=== PATIENT | male | born 1955 | race Asian ===

== ENCOUNTER → 2016-07-28 | Outpatient (CLI) | payer BC ==
[~2016-07-28] MED LIST: AUG875 PO; BENA5TAB2 PO; CARV3.1260 PO; FURO80TA3 PO; INSU100V18 SC; LACT20SO2 PO; NIFE30TA PO
[2016-07-28 09:40] LABS: BASOPHIL # 0.1 10^3/ul (0.0-0.1); BASOPHILS % 0.9 % (0.0-2.0); EOSINOPHILS # 0.4 10^3/ul (0.0-0.5); EOSINOPHILS % 5.9 % (0.0-7.0); HEMATOCRIT 30.1 % (42.0-52.0); HEMOGLOBIN 9.4 g/dl (14.0-18.0); LYMPHOCYTES # 1.7 10^3/ul (0.8-2.9); LYMPHOCYTES % 22.7 % (15.0-51.0); MEAN CORPUSCULAR HGB CONC 31.3 g/dl (32.0-37.0); MEAN CORPUSCULAR VOLUME 76.8 fl (82.0-101.0); MEAN PLATELET VOLUME 9.2 fl (7.4-10.4); MONOCYTE # 0.6 10^3/ul (0.3-0.9); MONOCYTES % 7.5 % (0.0-11.0); NEUTROPHIL # 4.7 10^3/ul (1.6-7.5); PLATELET COUNT 161 10^3/UL (140-440); RED BLOOD COUNT 3.92 10^6/ul (4.70-6.10); RED CELL DISTRIBUTION WIDTH 26.3 % (11.5-14.5); UNCORRECTED WBC 7.4 10^3/ul (4.8-10.8); WHITE BLOOD COUNT 7.4 10^3/ul (4.8-10.8)
[2016-07-28 09:43] LABS: ALBUMIN 3.5 g/dl (3.3-4.9)
[2016-07-28 09:44] LABS: CONDITION 1; LH ANALYZER COMMENTS 1; POTASSIUM 4.5 mmol/L (3.5-5.1); SUSPECT 1
[2016-07-28 09:46] LABS: ALBUMIN/GLOBULIN RATIO 0.7; BILIRUBIN,INDIRECT 0.5 mg/dl (0-1.1); BILIRUBIN,TOTAL 0.5 mg/dl (0.2-1.3); CREATININE 1.72 mg/dl (0.61-1.24); TOTAL PROTEIN 8.5 g/dl (6.1-8.1)
[2016-07-28 09:47] LABS: CALCIUM 8.8 mg/dl (8.4-10.2)
[2016-07-28 11:33] LABS: FERRITIN 22.6 ng/ml (11.1-264.0)
== END | disposition home or self-care (01) ==
LOC: LAB 09:07
PROVIDERS: ATTEND Internal Medicine
DX: D64.89 Other specified anemias (principal); E11.9 Type 2 diabetes mellitus without complications
CPT/HCPCS: 80053; 82607; 82728; 82746; 85025

== ENCOUNTER → 2016-08-29 | Outpatient (CLI) | payer BC ==
[~2016-08-29] MED LIST changes: -NIFE30TA PO; +NIFE30TA43 PO
[2016-08-29 08:26] LABS: BASOPHILS % 0.2 % (0.0-2.0); EOSINOPHILS # 0.5 10^3/ul (0.0-0.5); EOSINOPHILS % 7.3 % (0.0-7.0); HEMATOCRIT 27.5 % (42.0-52.0); HEMOGLOBIN 8.9 g/dl (14.0-18.0); LYMPHOCYTES # 1.6 10^3/ul (0.8-2.9); LYMPHOCYTES % 22.4 % (15.0-51.0); MEAN CORPUSCULAR HEMOGLOBIN 24.6 pg (29.0-33.0); MEAN CORPUSCULAR HGB CONC 32.5 g/dl (32.0-37.0); MEAN CORPUSCULAR VOLUME 75.6 fl (82.0-101.0); MEAN PLATELET VOLUME 8.9 fl (7.4-10.4); MONOCYTE # 0.6 10^3/ul (0.3-0.9); MONOCYTES % 8.6 % (0.0-11.0); NEUTROPHIL # 4.4 10^3/ul (1.6-7.5); NEUTROPHILS % 61.5 % (39.0-77.0); PLATELET COUNT 163 10^3/UL (140-440); RED BLOOD COUNT 3.64 10^6/ul (4.70-6.10); UNCORRECTED WBC 7.1 10^3/ul (4.8-10.8); WHITE BLOOD COUNT 7.1 10^3/ul (4.8-10.8)
[2016-08-29 08:40] LABS: ALBUMIN 3.3 g/dl (3.3-4.9)
[2016-08-29 08:43] LABS: ALBUMIN/GLOBULIN RATIO 0.71; BILIRUBIN,INDIRECT 0.3 mg/dl (0-1.1); BILIRUBIN,TOTAL 0.3 mg/dl (0.2-1.3); CREATININE 1.85 mg/dl (0.61-1.24); POTASSIUM 4.2 mmol/L (3.5-5.1); TOTAL PROTEIN 7.9 g/dl (6.1-8.1)
[2016-08-29 08:44] LABS: CALCIUM 8.5 mg/dl (8.4-10.2)
[2016-08-29 09:00] LABS: CONDITION 1; LH ANALYZER COMMENTS 1
[2016-08-29 09:13] LABS: ADD UMIC YES; URINE BILIRUBIN (Dip) NEGATIVE (NEGATIVE); URINE BLOOD (Dip) 1+ (NEGATIVE); URINE COLOR LT. YELLOW (YELLOW); URINE KETONES (Dip) NEGATIVE (NEGATIVE); URINE LEUKOCYTE ESTERASE (Dip) NEGATIVE (NEGATIVE); URINE NITRITE (Dip) NEGATIVE (NEGATIVE); URINE TOTAL PROTEIN (Dip) 4+ (NEGATIVE); URINE UROBILINOGEN (Dip) 0.2 E.U./dL (0.1-1.0)
[2016-08-29 09:18] LABS: FERRITIN 16.1 ng/ml (11.1-264.0)
[2016-08-29 09:29] LABS: BACTERIA,URINE RARE; URINE RBCS 0-2 /HPF (0)
[2016-08-29 09:48] LABS: FOLATE 9.1 ng/ml (2.8-20.0)
== END | disposition home or self-care (01) ==
LOC: LAB 07:52
PROVIDERS: ATTEND Internal Medicine
DX: D50.9 Iron deficiency anemia, unspecified (principal); E11.9 Type 2 diabetes mellitus without complications
CPT/HCPCS: 80053; 81001; 81003; 82607; 82728; 82746; 85025

== ENCOUNTER → 2016-09-17 | Outpatient (CLI) | payer BC ==
[2016-09-17 08:20] LABS: ADD SCAN DIFF NO
[2016-09-17 08:37] LABS: ALBUMIN 3.1 g/dl (3.3-4.9)
[2016-09-17 08:38] LABS: POTASSIUM 3.9 mmol/L (3.5-5.1)
[2016-09-17 08:40] LABS: ALBUMIN/GLOBULIN RATIO 0.68; BILIRUBIN,INDIRECT 0.3 mg/dl (0-1.1); BILIRUBIN,TOTAL 0.3 mg/dl (0.2-1.3); CREATININE 1.7 mg/dl (0.61-1.24); TOTAL PROTEIN 7.6 g/dl (6.1-8.1)
[2016-09-17 08:41] LABS: CALCIUM 8.2 mg/dl (8.4-10.2)
[2016-09-17 09:43] LABS: ABNORMAL IP MESSAGE 1; BASOPHILS % 0.5 % (0.0-2.0); EOSINOPHILS # 0.5 10^3/ul (0.0-0.5); EOSINOPHILS % 6.9 % (0.0-7.0); HEMOGLOBIN 7.8 g/dl (14.0-18.0); LYMPHOCYTES # 1.4 10^3/ul (0.8-2.9); LYMPHOCYTES % 19.2 % (15.0-51.0); MEAN CORPUSCULAR HEMOGLOBIN 23.9 pg (29.0-33.0); MEAN CORPUSCULAR HGB CONC 28.9 g/dl (32.0-37.0); MEAN CORPUSCULAR VOLUME 82.6 fl (82.0-101.0); MONOCYTE # 0.6 10^3/ul (0.3-0.9); MONOCYTES % 8.2 % (0.0-11.0); NEUTROPHIL # 4.7 10^3/ul (1.6-7.5); NEUTROPHILS % 64.7 % (39.0-77.0); PLATELET COUNT 128 10^3/UL (140-415); RED BLOOD COUNT 3.27 10^6/ul (4.70-6.10); RED CELL DISTRIBUTION WIDTH 21.4 % (11.5-14.5); WHITE BLOOD COUNT 7.3 10^3/ul (4.8-10.8)
== END | disposition home or self-care (01) ==
LOC: LAB 07:48
PROVIDERS: ATTEND Internal Medicine
DX: D64.9 Anemia, unspecified (principal); E11.9 Type 2 diabetes mellitus without complications
CPT/HCPCS: 80053; 85025

== ENCOUNTER 2016-10-24 10:00 | Inpatient (IN) | payer BC ==
[~2016-10-24] VITALS: Ht 180.3 cm; Wt 134.0 kg
[2016-10-24] MEDS ORDERED: SIMV20TA PO (10:58)
[2016-10-24] MEDS ORDERED: INSU100V3 IJ (10:59)
[2016-10-24] MEDS ORDERED: FUROSEMIDE 40 MG INJ IV ONE (11:00)
[2016-10-24 11:23] LABS: ADD SCAN DIFF NO
[2016-10-24 11:26] LABS: ABNORMAL IP MESSAGE 1; BASOPHILS % 0.6 % (0.0-2.0); EOSINOPHILS # 0.4 10^3/ul (0.0-0.5); EOSINOPHILS % 6.9 % (0.0-7.0); HEMATOCRIT 27.7 % (42.0-52.0); LYMPHOCYTES % 18.7 % (15.0-51.0); MEAN CORPUSCULAR HEMOGLOBIN 26.4 pg (29.0-33.0); MEAN CORPUSCULAR HGB CONC 28.9 g/dl (32.0-37.0); MEAN CORPUSCULAR VOLUME 91.4 fl (82.0-101.0); MEAN PLATELET VOLUME 11.8 fl (7.4-10.4); MONOCYTE # 0.6 10^3/ul (0.3-0.9); MONOCYTES % 12.2 % (0.0-11.0); NEUTROPHIL # 3.1 10^3/ul (1.6-7.5); NEUTROPHILS % 61.2 % (39.0-77.0); PLATELET COUNT 115 10^3/UL (140-415); RED BLOOD COUNT 3.03 10^6/ul (4.70-6.10); RED CELL DISTRIBUTION WIDTH 21.5 % (11.5-14.5); WHITE BLOOD COUNT 5.1 10^3/ul (4.8-10.8)
[2016-10-24 11:32] LABS: ADD UMIC YES; URINE BILIRUBIN (Dip) NEGATIVE (NEGATIVE); URINE BLOOD (Dip) TRACE (NEGATIVE); URINE COLOR LT. YELLOW (YELLOW); URINE KETONES (Dip) NEGATIVE (NEGATIVE); URINE LEUKOCYTE ESTERASE (Dip) NEGATIVE (NEGATIVE); URINE NITRITE (Dip) NEGATIVE (NEGATIVE); URINE TOTAL PROTEIN (Dip) 4+ (NEGATIVE); URINE UROBILINOGEN (Dip) 0.2 E.U./dL (0.1-1.0)
[2016-10-24 11:39] LABS: INR 1.05; PROTIME 13.7 Sec (12.2-14.2); PT RATIO 1.1
[2016-10-24 11:40] LABS: ALBUMIN 2.9 g/dl (3.3-4.9); POTASSIUM 3.9 mmol/L (3.5-5.1)
[2016-10-24 11:43] LABS: BACTERIA,URINE FEW
[2016-10-24 11:43] LABS: ALBUMIN/GLOBULIN RATIO 0.63; BILIRUBIN,INDIRECT 0.3 mg/dl (0-1.1); BILIRUBIN,TOTAL 0.3 mg/dl (0.2-1.3); CALCIUM 8.5 mg/dl (8.4-10.2); CREATININE 1.85 mg/dl (0.61-1.24); TOTAL PROTEIN 7.5 g/dl (6.1-8.1)
[2016-10-24 11:54] LABS: TROPONIN-I 0.026 ng/ml (0.00-0.12)
--- NOTE | 2016-10-24 12:00 | ERA ---
ER Documentation Chief Complaint Date/Time DATE: 10/24/16 TIME: 11:53 Chief Complaint SOB FOR THE PAST FEW DAYS WITH ABD DISTENTION, NO CP , MILD ABD PAIN HPI 61-year-old man brought in by for recent increasing shortness of breath, dyspnea on exertion, bilateral lower extremity swelling 1 week. Patient states he has been using his oral furosemide as prescribed as well as his iron supplements but states he has had melena 3 months, denies blood per rectum. Patient has a history of hepatitis C denies recent fevers or chills, no chest pain, no vomiting or diarrhea, no headache or blurry vision. ROS All systems reviewed and are negative except as per history of present illness. Medications Home Meds Reported Medications Insulin Regular, Human (Humulin R) 100 Unit/1 Ml Vial, 45 UNIT IJ AC MEALS, VIAL 10/24/16 Simvastatin* (Zocor*) 20 Mg Tablet, 20 MG PO QHS, #30 TAB 10/24/16 Lactulose* (Lactulose*) 20 Gm/30 Ml Solution, 20 GM PO QHS, ML 05/30/15 Carvedilol* (Carvedilol*) 3.125 Mg Tablet, 3.125 MG PO BID, TAB 05/30/15 Nifedipine* (Adalat CC*) 30 Mg Tablet.sa, 30 MG PO DAILY, TAB.SA 05/30/15 Furosemide* (Furosemide*) 80 Mg Tablet, 80 MG PO DAILY, TAB 05/30/15 Discontinued Reported Medications Benazepril Hcl* (Benazepril Hcl*) 5 Mg Tablet, 5 MG PO DAILY, TAB 05/30/15 Insuln Asp Prt/Insulin Aspart (Novolog Mix 70-30 Vial*) 100 Units/Ml Vial, 32 UNIT SC BID WITH MEALS, VIAL 05/30/15 Discontinued Scripts Amoxicillin-Clavulanate K* (Augmentin*) 875 Mg Tab, 875 MG PO BID, #30 TAB Prov:JENY MORA MD 08/14/15 Allergies Allergies: Coded Allergies: No Known Allergy (Unverified , 05/30/15) PMhx/Soc Obesity, diabetes mellitus, hypertension, hepatitis C, cirrhosis, previous anemia History of Surgery: Yes (APPENDECTOMY, RT ANKLE SURGERY) Anesthesia Reaction: No Hx 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 Disorder: No Hx Respiratory Disorders: No Hx Cardiac Disorders: Yes (HTN) Hx Psychiatric Problems: No Hx Miscellaneous Medical Probl: Yes (HEPATITIS C, DM, CIRRHOSIS) Hx Alcohol Use: No Hx Substance Use: No Hx Tobacco Use: No Smoking Status: Never smoker FmHx Family History: No diabetes Physical Exam Vitals Vital Signs Date Time Temp Pulse Resp B/P Pulse Ox O2 Delivery O2 Flow Rate FiO2 10/24/16 12:45 65 18 156/78 100 Room Air 10/24/16 10:02 98.8 70 22 139/72 96 Physical Exam GENERAL: Well-developed, dyspneic, afebrile HEENT: Dry mucous membranes, pale conjunctivae, no cervical spine tenderness or step-off deformities, no goiter, no jaundice or icterus, extraocular movements intact without pain. No submandibular induration, and no pharyngeal erythema NEURO: Alert and oriented 3, cranial nerves II through XII intact bilaterally, pupils equal round reactive to light, no focal deficits or facial asymmetry, sensation intact distally Strength 5/5 in upper and lower extremities bilaterally CARDIAC: Regular rate and rhythm, no murmurs rubs or gallops LUNGS: Bibasilar crackles, no wheezing or stridor ABDOMEN: Soft, protuberant abdomen without rigidity or guarding, no rebound, no psoas sign no obturator sign. Normoactive bowel sounds SKIN: Warm and dry to touch, no abrasions, contusions, or hematomas, no lacerations, no ecchymosis, no target lesions, and without ulcers EXTREMITIES: No clubbing cyanosis, 3+ pitting edema in the lower extremities bilaterally, calves are bilaterally symmetrical, no Homans sign, no popliteal cord sign. Distal pulses equal and bilateral PSYCH: Normal affect without agitation or irritability Result Diagram: 10/24/16 1043 10/24/16 1043 Results 24 hrs Laboratory Tests Test 10/24/16 10:43 10/24/16 11:04 White Blood Count 5.110^3/ul Red Blood Count 3.0310^6/ul Hemoglobin 8.0g/dl Hematocrit 27.7% Mean Corpuscular Volume 91.4fl Mean Corpuscular Hemoglobin 26.4pg Mean Corpuscular Hemoglobin Concent 28.9g/dl Red Cell Distribution Width 21.5% Platelet Count 64609^3/UL Mean Platelet Volume 11.8fl Neutrophils % 61.2% Lymphocytes % 18.7% Monocytes % 12.2% Eosinophils % 6.9% Basophils % 0.6% Nucleated Red Blood Cells % 0.0/100WBC Neutrophils # 3.110^3/ul Lymphocytes # 1.010^3/ul Monocytes # 0.610^3/ul Eosinophils # 0.410^3/ul Basophils # 0.010^3/ul Nucleated Red Blood Cells # 0.010^3/ul Prothrombin Time 13.7Sec Prothrombin Time Ratio 1.1 INR International Normalized Ratio 1.05 Sodium Level 143mmol/L Potassium Level 3.9mmol/L Chloride Level 106mmol/L Carbon Dioxide Level 29mmol/L Anion Gap 12 Blood Urea Nitrogen 34mg/dl Creatinine 1.85mg/dl Glucose Level 209mg/dl Calcium Level 8.5mg/dl Total Bilirubin 0.3mg/dl Direct Bilirubin 0.00mg/dl Indirect Bilirubin 0.3mg/dl Aspartate Amino Transf (AST/SGOT) 41IU/L Alanine Aminotransferase (ALT/SGPT) 24IU/L Alkaline Phosphatase 136IU/L Ammonia 21umol/l Troponin I 0.026ng/ml Total Protein 7.5g/dl Albumin 2.9g/dl Globulin 4.60g/dl Albumin/Globulin Ratio 0.63 Lipase 222U/L Urine Color LT. YELLOW Urine Clarity CLEAR Urine pH 6.0 Urine Specific [place] 1.025 Urine Ketones NEGATIVE Urine Nitrite NEGATIVE Urine Bilirubin NEGATIVE Urine Urobilinogen 0.2 E.U./dL Urine Leukocyte Esterase NEGATIVE Urine Microscopic RBC 5-10/HPF Urine Microscopic WBC 0-2/HPF Urine Epithelial Cells FEW Urine Bacteria FEW Urine Coarse Granular Casts FEW Urine Hemoglobin TRACE Urine Glucose 0.1%% Urine Total Protein 4+ Current Medications Medications (Trade) Dose Ordered Sig/Irasema Route PRN Reason Start Time Stop Time Status Last Admin Dose Admin Furosemide (Lasix) 80 mg ONCE ONCE IV 10/24/16 11:00 10/24/16 11:01 DC 10/24/16 11:14 [facility] IV line was established patient was placed on cardiac surgeon rhythm strip revealed a sinus rhythm at about 60 bpm with upright P and T waves. Patient was afebrile. EKG performed, read by me: 64 bpm, normal sinus rhythm, normal axis, no acute ST segment changes, narrow QRS complex, with good R-wave progression in precordial leads. One view chest x-ray performed, read by me revealed cardiomegaly and bilateral pulmonary vascular congestion consistent with decompensated heart failure, no pneumothorax, no end of the diaphragm I administered furosemide 80 mg IV 1 for diuresis. CBC revealed anemia with a hemoglobin of 8 this is down from previous levels, electrolytes reveal acute kidney injury and dehydration with a BUN/creatinine of 34/1.9, liver function tests were unremarkable, troponin was negative. Ammonia was low at 21, urine analysis was negative for infection. Critical Care: Time: 37 minutes, this was time separate from other procedures. Treatments/Evaluations: Close monitoring and treatment of unstable vital signs, cardiorespiratory, and neurologic status, while maintaining tight balance of fluid, respiratory, and cardiac interventions. Patient's respiratory symptoms have improved although he does remain symptomatic and may require paracentesis although I will defer this to PMD. Departure Diagnosis: Primary Impression: CHF (congestive heart failure) Qualified Code: I50.41 - Acute combined systolic and diastolic congestive heart failure Additional Impressions: Ascites Qualified Code: R18.8 - Other ascites Cirrhosis Qualified Code: K74.69 - Other cirrhosis of liver Anemia Qualified Code: D64.9 - Anemia, unspecified type Hepatitis C Qualified Code: B17.10 - Acute hepatitis C virus infection without hepatic coma Lower GI bleed Condition: TRENA Rodriguez MD Oct 24, 2016 12:00
--- NOTE | 2016-10-24 12:00 | RADRPT ---
PROCEDURE: Chest Radiograph. CLINICAL INDICATION: Abdominal pain. TECHNIQUE: Single frontal chest radiograph. COMPARISON: None available FINDINGS: The heart is magnified. The cardiomediastinal silhouette is within normal limits. There is mild el evation right hemidiaphragm No infiltrate or effusion is seen. The bones are intact. IMPRESSION: 1. No evidence of acute cardiopulmonary disease. RPTAT: KK .Yash Poe MD, MD Date Time Electronically viewed and signed by .Yash Poe MD, on 10/24/2016 12:00 .B/
[2016-10-24] MEDS ORDERED: DOCUSATE SODIUM 100 MG CAP PO PRN (16:00)
[2016-10-24] MEDS ORDERED: NACL 0.9% 3 ML SYG IV SCH (16:00)
[2016-10-24] MEDS ORDERED: ONDANSETRON 4 MG INJ IV PRN (16:00)
[2016-10-24 16:09] VITALS: BP 147/77; RESP 20
[2016-10-24 16:30] VITALS: PULSE 76
--- NOTE | 2016-10-24 17:14 | HP ---
DATE OF ADMISSION: 10/24/2016 CHIEF COMPLAINT AND HISTORY OF PRESENT ILLNESS: The patient is a 61-year-old gentleman with diabete s mellitus type 2 for the past 12 years with a prior history of hepatitis C secondary to transfusion diagnosed in 2010, treated with good results, who presents with a 4-week history of progressive miguel angel ght gain with shortness of breath and at times periods of confusion. Evaluated in the emergency gerald , found to have massive ascites, and was admitted to telemetry. The patient also has been having d ifficulty with sleep with severe snoring. He has not been evaluated for sleep apnea in the past. MEDICATIONS: 1. Lasix. 2. Carvedilol. 3. Nifedipine. 4. Lantus insulin. He has previously been on benazepril which was discontinued in view of increasing BUN and creatinine . REVIEW OF SYSTEMS: HEAD: No history of headaches, focal weakness, or numbness. No history of strokes. EYES: No blurry vision or glaucoma. ENT: Noncontributory. History of left mandibular mass which was negative and had mandibular stone which improved conservatively. NECK: No history of thyroid disease. CHEST: No bronchitis, hay fever, or asthma. The patient does not smoke. History of sleep apnea. CARDIOVASCULAR: No PND, orthopnea, palpitations. He had a treadmill done about 6 years back that w as negative. GASTROINTESTINAL: History of hepatitis C with history of cirrhosis, hepatic encephalopathy, recent ammonia levels have been normal, and hepatitis C has been completed cured. History of occasional le ft lower quadrant pain. GENITOURINARY: No history of hematuria, kidney stones. MUSCULOSKELETAL: History of left-sided sciatic pain with sciatica. The patient has also had nonhea ling ulcer on the right ankle which has resolved with IV antibiotics and also skin grafting. FAMILY HISTORY: Mother has hypertension. One brother at age 75 of coronary artery disease. F our sisters have diabetes and hypertension. The patient also has been having black stools, but he has been taking some iron supplements as well. ALLERGIES: NO KNOWN ALLERGIES. PAST SURGICAL HISTORY: Also include appendectomy and right ankle surgery. PHYSICAL EXAMINATION: GENERAL: The patient is an obesely built male who is lethargic at times with slurred speech. VITAL SIGNS: Blood pressure 113/72, afebrile, pulse ox 96% on room air. HEENT: Head normocephalic. Mild pallor without cyanosis. CHEST: Clinically clear. HEART: S1, S2 heard with no definite gallops. ABDOMEN: Massive ascites. Hepatomegaly could not be appreciated. EXTREMITIES: 2+ pitting edema bilaterally. Homans sign is negative. Pedal pulsations are palpable . RECTAL: Deferred due to patient discomfort. LABORATORY DATA: WBC count 5.1, hematocrit 27.7, platelet count 115,000. Sodium 143, potassium 3.9 , BUN of 34, creatinine 1.85, alkaline phosphatase 136, serum ammonia level was 21, albumin is 2.9. INR 1.05. UA shows 5 to 10 RBCs, few bacteria. Total protein 4+. Chest x-ray shows elevation of the right hemidiaphragm. No evidence of CHF. IMPRESSION: 1. Massive ascites with dyspnea secondary to that. Doubt congestive heart failure. 2. Diabetes mellitus type 2 with poor compliance with diet. 3. Hypertension. 4. History of hepatic cirrhosis secondary to hepatitis C. Hepatitis C has been treated with good r esults. 5. Obesity. 6. Likely he has obstructive sleep apnea. 7. History of ulcer, right ankle, resolved. PLAN: We will obtain ABG stat. Proceed with ultrasound-guided paracentesis. Obtain GI consultatio n, Dr. Arteaga. Gentle diuresis, closely monitoring renal function tests, observe for signs of infec tion and also for spontaneous peritonitis, and observe also for sepsis. Get serum lactic acid level s. Pulmonary consultation will be requested with Dr. Barrios in due course. Dictated By: JENY MORA MD, SR/PEG Conf#: [id number] DID#: [id number]
--- NOTE | 2016-10-24 17:41 | RADRPT ---
PROCEDURE: US Abdomen (limited). CLINICAL INDICATION: Abdominal pain and distension. TECHNIQUE: Multiple real-time longitudinal and transverse images of the four quadrants of the abdo men were acquired utilizing a curved array transducer. Images were reviewed on a high-resolution PAC S workstation. COMPARISON: None FINDINGS: There is no free fluid in the abdomen. IMPRESSION: 1. No free fluid in the abdomen. 2. Paracentesis was not performed. RPTAT: QQ .Ulices Silva MD, MD Date Time Electronically viewed and signed by .Ulices Silva MD, MD on 10/24/2016 17:41 .R/
[2016-10-24 18:17] VITALS: Ht 180.3 cm; Wt 134.0 kg
[2016-10-24 19:19] LABS: Allen Test ACCEPTAB; Arterial Base Excess 2.9 mmol/L (-3.0-3); Arterial COHb 0.3 % (0.0-3.0); Arterial Fraction of Oxyhgb 93.2 % (93.0-99.0); Arterial MetHb 0.3 % (0.0-1.5); Arterial Total Hemglobin 9.4 g/dl (12.0-18.0); MODE ROOM AIR
[2016-10-24 20:00] VITALS: BP 145/75; RESP 18
[2016-10-24 20:24] VITALS: PULSE 67
[2016-10-24] MEDS ORDERED: ENOXAPARIN 30 MG/0.3 ML SYG SC SCH (21:00)
[2016-10-24] MEDS: LACTULOSE 30ML CUP PO SCH (21:27)
[2016-10-24] MEDS: ATORVASTATIN 10 MG TAB PO SCH (21:27)
[2016-10-24] MEDS ORDERED: GLUCAGON 1 MG INJ IM PRN (21:30)
[2016-10-24] MEDS ORDERED: DEXTROSE 50% 50 ML SYRINGE IV PRN ×2 (21:30)
[2016-10-24] MEDS ORDERED: GLUCOSE GEL 15 GRAM TUBE BUCCAL PRN (21:30)
[2016-10-24] MEDS ORDERED: GLUCOSE GEL 15 GRAM TUBE PO PRN ×2 (21:30)
[2016-10-24] MEDS ORDERED: INSULIN GLARGINE [LANtus] 3 ML PEN SC SCH (22:00)
[2016-10-24] MEDS: INSULIN ASPART [NOVOLOG] 3 ML PEN SC SCH (22:54)
[2016-10-25] VITALS (15 sets, daily range): BP systolic 122–142; BP diastolic 60–70; PULSE 38–75; RESP 18–21
[2016-10-25] MEDS: ACCU-CHEK XX SCH (02:00)
[2016-10-25] MEDS: PANTOPRAZOLE 40 MG INJ IV SCH (05:22)
[2016-10-25 07:18] LABS: ADD SCAN DIFF NO
[2016-10-25 07:30] LABS: ABNORMAL IP MESSAGE 1; BASOPHILS % 0.5 % (0.0-2.0); EOSINOPHILS # 0.3 10^3/ul (0.0-0.5); HEMATOCRIT 27.5 % (42.0-52.0); HEMOGLOBIN 7.8 g/dl (14.0-18.0); LYMPHOCYTES # 0.9 10^3/ul (0.8-2.9); LYMPHOCYTES % 21.2 % (15.0-51.0); MEAN CORPUSCULAR HEMOGLOBIN 26.1 pg (29.0-33.0); MEAN CORPUSCULAR HGB CONC 28.4 g/dl (32.0-37.0); MEAN PLATELET VOLUME 11.6 fl (7.4-10.4); MONOCYTE # 0.4 10^3/ul (0.3-0.9); MONOCYTES % 10.1 % (0.0-11.0); NEUTROPHIL # 2.5 10^3/ul (1.6-7.5); NEUTROPHILS % 60.7 % (39.0-77.0); PLATELET COUNT 96 10^3/UL (140-415); RED BLOOD COUNT 2.99 10^6/ul (4.70-6.10); RED CELL DISTRIBUTION WIDTH 21.4 % (11.5-14.5); WHITE BLOOD COUNT 4.2 10^3/ul (4.8-10.8)
[2016-10-25 07:41] LABS: INR 1.07; PROTIME 13.9 Sec (12.2-14.2); PT RATIO 1.1
[2016-10-25 07:42] LABS: PARTIAL THROMBOPLASTIN TIME 38.7 Sec (25.0-35.0)
[2016-10-25 07:51] LABS: ALBUMIN 2.8 g/dl (3.3-4.9); ALBUMIN/GLOBULIN RATIO 0.68; CALCIUM 7.9 mg/dl (8.4-10.2); CREATININE 1.75 mg/dl (0.61-1.24); MAGNESIUM 2.3 mg/dl (1.7-2.5); POTASSIUM 3.6 mmol/L (3.5-5.1); TOTAL PROTEIN 6.9 g/dl (6.1-8.1)
[2016-10-25 08:18] LABS: THYROID STIMULATING HORMONE 1.14 MIU/L (0.465-4.680)
[2016-10-25] MEDS: HEPARIN 5,000 UNIT/0.5 ML VIAL SC SCH ×2 (08:35→20:18)
[2016-10-25] MEDS: INSULIN ASPART [NOVOLOG] 3 ML PEN SC SCH ×4 (08:35→20:17)
[2016-10-25] MEDS: NIFEdipine (XL) 30 MG TAB PO SCH (08:58)
--- NOTE | 2016-10-25 10:32 | CONS ---
DATE OF ADMISSION: 10/24/2016 DATE OF CONSULTATION: 10/24/2016 TYPE OF CONSULTATION: Gastroenterology. Dear Dr. Mora: Thank you for asking me to evaluate your patient. HISTORY OF PRESENT ILLNESS: He is a 61-year-old gentleman with a history of diabetes mellitus type 2, a history of hepatitis C, successfully treated, who presents with a history of progressive weight gain and shortness of breath. The patient also is lethargic. He sleeps on and off, as per the son . No nausea, no vomiting, no GI bleeding. No chest pain. 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 He is also snori ng during sleep. MEDICATIONS: The patient is on Lasix, carvedilol, nifedipine and Lantus insulin. REVIEW OF SYSTEMS: Negative, other than significant weight gain within the last few months, as per the family. FAMILY HISTORY: Mother had hypertension. One brother at the age of 75 of coronary artery disea se. There is a questionable history of black stools, but he is on iron tablets. ALLERGIES: NO KNOWN DRUG ALLERGIES. PAST SURGICAL HISTORY: Appendectomy and right ankle surgery. PHYSICAL EXAMINATION: GENERAL: He definitely has a short neck. He is sleepy, overweight. CARDIOVASCULAR: No murmur, gallop or click. LUNGS: Air entry diminished at both bases, but no wheeze heard. ABDOMEN: Soft, morbidly obese. EXTREMITIES: 1 to 2+ pedal edema. Pulses are well felt. CENTRAL NERVOUS SYSTEM: Grossly within normal limits. LABORATORY: Hematocrit is 27, platelet count is 115. Alkaline phosphatase was mildly elevated. Al bumin was 2.99. INR was within normal limits. IMPRESSION: 1. Hepatitis C secondary to a blood transfusion, successfully treated with Harvoni. 1. Diabetes mellitus type 2. 2. Hypertension. 3. Overweight. 4. Shortness of breath, with lethargy. Rule out sleep apnea. PLAN: 1. The patient definitely needs a pulmonary consult and a sleep study. 2. Will also get a 2D echo done to make sure that his ejection fraction is also good. 3. Weight reduction. If everything is stable, the family has shown the inclination for bariatric surgery, so I told him o nce he is stable, will get a bariatric surgical consult. The patient definitely needs to lose weight. Will also work him up for anemia. Dictated By: STUART CASTELLANOS/PEG Conf#: [id number] DID#: [id number] CC: JENY MORA MD;*End*
--- NOTE | 2016-10-25 10:43 | CONS ---
Date/Time of Note Date/Time of Note DATE: 10/25/16 TIME: 10:43 Consultation Date/Type/Reason Admit Date/Time Oct 24, 2016 at 12:07 Date of Consultation: Oct 25, 2016 Type of Consultation: Pulmonary consult Reason for Consultation Full consult dictated. Recommendations are to increase Lasix to 40 mg IV every 12 hours, patient instructed to lose weight, will need to have a sleep study on outpatient basis. And weight loss surgery also is recommended. Social History Smoking Status: Never smoker Exam/Review of Systems Vital Signs Vitals Vital Signs Date Time Temp Pulse Resp B/P Pulse Ox O2 Delivery O2 Flow Rate FiO2 10/25/16 08:56 68 10/25/16 08:15 Nasal Cannula 2.0 10/25/16 08:00 97.8 21 137/63 98 10/25/16 03:03 30 Intake and Output 10/24/16 10/24/16 10/25/16 15:00 23:00 07:00 Intake Total 300 ml Balance 300 ml Results Result Diagram: 10/25/16 0556 10/25/16 0556 Results 24 hrs Laboratory Tests Test 10/24/16 11:04 10/24/16 15:42 10/24/16 19:40 10/24/16 22:42 Urine Color LT. YELLOW Urine Clarity CLEAR Urine pH 6.0 Urine Specific [place] 1.025 Urine Ketones NEGATIVE Urine Nitrite NEGATIVE Urine Bilirubin NEGATIVE Urine Urobilinogen 0.2 E.U./dL Urine Leukocyte Esterase NEGATIVE Urine Microscopic RBC 5-10 Urine Microscopic WBC 0-2 Urine Epithelial Cells FEW Urine Bacteria FEW Urine Coarse Granular Casts FEW Urine Hemoglobin TRACE Urine Glucose 0.1% H Urine Total Protein 4+ H Blood Gas Specimen Source Blood arterial Arterial Blood Date Drawn 10/24/2016 7:10:29 PM Arterial Blood pH (Temp corrected) 7.409 Arterial Blood pCO2 (Temp correct) 45.3 H Arterial Blood pO2 (Temp corrected) 72.5 L Arterial Blood HCO3 28.0 H Arterial Blood Base Excess 2.9 Arterial Blood Oxygen Saturation 93.8 L Oswaldo Test ACCEPTAB Arterial Blood Gas Puncture Site Right Radial Arterial Blood Carboxyhemoglobin 0.3 Arterial Blood Methemoglobin 0.3 Blood Gas A-a O2 Differential 23.0 Oxyhemoglobin Percent 93.2 Total Hemoglobin 9.4 L Blood Gas Temperature 37.0 Blood Gas Modality ROOM AIR FiO2 21.0 Blood Gas Notified Whom LW Blood Gas Notified Time 10/24/2016 7:18:57 PM Lactic Acid Level 1.1 Bedside Glucose 206 Test 10/25/16 02:38 10/25/16 05:56 10/25/16 08:14 Bedside Glucose 284 H 243 H White Blood Count 4.2 L Red Blood Count 2.99 L Hemoglobin 7.8 L Hematocrit 27.5 L Mean Corpuscular Volume 92.0 Mean Corpuscular Hemoglobin 26.1 L Mean Corpuscular Hemoglobin Concent 28.4 L Red Cell Distribution Width 21.4 H Platelet Count 96 L Mean Platelet Volume 11.6 H Neutrophils % 60.7 Lymphocytes % 21.2 Monocytes % 10.1 Eosinophils % 7.0 Basophils % 0.5 Nucleated Red Blood Cells % 0.0 Neutrophils # 2.5 Lymphocytes # 0.9 Monocytes # 0.4 Eosinophils # 0.3 Basophils # 0.0 Nucleated Red Blood Cells # 0.0 Prothrombin Time 13.9 Prothrombin Time Ratio 1.1 INR International Normalized Ratio 1.07 Activated Partial Thromboplast Time 38.7 H Sodium Level 139 Potassium Level 3.6 Chloride Level 107 Carbon Dioxide Level 30 Anion Gap 6 L Blood Urea Nitrogen 32 H Creatinine 1.75 H Glucose Level 290 H Calcium Level 7.9 L Magnesium Level 2.3 Total Bilirubin 0.0 L Direct Bilirubin 0.00 Indirect Bilirubin 0.0 Aspartate Amino Transf (AST/SGOT) 38 Alanine Aminotransferase (ALT/SGPT) 29 Alkaline Phosphatase 162 H C-Reactive Protein 0.7 B-Type Natriuretic Peptide 573 H Total Protein 6.9 Albumin 2.8 L Globulin 4.10 H Albumin/Globulin Ratio 0.68 Triglycerides Level 288 H Cholesterol Level 146 LDL Cholesterol, Calculated 52 HDL Cholesterol 36 Cholesterol/HDL Ratio 4.0 Thyroid Stimulating Hormone (TSH) 1.140 Thyroxine (T4) 6.2 Medications Medications Current Medications Carvedilol (Coreg) 3.125 mg BID PO Last administered on 10/25/16 08:58; Admin Dose 3.125 MG; Start 10/24/16 at 21:00 Lactulose (Enulose) 20 gm QHS PO Last administered on 10/24/16 21:27; Admin Dose 20 GM; Start 10/24/16 at 21:00 Nifedipine (Procardia Xl) 30 mg DAILY PO Last administered on 10/25/16 08:58; Admin Dose 30 MG; Start 10/25/16 at 09:00 Atorvastatin Calcium (Lipitor) 10 mg DAILY@21 PO Last administered on 21:27; Admin Dose 10 MG; Start 10/24/16 at 21:00 Ondansetron HCl (Zofran Inj) 4 mg Q6H PRN IV NAUSEA AND/OR VOMITING; Start at 16:00 Acetaminophen (Tylenol Tab) 650 mg Q6H PRN PO PAIN LEVEL 1-3 OR FEVER; Start at 16:00 Docusate Sodium (Colace) 100 mg Q12H PRN PO CONSTIPATION; Start 10/24/16 at 16: 00 Pantoprazole (Protonix Iv) 40 mg DAILY@06 IV Last administered on 10/25/16 05: 22; Admin Dose 40 MG; Start 10/25/16 at 06:00 Diagnostic Test (Pha) (Accu-Chek) 1 ea 02 XX ; Start 10/25/16 at 02:00 Miscellaneous Information 1 ea NOTE XX ; Start 10/24/16 at 21:30 Glucose (Glutose) 15 gm Q15M PRN PO DECREASED GLUCOSE; Start 10/24/16 at 21:30 Glucose (Glutose) 22.5 gm Q15M PRN PO DECREASED GLUCOSE; Start 10/24/16 at 21: 30 Dextrose (D50w Syringe) 25 ml Q15M PRN IV DECREASED GLUCOSE; Start 10/24/16 at 21:30 Dextrose (D50w Syringe) 50 ml Q15M PRN IV DECREASED GLUCOSE; Start 10/24/16 at 21:30 Glucagon (Glucagen) 1 mg Q15M PRN IM DECREASED GLUCOSE; Start 10/24/16 at 21:30 Glucose (Glutose) 15 gm Q15M PRN BUCCAL DECREASED GLUCOSE; Start 10/24/16 at 21 :30 Insulin Glargine (Lantus) 10 unit DAILY@20 SC Last administered on 10/24/16 22 :53; Admin Dose 10 UNIT; Start 10/24/16 at 22:00 Heparin Sodium (Porcine) (Heparin (5000 Units/0.5 ml)) 5,000 unit BID SC Last administered on 10/25/16 08:35; Admin Dose 5,000 UNIT; Start 10/25/16 at 09:00 WALDO FRASER Oct 25, 2016 10:43
[2016-10-25] MEDS: FUROSEMIDE 40 MG INJ IV SCH ×2 (11:37→18:06)
[2016-10-25] MEDS ORDERED: BARIUM SULF 2% 450 ML BTL (BERRY SMOOTHIE) PO ONE (12:00)
--- NOTE | 2016-10-25 12:48 | CONS ---
Date/Time of Note Date/Time of Note DATE: 10/25/16 TIME: 12:46 Assessment/Plan Assessment/Plan Additional Assessment/Plan IMPRESSION: 1. Hepatitis C secondary to a blood transfusion, successfully treated with Harvoni. 1. Diabetes mellitus type 2. 2. Hypertension. 3. Overweight. 4. Shortness of breath, with lethargy. Rule out sleep apnea. 5. Anemia 6. Mild elevation of ammonia 56 upper limit at this facility is 30 Plan Rifaximin 550 twice daily Continue present care Workup for anemia and TSH level Discussed with the patient and also with Dr. Brice Consultation Date/Type/Reason Admit Date/Time Oct 24, 2016 at 12:07 Initial Consult Date 10/25/16 Type of Consultation: Pulmonary consult 24 HR Interval Summary Free Text/Dictation Complaints of shortness of breath Patient could not tolerate BiPAP Exam/Review of Systems Vital Signs Vitals Vital Signs Date Time Temp Pulse Resp B/P Pulse Ox O2 Delivery O2 Flow Rate FiO2 10/25/16 12:01 63 10/25/16 11:29 97.9 18 129/64 96 10/25/16 08:15 Nasal Cannula 2.0 10/25/16 03:03 30 Intake and Output 10/24/16 10/24/16 10/25/16 15:00 23:00 07:00 Intake Total 300 ml Balance 300 ml Exam Constitutional: alert, oriented, well developed Psych: nl mood/affect, no complaints Head: atraumatic, normocephalic Eyes: EOMI, PERRL, nl conjunctiva, nl lids, nl sclera ENMT: nl external ears & nose, nl lips & teeth, nl nasal mucosa & septum Neck: non-tender, supple Respiratory: clear to auscultation, normal air movement Cardiovascular: nl pulses, regular rate and rhythm Gastrointestinal: nl liver, spleen, non-tender, soft Musculoskeletal: nl extremities to inspection, nl gait and stance Extremities: normal pulses 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: AMPHIBIAN CREWMEMBER II-XII intact, nl mental status, nl speech, nl strength Skin: nl turgor, No rash or lesions Lymph: nl lymph nodes Results Result Diagram: 10/25/16 0556 10/25/16 0556 Results 24 hrs Laboratory Tests Test 10/24/16 15:42 10/24/16 19:40 10/24/16 22:42 10/25/16 02:38 Blood Gas Specimen Source Blood arterial Arterial Blood Date Drawn 10/24/2016 7:10:29 PM Arterial Blood pH (Temp corrected) 7.409 Arterial Blood pCO2 (Temp correct) 45.3 H Arterial Blood pO2 (Temp corrected) 72.5 L Arterial Blood HCO3 28.0 H Arterial Blood Base Excess 2.9 Arterial Blood Oxygen Saturation 93.8 L Oswaldo Test ACCEPTAB Arterial Blood Gas Puncture Site Right Radial Arterial Blood Carboxyhemoglobin 0.3 Arterial Blood Methemoglobin 0.3 Blood Gas A-a O2 Differential 23.0 Oxyhemoglobin Percent 93.2 Total Hemoglobin 9.4 L Blood Gas Temperature 37.0 Blood Gas Modality ROOM AIR FiO2 21.0 Blood Gas Notified Whom LW Blood Gas Notified Time 10/24/2016 7:18:57 PM Lactic Acid Level 1.1 Bedside Glucose 206 284 H Test 10/25/16 05:56 10/25/16 08:14 10/25/16 10:25 10/25/16 11:39 White Blood Count 4.2 L Red Blood Count 2.99 L Hemoglobin 7.8 L Hematocrit 27.5 L Mean Corpuscular Volume 92.0 Mean Corpuscular Hemoglobin 26.1 L Mean Corpuscular Hemoglobin Concent 28.4 L Red Cell Distribution Width 21.4 H Platelet Count 96 L Mean Platelet Volume 11.6 H Neutrophils % 60.7 Lymphocytes % 21.2 Monocytes % 10.1 Eosinophils % 7.0 Basophils % 0.5 Nucleated Red Blood Cells % 0.0 Neutrophils # 2.5 Lymphocytes # 0.9 Monocytes # 0.4 Eosinophils # 0.3 Basophils # 0.0 Nucleated Red Blood Cells # 0.0 Prothrombin Time 13.9 Prothrombin Time Ratio 1.1 INR International Normalized Ratio 1.07 Activated Partial Thromboplast Time 38.7 H Sodium Level 139 Potassium Level 3.6 Chloride Level 107 Carbon Dioxide Level 30 Anion Gap 6 L Blood Urea Nitrogen 32 H Creatinine 1.75 H Glucose Level 290 H Calcium Level 7.9 L Magnesium Level 2.3 Total Bilirubin 0.0 L Direct Bilirubin 0.00 Indirect Bilirubin 0.0 Aspartate Amino Transf (AST/SGOT) 38 Alanine Aminotransferase (ALT/SGPT) 29 Alkaline Phosphatase 162 H C-Reactive Protein 0.7 B-Type Natriuretic Peptide 573 H Total Protein 6.9 Albumin 2.8 L Globulin 4.10 H Albumin/Globulin Ratio 0.68 Triglycerides Level 288 H Cholesterol Level 146 LDL Cholesterol, Calculated 52 HDL Cholesterol 36 Cholesterol/HDL Ratio 4.0 Thyroid Stimulating Hormone (TSH) 1.140 Thyroxine (T4) 6.2 Bedside Glucose 243 H 190 Ammonia 56 #H Medications Medications Current Medications Carvedilol (Coreg) 3.125 mg BID PO Last administered on 10/25/16 08:58; Admin Dose 3.125 MG; Start 10/24/16 at 21:00 Lactulose (Enulose) 20 gm QHS PO Last administered on 10/24/16 21:27; Admin Dose 20 GM; Start 10/24/16 at 21:00 Nifedipine (Procardia Xl) 30 mg DAILY PO Last administered on 10/25/16 08:58; Admin Dose 30 MG; Start 10/25/16 at 09:00 Atorvastatin Calcium (Lipitor) 10 mg DAILY@21 PO Last administered on 21:27; Admin Dose 10 MG; Start 10/24/16 at 21:00 Ondansetron HCl (Zofran Inj) 4 mg Q6H PRN IV NAUSEA AND/OR VOMITING; Start at 16:00 Acetaminophen (Tylenol Tab) 650 mg Q6H PRN PO PAIN LEVEL 1-3 OR FEVER; Start at 16:00 Docusate Sodium (Colace) 100 mg Q12H PRN PO CONSTIPATION; Start 10/24/16 at 16: 00 Pantoprazole (Protonix Iv) 40 mg DAILY@06 IV Last administered on 10/25/16 05: 22; Admin Dose 40 MG; Start 10/25/16 at 06:00 Diagnostic Test (Pha) (Accu-Chek) 1 ea 02 XX ; Start 10/25/16 at 02:00 Miscellaneous Information 1 ea NOTE XX ; Start 10/24/16 at 21:30 Glucose (Glutose) 15 gm Q15M PRN PO DECREASED GLUCOSE; Start 10/24/16 at 21:30 Glucose (Glutose) 22.5 gm Q15M PRN PO DECREASED GLUCOSE; Start 10/24/16 at 21: 30 Dextrose (D50w Syringe) 25 ml Q15M PRN IV DECREASED GLUCOSE; Start 10/24/16 at 21:30 Dextrose (D50w Syringe) 50 ml Q15M PRN IV DECREASED GLUCOSE; Start 10/24/16 at 21:30 Glucagon (Glucagen) 1 mg Q15M PRN IM DECREASED GLUCOSE; Start 10/24/16 at 21:30 Glucose (Glutose) 15 gm Q15M PRN BUCCAL DECREASED GLUCOSE; Start 10/24/16 at 21 :30 Heparin Sodium (Porcine) (Heparin (5000 Units/0.5 ml)) 5,000 unit BID SC Last administered on 10/25/16t 08:35; Admin Dose 5,000 UNIT; Start 10/25/16 at 09:00 Insulin Glargine (Lantus) 20 unit DAILY@20 SC ; Start 10/25/16 at 20:00 STUART STANLEY MD Oct 25, 2016 12:47
--- NOTE | 2016-10-25 13:09 | PN ---
DATE: SUBJECTIVE: The patient has no chest pain. Complains of mild shortness of breath. According to th e patient's , he slept for about 3 hours with CPAP and he took it out. Complains of mild abdomi nal pain mostly in the right upper quadrant. No constipation, diarrhea. No leg cramps. PHYSICAL EXAMINATION: GENERAL: The patient is awake, alert. VITAL SIGNS: Temperature 97.9, heart rate 60 per minute, blood pressure 120/64, O2 saturation 96%. HEENT: Head normocephalic. Moderate pallor without cyanosis. Tongue is coated, dry. NECK: Supple. No thyromegaly, bruits or lymphadenopathy. CHEST: Clinically clear. HEART: S1, S2 heard with no definite gallops. ABDOMEN: Moderately obese. No definite hepatosplenomegaly. EXTREMITIES: Trace edema. Homans sign is negative. LABORATORY DATA: Sodium 139, potassium 3.6, BUN 32, creatinine 1.75, glucose 290. Alkaline phospha tase 162. BNP 573. C-reactive protein 0.7. Triglyceride 288, LDL 52. TSH 1.14. Ultrasound of the abdomen was performed yesterday which showed no free fluid. Dr. Arteaga's GI consultation and recommendations, Dr. Wade's pulmonary consultation and recommendat ions greatly appreciated. IMPRESSION: 1. Constellation of symptoms with increasing sleepiness all through the day with snoring, with rece nt weight gain, consistent with obstructive sleep apnea. 2. Underlying metabolic syndrome with morbid obesity. 3. History of cirrhosis with portal hypertension, with prior history of hepatitis C, treated. 4. Hypertension. 5. Chronic kidney disease secondary to diabetes mellitus type 2. 6. Diabetes mellitus type 2. PLAN: The patient has had a prior cardiac workup including angiogram done in 2009, which was negati ve, but he has significant risk factors for same and had been seen by Dr. Sutton 2 years back. We will repeat another echocardiogram and workup for coronary artery disease. I agree with the recomme ndations for aggressive weight reduction towards the same goal. Will consider gastric sleeve after stabilizing the overall medical condition. The patient is also anemic and will need workup for GI b lood loss and will consider colonoscopy in due course along with an endoscopy after discussion with Dr. Arteaga. I had numerous discussions with the patient regarding the need for losing weight and ap propriate diet for control of diabetes mellitus. We will increase the Lantus insulin and also reque st dietary consultation. Dictated By: JENY MORA MD SR/PEG Conf#: [id number] DID#: [id number]
[2016-10-25] MEDS: ACETAMINOPHEN 325 MG TAB PO PRN (17:17)
[2016-10-25] MEDS ORDERED: INSULIN GLARGINE [LANtus] 3 ML PEN SC SCH (20:00)
[2016-10-25] MEDS: ATORVASTATIN 10 MG TAB PO SCH (20:14)
[2016-10-25] MEDS: RIFAXIMIN 550 MG TAB PO SCH (20:14)
[2016-10-25] MEDS: LACTULOSE 30ML CUP PO SCH (20:14)
[2016-10-25] MEDS: INSULIN GLARGINE [LANtus] 3 ML PEN SC SCH (20:17)
[2016-10-26] VITALS (15 sets, daily range): BP systolic 121–159; BP diastolic 48–85; PULSE 21–74; RESP 16–22
[2016-10-26] MEDS: ACCU-CHEK XX SCH (01:45)
[2016-10-26] MEDS: FUROSEMIDE 40 MG INJ IV SCH ×2 (06:06→17:05)
[2016-10-26] MEDS: PANTOPRAZOLE 40 MG INJ IV SCH (06:06)
[2016-10-26 07:36] LABS: ADD SCAN DIFF NO
[2016-10-26 07:38] LABS: ABNORMAL IP MESSAGE 1; BASOPHILS % 0.4 % (0.0-2.0); EOSINOPHILS # 0.4 10^3/ul (0.0-0.5); HEMOGLOBIN 7.9 g/dl (14.0-18.0); LYMPHOCYTES # 1.1 10^3/ul (0.8-2.9); LYMPHOCYTES % 23.8 % (15.0-51.0); MEAN CORPUSCULAR HEMOGLOBIN 25.9 pg (29.0-33.0); MEAN CORPUSCULAR HGB CONC 28.2 g/dl (32.0-37.0); MEAN CORPUSCULAR VOLUME 91.8 fl (82.0-101.0); MEAN PLATELET VOLUME 11.9 fl (7.4-10.4); MONOCYTE # 0.5 10^3/ul (0.3-0.9); MONOCYTES % 10.5 % (0.0-11.0); NEUTROPHIL # 2.6 10^3/ul (1.6-7.5); NEUTROPHILS % 57.1 % (39.0-77.0); PLATELET COUNT 95 10^3/UL (140-415); RED BLOOD COUNT 3.05 10^6/ul (4.70-6.10); RED CELL DISTRIBUTION WIDTH 21.2 % (11.5-14.5); WHITE BLOOD COUNT 4.5 10^3/ul (4.8-10.8)
[2016-10-26 07:42] LABS: RETICULOCYTE COUNT % 4.4 % (0.5-1.5)
[2016-10-26 08:11] LABS: POTASSIUM 3.5 mmol/L (3.5-5.1)
[2016-10-26 08:14] LABS: CREATININE 1.9 mg/dl (0.61-1.24)
[2016-10-26 08:15] LABS: CALCIUM 7.8 mg/dl (8.4-10.2); MAGNESIUM 2.1 mg/dl (1.7-2.5)
[2016-10-26] MEDS: INSULIN ASPART [NOVOLOG] 3 ML PEN SC SCH ×4 (08:26→20:47)
[2016-10-26] MEDS: HEPARIN 5,000 UNIT/0.5 ML VIAL SC SCH ×2 (08:35→20:48)
[2016-10-26] MEDS: RIFAXIMIN 550 MG TAB PO SCH ×2 (08:36→20:45)
[2016-10-26] MEDS: NIFEdipine (XL) 30 MG TAB PO SCH (08:45)
[2016-10-26 08:55] LABS: FERRITIN 25.4 ng/ml (11.1-264.0)
--- NOTE | 2016-10-26 09:44 | RADRPT ---
PROCEDURE: CT abdomen and pelvis without contrast. CLINICAL INDICATION: Abdominal distension TECHNIQUE: CT scan of the abdomen and pelvis with oral but without intravenous contrast was perfor med and is reconstructed at 2.5 mm contiguous axial intervals from the dome of the diaphragm to the inferior pubic rami.. The patient was scanned without intravenous contrast. Sagittal and coronal r eformatted images were obtained from the axial source images. The calculated radiation dose measures 1493 mGy centimeters. The CTDI measures 824 mGy. COMPARISON: None. FINDINGS: Lung bases are clear of any infiltrate. No effusion is present. There are calcified nonenlarged teran bcarinal nodes with small pleural based granulomata in the lungs. Noted are coronary artery calcifi cations. Liver is shrunken with a nodular contour compatible with cirrhosis. No mass or ductal dilatation is present. Patency of the portal vein is indeterminate on this limited precontrast study. There are varices. No gallstones are visualized. No splenic, adrenal or pancreatic abnormalities present. Kidneys are of normal size and contour. No hydronephrosis, calculus or masses seen. Ureters are o f normal course and caliber with no stone. No bladder mass or stone is present. Prostate and semina l vesicles are normal. There is no aneurysm. No adenopathy is present. No bowel mass or obstruction is present. There is questionable diffuse thickening of the wall of the stomach. This may be secondary to under distension. The appendix is not confidently visualized , however, no inflamed appendix is seen. No phlegmon or pneumoperitoneum is visualized. There is tr kortney ascites. Senescent degenerative changes are seen in the spine. IMPRESSION: No evidence of urolithiasis, obstructive uropathy, diverticulitis or appendicitis. Old granulomatous disease. Cirrhotic liver. Varices - rule out portal hypertension. Patency of the portal vein is indetermina te on this precontrast study. Question diffuse thickening wall of stomach versus under distension. Consider endoscopy for more de finitive diagnosis. Trace ascites. Senescent degenerative changes lumbar spine. .Lino Salas MD, Date Time Electronically viewed and signed by .Lino Salas MD, on 10/26/2016 09:44 .A/
--- NOTE | 2016-10-26 11:37 | CONS ---
Date/Time of Note Date/Time of Note DATE: 10/26/16 TIME: 11:32 Assessment/Plan Assessment/Plan Additional Assessment/Plan Chest x-ray was reviewed from yesterday which is showing cardio megaly with very mild pulmonary vascular congestion. Assessment recommendations; next 1. Patient admitted for significant edema as well as shortness of breath likely has underlying pulmonary hypertension due to underlying sleep apnea and obesity. 2. Renal insufficiency. 3. Likely right heart failure. Start Lasix 40 mg IV every 12 hours, patient did have a sleep study done on outpatient basis. A 2D echocardiogram is pending. Will monitor renal function. Patient needs to lose weight and is a good candidate for bariatric surgery. Consultation Date/Type/Reason Admit Date/Time Oct 24, 2016 at 12:07 Date of Consultation: Oct 25, 2016 Type of Consultation: Pulmonary Reason for Consultation Pulmonary consultation obtained for evaluation of shortness of breath and edema. This is a redo of my note on this patient, note was dictated yesterday however he did not get through for some reason. History presenting any; patient is a pleasant 61-year-old [place]e male who came into the emergency room yesterday with a several weeks history of increasing shortness of breath and lower extremity edema. Patient denies having any chest pain any angina wheezing cough or sputum production. She has been complaining of exertional dyspnea for the last several weeks with significant increase over the last couple of days. Denies any coughing any sputum production hemoptysis. Upon evaluation chest x-ray was done which is showing cardiomegaly with pulmonary edema. Patient has been admitted was given Lasix with some improvement in symptoms. According to the patient as well as his the patient having significant excessive daytime sleepiness over the last several months as well as weight gain. Past medical history; 1. 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 2. Obesity. 3. Hypertension. 4. Possible underlying sleep apnea. 5. No known history of coronary artery disease. 6. Remote history of appendectomy. Medications; were reviewed. Allergies; are none. Social history; patient quit smoking 30 years ago. Most of alcohol or drug abuse. Family history; he is he has grown children. Various family members of diabetes in the family. 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 Review of systems; supple neck, JVD difficult to see because of short neck. No thyromegaly, no neck masses. Patient has good dentition. Pupils are midsize reactive to light. Chest exam; diminished but clear vessel. S1-S2 audible, no murmurs. Regular rhythm. Abdomen exam; protuberant, nontender. No organomegaly. Bowel sounds audible. Extremity exam; 2+ pitting edema lower extremities bilaterally. Pulses 1+ bilaterally. No clubbing. TELEPHONIC NURSE exam; cranial nerves are intact, no motor deficit. Psychological: nl mood/affect, no complaints Social History Smoking Status: Never smoker Exam/Review of Systems Vital Signs Vitals Vital Signs Date Time Temp Pulse Resp B/P Pulse Ox O2 Delivery O2 Flow Rate FiO2 10/26/16 09:05 21 10/26/16 07:45 Nasal Cannula 2.0 10/26/16 07:26 97.9 18 121/48 100 10/25/16 03:03 30 Intake and Output 10/25/16 10/25/16 10/26/16 15:00 23:00 07:00 Intake Total 800 ml 600 ml Output Total 1100 ml Balance 800 ml -500 ml Results Result Diagram: 10/26/16 0610 10/26/16 0610 Results 24 hrs Laboratory Tests Test 10/25/16 11:39 10/25/16 17:21 10/25/16 20:12 10/26/16 01:43 Bedside Glucose 190 210 181 203 Test 10/26/16 06:10 10/26/16 08:17 White Blood Count 4.5 L Red Blood Count 3.05 L Hemoglobin 7.9 L Hematocrit 28.0 L Mean Corpuscular Volume 91.8 Mean Corpuscular Hemoglobin 25.9 L Mean Corpuscular Hemoglobin Concent 28.2 L Red Cell Distribution Width 21.2 H Platelet Count 95 L Mean Platelet Volume 11.9 H Neutrophils % 57.1 Lymphocytes % 23.8 Monocytes % 10.5 Eosinophils % 8.0 H Basophils % 0.4 Nucleated Red Blood Cells % 0.0 Neutrophils # 2.6 Lymphocytes # 1.1 Monocytes # 0.5 Eosinophils # 0.4 Basophils # 0.0 Nucleated Red Blood Cells # 0.0 Absolute Reticulocyte Count 0.134 H Percent Reticulocyte Count 4.4 H Sodium Level 142 Potassium Level 3.5 Chloride Level 104 Carbon Dioxide Level 29 Anion Gap 13 # Blood Urea Nitrogen 35 H Creatinine 1.90 H Glucose Level 229 H Calcium Level 7.8 L Magnesium Level 2.1 Ferritin 25.4 Alpha Fetoprotein 3.93 Vitamin B12 Level 808 Bedside Glucose 220 Medications Medications Current Medications Lactulose (Enulose) 20 gm QHS PO Last administered on 10/25/16 20:14; Admin Dose 20 GM; Start 10/24/16 at 21:00 Nifedipine (Procardia Xl) 30 mg DAILY PO Last administered on 10/26/16 08:45; Admin Dose 30 MG; Start 10/25/16 at 09:00 Atorvastatin Calcium (Lipitor) 10 mg DAILY@21 PO Last administered on 20:14; Admin Dose 10 MG; Start 10/24/16 at 21:00 Ondansetron HCl (Zofran Inj) 4 mg Q6H PRN IV NAUSEA AND/OR VOMITING; Start at 16:00 Acetaminophen (Tylenol Tab) 650 mg Q6H PRN PO PAIN LEVEL 1-3 OR FEVER Last administered on 10/25/16 17:17; Admin Dose 650 MG; Start 10/24/16 at 16:00 Docusate Sodium (Colace) 100 mg Q12H PRN PO CONSTIPATION; Start 10/24/16 at 16: 00 Pantoprazole (Protonix Iv) 40 mg DAILY@06 IV Last administered on 10/26/16 06: 06; Admin Dose 40 MG; Start 10/25/16 at 06:00 Diagnostic Test (Pha) (Accu-Chek) 1 ea 02 XX Last administered on 10/26/16 01: 45; Admin Dose 1 EA; Start 10/25/16 at 02:00 Miscellaneous Information 1 ea NOTE XX ; Start 10/24/16 at 21:30 Glucose (Glutose) 15 gm Q15M PRN PO DECREASED GLUCOSE; Start 10/24/16 at 21:30 Glucose (Glutose) 22.5 gm Q15M PRN PO DECREASED GLUCOSE; Start 10/24/16 at 21: 30 Dextrose (D50w Syringe) 25 ml Q15M PRN IV DECREASED GLUCOSE; Start 10/24/16 at 21:30 Dextrose (D50w Syringe) 50 ml Q15M PRN IV DECREASED GLUCOSE; Start 10/24/16 at 21:30 Glucagon (Glucagen) 1 mg Q15M PRN IM DECREASED GLUCOSE; Start 10/24/16 at 21:30 Glucose (Glutose) 15 gm Q15M PRN BUCCAL DECREASED GLUCOSE; Start 10/24/16 at 21 :30 Heparin Sodium (Porcine) (Heparin (5000 Units/0.5 ml)) 5,000 unit BID SC Last administered on 10/26/16 08:35; Admin Dose 5,000 UNIT; Start 10/25/16 at 09:00 Insulin Glargine (Lantus) 20 unit DAILY@20 SC Last administered on 10/25/16 20 :17; Admin Dose 20 UNIT; Start 10/25/16 at 20:00 Rifaximin (Xifaxan) 550 mg BID PO Last administered on 10/26/16 08:36; Admin Dose 550 MG; Start 10/25/16 at 21:00 WALDO FRASER Oct 26, 2016 11:36
--- NOTE | 2016-10-26 13:53 | RADRPT ---
Echocardiogram Report Patient Name: CYNTHIA STEINER Gender: Male Date: 1955 Study Date: 25-Oct-2016 [employer] Crew Leader: ESA Location: I Ref. Physician: JENY MORA Quality: Technically Difficult Study Procedures: Transthoracic echocardiogram with 2D, M-Mode, and Doppler examination, no subcostal images. Indications: Angina equivalent, SOB. 2D/M Mode Doppler Measurement Value Normal Ranges Measurement Value Normal Ranges AoR Diam MM 4.2 cm AV Peak Alonso 1.4 m/sec LVIDd 2D 5.6 3.5 - 5.6 cm AV Peak PG 8.3 mmHg LVIDs 2D 3.7 2.1 - 4.1 cm LVOT Peak Alonso 0.9 m/sec LVPWd 2D 1.2 0.6 - 1.1 cm LVOT Peak PG 3.1 mmHg IVSd 2D 1.5 0.6 - 1.1 cm MV E Peak Alonso 0.7 m/sec EDV 2D 153.2 cm3 MV A Peak Alonso 0.9 m/sec ESV 2D 49.5 cm3 MV E/A 0.8 LA Dimen 2D 4.7 2.3 - 4.0 cm MV Decel Time 205 msec MV Decel [place] 3 MV E/A 0.8 PV Peak Alonso 1.3 m/sec PV Peak PG 6.0 mmHg Findings Left Ventricle: Normal left ventricular systolic function. Normal left ventricular cavity size. Mild concentric left ventricular hypertrophy. Ejection fraction is visually estimated at 65 %. Tissue Doppler/Mitral Doppler indices are consistent with impaired relaxation (Stage I diastolic dysfunction). E/E`=10. Right Ventricle: Normal right ventricular size. Normal right ventricular systolic function. Left Atrium: There is moderate enlargement of left atrium. Right Atrium: The right atrium is normal in size. Atrial Septum: Not well visualized. Mitral Valve: Mild mitral annular calcification. Mild to moderate mitral valve regurgitation. Aortic Valve: No hemodynamically significant aortic stenosis by doppler. Aortic cusps appear mildly calcified. Mild aortic valve regurgitation. Tricuspid Valve: Tricuspid valve not well visualized. There is trace tricuspid regurgitation. Pulmonic Valve: Normal pulmonic valve appearance. There is trace pulmonic regurgitation. Pericardium: Normal pericardium with no significant pericardial effusion. Aorta: Ascending aorta is dilated. Ascending Aorta 4.00 cm. There is mild aortic root dilation. IVC: The IVC is not well visualized. Pulmonary Artery: Normal pulmonary artery size. Conclusions 1.1. Normal left ventricular function with EF 55-60%. 2.2. Normal right ventricular size and function. 3.3. Abnormal diastolic function. 4.4. Mild to moderate aortic regurgitation. Ascending aorta is mildly dilated at 4.0 cm. 5.5. Mild to moderate mitral regurgitation. 6.6. Unable to assess pulmonary pressures due to lack of tricuspid regurgitation (likely normal). Electronically Signed By: Jose Mccain 26-Oct-2016 13:52:34 -0700 Patient Name: CYNTHIA STEINER Study Date: 25-Oct-2016 [id number]
[2016-10-26] MEDS ORDERED: POTASSIUM CHLORIDE (SR) 20 MEQ TAB PO STA (14:02)
--- NOTE | 2016-10-26 14:47 | CONS ---
Date/Time of Note Date/Time of Note DATE: 10/26/16 TIME: 14:45 Assessment/Plan Assessment/Plan Additional Assessment/Plan Assessment recommendations; 1. Patient admitted with massive edema as well as shortness of breath likely from underlying sleep apnea due to right ventricular strain, intubated by diastolic dysfunction. 2. Morbid obesity. 3. Underlying sleep apnea. 4. Renal insufficiency. 5. History of hypertension diabetes. Continue current treatment. Monitor renal function. Patient is a good candidate for bariatric surgery. We need a sleep study on outpatient basis. Consultation Date/Type/Reason Admit Date/Time Oct 24, 2016 at 12:07 Initial Consult Date 10/25/16 Type of Consultation: Pulmonary 24 HR Interval Summary Free Text/Dictation Patient condition is slightly improved. He reports slightly improved shortness of breath. Denies any chest pain, cough, wheezing. General exam; elderly male, appears quite overweight currently in no distress awake and alert. Exam/Review of Systems Vital Signs Vitals Vital Signs Date Time Temp Pulse Resp B/P Pulse Ox O2 Delivery O2 Flow Rate FiO2 10/26/16 12:02 64 10/26/16 11:44 98.1 18 159/80 100 10/26/16 07:45 Nasal Cannula 2.0 10/25/16 03:03 30 Intake and Output 10/25/16 10/25/16 10/26/16 15:00 23:00 07:00 Intake Total 800 ml 600 ml Output Total 1100 ml Balance 800 ml -500 ml Exam HEENT exam is; supple neck, no JVD. No lymphadenopathy. Midline trachea. No thyromegaly. Pharynx is clear. Chest exam is; diminished but clear breath sounds. S1-S2 audible, no murmurs. Regular rhythm. Abdomen exam is; is grossly protuberant. Nontender. Bowel sounds audible. Extremity exam; 2+ pitting edema lower extremities bilaterally. Pulses 2+ bilaterally. No clubbing. FURNITURE MAKER exam; no focal deficit. Results Result Diagram: 10/26/16 0610 10/26/16 0610 Results 24 hrs Laboratory Tests Test 10/25/16 17:21 10/25/16 20:12 10/26/16 01:43 10/26/16 06:10 Bedside Glucose 210 181 203 White Blood Count 4.5 L Red Blood Count 3.05 L Hemoglobin 7.9 L Hematocrit 28.0 L Mean Corpuscular Volume 91.8 Mean Corpuscular Hemoglobin 25.9 L Mean Corpuscular Hemoglobin Concent 28.2 L Red Cell Distribution Width 21.2 H Platelet Count 95 L Mean Platelet Volume 11.9 H Neutrophils % 57.1 Lymphocytes % 23.8 Monocytes % 10.5 Eosinophils % 8.0 H Basophils % 0.4 Nucleated Red Blood Cells % 0.0 Neutrophils # 2.6 Lymphocytes # 1.1 Monocytes # 0.5 Eosinophils # 0.4 Basophils # 0.0 Nucleated Red Blood Cells # 0.0 Absolute Reticulocyte Count 0.134 H Percent Reticulocyte Count 4.4 H Sodium Level 142 Potassium Level 3.5 Chloride Level 104 Carbon Dioxide Level 29 Anion Gap 13 # Blood Urea Nitrogen 35 H Creatinine 1.90 H Glucose Level 229 H Calcium Level 7.8 L Magnesium Level 2.1 Ferritin 25.4 Alpha Fetoprotein 3.93 Vitamin B12 Level 808 Test 10/26/16 08:17 10/26/16 11:56 Bedside Glucose 220 198 Medications Medications Current Medications Lactulose (Enulose) 20 gm QHS PO Last administered on 10/25/16 20:14; Admin Dose 20 GM; Start 10/24/16 at 21:00 Nifedipine (Procardia Xl) 30 mg DAILY PO Last administered on 10/26/16 08:45; Admin Dose 30 MG; Start 10/25/16 at 09:00 Atorvastatin Calcium (Lipitor) 10 mg DAILY@21 PO Last administered on 20:14; Admin Dose 10 MG; Start 10/24/16 at 21:00 Ondansetron HCl (Zofran Inj) 4 mg Q6H PRN IV NAUSEA AND/OR VOMITING; Start at 16:00 Acetaminophen (Tylenol Tab) 650 mg Q6H PRN PO PAIN LEVEL 1-3 OR FEVER Last administered on 10/25/16 17:17; Admin Dose 650 MG; Start 10/24/16 at 16:00 Docusate Sodium (Colace) 100 mg Q12H PRN PO CONSTIPATION; Start 10/24/16 at 16: 00 Pantoprazole (Protonix Iv) 40 mg DAILY@06 IV Last administered on 10/26/16 06: 06; Admin Dose 40 MG; Start 10/25/16 at 06:00 Diagnostic Test (Pha) (Accu-Chek) 1 ea 02 XX Last administered on 10/26/16 01: 45; Admin Dose 1 EA; Start 10/25/16 at 02:00 Miscellaneous Information 1 ea NOTE XX ; Start 10/24/16 at 21:30 Glucose (Glutose) 15 gm Q15M PRN PO DECREASED GLUCOSE; Start 10/24/16 at 21:30 Glucose (Glutose) 22.5 gm Q15M PRN PO DECREASED GLUCOSE; Start 10/24/16 at 21: 30 Dextrose (D50w Syringe) 25 ml Q15M PRN IV DECREASED GLUCOSE; Start 10/24/16 at 21:30 Dextrose (D50w Syringe) 50 ml Q15M PRN IV DECREASED GLUCOSE; Start 10/24/16 at 21:30 Glucagon (Glucagen) 1 mg Q15M PRN IM DECREASED GLUCOSE; Start 10/24/16 at 21:30 Glucose (Glutose) 15 gm Q15M PRN BUCCAL DECREASED GLUCOSE; Start 10/24/16 at 21 :30 Heparin Sodium (Porcine) (Heparin (5000 Units/0.5 ml)) 5,000 unit BID SC Last administered on 10/26/16 08:35; Admin Dose 5,000 UNIT; Start 10/25/16 at 09:00 Insulin Glargine (Lantus) 20 unit DAILY@20 SC Last administered on 10/25/16 20 :17; Admin Dose 20 UNIT; Start 10/25/16 at 20:00 Rifaximin (Xifaxan) 550 mg BID PO Last administered on 10/26/16 08:36; Admin Dose 550 MG; Start 10/25/16 at 21:00 WALDO FRASER Oct 26, 2016 14:47
--- NOTE | 2016-10-26 15:26 | CONS ---
Date/Time of Note Date/Time of Note DATE: 10/26/16 TIME: 15:09 Assessment/Plan Assessment/Plan Additional Assessment/Plan Complex 61 yom w/ hep C (treated), cirrhosis, DM, htn, hld, YEVGENIY and other issues with episodes of sinus alfredo and brief episode (2 beats) of Mobitz II. Pt was on carvedilol, which was held yesterday, but it's levels are increased in the setting of hepatic and renal dysfunction. Pt has evidence of both ( ammonia 54, creatinine 1.9). Unclear if pt was symptomatic during his episodes , but they may resolve when the carvedilol is cleared from his system. Observe rhythm on telemetry. If he continues to have episodes of Mobitz II or symptomatic bradycardia, would warrant a PPM. Not sure if pt needs an ischemic w/u, as he does not have clear anginal symptoms (w/u was neg in the past, though that was years ago). His echo reveals a normal EF (55-60%). His dyspnea can be explained by other issues - weight gain, abdominal distention causing restrictive pulmonary physiology. Defer pulmonary w/u to pulmonary, but could check PFTs/ spirometry. With regards to his edema, difficult to assess his intravascular volume status on exam, but JVP does not seem markedly elevated. Edema could be from hypoalbuminemia. - d/c carvedilol - replete lytes - monitor rhythm on telemetry Consultation Date/Type/Reason Admit Date/Time Oct 24, 2016 at 12:07 Date of Consultation: Oct 26, 2016 Type of Consultation: cardiology Reason for Consultation bradycardia Hx of Present Illness 61 yom w/ hx of hep C (treated), cirrhosis, DM, htn, hld, YEVGENIY and morbidity obesity who presented with weight gain and worsen dyspnea. Called to see pt b/ c of bradycardia. Pt has no known CAD. He has been seen by Dr. Sutton, and he had an angiogram in 2009 that was negative. Echo done today reveals normal left ventricular function (EF 55-60%), normal RV function, and no severe valvular disease. Pt denies cp but notes HENLEY. Also has significant daytime somulence. Pt had episodes of sinus bradycardia while sleeping, and this morning he had an episode of Mobitz II for two beats (two non-conducted p-waves ) followed by a normal QRS and then another non-conducted p-wave. His avg HR has been 50-70s (sinus). No pauses > 3 secs noted. Pt was on coreg, which was held yesterday. His ammonia is 54 today. His creatinine is 1.9. Psychological: nl mood/affect, no complaints Past Medical History Hep C (treated) cirrhosis DM htn hld YEVGENIY Social History Alcohol Use: other (past ETOH use) Smoking Status: Never smoker Exam/Review of Systems Vital Signs Vitals Vital Signs Date Time Temp Pulse Resp B/P Pulse Ox O2 Delivery O2 Flow Rate FiO2 10/26/16 12:02 64 10/26/16 11:44 98.1 18 159/80 100 10/26/16 07:45 Nasal Cannula 2.0 10/25/16 03:03 30 Intake and Output 10/25/16 10/25/16 10/26/16 15:00 23:00 07:00 Intake Total 800 ml 600 ml Output Total 1100 ml Balance 800 ml -500 ml Exam Constitutional: other (morbidly obese, fatigued, NAD) Head: atraumatic, normocephalic Neck: other (difficult to assess JVP due to habitus, does not seem markedly elevated) Respiratory: other (mostly clear anteriorly) Cardiovascular: other (1/6 MAGDALENO), regular rate and rhythm Extremities: other (2+ edema) 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: other (awakens to voice, answers questions, somulent) Results Result Diagram: 10/26/16 0610 10/26/16 0610 Results 24 hrs Laboratory Tests Test 10/25/16 17:21 10/25/16 20:12 10/26/16 01:43 10/26/16 06:10 Bedside Glucose 210 181 203 White Blood Count 4.5 L Red Blood Count 3.05 L Hemoglobin 7.9 L Hematocrit 28.0 L Mean Corpuscular Volume 91.8 Mean Corpuscular Hemoglobin 25.9 L Mean Corpuscular Hemoglobin Concent 28.2 L Red Cell Distribution Width 21.2 H Platelet Count 95 L Mean Platelet Volume 11.9 H Neutrophils % 57.1 Lymphocytes % 23.8 Monocytes % 10.5 Eosinophils % 8.0 H Basophils % 0.4 Nucleated Red Blood Cells % 0.0 Neutrophils # 2.6 Lymphocytes # 1.1 Monocytes # 0.5 Eosinophils # 0.4 Basophils # 0.0 Nucleated Red Blood Cells # 0.0 Absolute Reticulocyte Count 0.134 H Percent Reticulocyte Count 4.4 H Sodium Level 142 Potassium Level 3.5 Chloride Level 104 Carbon Dioxide Level 29 Anion Gap 13 # Blood Urea Nitrogen 35 H Creatinine 1.90 H Glucose Level 229 H Calcium Level 7.8 L Magnesium Level 2.1 Ferritin 25.4 Alpha Fetoprotein 3.93 Vitamin B12 Level 808 Test 10/26/16 08:17 10/26/16 11:56 Bedside Glucose 220 198 Medications Medications Current Medications Lactulose (Enulose) 20 gm QHS PO Last administered on 10/25/16 20:14; Admin Dose 20 GM; Start 10/24/16 at 21:00 Nifedipine (Procardia Xl) 30 mg DAILY PO Last administered on 10/26/16 08:45; Admin Dose 30 MG; Start 10/25/16 at 09:00 Atorvastatin Calcium (Lipitor) 10 mg DAILY@21 PO Last administered on 20:14; Admin Dose 10 MG; Start 10/24/16 at 21:00 Ondansetron HCl (Zofran Inj) 4 mg Q6H PRN IV NAUSEA AND/OR VOMITING; Start at 16:00 Acetaminophen (Tylenol Tab) 650 mg Q6H PRN PO PAIN LEVEL 1-3 OR FEVER Last administered on 10/25/16 17:17; Admin Dose 650 MG; Start 10/24/16 at 16:00 Docusate Sodium (Colace) 100 mg Q12H PRN PO CONSTIPATION; Start 10/24/16 at 16: 00 Pantoprazole (Protonix Iv) 40 mg DAILY@06 IV Last administered on 10/26/16 06: 06; Admin Dose 40 MG; Start 10/25/16 at 06:00 Diagnostic Test (Pha) (Accu-Chek) 1 ea 02 XX Last administered on 10/26/16 01: 45; Admin Dose 1 EA; Start 10/25/16 at 02:00 Miscellaneous Information 1 ea NOTE XX ; Start 10/24/16 at 21:30 Glucose (Glutose) 15 gm Q15M PRN PO DECREASED GLUCOSE; Start 10/24/16 at 21:30 Glucose (Glutose) 22.5 gm Q15M PRN PO DECREASED GLUCOSE; Start 10/24/16 at 21: 30 Dextrose (D50w Syringe) 25 ml Q15M PRN IV DECREASED GLUCOSE; Start 10/24/16 at 21:30 Dextrose (D50w Syringe) 50 ml Q15M PRN IV DECREASED GLUCOSE; Start 10/24/16 at 21:30 Glucagon (Glucagen) 1 mg Q15M PRN IM DECREASED GLUCOSE; Start 10/24/16 at 21:30 Glucose (Glutose) 15 gm Q15M PRN BUCCAL DECREASED GLUCOSE; Start 10/24/16 at 21 :30 Heparin Sodium (Porcine) (Heparin (5000 Units/0.5 ml)) 5,000 unit BID SC Last administered on 10/26/16 08:35; Admin Dose 5,000 UNIT; Start 10/25/16 at 09:00 Insulin Glargine (Lantus) 20 unit DAILY@20 SC Last administered on 10/25/16 20 :17; Admin Dose 20 UNIT; Start 10/25/16 at 20:00 Rifaximin (Xifaxan) 550 mg BID PO Last administered on 10/26/16 08:36; Admin Dose 550 MG; Start 10/25/16 at 21:00 LESLEY MOREIRA Oct 26, 2016 15:25
--- NOTE | 2016-10-26 18:21 | PN ---
DATE: 10/26/2016 SUBJECTIVE: The patient complains of increasing abdominal distention with epigastric pain. Shortne ss of breath improved. PHYSICAL EXAMINATION GENERAL: The patient is awake, alert. No asterixis noted. VITAL SIGNS: Temperature 98.1, heart rate 64 per minute regular. Telemetry shows pause for 3.6 sec onds. Heart rate dropped into the 20s. Pulse ox is 100 on 2 liters. HEENT: Head: Normocephalic. No pallor, cyanosis, or icterus. LUNGS: Clinically clear. HEART: S1, S2 heard with no definite gallops. ABDOMEN: Obese with no definite tenderness. EXTREMITIES: 2+ edema. Homans sign is negative. INPUT AND OUTPUT: 1400, output is 1100 mL. LABORATORY DATA: WBC 4.5, hematocrit 28. Platelet count is 95,000. Sodium 142, potassium 3.5, BUN 35, creatinine 1.90. Magnesium 2.1, ferritin 25.4. CT of the abdomen and pelvis shows trace ascit es, cirrhotic liver with varices, patency of portal vein is indeterminate. There is diffuse thicken ing of the wall of the stomach versus distention. IMPRESSION: 1. Constellation of symptoms with predominant issue is obstructive sleep apnea for which the patien t needs to have an outpatient sleep study. 2. Obesity. 3. Cirrhosis of liver, status post treatment for hepatitis C with varices, with associated pancytop enia. 4. Chronic kidney disease contributing to the anemia as well with decreased erythropoietin level. 5. Iron deficiency, rule out underlying gastrointestinal blood loss. 6. Heart rate dropping into the 20s with long pauses. Concern about possible sick sinus syndrome. PLAN: Echocardiogram is pending. I have discussed the case with Dr. Mccain and cardiology consultat ion has been requested. Continue intravenous diuresis. Monitor potassium levels, replace. Continu e strict control of diabetes. The patient may need a pacemaker. We will also discuss with Dr. Peter cancino regarding consideration of endoscopy including upper endoscopy and colonoscopy. Dictated By: JENY MORA MD, SR/NTS Conf#: [id number] DID#: [id number]
--- NOTE | 2016-10-26 18:35 | RADRPT ---
Vent Rate: 63 bpm RR Interval: 0 msec MA Interval: 190 msec QRS Duration: 96 msec QT Interval: 454 msec QTC Interval: 464 msec P-R-T [place]: 56 - 1 - 57 degrees Normal sinus rhythm Prolonged QT Abnormal ECG Electronically Signed By: Lyndon Ayala [id number]
--- NOTE | 2016-10-26 18:36 | RADRPT ---
Vent Rate: 62 bpm RR Interval: 0 msec MI Interval: 184 msec QRS Duration: 92 msec QT Interval: 480 msec QTC Interval: 487 msec P-R-T [place]: 50 - 0 - 0 degrees Sinus rhythm with premature atrial complexes with aberrant conduction Nonspecific ST and T wave abnormality Prolonged QT Abnormal ECG Electronically Signed By: Lyndon Ayala [id number]
--- NOTE | 2016-10-26 19:32 | CONS ---
Date/Time of Note Date/Time of Note DATE: 10/26/16 TIME: 19:30 Assessment/Plan Assessment/Plan Additional Assessment/Plan IMPRESSION: 1. Hepatitis C secondary to a blood transfusion, successfully treated with Harvoni. Patient has cirrhotic liver 1. Diabetes mellitus type 2. 2. Hypertension. 3. Overweight. 4. Shortness of breath, with lethargy. Rule out sleep apnea. Also cannot rule out hepatopulmonary syndrome 5. Anemia, iron deficiency ferritin is only 25 6. Mild elevation of ammonia 56 upper limit at this facility is 30 Plan Rifaximin 550 twice daily Continue present care Patient definitely needs EGD colonoscopy for iron deficiency anemia but he is high risk since she is short of breath even at rest. Patient condition needs to be optimized before we do endoscopy. Consultation Date/Type/Reason Admit Date/Time Oct 24, 2016 at 12:07 Initial Consult Date 10/25/16 Type of Consultation: cardiology 24 HR Interval Summary Free Text/Dictation Still complains of shortness of breath Exam/Review of Systems Vital Signs Vitals Vital Signs Date Time Temp Pulse Resp B/P Pulse Ox O2 Delivery O2 Flow Rate FiO2 10/26/16 18:46 47 10/26/16 17:36 2.0 10/26/16 15:36 98.6 16 152/77 100 10/26/16 07:45 Nasal Cannula 10/25/16 03:03 30 Intake and Output 10/25/16 10/25/16 10/26/16 15:00 23:00 07:00 Intake Total 800 ml 600 ml Output Total 1100 ml Balance 800 ml -500 ml Exam Constitutional: alert, oriented, well developed Psych: nl mood/affect, no complaints Head: atraumatic, normocephalic Eyes: EOMI, PERRL, nl conjunctiva, nl lids, nl sclera ENMT: nl external ears & nose, nl lips & teeth, nl nasal mucosa & septum Neck: non-tender, supple Respiratory: clear to auscultation, normal air movement Cardiovascular: nl pulses, regular rate and rhythm Gastrointestinal: nl liver, spleen, non-tender, soft Musculoskeletal: nl extremities to inspection, nl gait and stance Extremities: normal pulses 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: ELECTRICAL LINEMAN II-XII intact, nl mental status, nl speech, nl strength Skin: nl turgor, No rash or lesions Lymph: nl lymph nodes Results Result Diagram: 10/26/16 0610 10/26/16 0610 Results 24 hrs Laboratory Tests Test 10/25/16 20:12 10/26/16 01:43 10/26/16 06:10 10/26/16 08:17 Bedside Glucose 181 203 220 White Blood Count 4.5 L Red Blood Count 3.05 L Hemoglobin 7.9 L Hematocrit 28.0 L Mean Corpuscular Volume 91.8 Mean Corpuscular Hemoglobin 25.9 L Mean Corpuscular Hemoglobin Concent 28.2 L Red Cell Distribution Width 21.2 H Platelet Count 95 L Mean Platelet Volume 11.9 H Neutrophils % 57.1 Lymphocytes % 23.8 Monocytes % 10.5 Eosinophils % 8.0 H Basophils % 0.4 Nucleated Red Blood Cells % 0.0 Neutrophils # 2.6 Lymphocytes # 1.1 Monocytes # 0.5 Eosinophils # 0.4 Basophils # 0.0 Nucleated Red Blood Cells # 0.0 Absolute Reticulocyte Count 0.134 H Percent Reticulocyte Count 4.4 H Sodium Level 142 Potassium Level 3.5 Chloride Level 104 Carbon Dioxide Level 29 Anion Gap 13 # Blood Urea Nitrogen 35 H Creatinine 1.90 H Glucose Level 229 H Calcium Level 7.8 L Magnesium Level 2.1 Ferritin 25.4 Alpha Fetoprotein 3.93 Vitamin B12 Level 808 Test 10/26/16 11:56 10/26/16 17:04 Bedside Glucose 198 234 H Medications Medications Current Medications Lactulose (Enulose) 20 gm QHS PO Last administered on 10/25/16 20:14; Admin Dose 20 GM; Start 10/24/16 at 21:00 Nifedipine (Procardia Xl) 30 mg DAILY PO Last administered on 10/26/16 08:45; Admin Dose 30 MG; Start 10/25/16 at 09:00 Atorvastatin Calcium (Lipitor) 10 mg DAILY@21 PO Last administered on 20:14; Admin Dose 10 MG; Start 10/24/16 at 21:00 Ondansetron HCl (Zofran Inj) 4 mg Q6H PRN IV NAUSEA AND/OR VOMITING; Start at 16:00 Acetaminophen (Tylenol Tab) 650 mg Q6H PRN PO PAIN LEVEL 1-3 OR FEVER Last administered on 10/25/16 17:17; Admin Dose 650 MG; Start 10/24/16 at 16:00 Docusate Sodium (Colace) 100 mg Q12H PRN PO CONSTIPATION; Start 10/24/16 at 16: 00 Pantoprazole (Protonix Iv) 40 mg DAILY@06 IV Last administered on 10/26/16 06: 06; Admin Dose 40 MG; Start 10/25/16 at 06:00 Diagnostic Test (Pha) (Accu-Chek) 1 ea 02 XX Last administered on 10/26/16 01: 45; Admin Dose 1 EA; Start 10/25/16 at 02:00 Miscellaneous Information 1 ea NOTE XX ; Start 10/24/16 at 21:30 Glucose (Glutose) 15 gm Q15M PRN PO DECREASED GLUCOSE; Start 10/24/16 at 21:30 Glucose (Glutose) 22.5 gm Q15M PRN PO DECREASED GLUCOSE; Start 10/24/16 at 21: 30 Dextrose (D50w Syringe) 25 ml Q15M PRN IV DECREASED GLUCOSE; Start 10/24/16 at 21:30 Dextrose (D50w Syringe) 50 ml Q15M PRN IV DECREASED GLUCOSE; Start 10/24/16 at 21:30 Glucagon (Glucagen) 1 mg Q15M PRN IM DECREASED GLUCOSE; Start 10/24/16 at 21:30 Glucose (Glutose) 15 gm Q15M PRN BUCCAL DECREASED GLUCOSE; Start 10/24/16 at 21 :30 Heparin Sodium (Porcine) (Heparin (5000 Units/0.5 ml)) 5,000 unit BID SC Last administered on 10/26/16 08:35; Admin Dose 5,000 UNIT; Start 10/25/16 at 09:00 Insulin Glargine (Lantus) 20 unit DAILY@20 SC Last administered on 10/25/16 20 :17; Admin Dose 20 UNIT; Start 10/25/16 at 20:00 Rifaximin (Xifaxan) 550 mg BID PO Last administered on 10/26/16 08:36; Admin Dose 550 MG; Start 10/25/16 at 21:00 STUART STANLEY MD Oct 26, 2016 19:31
[2016-10-26] MEDS: ATORVASTATIN 10 MG TAB PO SCH (20:45)
[2016-10-26] MEDS: LACTULOSE 30ML CUP PO SCH (20:45)
[2016-10-26] MEDS: INSULIN GLARGINE [LANtus] 3 ML PEN SC SCH (20:46)
[2016-10-27] VITALS (13 sets, daily range): BP systolic 126–151; BP diastolic 60–76; PULSE 30–80; RESP 18–21
[2016-10-27] MEDS: ACCU-CHEK XX SCH (01:25)
[2016-10-27] MEDS: PANTOPRAZOLE 40 MG INJ IV SCH (06:08)
[2016-10-27] MEDS: FUROSEMIDE 40 MG INJ IV SCH ×2 (06:09→17:26)
[2016-10-27 07:37] LABS: ADD SCAN DIFF NO
[2016-10-27 07:45] LABS: ABNORMAL IP MESSAGE 1; BASOPHILS % 0.5 % (0.0-2.0); EOSINOPHILS # 0.3 10^3/ul (0.0-0.5); EOSINOPHILS % 8.2 % (0.0-7.0); HEMATOCRIT 27.1 % (42.0-52.0); HEMOGLOBIN 7.7 g/dl (14.0-18.0); LYMPHOCYTES % 25.2 % (15.0-51.0); MEAN CORPUSCULAR HEMOGLOBIN 26.1 pg (29.0-33.0); MEAN CORPUSCULAR HGB CONC 28.4 g/dl (32.0-37.0); MEAN CORPUSCULAR VOLUME 91.9 fl (82.0-101.0); MEAN PLATELET VOLUME 12.5 fl (7.4-10.4); MONOCYTE # 0.4 10^3/ul (0.3-0.9); MONOCYTES % 10.9 % (0.0-11.0); NEUTROPHIL # 2.1 10^3/ul (1.6-7.5); NEUTROPHILS % 54.9 % (39.0-77.0); PLATELET COUNT 92 10^3/UL (140-415); RED BLOOD COUNT 2.95 10^6/ul (4.70-6.10); WHITE BLOOD COUNT 3.8 10^3/ul (4.8-10.8)
[2016-10-27 08:08] LABS: CALCIUM 7.2 mg/dl (8.4-10.2); CREATININE 1.66 mg/dl (0.61-1.24); MAGNESIUM 2.2 mg/dl (1.7-2.5); POTASSIUM 3.8 mmol/L (3.5-5.1)
--- NOTE | 2016-10-27 08:23 | RADRPT ---
PROCEDURE: XR Chest. CLINICAL INDICATION: Shortness of breath. TECHNIQUE: Single frontal view. COMPARISON: 10/24/2016. FINDINGS: The lungs are clear. The heart is enlarged. There is no pleural effusion. There is no pneumothorax. IMPRESSION: 1. Cardiomegaly. 2. Clear lungs. 3. No change from 10/24/2016. RPTAT: QQ .Ulices Silva MD, MD Date Time Electronically viewed and signed by .Ulices Silva MD, MD on 10/27/2016 08:23 .R/
--- NOTE | 2016-10-27 08:30 | CONS ---
DATE OF ADMISSION: 10/24/2016 DATE OF CONSULTATION: 10/25/2016 TYPE OF CONSULTATION: Pulmonary REFERRING PHYSICIAN: Ivan Brice MD REASON FOR REFERRAL: For evaluation of shortness of breath. HISTORY OF PRESENT ILLNESS: Mr. El is a pleasant 61-year-old [place] male who came into [facility] emergency room yesterday with a several-day history of shortness of breath upon exertion associate d with significant lower extremity edema. The patient denies having any chest pain, wheezing, cough or sputum production. According to him, the symptoms have been progressively getting worse over last several months. The patient denies any fever, any abdominal pain, nausea, vomiting. PAST MEDICAL HISTORY: 1. Hypertension. 2. Diabetes. 3. History of TB arthritis involving the right ankle. DICTATION ENDS HERE Dictated By: WALDO ROSSI/NTS Conf#: [id number] DID#: [id number]
[2016-10-27] MEDS: NIFEdipine (XL) 30 MG TAB PO SCH (08:36)
[2016-10-27] MEDS: RIFAXIMIN 550 MG TAB PO SCH ×2 (08:36→20:29)
[2016-10-27] MEDS: HEPARIN 5,000 UNIT/0.5 ML VIAL SC SCH ×2 (08:37→20:31)
[2016-10-27] MEDS: INSULIN ASPART [NOVOLOG] 3 ML PEN SC SCH ×4 (08:37→20:34)
[2016-10-27] MEDS ORDERED: POTASSIUM CHLORIDE (SR) 10 MEQ TAB PO ONE (13:30)
--- NOTE | 2016-10-27 14:49 | PN ---
DATE: 10/27/2016 SUBJECTIVE: The patient has less shortness of breath, denies any chest pain, no syncope. OBJECTIVE: VITAL SIGNS: Afebrile, blood pressure is 147/70, temperature 98.4, heart rate 72 per minute, regula r. HEENT: No evidence of severe bradycardia as noted yesterday. LUNGS: Clinically clear. HEART: S1, S2 heard with no definite gallops. ABDOMEN: Obese, nontender. EXTREMITIES: 1+ edema. Homans sign is negative. LABORATORY: Sodium 140, potassium 3.8, BUN 37, creatinine 1.66, glucose 141 and 185 today. Chest x-ray done today showed cardiomegaly, clear lungs. IMPRESSION: 1. Severe obstructive sleep apnea. 2. Cirrhosis of the liver secondary to hep C with varices with associated pancytopenia. 3. Chronic kidney disease. 4. Iron deficiency. 5. Severe bradycardia noted yesterday which is not present today after stopping carvedilol. The román patricio likely has underlying sick-sinus syndrome. PLAN: Will replace potassium. Continue diuresis. Increase activity. GI recommendations per Dr. Herberth vasquez. Dictated By: JENY MORA MD SR/NTS Conf#: [id number] DID#: [id number]
--- NOTE | 2016-10-27 15:30 | CONS ---
Date/Time of Note Date/Time of Note DATE: 10/27/16 TIME: 15:28 Consult Date/Type/Reason Admit Date/Time Oct 24, 2016 at 12:07 Initial Consult Date 10/26/16 Type of Consultation: pulmonary Subjective Patient states he still has some shortness of breath on exertion Not tolerating BiPAP Objective Vital Signs Date Time Temp Pulse Resp B/P Pulse Ox O2 Delivery O2 Flow Rate FiO2 10/27/16 13:45 2.0 10/27/16 12:01 75 10/27/16 11:51 98.4 21 147/70 94 10/27/16 08:15 Nasal Cannula 10/25/16 03:03 30 Intake and Output 10/26/16 10/26/16 10/27/16 14:59 22:59 06:59 Intake Total 800 ml 600 ml Balance 800 ml 600 ml Exam GENERAL: Morbidly obese gentleman comfortable at rest VITAL SIGNS: per chart NECK: Supple. No JVD or lymphadenopathy. CARDIAC EXAM: S1, S2. No added sounds or murmurs. CHEST: clear bilaterally, No added sounds, rales or wheezes ABDOMEN: Soft, nontender. No guarding or rebound. EXTREMITIES: No cyanosis, clubbing or edema. NEUROLOGIC: Generalized weakness. No focal deficits. Results/Medications Result Diagram: 10/27/1661810/27/16618 Results 24 hrs Laboratory Tests Test 10/26/16 17:04 10/26/16 20:43 10/27/16 01:24 10/27/16 06:19 Bedside Glucose 234 H 207 178 White Blood Count 3.8 L Red Blood Count 2.95 L Hemoglobin 7.7 L Hematocrit 27.1 L Mean Corpuscular Volume 91.9 Mean Corpuscular Hemoglobin 26.1 L Mean Corpuscular Hemoglobin Concent 28.4 L Red Cell Distribution Width 21.0 H Platelet Count 92 L Mean Platelet Volume 12.5 H Neutrophils % 54.9 Lymphocytes % 25.2 Monocytes % 10.9 Eosinophils % 8.2 H Basophils % 0.5 Nucleated Red Blood Cells % 0.0 Neutrophils # 2.1 Lymphocytes # 1.0 Monocytes # 0.4 Eosinophils # 0.3 Basophils # 0.0 Nucleated Red Blood Cells # 0.0 Sodium Level 140 Potassium Level 3.8 Chloride Level 106 Carbon Dioxide Level 25 Anion Gap 13 Blood Urea Nitrogen 37 H Creatinine 1.66 H Glucose Level 174 Calcium Level 7.2 L Magnesium Level 2.2 Test 10/27/16 07:07 10/27/16 07:46 10/27/16 11:32 Stool Occult Blood NEGATIVE Bedside Glucose 141 185 Medications Current Medications Lactulose (Enulose) 20 gm QHS PO Last administered on 10/26/16 20:45; Admin Dose 20 GM; Start 10/24/16 at 21:00 Nifedipine (Procardia Xl) 30 mg DAILY PO Last administered on 10/27/16 08:36; Admin Dose 30 MG; Start 10/25/16 at 09:00 Atorvastatin Calcium (Lipitor) 10 mg DAILY@21 PO Last administered on 20:45; Admin Dose 10 MG; Start 10/24/16 at 21:00 Ondansetron HCl (Zofran Inj) 4 mg Q6H PRN IV NAUSEA AND/OR VOMITING; Start at 16:00 Acetaminophen (Tylenol Tab) 650 mg Q6H PRN PO PAIN LEVEL 1-3 OR FEVER Last administered on 10/25/16 17:17; Admin Dose 650 MG; Start 10/24/16 at 16:00 Docusate Sodium (Colace) 100 mg Q12H PRN PO CONSTIPATION; Start 10/24/16 at 16: 00 Pantoprazole (Protonix Iv) 40 mg DAILY@06 IV Last administered on 10/27/16 06: 08; Admin Dose 40 MG; Start 10/25/16 at 06:00 Diagnostic Test (Pha) (Accu-Chek) 1 ea 02 XX Last administered on 10/27/16 01: 25; Admin Dose 1 EA; Start 10/25/16 at 02:00 Miscellaneous Information 1 ea NOTE XX ; Start 10/24/16 at 21:30 Glucose (Glutose) 15 gm Q15M PRN PO DECREASED GLUCOSE; Start 10/24/16 at 21:30 Glucose (Glutose) 22.5 gm Q15M PRN PO DECREASED GLUCOSE; Start 10/24/16 at 21: 30 Dextrose (D50w Syringe) 25 ml Q15M PRN IV DECREASED GLUCOSE; Start 10/24/16 at 21:30 Dextrose (D50w Syringe) 50 ml Q15M PRN IV DECREASED GLUCOSE; Start 10/24/16 at 21:30 Glucagon (Glucagen) 1 mg Q15M PRN IM DECREASED GLUCOSE; Start 10/24/16 at 21:30 Glucose (Glutose) 15 gm Q15M PRN BUCCAL DECREASED GLUCOSE; Start 10/24/16 at 21 :30 Heparin Sodium (Porcine) (Heparin (5000 Units/0.5 ml)) 5,000 unit BID SC Last administered on 10/27/16 08:37; Admin Dose 5,000 UNIT; Start 10/25/16 at 09:00 Insulin Glargine (Lantus) 20 unit DAILY@20 SC Last administered on 10/26/16 20 :46; Admin Dose 20 UNIT; Start 10/25/16 at 20:00 Rifaximin (Xifaxan) 550 mg BID PO Last administered on 10/27/16 08:36; Admin Dose 550 MG; Start 10/25/16 at 21:00 Assessment/Plan Chief Complaint/Hosp Course Assessment 1. Significant anemia 2. Likely obstructive sleep apnea 3. Probable underlying chronic obstructive pulmonary disease with mild hypoxemia 4. Renal insufficiency 5. Morbid obesity Recommendations 1. Arterial blood gas in a.m. 2. Pulmonary function testing has been requested 3. Workup for anemia 4. Renal recommendations 5. Outpatient sleep study Disposition Continue current level of care Problems: GUERITA RESENDIZ [facility], [facility] Oct 27, 2016 15:30
--- NOTE | 2016-10-27 16:06 | CONS ---
Date/Time of Note Date/Time of Note DATE: 10/27/16 TIME: 16:05 Assessment/Plan Assessment/Plan Additional Assessment/Plan Additional Assessment/Plan IMPRESSION: 1. Hepatitis C secondary to a blood transfusion, successfully treated with Harvoni. Patient has cirrhotic liver 1. Diabetes mellitus type 2. 2. Hypertension. 3. Overweight. 4. Shortness of breath, with lethargy. Rule out sleep apnea. Also cannot rule out hepatopulmonary syndrome 5. Anemia, iron deficiency ferritin is only 25 6. Mild elevation of ammonia 56 upper limit at this facility is 30 Plan Rifaximin 550 twice daily Continue present care Patient definitely needs EGD colonoscopy for iron deficiency anemia but he is high risk since he is short of breath even at rest. Patient condition needs to be optimized before we do endoscopy. Discussed with his Consultation Date/Type/Reason Admit Date/Time Oct 24, 2016 at 12:07 Initial Consult Date 10/25/16 Type of Consultation: pulmonary 24 HR Interval Summary Free Text/Dictation Short of breath in the sitting up position not in lying down Exam/Review of Systems Vital Signs Vitals Vital Signs Date Time Temp Pulse Resp B/P Pulse Ox O2 Delivery O2 Flow Rate FiO2 10/27/16 16:01 77 10/27/16 15:37 97.1 20 151/74 96 10/27/16 13:45 2.0 10/27/16 08:15 Nasal Cannula 10/25/16 03:03 30 Intake and Output 10/26/16 10/26/16 10/27/16 15:00 23:00 07:00 Intake Total 800 ml 600 ml Balance 800 ml 600 ml Exam Constitutional: alert, oriented, well developed Psych: nl mood/affect, no complaints Head: atraumatic, normocephalic Eyes: EOMI, PERRL, nl conjunctiva, nl lids, nl sclera ENMT: nl external ears & nose, nl lips & teeth, nl nasal mucosa & septum Neck: non-tender, supple Respiratory: clear to auscultation, normal air movement Cardiovascular: nl pulses, regular rate and rhythm Gastrointestinal: nl liver, spleen, non-tender, soft Musculoskeletal: nl extremities to inspection, nl gait and stance Extremities: normal pulses 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, nl mental status, nl speech, nl strength Skin: nl turgor, No rash or lesions Lymph: nl lymph nodes Results Result Diagram: 10/27/16 0619 10/27/16 0619 Results 24 hrs Laboratory Tests Test 10/26/16 17:04 10/26/16 20:43 10/27/16 01:24 10/27/16 06:19 Bedside Glucose 234 H 207 178 White Blood Count 3.8 L Red Blood Count 2.95 L Hemoglobin 7.7 L Hematocrit 27.1 L Mean Corpuscular Volume 91.9 Mean Corpuscular Hemoglobin 26.1 L Mean Corpuscular Hemoglobin Concent 28.4 L Red Cell Distribution Width 21.0 H Platelet Count 92 L Mean Platelet Volume 12.5 H Neutrophils % 54.9 Lymphocytes % 25.2 Monocytes % 10.9 Eosinophils % 8.2 H Basophils % 0.5 Nucleated Red Blood Cells % 0.0 Neutrophils # 2.1 Lymphocytes # 1.0 Monocytes # 0.4 Eosinophils # 0.3 Basophils # 0.0 Nucleated Red Blood Cells # 0.0 Sodium Level 140 Potassium Level 3.8 Chloride Level 106 Carbon Dioxide Level 25 Anion Gap 13 Blood Urea Nitrogen 37 H Creatinine 1.66 H Glucose Level 174 Calcium Level 7.2 L Magnesium Level 2.2 Test 10/27/16 07:07 10/27/16 07:46 10/27/16 11:32 Stool Occult Blood NEGATIVE Bedside Glucose 141 185 Medications Medications Current Medications Lactulose (Enulose) 20 gm QHS PO Last administered on 10/26/16 20:45; Admin Dose 20 GM; Start 10/24/16 at 21:00 Nifedipine (Procardia Xl) 30 mg DAILY PO Last administered on 10/27/16 08:36; Admin Dose 30 MG; Start 10/25/16 at 09:00 Atorvastatin Calcium (Lipitor) 10 mg DAILY@21 PO Last administered on 20:45; Admin Dose 10 MG; Start 10/24/16 at 21:00 Ondansetron HCl (Zofran Inj) 4 mg Q6H PRN IV NAUSEA AND/OR VOMITING; Start at 16:00 Acetaminophen (Tylenol Tab) 650 mg Q6H PRN PO PAIN LEVEL 1-3 OR FEVER Last administered on 10/25/16 17:17; Admin Dose 650 MG; Start 10/24/16 at 16:00 Docusate Sodium (Colace) 100 mg Q12H PRN PO CONSTIPATION; Start 10/24/16 at 16: 00 Pantoprazole (Protonix Iv) 40 mg DAILY@06 IV Last administered on 10/27/16 06: 08; Admin Dose 40 MG; Start 10/25/16 at 06:00 Diagnostic Test (Pha) (Accu-Chek) 1 ea 02 XX Last administered on 10/27/16 01: 25; Admin Dose 1 EA; Start 10/25/16 at 02:00 Miscellaneous Information 1 ea NOTE XX ; Start 10/24/16 at 21:30 Glucose (Glutose) 15 gm Q15M PRN PO DECREASED GLUCOSE; Start 10/24/16 at 21:30 Glucose (Glutose) 22.5 gm Q15M PRN PO DECREASED GLUCOSE; Start 10/24/16 at 21: 30 Dextrose (D50w Syringe) 25 ml Q15M PRN IV DECREASED GLUCOSE; Start 10/24/16 at 21:30 Dextrose (D50w Syringe) 50 ml Q15M PRN IV DECREASED GLUCOSE; Start 10/24/16 at 21:30 Glucagon (Glucagen) 1 mg Q15M PRN IM DECREASED GLUCOSE; Start 10/24/16 at 21:30 Glucose (Glutose) 15 gm Q15M PRN BUCCAL DECREASED GLUCOSE; Start 10/24/16 at 21 :30 Heparin Sodium (Porcine) (Heparin (5000 Units/0.5 ml)) 5,000 unit BID SC Last administered on 10/27/16 08:37; Admin Dose 5,000 UNIT; Start 10/25/16 at 09:00 Insulin Glargine (Lantus) 20 unit DAILY@20 SC Last administered on 10/26/16 20 :46; Admin Dose 20 UNIT; Start 10/25/16 at 20:00 Rifaximin (Xifaxan) 550 mg BID PO Last administered on 10/27/16 08:36; Admin Dose 550 MG; Start 10/25/16 at 21:00 STUART STANLEY MD Oct 27, 2016 16:06
--- NOTE | 2016-10-27 19:45 | CONS ---
Date/Time of Note Date/Time of Note DATE: 10/27/16 TIME: 19:39 Assessment/Plan Assessment/Plan Chief Complaint/Hosp Course 61 yom w/ hx of hep C (treated), cirrhosis, DM, htn, hld, YEVGENIY and morbidity obesity who presented with weight gain and worsen dyspnea. Called to see pt b/ c of bradycardia (brief episodes of Mobitz II), which was likely secondary to coreg in setting of hepatic and renal dysfxn. Since coreg has been d/c, HR is sinus in the 60-70s. Pt still c/o dyspnea. Pt has no known CAD. He has been seen by Dr. Sutton, and he had an angiogram in 2009 that was negative. Echo revealed normal left ventricular function (EF 55-60%), normal RV function, and no severe valvular disease. His dyspneic does not seem cardiac in etiology (likely a component of restrictive pulmonary physiology from abdominal distention). Problems: Consultation Date/Type/Reason Admit Date/Time Oct 24, 2016 at 12:07 Initial Consult Date 10/26/16 Type of Consultation: cardiology Reason for Consultation bradycardia 24 HR Interval Summary Free Text/Dictation Still c/o sob and abdominal distention (discomfort). Telemetry - sinus rhythm 60-70s w/o pauses or higher grade AVB Exam/Review of Systems Vital Signs Vitals Vital Signs Date Time Temp Pulse Resp B/P Pulse Ox O2 Delivery O2 Flow Rate FiO2 10/27/16 16:01 77 10/27/16 15:37 97.1 20 151/74 96 10/27/16 13:45 2.0 10/27/16 08:15 Nasal Cannula 10/25/16 03:03 30 Intake and Output 10/26/16 10/26/16 10/27/16 15:00 23:00 07:00 Intake Total 800 ml 600 ml Balance 800 ml 600 ml Exam Constitutional: alert, obese, other (fatigued) Neck: other (difficult to assess JVP - does not appear grossly elevated) Respiratory: other (mostly clear anteriorly) Cardiovascular: regular rate and rhythm, No systolic murmur Gastrointestinal: other (obese, distended) Extremities: other (2-3+ edema) Results Result Diagram: 10/27/16 0619 10/27/16 0619 Results 24 hrs Laboratory Tests Test 10/26/16 20:43 10/27/16 01:24 10/27/16 06:19 10/27/16 07:07 Bedside Glucose 207 178 White Blood Count 3.8 L Red Blood Count 2.95 L Hemoglobin 7.7 L Hematocrit 27.1 L Mean Corpuscular Volume 91.9 Mean Corpuscular Hemoglobin 26.1 L Mean Corpuscular Hemoglobin Concent 28.4 L Red Cell Distribution Width 21.0 H Platelet Count 92 L Mean Platelet Volume 12.5 H Neutrophils % 54.9 Lymphocytes % 25.2 Monocytes % 10.9 Eosinophils % 8.2 H Basophils % 0.5 Nucleated Red Blood Cells % 0.0 Neutrophils # 2.1 Lymphocytes # 1.0 Monocytes # 0.4 Eosinophils # 0.3 Basophils # 0.0 Nucleated Red Blood Cells # 0.0 Sodium Level 140 Potassium Level 3.8 Chloride Level 106 Carbon Dioxide Level 25 Anion Gap 13 Blood Urea Nitrogen 37 H Creatinine 1.66 H Glucose Level 174 Calcium Level 7.2 L Magnesium Level 2.2 Stool Occult Blood NEGATIVE Test 10/27/16 07:46 10/27/16 11:32 10/27/16 17:10 Bedside Glucose 141 185 219 Medications Medications Current Medications Lactulose (Enulose) 20 gm QHS PO Last administered on 10/26/16 20:45; Admin Dose 20 GM; Start 10/24/16 at 21:00 Nifedipine (Procardia Xl) 30 mg DAILY PO Last administered on 10/27/16 08:36; Admin Dose 30 MG; Start 10/25/16 at 09:00 Atorvastatin Calcium (Lipitor) 10 mg DAILY@21 PO Last administered on 20:45; Admin Dose 10 MG; Start 10/24/16 at 21:00 Ondansetron HCl (Zofran Inj) 4 mg Q6H PRN IV NAUSEA AND/OR VOMITING; Start at 16:00 Acetaminophen (Tylenol Tab) 650 mg Q6H PRN PO PAIN LEVEL 1-3 OR FEVER Last administered on 10/25/16 17:17; Admin Dose 650 MG; Start 10/24/16 at 16:00 Docusate Sodium (Colace) 100 mg Q12H PRN PO CONSTIPATION; Start 10/24/16 at 16: 00 Pantoprazole (Protonix Iv) 40 mg DAILY@06 IV Last administered on 10/27/16 06: 08; Admin Dose 40 MG; Start 10/25/16 at 06:00 Diagnostic Test (Pha) (Accu-Chek) 1 ea 02 XX Last administered on 10/27/16 01: 25; Admin Dose 1 EA; Start 10/25/16 at 02:00 Miscellaneous Information 1 ea NOTE XX ; Start 10/24/16 at 21:30 Glucose (Glutose) 15 gm Q15M PRN PO DECREASED GLUCOSE; Start 10/24/16 at 21:30 Glucose (Glutose) 22.5 gm Q15M PRN PO DECREASED GLUCOSE; Start 10/24/16 at 21: 30 Dextrose (D50w Syringe) 25 ml Q15M PRN IV DECREASED GLUCOSE; Start 10/24/16 at 21:30 Dextrose (D50w Syringe) 50 ml Q15M PRN IV DECREASED GLUCOSE; Start 10/24/16 at 21:30 Glucagon (Glucagen) 1 mg Q15M PRN IM DECREASED GLUCOSE; Start 10/24/16 at 21:30 Glucose (Glutose) 15 gm Q15M PRN BUCCAL DECREASED GLUCOSE; Start 10/24/16 at 21 :30 Heparin Sodium (Porcine) (Heparin (5000 Units/0.5 ml)) 5,000 unit BID SC Last administered on 10/27/16 08:37; Admin Dose 5,000 UNIT; Start 10/25/16 at 09:00 Insulin Glargine (Lantus) 20 unit DAILY@20 SC Last administered on 10/26/16 20 :46; Admin Dose 20 UNIT; Start 10/25/16 at 20:00 Rifaximin (Xifaxan) 550 mg BID PO Last administered on 10/27/16 08:36; Admin Dose 550 MG; Start 10/25/16 at 21:00 LESLEY MOREIRA Oct 27, 2016 19:45
[2016-10-27] MEDS: ATORVASTATIN 10 MG TAB PO SCH (20:29)
[2016-10-27] MEDS: INSULIN GLARGINE [LANtus] 3 ML PEN SC SCH (20:31)
[2016-10-27] MEDS: LACTULOSE 30ML CUP PO SCH (20:35)
[2016-10-28] VITALS (10 sets, daily range): BP systolic 128–156; BP diastolic 62–87; PULSE 70–81; RESP 19–21
[2016-10-28] MEDS: ACCU-CHEK XX SCH (02:00)
[2016-10-28 05:42] LABS: ADD SCAN DIFF NO
[2016-10-28 06:04] LABS: POTASSIUM 3.6 mmol/L (3.5-5.1)
[2016-10-28 06:06] LABS: CREATININE 1.86 mg/dl (0.61-1.24)
[2016-10-28 06:07] LABS: CALCIUM 7.9 mg/dl (8.4-10.2); MAGNESIUM 2.1 mg/dl (1.7-2.5)
[2016-10-28] MEDS: PANTOPRAZOLE 40 MG INJ IV SCH (06:24)
[2016-10-28] MEDS: FUROSEMIDE 40 MG INJ IV SCH ×2 (06:24→18:06)
[2016-10-28 06:28] LABS: ABNORMAL IP MESSAGE 1; BASOPHILS % 0.3 % (0.0-2.0); EOSINOPHILS # 0.3 10^3/ul (0.0-0.5); EOSINOPHILS % 8.8 % (0.0-7.0); HEMATOCRIT 26.1 % (42.0-52.0); HEMOGLOBIN 7.5 g/dl (14.0-18.0); LYMPHOCYTES % 26.7 % (15.0-51.0); MEAN CORPUSCULAR HEMOGLOBIN 26.2 pg (29.0-33.0); MEAN CORPUSCULAR HGB CONC 28.7 g/dl (32.0-37.0); MEAN CORPUSCULAR VOLUME 91.3 fl (82.0-101.0); MONOCYTE # 0.4 10^3/ul (0.3-0.9); MONOCYTES % 10.2 % (0.0-11.0); NEUTROPHILS % 53.7 % (39.0-77.0); PLATELET COUNT 83 10^3/UL (140-415); RED BLOOD COUNT 2.86 10^6/ul (4.70-6.10); RED CELL DISTRIBUTION WIDTH 20.7 % (11.5-14.5); WHITE BLOOD COUNT 3.6 10^3/ul (4.8-10.8)
[2016-10-28] MEDS ORDERED: ALBUTEROL 0.083% (NEB) 2.5 MG/3 ML AMP ONE (07:00)
[2016-10-28] MEDS: INSULIN ASPART [NOVOLOG] 3 ML PEN SC SCH ×4 (08:00→20:09)
[2016-10-28 09:11] LABS: AADO2 Arterial 24.7 mmHg (7.0-24.0); Allen Test ACCEPTAB; Arterial COHb 0.6 % (0.0-3.0); Arterial Fraction of Oxyhgb 93.1 % (93.0-99.0); Arterial HCO3 28.7 mmol/L (22.0-26.0); Arterial MetHb 0.4 % (0.0-1.5); Arterial Total Hemglobin 7.9 g/dl (12.0-18.0); MODE ROOM AIR
[2016-10-28] MEDS ORDERED: POTASSIUM CHLORIDE (SR) 20 MEQ TAB PO STA (09:12)
--- NOTE | 2016-10-28 10:13 | CONS ---
Date/Time of Note Date/Time of Note DATE: 10/28/16 TIME: 10:12 Assessment/Plan Assessment/Plan Additional Assessment/Plan Additional Assessment/Plan IMPRESSION: 1. Hepatitis C secondary to a blood transfusion, successfully treated with Harvoni. Patient has cirrhotic liver 1. Diabetes mellitus type 2. 2. Hypertension. 3. Overweight. 4. Shortness of breath, with lethargy. Rule out sleep apnea. Also cannot rule out hepatopulmonary syndrome 5. Anemia, iron deficiency ferritin is only 25 6. Mild elevation of ammonia 56 upper limit at this facility is 30 Plan Rifaximin 550 twice daily Continue present care Patient definitely needs EGD colonoscopy for iron deficiency anemia but he is high risk since he is short of breath even at rest. Patient condition needs to be optimized before we do endoscopy. Discussed with his Patient will need bariatric surgery after sleep study. Consultation Date/Type/Reason Admit Date/Time Oct 24, 2016 at 12:07 Initial Consult Date 10/25/16 Type of Consultation: cardiology 24 HR Interval Summary Free Text/Dictation Shortness of breath especially in sitting up position and not in lying down Exam/Review of Systems Vital Signs Vitals Vital Signs Date Time Temp Pulse Resp B/P Pulse Ox O2 Delivery O2 Flow Rate FiO2 10/28/16 08:27 Nasal Cannula 2.0 10/28/16 08:00 70 10/28/16 07:57 99.1 20 147/79 94 10/25/16 03:03 30 Intake and Output 10/27/16 10/27/16 10/28/16 15:00 23:00 07:00 Intake Total 600 ml 550 ml Balance 600 ml 550 ml Exam Constitutional: alert, oriented, well developed Psych: nl mood/affect, no complaints Head: atraumatic, normocephalic Eyes: EOMI, PERRL, nl conjunctiva, nl lids, nl sclera ENMT: nl external ears & nose, nl lips & teeth, nl nasal mucosa & septum Neck: non-tender, supple Respiratory: clear to auscultation, normal air movement Cardiovascular: nl pulses, regular rate and rhythm Gastrointestinal: nl liver, spleen, non-tender, soft Musculoskeletal: nl extremities to inspection, nl gait and stance Extremities: normal pulses 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0 H Neutrophils % 53.7 Lymphocytes % 26.7 Monocytes % 10.2 Eosinophils % 8.8 H Basophils % 0.3 Nucleated Red Blood Cells % 0.0 Neutrophils # 2.0 Lymphocytes # 1.0 Monocytes # 0.4 Eosinophils # 0.3 Basophils # 0.0 Nucleated Red Blood Cells # 0.0 Sodium Level 142 Potassium Level 3.6 Chloride Level 105 Carbon Dioxide Level 28 Anion Gap 13 Blood Urea Nitrogen 41 H Creatinine 1.86 H Glucose Level 221 H Calcium Level 7.9 L Magnesium Level 2.1 Blood Gas Specimen Source Blood arterial Arterial Blood Date Drawn 10/28/2016 9:02:37 AM Arterial Blood pH (Temp corrected) 7.432 Arterial Blood pCO2 (Temp correct) 44.0 Arterial Blood pO2 (Temp corrected) 72.3 L Arterial Blood HCO3 28.7 H Arterial Blood Base Excess 4.0 H Arterial Blood Oxygen Saturation 94.0 L Oswaldo Test ACCEPTAB Arterial Blood Gas Puncture Site Left Radial Arterial Blood Carboxyhemoglobin 0.6 Arterial Blood Methemoglobin 0.4 Blood Gas A-a O2 Differential 24.7 H Oxyhemoglobin Percent 93.1 Total Hemoglobin 7.9 L Blood Gas Temperature 37.0 Blood Gas Modality ROOM AIR FiO2 21.0 Blood Gas Notified Whom JLD Blood Gas Notified Time 10/28/2016 9:11:04 AM Bedside Glucose 126 Medications Medications Current Medications Lactulose (Enulose) 20 gm QHS PO Last administered on 10/27/16 20:35; Admin Dose 20 GM; Start 10/24/16 at 21:00 Nifedipine (Procardia Xl) 30 mg DAILY PO Last administered on 10/27/16 08:36; Admin Dose 30 MG; Start 10/25/16 at 09:00 Atorvastatin Calcium (Lipitor) 10 mg DAILY@21 PO Last administered on 20:29; Admin Dose 10 MG; Start 10/24/16 at 21:00 Ondansetron HCl (Zofran Inj) 4 mg Q6H PRN IV NAUSEA AND/OR VOMITING; Start at 16:00 Acetaminophen (Tylenol Tab) 650 mg Q6H PRN PO PAIN LEVEL 1-3 OR FEVER Last administered on 10/25/16 17:17; Admin Dose 650 MG; Start 10/24/16 at 16:00 Docusate Sodium (Colace) 100 mg Q12H PRN PO CONSTIPATION; Start 10/24/16 at 16: 00 Pantoprazole (Protonix Iv) 40 mg DAILY@06 IV Last administered on 10/28/16 06: 24; Admin Dose 40 MG; Start 10/25/16 at 06:00 Diagnostic Test (Pha) (Accu-Chek) 1 ea 02 XX Last administered on 10/27/16 01: 25; Admin Dose 1 EA; Start 10/25/16 at 02:00 Miscellaneous Information 1 ea NOTE XX ; Start 10/24/16 at 21:30 Glucose (Glutose) 15 gm Q15M PRN PO DECREASED GLUCOSE; Start 10/24/16 at 21:30 Glucose (Glutose) 22.5 gm Q15M PRN PO DECREASED GLUCOSE; Start 10/24/16 at 21: 30 Dextrose (D50w Syringe) 25 ml Q15M PRN IV DECREASED GLUCOSE; Start 10/24/16 at 21:30 Dextrose (D50w Syringe) 50 ml Q15M PRN IV DECREASED GLUCOSE; Start 10/24/16 at 21:30 Glucagon (Glucagen) 1 mg Q15M PRN IM DECREASED GLUCOSE; Start 10/24/16 at 21:30 Glucose (Glutose) 15 gm Q15M PRN BUCCAL DECREASED GLUCOSE; Start 10/24/16 at 21 :30 Heparin Sodium (Porcine) (Heparin (5000 Units/0.5 ml)) 5,000 unit BID SC Last administered on 10/27/16 20:31; Admin Dose 5,000 UNIT; Start 10/25/16 at 09:00 Insulin Glargine (Lantus) 20 unit DAILY@20 SC Last administered on 10/27/16 20 :31; Admin Dose 20 UNIT; Start 10/25/16 at 20:00 Rifaximin (Xifaxan) 550 mg BID PO Last administered on 10/27/16 20:29; Admin Dose 550 MG; Start 10/25/16 at 21:00 STUART STANLEY MD Oct 28, 2016 10:13
[2016-10-28] MEDS: RIFAXIMIN 550 MG TAB PO SCH ×2 (10:27→20:06)
[2016-10-28] MEDS: NIFEdipine (XL) 30 MG TAB PO SCH (10:28)
[2016-10-28] MEDS: HEPARIN 5,000 UNIT/0.5 ML VIAL SC SCH ×2 (10:35→20:07)
--- NOTE | 2016-10-28 10:59 | CONS ---
Date/Time of Note Date/Time of Note DATE: 10/28/16 TIME: 10:58 Consult Date/Type/Reason Admit Date/Time Oct 24, 2016 at 12:07 Initial Consult Date 10/26/16 Type of Consultation: pulmonary Subjective Patient stable this morning Arterial blood gas shows adequate oxygenation on room air Pulmonary function testing pending Objective Vital Signs Date Time Temp Pulse Resp B/P Pulse Ox O2 Delivery O2 Flow Rate FiO2 10/28/16 08:27 Nasal Cannula 2.0 10/28/16 08:00 70 10/28/16 07:57 99.1 20 147/79 94 10/25/16 03:03 30 Intake and Output 10/27/16 10/27/16 10/28/16 15:00 23:00 07:00 Intake Total 600 ml 550 ml Balance 600 ml 550 ml Exam GENERAL: Morbidly obese gentleman comfortable at rest VITAL SIGNS: per chart NECK: Supple. No JVD or lymphadenopathy. CARDIAC EXAM: S1, S2. No added sounds or murmurs. CHEST: clear bilaterally, No added sounds, rales or wheezes ABDOMEN: Soft, nontender. No guarding or rebound. EXTREMITIES: No cyanosis, clubbing or edema. NEUROLOGIC: Generalized weakness. No focal deficits. Results/Medications Result Diagram: 10/28/16 0516 10/28/16 0516 Results 24 hrs Laboratory Tests Test 10/27/16 11:32 10/27/16 17:10 10/27/16 20:18 10/28/16 02:38 Bedside Glucose 185 219 188 201 Test 10/28/16 05:16 10/28/16 08:00 10/28/16 08:15 White Blood Count 3.6 L Red Blood Count 2.86 L Hemoglobin 7.5 L Hematocrit 26.1 L Mean Corpuscular Volume 91.3 Mean Corpuscular Hemoglobin 26.2 L Mean Corpuscular Hemoglobin Concent 28.7 L Red Cell Distribution Width 20.7 H Platelet Count 83 L Mean Platelet Volume 12.0 H Neutrophils % 53.7 Lymphocytes % 26.7 Monocytes % 10.2 Eosinophils % 8.8 H Basophils % 0.3 Nucleated Red Blood Cells % 0.0 Neutrophils # 2.0 Lymphocytes # 1.0 Monocytes # 0.4 Eosinophils # 0.3 Basophils # 0.0 Nucleated Red Blood Cells # 0.0 Sodium Level 142 Potassium Level 3.6 Chloride Level 105 Carbon Dioxide Level 28 Anion Gap 13 Blood Urea Nitrogen 41 H Creatinine 1.86 H Glucose Level 221 H Calcium Level 7.9 L Magnesium Level 2.1 Blood Gas Specimen Source Blood arterial Arterial Blood Date Drawn 10/28/2016 9:02:37 AM Arterial Blood pH (Temp corrected) 7.432 Arterial Blood pCO2 (Temp correct) 44.0 Arterial Blood pO2 (Temp corrected) 72.3 L Arterial Blood HCO3 28.7 H Arterial Blood Base Excess 4.0 H Arterial Blood Oxygen Saturation 94.0 L Oswaldo Test ACCEPTAB Arterial Blood Gas Puncture Site Left Radial Arterial Blood Carboxyhemoglobin 0.6 Arterial Blood Methemoglobin 0.4 Blood Gas A-a O2 Differential 24.7 H Oxyhemoglobin Percent 93.1 Total Hemoglobin 7.9 L Blood Gas Temperature 37.0 Blood Gas Modality ROOM AIR FiO2 21.0 Blood Gas Notified Whom JLD Blood Gas Notified Time 10/28/2016 9:11:04 AM Bedside Glucose 126 Medications Current Medications Lactulose (Enulose) 20 gm QHS PO Last administered on 10/27/16 20:35; Admin Dose 20 GM; Start 10/24/16 at 21:00 Nifedipine (Procardia Xl) 30 mg DAILY PO Last administered on 10/28/16 10:28; Admin Dose 30 MG; Start 10/25/16 at 09:00 Atorvastatin Calcium (Lipitor) 10 mg DAILY@21 PO Last administered on 20:29; Admin Dose 10 MG; Start 10/24/16 at 21:00 Ondansetron HCl (Zofran Inj) 4 mg Q6H PRN IV NAUSEA AND/OR VOMITING; Start at 16:00 Acetaminophen (Tylenol Tab) 650 mg Q6H PRN PO PAIN LEVEL 1-3 OR FEVER Last administered on 10/25/16 17:17; Admin Dose 650 MG; Start 10/24/16 at 16:00 Docusate Sodium (Colace) 100 mg Q12H PRN PO CONSTIPATION; Start 10/24/16 at 16: 00 Pantoprazole (Protonix Iv) 40 mg DAILY@06 IV Last administered on 10/28/16 06: 24; Admin Dose 40 MG; Start 10/25/16 at 06:00 Diagnostic Test (Pha) (Accu-Chek) 1 ea 02 XX Last administered on 10/27/16 01: 25; Admin Dose 1 EA; Start 10/25/16 at 02:00 Miscellaneous Information 1 ea NOTE XX ; Start 10/24/16 at 21:30 Glucose (Glutose) 15 gm Q15M PRN PO DECREASED GLUCOSE; Start 10/24/16 at 21:30 Glucose (Glutose) 22.5 gm Q15M PRN PO DECREASED GLUCOSE; Start 10/24/16 at 21: 30 Dextrose (D50w Syringe) 25 ml Q15M PRN IV DECREASED GLUCOSE; Start 10/24/16 at 21:30 Dextrose (D50w Syringe) 50 ml Q15M PRN IV DECREASED GLUCOSE; Start 10/24/16 at 21:30 Glucagon (Glucagen) 1 mg Q15M PRN IM DECREASED GLUCOSE; Start 10/24/16 at 21:30 Glucose (Glutose) 15 gm Q15M PRN BUCCAL DECREASED GLUCOSE; Start 10/24/16 at 21 :30 Heparin Sodium (Porcine) (Heparin (5000 Units/0.5 ml)) 5,000 unit BID SC Last administered on 10/28/16 10:35; Admin Dose 5,000 UNIT; Start 10/25/16 at 09:00 Insulin Glargine (Lantus) 20 unit DAILY@20 SC Last administered on 10/27/16 20 :31; Admin Dose 20 UNIT; Start 10/25/16 at 20:00 Rifaximin (Xifaxan) 550 mg BID PO Last administered on 10/28/16 10:27; Admin Dose 550 MG; Start 10/25/16 at 21:00 Assessment/Plan Chief Complaint/Hosp Course Assessment 1. Significant anemia, discussed with gastroenterology, no procedures at present would continue with iron replacement 2. Likely obstructive sleep apnea 3. Probable underlying chronic obstructive pulmonary disease with mild hypoxemia 4. Renal insufficiency 5. Morbid obesity Recommendations 1. No need for supplemental oxygen at home 2. Pulmonary function testing has been requested 3. GI recommendations 4. Renal recommendations 5. Outpatient sleep study Disposition Consider discharge planning Problems: GUERITA RESENDIZ MD, [facility] Oct 28, 2016 10:59
--- NOTE | 2016-10-28 13:51 | CONS ---
Date/Time of Note Date/Time of Note DATE: 10/28/16 TIME: 13:43 Assessment/Plan Assessment/Plan Chief Complaint/Hosp Course 61 yom w/ hx of hep C (treated), cirrhosis, DM, htn, hld, YEVGENIY and morbidity obesity who presented with weight gain and worsen dyspnea. Assessment: - Bradycardia: 2:1 heart block with brief episodes, did have pause 10/26 with 2 blocked sinus beats and pause of 4 seconds. pt asymptomatic at time, unclera if was sleeping. takeng off coreg now without prolonged pause. pt also with likey YEVGENIY untreated which could contribute to nocturnal bradycardia/heart block. - DM2- per primary - HTN stable- avoid avn blockers, ocnsider diuretic - OSA_ eval recommended - Obesity- wt loss recommended - HLD_ on statin Recs: - YEVGENIY eval + treatment - avoid avn blockers - cont tele monitoring while in house - no indication for ppm given lack of symptoms and was on bb/likely untreated YEVGENIY at time of pause Problems: Consultation Date/Type/Reason Admit Date/Time Oct 24, 2016 at 12:07 Initial Consult Date 10/26/16 Type of Consultation: Cardiology Reason for Consultation Bradycardia Referring Provider: JENY MORA MD 24 HR Interval Summary Free Text/Dictation no acute events. pt denies cp, sob, dizziness, fainting. sleeping, does snore. abusable. Tele reviewed: NSR, did have one episode of < 3 sec pause due to 2:1 heart block at 22:00, pt states he was sleeping, no dizziness at the time Detailed Summary Eyes: no complaints ENT: no complaints Respiratory: no complaints Cardiovascular: no complaints Gastrointestinal: no complaints Exam/Review of Systems Vital Signs Vitals Vital Signs Date Time Temp Pulse Resp B/P Pulse Ox O2 Delivery O2 Flow Rate FiO2 10/28/16 12:00 76 10/28/16 11:30 16 92 10/28/16 08:27 Nasal Cannula 2.0 10/28/16 07:57 99.1 147/79 10/25/16 03:03 30 Intake and Output 10/27/16 10/27/16 10/28/16 15:00 23:00 07:00 Intake Total 600 ml 550 ml Balance 600 ml 550 ml Exam Constitutional: alert, obese, oriented Psych: nl mood/affect, no complaints Head: atraumatic, normocephalic Eyes: EOMI, nl conjunctiva ENMT: nl external ears & nose Neck: non-tender, supple, No jvd Respiratory: clear to auscultation, normal air movement Cardiovascular: nl pulses, regular rate and rhythm, No S3, No S4, No systolic murmur Gastrointestinal: hepatomegaly, non-tender, soft, splenomegaly Musculoskeletal: nl extremities to inspection Extremities: normal pulses 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: SENIOR WEB ARCHITECT II-XII intact, nl mental status, nl speech, nl strength Lymph: nl lymph nodes Results Result Diagram: 10/28/16 0516 10/28/16 0516 Results 24 hrs Laboratory Tests Test 10/27/16 17:10 10/27/16 20:18 10/28/16 02:38 10/28/16 05:16 Bedside Glucose 219 188 201 White Blood Count 3.6 L Red Blood Count 2.86 L Hemoglobin 7.5 L Hematocrit 26.1 L Mean Corpuscular Volume 91.3 Mean Corpuscular Hemoglobin 26.2 L Mean Corpuscular Hemoglobin Concent 28.7 L Red Cell Distribution Width 20.7 H Platelet Count 83 L Mean Platelet Volume 12.0 H Neutrophils % 53.7 Lymphocytes % 26.7 Monocytes % 10.2 Eosinophils % 8.8 H Basophils % 0.3 Nucleated Red Blood Cells % 0.0 Neutrophils # 2.0 Lymphocytes # 1.0 Monocytes # 0.4 Eosinophils # 0.3 Basophils # 0.0 Nucleated Red Blood Cells # 0.0 Sodium Level 142 Potassium Level 3.6 Chloride Level 105 Carbon Dioxide Level 28 Anion Gap 13 Blood Urea Nitrogen 41 H Creatinine 1.86 H Glucose Level 221 H Calcium Level 7.9 L Magnesium Level 2.1 Test 10/28/16 08:00 10/28/16 08:15 10/28/16 12:41 Blood Gas Specimen Source Blood arterial Arterial Blood Date Drawn 10/28/2016 9:02:37 AM Arterial Blood pH (Temp corrected) 7.432 Arterial Blood pCO2 (Temp correct) 44.0 Arterial Blood pO2 (Temp corrected) 72.3 L Arterial Blood HCO3 28.7 H Arterial Blood Base Excess 4.0 H Arterial Blood Oxygen Saturation 94.0 L Oswaldo Test ACCEPTAB Arterial Blood Gas Puncture Site Left Radial Arterial Blood Carboxyhemoglobin 0.6 Arterial Blood Methemoglobin 0.4 Blood Gas A-a O2 Differential 24.7 H Oxyhemoglobin Percent 93.1 Total Hemoglobin 7.9 L Blood Gas Temperature 37.0 Blood Gas Modality ROOM AIR FiO2 21.0 Blood Gas Notified Whom JLD Blood Gas Notified Time 10/28/2016 9:11:04 AM Bedside Glucose 126 156 Medications Medications Current Medications Lactulose (Enulose) 20 gm QHS PO Last administered on 10/27/16 20:35; Admin Dose 20 GM; Start 10/24/16 at 21:00 Nifedipine (Procardia Xl) 30 mg DAILY PO Last administered on 10/28/16 10:28; Admin Dose 30 MG; Start 10/25/16 at 09:00 Atorvastatin Calcium (Lipitor) 10 mg DAILY@21 PO Last administered on 20:29; Admin Dose 10 MG; Start 10/24/16 at 21:00 Ondansetron HCl (Zofran Inj) 4 mg Q6H PRN IV NAUSEA AND/OR VOMITING; Start at 16:00 Acetaminophen (Tylenol Tab) 650 mg Q6H PRN PO PAIN LEVEL 1-3 OR FEVER Last administered on 10/25/16 17:17; Admin Dose 650 MG; Start 10/24/16 at 16:00 Docusate Sodium (Colace) 100 mg Q12H PRN PO CONSTIPATION; Start 10/24/16 at 16: 00 Pantoprazole (Protonix Iv) 40 mg DAILY@06 IV Last administered on 10/28/16 06: 24; Admin Dose 40 MG; Start 10/25/16 at 06:00 Diagnostic Test (Pha) (Accu-Chek) 1 ea 02 XX Last administered on 10/27/16 01: 25; Admin Dose 1 EA; Start 10/25/16 at 02:00 Miscellaneous Information 1 ea NOTE XX ; Start 10/24/16 at 21:30 Glucose (Glutose) 15 gm Q15M PRN PO DECREASED GLUCOSE; Start 10/24/16 at 21:30 Glucose (Glutose) 22.5 gm Q15M PRN PO DECREASED GLUCOSE; Start 10/24/16 at 21: 30 Dextrose (D50w Syringe) 25 ml Q15M PRN IV DECREASED GLUCOSE; Start 10/24/16 at 21:30 Dextrose (D50w Syringe) 50 ml Q15M PRN IV DECREASED GLUCOSE; Start 10/24/16 at 21:30 Glucagon (Glucagen) 1 mg Q15M PRN IM DECREASED GLUCOSE; Start 10/24/16 at 21:30 Glucose (Glutose) 15 gm Q15M PRN BUCCAL DECREASED GLUCOSE; Start 10/24/16 at 21 :30 Heparin Sodium (Porcine) (Heparin (5000 Units/0.5 ml)) 5,000 unit BID SC Last administered on 10/28/16 10:35; Admin Dose 5,000 UNIT; Start 10/25/16 at 09:00 Insulin Glargine (Lantus) 20 unit DAILY@20 SC Last administered on 10/27/16 20 :31; Admin Dose 20 UNIT; Start 10/25/16 at 20:00 Rifaximin (Xifaxan) 550 mg BID PO Last administered on 10/28/16 10:27; Admin Dose 550 MG; Start 10/25/16 at 21:00 Procedures Procedures CXR images reviewed clear lungs MARISEL MEEKS Oct 28, 2016 13:51
[2016-10-28] MEDS: ALBUTEROL/IPRATROPIUM (NEB) 3 ML AMP HHN SCH ×2 (14:00→20:44)
--- NOTE | 2016-10-28 14:30 | PN ---
DATE: SUBJECTIVE: The patient has increased fatigue, shortness breath is improving. OBJECTIVE: VITAL SIGNS: Temperature 99.1, blood pressure 147/79, heart rate in the 80s, regular, pulse ox 94% on 2 L. HEENT: Normocephalic, severe pallor without cyanosis. CHEST: Clinically clear. HEART: S1, S2 with no murmurs, rubs, or gallops. ABDOMEN: Soft, obese, nontender. Organomegaly could not be appreciated. EXTREMITIES: Decreased edema. Homans sign is negative. I AND O: 1150, output is 1150. LABORATORY DATA: Sodium 140, potassium 3.6, BUN 41, creatinine 1.86, hemoglobin 7.5, hematocrit 26. 1, platelet count 83,000. IMPRESSION: 1. Cirrhosis with portal hypertension secondary to hepatitis C. which was related to his blood mares sfusion. 2. Severe obesity with obstructive sleep apnea. 3. Severe anemia with pancytopenia secondary to cirrhosis. 4. Hyperammonemia with no significant encephalopathy clinically. In view of the constitutional symptoms, I think it will be better to transfuse the patient with 2 un its of packed cells, and the patient also has had severe bradycardia which has resolved since stoppi ng the carvedilol. PLAN: Will discuss with Dr. Mccullough regarding further workup including workup for coronary artery d isease. Recheck labs in a.m., increase activity, and observe. Dictated By: JENY MORA MD, SR/NTS Conf#: [id number] DID#: [id number]
[2016-10-28] MEDS: ATORVASTATIN 10 MG TAB PO SCH (20:06)
[2016-10-28] MEDS: LACTULOSE 30ML CUP PO SCH (20:06)
[2016-10-28] MEDS: INSULIN GLARGINE [LANtus] 3 ML PEN SC SCH (20:08)
[2016-10-29] VITALS (10 sets, daily range): BP systolic 138–171; BP diastolic 65–82; PULSE 73–87; RESP 16–21
[2016-10-29] MEDS: ALBUTEROL/IPRATROPIUM (NEB) 3 ML AMP HHN SCH ×4 (01:35→19:35)
[2016-10-29] MEDS: ACCU-CHEK XX SCH (02:00)
[2016-10-29] MEDS: FUROSEMIDE 40 MG INJ IV SCH ×2 (05:24→17:27)
[2016-10-29] MEDS: PANTOPRAZOLE 40 MG INJ IV SCH (05:24)
[2016-10-29 07:20] LABS: ADD SCAN DIFF NO
[2016-10-29 07:25] LABS: ABNORMAL IP MESSAGE 1; HEMATOCRIT 29.6 % (42.0-52.0); HEMOGLOBIN 8.6 g/dl (14.0-18.0); MEAN CORPUSCULAR HEMOGLOBIN 26.4 pg (29.0-33.0); MEAN CORPUSCULAR HGB CONC 29.1 g/dl (32.0-37.0); MEAN CORPUSCULAR VOLUME 90.8 fl (82.0-101.0); PLATELET COUNT 82 10^3/UL (140-415); RED BLOOD COUNT 3.26 10^6/ul (4.70-6.10); RED CELL DISTRIBUTION WIDTH 19.2 % (11.5-14.5); WHITE BLOOD COUNT 3.8 10^3/ul (4.8-10.8)
[2016-10-29 07:39] LABS: POTASSIUM 3.6 mmol/L (3.5-5.1)
[2016-10-29 07:42] LABS: CREATININE 1.84 mg/dl (0.61-1.24)
[2016-10-29 07:43] LABS: MAGNESIUM 2.1 mg/dl (1.7-2.5)
[2016-10-29] MEDS: NIFEdipine (XL) 30 MG TAB PO SCH (08:19)
[2016-10-29] MEDS: RIFAXIMIN 550 MG TAB PO SCH ×2 (08:19→20:10)
[2016-10-29] MEDS: INSULIN ASPART [NOVOLOG] 3 ML PEN SC SCH ×4 (08:20→20:15)
[2016-10-29] MEDS: HEPARIN 5,000 UNIT/0.5 ML VIAL SC SCH ×2 (08:20→20:13)
--- NOTE | 2016-10-29 10:05 | PN ---
DATE: SUBJECTIVE: The patient complains of extreme fatigue. Appetite is fair. PHYSICAL EXAMINATION: VITAL SIGNS: Temperature 98.3, blood pressure 130/65, O2 saturation is 95% room air. HEENT: Head normocephalic. Moderate pallor without cyanosis. CHEST: Clinically clear. ABDOMEN: Obese, nontender. EXTREMITIES: Trace edema. Homans sign is negative. LABORATORY DATA: Stool for OB is negative x1. Potassium 3.6, BUN 40, creatinine 1.84. WBC count 3. 8, hematocrit 29.6 after 2 units of packed cells, platelet count 82,000. Retic count 0.134. IMPRESSION: 1. Severe anemia, a combination of pancytopenia and iron deficiency anemia. 2. Cirrhosis with portal hypertension. 3. Obstructive sleep apnea. 4. Diabetes mellitus type 2, not adequately controlled as patient has not been compliant with diet with frequent snacking. 5. Chronic kidney disease. PLAN: Continue diuresis. Repeat CBC and chemistry in the a.m., transfuse if necessary. Increase t he Lantus insulin to 20 units subcutaneous. Dictated By: JENY MORA MD, SR/NTS Conf#: [id number] DID#: [id number]
[2016-10-29 10:10] LABS: ANISOCYTOSIS 1+; LYMPHOCYTES # 0.9 10^3/ul (0.8-2.9); MONOCYTE # 0.1 10^3/ul (0.3-0.9); NEUTROPHIL # 2.7 10^3/ul (1.6-7.5)
[2016-10-29 10:11] LABS: PLATELET ESTIMATE PLT APPEAR DECREASED
--- NOTE | 2016-10-29 11:18 | CONS ---
Date/Time of Note Date/Time of Note DATE: 10/29/16 TIME: 11:15 Assessment/Plan Assessment/Plan Additional Assessment/Plan Assessment recommendations; 1. Patient admitted for CHF and significant edema with slow but gradual interval improvement. 2. Renal insufficiency. 3. Anemia. 4. Hypertension. 5. Likely underlying sleep apnea. 6. No evidence of CO2 retention or hypoxemia. Continue current treatment. Patient will need to have a sleep study an outpatient basis. Bariatric surgery also is strongly recommended. Consultation Date/Type/Reason Admit Date/Time Oct 24, 2016 at 12:07 Initial Consult Date 10/25/16 Type of Consultation: Pulmonary Referring Provider: JENY MORA MD 24 HR Interval Summary Free Text/Dictation Patient condition is stable. Complains of occasional cough. Shortness of breath is gradually improving. Exam; elderly male, appears quite overweight currently in no distress awake and alert. Exam/Review of Systems Vital Signs Vitals Vital Signs Date Time Temp Pulse Resp B/P Pulse Ox O2 Delivery O2 Flow Rate FiO2 10/29/16 08:35 2.0 10/29/16 08:25 71 18 90 21 10/29/16 07:39 98.3 138/65 10/28/16 20:19 Nasal Cannula Intake and Output 10/28/16 10/28/16 10/29/16 15:00 23:00 07:00 Intake Total 1150 ml 600 ml Balance 1150 ml 600 ml Exam HEENT exam is; supple neck, JVD difficult to see because of short neck no neck masses, no thyromegaly. Chest exam is; clear to auscultation. S1-S2 audible, no murmurs. Regular rhythm. Abdomen exam; grossly protuberant. Nontender. Bowel sounds. Extremity exam; 2+ pitting edema lower extremities bilaterally. FILTER BED PLACER exam is; no focal deficit. Results Result Diagram: 10/29/16 0700 10/29/16 0700 Results 24 hrs Laboratory Tests Test 10/28/16 12:41 10/28/16 17:46 10/28/16 20:05 10/29/16 02:28 Bedside Glucose 156 251 H 242 H 247 H Test 10/29/16 07:00 10/29/16 07:54 White Blood Count 3.8 L Red Blood Count 3.26 L Hemoglobin 8.6 L Hematocrit 29.6 L Mean Corpuscular Volume 90.8 Mean Corpuscular Hemoglobin 26.4 L Mean Corpuscular Hemoglobin Concent 29.1 L Red Cell Distribution Width 19.2 H Platelet Count 82 L Mean Platelet Volume 11.0 H Neutrophils % 72.0 Band Neutrophils % 2.0 Lymphocytes % 23.0 Monocytes % 3.0 Neutrophils # 2.7 Lymphocytes # 0.9 Monocytes # 0.1 L Platelet Estimate PLT APPEAR DECREASED Anisocytosis 1+ Sodium Level 141 Potassium Level 3.6 Chloride Level 106 Carbon Dioxide Level 29 Anion Gap 10 Blood Urea Nitrogen 40 H Creatinine 1.84 H Glucose Level 183 Calcium Level 8.0 L Magnesium Level 2.1 Bedside Glucose 162 Medications Medications Current Medications Lactulose (Enulose) 20 gm QHS PO Last administered on 10/28/16 20:06; Admin Dose 20 GM; Start 10/24/16 at 21:00 Nifedipine (Procardia Xl) 30 mg DAILY PO Last administered on 10/29/16 08:19; Admin Dose 30 MG; Start 10/25/16 at 09:00 Atorvastatin Calcium (Lipitor) 10 mg DAILY@21 PO Last administered on 20:06; Admin Dose 10 MG; Start 10/24/16 at 21:00 Ondansetron HCl (Zofran Inj) 4 mg Q6H PRN IV NAUSEA AND/OR VOMITING; Start at 16:00 Acetaminophen (Tylenol Tab) 650 mg Q6H PRN PO PAIN LEVEL 1-3 OR FEVER Last administered on 10/25/16 17:17; Admin Dose 650 MG; Start 10/24/16 at 16:00 Docusate Sodium (Colace) 100 mg Q12H PRN PO CONSTIPATION; Start 10/24/16 at 16: 00 Pantoprazole (Protonix Iv) 40 mg DAILY@06 IV Last administered on 10/29/16 05: 24; Admin Dose 40 MG; Start 10/25/16 at 06:00 Diagnostic Test (Pha) (Accu-Chek) 1 ea 02 XX Last administered on 10/27/16 01: 25; Admin Dose 1 EA; Start 10/25/16 at 02:00 Miscellaneous Information 1 ea NOTE XX ; Start 10/24/16 at 21:30 Glucose (Glutose) 15 gm Q15M PRN PO DECREASED GLUCOSE; Start 4/14/17 at 21:30 Glucose (Glutose) 22.5 gm Q15M PRN PO DECREASED GLUCOSE; Start 10/24/16 at 21: 30 Dextrose (D50w Syringe) 25 ml Q15M PRN IV DECREASED GLUCOSE; Start 10/24/16 at 21:30 Dextrose (D50w Syringe) 50 ml Q15M PRN IV DECREASED GLUCOSE; Start 10/24/16 at 21:30 Glucagon (Glucagen) 1 mg Q15M PRN IM DECREASED GLUCOSE; Start 10/24/16 at 21:30 Glucose (Glutose) 15 gm Q15M PRN BUCCAL DECREASED GLUCOSE; Start 10/24/16 at 21 :30 Heparin Sodium (Porcine) (Heparin (5000 Units/0.5 ml)) 5,000 unit BID SC Last administered on 10/29/16 08:20; Admin Dose 5,000 UNIT; Start 10/25/16 at 09:00 Rifaximin (Xifaxan) 550 mg BID PO Last administered on 10/29/16 08:19; Admin Dose 550 MG; Start 10/25/16 at 21:00 Insulin Glargine (Lantus) 25 unit DAILY@20 SC ; Start 10/29/16 at 20:00 WALDO FRASER Oct 29, 2016 11:18
--- NOTE | 2016-10-29 11:30 | CONS ---
Date/Time of Note Date/Time of Note DATE: 10/29/16 TIME: 11:27 Assessment/Plan Assessment/Plan Chief Complaint/Hosp Course 61 yom w/ hx of hep C (treated), cirrhosis, DM, htn, hld, YEVGENIY and morbidity obesity who presented with weight gain and worsen dyspnea. Assessment: - Bradycardia: 2:1 heart block with brief episodes, did have pause 10/26 with 2 blocked sinus beats and pause of 4 seconds. pt asymptomatic at time, unclear if was sleeping. taken off coreg now without prolonged pause. pt also with likely YEVGENIY untreated which could contribute to nocturnal bradycardia/heart block. - DM2- per primary - HTN stable- avoid avn blockers, consider diuretic - OSA_ eval recommended - Obesity- wt loss recommended - HLD_ on statin Recs: - YEVGENIY eval + treatment as outpt - avoid avn blockers - cont tele monitoring while in house - no indication for ppm given lack of symptoms and was on bb/likely untreated YEVGENIY at time of pause - if bp remains elevated consider additional agent (non avn nicole) Problems: Consultation Date/Type/Reason Admit Date/Time Oct 24, 2016 at 12:07 Initial Consult Date 10/26/16 Type of Consultation: cardiology Referring Provider: JENY MORA MD 24 HR Interval Summary Free Text/Dictation no acute events. no alfredo overnight. no pauses. no dizziness, lightheadedness tele reviewed: NSR no events Detailed Summary ENT: no complaints Respiratory: no complaints Cardiovascular: no complaints Gastrointestinal: no complaints Exam/Review of Systems Vital Signs Vitals Vital Signs Date Time Temp Pulse Resp B/P Pulse Ox O2 Delivery O2 Flow Rate FiO2 10/29/16 08:35 2.0 10/29/16 08:25 71 18 90 21 10/29/16 07:39 98.3 138/65 10/28/16 20:19 Nasal Cannula Intake and Output 10/28/16 10/28/16 10/29/16 15:00 23:00 07:00 Intake Total 1150 ml 600 ml Balance 1150 ml 600 ml Exam Constitutional: alert, obese, oriented Psych: nl mood/affect, no complaints Head: atraumatic, normocephalic Eyes: EOMI, nl conjunctiva ENMT: nl external ears & nose Neck: non-tender, supple, No jvd Respiratory: clear to auscultation, normal air movement Cardiovascular: nl pulses, regular rate and rhythm, No S3, No S4, No systolic murmur Gastrointestinal: hepatomegaly, non-tender, soft, splenomegaly Musculoskeletal: nl extremities to inspection Extremities: normal pulses 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: MANAGER PROCUREMENT II-XII intact, nl mental status, nl speech, nl strength Lymph: nl lymph nodes Results Result Diagram: 10/29/16 0700 10/29/16 0700 Results 24 hrs Laboratory Tests Test 10/28/16 12:41 10/28/16 17:46 10/28/16 20:05 10/29/16 02:28 Bedside Glucose 156 251 H 242 H 247 H Test 10/29/16 07:00 10/29/16 07:54 White Blood Count 3.8 L Red Blood Count 3.26 L Hemoglobin 8.6 L Hematocrit 29.6 L Mean Corpuscular Volume 90.8 Mean Corpuscular Hemoglobin 26.4 L Mean Corpuscular Hemoglobin Concent 29.1 L Red Cell Distribution Width 19.2 H Platelet Count 82 L Mean Platelet Volume 11.0 H Neutrophils % 72.0 Band Neutrophils % 2.0 Lymphocytes % 23.0 Monocytes % 3.0 Neutrophils # 2.7 Lymphocytes # 0.9 Monocytes # 0.1 L Platelet Estimate PLT APPEAR DECREASED Anisocytosis 1+ Sodium Level 141 Potassium Level 3.6 Chloride Level 106 Carbon Dioxide Level 29 Anion Gap 10 Blood Urea Nitrogen 40 H Creatinine 1.84 H Glucose Level 183 Calcium Level 8.0 L Magnesium Level 2.1 Bedside Glucose 162 Medications Medications Current Medications Lactulose (Enulose) 20 gm QHS PO Last administered on 10/28/16 20:06; Admin Dose 20 GM; Start 10/24/16 at 21:00 Nifedipine (Procardia Xl) 30 mg DAILY PO Last administered on 10/29/16 08:19; Admin Dose 30 MG; Start 10/25/16 at 09:00 Atorvastatin Calcium (Lipitor) 10 mg DAILY@21 PO Last administered on 20:06; Admin Dose 10 MG; Start 10/24/16 at 21:00 Ondansetron HCl (Zofran Inj) 4 mg Q6H PRN IV NAUSEA AND/OR VOMITING; Start at 16:00 Acetaminophen (Tylenol Tab) 650 mg Q6H PRN PO PAIN LEVEL 1-3 OR FEVER Last administered on 10/25/16 17:17; Admin Dose 650 MG; Start 10/24/16 at 16:00 Docusate Sodium (Colace) 100 mg Q12H PRN PO CONSTIPATION; Start 10/24/16 at 16: 00 Pantoprazole (Protonix Iv) 40 mg DAILY@06 IV Last administered on 10/29/16 05: 24; Admin Dose 40 MG; Start 10/25/16 at 06:00 Diagnostic Test (Pha) (Accu-Chek) 1 ea 02 XX Last administered on 10/27/16 01: 25; Admin Dose 1 EA; Start 10/25/16 at 02:00 Miscellaneous Information 1 ea NOTE XX ; Start 10/24/16 at 21:30 Glucose (Glutose) 15 gm Q15M PRN PO DECREASED GLUCOSE; Start 10/24/16 at 21:30 Glucose (Glutose) 22.5 gm Q15M PRN PO DECREASED GLUCOSE; Start 10/24/16 at 21: 30 Dextrose (D50w Syringe) 25 ml Q15M PRN IV DECREASED GLUCOSE; Start 10/24/16 at 21:30 Dextrose (D50w Syringe) 50 ml Q15M PRN IV DECREASED GLUCOSE; Start 10/24/16 at 21:30 Glucagon (Glucagen) 1 mg Q15M PRN IM DECREASED GLUCOSE; Start 10/24/16 at 21:30 Glucose (Glutose) 15 gm Q15M PRN BUCCAL DECREASED GLUCOSE; Start 10/24/16 at 21 :30 Heparin Sodium (Porcine) (Heparin (5000 Units/0.5 ml)) 5,000 unit BID SC Last administered on 10/29/16 08:20; Admin Dose 5,000 UNIT; Start 10/25/16 at 09:00 Rifaximin (Xifaxan) 550 mg BID PO Last administered on 10/29/16 08:19; Admin Dose 550 MG; Start 10/25/16 at 21:00 Insulin Glargine (Lantus) 25 unit DAILY@20 SC ; Start 10/29/16 at 20:00 MARISEL MEEKS Oct 29, 2016 11:30
[2016-10-29] MEDS: ACETAMINOPHEN 325 MG TAB PO PRN (15:55)
[2016-10-29] MEDS: SUCRALFATE 1 GM TAB PO SCH ×2 (15:55→20:19)
[2016-10-29] MEDS ORDERED: DICYCLOMINE 10 MG CAP PO PRN (17:00)
--- NOTE | 2016-10-29 18:04 | CONS ---
Date/Time of Note Date/Time of Note DATE: 10/29/16 TIME: 18:03 Assessment/Plan Assessment/Plan Additional Assessment/Plan Additional Assessment/Plan Additional Assessment/Plan IMPRESSION: 1. Hepatitis C secondary to a blood transfusion, successfully treated with Harvoni. Patient has cirrhotic liver 1. Diabetes mellitus type 2. 2. Hypertension. 3. Overweight. 4. Shortness of breath, with lethargy. Rule out sleep apnea. Also cannot rule out hepatopulmonary syndrome 5. Anemia, iron deficiency ferritin is only 25 6. Mild elevation of ammonia 56 upper limit at this facility is 30 Plan Rifaximin 550 twice daily Continue present care Patient definitely needs EGD colonoscopy for iron deficiency anemia but he is high risk since he is short of breath even at rest. Patient condition needs to be optimized before we do endoscopy. Discussed with his Patient will need bariatric surgery after sleep study. We will start the patient on a PPI Also patient will be given p.o. tablets to control his pain Consultation Date/Type/Reason Admit Date/Time Oct 24, 2016 at 12:07 Initial Consult Date 10/25/16 Type of Consultation: cardiology Referring Provider: JENY MORA MD 24 HR Interval Summary Free Text/Dictation Patient complains of pain in the epigastric area radiating both to the right and left upper quadrant. Pain is aggravated by the movement. No nausea no vomiting Exam/Review of Systems Vital Signs Vitals Vital Signs Date Time Temp Pulse Resp B/P Pulse Ox O2 Delivery O2 Flow Rate FiO2 10/29/16 16:04 98.1 88 20 140/67 94 10/29/16 13:46 Nasal Cannula 2.0 10/29/16 08:25 21 Intake and Output 10/28/16 10/28/16 10/29/16 15:00 23:00 07:00 Intake Total 1150 ml 600 ml Balance 1150 ml 600 ml Exam Constitutional: alert, oriented, well developed Psych: nl mood/affect, no complaints Head: atraumatic, normocephalic Eyes: EOMI, PERRL, nl conjunctiva, nl lids, nl sclera ENMT: nl external ears & nose, nl lips & teeth, nl nasal mucosa & septum Neck: non-tender, supple Respiratory: clear to auscultation, normal air movement Cardiovascular: nl pulses, regular rate and rhythm Gastrointestinal: nl liver, spleen, non-tender, soft Musculoskeletal: nl extremities to inspection, nl gait and stance Extremities: normal pulses 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: 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 MANAGER II-XII intact, nl mental status, nl speech, nl strength Skin: nl turgor, No rash or lesions Lymph: nl lymph nodes Results Result Diagram: 10/29/16 0700 10/29/16 0700 Results 24 hrs Laboratory Tests Test 10/28/16 20:05 10/29/16 02:28 10/29/16 07:00 10/29/16 07:54 Bedside Glucose 242 H 247 H 162 White Blood Count 3.8 L Red Blood Count 3.26 L Hemoglobin 8.6 L Hematocrit 29.6 L Mean Corpuscular Volume 90.8 Mean Corpuscular Hemoglobin 26.4 L Mean Corpuscular Hemoglobin Concent 29.1 L Red Cell Distribution Width 19.2 H Platelet Count 82 L Mean Platelet Volume 11.0 H Neutrophils % 72.0 Band Neutrophils % 2.0 Lymphocytes % 23.0 Monocytes % 3.0 Neutrophils # 2.7 Lymphocytes # 0.9 Monocytes # 0.1 L Platelet Estimate PLT APPEAR DECREASED Anisocytosis 1+ Sodium Level 141 Potassium Level 3.6 Chloride Level 106 Carbon Dioxide Level 29 Anion Gap 10 Blood Urea Nitrogen 40 H Creatinine 1.84 H Glucose Level 183 Calcium Level 8.0 L Magnesium Level 2.1 Test 10/29/16 12:18 10/29/16 17:10 Bedside Glucose 242 H 251 H Medications Medications Current Medications Lactulose (Enulose) 20 gm QHS PO Last administered on 10/28/16 20:06; Admin Dose 20 GM; Start 10/24/16 at 21:00 Nifedipine (Procardia Xl) 30 mg DAILY PO Last administered on 10/29/16 08:19; Admin Dose 30 MG; Start 10/25/16 at 09:00 Atorvastatin Calcium (Lipitor) 10 mg DAILY@21 PO Last administered on 20:06; Admin Dose 10 MG; Start 10/24/16 at 21:00 Ondansetron HCl (Zofran Inj) 4 mg Q6H PRN IV NAUSEA AND/OR VOMITING; Start at 16:00 Acetaminophen (Tylenol Tab) 650 mg Q6H PRN PO PAIN LEVEL 1-3 OR FEVER Last administered on 10/29/16 15:55; Admin Dose 650 MG; Start 10/24/16 at 16:00 Docusate Sodium (Colace) 100 mg Q12H PRN PO CONSTIPATION; Start 10/24/16 at 16: 00 Diagnostic Test (Pha) (Accu-Chek) 1 ea 02 XX Last administered on 10/27/16 01: 25; Admin Dose 1 EA; Start 10/25/16 at 02:00 Miscellaneous Information 1 ea NOTE XX ; Start 10/24/16 at 21:30 Glucose (Glutose) 15 gm Q15M PRN PO DECREASED GLUCOSE; Start 10/24/16 at 21:30 Glucose (Glutose) 22.5 gm Q15M PRN PO DECREASED GLUCOSE; Start 10/24/16 at 21: 30 Dextrose (D50w Syringe) 25 ml Q15M PRN IV DECREASED GLUCOSE; Start 10/24/16 at 21:30 Dextrose (D50w Syringe) 50 ml Q15M PRN IV DECREASED GLUCOSE; Start 10/24/16 at 21:30 Glucagon (Glucagen) 1 mg Q15M PRN IM DECREASED GLUCOSE; Start 10/24/16 at 21:30 Glucose (Glutose) 15 gm Q15M PRN BUCCAL DECREASED GLUCOSE; Start 10/24/16 at 21 :30 Heparin Sodium (Porcine) (Heparin (5000 Units/0.5 ml)) 5,000 unit BID SC Last administered on 10/29/16 08:20; Admin Dose 5,000 UNIT; Start 10/25/16 at 09:00 Rifaximin (Xifaxan) 550 mg BID PO Last administered on 10/29/16 08:19; Admin Dose 550 MG; Start 10/25/16 at 21:00 Insulin Glargine (Lantus) 25 unit DAILY@20 SC ; Start 10/29/16 at 20:00 Sucralfate (Carafate) 1 gm 0630,1130,1630,21 PO Last administered on 10/29/16 15:55; Admin Dose 1 GM; Start 10/29/16 at 16:30 Dicyclomine HCl (Bentyl) 10 mg TID PRN PO ABD PAIN; Start 10/29/16 at 17:00 Pantoprazole (Protonix Tab) 40 mg DAILY@06 PO ; Start 10/30/16 at 06:00 STUART STANLEY MD Oct 29, 2016 18:04
[2016-10-29] MEDS: ATORVASTATIN 10 MG TAB PO SCH (20:10)
[2016-10-29] MEDS: LACTULOSE 30ML CUP PO SCH (20:10)
[2016-10-29] MEDS: INSULIN GLARGINE [LANtus] 3 ML PEN SC SCH (20:14)
[2016-10-29] MEDS ORDERED: morphine 4 MG/ML VIAL IV PRN (21:30)
[2016-10-30] VITALS (10 sets, daily range): BP systolic 131–168; BP diastolic 59–83; PULSE 71–87; RESP 18–20
[2016-10-30] MEDS: ALBUTEROL/IPRATROPIUM (NEB) 3 ML AMP HHN SCH ×4 (01:38→19:55)
[2016-10-30] MEDS: ACCU-CHEK XX SCH (02:00)
[2016-10-30] MEDS: ACETAMINOPHEN 325 MG TAB PO PRN ×2 (04:00→11:38)
[2016-10-30] MEDS: SUCRALFATE 1 GM TAB PO SCH ×4 (05:39→20:57)
[2016-10-30] MEDS: PANTOPRAZOLE (EC) 40 MG TAB PO SCH (05:39)
[2016-10-30] MEDS: FUROSEMIDE 40 MG INJ IV SCH ×2 (05:40→17:08)
[2016-10-30 07:03] LABS: ADD SCAN DIFF NO
[2016-10-30 07:12] LABS: ABNORMAL IP MESSAGE 1; BASOPHILS % 0.5 % (0.0-2.0); EOSINOPHILS # 0.4 10^3/ul (0.0-0.5); EOSINOPHILS % 9.3 % (0.0-7.0); HEMATOCRIT 29.2 % (42.0-52.0); HEMOGLOBIN 8.7 g/dl (14.0-18.0); LYMPHOCYTES # 0.9 10^3/ul (0.8-2.9); LYMPHOCYTES % 20.4 % (15.0-51.0); MEAN CORPUSCULAR HEMOGLOBIN 26.9 pg (29.0-33.0); MEAN CORPUSCULAR HGB CONC 29.8 g/dl (32.0-37.0); MEAN CORPUSCULAR VOLUME 90.1 fl (82.0-101.0); MONOCYTE # 0.5 10^3/ul (0.3-0.9); MONOCYTES % 10.7 % (0.0-11.0); NEUTROPHIL # 2.5 10^3/ul (1.6-7.5); NEUTROPHILS % 58.9 % (39.0-77.0); PLATELET COUNT 84 10^3/UL (140-415); RED BLOOD COUNT 3.24 10^6/ul (4.70-6.10); RED CELL DISTRIBUTION WIDTH 19.2 % (11.5-14.5); WHITE BLOOD COUNT 4.2 10^3/ul (4.8-10.8)
[2016-10-30 07:20] LABS: AMYLASE 60 U/L (11-123); POTASSIUM 3.7 mmol/L (3.5-5.1)
[2016-10-30 07:23] LABS: CREATININE 1.81 mg/dl (0.61-1.24)
[2016-10-30 07:24] LABS: CALCIUM 8.2 mg/dl (8.4-10.2); MAGNESIUM 2.1 mg/dl (1.7-2.5)
[2016-10-30] MEDS: INSULIN ASPART [NOVOLOG] 3 ML PEN SC SCH ×4 (08:00→20:59)
[2016-10-30] MEDS: NIFEdipine (XL) 30 MG TAB PO SCH (08:24)
[2016-10-30] MEDS: RIFAXIMIN 550 MG TAB PO SCH ×2 (08:24→20:57)
[2016-10-30] MEDS: HEPARIN 5,000 UNIT/0.5 ML VIAL SC SCH ×2 (08:32→21:00)
--- NOTE | 2016-10-30 11:14 | CONS ---
Date/Time of Note Date/Time of Note DATE: 10/30/16 TIME: 11:12 Consult Date/Type/Reason Admit Date/Time Oct 24, 2016 at 12:07 Initial Consult Date 10/26/16 Type of Consultation: pulmonary Ordering Provider: JENY MORA MD Subjective Patient continues to complain of left upper quadrant abdominal pain Has mild shortness breath on minimal exertion Objective Vital Signs Date Time Temp Pulse Resp B/P Pulse Ox O2 Delivery O2 Flow Rate FiO2 10/30/16 08:20 71 10/30/16 08:05 98.1 19 153/80 95 10/30/16 08:04 Nasal Cannula 2.0 10/29/16 08:25 21 Intake and Output 10/29/16 10/29/16 10/30/16 15:00 23:00 07:00 Intake Total 900 ml 600 ml Balance 900 ml 600 ml Results/Medications Result Diagram: 10/30/16 0638 10/30/16 0638 Results 24 hrs Laboratory Tests Test 10/29/16 12:18 10/29/16 17:10 10/29/16 20:12 10/30/16 02:16 Bedside Glucose 242 H 251 H 251 H 281 H Test 10/30/16 06:38 10/30/16 08:14 White Blood Count 4.2 L Red Blood Count 3.24 L Hemoglobin 8.7 L Hematocrit 29.2 L Mean Corpuscular Volume 90.1 Mean Corpuscular Hemoglobin 26.9 L Mean Corpuscular Hemoglobin Concent 29.8 L Red Cell Distribution Width 19.2 H Platelet Count 84 L Mean Platelet Volume 11.0 H Neutrophils % 58.9 Lymphocytes % 20.4 Monocytes % 10.7 Eosinophils % 9.3 H Basophils % 0.5 Nucleated Red Blood Cells % 0.0 Neutrophils # 2.5 Lymphocytes # 0.9 Monocytes # 0.5 Eosinophils # 0.4 Basophils # 0.0 Nucleated Red Blood Cells # 0.0 Sodium Level 141 Potassium Level 3.7 Chloride Level 104 Carbon Dioxide Level 29 Anion Gap 12 Blood Urea Nitrogen 40 H Creatinine 1.81 H Glucose Level 173 Calcium Level 8.2 L Magnesium Level 2.1 Amylase Level 60 Lipase 230 Bedside Glucose 130 Medications Current Medications Lactulose (Enulose) 20 gm QHS PO Last administered on 10/29/16t 20:10; Admin Dose 20 GM; Start 10/24/16 at 21:00 Nifedipine (Procardia Xl) 30 mg DAILY PO Last administered on 10/30/16 08:24; Admin Dose 30 MG; Start 10/25/16 at 09:00 Atorvastatin Calcium (Lipitor) 10 mg DAILY@21 PO Last administered on 20:10; Admin Dose 10 MG; Start 10/24/16 at 21:00 Ondansetron HCl (Zofran Inj) 4 mg Q6H PRN IV NAUSEA AND/OR VOMITING; Start at 16:00 Acetaminophen (Tylenol Tab) 650 mg Q6H PRN PO PAIN LEVEL 1-3 OR FEVER Last administered on 10/30/16 04:00; Admin Dose 650 MG; Start 10/24/16 at 16:00 Docusate Sodium (Colace) 100 mg Q12H PRN PO CONSTIPATION; Start 10/24/16 at 16: 00 Diagnostic Test (Pha) (Accu-Chek) 1 ea 02 XX Last administered on 10/27/16 01: 25; Admin Dose 1 EA; Start 10/25/16 at 02:00 Miscellaneous Information 1 ea NOTE XX ; Start 10/24/16 at 21:30 Glucose (Glutose) 15 gm Q15M PRN PO DECREASED GLUCOSE; Start 10/24/16 at 21:30 Glucose (Glutose) 22.5 gm Q15M PRN PO DECREASED GLUCOSE; Start 10/24/16 at 21: 30 Dextrose (D50w Syringe) 25 ml Q15M PRN IV DECREASED GLUCOSE; Start 10/24/16 at 21:30 Dextrose (D50w Syringe) 50 ml Q15M PRN IV DECREASED GLUCOSE; Start 10/24/16 at 21:30 Glucagon (Glucagen) 1 mg Q15M PRN IM DECREASED GLUCOSE; Start 10/24/16 at 21:30 Glucose (Glutose) 15 gm Q15M PRN BUCCAL DECREASED GLUCOSE; Start 10/24/16 at 21 :30 Heparin Sodium (Porcine) (Heparin (5000 Units/0.5 ml)) 5,000 unit BID SC Last administered on 10/30/16 08:32; Admin Dose 5,000 UNIT; Start 10/25/16 at 09:00 Rifaximin (Xifaxan) 550 mg BID PO Last administered on 10/30/16 08:24; Admin Dose 550 MG; Start 10/25/16 at 21:00 Insulin Glargine (Lantus) 25 unit DAILY@20 SC Last administered on 10/29/16 20 :14; Admin Dose 25 UNIT; Start 10/29/16 at 20:00 Sucralfate (Carafate) 1 gm 0630,1130,1630,21 PO Last administered on 10/30/16 05:39; Admin Dose 1 GM; Start 10/29/16 at 16:30 Dicyclomine HCl (Bentyl) 10 mg TID PRN PO ABD PAIN Last administered on 18:45; Admin Dose 10 MG; Start 10/29/16 at 17:00 Pantoprazole (Protonix Tab) 40 mg DAILY@06 PO Last administered on 10/30/16 05 :39; Admin Dose 40 MG; Start 10/30/16 at 06:00 Morphine Sulfate (morphine) 4 mg Q4H PRN IV pain; Start 10/29/16 at 21:30 Assessment/Plan Chief Complaint/Hosp Course Assessment 1. Significant anemia, discussed with gastroenterology, no procedures at present would continue with iron replacement history of hepatitis C status post treatment continues with rifaximin 2. Likely obstructive sleep apnea 3. Probable underlying chronic obstructive pulmonary disease with mild hypoxemia 4. Renal insufficiency 5. Morbid obesity Recommendations 1. No need for supplemental oxygen at home based on arterial blood gas 2. Pulmonary function testing shows significant restrictive airways disease with significant reversibility to bronchodilators, severely decreased DLCO would be consistent with interstitial edema however this was not seen on lower lung ramos and CT abdomen and pelvis. I will order CT chest noncontrast to evaluate entire lung parenchyma although clinically not consistent with interstitial fibrosis 3. GI recommendations 4. Renal recommendations 5. Outpatient sleep study Disposition Consider discharge planning Problems: GUERITA RESENDIZ MD, [facility] Oct 30, 2016 11:14
--- NOTE | 2016-10-30 13:50 | PN ---
DATE: 10/30/2016 SUBJECTIVE: Patient complaining of left upper quadrant pain, also some cough, nonproductive. No co nstipation, diarrhea, no dysuria. Denies any pleuritic pain. Appetite is fair. PHYSICAL EXAMINATION GENERAL: The patient is awake, alert. VITAL SIGNS: Temperature 98.2, heart rate 80 per minute regular, blood pressure 150/74, O2 sats 94% on 2 liters. Mild pallor without cyanosis. LUNGS: Clinically clear. Mild tenderness on palpation of the left upper quadrant. Splenomegaly co uld not be appreciated because of obesity. EXTREMITIES: There is 2+ edema. SKIN: Dry. Homans sign is negative. LABORATORY DATA: WBC count 4.2, hematocrit 29.2, platelet count is 84,000. Sodium 141, potassium 3 .7, BUN 40, creatinine 1.81. IMPRESSION: 1. Left upper quadrant pain, probably related to splenomegaly. 2. Anemia secondary to pancytopenia and complement of iron deficiency anemia. No evidence of gastr ointestinal blood loss. 3. Obstructive sleep apnea. 4. Diabetes mellitus type 2. 5. Chronic kidney disease. Dr. Barrios's recommendations noted. PLAN: We will proceed with a CT of the chest. Will request radiology to take a look at the left up per quadrant as well. Will discuss with Dr. Arteaga. Will mobilize. Continue physical therapy. Dictated By: JENY MORA MD, SR/PEG Conf#: [id number] DID#: [id number]
[2016-10-30] MEDS ORDERED: POTASSIUM CHLORIDE (SR) 10 MEQ TAB PO ONE (14:00)
--- NOTE | 2016-10-30 18:28 | RADRPT ---
PROCEDURE: HIGH RESOLUTION CHEST CT CLINICAL INDICATION: Shortness of breath TECHNIQUE: Volumetrically acquired images of the thorax obtained without intravenous contrast were reformatted in the axial, coronal, and sagittal planes. Limited expiratory images were also acquir ed. CTDI = 27.0 mGy; DLP = 1022 mGy-cm. One or more of the following dose reduction technique were used: Automatic exposure control, adjustment of the mA and/or kV according to patient size, and use of iterative reconstruction technique. COMPARISON: Chest x-ray from 10/27/2016. FINDINGS: LOWER NECK/CHEST WALL: Normal. AIRWAYS: The trachea and large airways are normal. The expiratory images demonstrate no significant lobular air trapping. Minimal bronchial wall thickening is seen. LUNGS: There is a 2.5 cm elongated nodule seen in the left upper lobe (series 3 image 49). Just adj acent to this nodule or areas of tree in bud nodularity. Benign appearing subpleural nodules are se en in the right lung (series 3 image 54), demonstrate calcification and suggestive of prior granulom atous disease. No suspicious nodules, masses, or consolidation. No significant fibrosis. PLEURA: Unremarkable. No pleural thickening or effusions. LYMPH NODES: No significant axillary, hilar, or mediastinal lymphadenopathy by CT size criteria. Sc attered calcified mediastinal lymph nodes are seen suggestive of prior granulomatous disease. CARDIAC: The heart size is normal. No pericardial effusion. VASCULAR: The main pulmonary artery measures 37 mm. The ascending aorta measures 40 mm at the leve l of the main pulmonary artery. Aortic and coronary atherosclerotic calcifications are present. OSSEOUS: No suspicious osseous lesions. Scattered degenerative changes of the thoracic spine is vis ualized. Limited evaluation of the upper abdomen demonstrates a nodular liver consistent with cirrhosis as we ll as numerous enlarged portal systemic collaterals consistent with portal hypertension. A small am ount of perihepatic ascites is seen.. IMPRESSION: 1. Minimal bronchial wall thickening may be sequela of bronchitis, asthma, or other nonspecific air way inflammation. No significant primary interstitial lung process or fibrosis.. 2. 2.5 cm nodule seen in the left upper lobe with satellite tree in bud nodularity is likely sequela of prior granulomatous disease. Attention on follow-up is recommended. Calcified mediastinal lymp h nodes as well as calcified subpleural nodule seen in the right lung are also sequela of prior gran ulomatous disease. 3. Nodular liver consistent with cirrhosis with evidence of portal hypertension including mild asci shira and enlarged portal systemic collateral venous vessels. 4. Mild cardiomegaly with aortic and coronary atherosclerosis. 5. Ascending aortic ectasia. 6.Enlargement of the main pulmonary artery suggests pulmonary arterial hypertension. RPTAT:PP .Poncho Apple MD, MD Date Time Electronically viewed and signed by .Poncho Apple MD, on 10/30/2016 18:27 .V/
--- NOTE | 2016-10-30 19:17 | CONS ---
Date/Time of Note Date/Time of Note DATE: 10/30/16 TIME: 19:15 Assessment/Plan Assessment/Plan Additional Assessment/Plan Additional Assessment/Plan IMPRESSION: 1. Hepatitis C secondary to a blood transfusion, successfully treated with Harvoni. Patient has cirrhotic liver 1. Diabetes mellitus type 2. 2. Hypertension. 3. Overweight. 4. Shortness of breath, with lethargy. Rule out sleep apnea. Also cannot rule out hepatopulmonary syndrome 5. Anemia, iron deficiency ferritin is only 25 6. Mild elevation of ammonia 56 upper limit at this facility is 30 7. Epigastric and left upper quadrant pain mostly of muscular origin. 8. Pulmonary hypertension, portal hypertension Plan Continue PPI and Carafate NSAID to control his pain. Weight loss Consultation Date/Type/Reason Admit Date/Time Oct 24, 2016 at 12:07 Initial Consult Date 10/25/16 Type of Consultation: pulmonary Referring Provider: JENY MORA MD 24 HR Interval Summary Free Text/Dictation Patient complains of epigastric and left upper quadrant pain. Pain is aggravated by the movement Exam/Review of Systems Vital Signs Vitals Vital Signs Date Time Temp Pulse Resp B/P Pulse Ox O2 Delivery O2 Flow Rate FiO2 10/30/16 16:26 98.0 82 18 137/79 100 10/30/16 15:03 Nasal Cannula 2.0 10/29/16 08:25 21 Intake and Output 10/29/16 10/29/16 10/30/16 15:00 23:00 07:00 Intake Total 900 ml 600 ml Balance 900 ml 600 ml Exam Constitutional: alert, oriented, well developed Psych: nl mood/affect, no complaints Head: atraumatic, normocephalic Eyes: EOMI, PERRL, nl conjunctiva, nl lids, nl sclera ENMT: nl external ears & nose, nl lips & teeth, nl nasal mucosa & septum Neck: non-tender, supple Respiratory: clear to auscultation, normal air movement Cardiovascular: nl pulses, regular rate and rhythm Gastrointestinal: nl liver, spleen, non-tender, soft Musculoskeletal: nl extremities to inspection, nl gait and stance Extremities: normal pulses 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: ECHO TECHNOLOGIST II-XII intact, nl mental status, nl speech, nl strength Skin: nl turgor, No rash or lesions Lymph: nl lymph nodes Results Result Diagram: 10/30/1638 10/30/16637 Results 24 hrs Laboratory Tests Test 10/29/16 20:12 10/30/16 02:16 10/30/16 06:38 10/30/16 08:14 Bedside Glucose 251 H 281 H 130 White Blood Count 4.2 L Red Blood Count 3.24 L Hemoglobin 8.7 L Hematocrit 29.2 L Mean Corpuscular Volume 90.1 Mean Corpuscular Hemoglobin 26.9 L Mean Corpuscular Hemoglobin Concent 29.8 L Red Cell Distribution Width 19.2 H Platelet Count 84 L Mean Platelet Volume 11.0 H Neutrophils % 58.9 Lymphocytes % 20.4 Monocytes % 10.7 Eosinophils % 9.3 H Basophils % 0.5 Nucleated Red Blood Cells % 0.0 Neutrophils # 2.5 Lymphocytes # 0.9 Monocytes # 0.5 Eosinophils # 0.4 Basophils # 0.0 Nucleated Red Blood Cells # 0.0 Sodium Level 141 Potassium Level 3.7 Chloride Level 104 Carbon Dioxide Level 29 Anion Gap 12 Blood Urea Nitrogen 40 H Creatinine 1.81 H Glucose Level 173 Calcium Level 8.2 L Magnesium Level 2.1 Amylase Level 60 Lipase 230 Test 10/30/16 11:40 10/30/16 17:02 Bedside Glucose 223 H 275 H Medications Medications Current Medications Lactulose (Enulose) 20 gm QHS PO Last administered on 10/29/16 20:10; Admin Dose 20 GM; Start 10/24/16 at 21:00 Nifedipine (Procardia Xl) 30 mg DAILY PO Last administered on 10/30/16 08:24; Admin Dose 30 MG; Start 10/25/16 at 09:00 Atorvastatin Calcium (Lipitor) 10 mg DAILY@21 PO Last administered on 20:10; Admin Dose 10 MG; Start 10/24/16 at 21:00 Ondansetron HCl (Zofran Inj) 4 mg Q6H PRN IV NAUSEA AND/OR VOMITING; Start at 16:00 Acetaminophen (Tylenol Tab) 650 mg Q6H PRN PO PAIN LEVEL 1-3 OR FEVER Last administered on 10/30/16 11:38; Admin Dose 650 MG; Start 10/24/16 at 16:00 Docusate Sodium (Colace) 100 mg Q12H PRN PO CONSTIPATION; Start 10/24/16 at 16: 00 Diagnostic Test (Pha) (Accu-Chek) 1 ea 02 XX Last administered on 10/27/16 01: 25; Admin Dose 1 EA; Start 10/25/16 at 02:00 Miscellaneous Information 1 ea NOTE XX ; Start 10/24/16 at 21:30 Glucose (Glutose) 15 gm Q15M PRN PO DECREASED GLUCOSE; Start 10/24/16 at 21:30 Glucose (Glutose) 22.5 gm Q15M PRN PO DECREASED GLUCOSE; Start 10/24/16 at 21: 30 Dextrose (D50w Syringe) 25 ml Q15M PRN IV DECREASED GLUCOSE; Start 10/24/16 at 21:30 Dextrose (D50w Syringe) 50 ml Q15M PRN IV DECREASED GLUCOSE; Start 10/24/16 at 21:30 Glucagon (Glucagen) 1 mg Q15M PRN IM DECREASED GLUCOSE; Start 10/24/16 at 21:30 Glucose (Glutose) 15 gm Q15M PRN BUCCAL DECREASED GLUCOSE; Start 10/24/16 at 21 :30 Heparin Sodium (Porcine) (Heparin (5000 Units/0.5 ml)) 5,000 unit BID SC Last administered on 10/30/16 08:32; Admin Dose 5,000 UNIT; Start 10/25/16 at 09:00 Rifaximin (Xifaxan) 550 mg BID PO Last administered on 10/30/16 08:24; Admin Dose 550 MG; Start 10/25/16 at 21:00 Insulin Glargine (Lantus) 25 unit DAILY@20 SC Last administered on 10/29/16 20 :14; Admin Dose 25 UNIT; Start 10/29/16 at 20:00 Sucralfate (Carafate) 1 gm 0630,1130,1630,21 PO Last administered on 10/30/16 15:39; Admin Dose 1 GM; Start 10/29/16 at 16:30 Dicyclomine HCl (Bentyl) 10 mg TID PRN PO ABD PAIN Last administered on 18:45; Admin Dose 10 MG; Start 10/29/16 at 17:00 Pantoprazole (Protonix Tab) 40 mg DAILY@06 PO Last administered on 10/30/16 05 :39; Admin Dose 40 MG; Start 10/30/16 at 06:00 Morphine Sulfate (morphine) 4 mg Q4H PRN IV pain; Start 10/29/16 at 21:30 STUART STANLEY MD Oct 30, 2016 19:17
[2016-10-30] MEDS: INSULIN GLARGINE [LANtus] 3 ML PEN SC SCH (20:12)
[2016-10-30] MEDS: ATORVASTATIN 10 MG TAB PO SCH (20:57)
[2016-10-30] MEDS: LACTULOSE 30ML CUP PO SCH (20:57)
[2016-10-31] VITALS (11 sets, daily range): BP systolic 139–181; BP diastolic 69–85; PULSE 81–101; RESP 18–20
[2016-10-31] MEDS: ACCU-CHEK XX SCH (01:57)
[2016-10-31] MEDS: ALBUTEROL/IPRATROPIUM (NEB) 3 ML AMP HHN SCH ×3 (01:59→14:17)
[2016-10-31] MEDS: PANTOPRAZOLE (EC) 40 MG TAB PO SCH (05:55)
[2016-10-31] MEDS: FUROSEMIDE 40 MG INJ IV SCH ×2 (05:55→19:45)
[2016-10-31] MEDS: SUCRALFATE 1 GM TAB PO SCH ×4 (06:39→21:51)
[2016-10-31 07:51] LABS: ADD SCAN DIFF NO
[2016-10-31 07:56] LABS: ABNORMAL IP MESSAGE 1; BASOPHILS % 0.7 % (0.0-2.0); EOSINOPHILS # 0.5 10^3/ul (0.0-0.5); EOSINOPHILS % 10.4 % (0.0-7.0); HEMATOCRIT 30.1 % (42.0-52.0); HEMOGLOBIN 8.8 g/dl (14.0-18.0); LYMPHOCYTES # 0.8 10^3/ul (0.8-2.9); MEAN CORPUSCULAR HEMOGLOBIN 26.6 pg (29.0-33.0); MEAN CORPUSCULAR HGB CONC 29.2 g/dl (32.0-37.0); MEAN CORPUSCULAR VOLUME 90.9 fl (82.0-101.0); MEAN PLATELET VOLUME 11.6 fl (7.4-10.4); MONOCYTE # 0.5 10^3/ul (0.3-0.9); MONOCYTES % 10.7 % (0.0-11.0); NEUTROPHIL # 2.6 10^3/ul (1.6-7.5); NEUTROPHILS % 58.7 % (39.0-77.0); PLATELET COUNT 95 10^3/UL (140-415); RED BLOOD COUNT 3.31 10^6/ul (4.70-6.10); RED CELL DISTRIBUTION WIDTH 19.1 % (11.5-14.5); WHITE BLOOD COUNT 4.4 10^3/ul (4.8-10.8)
[2016-10-31] MEDS: INSULIN ASPART [NOVOLOG] 3 ML PEN SC SCH ×4 (07:56→21:00)
[2016-10-31 08:08] LABS: POTASSIUM 3.8 mmol/L (3.5-5.1)
[2016-10-31 08:10] LABS: CREATININE 1.96 mg/dl (0.61-1.24)
[2016-10-31 08:11] LABS: CALCIUM 8.6 mg/dl (8.4-10.2); MAGNESIUM 2.1 mg/dl (1.7-2.5)
[2016-10-31] MEDS: RIFAXIMIN 550 MG TAB PO SCH ×2 (08:41→21:14)
[2016-10-31] MEDS: NIFEdipine (XL) 30 MG TAB PO SCH (08:42)
[2016-10-31] MEDS: MELOXICAM 15 MG TAB PO SCH (08:42)
[2016-10-31] MEDS: HEPARIN 5,000 UNIT/0.5 ML VIAL SC SCH ×2 (08:43→21:19)
[2016-10-31] MEDS ORDERED: POTASSIUM CHLORIDE (SR) 10 MEQ TAB PO ONE (16:00)
--- NOTE | 2016-10-31 16:05 | CONS ---
Date/Time of Note Date/Time of Note DATE: 10/31/16 TIME: 16:04 Consult Date/Type/Reason Admit Date/Time Oct 24, 2016 at 12:07 Initial Consult Date 10/26/16 Type of Consultation: pulmonary Ordering Provider: JENY MORA MD Subjective Remains comfortable. Objective Vital Signs Date Time Temp Pulse Resp B/P Pulse Ox O2 Delivery O2 Flow Rate FiO2 10/31/16 15:40 98.6 71 18 139/85 95 10/31/16 14:19 2.0 10/31/16 14:19 Nasal Cannula 10/30/16 19:55 21 Intake and Output 10/30/16 10/30/16 10/31/16 15:00 23:00 07:00 Intake Total 700 ml 240 ml Balance 700 ml 240 ml Exam GENERAL: Morbidly obese gentleman comfortable at rest VITAL SIGNS: per chart NECK: Supple. No JVD or lymphadenopathy. CARDIAC EXAM: S1, S2. No added sounds or murmurs. CHEST: clear bilaterally, No added sounds, rales or wheezes ABDOMEN: Soft, nontender. No guarding or rebound. EXTREMITIES: No cyanosis, clubbing or edema. NEUROLOGIC: Generalized weakness. No focal deficits. Results/Medications Result Diagram: 10/31/16 0710/31/16 07 Results 24 hrs Laboratory Tests Test 10/30/16 17:02 10/30/16 20:56 10/31/16 01:51 10/31/16 07:05 Bedside Glucose 275 H 236 H 249 H White Blood Count 4.4 L Red Blood Count 3.31 L Hemoglobin 8.8 L Hematocrit 30.1 L Mean Corpuscular Volume 90.9 Mean Corpuscular Hemoglobin 26.6 L Mean Corpuscular Hemoglobin Concent 29.2 L Red Cell Distribution Width 19.1 H Platelet Count 95 L Mean Platelet Volume 11.6 H Neutrophils % 58.7 Lymphocytes % 19.0 Monocytes % 10.7 Eosinophils % 10.4 H Basophils % 0.7 Nucleated Red Blood Cells % 0.0 Neutrophils # 2.6 Lymphocytes # 0.8 Monocytes # 0.5 Eosinophils # 0.5 Basophils # 0.0 Nucleated Red Blood Cells # 0.0 Sodium Level 142 Potassium Level 3.8 Chloride Level 104 Carbon Dioxide Level 29 Anion Gap 13 Blood Urea Nitrogen 36 H Creatinine 1.96 H Glucose Level 175 Calcium Level 8.6 Magnesium Level 2.1 Test 10/31/16 07:53 10/31/16 11:51 Bedside Glucose 160 233 H Medications Current Medications Lactulose (Enulose) 20 gm QHS PO Last administered on 10/30/16 20:57; Admin Dose 20 GM; Start 10/24/16 at 21:00 Nifedipine (Procardia Xl) 30 mg DAILY PO Last administered on 10/31/16 08:42; Admin Dose 30 MG; Start 10/25/16 at 09:00 Atorvastatin Calcium (Lipitor) 10 mg DAILY@21 PO Last administered on 20:57; Admin Dose 10 MG; Start 10/24/16 at 21:00 Ondansetron HCl (Zofran Inj) 4 mg Q6H PRN IV NAUSEA AND/OR VOMITING; Start at 16:00 Acetaminophen (Tylenol Tab) 650 mg Q6H PRN PO PAIN LEVEL 1-3 OR FEVER Last administered on 10/30/16 11:38; Admin Dose 650 MG; Start 10/24/16 at 16:00 Docusate Sodium (Colace) 100 mg Q12H PRN PO CONSTIPATION; Start 10/24/16 at 16: 00 Diagnostic Test (Pha) (Accu-Chek) 1 ea 02 XX Last administered on 10/31/16 01: 57; Admin Dose 1 EA; Start 10/25/16 at 02:00 Miscellaneous Information 1 ea NOTE XX ; Start 10/24/16 at 21:30 Glucose (Glutose) 15 gm Q15M PRN PO DECREASED GLUCOSE; Start 10/24/16 at 21:30 Glucose (Glutose) 22.5 gm Q15M PRN PO DECREASED GLUCOSE; Start 10/24/16 at 21: 30 Dextrose (D50w Syringe) 25 ml Q15M PRN IV DECREASED GLUCOSE; Start 10/24/16 at 21:30 Dextrose (D50w Syringe) 50 ml Q15M PRN IV DECREASED GLUCOSE; Start 10/24/16 at 21:30 Glucagon (Glucagen) 1 mg Q15M PRN IM DECREASED GLUCOSE; Start 10/24/16 at 21:30 Glucose (Glutose) 15 gm Q15M PRN BUCCAL DECREASED GLUCOSE; Start 10/24/16 at 21 :30 Heparin Sodium (Porcine) (Heparin (5000 Units/0.5 ml)) 5,000 unit BID SC Last administered on 10/31/16 08:43; Admin Dose 5,000 UNIT; Start 10/25/16 at 09:00 Rifaximin (Xifaxan) 550 mg BID PO Last administered on 10/31/16 08:41; Admin Dose 550 MG; Start 10/25/16 at 21:00 Sucralfate (Carafate) 1 gm 0630,1130,1630,21 PO Last administered on 10/31/16 11:56; Admin Dose 1 GM; Start 10/29/16 at 16:30 Dicyclomine HCl (Bentyl) 10 mg TID PRN PO ABD PAIN Last administered on 18:45; Admin Dose 10 MG; Start 10/29/16 at 17:00 Pantoprazole (Protonix Tab) 40 mg DAILY@06 PO Last administered on 10/31/16 05 :55; Admin Dose 40 MG; Start 10/30/16 at 06:00 Morphine Sulfate (morphine) 4 mg Q4H PRN IV pain; Start 10/29/16 at 21:30 Meloxicam (Mobic) 15 mg DAILY PO Last administered on 10/31/16 08:42; Admin Dose 15 MG; Start 10/31/16 at 09:00 Insulin Glargine (Lantus) 30 unit DAILY@20 SC ; Start 10/31/16 at 20:00 Assessment/Plan Chief Complaint/Hosp Course Assessment 1. Significant anemia, discussed with gastroenterology, no procedures at present would continue with iron replacement history of hepatitis C status post treatment continues with rifaximin 2. Likely obstructive sleep apnea 3. Probable underlying chronic obstructive pulmonary disease with mild hypoxemia 4. Renal insufficiency 5. Morbid obesity Recommendations 1. No need for supplemental oxygen at home based on arterial blood gas 2. Pulmonary function testing shows significant restrictive airways disease with significant reversibility to bronchodilators, severely decreased DLCO would be consistent with interstitial edema however this was not seen on lower lung ramos and CT abdomen and pelvis. I will order CT chest noncontrast to evaluate entire lung parenchyma although clinically not consistent with interstitial fibrosis 3. GI recommendations 4. Renal recommendations 5. Outpatient sleep study Disposition dc ok with me. Problems: GUERITA RESENDIZ MD, [facility] Oct 31, 2016 16:04
--- NOTE | 2016-10-31 16:11 | CONS ---
Date/Time of Note Date/Time of Note DATE: 10/31/16 TIME: 16:10 Assessment/Plan Assessment/Plan Additional Assessment/Plan IMPRESSION: 1. Hepatitis C secondary to a blood transfusion, successfully treated with Harvoni. Patient has cirrhotic liver 1. Diabetes mellitus type 2. 2. Hypertension. 3. Overweight. 4. Shortness of breath, with lethargy. Rule out sleep apnea. Also cannot rule out hepatopulmonary syndrome 5. Anemia, iron deficiency ferritin is only 25 6. Mild elevation of ammonia 56 upper limit at this facility is 30 7. Epigastric and left upper quadrant pain mostly of muscular origin. 8. Pulmonary hypertension, portal hypertension Plan Continue PPI and Carafate NSAID to control his pain. Weight loss. Case discussed with Dr. Mora, family regarding cardiology clearance for possible bariatric surgery in the future Continue Mobic since it is improved the pain. Monitor kidney function test Consultation Date/Type/Reason Admit Date/Time Oct 24, 2016 at 12:07 Initial Consult Date 10/25/16 Type of Consultation: pulmonary Referring Provider: JENY MORA MD 24 HR Interval Summary Free Text/Dictation Abdominal pain has reduced Constitutional: improved Exam/Review of Systems Vital Signs Vitals Vital Signs Date Time Temp Pulse Resp B/P Pulse Ox O2 Delivery O2 Flow Rate FiO2 10/31/16 15:40 98.6 71 18 139/85 95 10/31/16 14:19 2.0 10/31/16 14:19 Nasal Cannula 10/30/16 19:55 21 Intake and Output 10/30/16 10/30/16 10/31/16 15:00 23:00 07:00 Intake Total 700 ml 240 ml Balance 700 ml 240 ml Exam Constitutional: alert, oriented, well developed Psych: nl mood/affect, no complaints Head: atraumatic, normocephalic Eyes: EOMI, PERRL, nl conjunctiva, nl lids, nl sclera ENMT: nl external ears & nose, nl lips & teeth, nl nasal mucosa & septum Neck: non-tender, supple Respiratory: clear to auscultation, normal air movement Cardiovascular: nl pulses, regular rate and rhythm Gastrointestinal: nl liver, spleen, non-tender, soft Musculoskeletal: nl extremities to inspection, nl gait and stance Extremities: normal pulses 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: 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 intact, nl mental status, nl speech, nl strength Skin: nl turgor, No rash or lesions Lymph: nl lymph nodes Results Result Diagram: 10/31/1670410/31/16 07 Results 24 hrs Laboratory Tests Test 10/30/16 17:02 10/30/16 20:56 10/31/16 01:51 10/31/16 07:05 Bedside Glucose 275 H 236 H 249 H White Blood Count 4.4 L Red Blood Count 3.31 L Hemoglobin 8.8 L Hematocrit 30.1 L Mean Corpuscular Volume 90.9 Mean Corpuscular Hemoglobin 26.6 L Mean Corpuscular Hemoglobin Concent 29.2 L Red Cell Distribution Width 19.1 H Platelet Count 95 L Mean Platelet Volume 11.6 H Neutrophils % 58.7 Lymphocytes % 19.0 Monocytes % 10.7 Eosinophils % 10.4 H Basophils % 0.7 Nucleated Red Blood Cells % 0.0 Neutrophils # 2.6 Lymphocytes # 0.8 Monocytes # 0.5 Eosinophils # 0.5 Basophils # 0.0 Nucleated Red Blood Cells # 0.0 Sodium Level 142 Potassium Level 3.8 Chloride Level 104 Carbon Dioxide Level 29 Anion Gap 13 Blood Urea Nitrogen 36 H Creatinine 1.96 H Glucose Level 175 Calcium Level 8.6 Magnesium Level 2.1 Test 10/31/16 07:53 10/31/16 11:51 Bedside Glucose 160 233 H Medications Medications Current Medications Lactulose (Enulose) 20 gm QHS PO Last administered on 10/30/16 20:57; Admin Dose 20 GM; Start 10/24/16 at 21:00 Nifedipine (Procardia Xl) 30 mg DAILY PO Last administered on 10/31/16 08:42; Admin Dose 30 MG; Start 10/25/16 at 09:00 Atorvastatin Calcium (Lipitor) 10 mg DAILY@21 PO Last administered on 20:57; Admin Dose 10 MG; Start 10/24/16 at 21:00 Ondansetron HCl (Zofran Inj) 4 mg Q6H PRN IV NAUSEA AND/OR VOMITING; Start at 16:00 Acetaminophen (Tylenol Tab) 650 mg Q6H PRN PO PAIN LEVEL 1-3 OR FEVER Last administered on 10/30/16 11:38; Admin Dose 650 MG; Start 10/24/16 at 16:00 Docusate Sodium (Colace) 100 mg Q12H PRN PO CONSTIPATION; Start 10/24/16 at 16: 00 Diagnostic Test (Pha) (Accu-Chek) 1 ea 02 XX Last administered on 10/31/16 01: 57; Admin Dose 1 EA; Start 10/25/16 at 02:00 Miscellaneous Information 1 ea NOTE XX ; Start 10/24/16 at 21:30 Glucose (Glutose) 15 gm Q15M PRN PO DECREASED GLUCOSE; Start 10/24/16 at 21:30 Glucose (Glutose) 22.5 gm Q15M PRN PO DECREASED GLUCOSE; Start 10/24/16 at 21: 30 Dextrose (D50w Syringe) 25 ml Q15M PRN IV DECREASED GLUCOSE; Start 10/24/16 at 21:30 Dextrose (D50w Syringe) 50 ml Q15M PRN IV DECREASED GLUCOSE; Start 10/24/16 at 21:30 Glucagon (Glucagen) 1 mg Q15M PRN IM DECREASED GLUCOSE; Start 10/24/16 at 21:30 Glucose (Glutose) 15 gm Q15M PRN BUCCAL DECREASED GLUCOSE; Start 10/24/16 at 21 :30 Heparin Sodium (Porcine) (Heparin (5000 Units/0.5 ml)) 5,000 unit BID SC Last administered on 10/31/16 08:43; Admin Dose 5,000 UNIT; Start 10/25/16 at 09:00 Rifaximin (Xifaxan) 550 mg BID PO Last administered on 10/31/16 08:41; Admin Dose 550 MG; Start 10/25/16 at 21:00 Sucralfate (Carafate) 1 gm 0630,1130,1630,21 PO Last administered on 10/31/16 11:56; Admin Dose 1 GM; Start 10/29/16 at 16:30 Dicyclomine HCl (Bentyl) 10 mg TID PRN PO ABD PAIN Last administered on 18:45; Admin Dose 10 MG; Start 10/29/16 at 17:00 Pantoprazole (Protonix Tab) 40 mg DAILY@06 PO Last administered on 10/31/16 05 :55; Admin Dose 40 MG; Start 10/30/16 at 06:00 Morphine Sulfate (morphine) 4 mg Q4H PRN IV pain; Start 4/19/17 at 21:30 Meloxicam (Mobic) 15 mg DAILY PO Last administered on 10/31/16t 08:42; Admin Dose 15 MG; Start 10/31/16 at 09:00 Insulin Glargine (Lantus) 30 unit DAILY@20 SC ; Start 10/31/16 at 20:00 STUART STANLEY MD Oct 31, 2016 16:11
--- NOTE | 2016-10-31 16:30 | PN ---
DATE: SUBJECTIVE: The patient continues to have left-sided chest pain with mild shortness of breath. No nausea, vomiting. No radiation, nonpleuritic. PHYSICAL EXAMINATION: GENERAL: The patient is in no acute distress. VITAL SIGNS: Temperature 98.2, blood pressure 157/74, pulse oximetry 97% on 2 liters. HEENT: Head normocephalic. Mild pallor without cyanosis. LUNGS: Clinically clear. HEART: S1, S2 with no definite gallops. ABDOMEN: Obese, mild left upper quadrant tenderness without rebound. EXTREMITIES: Trace edema. Homans negative. IMAGING: CT scan of the chest shows bronchial wall thickening, no significant primary interstitial lung process or fibrosis. A 2.5 cm nodule in the left upper lobe, likely secondary to prior granulo matous disease. Nodular liver with evidence of portal hypertension with mild ascites. Enlargement of the main pulmonary artery with pulmonary arterial hypertension. LABORATORY DATA: WBC count 4.4, hematocrit 30.1, platelet count 95,000. Potassium 3.8, glucose 160 , 233 today. IMPRESSION: 1. Pain in the left upper quadrant, likely musculoskeletal. 2. Anemia secondary to pancytopenia with a component of iron deficiency anemia. No evidence of gas trointestinal bleed. 3. Severe obstructive sleep apnea. 4. Bradycardia with Mobitz type II heart block, resolved after stopping carvedilol. 5. Diabetes mellitus type 2, not adequately controlled. 6. Chronic kidney disease. PLAN: We will increase the Lantus dose. Discontinue telemetry, transfer to medical floor. Increa se ambulation. We will eventually get a consultation from bariatric standpoint. We will discuss wi Dr. Lucas and Dr. Barrios regarding appropriate workup, including workup for underlying strauss ry artery disease prior to consideration of any bariatric surgery. Dictated By: JENY MORA MD SR/NTS Conf#: [id number] DID#: [id number]
[2016-10-31] MEDS ORDERED: INSULIN ASPART [NOVOLOG] 3 ML PEN SC ONE (19:30)
[2016-10-31] MEDS: LACTULOSE 30ML CUP PO SCH (21:14)
[2016-10-31] MEDS: ATORVASTATIN 10 MG TAB PO SCH (21:14)
[2016-10-31] MEDS: INSULIN GLARGINE [LANtus] 3 ML PEN SC SCH (22:39)
[2016-11-01] MEDS: ACCU-CHEK XX SCH ×2 (02:00→02:08)
[2016-11-01] MEDS: ALBUTEROL/IPRATROPIUM (NEB) 3 ML AMP HHN SCH ×4 (02:51→19:51)
[2016-11-01] MEDS: FUROSEMIDE 40 MG INJ IV SCH ×2 (06:04→18:02)
[2016-11-01] MEDS: PANTOPRAZOLE (EC) 40 MG TAB PO SCH (06:04)
[2016-11-01] MEDS: SUCRALFATE 1 GM TAB PO SCH ×4 (06:04→20:38)
[2016-11-01 06:27] LABS: ADD SCAN DIFF NO
[2016-11-01 06:33] LABS: ABNORMAL IP MESSAGE 1; BASOPHILS % 0.6 % (0.0-2.0); EOSINOPHILS # 0.3 10^3/ul (0.0-0.5); EOSINOPHILS % 9.1 % (0.0-7.0); HEMOGLOBIN 8.7 g/dl (14.0-18.0); LYMPHOCYTES # 0.8 10^3/ul (0.8-2.9); LYMPHOCYTES % 22.3 % (15.0-51.0); MEAN CORPUSCULAR HEMOGLOBIN 27.2 pg (29.0-33.0); MEAN CORPUSCULAR VOLUME 90.6 fl (82.0-101.0); MEAN PLATELET VOLUME 11.9 fl (7.4-10.4); MONOCYTE # 0.4 10^3/ul (0.3-0.9); MONOCYTES % 10.7 % (0.0-11.0); NEUTROPHIL # 2.1 10^3/ul (1.6-7.5); PLATELET COUNT 91 10^3/UL (140-415); RED CELL DISTRIBUTION WIDTH 18.6 % (11.5-14.5); WHITE BLOOD COUNT 3.6 10^3/ul (4.8-10.8)
[2016-11-01 06:56] LABS: CALCIUM 8.3 mg/dl (8.4-10.2); CREATININE 1.96 mg/dl (0.61-1.24)
[2016-11-01] MEDS: INSULIN ASPART [NOVOLOG] 3 ML PEN SC SCH ×4 (09:21→20:36)
[2016-11-01] MEDS: MELOXICAM 15 MG TAB PO SCH (09:40)
[2016-11-01] MEDS: RIFAXIMIN 550 MG TAB PO SCH ×2 (09:40→20:38)
[2016-11-01 09:42] VITALS: BP 160/85; PULSE 77
[2016-11-01] MEDS: NIFEdipine (XL) 30 MG TAB PO SCH (09:42)
[2016-11-01] MEDS: HEPARIN 5,000 UNIT/0.5 ML VIAL SC SCH ×2 (09:49→20:36)
--- NOTE | 2016-11-01 10:57 | CONS ---
Date/Time of Note Date/Time of Note DATE: 11/01/16 TIME: 10:53 Assessment/Plan Assessment/Plan Chief Complaint/Hosp Course IMPRESSION: 1. Hepatitis C secondary to a blood transfusion, successfully treated with Harvoni. Patient has cirrhotic liver 1. Diabetes mellitus type 2. 2. Hypertension. 3. Overweight. 4. Shortness of breath, with lethargy. Rule out sleep apnea. Also cannot rule out hepatopulmonary syndrome 5. Anemia, iron deficiency ferritin is only 25 6. Mild elevation of ammonia 56 upper limit at this facility is 30 7. Epigastric and left upper quadrant pain mostly of muscular origin. 8. Pulmonary hypertension, portal hypertension Plan Continue PPI and Carafate NSAID to control his pain. Weight loss. IV iron to replete his iron deficiency anemia Problems: Consultation Date/Type/Reason Admit Date/Time Oct 24, 2016 at 12:07 Initial Consult Date 10/26/16 Type of Consultation: GI Referring Provider: JENY MORA MD 24 HR Interval Summary Free Text/Dictation No abdominal pain, no n/v Exam/Review of Systems Vital Signs Vitals Vital Signs Date Time Temp Pulse Resp B/P Pulse Ox O2 Delivery O2 Flow Rate FiO2 11/01/16 09:42 77 160/85 11/01/16 09:28 20 95 21 11/01/16 02:58 2.0 10/31/16 20:50 98.8 10/31/16 20:00 Nasal Cannula Intake and Output 10/31/16 10/31/16 11/01/16 15:00 23:00 07:00 Intake Total 1100 ml 500 ml Balance 1100 ml 500 ml Exam Constitutional: alert, frail Psych: nl mood/affect, no complaints Head: atraumatic, normocephalic Eyes: EOMI, nl conjunctiva, nl lids ENMT: nl external ears & nose, nl lips & teeth, nl nasal mucosa & septum Neck: non-tender, supple Respiratory: clear to auscultation, normal air movement Cardiovascular: regular rate and rhythm Gastrointestinal: bowel sounds, non-tender, soft Results Result Diagram: 11/01/16 0558 11/01/16 0558 Results 24 hrs Laboratory Tests Test 10/31/16 11:51 10/31/16 18:41 10/31/16 21:38 10/31/16 22:20 Bedside Glucose 233 H 335 H 316 H 303 H Test 11/01/16 02:04 11/01/16 05:58 11/01/16 08:02 Bedside Glucose 238 H 195 White Blood Count 3.6 L Red Blood Count 3.20 L Hemoglobin 8.7 L Hematocrit 29.0 L Mean Corpuscular Volume 90.6 Mean Corpuscular Hemoglobin 27.2 L Mean Corpuscular Hemoglobin Concent 30.0 L Red Cell Distribution Width 18.6 H Platelet Count 91 L Mean Platelet Volume 11.9 H Neutrophils % 57.0 Lymphocytes % 22.3 Monocytes % 10.7 Eosinophils % 9.1 H Basophils % 0.6 Nucleated Red Blood Cells % 0.0 Neutrophils # 2.1 Lymphocytes # 0.8 Monocytes # 0.4 Eosinophils # 0.3 Basophils # 0.0 Nucleated Red Blood Cells # 0.0 Sodium Level 137 Potassium Level 4.0 Chloride Level 105 Carbon Dioxide Level 29 Anion Gap 7 L Blood Urea Nitrogen 36 H Creatinine 1.96 H Glucose Level 235 H Calcium Level 8.3 L Medications Medications Current Medications Lactulose (Enulose) 20 gm QHS PO Last administered on 10/31/16 21:14; Admin Dose 20 GM; Start 10/24/16 at 21:00 Nifedipine (Procardia Xl) 30 mg DAILY PO Last administered on 11/01/16 09:42; Admin Dose 30 MG; Start 10/25/16 at 09:00 Atorvastatin Calcium (Lipitor) 10 mg DAILY@21 PO Last administered on 21:14; Admin Dose 10 MG; Start 10/24/16 at 21:00 Ondansetron HCl (Zofran Inj) 4 mg Q6H PRN IV NAUSEA AND/OR VOMITING; Start at 16:00 Acetaminophen (Tylenol Tab) 650 mg Q6H PRN PO PAIN LEVEL 1-3 OR FEVER Last administered on 10/30/16 11:38; Admin Dose 650 MG; Start 10/24/16 at 16:00 Docusate Sodium (Colace) 100 mg Q12H PRN PO CONSTIPATION; Start 10/24/16 at 16: 00 Diagnostic Test (Pha) (Accu-Chek) 1 ea 02 XX Last administered on 11/01/16 02: 08; Admin Dose 1 EA; Start 10/25/16 at 02:00 Miscellaneous Information 1 ea NOTE XX ; Start 10/24/16 at 21:30 Glucose (Glutose) 15 gm Q15M PRN PO DECREASED GLUCOSE; Start 10/24/16 at 21:30 Glucose (Glutose) 22.5 gm Q15M PRN PO DECREASED GLUCOSE; Start 10/24/16 at 21: 30 Dextrose (D50w Syringe) 25 ml Q15M PRN IV DECREASED GLUCOSE; Start 10/24/16 at 21:30 Dextrose (D50w Syringe) 50 ml Q15M PRN IV DECREASED GLUCOSE; Start 10/24/16 at 21:30 Glucagon (Glucagen) 1 mg Q15M PRN IM DECREASED GLUCOSE; Start 10/24/16 at 21:30 Glucose (Glutose) 15 gm Q15M PRN BUCCAL DECREASED GLUCOSE; Start 10/24/16 at 21 :30 Heparin Sodium (Porcine) (Heparin (5000 Units/0.5 ml)) 5,000 unit BID SC Last administered on 11/01/16 09:49; Admin Dose 5,000 UNIT; Start 10/25/16 at 09:00 Rifaximin (Xifaxan) 550 mg BID PO Last administered on 11/01/16 09:40; Admin Dose 550 MG; Start 10/25/16 at 21:00 Sucralfate (Carafate) 1 gm 0630,1130,1630,21 PO Last administered on 11/01/16 06:04; Admin Dose 1 GM; Start 10/29/16 at 16:30 Dicyclomine HCl (Bentyl) 10 mg TID PRN PO ABD PAIN Last administered on 18:45; Admin Dose 10 MG; Start 10/29/16 at 17:00 Pantoprazole (Protonix Tab) 40 mg DAILY@06 PO Last administered on 11/01/16 06 :04; Admin Dose 40 MG; Start 10/30/16 at 06:00 Morphine Sulfate (morphine) 4 mg Q4H PRN IV pain Last administered on 06:29; Admin Dose 4 MG; Start 10/29/16 at 21:30 Meloxicam (Mobic) 15 mg DAILY PO Last administered on 11/01/16 09:40; Admin Dose 15 MG; Start 10/31/16 at 09:00 Insulin Glargine (Lantus) 30 unit DAILY@20 SC Last administered on 10/31/16t 22 :39; Admin Dose 30 UNIT; Start 10/31/16 at 20:00 Diagnostic Test (Pha) (Accu-Chek) 1 XX ; Start 11/01/16 at 02:00 TRENA FUNK MD Nov 01, 2016 10:57
--- NOTE | 2016-11-01 11:46 | PN ---
DATE: 10/31/2016 SUBJECTIVE: The patient continues to have left upper quadrant pain, needed to be given 1 dose of mo rphine sulfate with improvement. PHYSICAL EXAMINATION: GENERAL: The patient is awake, alert, no complaints of shortness of breath. VITAL SIGNS: Blood pressure 160/85, O2 saturation is 95% on room air. HEENT: Head normocephalic. Moderate pallor without cyanosis. LUNGS: Clinically clear. HEART: S1, S2 heard with no definite gallops. ABDOMEN: Obese, mild tenderness in the left upper quadrant. EXTREMITIES: Trace edema. I's and O's: Intake 1600, output not noted. LABORATORY DATA: WBC count 3.6, hematocrit 29.0, platelet count 91,000. Potassium 4, BUN 36, creat inine 1.96, glucose 235. IMPRESSION: 1. Persistent pain left upper quadrant, likely musculoskeletal, not improved. 2. Anemia secondary to pancytopenia. No evidence of GI bleed. 3. Severe obstructive sleep apnea. 4. Status post bradycardia with Mobitz type II, resolved. 5. Diabetes mellitus type 2, not adequately controlled. 6. Chronic kidney disease. PLAN: We will optimize diabetic control with increasing dose of Lantus and we will request dietary consultation to educate the patient regarding diet. Dictated By: JENY MORA MD, SR/PEG Conf#: [id number] DID#: [id number]
[2016-11-01] MEDS: SOD FERRIC GLUC COMPLX 125 MG in SOD CHLORIDE 0.9% 100 ML IVPB SCH (12:18)
--- NOTE | 2016-11-01 15:24 | CONS ---
Date/Time of Note Date/Time of Note DATE: 11/01/16 TIME: 15:21 Consult Date/Type/Reason Admit Date/Time Oct 24, 2016 at 12:07 Initial Consult Date 10/26/16 Type of Consultation: Pulm/CCM Ordering Provider: JENY MORA MD Subjective No events. CT chest reviewed. Objective Vital Signs Date Time Temp Pulse Resp B/P Pulse Ox O2 Delivery O2 Flow Rate FiO2 11/01/16 09:42 77 160/85 11/01/16 09:28 20 95 21 11/01/16 02:58 2.0 10/31/16 20:50 98.8 10/31/16 20:00 Nasal Cannula Intake and Output 10/31/16 10/31/16 11/01/16 15:00 23:00 07:00 Intake Total 1100 ml 500 ml Balance 1100 ml 500 ml Exam HEENT: Neck supple; no JVD; no LAD CVS: RRR, S1 and S2 CHEST: exp wheezing ABD: Soft, NT, + BS EXT: No c/c/e Results/Medications Result Diagram: 11/01/16 0558 11/01/16 0558 Results 24 hrs Laboratory Tests Test 10/31/16 18:41 10/31/16 21:38 10/31/16 22:20 11/01/16 02:04 Bedside Glucose 335 H 316 H 303 H 238 H Test 11/01/16 05:58 11/01/16 08:02 11/01/16 11:59 White Blood Count 3.6 L Red Blood Count 3.20 L Hemoglobin 8.7 L Hematocrit 29.0 L Mean Corpuscular Volume 90.6 Mean Corpuscular Hemoglobin 27.2 L Mean Corpuscular Hemoglobin Concent 30.0 L Red Cell Distribution Width 18.6 H Platelet Count 91 L Mean Platelet Volume 11.9 H Neutrophils % 57.0 Lymphocytes % 22.3 Monocytes % 10.7 Eosinophils % 9.1 H Basophils % 0.6 Nucleated Red Blood Cells % 0.0 Neutrophils # 2.1 Lymphocytes # 0.8 Monocytes # 0.4 Eosinophils # 0.3 Basophils # 0.0 Nucleated Red Blood Cells # 0.0 Sodium Level 137 Potassium Level 4.0 Chloride Level 105 Carbon Dioxide Level 29 Anion Gap 7 L Blood Urea Nitrogen 36 H Creatinine 1.96 H Glucose Level 235 H Calcium Level 8.3 L Bedside Glucose 195 269 H Medications Current Medications Lactulose (Enulose) 20 gm QHS PO Last administered on 10/31/16 21:14; Admin Dose 20 GM; Start 10/24/16 at 21:00 Nifedipine (Procardia Xl) 30 mg DAILY PO Last administered on 11/01/16 09:42; Admin Dose 30 MG; Start 10/25/16 at 09:00 Atorvastatin Calcium (Lipitor) 10 mg DAILY@21 PO Last administered on 21:14; Admin Dose 10 MG; Start 10/24/16 at 21:00 Ondansetron HCl (Zofran Inj) 4 mg Q6H PRN IV NAUSEA AND/OR VOMITING; Start at 16:00 Acetaminophen (Tylenol Tab) 650 mg Q6H PRN PO PAIN LEVEL 1-3 OR FEVER Last administered on 10/30/16 11:38; Admin Dose 650 MG; Start 10/24/16 at 16:00 Docusate Sodium (Colace) 100 mg Q12H PRN PO CONSTIPATION; Start 10/24/16 at 16: 00 Diagnostic Test (Pha) (Accu-Chek) 1 ea 02 XX Last administered on 11/01/16 02: 08; Admin Dose 1 EA; Start 10/25/16 at 02:00 Miscellaneous Information 1 ea NOTE XX ; Start 10/24/16 at 21:30 Glucose (Glutose) 15 gm Q15M PRN PO DECREASED GLUCOSE; Start 10/24/16 at 21:30 Glucose (Glutose) 22.5 gm Q15M PRN PO DECREASED GLUCOSE; Start 10/24/16 at 21: 30 Dextrose (D50w Syringe) 25 ml Q15M PRN IV DECREASED GLUCOSE; Start 10/24/16 at 21:30 Dextrose (D50w Syringe) 50 ml Q15M PRN IV DECREASED GLUCOSE; Start 10/24/16 at 21:30 Glucagon (Glucagen) 1 mg Q15M PRN IM DECREASED GLUCOSE; Start 10/24/16 at 21:30 Glucose (Glutose) 15 gm Q15M PRN BUCCAL DECREASED GLUCOSE; Start 10/24/16 at 21 :30 Heparin Sodium (Porcine) (Heparin (5000 Units/0.5 ml)) 5,000 unit BID SC Last administered on 11/01/16 09:49; Admin Dose 5,000 UNIT; Start 10/25/16 at 09:00 Rifaximin (Xifaxan) 550 mg BID PO Last administered on 11/01/16 09:40; Admin Dose 550 MG; Start 10/25/16 at 21:00 Sucralfate (Carafate) 1 gm 0630,1130,1630,21 PO Last administered on 11/01/16 12:24; Admin Dose 1 GM; Start 10/29/16 at 16:30 Dicyclomine HCl (Bentyl) 10 mg TID PRN PO ABD PAIN Last administered on 18:45; Admin Dose 10 MG; Start 10/29/16 at 17:00 Pantoprazole (Protonix Tab) 40 mg DAILY@06 PO Last administered on 11/01/16 06 :04; Admin Dose 40 MG; Start 10/30/16 at 06:00 Morphine Sulfate (morphine) 4 mg Q4H PRN IV pain Last administered on 06:29; Admin Dose 4 MG; Start 10/29/16 at 21:30 Meloxicam (Mobic) 15 mg DAILY PO Last administered on 11/01/16 09:40; Admin Dose 15 MG; Start 10/31/16 at 09:00 Insulin Glargine (Lantus) 30 unit DAILY@20 SC Last administered on 10/31/16 22 :39; Admin Dose 30 UNIT; Start 10/31/16 at 20:00 Diagnostic Test (Pha) 1 ea 1 ea 02 XX ; Start 11/01/16 at 02:00 Ferric Sodium Gluconate Complex/ Sodium Chloride (Ferrlecit/NS) 110 ml @ 100 mls/hr Q24H IVPB Last administered on 11/01/16 12:18; Admin Dose 100 MLS/HR; Start 11/01/16 at 13:00; Stop 11/03/16 at 14:05 Assessment/Plan Additional Assessment/Plan IMP: 1. Bronchial wall thickening/Tubular lingular opacity (2.5 cm)/and eosinophilia- -raise concern for ABPA. RECS 1. Obtain total IgE and IgG/IgE for Aspergillus 2. Will obtain TB quant gold and cocci serologies EVER OSHEA MD Nov 01, 2016 15:24
[2016-11-01 20:00] VITALS: BP 158/83; PULSE 85; RESP 18
[2016-11-01] MEDS: INSULIN GLARGINE [LANtus] 3 ML PEN SC SCH (20:35)
[2016-11-01] MEDS: LACTULOSE 30ML CUP PO SCH (20:38)
[2016-11-01] MEDS: ATORVASTATIN 10 MG TAB PO SCH (20:38)
[2016-11-02] MEDS: ALBUTEROL/IPRATROPIUM (NEB) 3 ML AMP HHN SCH ×4 (01:33→22:17)
[2016-11-02] MEDS: ACCU-CHEK XX SCH ×2 (02:00→02:05)
[2016-11-02] MEDS: PANTOPRAZOLE (EC) 40 MG TAB PO SCH (06:11)
[2016-11-02] MEDS: SUCRALFATE 1 GM TAB PO SCH ×4 (06:11→21:05)
[2016-11-02] MEDS: FUROSEMIDE 40 MG INJ IV SCH ×2 (06:12→17:33)
[2016-11-02 06:37] LABS: ABNORMAL IP MESSAGE 1; ADD SCAN DIFF NO; BASOPHILS % 0.6 % (0.0-2.0); EOSINOPHILS # 0.3 10^3/ul (0.0-0.5); EOSINOPHILS % 8.1 % (0.0-7.0); HEMATOCRIT 26.9 % (42.0-52.0); HEMOGLOBIN 7.9 g/dl (14.0-18.0); LYMPHOCYTES # 0.7 10^3/ul (0.8-2.9); LYMPHOCYTES % 20.1 % (15.0-51.0); MEAN CORPUSCULAR HEMOGLOBIN 26.5 pg (29.0-33.0); MEAN CORPUSCULAR HGB CONC 29.4 g/dl (32.0-37.0); MEAN CORPUSCULAR VOLUME 90.3 fl (82.0-101.0); MEAN PLATELET VOLUME 11.2 fl (7.4-10.4); MONOCYTE # 0.4 10^3/ul (0.3-0.9); MONOCYTES % 11.7 % (0.0-11.0); NEUTROPHIL # 2.1 10^3/ul (1.6-7.5); NEUTROPHILS % 59.2 % (39.0-77.0); PLATELET COUNT 89 10^3/UL (140-415); RED BLOOD COUNT 2.98 10^6/ul (4.70-6.10); RED CELL DISTRIBUTION WIDTH 18.4 % (11.5-14.5); WHITE BLOOD COUNT 3.6 10^3/ul (4.8-10.8)
[2016-11-02 06:59] LABS: ALBUMIN 2.7 g/dl (3.3-4.9); ALBUMIN/GLOBULIN RATIO 0.69; BILIRUBIN,INDIRECT 0.1 mg/dl (0-1.1); BILIRUBIN,TOTAL 0.1 mg/dl (0.2-1.3); CALCIUM 8.3 mg/dl (8.4-10.2); CREATININE 1.93 mg/dl (0.61-1.24); POTASSIUM 3.9 mmol/L (3.5-5.1); TOTAL PROTEIN 6.6 g/dl (6.1-8.1)
[2016-11-02 07:37] VITALS: BP 141/73; RESP 18
[2016-11-02] MEDS: INSULIN ASPART [NOVOLOG] 3 ML PEN SC SCH ×4 (08:05→21:03)
[2016-11-02] MEDS: NIFEdipine (XL) 30 MG TAB PO SCH (08:50)
[2016-11-02] MEDS: RIFAXIMIN 550 MG TAB PO SCH ×2 (08:50→20:08)
[2016-11-02] MEDS: MELOXICAM 15 MG TAB PO SCH (08:50)
[2016-11-02] MEDS: HEPARIN 5,000 UNIT/0.5 ML VIAL SC SCH ×2 (08:56→20:17)
--- NOTE | 2016-11-02 09:45 | CONS ---
Date/Time of Note Date/Time of Note DATE: 11/02/16 TIME: 09:42 Assessment/Plan Assessment/Plan Chief Complaint/Hosp Course IMPRESSION: 1. Hepatitis C secondary to a blood transfusion, successfully treated with Harvoni. Patient has cirrhotic liver 1. Diabetes mellitus type 2. 2. Hypertension. 3. Overweight. 4. Shortness of breath, with lethargy. Rule out sleep apnea. Also cannot rule out hepatopulmonary syndrome 5. Anemia, iron deficiency ferritin is only 25 6. Mild elevation of ammonia 56 upper limit at this facility is 30 7. Epigastric and left upper quadrant pain mostly of muscular origin. 8. Pulmonary hypertension, portal hypertension Plan Continue PPI and Carafate for his epigastric pain NSAID to control his pain. Weight loss which will help with his overall health and reduce epigastric pain IV iron to replete his iron deficiency anemia Dr. Arteaga to resume care tomorrow Problems: Consultation Date/Type/Reason Admit Date/Time Oct 24, 2016 at 12:07 Initial Consult Date 10/26/16 Type of Consultation: GI Referring Provider: JENY MORA MD 24 HR Interval Summary Free Text/Dictation complains of epigastric pain, no n/v Exam/Review of Systems Vital Signs Vitals Vital Signs Date Time Temp Pulse Resp B/P Pulse Ox O2 Delivery O2 Flow Rate FiO2 11/02/16 08:25 99 20 96 21 11/02/16 07:37 98.2 141/73 11/02/16 00:19 Nasal Cannula 2.0 Intake and Output 11/01/16 11/01/16 11/02/16 15:00 23:00 07:00 Intake Total 110 ml 2000 ml Balance 110 ml 2000 ml Exam Constitutional: alert, obese, oriented Psych: nl mood/affect, no complaints Head: atraumatic, normocephalic Eyes: EOMI, nl conjunctiva, nl lids, nl sclera ENMT: mucosa pink and moist, nl external ears & nose, nl lips & teeth, nl nasal mucosa & septum Neck: non-tender, supple Respiratory: clear to auscultation, normal air movement Cardiovascular: nl pulses, regular rate and rhythm Gastrointestinal: bowel sounds, soft, tender (epigastric TTP) Results Result Diagram: 11/02/16 0559 11/02/16 0559 Results 24 hrs Laboratory Tests Test 11/01/16 11:59 11/01/16 17:31 11/01/16 20:32 11/02/16 02:01 Bedside Glucose 269 H 208 297 H 333 H Test 11/02/16 05:59 11/02/16 07:59 White Blood Count 3.6 L Red Blood Count 2.98 L Hemoglobin 7.9 L Hematocrit 26.9 L Mean Corpuscular Volume 90.3 Mean Corpuscular Hemoglobin 26.5 L Mean Corpuscular Hemoglobin Concent 29.4 L Red Cell Distribution Width 18.4 H Platelet Count 89 L Mean Platelet Volume 11.2 H Neutrophils % 59.2 Lymphocytes % 20.1 Monocytes % 11.7 H Eosinophils % 8.1 H Basophils % 0.6 Nucleated Red Blood Cells % 0.0 Neutrophils # 2.1 Lymphocytes # 0.7 L Monocytes # 0.4 Eosinophils # 0.3 Basophils # 0.0 Nucleated Red Blood Cells # 0.0 Sodium Level 136 Potassium Level 3.9 Chloride Level 105 Carbon Dioxide Level 28 Anion Gap 7 L Blood Urea Nitrogen 36 H Creatinine 1.93 H Glucose Level 234 H Calcium Level 8.3 L Total Bilirubin 0.1 L Direct Bilirubin 0.00 Indirect Bilirubin 0.1 Aspartate Amino Transf (AST/SGOT) 46 Alanine Aminotransferase (ALT/SGPT) 34 Alkaline Phosphatase 137 H Total Protein 6.6 Albumin 2.7 L Globulin 3.90 H Albumin/Globulin Ratio 0.69 Bedside Glucose 187 Medications Medications Current Medications Lactulose (Enulose) 20 gm QHS PO Last administered on 11/01/16 20:38; Admin Dose 20 GM; Start 10/24/16 at 21:00 Nifedipine (Procardia Xl) 30 mg DAILY PO Last administered on 11/02/16 08:50; Admin Dose 30 MG; Start 10/25/16 at 09:00 Atorvastatin Calcium (Lipitor) 10 mg DAILY@21 PO Last administered on 20:38; Admin Dose 10 MG; Start 10/24/16 at 21:00 Ondansetron HCl (Zofran Inj) 4 mg Q6H PRN IV NAUSEA AND/OR VOMITING; Start at 16:00 Acetaminophen (Tylenol Tab) 650 mg Q6H PRN PO PAIN LEVEL 1-3 OR FEVER Last administered on 10/30/16 11:38; Admin Dose 650 MG; Start 10/24/16 at 16:00 Docusate Sodium (Colace) 100 mg Q12H PRN PO CONSTIPATION; Start 10/24/16 at 16: 00 Diagnostic Test (Pha) (Accu-Chek) 1 ea 02 XX Last administered on 11/02/16 02: 05; Admin Dose 1 EA; Start 10/25/16 at 02:00 Miscellaneous Information 1 ea NOTE XX ; Start 10/24/16 at 21:30 Glucose (Glutose) 15 gm Q15M PRN PO DECREASED GLUCOSE; Start 10/24/16 at 21:30 Glucose (Glutose) 22.5 gm Q15M PRN PO DECREASED GLUCOSE; Start 10/24/16 at 21: 30 Dextrose (D50w Syringe) 25 ml Q15M PRN IV DECREASED GLUCOSE; Start 10/24/16 at 21:30 Dextrose (D50w Syringe) 50 ml Q15M PRN IV DECREASED GLUCOSE; Start 10/24/16 at 21:30 Glucagon (Glucagen) 1 mg Q15M PRN IM DECREASED GLUCOSE; Start 10/24/16 at 21:30 Glucose (Glutose) 15 gm Q15M PRN BUCCAL DECREASED GLUCOSE; Start 10/24/16 at 21 :30 Heparin Sodium (Porcine) (Heparin (5000 Units/0.5 ml)) 5,000 unit BID SC Last administered on 11/02/16 08:56; Admin Dose 5,000 UNIT; Start 10/25/16 at 09:00 Rifaximin (Xifaxan) 550 mg BID PO Last administered on 11/02/16 08:50; Admin Dose 550 MG; Start 10/25/16 at 21:00 Sucralfate (Carafate) 1 gm 0630,1130,1630,21 PO Last administered on 11/02/16 06:11; Admin Dose 1 GM; Start 10/29/16 at 16:30 Dicyclomine HCl (Bentyl) 10 mg TID PRN PO ABD PAIN Last administered on 18:45; Admin Dose 10 MG; Start 10/29/16 at 17:00 Pantoprazole (Protonix Tab) 40 mg DAILY@06 PO Last administered on 11/02/16 06 :11; Admin Dose 40 MG; Start 10/30/16 at 06:00 Morphine Sulfate (morphine) 4 mg Q4H PRN IV pain Last administered on 06:29; Admin Dose 4 MG; Start 10/29/16 at 21:30 Meloxicam (Mobic) 15 mg DAILY PO Last administered on 11/02/16 08:50; Admin Dose 15 MG; Start 10/31/16 at 09:00 Insulin Glargine (Lantus) 30 unit DAILY@20 SC Last administered on 11/01/16 20 :35; Admin Dose 30 UNIT; Start 10/31/16 at 20:00 Diagnostic Test (Pha) 1 ea 1 ea 02 XX ; Start 11/01/16 at 02:00 Ferric Sodium Gluconate Complex/ Sodium Chloride (Ferrlecit/NS) 110 ml @ 100 mls/hr Q24H IVPB Last administered on 11/01/16 12:18; Admin Dose 100 MLS/HR; Start 11/01/16 at 13:00; Stop 11/03/16 at 14:05 TRENA FUNK MD Nov 02, 2016 09:44
[2016-11-02] MEDS: SOD FERRIC GLUC COMPLX 125 MG in SOD CHLORIDE 0.9% 100 ML IVPB SCH (12:05)
[2016-11-02] MEDS: AZITHROMYCIN 250 MG TAB PO SCH (14:21)
--- NOTE | 2016-11-02 16:16 | CONS ---
Date/Time of Note Date/Time of Note DATE: 11/02/16 TIME: 16:15 Consult Date/Type/Reason Admit Date/Time Oct 24, 2016 at 12:07 Initial Consult Date 10/26/16 Type of Consultation: Pulm Ordering Provider: JENY MORA MD Subjective No SOB Objective Vital Signs Date Time Temp Pulse Resp B/P Pulse Ox O2 Delivery O2 Flow Rate FiO2 11/02/16 14:01 83 20 93 21 11/02/16 07:37 98.2 141/73 11/02/16 00:19 Nasal Cannula 2.0 Intake and Output 11/01/16 11/01/16 11/02/16 15:00 23:00 07:00 Intake Total 110 ml 2000 ml Balance 110 ml 2000 ml Exam HEENT: Neck supple; no JVD; no LAD CVS: RRR, S1 and S2 CHEST: exp wheezing ABD: Soft, NT, + BS EXT: No c/c/e Results/Medications Result Diagram: 11/02/16 0559 11/02/16 0559 Results 24 hrs Laboratory Tests Test 11/01/16 17:31 11/01/16 20:32 11/02/16 02:01 11/02/16 05:59 Bedside Glucose 208 297 H 333 H White Blood Count 3.6 L Red Blood Count 2.98 L Hemoglobin 7.9 L Hematocrit 26.9 L Mean Corpuscular Volume 90.3 Mean Corpuscular Hemoglobin 26.5 L Mean Corpuscular Hemoglobin Concent 29.4 L Red Cell Distribution Width 18.4 H Platelet Count 89 L Mean Platelet Volume 11.2 H Neutrophils % 59.2 Lymphocytes % 20.1 Monocytes % 11.7 H Eosinophils % 8.1 H Basophils % 0.6 Nucleated Red Blood Cells % 0.0 Neutrophils # 2.1 Lymphocytes # 0.7 L Monocytes # 0.4 Eosinophils # 0.3 Basophils # 0.0 Nucleated Red Blood Cells # 0.0 Sodium Level 136 Potassium Level 3.9 Chloride Level 105 Carbon Dioxide Level 28 Anion Gap 7 L Blood Urea Nitrogen 36 H Creatinine 1.93 H Glucose Level 234 H Calcium Level 8.3 L Total Bilirubin 0.1 L Direct Bilirubin 0.00 Indirect Bilirubin 0.1 Aspartate Amino Transf (AST/SGOT) 46 Alanine Aminotransferase (ALT/SGPT) 34 Alkaline Phosphatase 137 H Total Protein 6.6 Albumin 2.7 L Globulin 3.90 H Albumin/Globulin Ratio 0.69 Test 11/02/16 07:59 11/02/16 12:03 Bedside Glucose 187 248 H Medications Current Medications Lactulose (Enulose) 20 gm QHS PO Last administered on 11/01/16 20:38; Admin Dose 20 GM; Start 10/24/16 at 21:00 Nifedipine (Procardia Xl) 30 mg DAILY PO Last administered on 11/02/16 08:50; Admin Dose 30 MG; Start 10/25/16 at 09:00 Atorvastatin Calcium (Lipitor) 10 mg DAILY@21 PO Last administered on 20:38; Admin Dose 10 MG; Start 10/24/16 at 21:00 Ondansetron HCl (Zofran Inj) 4 mg Q6H PRN IV NAUSEA AND/OR VOMITING; Start at 16:00 Acetaminophen (Tylenol Tab) 650 mg Q6H PRN PO PAIN LEVEL 1-3 OR FEVER Last administered on 10/30/16 11:38; Admin Dose 650 MG; Start 10/24/16 at 16:00 Docusate Sodium (Colace) 100 mg Q12H PRN PO CONSTIPATION; Start 10/24/16 at 16: 00 Diagnostic Test (Pha) (Accu-Chek) 1 ea 02 XX Last administered on 11/02/16 02: 05; Admin Dose 1 EA; Start 10/25/16 at 02:00 Miscellaneous Information 1 ea NOTE XX ; Start 10/24/16 at 21:30 Glucose (Glutose) 15 gm Q15M PRN PO DECREASED GLUCOSE; Start 10/24/16 at 21:30 Glucose (Glutose) 22.5 gm Q15M PRN PO DECREASED GLUCOSE; Start 10/24/16 at 21: 30 Dextrose (D50w Syringe) 25 ml Q15M PRN IV DECREASED GLUCOSE; Start 10/24/16 at 21:30 Dextrose (D50w Syringe) 50 ml Q15M PRN IV DECREASED GLUCOSE; Start 10/24/16 at 21:30 Glucagon (Glucagen) 1 mg Q15M PRN IM DECREASED GLUCOSE; Start 10/24/16 at 21:30 Glucose (Glutose) 15 gm Q15M PRN BUCCAL DECREASED GLUCOSE; Start 10/24/16 at 21 :30 Heparin Sodium (Porcine) (Heparin (5000 Units/0.5 ml)) 5,000 unit BID SC Last administered on 11/02/16 08:56; Admin Dose 5,000 UNIT; Start 10/25/16 at 09:00 Rifaximin (Xifaxan) 550 mg BID PO Last administered on 11/02/16 08:50; Admin Dose 550 MG; Start 10/25/16 at 21:00 Sucralfate (Carafate) 1 gm 0630,1130,1630,21 PO Last administered on 11/02/16 11:38; Admin Dose 1 GM; Start 10/29/16 at 16:30 Dicyclomine HCl (Bentyl) 10 mg TID PRN PO ABD PAIN Last administered on 18:45; Admin Dose 10 MG; Start 10/29/16 at 17:00 Pantoprazole (Protonix Tab) 40 mg DAILY@06 PO Last administered on 11/02/16 06 :11; Admin Dose 40 MG; Start 10/30/16 at 06:00 Morphine Sulfate (morphine) 4 mg Q4H PRN IV pain Last administered on 06:29; Admin Dose 4 MG; Start 10/29/16 at 21:30 Meloxicam (Mobic) 15 mg DAILY PO Last administered on 11/02/16 08:50; Admin Dose 15 MG; Start 10/31/16 at 09:00 Insulin Glargine (Lantus) 30 unit DAILY@20 SC Last administered on 11/01/16 20 :35; Admin Dose 30 UNIT; Start 10/31/16 at 20:00 Diagnostic Test (Pha) 1 ea 1 ea 02 XX ; Start 11/01/16 at 02:00 Ferric Sodium Gluconate Complex/ Sodium Chloride (Ferrlecit/NS) 110 ml @ 100 mls/hr Q24H IVPB Last administered on 11/02/16 12:05; Admin Dose 100 MLS/HR; Start 11/01/16 at 13:00; Stop 11/03/16 at 14:05 Azithromycin (Zithromax) 500 mg DAILY PO Last administered on 11/02/16 14:21; Admin Dose 500 MG; Start 11/02/16 at 14:00 Assessment/Plan Additional Assessment/Plan IMP: 1. Bronchial wall thickening/Tubular lingular opacity (2.5 cm)/and eosinophilia- -raise concern for ABPA. RECS 1. Await total IgE and IgG/IgE for Aspergillus 2. Follow-up TB quant gold and cocci serologies 3. Repeat CT chest in 3 months EVER OSHEA MD Nov 02, 2016 16:16
[2016-11-02 19:58] VITALS: BP 138/78; PULSE 90; RESP 19
[2016-11-02] MEDS: ATORVASTATIN 10 MG TAB PO SCH (20:08)
[2016-11-02] MEDS: ACETAMINOPHEN 325 MG TAB PO PRN (20:08)
[2016-11-02] MEDS: LACTULOSE 30ML CUP PO SCH (20:08)
[2016-11-02] MEDS: INSULIN GLARGINE [LANtus] 3 ML PEN SC SCH (21:02)
[2016-11-03] MEDS: ACCU-CHEK XX SCH ×2 (02:00→02:04)
[2016-11-03] MEDS: ALBUTEROL/IPRATROPIUM (NEB) 3 ML AMP HHN SCH ×3 (02:00→14:00)
[2016-11-03 05:13] LABS: ADD SCAN DIFF NO
[2016-11-03 05:25] LABS: ABNORMAL IP MESSAGE 1; BASOPHILS % 0.5 % (0.0-2.0); EOSINOPHILS # 0.3 10^3/ul (0.0-0.5); EOSINOPHILS % 8.3 % (0.0-7.0); HEMATOCRIT 26.3 % (42.0-52.0); HEMOGLOBIN 7.9 g/dl (14.0-18.0); LYMPHOCYTES # 0.8 10^3/ul (0.8-2.9); LYMPHOCYTES % 19.5 % (15.0-51.0); MEAN CORPUSCULAR HEMOGLOBIN 26.9 pg (29.0-33.0); MEAN CORPUSCULAR VOLUME 89.5 fl (82.0-101.0); MEAN PLATELET VOLUME 10.8 fl (7.4-10.4); MONOCYTE # 0.5 10^3/ul (0.3-0.9); MONOCYTES % 12.2 % (0.0-11.0); NEUTROPHIL # 2.3 10^3/ul (1.6-7.5); NEUTROPHILS % 59.2 % (39.0-77.0); PLATELET COUNT 91 10^3/UL (140-415); POTASSIUM 3.8 mmol/L (3.5-5.1); RED BLOOD COUNT 2.94 10^6/ul (4.70-6.10); RED CELL DISTRIBUTION WIDTH 18.2 % (11.5-14.5); WHITE BLOOD COUNT 3.8 10^3/ul (4.8-10.8)
[2016-11-03 05:28] LABS: CREATININE 2.18 mg/dl (0.61-1.24)
[2016-11-03 05:29] LABS: CALCIUM 8.3 mg/dl (8.4-10.2)
[2016-11-03] MEDS: PANTOPRAZOLE (EC) 40 MG TAB PO SCH (05:49)
[2016-11-03] MEDS: FUROSEMIDE 40 MG INJ IV SCH (05:49)
[2016-11-03] MEDS: SUCRALFATE 1 GM TAB PO SCH ×2 (05:49→12:18)
--- NOTE | 2016-11-03 07:22 | PN ---
DATE: 11/02/2016 SUBJECTIVE: The patient continues to have left upper quadrant pain. He is also complaining of rig ht upper quadrant pain today with some shortness of breath. Complains of cough with mucopurulent ex pectoration. PHYSICAL EXAMINATION GENERAL: The patient is awake, afebrile. VITAL SIGNS: Temperature 98.2, blood pressure 141/73, O2 sats 96% on room air. HEENT: Head normocephalic. Mild pallor without cyanosis. Tongue is coated, dry. NECK: Supple. No thyromegaly, bruit or lymphadenopathy. LUNGS: Clinically clear. ABDOMEN: Obese. No definite tenderness on the left or right upper quadrant. EXTREMITIES: Trace edema. Homans negative. LABORATORY DATA: WBC count 3.6, hematocrit 26.9, platelet count 89,000. Potassium 3.9, BUN 36, cre atinine 1.93, glucose 234. IMPRESSION: 1. Pain persistent left upper quadrant, likely musculoskeletal, not improved. 2. Anemia secondary to pancytopenia with cirrhosis with portal hypertension with an element of iron deficiency anemia as well. So far no evidence for gastrointestinal bleed. 3. Severe obstructive sleep apnea. 4. Status post severe bradycardia with Mobitz type 2, resolved, secondary to beta blockers. 5. Diabetes mellitus type 2, not adequately controlled. 6. Chronic kidney disease. 7. Acute bronchitis. PLAN: Will start the patient on a course of Zithromax. The patient has been advised regardin g need for diet and exercise and need for weight loss. CAT scan finding of lingular opacity c m noted and will obtain total IgG for aspergillus and also TB QuantiFERON Gold and serologies for __ ___. Eventually patient will need to be cleared from cardiac standpoint for consideration of a marcell mya sleeve procedure. Dictated By: JENY MORA MD SR/NTS Conf#: [id number] DID#: [id number]
[2016-11-03] MEDS: INSULIN ASPART [NOVOLOG] 3 ML PEN SC SCH ×2 (07:40→12:25)
[2016-11-03 07:54] VITALS: BP 141/86; RESP 19
[2016-11-03] MEDS: RIFAXIMIN 550 MG TAB PO SCH (09:38)
[2016-11-03] MEDS: AZITHROMYCIN 250 MG TAB PO SCH (09:38)
[2016-11-03] MEDS: NIFEdipine (XL) 30 MG TAB PO SCH (09:38)
[2016-11-03] MEDS: MELOXICAM 15 MG TAB PO SCH (09:39)
[2016-11-03] MEDS: HEPARIN 5,000 UNIT/0.5 ML VIAL SC SCH (10:01)
--- NOTE | 2016-11-03 11:22 | CONS ---
Date/Time of Note Date/Time of Note DATE: 11/03/16 TIME: 11:19 Consult Date/Type/Reason Admit Date/Time Oct 24, 2016 at 12:07 Initial Consult Date 10/26/16 Type of Consultation: Pulm Ordering Provider: JENY MORA MD Objective Vital Signs Date Time Temp Pulse Resp B/P Pulse Ox O2 Delivery O2 Flow Rate FiO2 11/03/16 07:54 97.9 73 19 141/86 93 11/02/16 22:17 21 11/02/16 20:00 Nasal Cannula 2.0 Intake and Output 11/02/16 11/02/16 11/03/16 15:00 23:00 07:00 Intake Total 110 ml 940 ml 480 ml Balance 110 ml 940 ml 480 ml Exam GENERAL: Morbidly obese gentleman comfortable at rest no acute distress VITAL SIGNS: per chart NECK: Supple. No JVD or lymphadenopathy. CARDIAC EXAM: S1, S2. No added sounds or murmurs. CHEST: clear bilaterally, No added sounds, rales or wheezes ABDOMEN: Soft, nontender. No guarding or rebound. EXTREMITIES: No cyanosis, clubbing or edema. NEUROLOGIC: Generalized weakness. No focal deficits. Results/Medications Result Diagram: 11/03/16 0455 11/03/16 0455 Results 24 hrs Laboratory Tests Test 11/02/16 12:03 11/02/16 17:32 11/02/16 20:54 11/03/16 02:02 Bedside Glucose 248 H 204 294 H 231 H Test 11/03/16 04:55 11/03/16 07:37 White Blood Count 3.8 L Red Blood Count 2.94 L Hemoglobin 7.9 L Hematocrit 26.3 L Mean Corpuscular Volume 89.5 Mean Corpuscular Hemoglobin 26.9 L Mean Corpuscular Hemoglobin Concent 30.0 L Red Cell Distribution Width 18.2 H Platelet Count 91 L Mean Platelet Volume 10.8 H Neutrophils % 59.2 Lymphocytes % 19.5 Monocytes % 12.2 H Eosinophils % 8.3 H Basophils % 0.5 Nucleated Red Blood Cells % 0.0 Neutrophils # 2.3 Lymphocytes # 0.8 Monocytes # 0.5 Eosinophils # 0.3 Basophils # 0.0 Nucleated Red Blood Cells # 0.0 Sodium Level 137 Potassium Level 3.8 Chloride Level 101 Carbon Dioxide Level 29 Anion Gap 11 Blood Urea Nitrogen 40 H Creatinine 2.18 H Glucose Level 231 H Calcium Level 8.3 L Bedside Glucose 159 Medications Current Medications Lactulose (Enulose) 20 gm QHS PO Last administered on 11/02/16 20:08; Admin Dose 20 GM; Start 10/24/16 at 21:00 Nifedipine (Procardia Xl) 30 mg DAILY PO Last administered on 11/03/16 09:38; Admin Dose 30 MG; Start 10/25/16 at 09:00 Atorvastatin Calcium (Lipitor) 10 mg DAILY@21 PO Last administered on 20:08; Admin Dose 10 MG; Start 10/24/16 at 21:00 Ondansetron HCl (Zofran Inj) 4 mg Q6H PRN IV NAUSEA AND/OR VOMITING; Start at 16:00 Acetaminophen (Tylenol Tab) 650 mg Q6H PRN PO PAIN LEVEL 1-3 OR FEVER Last administered on 11/02/16 20:08; Admin Dose 650 MG; Start 10/24/16 at 16:00 Docusate Sodium (Colace) 100 mg Q12H PRN PO CONSTIPATION; Start 10/24/16 at 16: 00 Diagnostic Test (Pha) (Accu-Chek) 1 ea 02 XX Last administered on 11/03/16 02: 04; Admin Dose 1 EA; Start 10/25/16 at 02:00 Miscellaneous Information 1 ea NOTE XX ; Start 10/24/16 at 21:30 Glucose (Glutose) 15 gm Q15M PRN PO DECREASED GLUCOSE; Start 10/24/16 at 21:30 Glucose (Glutose) 22.5 gm Q15M PRN PO DECREASED GLUCOSE; Start 10/24/16 at 21: 30 Dextrose (D50w Syringe) 25 ml Q15M PRN IV DECREASED GLUCOSE; Start 10/24/16 at 21:30 Dextrose (D50w Syringe) 50 ml Q15M PRN IV DECREASED GLUCOSE; Start 10/24/16 at 21:30 Glucagon (Glucagen) 1 mg Q15M PRN IM DECREASED GLUCOSE; Start 10/24/16 at 21:30 Glucose (Glutose) 15 gm Q15M PRN BUCCAL DECREASED GLUCOSE; Start 10/24/16 at 21 :30 Heparin Sodium (Porcine) (Heparin (5000 Units/0.5 ml)) 5,000 unit BID SC Last administered on 11/03/16 10:01; Admin Dose 5,000 UNIT; Start 10/25/16 at 09:00 Rifaximin (Xifaxan) 550 mg BID PO Last administered on 11/03/16 09:38; Admin Dose 550 MG; Start 10/25/16 at 21:00 Sucralfate (Carafate) 1 gm 0630,1130,1630,21 PO Last administered on 11/03/16 05:49; Admin Dose 1 GM; Start 10/29/16 at 16:30 Dicyclomine HCl (Bentyl) 10 mg TID PRN PO ABD PAIN Last administered on 18:45; Admin Dose 10 MG; Start 10/29/16 at 17:00 Pantoprazole (Protonix Tab) 40 mg DAILY@06 PO Last administered on 11/03/16 05 :49; Admin Dose 40 MG; Start 10/30/16 at 06:00 Morphine Sulfate (morphine) 4 mg Q4H PRN IV pain Last administered on 06:29; Admin Dose 4 MG; Start 10/29/16 at 21:30 Meloxicam (Mobic) 15 mg DAILY PO Last administered on 11/03/16 09:39; Admin Dose 15 MG; Start 10/31/16 at 09:00 Insulin Glargine (Lantus) 30 unit DAILY@20 SC Last administered on 11/02/16 21 :02; Admin Dose 30 UNIT; Start 10/31/16 at 20:00 Diagnostic Test (Pha) 1 ea 1 ea 02 XX ; Start 11/01/16 at 02:00 Ferric Sodium Gluconate Complex/ Sodium Chloride (Ferrlecit/NS) 110 ml @ 100 mls/hr Q24H IVPB Last administered on 11/02/16 12:05; Admin Dose 100 MLS/HR; Start 11/01/16 at 13:00; Stop 11/03/16 at 14:05 Azithromycin (Zithromax) 500 mg DAILY PO Last administered on 11/03/16 09:38; Admin Dose 500 MG; Start 11/02/16 at 14:00 Assessment/Plan Chief Complaint/Hosp Course Assessment 1. Significant anemia, discussed with gastroenterology, no procedures at present would continue with iron replacement history of hepatitis C status post treatment continues with rifaximin 2. Likely obstructive sleep apnea 3. Probable underlying chronic obstructive pulmonary disease with mild hypoxemia , possible component of ABPA given CT findings. IgE pending 4. Renal insufficiency 5. Morbid obesity Recommendations 1. No need for supplemental oxygen at home based on arterial blood gas 2. Await total IgE and IgG for Aspergillus 3. QuantiFERON gold and cocci pending 4. GI recommendations regarding anemia 5. Repeat CT chest in 3 months time Disposition Discharge planning okay from pulmonary standpoint Problems: GUERITA RESENDIZ MD, [facility] Nov 03, 2016 11:22
[2016-11-03] MEDS: SOD FERRIC GLUC COMPLX 125 MG in SOD CHLORIDE 0.9% 100 ML IVPB SCH (12:18)
--- NOTE | 2016-11-03 16:26 | CONS ---
Date/Time of Note Date/Time of Note DATE: 11/03/16 TIME: 16:24 Assessment/Plan Assessment/Plan Additional Assessment/Plan Additional Assessment/Plan IMPRESSION: 1. Hepatitis C secondary to a blood transfusion, successfully treated with Harvoni. Patient has cirrhotic liver 1. Diabetes mellitus type 2. 2. Hypertension. 3. Overweight. 4. Shortness of breath, with lethargy. Rule out sleep apnea. Also cannot rule out hepatopulmonary syndrome 5. Anemia, iron deficiency ferritin is only 25 6. Mild elevation of ammonia 56 upper limit at this facility is 30 7. Epigastric and left upper quadrant pain mostly of muscular origin. Responded well to Mobic 8. Pulmonary hypertension, portal hypertension Plan Continue PPI and Carafate NSAID to control his pain. Weight loss Discussed the case with Dr. Mora and also with Dr. Mason. Patient will be evaluated for bariatric surgery. He will be discharged on p.o. iron and PPI Consultation Date/Type/Reason Admit Date/Time Oct 24, 2016 at 12:07 Initial Consult Date 10/25/16 Type of Consultation: Pulm Referring Provider: JENY MORA MD 24 HR Interval Summary Free Text/Dictation Abdominal pain much better Shortness of breath improved Constitutional: improved Exam/Review of Systems Vital Signs Vitals Vital Signs Date Time Temp Pulse Resp B/P Pulse Ox O2 Delivery O2 Flow Rate FiO2 11/03/16 14:02 84 20 96 21 11/03/16 07:54 97.9 141/86 11/02/16 20:00 Nasal Cannula 2.0 Intake and Output 11/02/16 11/02/16 11/03/16 15:00 23:00 07:00 Intake Total 110 ml 940 ml 480 ml Balance 110 ml 940 ml 480 ml Exam Constitutional: alert, oriented, well developed Psych: nl mood/affect, no complaints Head: atraumatic, normocephalic Eyes: EOMI, PERRL, nl conjunctiva, nl lids, nl sclera ENMT: nl external ears & nose, nl lips & teeth, nl nasal mucosa & septum Neck: non-tender, supple Respiratory: clear to auscultation, normal air movement Cardiovascular: nl pulses, regular rate and rhythm Gastrointestinal: nl liver, spleen, non-tender, soft Musculoskeletal: nl extremities to inspection, nl gait and stance Extremities: normal pulses 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: 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 intact, nl mental status, nl speech, nl strength Skin: nl turgor, No rash or lesions Lymph: nl lymph nodes Results Result Diagram: 11/03/16 0455 11/03/16 0455 Results 24 hrs Laboratory Tests Test 11/02/16 17:32 11/02/16 20:54 11/03/16 02:02 11/03/16 04:55 Bedside Glucose 204 294 H 231 H White Blood Count 3.8 L Red Blood Count 2.94 L Hemoglobin 7.9 L Hematocrit 26.3 L Mean Corpuscular Volume 89.5 Mean Corpuscular Hemoglobin 26.9 L Mean Corpuscular Hemoglobin Concent 30.0 L Red Cell Distribution Width 18.2 H Platelet Count 91 L Mean Platelet Volume 10.8 H Neutrophils % 59.2 Lymphocytes % 19.5 Monocytes % 12.2 H Eosinophils % 8.3 H Basophils % 0.5 Nucleated Red Blood Cells % 0.0 Neutrophils # 2.3 Lymphocytes # 0.8 Monocytes # 0.5 Eosinophils # 0.3 Basophils # 0.0 Nucleated Red Blood Cells # 0.0 Sodium Level 137 Potassium Level 3.8 Chloride Level 101 Carbon Dioxide Level 29 Anion Gap 11 Blood Urea Nitrogen 40 H Creatinine 2.18 H Glucose Level 231 H Calcium Level 8.3 L Test 11/03/16 07:37 11/03/16 12:04 Bedside Glucose 159 197 Medications Medications Current Medications Lactulose (Enulose) 20 gm QHS PO Last administered on 11/02/16 20:08; Admin Dose 20 GM; Start 10/24/16 at 21:00 Nifedipine (Procardia Xl) 30 mg DAILY PO Last administered on 11/03/16 09:38; Admin Dose 30 MG; Start 10/25/16 at 09:00 Atorvastatin Calcium (Lipitor) 10 mg DAILY@21 PO Last administered on 20:08; Admin Dose 10 MG; Start 10/24/16 at 21:00 Diagnostic Test (Pha) (Accu-Chek) 1 ea 02 XX Last administered on 11/03/16 02: 04; Admin Dose 1 EA; Start 10/25/16 at 02:00 Miscellaneous Information 1 ea NOTE XX ; Start 10/24/16 at 21:30 Insulin Glargine (Lantus) 30 unit DAILY@20 SC Last administered on 11/02/16 21 :02; Admin Dose 30 UNIT; Start 10/31/16 at 20:00 Diagnostic Test (Pha) (Accu-Chek) 1 XX ; Start 11/01/16 at 02:00 STUART STANLEY MD Nov 03, 2016 16:26
--- NOTE | 2016-11-03 23:45 | CONS ---
DATE OF ADMISSION: 10/24/2016 DATE OF CONSULTATION: 11/03/2016 TYPE OF CONSULTATION: Surgical. REFERRING PHYSICIANS: 1. Dr. Ivan Brice 2. Dr. Stuart Arteaga OTHER PHYSICIANS INVOLVED: 1. Dr. Jamey Barrios 2. Dr. Hans Jimenez CHIEF COMPLAINT: 1. Morbid obesity with BMI of 41. 2. Sleep apnea. 3. Hypertension. 4. Diabetes. 5. Congestive heart failure. 6. Hepatitis C. 7. Cirrhosis, status post treatment. HISTORY OF PRESENT ILLNESS: Tyrone El is a 61-year-old male with multiple significant com orbidities who was admitted for respiratory distress, shortness of breath, cough, and upper abdomina l pain. The patient has been stabilized and, at this point, surgical consult is obtained for his mo rbid obesity. He denies any nausea or vomiting currently. He denies any seizure or rash. Denies a ny dysuria. Denies any visual or neurologic changes. Denies changes in bowel habits. Denies weigh t changes. No skin, urine, or eyeball color change. PAST MEDICAL HISTORY: 1. Hepatitis C secondary to blood transfusion successfully treated with Harvoni. 2. Cirrhotic liver, Child's class A. 3. Diabetes mellitus type 2. 4. Hypertension. 5. Morbid obesity with BMI of 41. 6. Shortness of breath on exertion. 7. Probable sleep apnea. 8. Anemia with iron deficiency. 9. Elevated ammonia. 10. Pulmonary hypertension. 11. Congestive heart failure. 12. Anemia. 13. Leukopenia. 14. Thrombocytopenia. 15. Renal insufficiency. 16. Hypocalcemia. 17. Hypoalbuminemia. PAST SURGICAL HISTORY: Ankle, appendectomy. Skin grafting to right lower extremity. MEDICATIONS: As per SEP. ALLERGIES: NONE. SOCIAL HISTORY: Quit smoking 30 years ago. No alcohol or drug abuse. FAMILY HISTORY: Mother has hypertension. One brother at 75 of coronary artery disease. Four sisters have diabetes and hypertension. REVIEW OF SYSTEMS: A 12-point review of systems negative unless addressed in the HPI. He does snor e. He has a remote history of black stool, but he is on iron medication. He does have left-sided b ack and lower extremity pain due to sciatica. History of right lower extremity ulcer that was treat ed. PHYSICAL EXAMINATION: VITAL SIGNS: Temperature 97.9, pulse 70s to 80s, blood pressure 141/86, saturating 93% 0.21 FIO2. GENERAL: Morbid obesity, no acute distress. HEENT: Pupils equal, reactive. No scleral icterus. Mucous membranes are moist. NECK: Supple. Minimal JVD. PULMONARY: Normal respiratory effort. No wheezing. HEART: S1, S2 present. ABDOMEN: Soft, obese, nontender. No rebound. EXTREMITIES: With edema. VASCULAR: Cap refill less than 2 seconds. NEUROLOGIC: Alert, oriented, moves all 4 extremities grossly. LABORATORY AND RADIOGRAPHIC: As per chart and HPI. ASSESSMENT AND PLAN: Tyrone El is a 61-year-old male with multiple significant comorbidit ies. 1. Morbid obesity. I discussed different surgical options of lap band versus balloon versus gastri c bypass versus a sleeve gastrectomy. Due to his liver disease, bypass may not be the best option f or him, specifically not the duodenal switch. Lap band or the balloon will probably not be as succe ssful for him. We discussed a sleeve gastrectomy. Advised the patient that this is a tool that wou ld only improve his health status, if he is a willing participant in terms of diet and exercise for the rest of his lifetime. However, I advised the patient that he is at a higher risk and prior to p roceeding with surgery, he has to be fully optimized and cleared by our medical teams. In the meant noni, he would need to be evaluated by a performance architect and psychologist, have an EGD, and have other w orkups to get him optimized and possibly cleared to proceed with surgery. 2. Hepatitis C history secondary to blood transfusions, status post treatment, however, with cirrho sis and sequelae of that, including thrombocytopenia. Continue medical and GI optimization. 3. Congestive heart failure with pulmonary hypertension and edema. Continue judicious fluid manage ment, cardiac optimization, and encourage weight loss. 4. Diabetes mellitus. Continue nutrition and medication control and encourage weight loss. 5. Hypertension. Continue nutrition and medication control and encourage weight loss. 6. Renal insufficiency. Continue judicious fluid management. 7. Hypoalbuminemia is multifactorial; however, he will benefit from nutritional optimization. 8. Elevated ammonia levels due to liver disease. Continue medical management. Rule out hepatorena l syndrome. 9. Anemia, iron deficiency, without active blood loss. Continue medical and GI workup prior to con sideration for surgery. 10. Leukopenia secondary to above and workup per medical team in process. Thank you very much for consulting me in this patient's care. Dictated By: TERRELL BORJA/PEG Conf#: [id number] DID#: [id number] CC: IVAN BRICE MD; STUART ARTEAGA MD;*EndCC*
--- NOTE | 2016-11-04 02:35 | DS ---
DATE OF ADMISSION: 10/24/2016 DATE OF DISCHARGE: 11/03/2016 FINAL DIAGNOSES: 1. Severe obstructive sleep apnea. 2. Anemia secondary to pancytopenia with cirrhosis with portal hypertension with an element of iron deficiency as well secondary to chronic kidney disease. 3. Status post severe bradycardia with Mobitz type 2 block, resolved secondary to beta blockers, wh ich have been discontinued. 4. Diabetes mellitus type 2. 5. Metabolic syndrome. 6. Chronic kidney disease. 7. Acute bronchitis, resolved. 8. Left upper quadrant pain, resolved, likely musculoskeletal. 9. CAT scan finding of lingular opacity, left upper lobe, probably secondary to prior granulomatous disease. Workup for aspergillosis and cocci in progress. 10. Pulmonary arterial hypertension. 11. Possible underlying coronary artery disease. 12. Hepatic cirrhosis secondary to hepatitis C, which has been resolved with treatment. Hepatitis C acquired secondary to blood transfusion. HOSPITAL COURSE: The patient is a 61-year-old gentleman, originally from [place], with diabetes melli tus type 2 for the past 12 years with prior history of hepatitis C secondary to blood transfusion di agnosed in 2010, treated with no evidence of any infection presenting with a 4 week history of progr essive weight gain with shortness of breath with periods of confusion. The patient was evaluated in the emergency room. Initially thought to have massive ascites; however, ultrasound did not show an y evidence of significant fluid. The patient had previously been on benazepril, which was discontin ued because of increasing BUN and creatinine. The patient was found to be severely obese, lethargic at times with slurred speech. Blood pressure 113/72. Chest: Clinically clear. Heart: S1, S2 wi th no gallops. Abdomen: Moderately protuberant with 2+ pitting edema lower extremities. Homans ne gative. Initial BUN of 34, creatinine 1.85, alkaline phosphatase 136. Ammonia level was 21, albumi n 2.9. The patient was begun on CPAP. Initial ultrasound did not show much fluid, so paracentesis was not done. The patient had evidence of a type 2 Mobitz block with heart rate dropping into the 2 0s, carvedilol was held, and cardiac condition improved. The patient was seen by Dr. Arteaga from GI standpoint. From pulmonary standpoint, by Dr. Barrios. The patient began improving gradually. Hi s hematocrit dropped to 26.1, hemoglobin of 7.5 on 10/28/2016. The patient was transfused with 2 un its of packed cells. There was no evidence of sepsis. Blood and urine cultures remained negative. Stool for OB was negative as well. The patient remained stable and it was felt that patient should undergo a gastric sleeve procedure in view of severe obesity, which is impacting his diabetic contr ol as well as sleep apnea. Consultation was requested with Dr. Morales and will follow his recommen dations. The patient was discharged home in much improved condition on 11/03/2016 to continue all h is prior meds. DISCHARGE MEDICATIONS: 1. Glipizide. 2. Lasix. 3. Nifedipine. 4. Lantus insulin. 5. Zocor. 6. The patient has been advised to hold off on carvedilol. DISCHARGE INSTRUCTIONS: The patient will undergo outpatient cardiac workup to get cardiac clearance , after which will consider getting gastric sleeve procedure. The patient will also follow with Dr. Barrios as outpatient. The patient will be followed over the course of next week. A repeat CBC an d CMP will be ordered for next Thursday and I will follow the same. The patient has also certainly be en advised to stop drinking any alcohol and he understands that. Dictated By: JENY MORA MD, SR/PEG Conf#: [id number] DID#: [id number]
[2016-11-04 12:31] LABS: TB-NIL 3.39 IU/mL
== END 2016-11-03 17:00 | disposition home or self-care (01) | DRG 809 ==
LOC: E/R 10:00 → MS4 12:07 → MS2 10-31 17:07
PROVIDERS: ADMIT Internal Medicine; ATTEND Internal Medicine
PROC: 4A033R1 Measurement of Arterial Saturation, Peripheral, Percutaneous Approach (ICD-10-PCS; 2016-10-24)
PROC: 30233N1 Transfusion of Nonautologous Red Blood Cells into Peripheral Vein, Percutaneous Approach (ICD-10-PCS; principal; 2016-10-28)
DX: D61.818 Other pancytopenia (principal); K76.6 Portal hypertension; E11.22 Type 2 diabetes mellitus with diabetic chronic kidney disease; E72.20 Disorder of urea cycle metabolism, unspecified; I50.9 Heart failure, unspecified; I13.0 Hypertensive heart and chronic kidney disease with heart failure and stage 1 through stage 4 chronic kidney disease, or unspecified chronic kidney disease; I44.1 Atrioventricular block, second degree; Z68.41 Body mass index [BMI] 40.0-44.9, adult; D50.9 Iron deficiency anemia, unspecified; K74.60 Unspecified cirrhosis of liver; E66.01 Morbid (severe) obesity due to excess calories; E88.81 Metabolic syndrome and other insulin resistance; N18.9 Chronic kidney disease, unspecified; G47.33 Obstructive sleep apnea (adult) (pediatric); R00.1 Bradycardia, unspecified; R10.12 Left upper quadrant pain; J20.9 Acute bronchitis, unspecified; Z87.891 Personal history of nicotine dependence; I27.2 Other secondary pulmonary hypertension; D63.1 Anemia in chronic kidney disease; Z79.4 Long term (current) use of insulin
CPT/HCPCS: 36415; 36430; 36600; 71010; 71250; 74176; 76705; 80048; 80053; 80061; 81001; 81003; 82105; 82140; 82150; 82270; 82607; 82728; 82746; 82785; 82803; 82962; 83605; 83690; 83735; 83880; 84436; 84443; 84484; 85025; 85045; 85610; 85730; 86140; 86480; 86606; 86635; 86850; 86900; 86901; 86920; 87040; 87086; 93005; 93306; 94060; 94640; 94660; 94664; 94726; 94729; 96374; 97162; C9113; J1644; J1650; J1815; J1940; J2270; J2916; P9016

== ENCOUNTER → 2016-11-10 | Outpatient (CLI) | payer BC ==
[~2016-11-10] MED LIST changes: -AUG875 PO; -BENA5TAB2 PO; -CARV3.1260 PO; -INSU100V18 SC; +SIMV20TA PO
[2016-11-10 09:40] LABS: ADD SCAN DIFF NO
[2016-11-10 10:04] LABS: BASOPHILS % 0.4 % (0.0-2.0); EOSINOPHILS # 0.5 10^3/ul (0.0-0.5); EOSINOPHILS % 9.9 % (0.0-7.0); HEMATOCRIT 28.8 % (42.0-52.0); HEMOGLOBIN 8.6 g/dl (14.0-18.0); LYMPHOCYTES # 1.1 10^3/ul (0.8-2.9); LYMPHOCYTES % 21.9 % (15.0-51.0); MEAN CORPUSCULAR HEMOGLOBIN 27.5 pg (29.0-33.0); MEAN CORPUSCULAR HGB CONC 29.9 g/dl (32.0-37.0); MEAN PLATELET VOLUME 10.5 fl (7.4-10.4); MONOCYTE # 0.4 10^3/ul (0.3-0.9); MONOCYTES % 7.8 % (0.0-11.0); NEUTROPHIL # 2.9 10^3/ul (1.6-7.5); NEUTROPHILS % 59.8 % (39.0-77.0); PLATELET COUNT 130 10^3/UL (140-415); RED BLOOD COUNT 3.13 10^6/ul (4.70-6.10); RED CELL DISTRIBUTION WIDTH 18.8 % (11.5-14.5); WHITE BLOOD COUNT 4.9 10^3/ul (4.8-10.8)
[2016-11-10 10:12] LABS: ALBUMIN 3.1 g/dl (3.3-4.9); POTASSIUM 3.8 mmol/L (3.5-5.1)
[2016-11-10 10:15] LABS: ALBUMIN/GLOBULIN RATIO 0.65; BILIRUBIN,INDIRECT 0.4 mg/dl (0-1.1); BILIRUBIN,TOTAL 0.4 mg/dl (0.2-1.3); CALCIUM 8.7 mg/dl (8.4-10.2); CREATININE 2.04 mg/dl (0.61-1.24); TOTAL PROTEIN 7.8 g/dl (6.1-8.1)
== END | disposition home or self-care (01) ==
LOC: LAB 09:20
PROVIDERS: ATTEND Internal Medicine
DX: I10 Essential (primary) hypertension (principal); D64.9 Anemia, unspecified
CPT/HCPCS: 80053; 85025

== ENCOUNTER 2017-01-07 07:58 | Inpatient (IN) | payer BC ==
[~2017-01-07] VITALS: Ht 180.3 cm; Wt 156.0 kg
[2017-01-07 09:17] LABS: ADD SCAN DIFF NO
[2017-01-07 09:21] LABS: BASOPHILS % 0.4 % (0.0-2.0); EOSINOPHILS # 0.3 10^3/ul (0.0-0.5); EOSINOPHILS % 5.7 % (0.0-7.0); HEMATOCRIT 33.1 % (42.0-52.0); HEMOGLOBIN 9.9 g/dl (14.0-18.0); LYMPHOCYTES # 0.6 10^3/ul (0.8-2.9); LYMPHOCYTES % 12.3 % (15.0-51.0); MEAN CORPUSCULAR HEMOGLOBIN 25.8 pg (29.0-33.0); MEAN CORPUSCULAR HGB CONC 29.9 g/dl (32.0-37.0); MEAN CORPUSCULAR VOLUME 86.2 fl (82.0-101.0); MEAN PLATELET VOLUME 11.1 fl (7.4-10.4); MONOCYTE # 0.4 10^3/ul (0.3-0.9); NEUTROPHIL # 3.6 10^3/ul (1.6-7.5); NEUTROPHILS % 73.4 % (39.0-77.0); PLATELET COUNT 140 10^3/UL (140-415); RED BLOOD COUNT 3.84 10^6/ul (4.70-6.10); RED CELL DISTRIBUTION WIDTH 16.8 % (11.5-14.5); WHITE BLOOD COUNT 4.9 10^3/ul (4.8-10.8)
--- NOTE | 2017-01-07 09:33 | RADRPT ---
PROCEDURE: CT Abdomen and Pelvis without contrast. CLINICAL INDICATION: Ascites. TECHNIQUE: Routine abdominopelvic CT was performed without intravenous contrast and reformatted in the axial, coronal, sagittal planes. Radiation dose: CTDIvol (mGy) = 23.8; total DLP mGy-cm = 1650. One or more of the following radiation dose techniques were used: -Automated exposure control. -Adjust of the mA and/or kV according to patient size. -Use of iterative reconstruction technique. COMPARISON: CT, 10/26/2016. FINDINGS: Markedly cirrhotic liver with stigmata of portal hypertension including large portosystemic collater al vessels, splenomegaly, and small to moderate abdominopelvic ascites. The biliary system is nondilated. Limited unenhanced images of the pancreas, adrenal glands, kidney s, and spleen demonstrate no gross abnormality. There is no evidence of bowel obstruction. Mildly prominent bilateral inguinal lymph nodes, likely reactive. Postoperative changes reflecting prior midline incision. Diffuse overlying anasarca. IMPRESSION: Examination is limited without intravenous contrast, which significantly limits diagnostic sensitivi ty. Markedly cirrhotic liver with stigmata of portal hypertension including large portosystemic collater al vessels, splenomegaly, and small to moderate abdominopelvic ascites. RPTAT: EE .Mike Giang MD, Date Time Electronically viewed and signed by .Mike Giang MD, on 01/07/2017 09:37 .C/
--- NOTE | 2017-01-07 09:39 | RADRPT ---
PROCEDURE: Chest 1 views. CLINICAL INDICATION: Chest pain TECHNIQUE: AP views of the chest was obtained. COMPARISON: October 27, 2016 FINDINGS: The heart is large. Central pulmonary vascular congestion and interstitial prominence is seen in bot h lungs. Chronic elevation of the right hemidiaphragm is observed. Atelectasis is noted at the rig ht lung base. No consolidations are identified. No pneumothorax is seen. Osseous structures are i ntact. IMPRESSION: Cardiomegaly . Mild central pulmonary vascular congestion and interstitial prominence in both lungs. Elevation of the right hemidiaphragm with associated basilar atelectasis. RPTAT: AA .Jorge Mcdaniels MD, MD Date Time Electronically viewed and signed by .Jorge Mcdaniels MD, on 01/07/2017 09:39 .P/
[2017-01-07 09:40] LABS: INR 1.02; PROTIME 13.4 Sec (12.2-14.2)
[2017-01-07 10:07] LABS: TROPONIN-I 0.065 ng/ml (0.00-0.12)
[2017-01-07 10:26] LABS: CALCIUM 8.7 mg/dl (8.4-10.2); CREATININE 2.68 mg/dl (0.61-1.24); POTASSIUM 3.4 mmol/L (3.5-5.1)
[2017-01-07] MEDS ORDERED: ACETAMINOPHEN 325 MG TAB PO PRN (10:30)
[2017-01-07] MEDS ORDERED: ONDANSETRON 4 MG INJ IV PRN (10:30)
--- NOTE | 2017-01-07 10:54 | ERA ---
ER Documentation Chief Complaint Date/Time DATE: 01/07/17 TIME: 10:51 Chief Complaint sob, abd distention, dizziness, hx cirrhosis HPI This is a 61-year-old male with a history of hypertension, hepatitis C from previous blood transfusion, liver cirrhosis who presents to the emergency room for evaluation of shortness of breath, abdominal distention, and swelling in his extremities for the past week which is progressively gotten worse. This patient is on Lasix 80 mg daily. The patient states he is also feeling mildly nauseous and was brought to the emergency room for further evaluation. Patient denies any aggravating or relieving factors for symptoms and came to the ER ROS All systems reviewed and are negative except as per history of present illness. Medications Home Meds Reported Medications Simvastatin* (Zocor*) 20 Mg Tablet, 20 MG PO QHS, #30 TAB 10/24/16 Lactulose* (Lactulose*) 20 Gm/30 Ml Solution, 20 GM PO QHS, ML 05/30/15 Nifedipine* (Adalat CC*) 30 Mg Tablet.sa, 30 MG PO DAILY, TAB.SA 05/30/15 Furosemide* (Furosemide*) 80 Mg Tablet, 80 MG PO DAILY, TAB 05/30/15 Allergies Allergies: Coded Allergies: No Known Allergy (Unverified , 05/30/15) PMhx/Soc History of Surgery: Yes (ANKLE SURGERY; appendectomy) Anesthesia Reaction: No Hx 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 Disorder: No Hx Respiratory Disorders: No Hx Cardiac Disorders: Yes (HTN) Hx Psychiatric Problems: No Hx Miscellaneous Medical Probl: Yes (DM, hep C due to transfusion,morbid obesity; liver cirrhosis) Hx Alcohol Use: No Hx Substance Use: No Hx Tobacco Use: Yes Smoking Status: Former smoker Physical Exam Vitals Vital Signs Date Time Temp Pulse Resp B/P Pulse Ox O2 Delivery O2 Flow Rate FiO2 01/07/17 10:20 82 26 150/90 100 Nasal Cannula 3.0 01/07/17 08:35 Nasal Cannula 2 01/07/17 08:33 81 22 147/88 98 Nasal Cannula 2.0 01/07/17 08:01 97.2 87 32 167/88 95 Physical Exam INITIAL VITAL SIGNS: Reviewed by me GENERAL: The patient is well developed and appropriate for usual state of health in no apparent distress HEENT: Pupils equal, round, and reactive to light. EOMI. There is no scleral icterus. NECK: C-spine is soft and supple, there is no meningismus. There is no cervical lymphadenopathy. LUNGS: Clear to auscultation bilaterally. There are no rales, wheezes or rhonchi. HEART: Regular rate and rhythm, no murmurs, clicks, rubs or gallops. ABDOMEN: Mild abdominal distention. There are bowel sounds in all four quadrants. No rebound or guarding. EXTREMITIES: 2+ pitting edema in the bilateral lower extremity. No focal swelling or erythema. NEUROLOGICAL: The patient moves all four extremities with 5/5 strength. Cranial nerves II - XII are intact. Normal gait. Alert and oriented SKIN: There is no apparent rash or petechiae. HEME/LYMPHATIC: There is no evidence of excessive bruising or lymphedema. PSYCHIATRIC: The patient does not appear anxious or depressed. Result Diagram: 01/07/17 0840 01/07/17 0840 Results 24 hrs Laboratory Tests Test 01/07/17 08:40 White Blood Count 4.910^3/ul Red Blood Count 3.8410^6/ul Hemoglobin 9.9g/dl Hematocrit 33.1% Mean Corpuscular Volume 86.2fl Mean Corpuscular Hemoglobin 25.8pg Mean Corpuscular Hemoglobin Concent 29.9g/dl Red Cell Distribution Width 16.8% Platelet Count 54181^3/UL Mean Platelet Volume 11.1fl Neutrophils % 73.4% Lymphocytes % 12.3% Monocytes % 8.0% Eosinophils % 5.7% Basophils % 0.4% Nucleated Red Blood Cells % 0.0/100WBC Neutrophils # 3.610^3/ul Lymphocytes # 0.610^3/ul Monocytes # 0.410^3/ul Eosinophils # 0.310^3/ul Basophils # 0.010^3/ul Nucleated Red Blood Cells # 0.010^3/ul Prothrombin Time 13.4Sec Prothrombin Time Ratio 1.0 INR International Normalized Ratio 1.02 Activated Partial Thromboplast Time 40.0Sec Sodium Level 144mmol/L Potassium Level 3.4mmol/L Chloride Level 109mmol/L Carbon Dioxide Level 28mmol/L Anion Gap 10 Blood Urea Nitrogen 41mg/dl Creatinine 2.68mg/dl Glucose Level 53mg/dl Calcium Level 8.7mg/dl Troponin I 0.065ng/ml B-Type Natriuretic Peptide 1660PG/ML Current Medications Medications (Trade) Dose Ordered Sig/Irasema Route PRN Reason Start Time Stop Time Status Last Admin Dose Admin Ondansetron HCl (Zofran Inj) 4 mg ER BRIDGE PRN IV NAUSEA AND/OR VOMITING 01/07/17 10:30 01/08/17 10:29 Acetaminophen (Tylenol Tab) 650 mg ER BRIDGE PRN PO MILD PAIN/FEVER 01/07/17 10:30 01/08/17 10:29 Procedures/MDM EKG: Rate/Rhythm: [Normal Sinus Rhythm] QRS, ST, T-waves: [No changes consistent w/ acute ischemia] Impression: [No evidence of ischemia or arrhythmia] Chest X-ray 1V Interpreted by me: Soft Tissue: No acute abnormalities Bones: No acute abnormalities Mediastinum/Cardiac Silhouette/Lungs: [No acute abnormalities] CT abdomen pelvis without: Examination is limited without intravenous contrast, which significantly limits diagnostic sensitivity. Markedly cirrhotic liver with stigmata of portal hypertension including large portosystemic collateral vessels, splenomegaly, and small to moderate abdominopelvic ascites. This 61-year-old male presents to the ER for evaluation of shortness of breath. The patient does have a history of liver cirrhosis secondary to hepatitis C which is secondary to blood transfusion in 2010. The patient states that his shortness of breath is worse when laying flat. When I evaluated him he did have mild abdominal distention. Lab work was obtained including chest x-ray. A CT of the abdomen was also obtained which does not show any signs of obstruction however does show mild to moderate ascites. I did attempt to send this patient to radiology for ultrasound paracentesis however there was not enough fluid for drainage. This patient was admitted previously for similar circumstances. He is on Lasix 80 mg daily. The patient was given 40 mg IV Lasix here in the emergency room. I spoken to his primary care physician, Dr. Brice who agrees this patient can be placed in for admission at this time for gentle diuresis. Departure Diagnosis: Primary Impression: Ascites Additional Impressions: Normocytic anemia Renal insufficiency Cardiomegaly Condition: Stable JUAN M LAWRENCE DO Jan 07, 2017 10:54
--- NOTE | 2017-01-07 14:42 | RADRPT ---
PROCEDURE: US Abdomen (limited). CLINICAL INDICATION: Abdominal pain and distension. TECHNIQUE: Multiple real-time longitudinal and transverse images of the four quadrants of the abdo men were acquired utilizing a curved array transducer. Images were reviewed on a high-resolution PAC S workstation. COMPARISON: None FINDINGS: There is a small amount of free fluid in the abdomen. There is not enough fluid to safely aspirated. Paracentesis was not performed. IMPRESSION: 1. Small amount of free fluid. Paracentesis not performed. RPTAT: QQ .Ulices Silva MD, MD Date Time Electronically viewed and signed by .Ulices Silva MD, MD on 01/07/2017 14:42 .R/
[2017-01-07 15:21] VITALS: PULSE 80
[2017-01-07 15:28] LABS: TROPONIN-I 0.049 ng/ml (0.00-0.12)
[2017-01-07 15:36] LABS: CK-MB 3.44 ng/ml (0.0-2.4)
[2017-01-07 15:52] VITALS: BP 167/67; RESP 18
[2017-01-07 16:00] VITALS: PULSE 81
[2017-01-07] MEDS ORDERED: POTASSIUM CHLORIDE (SR) 20 MEQ TAB PO STA (17:07)
[2017-01-07] MEDS ORDERED: GLUCOSE GEL 15 GRAM TUBE PO PRN ×2 (17:30)
[2017-01-07] MEDS ORDERED: GLUCAGON 1 MG INJ IM PRN (17:30)
[2017-01-07] MEDS ORDERED: GLUCOSE GEL 15 GRAM TUBE BUCCAL PRN (17:30)
[2017-01-07] MEDS ORDERED: DEXTROSE 50% 50 ML SYRINGE IV PRN ×2 (17:30)
[2017-01-07] MEDS: FUROSEMIDE 40 MG INJ IV SCH (18:09)
[2017-01-07] MEDS ORDERED: FUROSEMIDE 40 MG INJ IV ONE (18:30)
[2017-01-07 19:38] VITALS: Ht 180.3 cm; Wt 156.0 kg
[2017-01-07 19:50] VITALS: BP 169/96; RESP 21
[2017-01-07 20:00] VITALS: PULSE 86
[2017-01-07] MEDS: INSULIN ASPART [NOVOLOG] 3 ML PEN SC SCH (20:44)
[2017-01-07] MEDS: LACTULOSE 30ML CUP PO SCH (20:49)
[2017-01-07] MEDS: ATORVASTATIN 20 MG TAB PO SCH ×2 (20:51→22:28)
[2017-01-07 21:26] LABS: TROPONIN-I 0.048 ng/ml (0.00-0.12)
[2017-01-07 21:52] LABS: CK-MB 3.82 ng/ml (0.0-2.4)
[2017-01-07] MEDS: ALBUTEROL/IPRATROPIUM (NEB) 3 ML AMP HHN SCH (22:04)
[2017-01-08] VITALS (14 sets, daily range): BP systolic 142–159; BP diastolic 75–83; PULSE 42–108; RESP 20–21
[2017-01-08] MEDS: INSULIN ASPART [NOVOLOG] 3 ML PEN SC SCH ×6 (01:00→21:00)
[2017-01-08] MEDS: ALBUTEROL/IPRATROPIUM (NEB) 3 ML AMP HHN PRN (05:52)
[2017-01-08 07:31] LABS: ADD SCAN DIFF NO
[2017-01-08 07:34] LABS: BASOPHILS % 0.7 % (0.0-2.0); EOSINOPHILS # 0.4 10^3/ul (0.0-0.5); EOSINOPHILS % 9.3 % (0.0-7.0); HEMATOCRIT 30.6 % (42.0-52.0); HEMOGLOBIN 9.1 g/dl (14.0-18.0); LYMPHOCYTES # 0.7 10^3/ul (0.8-2.9); LYMPHOCYTES % 16.5 % (15.0-51.0); MEAN CORPUSCULAR HEMOGLOBIN 26.1 pg (29.0-33.0); MEAN CORPUSCULAR HGB CONC 29.7 g/dl (32.0-37.0); MEAN CORPUSCULAR VOLUME 87.9 fl (82.0-101.0); MEAN PLATELET VOLUME 11.1 fl (7.4-10.4); MONOCYTE # 0.4 10^3/ul (0.3-0.9); MONOCYTES % 9.6 % (0.0-11.0); NEUTROPHIL # 2.7 10^3/ul (1.6-7.5); NEUTROPHILS % 63.7 % (39.0-77.0); PLATELET COUNT 113 10^3/UL (140-415); RED BLOOD COUNT 3.48 10^6/ul (4.70-6.10); RED CELL DISTRIBUTION WIDTH 16.4 % (11.5-14.5); WHITE BLOOD COUNT 4.2 10^3/ul (4.8-10.8)
[2017-01-08 08:05] LABS: ALBUMIN 2.9 g/dl (3.3-4.9); ALBUMIN/GLOBULIN RATIO 0.74; BILIRUBIN,INDIRECT 0.3 mg/dl (0-1.1); BILIRUBIN,TOTAL 0.3 mg/dl (0.2-1.3); CALCIUM 8.2 mg/dl (8.4-10.2); CREATININE 2.26 mg/dl (0.61-1.24); POTASSIUM 4.3 mmol/L (3.5-5.1); TOTAL PROTEIN 6.8 g/dl (6.1-8.1)
[2017-01-08] MEDS: NIFEdipine (XL) 30 MG TAB PO SCH (08:23)
[2017-01-08] MEDS: FUROSEMIDE 40 MG INJ IV SCH (08:23)
[2017-01-08 08:34] LABS: THYROID STIMULATING HORMONE 0.805 MIU/L (0.465-4.680)
[2017-01-08] MEDS: ALBUTEROL/IPRATROPIUM (NEB) 3 ML AMP HHN SCH ×4 (08:39→20:38)
[2017-01-08] MEDS: ACETAMINOPHEN 500 MG TAB PO PRN (15:33)
[2017-01-08] MEDS: SPIRONOLACTONE 50 MG TAB PO SCH (17:04)
[2017-01-08] MEDS: AZITHROMYCIN 250 MG TAB PO SCH (17:05)
[2017-01-08] MEDS: LACTULOSE 30ML CUP PO SCH (21:07)
[2017-01-08] MEDS: ATORVASTATIN 20 MG TAB PO SCH (21:07)
[2017-01-09] VITALS (11 sets, daily range): BP systolic 128–158; BP diastolic 72–82; PULSE 74–93; RESP 16–20
[2017-01-09] MEDS: INSULIN ASPART [NOVOLOG] 3 ML PEN SC SCH ×6 (01:00→20:35)
[2017-01-09] MEDS: DOCUSATE SODIUM 100 MG CAP PO PRN (01:19)
[2017-01-09] MEDS: ACETAMINOPHEN 500 MG TAB PO PRN ×2 (01:19→07:59)
[2017-01-09] MEDS: ALBUTEROL/IPRATROPIUM (NEB) 3 ML AMP HHN PRN (03:48)
[2017-01-09 08:08] LABS: BASOPHILS % 0.4 % (0.0-2.0); EOSINOPHILS # 0.4 10^3/ul (0.0-0.5); EOSINOPHILS % 7.6 % (0.0-7.0); HEMATOCRIT 30.5 % (42.0-52.0); LYMPHOCYTES # 0.7 10^3/ul (0.8-2.9); LYMPHOCYTES % 13.4 % (15.0-51.0); MEAN CORPUSCULAR HEMOGLOBIN 26.1 pg (29.0-33.0); MEAN CORPUSCULAR HGB CONC 29.5 g/dl (32.0-37.0); MEAN CORPUSCULAR VOLUME 88.4 fl (82.0-101.0); MEAN PLATELET VOLUME 10.6 fl (7.4-10.4); MONOCYTE # 0.5 10^3/ul (0.3-0.9); MONOCYTES % 9.4 % (0.0-11.0); NEUTROPHIL # 3.5 10^3/ul (1.6-7.5); PLATELET COUNT 108 10^3/UL (140-415); RED BLOOD COUNT 3.45 10^6/ul (4.70-6.10); RED CELL DISTRIBUTION WIDTH 16.6 % (11.5-14.5)
[2017-01-09 08:14] LABS: ADD SCAN DIFF NO
[2017-01-09 08:41] LABS: CREATININE 2.58 mg/dl (0.61-1.24); POTASSIUM 4.1 mmol/L (3.5-5.1)
[2017-01-09] MEDS: ALBUTEROL/IPRATROPIUM (NEB) 3 ML AMP HHN SCH ×4 (08:47→20:20)
[2017-01-09] MEDS: FUROSEMIDE 40 MG INJ IV SCH (09:34)
[2017-01-09] MEDS: SPIRONOLACTONE 50 MG TAB PO SCH (09:35)
[2017-01-09] MEDS: AZITHROMYCIN 250 MG TAB PO SCH (09:35)
[2017-01-09] MEDS: NIFEdipine (XL) 30 MG TAB PO SCH (09:35)
--- NOTE | 2017-01-09 09:40 | CONS ---
Date/Time of Note Date/Time of Note DATE: 01/09/17 TIME: 09:36 Assessment/Plan Assessment/Plan Additional Assessment/Plan X-ray was reviewed from admission which is showing very minimal vascular congestion. Assessment recommendations; 1. Patient admitted with shortness of breath due to significant lower extremity edema and mild pulmonary vascular congestion. 2. Advanced cirrhosis of liver due to hepatitis C. 3. Morbid obesity. 4. No significant ascites. 5. Stable thrombocytopenia and anemia. 6. Diabetes and hypertension. Continue current diuresis. The medications as well. Consultation Date/Type/Reason Admit Date/Time Jan 07, 2017 at 10:13 Date of Consultation: Jan 09, 2017 Type of Consultation: Pulmonary Reason for Consultation Pulmonary consult obtained for evaluation of shortness of breath. History of presenting any; patient is a pleasant 61-year-old [place] male who came into the emergency room on the of this month sent over by his primary care physician for possible paracentesis. However workup was done over here including ultrasound of the abdomen which is not revealing any significant ascites. Patient had been complaining of increasing lower extremity swelling as well as shortness of breath upon minimal exertion. Denies any chest pain, wheezing. Fever chills any vomiting or diarrhea. Past medical history; 1. Patient with history of advanced cirrhosis of liver due to hepatitis C. 2. Morbid obesity. 3. Renal insufficiency. 4. Likely underlying sleep apnea. 5. Anemia. 6. Thrombocytopenia. 7. History of diabetes and hypertension. Medications; reviewed. Allergies; none. Social history; patient is a former smoker. Family history; patient is no show any illnesses in the family. Occupation she; patient is on disability. Review of systems; denies any headache, visual changes any seizures. Denies any dysphagia. Any chest pain or angina. Complains of shortness of breath. Denies any coughing, sputum or hemoptysis. Denies any vomiting. Denies any melena or hematochezia. Does complain of increasing lower extremity edema and orthopnea. General exam; elderly male, morbidly obese, currently in no distress, appears mildly anxious Social History Smoking Status: Former smoker Exam/Review of Systems Vital Signs Vitals Vital Signs Date Time Temp Pulse Resp B/P Pulse Ox O2 Delivery O2 Flow Rate FiO2 01/09/17 08:40 77 01/09/17 08:07 98.2 20 151/82 91 01/09/17 03:50 Nasal Cannula 2.0 Intake and Output 01/08/17 01/08/17 01/09/17 15:00 23:00 07:00 Intake Total 1200 ml 250 ml Output Total 350 ml 200 ml Balance 850 ml 50 ml Exam HEENT exam; supple neck, no JVD. No lymphadenopathy. Midline trachea. No thyromegaly. Patient has fair dentition. No neck masses. Pupils are equal and reactive to light. Chest exam; diminished but clear vessel. S1-S2 audible, no murmurs. Regular rhythm. Abdomen exam; protuberant. There is mild bilateral upper quadrant tenderness. Bowel sounds audible. Extremity exam; 3+ pitting edema bilaterally in lower extremities. Pulses 1+ bilaterally. No clubbing. [employer] exam; no focal deficit. Results Result Diagram: 01/09/1725 01/09/17 0725 Results 24 hrs Laboratory Tests Test 01/08/17 12:29 01/08/17 17:20 01/08/17 21:15 01/09/17 01:25 Bedside Glucose 119 137 120 94 Test 01/09/17 05:29 01/09/17 07:25 01/09/17 08:34 Bedside Glucose 145 122 White Blood Count 5.0 Red Blood Count 3.45 L Hemoglobin 9.0 L Hematocrit 30.5 L Mean Corpuscular Volume 88.4 Mean Corpuscular Hemoglobin 26.1 L Mean Corpuscular Hemoglobin Concent 29.5 L Red Cell Distribution Width 16.6 H Platelet Count 108 L Mean Platelet Volume 10.6 H Neutrophils % 69.0 Lymphocytes % 13.4 L Monocytes % 9.4 Eosinophils % 7.6 H Basophils % 0.4 Nucleated Red Blood Cells % 0.0 Neutrophils # 3.5 Lymphocytes # 0.7 L Monocytes # 0.5 Eosinophils # 0.4 Basophils # 0.0 Nucleated Red Blood Cells # 0.0 Sodium Level 142 Potassium Level 4.1 Chloride Level 106 Carbon Dioxide Level 31 Anion Gap 9 Blood Urea Nitrogen 39 H Creatinine 2.58 H Glucose Level 137 # Calcium Level 8.0 L Medications Medications Current Medications Atorvastatin Calcium (Lipitor) 20 mg HS PO Last administered on 01/08/17t 21:07 ; Admin Dose 20 MG; Start 01/07/17 at 21:00 Insulin Aspart (Novolog Insulin Pen) NOVOLOG *MILD* ALGORI... Q4 SC ; Start at 21:00 Miscellaneous Information 1 ea NOTE XX ; Start 01/07/17 at 17:30 Glucose (Glutose) 15 gm Q15M PRN PO DECREASED GLUCOSE; Start 01/07/17 at 17:30 Glucose (Glutose) 22.5 gm Q15M PRN PO DECREASED GLUCOSE; Start 01/07/17 at 17: 30 Dextrose (D50w Syringe) 25 ml Q15M PRN IV DECREASED GLUCOSE; Start 01/07/17 at 17:30 Dextrose (D50w Syringe) 50 ml Q15M PRN IV DECREASED GLUCOSE; Start 01/07/17 at 17:30 Glucagon (Glucagen) 1 mg Q15M PRN IM DECREASED GLUCOSE; Start 01/07/17 at 17:30 Glucose (Glutose) 15 gm Q15M PRN BUCCAL DECREASED GLUCOSE; Start 01/07/17 at 17 :30 Furosemide (Lasix) 40 mg DAILY IV Last administered on 01/08/17 08:23; Admin Dose 40 MG; Start 01/07/17 at 18:00 Nifedipine (Procardia Xl) 30 mg DAILY PO Last administered on 01/08/17 08:23; Admin Dose 30 MG; Start 01/08/17 at 09:00 Lactulose (Enulose) 20 gm HS PO Last administered on 01/08/17 21:07; Admin Dose 20 GM; Start 01/07/17 at 21:00 Spironolactone (Aldactone) 50 mg DAILY PO Last administered on 01/08/17 17:04 ; Admin Dose 50 MG; Start 01/08/17 at 14:00 Docusate Sodium (Colace) 100 mg BID PRN PO CONSTIPATION Last administered on 01:19; Admin Dose 100 MG; Start 01/08/17 at 14:00 Azithromycin (Zithromax) 500 mg DAILY PO Last administered on 01/08/17 17:05; Admin Dose 500 MG; Start 01/08/17 at 14:00; Stop 01/11/17 at 13:59 Acetaminophen (Tylenol Tab) 500 mg Q6H PRN PO PAIN AND OR ELEVATED TEMP Last administered on 01/09/17 07:59; Admin Dose 500 MG; Start 01/08/17 at 15:30 Acetaminophen/ Hydrocodone Bitart ([place] (5/325)) 1 tab Q4H PRN PO PAIN; Start 01/09/17 at 08:30 WALDO FRASER Jan 09, 2017 09:40
[2017-01-09] MEDS: HYDROCODONE/APAP (5/325) TAB PO PRN ×3 (09:49→20:32)
--- NOTE | 2017-01-09 19:47 | CONS ---
Date/Time of Note Date/Time of Note DATE: 01/09/17 TIME: 19:44 Assessment/Plan Assessment/Plan Additional Assessment/Plan 1. Shortness of breath multifactorial 2. Morbid obesity 3. Cirrhosis of liver with portal hypertension 4. Mild ascites 5. Diabetes med 6. Hypertension 7. Renal failure Plan P.o. fluid restriction 1000 cc a day Diuretics Low-sodium diet Monitor BUN and creatinine closely Weight loss Supplemental oxygen Consultation Date/Type/Reason Admit Date/Time Jan 07, 2017 at 10:13 Hx of Present Illness 61-year-old male admitted for shortness of breath. Patient is a history of hepatitis C cirrhosis of liver, morbid obesity obstructive sleep apnea, diabetes mellitus and hypertension. Recent was brought to the emergency room for abdominal distention and shortness of breath. He was slightly nauseous. No GI bleeding no chest pain no or [employer] problem no fever no chills. Eyes: no complaints ENT: no complaints Respiratory: shortness of breath Gastrointestinal: pain Genitourinary: no complaints Musculoskeletal: no complaints Skin: no complaints Neurologic: no complaints Past Medical History Medical History: no pertinent history Past Surgical History Past Surgical Hx: appendectomy Family History Significant Family History: no pertinent family hx Social History Alcohol Use: none Smoking Status: Former smoker Exam/Review of Systems Vital Signs Vitals Vital Signs Date Time Temp Pulse Resp B/P Pulse Ox O2 Delivery O2 Flow Rate FiO2 01/09/17 18:33 2.0 01/09/17 16:28 83 01/09/17 16:26 97.6 18 149/75 95 01/09/17 13:00 Nasal Cannula Intake and Output 01/08/17 01/08/17 01/09/17 15:00 23:00 07:00 Intake Total 1200 ml 250 ml Output Total 350 ml 200 ml Balance 850 ml 50 ml Exam Constitutional: alert, oriented, well developed Psych: nl mood/affect, no complaints Eyes: EOMI, PERRL, nl conjunctiva, nl lids, nl sclera ENMT: nl external ears & nose, nl lips & teeth, nl nasal mucosa & septum Neck: non-tender, supple Respiratory: diminished breath sounds Cardiovascular: nl pulses, regular rate and rhythm Gastrointestinal: distended Musculoskeletal: nl extremities to inspection, nl gait and stance Results Result Diagram: 01/09/17 0725 01/09/17 0725 Results 24 hrs Laboratory Tests Test 01/08/17 21:15 01/09/17 01:25 01/09/17 05:29 01/09/17 07:25 Bedside Glucose 120 94 145 White Blood Count 5.0 Red Blood Count 3.45 L Hemoglobin 9.0 L Hematocrit 30.5 L Mean Corpuscular Volume 88.4 Mean Corpuscular Hemoglobin 26.1 L Mean Corpuscular Hemoglobin Concent 29.5 L Red Cell Distribution Width 16.6 H Platelet Count 108 L Mean Platelet Volume 10.6 H Neutrophils % 69.0 Lymphocytes % 13.4 L Monocytes % 9.4 Eosinophils % 7.6 H Basophils % 0.4 Nucleated Red Blood Cells % 0.0 Neutrophils # 3.5 Lymphocytes # 0.7 L Monocytes # 0.5 Eosinophils # 0.4 Basophils # 0.0 Nucleated Red Blood Cells # 0.0 Sodium Level 142 Potassium Level 4.1 Chloride Level 106 Carbon Dioxide Level 31 Anion Gap 9 Blood Urea Nitrogen 39 H Creatinine 2.58 H Glucose Level 137 # Calcium Level 8.0 L Test 01/09/17 08:34 01/09/17 13:19 01/09/17 17:39 Bedside Glucose 122 169 180 Medications Medications Current Medications Atorvastatin Calcium (Lipitor) 20 mg HS PO Last administered on 01/08/17 21:07 ; Admin Dose 20 MG; Start 01/07/17 at 21:00 Insulin Aspart (Novolog Insulin Pen) NOVOLOG *MILD* ALGORI... Q4 SC Last administered on 01/09/17 17:44; Admin Dose 1 UNIT; Start 01/07/17 at 21:00 Miscellaneous Information 1 ea NOTE XX ; Start 01/07/17 at 17:30 Glucose (Glutose) 15 gm Q15M PRN PO DECREASED GLUCOSE; Start 01/07/17 at 17:30 Glucose (Glutose) 22.5 gm Q15M PRN PO DECREASED GLUCOSE; Start 01/07/17 at 17: 30 Dextrose (D50w Syringe) 25 ml Q15M PRN IV DECREASED GLUCOSE; Start 01/07/17 at 17:30 Dextrose (D50w Syringe) 50 ml Q15M PRN IV DECREASED GLUCOSE; Start 01/07/17 at 17:30 Glucagon (Glucagen) 1 mg Q15M PRN IM DECREASED GLUCOSE; Start 01/07/17 at 17:30 Glucose (Glutose) 15 gm Q15M PRN BUCCAL DECREASED GLUCOSE; Start 01/07/17 at 17 :30 Furosemide (Lasix) 40 mg DAILY IV Last administered on 01/09/17 09:34; Admin Dose 40 MG; Start 01/07/17 at 18:00 Nifedipine (Procardia Xl) 30 mg DAILY PO Last administered on 01/09/17 09:35; Admin Dose 30 MG; Start 01/08/17 at 09:00 Lactulose (Enulose) 20 gm HS PO Last administered on 01/08/17 21:07; Admin Dose 20 GM; Start 01/07/17 at 21:00 Spironolactone (Aldactone) 50 mg DAILY PO Last administered on 01/09/17 09:35 ; Admin Dose 50 MG; Start 01/08/17 at 14:00 Docusate Sodium (Colace) 100 mg BID PRN PO CONSTIPATION Last administered on 01:19; Admin Dose 100 MG; Start 01/08/17 at 14:00 Azithromycin (Zithromax) 500 mg DAILY PO Last administered on 01/09/17 09:35; Admin Dose 500 MG; Start 01/08/17 at 14:00; Stop 01/11/17 at 13:59 Acetaminophen (Tylenol Tab) 500 mg Q6H PRN PO PAIN AND OR ELEVATED TEMP Last administered on 01/09/17 07:59; Admin Dose 500 MG; Start 01/08/17 at 15:30 Acetaminophen/ Hydrocodone Bitart ([place] (5/325)) 1 tab Q4H PRN PO PAIN Last administered on 01/09/17 14:38; Admin Dose 1 TAB; Start 01/09/17 at 08:30 STUART STANLEY MD Jan 09, 2017 19:47
[2017-01-09] MEDS: LACTULOSE 30ML CUP PO SCH (20:32)
[2017-01-09] MEDS: ATORVASTATIN 20 MG TAB PO SCH (21:00)
[2017-01-10] VITALS (15 sets, daily range): BP systolic 138–153; BP diastolic 54–89; PULSE 45–120; RESP 16–25
[2017-01-10] MEDS: INSULIN ASPART [NOVOLOG] 3 ML PEN SC SCH ×6 (01:43→21:53)
[2017-01-10] MEDS: ACETAMINOPHEN 500 MG TAB PO PRN (04:14)
[2017-01-10] MEDS: FUROSEMIDE 40 MG INJ IV SCH (08:52)
[2017-01-10] MEDS: SPIRONOLACTONE 50 MG TAB PO SCH (08:52)
[2017-01-10] MEDS: AZITHROMYCIN 250 MG TAB PO SCH (08:52)
[2017-01-10] MEDS: NIFEdipine (XL) 30 MG TAB PO SCH (08:52)
[2017-01-10] MEDS: ALBUTEROL/IPRATROPIUM (NEB) 3 ML AMP HHN SCH ×4 (09:05→21:15)
[2017-01-10 09:29] LABS: BASOPHILS % 0.6 % (0.0-2.0); EOSINOPHILS # 0.5 10^3/ul (0.0-0.5); EOSINOPHILS % 9.2 % (0.0-7.0); HEMATOCRIT 29.9 % (42.0-52.0); HEMOGLOBIN 8.8 g/dl (14.0-18.0); LYMPHOCYTES # 0.7 10^3/ul (0.8-2.9); LYMPHOCYTES % 14.3 % (15.0-51.0); MEAN CORPUSCULAR HEMOGLOBIN 25.9 pg (29.0-33.0); MEAN CORPUSCULAR HGB CONC 29.4 g/dl (32.0-37.0); MEAN CORPUSCULAR VOLUME 87.9 fl (82.0-101.0); MEAN PLATELET VOLUME 11.4 fl (7.4-10.4); MONOCYTE # 0.4 10^3/ul (0.3-0.9); MONOCYTES % 8.8 % (0.0-11.0); NEUTROPHIL # 3.3 10^3/ul (1.6-7.5); NEUTROPHILS % 66.7 % (39.0-77.0); PLATELET COUNT 113 10^3/UL (140-415); RED CELL DISTRIBUTION WIDTH 16.3 % (11.5-14.5); WHITE BLOOD COUNT 4.9 10^3/ul (4.8-10.8)
[2017-01-10 09:37] LABS: CALCIUM 8.5 mg/dl (8.4-10.2); CREATININE 2.47 mg/dl (0.61-1.24); MAGNESIUM 2.4 mg/dl (1.7-2.5); POTASSIUM 4.2 mmol/L (3.5-5.1)
[2017-01-10] MEDS: HYDROCODONE/APAP (5/325) TAB PO PRN (12:46)
[2017-01-10] MEDS ORDERED: MAGNESIUM HYDROXIDE 30ML CUP PO ONE (16:00)
--- NOTE | 2017-01-10 17:09 | CONS ---
Date/Time of Note Date/Time of Note DATE: 01/10/17 TIME: 17:05 Consult Date/Type/Reason Admit Date/Time Jan 07, 2017 at 10:13 Initial Consult Date 01/09/17 Type of Consultation: Pulmonary Subjective c/o headaches and dyspnea. Objective Vital Signs Date Time Temp Pulse Resp B/P Pulse Ox O2 Delivery O2 Flow Rate FiO2 01/10/17 16:47 81 24 93 Nasal Cannula 2.0 01/10/17 16:12 98.5 149/82 Intake and Output 01/09/17 01/09/17 01/10/17 14:59 22:59 06:59 Intake Total 450 ml 300 ml Output Total 1250 ml 150 ml Balance -800 ml 150 ml Exam HEENT: Neck supple; no JVD; no LAD CVS: RRR, S1 and S2 CHEST: + wheezing ABD: Soft, NT, + BS EXT: No c/c + edema Results/Medications Result Diagram: 01/10/17 0830 01/10/17 0830 Results 24 hrs Laboratory Tests Test 01/09/17 17:39 01/09/17 20:29 01/10/17 01:32 01/10/17 05:49 Bedside Glucose 180 177 201 177 Test 01/10/17 08:30 01/10/17 08:34 01/10/17 12:40 White Blood Count 4.9 Red Blood Count 3.40 L Hemoglobin 8.8 L Hematocrit 29.9 L Mean Corpuscular Volume 87.9 Mean Corpuscular Hemoglobin 25.9 L Mean Corpuscular Hemoglobin Concent 29.4 L Red Cell Distribution Width 16.3 H Platelet Count 113 L Mean Platelet Volume 11.4 H Neutrophils % 66.7 Lymphocytes % 14.3 L Monocytes % 8.8 Eosinophils % 9.2 H Basophils % 0.6 Nucleated Red Blood Cells % 0.0 Neutrophils # 3.3 Lymphocytes # 0.7 L Monocytes # 0.4 Eosinophils # 0.5 Basophils # 0.0 Nucleated Red Blood Cells # 0.0 Sodium Level 143 Potassium Level 4.2 Chloride Level 102 Carbon Dioxide Level 29 Anion Gap 16 # Blood Urea Nitrogen 45 H Creatinine 2.47 H Glucose Level 133 Calcium Level 8.5 Magnesium Level 2.4 Bedside Glucose 135 169 Medications Current Medications Atorvastatin Calcium (Lipitor) 20 mg HS PO Last administered on 01/08/17t 21:07 ; Admin Dose 20 MG; Start 01/07/17 at 21:00 Insulin Aspart (Novolog Insulin Pen) NOVOLOG *MILD* ALGORI... Q4 SC Last administered on 01/10/17 12:49; Admin Dose 1 UNIT; Start 01/07/17 at 21:00 Miscellaneous Information 1 ea NOTE XX ; Start 01/07/17 at 17:30 Glucose (Glutose) 15 gm Q15M PRN PO DECREASED GLUCOSE; Start 01/07/17 at 17:30 Glucose (Glutose) 22.5 gm Q15M PRN PO DECREASED GLUCOSE; Start 01/07/17 at 17: 30 Dextrose (D50w Syringe) 25 ml Q15M PRN IV DECREASED GLUCOSE; Start 01/07/17 at 17:30 Dextrose (D50w Syringe) 50 ml Q15M PRN IV DECREASED GLUCOSE; Start 01/07/17 at 17:30 Glucagon (Glucagen) 1 mg Q15M PRN IM DECREASED GLUCOSE; Start 01/07/17 at 17:30 Glucose (Glutose) 15 gm Q15M PRN BUCCAL DECREASED GLUCOSE; Start 01/07/17 at 17 :30 Furosemide (Lasix) 40 mg DAILY IV Last administered on 01/10/17 08:52; Admin Dose 40 MG; Start 01/07/17 at 18:00 Nifedipine (Procardia Xl) 30 mg DAILY PO Last administered on 01/10/17 08:52; Admin Dose 30 MG; Start 01/08/17 at 09:00 Lactulose (Enulose) 20 gm HS PO Last administered on 01/09/17 20:32; Admin Dose 20 GM; Start 01/07/17 at 21:00 Spironolactone (Aldactone) 50 mg DAILY PO Last administered on 01/10/17 08:52; Admin Dose 50 MG; Start 01/08/17 at 14:00 Docusate Sodium (Colace) 100 mg BID PRN PO CONSTIPATION Last administered on 01:19; Admin Dose 100 MG; Start 01/08/17 at 14:00 Azithromycin (Zithromax) 500 mg DAILY PO Last administered on 01/10/17 08:52; Admin Dose 500 MG; Start 01/08/17 at 14:00; Stop 01/11/17 at 13:59 Acetaminophen (Tylenol Tab) 500 mg Q6H PRN PO PAIN AND OR ELEVATED TEMP Last administered on 01/10/17 04:14; Admin Dose 500 MG; Start 01/08/17 at 15:30 Acetaminophen/ Hydrocodone Bitart ([place] (5/325)) 1 tab Q4H PRN PO PAIN Last administered on 01/10/17 12:46; Admin Dose 1 TAB; Start 01/09/17 at 08:30 Assessment/Plan Additional Assessment/Plan IMP: 1. Dyspnea--likely multifactorial, however, a component of asthma +/- ABPA present. 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 YEVGENIY 4. CKD RECS: 1. BD's 2. CS 3. CPAP at nights EVER OSHEA MD Jan 10, 2017 17:09
[2017-01-10] MEDS: predniSONE 20 MG TAB PO SCH (17:38)
[2017-01-10] MEDS: ATORVASTATIN 20 MG TAB PO SCH (21:00)
[2017-01-10] MEDS: LACTULOSE 30ML CUP PO SCH (21:53)
[2017-01-11] VITALS (15 sets, daily range): BP systolic 103–153; BP diastolic 52–88; PULSE 40–96; RESP 18–20
--- NOTE | 2017-01-11 00:58 | RADRPT ---
PROCEDURE: CT head, without contrast. CLINICAL INDICATION: Severe headache. TECHNIQUE: Noncontrast CT examination of the head, with axial, sagittal and coronal reformatted im ages. Automated dose exposure control was employed. CTDI: 41.12 and DLP: 810.25 COMPARISON: None. FINDINGS: Chronic changes of atrophy and small vessel disease white matter. No acute hemorrhage. Subarachnoid spaces are substantially preserved and symmetric. Ventricles ar e unremarkable. No mass effect. Adams-white matter distinction is preserved without evident decreased attenuation t o suggest acute or recent infarct. Sinuses and osseous structures are unremarkable. IMPRESSION: Chronic changes of atrophy and small vessel disease white matter, and otherwise, no acute process in the head. RPTAT: [facility] Physician Bia Date Time Electronically viewed and signed by Physician Bia on 01/11/2017 00:57 RS/
[2017-01-11] MEDS: INSULIN ASPART [NOVOLOG] 3 ML PEN SC SCH ×6 (01:17→21:20)
[2017-01-11 07:32] LABS: ABNORMAL IP MESSAGE 1; BASOPHILS % 0.3 % (0.0-2.0); EOSINOPHILS % 0.3 % (0.0-7.0); HEMOGLOBIN 9.2 g/dl (14.0-18.0); LYMPHOCYTES # 0.3 10^3/ul (0.8-2.9); LYMPHOCYTES % 8.1 % (15.0-51.0); MEAN CORPUSCULAR HEMOGLOBIN 26.3 pg (29.0-33.0); MEAN CORPUSCULAR HGB CONC 30.7 g/dl (32.0-37.0); MEAN CORPUSCULAR VOLUME 85.7 fl (82.0-101.0); MEAN PLATELET VOLUME 11.1 fl (7.4-10.4); MONOCYTE # 0.1 10^3/ul (0.3-0.9); MONOCYTES % 1.7 % (0.0-11.0); NEUTROPHIL # 3.1 10^3/ul (1.6-7.5); NEUTROPHILS % 89.3 % (39.0-77.0); PLATELET COUNT 119 10^3/UL (140-415); RED CELL DISTRIBUTION WIDTH 16.2 % (11.5-14.5); WHITE BLOOD COUNT 3.4 10^3/ul (4.8-10.8)
[2017-01-11 07:38] LABS: ADD SCAN DIFF NO
[2017-01-11] MEDS: predniSONE 20 MG TAB PO SCH (08:32)
[2017-01-11] MEDS: SPIRONOLACTONE 50 MG TAB PO SCH (08:33)
[2017-01-11] MEDS: NIFEdipine (XL) 30 MG TAB PO SCH (08:33)
[2017-01-11] MEDS: AZITHROMYCIN 250 MG TAB PO SCH (08:33)
[2017-01-11] MEDS: FUROSEMIDE 40 MG INJ IV SCH (08:34)
[2017-01-11] MEDS: ALBUTEROL/IPRATROPIUM (NEB) 3 ML AMP HHN SCH ×4 (08:47→22:03)
[2017-01-11 09:31] LABS: CALCIUM 8.9 mg/dl (8.4-10.2); CREATININE 2.8 mg/dl (0.61-1.24); MAGNESIUM 2.6 mg/dl (1.7-2.5); POTASSIUM 4.8 mmol/L (3.5-5.1)
--- NOTE | 2017-01-11 12:59 | CONS ---
Date/Time of Note Date/Time of Note DATE: 01/11/17 TIME: 12:58 Consult Date/Type/Reason Admit Date/Time Jan 07, 2017 at 10:13 Initial Consult Date 01/09/17 Type of Consultation: Pulmonary Subjective No events. Head CT reviewed--> essentially unremarkable. Objective Vital Signs Date Time Temp Pulse Resp B/P Pulse Ox O2 Delivery O2 Flow Rate FiO2 01/11/17 12:39 91 24 99 Nasal Cannula 3.0 01/11/17 12:15 98.4 126/70 Intake and Output 01/10/17 01/10/17 01/11/17 15:00 23:00 07:00 Intake Total 750 ml 400 ml Output Total 950 ml 800 ml Balance -200 ml -400 ml Exam HEENT: Neck supple; no JVD; no LAD CVS: RRR, S1 and S2 CHEST: + wheezing ABD: Soft, NT, + BS EXT: No c/c + edema Results/Medications Result Diagram: 01/11/17 0715 01/11/17 0715 Results 24 hrs Laboratory Tests Test 01/10/17 17:28 01/10/17 21:51 01/11/17 01:08 01/11/17 05:24 Bedside Glucose 238 H 247 H 342 H 292 H Test 01/11/17 07:15 01/11/17 08:29 01/11/17 12:35 White Blood Count 3.4 #L Red Blood Count 3.50 L Hemoglobin 9.2 L Hematocrit 30.0 L Mean Corpuscular Volume 85.7 Mean Corpuscular Hemoglobin 26.3 L Mean Corpuscular Hemoglobin Concent 30.7 L Red Cell Distribution Width 16.2 H Platelet Count 119 L Mean Platelet Volume 11.1 H Neutrophils % 89.3 H Lymphocytes % 8.1 L Monocytes % 1.7 Eosinophils % 0.3 Basophils % 0.3 Nucleated Red Blood Cells % 0.0 Neutrophils # 3.1 Lymphocytes # 0.3 L Monocytes # 0.1 L Eosinophils # 0.0 Basophils # 0.0 Nucleated Red Blood Cells # 0.0 Sodium Level 137 Potassium Level 4.8 Chloride Level 100 Carbon Dioxide Level 27 Anion Gap 15 Blood Urea Nitrogen 49 H Creatinine 2.80 H Glucose Level 271 #H Calcium Level 8.9 Magnesium Level 2.6 H Bedside Glucose 263 H 264 H Medications Current Medications Atorvastatin Calcium (Lipitor) 20 mg HS PO Last administered on 01/08/17 21:07 ; Admin Dose 20 MG; Start 01/07/17 at 21:00 Insulin Aspart (Novolog Insulin Pen) NOVOLOG *MILD* ALGORI... Q4 SC Last administered on 01/11/17 12:52; Admin Dose 4 UNIT; Start 01/07/17 at 21:00 Miscellaneous Information 1 ea NOTE XX ; Start 01/07/17 at 17:30 Glucose (Glutose) 15 gm Q15M PRN PO DECREASED GLUCOSE; Start 01/07/17 at 17:30 Glucose (Glutose) 22.5 gm Q15M PRN PO DECREASED GLUCOSE; Start 01/07/17 at 17: 30 Dextrose (D50w Syringe) 25 ml Q15M PRN IV DECREASED GLUCOSE; Start 01/07/17 at 17:30 Dextrose (D50w Syringe) 50 ml Q15M PRN IV DECREASED GLUCOSE; Start 01/07/17 at 17:30 Glucagon (Glucagen) 1 mg Q15M PRN IM DECREASED GLUCOSE; Start 01/07/17 at 17:30 Glucose (Glutose) 15 gm Q15M PRN BUCCAL DECREASED GLUCOSE; Start 01/07/17 at 17 :30 Furosemide (Lasix) 40 mg DAILY IV Last administered on 01/11/17 08:34; Admin Dose 40 MG; Start 01/07/17 at 18:00 Nifedipine (Procardia Xl) 30 mg DAILY PO Last administered on 01/11/17 08:33; Admin Dose 30 MG; Start 01/08/17 at 09:00 Lactulose (Enulose) 20 gm HS PO Last administered on 01/10/17 21:53; Admin Dose 20 GM; Start 01/07/17 at 21:00 Spironolactone (Aldactone) 50 mg DAILY PO Last administered on 01/11/17 08:33; Admin Dose 50 MG; Start 01/08/17 at 14:00 Docusate Sodium (Colace) 100 mg BID PRN PO CONSTIPATION Last administered on 01:19; Admin Dose 100 MG; Start 01/08/17 at 14:00 Azithromycin (Zithromax) 500 mg DAILY PO Last administered on 01/11/17 08:33; Admin Dose 500 MG; Start 01/08/17 at 14:00; Stop 01/11/17 at 13:59 Acetaminophen (Tylenol Tab) 500 mg Q6H PRN PO PAIN AND OR ELEVATED TEMP Last administered on 01/10/17 04:14; Admin Dose 500 MG; Start 01/08/17 at 15:30 Acetaminophen/ Hydrocodone Bitart ([place] (5/325)) 1 tab Q4H PRN PO PAIN Last administered on 01/10/17 12:46; Admin Dose 1 TAB; Start 01/09/17 at 08:30 Prednisone (Prednisone) 60 mg DAILY PO Last administered on 01/11/17 08:32; Admin Dose 60 MG; Start 01/10/17 at 17:30 Assessment/Plan Additional Assessment/Plan IMP: 1. Dyspnea--likely multifactorial, however, a component of asthma +/- ABPA present. 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 YEVGENIY 4. CKD RECS: 1. BD's 2. CS 3. CPAP EVER OSHEA MD Jan 11, 2017 12:59
[2017-01-11] MEDS ORDERED: INSULIN ASPART [NOVOLOG] 3 ML PEN SC ONE ×2 (18:00→22:00)
[2017-01-11] MEDS ORDERED: INSULIN GLARGINE [LANtus] 3 ML PEN SC SCH (20:00)
[2017-01-11] MEDS: ATORVASTATIN 20 MG TAB PO SCH (21:00)
[2017-01-11] MEDS: LACTULOSE 30ML CUP PO SCH (21:17)
[2017-01-12] VITALS (11 sets, daily range): BP systolic 122–143; BP diastolic 67–77; PULSE 84–95; RESP 20–22
[2017-01-12] MEDS: INSULIN ASPART [NOVOLOG] 3 ML PEN SC SCH ×6 (01:10→21:05)
[2017-01-12 06:47] LABS: ABNORMAL IP MESSAGE 1; EOSINOPHILS % 0.2 % (0.0-7.0); HEMATOCRIT 28.3 % (42.0-52.0); HEMOGLOBIN 8.4 g/dl (14.0-18.0); LYMPHOCYTES # 0.5 10^3/ul (0.8-2.9); LYMPHOCYTES % 8.5 % (15.0-51.0); MEAN CORPUSCULAR HEMOGLOBIN 25.3 pg (29.0-33.0); MEAN CORPUSCULAR HGB CONC 29.7 g/dl (32.0-37.0); MEAN CORPUSCULAR VOLUME 85.2 fl (82.0-101.0); MEAN PLATELET VOLUME 11.2 fl (7.4-10.4); MONOCYTE # 0.6 10^3/ul (0.3-0.9); MONOCYTES % 8.7 % (0.0-11.0); NEUTROPHIL # 5.2 10^3/ul (1.6-7.5); NEUTROPHILS % 81.8 % (39.0-77.0); PLATELET COUNT 122 10^3/UL (140-415); RED BLOOD COUNT 3.32 10^6/ul (4.70-6.10); RED CELL DISTRIBUTION WIDTH 16.5 % (11.5-14.5); WHITE BLOOD COUNT 6.4 10^3/ul (4.8-10.8)
[2017-01-12 07:27] LABS: CALCIUM 8.9 mg/dl (8.4-10.2); CREATININE 2.93 mg/dl (0.61-1.24); POTASSIUM 4.9 mmol/L (3.5-5.1)
[2017-01-12] MEDS: ALBUTEROL/IPRATROPIUM (NEB) 3 ML AMP HHN SCH ×4 (09:00→19:58)
[2017-01-12] MEDS: predniSONE 20 MG TAB PO ONE (09:00)
[2017-01-12] MEDS: SPIRONOLACTONE 50 MG TAB PO SCH (09:10)
[2017-01-12] MEDS: DOCUSATE SODIUM 100 MG CAP PO PRN (09:10)
[2017-01-12] MEDS: NIFEdipine (XL) 30 MG TAB PO SCH (09:11)
[2017-01-12] MEDS: FUROSEMIDE 40 MG INJ IV SCH (09:12)
--- NOTE | 2017-01-12 12:52 | CONS ---
Date/Time of Note Date/Time of Note DATE: 01/12/17 TIME: 12:51 Consult Date/Type/Reason Admit Date/Time Jan 07, 2017 at 10:13 Initial Consult Date 01/09/17 Type of Consultation: Pulmonary Subjective Some shortness of breath and wheezing this morning Epigastric discomfort Objective Vital Signs Date Time Temp Pulse Resp B/P Pulse Ox O2 Delivery O2 Flow Rate FiO2 01/12/17 12:00 87 01/12/17 11:48 98.6 20 139/77 98 01/12/17 08:00 Nasal Cannula 2.0 Intake and Output 01/11/17 01/11/17 01/12/17 14:59 22:59 06:59 Intake Total 500 ml Output Total 900 ml Balance -400 ml Exam GENERAL: Morbidly obese gentleman comfortable at rest VITAL SIGNS: per chart NECK: Supple. No JVD or lymphadenopathy. CARDIAC EXAM: S1, S2. No added sounds or murmurs. CHEST: Diminished air entry both bases ABDOMEN: Soft, nontender. No guarding or rebound. Obese EXTREMITIES: No cyanosis, clubbing or edema. NEUROLOGIC: Generalized weakness. No focal deficits. Results/Medications Result Diagram: 01/12/17 0601/12/17 0605 Results 24 hrs Laboratory Tests Test 01/11/17 17:16 01/11/17 21:15 01/12/17 01:07 01/12/17 05:32 Bedside Glucose 374 H 383 H 299 H 205 Test 01/12/17 06:05 01/12/17 08:07 01/12/17 09:09 01/12/17 12:23 White Blood Count 6.4 # Red Blood Count 3.32 L Hemoglobin 8.4 L Hematocrit 28.3 L Mean Corpuscular Volume 85.2 Mean Corpuscular Hemoglobin 25.3 L Mean Corpuscular Hemoglobin Concent 29.7 L Red Cell Distribution Width 16.5 H Platelet Count 122 L Mean Platelet Volume 11.2 H Neutrophils % 81.8 H Lymphocytes % 8.5 L Monocytes % 8.7 Eosinophils % 0.2 Basophils % 0.0 Nucleated Red Blood Cells % 0.0 Neutrophils # 5.2 Lymphocytes # 0.5 L Monocytes # 0.6 Eosinophils # 0.0 Basophils # 0.0 Nucleated Red Blood Cells # 0.0 Sodium Level 140 Potassium Level 4.9 Chloride Level 100 Carbon Dioxide Level 26 Anion Gap 19 H Blood Urea Nitrogen 71 H Creatinine 2.93 H Glucose Level 202 Calcium Level 8.9 Bedside Glucose 165 148 168 Medications Current Medications Atorvastatin Calcium (Lipitor) 20 mg HS PO Last administered on 01/08/17 21:07 ; Admin Dose 20 MG; Start 01/07/17 at 21:00 Insulin Aspart (Novolog Insulin Pen) NOVOLOG *MILD* ALGORI... Q4 SC Last administered on 01/12/17 09:11; Admin Dose 1 UNIT; Start 01/07/17 at 21:00 Miscellaneous Information 1 ea NOTE XX ; Start 01/07/17 at 17:30 Glucose (Glutose) 15 gm Q15M PRN PO DECREASED GLUCOSE; Start 01/07/17 at 17:30 Glucose (Glutose) 22.5 gm Q15M PRN PO DECREASED GLUCOSE; Start 01/07/17 at 17: 30 Dextrose (D50w Syringe) 25 ml Q15M PRN IV DECREASED GLUCOSE; Start 01/07/17 at 17:30 Dextrose (D50w Syringe) 50 ml Q15M PRN IV DECREASED GLUCOSE; Start 01/07/17 at 17:30 Glucagon (Glucagen) 1 mg Q15M PRN IM DECREASED GLUCOSE; Start 01/07/17 at 17:30 Glucose (Glutose) 15 gm Q15M PRN BUCCAL DECREASED GLUCOSE; Start 01/07/17 at 17 :30 Furosemide (Lasix) 40 mg DAILY IV Last administered on 01/12/17 09:12; Admin Dose 40 MG; Start 01/07/17 at 18:00 Nifedipine (Procardia Xl) 30 mg DAILY PO Last administered on 01/12/17 09:11; Admin Dose 30 MG; Start 01/08/17 at 09:00 Lactulose (Enulose) 20 gm HS PO Last administered on 01/11/17 21:17; Admin Dose 20 GM; Start 01/07/17 at 21:00 Spironolactone (Aldactone) 50 mg DAILY PO Last administered on 01/12/17 09:10; Admin Dose 50 MG; Start 01/08/17 at 14:00 Docusate Sodium (Colace) 100 mg BID PRN PO CONSTIPATION Last administered on 09:10; Admin Dose 100 MG; Start 01/08/17 at 14:00 Acetaminophen (Tylenol Tab) 500 mg Q6H PRN PO PAIN AND OR ELEVATED TEMP Last administered on 01/10/17 04:14; Admin Dose 500 MG; Start 01/08/17 at 15:30 Acetaminophen/ Hydrocodone Bitart ([place] (5/325)) 1 tab Q4H PRN PO PAIN Last administered on 01/10/17 12:46; Admin Dose 1 TAB; Start 01/09/17 at 08:30 Insulin Glargine (Lantus) 10 unit DAILY@20 SC ; Start 01/12/17 at 20:00 Assessment/Plan Chief Complaint/Hosp Course IMP: 1. Dyspnea--likely multifactorial, however, a component of asthma +/- ABPA present. 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 YEVGENIY 4. CKD RECS: 1. BD's 2. CS 3. CPAP 4. Encourage out of bed Problems: GUERITA RESENDIZ MD, [facility] Jan 12, 2017 12:52
[2017-01-12] MEDS: METHYLPREDNISOLONE 40 MG INJ IV SCH (13:04)
--- NOTE | 2017-01-12 14:35 | CONS ---
Date/Time of Note Date/Time of Note DATE: 01/12/17 TIME: 14:32 Assessment/Plan Assessment/Plan Chief Complaint/Hosp Course Assessment: - Dyspnea- more likely related to chronic liver failure/ascitices. - Chronic diastolic heart failure - on diuretc though worsening renal function, must be careful not to induce hepatorenal syndrome - h/o bradycardia: has brief hrs 40s yesterday, now 80s. h/o of previous 2:1 heart block, pause likely from YEVGENIY - DM2- per primary - HTN stable- avoid avn blockers - YEVGENIY - Obesity- wt loss recommended - HLD_ on statin Recs: - uptrending bun/cr. consider hold diuretic - avoid avn blockers - cont tele monitoring while in house Problems: Consultation Date/Type/Reason Admit Date/Time Jan 07, 2017 at 10:13 Initial Consult Date 01/09/17 Type of Consultation: Cardiology Reason for Consultation Dyspnea Referring Provider: JENY MORA MD 24 HR Interval Summary Free Text/Dictation Mr. El is a 61 y.o. man with h/o Hepatitis C, cirrhosis, DM2, htn, YEVGENIY , obesity who is admitted for dyspnea. Pt states he has had increased weight gain and worsening dyspnea with laying down or walking short distances. Pt has been admitted and started on iv diuretics. He has been monitored on telemetry and noted to have episode of sinus alfredo to 40s with stable bp, no heart block. Pt previously admitted in October at which time he was on bb, and found to have nocturnal bradycardia and pause likely due to YEVGENIY. Pt of note also has normal LVEF on echo at that visit. He denies palpitations, dizziness, fainting. he has 2+ chronic ble edema and ascites. no chest pain/pressure. Constitutional: improved Detailed Summary Eyes: no complaints ENT: no complaints Respiratory: shortness of breath Cardiovascular: no complaints Gastrointestinal: other (+ ascites) Genitourinary: no complaints Musculoskeletal: no complaints Skin: no complaints Neurologic: no complaints Psychological: no complaints Exam/Review of Systems Vital Signs Vitals Vital Signs Date Time Temp Pulse Resp B/P Pulse Ox O2 Delivery O2 Flow Rate FiO2 01/12/17 12:00 87 01/12/17 11:48 98.6 20 139/77 98 01/12/17 08:00 Nasal Cannula 2.0 Intake and Output 01/11/17 01/11/17 01/12/17 15:00 23:00 07:00 Intake Total 500 ml Output Total 900 ml Balance -400 ml Exam Constitutional: alert, obese, oriented Psych: nl mood/affect, no complaints Head: normocephalic Eyes: icteric ENMT: mucosa pink and moist, nl external ears & nose Neck: non-tender, supple Respiratory: clear to auscultation, normal air movement Cardiovascular: edema (2+ pitting to legs/thighs), nl pulses, regular rate and rhythm, systolic murmur, No bruits, No diastolic murmur, No irregular rhythm, No jugular venous distention (JVD) Gastrointestinal: ascites, distended, hepatomegaly, soft Extremities: normal pulses 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: METAL SOLDERER II-XII intact, nl mental status Results Result Diagram: 01/12/1760401/12/17604 Results 24 hrs Laboratory Tests Test 01/11/17 17:16 01/11/17 21:15 01/12/17 01:07 01/12/17 05:32 Bedside Glucose 374 H 383 H 299 H 205 Test 01/12/17 06:05 01/12/17 08:07 01/12/17 09:09 01/12/17 12:23 White Blood Count 6.4 # Red Blood Count 3.32 L Hemoglobin 8.4 L Hematocrit 28.3 L Mean Corpuscular Volume 85.2 Mean Corpuscular Hemoglobin 25.3 L Mean Corpuscular Hemoglobin Concent 29.7 L Red Cell Distribution Width 16.5 H Platelet Count 122 L Mean Platelet Volume 11.2 H Neutrophils % 81.8 H Lymphocytes % 8.5 L Monocytes % 8.7 Eosinophils % 0.2 Basophils % 0.0 Nucleated Red Blood Cells % 0.0 Neutrophils # 5.2 Lymphocytes # 0.5 L Monocytes # 0.6 Eosinophils # 0.0 Basophils # 0.0 Nucleated Red Blood Cells # 0.0 Sodium Level 140 Potassium Level 4.9 Chloride Level 100 Carbon Dioxide Level 26 Anion Gap 19 H Blood Urea Nitrogen 71 H Creatinine 2.93 H Glucose Level 202 Calcium Level 8.9 Bedside Glucose 165 148 168 Medications Medications Current Medications Atorvastatin Calcium (Lipitor) 20 mg HS PO Last administered on 01/08/17t 21:07 ; Admin Dose 20 MG; Start 01/07/17 at 21:00 Insulin Aspart (Novolog Insulin Pen) NOVOLOG *MILD* ALGORI... Q4 SC Last administered on 01/12/17 13:05; Admin Dose 1 UNIT; Start 01/07/17 at 21:00 Miscellaneous Information 1 ea NOTE XX ; Start 01/07/17 at 17:30 Glucose (Glutose) 15 gm Q15M PRN PO DECREASED GLUCOSE; Start 01/07/17 at 17:30 Glucose (Glutose) 22.5 gm Q15M PRN PO DECREASED GLUCOSE; Start 01/07/17 at 17: 30 Dextrose (D50w Syringe) 25 ml Q15M PRN IV DECREASED GLUCOSE; Start 01/07/17 at 17:30 Dextrose (D50w Syringe) 50 ml Q15M PRN IV DECREASED GLUCOSE; Start 01/07/17 at 17:30 Glucagon (Glucagen) 1 mg Q15M PRN IM DECREASED GLUCOSE; Start 01/07/17 at 17:30 Glucose (Glutose) 15 gm Q15M PRN BUCCAL DECREASED GLUCOSE; Start 01/07/17 at 17 :30 Furosemide (Lasix) 40 mg DAILY IV Last administered on 01/12/17 09:12; Admin Dose 40 MG; Start 01/07/17 at 18:00 Nifedipine (Procardia Xl) 30 mg DAILY PO Last administered on 01/12/17 09:11; Admin Dose 30 MG; Start 01/08/17 at 09:00 Lactulose (Enulose) 20 gm HS PO Last administered on 01/11/17 21:17; Admin Dose 20 GM; Start 01/07/17 at 21:00 Spironolactone (Aldactone) 50 mg DAILY PO Last administered on 01/12/17 09:10; Admin Dose 50 MG; Start 01/08/17 at 14:00 Docusate Sodium (Colace) 100 mg BID PRN PO CONSTIPATION Last administered on 09:10; Admin Dose 100 MG; Start 01/08/17 at 14:00 Acetaminophen (Tylenol Tab) 500 mg Q6H PRN PO PAIN AND OR ELEVATED TEMP Last administered on 01/10/17 04:14; Admin Dose 500 MG; Start 01/08/17 at 15:30 Acetaminophen/ Hydrocodone Bitart ([place] (5/325)) 1 tab Q4H PRN PO PAIN Last administered on 01/10/17 12:46; Admin Dose 1 TAB; Start 01/09/17 at 08:30 Methylprednisolone Sodium Succinate (Solu-Medrol) 40 mg DAILY IV Last administered on 01/12/17 13:04; Admin Dose 40 MG; Start 01/12/17 at 13:00 Insulin Glargine (Lantus) 15 unit DAILY@20 SC ; Start 01/12/17 at 20:00 Procedures Procedures ekg: NSR, non specific t wave abnl cxr/ct abd reports reviewed in emr MARISEL MEEKS Jan 12, 2017 14:35
[2017-01-12] MEDS ORDERED: INSULIN GLARGINE [LANtus] 3 ML PEN SC SCH ×2 (20:00)
[2017-01-12] MEDS: LACTULOSE 30ML CUP PO SCH (21:03)
[2017-01-12] MEDS: ATORVASTATIN 20 MG TAB PO SCH (21:03)
[2017-01-13] VITALS (13 sets, daily range): BP systolic 133–152; BP diastolic 65–85; PULSE 86–99; RESP 17–21
[2017-01-13] MEDS: INSULIN ASPART [NOVOLOG] 3 ML PEN SC SCH ×6 (01:00→21:01)
[2017-01-13] MEDS ORDERED: INSULIN ASPART [NOVOLOG] 3 ML PEN SC ONE (01:45)
[2017-01-13 06:51] LABS: ADD SCAN DIFF NO
[2017-01-13 06:53] LABS: ABNORMAL IP MESSAGE 1; HEMATOCRIT 28.3 % (42.0-52.0); HEMOGLOBIN 8.5 g/dl (14.0-18.0); LYMPHOCYTES # 0.5 10^3/ul (0.8-2.9); LYMPHOCYTES % 7.7 % (15.0-51.0); MEAN CORPUSCULAR HEMOGLOBIN 25.7 pg (29.0-33.0); MEAN CORPUSCULAR VOLUME 85.5 fl (82.0-101.0); MEAN PLATELET VOLUME 11.2 fl (7.4-10.4); MONOCYTE # 0.5 10^3/ul (0.3-0.9); MONOCYTES % 7.7 % (0.0-11.0); NEUTROPHIL # 5.5 10^3/ul (1.6-7.5); NEUTROPHILS % 84.1 % (39.0-77.0); PLATELET COUNT 142 10^3/UL (140-415); RED BLOOD COUNT 3.31 10^6/ul (4.70-6.10); RED CELL DISTRIBUTION WIDTH 16.8 % (11.5-14.5); WHITE BLOOD COUNT 6.5 10^3/ul (4.8-10.8)
[2017-01-13 07:15] LABS: CREATININE 3.12 mg/dl (0.61-1.24); POTASSIUM 5.3 mmol/L (3.5-5.1)
[2017-01-13] MEDS: METHYLPREDNISOLONE 40 MG INJ IV SCH (08:44)
[2017-01-13] MEDS: SPIRONOLACTONE 50 MG TAB PO SCH (08:44)
[2017-01-13] MEDS: NIFEdipine (XL) 30 MG TAB PO SCH (08:45)
[2017-01-13] MEDS: ALBUTEROL/IPRATROPIUM (NEB) 3 ML AMP HHN SCH ×4 (08:54→20:10)
--- NOTE | 2017-01-13 10:07 | CONS ---
Date/Time of Note Date/Time of Note DATE: 01/13/17 TIME: 10:07 Assessment/Plan Assessment/Plan Additional Assessment/Plan Assessment: - Dyspnea- more likely related to chronic liver failure/ascites as well as morbid obesity - Probable OHS along with YEVGENIY. - Chronic diastolic heart failure - on diuretic though worsening renal function , must be careful not to induce hepatorenal syndrome - h/o bradycardia: NO events in last 24 hours. has brief hrs 40s yesterday, now 80s. h/o of previous 2:1 heart block, pause likely from YEVGENIY - DM2- per primary - HTN stable- avoid avn blockers - Obesity- wt loss recommended - HLD_ on statin - Hyperkalemia- on Aldactone Recs: - uptrending bun/cr. hold diuretic - avoid avn blockers - Decrease aldactone - cont tele monitoring while in house Consultation Date/Type/Reason Admit Date/Time Jan 07, 2017 at 10:13 Initial Consult Date 01/09/17 Type of Consultation: Cardiology Referring Provider: JENY MORA MD 24 HR Interval Summary Free Text/Dictation No new syx. Pt still with SOB. No orthopnea. No palpitations. No dizziness Exam/Review of Systems Vital Signs Vitals Vital Signs Date Time Temp Pulse Resp B/P Pulse Ox O2 Delivery O2 Flow Rate FiO2 01/13/17 08:55 98 22 98 Nasal Cannula 2.0 01/13/17 07:32 98.3 140/72 Intake and Output 01/12/17 01/12/17 01/13/17 15:00 23:00 07:00 Intake Total 800 ml 200 ml Output Total 900 ml 500 ml Balance -100 ml -300 ml Exam Constitutional: alert, obese, oriented Psych: no complaints Eyes: nl conjunctiva ENMT: nl external ears & nose Neck: jvd (can not assess ), non-tender Respiratory: clear to auscultation Cardiovascular: nl pulses, regular rate and rhythm Gastrointestinal: nl liver, spleen, non-tender, soft Musculoskeletal: nl extremities to inspection Extremities: normal pulses Results Result Diagram: 01/13/17 0607 01/13/17 0607 Results 24 hrs Laboratory Tests Test 01/12/17 12:23 01/12/17 17:14 01/12/17 21:01 01/13/17 00:51 Bedside Glucose 168 243 H 310 H 357 H Test 01/13/17 05:17 01/13/17 06:07 01/13/17 08:17 Bedside Glucose 323 H 231 H White Blood Count 6.5 Red Blood Count 3.31 L Hemoglobin 8.5 L Hematocrit 28.3 L Mean Corpuscular Volume 85.5 Mean Corpuscular Hemoglobin 25.7 L Mean Corpuscular Hemoglobin Concent 30.0 L Red Cell Distribution Width 16.8 H Platelet Count 142 Mean Platelet Volume 11.2 H Neutrophils % 84.1 H Lymphocytes % 7.7 L Monocytes % 7.7 Eosinophils % 0.0 Basophils % 0.0 Nucleated Red Blood Cells % 0.0 Neutrophils # 5.5 Lymphocytes # 0.5 L Monocytes # 0.5 Eosinophils # 0.0 Basophils # 0.0 Nucleated Red Blood Cells # 0.0 Sodium Level 139 Potassium Level 5.3 H Chloride Level 97 Carbon Dioxide Level 26 Anion Gap 21 H Blood Urea Nitrogen 82 H Creatinine 3.12 H Glucose Level 289 H Calcium Level 9.0 Medications Medications Current Medications Atorvastatin Calcium (Lipitor) 20 mg HS PO Last administered on 01/12/17 21:03 ; Admin Dose 20 MG; Start 01/07/17 at 21:00 Insulin Aspart (Novolog Insulin Pen) NOVOLOG *MILD* ALGORI... Q4 SC Last administered on 01/13/17 08:53; Admin Dose 3 UNIT; Start 01/07/17 at 21:00 Miscellaneous Information 1 ea NOTE XX ; Start 01/07/17 at 17:30 Glucose (Glutose) 15 gm Q15M PRN PO DECREASED GLUCOSE; Start 01/07/17 at 17:30 Glucose (Glutose) 22.5 gm Q15M PRN PO DECREASED GLUCOSE; Start 01/07/17 at 17: 30 Dextrose (D50w Syringe) 25 ml Q15M PRN IV DECREASED GLUCOSE; Start 01/07/17 at 17:30 Dextrose (D50w Syringe) 50 ml Q15M PRN IV DECREASED GLUCOSE; Start 01/07/17 at 17:30 Glucagon (Glucagen) 1 mg Q15M PRN IM DECREASED GLUCOSE; Start 01/07/17 at 17:30 Glucose (Glutose) 15 gm Q15M PRN BUCCAL DECREASED GLUCOSE; Start 01/07/17 at 17 :30 Nifedipine (Procardia Xl) 30 mg DAILY PO Last administered on 01/13/17 08:45; Admin Dose 30 MG; Start 01/08/17 at 09:00 Lactulose (Enulose) 20 gm HS PO Last administered on 01/12/17 21:03; Admin Dose 20 GM; Start 01/07/17 at 21:00 Spironolactone (Aldactone) 50 mg DAILY PO Last administered on 01/13/17 08:44; Admin Dose 50 MG; Start 01/08/17 at 14:00 Docusate Sodium (Colace) 100 mg BID PRN PO CONSTIPATION Last administered on 09:10; Admin Dose 100 MG; Start 01/08/17 at 14:00 Acetaminophen (Tylenol Tab) 500 mg Q6H PRN PO PAIN AND OR ELEVATED TEMP Last administered on 01/10/17 04:14; Admin Dose 500 MG; Start 01/08/17 at 15:30 Acetaminophen/ Hydrocodone Bitart ([place] (5/325)) 1 tab Q4H PRN PO PAIN Last administered on 01/10/17 12:46; Admin Dose 1 TAB; Start 01/09/17 at 08:30 Methylprednisolone Sodium Succinate (Solu-Medrol) 40 mg DAILY IV Last administered on 01/13/17 08:44; Admin Dose 40 MG; Start 01/12/17 at 13:00 Insulin Glargine (Lantus) 15 unit DAILY@20 SC Last administered on 01/12/17 21: 07; Admin Dose 15 UNIT; Start 01/12/17 at 20:00 SUMIT CHAN MD Jan 13, 2017 10:07
--- NOTE | 2017-01-13 13:33 | CONS ---
Date/Time of Note Date/Time of Note DATE: 01/13/17 TIME: 13:31 Consult Date/Type/Reason Admit Date/Time Jan 07, 2017 at 10:13 Initial Consult Date 01/09/17 Type of Consultation: Pulmonary Ordering Provider: JENY MORA MD Subjective Patient still has mild shortness of breath. Objective Vital Signs Date Time Temp Pulse Resp B/P Pulse Ox O2 Delivery O2 Flow Rate FiO2 01/13/17 12:18 95 01/13/17 11:24 97.8 18 142/78 93 01/13/17 08:55 Nasal Cannula 2.0 Intake and Output 01/12/17 01/12/17 01/13/17 15:00 23:00 07:00 Intake Total 800 ml 200 ml Output Total 900 ml 500 ml Balance -100 ml -300 ml Exam GENERAL: Morbidly obese gentleman comfortable at rest VITAL SIGNS: per chart NECK: Supple. No JVD or lymphadenopathy. CARDIAC EXAM: S1, S2. No added sounds or murmurs. CHEST: Diminished air entry both bases ABDOMEN: Soft, nontender. No guarding or rebound. Obese EXTREMITIES: No cyanosis, clubbing or edema. NEUROLOGIC: Generalized weakness. No focal deficits. Results/Medications Result Diagram: 01/13/17 0607 01/13/17 0607 Results 24 hrs Laboratory Tests Test 01/12/17 17:14 01/12/17 21:01 01/13/17 00:51 01/13/17 05:17 Bedside Glucose 243 H 310 H 357 H 323 H Test 01/13/17 06:07 01/13/17 08:17 01/13/17 12:39 White Blood Count 6.5 Red Blood Count 3.31 L Hemoglobin 8.5 L Hematocrit 28.3 L Mean Corpuscular Volume 85.5 Mean Corpuscular Hemoglobin 25.7 L Mean Corpuscular Hemoglobin Concent 30.0 L Red Cell Distribution Width 16.8 H Platelet Count 142 Mean Platelet Volume 11.2 H Neutrophils % 84.1 H Lymphocytes % 7.7 L Monocytes % 7.7 Eosinophils % 0.0 Basophils % 0.0 Nucleated Red Blood Cells % 0.0 Neutrophils # 5.5 Lymphocytes # 0.5 L Monocytes # 0.5 Eosinophils # 0.0 Basophils # 0.0 Nucleated Red Blood Cells # 0.0 Sodium Level 139 Potassium Level 5.3 H Chloride Level 97 Carbon Dioxide Level 26 Anion Gap 21 H Blood Urea Nitrogen 82 H Creatinine 3.12 H Glucose Level 289 H Calcium Level 9.0 Bedside Glucose 231 H 214 Medications Current Medications Atorvastatin Calcium (Lipitor) 20 mg HS PO Last administered on 01/12/17 21:03 ; Admin Dose 20 MG; Start 01/07/17 at 21:00 Insulin Aspart (Novolog Insulin Pen) NOVOLOG *MILD* ALGORI... Q4 SC Last administered on 01/13/17 12:57; Admin Dose 2 UNIT; Start 01/07/17 at 21:00 Miscellaneous Information 1 ea NOTE XX ; Start 01/07/17 at 17:30 Glucose (Glutose) 15 gm Q15M PRN PO DECREASED GLUCOSE; Start 01/07/17 at 17:30 Glucose (Glutose) 22.5 gm Q15M PRN PO DECREASED GLUCOSE; Start 01/07/17 at 17: 30 Dextrose (D50w Syringe) 25 ml Q15M PRN IV DECREASED GLUCOSE; Start 01/07/17 at 17:30 Dextrose (D50w Syringe) 50 ml Q15M PRN IV DECREASED GLUCOSE; Start 01/07/17 at 17:30 Glucagon (Glucagen) 1 mg Q15M PRN IM DECREASED GLUCOSE; Start 01/07/17 at 17:30 Glucose (Glutose) 15 gm Q15M PRN BUCCAL DECREASED GLUCOSE; Start 01/07/17 at 17 :30 Nifedipine (Procardia Xl) 30 mg DAILY PO Last administered on 01/13/17 08:45; Admin Dose 30 MG; Start 01/08/17 at 09:00 Lactulose (Enulose) 20 gm HS PO Last administered on 01/12/17 21:03; Admin Dose 20 GM; Start 01/07/17 at 21:00 Docusate Sodium (Colace) 100 mg BID PRN PO CONSTIPATION Last administered on 09:10; Admin Dose 100 MG; Start 01/08/17 at 14:00 Acetaminophen (Tylenol Tab) 500 mg Q6H PRN PO PAIN AND OR ELEVATED TEMP Last administered on 01/10/17 04:14; Admin Dose 500 MG; Start 01/08/17 at 15:30 Acetaminophen/ Hydrocodone Bitart ([place] (5/325)) 1 tab Q4H PRN PO PAIN Last administered on 01/10/17 12:46; Admin Dose 1 TAB; Start 01/09/17 at 08:30 Methylprednisolone Sodium Succinate (Solu-Medrol) 40 mg DAILY IV Last administered on 01/13/17 08:44; Admin Dose 40 MG; Start 01/12/17 at 13:00 Insulin Glargine (Lantus) 15 unit DAILY@20 SC Last administered on 01/12/17 21: 07; Admin Dose 15 UNIT; Start 01/12/17 at 20:00 Assessment/Plan Chief Complaint/Hosp Course IMP: 1. Dyspnea--likely multifactorial, however, a component of asthma +/- ABPA present. + high IgE and + IgG for aspergillus and mucoid impaction on prior CT probable significant component secondary to obesity and possible underlying ascites from cirrhosis. 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 YEVGENIY 4. CKD RECS: 1. BD's 2. CS 3. CPAP 4. Encourage out of bed 5. Agree with decreasing diuretics given renal insufficiency and underlying liver disease. Problems: GUERITA RESENDIZ MD, [facility] Jan 13, 2017 13:32
[2017-01-13] MEDS: LACTULOSE 30ML CUP PO SCH (20:55)
[2017-01-13] MEDS: ATORVASTATIN 20 MG TAB PO SCH (20:55)
[2017-01-13] MEDS: INSULIN GLARGINE [LANtus] 3 ML PEN SC SCH (21:02)
--- NOTE | 2017-01-13 23:06 | CONS ---
Date/Time of Note Date/Time of Note DATE: 01/13/17 TIME: 23:00 Assessment/Plan Assessment/Plan Chief Complaint/Hosp Course 61-year-old male admitted for shortness of breath. Patient is a history of hepatitis C cirrhosis of liver, morbid obesity obstructive sleep apnea, diabetes mellitus and hypertension. Recent was brought to the emergency room for abdominal distention and shortness of breath. He was slightly nauseous. No GI bleeding no chest pain no or IT CONSULTANT problem no fever no chills. Problems: Additional Assessment/Plan Additional Assessment/Plan 1. Shortness of breath multifactorial 2. Morbid obesity 3. Cirrhosis of liver with portal hypertension 4. Mild ascites 5. Diabetes med 6. Hypertension 7. Renal failure Plan P.o. fluid restriction 1000 cc a day Diuretics Low-sodium diet Monitor BUN and creatinine closely Weight loss Supplemental oxygen weight loss will improve most of his problems Consultation Date/Type/Reason Admit Date/Time Jan 07, 2017 at 10:13 Initial Consult Date 01/09/17 Type of Consultation: Pulmonary Referring Provider: JENY MORA MD Exam/Review of Systems Vital Signs Vitals Vital Signs Date Time Temp Pulse Resp B/P Pulse Ox O2 Delivery O2 Flow Rate FiO2 01/13/17 20:44 Nasal Cannula 2.0 01/13/17 20:10 95 22 97 01/13/17 19:40 97.6 136/73 Intake and Output 01/12/17 01/12/17 01/13/17 15:00 23:00 07:00 Intake Total 800 ml 200 ml Output Total 900 ml 500 ml Balance -100 ml -300 ml Exam Constitutional: alert, oriented, well developed Psych: nl mood/affect, no complaints ENMT: nl external ears & nose, nl lips & teeth, nl nasal mucosa & septum Neck: non-tender, supple Respiratory: diminished breath sounds Cardiovascular: nl pulses, regular rate and rhythm Gastrointestinal: nl liver, spleen, non-tender, soft Extremities: edema 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: IT CONSULTANT II-XII intact, nl mental status, nl speech, nl strength Results Result Diagram: 01/13/17 0607 01/13/17 0607 Results 24 hrs Laboratory Tests Test 01/13/17 00:51 01/13/17 05:17 01/13/17 06:07 01/13/17 08:17 Bedside Glucose 357 H 323 H 231 H White Blood Count 6.5 Red Blood Count 3.31 L Hemoglobin 8.5 L Hematocrit 28.3 L Mean Corpuscular Volume 85.5 Mean Corpuscular Hemoglobin 25.7 L Mean Corpuscular Hemoglobin Concent 30.0 L Red Cell Distribution Width 16.8 H Platelet Count 142 Mean Platelet Volume 11.2 H Neutrophils % 84.1 H Lymphocytes % 7.7 L Monocytes % 7.7 Eosinophils % 0.0 Basophils % 0.0 Nucleated Red Blood Cells % 0.0 Neutrophils # 5.5 Lymphocytes # 0.5 L Monocytes # 0.5 Eosinophils # 0.0 Basophils # 0.0 Nucleated Red Blood Cells # 0.0 Sodium Level 139 Potassium Level 5.3 H Chloride Level 97 Carbon Dioxide Level 26 Anion Gap 21 H Blood Urea Nitrogen 82 H Creatinine 3.12 H Glucose Level 289 H Calcium Level 9.0 Test 01/13/17 12:39 01/13/17 17:04 01/13/17 20:33 Bedside Glucose 214 249 H 308 H Medications Medications Current Medications Atorvastatin Calcium (Lipitor) 20 mg HS PO Last administered on 01/12/17 21:03 ; Admin Dose 20 MG; Start 01/07/17 at 21:00 Insulin Aspart (Novolog Insulin Pen) NOVOLOG *MILD* ALGORI... Q4 SC Last administered on 01/13/17 21:01; Admin Dose 5 UNIT; Start 01/07/17 at 21:00 Miscellaneous Information 1 ea NOTE XX ; Start 01/07/17 at 17:30 Glucose (Glutose) 15 gm Q15M PRN PO DECREASED GLUCOSE; Start 01/07/17 at 17:30 Glucose (Glutose) 22.5 gm Q15M PRN PO DECREASED GLUCOSE; Start 01/07/17 at 17: 30 Dextrose (D50w Syringe) 25 ml Q15M PRN IV DECREASED GLUCOSE; Start 01/07/17 at 17:30 Dextrose (D50w Syringe) 50 ml Q15M PRN IV DECREASED GLUCOSE; Start 01/07/17 at 17:30 Glucagon (Glucagen) 1 mg Q15M PRN IM DECREASED GLUCOSE; Start 01/07/17 at 17:30 Glucose (Glutose) 15 gm Q15M PRN BUCCAL DECREASED GLUCOSE; Start 01/07/17 at 17 :30 Nifedipine (Procardia Xl) 30 mg DAILY PO Last administered on 01/13/17 08:45; Admin Dose 30 MG; Start 01/08/17 at 09:00 Lactulose (Enulose) 20 gm HS PO Last administered on 01/13/17 20:55; Admin Dose 20 GM; Start 01/07/17 at 21:00 Docusate Sodium (Colace) 100 mg BID PRN PO CONSTIPATION Last administered on 09:10; Admin Dose 100 MG; Start 01/08/17 at 14:00 Acetaminophen (Tylenol Tab) 500 mg Q6H PRN PO PAIN AND OR ELEVATED TEMP Last administered on 01/10/17 04:14; Admin Dose 500 MG; Start 01/08/17 at 15:30 Acetaminophen/ Hydrocodone Bitart ([place] (5/325)) 1 tab Q4H PRN PO PAIN Last administered on 01/10/17 12:46; Admin Dose 1 TAB; Start 01/09/17 at 08:30 Methylprednisolone Sodium Succinate (Solu-Medrol) 40 mg DAILY IV Last administered on 01/13/17 08:44; Admin Dose 40 MG; Start 01/12/17 at 13:00 Insulin Glargine (Lantus) 20 unit DAILY@20 SC Last administered on 01/13/17 21: 02; Admin Dose 20 UNIT; Start 01/13/17 at 20:00 STUART STANLEY MD Jan 13, 2017 23:06
[2017-01-14] VITALS (14 sets, daily range): BP systolic 130–158; BP diastolic 74–85; PULSE 88–96; RESP 17–21
[2017-01-14] MEDS: INSULIN ASPART [NOVOLOG] 3 ML PEN SC SCH ×6 (01:11→20:53)
[2017-01-14 07:32] LABS: ADD SCAN DIFF NO
[2017-01-14 07:38] LABS: EOSINOPHILS % 0.5 % (0.0-7.0); HEMATOCRIT 26.9 % (42.0-52.0); HEMOGLOBIN 8.4 g/dl (14.0-18.0); LYMPHOCYTES # 0.6 10^3/ul (0.8-2.9); LYMPHOCYTES % 10.1 % (15.0-51.0); MEAN CORPUSCULAR HEMOGLOBIN 26.7 pg (29.0-33.0); MEAN CORPUSCULAR HGB CONC 31.2 g/dl (32.0-37.0); MEAN CORPUSCULAR VOLUME 85.4 fl (82.0-101.0); MEAN PLATELET VOLUME 11.4 fl (7.4-10.4); MONOCYTE # 0.7 10^3/ul (0.3-0.9); MONOCYTES % 11.6 % (0.0-11.0); NEUTROPHIL # 4.7 10^3/ul (1.6-7.5); NEUTROPHILS % 77.1 % (39.0-77.0); PLATELET COUNT 127 10^3/UL (140-415); RED BLOOD COUNT 3.15 10^6/ul (4.70-6.10); RED CELL DISTRIBUTION WIDTH 16.8 % (11.5-14.5); WHITE BLOOD COUNT 6.1 10^3/ul (4.8-10.8)
[2017-01-14 08:00] LABS: CALCIUM 9.1 mg/dl (8.4-10.2); CREATININE 3.14 mg/dl (0.61-1.24); POTASSIUM 4.8 mmol/L (3.5-5.1)
[2017-01-14] MEDS: METHYLPREDNISOLONE 40 MG INJ IV SCH (08:53)
[2017-01-14] MEDS: NIFEdipine (XL) 30 MG TAB PO SCH (08:54)
[2017-01-14] MEDS: ALBUTEROL/IPRATROPIUM (NEB) 3 ML AMP HHN SCH ×4 (08:58→20:37)
[2017-01-14] MEDS ORDERED: SPIRONOLACTONE 50 MG TAB PO SCH (09:00)
--- NOTE | 2017-01-14 12:42 | CONS ---
Date/Time of Note Date/Time of Note DATE: 01/14/17 TIME: 12:38 Assessment/Plan Assessment/Plan Chief Complaint/Hosp Course 61-year-old male admitted for shortness of breath. Patient is a history of hepatitis C cirrhosis of liver, morbid obesity obstructive sleep apnea, diabetes mellitus and hypertension. Recent was brought to the emergency room for abdominal distention and shortness of breath. He was slightly nauseous. No GI bleeding no chest pain no or MANAGER PSYCHIATRY problem no fever no chills. Problems: Additional Assessment/Plan Additional Assessment/Plan Additional Assessment/Plan 1. Shortness of breath multifactorial 2. Morbid obesity 3. Cirrhosis of liver with portal hypertension 4. Mild ascites 5. Diabetes 6. Hypertension 7. Renal failure Plan P.o. fluid restriction 1000 cc a day Diuretics Low-sodium diet Monitor BUN and creatinine closely Weight loss Supplemental oxygen On long-term patient would definitely benefit from obesity surgery Consultation Date/Type/Reason Admit Date/Time Jan 07, 2017 at 10:13 Initial Consult Date 01/09/17 Type of Consultation: Pulmonary Referring Provider: JENY MORA MD 24 HR Interval Summary Free Text/Dictation Still patient complains of swelling in the lower extremity and abdominal distention Constitutional: improved Exam/Review of Systems Vital Signs Vitals Vital Signs Date Time Temp Pulse Resp B/P Pulse Ox O2 Delivery O2 Flow Rate FiO2 01/14/17 12:26 88 01/14/17 12:05 94 2.0 01/14/17 12:05 20 Nasal Cannula 01/14/17 11:39 98.3 133/76 Intake and Output 01/13/17 01/13/17 01/14/17 15:00 23:00 07:00 Intake Total 500 ml 450 ml Output Total 850 ml 550 ml Balance -350 ml -100 ml Exam Respiratory: clear to auscultation, normal air movement Cardiovascular: nl pulses, regular rate and rhythm Gastrointestinal: nl liver, spleen, non-tender, soft Extremities: edema 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: MANAGER PSYCHIATRY II-XII intact, nl mental status, nl speech, nl strength Results Result Diagram: 01/14/17 0630 01/14/17 0630 Results 24 hrs Laboratory Tests Test 01/13/17 12:39 01/13/17 17:04 01/13/17 20:33 01/14/17 01:04 Bedside Glucose 214 249 H 308 H 277 H Test 01/14/17 05:08 01/14/17 06:30 01/14/17 08:10 01/14/17 12:07 Bedside Glucose 262 H 234 H 225 H White Blood Count 6.1 Red Blood Count 3.15 L Hemoglobin 8.4 L Hematocrit 26.9 L Mean Corpuscular Volume 85.4 Mean Corpuscular Hemoglobin 26.7 L Mean Corpuscular Hemoglobin Concent 31.2 L Red Cell Distribution Width 16.8 H Platelet Count 127 L Mean Platelet Volume 11.4 H Neutrophils % 77.1 H Lymphocytes % 10.1 L Monocytes % 11.6 H Eosinophils % 0.5 Basophils % 0.0 Nucleated Red Blood Cells % 0.0 Neutrophils # 4.7 Lymphocytes # 0.6 L Monocytes # 0.7 Eosinophils # 0.0 Basophils # 0.0 Nucleated Red Blood Cells # 0.0 Sodium Level 140 Potassium Level 4.8 Chloride Level 99 Carbon Dioxide Level 26 Anion Gap 20 H Blood Urea Nitrogen 91 H Creatinine 3.14 H Glucose Level 225 H Calcium Level 9.1 Magnesium Level 3.0 H Medications Medications Current Medications Atorvastatin Calcium (Lipitor) 20 mg HS PO Last administered on 01/12/17 21:03 ; Admin Dose 20 MG; Start 01/07/17 at 21:00 Insulin Aspart (Novolog Insulin Pen) NOVOLOG *MILD* ALGORI... Q4 SC Last administered on 01/14/17 12:13; Admin Dose 3 UNIT; Start 01/07/17 at 21:00 Miscellaneous Information 1 ea NOTE XX ; Start 01/07/17 at 17:30 Glucose (Glutose) 15 gm Q15M PRN PO DECREASED GLUCOSE; Start 01/07/17 at 17:30 Glucose (Glutose) 22.5 gm Q15M PRN PO DECREASED GLUCOSE; Start 01/07/17 at 17: 30 Dextrose (D50w Syringe) 25 ml Q15M PRN IV DECREASED GLUCOSE; Start 01/07/17 at 17:30 Dextrose (D50w Syringe) 50 ml Q15M PRN IV DECREASED GLUCOSE; Start 01/07/17 at 17:30 Glucagon (Glucagen) 1 mg Q15M PRN IM DECREASED GLUCOSE; Start 01/07/17 at 17:30 Glucose (Glutose) 15 gm Q15M PRN BUCCAL DECREASED GLUCOSE; Start 01/07/17 at 17 :30 Nifedipine (Procardia Xl) 30 mg DAILY PO Last administered on 01/14/17 08:54; Admin Dose 30 MG; Start 01/08/17 at 09:00 Lactulose (Enulose) 20 gm HS PO Last administered on 01/13/17 20:55; Admin Dose 20 GM; Start 01/07/17 at 21:00 Docusate Sodium (Colace) 100 mg BID PRN PO CONSTIPATION Last administered on 09:10; Admin Dose 100 MG; Start 01/08/17 at 14:00 Acetaminophen (Tylenol Tab) 500 mg Q6H PRN PO PAIN AND OR ELEVATED TEMP Last administered on 01/10/17 04:14; Admin Dose 500 MG; Start 01/08/17 at 15:30 Acetaminophen/ Hydrocodone Bitart ([place] (5/325)) 1 tab Q4H PRN PO PAIN Last administered on 01/10/17 12:46; Admin Dose 1 TAB; Start 01/09/17 at 08:30 Methylprednisolone Sodium Succinate (Solu-Medrol) 40 mg DAILY IV Last administered on 01/14/17 08:53; Admin Dose 40 MG; Start 01/12/17 at 13:00 Insulin Glargine (Lantus) 20 unit DAILY@20 SC Last administered on 01/13/17 21: 02; Admin Dose 20 UNIT; Start 01/13/17 at 20:00 STUART STANLEY MD Jan 14, 2017 12:42
--- NOTE | 2017-01-14 15:11 | CONS ---
Date/Time of Note Date/Time of Note DATE: 01/14/17 TIME: 15:11 Consult Date/Type/Reason Admit Date/Time Jan 07, 2017 at 10:13 Initial Consult Date 01/09/17 Type of Consultation: Pulmonary Ordering Provider: JENY MORA MD Subjective No changes continues to complain of abdominal distention and discomfort Objective Vital Signs Date Time Temp Pulse Resp B/P Pulse Ox O2 Delivery O2 Flow Rate FiO2 01/14/17 14:03 89 01/14/17 14:00 Nasal Cannula 2.0 01/14/17 13:31 98.1 18 140/77 92 Intake and Output 01/13/17 01/13/17 01/14/17 15:00 23:00 07:00 Intake Total 500 ml 450 ml Output Total 850 ml 550 ml Balance -350 ml -100 ml Exam GENERAL: Morbidly obese gentleman comfortable at rest VITAL SIGNS: per chart NECK: Supple. No JVD or lymphadenopathy. CARDIAC EXAM: S1, S2. No added sounds or murmurs. CHEST: Diminished air entry both bases ABDOMEN: Soft, nontender. No guarding or rebound. Obese EXTREMITIES: No cyanosis, clubbing or edema. NEUROLOGIC: Generalized weakness. No focal deficits. Results/Medications Result Diagram: 01/14/17 0630 01/14/17 0630 Results 24 hrs Laboratory Tests Test 01/13/17 17:04 01/13/17 20:33 01/14/17 01:04 01/14/17 05:08 Bedside Glucose 249 H 308 H 277 H 262 H Test 01/14/17 06:30 01/14/17 08:10 01/14/17 12:07 White Blood Count 6.1 Red Blood Count 3.15 L Hemoglobin 8.4 L Hematocrit 26.9 L Mean Corpuscular Volume 85.4 Mean Corpuscular Hemoglobin 26.7 L Mean Corpuscular Hemoglobin Concent 31.2 L Red Cell Distribution Width 16.8 H Platelet Count 127 L Mean Platelet Volume 11.4 H Neutrophils % 77.1 H Lymphocytes % 10.1 L Monocytes % 11.6 H Eosinophils % 0.5 Basophils % 0.0 Nucleated Red Blood Cells % 0.0 Neutrophils # 4.7 Lymphocytes # 0.6 L Monocytes # 0.7 Eosinophils # 0.0 Basophils # 0.0 Nucleated Red Blood Cells # 0.0 Sodium Level 140 Potassium Level 4.8 Chloride Level 99 Carbon Dioxide Level 26 Anion Gap 20 H Blood Urea Nitrogen 91 H Creatinine 3.14 H Glucose Level 225 H Calcium Level 9.1 Magnesium Level 3.0 H Bedside Glucose 234 H 225 H Medications Current Medications Atorvastatin Calcium (Lipitor) 20 mg HS PO Last administered on 01/12/17 21:03 ; Admin Dose 20 MG; Start 01/07/17 at 21:00 Miscellaneous Information 1 ea NOTE XX ; Start 01/07/17 at 17:30 Glucose (Glutose) 15 gm Q15M PRN PO DECREASED GLUCOSE; Start 01/07/17 at 17:30 Glucose (Glutose) 22.5 gm Q15M PRN PO DECREASED GLUCOSE; Start 01/07/17 at 17: 30 Dextrose (D50w Syringe) 25 ml Q15M PRN IV DECREASED GLUCOSE; Start 01/07/17 at 17:30 Dextrose (D50w Syringe) 50 ml Q15M PRN IV DECREASED GLUCOSE; Start 01/07/17 at 17:30 Glucagon (Glucagen) 1 mg Q15M PRN IM DECREASED GLUCOSE; Start 01/07/17 at 17:30 Glucose (Glutose) 15 gm Q15M PRN BUCCAL DECREASED GLUCOSE; Start 01/07/17 at 17 :30 Nifedipine (Procardia Xl) 30 mg DAILY PO Last administered on 01/14/17 08:54; Admin Dose 30 MG; Start 01/08/17 at 09:00 Lactulose (Enulose) 20 gm HS PO Last administered on 01/13/17 20:55; Admin Dose 20 GM; Start 01/07/17 at 21:00 Docusate Sodium (Colace) 100 mg BID PRN PO CONSTIPATION Last administered on 09:10; Admin Dose 100 MG; Start 01/08/17 at 14:00 Acetaminophen (Tylenol Tab) 500 mg Q6H PRN PO PAIN AND OR ELEVATED TEMP Last administered on 01/10/17 04:14; Admin Dose 500 MG; Start 01/08/17 at 15:30 Acetaminophen/ Hydrocodone Bitart ([place] (5/325)) 1 tab Q4H PRN PO PAIN Last administered on 01/10/17 12:46; Admin Dose 1 TAB; Start 01/09/17 at 08:30 Methylprednisolone Sodium Succinate (Solu-Medrol) 40 mg DAILY IV Last administered on 01/14/17 08:53; Admin Dose 40 MG; Start 01/12/17 at 13:00 Insulin Glargine (Lantus) 20 unit DAILY@20 SC Last administered on 01/13/17 21: 02; Admin Dose 20 UNIT; Start 01/13/17 at 20:00 Diagnostic Test (Pha) (Accu-Chek) 1 ea 02 XX ; Start 01/15/17 at 02:00 Assessment/Plan Chief Complaint/Hosp Course IMP: 1. Dyspnea--likely multifactorial, however, a component of asthma +/- ABPA present. + high IgE and + IgG for aspergillus and mucoid impaction on prior CT probable significant component secondary to obesity and possible underlying ascites from cirrhosis. 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 YEVGENIY 4. CKD RECS: 1. BD's 2. CS 3. CPAP as tolerated 4. Encourage out of bed 5. Agree with decreasing diuretics given renal insufficiency and underlying liver disease. Problems: GUERITA RESENDIZ MD, [facility] Jan 14, 2017 15:11
[2017-01-14] MEDS: INSULIN GLARGINE [LANtus] 3 ML PEN SC SCH (20:53)
[2017-01-14] MEDS: LACTULOSE 30ML CUP PO SCH (20:56)
[2017-01-14] MEDS: ATORVASTATIN 20 MG TAB PO SCH (20:57)
[2017-01-14] MEDS: HEPARIN 5,000 UNIT/0.5 ML VIAL SC SCH (21:00)
[2017-01-14] MEDS ORDERED: INSULIN ASPART [NOVOLOG] 3 ML PEN SC ONE (21:30)
[2017-01-15] VITALS (12 sets, daily range): BP systolic 130–148; BP diastolic 68–81; PULSE 84–93; RESP 19–22
[2017-01-15] MEDS: ACCU-CHEK XX SCH (02:02)
[2017-01-15 07:43] LABS: ADD SCAN DIFF NO
[2017-01-15 07:54] LABS: EOSINOPHILS % 0.4 % (0.0-7.0); HEMATOCRIT 28.9 % (42.0-52.0); HEMOGLOBIN 8.8 g/dl (14.0-18.0); LYMPHOCYTES # 0.8 10^3/ul (0.8-2.9); LYMPHOCYTES % 10.4 % (15.0-51.0); MEAN CORPUSCULAR HGB CONC 30.4 g/dl (32.0-37.0); MEAN CORPUSCULAR VOLUME 85.3 fl (82.0-101.0); MEAN PLATELET VOLUME 11.2 fl (7.4-10.4); MONOCYTE # 0.8 10^3/ul (0.3-0.9); MONOCYTES % 10.7 % (0.0-11.0); NEUTROPHIL # 5.6 10^3/ul (1.6-7.5); NEUTROPHILS % 77.8 % (39.0-77.0); PLATELET COUNT 159 10^3/UL (140-415); RED BLOOD COUNT 3.39 10^6/ul (4.70-6.10); RED CELL DISTRIBUTION WIDTH 16.8 % (11.5-14.5); WHITE BLOOD COUNT 7.2 10^3/ul (4.8-10.8)
[2017-01-15 08:23] LABS: CALCIUM 9.1 mg/dl (8.4-10.2); CREATININE 3.07 mg/dl (0.61-1.24); MAGNESIUM 3.1 mg/dl (1.7-2.5); POTASSIUM 4.9 mmol/L (3.5-5.1)
[2017-01-15] MEDS: INSULIN ASPART [NOVOLOG] 3 ML PEN SC SCH ×4 (08:30→21:14)
[2017-01-15] MEDS: ALBUTEROL/IPRATROPIUM (NEB) 3 ML AMP HHN SCH ×4 (08:46→20:37)
[2017-01-15] MEDS: NIFEdipine (XL) 30 MG TAB PO SCH (09:09)
[2017-01-15] MEDS: METHYLPREDNISOLONE 40 MG INJ IV SCH (09:09)
[2017-01-15] MEDS: HEPARIN 5,000 UNIT/0.5 ML VIAL SC SCH ×2 (09:12→21:26)
--- NOTE | 2017-01-15 13:26 | CONS ---
Date/Time of Note Date/Time of Note DATE: 01/15/17 TIME: 13:25 Consult Date/Type/Reason Admit Date/Time Jan 07, 2017 at 10:13 Initial Consult Date 01/09/17 Type of Consultation: Pulmonary Ordering Provider: JENY MORA MD Subjective Patient appears comfortable no acute distress mild epigastric discomfort and exertional dyspnea Objective Vital Signs Date Time Temp Pulse Resp B/P Pulse Ox O2 Delivery O2 Flow Rate FiO2 01/15/17 12:50 85 20 98 Nasal Cannula 2.0 01/15/17 08:46 21 01/15/17 07:49 97.6 148/81 Intake and Output 01/14/17 01/14/17 01/15/17 15:00 23:00 07:00 Intake Total 100 ml 600 ml 500 ml Output Total 350 ml 400 ml Balance -250 ml 200 ml 500 ml Exam GENERAL: Morbidly obese gentleman comfortable at rest VITAL SIGNS: per chart NECK: Supple. No JVD or lymphadenopathy. CARDIAC EXAM: S1, S2. No added sounds or murmurs. CHEST: Diminished air entry both bases ABDOMEN: Soft, nontender. No guarding or rebound. Obese EXTREMITIES: No cyanosis, clubbing or edema. NEUROLOGIC: Generalized weakness. No focal deficits. Results/Medications Result Diagram: 01/15/17 0700 01/15/17 0700 Results 24 hrs Laboratory Tests Test 01/14/17 17:40 01/14/17 20:49 01/15/17 01:45 01/15/17 07:00 Bedside Glucose 305 H 335 H 272 H White Blood Count 7.2 Red Blood Count 3.39 L Hemoglobin 8.8 L Hematocrit 28.9 L Mean Corpuscular Volume 85.3 Mean Corpuscular Hemoglobin 26.0 L Mean Corpuscular Hemoglobin Concent 30.4 L Red Cell Distribution Width 16.8 H Platelet Count 159 # Mean Platelet Volume 11.2 H Neutrophils % 77.8 H Lymphocytes % 10.4 L Monocytes % 10.7 Eosinophils % 0.4 Basophils % 0.0 Nucleated Red Blood Cells % 0.0 Neutrophils # 5.6 Lymphocytes # 0.8 Monocytes # 0.8 Eosinophils # 0.0 Basophils # 0.0 Nucleated Red Blood Cells # 0.0 Sodium Level 140 Potassium Level 4.9 Chloride Level 100 Carbon Dioxide Level 27 Anion Gap 18 H Blood Urea Nitrogen 92 H Creatinine 3.07 H Glucose Level 209 Calcium Level 9.1 Magnesium Level 3.1 H Test 01/15/17 08:16 01/15/17 12:14 Bedside Glucose 194 211 Medications Current Medications Atorvastatin Calcium (Lipitor) 20 mg HS PO Last administered on 01/12/17 21:03 ; Admin Dose 20 MG; Start 01/07/17 at 21:00 Miscellaneous Information 1 ea NOTE XX ; Start 01/07/17 at 17:30 Glucose (Glutose) 15 gm Q15M PRN PO DECREASED GLUCOSE; Start 01/07/17 at 17:30 Glucose (Glutose) 22.5 gm Q15M PRN PO DECREASED GLUCOSE; Start 01/07/17 at 17: 30 Dextrose (D50w Syringe) 25 ml Q15M PRN IV DECREASED GLUCOSE; Start 01/07/17 at 17:30 Dextrose (D50w Syringe) 50 ml Q15M PRN IV DECREASED GLUCOSE; Start 01/07/17 at 17:30 Glucagon (Glucagen) 1 mg Q15M PRN IM DECREASED GLUCOSE; Start 01/07/17 at 17:30 Glucose (Glutose) 15 gm Q15M PRN BUCCAL DECREASED GLUCOSE; Start 01/07/17 at 17 :30 Nifedipine (Procardia Xl) 30 mg DAILY PO Last administered on 01/15/17 09:09; Admin Dose 30 MG; Start 01/08/17 at 09:00 Lactulose (Enulose) 20 gm HS PO Last administered on 01/14/17 20:56; Admin Dose 20 GM; Start 01/07/17 at 21:00 Docusate Sodium (Colace) 100 mg BID PRN PO CONSTIPATION Last administered on 09:10; Admin Dose 100 MG; Start 01/08/17 at 14:00 Acetaminophen (Tylenol Tab) 500 mg Q6H PRN PO PAIN AND OR ELEVATED TEMP Last administered on 01/10/17 04:14; Admin Dose 500 MG; Start 01/08/17 at 15:30 Acetaminophen/ Hydrocodone Bitart ([place] (5/325)) 1 tab Q4H PRN PO PAIN Last administered on 01/10/17 12:46; Admin Dose 1 TAB; Start 01/09/17 at 08:30 Methylprednisolone Sodium Succinate (Solu-Medrol) 40 mg DAILY IV Last administered on 01/15/17 09:09; Admin Dose 40 MG; Start 01/12/17 at 13:00 Insulin Glargine (Lantus) 20 unit DAILY@20 SC Last administered on 01/14/17 20: 53; Admin Dose 20 UNIT; Start 01/13/17 at 20:00 Diagnostic Test (Pha) (Accu-Chek) 1 ea 02 XX Last administered on 01/15/17 02: 02; Admin Dose 1 EA; Start 01/15/17 at 02:00 Heparin Sodium (Porcine) (Heparin (5000 Units/0.5 ml)) 5,000 unit BID SC Last administered on 01/15/17 09:12; Admin Dose 5,000 UNIT; Start 01/14/17 at 21:00 Assessment/Plan Chief Complaint/Hosp Course IMP: 1. Dyspnea--likely multifactorial, however, a component of asthma +/- ABPA present. + high IgE and + IgG for aspergillus and mucoid impaction on prior CT probable significant component secondary to obesity and possible underlying ascites from cirrhosis. 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 YEVGENIY 4. CKD RECS: 1. BD's 2. CS 3. CPAP as tolerated 4. Encourage out of bed 5. Agree with decreasing diuretics given renal insufficiency and underlying liver disease. Prognosis remains guarded but treatment options are limited. I would consider discharge planning. Discussed with primary care at length. Problems: GUERITA RESENDIZ MD, [facility] Jan 15, 2017 13:26
--- NOTE | 2017-01-15 20:52 | CONS ---
Date/Time of Note Date/Time of Note DATE: 01/15/17 TIME: 20:51 Assessment/Plan Assessment/Plan Chief Complaint/Hosp Course 61-year-old male admitted for shortness of breath. Patient is a history of hepatitis C cirrhosis of liver, morbid obesity obstructive sleep apnea, diabetes mellitus and hypertension. Recent was brought to the emergency room for abdominal distention and shortness of breath. He was slightly nauseous. 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 Problems: Additional Assessment/Plan 1. Shortness of breath multifactorial 2. Morbid obesity 3. Cirrhosis of liver with portal hypertension 4. Mild ascites 5. Diabetes 6. Hypertension 7. Renal failure Plan P.o. fluid restriction 1000 cc a day Diuretics Low-sodium diet Monitor BUN and creatinine closely Weight loss Supplemental oxygen On long-term patient would definitely benefit from bariatric surgery. Discussed with Dr. Mora. Reduce the dose of diuretic Consultation Date/Type/Reason Admit Date/Time Jan 07, 2017 at 10:13 Initial Consult Date 01/09/17 Type of Consultation: Pulmonary Referring Provider: JENY MORA MD 24 HR Interval Summary Constitutional: no complaints Exam/Review of Systems Vital Signs Vitals Vital Signs Date Time Temp Pulse Resp B/P Pulse Ox O2 Delivery O2 Flow Rate FiO2 01/15/17 20:37 91 20 98 Nasal Cannula 2.0 01/15/17 19:48 97.9 140/78 01/15/17 08:46 21 Intake and Output 01/14/17 01/14/17 01/15/17 15:00 23:00 07:00 Intake Total 100 ml 600 ml 500 ml Output Total 350 ml 400 ml Balance -250 ml 200 ml 500 ml Exam Constitutional: alert, oriented, well developed Psych: nl mood/affect, no complaints Head: atraumatic, normocephalic Eyes: EOMI, PERRL, nl conjunctiva, nl lids, nl sclera ENMT: nl external ears & nose, nl lips & teeth, nl nasal mucosa & septum Neck: non-tender, supple Respiratory: clear to auscultation, normal air movement Cardiovascular: nl pulses, regular rate and rhythm Gastrointestinal: nl liver, spleen, non-tender, soft Musculoskeletal: nl extremities to inspection, nl gait and stance Extremities: normal pulses 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: MAINFRAME PROGRAMMER II-XII intact, nl mental status, nl speech, nl strength Skin: nl turgor, No rash or lesions Lymph: nl lymph nodes Results Result Diagram: 01/15/17 0700 01/15/17 0700 Results 24 hrs Laboratory Tests Test 01/15/17 01:45 01/15/17 07:00 01/15/17 08:16 01/15/17 12:14 Bedside Glucose 272 H 194 211 White Blood Count 7.2 Red Blood Count 3.39 L Hemoglobin 8.8 L Hematocrit 28.9 L Mean Corpuscular Volume 85.3 Mean Corpuscular Hemoglobin 26.0 L Mean Corpuscular Hemoglobin Concent 30.4 L Red Cell Distribution Width 16.8 H Platelet Count 159 # Mean Platelet Volume 11.2 H Neutrophils % 77.8 H Lymphocytes % 10.4 L Monocytes % 10.7 Eosinophils % 0.4 Basophils % 0.0 Nucleated Red Blood Cells % 0.0 Neutrophils # 5.6 Lymphocytes # 0.8 Monocytes # 0.8 Eosinophils # 0.0 Basophils # 0.0 Nucleated Red Blood Cells # 0.0 Sodium Level 140 Potassium Level 4.9 Chloride Level 100 Carbon Dioxide Level 27 Anion Gap 18 H Blood Urea Nitrogen 92 H Creatinine 3.07 H Glucose Level 209 Calcium Level 9.1 Magnesium Level 3.1 H Test 01/15/17 17:16 Bedside Glucose 332 H Medications Medications Current Medications Atorvastatin Calcium (Lipitor) 20 mg HS PO Last administered on 01/12/17t 21:03 ; Admin Dose 20 MG; Start 01/07/17 at 21:00 Miscellaneous Information 1 ea NOTE XX ; Start 01/07/17 at 17:30 Glucose (Glutose) 15 gm Q15M PRN PO DECREASED GLUCOSE; Start 01/07/17 at 17:30 Glucose (Glutose) 22.5 gm Q15M PRN PO DECREASED GLUCOSE; Start 01/07/17 at 17: 30 Dextrose (D50w Syringe) 25 ml Q15M PRN IV DECREASED GLUCOSE; Start 01/07/17 at 17:30 Dextrose (D50w Syringe) 50 ml Q15M PRN IV DECREASED GLUCOSE; Start 01/07/17 at 17:30 Glucagon (Glucagen) 1 mg Q15M PRN IM DECREASED GLUCOSE; Start 01/07/17 at 17:30 Glucose (Glutose) 15 gm Q15M PRN BUCCAL DECREASED GLUCOSE; Start 01/07/17 at 17 :30 Nifedipine (Procardia Xl) 30 mg DAILY PO Last administered on 01/15/17 09:09; Admin Dose 30 MG; Start 01/08/17 at 09:00 Lactulose (Enulose) 20 gm HS PO Last administered on 01/14/17 20:56; Admin Dose 20 GM; Start 01/07/17 at 21:00 Docusate Sodium (Colace) 100 mg BID PRN PO CONSTIPATION Last administered on 09:10; Admin Dose 100 MG; Start 01/08/17 at 14:00 Acetaminophen (Tylenol Tab) 500 mg Q6H PRN PO PAIN AND OR ELEVATED TEMP Last administered on 01/10/17 04:14; Admin Dose 500 MG; Start 01/08/17 at 15:30 Acetaminophen/ Hydrocodone Bitart ([place] (5/325)) 1 tab Q4H PRN PO PAIN Last administered on 01/10/17 12:46; Admin Dose 1 TAB; Start 01/09/17 at 08:30 Methylprednisolone Sodium Succinate (Solu-Medrol) 40 mg DAILY IV Last administered on 01/15/17 09:09; Admin Dose 40 MG; Start 01/12/17 at 13:00 Insulin Glargine (Lantus) 20 unit DAILY@20 SC Last administered on 01/14/17 20: 53; Admin Dose 20 UNIT; Start 01/13/17 at 20:00 Diagnostic Test (Pha) (Accu-Chek) 1 ea 02 XX Last administered on 01/15/17 02: 02; Admin Dose 1 EA; Start 01/15/17 at 02:00 Heparin Sodium (Porcine) (Heparin (5000 Units/0.5 ml)) 5,000 unit BID SC Last administered on 01/15/17 09:12; Admin Dose 5,000 UNIT; Start 01/14/17 at 21:00 STUART STANLEY MD Jan 15, 2017 20:52
[2017-01-15] MEDS: ATORVASTATIN 20 MG TAB PO SCH (21:00)
[2017-01-15] MEDS: INSULIN GLARGINE [LANtus] 3 ML PEN SC SCH (21:14)
[2017-01-15] MEDS: LACTULOSE 30ML CUP PO SCH (21:22)
[2017-01-15] MEDS ORDERED: INSULIN ASPART [NOVOLOG] 3 ML PEN SC ONE (21:30)
[2017-01-15] MEDS ORDERED: INSULIN GLARGINE [LANtus] 3 ML PEN SC ONE (21:30)
[2017-01-16] VITALS (10 sets, daily range): BP systolic 121–147; BP diastolic 67–82; PULSE 80–97; RESP 19–20
[2017-01-16] MEDS ORDERED: INSULIN ASPART [NOVOLOG] 3 ML PEN SC ONE ×2 (02:00→21:30)
[2017-01-16] MEDS: ACCU-CHEK XX SCH (02:05)
[2017-01-16 07:02] LABS: ADD SCAN DIFF NO
[2017-01-16 07:05] LABS: EOSINOPHILS % 0.4 % (0.0-7.0); HEMOGLOBIN 8.6 g/dl (14.0-18.0); LYMPHOCYTES # 0.7 10^3/ul (0.8-2.9); LYMPHOCYTES % 9.9 % (15.0-51.0); MEAN CORPUSCULAR HEMOGLOBIN 25.2 pg (29.0-33.0); MEAN CORPUSCULAR HGB CONC 29.7 g/dl (32.0-37.0); MEAN PLATELET VOLUME 10.6 fl (7.4-10.4); MONOCYTE # 0.8 10^3/ul (0.3-0.9); MONOCYTES % 12.2 % (0.0-11.0); NEUTROPHIL # 5.2 10^3/ul (1.6-7.5); NEUTROPHILS % 76.6 % (39.0-77.0); PLATELET COUNT 154 10^3/UL (140-415); RED BLOOD COUNT 3.41 10^6/ul (4.70-6.10); RED CELL DISTRIBUTION WIDTH 16.8 % (11.5-14.5); WHITE BLOOD COUNT 6.8 10^3/ul (4.8-10.8)
[2017-01-16 07:26] LABS: CALCIUM 9.1 mg/dl (8.4-10.2); CREATININE 3.08 mg/dl (0.61-1.24); MAGNESIUM 3.2 mg/dl (1.7-2.5); POTASSIUM 4.9 mmol/L (3.5-5.1)
[2017-01-16] MEDS: ALBUTEROL/IPRATROPIUM (NEB) 3 ML AMP HHN SCH ×4 (07:56→20:12)
[2017-01-16] MEDS: INSULIN ASPART [NOVOLOG] 3 ML PEN SC SCH ×4 (08:11→21:21)
[2017-01-16] MEDS: NIFEdipine (XL) 30 MG TAB PO SCH (08:49)
[2017-01-16] MEDS: METHYLPREDNISOLONE 40 MG INJ IV SCH (08:50)
[2017-01-16] MEDS: HEPARIN 5,000 UNIT/0.5 ML VIAL SC SCH ×2 (08:52→20:49)
--- NOTE | 2017-01-16 19:58 | CONS ---
Date/Time of Note Date/Time of Note DATE: 01/16/17 TIME: 19:56 Consult Date/Type/Reason Admit Date/Time Jan 07, 2017 at 10:13 Initial Consult Date 01/09/17 Type of Consultation: Pulmonary Ordering Provider: JENY MORA MD Subjective less short of breath this morning. still with significant abdominal distension and discomfort. Objective Vital Signs Date Time Temp Pulse Resp B/P Pulse Ox O2 Delivery O2 Flow Rate FiO2 01/16/17 16:07 90 01/16/17 15:26 97.6 20 121/82 93 01/16/17 14:45 Nasal Cannula 2.0 01/15/17 08:46 21 Intake and Output 01/15/17 01/15/17 01/16/17 15:00 23:00 07:00 Intake Total 1600 ml 400 ml Balance 1600 ml 400 ml Exam Events GENERAL: Obese gentleman comfortable at rest. VITAL SIGNS: per chart NECK: Supple. No JVD or lymphadenopathy. CARDIAC EXAM: S1, S2. No added sounds or murmurs. CHEST: clear bilaterally, No added sounds, rales or wheezes ABDOMEN: Soft, nontender. No guarding or rebound. Distended. EXTREMITIES: No cyanosis, clubbing or edema. NEUROLOGIC: Generalized weakness. No focal deficits. Results/Medications Result Diagram: 01/16/17 0642 01/16/17 0642 Results 24 hrs Laboratory Tests Test 01/15/17 21:02 01/16/17 01:47 01/16/17 06:42 01/16/17 08:08 Bedside Glucose 397 H 306 H 175 White Blood Count 6.8 Red Blood Count 3.41 L Hemoglobin 8.6 L Hematocrit 29.0 L Mean Corpuscular Volume 85.0 Mean Corpuscular Hemoglobin 25.2 L Mean Corpuscular Hemoglobin Concent 29.7 L Red Cell Distribution Width 16.8 H Platelet Count 154 Mean Platelet Volume 10.6 H Neutrophils % 76.6 Lymphocytes % 9.9 L Monocytes % 12.2 H Eosinophils % 0.4 Basophils % 0.0 Nucleated Red Blood Cells % 0.0 Neutrophils # 5.2 Lymphocytes # 0.7 L Monocytes # 0.8 Eosinophils # 0.0 Basophils # 0.0 Nucleated Red Blood Cells # 0.0 Sodium Level 142 Potassium Level 4.9 Chloride Level 100 Carbon Dioxide Level 28 Anion Gap 19 H Blood Urea Nitrogen 94 H Creatinine 3.08 H Glucose Level 187 Calcium Level 9.1 Magnesium Level 3.2 H Test 01/16/17 12:12 01/16/17 17:00 Bedside Glucose 208 291 H Medications Current Medications Atorvastatin Calcium (Lipitor) 20 mg HS PO Last administered on 01/12/17 21:03 ; Admin Dose 20 MG; Start 01/07/17 at 21:00 Miscellaneous Information 1 ea NOTE XX ; Start 01/07/17 at 17:30 Glucose (Glutose) 15 gm Q15M PRN PO DECREASED GLUCOSE; Start 01/07/17 at 17:30 Glucose (Glutose) 22.5 gm Q15M PRN PO DECREASED GLUCOSE; Start 01/07/17 at 17: 30 Dextrose (D50w Syringe) 25 ml Q15M PRN IV DECREASED GLUCOSE; Start 01/07/17 at 17:30 Dextrose (D50w Syringe) 50 ml Q15M PRN IV DECREASED GLUCOSE; Start 01/07/17 at 17:30 Glucagon (Glucagen) 1 mg Q15M PRN IM DECREASED GLUCOSE; Start 01/07/17 at 17:30 Glucose (Glutose) 15 gm Q15M PRN BUCCAL DECREASED GLUCOSE; Start 01/07/17 at 17 :30 Nifedipine (Procardia Xl) 30 mg DAILY PO Last administered on 01/16/17 08:49; Admin Dose 30 MG; Start 01/08/17 at 09:00 Lactulose (Enulose) 20 gm HS PO Last administered on 01/15/17 21:22; Admin Dose 20 GM; Start 01/07/17 at 21:00 Docusate Sodium (Colace) 100 mg BID PRN PO CONSTIPATION Last administered on 09:10; Admin Dose 100 MG; Start 01/08/17 at 14:00 Acetaminophen (Tylenol Tab) 500 mg Q6H PRN PO PAIN AND OR ELEVATED TEMP Last administered on 01/10/17 04:14; Admin Dose 500 MG; Start 01/08/17 at 15:30 Acetaminophen/ Hydrocodone Bitart ([place] (5/325)) 1 tab Q4H PRN PO PAIN Last administered on 01/10/17 12:46; Admin Dose 1 TAB; Start 01/09/17 at 08:30 Methylprednisolone Sodium Succinate (Solu-Medrol) 40 mg DAILY IV Last administered on 01/16/17 08:50; Admin Dose 40 MG; Start 01/12/17 at 13:00 Diagnostic Test (Pha) (Accu-Chek) 1 ea 02 XX Last administered on 01/16/17 02: 05; Admin Dose 1 EA; Start 01/15/17 at 02:00 Heparin Sodium (Porcine) (Heparin (5000 Units/0.5 ml)) 5,000 unit BID SC Last administered on 01/16/17 08:52; Admin Dose 5,000 UNIT; Start 01/14/17 at 21:00 Insulin Glargine (Lantus) 25 unit DAILY@20 SC ; Start 01/16/17 at 20:00 Assessment/Plan Chief Complaint/Hosp Course IMP: 1. Dyspnea--likely multifactorial, however, a component of asthma +/- ABPA present. + high IgE and + IgG for aspergillus and mucoid impaction on prior CT probable significant component secondary to obesity and possible underlying ascites from cirrhosis. 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 YEVGENIY 4. CKD RECS: 1. BD's 2. CS 3. CPAP as tolerated 4. Encourage out of bed 5. gentle diuresis. Problems: GUERITA RESENDIZ MD, [facility] Jan 16, 2017 19:58
[2017-01-16] MEDS ORDERED: INSULIN GLARGINE [LANtus] 3 ML PEN SC SCH (20:00)
[2017-01-16] MEDS: LACTULOSE 30ML CUP PO SCH (20:47)
[2017-01-16] MEDS: ATORVASTATIN 20 MG TAB PO SCH (20:55)
[2017-01-17] MEDS ORDERED: INSULIN ASPART [NOVOLOG] 3 ML PEN SC PRN (02:00)
[2017-01-17] MEDS: ACCU-CHEK XX SCH (02:00)
[2017-01-17 02:28] VITALS: BP 146/71; PULSE 95
[2017-01-17 06:22] LABS: ADD SCAN DIFF NO
[2017-01-17 06:45] LABS: ABNORMAL IP MESSAGE 1; EOSINOPHILS % 0.3 % (0.0-7.0); HEMATOCRIT 27.1 % (42.0-52.0); HEMOGLOBIN 8.1 g/dl (14.0-18.0); LYMPHOCYTES # 0.5 10^3/ul (0.8-2.9); LYMPHOCYTES % 8.8 % (15.0-51.0); MEAN CORPUSCULAR HEMOGLOBIN 25.4 pg (29.0-33.0); MEAN CORPUSCULAR HGB CONC 29.9 g/dl (32.0-37.0); MEAN PLATELET VOLUME 11.8 fl (7.4-10.4); MONOCYTE # 0.7 10^3/ul (0.3-0.9); MONOCYTES % 12.5 % (0.0-11.0); NEUTROPHIL # 4.6 10^3/ul (1.6-7.5); NEUTROPHILS % 77.6 % (39.0-77.0); PLATELET COUNT 132 10^3/UL (140-415); RED BLOOD COUNT 3.19 10^6/ul (4.70-6.10); RED CELL DISTRIBUTION WIDTH 16.8 % (11.5-14.5); WHITE BLOOD COUNT 5.9 10^3/ul (4.8-10.8)
[2017-01-17 07:07] LABS: CALCIUM 8.8 mg/dl (8.4-10.2); CREATININE 3.23 mg/dl (0.61-1.24); MAGNESIUM 3.3 mg/dl (1.7-2.5); PHOSPHORUS 6.9 mg/dl (2.5-4.9); POTASSIUM 5.3 mmol/L (3.5-5.1)
[2017-01-17 07:49] VITALS: BP 136/72; RESP 18
[2017-01-17] MEDS: ALBUTEROL/IPRATROPIUM (NEB) 3 ML AMP HHN SCH ×4 (08:03→20:39)
[2017-01-17] MEDS: METHYLPREDNISOLONE 40 MG INJ IV SCH (08:14)
[2017-01-17] MEDS: NIFEdipine (XL) 30 MG TAB PO SCH (08:15)
[2017-01-17] MEDS: HEPARIN 5,000 UNIT/0.5 ML VIAL SC SCH ×2 (08:18→21:02)
[2017-01-17] MEDS: INSULIN ASPART [NOVOLOG] 3 ML PEN SC SCH ×4 (08:28→20:57)
--- NOTE | 2017-01-17 12:31 | CONS ---
Date/Time of Note Date/Time of Note DATE: 01/17/17 TIME: 12:30 Assessment/Plan Assessment/Plan Chief Complaint/Hosp Course 61-year-old male admitted for shortness of breath. Patient is a history of hepatitis C cirrhosis of liver, morbid obesity obstructive sleep apnea, diabetes mellitus and hypertension. Recent was brought to the emergency room for abdominal distention and shortness of breath. He was slightly nauseous. 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 Problems: Additional Assessment/Plan Additional Assessment/Plan 1. Shortness of breath multifactorial 2. Morbid obesity 3. Cirrhosis of liver with portal hypertension 4. Mild ascites 5. Diabetes 6. Hypertension 7. Renal failure Plan P.o. fluid restriction 1000 cc a day Low-sodium diet Monitor BUN and creatinine closely Weight loss Supplemental oxygen Dietary consult, reduce calorie intake to 1000-calorie a day Consultation Date/Type/Reason Admit Date/Time Jan 07, 2017 at 10:13 Initial Consult Date 01/09/17 Type of Consultation: Pulmonary Referring Provider: JENY MORA MD 24 HR Interval Summary Free Text/Dictation Less short of breath, pedal edema has reduced as per the patient and Exam/Review of Systems Vital Signs Vitals Vital Signs Date Time Temp Pulse Resp B/P Pulse Ox O2 Delivery O2 Flow Rate FiO2 01/17/17 08:03 88 22 96 Nasal Cannula 2.0 01/17/17 07:49 97.6 136/72 01/15/17 08:46 21 Intake and Output 01/16/17 01/16/17 01/17/17 15:00 23:00 07:00 Intake Total 900 ml 200 ml Balance 900 ml 200 ml Exam Constitutional: alert, oriented, well developed Psych: nl mood/affect, no complaints Head: atraumatic, normocephalic Eyes: EOMI, PERRL, nl conjunctiva, nl lids, nl sclera ENMT: nl external ears & nose, nl lips & teeth, nl nasal mucosa & septum Neck: non-tender, supple Respiratory: clear to auscultation, normal air movement Cardiovascular: nl pulses, regular rate and rhythm Gastrointestinal: nl liver, spleen, non-tender, soft Musculoskeletal: nl extremities to inspection, nl gait and stance Extremities: normal pulses 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: COT[employer] C[employer] MAKER II-XII intact, nl mental status, nl speech, nl strength Skin: nl turgor, No rash or lesions Lymph: nl lymph nodes Results Result Diagram: 01/17/17 0505 01/17/17 0505 Results 24 hrs Laboratory Tests Test 01/16/17 17:00 01/16/17 20:41 01/17/17 02:21 01/17/17 05:05 Bedside Glucose 291 H 353 H 281 H White Blood Count 5.9 Red Blood Count 3.19 L Hemoglobin 8.1 L Hematocrit 27.1 L Mean Corpuscular Volume 85.0 Mean Corpuscular Hemoglobin 25.4 L Mean Corpuscular Hemoglobin Concent 29.9 L Red Cell Distribution Width 16.8 H Platelet Count 132 L Mean Platelet Volume 11.8 H Neutrophils % 77.6 H Lymphocytes % 8.8 L Monocytes % 12.5 H Eosinophils % 0.3 Basophils % 0.0 Nucleated Red Blood Cells % 0.0 Neutrophils # 4.6 Lymphocytes # 0.5 L Monocytes # 0.7 Eosinophils # 0.0 Basophils # 0.0 Nucleated Red Blood Cells # 0.0 Sodium Level 139 Potassium Level 5.3 H Chloride Level 101 Carbon Dioxide Level 26 Anion Gap 17 H Blood Urea Nitrogen 100 H Creatinine 3.23 H Glucose Level 259 H Calcium Level 8.8 Phosphorus Level 6.9 H Magnesium Level 3.3 H Test 01/17/17 07:52 01/17/17 12:00 Bedside Glucose 228 H 235 H Medications Medications Current Medications Atorvastatin Calcium (Lipitor) 20 mg HS PO Last administered on 01/12/17t 21:03 ; Admin Dose 20 MG; Start 01/07/17 at 21:00 Miscellaneous Information 1 ea NOTE XX ; Start 01/07/17 at 17:30 Glucose (Glutose) 15 gm Q15M PRN PO DECREASED GLUCOSE; Start 01/07/17 at 17:30 Glucose (Glutose) 22.5 gm Q15M PRN PO DECREASED GLUCOSE; Start 01/07/17 at 17: 30 Dextrose (D50w Syringe) 25 ml Q15M PRN IV DECREASED GLUCOSE; Start 01/07/17 at 17:30 Dextrose (D50w Syringe) 50 ml Q15M PRN IV DECREASED GLUCOSE; Start 01/07/17 at 17:30 Glucagon (Glucagen) 1 mg Q15M PRN IM DECREASED GLUCOSE; Start 01/07/17 at 17:30 Glucose (Glutose) 15 gm Q15M PRN BUCCAL DECREASED GLUCOSE; Start 01/07/17 at 17 :30 Nifedipine (Procardia Xl) 30 mg DAILY PO Last administered on 01/17/17 08:15; Admin Dose 30 MG; Start 01/08/17 at 09:00 Lactulose (Enulose) 20 gm HS PO Last administered on 01/16/17 20:47; Admin Dose 20 GM; Start 01/07/17 at 21:00 Docusate Sodium (Colace) 100 mg BID PRN PO CONSTIPATION Last administered on 09:10; Admin Dose 100 MG; Start 01/08/17 at 14:00 Acetaminophen (Tylenol Tab) 500 mg Q6H PRN PO PAIN AND OR ELEVATED TEMP Last administered on 01/10/17 04:14; Admin Dose 500 MG; Start 01/08/17 at 15:30 Acetaminophen/ Hydrocodone Bitart ([place] (5/325)) 1 tab Q4H PRN PO PAIN Last administered on 01/10/17 12:46; Admin Dose 1 TAB; Start 01/09/17 at 08:30 Methylprednisolone Sodium Succinate (Solu-Medrol) 40 mg DAILY IV Last administered on 01/17/17 08:14; Admin Dose 40 MG; Start 01/12/17 at 13:00 Diagnostic Test (Pha) (Accu-Chek) 1 ea 02 XX Last administered on 01/16/17 02: 05; Admin Dose 1 EA; Start 01/15/17 at 02:00 Heparin Sodium (Porcine) (Heparin (5000 Units/0.5 ml)) 5,000 unit BID SC Last administered on 01/17/17 08:18; Admin Dose 5,000 UNIT; Start 01/14/17 at 21:00 Insulin Glargine (Lantus) 25 unit DAILY@20 SC Last administered on 01/16/17 20: 49; Admin Dose 25 UNIT; Start 01/16/17 at 20:00 Insulin Aspart (Novolog Insulin Pen) 10 unit ONCE PRN SC ELEVATED GLUCOSE; Start 01/17/17 at 02:00 STUART STANLEY MD Jan 17, 2017 12:31
[2017-01-17] MEDS ORDERED: PRAMOXINE/HC 10 GM RECT FOAM PR ONE (17:00)
--- NOTE | 2017-01-17 17:19 | CONS ---
Date/Time of Note Date/Time of Note DATE: 01/17/17 TIME: 17:18 Consult Date/Type/Reason Admit Date/Time Jan 07, 2017 at 10:13 Initial Consult Date 01/09/17 Type of Consultation: Pulmonary Ordering Provider: JENY MORA MD Subjective No events. Objective Vital Signs Date Time Temp Pulse Resp B/P Pulse Ox O2 Delivery O2 Flow Rate FiO2 01/17/17 09:00 Nasal Cannula 2.0 01/17/17 08:03 88 22 96 01/17/17 07:49 97.6 136/72 01/15/17 08:46 21 Intake and Output 01/16/17 01/16/17 01/17/17 15:00 23:00 07:00 Intake Total 900 ml 200 ml Balance 900 ml 200 ml Exam HEENT: Neck supple; no JVD; no LAD CVS: RRR, S1 and S2 CHEST: Clear ABD: Soft, NT, + BS EXT: No c/c/e Results/Medications Result Diagram: 01/17/17 0505 01/17/17 0505 Results 24 hrs Laboratory Tests Test 01/16/17 20:41 01/17/17 02:21 01/17/17 05:05 01/17/17 07:52 Bedside Glucose 353 H 281 H 228 H White Blood Count 5.9 Red Blood Count 3.19 L Hemoglobin 8.1 L Hematocrit 27.1 L Mean Corpuscular Volume 85.0 Mean Corpuscular Hemoglobin 25.4 L Mean Corpuscular Hemoglobin Concent 29.9 L Red Cell Distribution Width 16.8 H Platelet Count 132 L Mean Platelet Volume 11.8 H Neutrophils % 77.6 H Lymphocytes % 8.8 L Monocytes % 12.5 H Eosinophils % 0.3 Basophils % 0.0 Nucleated Red Blood Cells % 0.0 Neutrophils # 4.6 Lymphocytes # 0.5 L Monocytes # 0.7 Eosinophils # 0.0 Basophils # 0.0 Nucleated Red Blood Cells # 0.0 Sodium Level 139 Potassium Level 5.3 H Chloride Level 101 Carbon Dioxide Level 26 Anion Gap 17 H Blood Urea Nitrogen 100 H Creatinine 3.23 H Glucose Level 259 H Calcium Level 8.8 Phosphorus Level 6.9 H Magnesium Level 3.3 H Test 01/17/17 12:00 01/17/17 17:12 Bedside Glucose 235 H 298 H Medications Current Medications Atorvastatin Calcium (Lipitor) 20 mg HS PO Last administered on 01/12/17 21:03 ; Admin Dose 20 MG; Start 01/07/17 at 21:00 Miscellaneous Information 1 ea NOTE XX ; Start 01/07/17 at 17:30 Glucose (Glutose) 15 gm Q15M PRN PO DECREASED GLUCOSE; Start 01/07/17 at 17:30 Glucose (Glutose) 22.5 gm Q15M PRN PO DECREASED GLUCOSE; Start 01/07/17 at 17: 30 Dextrose (D50w Syringe) 25 ml Q15M PRN IV DECREASED GLUCOSE; Start 01/07/17 at 17:30 Dextrose (D50w Syringe) 50 ml Q15M PRN IV DECREASED GLUCOSE; Start 01/07/17 at 17:30 Glucagon (Glucagen) 1 mg Q15M PRN IM DECREASED GLUCOSE; Start 01/07/17 at 17:30 Glucose (Glutose) 15 gm Q15M PRN BUCCAL DECREASED GLUCOSE; Start 01/07/17 at 17 :30 Nifedipine (Procardia Xl) 30 mg DAILY PO Last administered on 01/17/17 08:15; Admin Dose 30 MG; Start 01/08/17 at 09:00 Lactulose (Enulose) 20 gm HS PO Last administered on 01/16/17 20:47; Admin Dose 20 GM; Start 01/07/17 at 21:00 Docusate Sodium (Colace) 100 mg BID PRN PO CONSTIPATION Last administered on 09:10; Admin Dose 100 MG; Start 01/08/17 at 14:00 Acetaminophen (Tylenol Tab) 500 mg Q6H PRN PO PAIN AND OR ELEVATED TEMP Last administered on 01/10/17 04:14; Admin Dose 500 MG; Start 01/08/17 at 15:30 Acetaminophen/ Hydrocodone Bitart ([place] (5/325)) 1 tab Q4H PRN PO PAIN Last administered on 01/10/17 12:46; Admin Dose 1 TAB; Start 01/09/17 at 08:30 Methylprednisolone Sodium Succinate (Solu-Medrol) 40 mg DAILY IV Last administered on 01/17/17 08:14; Admin Dose 40 MG; Start 01/12/17 at 13:00 Diagnostic Test (Pha) (Accu-Chek) 1 ea 02 XX Last administered on 01/16/17 02: 05; Admin Dose 1 EA; Start 01/15/17 at 02:00 Heparin Sodium (Porcine) (Heparin (5000 Units/0.5 ml)) 5,000 unit BID SC Last administered on 01/17/17 08:18; Admin Dose 5,000 UNIT; Start 01/14/17 at 21:00 Insulin Aspart (Novolog Insulin Pen) 10 unit ONCE PRN SC ELEVATED GLUCOSE; Start 01/17/17 at 02:00 Insulin Glargine 30 unit 30 unit DAILY@20 SC ; Start 01/17/17 at 20:00 Sodium Chloride (1/2 NS) 1,000 ml @ 75 mls/hr [id number] IV ; Start 01/17/17 at 17: 00 Assessment/Plan Additional Assessment/Plan IMP: 1. Dyspnea--likely multifactorial, however, a component of asthma +/- ABPA present. + high IgE and + IgG for aspergillus and mucoid impaction on prior CT probable significant component secondary to obesity and possible underlying ascites from cirrhosis. 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 YEVGENIY 4. CKD RECS: 1. BD's 2. CS 3. Mobilize EVER CHAPA MD Jan 17, 2017 17:19
[2017-01-17] MEDS: SOD CHLORIDE 0.45% 1,000 ML IV SCH (17:31)
[2017-01-17] MEDS: ATORVASTATIN 20 MG TAB PO SCH (20:50)
[2017-01-17] MEDS: INSULIN GLARGINE [LANtus] 3 ML PEN SC SCH (20:58)
[2017-01-17] MEDS: LACTULOSE 30ML CUP PO SCH (21:01)
[2017-01-17] MEDS ORDERED: INSULIN ASPART [NOVOLOG] 3 ML PEN SC ONE (21:30)
[2017-01-18 02:00] VITALS: BP 144/73; PULSE 86; RESP 18
[2017-01-18] MEDS: ACCU-CHEK XX SCH (02:00)
[2017-01-18 06:23] LABS: ADD SCAN DIFF NO
[2017-01-18 06:31] LABS: ABNORMAL IP MESSAGE 1; EOSINOPHILS % 0.1 % (0.0-7.0); HEMATOCRIT 28.2 % (42.0-52.0); HEMOGLOBIN 8.6 g/dl (14.0-18.0); LYMPHOCYTES # 0.4 10^3/ul (0.8-2.9); LYMPHOCYTES % 4.9 % (15.0-51.0); MEAN CORPUSCULAR HEMOGLOBIN 25.7 pg (29.0-33.0); MEAN CORPUSCULAR HGB CONC 30.5 g/dl (32.0-37.0); MEAN CORPUSCULAR VOLUME 84.4 fl (82.0-101.0); MEAN PLATELET VOLUME 11.2 fl (7.4-10.4); MONOCYTE # 0.9 10^3/ul (0.3-0.9); MONOCYTES % 9.8 % (0.0-11.0); NEUTROPHIL # 7.5 10^3/ul (1.6-7.5); NEUTROPHILS % 84.9 % (39.0-77.0); NUCLEATED RED BLOOD CELLS% 0.2 /100WBC (0.0-0.0); PLATELET COUNT 138 10^3/UL (140-415); RED BLOOD COUNT 3.34 10^6/ul (4.70-6.10); RED CELL DISTRIBUTION WIDTH 16.9 % (11.5-14.5); WHITE BLOOD COUNT 8.8 10^3/ul (4.8-10.8)
[2017-01-18 06:53] LABS: CALCIUM 8.4 mg/dl (8.4-10.2); CREATININE 3.23 mg/dl (0.61-1.24); MAGNESIUM 3.3 mg/dl (1.7-2.5); POTASSIUM 4.9 mmol/L (3.5-5.1)
[2017-01-18 07:31] VITALS: BP 136/73; RESP 20
[2017-01-18] MEDS: ALBUTEROL/IPRATROPIUM (NEB) 3 ML AMP HHN SCH ×4 (07:52→20:41)
[2017-01-18] MEDS: INSULIN ASPART [NOVOLOG] 3 ML PEN SC SCH ×4 (07:58→21:00)
[2017-01-18] MEDS: NIFEdipine (XL) 30 MG TAB PO SCH (08:01)
[2017-01-18] MEDS: METHYLPREDNISOLONE 40 MG INJ IV SCH (08:01)
[2017-01-18] MEDS: SOD CHLORIDE 0.45% 1,000 ML IV SCH ×2 (08:02→21:32)
[2017-01-18] MEDS: HEPARIN 5,000 UNIT/0.5 ML VIAL SC SCH ×2 (08:08→20:49)
[2017-01-18] MEDS: ACETAMINOPHEN 500 MG TAB PO PRN (13:38)
--- NOTE | 2017-01-18 15:14 | CONS ---
Date/Time of Note Date/Time of Note DATE: 01/18/17 TIME: 15:12 Consult Date/Type/Reason Admit Date/Time Jan 07, 2017 at 10:13 Initial Consult Date 01/09/17 Type of Consultation: Pulmonary Ordering Provider: JENY MORA MD Subjective No events. Sleeping now Objective Vital Signs Date Time Temp Pulse Resp B/P Pulse Ox O2 Delivery O2 Flow Rate FiO2 01/18/17 08:30 Nasal Cannula 2.0 01/18/17 07:52 95 21 01/18/17 07:52 85 20 01/18/17 07:31 97.8 136/73 Intake and Output 01/17/17 01/17/17 01/18/17 15:00 23:00 07:00 Intake Total 1200 ml 1450 ml Output Total 1175 ml Balance 1200 ml 275 ml Exam HEENT: Neck supple; no JVD; no LAD CVS: RRR, S1 and S2 CHEST: Clear ABD: Soft, NT, + BS EXT: No c/c + edema Results/Medications Result Diagram: 01/18/17 0510 01/18/17 0510 Results 24 hrs Laboratory Tests Test 01/17/17 17:12 01/17/17 20:45 01/18/17 02:42 01/18/17 05:10 Bedside Glucose 298 H 329 H 236 H White Blood Count 8.8 # Red Blood Count 3.34 L Hemoglobin 8.6 L Hematocrit 28.2 L Mean Corpuscular Volume 84.4 Mean Corpuscular Hemoglobin 25.7 L Mean Corpuscular Hemoglobin Concent 30.5 L Red Cell Distribution Width 16.9 H Platelet Count 138 L Mean Platelet Volume 11.2 H Neutrophils % 84.9 H Lymphocytes % 4.9 L Monocytes % 9.8 Eosinophils % 0.1 Basophils % 0.0 Nucleated Red Blood Cells % 0.2 H Neutrophils # 7.5 Lymphocytes # 0.4 L Monocytes # 0.9 Eosinophils # 0.0 Basophils # 0.0 Nucleated Red Blood Cells # 0.0 Sodium Level 136 Potassium Level 4.9 Chloride Level 102 Carbon Dioxide Level 25 Anion Gap 14 Blood Urea Nitrogen 97 H Creatinine 3.23 H Glucose Level 179 Calcium Level 8.4 Magnesium Level 3.3 H Test 01/18/17 07:45 01/18/17 11:58 Bedside Glucose 208 273 H Medications Current Medications Atorvastatin Calcium (Lipitor) 20 mg HS PO Last administered on 01/12/17 21:03 ; Admin Dose 20 MG; Start 01/07/17 at 21:00 Miscellaneous Information 1 ea NOTE XX ; Start 01/07/17 at 17:30 Glucose (Glutose) 15 gm Q15M PRN PO DECREASED GLUCOSE; Start 01/07/17 at 17:30 Glucose (Glutose) 22.5 gm Q15M PRN PO DECREASED GLUCOSE; Start 01/07/17 at 17: 30 Dextrose (D50w Syringe) 25 ml Q15M PRN IV DECREASED GLUCOSE; Start 01/07/17 at 17:30 Dextrose (D50w Syringe) 50 ml Q15M PRN IV DECREASED GLUCOSE; Start 01/07/17 at 17:30 Glucagon (Glucagen) 1 mg Q15M PRN IM DECREASED GLUCOSE; Start 01/07/17 at 17:30 Glucose (Glutose) 15 gm Q15M PRN BUCCAL DECREASED GLUCOSE; Start 01/07/17 at 17 :30 Nifedipine (Procardia Xl) 30 mg DAILY PO Last administered on 01/18/17 08:01; Admin Dose 30 MG; Start 01/08/17 at 09:00 Lactulose (Enulose) 20 gm HS PO Last administered on 01/17/17 21:01; Admin Dose 20 GM; Start 01/07/17 at 21:00 Docusate Sodium (Colace) 100 mg BID PRN PO CONSTIPATION Last administered on 09:10; Admin Dose 100 MG; Start 01/08/17 at 14:00 Acetaminophen (Tylenol Tab) 500 mg Q6H PRN PO PAIN AND OR ELEVATED TEMP Last administered on 01/18/17 13:38; Admin Dose 500 MG; Start 01/08/17 at 15:30 Acetaminophen/ Hydrocodone Bitart ([place] (5/325)) 1 tab Q4H PRN PO PAIN Last administered on 01/10/17 12:46; Admin Dose 1 TAB; Start 01/09/17 at 08:30 Methylprednisolone Sodium Succinate (Solu-Medrol) 40 mg DAILY IV Last administered on 01/18/17 08:01; Admin Dose 40 MG; Start 01/12/17 at 13:00 Diagnostic Test (Pha) (Accu-Chek) 1 ea 02 XX Last administered on 01/16/17 02: 05; Admin Dose 1 EA; Start 01/15/17 at 02:00 Heparin Sodium (Porcine) (Heparin (5000 Units/0.5 ml)) 5,000 unit BID SC Last administered on 01/18/17 08:08; Admin Dose 5,000 UNIT; Start 01/14/17 at 21:00 Insulin Aspart (Novolog Insulin Pen) 10 unit ONCE PRN SC ELEVATED GLUCOSE; Start 01/17/17 at 02:00 Insulin Glargine 30 unit 30 unit DAILY@20 SC Last administered on 01/17/17 20: 58; Admin Dose 30 UNIT; Start 01/17/17 at 20:00 Sodium Chloride (1/2 NS) 1,000 ml @ 75 mls/hr [id number] IV Last administered on 01/18/17 08:02; Admin Dose 75 MLS/HR; Start 01/17/17 at 17:00 Assessment/Plan Additional Assessment/Plan IMP: 1. Dyspnea--likely multifactorial, however, a component of asthma +/- ABPA present. + high IgE and + IgG for aspergillus and mucoid impaction on prior CT probable significant component secondary to obesity and possible underlying ascites from cirrhosis. 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 YEVGENIY 4. CKD RECS: 1. BD's 2. CS 3. Mobilize OOB 4. Follow I/O's 5. Maintain slightly negative EVER OSHEA MD Jan 18, 2017 15:14
--- NOTE | 2017-01-18 17:16 | RADRPT ---
PROCEDURE: US Abdomen limited . CLINICAL INDICATION: Ascites TECHNIQUE: Multiple real-time images were acquired of the patient's abdomen utilizing a high resol ution transducer. COMPARISON: 01/07/2017 FINDINGS: There is a small amount of ascites throughout the abdomen. RPTAT: AA IMPRESSION: Small amount of ascites. .Donta Brown MD, MD Date Time Electronically viewed and signed by .Donta Brown MD, MD on 01/18/2017 17:16 .S/
--- NOTE | 2017-01-18 17:28 | CONS ---
Date/Time of Note Date/Time of Note DATE: 01/18/17 TIME: 17:26 Assessment/Plan Assessment/Plan Chief Complaint/Hosp Course 61-year-old male admitted for shortness of breath. Patient is a history of hepatitis C cirrhosis of liver, morbid obesity obstructive sleep apnea, diabetes mellitus and hypertension. Recent was brought to the emergency room for abdominal distention and shortness of breath. He was slightly nauseous. 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 Problems: Additional Assessment/Plan Problems: Additional Assessment/Plan Additional Assessment/Plan 1. Shortness of breath multifactorial 2. Morbid obesity 3. Cirrhosis of liver with portal hypertension 4. Mild ascites 5. Diabetes 6. Hypertension 7. Renal failure Plan P.o. fluid restriction 1000 cc a day Low-sodium diet Monitor BUN and creatinine closely Weight loss Supplemental oxygen Dietary consult, reduce calorie intake to 1000-calorie a day Renal consult Spot urine for sodium Discussed with the patient and the family Consultation Date/Type/Reason Admit Date/Time Jan 07, 2017 at 10:13 Initial Consult Date 01/09/17 Type of Consultation: Pulmonary Referring Provider: JENY MORA MD 24 HR Interval Summary Constitutional: no complaints Exam/Review of Systems Vital Signs Vitals Vital Signs Date Time Temp Pulse Resp B/P Pulse Ox O2 Delivery O2 Flow Rate FiO2 01/18/17 17:19 95 21 01/18/17 17:19 85 20 01/18/17 08:30 Nasal Cannula 2.0 01/18/17 07:31 97.8 136/73 Intake and Output 01/17/17 01/17/17 01/18/17 15:00 23:00 07:00 Intake Total 1200 ml 1450 ml Output Total 1175 ml Balance 1200 ml 275 ml Exam Constitutional: alert, oriented, well developed Psych: nl mood/affect, no complaints Head: atraumatic, normocephalic Eyes: EOMI, PERRL, nl conjunctiva, nl lids, nl sclera ENMT: nl external ears & nose, nl lips & teeth, nl nasal mucosa & septum Neck: non-tender, supple Respiratory: clear to auscultation, normal air movement Cardiovascular: nl pulses, regular rate and rhythm Gastrointestinal: nl liver, spleen, non-tender, soft Musculoskeletal: nl extremities to inspection, nl gait and stance Extremities: normal pulses 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: MANAGER BRIDGE II-XII intact, nl mental status, nl speech, nl strength Skin: nl turgor, No rash or lesions Lymph: nl lymph nodes Results Result Diagram: 01/18/17 0510 01/18/17 0510 Results 24 hrs Laboratory Tests Test 01/17/17 20:45 01/18/17 02:42 01/18/17 05:10 01/18/17 07:45 Bedside Glucose 329 H 236 H 208 White Blood Count 8.8 # Red Blood Count 3.34 L Hemoglobin 8.6 L Hematocrit 28.2 L Mean Corpuscular Volume 84.4 Mean Corpuscular Hemoglobin 25.7 L Mean Corpuscular Hemoglobin Concent 30.5 L Red Cell Distribution Width 16.9 H Platelet Count 138 L Mean Platelet Volume 11.2 H Neutrophils % 84.9 H Lymphocytes % 4.9 L Monocytes % 9.8 Eosinophils % 0.1 Basophils % 0.0 Nucleated Red Blood Cells % 0.2 H Neutrophils # 7.5 Lymphocytes # 0.4 L Monocytes # 0.9 Eosinophils # 0.0 Basophils # 0.0 Nucleated Red Blood Cells # 0.0 Sodium Level 136 Potassium Level 4.9 Chloride Level 102 Carbon Dioxide Level 25 Anion Gap 14 Blood Urea Nitrogen 97 H Creatinine 3.23 H Glucose Level 179 Calcium Level 8.4 Magnesium Level 3.3 H Test 01/18/17 11:58 01/18/17 17:10 Bedside Glucose 273 H 277 H Medications Medications Current Medications Atorvastatin Calcium (Lipitor) 20 mg HS PO Last administered on 01/12/17t 21:03 ; Admin Dose 20 MG; Start 01/07/17 at 21:00 Miscellaneous Information 1 ea NOTE XX ; Start 01/07/17 at 17:30 Glucose (Glutose) 15 gm Q15M PRN PO DECREASED GLUCOSE; Start 01/07/17 at 17:30 Glucose (Glutose) 22.5 gm Q15M PRN PO DECREASED GLUCOSE; Start 01/07/17 at 17: 30 Dextrose (D50w Syringe) 25 ml Q15M PRN IV DECREASED GLUCOSE; Start 01/07/17 at 17:30 Dextrose (D50w Syringe) 50 ml Q15M PRN IV DECREASED GLUCOSE; Start 01/07/17 at 17:30 Glucagon (Glucagen) 1 mg Q15M PRN IM DECREASED GLUCOSE; Start 01/07/17 at 17:30 Glucose (Glutose) 15 gm Q15M PRN BUCCAL DECREASED GLUCOSE; Start 01/07/17 at 17 :30 Nifedipine (Procardia Xl) 30 mg DAILY PO Last administered on 01/18/17 08:01; Admin Dose 30 MG; Start 01/08/17 at 09:00 Lactulose (Enulose) 20 gm HS PO Last administered on 01/17/17 21:01; Admin Dose 20 GM; Start 01/07/17 at 21:00 Docusate Sodium (Colace) 100 mg BID PRN PO CONSTIPATION Last administered on 09:10; Admin Dose 100 MG; Start 01/08/17 at 14:00 Acetaminophen (Tylenol Tab) 500 mg Q6H PRN PO PAIN AND OR ELEVATED TEMP Last administered on 01/18/17 13:38; Admin Dose 500 MG; Start 01/08/17 at 15:30 Acetaminophen/ Hydrocodone Bitart ([place] (5/325)) 1 tab Q4H PRN PO PAIN Last administered on 01/10/17 12:46; Admin Dose 1 TAB; Start 01/09/17 at 08:30 Methylprednisolone Sodium Succinate (Solu-Medrol) 40 mg DAILY IV Last administered on 01/18/17 08:01; Admin Dose 40 MG; Start 01/12/17 at 13:00 Diagnostic Test (Pha) (Accu-Chek) 1 ea 02 XX Last administered on 01/16/17 02: 05; Admin Dose 1 EA; Start 01/15/17 at 02:00 Heparin Sodium (Porcine) (Heparin (5000 Units/0.5 ml)) 5,000 unit BID SC Last administered on 01/18/17 08:08; Admin Dose 5,000 UNIT; Start 01/14/17 at 21:00 Insulin Aspart (Novolog Insulin Pen) 10 unit ONCE PRN SC ELEVATED GLUCOSE; Start 01/17/17 at 02:00 Insulin Glargine 30 unit 30 unit DAILY@20 SC Last administered on 01/17/17 20: 58; Admin Dose 30 UNIT; Start 01/17/17 at 20:00 Sodium Chloride (1/2 NS) 1,000 ml @ 75 mls/hr [id number] IV Last administered on 01/18/17 08:02; Admin Dose 75 MLS/HR; Start 01/17/17 at 17:00 STUART STANLEY MD Jan 18, 2017 17:27
[2017-01-18 20:00] VITALS: BP 131/73; PULSE 86; RESP 22
[2017-01-18] MEDS: INSULIN GLARGINE [LANtus] 3 ML PEN SC SCH (20:49)
[2017-01-18] MEDS: ATORVASTATIN 20 MG TAB PO SCH (20:49)
[2017-01-18] MEDS: LACTULOSE 30ML CUP PO SCH (21:00)
[2017-01-18] MEDS ORDERED: NITROGLYCERIN (SL) 0.4 MG TAB SL PRN (21:30)
[2017-01-18] MEDS ORDERED: LACTULOSE 30ML CUP PO ONE (21:30)
[2017-01-18] MEDS ORDERED: INSULIN ASPART [NOVOLOG] 3 ML PEN SC ONE (21:30)
--- NOTE | 2017-01-18 21:49 | RADRPT ---
PROCEDURE: XR Chest. CLINICAL INDICATION: Chest pain. TECHNIQUE: Portable AP upright view of the chest was obtained. COMPARISON: 01/07/2017 FINDINGS: The cardiomediastinal silhouette is enlarged. Diffuse interstitial edema is worse than on the prior study. Slight blunting of the costophrenic angles cannot exclude bilateral pleural effusions. The re is no evidence of pneumothorax. The osseous structures are intact with no evidence for acute abn ormality. Calcification is again seen RPTAT:HJJR IMPRESSION: Chronic congestive heart failure pattern appears worse compared to 01/07/2017. Physician Danilo Date Time Electronically viewed and signed by Physician Danilo on 01/18/2017 21:48 JR/
[2017-01-18 22:00] VITALS: BP 164/87; RESP 18
[2017-01-18 22:28] VITALS: PULSE 93
[2017-01-19] VITALS (11 sets, daily range): BP systolic 109–135; BP diastolic 55–73; PULSE 79–116; RESP 16–21
[2017-01-19] MEDS ORDERED: MAGNESIUM HYDROXIDE 30ML CUP PO ONE (01:30)
[2017-01-19] MEDS: HYDROCODONE/APAP (5/325) TAB PO PRN ×3 (01:40→21:41)
[2017-01-19] MEDS ORDERED: FUROSEMIDE 40 MG INJ IV ONE ×2 (02:00→09:30)
[2017-01-19] MEDS ORDERED: LORAZEPAM 0.5 MG TAB PO ONE (02:00)
[2017-01-19] MEDS: ACCU-CHEK XX SCH (02:01)
[2017-01-19] MEDS: ALBUTEROL/IPRATROPIUM (NEB) 3 ML AMP HHN PRN (02:10)
[2017-01-19 07:10] LABS: ADD SCAN DIFF NO
[2017-01-19 07:30] LABS: ABNORMAL IP MESSAGE 1; BASOPHILS % 0.1 % (0.0-2.0); EOSINOPHILS % 0.1 % (0.0-7.0); HEMATOCRIT 27.9 % (42.0-52.0); HEMOGLOBIN 8.5 g/dl (14.0-18.0); LYMPHOCYTES # 0.2 10^3/ul (0.8-2.9); LYMPHOCYTES % 1.1 % (15.0-51.0); MEAN CORPUSCULAR HEMOGLOBIN 25.4 pg (29.0-33.0); MEAN CORPUSCULAR HGB CONC 30.5 g/dl (32.0-37.0); MEAN CORPUSCULAR VOLUME 83.5 fl (82.0-101.0); MEAN PLATELET VOLUME 11.7 fl (7.4-10.4); MONOCYTES % 6.9 % (0.0-11.0); NUCLEATED RED BLOOD CELLS # 0.1 10^3/ul (0.0-0.0); NUCLEATED RED BLOOD CELLS% 0.4 /100WBC (0.0-0.0); PLATELET COUNT 108 10^3/UL (140-415); RED BLOOD COUNT 3.34 10^6/ul (4.70-6.10); RED CELL DISTRIBUTION WIDTH 16.9 % (11.5-14.5); WHITE BLOOD COUNT 14.2 10^3/ul (4.8-10.8)
[2017-01-19 07:33] LABS: INR 1.18; PARTIAL THROMBOPLASTIN TIME 30.6 Sec (25.0-35.0); PROTIME 15.1 Sec (12.2-14.2); PT RATIO 1.2
[2017-01-19] MEDS: ALBUTEROL/IPRATROPIUM (NEB) 3 ML AMP HHN SCH ×4 (07:36→19:12)
[2017-01-19 07:44] LABS: ALBUMIN 3.7 g/dl (3.3-4.9); ALBUMIN/GLOBULIN RATIO 0.94; BILIRUBIN,INDIRECT 0.3 mg/dl (0-1.1); BILIRUBIN,TOTAL 0.3 mg/dl (0.2-1.3); CALCIUM 8.4 mg/dl (8.4-10.2); CREATININE 3.16 mg/dl (0.61-1.24); POTASSIUM 4.4 mmol/L (3.5-5.1); TOTAL PROTEIN 7.6 g/dl (6.1-8.1)
[2017-01-19] MEDS: INSULIN ASPART [NOVOLOG] 3 ML PEN SC SCH ×4 (07:56→21:00)
[2017-01-19] MEDS: METHYLPREDNISOLONE 40 MG INJ IV SCH (08:41)
[2017-01-19] MEDS: NIFEdipine (XL) 30 MG TAB PO SCH (08:41)
[2017-01-19] MEDS: HEPARIN 5,000 UNIT/0.5 ML VIAL SC SCH ×2 (08:49→21:40)
[2017-01-19 09:22] LABS: Allen Test ACCEPTAB; Arterial Base Excess -2.3 mmol/L (-3.0-3); Arterial COHb 0.3 % (0.0-3.0); Arterial Fraction of Oxyhgb 92.3 % (93.0-99.0); Arterial HCO3 22.4 mmol/L (22.0-26.0); Arterial MetHb 0.4 % (0.0-1.5); Arterial Total Hemglobin 10.1 g/dl (12.0-18.0); MODE NASAL CANNULA
[2017-01-19 10:20] LABS: ADD UMIC YES; UR ASCORBIC ACID NEGATIVE (NEGATIVE); UR BACTERIA FEW /HPF (NONE SEEN); UR BILIRUBIN (Dip) NEGATIVE (NEGATIVE); UR BLOOD (Dip) 1+ mg/dL (NEGATIVE); UR CLARITY SLIGHTLY CLOUDY (CLEAR); UR COLOR YELLOW (YELLOW); UR GLUCOSE (Dip) 2+ mg/dL (NEGATIVE); UR KETONES (Dip) NEGATIVE (NEGATIVE); UR LEUKOCYTE ESTERASE (Dip) NEGATIVE Leu/ul (NEGATIVE); UR NITRITE (Dip) NEGATIVE (NEGATIVE); UR RBC 5 /HPF (0-5); UR SPECIFIC GRAVITY (Dip) 1.012 (1.003-1.030); UR TOTAL PROTEIN (Dip) 3+ mg/dl (NEGATIVE); UR UROBILINOGEN (Dip) NEGATIVE (NEGATIVE)
[2017-01-19] MEDS: CEFOTAXIME 1 GM/50 ML (PMX) 50 ML IVPB SCH ×2 (12:00→21:42)
--- NOTE | 2017-01-19 12:39 | CONS ---
Date/Time of Note Date/Time of Note DATE: 01/19/17 TIME: 12:26 Assessment/Plan Assessment/Plan Chief Complaint/Hosp Course Impression: 1. Chronic kidney disease. This patient has chronic kidney disease probably due to several factors. He does have a low urine sodium which would indicate poor renal perfusion, manifested by the high BUN /Creatinine ratio . This is probably related to his cirrhosis. He does have a good urine output which would be against the diagnosis of hepatorenal syndrome at this time. He does have proteinuria and therefore could have chronic glomerulonephritis which could be related to his hepatitis C. 2. 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 Hypertension 4. Hyperlipidemia 5. Anemia 6. Congestive heart failure 7. Obstructive sleep apnea Plan: 1. Start Bumex drip 2. Epogen for anemia 3. If renal function does not improve and/or urine output does not increase then we will have to consider dialysis. I will discuss this with the patient and the family. 4. I will follow patient along with you Problems: Consultation Date/Type/Reason Admit Date/Time Jan 07, 2017 at 10:13 Date of Consultation: Jan 19, 2017 Type of Consultation: renal Reason for Consultation chronic kidney disease . Constitutional: poor po, requiring O2 Eyes: no complaints ENT: no complaints Respiratory: shortness of breath Cardiovascular: edema Gastrointestinal: decreased appetite, other (+ ascites) Genitourinary: no complaints Musculoskeletal: no complaints Skin: no complaints Neurologic: no complaints Psychological: nl mood/affect, no complaints Past Medical History Medical History: no pertinent history, congestive heart failure, hepatitis, hypertension, renal disease Past Surgical History Past Surgical Hx: appendectomy Family History Significant Family History: no pertinent family hx Social History Alcohol Use: none Smoking Status: Former smoker Exam/Review of Systems Vital Signs Vitals Vital Signs Date Time Temp Pulse Resp B/P Pulse Ox O2 Delivery O2 Flow Rate FiO2 01/19/17 12:10 79 01/19/17 11:03 99.1 20 109/55 99 Nasal Cannula 2.0 01/19/17 02:12 28 Intake and Output 01/18/17 01/18/17 01/19/17 15:00 23:00 07:00 Intake Total 1780 ml 900 ml Output Total 1150 ml 400 ml Balance 630 ml 500 ml Exam Constitutional: distress, frail, obese Respiratory: crackles/rales, diminished breath sounds Cardiovascular: edema, regular rate and rhythm Gastrointestinal: ascites, distended, non-tender Extremities: edema 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: lethargic Results Result Diagram: 01/19/17 0630 01/19/17 0630 Results 24 hrs Laboratory Tests Test 01/18/17 16:30 01/18/17 17:10 01/18/17 20:41 01/18/17 21:02 Urine Random Sodium < 13 L Urine Total Protein 497.0 H Bedside Glucose 277 H 326 H Blood Gas Specimen Source Blood arterial Arterial Blood Date Drawn 01/18/2017 9:25:00 PM Arterial Blood pH (Temp corrected) 7.389 Arterial Blood pCO2 (Temp correct) 37.9 Arterial Blood pO2 (Temp corrected) 69.7 L Arterial Blood HCO3 22.4 Arterial Blood Base Excess -2.3 Arterial Blood Oxygen Saturation 93.0 L Oswaldo Test ACCEPTAB Arterial Blood Gas Puncture Site Right Radial Arterial Blood Carboxyhemoglobin 0.3 Arterial Blood Methemoglobin 0.4 Blood Gas A-a O2 Differential 78.0 H Oxyhemoglobin Percent 92.3 L Total Hemoglobin 10.1 L Blood Gas Temperature 37.0 Blood Gas Modality NASAL CANNULA FiO2 27.0 Blood Gas Notified Whom T KASSAII Blood Gas Notified Time 01/18/2017 9:37:00 PM Test 01/18/17 21:25 01/19/17 01:27 01/19/17 03:00 01/19/17 06:30 Troponin I 0.078 0.131 *H Bedside Glucose 275 H Urine Color YELLOW Urine Clarity SLIGHTLY CLOUDY A Urine pH 5.0 Urine Specific [place] 1.012 Urine Ketones NEGATIVE Urine Nitrite NEGATIVE Urine Bilirubin NEGATIVE Urine Urobilinogen NEGATIVE Urine Leukocyte Esterase NEGATIVE Urine Microscopic RBC 5 Urine Microscopic WBC 3 Urine Bacteria FEW A Urine Hemoglobin 1+ H Urine Glucose 2+ H Urine Total Protein 3+ H White Blood Count 14.2 #H Red Blood Count 3.34 L Hemoglobin 8.5 L Hematocrit 27.9 L Mean Corpuscular Volume 83.5 Mean Corpuscular Hemoglobin 25.4 L Mean Corpuscular Hemoglobin Concent 30.5 L Red Cell Distribution Width 16.9 H Platelet Count 108 #L Mean Platelet Volume 11.7 H Neutrophils % 91.0 H Lymphocytes % 1.1 L Monocytes % 6.9 Eosinophils % 0.1 Basophils % 0.1 Nucleated Red Blood Cells % 0.4 H Neutrophils # 13.0 H Lymphocytes # 0.2 L Monocytes # 1.0 H Eosinophils # 0.0 Basophils # 0.0 Nucleated Red Blood Cells # 0.1 H Prothrombin Time 15.1 H Prothrombin Time Ratio 1.2 INR International Normalized Ratio 1.18 Activated Partial Thromboplast Time 30.6 Sodium Level 134 L Potassium Level 4.4 Chloride Level 102 Carbon Dioxide Level 25 Anion Gap 11 Blood Urea Nitrogen 98 H Creatinine 3.16 H Glucose Level 206 Lactic Acid Level 2.0 Calcium Level 8.4 Magnesium Level 3.1 H Total Bilirubin 0.3 Direct Bilirubin 0.00 Indirect Bilirubin 0.3 Aspartate Amino Transf (AST/SGOT) 43 Alanine Aminotransferase (ALT/SGPT) 50 Alkaline Phosphatase 135 H Total Protein 7.6 Albumin 3.7 Globulin 3.90 H Albumin/Globulin Ratio 0.94 Test 01/19/17 07:51 Bedside Glucose 158 Medications Medications Current Medications Atorvastatin Calcium (Lipitor) 20 mg HS PO Last administered on 01/12/17 21:03 ; Admin Dose 20 MG; Start 01/07/17 at 21:00 Miscellaneous Information 1 ea NOTE XX ; Start 01/07/17 at 17:30 Glucose (Glutose) 15 gm Q15M PRN PO DECREASED GLUCOSE; Start 01/07/17 at 17:30 Glucose (Glutose) 22.5 gm Q15M PRN PO DECREASED GLUCOSE; Start 01/07/17 at 17: 30 Dextrose (D50w Syringe) 25 ml Q15M PRN IV DECREASED GLUCOSE; Start 01/07/17 at 17:30 Dextrose (D50w Syringe) 50 ml Q15M PRN IV DECREASED GLUCOSE; Start 01/07/17 at 17:30 Glucagon (Glucagen) 1 mg Q15M PRN IM DECREASED GLUCOSE; Start 01/07/17 at 17:30 Glucose (Glutose) 15 gm Q15M PRN BUCCAL DECREASED GLUCOSE; Start 01/07/17 at 17 :30 Nifedipine (Procardia Xl) 30 mg DAILY PO Last administered on 01/19/17 08:41; Admin Dose 30 MG; Start 01/08/17 at 09:00 Lactulose (Enulose) 20 gm HS PO Last administered on 01/17/17 21:01; Admin Dose 20 GM; Start 01/07/17 at 21:00 Docusate Sodium (Colace) 100 mg BID PRN PO CONSTIPATION Last administered on 09:10; Admin Dose 100 MG; Start 01/08/17 at 14:00 Acetaminophen (Tylenol Tab) 500 mg Q6H PRN PO PAIN AND OR ELEVATED TEMP Last administered on 01/18/17 13:38; Admin Dose 500 MG; Start 01/08/17 at 15:30 Acetaminophen/ Hydrocodone Bitart ([place] (5/325)) 1 tab Q4H PRN PO PAIN Last administered on 01/19/17 07:48; Admin Dose 1 TAB; Start 01/09/17 at 08:30 Methylprednisolone Sodium Succinate (Solu-Medrol) 40 mg DAILY IV Last administered on 01/19/17 08:41; Admin Dose 40 MG; Start 01/12/17 at 13:00 Diagnostic Test (Pha) (Accu-Chek) 1 ea 02 XX Last administered on 01/19/17 02: 01; Admin Dose 1 EA; Start 01/15/17 at 02:00 Heparin Sodium (Porcine) (Heparin (5000 Units/0.5 ml)) 5,000 unit BID SC Last administered on 01/19/17 08:49; Admin Dose 5,000 UNIT; Start 01/14/17 at 21:00 Insulin Aspart (Novolog Insulin Pen) 10 unit ONCE PRN SC ELEVATED GLUCOSE; Start 01/17/17 at 02:00 Insulin Glargine 30 unit 30 unit DAILY@20 SC Last administered on 01/18/17 20: 49; Admin Dose 30 UNIT; Start 01/17/17 at 20:00 Sodium Chloride (1/2 NS) 1,000 ml @ 40 mls/hr Q24H IV Last administered on 01/18 21:32; Admin Dose 75 MLS/HR; Start 01/17/17 at 17:00; Status Future Hold Nitroglycerin 1 tab 1 tab Q5M PRN SL ANGINA; Start 01/18/17 at 21:30 Cefotaxime Sodium ([place] 1gm/50 ml (Pmx)) 50 ml @ 100 mls/hr Q12 IVPB ; Start 01/19/17 at 12:00 ANA MELENDEZ MD Jan 19, 2017 12:38
--- NOTE | 2017-01-19 13:02 | CONS ---
Date/Time of Note Date/Time of Note DATE: 01/19/17 TIME: 12:50 Assessment/Plan Assessment/Plan Chief Complaint/Hosp Course 1)Liver cirrhosis with portal HTN due to Hep C to repeat ammonia level 2) CHF unable to tolerate lasix with worsening renal function 3) r/o SBP pt to get paracentesis later today cefotaxime was started by the primary if fevers not improving will broaden the coverage 4) new onset fever with leukocytosis pt has been on steroids but this does not explain the new fever the potential sources would include, ascitic fluid, lung urinalysis does not suggest an infection will order beta d glucan, aspergillus galactomannan, procalcitonin in a.m. will order LE dopplers to make sure no DVT has developed if cefotaxime does not improve his fever, wbc then will broaden coverage to include lung infection Problems: Consultation Date/Type/Reason Admit Date/Time Jan 07, 2017 at 10:13 Date of Consultation: Jan 19, 2017 Type of Consultation: ID Hx of Present Illness pt was admitted with slowly increasing SOB, No prior F, C, NS He did have a cough of whitish phlegm Since admission he was gotten more SOB and his renal function was worsened. He has more swelling to legs and abd since admission No reports dysuria, (just got a sykes cath) No D, V Constitutional: poor po, requiring O2 Eyes: no complaints ENT: no complaints Respiratory: shortness of breath Cardiovascular: edema Gastrointestinal: decreased appetite, other (+ ascites) Genitourinary: no complaints Musculoskeletal: no complaints Skin: no complaints Neurologic: no complaints Psychological: nl mood/affect, no complaints Past Medical History cirrhosis Medical History: no pertinent history, congestive heart failure, hepatitis, hypertension, renal disease Past Surgical History Past Surgical Hx: appendectomy Social History Alcohol Use: none Smoking Status: Former smoker Exam/Review of Systems Vital Signs Vitals Vital Signs Date Time Temp Pulse Resp B/P Pulse Ox O2 Delivery O2 Flow Rate FiO2 01/19/17 12:10 79 01/19/17 11:03 99.1 20 109/55 99 Nasal Cannula 2.0 01/19/17 02:12 28 Intake and Output 01/18/17 01/18/17 01/19/17 15:00 23:00 07:00 Intake Total 1780 ml 900 ml Output Total 1150 ml 400 ml Balance 630 ml 500 ml Exam pt is sleepy but awakens and follows directions but questions are answered by his family Head: normocephalic ENMT: mucosa pink and moist Respiratory: other (clear but distant) Cardiovascular: regular rate and rhythm Gastrointestinal: distended, soft Extremities: other (diffuse edema, L calf is larger than R calf) Results Result Diagram: 01/19/17 0630 01/19/17 0630 Results 24 hrs Laboratory Tests Test 01/18/17 16:30 01/18/17 17:10 01/18/17 20:41 01/18/17 21:02 Urine Random Sodium < 13 L Urine Total Protein 497.0 H Bedside Glucose 277 H 326 H Blood Gas Specimen Source Blood arterial Arterial Blood Date Drawn 01/18/2017 9:25:00 PM Arterial Blood pH (Temp corrected) 7.389 Arterial Blood pCO2 (Temp correct) 37.9 Arterial Blood pO2 (Temp corrected) 69.7 L Arterial Blood HCO3 22.4 Arterial Blood Base Excess -2.3 Arterial Blood Oxygen Saturation 93.0 L Oswaldo Test ACCEPTAB Arterial Blood Gas Puncture Site Right Radial Arterial Blood Carboxyhemoglobin 0.3 Arterial Blood Methemoglobin 0.4 Blood Gas A-a O2 Differential 78.0 H Oxyhemoglobin Percent 92.3 L Total Hemoglobin 10.1 L Blood Gas Temperature 37.0 Blood Gas Modality NASAL CANNULA FiO2 27.0 Blood Gas Notified Whom T BREANNA Blood Gas Notified Time 01/18/2017 9:37:00 PM Test 01/18/17 21:25 01/19/17 01:27 01/19/17 03:00 01/19/17 06:30 Troponin I 0.078 0.131 *H Bedside Glucose 275 H Urine Color YELLOW Urine Clarity SLIGHTLY CLOUDY A Urine pH 5.0 Urine Specific [place] 1.012 Urine Ketones NEGATIVE Urine Nitrite NEGATIVE Urine Bilirubin NEGATIVE Urine Urobilinogen NEGATIVE Urine Leukocyte Esterase NEGATIVE Urine Microscopic RBC 5 Urine Microscopic WBC 3 Urine Bacteria FEW A Urine Hemoglobin 1+ H Urine Glucose 2+ H Urine Total Protein 3+ H White Blood Count 14.2 #H Red Blood Count 3.34 L Hemoglobin 8.5 L Hematocrit 27.9 L Mean Corpuscular Volume 83.5 Mean Corpuscular Hemoglobin 25.4 L Mean Corpuscular Hemoglobin Concent 30.5 L Red Cell Distribution Width 16.9 H Platelet Count 108 #L Mean Platelet Volume 11.7 H Neutrophils % 91.0 H Lymphocytes % 1.1 L Monocytes % 6.9 Eosinophils % 0.1 Basophils % 0.1 Nucleated Red Blood Cells % 0.4 H Neutrophils # 13.0 H Lymphocytes # 0.2 L Monocytes # 1.0 H Eosinophils # 0.0 Basophils # 0.0 Nucleated Red Blood Cells # 0.1 H Prothrombin Time 15.1 H Prothrombin Time Ratio 1.2 INR International Normalized Ratio 1.18 Activated Partial Thromboplast Time 30.6 Sodium Level 134 L Potassium Level 4.4 Chloride Level 102 Carbon Dioxide Level 25 Anion Gap 11 Blood Urea Nitrogen 98 H Creatinine 3.16 H Glucose Level 206 Lactic Acid Level 2.0 Calcium Level 8.4 Magnesium Level 3.1 H Total Bilirubin 0.3 Direct Bilirubin 0.00 Indirect Bilirubin 0.3 Aspartate Amino Transf (AST/SGOT) 43 Alanine Aminotransferase (ALT/SGPT) 50 Alkaline Phosphatase 135 H Total Protein 7.6 Albumin 3.7 Globulin 3.90 H Albumin/Globulin Ratio 0.94 Test 01/19/17 07:51 Bedside Glucose 158 Medications Medications Current Medications Atorvastatin Calcium (Lipitor) 20 mg HS PO Last administered on 01/12/17 21:03 ; Admin Dose 20 MG; Start 01/07/17 at 21:00 Miscellaneous Information 1 ea NOTE XX ; Start 01/07/17 at 17:30 Glucose (Glutose) 15 gm Q15M PRN PO DECREASED GLUCOSE; Start 01/07/17 at 17:30 Glucose (Glutose) 22.5 gm Q15M PRN PO DECREASED GLUCOSE; Start 01/07/17 at 17: 30 Dextrose (D50w Syringe) 25 ml Q15M PRN IV DECREASED GLUCOSE; Start 01/07/17 at 17:30 Dextrose (D50w Syringe) 50 ml Q15M PRN IV DECREASED GLUCOSE; Start 01/07/17 at 17:30 Glucagon (Glucagen) 1 mg Q15M PRN IM DECREASED GLUCOSE; Start 01/07/17 at 17:30 Glucose (Glutose) 15 gm Q15M PRN BUCCAL DECREASED GLUCOSE; Start 01/07/17 at 17 :30 Nifedipine (Procardia Xl) 30 mg DAILY PO Last administered on 01/19/17 08:41; Admin Dose 30 MG; Start 01/08/17 at 09:00 Lactulose (Enulose) 20 gm HS PO Last administered on 01/17/17 21:01; Admin Dose 20 GM; Start 01/07/17 at 21:00 Docusate Sodium (Colace) 100 mg BID PRN PO CONSTIPATION Last administered on 09:10; Admin Dose 100 MG; Start 01/08/17 at 14:00 Acetaminophen (Tylenol Tab) 500 mg Q6H PRN PO PAIN AND OR ELEVATED TEMP Last administered on 01/18/17 13:38; Admin Dose 500 MG; Start 01/08/17 at 15:30 Acetaminophen/ Hydrocodone Bitart ([place] (5/325)) 1 tab Q4H PRN PO PAIN Last administered on 01/19/17 07:48; Admin Dose 1 TAB; Start 01/09/17 at 08:30 Methylprednisolone Sodium Succinate (Solu-Medrol) 40 mg DAILY IV Last administered on 01/19/17 08:41; Admin Dose 40 MG; Start 01/12/17 at 13:00 Diagnostic Test (Pha) (Accu-Chek) 1 ea 02 XX Last administered on 01/19/17 02: 01; Admin Dose 1 EA; Start 01/15/17 at 02:00 Heparin Sodium (Porcine) (Heparin (5000 Units/0.5 ml)) 5,000 unit BID SC Last administered on 01/19/17 08:49; Admin Dose 5,000 UNIT; Start 01/14/17 at 21:00 Insulin Aspart (Novolog Insulin Pen) 10 unit ONCE PRN SC ELEVATED GLUCOSE; Start 01/17/17 at 02:00 Insulin Glargine 30 unit 30 unit DAILY@20 SC Last administered on 01/18/17 20: 49; Admin Dose 30 UNIT; Start 01/17/17 at 20:00 Sodium Chloride (1/2 NS) 1,000 ml @ 40 mls/hr Q24H IV Last administered on 01/18 21:32; Admin Dose 75 MLS/HR; Start 01/17/17 at 17:00; Status Future Hold Nitroglycerin 1 tab 1 tab Q5M PRN SL ANGINA; Start 01/18/17 at 21:30 Cefotaxime Sodium 50 ml @ 100 mls/hr Q12 IVPB ; Start 01/19/17 at 12:00 Bumetanide/ Dextrose (Bumex/D5W) 250 ml @ 10 mls/hr Q24H IV ; Start 01/19/17 at 13:00; Status UNV Epoetin Sean (Epogen (Esrd)) 10,000 units MoWeFr@17 SC ; Start 01/19/17 at 17:00 ; Status UNV DANYEL HART MD Jan 19, 2017 13:00
--- NOTE | 2017-01-19 13:43 | RADRPT ---
Vent Rate: 93 bpm RR Interval: 0 msec MA Interval: 172 msec QRS Duration: 96 msec QT Interval: 392 msec QTC Interval: 487 msec P-R-T [place]: 30 - -4 - 48 degrees Normal sinus rhythm Septal infarct , age undetermined Abnormal ECG Electronically Signed By: Matti Lo [id number]
[2017-01-19] MEDS: BUMETANIDE 25 MG in DEXTROSE 5% 150 ML IV SCH (14:09)
[2017-01-19 14:42] LABS: IRON < 10 ug/dl (35-150)
[2017-01-19 14:49] LABS: TOTAL IRON BINDING CAPACITY 297 ug/dl (241-421)
--- NOTE | 2017-01-19 15:11 | CONS ---
Date/Time of Note Date/Time of Note DATE: 01/19/17 TIME: 15:10 Consult Date/Type/Reason Admit Date/Time Jan 07, 2017 at 10:13 Initial Consult Date 01/09/17 Type of Consultation: Pulmonary Ordering Provider: JENY MORA MD Subjective Complaining of increasing abdominal distention with subsequent shortness of breath Objective Vital Signs Date Time Temp Pulse Resp B/P Pulse Ox O2 Delivery O2 Flow Rate FiO2 01/19/17 13:12 89 26 96 Nasal Cannula 2.0 01/19/17 11:03 99.1 109/55 01/19/17 02:12 28 Intake and Output 01/18/17 01/18/17 01/19/17 15:00 23:00 07:00 Intake Total 1780 ml 900 ml Output Total 1150 ml 400 ml Balance 630 ml 500 ml Exam GENERAL: Obese gentleman comfortable at rest VITAL SIGNS: per chart NECK: Supple. No JVD or lymphadenopathy. CARDIAC EXAM: S1, S2. No added sounds or murmurs. CHEST: clear bilaterally, No added sounds, rales or wheezes ABDOMEN: Significant obesity distended palpable ascites EXTREMITIES: No cyanosis, clubbing or edema +2 NEUROLOGIC: Generalized weakness. No focal deficits. Results/Medications Result Diagram: 01/19/17 0630 01/19/17 0630 Results 24 hrs Laboratory Tests Test 01/18/17 16:30 01/18/17 17:10 01/18/17 20:41 01/18/17 21:02 Urine Random Sodium < 13 L Urine Total Protein 497.0 H Bedside Glucose 277 H 326 H Blood Gas Specimen Source Blood arterial Arterial Blood Date Drawn 01/18/2017 9:25:00 PM Arterial Blood pH (Temp corrected) 7.389 Arterial Blood pCO2 (Temp correct) 37.9 Arterial Blood pO2 (Temp corrected) 69.7 L Arterial Blood HCO3 22.4 Arterial Blood Base Excess -2.3 Arterial Blood Oxygen Saturation 93.0 L Oswaldo Test ACCEPTAB Arterial Blood Gas Puncture Site Right Radial Arterial Blood Carboxyhemoglobin 0.3 Arterial Blood Methemoglobin 0.4 Blood Gas A-a O2 Differential 78.0 H Oxyhemoglobin Percent 92.3 L Total Hemoglobin 10.1 L Blood Gas Temperature 37.0 Blood Gas Modality NASAL CANNULA FiO2 27.0 Blood Gas Notified Whom T BREANNA Blood Gas Notified Time 01/18/2017 9:37:00 PM Test 01/18/17 21:25 01/19/17 01:27 01/19/17 03:00 01/19/17 06:30 Troponin I 0.078 0.131 *H Bedside Glucose 275 H Urine Color YELLOW Urine Clarity SLIGHTLY CLOUDY A Urine pH 5.0 Urine Specific [place] 1.012 Urine Ketones NEGATIVE Urine Nitrite NEGATIVE Urine Bilirubin NEGATIVE Urine Urobilinogen NEGATIVE Urine Leukocyte Esterase NEGATIVE Urine Microscopic RBC 5 Urine Microscopic WBC 3 Urine Bacteria FEW A Urine Hemoglobin 1+ H Urine Glucose 2+ H Urine Total Protein 3+ H White Blood Count 14.2 #H Red Blood Count 3.34 L Hemoglobin 8.5 L Hematocrit 27.9 L Mean Corpuscular Volume 83.5 Mean Corpuscular Hemoglobin 25.4 L Mean Corpuscular Hemoglobin Concent 30.5 L Red Cell Distribution Width 16.9 H Platelet Count 108 #L Mean Platelet Volume 11.7 H Neutrophils % 91.0 H Lymphocytes % 1.1 L Monocytes % 6.9 Eosinophils % 0.1 Basophils % 0.1 Nucleated Red Blood Cells % 0.4 H Neutrophils # 13.0 H Lymphocytes # 0.2 L Monocytes # 1.0 H Eosinophils # 0.0 Basophils # 0.0 Nucleated Red Blood Cells # 0.1 H Prothrombin Time 15.1 H Prothrombin Time Ratio 1.2 INR International Normalized Ratio 1.18 Activated Partial Thromboplast Time 30.6 Sodium Level 134 L Potassium Level 4.4 Chloride Level 102 Carbon Dioxide Level 25 Anion Gap 11 Blood Urea Nitrogen 98 H Creatinine 3.16 H Glucose Level 206 Lactic Acid Level 2.0 Calcium Level 8.4 Magnesium Level 3.1 H Total Bilirubin 0.3 Direct Bilirubin 0.00 Indirect Bilirubin 0.3 Aspartate Amino Transf (AST/SGOT) 43 Alanine Aminotransferase (ALT/SGPT) 50 Alkaline Phosphatase 135 H Total Protein 7.6 Albumin 3.7 Globulin 3.90 H Albumin/Globulin Ratio 0.94 Test 01/19/17 07:51 01/19/17 12:29 01/19/17 14:10 Bedside Glucose 158 184 Iron Level < 10 L Total Iron Binding Capacity 297 Percent Iron Saturation Ferritin Pending Parathyroid Hormone (Intact) Medications Current Medications Atorvastatin Calcium (Lipitor) 20 mg HS PO Last administered on 01/12/17t 21:03 ; Admin Dose 20 MG; Start 01/07/17 at 21:00 Miscellaneous Information 1 ea NOTE XX ; Start 01/07/17 at 17:30 Glucose (Glutose) 15 gm Q15M PRN PO DECREASED GLUCOSE; Start 01/07/17 at 17:30 Glucose (Glutose) 22.5 gm Q15M PRN PO DECREASED GLUCOSE; Start 01/07/17 at 17: 30 Dextrose (D50w Syringe) 25 ml Q15M PRN IV DECREASED GLUCOSE; Start 01/07/17 at 17:30 Dextrose (D50w Syringe) 50 ml Q15M PRN IV DECREASED GLUCOSE; Start 01/07/17 at 17:30 Glucagon (Glucagen) 1 mg Q15M PRN IM DECREASED GLUCOSE; Start 01/07/17 at 17:30 Glucose (Glutose) 15 gm Q15M PRN BUCCAL DECREASED GLUCOSE; Start 01/07/17 at 17 :30 Nifedipine (Procardia Xl) 30 mg DAILY PO Last administered on 01/19/17 08:41; Admin Dose 30 MG; Start 01/08/17 at 09:00 Lactulose (Enulose) 20 gm HS PO Last administered on 01/17/17 21:01; Admin Dose 20 GM; Start 01/07/17 at 21:00 Docusate Sodium (Colace) 100 mg BID PRN PO CONSTIPATION Last administered on 09:10; Admin Dose 100 MG; Start 01/08/17 at 14:00 Acetaminophen (Tylenol Tab) 500 mg Q6H PRN PO PAIN AND OR ELEVATED TEMP Last administered on 01/18/17 13:38; Admin Dose 500 MG; Start 01/08/17 at 15:30 Acetaminophen/ Hydrocodone Bitart ([place] (5/325)) 1 tab Q4H PRN PO PAIN Last administered on 01/19/17 07:48; Admin Dose 1 TAB; Start 01/09/17 at 08:30 Methylprednisolone Sodium Succinate (Solu-Medrol) 40 mg DAILY IV Last administered on 01/19/17 08:41; Admin Dose 40 MG; Start 01/12/17 at 13:00 Diagnostic Test (Pha) (Accu-Chek) 1 ea 02 XX Last administered on 01/19/17 02: 01; Admin Dose 1 EA; Start 01/15/17 at 02:00 Heparin Sodium (Porcine) (Heparin (5000 Units/0.5 ml)) 5,000 unit BID SC Last administered on 01/19/17 08:49; Admin Dose 5,000 UNIT; Start 01/14/17 at 21:00 Insulin Aspart (Novolog Insulin Pen) 10 unit ONCE PRN SC ELEVATED GLUCOSE; Start 01/17/17 at 02:00 Insulin Glargine 30 unit 30 unit DAILY@20 SC Last administered on 01/18/17 20: 49; Admin Dose 30 UNIT; Start 01/17/17 at 20:00 Sodium Chloride (1/2 NS) 1,000 ml @ 40 mls/hr Q24H IV Last administered on 01/18 21:32; Admin Dose 75 MLS/HR; Start 01/17/17 at 17:00; Status Future Hold Nitroglycerin 1 tab 1 tab Q5M PRN SL ANGINA; Start 01/18/17 at 21:30 Cefotaxime Sodium 50 ml @ 100 mls/hr Q12 IVPB ; Start 01/19/17 at 12:00 Bumetanide/ Dextrose (Bumex/D5W) 250 ml @ 10 mls/hr Q24H IV Last administered on 01/19/17 14:09; Admin Dose 10 MLS/HR; Start 01/19/17 at 14:30 Epoetin Sean (Epogen (Esrd)) 10,000 units MoWeFr@17 SC ; Start 01/19/17 at 17:00 Assessment/Plan Chief Complaint/Hosp Course IMP: 1. Dyspnea--likely multifactorial, however, a component of asthma +/- ABPA present. + high IgE and + IgG for aspergillus and mucoid impaction on prior CT probable significant component secondary to obesity and possible underlying ascites from cirrhosis. 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 YEVGENIY 4. CKD RECS: 1. BD's 2. CS 3. CPAP as tolerated 4. Encourage out of bed 5. gentle diuresis. 7. Agree with paracentesis Problems: GU[facility] RESENDIZ [facility] Jan 19, 2017 15:11
[2017-01-19 15:15] LABS: FERRITIN 20.5 ng/ml (11.1-264.0)
[2017-01-19 15:16] LABS: PROTEIN/CREAT RATIO 6.99 RATIO
--- NOTE | 2017-01-19 15:57 | CONS ---
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 - Elevated trop- atypical cp, ekg without acute abnl, no changes from admit. also with renal failure ? type ii vs type i nstemi. will trend trop/ekg. would not recommend invasive testing at this time given renal failure and risk for WILBERT /progression to dialysis. 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 cont to monitor. Problems: Consultation Date/Type/Reason Admit Date/Time Jan 07, 2017 at 10:13 Initial Consult Date 01/09/17 Type of Consultation: cardiology Referring Provider: JENY MORA MD 24 HR Interval Summary Free Text/Dictation pt with increased sob and abd distention. does have some mild L chest pain he states. no n/v, sweating. no palpitations. ekg with NSR, poor r wave progression. no acute abnl. pt with low level trop elevation. repeat pending. pt hd stable, comfortable sleeping mostly. snoring + . denies pnd, orthopnea. tele reviewed: NSR Detailed Summary Eyes: no complaints ENT: no complaints Respiratory: shortness of breath Cardiovascular: chest pain Gastrointestinal: other (+ abd girth) Exam/Review of Systems Vital Signs Vitals Vital Signs Date Time Temp Pulse Resp B/P Pulse Ox O2 Delivery O2 Flow Rate FiO2 01/19/17 15:27 97.2 85 18 135/66 93 01/19/17 13:12 Nasal Cannula 2.0 01/19/17 02:12 28 Intake and Output 01/18/17 01/18/17 01/19/17 15:00 23:00 07:00 Intake Total 1780 ml 900 ml Output Total 1150 ml 400 ml Balance 630 ml 500 ml Exam Constitutional: alert, obese, oriented Psych: nl mood/affect, no complaints Head: normocephalic Eyes: icteric ENMT: mucosa pink and moist, nl external ears & nose Neck: non-tender, supple Respiratory: crackles in bases Cardiovascular: edema (2+ pitting to legs/thighs), nl pulses, regular rate and rhythm, systolic murmur, No bruits, No diastolic murmur, No irregular rhythm, No jugular venous distention (JVD) Gastrointestinal: ascites, distended, hepatomegaly, soft Extremities: normal pulses 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: PANEL GLUER II-XII intact, nl mental status Results Result Diagram: 01/19/1730 01/19/1730 Results 24 hrs Laboratory Tests Test 01/18/17 16:30 01/18/17 17:10 01/18/17 20:41 01/18/17 21:02 Urine Random Sodium < 13 L Urine Total Protein 497.0 H Bedside Glucose 277 H 326 H Blood Gas Specimen Source Blood arterial Arterial Blood Date Drawn 01/18/2017 9:25:00 PM Arterial Blood pH (Temp corrected) 7.389 Arterial Blood pCO2 (Temp correct) 37.9 Arterial Blood pO2 (Temp corrected) 69.7 L Arterial Blood HCO3 22.4 Arterial Blood Base Excess -2.3 Arterial Blood Oxygen Saturation 93.0 L Oswaldo Test ACCEPTAB Arterial Blood Gas Puncture Site Right Radial Arterial Blood Carboxyhemoglobin 0.3 Arterial Blood Methemoglobin 0.4 Blood Gas A-a O2 Differential 78.0 H Oxyhemoglobin Percent 92.3 L Total Hemoglobin 10.1 L Blood Gas Temperature 37.0 Blood Gas Modality NASAL CANNULA FiO2 27.0 Blood Gas [facility] Notified Time 01/18/2017 9:37:00 PM Test 01/18/17 21:25 01/19/17 01:27 01/19/17 03:00 01/19/17 06:30 Troponin I 0.078 0.131 *H Bedside Glucose 275 H Urine Color YELLOW Urine Clarity SLIGHTLY CLOUDY A Urine pH 5.0 Urine Specific [place] 1.012 Urine Ketones NEGATIVE Urine Nitrite NEGATIVE Urine Bilirubin NEGATIVE Urine Urobilinogen NEGATIVE Urine Leukocyte Esterase NEGATIVE Urine Microscopic RBC 5 Urine Microscopic WBC 3 Urine Bacteria FEW A Urine Hemoglobin 1+ H Urine Random Creatinine 70.35 Urine Protein/Creatinine Ratio 6.99 Urine Glucose 2+ H Urine Total Protein 492.0 H White Blood Count 14.2 #H Red Blood Count 3.34 L Hemoglobin 8.5 L Hematocrit 27.9 L Mean Corpuscular Volume 83.5 Mean Corpuscular Hemoglobin 25.4 L Mean Corpuscular Hemoglobin Concent 30.5 L Red Cell Distribution Width 16.9 H Platelet Count 108 #L Mean Platelet Volume 11.7 H Neutrophils % 91.0 H Lymphocytes % 1.1 L Monocytes % 6.9 Eosinophils % 0.1 Basophils % 0.1 Nucleated Red Blood Cells % 0.4 H Neutrophils # 13.0 H Lymphocytes # 0.2 L Monocytes # 1.0 H Eosinophils # 0.0 Basophils # 0.0 Nucleated Red Blood Cells # 0.1 H Prothrombin Time 15.1 H Prothrombin Time Ratio 1.2 INR International Normalized Ratio 1.18 Activated Partial Thromboplast Time 30.6 Sodium Level 134 L Potassium Level 4.4 Chloride Level 102 Carbon Dioxide Level 25 Anion Gap 11 Blood Urea Nitrogen 98 H Creatinine 3.16 H Glucose Level 206 Lactic Acid Level 2.0 Calcium Level 8.4 Magnesium Level 3.1 H Total Bilirubin 0.3 Direct Bilirubin 0.00 Indirect Bilirubin 0.3 Aspartate Amino Transf (AST/SGOT) 43 Alanine Aminotransferase (ALT/SGPT) 50 Alkaline Phosphatase 135 H Total Protein 7.6 Albumin 3.7 Globulin 3.90 H Albumin/Globulin Ratio 0.94 Test 01/19/17 07:51 01/19/17 12:29 01/19/17 14:10 Bedside Glucose 158 184 Iron Level < 10 L Total Iron Binding Capacity 297 Percent Iron Saturation Ferritin 20.5 Parathyroid Hormone (Intact) Medications Medications Current Medications Atorvastatin Calcium (Lipitor) 20 mg HS PO Last administered on 01/12/17 21:03 ; Admin Dose 20 MG; Start 01/07/17 at 21:00 Miscellaneous Information 1 ea NOTE XX ; Start 01/07/17 at 17:30 Glucose (Glutose) 15 gm Q15M PRN PO DECREASED GLUCOSE; Start 01/07/17 at 17:30 Glucose (Glutose) 22.5 gm Q15M PRN PO DECREASED GLUCOSE; Start 01/07/17 at 17: 30 Dextrose (D50w Syringe) 25 ml Q15M PRN IV DECREASED GLUCOSE; Start 01/07/17 at 17:30 Dextrose (D50w Syringe) 50 ml Q15M PRN IV DECREASED GLUCOSE; Start 01/07/17 at 17:30 Glucagon (Glucagen) 1 mg Q15M PRN IM DECREASED GLUCOSE; Start 01/07/17 at 17:30 Glucose (Glutose) 15 gm Q15M PRN BUCCAL DECREASED GLUCOSE; Start 01/07/17 at 17 :30 Nifedipine (Procardia Xl) 30 mg DAILY PO Last administered on 01/19/17 08:41; Admin Dose 30 MG; Start 01/08/17 at 09:00 Lactulose (Enulose) 20 gm HS PO Last administered on 01/17/17 21:01; Admin Dose 20 GM; Start 01/07/17 at 21:00 Docusate Sodium (Colace) 100 mg BID PRN PO CONSTIPATION Last administered on 09:10; Admin Dose 100 MG; Start 01/08/17 at 14:00 Acetaminophen (Tylenol Tab) 500 mg Q6H PRN PO PAIN AND OR ELEVATED TEMP Last administered on 01/18/17 13:38; Admin Dose 500 MG; Start 01/08/17 at 15:30 Acetaminophen/ Hydrocodone Bitart ([place] (5/325)) 1 tab Q4H PRN PO PAIN Last administered on 01/19/17 07:48; Admin Dose 1 TAB; Start 01/09/17 at 08:30 Methylprednisolone Sodium Succinate (Solu-Medrol) 40 mg DAILY IV Last administered on 01/19/17 08:41; Admin Dose 40 MG; Start 01/12/17 at 13:00 Diagnostic Test (Pha) (Accu-Chek) 1 ea 02 XX Last administered on 01/19/17 02: 01; Admin Dose 1 EA; Start 01/15/17 at 02:00 Heparin Sodium (Porcine) (Heparin (5000 Units/0.5 ml)) 5,000 unit BID SC Last administered on 01/19/17 08:49; Admin Dose 5,000 UNIT; Start 01/14/17 at 21:00 Insulin Aspart (Novolog Insulin Pen) 10 unit ONCE PRN SC ELEVATED GLUCOSE; Start 01/17/17 at 02:00 Insulin Glargine 30 unit 30 unit DAILY@20 SC Last administered on 01/18/17 20: 49; Admin Dose 30 UNIT; Start 01/17/17 at 20:00 Sodium Chloride (1/2 NS) 1,000 ml @ 40 mls/hr Q24H IV Last administered on 01/18 21:32; Admin Dose 75 MLS/HR; Start 01/17/17 at 17:00; Status Future Hold Nitroglycerin 1 tab 1 tab Q5M PRN SL ANGINA; Start 01/18/17 at 21:30 Cefotaxime Sodium 50 ml @ 100 mls/hr Q12 IVPB ; Start 01/19/17 at 12:00 Bumetanide/ Dextrose (Bumex/D5W) 250 ml @ 10 mls/hr Q24H IV Last administered on 01/19/17 14:09; Admin Dose 10 MLS/HR; Start 01/19/17 at 14:30 Epoetin Sean (Epogen (Esrd)) 10,000 units MoWeFr@17 SC ; Start 01/19/17 at 17:00 Procedures Procedures cxr images reviewed Diffuse interstitial edema is worse than on the prior study. ekg/tele per hpi MARISEL MEEKS Jan 19, 2017 15:57
--- NOTE | 2017-01-19 17:54 | RADRPT ---
PROCEDURE: US bilateral lower extremity veins. CLINICAL INDICATION: Bilateral leg pain and swelling. Shortness of breath. TECHNIQUE: Multiple longitudinal and transverse images of the bilateral lower extremity veins were obtained with joya scale and color Doppler imaging. The common femoral vein, femoral vein, and popl iteal vein were evaluated. 2D grayscale measurements with compression sonography, color Doppler, and pulsed Doppler with augmentation. COMPARISON: No prior studies are available for comparison. FINDINGS: The bilateral common femoral, femoral and popliteal veins are normally compressible throughout. Col or flow demonstrates normal filling of the vessels. Normal waveforms are visualized and there is no rmal response to augmentation. IMPRESSION: 1. No evidence of deep vein thrombosis involving either lower extremity. RPTAT: QQ .Ulices Silva MD, MD Date Time Electronically viewed and signed by .Ulices Silva MD, on 01/19/2017 17:54 .R/
[2017-01-19] MEDS: EPOETIN 10000 UNITS/1 ML INJ (ESRD) SC SCH (18:05)
--- NOTE | 2017-01-19 19:02 | CONS ---
Date/Time of Note Date/Time of Note DATE: 01/19/17 TIME: 18:12 Assessment/Plan Assessment/Plan Chief Complaint/Hosp Course 1. [place] obesity: BMI 48 -encourage weight loss -nutrition optimization -eventual bariatric surgery when medically stable 2. CHF: dyspnea with pulmonary congestion -continue diuresis per cards -medical optimization 3. Elevated troponin: renal failure vs NSTEMI; invasive/stress testing not recommended at this time per cards -trend and monitor 4. Chronic kidney disease: cr improving; on bumex gtt -per renal 5. Diabetes: blood sugar labile; on long acting and short acting insulin -optimize blood sugar control 6. Hypertension: controlled -cont. antihypertensives 7. YEVGENIY: morbid obesity -cpap 8. Leukocytosis: on steroids vs. ?SBP; fevers -abx for poss. SBP 9. Dyspnea: multifactorial chf+ morbid obesity + ascites + YEVGENIY -supportive -as above Patient seen and examined in collaboration with Dr. Marcelino Morales Problems: Consultation Date/Type/Reason Admit Date/Time Jan 07, 2017 at 10:13 Date of Consultation: Jan 19, 2017 Type of Consultation: Surgical Reason for Consultation Morbid Obesity Hx of Present Illness Tyrone El is a 61 yo man who was sent over by his primary care physician for possible paracentesis. He presented with lower extremity swelling as well as shortness of breath upon minimal exertion. He denies any chest pain, palpitations, wheezing, fevers, chills, nausea, vomiting diarrhea. Initital ultrasound of the abdomen did not show any significant ascites. He has significant morbid obesity and general surgery was called for evaluation. Constitutional: poor po, requiring O2, No chills, No diaphoresis Eyes: No pain Respiratory: shortness of breath, No cough Cardiovascular: chest pain, No lightheadedness Gastrointestinal: other (distended) Musculoskeletal: No back pain Skin: No bruising, No pruritis, No rash Psychological: nl mood/affect Past Medical History 1. Advanced cirrhosis of liver 2. Morbid obesity. 3. Renal insufficiency. 4. Sleep apnea. 5. Anemia. 6. Thrombocytopenia. Medical History: congestive heart failure, diabetes, hepatitis, hypertension, renal disease Past Surgical History Past Surgical Hx: appendectomy Social History Alcohol Use: none Smoking Status: Former smoker Drug Use: none Exam/Review of Systems Vital Signs Vitals Vital Signs Date Time Temp Pulse Resp B/P Pulse Ox O2 Delivery O2 Flow Rate FiO2 01/19/17 17:16 92 20 97 Nasal Cannula 2.0 01/19/17 15:27 97.2 135/66 01/19/17 02:12 28 Intake and Output 01/18/17 01/18/17 01/19/17 15:00 23:00 07:00 Intake Total 1780 ml 900 ml Output Total 1150 ml 400 ml Balance 630 ml 500 ml Exam Constitutional: alert, obese, oriented, other (somnolent), well developed, No distress Psych: nl mood/affect, no complaints Head: atraumatic, normocephalic Eyes: nl conjunctiva, nl lids ENMT: mucosa pink and moist Neck: non-tender, supple Respiratory: diminished breath sounds Cardiovascular: regular rate and rhythm Gastrointestinal: distended (mod), non-tender, soft Genitourinary - Male: nl penis, nl scrotum, No CVA tenderness Musculoskeletal: nl extremities to inspection Extremities: edema (ble 4+), normal pulses 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: nl mental status, nl speech Skin: No rash or lesions Results Result Diagram: 01/19/1730 01/19/17 0630 Results 24 hrs Laboratory Tests Test 01/18/17 20:41 01/18/17 21:02 01/18/17 21:25 01/19/17 01:27 Bedside Glucose 326 H 275 H Blood Gas Specimen Source Blood arterial Arterial Blood Date Drawn 01/18/2017 9:25:00 PM Arterial Blood pH (Temp corrected) 7.389 Arterial Blood pCO2 (Temp correct) 37.9 Arterial Blood pO2 (Temp corrected) 69.7 L Arterial Blood HCO3 22.4 Arterial Blood Base Excess -2.3 Arterial Blood Oxygen Saturation 93.0 L Oswaldo Test ACCEPTAB Arterial Blood Gas Puncture Site Right Radial Arterial Blood Carboxyhemoglobin 0.3 Arterial Blood Methemoglobin 0.4 Blood Gas A-a O2 Differential 78.0 H Oxyhemoglobin Percent 92.3 L Total Hemoglobin 10.1 L Blood Gas Temperature 37.0 Blood Gas Modality NASAL CANNULA FiO2 27.0 Blood Gas Notified Whom T BREANNA Blood Gas Notified Time 01/18/2017 9:37:00 PM Troponin I 0.078 Test 01/19/17 03:00 01/19/17 06:30 01/19/17 07:51 01/19/17 12:29 Urine Color YELLOW Urine Clarity SLIGHTLY CLOUDY A Urine pH 5.0 Urine Specific [place] 1.012 Urine Ketones NEGATIVE Urine Nitrite NEGATIVE Urine Bilirubin NEGATIVE Urine Urobilinogen NEGATIVE Urine Leukocyte Esterase NEGATIVE Urine Microscopic RBC 5 Urine Microscopic WBC 3 Urine Bacteria FEW A Urine Hemoglobin 1+ H Urine Random Creatinine 70.35 Urine Protein/Creatinine Ratio 6.99 Urine Glucose 2+ H Urine Total Protein 492.0 H White Blood Count 14.2 #H Red Blood Count 3.34 L Hemoglobin 8.5 L Hematocrit 27.9 L Mean Corpuscular Volume 83.5 Mean Corpuscular Hemoglobin 25.4 L Mean Corpuscular Hemoglobin Concent 30.5 L Red Cell Distribution Width 16.9 H Platelet Count 108 #L Mean Platelet Volume 11.7 H Neutrophils % 91.0 H Lymphocytes % 1.1 L Monocytes % 6.9 Eosinophils % 0.1 Basophils % 0.1 Nucleated Red Blood Cells % 0.4 H Neutrophils # 13.0 H Lymphocytes # 0.2 L Monocytes # 1.0 H Eosinophils # 0.0 Basophils # 0.0 Nucleated Red Blood Cells # 0.1 H Prothrombin Time 15.1 H Prothrombin Time Ratio 1.2 INR International Normalized Ratio 1.18 Activated Partial Thromboplast Time 30.6 Sodium Level 134 L Potassium Level 4.4 Chloride Level 102 Carbon Dioxide Level 25 Anion Gap 11 Blood Urea Nitrogen 98 H Creatinine 3.16 H Glucose Level 206 Lactic Acid Level 2.0 Calcium Level 8.4 Magnesium Level 3.1 H Total Bilirubin 0.3 Direct Bilirubin 0.00 Indirect Bilirubin 0.3 Aspartate Amino Transf (AST/SGOT) 43 Alanine Aminotransferase (ALT/SGPT) 50 Alkaline Phosphatase 135 H Troponin I 0.131 *H Total Protein 7.6 Albumin 3.7 Globulin 3.90 H Albumin/Globulin Ratio 0.94 Bedside Glucose 158 184 Test 01/19/17 14:10 Iron Level < 10 L Total Iron Binding Capacity 297 Percent Iron Saturation Ferritin 20.5 Troponin I 0.258 *H Parathyroid Hormone (Intact) Medications Medications Current Medications Atorvastatin Calcium (Lipitor) 20 mg HS PO Last administered on 01/12/17 21:03 ; Admin Dose 20 MG; Start 01/07/17 at 21:00 Miscellaneous Information 1 ea NOTE XX ; Start 01/07/17 at 17:30 Glucose (Glutose) 15 gm Q15M PRN PO DECREASED GLUCOSE; Start 01/07/17 at 17:30 Glucose (Glutose) 22.5 gm Q15M PRN PO DECREASED GLUCOSE; Start 01/07/17 at 17: 30 Dextrose (D50w Syringe) 25 ml Q15M PRN IV DECREASED GLUCOSE; Start 01/07/17 at 17:30 Dextrose (D50w Syringe) 50 ml Q15M PRN IV DECREASED GLUCOSE; Start 01/07/17 at 17:30 Glucagon (Glucagen) 1 mg Q15M PRN IM DECREASED GLUCOSE; Start 01/07/17 at 17:30 Glucose (Glutose) 15 gm Q15M PRN BUCCAL DECREASED GLUCOSE; Start 01/07/17 at 17 :30 Nifedipine (Procardia Xl) 30 mg DAILY PO Last administered on 01/19/17 08:41; Admin Dose 30 MG; Start 01/08/17 at 09:00 Lactulose (Enulose) 20 gm HS PO Last administered on 01/17/17 21:01; Admin Dose 20 GM; Start 01/07/17 at 21:00 Docusate Sodium (Colace) 100 mg BID PRN PO CONSTIPATION Last administered on 09:10; Admin Dose 100 MG; Start 01/08/17 at 14:00 Acetaminophen (Tylenol Tab) 500 mg Q6H PRN PO PAIN AND OR ELEVATED TEMP Last administered on 01/18/17 13:38; Admin Dose 500 MG; Start 01/08/17 at 15:30 Acetaminophen/ Hydrocodone Bitart ([place] (5/325)) 1 tab Q4H PRN PO PAIN Last administered on 01/19/17 07:48; Admin Dose 1 TAB; Start 01/09/17 at 08:30 Diagnostic Test (Pha) (Accu-Chek) 1 ea 02 XX Last administered on 01/19/17 02: 01; Admin Dose 1 EA; Start 01/15/17 at 02:00 Heparin Sodium (Porcine) (Heparin (5000 Units/0.5 ml)) 5,000 unit BID SC Last administered on 01/19/17 08:49; Admin Dose 5,000 UNIT; Start 01/14/17 at 21:00 Insulin Aspart (Novolog Insulin Pen) 10 unit ONCE PRN SC ELEVATED GLUCOSE; Start 01/17/17 at 02:00 Insulin Glargine 30 unit 30 unit DAILY@20 SC Last administered on 01/18/17 20: 49; Admin Dose 30 UNIT; Start 01/17/17 at 20:00 Sodium Chloride (1/2 NS) 1,000 ml @ 40 mls/hr Q24H IV Last administered on 01/18 21:32; Admin Dose 75 MLS/HR; Start 01/17/17 at 17:00; Status Future Hold Nitroglycerin 1 tab 1 tab Q5M PRN SL ANGINA; Start 01/18/17 at 21:30 Cefotaxime Sodium 50 ml @ 100 mls/hr Q12 IVPB ; Start 01/19/17 at 12:00 Bumetanide/ Dextrose (Bumex/D5W) 250 ml @ 10 mls/hr Q24H IV Last administered on 01/19/17 14:09; Admin Dose 10 MLS/HR; Start 01/19/17 at 14:30 Epoetin Sean (Epogen (Esrd)) 10,000 units MoWeFr@17 SC Last administered on 18:05; Admin Dose 10,000 UNITS; Start 01/19/17 at 17:00 Methylprednisolone Sodium Succinate (Solu-Medrol) 20 mg DAILY IV ; Start at 09:00 ERLINDA VALLE NP Jan 19, 2017 18:37
[2017-01-19] MEDS: ATORVASTATIN 20 MG TAB PO SCH (21:00)
[2017-01-19] MEDS: LACTULOSE 30ML CUP PO SCH (21:41)
[2017-01-19] MEDS: INSULIN GLARGINE [LANtus] 3 ML PEN SC SCH (21:56)
[2017-01-20] VITALS (13 sets, daily range): BP systolic 106–133; BP diastolic 55–74; PULSE 89–100; RESP 15–20
[2017-01-20] MEDS ORDERED: INSULIN ASPART [NOVOLOG] 3 ML PEN SC ONE (02:00)
[2017-01-20] MEDS: HYDROCODONE/APAP (5/325) TAB PO PRN ×3 (02:04→21:07)
[2017-01-20] MEDS: ACCU-CHEK XX SCH (02:04)
[2017-01-20] MEDS ORDERED: VANCOMYCIN 1 GM in SOD CHLORIDE 0.9% 250 ML IVPB SCH (04:30)
[2017-01-20] MEDS: ALBUTEROL/IPRATROPIUM (NEB) 3 ML AMP HHN PRN (05:56)
--- NOTE | 2017-01-20 06:58 | CONS ---
Date/Time of Note Date/Time of Note DATE: 01/20/17 TIME: 06:55 Assessment/Plan Assessment/Plan Chief Complaint/Hosp Course 1)Liver cirrhosis with portal HTN due to Hep C to repeat ammonia level 2) CHF unable to tolerate lasix with worsening renal function 3) r/o SBP pt to get paracentesis later today cefotaxime was started by the primary if fevers not improving will broaden the coverage 01/20 - pt to get paracentesis today continue with cefotaxime 4) new onset fever with leukocytosis pt has been on steroids but this does not explain the new fever the potential sources would include, ascitic fluid, lung urinalysis does not suggest an infection will order beta d glucan, aspergillus galactomannan, procalcitonin in a.m. will order LE dopplers to make sure no DVT has developed if cefotaxime does not improve his fever, wbc then will broaden coverage to include lung infection 01/20 - await paracentesis and a.m. labs vanco added due to GPC in blood cx fevers appear improved 5) GPC in blood cx 01/20 - no central line in place, IV sites look ok await ID to see if true infection or a contaminant vanco started, will order repeat blood cx now Problems: Consultation Date/Type/Reason Admit Date/Time Jan 07, 2017 at 10:13 Initial Consult Date 01/19/17 Type of Consultation: ID Referring Provider: JENY MORA MD 24 HR Interval Summary Free Text/Dictation spoke to and pt has some body aches no V, D no change with breathing Exam/Review of Systems Vital Signs Vitals Vital Signs Date Time Temp Pulse Resp B/P Pulse Ox O2 Delivery O2 Flow Rate FiO2 01/20/17 05:59 86 22 95 Nasal Cannula 2.0 01/20/17 04:46 99.0 106/55 01/19/17 02:12 28 Intake and Output 01/19/17 01/19/17 01/20/17 15:00 23:00 07:00 Intake Total 720 ml Output Total 1100 ml Balance -380 ml Exam Constitutional: alert Eyes: nl sclera ENMT: mucosa pink and moist Respiratory: clear to auscultation Cardiovascular: regular rate and rhythm Gastrointestinal: distended, soft Results Result Diagram: 01/19/17 0630 01/19/17 0630 Results 24 hrs Laboratory Tests Test 01/19/17 07:51 01/19/17 12:29 01/19/17 14:10 01/19/17 18:00 Bedside Glucose 158 184 267 H Iron Level < 10 L Total Iron Binding Capacity 297 Percent Iron Saturation Ferritin 20.5 Troponin I 0.258 *H Parathyroid Hormone (Intact) Test 01/19/17 21:45 01/20/17 01:56 Bedside Glucose 299 H 236 H Medications Medications Current Medications Atorvastatin Calcium (Lipitor) 20 mg HS PO Last administered on 01/12/17 21:03 ; Admin Dose 20 MG; Start 01/07/17 at 21:00 Miscellaneous Information 1 ea NOTE XX ; Start 01/07/17 at 17:30 Glucose (Glutose) 15 gm Q15M PRN PO DECREASED GLUCOSE; Start 01/07/17 at 17:30 Glucose (Glutose) 22.5 gm Q15M PRN PO DECREASED GLUCOSE; Start 01/07/17 at 17: 30 Dextrose (D50w Syringe) 25 ml Q15M PRN IV DECREASED GLUCOSE; Start 01/07/17 at 17:30 Dextrose (D50w Syringe) 50 ml Q15M PRN IV DECREASED GLUCOSE; Start 01/07/17 at 17:30 Glucagon (Glucagen) 1 mg Q15M PRN IM DECREASED GLUCOSE; Start 01/07/17 at 17:30 Glucose (Glutose) 15 gm Q15M PRN BUCCAL DECREASED GLUCOSE; Start 01/07/17 at 17 :30 Nifedipine (Procardia Xl) 30 mg DAILY PO Last administered on 01/19/17 08:41; Admin Dose 30 MG; Start 01/08/17 at 09:00 Lactulose (Enulose) 20 gm HS PO Last administered on 01/19/17 21:41; Admin Dose 20 GM; Start 01/07/17 at 21:00 Docusate Sodium (Colace) 100 mg BID PRN PO CONSTIPATION Last administered on 09:10; Admin Dose 100 MG; Start 01/08/17 at 14:00 Acetaminophen (Tylenol Tab) 500 mg Q6H PRN PO PAIN AND OR ELEVATED TEMP Last administered on 01/18/17 13:38; Admin Dose 500 MG; Start 01/08/17 at 15:30 Acetaminophen/ Hydrocodone Bitart ([place] (5/325)) 1 tab Q4H PRN PO PAIN Last administered on 01/20/17 02:04; Admin Dose 1 TAB; Start 01/09/17 at 08:30 Diagnostic Test (Pha) (Accu-Chek) 1 ea 02 XX Last administered on 01/20/17 02: 04; Admin Dose 1 EA; Start 01/15/17 at 02:00 Heparin Sodium (Porcine) (Heparin (5000 Units/0.5 ml)) 5,000 unit BID SC Last administered on 01/19/17 21:40; Admin Dose 5,000 UNIT; Start 01/14/17 at 21:00 Insulin Aspart (Novolog Insulin Pen) 10 unit ONCE PRN SC ELEVATED GLUCOSE; Start 01/17/17 at 02:00 Insulin Glargine 30 unit 30 unit DAILY@20 SC Last administered on 01/19/17 21: 56; Admin Dose 30 UNIT; Start 01/17/17 at 20:00 Sodium Chloride (1/2 NS) 1,000 ml @ 40 mls/hr Q24H IV Last administered on 01/18 21:32; Admin Dose 75 MLS/HR; Start 01/17/17 at 17:00; Status Future Hold Nitroglycerin 1 tab 1 tab Q5M PRN SL ANGINA; Start 01/18/17 at 21:30 Cefotaxime Sodium 50 ml @ 100 mls/hr Q12 IVPB Last administered on 01/19/17 21:42; Admin Dose 100 MLS/HR; Start 01/19/17 at 12:00 Bumetanide/ Dextrose (Bumex/D5W) 250 ml @ 10 mls/hr Q24H IV Last administered on 01/19/17 14:09; Admin Dose 10 MLS/HR; Start 01/19/17 at 14:30 Epoetin Sean (Epogen (Esrd)) 10,000 units MoWeFr@17 SC Last administered on 18:05; Admin Dose 10,000 UNITS; Start 01/19/17 at 17:00 Methylprednisolone Sodium Succinate 20 mg 20 mg DAILY IV ; Start 01/20/17 at 09: 00 Vancomycin HCl/ Sodium Chloride (Vancocin/NS) 250 ml @ 83.333 mls/ hr ONCE IVPB Last administered on 01/20/17 06:11; Admin Dose 83.333 MLS/HR; Start 05/29 at 04:30; Stop 01/20/17 at 07:29 DANYEL HART MD Jan 20, 2017 06:58
--- NOTE | 2017-01-20 08:23 | CONS ---
Date/Time of Note Date/Time of Note DATE: 01/20/17 TIME: 08:16 Assessment/Plan Assessment/Plan Chief Complaint/Hosp Course Impression: 1. Chronic kidney disease. This patient has chronic kidney disease probably due to several factors. His urine protein / creatinine ratio is elevated at 6.9 g. This is consistent with nephrotic syndrome. His renal function has been decreased. Labs are pending today. He is now on a Bumex drip. He was in negative fluid balance yesterday however he still has massive amounts of peripheral edema consistent with anasarca. I will check his labs today when available. 2. 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 Hypertension 4. Hyperlipidemia 5. Anemia 6. Congestive heart failure 7. Obstructive sleep apnea Plan: 1. Continue Bumex drip 2. Epogen for anemia 3. If renal function does not improve and/or urine output does not increase then we will have to consider dialysis. I will discuss this with the patient and the family. 4. I will follow patient along with you Problems: Consultation Date/Type/Reason Admit Date/Time Jan 07, 2017 at 10:13 Initial Consult Date 01/19/17 Type of Consultation: ID Referring Provider: JENY MORA MD 24 HR Interval Summary Free Text/Dictation Patient is awake this morning he is on telemetry. His is in the room with him. The patient says that he is short of breath. Constitutional: poor po, requiring O2 Exam/Review of Systems Vital Signs Vitals Vital Signs Date Time Temp Pulse Resp B/P Pulse Ox O2 Delivery O2 Flow Rate FiO2 01/20/17 08:04 91 01/20/17 05:59 22 95 Nasal Cannula 2.0 01/20/17 04:46 99.0 106/55 01/19/17 02:12 28 Intake and Output 01/19/17 01/19/17 01/20/17 15:00 23:00 07:00 Intake Total 720 ml Output Total 1100 ml Balance -380 ml Exam Constitutional: alert, frail, obese Respiratory: clear to auscultation, diminished breath sounds Cardiovascular: edema, regular rate and rhythm Gastrointestinal: ascites, distended Extremities: edema Results Result Diagram: 01/19/17 0630 01/19/17 0630 Results 24 hrs Laboratory Tests Test 01/19/17 12:29 01/19/17 14:10 01/19/17 18:00 01/19/17 21:45 Bedside Glucose 184 267 H 299 H Iron Level < 10 L Total Iron Binding Capacity 297 Percent Iron Saturation Ferritin 20.5 Troponin I 0.258 *H Parathyroid Hormone (Intact) Test 01/20/17 01:56 01/20/17 07:58 Bedside Glucose 236 H 174 Medications Medications Current Medications Atorvastatin Calcium (Lipitor) 20 mg HS PO Last administered on 01/12/17 21:03 ; Admin Dose 20 MG; Start 01/07/17 at 21:00 Miscellaneous Information 1 ea NOTE XX ; Start 01/07/17 at 17:30 Glucose (Glutose) 15 gm Q15M PRN PO DECREASED GLUCOSE; Start 01/07/17 at 17:30 Glucose (Glutose) 22.5 gm Q15M PRN PO DECREASED GLUCOSE; Start 01/07/17 at 17: 30 Dextrose (D50w Syringe) 25 ml Q15M PRN IV DECREASED GLUCOSE; Start 01/07/17 at 17:30 Dextrose (D50w Syringe) 50 ml Q15M PRN IV DECREASED GLUCOSE; Start 01/07/17 at 17:30 Glucagon (Glucagen) 1 mg Q15M PRN IM DECREASED GLUCOSE; Start 01/07/17 at 17:30 Glucose (Glutose) 15 gm Q15M PRN BUCCAL DECREASED GLUCOSE; Start 01/07/17 at 17 :30 Nifedipine (Procardia Xl) 30 mg DAILY PO Last administered on 01/19/17 08:41; Admin Dose 30 MG; Start 01/08/17 at 09:00 Lactulose (Enulose) 20 gm HS PO Last administered on 01/19/17 21:41; Admin Dose 20 GM; Start 01/07/17 at 21:00 Docusate Sodium (Colace) 100 mg BID PRN PO CONSTIPATION Last administered on 09:10; Admin Dose 100 MG; Start 01/08/17 at 14:00 Acetaminophen (Tylenol Tab) 500 mg Q6H PRN PO PAIN AND OR ELEVATED TEMP Last administered on 01/18/17 13:38; Admin Dose 500 MG; Start 01/08/17 at 15:30 Acetaminophen/ Hydrocodone Bitart ([place] (5/325)) 1 tab Q4H PRN PO PAIN Last administered on 01/20/17 02:04; Admin Dose 1 TAB; Start 01/09/17 at 08:30 Diagnostic Test (Pha) (Accu-Chek) 1 ea 02 XX Last administered on 01/20/17 02: 04; Admin Dose 1 EA; Start 01/15/17 at 02:00 Heparin Sodium (Porcine) (Heparin (5000 Units/0.5 ml)) 5,000 unit BID SC Last administered on 01/19/17 21:40; Admin Dose 5,000 UNIT; Start 01/14/17 at 21:00 Insulin Aspart (Novolog Insulin Pen) 10 unit ONCE PRN SC ELEVATED GLUCOSE; Start 01/17/17 at 02:00 Insulin Glargine 30 unit 30 unit DAILY@20 SC Last administered on 01/19/17 21: 56; Admin Dose 30 UNIT; Start 01/17/17 at 20:00 Sodium Chloride (1/2 NS) 1,000 ml @ 40 mls/hr Q24H IV Last administered on 01/18 21:32; Admin Dose 75 MLS/HR; Start 01/17/17 at 17:00; Status Future Hold Nitroglycerin 1 tab 1 tab Q5M PRN SL ANGINA; Start 01/18/17 at 21:30 Cefotaxime Sodium 50 ml @ 100 mls/hr Q12 IVPB Last administered on 01/19/17 21:42; Admin Dose 100 MLS/HR; Start 01/19/17 at 12:00 Bumetanide/ Dextrose (Bumex/D5W) 250 ml @ 10 mls/hr Q24H IV Last administered on 01/19/17 14:09; Admin Dose 10 MLS/HR; Start 01/19/17 at 14:30 Epoetin Sean (Epogen (Esrd)) 10,000 units MoWeFr@17 SC Last administered on 18:05; Admin Dose 10,000 UNITS; Start 01/19/17 at 17:00 Methylprednisolone Sodium Succinate (Solu-Medrol) 20 mg DAILY IV ; Start at 09:00 ANA MELENDEZ MD Jan 20, 2017 08:23
[2017-01-20 08:39] LABS: ADD SCAN DIFF NO
[2017-01-20 08:42] LABS: ABNORMAL IP MESSAGE 1; BASOPHILS % 0.1 % (0.0-2.0); HEMOGLOBIN 8.2 g/dl (14.0-18.0); LYMPHOCYTES # 0.4 10^3/ul (0.8-2.9); LYMPHOCYTES % 2.3 % (15.0-51.0); MEAN CORPUSCULAR HEMOGLOBIN 25.5 pg (29.0-33.0); MEAN CORPUSCULAR HGB CONC 30.4 g/dl (32.0-37.0); MEAN CORPUSCULAR VOLUME 84.1 fl (82.0-101.0); MEAN PLATELET VOLUME 11.7 fl (7.4-10.4); MONOCYTE # 1.3 10^3/ul (0.3-0.9); MONOCYTES % 7.5 % (0.0-11.0); NEUTROPHIL # 15.3 10^3/ul (1.6-7.5); NEUTROPHILS % 89.6 % (39.0-77.0); PLATELET COUNT 96 10^3/UL (140-415); RED BLOOD COUNT 3.21 10^6/ul (4.70-6.10); RED CELL DISTRIBUTION WIDTH 16.9 % (11.5-14.5)
[2017-01-20 09:14] LABS: ALBUMIN 3.1 g/dl (3.3-4.9); ALBUMIN/GLOBULIN RATIO 0.83; BILIRUBIN,INDIRECT 0.3 mg/dl (0-1.1); BILIRUBIN,TOTAL 0.3 mg/dl (0.2-1.3); CALCIUM 8.2 mg/dl (8.4-10.2); CREATININE 3.26 mg/dl (0.61-1.24); PHOSPHORUS 6.3 mg/dl (2.5-4.9); POTASSIUM 4.7 mmol/L (3.5-5.1); TOTAL PROTEIN 6.8 g/dl (6.1-8.1)
[2017-01-20] MEDS: INSULIN ASPART [NOVOLOG] 3 ML PEN SC SCH ×4 (09:14→21:23)
[2017-01-20] MEDS: HEPARIN 5,000 UNIT/0.5 ML VIAL SC SCH ×2 (09:16→21:08)
[2017-01-20] MEDS: CEFOTAXIME 1 GM/50 ML (PMX) 50 ML IVPB SCH ×2 (09:17→21:07)
[2017-01-20] MEDS: METHYLPREDNISOLONE 40 MG INJ IV SCH (09:17)
[2017-01-20] MEDS: NIFEdipine (XL) 30 MG TAB PO SCH (09:18)
[2017-01-20] MEDS: ACETAMINOPHEN 500 MG TAB PO PRN (09:27)
[2017-01-20] MEDS: ALBUTEROL/IPRATROPIUM (NEB) 3 ML AMP HHN SCH ×4 (09:32→20:09)
[2017-01-20 09:36] LABS: THYROID STIMULATING HORMONE 0.187 MIU/L (0.465-4.680)
--- NOTE | 2017-01-20 11:23 | PN ---
Date/Time of Note Date/Time of Note DATE: 01/20/17 TIME: 11:04 Assessment/Plan Lines/Catheters IV Catheter Type (from [facility]): Saline Lock Sykes in Place (from [facility]): Yes Assessment/Plan Chief Complaint/Hosp Course 1. [place] obesity: BMI 48 -encourage weight loss -nutrition optimization -eventual bariatric surgery when medically stable 2. CHF: dyspnea with pulmonary congestion; -continue diuresis per cards -medical optimization 3. Elevated troponin: renal failure vs NSTEMI; invasive/stress testing not recommended at this time per cards -trend and monitor 4. Chronic kidney disease: cr worsening; on bumex gtt -per renal -poss dialysis if does not improve 5. Diabetes: blood sugar labile; on long acting and short acting insulin -optimize blood sugar control 6. Hypertension: controlled -cont. antihypertensives 7. YEVGENIY: morbid obesity, more dyspneic today -cpap 8. Leukocytosis: on steroids vs. ?SBP; blood and urine growing staph; fevers; wbc increasing -abx per sensitivity 9. Dyspnea: multifactorial chf+ morbid obesity + ascites + YEVGENIY; more dyspneic today -supportive -as above 10. Hyponatremia: likely overloaded, CHF - judicious fluid management -diuretics per renal 11. Anemia: CKD +/- chronic disease; doubt active bleed -monitor -transfuse as needed 12. Hypothyroidism; low tsh/t4 -medical optimization Patient seen and examined in collaboration with Dr. Marcelino Morales Problems: Subjective 24 Hr Interval Summary More awake, conversant but mildly dyspneic. min temp, diaphoretic. some bodyaches. No co cp, palpitations, sob, cough, n/v/d, mccallum, sz. Exam/Review of Systems Vital Signs Vitals Vital Signs Date Time Temp Pulse Resp B/P Pulse Ox O2 Delivery O2 Flow Rate FiO2 01/20/17 09:33 93 26 96 Nasal Cannula 2.0 01/20/17 08:19 99.4 126/74 01/19/17 02:12 28 Intake and Output 01/19/17 01/19/17 01/20/17 15:00 23:00 07:00 Intake Total 720 ml Output Total 1100 ml Balance -380 ml Exam Free Text/Dictation Constitutional: alert, obese, oriented, more awake, well developed, Psych: nl mood/affect, no complaints Head: atraumatic, normocephalic Eyes: nl conjunctiva, nl lids ENMT: mucosa pink and moist Neck: non-tender, supple Respiratory: diminished breath sounds; more dyspneic today Cardiovascular: regular rate and rhythm Gastrointestinal: distended (mod), non-tender, soft Genitourinary - Male: nl penis, nl scrotum, No CVA tenderness; sykes, clear urine output Musculoskeletal: nl extremities to inspection Extremities: edema (ble 4+), normal pulses 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: nl mental status, nl speech Skin: No rash or lesions Results Result Diagram: 01/20/17 0701/20/17 0705 ERLINDA VALLE NP Jan 20, 2017 11:14
--- NOTE | 2017-01-20 12:14 | CONS ---
Date/Time of Note Date/Time of Note DATE: 01/20/17 TIME: 12:12 Assessment/Plan Assessment/Plan Chief Complaint/Hosp Course 61-year-old male admitted for shortness of breath. Patient is a history of hepatitis C cirrhosis of liver, morbid obesity obstructive sleep apnea, diabetes mellitus and hypertension. Recent was brought to the emergency room for abdominal distention and shortness of breath. He was slightly nauseous. No GI bleeding no chest pain no or EMT BASIC problem no fever no chills. Problems: Additional Assessment/Plan 1. Shortness of breath multifactorial 2. Morbid obesity 3. Cirrhosis of liver with portal hypertension 4. Mild ascites 5. Diabetes 6. Hypertension 7. Renal failure 8. Anasarca Plan P.o. fluid restriction 1000 cc a day Low-sodium diet Monitor BUN and creatinine closely Weight loss Supplemental oxygen Dietary consult, reduce calorie intake to 1000-calorie a day Renal consult Spot urine for sodium Discussed with the patient and the family Continue antibiotic Diuretic as per bow tacker. May need dialysis Consultation Date/Type/Reason Admit Date/Time Jan 07, 2017 at 10:13 Initial Consult Date 01/09/17 Type of Consultation: ID Referring Provider: JENY MORA MD 24 HR Interval Summary Free Text/Dictation Case discussed with the and patient complains of body ache and fever Exam/Review of Systems Vital Signs Vitals Vital Signs Date Time Temp Pulse Resp B/P Pulse Ox O2 Delivery O2 Flow Rate FiO2 01/20/17 12:03 99 01/20/17 11:48 Nasal Cannula 3.0 01/20/17 09:33 26 96 01/20/17 08:19 99.4 126/74 01/19/17 02:12 28 Intake and Output 01/19/17 01/19/17 01/20/17 15:00 23:00 07:00 Intake Total 720 ml Output Total 1100 ml Balance -380 ml Exam Constitutional: alert, oriented, well developed Psych: nl mood/affect, no complaints Head: atraumatic, normocephalic Eyes: EOMI, PERRL, nl conjunctiva, nl lids, nl sclera ENMT: nl external ears & nose, nl lips & teeth, nl nasal mucosa & septum Neck: non-tender, supple Respiratory: clear to auscultation, normal air movement Cardiovascular: nl pulses, regular rate and rhythm Gastrointestinal: nl liver, spleen, non-tender, soft Musculoskeletal: nl extremities to inspection, nl gait and stance Extremities: normal pulses 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: EMT BASIC II-XII intact, nl mental status, nl speech, nl strength Skin: nl turgor, No rash or lesions Lymph: nl lymph nodes Results Result Diagram: 01/20/17 0705 01/20/17704 Results 24 hrs Laboratory Tests Test 01/19/17 12:29 01/19/17 14:10 01/19/17 18:00 01/19/17 21:45 Bedside Glucose 184 267 H 299 H Iron Level < 10 L Total Iron Binding Capacity 297 Percent Iron Saturation Ferritin 20.5 Troponin I 0.258 *H Parathyroid Hormone (Intact) Test 01/20/17 01:56 01/20/17 07:05 01/20/17 07:58 Bedside Glucose 236 H 174 White Blood Count 17.0 H Red Blood Count 3.21 L Hemoglobin 8.2 L Hematocrit 27.0 L Mean Corpuscular Volume 84.1 Mean Corpuscular Hemoglobin 25.5 L Mean Corpuscular Hemoglobin Concent 30.4 L Red Cell Distribution Width 16.9 H Platelet Count 96 L Mean Platelet Volume 11.7 H Neutrophils % 89.6 H Lymphocytes % 2.3 L Monocytes % 7.5 Eosinophils % 0.0 Basophils % 0.1 Nucleated Red Blood Cells % 0.0 Neutrophils # 15.3 H Lymphocytes # 0.4 L Monocytes # 1.3 H Eosinophils # 0.0 Basophils # 0.0 Nucleated Red Blood Cells # 0.0 Sodium Level 129 L Potassium Level 4.7 Chloride Level 99 Carbon Dioxide Level 28 Anion Gap 7 L Blood Urea Nitrogen 106 H Creatinine 3.26 H Glucose Level 169 Calcium Level 8.2 L Phosphorus Level 6.3 H Magnesium Level 3.0 H Total Bilirubin 0.3 Direct Bilirubin 0.00 Indirect Bilirubin 0.3 Aspartate Amino Transf (AST/SGOT) 39 Alanine Aminotransferase (ALT/SGPT) 50 Alkaline Phosphatase 95 Ammonia 57 #H Lactate Dehydrogenase 617 Total Protein 6.8 Albumin 3.1 L Globulin 3.70 H Albumin/Globulin Ratio 0.83 Thyroid Stimulating Hormone (TSH) 0.187 L Thyroxine (T4) 5.1 L Medications Medications Current Medications Atorvastatin Calcium (Lipitor) 20 mg HS PO Last administered on 01/12/17t 21:03 ; Admin Dose 20 MG; Start 01/07/17 at 21:00 Miscellaneous Information 1 ea NOTE XX ; Start 01/07/17 at 17:30 Glucose (Glutose) 15 gm Q15M PRN PO DECREASED GLUCOSE; Start 01/07/17 at 17:30 Glucose (Glutose) 22.5 gm Q15M PRN PO DECREASED GLUCOSE; Start 01/07/17 at 17: 30 Dextrose (D50w Syringe) 25 ml Q15M PRN IV DECREASED GLUCOSE; Start 01/07/17 at 17:30 Dextrose (D50w Syringe) 50 ml Q15M PRN IV DECREASED GLUCOSE; Start 01/07/17 at 17:30 Glucagon (Glucagen) 1 mg Q15M PRN IM DECREASED GLUCOSE; Start 01/07/17 at 17:30 Glucose (Glutose) 15 gm Q15M PRN BUCCAL DECREASED GLUCOSE; Start 01/07/17 at 17 :30 Nifedipine (Procardia Xl) 30 mg DAILY PO Last administered on 01/20/17 09:18; Admin Dose 30 MG; Start 01/08/17 at 09:00 Lactulose (Enulose) 20 gm HS PO Last administered on 01/19/17 21:41; Admin Dose 20 GM; Start 01/07/17 at 21:00 Docusate Sodium (Colace) 100 mg BID PRN PO CONSTIPATION Last administered on 09:10; Admin Dose 100 MG; Start 01/08/17 at 14:00 Acetaminophen (Tylenol Tab) 500 mg Q6H PRN PO PAIN AND OR ELEVATED TEMP Last administered on 01/20/17 09:27; Admin Dose 500 MG; Start 01/08/17 at 15:30 Acetaminophen/ Hydrocodone Bitart ([place] (5/325)) 1 tab Q4H PRN PO PAIN Last administered on 01/20/17 02:04; Admin Dose 1 TAB; Start 01/09/17 at 08:30 Diagnostic Test (Pha) (Accu-Chek) 1 ea 02 XX Last administered on 01/20/17 02: 04; Admin Dose 1 EA; Start 01/15/17 at 02:00 Heparin Sodium (Porcine) (Heparin (5000 Units/0.5 ml)) 5,000 unit BID SC Last administered on 01/20/17 09:16; Admin Dose 5,000 UNIT; Start 01/14/17 at 21:00 Insulin Aspart (Novolog Insulin Pen) 10 unit ONCE PRN SC ELEVATED GLUCOSE; Start 01/17/17 at 02:00 Insulin Glargine 30 unit 30 unit DAILY@20 SC Last administered on 01/19/17 21: 56; Admin Dose 30 UNIT; Start 01/17/17 at 20:00 Sodium Chloride (1/2 NS) 1,000 ml @ 40 mls/hr Q24H IV Last administered on 01/18 21:32; Admin Dose 75 MLS/HR; Start 01/17/17 at 17:00; Status Future Hold Nitroglycerin 1 tab 1 tab Q5M PRN SL ANGINA; Start 01/18/17 at 21:30 Cefotaxime Sodium 50 ml @ 100 mls/hr Q12 IVPB Last administered on 01/20/17 09:17; Admin Dose 100 MLS/HR; Start 01/19/17 at 12:00 Bumetanide/ Dextrose (Bumex/D5W) 250 ml @ 10 mls/hr Q24H IV Last administered on 01/19/17 14:09; Admin Dose 10 MLS/HR; Start 01/19/17 at 14:30 Epoetin Sean (Epogen (Esrd)) 10,000 units MoWeFr@17 SC Last administered on 18:05; Admin Dose 10,000 UNITS; Start 01/19/17 at 17:00 Methylprednisolone Sodium Succinate (Solu-Medrol) 20 mg DAILY IV Last administered on 01/20/17 09:17; Admin Dose 20 MG; Start 01/20/17 at 09:00 STUART STANLEY MD Jan 20, 2017 12:14
--- NOTE | 2017-01-20 12:27 | CONS ---
Date/Time of Note Date/Time of Note DATE: 01/20/17 TIME: 12:26 Consult Date/Type/Reason Admit Date/Time Jan 07, 2017 at 10:13 Initial Consult Date 01/09/17 Type of Consultation: Pulmonary Ordering Provider: JENY MORA MD Subjective Still experiencing shortness of breath on minimal exertion. Significant abdominal distention. Objective Vital Signs Date Time Temp Pulse Resp B/P Pulse Ox O2 Delivery O2 Flow Rate FiO2 01/20/17 12:11 99.4 80 18 127/59 92 01/20/17 11:48 Nasal Cannula 3.0 01/19/17 02:12 28 Intake and Output 01/19/17 01/19/17 01/20/17 14:59 22:59 06:59 Intake Total 720 ml Output Total 1100 ml Balance -380 ml Exam GENERAL: VITAL SIGNS: per chart NECK: Supple. No JVD or lymphadenopathy. Obese gentleman CARDIAC EXAM: S1, S2. No added sounds or murmurs. CHEST: Diminished air entry both lung bases ABDOMEN: Obese distended but no guarding or rebound EXTREMITIES: No cyanosis, clubbing or edema. NEUROLOGIC: Generalized weakness. Results/Medications Result Diagram: 01/20/17 0701/20/17704 Results 24 hrs Laboratory Tests Test 01/19/17 12:29 01/19/17 14:10 01/19/17 18:00 01/19/17 21:45 Bedside Glucose 184 267 H 299 H Iron Level < 10 L Total Iron Binding Capacity 297 Percent Iron Saturation Ferritin 20.5 Troponin I 0.258 *H Parathyroid Hormone (Intact) Test 01/20/17 01:56 01/20/17 07:05 01/20/17 07:58 01/20/17 12:12 Bedside Glucose 236 H 174 239 H White Blood Count 17.0 H Red Blood Count 3.21 L Hemoglobin 8.2 L Hematocrit 27.0 L Mean Corpuscular Volume 84.1 Mean Corpuscular Hemoglobin 25.5 L Mean Corpuscular Hemoglobin Concent 30.4 L Red Cell Distribution Width 16.9 H Platelet Count 96 L Mean Platelet Volume 11.7 H Neutrophils % 89.6 H Lymphocytes % 2.3 L Monocytes % 7.5 Eosinophils % 0.0 Basophils % 0.1 Nucleated Red Blood Cells % 0.0 Neutrophils # 15.3 H Lymphocytes # 0.4 L Monocytes # 1.3 H Eosinophils # 0.0 Basophils # 0.0 Nucleated Red Blood Cells # 0.0 Sodium Level 129 L Potassium Level 4.7 Chloride Level 99 Carbon Dioxide Level 28 Anion Gap 7 L Blood Urea Nitrogen 106 H Creatinine 3.26 H Glucose Level 169 Calcium Level 8.2 L Phosphorus Level 6.3 H Magnesium Level 3.0 H Total Bilirubin 0.3 Direct Bilirubin 0.00 Indirect Bilirubin 0.3 Aspartate Amino Transf (AST/SGOT) 39 Alanine Aminotransferase (ALT/SGPT) 50 Alkaline Phosphatase 95 Ammonia 57 #H Lactate Dehydrogenase 617 Total Protein 6.8 Albumin 3.1 L Globulin 3.70 H Albumin/Globulin Ratio 0.83 Thyroid Stimulating Hormone (TSH) 0.187 L Thyroxine (T4) 5.1 L Medications Current Medications Atorvastatin Calcium (Lipitor) 20 mg HS PO Last administered on 01/12/17 21:03 ; Admin Dose 20 MG; Start 01/07/17 at 21:00 Miscellaneous Information 1 ea NOTE XX ; Start 01/07/17 at 17:30 Glucose (Glutose) 15 gm Q15M PRN PO DECREASED GLUCOSE; Start 01/07/17 at 17:30 Glucose (Glutose) 22.5 gm Q15M PRN PO DECREASED GLUCOSE; Start 01/07/17 at 17: 30 Dextrose (D50w Syringe) 25 ml Q15M PRN IV DECREASED GLUCOSE; Start 01/07/17 at 17:30 Dextrose (D50w Syringe) 50 ml Q15M PRN IV DECREASED GLUCOSE; Start 01/07/17 at 17:30 Glucagon (Glucagen) 1 mg Q15M PRN IM DECREASED GLUCOSE; Start 01/07/17 at 17:30 Glucose (Glutose) 15 gm Q15M PRN BUCCAL DECREASED GLUCOSE; Start 01/07/17 at 17 :30 Nifedipine (Procardia Xl) 30 mg DAILY PO Last administered on 01/20/17 09:18; Admin Dose 30 MG; Start 01/08/17 at 09:00 Lactulose (Enulose) 20 gm HS PO Last administered on 01/19/17 21:41; Admin Dose 20 GM; Start 01/07/17 at 21:00 Docusate Sodium (Colace) 100 mg BID PRN PO CONSTIPATION Last administered on 09:10; Admin Dose 100 MG; Start 01/08/17 at 14:00 Acetaminophen (Tylenol Tab) 500 mg Q6H PRN PO PAIN AND OR ELEVATED TEMP Last administered on 01/20/17 09:27; Admin Dose 500 MG; Start 01/08/17 at 15:30 Acetaminophen/ Hydrocodone Bitart ([place] (5/325)) 1 tab Q4H PRN PO PAIN Last administered on 01/20/17 02:04; Admin Dose 1 TAB; Start 01/09/17 at 08:30 Diagnostic Test (Pha) (Accu-Chek) 1 ea 02 XX Last administered on 01/20/17 02: 04; Admin Dose 1 EA; Start 01/15/17 at 02:00 Heparin Sodium (Porcine) (Heparin (5000 Units/0.5 ml)) 5,000 unit BID SC Last administered on 01/20/17 09:16; Admin Dose 5,000 UNIT; Start 01/14/17 at 21:00 Insulin Aspart (Novolog Insulin Pen) 10 unit ONCE PRN SC ELEVATED GLUCOSE; Start 01/17/17 at 02:00 Insulin Glargine 30 unit 30 unit DAILY@20 SC Last administered on 01/19/17 21: 56; Admin Dose 30 UNIT; Start 01/17/17 at 20:00 Sodium Chloride (1/2 NS) 1,000 ml @ 40 mls/hr Q24H IV Last administered on 01/18 21:32; Admin Dose 75 MLS/HR; Start 01/17/17 at 17:00; Status Future Hold Nitroglycerin 1 tab 1 tab Q5M PRN SL ANGINA; Start 01/18/17 at 21:30 Cefotaxime Sodium 50 ml @ 100 mls/hr Q12 IVPB Last administered on 01/20/17 09:17; Admin Dose 100 MLS/HR; Start 01/19/17 at 12:00 Bumetanide/ Dextrose (Bumex/D5W) 250 ml @ 10 mls/hr Q24H IV Last administered on 01/19/17 14:09; Admin Dose 10 MLS/HR; Start 01/19/17 at 14:30 Epoetin Sean (Epogen (Esrd)) 10,000 units MoWeFr@17 SC Last administered on 18:05; Admin Dose 10,000 UNITS; Start 01/19/17 at 17:00 Methylprednisolone Sodium Succinate (Solu-Medrol) 20 mg DAILY IV Last administered on 01/20/17t 09:17; Admin Dose 20 MG; Start 01/20/17 at 09:00 Assessment/Plan Chief Complaint/Hosp Course IMP: 1. Dyspnea--likely multifactorial, however, a component of asthma +/- ABPA present. + high IgE and + IgG for aspergillus and mucoid impaction on prior CT probable significant component secondary to obesity and possible underlying ascites from cirrhosis. 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 YEVGENIY 4. CKD RECS: 1. BD's 2. CS decrease steroids 3. Fluid restriction 4. Encourage out of bed 5. Agree may require hemodialysis which may help with volume status and respiratory status 7. Agree with paracentesis Problems: GUERITA RESENDIZ MD, [facility] Jan 20, 2017 12:27
--- NOTE | 2017-01-20 14:06 | RADRPT ---
PROCEDURE: Ultrasound guided paracentesis. CLINICAL INDICATION: Ascites and shortness of breath. COMPARISON: No prior studies are available for comparison. TECHNIQUE: The risks, benefits, and alternatives were explained to the patient and/or the patient's family, inc luding but not limited to bleeding, infection, pain, visceral or vascular damage, shock, and . The patient and/or the patient's family understood the risks and the alternatives and wished to pro ceed with the procedure. Informed written consent was obtained. A procedural time out was performed . The patient's name, date of , and procedure to be performed were verified. Utilizing ultrasound guidance, optimal location for entry to the peritoneal cavity was ascertained. The overlying skin was prepped and draped in the usual sterile fashion. Approximately 10 ml of 1% Xylocaine was injected locally for pain control. Using ultrasound guidance, an 8 [place] catheter wa s introduced into the peritoneal cavity in the left lower quadrant without difficulty. FINDINGS: Initial images demonstrate ascites. Approximately 0.900 liters of cloudy white fluid was aspirated and sent for laboratory analysis. The patient tolerated the procedure well without complication. IMPRESSION: 1. Successful ultrasound-guided paracentesis. RPTAT: QQ .Ulices Silva MD, MD Date Time Electronically viewed and signed by .Ulices Silva MD, on 01/20/2017 14:05 .R/
[2017-01-20] MEDS ORDERED: LIDOCAINE 1% (MPF) 5 ML VIAL ONE (14:16)
[2017-01-20] MEDS: BUMETANIDE 25 MG in DEXTROSE 5% 150 ML IV SCH (15:33)
--- NOTE | 2017-01-20 16:58 | RADRPT ---
Echocardiogram Report Patient Name: CYNTHIA STEINER Gender: Male Date: 1955 Study Date: 20-Jan-2017 Anode Adjuster: Gertrudis [facility] Location: 508 Ref. Physician: AGUILAR MEEKS Quality: Good Procedures: Transthoracic echocardiogram with complete 2D, M-Mode, and doppler examination. Indications: Trop elevation. 2D/M Mode Doppler Measurement Value Normal Ranges Measurement Value Normal Ranges LVIDd 2D 5.6 3.5 - 5.6 cm LAM Vmax 1.8 cm2 LVIDs 2D 5.0 2.1 - 4.1 cm AV Peak Alonso 2.0 m/sec FS 2D 10.0 % AV Peak PG 17.0 mmHg LVPWd 2D 1.3 0.6 - 1.1 cm LVOT Peak Alonso 1.4 m/sec IVSd 2D 1.3 0.6 - 1.1 cm LVOT Peak PG 8.0 mmHg IVS/LVPW 2D 1.0 MV E Peak Alonso 1.3 m/sec AoR Diam 2D 3.6 2.0 - 3.7 cm MV A Peak Alonso 0.9 m/sec LA/Ao 2D 1 0 - 1 MV E/A 1.4 EDV 2D 175.0 cm3 MV Decel Time 173 msec ESV 2D 127.0 cm3 MV E/A 1.4 LA Dimen 2D 4.1 2.3 - 4.0 cm MR Peak PG 40.0 mmHg LVOT Diam 1.8 cm MR Peak Alonso 3.2 m/sec LVOT Area 2.5 cm2 TR Peak Alonso 2.9 m/sec TR Peak PG 35.0 mmHg RVSP 38.0 mmHg Findings Left Ventricle: Normal left ventricular systolic function. Mild concentric left ventricular hypertrophy. Mild enlargement of left ventricle cavity. Ejection fraction is visually estimated at 5560 %. Tissue Doppler/Mitral Doppler indices are consistent with impaired relaxation (Stage I diastolic dysfunction). Right Ventricle: Normal right ventricular size. Normal right ventricular systolic function. Left Atrium: There is mild enlargement of left atrium. Right Atrium: The right atrium is normal in size. Mitral Valve: Mitral valve leaflets appear mildly thickened. Mild mitral annular calcification. Mild mitral valve regurgitation. Aortic Valve: No hemodynamically significant aortic stenosis by doppler. Aortic cusps appear mildly calcified. Trileaflet aortic valve. Mild aortic valve regurgitation. Tricuspid Valve: Normal appearance of the tricuspid valve. Right ventricular systolic pressure is consistent with mild pulmonary hypertension. Estimated peak PA systolic pressure 38 mmHg. There is mild tricuspid regurgitation. Pulmonic Valve: Normal pulmonic valve appearance. There is trace pulmonic regurgitation. Pericardium: Normal pericardium with no significant pericardial effusion. Aorta: Normal aortic root. IVC: The IVC is not well visualized. Conclusions Very technically difficult study due to patient body habitus with limited visualization of cardiac structures/wall in apical views. Grossly normal left ventricular systolic function in areas visualized. Mild concentric left ventricular hypertrophy. Mild enlargement of left ventricle cavity. Ejection fraction is visually estimated at 55-60 %. Tissue Doppler/Mitral Doppler indices are consistent with impaired relaxation (Stage I diastolic dysfunction). Normal right ventricular size. Normal right ventricular systolic function. There is mild enlargement of left atrium. No hemodynamically significant aortic stenosis by doppler. Aortic cusps appear mildly calcified. Trileaflet aortic valve. Mild aortic valve regurgitation. Normal appearance of the tricuspid valve. Right ventricular systolic pressure is consistent with mild pulmonary hypertension. Estimated peak PA systolic pressure 38 mmHg. There is mild tricuspid regurgitation. Normal pericardium with no significant pericardial effusion. Electronically Signed By: Aguilar Meeks 20-Jan-2017 16:57:43 -0700 Patient Name: CYNTHIA STEINER Study Date: 20-Jan-2017 [id number]
[2017-01-20 17:10] LABS: FLD CLARITY SLIGHTLY CLOUDY; FLD TYPE ASCITES
[2017-01-20 17:11] LABS: FLD COLOR YELLOW; FLD WBC 55 /cmm
[2017-01-20 17:12] LABS: FLUID LYMPHOCYTES 57 %; FLUID MONOCYTES 36 %; FLUID NEUTROPHILS 7 %; FLUID RBC EST 4+
--- NOTE | 2017-01-20 17:13 | CONS ---
Date/Time of Note Date/Time of Note DATE: 01/20/17 TIME: 16:59 Assessment/Plan Assessment/Plan Chief Complaint/Hosp Course Assessment: - Dyspnea- pulm edema, likely 2/2 MICHELL/CLF. - Elevated trop- atypical cp, ekg without acute abnl, no changes from admit. echo poor quality, but no obvious wall motion abnl, normal overall fxn. also with renal failure ? type ii vs type i nstemi. would not recommend invasive testing at this time given renal failure and risk for WILBERT/progression to dialysis. 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 cont to monitor. Problems: Consultation Date/Type/Reason Admit Date/Time Jan 07, 2017 at 10:13 Initial Consult Date 01/09/17 Type of Consultation: cardiology Referring Provider: JENY MORA MD 24 HR Interval Summary Free Text/Dictation reports cont sob, fatigue. no chest pain. tele reviewed, nsr no events. Detailed Summary Eyes: no complaints ENT: no complaints Respiratory: shortness of breath Cardiovascular: no complaints Gastrointestinal: other (inc girth) Exam/Review of Systems Vital Signs Vitals Vital Signs Date Time Temp Pulse Resp B/P Pulse Ox O2 Delivery O2 Flow Rate FiO2 01/20/17 16:27 85 24 97 Nasal Cannula 2.0 01/20/17 15:45 98.9 127/66 01/19/17 02:12 28 Intake and Output 01/19/17 01/19/17 01/20/17 15:00 23:00 07:00 Intake Total 720 ml Output Total 1100 ml Balance -380 ml Exam Constitutional: alert, obese, oriented Psych: nl mood/affect, no complaints Head: normocephalic Eyes: icteric ENMT: mucosa pink and moist, nl external ears & nose Neck: non-tender, supple Respiratory: crackles in bases Cardiovascular: edema (2+ pitting to legs/thighs), nl pulses, regular rate and rhythm, systolic murmur, No bruits, No diastolic murmur, No irregular rhythm, No jugular venous distention (JVD) Gastrointestinal: ascites, distended, hepatomegaly, soft Extremities: normal pulses 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: 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 intact, nl mental status Results Result Diagram: 01/20/17 0705 01/20/17 0705 Results 24 hrs Laboratory Tests Test 01/19/17 18:00 01/19/17 21:45 01/20/17 01:56 01/20/17 07:05 Bedside Glucose 267 H 299 H 236 H White Blood Count 17.0 H Red Blood Count 3.21 L Hemoglobin 8.2 L Hematocrit 27.0 L Mean Corpuscular Volume 84.1 Mean Corpuscular Hemoglobin 25.5 L Mean Corpuscular Hemoglobin Concent 30.4 L Red Cell Distribution Width 16.9 H Platelet Count 96 L Mean Platelet Volume 11.7 H Neutrophils % 89.6 H Lymphocytes % 2.3 L Monocytes % 7.5 Eosinophils % 0.0 Basophils % 0.1 Nucleated Red Blood Cells % 0.0 Neutrophils # 15.3 H Lymphocytes # 0.4 L Monocytes # 1.3 H Eosinophils # 0.0 Basophils # 0.0 Nucleated Red Blood Cells # 0.0 Sodium Level 129 L Potassium Level 4.7 Chloride Level 99 Carbon Dioxide Level 28 Anion Gap 7 L Blood Urea Nitrogen 106 H Creatinine 3.26 H Glucose Level 169 Calcium Level 8.2 L Phosphorus Level 6.3 H Magnesium Level 3.0 H Total Bilirubin 0.3 Direct Bilirubin 0.00 Indirect Bilirubin 0.3 Aspartate Amino Transf (AST/SGOT) 39 Alanine Aminotransferase (ALT/SGPT) 50 Alkaline Phosphatase 95 Ammonia 57 #H Lactate Dehydrogenase 617 Total Protein 6.8 Albumin 3.1 L Globulin 3.70 H Albumin/Globulin Ratio 0.83 Thyroid Stimulating Hormone (TSH) 0.187 L Thyroxine (T4) 5.1 L Test 01/20/17 07:58 01/20/17 12:12 Bedside Glucose 174 239 H Medications Medications Current Medications Atorvastatin Calcium (Lipitor) 20 mg HS PO Last administered on 01/12/17t 21:03 ; Admin Dose 20 MG; Start 01/07/17 at 21:00 Miscellaneous Information 1 ea NOTE XX ; Start 01/07/17 at 17:30 Glucose (Glutose) 15 gm Q15M PRN PO DECREASED GLUCOSE; Start 01/07/17 at 17:30 Glucose (Glutose) 22.5 gm Q15M PRN PO DECREASED GLUCOSE; Start 01/07/17 at 17: 30 Dextrose (D50w Syringe) 25 ml Q15M PRN IV DECREASED GLUCOSE; Start 01/07/17 at 17:30 Dextrose (D50w Syringe) 50 ml Q15M PRN IV DECREASED GLUCOSE; Start 01/07/17 at 17:30 Glucagon (Glucagen) 1 mg Q15M PRN IM DECREASED GLUCOSE; Start 01/07/17 at 17:30 Glucose (Glutose) 15 gm Q15M PRN BUCCAL DECREASED GLUCOSE; Start 01/07/17 at 17 :30 Nifedipine (Procardia Xl) 30 mg DAILY PO Last administered on 01/20/17 09:18; Admin Dose 30 MG; Start 01/08/17 at 09:00 Lactulose (Enulose) 20 gm HS PO Last administered on 01/19/17 21:41; Admin Dose 20 GM; Start 01/07/17 at 21:00 Docusate Sodium (Colace) 100 mg BID PRN PO CONSTIPATION Last administered on 09:10; Admin Dose 100 MG; Start 01/08/17 at 14:00 Acetaminophen (Tylenol Tab) 500 mg Q6H PRN PO PAIN AND OR ELEVATED TEMP Last administered on 01/20/17 09:27; Admin Dose 500 MG; Start 01/08/17 at 15:30 Acetaminophen/ Hydrocodone Bitart ([place] (5/325)) 1 tab Q4H PRN PO PAIN Last administered on 01/20/17 15:42; Admin Dose 1 TAB; Start 01/09/17 at 08:30 Diagnostic Test (Pha) (Accu-Chek) 1 ea 02 XX Last administered on 01/20/17 02: 04; Admin Dose 1 EA; Start 01/15/17 at 02:00 Heparin Sodium (Porcine) (Heparin (5000 Units/0.5 ml)) 5,000 unit BID SC Last administered on 01/20/17 09:16; Admin Dose 5,000 UNIT; Start 01/14/17 at 21:00 Insulin Aspart (Novolog Insulin Pen) 10 unit ONCE PRN SC ELEVATED GLUCOSE; Start 01/17/17 at 02:00 Insulin Glargine 30 unit 30 unit DAILY@20 SC Last administered on 01/19/17 21: 56; Admin Dose 30 UNIT; Start 01/17/17 at 20:00 Sodium Chloride (1/2 NS) 1,000 ml @ 40 mls/hr Q24H IV Last administered on 01/18 21:32; Admin Dose 75 MLS/HR; Start 01/17/17 at 17:00; Status Future Hold Nitroglycerin 1 tab 1 tab Q5M PRN SL ANGINA; Start 01/18/17 at 21:30 Cefotaxime Sodium 50 ml @ 100 mls/hr Q12 IVPB Last administered on 01/20/17 09:17; Admin Dose 100 MLS/HR; Start 01/19/17 at 12:00 Bumetanide/ Dextrose (Bumex/D5W) 250 ml @ 10 mls/hr Q24H IV Last administered on 01/20/17 15:33; Admin Dose 10 MLS/HR; Start 01/19/17 at 14:30 Epoetin Sean (Epogen (Esrd)) 10,000 units MoWeFr@17 SC Last administered on 18:05; Admin Dose 10,000 UNITS; Start 01/19/17 at 17:00 Methylprednisolone Sodium Succinate (Solu-Medrol) 20 mg DAILY IV Last administered on 01/20/17 09:17; Admin Dose 20 MG; Start 01/20/17 at 09:00 Procedures Procedures us report reviewed tele per hpi MARISEL MEEKS Jan 20, 2017 17:09
[2017-01-20 17:21] LABS: FLUID GLUCOSE 208 mg/dl; FLUID TOTAL PROTEIN < 2.0 g/dl; FLUID TYPE FLUID
[2017-01-20] MEDS ORDERED: ASPIRIN (EC) 81 MG TAB PO ONE (17:30)
[2017-01-20] MEDS: ATORVASTATIN 20 MG TAB PO SCH ×2 (21:00→21:08)
[2017-01-20] MEDS: LACTULOSE 30ML CUP PO SCH (21:07)
[2017-01-20] MEDS: INSULIN GLARGINE [LANtus] 3 ML PEN SC SCH (21:22)
[2017-01-21] VITALS (11 sets, daily range): BP systolic 121–145; BP diastolic 58–79; PULSE 83–90; RESP 17–21
[2017-01-21] MEDS: ACCU-CHEK XX SCH (02:05)
[2017-01-21] MEDS: INSULIN ASPART [NOVOLOG] 3 ML PEN SC SCH ×4 (08:02→21:23)
[2017-01-21] MEDS: ALBUTEROL/IPRATROPIUM (NEB) 3 ML AMP HHN SCH ×4 (08:35→20:22)
[2017-01-21] MEDS: NIFEdipine (XL) 30 MG TAB PO SCH (08:49)
[2017-01-21] MEDS: METHYLPREDNISOLONE 40 MG INJ IV SCH (08:51)
--- NOTE | 2017-01-21 08:52 | CONS ---
Date/Time of Note Date/Time of Note DATE: 01/21/17 TIME: 08:45 Assessment/Plan Assessment/Plan Chief Complaint/Hosp Course Impression: 1. Chronic kidney disease. This patient has chronic kidney disease probably due to several factors. His urine protein / creatinine ratio is elevated at 6.9 g. This is consistent with nephrotic syndrome. His renal function has been decreased. Labs are pending today. He is now on a Bumex drip. He was in negative fluid balance yesterday however he still has massive amounts of peripheral edema consistent with anasarca. I will check his labs today when available.I have discussed doing hemodialysis with patient and his . He needs to have a vascular catheter placed ; however he is growing staph in blood . ID would prefer that we wait one more day before putting a catheter in to make sure that repeat blood cultures are now no growth . 2. 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 Hypertension 4. Hyperlipidemia 5. Anemia 6. Congestive heart failure 7. Obstructive sleep apnea Plan: 1. Continue Bumex drip 2. Epogen for anemia 3. If renal function does not improve and/or urine output does not increase then we will have to consider dialysis. I will discuss this with the patient and the family. 4. I will follow patient along with you Problems: Consultation Date/Type/Reason Admit Date/Time Jan 07, 2017 at 10:13 Initial Consult Date 01/19/17 Type of Consultation: renal Referring Provider: JENY MORA MD 24 HR Interval Summary Free Text/Dictation The patient is lethargic ; however he does arouse to verbal stimuli . He is now growing staph aureus in his blood . Exam/Review of Systems Vital Signs Vitals Vital Signs Date Time Temp Pulse Resp B/P Pulse Ox O2 Delivery O2 Flow Rate FiO2 01/21/17 08:37 3.0 01/21/17 08:35 78 24 98 Nasal Cannula 01/21/17 08:16 98.0 124/69 01/19/17 02:12 28 Intake and Output 01/20/17 01/20/17 01/21/17 15:00 23:00 07:00 Intake Total 1115 ml 200 ml Output Total 900 ml 600 ml Balance 215 ml -400 ml Exam Constitutional: frail, obese Respiratory: clear to auscultation, diminished breath sounds Cardiovascular: edema, regular rate and rhythm Gastrointestinal: ascites, soft Extremities: edema Results Result Diagram: 01/20/17 0701/20/17 0705 Results 24 hrs Laboratory Tests Test 01/20/17 12:12 01/20/17 13:45 01/20/17 17:21 01/20/17 21:06 Bedside Glucose 239 H 342 H 289 H Body Fluid Type ASCITES Body Fluid Volume 18.0 Body Fluid Color YELLOW Body Fluid Appearance SLIGHTLY CLOUDY Body Fluid WBC 55 Body Fluid RBC 4+ Body Fluid Neutrophils % 7 Body Fluid Lymphocytes (%) 57 Body Fluid Monocytes % 36 Body Fluid Glucose 208 Body Fluid Total Protein < 2.0 Body Fluid Lactate Dehydrogenase Test 01/21/17 02:02 01/21/17 07:56 Bedside Glucose 314 H 180 Medications Medications Current Medications Atorvastatin Calcium (Lipitor) 20 mg HS PO Last administered on 01/12/17 21:03 ; Admin Dose 20 MG; Start 01/07/17 at 21:00 Miscellaneous Information 1 ea NOTE XX ; Start 01/07/17 at 17:30 Glucose (Glutose) 15 gm Q15M PRN PO DECREASED GLUCOSE; Start 01/07/17 at 17:30 Glucose (Glutose) 22.5 gm Q15M PRN PO DECREASED GLUCOSE; Start 01/07/17 at 17: 30 Dextrose (D50w Syringe) 25 ml Q15M PRN IV DECREASED GLUCOSE; Start 01/07/17 at 17:30 Dextrose (D50w Syringe) 50 ml Q15M PRN IV DECREASED GLUCOSE; Start 01/07/17 at 17:30 Glucagon (Glucagen) 1 mg Q15M PRN IM DECREASED GLUCOSE; Start 01/07/17 at 17:30 Glucose (Glutose) 15 gm Q15M PRN BUCCAL DECREASED GLUCOSE; Start 01/07/17 at 17 :30 Nifedipine (Procardia Xl) 30 mg DAILY PO Last administered on 01/20/17 09:18; Admin Dose 30 MG; Start 01/08/17 at 09:00 Lactulose (Enulose) 20 gm HS PO Last administered on 01/20/17 21:07; Admin Dose 20 GM; Start 01/07/17 at 21:00 Docusate Sodium (Colace) 100 mg BID PRN PO CONSTIPATION Last administered on 09:10; Admin Dose 100 MG; Start 01/08/17 at 14:00 Acetaminophen (Tylenol Tab) 500 mg Q6H PRN PO PAIN AND OR ELEVATED TEMP Last administered on 01/20/17 09:27; Admin Dose 500 MG; Start 01/08/17 at 15:30 Acetaminophen/ Hydrocodone Bitart ([place] (5/325)) 1 tab Q4H PRN PO PAIN Last administered on 01/20/17 15:42; Admin Dose 1 TAB; Start 01/09/17 at 08:30 Diagnostic Test (Pha) (Accu-Chek) 1 ea 02 XX Last administered on 01/21/17 02: 05; Admin Dose 1 EA; Start 01/15/17 at 02:00 Heparin Sodium (Porcine) (Heparin (5000 Units/0.5 ml)) 5,000 unit BID SC Last administered on 01/20/17 21:08; Admin Dose 5,000 UNIT; Start 01/14/17 at 21:00 Insulin Aspart (Novolog Insulin Pen) 10 unit ONCE PRN SC ELEVATED GLUCOSE Last administered on 01/21/17 02:15; Admin Dose 10 UNIT; Start 01/17/17 at 02:00 Insulin Glargine 30 unit 30 unit DAILY@20 SC Last administered on 01/20/17 21: 22; Admin Dose 30 UNIT; Start 01/17/17 at 20:00 Sodium Chloride (1/2 NS) 1,000 ml @ 40 mls/hr Q24H IV Last administered on 01/18 21:32; Admin Dose 75 MLS/HR; Start 01/17/17 at 17:00; Status Future Hold Nitroglycerin 1 tab 1 tab Q5M PRN SL ANGINA; Start 01/18/17 at 21:30 Bumetanide/ Dextrose (Bumex/D5W) 250 ml @ 10 mls/hr Q24H IV Last administered on 01/20/17 15:33; Admin Dose 10 MLS/HR; Start 01/19/17 at 14:30 Epoetin Sean (Epogen (Esrd)) 10,000 units MoWeFr@17 SC Last administered on 18:05; Admin Dose 10,000 UNITS; Start 01/19/17 at 17:00 Methylprednisolone Sodium Succinate 20 mg 20 mg DAILY IV Last administered on 09:17; Admin Dose 20 MG; Start 01/20/17 at 09:00 Piperacillin Sod/ Tazobactam Sod (Zosyn 2.25gm/ 50ml (Pmx)) 50 ml @ 100 mls/hr Q6 IVPB ; Start 01/21/17 at 09:00 ANA MELENDEZ MD Jan 21, 2017 08:52
--- NOTE | 2017-01-21 08:53 | CONS ---
Date/Time of Note Date/Time of Note DATE: 01/21/17 TIME: 08:45 Assessment/Plan Assessment/Plan Chief Complaint/Hosp Course 1)Liver cirrhosis with portal HTN due to Hep C to repeat ammonia level 01/21 - ammonia level is mildly elevated at 57 consider lacutlose 2) CHF +/- pneumonia unable to tolerate lasix with worsening renal function 01/21 - in light of MSSA in blood and no open wounds or chronic IV in place, concern would be lung may be the portal of entry to start zosyn to cover for lung infection as well as the MSSA CXR does not show a lobar infiltrate 3) r/o SBP pt to get paracentesis later today cefotaxime was started by the primary if fevers not improving will broaden the coverage 01/20 - pt to get paracentesis today continue with cefotaxime 01/21 - low number of PMN's in ascitic fluid, this in not the source for his MSSA d/c cefotaxime 4) new onset fever with leukocytosis pt has been on steroids but this does not explain the new fever the potential sources would include, ascitic fluid, lung urinalysis does not suggest an infection will order beta d glucan, aspergillus galactomannan, procalcitonin in a.m. will order LE dopplers to make sure no DVT has developed if cefotaxime does not improve his fever, wbc then will broaden coverage to include lung infection 01/20 - await paracentesis and a.m. labs vanco added due to GPC in blood cx fevers appear improved 01/21 - MSSA is present in blood and urine cx u/a did not show signs of infection and so the urine may only be seeded from the bacteremia will order repeat u/a at this time d/c vanco/cefotaxime and start zosyn since there is no skin breakdown or ulcers the lung becomes a more likely portal of entry 5) MSSA bacteremia 01/20 - no central line in place, IV sites look ok await ID to see if true infection or a contaminant vanco started, will order repeat blood cx now 01/21 - true infection of blood with MSSA repeat blood cx from 01/20 is NGTD d/c vanco/cefotaxime and start zosyn check u/a Problems: Consultation Date/Type/Reason Admit Date/Time Jan 07, 2017 at 10:13 Initial Consult Date 01/19/17 Type of Consultation: ID Referring Provider: JENY MORA MD 24 HR Interval Summary Free Text/Dictation pt ate a little yesterday sleepy this a.m. no V, D pt had paracentesis yesterday no open wounds Exam/Review of Systems Vital Signs Vitals Vital Signs Date Time Temp Pulse Resp B/P Pulse Ox O2 Delivery O2 Flow Rate FiO2 01/21/17 08:37 3.0 01/21/17 08:35 78 24 98 Nasal Cannula 01/21/17 08:16 98.0 124/69 01/19/17 02:12 28 Intake and Output 01/20/17 01/20/17 01/21/17 15:00 23:00 07:00 Intake Total 1115 ml 200 ml Output Total 900 ml 600 ml Balance 215 ml -400 ml Exam Constitutional: alert ENMT: mucosa pink and moist Respiratory: diminished breath sounds Cardiovascular: regular rate and rhythm Gastrointestinal: distended, soft Results Result Diagram: 01/20/17 0701/20/17 0705 Results 24 hrs Laboratory Tests Test 01/20/17 12:12 01/20/17 13:45 01/20/17 17:21 01/20/17 21:06 Bedside Glucose 239 H 342 H 289 H Body Fluid Type ASCITES Body Fluid Volume 18.0 Body Fluid Color YELLOW Body Fluid Appearance SLIGHTLY CLOUDY Body Fluid WBC 55 Body Fluid RBC 4+ Body Fluid Neutrophils % 7 Body Fluid Lymphocytes (%) 57 Body Fluid Monocytes % 36 Body Fluid Glucose 208 Body Fluid Total Protein < 2.0 Body Fluid Lactate Dehydrogenase Test 01/21/17 02:02 01/21/17 07:56 Bedside Glucose 314 H 180 Medications Medications Current Medications Atorvastatin Calcium (Lipitor) 20 mg HS PO Last administered on 01/12/17t 21:03 ; Admin Dose 20 MG; Start 01/07/17 at 21:00 Miscellaneous Information 1 ea NOTE XX ; Start 01/07/17 at 17:30 Glucose (Glutose) 15 gm Q15M PRN PO DECREASED GLUCOSE; Start 01/07/17 at 17:30 Glucose (Glutose) 22.5 gm Q15M PRN PO DECREASED GLUCOSE; Start 01/07/17 at 17: 30 Dextrose (D50w Syringe) 25 ml Q15M PRN IV DECREASED GLUCOSE; Start 01/07/17 at 17:30 Dextrose (D50w Syringe) 50 ml Q15M PRN IV DECREASED GLUCOSE; Start 01/07/17 at 17:30 Glucagon (Glucagen) 1 mg Q15M PRN IM DECREASED GLUCOSE; Start 01/07/17 at 17:30 Glucose (Glutose) 15 gm Q15M PRN BUCCAL DECREASED GLUCOSE; Start 01/07/17 at 17 :30 Nifedipine (Procardia Xl) 30 mg DAILY PO Last administered on 01/20/17 09:18; Admin Dose 30 MG; Start 01/08/17 at 09:00 Lactulose (Enulose) 20 gm HS PO Last administered on 01/20/17 21:07; Admin Dose 20 GM; Start 01/07/17 at 21:00 Docusate Sodium (Colace) 100 mg BID PRN PO CONSTIPATION Last administered on 09:10; Admin Dose 100 MG; Start 01/08/17 at 14:00 Acetaminophen (Tylenol Tab) 500 mg Q6H PRN PO PAIN AND OR ELEVATED TEMP Last administered on 01/20/17 09:27; Admin Dose 500 MG; Start 01/08/17 at 15:30 Acetaminophen/ Hydrocodone Bitart ([place] (5/325)) 1 tab Q4H PRN PO PAIN Last administered on 01/20/17 15:42; Admin Dose 1 TAB; Start 01/09/17 at 08:30 Diagnostic Test (Pha) (Accu-Chek) 1 ea 02 XX Last administered on 01/21/17 02: 05; Admin Dose 1 EA; Start 01/15/17 at 02:00 Heparin Sodium (Porcine) (Heparin (5000 Units/0.5 ml)) 5,000 unit BID SC Last administered on 01/20/17 21:08; Admin Dose 5,000 UNIT; Start 01/14/17 at 21:00 Insulin Aspart (Novolog Insulin Pen) 10 unit ONCE PRN SC ELEVATED GLUCOSE Last administered on 01/21/17 02:15; Admin Dose 10 UNIT; Start 01/17/17 at 02:00 Insulin Glargine 30 unit 30 unit DAILY@20 SC Last administered on 01/20/17 21: 22; Admin Dose 30 UNIT; Start 01/17/17 at 20:00 Sodium Chloride (1/2 NS) 1,000 ml @ 40 mls/hr Q24H IV Last administered on 01/18 21:32; Admin Dose 75 MLS/HR; Start 01/17/17 at 17:00; Status Future Hold Nitroglycerin 1 tab 1 tab Q5M PRN SL ANGINA; Start 01/18/17 at 21:30 Bumetanide/ Dextrose (Bumex/D5W) 250 ml @ 10 mls/hr Q24H IV Last administered on 01/20/17 15:33; Admin Dose 10 MLS/HR; Start 01/19/17 at 14:30 Epoetin Sean (Epogen (Esrd)) 10,000 units MoWeFr@17 SC Last administered on 18:05; Admin Dose 10,000 UNITS; Start 01/19/17 at 17:00 Methylprednisolone Sodium Succinate 20 mg 20 mg DAILY IV Last administered on 09:17; Admin Dose 20 MG; Start 01/20/17 at 09:00 Piperacillin Sod/ Tazobactam Sod (Zosyn 2.25gm/ 50ml (Pmx)) 50 ml @ 100 mls/hr Q6 IVPB ; Start 01/21/17 at 09:00 DANYEL HART MD Jan 21, 2017 08:52
--- NOTE | 2017-01-21 08:59 | RADRPT ---
PROCEDURE: Chest 1 views. CLINICAL INDICATION: Shortness of breath. TECHNIQUE: AP views of the chest was obtained. COMPARISON: January 18, 2017 FINDINGS: The heart is large. Mild central pulmonary vascular congestion and interstitial prominence in both l ungs is unchanged. Scattered atelectasis is seen at the right lung base. Focal atelectasis versus minimal infiltrates in the left upper lobe are stable. The osseous structures are osteopenic, but a ppear grossly intact. IMPRESSION: Cardiomegaly . Stable central pulmonary vascular congestion and interstitial prominence in both lungs. Atelectasis at the right lung base. Stable, focal atelectasis versus minimal infiltrates in the left upper lobe. RPTAT: AA .Jorge Mcdaniels MD, Date Time Electronically viewed and signed by .Jorge Mcdaniels MD, on 01/21/2017 08:58 .P/
[2017-01-21 09:05] LABS: ADD SCAN DIFF NO
[2017-01-21 09:07] LABS: ABNORMAL IP MESSAGE 1; BASOPHILS % 0.1 % (0.0-2.0); EOSINOPHILS # 0.1 10^3/ul (0.0-0.5); EOSINOPHILS % 0.4 % (0.0-7.0); HEMATOCRIT 26.6 % (42.0-52.0); HEMOGLOBIN 7.9 g/dl (14.0-18.0); LYMPHOCYTES # 0.5 10^3/ul (0.8-2.9); LYMPHOCYTES % 3.5 % (15.0-51.0); MEAN CORPUSCULAR HEMOGLOBIN 25.1 pg (29.0-33.0); MEAN CORPUSCULAR HGB CONC 29.7 g/dl (32.0-37.0); MEAN CORPUSCULAR VOLUME 84.4 fl (82.0-101.0); MEAN PLATELET VOLUME 12.3 fl (7.4-10.4); MONOCYTE # 1.2 10^3/ul (0.3-0.9); MONOCYTES % 8.8 % (0.0-11.0); NEUTROPHIL # 11.3 10^3/ul (1.6-7.5); NEUTROPHILS % 86.7 % (39.0-77.0); PLATELET COUNT 92 10^3/UL (140-415); RED BLOOD COUNT 3.15 10^6/ul (4.70-6.10)
[2017-01-21 09:29] LABS: INR 1.27; PT RATIO 1.3
[2017-01-21 09:30] LABS: PARTIAL THROMBOPLASTIN TIME 32.7 Sec (25.0-35.0)
[2017-01-21 09:36] LABS: ALBUMIN/GLOBULIN RATIO 0.83; BILIRUBIN,INDIRECT 0.4 mg/dl (0-1.1); BILIRUBIN,TOTAL 0.4 mg/dl (0.2-1.3); CALCIUM 8.3 mg/dl (8.4-10.2); CREATININE 3.38 mg/dl (0.61-1.24); POTASSIUM 4.3 mmol/L (3.5-5.1); TOTAL PROTEIN 6.6 g/dl (6.1-8.1)
[2017-01-21 09:40] LABS: CALCIUM 8.1 mg/dl (8.4-10.2); CREATININE 3.47 mg/dl (0.61-1.24); PHOSPHORUS 6.8 mg/dl (2.5-4.9)
[2017-01-21] MEDS: PIPER-TAZO 2.25 GM (PMX) 50 ML IVPB SCH ×4 (09:48→23:30)
[2017-01-21] MEDS: HYDROCODONE/APAP (5/325) TAB PO PRN ×2 (09:53→23:29)
--- NOTE | 2017-01-21 10:09 | PN ---
Date/Time of Note Date/Time of Note DATE: 01/21/17 TIME: 09:58 Assessment/Plan Lines/Catheters IV Catheter Type (from Nrs): Saline Lock Sykes in Place (from Nrs): Yes Assessment/Plan Chief Complaint/Hosp Course 1. Mob[place] obesity: BMI 48 -encourage weight loss -nutrition optimization -eventual bariatric surgery when medically stable 2. CHF: dyspnea with pulmonary congestion; dyspnea improved -continue diuresis per cards -medical optimization 3. Elevated troponin: renal failure vs NSTEMI; invasive/stress testing not recommended at this time per cards -trend and monitor 4. Chronic kidney disease: cr worsening; on bumex gtt; dialysis to be started -per renal 5. Diabetes: blood sugar labile; on long acting and short acting insulin -optimize blood sugar control 6. Hypertension: controlled -cont. antihypertensives 7. YEVGENIY: morbid obesity, dyspnea improved -cpap 8. Leukocytosis: on steroids; blood and urine growing staph vs. dvt; no fevers; wbc improving, ascitic fluid (low PMN- not the source per ID) -abx per sensitivity 9. Dyspnea: multifactorial chf+ morbid obesity + ascites + YEVGENIY; improved -supportive -as above 10. Hyponatremia: likely overloaded, CHF - judicious fluid management -diuretics per renal 11. Anemia: CKD +/- chronic disease; doubt active bleed; h/h lower -monitor -transfuse as needed 12. Hypothyroidism; low tsh/t4 -medical optimization 13. Hypocalcemia: likely 2/2 poor nutrition + hypothyroid -optimize lytes -as above -medical optimization Patient seen and examined in collaboration with Dr. Marcelino Morales Problems: Subjective 24 Hr Interval Summary Awake, conversant. Bilateral upper and lower extremity pain. No co cp, palpitations, sob, cough, no fevers, chills, n/v/d, mccallum, sz.agreed to start dialysis Exam/Review of Systems Vital Signs Vitals Vital Signs Date Time Temp Pulse Resp B/P Pulse Ox O2 Delivery O2 Flow Rate FiO2 01/21/17 08:37 3.0 01/21/17 08:35 78 24 98 Nasal Cannula 01/21/17 08:16 98.0 124/69 01/19/17 02:12 28 Intake and Output 01/20/17 01/20/17 01/21/17 15:00 23:00 07:00 Intake Total 1115 ml 200 ml Output Total 900 ml 600 ml Balance 215 ml -400 ml Exam Free Text/Dictation Constitutional: alert, obese, oriented, more awake, well developed, Psych: nl mood/affect, no complaints Head: atraumatic, normocephalic Eyes: nl conjunctiva, nl lids ENMT: mucosa pink and moist Neck: non-tender, supple Respiratory: diminished breath sounds; no use of accessory muscles Cardiovascular: regular rate and rhythm Gastrointestinal: distended (mod; improved), non-tender, soft Genitourinary - Male: nl penis, nl scrotum, No CVA tenderness; sykes, clear urine output Musculoskeletal: nl extremities to inspection Extremities: edema (ble 4+), normal pulses 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: nl mental status, nl speech Skin: No rash or lesions Results Result Diagram: 01/21/1781801/21/17 0819 ERLINDA VALLE NP Jan 21, 2017 10:08
[2017-01-21 10:10] LABS: POTASSIUM 4.5 mmol/L (3.5-5.1)
[2017-01-21 12:40] LABS: ADD SCAN DIFF NO
[2017-01-21 12:43] LABS: ABNORMAL IP MESSAGE 1; EOSINOPHILS # 0.1 10^3/ul (0.0-0.5); EOSINOPHILS % 0.4 % (0.0-7.0); HEMATOCRIT 26.3 % (42.0-52.0); LYMPHOCYTES # 0.3 10^3/ul (0.8-2.9); LYMPHOCYTES % 2.3 % (15.0-51.0); MEAN CORPUSCULAR HEMOGLOBIN 25.6 pg (29.0-33.0); MEAN CORPUSCULAR HGB CONC 30.4 g/dl (32.0-37.0); MEAN PLATELET VOLUME 11.9 fl (7.4-10.4); MONOCYTE # 0.4 10^3/ul (0.3-0.9); MONOCYTES % 3.4 % (0.0-11.0); NEUTROPHIL # 10.5 10^3/ul (1.6-7.5); NEUTROPHILS % 93.5 % (39.0-77.0); RED BLOOD COUNT 3.13 10^6/ul (4.70-6.10); RED CELL DISTRIBUTION WIDTH 16.8 % (11.5-14.5); WHITE BLOOD COUNT 11.3 10^3/ul (4.8-10.8)
[2017-01-21 12:50] LABS: PLATELET COUNT 86 10^3/UL (140-415)
[2017-01-21] MEDS: BUMETANIDE 25 MG in DEXTROSE 5% 150 ML IV SCH (14:30)
--- NOTE | 2017-01-21 15:09 | CONS ---
Date/Time of Note Date/Time of Note DATE: 01/21/17 TIME: 15:07 Consult Date/Type/Reason Admit Date/Time Jan 07, 2017 at 10:13 Initial Consult Date 01/09/17 Type of Consultation: Pulmonary Ordering Provider: JENY MORA MD Subjective Still experiencing significant shortness of breath on minimal exertion. Objective Vital Signs Date Time Temp Pulse Resp B/P Pulse Ox O2 Delivery O2 Flow Rate FiO2 01/21/17 13:01 84 24 95 Nasal Cannula 3.0 01/21/17 11:42 97.8 124/68 01/19/17 02:12 28 Intake and Output 01/20/17 01/20/17 01/21/17 15:00 23:00 07:00 Intake Total 1115 ml 200 ml Output Total 900 ml 600 ml Balance 215 ml -400 ml Exam GENERAL: Obese gentleman comfortable at rest no acute distress VITAL SIGNS: per chart NECK: Supple. No JVD or lymphadenopathy. CARDIAC EXAM: S1, S2. No added sounds or murmurs. CHEST: clear bilaterally, No added sounds, rales or wheezes ABDOMEN: Soft, nontender. No guarding or rebound. EXTREMITIES: No cyanosis, clubbing or edema. NEUROLOGIC: Generalized weakness. No focal deficits. Results/Medications Result Diagram: 01/21/17 1208 01/21/17 0819 Results 24 hrs Laboratory Tests Test 01/20/17 17:21 01/20/17 21:06 01/21/17 02:02 01/21/17 07:56 Bedside Glucose 342 H 289 H 314 H 180 Test 01/21/17 08:19 01/21/17 11:33 01/21/17 12:08 White Blood Count 13.0 #H 11.3 H Red Blood Count 3.15 L 3.13 L Hemoglobin 7.9 L 8.0 L Hematocrit 26.6 L 26.3 L Mean Corpuscular Volume 84.4 84.0 Mean Corpuscular Hemoglobin 25.1 L 25.6 L Mean Corpuscular Hemoglobin Concent 29.7 L 30.4 L Red Cell Distribution Width 17.0 H 16.8 H Platelet Count 92 L 86 L Mean Platelet Volume 12.3 H 11.9 H Neutrophils % 86.7 H 93.5 H Lymphocytes % 3.5 L 2.3 L Monocytes % 8.8 3.4 Eosinophils % 0.4 0.4 Basophils % 0.1 0.0 Nucleated Red Blood Cells % 0.0 0.0 Neutrophils # 11.3 H 10.5 H Lymphocytes # 0.5 L 0.3 L Monocytes # 1.2 H 0.4 Eosinophils # 0.1 0.1 Basophils # 0.0 0.0 Nucleated Red Blood Cells # 0.0 0.0 Prothrombin Time 16.0 H Prothrombin Time Ratio 1.3 INR International Normalized Ratio 1.27 Activated Partial Thromboplast Time 32.7 Sodium Level 131 L Potassium Level 4.5 Chloride Level 102 Carbon Dioxide Level 28 Anion Gap 6 L Blood Urea Nitrogen 106 H Creatinine 3.47 H Glucose Level 182 Calcium Level 8.1 L Phosphorus Level 6.8 H Magnesium Level 3.0 H Total Bilirubin 0.4 Direct Bilirubin 0.00 Indirect Bilirubin 0.4 Aspartate Amino Transf (AST/SGOT) 32 Alanine Aminotransferase (ALT/SGPT) 49 Alkaline Phosphatase 94 Troponin I 0.485 *H Total Protein 6.6 Albumin 3.0 L Globulin 3.60 H Albumin/Globulin Ratio 0.83 Bedside Glucose 198 Medications Current Medications Atorvastatin Calcium (Lipitor) 20 mg HS PO Last administered on 01/12/17 21:03 ; Admin Dose 20 MG; Start 01/07/17 at 21:00 Miscellaneous Information 1 ea NOTE XX ; Start 01/07/17 at 17:30 Glucose (Glutose) 15 gm Q15M PRN PO DECREASED GLUCOSE; Start 01/07/17 at 17:30 Glucose (Glutose) 22.5 gm Q15M PRN PO DECREASED GLUCOSE; Start 01/07/17 at 17: 30 Dextrose (D50w Syringe) 25 ml Q15M PRN IV DECREASED GLUCOSE; Start 01/07/17 at 17:30 Dextrose (D50w Syringe) 50 ml Q15M PRN IV DECREASED GLUCOSE; Start 01/07/17 at 17:30 Glucagon (Glucagen) 1 mg Q15M PRN IM DECREASED GLUCOSE; Start 01/07/17 at 17:30 Glucose (Glutose) 15 gm Q15M PRN BUCCAL DECREASED GLUCOSE; Start 01/07/17 at 17 :30 Nifedipine (Procardia Xl) 30 mg DAILY PO Last administered on 01/21/17 08:49; Admin Dose 30 MG; Start 01/08/17 at 09:00 Lactulose (Enulose) 20 gm HS PO Last administered on 01/20/17 21:07; Admin Dose 20 GM; Start 01/07/17 at 21:00 Docusate Sodium (Colace) 100 mg BID PRN PO CONSTIPATION Last administered on 09:10; Admin Dose 100 MG; Start 01/08/17 at 14:00 Acetaminophen (Tylenol Tab) 500 mg Q6H PRN PO PAIN AND OR ELEVATED TEMP Last administered on 01/20/17 09:27; Admin Dose 500 MG; Start 01/08/17 at 15:30 Acetaminophen/ Hydrocodone Bitart ([place] (5/325)) 1 tab Q4H PRN PO PAIN Last administered on 01/21/17 09:53; Admin Dose 1 TAB; Start 01/09/17 at 08:30 Diagnostic Test (Pha) (Accu-Chek) 1 ea 02 XX Last administered on 01/21/17 02: 05; Admin Dose 1 EA; Start 01/15/17 at 02:00 Insulin Aspart 10 unit 10 unit ONCE PRN SC ELEVATED GLUCOSE Last administered on 01/21/17 02:15; Admin Dose 10 UNIT; Start 01/17/17 at 02:00 Sodium Chloride (1/2 NS) 1,000 ml @ 40 mls/hr Q24H IV Last administered on 01/18 21:32; Admin Dose 75 MLS/HR; Start 01/17/17 at 17:00; Status Future Hold Nitroglycerin 1 tab 1 tab Q5M PRN SL ANGINA; Start 01/18/17 at 21:30 Bumetanide/ Dextrose (Bumex/D5W) 250 ml @ 10 mls/hr Q24H IV Last administered on 01/20/17 15:33; Admin Dose 10 MLS/HR; Start 01/19/17 at 14:30 Epoetin Sean [id number] units 10,000 units MoWeFr@17 SC Last administered on 18:05; Admin Dose 10,000 UNITS; Start 01/19/17 at 17:00 Piperacillin Sod/ Tazobactam Sod (Zosyn 2.25gm/ 50ml (Pmx)) 50 ml @ 100 mls/hr Q6 IVPB Last administered on 01/21/17 14:54; Admin Dose 100 MLS/HR; Start 06/28 at 09:00 Insulin Glargine (Lantus) 25 unit DAILY@20 SC ; Start 01/21/17 at 20:00 Assessment/Plan Chief Complaint/Hosp Course IMP: 1. Dyspnea--likely multifactorial, however, a component of asthma +/- ABPA present. + high IgE and + IgG for aspergillus and mucoid impaction on prior CT probable significant component secondary to obesity and possible underlying ascites from cirrhosis. 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 YEVGENIY 4. CKD RECS: 1. BD's 2. Stop steroids 3. Fluid restriction 4. Encourage out of bed 5. Discussed with primary care team agree with hemodialysis for volume removal Problems: GUERITA RESENDIZ [facility] Jan 21, 2017 15:08
[2017-01-21] MEDS: EPOETIN 10000 UNITS/1 ML INJ (ESRD) SC SCH (17:23)
--- NOTE | 2017-01-21 17:49 | CONS ---
Date/Time of Note Date/Time of Note DATE: 01/21/17 TIME: 17:48 Assessment/Plan Assessment/Plan Chief Complaint/Hosp Course 61-year-old male admitted for shortness of breath. Patient is a history of hepatitis C cirrhosis of liver, morbid obesity obstructive sleep apnea, diabetes mellitus and hypertension. Recent was brought to the emergency room for abdominal distention and shortness of breath. He was slightly nauseous. No GI bleeding no chest pain no or CMA OR LPN problem no fever no chills. Problems: Additional Assessment/Plan Additional Assessment/Plan 1. Shortness of breath multifactorial 2. Morbid obesity 3. Cirrhosis of liver with portal hypertension 4. Mild ascites 5. Diabetes 6. Hypertension 7. Renal failure 8. Anasarca Plan P.o. fluid restriction 1000 cc a day Low-sodium diet Monitor BUN and creatinine closely Weight loss Supplemental oxygen Dietary consult, reduce calorie intake to 1000-calorie a day Renal consult Spot urine for sodium Discussed with the patient and the family Continue antibiotic Diuretic as per haul driver. May need dialysis Amitiza Patient is still fluid overloaded continue with the diuretic drips Consultation Date/Type/Reason Admit Date/Time Jan 07, 2017 at 10:13 Initial Consult Date 01/09/17 Type of Consultation: Pulmonary Referring Provider: JENY MORA MD 24 HR Interval Summary Free Text/Dictation Feels better for the first time he is sitting in a chair Epigastric pain Constipation Exam/Review of Systems Vital Signs Vitals Vital Signs Date Time Temp Pulse Resp B/P Pulse Ox O2 Delivery O2 Flow Rate FiO2 01/21/17 16:02 83 01/21/17 16:02 20 85 Nasal Cannula 3.0 01/21/17 11:42 97.8 124/68 01/19/17 02:12 28 Intake and Output 01/20/17 01/20/17 01/21/17 15:00 23:00 07:00 Intake Total 1115 ml 200 ml Output Total 900 ml 600 ml Balance 215 ml -400 ml Exam Constitutional: alert, oriented, well developed Psych: nl mood/affect, no complaints Head: atraumatic, normocephalic Eyes: EOMI, PERRL, nl conjunctiva, nl lids, nl sclera ENMT: nl external ears & nose, nl lips & teeth, nl nasal mucosa & septum Neck: non-tender, supple Respiratory: clear to auscultation, normal air movement Cardiovascular: nl pulses, regular rate and rhythm Gastrointestinal: nl liver, spleen, non-tender, soft Musculoskeletal: nl extremities to inspection, nl gait and stance Extremities: normal pulses 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: CMA OR LPN II-XII intact, nl mental status, nl speech, nl strength Skin: nl turgor, No rash or lesions Lymph: nl lymph nodes Results Result Diagram: 01/21/17 1208 01/21/17 0819 Results 24 hrs Laboratory Tests Test 01/20/17 21:06 01/21/17 02:02 01/21/17 07:56 01/21/17 08:19 Bedside Glucose 289 H 314 H 180 White Blood Count 13.0 #H Red Blood Count 3.15 L Hemoglobin 7.9 L Hematocrit 26.6 L Mean Corpuscular Volume 84.4 Mean Corpuscular Hemoglobin 25.1 L Mean Corpuscular Hemoglobin Concent 29.7 L Red Cell Distribution Width 17.0 H Platelet Count 92 L Mean Platelet Volume 12.3 H Neutrophils % 86.7 H Lymphocytes % 3.5 L Monocytes % 8.8 Eosinophils % 0.4 Basophils % 0.1 Nucleated Red Blood Cells % 0.0 Neutrophils # 11.3 H Lymphocytes # 0.5 L Monocytes # 1.2 H Eosinophils # 0.1 Basophils # 0.0 Nucleated Red Blood Cells # 0.0 Prothrombin Time 16.0 H Prothrombin Time Ratio 1.3 INR International Normalized Ratio 1.27 Activated Partial Thromboplast Time 32.7 Sodium Level 131 L Potassium Level 4.5 Chloride Level 102 Carbon Dioxide Level 28 Anion Gap 6 L Blood Urea Nitrogen 106 H Creatinine 3.47 H Glucose Level 182 Calcium Level 8.1 L Phosphorus Level 6.8 H Magnesium Level 3.0 H Total Bilirubin 0.4 Direct Bilirubin 0.00 Indirect Bilirubin 0.4 Aspartate Amino Transf (AST/SGOT) 32 Alanine Aminotransferase (ALT/SGPT) 49 Alkaline Phosphatase 94 Troponin I 0.485 *H Total Protein 6.6 Albumin 3.0 L Globulin 3.60 H Albumin/Globulin Ratio 0.83 Test 01/21/17 11:33 01/21/17 12:08 01/21/17 17:11 Bedside Glucose 198 289 H White Blood Count 11.3 H Red Blood Count 3.13 L Hemoglobin 8.0 L Hematocrit 26.3 L Mean Corpuscular Volume 84.0 Mean Corpuscular Hemoglobin 25.6 L Mean Corpuscular Hemoglobin Concent 30.4 L Red Cell Distribution Width 16.8 H Platelet Count 86 L Mean Platelet Volume 11.9 H Neutrophils % 93.5 H Lymphocytes % 2.3 L Monocytes % 3.4 Eosinophils % 0.4 Basophils % 0.0 Nucleated Red Blood Cells % 0.0 Neutrophils # 10.5 H Lymphocytes # 0.3 L Monocytes # 0.4 Eosinophils # 0.1 Basophils # 0.0 Nucleated Red Blood Cells # 0.0 Medications Medications Current Medications Atorvastatin Calcium (Lipitor) 20 mg HS PO Last administered on 01/12/17 21:03 ; Admin Dose 20 MG; Start 01/07/17 at 21:00 Miscellaneous Information 1 ea NOTE XX ; Start 01/07/17 at 17:30 Glucose (Glutose) 15 gm Q15M PRN PO DECREASED GLUCOSE; Start 01/07/17 at 17:30 Glucose (Glutose) 22.5 gm Q15M PRN PO DECREASED GLUCOSE; Start 01/07/17 at 17: 30 Dextrose (D50w Syringe) 25 ml Q15M PRN IV DECREASED GLUCOSE; Start 01/07/17 at 17:30 Dextrose (D50w Syringe) 50 ml Q15M PRN IV DECREASED GLUCOSE; Start 01/07/17 at 17:30 Glucagon (Glucagen) 1 mg Q15M PRN IM DECREASED GLUCOSE; Start 01/07/17 at 17:30 Glucose (Glutose) 15 gm Q15M PRN BUCCAL DECREASED GLUCOSE; Start 01/07/17 at 17 :30 Nifedipine (Procardia Xl) 30 mg DAILY PO Last administered on 01/21/17 08:49; Admin Dose 30 MG; Start 01/08/17 at 09:00 Lactulose (Enulose) 20 gm HS PO Last administered on 01/20/17 21:07; Admin Dose 20 GM; Start 01/07/17 at 21:00 Docusate Sodium (Colace) 100 mg BID PRN PO CONSTIPATION Last administered on 09:10; Admin Dose 100 MG; Start 01/08/17 at 14:00 Acetaminophen (Tylenol Tab) 500 mg Q6H PRN PO PAIN AND OR ELEVATED TEMP Last administered on 01/20/17 09:27; Admin Dose 500 MG; Start 01/08/17 at 15:30 Acetaminophen/ Hydrocodone Bitart ([place] (5/325)) 1 tab Q4H PRN PO PAIN Last administered on 01/21/17 09:53; Admin Dose 1 TAB; Start 01/09/17 at 08:30 Diagnostic Test (Pha) (Accu-Chek) 1 ea 02 XX Last administered on 01/21/17 02: 05; Admin Dose 1 EA; Start 01/15/17 at 02:00 Insulin Aspart 10 unit 10 unit ONCE PRN SC ELEVATED GLUCOSE Last administered on 01/21/17 02:15; Admin Dose 10 UNIT; Start 01/17/17 at 02:00 Sodium Chloride (1/2 NS) 1,000 ml @ 40 mls/hr Q24H IV Last administered on 01/18 21:32; Admin Dose 75 MLS/HR; Start 01/17/17 at 17:00; Status Future Hold Nitroglycerin 1 tab 1 tab Q5M PRN SL ANGINA; Start 01/18/17 at 21:30 Bumetanide/ Dextrose (Bumex/D5W) 250 ml @ 10 mls/hr Q24H IV Last administered on 01/20/17 15:33; Admin Dose 10 MLS/HR; Start 01/19/17 at 14:30 Epoetin Sean 14314 units 10,000 units MoWeFr@17 SC Last administered on 17:23; Admin Dose 10,000 UNITS; Start 01/19/17 at 17:00 Piperacillin Sod/ Tazobactam Sod (Zosyn 2.25gm/ 50ml (Pmx)) 50 ml @ 100 mls/hr Q6 IVPB Last administered on 01/21/17 17:20; Admin Dose 100 MLS/HR; Start 06/28 at 09:00 Insulin Glargine (Lantus) 25 unit DAILY@20 SC ; Start 01/21/17 at 20:00 STUART STANLEY MD Jan 21, 2017 17:49
[2017-01-21] MEDS: INSULIN GLARGINE [LANtus] 3 ML PEN SC SCH (20:12)
[2017-01-21] MEDS: LUBIPROSTONE 24 MCG CAP PO SCH (20:35)
[2017-01-21] MEDS: LACTULOSE 30ML CUP PO SCH (20:35)
[2017-01-21] MEDS: ATORVASTATIN 20 MG TAB PO SCH (20:35)
[2017-01-22] VITALS (10 sets, daily range): BP systolic 111–148; BP diastolic 57–73; PULSE 80–86; RESP 18–21
[2017-01-22] MEDS: ACCU-CHEK XX SCH (02:00)
[2017-01-22] MEDS ORDERED: INSULIN ASPART [NOVOLOG] 3 ML PEN SC ONE (02:30)
[2017-01-22] MEDS: PIPER-TAZO 2.25 GM (PMX) 50 ML IVPB SCH ×4 (05:57→23:57)
[2017-01-22] MEDS: INSULIN ASPART [NOVOLOG] 3 ML PEN SC SCH ×4 (07:44→20:34)
[2017-01-22 08:07] LABS: ADD SCAN DIFF NO
[2017-01-22] MEDS: NIFEdipine (XL) 30 MG TAB PO SCH (08:07)
[2017-01-22] MEDS: LUBIPROSTONE 24 MCG CAP PO SCH ×2 (08:07→20:32)
[2017-01-22 08:16] LABS: ABNORMAL IP MESSAGE 1; BASOPHILS % 0.1 % (0.0-2.0); EOSINOPHILS % 0.1 % (0.0-7.0); HEMATOCRIT 26.3 % (42.0-52.0); LYMPHOCYTES # 0.5 10^3/ul (0.8-2.9); LYMPHOCYTES % 3.4 % (15.0-51.0); MEAN CORPUSCULAR HEMOGLOBIN 25.5 pg (29.0-33.0); MEAN CORPUSCULAR HGB CONC 30.4 g/dl (32.0-37.0); MEAN CORPUSCULAR VOLUME 83.8 fl (82.0-101.0); MONOCYTE # 0.9 10^3/ul (0.3-0.9); MONOCYTES % 7.1 % (0.0-11.0); NEUTROPHIL # 11.6 10^3/ul (1.6-7.5); NEUTROPHILS % 88.7 % (39.0-77.0); RED BLOOD COUNT 3.14 10^6/ul (4.70-6.10); RED CELL DISTRIBUTION WIDTH 16.7 % (11.5-14.5); WHITE BLOOD COUNT 13.1 10^3/ul (4.8-10.8)
[2017-01-22 08:25] LABS: PLATELET COUNT 87 10^3/UL (140-415)
[2017-01-22 08:49] LABS: ALBUMIN 3.2 g/dl (3.3-4.9); ALBUMIN/GLOBULIN RATIO 0.91; BILIRUBIN,INDIRECT 0.4 mg/dl (0-1.1); BILIRUBIN,TOTAL 0.4 mg/dl (0.2-1.3); CALCIUM 8.2 mg/dl (8.4-10.2); CREATININE 3.7 mg/dl (0.61-1.24); POTASSIUM 4.3 mmol/L (3.5-5.1); TOTAL PROTEIN 6.7 g/dl (6.1-8.1)
[2017-01-22] MEDS: ALBUTEROL/IPRATROPIUM (NEB) 3 ML AMP HHN SCH ×4 (09:00→21:00)
--- NOTE | 2017-01-22 09:32 | CONS ---
Date/Time of Note Date/Time of Note DATE: 01/22/17 TIME: 09:23 Assessment/Plan Assessment/Plan Chief Complaint/Hosp Course Impression: 1. Chronic kidney disease. The patient is on a Bumex drip and he is in negative fluid balance ; however , his BUN and creatinine continue to rise. I recommended that he start hemodialysis if a catheter can be placed. I would prefer to place a internal jugular permacath and start dialysis. He is growing staph aureus from a blood culture done on 01/20/17. The infectious disease specialist was reluctant to give the go ahead on catheter placement yesterday. I will discuss this with infectious disease and with vascular surgery. 2. 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 Hypertension 4. Hyperlipidemia 5. Anemia 6. Congestive heart failure 7. Obstructive sleep apnea Plan: 1. Continue Bumex drip 2. Epogen for anemia 3. Start dialysis when vascular catheter, permacath can be placed. 4. I will follow patient along with you Problems: Consultation Date/Type/Reason Admit Date/Time Jan 07, 2017 at 10:13 Initial Consult Date 01/19/17 Type of Consultation: renal Referring Provider: JENY MORA MD 24 HR Interval Summary Free Text/Dictation Patient says that he did not sleep well because of his shortness of breath. He is n.p.o. now for possible permacath insertion for hemodialysis. His blood culture from 711 is now positive for staph aureus . Exam/Review of Systems Vital Signs Vitals Vital Signs Date Time Temp Pulse Resp B/P Pulse Ox O2 Delivery O2 Flow Rate FiO2 01/22/17 09:00 79 22 97 Nasal Cannula 3.0 01/22/17 06:58 98.4 113/57 01/19/17 02:12 28 Intake and Output 01/21/17 01/21/17 01/22/17 15:00 23:00 07:00 Intake Total 900 ml 350 ml Output Total 1000 ml 1100 ml Balance -100 ml -750 ml Exam Constitutional: alert, frail, obese, oriented Respiratory: clear to auscultation, diminished breath sounds Cardiovascular: edema, regular rate and rhythm Gastrointestinal: ascites, distended Extremities: edema Results Result Diagram: 01/22/17 0703 01/22/17 0703 Results 24 hrs Laboratory Tests Test 01/21/17 11:33 01/21/17 12:08 01/21/17 17:11 01/21/17 20:06 Bedside Glucose 198 289 H 349 H White Blood Count 11.3 H Red Blood Count 3.13 L Hemoglobin 8.0 L Hematocrit 26.3 L Mean Corpuscular Volume 84.0 Mean Corpuscular Hemoglobin 25.6 L Mean Corpuscular Hemoglobin Concent 30.4 L Red Cell Distribution Width 16.8 H Platelet Count 86 L Mean Platelet Volume 11.9 H Neutrophils % 93.5 H Lymphocytes % 2.3 L Monocytes % 3.4 Eosinophils % 0.4 Basophils % 0.0 Nucleated Red Blood Cells % 0.0 Neutrophils # 10.5 H Lymphocytes # 0.3 L Monocytes # 0.4 Eosinophils # 0.1 Basophils # 0.0 Nucleated Red Blood Cells # 0.0 Test 01/22/17 02:19 01/22/17 07:03 01/22/17 07:30 Bedside Glucose 305 H 254 H White Blood Count 13.1 H Red Blood Count 3.14 L Hemoglobin 8.0 L Hematocrit 26.3 L Mean Corpuscular Volume 83.8 Mean Corpuscular Hemoglobin 25.5 L Mean Corpuscular Hemoglobin Concent 30.4 L Red Cell Distribution Width 16.7 H Platelet Count 87 L Mean Platelet Volume Neutrophils % 88.7 H Lymphocytes % 3.4 L Monocytes % 7.1 Eosinophils % 0.1 Basophils % 0.1 Nucleated Red Blood Cells % 0.0 Neutrophils # 11.6 H Lymphocytes # 0.5 L Monocytes # 0.9 Eosinophils # 0.0 Basophils # 0.0 Nucleated Red Blood Cells # 0.0 Sodium Level 135 Potassium Level 4.3 Chloride Level 100 Carbon Dioxide Level 27 Anion Gap 12 Blood Urea Nitrogen 113 H Creatinine 3.70 H Glucose Level 270 H Calcium Level 8.2 L Total Bilirubin 0.4 Direct Bilirubin 0.00 Indirect Bilirubin 0.4 Aspartate Amino Transf (AST/SGOT) 33 Alanine Aminotransferase (ALT/SGPT) 52 Alkaline Phosphatase 127 H Total Protein 6.7 Albumin 3.2 L Globulin 3.50 H Albumin/Globulin Ratio 0.91 Medications Medications Current Medications Atorvastatin Calcium (Lipitor) 20 mg HS PO Last administered on 01/21/17t 20:35 ; Admin Dose 20 MG; Start 01/07/17 at 21:00 Miscellaneous Information 1 ea NOTE XX ; Start 01/07/17 at 17:30 Glucose (Glutose) 15 gm Q15M PRN PO DECREASED GLUCOSE; Start 01/07/17 at 17:30 Glucose (Glutose) 22.5 gm Q15M PRN PO DECREASED GLUCOSE; Start 01/07/17 at 17: 30 Dextrose (D50w Syringe) 25 ml Q15M PRN IV DECREASED GLUCOSE; Start 01/07/17 at 17:30 Dextrose (D50w Syringe) 50 ml Q15M PRN IV DECREASED GLUCOSE; Start 01/07/17 at 17:30 Glucagon (Glucagen) 1 mg Q15M PRN IM DECREASED GLUCOSE; Start 01/07/17 at 17:30 Glucose (Glutose) 15 gm Q15M PRN BUCCAL DECREASED GLUCOSE; Start 01/07/17 at 17 :30 Nifedipine (Procardia Xl) 30 mg DAILY PO Last administered on 01/21/17 08:49; Admin Dose 30 MG; Start 01/08/17 at 09:00 Lactulose (Enulose) 20 gm HS PO Last administered on 01/21/17 20:35; Admin Dose 20 GM; Start 01/07/17 at 21:00 Docusate Sodium (Colace) 100 mg BID PRN PO CONSTIPATION Last administered on 09:10; Admin Dose 100 MG; Start 01/08/17 at 14:00 Acetaminophen (Tylenol Tab) 500 mg Q6H PRN PO PAIN AND OR ELEVATED TEMP Last administered on 01/20/17 09:27; Admin Dose 500 MG; Start 01/08/17 at 15:30 Acetaminophen/ Hydrocodone Bitart ([place] (5/325)) 1 tab Q4H PRN PO PAIN Last administered on 01/21/17 23:29; Admin Dose 1 TAB; Start 01/09/17 at 08:30 Diagnostic Test (Pha) (Accu-Chek) 1 ea 02 XX Last administered on 01/21/17 02: 05; Admin Dose 1 EA; Start 01/15/17 at 02:00 Insulin Aspart 10 unit 10 unit ONCE PRN SC ELEVATED GLUCOSE Last administered on 01/21/17 02:15; Admin Dose 10 UNIT; Start 01/17/17 at 02:00 Sodium Chloride (1/2 NS) 1,000 ml @ 40 mls/hr Q24H IV Last administered on 01/18 21:32; Admin Dose 75 MLS/HR; Start 01/17/17 at 17:00; Status Future Hold Nitroglycerin 1 tab 1 tab Q5M PRN SL ANGINA; Start 01/18/17 at 21:30 Bumetanide/ Dextrose (Bumex/D5W) 250 ml @ 10 mls/hr Q24H IV Last administered on 01/20/17 15:33; Admin Dose 10 MLS/HR; Start 01/19/17 at 14:30 Epoetin Sean 53839 units 10,000 units MoWeFr@17 SC Last administered on 17:23; Admin Dose 10,000 UNITS; Start 01/19/17 at 17:00 Piperacillin Sod/ Tazobactam Sod (Zosyn 2.25gm/ 50ml (Pmx)) 50 ml @ 100 mls/hr Q6 IVPB Last administered on 01/22/17 05:57; Admin Dose 100 MLS/HR; Start 06/28 at 09:00 Insulin Glargine (Lantus) 25 unit DAILY@20 SC Last administered on 01/21/17 20 :12; Admin Dose 25 UNIT; Start 01/21/17 at 20:00 Lubiprostone (Amitiza) 24 mcg BID PO Last administered on 01/21/17 20:35; Admin Dose 24 MCG; Start 01/21/17 at 21:00 ANA MELENDEZ MD Jan 22, 2017 09:32
--- NOTE | 2017-01-22 09:54 | CONS ---
Date/Time of Note Date/Time of Note DATE: 01/22/17 TIME: 09:44 Assessment/Plan Assessment/Plan Chief Complaint/Hosp Course 1)Liver cirrhosis with portal HTN due to Hep C to repeat ammonia level 01/21 - ammonia level is mildly elevated at 57 consider lacutlose 2) CHF +/- pneumonia unable to tolerate lasix with worsening renal function 01/21 - in light of MSSA in blood and no open wounds or chronic IV in place, concern would be lung may be the portal of entry to start zosyn to cover for lung infection as well as the MSSA CXR does not show a lobar infiltrate 01/22 - continue with zosyn 3) r/o SBP pt to get paracentesis later today cefotaxime was started by the primary if fevers not improving will broaden the coverage 01/20 - pt to get paracentesis today continue with cefotaxime 01/21 - low number of PMN's in ascitic fluid, this in not the source for his MSSA d/c cefotaxime 4) new onset fever with leukocytosis pt has been on steroids but this does not explain the new fever the potential sources would include, ascitic fluid, lung urinalysis does not suggest an infection will order beta d glucan, aspergillus galactomannan, procalcitonin in a.m. will order LE dopplers to make sure no DVT has developed if cefotaxime does not improve his fever, wbc then will broaden coverage to include lung infection 01/20 - await paracentesis and a.m. labs vanco added due to GPC in blood cx fevers appear improved 01/21 - MSSA is present in blood and urine cx u/a did not show signs of infection and so the urine may only be seeded from the bacteremia will order repeat u/a at this time d/c vanco/cefotaxime and start zosyn since there is no skin breakdown or ulcers the lung becomes a more likely portal of entry 01/22 - fevers resolved continue with zosyn for bacteremia and possible pneumonia 5) MSSA bacteremia 01/20 - no central line in place, IV sites look ok await ID to see if true infection or a contaminant vanco started, will order repeat blood cx now 01/21 - true infection of blood with MSSA repeat blood cx from 01/20 is NGTD d/c vanco/cefotaxime and start zosyn check u/a 01/22 - MSSA in one set from 01/20 repeat blood cx today pt needs dialysis and likely he is no longer bacteremic so ok for dialysis line but if pt remains bacteremic it will need to be replaced Problems: Consultation Date/Type/Reason Admit Date/Time Jan 07, 2017 at 10:13 Initial Consult Date 01/19/17 Type of Consultation: ID Referring Provider: JENY MORA MD 24 HR Interval Summary Free Text/Dictation pt alert and cooperative no stools breathing is stable but was restless overnight no abd pain Exam/Review of Systems Vital Signs Vitals Vital Signs Date Time Temp Pulse Resp B/P Pulse Ox O2 Delivery O2 Flow Rate FiO2 01/22/17 09:00 79 22 97 Nasal Cannula 3.0 01/22/17 06:58 98.4 113/57 01/19/17 02:12 28 Intake and Output 01/21/17 01/21/17 01/22/17 14:59 22:59 06:59 Intake Total 900 ml 350 ml Output Total 1000 ml 1100 ml Balance -100 ml -750 ml Exam Constitutional: alert Head: normocephalic ENMT: mucosa pink and moist Respiratory: clear to auscultation Cardiovascular: regular rate and rhythm Gastrointestinal: distended, soft Results Result Diagram: 01/22/17 0703 01/22/17 0703 Results 24 hrs Laboratory Tests Test 01/21/17 11:33 01/21/17 12:08 01/21/17 17:11 01/21/17 20:06 Bedside Glucose 198 289 H 349 H White Blood Count 11.3 H Red Blood Count 3.13 L Hemoglobin 8.0 L Hematocrit 26.3 L Mean Corpuscular Volume 84.0 Mean Corpuscular Hemoglobin 25.6 L Mean Corpuscular Hemoglobin Concent 30.4 L Red Cell Distribution Width 16.8 H Platelet Count 86 L Mean Platelet Volume 11.9 H Neutrophils % 93.5 H Lymphocytes % 2.3 L Monocytes % 3.4 Eosinophils % 0.4 Basophils % 0.0 Nucleated Red Blood Cells % 0.0 Neutrophils # 10.5 H Lymphocytes # 0.3 L Monocytes # 0.4 Eosinophils # 0.1 Basophils # 0.0 Nucleated Red Blood Cells # 0.0 Test 01/22/17 02:19 01/22/17 07:03 01/22/17 07:30 Bedside Glucose 305 H 254 H White Blood Count 13.1 H Red Blood Count 3.14 L Hemoglobin 8.0 L Hematocrit 26.3 L Mean Corpuscular Volume 83.8 Mean Corpuscular Hemoglobin 25.5 L Mean Corpuscular Hemoglobin Concent 30.4 L Red Cell Distribution Width 16.7 H Platelet Count 87 L Mean Platelet Volume Neutrophils % 88.7 H Lymphocytes % 3.4 L Monocytes % 7.1 Eosinophils % 0.1 Basophils % 0.1 Nucleated Red Blood Cells % 0.0 Neutrophils # 11.6 H Lymphocytes # 0.5 L Monocytes # 0.9 Eosinophils # 0.0 Basophils # 0.0 Nucleated Red Blood Cells # 0.0 Sodium Level 135 Potassium Level 4.3 Chloride Level 100 Carbon Dioxide Level 27 Anion Gap 12 Blood Urea Nitrogen 113 H Creatinine 3.70 H Glucose Level 270 H Calcium Level 8.2 L Total Bilirubin 0.4 Direct Bilirubin 0.00 Indirect Bilirubin 0.4 Aspartate Amino Transf (AST/SGOT) 33 Alanine Aminotransferase (ALT/SGPT) 52 Alkaline Phosphatase 127 H Total Protein 6.7 Albumin 3.2 L Globulin 3.50 H Albumin/Globulin Ratio 0.91 Medications Medications Current Medications Atorvastatin Calcium (Lipitor) 20 mg HS PO Last administered on 01/21/17 20:35 ; Admin Dose 20 MG; Start 01/07/17 at 21:00 Miscellaneous Information 1 ea NOTE XX ; Start 01/07/17 at 17:30 Glucose (Glutose) 15 gm Q15M PRN PO DECREASED GLUCOSE; Start 01/07/17 at 17:30 Glucose (Glutose) 22.5 gm Q15M PRN PO DECREASED GLUCOSE; Start 01/07/17 at 17: 30 Dextrose (D50w Syringe) 25 ml Q15M PRN IV DECREASED GLUCOSE; Start 01/07/17 at 17:30 Dextrose (D50w Syringe) 50 ml Q15M PRN IV DECREASED GLUCOSE; Start 01/07/17 at 17:30 Glucagon (Glucagen) 1 mg Q15M PRN IM DECREASED GLUCOSE; Start 01/07/17 at 17:30 Glucose (Glutose) 15 gm Q15M PRN BUCCAL DECREASED GLUCOSE; Start 01/07/17 at 17 :30 Nifedipine (Procardia Xl) 30 mg DAILY PO Last administered on 01/21/17 08:49; Admin Dose 30 MG; Start 01/08/17 at 09:00 Lactulose (Enulose) 20 gm HS PO Last administered on 01/21/17 20:35; Admin Dose 20 GM; Start 01/07/17 at 21:00 Docusate Sodium (Colace) 100 mg BID PRN PO CONSTIPATION Last administered on 09:10; Admin Dose 100 MG; Start 01/08/17 at 14:00 Acetaminophen (Tylenol Tab) 500 mg Q6H PRN PO PAIN AND OR ELEVATED TEMP Last administered on 01/20/17 09:27; Admin Dose 500 MG; Start 01/08/17 at 15:30 Acetaminophen/ Hydrocodone Bitart ([place] (5/325)) 1 tab Q4H PRN PO PAIN Last administered on 01/21/17 23:29; Admin Dose 1 TAB; Start 01/09/17 at 08:30 Diagnostic Test (Pha) (Accu-Chek) 1 ea 02 XX Last administered on 01/21/17 02: 05; Admin Dose 1 EA; Start 01/15/17 at 02:00 Insulin Aspart 10 unit 10 unit ONCE PRN SC ELEVATED GLUCOSE Last administered on 01/21/17 02:15; Admin Dose 10 UNIT; Start 01/17/17 at 02:00 Sodium Chloride (1/2 NS) 1,000 ml @ 40 mls/hr Q24H IV Last administered on 01/18 21:32; Admin Dose 75 MLS/HR; Start 01/17/17 at 17:00; Status Future Hold Nitroglycerin 1 tab 1 tab Q5M PRN SL ANGINA; Start 01/18/17 at 21:30 Bumetanide/ Dextrose (Bumex/D5W) 250 ml @ 10 mls/hr Q24H IV Last administered on 01/20/17 15:33; Admin Dose 10 MLS/HR; Start 01/19/17 at 14:30 Epoetin Sean 87290 units 10,000 units MoWeFr@17 SC Last administered on 17:23; Admin Dose 10,000 UNITS; Start 01/19/17 at 17:00 Piperacillin Sod/ Tazobactam Sod (Zosyn 2.25gm/ 50ml (Pmx)) 50 ml @ 100 mls/hr Q6 IVPB Last administered on 01/22/17 05:57; Admin Dose 100 MLS/HR; Start 06/28 at 09:00 Insulin Glargine (Lantus) 25 unit DAILY@20 SC Last administered on 01/21/17 20 :12; Admin Dose 25 UNIT; Start 01/21/17 at 20:00 Lubiprostone (Amitiza) 24 mcg BID PO Last administered on 01/21/17 20:35; Admin Dose 24 MCG; Start 01/21/17 at 21:00 DANYEL HART MD Jan 22, 2017 09:53
--- NOTE | 2017-01-22 11:47 | CONS ---
Date/Time of Note Date/Time of Note DATE: 01/22/17 TIME: 11:45 Consult Date/Type/Reason Admit Date/Time Jan 07, 2017 at 10:13 Initial Consult Date 01/09/17 Type of Consultation: Pulmonary ICU Ordering Provider: JENY MORA MD Subjective Patient comfortable at present Objective Vital Signs Date Time Temp Pulse Resp B/P Pulse Ox O2 Delivery O2 Flow Rate FiO2 01/22/17 10:22 6.0 01/22/17 09:00 79 22 97 Nasal Cannula 01/22/17 06:58 98.4 113/57 01/19/17 02:12 28 Intake and Output 01/21/17 01/21/17 01/22/17 15:00 23:00 07:00 Intake Total 900 ml 350 ml Output Total 1000 ml 1100 ml Balance -100 ml -750 ml Exam GENERAL: Obese gentleman comfortable at rest no acute distress VITAL SIGNS: per chart NECK: Supple. No JVD or lymphadenopathy. CARDIAC EXAM: S1, S2. No added sounds or murmurs. CHEST: clear bilaterally, No added sounds, rales or wheezes ABDOMEN: Soft, nontender. No guarding or rebound. EXTREMITIES: No cyanosis, clubbing or edema. NEUROLOGIC: Generalized weakness. No focal deficits. Results/Medications Result Diagram: 01/22/17 0701/22/17 0703 Results 24 hrs Laboratory Tests Test 01/21/17 12:08 01/21/17 17:11 01/21/17 20:06 01/22/17 02:19 White Blood Count 11.3 H Red Blood Count 3.13 L Hemoglobin 8.0 L Hematocrit 26.3 L Mean Corpuscular Volume 84.0 Mean Corpuscular Hemoglobin 25.6 L Mean Corpuscular Hemoglobin Concent 30.4 L Red Cell Distribution Width 16.8 H Platelet Count 86 L Mean Platelet Volume 11.9 H Neutrophils % 93.5 H Lymphocytes % 2.3 L Monocytes % 3.4 Eosinophils % 0.4 Basophils % 0.0 Nucleated Red Blood Cells % 0.0 Neutrophils # 10.5 H Lymphocytes # 0.3 L Monocytes # 0.4 Eosinophils # 0.1 Basophils # 0.0 Nucleated Red Blood Cells # 0.0 Bedside Glucose 289 H 349 H 305 H Test 01/22/17 07:03 01/22/17 07:30 01/22/17 10:47 7/13/17 10:50 White Blood Count 13.1 H Red Blood Count 3.14 L Hemoglobin 8.0 L Hematocrit 26.3 L Mean Corpuscular Volume 83.8 Mean Corpuscular Hemoglobin 25.5 L Mean Corpuscular Hemoglobin Concent 30.4 L Red Cell Distribution Width 16.7 H Platelet Count 87 L Mean Platelet Volume Neutrophils % 88.7 H Lymphocytes % 3.4 L Monocytes % 7.1 Eosinophils % 0.1 Basophils % 0.1 Nucleated Red Blood Cells % 0.0 Neutrophils # 11.6 H Lymphocytes # 0.5 L Monocytes # 0.9 Eosinophils # 0.0 Basophils # 0.0 Nucleated Red Blood Cells # 0.0 Sodium Level 135 Potassium Level 4.3 Chloride Level 100 Carbon Dioxide Level 27 Anion Gap 12 Blood Urea Nitrogen 113 H Creatinine 3.70 H Glucose Level 270 H Calcium Level 8.2 L Total Bilirubin 0.4 Direct Bilirubin 0.00 Indirect Bilirubin 0.4 Aspartate Amino Transf (AST/SGOT) 33 Alanine Aminotransferase (ALT/SGPT) 52 Alkaline Phosphatase 127 H Total Protein 6.7 Albumin 3.2 L Globulin 3.50 H Albumin/Globulin Ratio 0.91 Bedside Glucose 254 H Lab Scanned Report REFERENCE LAB REFERENCE LAB Medications Current Medications Atorvastatin Calcium (Lipitor) 20 mg HS PO Last administered on 01/21/17 20:35 ; Admin Dose 20 MG; Start 01/07/17 at 21:00 Miscellaneous Information 1 ea NOTE XX ; Start 01/07/17 at 17:30 Glucose (Glutose) 15 gm Q15M PRN PO DECREASED GLUCOSE; Start 01/07/17 at 17:30 Glucose (Glutose) 22.5 gm Q15M PRN PO DECREASED GLUCOSE; Start 01/07/17 at 17: 30 Dextrose (D50w Syringe) 25 ml Q15M PRN IV DECREASED GLUCOSE; Start 01/07/17 at 17:30 Dextrose (D50w Syringe) 50 ml Q15M PRN IV DECREASED GLUCOSE; Start 01/07/17 at 17:30 Glucagon (Glucagen) 1 mg Q15M PRN IM DECREASED GLUCOSE; Start 01/07/17 at 17:30 Glucose (Glutose) 15 gm Q15M PRN BUCCAL DECREASED GLUCOSE; Start 01/07/17 at 17 :30 Nifedipine (Procardia Xl) 30 mg DAILY PO Last administered on 01/21/17 08:49; Admin Dose 30 MG; Start 01/08/17 at 09:00 Lactulose (Enulose) 20 gm HS PO Last administered on 01/21/17 20:35; Admin Dose 20 GM; Start 01/07/17 at 21:00 Docusate Sodium (Colace) 100 mg BID PRN PO CONSTIPATION Last administered on 09:10; Admin Dose 100 MG; Start 01/08/17 at 14:00 Acetaminophen (Tylenol Tab) 500 mg Q6H PRN PO PAIN AND OR ELEVATED TEMP Last administered on 01/20/17 09:27; Admin Dose 500 MG; Start 01/08/17 at 15:30 Acetaminophen/ Hydrocodone Bitart ([place] (5/325)) 1 tab Q4H PRN PO PAIN Last administered on 01/21/17 23:29; Admin Dose 1 TAB; Start 01/09/17 at 08:30 Diagnostic Test (Pha) (Accu-Chek) 1 ea 02 XX Last administered on 01/21/17 02: 05; Admin Dose 1 EA; Start 01/15/17 at 02:00 Insulin Aspart 10 unit 10 unit ONCE PRN SC ELEVATED GLUCOSE Last administered on 01/21/17 02:15; Admin Dose 10 UNIT; Start 01/17/17 at 02:00 Sodium Chloride (1/2 NS) 1,000 ml @ 40 mls/hr Q24H IV Last administered on 01/18 21:32; Admin Dose 75 MLS/HR; Start 01/17/17 at 17:00; Status Future Hold Nitroglycerin 1 tab 1 tab Q5M PRN SL ANGINA; Start 01/18/17 at 21:30 Bumetanide/ Dextrose (Bumex/D5W) 250 ml @ 10 mls/hr Q24H IV Last administered on 01/20/17 15:33; Admin Dose 10 MLS/HR; Start 01/19/17 at 14:30 Epoetin Sean 02009 units 10,000 units MoWeFr@17 SC Last administered on 17:23; Admin Dose 10,000 UNITS; Start 01/19/17 at 17:00 Piperacillin Sod/ Tazobactam Sod (Zosyn 2.25gm/ 50ml (Pmx)) 50 ml @ 100 mls/hr Q6 IVPB Last administered on 01/22/17 05:57; Admin Dose 100 MLS/HR; Start 06/28 at 09:00 Insulin Glargine (Lantus) 25 unit DAILY@20 SC Last administered on 01/21/17 20 :12; Admin Dose 25 UNIT; Start 01/21/17 at 20:00 Lubiprostone (Amitiza) 24 mcg BID PO Last administered on 01/21/17 20:35; Admin Dose 24 MCG; Start 01/21/17 at 21:00 Assessment/Plan Chief Complaint/Hosp Course IMP: 1. Dyspnea--likely multifactorial, however, a component of asthma +/- ABPA present. + high IgE and + IgG for aspergillus and mucoid impaction on prior CT probable significant component secondary to obesity and possible underlying ascites from cirrhosis. 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 YEVGENIY 4. CKD RECS: 1. BD's 2. Stop steroids 3. Fluid restriction 4. Encourage out of bed 5. Pending hemodialysis catheter and hemodialysis. Continue Bumex drip. Problems: GUERITA RESENDIZ MD, [facility] Jan 22, 2017 11:46
--- NOTE | 2017-01-22 12:06 | CONS ---
Date/Time of Note Date/Time of Note DATE: 01/22/17 TIME: 12:04 Assessment/Plan Assessment/Plan Chief Complaint/Hosp Course 61-year-old male admitted for shortness of breath. Patient is a history of hepatitis C cirrhosis of liver, morbid obesity obstructive sleep apnea, diabetes mellitus and hypertension. Recent was brought to the emergency room for abdominal distention and shortness of breath. He was slightly nauseous. No GI bleeding no chest pain no or CORPORATE SAFETY COORDINATOR problem no fever no chills. Problems: Additional Assessment/Plan Additional Assessment/Plan 1. Shortness of breath multifactorial 2. Morbid obesity 3. Cirrhosis of liver with portal hypertension 4. Mild ascites 5. Diabetes 6. Hypertension 7. Renal failure 8. Anasarca 9. Bacteremia staph positive in the blood culture 10. No evidence of spontaneous bacterial peritonitis Plan P.o. fluid restriction 1000 cc a day Low-sodium diet Monitor BUN and creatinine closely Weight loss Supplemental oxygen Dietary consult, reduce calorie intake to 1000-calorie a day Renal consult Spot urine for sodium Discussed with the patient and the family Continue antibiotic Diuretic as per lumber inspector. May need dialysis Amitiza Patient is still fluid overloaded continue with the diuretic drips, discussed the case with lumber inspector Consultation Date/Type/Reason Admit Date/Time Jan 07, 2017 at 10:13 Initial Consult Date 01/09/17 Type of Consultation: Pulmonary ICU Referring Provider: JENY MORA MD 24 HR Interval Summary Free Text/Dictation Complains of leakage from the paracentesis site Exam/Review of Systems Vital Signs Vitals Vital Signs Date Time Temp Pulse Resp B/P Pulse Ox O2 Delivery O2 Flow Rate FiO2 01/22/17 10:22 6.0 01/22/17 09:00 79 22 97 Nasal Cannula 01/22/17 06:58 98.4 113/57 01/19/17 02:12 28 Intake and Output 01/21/17 01/21/17 01/22/17 15:00 23:00 07:00 Intake Total 900 ml 350 ml Output Total 1000 ml 1100 ml Balance -100 ml -750 ml Exam Constitutional: alert, oriented, well developed Psych: nl mood/affect, no complaints Head: atraumatic, normocephalic Eyes: EOMI, PERRL, nl conjunctiva, nl lids, nl sclera ENMT: nl external ears & nose, nl lips & teeth, nl nasal mucosa & septum Neck: non-tender, supple Respiratory: clear to auscultation, normal air movement Cardiovascular: nl pulses, regular rate and rhythm Gastrointestinal: nl liver, spleen, non-tender, soft Musculoskeletal: nl extremities to inspection, nl gait and stance Extremities: normal pulses 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: CORPORATE SAFETY COORDINATOR II-XII intact, nl mental status, nl speech, nl strength Skin: nl turgor, No rash or lesions Lymph: nl lymph nodes Results Result Diagram: 01/22/17 0703 01/22/17 0703 Results 24 hrs Laboratory Tests Test 01/21/17 12:08 01/21/17 17:11 01/21/17 20:06 01/22/17 02:19 White Blood Count 11.3 H Red Blood Count 3.13 L Hemoglobin 8.0 L Hematocrit 26.3 L Mean Corpuscular Volume 84.0 Mean Corpuscular Hemoglobin 25.6 L Mean Corpuscular Hemoglobin Concent 30.4 L Red Cell Distribution Width 16.8 H Platelet Count 86 L Mean Platelet Volume 11.9 H Neutrophils % 93.5 H Lymphocytes % 2.3 L Monocytes % 3.4 Eosinophils % 0.4 Basophils % 0.0 Nucleated Red Blood Cells % 0.0 Neutrophils # 10.5 H Lymphocytes # 0.3 L Monocytes # 0.4 Eosinophils # 0.1 Basophils # 0.0 Nucleated Red Blood Cells # 0.0 Bedside Glucose 289 H 349 H 305 H Test 01/22/17 07:03 01/22/17 07:30 01/22/17 10:47 01/22/17 10:50 White Blood Count 13.1 H Red Blood Count 3.14 L Hemoglobin 8.0 L Hematocrit 26.3 L Mean Corpuscular Volume 83.8 Mean Corpuscular Hemoglobin 25.5 L Mean Corpuscular Hemoglobin Concent 30.4 L Red Cell Distribution Width 16.7 H Platelet Count 87 L Mean Platelet Volume Neutrophils % 88.7 H Lymphocytes % 3.4 L Monocytes % 7.1 Eosinophils % 0.1 Basophils % 0.1 Nucleated Red Blood Cells % 0.0 Neutrophils # 11.6 H Lymphocytes # 0.5 L Monocytes # 0.9 Eosinophils # 0.0 Basophils # 0.0 Nucleated Red Blood Cells # 0.0 Sodium Level 135 Potassium Level 4.3 Chloride Level 100 Carbon Dioxide Level 27 Anion Gap 12 Blood Urea Nitrogen 113 H Creatinine 3.70 H Glucose Level 270 H Calcium Level 8.2 L Total Bilirubin 0.4 Direct Bilirubin 0.00 Indirect Bilirubin 0.4 Aspartate Amino Transf (AST/SGOT) 33 Alanine Aminotransferase (ALT/SGPT) 52 Alkaline Phosphatase 127 H Total Protein 6.7 Albumin 3.2 L Globulin 3.50 H Albumin/Globulin Ratio 0.91 Bedside Glucose 254 H Lab Scanned Report REFERENCE LAB REFERENCE LAB Test 01/22/17 11:51 Bedside Glucose 263 H Medications Medications Current Medications Atorvastatin Calcium (Lipitor) 20 mg HS PO Last administered on 01/21/17 20:35 ; Admin Dose 20 MG; Start 01/07/17 at 21:00 Miscellaneous Information 1 ea NOTE XX ; Start 01/07/17 at 17:30 Glucose (Glutose) 15 gm Q15M PRN PO DECREASED GLUCOSE; Start 01/07/17 at 17:30 Glucose (Glutose) 22.5 gm Q15M PRN PO DECREASED GLUCOSE; Start 01/07/17 at 17: 30 Dextrose (D50w Syringe) 25 ml Q15M PRN IV DECREASED GLUCOSE; Start 01/07/17 at 17:30 Dextrose (D50w Syringe) 50 ml Q15M PRN IV DECREASED GLUCOSE; Start 01/07/17 at 17:30 Glucagon (Glucagen) 1 mg Q15M PRN IM DECREASED GLUCOSE; Start 01/07/17 at 17:30 Glucose (Glutose) 15 gm Q15M PRN BUCCAL DECREASED GLUCOSE; Start 01/07/17 at 17 :30 Nifedipine (Procardia Xl) 30 mg DAILY PO Last administered on 01/21/17 08:49; Admin Dose 30 MG; Start 01/08/17 at 09:00 Lactulose (Enulose) 20 gm HS PO Last administered on 01/21/17 20:35; Admin Dose 20 GM; Start 01/07/17 at 21:00 Docusate Sodium (Colace) 100 mg BID PRN PO CONSTIPATION Last administered on 09:10; Admin Dose 100 MG; Start 01/08/17 at 14:00 Acetaminophen (Tylenol Tab) 500 mg Q6H PRN PO PAIN AND OR ELEVATED TEMP Last administered on 01/20/17 09:27; Admin Dose 500 MG; Start 01/08/17 at 15:30 Acetaminophen/ Hydrocodone Bitart ([place] (5/325)) 1 tab Q4H PRN PO PAIN Last administered on 01/21/17 23:29; Admin Dose 1 TAB; Start 01/09/17 at 08:30 Diagnostic Test (Pha) (Accu-Chek) 1 ea 02 XX Last administered on 01/21/17 02: 05; Admin Dose 1 EA; Start 01/15/17 at 02:00 Insulin Aspart 10 unit 10 unit ONCE PRN SC ELEVATED GLUCOSE Last administered on 01/21/17 02:15; Admin Dose 10 UNIT; Start 01/17/17 at 02:00 Sodium Chloride (1/2 NS) 1,000 ml @ 40 mls/hr Q24H IV Last administered on 01/18 21:32; Admin Dose 75 MLS/HR; Start 01/17/17 at 17:00; Status Future Hold Nitroglycerin 1 tab 1 tab Q5M PRN SL ANGINA; Start 01/18/17 at 21:30 Bumetanide/ Dextrose (Bumex/D5W) 250 ml @ 10 mls/hr Q24H IV Last administered on 01/20/17 15:33; Admin Dose 10 MLS/HR; Start 01/19/17 at 14:30 Epoetin Sean [id number] units 10,000 units MoWeFr@17 SC Last administered on 17:23; Admin Dose 10,000 UNITS; Start 01/19/17 at 17:00 Piperacillin Sod/ Tazobactam Sod (Zosyn 2.25gm/ 50ml (Pmx)) 50 ml @ 100 mls/hr Q6 IVPB Last administered on 01/22/17 05:57; Admin Dose 100 MLS/HR; Start 06/28 at 09:00 Insulin Glargine (Lantus) 25 unit DAILY@20 SC Last administered on 01/21/17 20 :12; Admin Dose 25 UNIT; Start 01/21/17 at 20:00 Lubiprostone (Amitiza) 24 mcg BID PO Last administered on 01/21/17 20:35; Admin Dose 24 MCG; Start 01/21/17 at 21:00 STUART STANLEY MD Jan 22, 2017 12:06
--- NOTE | 2017-01-22 12:11 | PN ---
Date/Time of Note Date/Time of Note DATE: 01/22/17 TIME: 11:57 Assessment/Plan Lines/Catheters IV Catheter Type (from Nrs): Saline Lock Sykes in Place (from Nrs): Yes Assessment/Plan Chief Complaint/Hosp Course 1. [place] obesity: BMI 48 -encourage weight loss -nutrition optimization -eventual bariatric surgery when medically stable 2. CHF: dyspnea with pulmonary congestion; dyspnea improved -continue diuresis per cards -medical optimization 3. Elevated troponin: renal failure vs NSTEMI; invasive/stress testing not recommended at this time per cards -trend and monitor 4. Chronic kidney disease: cr worsening; on bumex gtt; dialysis to be started; awaiting line placement by vascular -per renal 5. Diabetes: blood sugar labile; on long acting and short acting insulin -optimize blood sugar control 6. Hypertension: controlled -cont. antihypertensives 7. YEVGENIY: morbid obesity, dyspnea improved -cpap 8. Leukocytosis: on steroids; blood and urine growing staph vs. dvt; no fevers; wbc increasing, ascitic fluid (low PMN- not the source per ID) -abx per sensitivity 9. Dyspnea: multifactorial chf+ morbid obesity + ascites + YEVGENIY; improved -supportive -as above 10. Hyponatremia: ?overloaded, CHF, normalized - judicious fluid management -diuretics per renal 11. Anemia: CKD +/- chronic disease; doubt active bleed; h/h stable -monitor -transfuse as needed 12. Hypothyroidism; low tsh/t4 -medical optimization 13. Hypocalcemia: likely 2/2 poor nutrition + hypothyroid -optimize lytes -as above -medical optimization 14. Hypoalbuminemia: liver disease; ?overloaded, improving Patient seen and examined in collaboration with Dr. Marcelino Morales Problems: Subjective 24 Hr Interval Summary Awake, conversant. Breathing better. No c/o pain, cp, palpitations, sob, cough , no fevers, chills, n/v/d, mccallum, sz.agreed to start dialysis, awaiting permacath placement by vascular Exam/Review of Systems Vital Signs Vitals Vital Signs Date Time Temp Pulse Resp B/P Pulse Ox O2 Delivery O2 Flow Rate FiO2 01/22/17 10:22 6.0 01/22/17 09:00 79 22 97 Nasal Cannula 01/22/17 06:58 98.4 113/57 01/19/17 02:12 28 Intake and Output 01/21/17 01/21/17 01/22/17 15:00 23:00 07:00 Intake Total 900 ml 350 ml Output Total 1000 ml 1100 ml Balance -100 ml -750 ml Exam Free Text/Dictation Constitutional: alert, obese, oriented, more awake, well developed, Psych: nl mood/affect, no complaints Head: atraumatic, normocephalic Eyes: nl conjunctiva, nl lids ENMT: mucosa pink and moist Neck: non-tender, supple Respiratory: diminished breath sounds; no use of accessory muscles Cardiovascular: regular rate and rhythm Gastrointestinal: distended (mod), non-tender, soft Genitourinary - Male: nl penis, nl scrotum, No CVA tenderness; sykes, clear urine output Musculoskeletal: nl extremities to inspection Extremities: edema (ble 4+), normal pulses 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: nl mental status, nl speech Skin: No rash or lesions Results Result Diagram: 01/22/17 0703 01/22/17 0703 ERLINDA VALLE NP Jan 22, 2017 12:09
[2017-01-22] MEDS ORDERED: NA PHOSPHATE/BIPHOS 133 ML ENEMA PR ONE (13:00)
[2017-01-22] MEDS: BUMETANIDE 25 MG in DEXTROSE 5% 150 ML IV SCH (14:30)
[2017-01-22] MEDS: INSULIN GLARGINE [LANtus] 3 ML PEN SC SCH (20:31)
[2017-01-22] MEDS: LACTULOSE 30ML CUP PO SCH (20:32)
[2017-01-22] MEDS: ATORVASTATIN 20 MG TAB PO SCH (21:00)
[2017-01-23] VITALS (24 sets, daily range): BP systolic 111–145; BP diastolic 54–86; PULSE 76–88; RESP 15–20
[2017-01-23] MEDS: ALBUTEROL/IPRATROPIUM (NEB) 3 ML AMP HHN PRN (00:42)
[2017-01-23] MEDS: BUMETANIDE 25 MG in DEXTROSE 5% 150 ML IV SCH (01:16)
[2017-01-23] MEDS ORDERED: INSULIN ASPART [NOVOLOG] 3 ML PEN SC ONE (02:00)
[2017-01-23] MEDS: ACCU-CHEK XX SCH (02:00)
[2017-01-23] MEDS: PIPER-TAZO 2.25 GM (PMX) 50 ML IVPB SCH ×3 (05:59→17:35)
--- NOTE | 2017-01-23 06:21 | CONS ---
Date/Time of Note Date/Time of Note DATE: 01/23/17 TIME: Assessment/Plan Assessment/Plan Chief Complaint/Hosp Course 1)Liver cirrhosis with portal HTN due to Hep C to repeat ammonia level 01/21 - ammonia level is mildly elevated at 57 consider lacutlose 2) CHF +/- pneumonia unable to tolerate lasix with worsening renal function 01/21 - in light of MSSA in blood and no open wounds or chronic IV in place, concern would be lung may be the portal of entry to start zosyn to cover for lung infection as well as the MSSA CXR does not show a lobar infiltrate 01/22 - continue with zosyn 01/23 - beta d glucan to look for invasive fungal disease was negative continue with zosyn 3) r/o SBP pt to get paracentesis later today cefotaxime was started by the primary if fevers not improving will broaden the coverage 01/20 - pt to get paracentesis today continue with cefotaxime 01/21 - low number of PMN's in ascitic fluid, this in not the source for his MSSA d/c cefotaxime 4) new onset fever with leukocytosis pt has been on steroids but this does not explain the new fever the potential sources would include, ascitic fluid, lung urinalysis does not suggest an infection will order beta d glucan, aspergillus galactomannan, procalcitonin in a.m. will order LE dopplers to make sure no DVT has developed if cefotaxime does not improve his fever, wbc then will broaden coverage to include lung infection 01/20 - await paracentesis and a.m. labs vanco added due to GPC in blood cx fevers appear improved 01/21 - MSSA is present in blood and urine cx u/a did not show signs of infection and so the urine may only be seeded from the bacteremia will order repeat u/a at this time d/c vanco/cefotaxime and start zosyn since there is no skin breakdown or ulcers the lung becomes a more likely portal of entry 01/22 - fevers resolved continue with zosyn for bacteremia and possible pneumonia 5) MSSA bacteremia 01/20 - no central line in place, IV sites look ok await ID to see if true infection or a contaminant vanco started, will order repeat blood cx now 01/21 - true infection of blood with MSSA repeat blood cx from 01/20 is NGTD d/c vanco/cefotaxime and start zosyn check u/a 01/22 - MSSA in one set from 01/20 repeat blood cx today pt needs dialysis and likely he is no longer bacteremic so ok for dialysis line but if pt remains bacteremic it will need to be replaced 01/23 - pt to get dialysis line today and likely HD afterwards continue with zosyn Problems: Consultation Date/Type/Reason Admit Date/Time Jan 07, 2017 at 10:13 Initial Consult Date 01/19/17 Type of Consultation: ID Referring Provider: JENY MORA MD 24 HR Interval Summary Free Text/Dictation pt slept a little bit overnight no V, D unable to get dialysis line yesterday he is scheduled at 10 today Exam/Review of Systems Vital Signs Vitals Vital Signs Date Time Temp Pulse Resp B/P Pulse Ox O2 Delivery O2 Flow Rate FiO2 01/23/17 04:00 98.4 76 19 126/72 97 01/23/17 00:43 Nasal Cannula 6.0 Intake and Output 01/22/17 01/22/17 01/23/17 15:00 23:00 07:00 Intake Total 250 ml 170 ml Output Total 700 ml 1200 ml Balance -450 ml -1030 ml Exam Constitutional: alert Head: normocephalic Respiratory: clear to auscultation Cardiovascular: regular rate and rhythm Gastrointestinal: distended, soft Results Result Diagram: 01/22/17 0703 01/22/17 0703 Results 24 hrs Laboratory Tests Test 01/22/17 07:03 01/22/17 07:30 01/22/17 10:47 01/22/17 10:50 White Blood Count 13.1 H Red Blood Count 3.14 L Hemoglobin 8.0 L Hematocrit 26.3 L Mean Corpuscular Volume 83.8 Mean Corpuscular Hemoglobin 25.5 L Mean Corpuscular Hemoglobin Concent 30.4 L Red Cell Distribution Width 16.7 H Platelet Count 87 L Mean Platelet Volume Neutrophils % 88.7 H Lymphocytes % 3.4 L Monocytes % 7.1 Eosinophils % 0.1 Basophils % 0.1 Nucleated Red Blood Cells % 0.0 Neutrophils # 11.6 H Lymphocytes # 0.5 L Monocytes # 0.9 Eosinophils # 0.0 Basophils # 0.0 Nucleated Red Blood Cells # 0.0 Sodium Level 135 Potassium Level 4.3 Chloride Level 100 Carbon Dioxide Level 27 Anion Gap 12 Blood Urea Nitrogen 113 H Creatinine 3.70 H Glucose Level 270 H Calcium Level 8.2 L Total Bilirubin 0.4 Direct Bilirubin 0.00 Indirect Bilirubin 0.4 Aspartate Amino Transf (AST/SGOT) 33 Alanine Aminotransferase (ALT/SGPT) 52 Alkaline Phosphatase 127 H Total Protein 6.7 Albumin 3.2 L Globulin 3.50 H Albumin/Globulin Ratio 0.91 Bedside Glucose 254 H Lab Scanned Report REFERENCE LAB REFERENCE LAB Test 01/22/17 11:51 01/22/17 17:42 01/22/17 20:21 01/23/17 01:09 Bedside Glucose 263 H 253 H 268 H 311 H Medications Medications Current Medications Atorvastatin Calcium (Lipitor) 20 mg HS PO Last administered on 01/21/17 20:35 ; Admin Dose 20 MG; Start 01/07/17 at 21:00 Miscellaneous Information 1 ea NOTE XX ; Start 01/07/17 at 17:30 Glucose (Glutose) 15 gm Q15M PRN PO DECREASED GLUCOSE; Start 01/07/17 at 17:30 Glucose (Glutose) 22.5 gm Q15M PRN PO DECREASED GLUCOSE; Start 01/07/17 at 17: 30 Dextrose (D50w Syringe) 25 ml Q15M PRN IV DECREASED GLUCOSE; Start 01/07/17 at 17:30 Dextrose (D50w Syringe) 50 ml Q15M PRN IV DECREASED GLUCOSE; Start 01/07/17 at 17:30 Glucagon (Glucagen) 1 mg Q15M PRN IM DECREASED GLUCOSE; Start 01/07/17 at 17:30 Glucose (Glutose) 15 gm Q15M PRN BUCCAL DECREASED GLUCOSE; Start 01/07/17 at 17 :30 Nifedipine (Procardia Xl) 30 mg DAILY PO Last administered on 01/21/17 08:49; Admin Dose 30 MG; Start 01/08/17 at 09:00 Lactulose (Enulose) 20 gm HS PO Last administered on 01/22/17 20:32; Admin Dose 20 GM; Start 01/07/17 at 21:00 Docusate Sodium (Colace) 100 mg BID PRN PO CONSTIPATION Last administered on 09:10; Admin Dose 100 MG; Start 01/08/17 at 14:00 Acetaminophen (Tylenol Tab) 500 mg Q6H PRN PO PAIN AND OR ELEVATED TEMP Last administered on 01/20/17 09:27; Admin Dose 500 MG; Start 01/08/17 at 15:30 Acetaminophen/ Hydrocodone Bitart ([place] (5/325)) 1 tab Q4H PRN PO PAIN Last administered on 01/21/17 23:29; Admin Dose 1 TAB; Start 01/09/17 at 08:30 Diagnostic Test (Pha) (Accu-Chek) 1 ea 02 XX Last administered on 01/21/17 02: 05; Admin Dose 1 EA; Start 01/15/17 at 02:00 Insulin Aspart 10 unit 10 unit ONCE PRN SC ELEVATED GLUCOSE Last administered on 01/21/17 02:15; Admin Dose 10 UNIT; Start 01/17/17 at 02:00 Sodium Chloride (1/2 NS) 1,000 ml @ 40 mls/hr Q24H IV Last administered on 01/18 21:32; Admin Dose 75 MLS/HR; Start 01/17/17 at 17:00; Status Future Hold Nitroglycerin 1 tab 1 tab Q5M PRN SL ANGINA; Start 01/18/17 at 21:30 Bumetanide/ Dextrose (Bumex/D5W) 250 ml @ 10 mls/hr Q24H IV Last administered on 01/23/17 01:16; Admin Dose 10 MLS/HR; Start 01/19/17 at 14:30 Epoetin Sean 39808 units 10,000 units MoWeFr@17 SC Last administered on 17:23; Admin Dose 10,000 UNITS; Start 01/19/17 at 17:00 Piperacillin Sod/ Tazobactam Sod (Zosyn 2.25gm/ 50ml (Pmx)) 50 ml @ 100 mls/hr Q6 IVPB Last administered on 01/23/17 05:59; Admin Dose 100 MLS/HR; Start 06/28 at 09:00 Insulin Glargine (Lantus) 25 unit DAILY@20 SC Last administered on 01/22/17 20 :31; Admin Dose 25 UNIT; Start 01/21/17 at 20:00 Lubiprostone (Amitiza) 24 mcg BID PO Last administered on 01/22/17 20:32; Admin Dose 24 MCG; Start 01/21/17 at 21:00 Lactulose (Enulose) 20 gm BID PRN PO CONSTIPATION; Start 01/22/17 at 13:00 DANYEL HART MD Jan 23, 2017 06:20
[2017-01-23 07:03] LABS: ADD SCAN DIFF NO
[2017-01-23 07:16] LABS: ABNORMAL IP MESSAGE 1; BASOPHILS % 0.1 % (0.0-2.0); EOSINOPHILS # 0.2 10^3/ul (0.0-0.5); EOSINOPHILS % 1.5 % (0.0-7.0); HEMATOCRIT 27.2 % (42.0-52.0); HEMOGLOBIN 8.2 g/dl (14.0-18.0); LYMPHOCYTES # 0.7 10^3/ul (0.8-2.9); LYMPHOCYTES % 5.1 % (15.0-51.0); MEAN CORPUSCULAR HGB CONC 30.1 g/dl (32.0-37.0); MEAN CORPUSCULAR VOLUME 82.9 fl (82.0-101.0); MEAN PLATELET VOLUME 11.8 fl (7.4-10.4); MONOCYTE # 1.3 10^3/ul (0.3-0.9); MONOCYTES % 9.6 % (0.0-11.0); NEUTROPHIL # 10.8 10^3/ul (1.6-7.5); NEUTROPHILS % 82.6 % (39.0-77.0); NUCLEATED RED BLOOD CELLS% 0.2 /100WBC (0.0-0.0); PLATELET COUNT 88 10^3/UL (140-415); RED BLOOD COUNT 3.28 10^6/ul (4.70-6.10); RED CELL DISTRIBUTION WIDTH 16.7 % (11.5-14.5); WHITE BLOOD COUNT 13.1 10^3/ul (4.8-10.8)
[2017-01-23 07:39] LABS: CALCIUM 8.3 mg/dl (8.4-10.2); CREATININE 3.65 mg/dl (0.61-1.24)
--- NOTE | 2017-01-23 07:45 | HPN ---
Date/Time of Note Date/Time of Note DATE: 01/23/17 TIME: 07:44 Interval H&P Admission Note Pt. seen H&P reviewed: No system changes SAWYER ABRAMS MD Jan 23, 2017 07:45
[2017-01-23] MEDS: INSULIN ASPART [NOVOLOG] 3 ML PEN SC SCH ×4 (07:55→21:06)
[2017-01-23] MEDS: ALBUTEROL/IPRATROPIUM (NEB) 3 ML AMP HHN SCH ×4 (08:05→21:53)
[2017-01-23] MEDS: NIFEdipine (XL) 30 MG TAB PO SCH (08:11)
[2017-01-23] MEDS: LUBIPROSTONE 24 MCG CAP PO SCH ×2 (08:11→21:00)
--- NOTE | 2017-01-23 08:23 | CONS ---
Date/Time of Note Date/Time of Note DATE: 01/23/17 TIME: 08:19 Assessment/Plan Assessment/Plan Chief Complaint/Hosp Course Impression: 1. Chronic kidney disease. The patient is on a Bumex drip and he is in negative fluid balance ; however , his BUN and creatinine continue to rise. I recommended that he start hemodialysis when a catheter can be placed. He is scheduled to have a permacath placed this morning by Dr. Patiño. After that he will have hemodialysis. If he tolerates the hemodialysis treatment then he will have another hemodialysis treatment tomorrow. I have explained this to the patient and family. They understand the risks involved. 2. 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 Hypertension 4. Hyperlipidemia 5. Anemia 6. Congestive heart failure 7. Obstructive sleep apnea Plan: 1. Continue Bumex drip for now 2. Epogen for anemia 3. Start dialysis when vascular catheter, permacath is placed today 4. I will follow patient along with you Problems: Consultation Date/Type/Reason Admit Date/Time Jan 07, 2017 at 10:13 Initial Consult Date 01/19/17 Type of Consultation: renal Referring Provider: JENY MORA MD 24 HR Interval Summary Free Text/Dictation This patient is being seen on the telemetry floor. He is lethargic but arouses to verbal stimuli. His is in the room with him. Patient continues to have shortness of breath. Exam/Review of Systems Vital Signs Vitals Vital Signs Date Time Temp Pulse Resp B/P Pulse Ox O2 Delivery O2 Flow Rate FiO2 01/23/17 08:05 6.0 01/23/17 08:05 93 20 96 Nasal Cannula 01/23/17 07:14 98.5 111/54 Intake and Output 01/22/17 01/22/17 01/23/17 15:00 23:00 07:00 Intake Total 250 ml 230 ml Output Total 700 ml 1200 ml Balance -450 ml -970 ml Exam Constitutional: alert, oriented Respiratory: clear to auscultation, diminished breath sounds Cardiovascular: edema, regular rate and rhythm Gastrointestinal: ascites, distended, non-tender Extremities: edema Results Result Diagram: 01/23/17 0625 01/23/17 0625 Results 24 hrs Laboratory Tests Test 01/22/17 10:47 01/22/17 10:50 01/22/17 11:51 01/22/17 17:42 Lab Scanned Report REFERENCE LAB REFERENCE LAB Bedside Glucose 263 H 253 H Test 01/22/17 20:21 01/23/17 01:09 01/23/17 06:25 01/23/17 07:55 Bedside Glucose 268 H 311 H 162 White Blood Count 13.1 H Red Blood Count 3.28 L Hemoglobin 8.2 L Hematocrit 27.2 L Mean Corpuscular Volume 82.9 Mean Corpuscular Hemoglobin 25.0 L Mean Corpuscular Hemoglobin Concent 30.1 L Red Cell Distribution Width 16.7 H Platelet Count 88 L Mean Platelet Volume 11.8 H Neutrophils % 82.6 H Lymphocytes % 5.1 L Monocytes % 9.6 Eosinophils % 1.5 Basophils % 0.1 Nucleated Red Blood Cells % 0.2 H Neutrophils # 10.8 H Lymphocytes # 0.7 L Monocytes # 1.3 H Eosinophils # 0.2 Basophils # 0.0 Nucleated Red Blood Cells # 0.0 Sodium Level 138 Potassium Level 4.0 Chloride Level 100 Carbon Dioxide Level 29 Anion Gap 13 Blood Urea Nitrogen 119 H Creatinine 3.65 H Glucose Level 178 Calcium Level 8.3 L Medications Medications Current Medications Atorvastatin Calcium (Lipitor) 20 mg HS PO Last administered on 01/21/17 20:35 ; Admin Dose 20 MG; Start 01/07/17 at 21:00 Miscellaneous Information 1 ea NOTE XX ; Start 01/07/17 at 17:30 Glucose (Glutose) 15 gm Q15M PRN PO DECREASED GLUCOSE; Start 01/07/17 at 17:30 Glucose (Glutose) 22.5 gm Q15M PRN PO DECREASED GLUCOSE; Start 01/07/17 at 17: 30 Dextrose (D50w Syringe) 25 ml Q15M PRN IV DECREASED GLUCOSE; Start 01/07/17 at 17:30 Dextrose (D50w Syringe) 50 ml Q15M PRN IV DECREASED GLUCOSE; Start 01/07/17 at 17:30 Glucagon (Glucagen) 1 mg Q15M PRN IM DECREASED GLUCOSE; Start 01/07/17 at 17:30 Glucose (Glutose) 15 gm Q15M PRN BUCCAL DECREASED GLUCOSE; Start 01/07/17 at 17 :30 Nifedipine (Procardia Xl) 30 mg DAILY PO Last administered on 01/21/17 08:49; Admin Dose 30 MG; Start 01/08/17 at 09:00 Lactulose (Enulose) 20 gm HS PO Last administered on 01/22/17 20:32; Admin Dose 20 GM; Start 01/07/17 at 21:00 Docusate Sodium (Colace) 100 mg BID PRN PO CONSTIPATION Last administered on 09:10; Admin Dose 100 MG; Start 01/08/17 at 14:00 Acetaminophen (Tylenol Tab) 500 mg Q6H PRN PO PAIN AND OR ELEVATED TEMP Last administered on 01/20/17 09:27; Admin Dose 500 MG; Start 01/08/17 at 15:30 Acetaminophen/ Hydrocodone Bitart ([place] (5/325)) 1 tab Q4H PRN PO PAIN Last administered on 01/21/17 23:29; Admin Dose 1 TAB; Start 01/09/17 at 08:30 Diagnostic Test (Pha) (Accu-Chek) 1 ea 02 XX Last administered on 01/21/17 02: 05; Admin Dose 1 EA; Start 01/15/17 at 02:00 Insulin Aspart 10 unit 10 unit ONCE PRN SC ELEVATED GLUCOSE Last administered on 01/21/17 02:15; Admin Dose 10 UNIT; Start 01/17/17 at 02:00 Sodium Chloride (1/2 NS) 1,000 ml @ 40 mls/hr Q24H IV Last administered on 01/18 21:32; Admin Dose 75 MLS/HR; Start 01/17/17 at 17:00; Status Future Hold Nitroglycerin 1 tab 1 tab Q5M PRN SL ANGINA; Start 01/18/17 at 21:30 Bumetanide/ Dextrose (Bumex/D5W) 250 ml @ 10 mls/hr Q24H IV Last administered on 01/23/17 01:16; Admin Dose 10 MLS/HR; Start 01/19/17 at 14:30 Epoetin Sean 67010 units 10,000 units MoWeFr@17 SC Last administered on 17:23; Admin Dose 10,000 UNITS; Start 01/19/17 at 17:00 Piperacillin Sod/ Tazobactam Sod (Zosyn 2.25gm/ 50ml (Pmx)) 50 ml @ 100 mls/hr Q6 IVPB Last administered on 01/23/17 05:59; Admin Dose 100 MLS/HR; Start 06/28 at 09:00 Insulin Glargine (Lantus) 25 unit DAILY@20 SC Last administered on 01/22/17 20 :31; Admin Dose 25 UNIT; Start 01/21/17 at 20:00 Lubiprostone (Amitiza) 24 mcg BID PO Last administered on 01/22/17 20:32; Admin Dose 24 MCG; Start 01/21/17 at 21:00 Lactulose (Enulose) 20 gm BID PRN PO CONSTIPATION; Start 01/22/17 at 13:00 ANA MELENDEZ MD Jan 23, 2017 08:23
[2017-01-23] MEDS ORDERED: LIDOCAINE 1% (MPF) 30 ML INJ ONE (09:06)
[2017-01-23] MEDS ORDERED: POLYMYXIN/BACITRACIN 1L IRRIG ONE (09:07)
[2017-01-23] MEDS ORDERED: HEPARIN 1000 UNITS/ML 10 ML INJ ONE ×2 (09:07→11:30)
[2017-01-23] MEDS ORDERED: EPHEDrine SULFATE 50 MG/5 ML SYG IV PRN (09:30)
[2017-01-23] MEDS ORDERED: METOCLOPRAMIDE 10 MG INJ IV PRN (09:30)
[2017-01-23] MEDS ORDERED: LABETALOL HCL 20MG INJ IV PRN (09:30)
[2017-01-23] MEDS ORDERED: FENTAnyl 50 MCG/ML VIAL IV PRN ×3 (09:30)
[2017-01-23] MEDS ORDERED: MIDAZOLAM 1 MG/ML 2 ML INJ IV PRN (09:30)
[2017-01-23] MEDS ORDERED: DIPHENHYDRAMINE 50 MG INJ IV PRN (09:30)
[2017-01-23] MEDS ORDERED: morphine (1 MG/ML) 10ML SYRINGE IV PRN ×3 (09:30)
[2017-01-23] MEDS ORDERED: hydrALAzine 20 MG INJ IV PRN (09:30)
[2017-01-23] MEDS ORDERED: MEPERIDINE 25 MG INJ IV PRN (09:30)
[2017-01-23] MEDS ORDERED: OXYCODONE/ACETAMINOPHEN (5/325) TAB PO PRN ×2 (09:30)
[2017-01-23] MEDS ORDERED: ONDANSETRON 4 MG INJ IV PRN (09:30)
[2017-01-23] MEDS ORDERED: HEPARIN 1000 UNITS/ML 10 ML INJ IRR ONE (09:36)
[2017-01-23] MEDS ORDERED: LIDOCAINE 1% (MPF) 30 ML INJ INJ ONE (09:36)
[2017-01-23] MEDS ORDERED: MIDAZOLAM 1 MG/ML 2 ML INJ ONE (09:42)
[2017-01-23] MEDS ORDERED: PROPOFOL 0 ML ONE (09:42)
[2017-01-23] MEDS ORDERED: FENTAnyl 50 MCG/ML VIAL ONE (09:42)
[2017-01-23] MEDS ORDERED: CEFAZOLIN 1 GM INJ ONE (10:09)
--- NOTE | 2017-01-23 10:32 | PN ---
Date/Time of Note Date/Time of Note DATE: 01/23/17 TIME: 10:29 Assessment/Plan Lines/Catheters IV Catheter Type (from Nrs): Peripheral IV Sykes in Place (from Nrs): Yes Assessment/Plan Chief Complaint/Hosp Course 1. [place] obesity: BMI 48 -encourage weight loss -nutrition optimization -eventual bariatric surgery when medically stable 2. CHF: dyspnea with pulmonary congestion; dyspnea improved -continue diuresis per cards/renal -medical optimization 3. Elevated troponin: renal failure vs NSTEMI; invasive/stress testing not recommended at this time per cards -trend and monitor 4. Chronic kidney disease: cr worsening; on bumex gtt; dialysis; permacath to be placed today -per renal 5. Diabetes: blood sugar labile; on long acting and short acting insulin -optimize blood sugar control 6. Hypertension: controlled -cont. antihypertensives 7. YEVGENIY: morbid obesity, dyspnea improved -cpap 8. Leukocytosis: on steroids; blood and urine growing staph vs. dvt; no fevers; wbc unchanged, ascitic fluid (low PMN- not the source per ID) -abx per sensitivity 9. Dyspnea: multifactorial chf+ morbid obesity + ascites + YEVGENIY; improved -supportive -as above 10. Hyponatremia: ?overloaded, CHF, normalized - judicious fluid management -diuretics per renal 11. Anemia: CKD +/- chronic disease; doubt active bleed; h/h improved -monitor -transfuse as needed 12. Hypothyroidism; low tsh/t4 -medical optimization 13. Hypocalcemia: likely 2/2 poor nutrition + hypothyroid -optimize lytes -as above -medical optimization 14. Hypoalbuminemia: liver disease; ?overloaded, improving Patient seen and examined in collaboration with Dr. Marcelino Morales Problems: Subjective 24 Hr Interval Summary Awake, conversant. short of breath No c/o pain, cp, palpitations, cough, no fevers, chills, n/v/d, mccallum, sz. permacath placed today. dialysis starting Exam/Review of Systems Vital Signs Vitals Vital Signs Date Time Temp Pulse Resp B/P Pulse Ox O2 Delivery O2 Flow Rate FiO2 01/23/17 11:40 98.4 83 19 142/76 91 01/23/17 11:09 Nasal Cannula 2.0 Intake and Output 7/13/17 7/13/17 7/14/17 15:00 23:00 07:00 Intake Total 250 ml 230 ml Output Total 700 ml 1200 ml Balance -450 ml -970 ml Exam Free Text/Dictation Constitutional: alert, obese, oriented, more awake, well developed, Psych: nl mood/affect, no complaints Head: atraumatic, normocephalic Eyes: nl conjunctiva, nl lids ENMT: mucosa pink and moist Neck: non-tender, supple; right IJ Respiratory: diminished breath sounds; no use of accessory muscles Cardiovascular: regular rate and rhythm Gastrointestinal: distended (mod), non-tender, soft Genitourinary - Male: nl penis, nl scrotum, No CVA tenderness; sykes, clear urine output Musculoskeletal: nl extremities to inspection Extremities: edema (ble 4+), normal pulses 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: nl mental status, nl speech Skin: No rash or lesions Results Result Diagram: 01/23/17 0625 01/23/17 0625 ERLINDA VALLE NP Jan 23, 2017 10:32
--- NOTE | 2017-01-23 10:42 | OPR ---
Date/Time of Note Date/Time of Note DATE: 01/23/17 TIME: 10:40 Operative Report Preoperative Diagnosis ESRD Postoperative Diagnosis same Operation/Procedure Performed R IJ permacath Surgeon: SAWYER ABRAMS MD Anesthesia: MAC Estimated Blood Loss: minimal Grafts/Implants 23 cm permacath, tips in RA Complications: None SAWYER ABRAMS MD Jan 23, 2017 10:42
--- NOTE | 2017-01-23 11:46 | RADRPT ---
PROCEDURE: Intraoperative imaging of the chest with fluoroscopy. CLINICAL INDICATION: Line placement. Intraoperative. TECHNIQUE: A single frontal image of the chest was obtained in the operating room with an image in tensifier. No radiologist was in attendance. Fluoroscopy time is 8.8 seconds. COMPARISON: Chest x-ray dated 01/21/2017. FINDINGS: The image demonstrates a right internal jugular vein tunneled dialysis catheter with the tip overlyi ng the region of the cavoatrial junction. IMPRESSION: 1. Intraoperative imaging of the chest. RPTAT: QQ .Ulices Silva MD, MD Date Time Electronically viewed and signed by .Ulices Silva MD, MD on 01/23/2017 11:45 .R/
--- NOTE | 2017-01-23 12:47 | CONS ---
Date/Time of Note Date/Time of Note DATE: 01/23/17 TIME: 12:45 Consult Date/Type/Reason Admit Date/Time Jan 07, 2017 at 10:13 Initial Consult Date 01/09/17 Type of Consultation: Pulmonary Ordering Provider: JENY MORA MD Subjective Status post permacath placement Objective Vital Signs Date Time Temp Pulse Resp B/P Pulse Ox O2 Delivery O2 Flow Rate FiO2 01/23/17 12:00 80 01/23/17 11:40 98.4 19 142/76 91 01/23/17 11:09 Nasal Cannula 2.0 Intake and Output 01/22/17 01/22/17 01/23/17 15:00 23:00 07:00 Intake Total 250 ml 230 ml Output Total 700 ml 1200 ml Balance -450 ml -970 ml Exam GENERAL: Morbidly obese gentleman comfortable at rest no acute distress VITAL SIGNS: per chart NECK: Supple. No JVD or lymphadenopathy. CARDIAC EXAM: S1, S2. No added sounds or murmurs. CHEST: clear bilaterally, No added sounds, rales or wheezes ABDOMEN: Soft, nontender. No guarding or rebound. EXTREMITIES: No cyanosis, clubbing or edema. NEUROLOGIC: Generalized weakness. No focal deficits. Results/Medications Result Diagram: 01/23/17 0625 01/23/17 0625 Results 24 hrs Laboratory Tests Test 01/22/17 17:42 01/22/17 20:21 01/23/17 01:09 01/23/17 06:25 Bedside Glucose 253 H 268 H 311 H White Blood Count 13.1 H Red Blood Count 3.28 L Hemoglobin 8.2 L Hematocrit 27.2 L Mean Corpuscular Volume 82.9 Mean Corpuscular Hemoglobin 25.0 L Mean Corpuscular Hemoglobin Concent 30.1 L Red Cell Distribution Width 16.7 H Platelet Count 88 L Mean Platelet Volume 11.8 H Neutrophils % 82.6 H Lymphocytes % 5.1 L Monocytes % 9.6 Eosinophils % 1.5 Basophils % 0.1 Nucleated Red Blood Cells % 0.2 H Neutrophils # 10.8 H Lymphocytes # 0.7 L Monocytes # 1.3 H Eosinophils # 0.2 Basophils # 0.0 Nucleated Red Blood Cells # 0.0 Sodium Level 138 Potassium Level 4.0 Chloride Level 100 Carbon Dioxide Level 29 Anion Gap 13 Blood Urea Nitrogen 119 H Creatinine 3.65 H Glucose Level 178 Calcium Level 8.3 L Test 01/23/17 07:55 Bedside Glucose 162 Medications Current Medications Atorvastatin Calcium (Lipitor) 20 mg HS PO Last administered on 01/21/17 20:35 ; Admin Dose 20 MG; Start 01/07/17 at 21:00 Miscellaneous Information 1 ea NOTE XX ; Start 01/07/17 at 17:30 Glucose (Glutose) 15 gm Q15M PRN PO DECREASED GLUCOSE; Start 01/07/17 at 17:30 Glucose (Glutose) 22.5 gm Q15M PRN PO DECREASED GLUCOSE; Start 01/07/17 at 17: 30 Dextrose (D50w Syringe) 25 ml Q15M PRN IV DECREASED GLUCOSE; Start 01/07/17 at 17:30 Dextrose (D50w Syringe) 50 ml Q15M PRN IV DECREASED GLUCOSE; Start 01/07/17 at 17:30 Glucagon (Glucagen) 1 mg Q15M PRN IM DECREASED GLUCOSE; Start 01/07/17 at 17:30 Glucose (Glutose) 15 gm Q15M PRN BUCCAL DECREASED GLUCOSE; Start 01/07/17 at 17 :30 Nifedipine (Procardia Xl) 30 mg DAILY PO Last administered on 01/21/17 08:49; Admin Dose 30 MG; Start 01/08/17 at 09:00 Lactulose (Enulose) 20 gm HS PO Last administered on 01/22/17 20:32; Admin Dose 20 GM; Start 01/07/17 at 21:00 Docusate Sodium (Colace) 100 mg BID PRN PO CONSTIPATION Last administered on 09:10; Admin Dose 100 MG; Start 01/08/17 at 14:00 Acetaminophen (Tylenol Tab) 500 mg Q6H PRN PO PAIN AND OR ELEVATED TEMP Last administered on 01/20/17 09:27; Admin Dose 500 MG; Start 01/08/17 at 15:30 Acetaminophen/ Hydrocodone Bitart ([place] (5/325)) 1 tab Q4H PRN PO PAIN Last administered on 01/21/17 23:29; Admin Dose 1 TAB; Start 01/09/17 at 08:30 Diagnostic Test (Pha) (Accu-Chek) 1 ea 02 XX Last administered on 01/21/17 02: 05; Admin Dose 1 EA; Start 01/15/17 at 02:00 Insulin Aspart 10 unit 10 unit ONCE PRN SC ELEVATED GLUCOSE Last administered on 01/21/17 02:15; Admin Dose 10 UNIT; Start 01/17/17 at 02:00 Sodium Chloride (1/2 NS) 1,000 ml @ 40 mls/hr Q24H IV Last administered on 01/18 21:32; Admin Dose 75 MLS/HR; Start 01/17/17 at 17:00; Status Future Hold Nitroglycerin 1 tab 1 tab Q5M PRN SL ANGINA; Start 01/18/17 at 21:30 Bumetanide/ Dextrose (Bumex/D5W) 250 ml @ 10 mls/hr Q24H IV Last administered on 01/23/17 01:16; Admin Dose 10 MLS/HR; Start 01/19/17 at 14:30 Epoetin Sean 36915 units 10,000 units MoWeFr@17 SC Last administered on 17:23; Admin Dose 10,000 UNITS; Start 01/19/17 at 17:00 Piperacillin Sod/ Tazobactam Sod (Zosyn 2.25gm/ 50ml (Pmx)) 50 ml @ 100 mls/hr Q6 IVPB Last administered on 01/23/17 05:59; Admin Dose 100 MLS/HR; Start 06/28 at 09:00 Insulin Glargine (Lantus) 25 unit DAILY@20 SC Last administered on 01/22/17 20 :31; Admin Dose 25 UNIT; Start 01/21/17 at 20:00 Lubiprostone (Amitiza) 24 mcg BID PO Last administered on 01/22/17 20:32; Admin Dose 24 MCG; Start 01/21/17 at 21:00 Lactulose (Enulose) 20 gm BID PRN PO CONSTIPATION; Start 01/22/17 at 13:00 Assessment/Plan Chief Complaint/Hosp Course IMP: 1. Dyspnea--likely multifactorial, component of obesity pulmonary edema cirrhosis obstructive sleep apnea. 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 YEVGENIY 4. CKD RECS: 1. BD's 2. Stop steroids 3. Fluid restriction 4. Encourage out of bed 5. Hemodialysis now vascular catheter placed. Problems: GUERITA RESENDIZ MD, [facility] Jan 23, 2017 12:46
--- NOTE | 2017-01-23 17:29 | CONS ---
Date/Time of Note Date/Time of Note DATE: 01/23/17 TIME: 17:28 Assessment/Plan Assessment/Plan Chief Complaint/Hosp Course Assessment: - Dyspnea- pulm edema, likely 2/2 MICHELL/CLF. - Elevated trop- atypical cp, ekg without acute abnl, no changes from admit. echo poor quality, but no obvious wall motion abnl, normal overall fxn. also with renal failure ? type ii vs type i nstemi. can consider cath vs. stress testing, however no cp at this time. would awaiting initiation of iHD then discuss options with pt/family. 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 stress testing Problems: Consultation Date/Type/Reason Admit Date/Time Jan 07, 2017 at 10:13 Initial Consult Date 01/09/17 Type of Consultation: Pulmonary Referring Provider: JENY MORA MD Exam/Review of Systems Vital Signs Vitals Vital Signs Date Time Temp Pulse Resp B/P Pulse Ox O2 Delivery O2 Flow Rate FiO2 01/23/17 17:24 6.0 01/23/17 16:00 81 01/23/17 15:28 98.2 19 138/73 96 01/23/17 11:09 Nasal Cannula Intake and Output 01/22/17 01/22/17 01/23/17 15:00 23:00 07:00 Intake Total 250 ml 230 ml Output Total 700 ml 1200 ml Balance -450 ml -970 ml Results Result Diagram: 01/23/17 0625 01/23/17 0625 Results 24 hrs Laboratory Tests Test 01/22/17 17:42 01/22/17 20:21 01/23/17 01:09 01/23/17 06:25 Bedside Glucose 253 H 268 H 311 H White Blood Count 13.1 H Red Blood Count 3.28 L Hemoglobin 8.2 L Hematocrit 27.2 L Mean Corpuscular Volume 82.9 Mean Corpuscular Hemoglobin 25.0 L Mean Corpuscular Hemoglobin Concent 30.1 L Red Cell Distribution Width 16.7 H Platelet Count 88 L Mean Platelet Volume 11.8 H Neutrophils % 82.6 H Lymphocytes % 5.1 L Monocytes % 9.6 Eosinophils % 1.5 Basophils % 0.1 Nucleated Red Blood Cells % 0.2 H Neutrophils # 10.8 H Lymphocytes # 0.7 L Monocytes # 1.3 H Eosinophils # 0.2 Basophils # 0.0 Nucleated Red Blood Cells # 0.0 Sodium Level 138 Potassium Level 4.0 Chloride Level 100 Carbon Dioxide Level 29 Anion Gap 13 Blood Urea Nitrogen 119 H Creatinine 3.65 H Glucose Level 178 Calcium Level 8.3 L Test 01/23/17 07:55 Bedside Glucose 162 Medications Medications Current Medications Atorvastatin Calcium (Lipitor) 20 mg HS PO Last administered on 01/21/17 20:35 ; Admin Dose 20 MG; Start 01/07/17 at 21:00 Miscellaneous Information 1 ea NOTE XX ; Start 01/07/17 at 17:30 Glucose (Glutose) 15 gm Q15M PRN PO DECREASED GLUCOSE; Start 01/07/17 at 17:30 Glucose (Glutose) 22.5 gm Q15M PRN PO DECREASED GLUCOSE; Start 01/07/17 at 17: 30 Dextrose (D50w Syringe) 25 ml Q15M PRN IV DECREASED GLUCOSE; Start 01/07/17 at 17:30 Dextrose (D50w Syringe) 50 ml Q15M PRN IV DECREASED GLUCOSE; Start 01/07/17 at 17:30 Glucagon (Glucagen) 1 mg Q15M PRN IM DECREASED GLUCOSE; Start 01/07/17 at 17:30 Glucose (Glutose) 15 gm Q15M PRN BUCCAL DECREASED GLUCOSE; Start 01/07/17 at 17 :30 Nifedipine (Procardia Xl) 30 mg DAILY PO Last administered on 01/21/17 08:49; Admin Dose 30 MG; Start 01/08/17 at 09:00 Lactulose (Enulose) 20 gm HS PO Last administered on 01/22/17 20:32; Admin Dose 20 GM; Start 01/07/17 at 21:00 Docusate Sodium (Colace) 100 mg BID PRN PO CONSTIPATION Last administered on 09:10; Admin Dose 100 MG; Start 01/08/17 at 14:00 Acetaminophen (Tylenol Tab) 500 mg Q6H PRN PO PAIN AND OR ELEVATED TEMP Last administered on 01/20/17 09:27; Admin Dose 500 MG; Start 01/08/17 at 15:30 Acetaminophen/ Hydrocodone Bitart ([place] (5/325)) 1 tab Q4H PRN PO PAIN Last administered on 01/21/17 23:29; Admin Dose 1 TAB; Start 01/09/17 at 08:30 Diagnostic Test (Pha) (Accu-Chek) 1 ea 02 XX Last administered on 01/21/17 02: 05; Admin Dose 1 EA; Start 01/15/17 at 02:00 Insulin Aspart 10 unit 10 unit ONCE PRN SC ELEVATED GLUCOSE Last administered on 01/21/17 02:15; Admin Dose 10 UNIT; Start 01/17/17 at 02:00 Sodium Chloride (1/2 NS) 1,000 ml @ 40 mls/hr Q24H IV Last administered on 01/18 21:32; Admin Dose 75 MLS/HR; Start 01/17/17 at 17:00; Status Future Hold Nitroglycerin (Nitroglycerin (Sl Tab) 0.4 Mg) 1 tab Q5M PRN SL ANGINA; Start at 21:30 Epoetin Sean 59758 units 10,000 units MoWeFr@17 SC Last administered on 17:23; Admin Dose 10,000 UNITS; Start 01/19/17 at 17:00 Piperacillin Sod/ Tazobactam Sod (Zosyn 2.25gm/ 50ml (Pmx)) 50 ml @ 100 mls/hr Q6 IVPB Last administered on 01/23/17 05:59; Admin Dose 100 MLS/HR; Start 06/28 at 09:00 Insulin Glargine (Lantus) 25 unit DAILY@20 SC Last administered on 01/22/17 20 :31; Admin Dose 25 UNIT; Start 01/21/17 at 20:00 Lubiprostone (Amitiza) 24 mcg BID PO Last administered on 01/22/17 20:32; Admin Dose 24 MCG; Start 01/21/17 at 21:00 Lactulose (Enulose) 20 gm BID PRN PO CONSTIPATION; Start 01/22/17 at 13:00 MARISEL MEEKS Jan 23, 2017 17:29
[2017-01-23] MEDS: EPOETIN 10000 UNITS/1 ML INJ (ESRD) SC SCH (17:37)
--- NOTE | 2017-01-23 18:26 | CONS ---
Date/Time of Note Date/Time of Note DATE: 01/23/17 TIME: 18:24 Assessment/Plan Assessment/Plan Chief Complaint/Hosp Course 61-year-old male admitted for shortness of breath. Patient is a history of hepatitis C cirrhosis of liver, morbid obesity obstructive sleep apnea, diabetes mellitus and hypertension. Recent was brought to the emergency room for abdominal distention and shortness of breath. He was slightly nauseous. 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 Problems: Additional Assessment/Plan Additional Assessment/Plan 1. Shortness of breath multifactorial 2. Morbid obesity 3. Cirrhosis of liver with portal hypertension 4. Mild ascites 5. Diabetes 6. Hypertension 7. Renal failure 8. Anasarca 9. Bacteremia staph positive in the blood culture 10. No evidence of spontaneous bacterial peritonitis Plan P.o. fluid restriction 1000 cc a day Low-sodium diet Monitor BUN and creatinine closely Weight loss Supplemental oxygen Dietary consult, reduce calorie intake to 1000-calorie a day Renal consult Spot urine for sodium Discussed with the patient and the family Continue antibiotic Diuretic as per material loader. Amitiza Continue with the dialysis and remove fluid as tolerated by the patient Consultation Date/Type/Reason Admit Date/Time Jan 07, 2017 at 10:13 Initial Consult Date 01/09/17 Type of Consultation: Pulmonary Referring Provider: JENY MORA MD 24 HR Interval Summary Free Text/Dictation Patient was short of breath yesterday and this morning. After dialysis shortness of breath improved but he became profoundly weak Exam/Review of Systems Vital Signs Vitals Vital Signs Date Time Temp Pulse Resp B/P Pulse Ox O2 Delivery O2 Flow Rate FiO2 01/23/17 17:24 6.0 01/23/17 16:00 81 01/23/17 15:28 98.2 19 138/73 96 01/23/17 11:09 Nasal Cannula Intake and Output 01/22/17 01/22/17 01/23/17 14:59 22:59 06:59 Intake Total 250 ml 230 ml Output Total 700 ml 1200 ml Balance -450 ml -970 ml Exam Constitutional: alert, oriented, well developed Psych: nl mood/affect, no complaints Head: atraumatic, normocephalic Eyes: EOMI, PERRL, nl conjunctiva, nl lids, nl sclera ENMT: nl external ears & nose, nl lips & teeth, nl nasal mucosa & septum Neck: non-tender, supple Respiratory: clear to auscultation, normal air movement Cardiovascular: nl pulses, regular rate and rhythm Gastrointestinal: nl liver, spleen, non-tender, soft Musculoskeletal: nl extremities to inspection, nl gait and stance Extremities: normal pulses 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: 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1 L Monocytes % 9.6 Eosinophils % 1.5 Basophils % 0.1 Nucleated Red Blood Cells % 0.2 H Neutrophils # 10.8 H Lymphocytes # 0.7 L Monocytes # 1.3 H Eosinophils # 0.2 Basophils # 0.0 Nucleated Red Blood Cells # 0.0 Sodium Level 138 Potassium Level 4.0 Chloride Level 100 Carbon Dioxide Level 29 Anion Gap 13 Blood Urea Nitrogen 119 H Creatinine 3.65 H Glucose Level 178 Calcium Level 8.3 L Medications Medications Current Medications Atorvastatin Calcium (Lipitor) 20 mg HS PO Last administered on 01/21/17t 20:35 ; Admin Dose 20 MG; Start 01/07/17 at 21:00 Miscellaneous Information 1 ea NOTE XX ; Start 01/07/17 at 17:30 Glucose (Glutose) 15 gm Q15M PRN PO DECREASED GLUCOSE; Start 01/07/17 at 17:30 Glucose (Glutose) 22.5 gm Q15M PRN PO DECREASED GLUCOSE; Start 01/07/17 at 17: 30 Dextrose (D50w Syringe) 25 ml Q15M PRN IV DECREASED GLUCOSE; Start 01/07/17 at 17:30 Dextrose (D50w Syringe) 50 ml Q15M PRN IV DECREASED GLUCOSE; Start 01/07/17 at 17:30 Glucagon (Glucagen) 1 mg Q15M PRN IM DECREASED GLUCOSE; Start 01/07/17 at 17:30 Glucose (Glutose) 15 gm Q15M PRN BUCCAL DECREASED GLUCOSE; Start 01/07/17 at 17 :30 Nifedipine (Procardia Xl) 30 mg DAILY PO Last administered on 01/21/17 08:49; Admin Dose 30 MG; Start 01/08/17 at 09:00 Lactulose (Enulose) 20 gm HS PO Last administered on 01/22/17 20:32; Admin Dose 20 GM; Start 01/07/17 at 21:00 Docusate Sodium (Colace) 100 mg BID PRN PO CONSTIPATION Last administered on 09:10; Admin Dose 100 MG; Start 01/08/17 at 14:00 Acetaminophen (Tylenol Tab) 500 mg Q6H PRN PO PAIN AND OR ELEVATED TEMP Last administered on 01/20/17 09:27; Admin Dose 500 MG; Start 01/08/17 at 15:30 Acetaminophen/ Hydrocodone Bitart ([place] (5/325)) 1 tab Q4H PRN PO PAIN Last administered on 01/21/17 23:29; Admin Dose 1 TAB; Start 01/09/17 at 08:30 Diagnostic Test (Pha) (Accu-Chek) 1 ea 02 XX Last administered on 01/21/17 02: 05; Admin Dose 1 EA; Start 01/15/17 at 02:00 Insulin Aspart 10 unit 10 unit ONCE PRN SC ELEVATED GLUCOSE Last administered on 01/21/17 02:15; Admin Dose 10 UNIT; Start 01/17/17 at 02:00 Sodium Chloride (1/2 NS) 1,000 ml @ 40 mls/hr Q24H IV Last administered on 01/18 21:32; Admin Dose 75 MLS/HR; Start 01/17/17 at 17:00; Status Future Hold Nitroglycerin (Nitroglycerin (Sl Tab) 0.4 Mg) 1 tab Q5M PRN SL ANGINA; Start at 21:30 Epoetin Sean 90495 units 10,000 units MoWeFr@17 SC Last administered on 17:37; Admin Dose 10,000 UNITS; Start 01/19/17 at 17:00 Piperacillin Sod/ Tazobactam Sod (Zosyn 2.25gm/ 50ml (Pmx)) 50 ml @ 100 mls/hr Q6 IVPB Last administered on 01/23/17 17:35; Admin Dose 100 MLS/HR; Start 06/28 at 09:00 Insulin Glargine (Lantus) 25 unit DAILY@20 SC Last administered on 01/22/17 20 :31; Admin Dose 25 UNIT; Start 01/21/17 at 20:00 Lubiprostone (Amitiza) 24 mcg BID PO Last administered on 01/22/17 20:32; Admin Dose 24 MCG; Start 01/21/17 at 21:00 Lactulose (Enulose) 20 gm BID PRN PO CONSTIPATION; Start 01/22/17 at 13:00 STUART STANLEY MD Jan 23, 2017 18:26
[2017-01-23] MEDS: INSULIN GLARGINE [LANtus] 3 ML PEN SC SCH (20:11)
[2017-01-23] MEDS: ATORVASTATIN 20 MG TAB PO SCH (21:00)
[2017-01-23] MEDS: LACTULOSE 30ML CUP PO SCH (21:00)
[2017-01-24] VITALS (19 sets, daily range): BP systolic 106–139; BP diastolic 55–72; PULSE 72–90; RESP 17–22
[2017-01-24] MEDS: PIPER-TAZO 2.25 GM (PMX) 50 ML IVPB SCH ×5 (00:19→23:45)
[2017-01-24] MEDS: HYDROCODONE/APAP (5/325) TAB PO PRN ×2 (00:28→23:45)
[2017-01-24] MEDS: ACCU-CHEK XX SCH (02:09)
[2017-01-24 06:46] LABS: ADD SCAN DIFF NO
[2017-01-24 06:51] LABS: ABNORMAL IP MESSAGE 1; BASOPHILS % 0.1 % (0.0-2.0); EOSINOPHILS # 0.2 10^3/ul (0.0-0.5); EOSINOPHILS % 2.1 % (0.0-7.0); HEMATOCRIT 26.7 % (42.0-52.0); LYMPHOCYTES # 0.9 10^3/ul (0.8-2.9); MEAN CORPUSCULAR HEMOGLOBIN 25.4 pg (29.0-33.0); MEAN CORPUSCULAR VOLUME 84.8 fl (82.0-101.0); MONOCYTE # 0.8 10^3/ul (0.3-0.9); NEUTROPHIL # 7.9 10^3/ul (1.6-7.5); NEUTROPHILS % 79.4 % (39.0-77.0); PLATELET COUNT 78 10^3/UL (140-415); RED BLOOD COUNT 3.15 10^6/ul (4.70-6.10); RED CELL DISTRIBUTION WIDTH 16.8 % (11.5-14.5); WHITE BLOOD COUNT 9.9 10^3/ul (4.8-10.8)
--- NOTE | 2017-01-24 07:03 | CONS ---
Date/Time of Note Date/Time of Note DATE: 01/24/17 TIME: 06:58 Assessment/Plan Assessment/Plan Chief Complaint/Hosp Course 1)Liver cirrhosis with portal HTN due to Hep C to repeat ammonia level 01/21 - ammonia level is mildly elevated at 57 consider lacutlose 2) CHF +/- pneumonia unable to tolerate lasix with worsening renal function 01/21 - in light of MSSA in blood and no open wounds or chronic IV in place, concern would be lung may be the portal of entry to start zosyn to cover for lung infection as well as the MSSA CXR does not show a lobar infiltrate 01/22 - continue with zosyn 01/23 - beta d glucan to look for invasive fungal disease was negative continue with zosyn 01/24 - stable on zosyn wbc is back to normal 3) r/o SBP pt to get paracentesis later today cefotaxime was started by the primary if fevers not improving will broaden the coverage 01/20 - pt to get paracentesis today continue with cefotaxime 01/21 - low number of PMN's in ascitic fluid, this in not the source for his MSSA d/c cefotaxime 4) new onset fever with leukocytosis pt has been on steroids but this does not explain the new fever the potential sources would include, ascitic fluid, lung urinalysis does not suggest an infection will order beta d glucan, aspergillus galactomannan, procalcitonin in a.m. will order LE dopplers to make sure no DVT has developed if cefotaxime does not improve his fever, wbc then will broaden coverage to include lung infection 01/20 - await paracentesis and a.m. labs vanco added due to GPC in blood cx fevers appear improved 01/21 - MSSA is present in blood and urine cx u/a did not show signs of infection and so the urine may only be seeded from the bacteremia will order repeat u/a at this time d/c vanco/cefotaxime and start zosyn since there is no skin breakdown or ulcers the lung becomes a more likely portal of entry 01/22 - fevers resolved continue with zosyn for bacteremia and possible pneumonia 5) MSSA bacteremia 01/20 - no central line in place, IV sites look ok await ID to see if true infection or a contaminant vanco started, will order repeat blood cx now 01/21 - true infection of blood with MSSA repeat blood cx from 01/20 is NGTD d/c vanco/cefotaxime and start zosyn check u/a 01/22 - MSSA in one set from 01/20 repeat blood cx today pt needs dialysis and likely he is no longer bacteremic so ok for dialysis line but if pt remains bacteremic it will need to be replaced 01/23 - pt to get dialysis line today and likely HD afterwards continue with zosyn 01/24 - repeat blood cx from 01/22 remain NGTD wbc is back to normal anticipate a 4 week course of treatment for this, will eventually change zosyn to ceftriaxone Problems: Consultation Date/Type/Reason Admit Date/Time Jan 07, 2017 at 10:13 Initial Consult Date 01/19/17 Type of Consultation: ID Referring Provider: JENY MORA MD 24 HR Interval Summary Free Text/Dictation family reports he was mostly sleepy yesterday and only drank some fluids He is awake this a.m. and is asking how long he will be on dialysis slight N, no V, no D no change with breathing Exam/Review of Systems Vital Signs Vitals Vital Signs Date Time Temp Pulse Resp B/P Pulse Ox O2 Delivery O2 Flow Rate FiO2 01/24/17 04:50 83 01/24/17 04:00 98.8 17 122/57 94 01/24/17 02:35 6.0 01/23/17 21:05 Nasal Cannula Intake and Output 01/23/17 01/23/17 01/24/17 15:00 23:00 07:00 Intake Total 800 ml 650 ml 170 ml Output Total 3520 ml 1100 ml 1550 ml Balance -2720 ml -450 ml -1380 ml Exam Constitutional: alert Head: normocephalic Eyes: nl sclera Respiratory: clear to auscultation Cardiovascular: regular rate and rhythm Gastrointestinal: distended, non-tender, soft Results Result Diagram: 01/23/17 0625 01/23/1725 Results 24 hrs Laboratory Tests Test 01/23/17 07:55 01/23/17 20:49 01/24/17 02:07 Bedside Glucose 162 244 H 216 Medications Medications Current Medications Atorvastatin Calcium (Lipitor) 20 mg HS PO Last administered on 01/21/17t 20:35 ; Admin Dose 20 MG; Start 6/28/17 at 21:00 Miscellaneous Information 1 ea NOTE XX ; Start 01/07/17 at 17:30 Glucose (Glutose) 15 gm Q15M PRN PO DECREASED GLUCOSE; Start 01/07/17 at 17:30 Glucose (Glutose) 22.5 gm Q15M PRN PO DECREASED GLUCOSE; Start 01/07/17 at 17: 30 Dextrose (D50w Syringe) 25 ml Q15M PRN IV DECREASED GLUCOSE; Start 01/07/17 at 17:30 Dextrose (D50w Syringe) 50 ml Q15M PRN IV DECREASED GLUCOSE; Start 01/07/17 at 17:30 Glucagon (Glucagen) 1 mg Q15M PRN IM DECREASED GLUCOSE; Start 01/07/17 at 17:30 Glucose (Glutose) 15 gm Q15M PRN BUCCAL DECREASED GLUCOSE; Start 01/07/17 at 17 :30 Nifedipine (Procardia Xl) 30 mg DAILY PO Last administered on 01/21/17 08:49; Admin Dose 30 MG; Start 01/08/17 at 09:00 Lactulose (Enulose) 20 gm HS PO Last administered on 01/23/17 21:00; Admin Dose 20 GM; Start 01/07/17 at 21:00 Docusate Sodium (Colace) 100 mg BID PRN PO CONSTIPATION Last administered on 09:10; Admin Dose 100 MG; Start 01/08/17 at 14:00 Acetaminophen (Tylenol Tab) 500 mg Q6H PRN PO PAIN AND OR ELEVATED TEMP Last administered on 01/20/17 09:27; Admin Dose 500 MG; Start 01/08/17 at 15:30 Acetaminophen/ Hydrocodone Bitart ([place] (5/325)) 1 tab Q4H PRN PO PAIN Last administered on 01/24/17 00:28; Admin Dose 1 TAB; Start 01/09/17 at 08:30 Diagnostic Test (Pha) (Accu-Chek) 1 ea 02 XX Last administered on 01/24/17 02: 09; Admin Dose 1 EA; Start 01/15/17 at 02:00 Insulin Aspart 10 unit 10 unit ONCE PRN SC ELEVATED GLUCOSE Last administered on 01/21/17 02:15; Admin Dose 10 UNIT; Start 01/17/17 at 02:00 Sodium Chloride (1/2 NS) 1,000 ml @ 40 mls/hr Q24H IV Last administered on 01/18 21:32; Admin Dose 75 MLS/HR; Start 01/17/17 at 17:00; Status Future Hold Nitroglycerin (Nitroglycerin (Sl Tab) 0.4 Mg) 1 tab Q5M PRN SL ANGINA; Start at 21:30 Epoetin Sean 10471 units 10,000 units MoWeFr@17 SC Last administered on 17:37; Admin Dose 10,000 UNITS; Start 01/19/17 at 17:00 Piperacillin Sod/ Tazobactam Sod (Zosyn 2.25gm/ 50ml (Pmx)) 50 ml @ 100 mls/hr Q6 IVPB Last administered on 01/24/17 05:55; Admin Dose 100 MLS/HR; Start 06/28 at 09:00 Insulin Glargine (Lantus) 25 unit DAILY@20 SC Last administered on 01/23/17 20 :11; Admin Dose 25 UNIT; Start 01/21/17 at 20:00 Lubiprostone (Amitiza) 24 mcg BID PO Last administered on 01/23/17 21:00; Admin Dose 24 MCG; Start 01/21/17 at 21:00 Lactulose (Enulose) 20 gm BID PRN PO CONSTIPATION; Start 01/22/17 at 13:00 DANYEL HART MD Jan 24, 2017 07:02
[2017-01-24 07:36] LABS: CALCIUM 8.3 mg/dl (8.4-10.2); CREATININE 2.85 mg/dl (0.61-1.24)
[2017-01-24] MEDS: INSULIN ASPART [NOVOLOG] 3 ML PEN SC SCH ×4 (08:15→20:57)
[2017-01-24] MEDS: NIFEdipine (XL) 30 MG TAB PO SCH (08:39)
[2017-01-24] MEDS: ALBUTEROL/IPRATROPIUM (NEB) 3 ML AMP HHN SCH ×4 (09:00→21:19)
[2017-01-24] MEDS: LUBIPROSTONE 24 MCG CAP PO SCH ×2 (09:43→20:52)
[2017-01-24] MEDS: DOCUSATE SODIUM 100 MG CAP PO PRN (11:56)
[2017-01-24] MEDS: ACETAMINOPHEN 500 MG TAB PO PRN (11:56)
--- NOTE | 2017-01-24 12:13 | PN ---
Date/Time of Note Date/Time of Note DATE: 01/24/17 TIME: 12:07 Assessment/Plan Lines/Catheters IV Catheter Type (from Nrs): Saline Lock Sykes in Place (from Nrs): Yes Assessment/Plan Chief Complaint/Hosp Course 1. [place] obesity: BMI 48 -encourage weight loss -nutrition optimization -eventual bariatric surgery when medically stable 2. CHF: dyspnea with pulmonary congestion; dyspnea improved -continue diuresis per cards/renal -medical optimization 3. Elevated troponin: renal failure vs NSTEMI; invasive/stress testing not recommended at this time per cards -trend and monitor 4. Chronic kidney disease: cr worsening; on bumex gtt; dialysis yesterday and again today -per renal 5. Diabetes: blood sugar labile; on long acting and short acting insulin -optimize blood sugar control 6. Hypertension: controlled -cont. antihypertensives 7. YEVGENIY: morbid obesity, dyspnea improved -cpap 8. Leukocytosis: on steroids; blood and urine growing staph vs. dvt; no fevers; wbc improved, ascitic fluid (low PMN- not the source per ID) -abx per sensitivity 9. Dyspnea: multifactorial chf+ morbid obesity + ascites + YEVGENIY; improved; s/p dialysis yesterday -supportive -as above 10. Hyponatremia: ?overloaded, CHF, normalized - judicious fluid management -diuretics per renal 11. Anemia: CKD +/- chronic disease; doubt active bleed; h/h stable -monitor -transfuse as needed 12. Hypothyroidism; low tsh/t4 -medical optimization 13. Hypocalcemia: likely 2/2 poor nutrition + hypothyroid -optimize lytes -as above -medical optimization 14. Hypoalbuminemia: liver disease; ?overloaded, improving Patient seen and examined in collaboration with Dr. Marcelino Morales Problems: Subjective 24 Hr Interval Summary Awake, conversant. Tired shortness of breath improved. No c/o pain, cp, palpitations, cough, no fevers, chills, n/v/d, mccallum, sz. permacath placement and dialysis yesterday Exam/Review of Systems Vital Signs Vitals Vital Signs Date Time Temp Pulse Resp B/P Pulse Ox O2 Delivery O2 Flow Rate FiO2 01/24/17 11:01 98.5 72 22 112/58 100 01/24/17 09:05 Nasal Cannula 6.0 Intake and Output 7/01/23/17 01/24/17 15:00 23:00 07:00 Intake Total 800 ml 650 ml 220 ml Output Total 3520 ml 1100 ml 1550 ml Balance -2720 ml -450 ml -1330 ml Exam Free Text/Dictation Constitutional: alert, obese, oriented, more awake, tired Psych: nl mood/affect, no complaints Head: atraumatic, normocephalic Eyes: nl conjunctiva, nl lids ENMT: mucosa pink and moist Neck: non-tender, supple; right IJ Respiratory: diminished breath sounds; no use of accessory muscles Cardiovascular: regular rate and rhythm Gastrointestinal: distended (mod), non-tender, soft Genitourinary - Male: nl penis, nl scrotum, No CVA tenderness; sykes, clear urine output Musculoskeletal: nl extremities to inspection Extremities: edema (ble 4+), normal pulses 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: nl mental status, nl speech Skin: No rash or lesions Results Result Diagram: 01/24/17 0613 01/24/17 0613 ERLINDA VALLE NP Jan 24, 2017 12:12
--- NOTE | 2017-01-24 12:45 | CONS ---
Date/Time of Note Date/Time of Note DATE: 01/24/17 TIME: 12:44 Consult Date/Type/Reason Admit Date/Time Jan 07, 2017 at 10:13 Initial Consult Date 01/09/17 Type of Consultation: Pulmonary Ordering Provider: JENY MORA MD Subjective Appears comfortable following hemodialysis yesterday. Objective Vital Signs Date Time Temp Pulse Resp B/P Pulse Ox O2 Delivery O2 Flow Rate FiO2 01/24/17 12:23 79 01/24/17 11:01 98.5 22 112/58 100 01/24/17 09:05 Nasal Cannula 6.0 Intake and Output 01/23/17 01/23/17 01/24/17 15:00 23:00 07:00 Intake Total 800 ml 650 ml 220 ml Output Total 3520 ml 1100 ml 1550 ml Balance -2720 ml -450 ml -1330 ml Exam GENERAL: Morbidly obese gentleman comfortable at rest no acute distress VITAL SIGNS: per chart NECK: Supple. No JVD or lymphadenopathy. CARDIAC EXAM: S1, S2. No added sounds or murmurs. CHEST: clear bilaterally, No added sounds, rales or wheezes ABDOMEN: Soft, nontender. No guarding or rebound. EXTREMITIES: No cyanosis, clubbing or edema. NEUROLOGIC: Generalized weakness. No focal deficits. Results/Medications Result Diagram: 01/24/1761201/24/17612 Results 24 hrs Laboratory Tests Test 01/23/17 20:49 01/24/17 02:07 01/24/17 06:11 01/24/17 06:13 Bedside Glucose 244 H 216 C-Reactive Protein 5.0 H Complement C3 87 L Complement C4 31 White Blood Count 9.9 # Red Blood Count 3.15 L Hemoglobin 8.0 L Hematocrit 26.7 L Mean Corpuscular Volume 84.8 Mean Corpuscular Hemoglobin 25.4 L Mean Corpuscular Hemoglobin Concent 30.0 L Red Cell Distribution Width 16.8 H Platelet Count 78 L Mean Platelet Volume Neutrophils % 79.4 H Lymphocytes % 9.0 L Monocytes % 8.0 Eosinophils % 2.1 Basophils % 0.1 Nucleated Red Blood Cells % 0.0 Neutrophils # 7.9 H Lymphocytes # 0.9 Monocytes # 0.8 Eosinophils # 0.2 Basophils # 0.0 Nucleated Red Blood Cells # 0.0 Erythrocyte Sedimentation Rate 84 H Sodium Level 148 H Potassium Level 4.0 Chloride Level 104 Carbon Dioxide Level 32 H Anion Gap 16 Blood Urea Nitrogen 79 #H Creatinine 2.85 H Glucose Level 167 Calcium Level 8.3 L Test 01/24/17 08:11 01/24/17 11:53 Bedside Glucose 161 172 Medications Current Medications Atorvastatin Calcium (Lipitor) 20 mg HS PO Last administered on 01/21/17 20:35 ; Admin Dose 20 MG; Start 01/07/17 at 21:00 Miscellaneous Information 1 ea NOTE XX ; Start 01/07/17 at 17:30 Glucose (Glutose) 15 gm Q15M PRN PO DECREASED GLUCOSE; Start 01/07/17 at 17:30 Glucose (Glutose) 22.5 gm Q15M PRN PO DECREASED GLUCOSE; Start 01/07/17 at 17: 30 Dextrose (D50w Syringe) 25 ml Q15M PRN IV DECREASED GLUCOSE; Start 01/07/17 at 17:30 Dextrose (D50w Syringe) 50 ml Q15M PRN IV DECREASED GLUCOSE; Start 01/07/17 at 17:30 Glucagon (Glucagen) 1 mg Q15M PRN IM DECREASED GLUCOSE; Start 01/07/17 at 17:30 Glucose (Glutose) 15 gm Q15M PRN BUCCAL DECREASED GLUCOSE; Start 01/07/17 at 17 :30 Nifedipine (Procardia Xl) 30 mg DAILY PO Last administered on 01/21/17 08:49; Admin Dose 30 MG; Start 01/08/17 at 09:00 Lactulose (Enulose) 20 gm HS PO Last administered on 01/23/17 21:00; Admin Dose 20 GM; Start 01/07/17 at 21:00 Docusate Sodium (Colace) 100 mg BID PRN PO CONSTIPATION Last administered on 11:56; Admin Dose 100 MG; Start 01/08/17 at 14:00 Acetaminophen (Tylenol Tab) 500 mg Q6H PRN PO PAIN AND OR ELEVATED TEMP Last administered on 01/24/17 11:56; Admin Dose 500 MG; Start 01/08/17 at 15:30 Acetaminophen/ Hydrocodone Bitart ([place] (5/325)) 1 tab Q4H PRN PO PAIN Last administered on 01/24/17 00:28; Admin Dose 1 TAB; Start 01/09/17 at 08:30 Diagnostic Test (Pha) (Accu-Chek) 1 ea 02 XX Last administered on 01/24/17 02: 09; Admin Dose 1 EA; Start 01/15/17 at 02:00 Insulin Aspart 10 unit 10 unit ONCE PRN SC ELEVATED GLUCOSE Last administered on 01/21/17 02:15; Admin Dose 10 UNIT; Start 01/17/17 at 02:00 Sodium Chloride (1/2 NS) 1,000 ml @ 40 mls/hr Q24H IV Last administered on 01/18 21:32; Admin Dose 75 MLS/HR; Start 01/17/17 at 17:00; Status Future Hold Nitroglycerin (Nitroglycerin (Sl Tab) 0.4 Mg) 1 tab Q5M PRN SL ANGINA; Start at 21:30 Epoetin Sean 40620 units 10,000 units MoWeFr@17 SC Last administered on 17:37; Admin Dose 10,000 UNITS; Start 01/19/17 at 17:00 Piperacillin Sod/ Tazobactam Sod (Zosyn 2.25gm/ 50ml (Pmx)) 50 ml @ 100 mls/hr Q6 IVPB Last administered on 01/24/17 11:57; Admin Dose 100 MLS/HR; Start 06/28 at 09:00 Insulin Glargine (Lantus) 25 unit DAILY@20 SC Last administered on 01/23/17 20 :11; Admin Dose 25 UNIT; Start 01/21/17 at 20:00 Lubiprostone (Amitiza) 24 mcg BID PO Last administered on 01/24/17 09:43; Admin Dose 24 MCG; Start 01/21/17 at 21:00 Lactulose (Enulose) 20 gm BID PRN PO CONSTIPATION; Start 01/22/17 at 13:00 Assessment/Plan Chief Complaint/Hosp Course IMP: 1. Dyspnea--likely multifactorial, component of obesity pulmonary edema cirrhosis obstructive sleep apnea. 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 YEVGENIY 4. CKD RECS: 1. BD's 2. Stop steroids 3. Fluid restriction 4. Encourage out of bed 5. Hemodialysis per nephrology Problems: GUERITA RESENDIZ MD, [facility] Jan 24, 2017 12:45
--- NOTE | 2017-01-24 12:46 | CONS ---
Date/Time of Note Date/Time of Note DATE: 01/24/17 TIME: 12:44 Assessment/Plan Assessment/Plan Chief Complaint/Hosp Course 61-year-old male admitted for shortness of breath. Patient is a history of hepatitis C cirrhosis of liver, morbid obesity obstructive sleep apnea, diabetes mellitus and hypertension. Recent was brought to the emergency room for abdominal distention and shortness of breath. He was slightly nauseous. No GI bleeding no chest pain no or RANGE MASTER problem no fever no chills. Problems: Additional Assessment/Plan Additional Assessment/Plan 1. Shortness of breath multifactorial 2. Morbid obesity 3. Cirrhosis of liver with portal hypertension 4. Mild ascites 5. Diabetes 6. Hypertension 7. Renal failure 8. Anasarca 9. Bacteremia staph positive in the blood culture 10. No evidence of spontaneous bacterial peritonitis 11. Severe constipation 12. Profound weakness Plan P.o. fluid restriction 1000 cc a day Low-sodium diet Monitor BUN and creatinine closely Weight loss Supplemental oxygen Dietary consult, reduce calorie intake to 1000-calorie a day Renal consult Spot urine for sodium Discussed with the patient and the family Continue antibiotic Diuretic as per surgical endoscopist. Amitiza Continue with the dialysis and remove fluid as tolerated by the patient Dulcolax tablet p.o. Discussed with the son [id number] Consultation Date/Type/Reason Admit Date/Time Jan 07, 2017 at 10:13 Initial Consult Date 01/09/17 Type of Consultation: ID Referring Provider: JENY MORA MD 24 HR Interval Summary Free Text/Dictation Patient less short of breath but feels profoundly weak after dialysis Exam/Review of Systems Vital Signs Vitals Vital Signs Date Time Temp Pulse Resp B/P Pulse Ox O2 Delivery O2 Flow Rate FiO2 01/24/17 12:23 79 01/24/17 11:01 98.5 22 112/58 100 01/24/17 09:05 Nasal Cannula 6.0 Intake and Output 01/23/17 01/23/17 01/24/17 15:00 23:00 07:00 Intake Total 800 ml 650 ml 220 ml Output Total 3520 ml 1100 ml 1550 ml Balance -2720 ml -450 ml -1330 ml Exam Constitutional: alert, oriented, well developed Psych: nl mood/affect, no complaints Head: atraumatic, normocephalic Eyes: EOMI, PERRL, nl conjunctiva, nl lids, nl sclera ENMT: nl external ears & nose, nl lips & teeth, nl nasal mucosa & septum Neck: non-tender, supple Respiratory: clear to auscultation, normal air movement Cardiovascular: nl pulses, regular rate and rhythm Gastrointestinal: nl liver, spleen, non-tender, soft Musculoskeletal: nl extremities to inspection, nl gait and stance Extremities: normal pulses 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: RANGE MASTER II-XII intact, nl mental status, nl speech, nl strength Skin: nl turgor, No rash or lesions Lymph: nl lymph nodes Results Result Diagram: 01/24/1713 01/24/17612 Results 24 hrs Laboratory Tests Test 01/23/17 20:49 01/24/17 02:07 01/24/17 06:11 01/24/17 06:13 Bedside Glucose 244 H 216 C-Reactive Protein 5.0 H Complement C3 87 L Complement C4 31 White Blood Count 9.9 # Red Blood Count 3.15 L Hemoglobin 8.0 L Hematocrit 26.7 L Mean Corpuscular Volume 84.8 Mean Corpuscular Hemoglobin 25.4 L Mean Corpuscular Hemoglobin Concent 30.0 L Red Cell Distribution Width 16.8 H Platelet Count 78 L Mean Platelet Volume Neutrophils % 79.4 H Lymphocytes % 9.0 L Monocytes % 8.0 Eosinophils % 2.1 Basophils % 0.1 Nucleated Red Blood Cells % 0.0 Neutrophils # 7.9 H Lymphocytes # 0.9 Monocytes # 0.8 Eosinophils # 0.2 Basophils # 0.0 Nucleated Red Blood Cells # 0.0 Erythrocyte Sedimentation Rate 84 H Sodium Level 148 H Potassium Level 4.0 Chloride Level 104 Carbon Dioxide Level 32 H Anion Gap 16 Blood Urea Nitrogen 79 #H Creatinine 2.85 H Glucose Level 167 Calcium Level 8.3 L Test 01/24/17 08:11 01/24/17 11:53 Bedside Glucose 161 172 Medications Medications Current Medications Atorvastatin Calcium (Lipitor) 20 mg HS PO Last administered on 01/21/17t 20:35 ; Admin Dose 20 MG; Start 01/07/17 at 21:00 Miscellaneous Information 1 ea NOTE XX ; Start 01/07/17 at 17:30 Glucose (Glutose) 15 gm Q15M PRN PO DECREASED GLUCOSE; Start 01/07/17 at 17:30 Glucose (Glutose) 22.5 gm Q15M PRN PO DECREASED GLUCOSE; Start 01/07/17 at 17: 30 Dextrose (D50w Syringe) 25 ml Q15M PRN IV DECREASED GLUCOSE; Start 01/07/17 at 17:30 Dextrose (D50w Syringe) 50 ml Q15M PRN IV DECREASED GLUCOSE; Start 01/07/17 at 17:30 Glucagon (Glucagen) 1 mg Q15M PRN IM DECREASED GLUCOSE; Start 01/07/17 at 17:30 Glucose (Glutose) 15 gm Q15M PRN BUCCAL DECREASED GLUCOSE; Start 01/07/17 at 17 :30 Nifedipine (Procardia Xl) 30 mg DAILY PO Last administered on 01/21/17 08:49; Admin Dose 30 MG; Start 01/08/17 at 09:00 Lactulose (Enulose) 20 gm HS PO Last administered on 01/23/17 21:00; Admin Dose 20 GM; Start 01/07/17 at 21:00 Docusate Sodium (Colace) 100 mg BID PRN PO CONSTIPATION Last administered on 11:56; Admin Dose 100 MG; Start 01/08/17 at 14:00 Acetaminophen (Tylenol Tab) 500 mg Q6H PRN PO PAIN AND OR ELEVATED TEMP Last administered on 01/24/17 11:56; Admin Dose 500 MG; Start 01/08/17 at 15:30 Acetaminophen/ Hydrocodone Bitart ([place] (5/325)) 1 tab Q4H PRN PO PAIN Last administered on 01/24/17 00:28; Admin Dose 1 TAB; Start 01/09/17 at 08:30 Diagnostic Test (Pha) (Accu-Chek) 1 ea 02 XX Last administered on 01/24/17 02: 09; Admin Dose 1 EA; Start 01/15/17 at 02:00 Insulin Aspart 10 unit 10 unit ONCE PRN SC ELEVATED GLUCOSE Last administered on 01/21/17 02:15; Admin Dose 10 UNIT; Start 01/17/17 at 02:00 Sodium Chloride (1/2 NS) 1,000 ml @ 40 mls/hr Q24H IV Last administered on 01/18 21:32; Admin Dose 75 MLS/HR; Start 01/17/17 at 17:00; Status Future Hold Nitroglycerin (Nitroglycerin (Sl Tab) 0.4 Mg) 1 tab Q5M PRN SL ANGINA; Start at 21:30 Epoetin Sean 80592 units 10,000 units MoWeFr@17 SC Last administered on 17:37; Admin Dose 10,000 UNITS; Start 01/19/17 at 17:00 Piperacillin Sod/ Tazobactam Sod (Zosyn 2.25gm/ 50ml (Pmx)) 50 ml @ 100 mls/hr Q6 IVPB Last administered on 01/24/17 11:57; Admin Dose 100 MLS/HR; Start 06/28 at 09:00 Insulin Glargine (Lantus) 25 unit DAILY@20 SC Last administered on 01/23/17 20 :11; Admin Dose 25 UNIT; Start 01/21/17 at 20:00 Lubiprostone (Amitiza) 24 mcg BID PO Last administered on 01/24/17 09:43; Admin Dose 24 MCG; Start 01/21/17 at 21:00 Lactulose (Enulose) 20 gm BID PRN PO CONSTIPATION; Start 01/22/17 at 13:00 STUART STANLEY MD Jan 24, 2017 12:46
[2017-01-24] MEDS ORDERED: BISACODYL (EC) 5 MG TAB PO ONE ×2 (13:00→13:30)
[2017-01-24] MEDS: ONDANSETRON 4 MG INJ IV PRN (13:36)
--- NOTE | 2017-01-24 14:56 | CONS ---
Date/Time of Note Date/Time of Note DATE: 01/24/17 TIME: 14:53 Assessment/Plan Assessment/Plan Additional Assessment/Plan 1. Shortness of breath multifactorial: better post hd x 2. cont to monitor 2. Morbid obesity 3. Cirrhosis of liver with portal hypertension/ known hep c 4. Mild ascites 5. Diabetes: on meds 6. Hypertension: controlled 7. esrd: started hd x 2, next hd on thursday/ am labs 8. Anasarca: improving with hd 9. Bacteremia staph positive in the blood culture: on abx 10- severe anemia: cont epogen with hd. consider prbc f hb drops further dw family Consultation Date/Type/Reason Admit Date/Time Jan 07, 2017 at 10:13 Initial Consult Date 01/19/17 Type of Consultation: Pulmonary Referring Provider: JENY MORA MD 24 HR Interval Summary Free Text/Dictation better. still with nausea and poor apetite . sob improving. cont to have weakness Exam/Review of Systems Vital Signs Vitals Vital Signs Date Time Temp Pulse Resp B/P Pulse Ox O2 Delivery O2 Flow Rate FiO2 01/24/17 13:10 82 22 95 Nasal Cannula 3.0 01/24/17 11:01 98.5 112/58 Intake and Output 01/23/17 01/23/17 01/24/17 15:00 23:00 07:00 Intake Total 800 ml 650 ml 220 ml Output Total 3520 ml 1100 ml 1550 ml Balance -2720 ml -450 ml -1330 ml Exam Constitutional: alert, oriented, well developed Head: normocephalic Eyes: nl conjunctiva Neck: non-tender, supple Respiratory: clear to auscultation, diminished breath sounds Cardiovascular: edema (1-2+), regular rate and rhythm Gastrointestinal: soft Results Result Diagram: 01/24/17 0613 01/24/17 0613 Results 24 hrs Laboratory Tests Test 01/23/17 20:49 01/24/17 02:07 01/24/17 06:11 01/24/17 06:13 Bedside Glucose 244 H 216 C-Reactive Protein 5.0 H Complement C3 87 L Complement C4 31 White Blood Count 9.9 # Red Blood Count 3.15 L Hemoglobin 8.0 L Hematocrit 26.7 L Mean Corpuscular Volume 84.8 Mean Corpuscular Hemoglobin 25.4 L Mean Corpuscular Hemoglobin Concent 30.0 L Red Cell Distribution Width 16.8 H Platelet Count 78 L Mean Platelet Volume Neutrophils % 79.4 H Lymphocytes % 9.0 L Monocytes % 8.0 Eosinophils % 2.1 Basophils % 0.1 Nucleated Red Blood Cells % 0.0 Neutrophils # 7.9 H Lymphocytes # 0.9 Monocytes # 0.8 Eosinophils # 0.2 Basophils # 0.0 Nucleated Red Blood Cells # 0.0 Erythrocyte Sedimentation Rate 84 H Sodium Level 148 H Potassium Level 4.0 Chloride Level 104 Carbon Dioxide Level 32 H Anion Gap 16 Blood Urea Nitrogen 79 #H Creatinine 2.85 H Glucose Level 167 Calcium Level 8.3 L Test 01/24/17 08:11 01/24/17 11:53 Bedside Glucose 161 172 Medications Medications Current Medications Atorvastatin Calcium (Lipitor) 20 mg HS PO Last administered on 01/21/17 20:35 ; Admin Dose 20 MG; Start 01/07/17 at 21:00 Miscellaneous Information 1 ea NOTE XX ; Start 01/07/17 at 17:30 Glucose (Glutose) 15 gm Q15M PRN PO DECREASED GLUCOSE; Start 01/07/17 at 17:30 Glucose (Glutose) 22.5 gm Q15M PRN PO DECREASED GLUCOSE; Start 01/07/17 at 17: 30 Dextrose (D50w Syringe) 25 ml Q15M PRN IV DECREASED GLUCOSE; Start 01/07/17 at 17:30 Dextrose (D50w Syringe) 50 ml Q15M PRN IV DECREASED GLUCOSE; Start 01/07/17 at 17:30 Glucagon (Glucagen) 1 mg Q15M PRN IM DECREASED GLUCOSE; Start 01/07/17 at 17:30 Glucose (Glutose) 15 gm Q15M PRN BUCCAL DECREASED GLUCOSE; Start 01/07/17 at 17 :30 Nifedipine (Procardia Xl) 30 mg DAILY PO Last administered on 01/21/17 08:49; Admin Dose 30 MG; Start 01/08/17 at 09:00 Lactulose (Enulose) 20 gm HS PO Last administered on 01/23/17 21:00; Admin Dose 20 GM; Start 01/07/17 at 21:00 Docusate Sodium (Colace) 100 mg BID PRN PO CONSTIPATION Last administered on 11:56; Admin Dose 100 MG; Start 01/08/17 at 14:00 Acetaminophen (Tylenol Tab) 500 mg Q6H PRN PO PAIN AND OR ELEVATED TEMP Last administered on 01/24/17 11:56; Admin Dose 500 MG; Start 01/08/17 at 15:30 Acetaminophen/ Hydrocodone Bitart ([place] (5/325)) 1 tab Q4H PRN PO PAIN Last administered on 01/24/17 00:28; Admin Dose 1 TAB; Start 01/09/17 at 08:30 Diagnostic Test (Pha) (Accu-Chek) 1 ea 02 XX Last administered on 01/24/17 02: 09; Admin Dose 1 EA; Start 01/15/17 at 02:00 Insulin Aspart 10 unit 10 unit ONCE PRN SC ELEVATED GLUCOSE Last administered on 01/21/17 02:15; Admin Dose 10 UNIT; Start 01/17/17 at 02:00 Sodium Chloride (1/2 NS) 1,000 ml @ 40 mls/hr Q24H IV Last administered on 01/18 21:32; Admin Dose 75 MLS/HR; Start 01/17/17 at 17:00; Status Future Hold Nitroglycerin (Nitroglycerin (Sl Tab) 0.4 Mg) 1 tab Q5M PRN SL ANGINA; Start at 21:30 Epoetin Sean 38217 units 10,000 units MoWeFr@17 SC Last administered on 17:37; Admin Dose 10,000 UNITS; Start 01/19/17 at 17:00 Piperacillin Sod/ Tazobactam Sod (Zosyn 2.25gm/ 50ml (Pmx)) 50 ml @ 100 mls/hr Q6 IVPB Last administered on 01/24/17 11:57; Admin Dose 100 MLS/HR; Start 06/28 at 09:00 Insulin Glargine (Lantus) 25 unit DAILY@20 SC Last administered on 01/23/17 20 :11; Admin Dose 25 UNIT; Start 01/21/17 at 20:00 Lubiprostone (Amitiza) 24 mcg BID PO Last administered on 01/24/17 09:43; Admin Dose 24 MCG; Start 01/21/17 at 21:00 Lactulose (Enulose) 20 gm BID PRN PO CONSTIPATION; Start 01/22/17 at 13:00 Ondansetron HCl (Zofran Inj) 4 mg Q4H PRN IV NAUSEA AND/OR VOMITING Last administered on 01/24/17t 13:36; Admin Dose 4 MG; Start 01/24/17 at 13:30 BRIAN PARKER MD Jan 24, 2017 14:56
[2017-01-24] MEDS: INSULIN GLARGINE [LANtus] 3 ML PEN SC SCH (20:22)
[2017-01-24] MEDS: LACTULOSE 30ML CUP PO SCH (20:52)
[2017-01-24] MEDS: ATORVASTATIN 20 MG TAB PO SCH (20:52)
[2017-01-25] VITALS (13 sets, daily range): BP systolic 111–141; BP diastolic 56–72; PULSE 82–90; RESP 17–18
[2017-01-25] MEDS: ACCU-CHEK XX SCH (02:59)
[2017-01-25] MEDS: PIPER-TAZO 2.25 GM (PMX) 50 ML IVPB SCH ×3 (05:47→17:22)
[2017-01-25 07:24] LABS: ADD SCAN DIFF NO
[2017-01-25 07:28] LABS: ABNORMAL IP MESSAGE 1; BASOPHILS % 0.1 % (0.0-2.0); EOSINOPHILS # 0.3 10^3/ul (0.0-0.5); EOSINOPHILS % 2.5 % (0.0-7.0); HEMATOCRIT 28.6 % (42.0-52.0); HEMOGLOBIN 8.1 g/dl (14.0-18.0); LYMPHOCYTES # 1.3 10^3/ul (0.8-2.9); LYMPHOCYTES % 10.5 % (15.0-51.0); MEAN CORPUSCULAR HEMOGLOBIN 25.1 pg (29.0-33.0); MEAN CORPUSCULAR HGB CONC 28.3 g/dl (32.0-37.0); MEAN CORPUSCULAR VOLUME 88.5 fl (82.0-101.0); MEAN PLATELET VOLUME 12.3 fl (7.4-10.4); MONOCYTE # 0.8 10^3/ul (0.3-0.9); MONOCYTES % 6.5 % (0.0-11.0); NEUTROPHIL # 9.5 10^3/ul (1.6-7.5); NEUTROPHILS % 78.4 % (39.0-77.0); NUCLEATED RED BLOOD CELLS% 0.2 /100WBC (0.0-0.0); RED BLOOD COUNT 3.23 10^6/ul (4.70-6.10); RED CELL DISTRIBUTION WIDTH 17.2 % (11.5-14.5); WHITE BLOOD COUNT 12.1 10^3/ul (4.8-10.8)
[2017-01-25 07:38] LABS: PLATELET COUNT 82 10^3/UL (140-415)
[2017-01-25 07:41] LABS: IRON 28 ug/dl (35-150)
[2017-01-25 07:51] LABS: ALBUMIN 2.9 g/dl (3.3-4.9); ALBUMIN/GLOBULIN RATIO 0.78; BILIRUBIN,INDIRECT 0.6 mg/dl (0-1.1); BILIRUBIN,TOTAL 0.6 mg/dl (0.2-1.3); CALCIUM 8.4 mg/dl (8.4-10.2); CREATININE 2.86 mg/dl (0.61-1.24); PHOSPHORUS 5.1 mg/dl (2.5-4.9); POTASSIUM 4.1 mmol/L (3.5-5.1); TOTAL IRON BINDING CAPACITY 251 ug/dl (241-421); TOTAL PROTEIN 6.6 g/dl (6.1-8.1)
[2017-01-25] MEDS: INSULIN ASPART [NOVOLOG] 3 ML PEN SC SCH ×4 (07:55→21:00)
[2017-01-25] MEDS: ALBUTEROL/IPRATROPIUM (NEB) 3 ML AMP HHN SCH ×4 (10:00→20:42)
[2017-01-25] MEDS: NIFEdipine (XL) 30 MG TAB PO SCH (10:09)
[2017-01-25] MEDS: LUBIPROSTONE 24 MCG CAP PO SCH ×2 (10:09→20:53)
--- NOTE | 2017-01-25 10:29 | PN ---
Date/Time of Note Date/Time of Note DATE: 01/25/17 TIME: 10:19 Assessment/Plan Lines/Catheters IV Catheter Type (from Nrs): Permcath Sykes in Place (from Nrsg): Yes Assessment/Plan Chief Complaint/Hosp Course 1. [place] obesity: BMI 48 -encourage weight loss -nutrition optimization -eventual bariatric surgery when medically stable 2. CHF: dyspnea with pulmonary congestion; dyspnea much improved -continue diuresis per cards/renal -medical optimization -HD 3. Elevated troponin: renal failure vs NSTEMI; invasive/stress testing not recommended at this time per cards -trend and monitor 4. Chronic kidney disease: cr worsening; on bumex gtt; HD -per renal 5. Diabetes: blood sugar labile; on long acting and short acting insulin -optimize blood sugar control 6. Hypertension: controlled -cont. antihypertensives 7. YEVGENIY: morbid obesity, dyspnea improved after HD -cpap 8. Leukocytosis: on steroids; blood and urine growing staph vs. dvt; no fevers; wbc increasing, ascitic fluid (low PMN- not the source per ID) -abx per sensitivity 9. Dyspnea: multifactorial chf+ morbid obesity + ascites + YEVGENIY; improved; s/p dialysis yesterday -supportive -as above 10. Hyponatremia now with hypernatremia: s/p dialysis - judicious fluid management 11. Anemia: CKD +/- chronic disease; doubt active bleed; h/h stable -monitor -transfuse as needed 12. Hypothyroidism; low tsh/t4 -medical optimization 13. Hypocalcemia: likely 2/2 poor nutrition + hypothyroid -optimize lytes -as above -medical optimization 14. Hypoalbuminemia: liver disease +/- malnutrition, worsened -replete -nutrition optimization Patient seen and examined in collaboration with Dr. Marcelino Morales Problems: Subjective 24 Hr Interval Summary Sleepy. Shortness of breath improved. No c/o pain, cp, palpitations, cough, no fevers, chills, n/v/d, mccallum, sz. Tolerated dialysis yesterday Exam/Review of Systems Vital Signs Vitals Vital Signs Date Time Temp Pulse Resp B/P Pulse Ox O2 Delivery O2 Flow Rate FiO2 01/25/17 08:25 85 01/25/17 07:49 98.4 17 138/72 97 01/25/17 00:39 6.0 01/24/17 20:00 Nasal Cannula Intake and Output 01/24/17 01/24/17 01/25/17 14:59 22:59 06:59 Intake Total 550 ml 600 ml 150 ml Output Total 3500 ml 500 ml 800 ml Balance -2950 ml 100 ml -650 ml Exam Free Text/Dictation Constitutional: alert, obese, oriented,somnolent Psych: nl mood/affect, no complaints Head: atraumatic, normocephalic Eyes: nl conjunctiva, nl lids ENMT: mucosa pink and moist Neck: non-tender, supple; right IJ Respiratory: diminished breath sounds; no use of accessory muscles Cardiovascular: regular rate and rhythm Gastrointestinal: distended (mod), non-tender, soft Genitourinary - Male: nl penis, nl scrotum, No CVA tenderness; sykes, clear urine output Musculoskeletal: nl extremities to inspection Extremities: edema (ble 3+), normal pulses 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: nl mental status, nl speech Skin: No rash or lesions Results Result Diagram: 01/25/17 0554 01/25/17 0554 ERLINDA VALLE NP Jan 25, 2017 10:29
[2017-01-25] MEDS ORDERED: LACTULOSE 30ML CUP PO ONE (10:30)
[2017-01-25] MEDS: ACETAMINOPHEN 500 MG TAB PO PRN (11:09)
[2017-01-25] MEDS: ONDANSETRON 4 MG INJ IV PRN (11:20)
--- NOTE | 2017-01-25 11:39 | CONS ---
Date/Time of Note Date/Time of Note DATE: 01/25/17 TIME: 11:39 Consult Date/Type/Reason Admit Date/Time Jan 07, 2017 at 10:13 Initial Consult Date 01/09/17 Type of Consultation: Pulmonary Ordering Provider: JENY MORA MD Subjective Comfortable this morning less abdominal pain. Objective Vital Signs Date Time Temp Pulse Resp B/P Pulse Ox O2 Delivery O2 Flow Rate FiO2 01/25/17 10:00 90 22 95 Nasal Cannula 6.0 01/25/17 07:49 98.4 138/72 Intake and Output 01/24/17 01/24/17 01/25/17 15:00 23:00 07:00 Intake Total 550 ml 600 ml 150 ml Output Total 3500 ml 500 ml 800 ml Balance -2950 ml 100 ml -650 ml Exam GENERAL: Morbidly obese gentleman comfortable at rest no acute distress VITAL SIGNS: per chart NECK: Supple. No JVD or lymphadenopathy. CARDIAC EXAM: S1, S2. No added sounds or murmurs. CHEST: clear bilaterally, No added sounds, rales or wheezes ABDOMEN: Soft, nontender. No guarding or rebound. EXTREMITIES: No cyanosis, clubbing or edema. NEUROLOGIC: Generalized weakness. No focal deficits. Results/Medications Result Diagram: 01/25/17 0554 01/25/17 0554 Results 24 hrs Laboratory Tests Test 01/24/17 11:53 01/24/17 17:40 01/24/17 20:49 01/25/17 02:54 Bedside Glucose 172 204 233 H 178 Test 01/25/17 05:54 01/25/17 08:14 01/25/17 11:23 White Blood Count 12.1 #H Red Blood Count 3.23 L Hemoglobin 8.1 L Hematocrit 28.6 L Mean Corpuscular Volume 88.5 Mean Corpuscular Hemoglobin 25.1 L Mean Corpuscular Hemoglobin Concent 28.3 L Red Cell Distribution Width 17.2 H Platelet Count 82 L Mean Platelet Volume 12.3 H Neutrophils % 78.4 H Lymphocytes % 10.5 L Monocytes % 6.5 Eosinophils % 2.5 Basophils % 0.1 Nucleated Red Blood Cells % 0.2 H Neutrophils # 9.5 H Lymphocytes # 1.3 Monocytes # 0.8 Eosinophils # 0.3 Basophils # 0.0 Nucleated Red Blood Cells # 0.0 Sodium Level 151 H Potassium Level 4.1 Chloride Level 105 Carbon Dioxide Level 33 H Anion Gap 17 H Blood Urea Nitrogen 55 H Creatinine 2.86 H Glucose Level 127 # Calcium Level 8.4 Phosphorus Level 5.1 H Iron Level 28 L Total Iron Binding Capacity 251 Percent Iron Saturation 11 L Ferritin 33.0 Total Bilirubin 0.6 Direct Bilirubin 0.00 Indirect Bilirubin 0.6 Aspartate Amino Transf (AST/SGOT) 39 Alanine Aminotransferase (ALT/SGPT) 45 Alkaline Phosphatase 100 Ammonia 91 #H Total Protein 6.6 Albumin 2.9 L Globulin 3.70 H Albumin/Globulin Ratio 0.78 Bedside Glucose 127 132 Medications Current Medications Atorvastatin Calcium (Lipitor) 20 mg HS PO Last administered on 01/21/17 20:35 ; Admin Dose 20 MG; Start 01/07/17 at 21:00 Miscellaneous Information 1 ea NOTE XX ; Start 01/07/17 at 17:30 Glucose (Glutose) 15 gm Q15M PRN PO DECREASED GLUCOSE; Start 01/07/17 at 17:30 Glucose (Glutose) 22.5 gm Q15M PRN PO DECREASED GLUCOSE; Start 01/07/17 at 17: 30 Dextrose (D50w Syringe) 25 ml Q15M PRN IV DECREASED GLUCOSE; Start 01/07/17 at 17:30 Dextrose (D50w Syringe) 50 ml Q15M PRN IV DECREASED GLUCOSE; Start 01/07/17 at 17:30 Glucagon (Glucagen) 1 mg Q15M PRN IM DECREASED GLUCOSE; Start 01/07/17 at 17:30 Glucose (Glutose) 15 gm Q15M PRN BUCCAL DECREASED GLUCOSE; Start 01/07/17 at 17 :30 Nifedipine (Procardia Xl) 30 mg DAILY PO Last administered on 01/25/17 10:09; Admin Dose 30 MG; Start 01/08/17 at 09:00 Docusate Sodium (Colace) 100 mg BID PRN PO CONSTIPATION Last administered on 11:56; Admin Dose 100 MG; Start 01/08/17 at 14:00 Acetaminophen (Tylenol Tab) 500 mg Q6H PRN PO PAIN AND OR ELEVATED TEMP Last administered on 01/25/17 11:09; Admin Dose 500 MG; Start 01/08/17 at 15:30 Acetaminophen/ Hydrocodone Bitart ([place] (5/325)) 1 tab Q4H PRN PO PAIN Last administered on 01/24/17 23:45; Admin Dose 1 TAB; Start 01/09/17 at 08:30 Diagnostic Test (Pha) (Accu-Chek) 1 ea 02 XX Last administered on 01/25/17 02: 59; Admin Dose 1 EA; Start 01/15/17 at 02:00 Insulin Aspart 10 unit 10 unit ONCE PRN SC ELEVATED GLUCOSE Last administered on 01/21/17 02:15; Admin Dose 10 UNIT; Start 01/17/17 at 02:00 Sodium Chloride (1/2 NS) 1,000 ml @ 40 mls/hr Q24H IV Last administered on 01/18 21:32; Admin Dose 75 MLS/HR; Start 01/17/17 at 17:00; Status Future Hold Nitroglycerin (Nitroglycerin (Sl Tab) 0.4 Mg) 1 tab Q5M PRN SL ANGINA; Start at 21:30 Epoetin Sean 89063 units 10,000 units MoWeFr@17 SC Last administered on 17:37; Admin Dose 10,000 UNITS; Start 01/19/17 at 17:00 Piperacillin Sod/ Tazobactam Sod (Zosyn 2.25gm/ 50ml (Pmx)) 50 ml @ 100 mls/hr Q6 IVPB Last administered on 01/25/17 11:21; Admin Dose 100 MLS/HR; Start 06/28 at 09:00 Insulin Glargine (Lantus) 25 unit DAILY@20 SC Last administered on 01/24/17 20 :22; Admin Dose 25 UNIT; Start 01/21/17 at 20:00 Lubiprostone (Amitiza) 24 mcg BID PO Last administered on 01/25/17 10:09; Admin Dose 24 MCG; Start 01/21/17 at 21:00 Lactulose (Enulose) 20 gm BID PRN PO CONSTIPATION; Start 01/22/17 at 13:00 Ondansetron HCl (Zofran Inj) 4 mg Q4H PRN IV NAUSEA AND/OR VOMITING Last administered on 01/25/17 11:20; Admin Dose 4 MG; Start 01/24/17 at 13:30 Lactulose (Enulose) 20 gm BID PO ; Start 01/25/17 at 21:00 Assessment/Plan Chief Complaint/Hosp Course IMP: 1. Dyspnea--likely multifactorial, component of obesity pulmonary edema cirrhosis obstructive sleep apnea. 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 YEVGENIY 4. CKD RECS: 1. BD's 2. Stop steroids 3. Fluid restriction 4. Encourage out of bed 5. Hemodialysis per nephrology Problems: GUERITA RESENDIZ MD, [facility] Jan 25, 2017 11:39
[2017-01-25] MEDS ORDERED: NA PHOSPHATE/BIPHOS 133 ML ENEMA PR ONE (12:00)
[2017-01-25 12:26] LABS: AADO2 Arterial 128.1 mmHg (7.0-24.0); Allen Test ACCEPTAB; Arterial Base Excess 3.5 mmol/L (-3.0-3); Arterial COHb 0.3 % (0.0-3.0); Arterial Fraction of Oxyhgb 93.4 % (93.0-99.0); Arterial HCO3 29.1 mmol/L (22.0-26.0); Arterial MetHb 0.4 % (0.0-1.5); Arterial Total Hemglobin 9.1 g/dl (12.0-18.0); MODE NASAL CANNULA
--- NOTE | 2017-01-25 14:03 | CONS ---
Date/Time of Note Date/Time of Note DATE: 01/25/17 TIME: 14:02 Assessment/Plan Assessment/Plan Chief Complaint/Hosp Course 61-year-old male admitted for shortness of breath. Patient is a history of hepatitis C cirrhosis of liver, morbid obesity obstructive sleep apnea, diabetes mellitus and hypertension. Recent was brought to the emergency room for abdominal distention and shortness of breath. He was slightly nauseous. 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 Problems: Additional Assessment/Plan Additional Assessment/Plan 1. Shortness of breath multifactorial 2. Morbid obesity 3. Cirrhosis of liver with portal hypertension 4. Mild ascites 5. Diabetes 6. Hypertension 7. Renal failure 8. Anasarca 9. Bacteremia staph positive in the blood culture 10. No evidence of spontaneous bacterial peritonitis 11. Severe constipation 12. Profound weakness Plan P.o. fluid restriction 1000 cc a day Low-sodium diet Monitor BUN and creatinine closely Weight loss Supplemental oxygen Dietary consult, reduce calorie intake to 1000-calorie a day Discussed with the patient and the family Continue antibiotic Diuretic as per analytical manager. Amitiza Continue with the dialysis and remove fluid as tolerated by the patient Dulcolax tablet p.o. Discussed with the son [id number] Increase the dose of lactulose both for high ammonia and constipation Consultation Date/Type/Reason Admit Date/Time Jan 07, 2017 at 10:13 Initial Consult Date 01/09/17 Type of Consultation: Pulmonary Referring Provider: JENY MORA MD 24 HR Interval Summary Free Text/Dictation Patient complains of low-grade fever total body ache. He had no bowel movement Exam/Review of Systems Vital Signs Vitals Vital Signs Date Time Temp Pulse Resp B/P Pulse Ox O2 Delivery O2 Flow Rate FiO2 01/25/17 12:53 85 26 95 Nasal Cannula 5.0 01/25/17 11:40 99.7 120/56 Intake and Output 01/24/17 01/24/17 01/25/17 14:59 22:59 06:59 Intake Total 550 ml 600 ml 150 ml Output Total 3500 ml 500 ml 800 ml Balance -2950 ml 100 ml -650 ml Exam Constitutional: alert, oriented, well developed Psych: nl mood/affect, no complaints Head: atraumatic, normocephalic Eyes: EOMI, PERRL, nl conjunctiva, nl lids, nl sclera ENMT: nl external ears & nose, nl lips & teeth, nl nasal mucosa & septum Neck: non-tender, supple Respiratory: clear to auscultation, normal air movement Cardiovascular: nl pulses, regular rate and rhythm Gastrointestinal: nl liver, spleen, non-tender, soft Musculoskeletal: nl extremities to inspection, nl gait and stance Extremities: normal pulses 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: ELECTROCARDIOGRAM TECHNICIAN II-XII intact, nl mental status, nl speech, nl strength Skin: nl turgor, No rash or lesions Lymph: nl lymph nodes Results Result Diagram: 01/25/17 0554 01/25/17 0554 Results 24 hrs Laboratory Tests Test 01/24/17 17:40 01/24/17 20:49 01/25/17 02:54 01/25/17 05:54 Bedside Glucose 204 233 H 178 White Blood Count 12.1 #H Red Blood Count 3.23 L Hemoglobin 8.1 L Hematocrit 28.6 L Mean Corpuscular Volume 88.5 Mean Corpuscular Hemoglobin 25.1 L Mean Corpuscular Hemoglobin Concent 28.3 L Red Cell Distribution Width 17.2 H Platelet Count 82 L Mean Platelet Volume 12.3 H Neutrophils % 78.4 H Lymphocytes % 10.5 L Monocytes % 6.5 Eosinophils % 2.5 Basophils % 0.1 Nucleated Red Blood Cells % 0.2 H Neutrophils # 9.5 H Lymphocytes # 1.3 Monocytes # 0.8 Eosinophils # 0.3 Basophils # 0.0 Nucleated Red Blood Cells # 0.0 Sodium Level 151 H Potassium Level 4.1 Chloride Level 105 Carbon Dioxide Level 33 H Anion Gap 17 H Blood Urea Nitrogen 55 H Creatinine 2.86 H Glucose Level 127 # Calcium Level 8.4 Phosphorus Level 5.1 H Iron Level 28 L Total Iron Binding Capacity 251 Percent Iron Saturation 11 L Ferritin 33.0 Total Bilirubin 0.6 Direct Bilirubin 0.00 Indirect Bilirubin 0.6 Aspartate Amino Transf (AST/SGOT) 39 Alanine Aminotransferase (ALT/SGPT) 45 Alkaline Phosphatase 100 Ammonia 91 #H Total Protein 6.6 Albumin 2.9 L Globulin 3.70 H Albumin/Globulin Ratio 0.78 Test 01/25/17 08:14 01/25/17 11:23 01/25/17 11:49 Bedside Glucose 127 132 Blood Gas Specimen Source Blood arterial Arterial Blood Date Drawn 01/25/2017 12:18:35 PM Arterial Blood pH (Temp corrected) 7.386 Arterial Blood pCO2 (Temp correct) 49.7 H Arterial Blood pO2 (Temp corrected) 70.9 L Arterial Blood HCO3 29.1 H Arterial Blood Base Excess 3.5 H Arterial Blood Oxygen Saturation 94.1 L Oswaldo Test ACCEPTAB Arterial Blood Gas Puncture Site Right Radial Arterial Blood Carboxyhemoglobin 0.3 Arterial Blood Methemoglobin 0.4 Blood Gas A-a O2 Differential 128.1 H Oxyhemoglobin Percent 93.4 Total Hemoglobin 9.1 L Blood Gas Temperature 37.0 Blood Gas Modality NASAL CANNULA FiO2 36.0 Blood Gas Notified Whom TM Blood Gas Notified Time 01/25/2017 12:26:05 PM Medications Medications Current Medications Atorvastatin Calcium (Lipitor) 20 mg HS PO Last administered on 01/21/17 20:35 ; Admin Dose 20 MG; Start 01/07/17 at 21:00 Miscellaneous Information 1 ea NOTE XX ; Start 01/07/17 at 17:30 Glucose (Glutose) 15 gm Q15M PRN PO DECREASED GLUCOSE; Start 01/07/17 at 17:30 Glucose (Glutose) 22.5 gm Q15M PRN PO DECREASED GLUCOSE; Start 01/07/17 at 17: 30 Dextrose (D50w Syringe) 25 ml Q15M PRN IV DECREASED GLUCOSE; Start 01/07/17 at 17:30 Dextrose (D50w Syringe) 50 ml Q15M PRN IV DECREASED GLUCOSE; Start 01/07/17 at 17:30 Glucagon (Glucagen) 1 mg Q15M PRN IM DECREASED GLUCOSE; Start 01/07/17 at 17:30 Glucose (Glutose) 15 gm Q15M PRN BUCCAL DECREASED GLUCOSE; Start 01/07/17 at 17 :30 Nifedipine (Procardia Xl) 30 mg DAILY PO Last administered on 01/25/17 10:09; Admin Dose 30 MG; Start 01/08/17 at 09:00 Docusate Sodium (Colace) 100 mg BID PRN PO CONSTIPATION Last administered on 11:56; Admin Dose 100 MG; Start 01/08/17 at 14:00 Acetaminophen (Tylenol Tab) 500 mg Q6H PRN PO PAIN AND OR ELEVATED TEMP Last administered on 01/25/17 11:09; Admin Dose 500 MG; Start 01/08/17 at 15:30 Acetaminophen/ Hydrocodone Bitart ([place] (5/325)) 1 tab Q4H PRN PO PAIN Last administered on 01/24/17 23:45; Admin Dose 1 TAB; Start 01/09/17 at 08:30 Diagnostic Test (Pha) (Accu-Chek) 1 ea 02 XX Last administered on 01/25/17 02: 59; Admin Dose 1 EA; Start 01/15/17 at 02:00 Insulin Aspart 10 unit 10 unit ONCE PRN SC ELEVATED GLUCOSE Last administered on 01/21/17 02:15; Admin Dose 10 UNIT; Start 01/17/17 at 02:00 Sodium Chloride (1/2 NS) 1,000 ml @ 40 mls/hr Q24H IV Last administered on 01/18 21:32; Admin Dose 75 MLS/HR; Start 01/17/17 at 17:00; Status Future Hold Nitroglycerin (Nitroglycerin (Sl Tab) 0.4 Mg) 1 tab Q5M PRN SL ANGINA; Start at 21:30 Epoetin Sean 04194 units 10,000 units MoWeFr@17 SC Last administered on 17:37; Admin Dose 10,000 UNITS; Start 01/19/17 at 17:00 Piperacillin Sod/ Tazobactam Sod (Zosyn 2.25gm/ 50ml (Pmx)) 50 ml @ 100 mls/hr Q6 IVPB Last administered on 01/25/17 11:21; Admin Dose 100 MLS/HR; Start 06/28 at 09:00 Insulin Glargine (Lantus) 25 unit DAILY@20 SC Last administered on 01/24/17 20 :22; Admin Dose 25 UNIT; Start 01/21/17 at 20:00 Lubiprostone (Amitiza) 24 mcg BID PO Last administered on 01/25/17 10:09; Admin Dose 24 MCG; Start 01/21/17 at 21:00 Lactulose (Enulose) 20 gm BID PRN PO CONSTIPATION; Start 01/22/17 at 13:00 Ondansetron HCl (Zofran Inj) 4 mg Q4H PRN IV NAUSEA AND/OR VOMITING Last administered on 01/25/17 11:20; Admin Dose 4 MG; Start 01/24/17 at 13:30 Lactulose (Enulose) 20 gm BID PO ; Start 01/25/17 at 21:00 STUART STANLEY MD Jan 25, 2017 14:03
--- NOTE | 2017-01-25 14:45 | CONS ---
Date/Time of Note Date/Time of Note DATE: 01/25/17 TIME: 14:42 Assessment/Plan Assessment/Plan Additional Assessment/Plan 1. Shortness of breath multifactorial: better post hd x 2. cont to monitor. scheduled for hd in am 2. Morbid obesity: no chnage 3. Cirrhosis of liver with portal hypertension/ known hep c, ammonia level higher tody and more lethargic. lactulose dose adjusted per gi 4. Mild ascites 5. Diabetes: on meds 6. Hypertension: controlled 7. esrd: started hd x 2, next hd on in am 8. Anasarca: improving with hd 9. Bacteremia staph positive in the blood culture: on abx 10- severe anemia: cont epogen with hd. consider prbc f hb drops further Consultation Date/Type/Reason Admit Date/Time Jan 07, 2017 at 10:13 Initial Consult Date 01/19/17 Type of Consultation: Pulmonary Referring Provider: JENY MORA MD 24 HR Interval Summary Free Text/Dictation very lethargic today, poorly arousable. very weak and has no apetite. at bedside Exam/Review of Systems Vital Signs Vitals Vital Signs Date Time Temp Pulse Resp B/P Pulse Ox O2 Delivery O2 Flow Rate FiO2 01/25/17 12:53 85 26 95 Nasal Cannula 5.0 01/25/17 11:40 99.7 120/56 Intake and Output 01/24/17 01/24/17 01/25/17 15:00 23:00 07:00 Intake Total 550 ml 600 ml 150 ml Output Total 3500 ml 500 ml 800 ml Balance -2950 ml 100 ml -650 ml Exam Constitutional: other (lethargic, poorly arousable) Head: normocephalic Neck: non-tender, supple Respiratory: clear to auscultation, diminished breath sounds Cardiovascular: edema (1+), nl pulses, regular rate and rhythm Gastrointestinal: distended, soft Results Result Diagram: 01/25/17 0554 01/25/17 0554 Results 24 hrs Laboratory Tests Test 01/24/17 17:40 01/24/17 20:49 01/25/17 02:54 01/25/17 05:54 Bedside Glucose 204 233 H 178 White Blood Count 12.1 #H Red Blood Count 3.23 L Hemoglobin 8.1 L Hematocrit 28.6 L Mean Corpuscular Volume 88.5 Mean Corpuscular Hemoglobin 25.1 L Mean Corpuscular Hemoglobin Concent 28.3 L Red Cell Distribution Width 17.2 H Platelet Count 82 L Mean Platelet Volume 12.3 H Neutrophils % 78.4 H Lymphocytes % 10.5 L Monocytes % 6.5 Eosinophils % 2.5 Basophils % 0.1 Nucleated Red Blood Cells % 0.2 H Neutrophils # 9.5 H Lymphocytes # 1.3 Monocytes # 0.8 Eosinophils # 0.3 Basophils # 0.0 Nucleated Red Blood Cells # 0.0 Sodium Level 151 H Potassium Level 4.1 Chloride Level 105 Carbon Dioxide Level 33 H Anion Gap 17 H Blood Urea Nitrogen 55 H Creatinine 2.86 H Glucose Level 127 # Calcium Level 8.4 Phosphorus Level 5.1 H Iron Level 28 L Total Iron Binding Capacity 251 Percent Iron Saturation 11 L Ferritin 33.0 Total Bilirubin 0.6 Direct Bilirubin 0.00 Indirect Bilirubin 0.6 Aspartate Amino Transf (AST/SGOT) 39 Alanine Aminotransferase (ALT/SGPT) 45 Alkaline Phosphatase 100 Ammonia 91 #H Total Protein 6.6 Albumin 2.9 L Globulin 3.70 H Albumin/Globulin Ratio 0.78 Test 01/25/17 08:14 01/25/17 11:23 01/25/17 11:49 Bedside Glucose 127 132 Blood Gas Specimen Source Blood arterial Arterial Blood Date Drawn 01/25/2017 12:18:35 PM Arterial Blood pH (Temp corrected) 7.386 Arterial Blood pCO2 (Temp correct) 49.7 H Arterial Blood pO2 (Temp corrected) 70.9 L Arterial Blood HCO3 29.1 H Arterial Blood Base Excess 3.5 H Arterial Blood Oxygen Saturation 94.1 L Oswaldo Test ACCEPTAB Arterial Blood Gas Puncture Site Right Radial Arterial Blood Carboxyhemoglobin 0.3 Arterial Blood Methemoglobin 0.4 Blood Gas A-a O2 Differential 128.1 H Oxyhemoglobin Percent 93.4 Total Hemoglobin 9.1 L Blood Gas Temperature 37.0 Blood Gas Modality NASAL CANNULA FiO2 36.0 Blood Gas Notified Whom TM Blood Gas Notified Time 01/25/2017 12:26:05 PM Medications Medications Current Medications Atorvastatin Calcium (Lipitor) 20 mg HS PO Last administered on 01/21/17t 20:35 ; Admin Dose 20 MG; Start 01/07/17 at 21:00 Miscellaneous Information 1 ea NOTE XX ; Start 01/07/17 at 17:30 Glucose (Glutose) 15 gm Q15M PRN PO DECREASED GLUCOSE; Start 01/07/17 at 17:30 Glucose (Glutose) 22.5 gm Q15M PRN PO DECREASED GLUCOSE; Start 01/07/17 at 17: 30 Dextrose (D50w Syringe) 25 ml Q15M PRN IV DECREASED GLUCOSE; Start 01/07/17 at 17:30 Dextrose (D50w Syringe) 50 ml Q15M PRN IV DECREASED GLUCOSE; Start 01/07/17 at 17:30 Glucagon (Glucagen) 1 mg Q15M PRN IM DECREASED GLUCOSE; Start 01/07/17 at 17:30 Glucose (Glutose) 15 gm Q15M PRN BUCCAL DECREASED GLUCOSE; Start 01/07/17 at 17 :30 Nifedipine (Procardia Xl) 30 mg DAILY PO Last administered on 01/25/17 10:09; Admin Dose 30 MG; Start 01/08/17 at 09:00 Docusate Sodium (Colace) 100 mg BID PRN PO CONSTIPATION Last administered on 11:56; Admin Dose 100 MG; Start 01/08/17 at 14:00 Acetaminophen (Tylenol Tab) 500 mg Q6H PRN PO PAIN AND OR ELEVATED TEMP Last administered on 01/25/17 11:09; Admin Dose 500 MG; Start 01/08/17 at 15:30 Acetaminophen/ Hydrocodone Bitart ([place] (5/325)) 1 tab Q4H PRN PO PAIN Last administered on 01/24/17 23:45; Admin Dose 1 TAB; Start 01/09/17 at 08:30 Diagnostic Test (Pha) (Accu-Chek) 1 ea 02 XX Last administered on 01/25/17 02: 59; Admin Dose 1 EA; Start 01/15/17 at 02:00 Insulin Aspart 10 unit 10 unit ONCE PRN SC ELEVATED GLUCOSE Last administered on 01/21/17 02:15; Admin Dose 10 UNIT; Start 01/17/17 at 02:00 Sodium Chloride (1/2 NS) 1,000 ml @ 40 mls/hr Q24H IV Last administered on 01/18 21:32; Admin Dose 75 MLS/HR; Start 01/17/17 at 17:00; Status Future Hold Nitroglycerin (Nitroglycerin (Sl Tab) 0.4 Mg) 1 tab Q5M PRN SL ANGINA; Start at 21:30 Epoetin Sean 79552 units 10,000 units MoWeFr@17 SC Last administered on 17:37; Admin Dose 10,000 UNITS; Start 01/19/17 at 17:00 Piperacillin Sod/ Tazobactam Sod (Zosyn 2.25gm/ 50ml (Pmx)) 50 ml @ 100 mls/hr Q6 IVPB Last administered on 01/25/17 11:21; Admin Dose 100 MLS/HR; Start 06/28 at 09:00 Insulin Glargine (Lantus) 25 unit DAILY@20 SC Last administered on 01/24/17 20 :22; Admin Dose 25 UNIT; Start 01/21/17 at 20:00 Lubiprostone (Amitiza) 24 mcg BID PO Last administered on 01/25/17 10:09; Admin Dose 24 MCG; Start 01/21/17 at 21:00 Lactulose (Enulose) 20 gm BID PRN PO CONSTIPATION; Start 01/22/17 at 13:00 Ondansetron HCl (Zofran Inj) 4 mg Q4H PRN IV NAUSEA AND/OR VOMITING Last administered on 01/25/17 11:20; Admin Dose 4 MG; Start 01/24/17 at 13:30 Lactulose (Enulose) 30 gm QID PO ; Start 01/25/17 at 17:00 BRIAN PARKER MD Jan 25, 2017 14:45
--- NOTE | 2017-01-25 17:10 | RADRPT ---
PROCEDURE: CT Brain without contrast. CLINICAL INDICATION: Facial drooping. TECHNIQUE: A CT of the brain was performed on a multidetector CT scanner utilizing axial sections from the skull base through the vertex without contrast. Images were reviewed on a high-resolution [employer] workstation. Exam CTDI = 44.81 mGy and the DLP = 720.23 mGy-cm. One or more of the following dose reduction techniques were used: Automated exposure control Adjustment of the mA and/or kV according to patient size. Use of iterative reconstruction technique. COMPARISON: CT head 01/10/2017 FINDINGS: Mild diffuse cerebral and cerebellar atrophy is present. There is proportionate dilatation of the v entricular system and sulci in a symmetric fashion. There is prominence of the extraaxial spaces sec ondary to atrophy. There is no evidence of intracranial hemorrhage, mass effect or midline shift. N o abnormal intra-axial or extra-axial fluid collections are seen. The density of the brain is hermilo l and the joya/white matter differentiation is well preserved. Mild patchy diffuse deep white matte r microangiopathic ischemic change is seen. The osseous structures are unremarkable. Paranasal s inuses are clear. Vascular calcifications are identified. IMPRESSION: 1. No intracranial hemorrhage, mass effect or midline shift. 2. Mild generalized atrophy. Mild microangiopathic ischemic change. 3. Intracranial atherosclerosis. RPTAT: PP .Nahomi Rodriguez MD, MD Date Time Electronically viewed and signed by .Nahomi Rodriguez MD, MD on 01/25/2017 17:09 .O/
[2017-01-25] MEDS: LACTULOSE 30ML CUP PO SCH ×2 (17:22→20:53)
[2017-01-25] MEDS: INSULIN GLARGINE [LANtus] 3 ML PEN SC SCH (20:00)
[2017-01-25] MEDS: ATORVASTATIN 20 MG TAB PO SCH (20:53)
[2017-01-25] MEDS ORDERED: LACTULOSE 30ML CUP PO SCH (21:00)
[2017-01-25] MEDS: HYDROCODONE/APAP (5/325) TAB PO PRN (23:32)
[2017-01-26] VITALS (20 sets, daily range): BP systolic 112–139; BP diastolic 59–73; PULSE 70–90; RESP 16–23
[2017-01-26] MEDS: PIPER-TAZO 2.25 GM (PMX) 50 ML IVPB SCH ×5 (00:06→23:28)
[2017-01-26] MEDS: ACCU-CHEK XX SCH (02:24)
[2017-01-26 08:08] LABS: ADD SCAN DIFF NO
[2017-01-26 08:16] LABS: ABNORMAL IP MESSAGE 1; BASOPHILS % 0.1 % (0.0-2.0); EOSINOPHILS # 0.4 10^3/ul (0.0-0.5); EOSINOPHILS % 3.3 % (0.0-7.0); HEMATOCRIT 28.1 % (42.0-52.0); HEMOGLOBIN 7.8 g/dl (14.0-18.0); LYMPHOCYTES # 1.1 10^3/ul (0.8-2.9); LYMPHOCYTES % 9.9 % (15.0-51.0); MEAN CORPUSCULAR HEMOGLOBIN 24.7 pg (29.0-33.0); MEAN CORPUSCULAR HGB CONC 27.8 g/dl (32.0-37.0); MEAN CORPUSCULAR VOLUME 88.9 fl (82.0-101.0); MEAN PLATELET VOLUME 12.2 fl (7.4-10.4); MONOCYTE # 0.6 10^3/ul (0.3-0.9); MONOCYTES % 5.3 % (0.0-11.0); NEUTROPHIL # 8.9 10^3/ul (1.6-7.5); NEUTROPHILS % 79.9 % (39.0-77.0); NUCLEATED RED BLOOD CELLS% 0.2 /100WBC (0.0-0.0); PLATELET COUNT 82 10^3/UL (140-415); RED BLOOD COUNT 3.16 10^6/ul (4.70-6.10); RED CELL DISTRIBUTION WIDTH 17.4 % (11.5-14.5); WHITE BLOOD COUNT 11.2 10^3/ul (4.8-10.8)
--- NOTE | 2017-01-26 08:35 | CONS ---
Date/Time of Note Date/Time of Note DATE: 01/26/17 TIME: 08:28 Assessment/Plan Assessment/Plan Chief Complaint/Hosp Course 1)Liver cirrhosis with portal HTN due to Hep C to repeat ammonia level 01/21 - ammonia level is mildly elevated at 57 consider lacutlose 01/26 - pt getting lactulose due to rising ammonia level but so far no BM's 2) CHF +/- pneumonia unable to tolerate lasix with worsening renal function 01/21 - in light of MSSA in blood and no open wounds or chronic IV in place, concern would be lung may be the portal of entry to start zosyn to cover for lung infection as well as the MSSA CXR does not show a lobar infiltrate 01/22 - continue with zosyn 01/23 - beta d glucan to look for invasive fungal disease was negative continue with zosyn 01/24 - stable on zosyn wbc is back to normal 01/26 - stable, WBC minimal elevated pt would likely benefit from a blood tx 3) r/o SBP pt to get paracentesis later today cefotaxime was started by the primary if fevers not improving will broaden the coverage 01/20 - pt to get paracentesis today continue with cefotaxime 01/21 - low number of PMN's in ascitic fluid, this in not the source for his MSSA d/c cefotaxime 4) new onset fever with leukocytosis pt has been on steroids but this does not explain the new fever the potential sources would include, ascitic fluid, lung urinalysis does not suggest an infection will order beta d glucan, aspergillus galactomannan, procalcitonin in a.m. will order LE dopplers to make sure no DVT has developed if cefotaxime does not improve his fever, wbc then will broaden coverage to include lung infection 01/20 - await paracentesis and a.m. labs vanco added due to GPC in blood cx fevers appear improved 01/21 - MSSA is present in blood and urine cx u/a did not show signs of infection and so the urine may only be seeded from the bacteremia will order repeat u/a at this time d/c vanco/cefotaxime and start zosyn since there is no skin breakdown or ulcers the lung becomes a more likely portal of entry 01/22 - fevers resolved continue with zosyn for bacteremia and possible pneumonia 5) MSSA bacteremia 01/20 - no central line in place, IV sites look ok await ID to see if true infection or a contaminant vanco started, will order repeat blood cx now 01/21 - true infection of blood with MSSA repeat blood cx from 01/20 is NGTD d/c vanco/cefotaxime and start zosyn check u/a 01/22 - MSSA in one set from 01/20 repeat blood cx today pt needs dialysis and likely he is no longer bacteremic so ok for dialysis line but if pt remains bacteremic it will need to be replaced 01/23 - pt to get dialysis line today and likely HD afterwards continue with zosyn 01/24 - repeat blood cx from 01/22 remain NGTD wbc is back to normal anticipate a 4 week course of treatment for this, will eventually change zosyn to ceftriaxone 01/26 - consider blood tx to help with effectiveness of antibiotics 6) anemia 01/26 - when pt does have a BM will get hemoccult to see if pt will need prophylaxis for SBP consider blood tx Problems: Consultation Date/Type/Reason Admit Date/Time Jan 07, 2017 at 10:13 Initial Consult Date 01/19/17 Type of Consultation: ID Referring Provider: JENY MORA MD 24 HR Interval Summary Free Text/Dictation pt was confused yesterday and lethargic, he remains lethargic no V, being given lactulose but no BM's yet no change with breathing Exam/Review of Systems Vital Signs Vitals Vital Signs Date Time Temp Pulse Resp B/P Pulse Ox O2 Delivery O2 Flow Rate FiO2 01/26/17 08:21 5.0 01/26/17 08:18 85 01/26/17 07:31 98.2 16 139/71 95 01/25/17 20:45 Nasal Cannula Intake and Output 01/25/17 01/25/17 01/26/17 15:00 23:00 07:00 Intake Total 100 ml 250 ml Output Total 550 ml 400 ml Balance -450 ml -150 ml Exam pt opens eyes but does not respond to questions Respiratory: other (mostly clear but has some coarse rhonchi) Cardiovascular: regular rate and rhythm Gastrointestinal: distended, soft Extremities: other (minimal edema) Results Result Diagram: 01/26/17 0608 01/25/17 0554 Results 24 hrs Laboratory Tests Test 01/25/17 11:23 01/25/17 11:49 01/25/17 17:23 01/25/17 20:51 Bedside Glucose 132 149 204 Blood Gas Specimen Source Blood arterial Arterial Blood Date Drawn 01/25/2017 12:18:35 PM Arterial Blood pH (Temp corrected) 7.386 Arterial Blood pCO2 (Temp correct) 49.7 H Arterial Blood pO2 (Temp corrected) 70.9 L Arterial Blood HCO3 29.1 H Arterial Blood Base Excess 3.5 H Arterial Blood Oxygen Saturation 94.1 L Oswaldo Test ACCEPTAB Arterial Blood Gas Puncture Site Right Radial Arterial Blood Carboxyhemoglobin 0.3 Arterial Blood Methemoglobin 0.4 Blood Gas A-a O2 Differential 128.1 H Oxyhemoglobin Percent 93.4 Total Hemoglobin 9.1 L Blood Gas Temperature 37.0 Blood Gas Modality NASAL CANNULA FiO2 36.0 Blood Gas Notified Whom TM Blood Gas Notified Time 01/25/2017 12:26:05 PM Test 01/26/17 02:15 01/26/17 06:08 01/26/17 08:24 Bedside Glucose 178 193 White Blood Count 11.2 H Red Blood Count 3.16 L Hemoglobin 7.8 L Hematocrit 28.1 L Mean Corpuscular Volume 88.9 Mean Corpuscular Hemoglobin 24.7 L Mean Corpuscular Hemoglobin Concent 27.8 L Red Cell Distribution Width 17.4 H Platelet Count 82 L Mean Platelet Volume 12.2 H Neutrophils % 79.9 H Lymphocytes % 9.9 L Monocytes % 5.3 Eosinophils % 3.3 Basophils % 0.1 Nucleated Red Blood Cells % 0.2 H Neutrophils # 8.9 H Lymphocytes # 1.1 Monocytes # 0.6 Eosinophils # 0.4 Basophils # 0.0 Nucleated Red Blood Cells # 0.0 Medications Medications Current Medications Atorvastatin Calcium (Lipitor) 20 mg HS PO Last administered on 01/21/17t 20:35 ; Admin Dose 20 MG; Start 01/07/17 at 21:00 Miscellaneous Information 1 ea NOTE XX ; Start 01/07/17 at 17:30 Glucose (Glutose) 15 gm Q15M PRN PO DECREASED GLUCOSE; Start 01/07/17 at 17:30 Glucose (Glutose) 22.5 gm Q15M PRN PO DECREASED GLUCOSE; Start 01/07/17 at 17: 30 Dextrose (D50w Syringe) 25 ml Q15M PRN IV DECREASED GLUCOSE; Start 01/07/17 at 17:30 Dextrose (D50w Syringe) 50 ml Q15M PRN IV DECREASED GLUCOSE; Start 01/07/17 at 17:30 Glucagon (Glucagen) 1 mg Q15M PRN IM DECREASED GLUCOSE; Start 01/07/17 at 17:30 Glucose (Glutose) 15 gm Q15M PRN BUCCAL DECREASED GLUCOSE; Start 01/07/17 at 17 :30 Nifedipine (Procardia Xl) 30 mg DAILY PO Last administered on 01/25/17 10:09; Admin Dose 30 MG; Start 01/08/17 at 09:00 Docusate Sodium (Colace) 100 mg BID PRN PO CONSTIPATION Last administered on 11:56; Admin Dose 100 MG; Start 01/08/17 at 14:00 Acetaminophen (Tylenol Tab) 500 mg Q6H PRN PO PAIN AND OR ELEVATED TEMP Last administered on 01/25/17 11:09; Admin Dose 500 MG; Start 01/08/17 at 15:30 Acetaminophen/ Hydrocodone Bitart ([place] (5/325)) 1 tab Q4H PRN PO PAIN Last administered on 01/25/17 23:32; Admin Dose 1 TAB; Start 01/09/17 at 08:30 Diagnostic Test (Pha) (Accu-Chek) 1 ea 02 XX Last administered on 01/26/17 02: 24; Admin Dose 1 EA; Start 01/15/17 at 02:00 Insulin Aspart 10 unit 10 unit ONCE PRN SC ELEVATED GLUCOSE Last administered on 01/21/17 02:15; Admin Dose 10 UNIT; Start 01/17/17 at 02:00 Sodium Chloride (1/2 NS) 1,000 ml @ 40 mls/hr Q24H IV Last administered on 01/18 21:32; Admin Dose 75 MLS/HR; Start 01/17/17 at 17:00; Status Future Hold Nitroglycerin (Nitroglycerin (Sl Tab) 0.4 Mg) 1 tab Q5M PRN SL ANGINA; Start at 21:30 Epoetin Sean 45288 units 10,000 units MoWeFr@17 SC Last administered on 17:37; Admin Dose 10,000 UNITS; Start 01/19/17 at 17:00 Piperacillin Sod/ Tazobactam Sod (Zosyn 2.25gm/ 50ml (Pmx)) 50 ml @ 100 mls/hr Q6 IVPB Last administered on 01/26/17 05:54; Admin Dose 100 MLS/HR; Start 06/28 at 09:00 Insulin Glargine (Lantus) 25 unit DAILY@20 SC Last administered on 01/24/17 20 :22; Admin Dose 25 UNIT; Start 01/21/17 at 20:00 Lubiprostone (Amitiza) 24 mcg BID PO Last administered on 01/25/17 20:53; Admin Dose 24 MCG; Start 01/21/17 at 21:00 Lactulose (Enulose) 20 gm BID PRN PO CONSTIPATION; Start 01/22/17 at 13:00 Ondansetron HCl (Zofran Inj) 4 mg Q4H PRN IV NAUSEA AND/OR VOMITING Last administered on 01/25/17 11:20; Admin Dose 4 MG; Start 01/24/17 at 13:30 Lactulose (Enulose) 30 gm QID PO Last administered on 01/25/17 20:53; Admin Dose 30 GM; Start 01/25/17 at 17:00 DANYEL HART MD Jan 26, 2017 08:35
[2017-01-26] MEDS: INSULIN ASPART [NOVOLOG] 3 ML PEN SC SCH ×4 (08:37→21:00)
[2017-01-26 08:38] LABS: ALBUMIN/GLOBULIN RATIO 0.76; BILIRUBIN,INDIRECT 0.6 mg/dl (0-1.1); BILIRUBIN,TOTAL 0.6 mg/dl (0.2-1.3); CALCIUM 8.2 mg/dl (8.4-10.2); CREATININE 3.49 mg/dl (0.61-1.24); POTASSIUM 3.8 mmol/L (3.5-5.1); TOTAL PROTEIN 6.9 g/dl (6.1-8.1)
--- NOTE | 2017-01-26 08:50 | CONS ---
Date/Time of Note Date/Time of Note DATE: 01/26/17 TIME: 08:45 Assessment/Plan Assessment/Plan Chief Complaint/Hosp Course Impression: 1. Chronic kidney disease. The patient is now getting hemodialysis. He is scheduled for a hemodialysis treatment today. 2. 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 Hypertension 4. Hyperlipidemia 5. Anemia 6. Congestive heart failure 7. Obstructive sleep apnea 8. Altered level of consciousness, his ammonia level has been elevated. He is on lactulose however he might also benefit from Xifaxan Problems: Consultation Date/Type/Reason Admit Date/Time Jan 07, 2017 at 10:13 Initial Consult Date 01/19/17 Type of Consultation: ID Referring Provider: JENY MORA MD 24 HR Interval Summary Free Text/Dictation He is lethargic. He is responsive but not talking. Subjective hx not possible: pt non-verbal Constitutional: disoriented Exam/Review of Systems Vital Signs Vitals Vital Signs Date Time Temp Pulse Resp B/P Pulse Ox O2 Delivery O2 Flow Rate FiO2 01/26/17 08:21 5.0 01/26/17 08:18 85 01/26/17 07:31 98.2 16 139/71 95 01/25/17 20:45 Nasal Cannula Intake and Output 01/25/17 01/25/17 01/26/17 15:00 23:00 07:00 Intake Total 100 ml 250 ml Output Total 550 ml 400 ml Balance -450 ml -150 ml Exam Constitutional: non-verbal Psych: confusion Respiratory: clear to auscultation, diminished breath sounds Cardiovascular: edema, regular rate and rhythm Gastrointestinal: ascites, soft Extremities: edema Results Result Diagram: 01/26/17 0608 01/25/17 0554 Results 24 hrs Laboratory Tests Test 01/25/17 11:23 01/25/17 11:49 01/25/17 17:23 01/25/17 20:51 Bedside Glucose 132 149 204 Blood Gas Specimen Source Blood arterial Arterial Blood Date Drawn 01/25/2017 12:18:35 PM Arterial Blood pH (Temp corrected) 7.386 Arterial Blood pCO2 (Temp correct) 49.7 H Arterial Blood pO2 (Temp corrected) 70.9 L Arterial Blood HCO3 29.1 H Arterial Blood Base Excess 3.5 H Arterial Blood Oxygen Saturation 94.1 L Oswaldo Test ACCEPTAB Arterial Blood Gas Puncture Site Right Radial Arterial Blood Carboxyhemoglobin 0.3 Arterial Blood Methemoglobin 0.4 Blood Gas A-a O2 Differential 128.1 H Oxyhemoglobin Percent 93.4 Total Hemoglobin 9.1 L Blood Gas Temperature 37.0 Blood Gas Modality NASAL CANNULA FiO2 36.0 Blood Gas Notified Whom TM Blood Gas Notified Time 01/25/2017 12:26:05 PM Test 01/26/17 02:15 01/26/17 06:08 01/26/17 08:24 Bedside Glucose 178 193 White Blood Count 11.2 H Red Blood Count 3.16 L Hemoglobin 7.8 L Hematocrit 28.1 L Mean Corpuscular Volume 88.9 Mean Corpuscular Hemoglobin 24.7 L Mean Corpuscular Hemoglobin Concent 27.8 L Red Cell Distribution Width 17.4 H Platelet Count 82 L Mean Platelet Volume 12.2 H Neutrophils % 79.9 H Lymphocytes % 9.9 L Monocytes % 5.3 Eosinophils % 3.3 Basophils % 0.1 Nucleated Red Blood Cells % 0.2 H Neutrophils # 8.9 H Lymphocytes # 1.1 Monocytes # 0.6 Eosinophils # 0.4 Basophils # 0.0 Nucleated Red Blood Cells # 0.0 Medications Medications Current Medications Atorvastatin Calcium (Lipitor) 20 mg HS PO Last administered on 01/21/17 20:35 ; Admin Dose 20 MG; Start 01/07/17 at 21:00 Miscellaneous Information 1 ea NOTE XX ; Start 01/07/17 at 17:30 Glucose (Glutose) 15 gm Q15M PRN PO DECREASED GLUCOSE; Start 01/07/17 at 17:30 Glucose (Glutose) 22.5 gm Q15M PRN PO DECREASED GLUCOSE; Start 01/07/17 at 17: 30 Dextrose (D50w Syringe) 25 ml Q15M PRN IV DECREASED GLUCOSE; Start 01/07/17 at 17:30 Dextrose (D50w Syringe) 50 ml Q15M PRN IV DECREASED GLUCOSE; Start 01/07/17 at 17:30 Glucagon (Glucagen) 1 mg Q15M PRN IM DECREASED GLUCOSE; Start 01/07/17 at 17:30 Glucose (Glutose) 15 gm Q15M PRN BUCCAL DECREASED GLUCOSE; Start 01/07/17 at 17 :30 Nifedipine (Procardia Xl) 30 mg DAILY PO Last administered on 01/25/17 10:09; Admin Dose 30 MG; Start 01/08/17 at 09:00 Docusate Sodium (Colace) 100 mg BID PRN PO CONSTIPATION Last administered on 11:56; Admin Dose 100 MG; Start 01/08/17 at 14:00 Acetaminophen (Tylenol Tab) 500 mg Q6H PRN PO PAIN AND OR ELEVATED TEMP Last administered on 01/25/17 11:09; Admin Dose 500 MG; Start 01/08/17 at 15:30 Acetaminophen/ Hydrocodone Bitart ([place] (5/325)) 1 tab Q4H PRN PO PAIN Last administered on 01/25/17 23:32; Admin Dose 1 TAB; Start 01/09/17 at 08:30 Diagnostic Test (Pha) (Accu-Chek) 1 ea 02 XX Last administered on 01/26/17 02: 24; Admin Dose 1 EA; Start 01/15/17 at 02:00 Insulin Aspart 10 unit 10 unit ONCE PRN SC ELEVATED GLUCOSE Last administered on 01/21/17 02:15; Admin Dose 10 UNIT; Start 01/17/17 at 02:00 Sodium Chloride (1/2 NS) 1,000 ml @ 40 mls/hr Q24H IV Last administered on 01/18 21:32; Admin Dose 75 MLS/HR; Start 01/17/17 at 17:00; Status Future Hold Nitroglycerin (Nitroglycerin (Sl Tab) 0.4 Mg) 1 tab Q5M PRN SL ANGINA; Start at 21:30 Epoetin Sean 88378 units 10,000 units MoWeFr@17 SC Last administered on 17:37; Admin Dose 10,000 UNITS; Start 01/19/17 at 17:00 Piperacillin Sod/ Tazobactam Sod (Zosyn 2.25gm/ 50ml (Pmx)) 50 ml @ 100 mls/hr Q6 IVPB Last administered on 01/26/17 05:54; Admin Dose 100 MLS/HR; Start 06/28 at 09:00 Insulin Glargine (Lantus) 25 unit DAILY@20 SC Last administered on 01/24/17 20 :22; Admin Dose 25 UNIT; Start 01/21/17 at 20:00 Lubiprostone (Amitiza) 24 mcg BID PO Last administered on 01/25/17 20:53; Admin Dose 24 MCG; Start 01/21/17 at 21:00 Lactulose (Enulose) 20 gm BID PRN PO CONSTIPATION; Start 01/22/17 at 13:00 Ondansetron HCl (Zofran Inj) 4 mg Q4H PRN IV NAUSEA AND/OR VOMITING Last administered on 01/25/17 11:20; Admin Dose 4 MG; Start 01/24/17 at 13:30 Lactulose (Enulose) 30 gm QID PO Last administered on 01/25/17 20:53; Admin Dose 30 GM; Start 01/25/17 at 17:00 ANA MELENDEZ MD Jan 26, 2017 08:49
[2017-01-26] MEDS: ALBUTEROL/IPRATROPIUM (NEB) 3 ML AMP HHN SCH ×4 (09:00→21:00)
--- NOTE | 2017-01-26 09:17 | CONS ---
Date/Time of Note Date/Time of Note DATE: 01/26/17 TIME: 09:15 Assessment/Plan Assessment/Plan Chief Complaint/Hosp Course Assessment: - Dyspnea- pulm edema, likely 2/2 MICHELL/CLF. - Elevated trop- low level, normalized atypical cp, ekg without acute abnl, no changes from admit. echo poor quality, but no obvious wall motion abnl, normal overall fxn. consider stress when acute issues improved (Liver/kidney) - Chronic diastolic heart failure - - h/o bradycardia: h/o of previous 2:1 heart block, pause likely from YEVGENIY. 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 tolerating, plan for iHD today, cont fluid removal - current no e/o cardiac symptoms and stable hd status. trop negative. cont medical mgmt for cad and consider risk stratification when acute issues improve. discussed with Dr. Mora Problems: Consultation Date/Type/Reason Admit Date/Time Jan 07, 2017 at 10:13 Initial Consult Date 01/09/17 Type of Consultation: card Referring Provider: JENY MORA MD 24 HR Interval Summary Free Text/Dictation no acute events. pt seen this am, sleeping. arousable, denies cp, sob right now. pt reports inc abd bloating, discomfort. family states was more awake overnight. pt snoring, on o2. tele reviewed; NSR no events Detailed Summary Cardiovascular: no complaints Gastrointestinal: other (blaoting) Exam/Review of Systems Vital Signs Vitals Vital Signs Date Time Temp Pulse Resp B/P Pulse Ox O2 Delivery O2 Flow Rate FiO2 01/26/17 08:30 Nasal Cannula 6.0 01/26/17 08:18 85 01/26/17 07:31 98.2 16 139/71 95 Intake and Output 01/25/17 01/25/17 01/26/17 15:00 23:00 07:00 Intake Total 100 ml 250 ml Output Total 550 ml 400 ml Balance -450 ml -150 ml Exam GENERAL: morbidly obese, sleeping, opens eyes to voice, NAD NECK: difficult to discern jvp, 2+ carotids CARDIAC EXAM: S1, S2. 2/6 systolic LLSB CHEST: anterior ramos clear ABDOMEN: inc girth, no ttp EXTREMITIES: 1+ edema ble, improving NEUROLOGIC: lethargic No focal deficits. Results Result Diagram: 01/26/17 0608 01/26/17 0608 Results 24 hrs Laboratory Tests Test 01/25/17 11:23 01/25/17 11:49 01/25/17 17:23 01/25/17 20:51 Bedside Glucose 132 149 204 Blood Gas Specimen Source Blood arterial Arterial Blood Date Drawn 01/25/2017 12:18:35 PM Arterial Blood pH (Temp corrected) 7.386 Arterial Blood pCO2 (Temp correct) 49.7 H Arterial Blood pO2 (Temp corrected) 70.9 L Arterial Blood HCO3 29.1 H Arterial Blood Base Excess 3.5 H Arterial Blood Oxygen Saturation 94.1 L Oswaldo Test ACCEPTAB Arterial Blood Gas Puncture Site Right Radial Arterial Blood Carboxyhemoglobin 0.3 Arterial Blood Methemoglobin 0.4 Blood Gas A-a O2 Differential 128.1 H Oxyhemoglobin Percent 93.4 Total Hemoglobin 9.1 L Blood Gas Temperature 37.0 Blood Gas Modality NASAL CANNULA FiO2 36.0 Blood Gas Notified Whom TM Blood Gas Notified Time 01/25/2017 12:26:05 PM Test 01/26/17 02:15 01/26/17 06:08 01/26/17 08:24 Bedside Glucose 178 193 White Blood Count 11.2 H Red Blood Count 3.16 L Hemoglobin 7.8 L Hematocrit 28.1 L Mean Corpuscular Volume 88.9 Mean Corpuscular Hemoglobin 24.7 L Mean Corpuscular Hemoglobin Concent 27.8 L Red Cell Distribution Width 17.4 H Platelet Count 82 L Mean Platelet Volume 12.2 H Neutrophils % 79.9 H Lymphocytes % 9.9 L Monocytes % 5.3 Eosinophils % 3.3 Basophils % 0.1 Nucleated Red Blood Cells % 0.2 H Neutrophils # 8.9 H Lymphocytes # 1.1 Monocytes # 0.6 Eosinophils # 0.4 Basophils # 0.0 Nucleated Red Blood Cells # 0.0 Sodium Level 149 H Potassium Level 3.8 Chloride Level 105 Carbon Dioxide Level 31 Anion Gap 17 H Blood Urea Nitrogen 61 H Creatinine 3.49 H Glucose Level 189 Calcium Level 8.2 L Total Bilirubin 0.6 Direct Bilirubin 0.00 Indirect Bilirubin 0.6 Aspartate Amino Transf (AST/SGOT) 39 Alanine Aminotransferase (ALT/SGPT) 40 Alkaline Phosphatase 108 Total Protein 6.9 Albumin 3.0 L Globulin 3.90 H Albumin/Globulin Ratio 0.76 Medications Medications Current Medications Atorvastatin Calcium (Lipitor) 20 mg HS PO Last administered on 01/21/17 20:35 ; Admin Dose 20 MG; Start 01/07/17 at 21:00 Miscellaneous Information 1 ea NOTE XX ; Start 01/07/17 at 17:30 Glucose (Glutose) 15 gm Q15M PRN PO DECREASED GLUCOSE; Start 01/07/17 at 17:30 Glucose (Glutose) 22.5 gm Q15M PRN PO DECREASED GLUCOSE; Start 01/07/17 at 17: 30 Dextrose (D50w Syringe) 25 ml Q15M PRN IV DECREASED GLUCOSE; Start 01/07/17 at 17:30 Dextrose (D50w Syringe) 50 ml Q15M PRN IV DECREASED GLUCOSE; Start 01/07/17 at 17:30 Glucagon (Glucagen) 1 mg Q15M PRN IM DECREASED GLUCOSE; Start 01/07/17 at 17:30 Glucose (Glutose) 15 gm Q15M PRN BUCCAL DECREASED GLUCOSE; Start 01/07/17 at 17 :30 Nifedipine (Procardia Xl) 30 mg DAILY PO Last administered on 01/25/17 10:09; Admin Dose 30 MG; Start 01/08/17 at 09:00 Docusate Sodium (Colace) 100 mg BID PRN PO CONSTIPATION Last administered on 11:56; Admin Dose 100 MG; Start 01/08/17 at 14:00 Acetaminophen (Tylenol Tab) 500 mg Q6H PRN PO PAIN AND OR ELEVATED TEMP Last administered on 01/25/17 11:09; Admin Dose 500 MG; Start 01/08/17 at 15:30 Acetaminophen/ Hydrocodone Bitart ([place] (5/325)) 1 tab Q4H PRN PO PAIN Last administered on 01/25/17 23:32; Admin Dose 1 TAB; Start 01/09/17 at 08:30 Diagnostic Test (Pha) (Accu-Chek) 1 ea 02 XX Last administered on 01/26/17 02: 24; Admin Dose 1 EA; Start 01/15/17 at 02:00 Insulin Aspart 10 unit 10 unit ONCE PRN SC ELEVATED GLUCOSE Last administered on 01/21/17 02:15; Admin Dose 10 UNIT; Start 01/17/17 at 02:00 Sodium Chloride (1/2 NS) 1,000 ml @ 40 mls/hr Q24H IV Last administered on 01/18 21:32; Admin Dose 75 MLS/HR; Start 01/17/17 at 17:00; Status Future Hold Nitroglycerin (Nitroglycerin (Sl Tab) 0.4 Mg) 1 tab Q5M PRN SL ANGINA; Start at 21:30 Epoetin Sean 40229 units 10,000 units MoWeFr@17 SC Last administered on 17:37; Admin Dose 10,000 UNITS; Start 01/19/17 at 17:00 Piperacillin Sod/ Tazobactam Sod (Zosyn 2.25gm/ 50ml (Pmx)) 50 ml @ 100 mls/hr Q6 IVPB Last administered on 01/26/17 05:54; Admin Dose 100 MLS/HR; Start 06/28 at 09:00 Insulin Glargine (Lantus) 25 unit DAILY@20 SC Last administered on 01/24/17 20 :22; Admin Dose 25 UNIT; Start 01/21/17 at 20:00 Lubiprostone (Amitiza) 24 mcg BID PO Last administered on 01/25/17 20:53; Admin Dose 24 MCG; Start 01/21/17 at 21:00 Lactulose (Enulose) 20 gm BID PRN PO CONSTIPATION; Start 01/22/17 at 13:00 Ondansetron HCl (Zofran Inj) 4 mg Q4H PRN IV NAUSEA AND/OR VOMITING Last administered on 01/25/17 11:20; Admin Dose 4 MG; Start 01/24/17 at 13:30 Lactulose 30 gm 30 gm QID PO Last administered on 01/25/17 20:53; Admin Dose 30 GM; Start 01/25/17 at 17:00 Ferric Sodium Gluconate Complex/ Sodium Chloride (Ferrlecit/NS) 110 ml @ 100 mls/hr Q24H IVPB ; Start 01/26/17 at 10:30; Stop 01/28/17 at 11:35 Rifaximin (Xifaxan) 550 mg BID PO ; Start 01/26/17 at 09:00 Procedures Procedures tele per hpi imaging reports/provider notes reviewed in emr MARISEL MEEKS Jan 26, 2017 09:17
--- NOTE | 2017-01-26 09:38 | PN ---
Date/Time of Note Date/Time of Note DATE: 01/26/17 TIME: 09:30 Assessment/Plan Lines/Catheters IV Catheter Type (from Nrs): Peripheral IV Sykes in Place (from Nrs): Yes Assessment/Plan Chief Complaint/Hosp Course 1. Mob[place] obesity: BMI 48 -encourage weight loss -nutrition optimization -eventual bariatric surgery when medically stable 2. CHF: dyspnea with pulmonary congestion; dyspnea much improved -continue diuresis per cards/renal -medical optimization -HD 3. Elevated troponin: renal failure vs NSTEMI; invasive/stress testing not recommended at this time per cards -trend and monitor 4. Chronic kidney disease: cr worsening; HD -per renal 5. Diabetes: blood sugar labile; on long acting and short acting insulin -optimize blood sugar control 6. Hypertension: controlled -cont. antihypertensives 7. YEVGENIY: morbid obesity, dyspnea improved after HD -cpap 8. Leukocytosis: on steroids; (repeat blood cx: no growth) vs. dvt; no fevers; wbc improving, ascitic fluid (low PMN- not the source per ID) -abx per sensitivity 9. Dyspnea: multifactorial chf+ morbid obesity + ascites + YEVGENIY; improved; s/p dialysis -supportive -as above 10. Hyponatremia now with hypernatremia: s/p dialysis; improving - judicious fluid management 11. Anemia: CKD +/- chronic disease; doubt active bleed; h/h decreasing -monitor -transfuse as needed 12. Hypothyroidism; low tsh/t4 -medical optimization 13. Hypocalcemia: likely 2/2 poor nutrition + hypothyroid -optimize lytes -as above -medical optimization 14. Hypoalbuminemia: liver disease +/- malnutrition, improving -replete -nutrition optimization Patient seen and examined in collaboration with Dr. Marcelino Morales Problems: Subjective 24 Hr Interval Summary somnolent, easily awakens. Shortness of breath improved. No c/o pain, cp, palpitations, cough, no fevers, chills, n/v/d, mccallum, sz. Exam/Review of Systems Vital Signs Vitals Vital Signs Date Time Temp Pulse Resp B/P Pulse Ox O2 Delivery O2 Flow Rate FiO2 01/26/17 08:30 Nasal Cannula 6.0 01/26/17 08:18 85 01/26/17 07:31 98.2 16 139/71 95 Intake and Output 7/01/25/17 01/26/17 15:00 23:00 07:00 Intake Total 100 ml 250 ml Output Total 550 ml 400 ml Balance -450 ml -150 ml Exam Free Text/Dictation Constitutional: alert, obese, oriented,somnolent Psych: nl mood/affect, no complaints Head: atraumatic, normocephalic Eyes: nl conjunctiva, nl lids ENMT: mucosa pink and moist Neck: non-tender, supple; right IJ Respiratory: diminished breath sounds; no use of accessory muscles Cardiovascular: regular rate and rhythm Gastrointestinal: distended (mod), non-tender, soft Genitourinary - Male: nl penis, nl scrotum, No CVA tenderness; sykes, clear urine output Musculoskeletal: nl extremities to inspection Extremities: edema (ble 2+), normal pulses 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: nl mental status, nl speech Skin: No rash or lesions Results Result Diagram: 01/26/17 0608 01/26/17 0608 ERLINDA VALLE NP Jan 26, 2017 09:37
[2017-01-26] MEDS: LACTULOSE 30ML CUP PO SCH ×4 (09:57→21:56)
[2017-01-26] MEDS: LUBIPROSTONE 24 MCG CAP PO SCH ×2 (09:58→21:56)
[2017-01-26] MEDS: RIFAXIMIN 550 MG TAB PO SCH ×2 (09:58→21:56)
[2017-01-26] MEDS: NIFEdipine (XL) 30 MG TAB PO SCH (09:58)
[2017-01-26] MEDS: SOD FERRIC GLUC COMPLX 125 MG in SOD CHLORIDE 0.9% 100 ML IVPB SCH (10:45)
--- NOTE | 2017-01-26 13:18 | PN ---
DATE: 01/17/2017 SUBJECTIVE DATA: Patient continues to have significant shortness of breath even on mild exertion. Denies any chest pain or palpitations. Also complains of pain with defecation secondary to hemorrhoids. OBJECTIVE DATA: The patient is in mild respiratory distress. Temperature 97.6. Blood pressure 136/72. O2 sat is 93% on 2 liters nasal cannula. The JVD is not increased. The chest exam reveals a few wheezes. Decreased breath sounds at the bases. Abdomen: Moderately obese. Extremities: 2+ pitting edema. LABORATORY AND DIAGNOSTIC DATA: WBC count 5.9, hematocrit 27.1, platelet count 132,000. The sodium is 139, potassium 5.3, BUN 100, creatinine 3.23, magnesium 3.3. IMPRESSION: 1. Cirrhosis with portal hypertension. 2. Obstructive sleep apnea. 3. Morbid obesity. 4. Chronic kidney disease with exacerbation of renal function secondary to diuretics. 5. Diabetes mellitus type 2. PLAN: The patient will need to be started on gentle hydration intravenously. His overall medical condition is complicated. We will need to carefully observe for hepatorenal syndrome. Will discuss with Dr. Arteaga. Repeat renal function tomorrow. Consider Nephrology evaluation. Dictated By: Ivan Brice MD /[email or web address] /Document#: [id number]
[2017-01-26] MEDS ORDERED: LIDOCAINE 1% (MPF) 5 ML VIAL SC ONE (13:30)
--- NOTE | 2017-01-26 13:45 | CONS ---
DATE OF ADMISSION: 01/07/2017 DATE OF CONSULTATION: 01/22/2017 Dear Doctors: Mr. El is a 61-year-old, morbidly obese patient with a plethora of medical conditions, who was admitted to [facility] secondary to extensive myriad of medical conditions. The patient has had [id number] kidney failure, in which he will require hemodialysis. Vascular Surgery was consulted for evaluation and possibility for Permcather placement. At the moment, the patient does have some shortness of breath and discomfort with his breathing. Otherwise denies nausea, vomiting, fever, or chills. The patient denies lower extremity claudication or rest pain-like symptoms. REVIEW OF SYSTEMS: Fourteen point review performed and negative except what was mentioned in the HPI. PAST MEDICAL HISTORY: Entails hypertension, liver cirrhosis secondary to hepatitis C, hyperlipidemia, anemia of chronic disease, congestive heart failure, obstructive sleep apnea; currently on Bumex drip, chronic kidney disease, stage 3-4 days, morbid obesity, BMI of 48; thrombocytopenia, diabetes, coronary artery disease and ascites. PAST SURGICAL HISTORY: None reported, and some language barrier even though we tried to through a social worker psychiatric. SOCIAL HISTORY: The patient is an ex-smoker. Currently denies tobacco, alcohol, illicit drug use. FAMILY HISTORY: Positive for hypertension. PHYSICAL EXAMINATION: GENERAL: He is alert, oriented x3. Some breathing discomfort. HEENT: Normocephalic, atraumatic. PERRLA. EOMI. Mucosa moist. NECK: Supple. No carotid bruit. LUNGS: Coarse breath sounds bilaterally. Some crackles at the bases. HEART: S1, S2 present. No murmurs. ABDOMEN: Soft, nontender, nondistended. Bowel sounds positive. Large truncal obesity. Large pannus. EXTREMITIES: Unable to palpate a femoral pulse secondary to body habitus. Unable to palpate the pedal pulse secondary to edema. Motor and sensory intact. Capillary refill 3 seconds. The left lower extremity unable to palpate a femoral pulse secondary to body habitus. Unable to palpate the pedal pulse secondary to edema. Motor and sensory intact. Capillary refill 3 seconds. ASSESSMENT AND PLAN: 1. Xsfzi-iw-tiiulmn kidney disease: It seems the patient has developed worsening renal function and likely require permanent catheter for dialysis To temporize his current status. We will continue the patient with our multidisciplinary team and schedule the patient for his catheter upon availability of the lab scientist. 2. Optimize vascular status (nutrition, exercise, sugar control, antiplatelets). Thank you for allowing us to partake in the care of your patient. Please call with any questions. Discussed findings, plan and management with the patient with a certified social worker psychiatric and they understand. Dictated By: Emmanuel Brown MD /[email or web address] /Document#: [id number]
--- NOTE | 2017-01-26 15:33 | CONS ---
Date/Time of Note Date/Time of Note DATE: 01/26/17 TIME: 15:32 Consult Date/Type/Reason Admit Date/Time Jan 07, 2017 at 10:13 Initial Consult Date 01/09/17 Type of Consultation: Pulmonary Ordering Provider: JENY MORA MD Subjective Patient comfortable no new events. His dyspnea. Is somewhat improved. Objective Vital Signs Date Time Temp Pulse Resp B/P Pulse Ox O2 Delivery O2 Flow Rate FiO2 01/26/17 12:14 74 01/26/17 11:24 98.2 16 118/60 96 01/26/17 08:30 Nasal Cannula 6.0 Intake and Output 01/25/17 01/25/17 01/26/17 14:59 22:59 06:59 Intake Total 100 ml 250 ml Output Total 550 ml 400 ml Balance -450 ml -150 ml Exam GENERAL: Elderly lady opens eyes to voice appears comfortable. VITAL SIGNS: per chart NECK: Supple. No JVD or lymphadenopathy. CARDIAC EXAM: S1, S2. 2/6 systolic ejection murmur. CHEST: clear bilaterally, No added sounds, rales or wheezes ABDOMEN: Soft, nontender. No guarding or rebound. EXTREMITIES: No cyanosis, clubbing or edema +2 NEUROLOGIC: Generalized weakness. No focal deficits. Appears comfortable at rest no acute distress Results/Medications Result Diagram: 01/26/17 0608 01/26/17 0608 Results 24 hrs Laboratory Tests Test 01/25/17 17:23 01/25/17 20:51 01/26/17 02:15 01/26/17 06:08 Bedside Glucose 149 204 178 White Blood Count 11.2 H Red Blood Count 3.16 L Hemoglobin 7.8 L Hematocrit 28.1 L Mean Corpuscular Volume 88.9 Mean Corpuscular Hemoglobin 24.7 L Mean Corpuscular Hemoglobin Concent 27.8 L Red Cell Distribution Width 17.4 H Platelet Count 82 L Mean Platelet Volume 12.2 H Neutrophils % 79.9 H Lymphocytes % 9.9 L Monocytes % 5.3 Eosinophils % 3.3 Basophils % 0.1 Nucleated Red Blood Cells % 0.2 H Neutrophils # 8.9 H Lymphocytes # 1.1 Monocytes # 0.6 Eosinophils # 0.4 Basophils # 0.0 Nucleated Red Blood Cells # 0.0 Sodium Level 149 H Potassium Level 3.8 Chloride Level 105 Carbon Dioxide Level 31 Anion Gap 17 H Blood Urea Nitrogen 61 H Creatinine 3.49 H Glucose Level 189 Calcium Level 8.2 L Total Bilirubin 0.6 Direct Bilirubin 0.00 Indirect Bilirubin 0.6 Aspartate Amino Transf (AST/SGOT) 39 Alanine Aminotransferase (ALT/SGPT) 40 Alkaline Phosphatase 108 Total Protein 6.9 Albumin 3.0 L Globulin 3.90 H Albumin/Globulin Ratio 0.76 Test 01/26/17 08:24 01/26/17 11:02 01/26/17 12:12 Bedside Glucose 193 231 H Troponin I 0.076 Medications Current Medications Atorvastatin Calcium (Lipitor) 20 mg HS PO Last administered on 01/21/17 20:35 ; Admin Dose 20 MG; Start 01/07/17 at 21:00 Miscellaneous Information 1 ea NOTE XX ; Start 01/07/17 at 17:30 Glucose (Glutose) 15 gm Q15M PRN PO DECREASED GLUCOSE; Start 01/07/17 at 17:30 Glucose (Glutose) 22.5 gm Q15M PRN PO DECREASED GLUCOSE; Start 01/07/17 at 17: 30 Dextrose (D50w Syringe) 25 ml Q15M PRN IV DECREASED GLUCOSE; Start 01/07/17 at 17:30 Dextrose (D50w Syringe) 50 ml Q15M PRN IV DECREASED GLUCOSE; Start 01/07/17 at 17:30 Glucagon (Glucagen) 1 mg Q15M PRN IM DECREASED GLUCOSE; Start 01/07/17 at 17:30 Glucose (Glutose) 15 gm Q15M PRN BUCCAL DECREASED GLUCOSE; Start 01/07/17 at 17 :30 Nifedipine (Procardia Xl) 30 mg DAILY PO Last administered on 01/26/17 09:58; Admin Dose 30 MG; Start 01/08/17 at 09:00 Docusate Sodium (Colace) 100 mg BID PRN PO CONSTIPATION Last administered on 11:56; Admin Dose 100 MG; Start 01/08/17 at 14:00 Acetaminophen (Tylenol Tab) 500 mg Q6H PRN PO PAIN AND OR ELEVATED TEMP Last administered on 01/25/17 11:09; Admin Dose 500 MG; Start 01/08/17 at 15:30 Acetaminophen/ Hydrocodone Bitart ([place] (5/325)) 1 tab Q4H PRN PO PAIN Last administered on 01/25/17 23:32; Admin Dose 1 TAB; Start 01/09/17 at 08:30 Diagnostic Test (Pha) (Accu-Chek) 1 ea 02 XX Last administered on 01/26/17 02: 24; Admin Dose 1 EA; Start 01/15/17 at 02:00 Insulin Aspart 10 unit 10 unit ONCE PRN SC ELEVATED GLUCOSE Last administered on 01/21/17 02:15; Admin Dose 10 UNIT; Start 01/17/17 at 02:00 Sodium Chloride (1/2 NS) 1,000 ml @ 40 mls/hr Q24H IV Last administered on 01/18 21:32; Admin Dose 75 MLS/HR; Start 01/17/17 at 17:00; Status Future Hold Nitroglycerin (Nitroglycerin (Sl Tab) 0.4 Mg) 1 tab Q5M PRN SL ANGINA; Start at 21:30 Epoetin Sean 32599 units 10,000 units MoWeFr@17 SC Last administered on 17:37; Admin Dose 10,000 UNITS; Start 01/19/17 at 17:00 Piperacillin Sod/ Tazobactam Sod (Zosyn 2.25gm/ 50ml (Pmx)) 50 ml @ 100 mls/hr Q6 IVPB Last administered on 01/26/17 12:13; Admin Dose 100 MLS/HR; Start 06/28 at 09:00 Insulin Glargine (Lantus) 25 unit DAILY@20 SC Last administered on 01/24/17 20 :22; Admin Dose 25 UNIT; Start 01/21/17 at 20:00 Lubiprostone (Amitiza) 24 mcg BID PO Last administered on 01/26/17 09:58; Admin Dose 24 MCG; Start 01/21/17 at 21:00 Lactulose (Enulose) 20 gm BID PRN PO CONSTIPATION; Start 01/22/17 at 13:00 Ondansetron HCl (Zofran Inj) 4 mg Q4H PRN IV NAUSEA AND/OR VOMITING Last administered on 01/25/17 11:20; Admin Dose 4 MG; Start 01/24/17 at 13:30 Lactulose 30 gm 30 gm QID PO Last administered on 01/26/17 09:57; Admin Dose 30 GM; Start 01/25/17 at 17:00 Ferric Sodium Gluconate Complex/ Sodium Chloride (Ferrlecit/NS) 110 ml @ 100 mls/hr Q24H IVPB Last administered on 01/26/17 10:45; Admin Dose 100 MLS/HR; Start 01/26/17 at 10:30; Stop 01/28/17 at 11:35 Rifaximin (Xifaxan) 550 mg BID PO Last administered on 01/26/17 09:58; Admin Dose 550 MG; Start 01/26/17 at 09:00 Assessment/Plan Chief Complaint/Hosp Course IMP: 1. Dyspnea--likely multifactorial, component of obesity pulmonary edema cirrhosis obstructive sleep apnea. 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 YEVGENIY 4. CKD RECS: 1. BD's 2. Fluid restriction 3. Encourage out of bed 4. Hemodialysis per nephrology Problems: GUERITA RESENDIZ [facility] Jan 26, 2017 15:33
[2017-01-26] MEDS: EPOETIN 10000 UNITS/1 ML INJ (ESRD) SC SCH (17:44)
--- NOTE | 2017-01-26 17:57 | CONS ---
Date/Time of Note Date/Time of Note DATE: 01/26/17 TIME: 17:56 Assessment/Plan Assessment/Plan Chief Complaint/Hosp Course 61-year-old male admitted for shortness of breath. Patient is a history of hepatitis C cirrhosis of liver, morbid obesity obstructive sleep apnea, diabetes mellitus and hypertension. Recent was brought to the emergency room for abdominal distention and shortness of breath. He was slightly nauseous. No GI bleeding no chest pain no or COIL ASSEMBLER problem no fever no chills. Problems: Additional Assessment/Plan Additional Assessment/Plan 1. Shortness of breath multifactorial 2. Morbid obesity 3. Cirrhosis of liver with portal hypertension 4. Mild ascites 5. Diabetes 6. Hypertension 7. Renal failure 8. Anasarca 9. Bacteremia staph positive in the blood culture 10. No evidence of spontaneous bacterial peritonitis 11. Severe constipation 12. Profound weakness Plan P.o. fluid restriction 1000 cc a day Low-sodium diet Monitor BUN and creatinine closely Weight loss Supplemental oxygen Dietary consult, reduce calorie intake to 1000-calorie a day Discussed with the patient and the family Continue antibiotic Diuretic as per creative art therapist. Amitiza Continue with the dialysis and remove fluid as tolerated by the patient Dulcolax tablet p.o. Discussed with the son [id number] Increase the dose of lactulose both for high ammonia and constipation Avoid sedatives and narcotic Consultation Date/Type/Reason Admit Date/Time Jan 07, 2017 at 10:13 Initial Consult Date 01/09/17 Type of Consultation: Pulmonary Referring Provider: JENY MORA MD 24 HR Interval Summary Free Text/Dictation As per the son patient is very sleepy Exam/Review of Systems Vital Signs Vitals Vital Signs Date Time Temp Pulse Resp B/P Pulse Ox O2 Delivery O2 Flow Rate FiO2 01/26/17 17:48 71 20 98 Nasal Cannula 5.0 01/26/17 11:24 98.2 118/60 Intake and Output 01/25/17 01/25/17 01/26/17 15:00 23:00 07:00 Intake Total 100 ml 250 ml Output Total 550 ml 400 ml Balance -450 ml -150 ml Exam Constitutional: alert, oriented, well developed Psych: nl mood/affect, no complaints Head: atraumatic, normocephalic Eyes: EOMI, PERRL, nl conjunctiva, nl lids, nl sclera ENMT: nl external ears & nose, nl lips & teeth, nl nasal mucosa & septum Neck: non-tender, supple Respiratory: clear to auscultation, normal air movement Cardiovascular: nl pulses, regular rate and rhythm Gastrointestinal: nl liver, spleen, non-tender, soft Musculoskeletal: nl extremities to inspection, nl gait and stance Extremities: normal pulses 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: COIL ASSEMBLER II-XII intact, nl mental status, nl speech, nl strength Skin: nl turgor, No rash or lesions Lymph: nl lymph nodes Results Result Diagram: 01/26/17 0608 01/26/17 0608 Results 24 hrs Laboratory Tests Test 01/25/17 20:51 01/26/17 02:15 01/26/17 06:08 01/26/17 08:24 Bedside Glucose 204 178 193 White Blood Count 11.2 H Red Blood Count 3.16 L Hemoglobin 7.8 L Hematocrit 28.1 L Mean Corpuscular Volume 88.9 Mean Corpuscular Hemoglobin 24.7 L Mean Corpuscular Hemoglobin Concent 27.8 L Red Cell Distribution Width 17.4 H Platelet Count 82 L Mean Platelet Volume 12.2 H Neutrophils % 79.9 H Lymphocytes % 9.9 L Monocytes % 5.3 Eosinophils % 3.3 Basophils % 0.1 Nucleated Red Blood Cells % 0.2 H Neutrophils # 8.9 H Lymphocytes # 1.1 Monocytes # 0.6 Eosinophils # 0.4 Basophils # 0.0 Nucleated Red Blood Cells # 0.0 Sodium Level 149 H Potassium Level 3.8 Chloride Level 105 Carbon Dioxide Level 31 Anion Gap 17 H Blood Urea Nitrogen 61 H Creatinine 3.49 H Glucose Level 189 Calcium Level 8.2 L Total Bilirubin 0.6 Direct Bilirubin 0.00 Indirect Bilirubin 0.6 Aspartate Amino Transf (AST/SGOT) 39 Alanine Aminotransferase (ALT/SGPT) 40 Alkaline Phosphatase 108 Total Protein 6.9 Albumin 3.0 L Globulin 3.90 H Albumin/Globulin Ratio 0.76 Test 01/26/17 11:02 01/26/17 12:12 01/26/17 17:39 Troponin I 0.076 Bedside Glucose 231 H 176 Medications Medications Current Medications Atorvastatin Calcium (Lipitor) 20 mg HS PO Last administered on 01/21/17t 20:35 ; Admin Dose 20 MG; Start 01/07/17 at 21:00 Miscellaneous Information 1 ea NOTE XX ; Start 01/07/17 at 17:30 Glucose (Glutose) 15 gm Q15M PRN PO DECREASED GLUCOSE; Start 01/07/17 at 17:30 Glucose (Glutose) 22.5 gm Q15M PRN PO DECREASED GLUCOSE; Start 01/07/17 at 17: 30 Dextrose (D50w Syringe) 25 ml Q15M PRN IV DECREASED GLUCOSE; Start 01/07/17 at 17:30 Dextrose (D50w Syringe) 50 ml Q15M PRN IV DECREASED GLUCOSE; Start 01/07/17 at 17:30 Glucagon (Glucagen) 1 mg Q15M PRN IM DECREASED GLUCOSE; Start 01/07/17 at 17:30 Glucose (Glutose) 15 gm Q15M PRN BUCCAL DECREASED GLUCOSE; Start 01/07/17 at 17 :30 Nifedipine (Procardia Xl) 30 mg DAILY PO Last administered on 01/26/17 09:58; Admin Dose 30 MG; Start 01/08/17 at 09:00 Docusate Sodium (Colace) 100 mg BID PRN PO CONSTIPATION Last administered on 11:56; Admin Dose 100 MG; Start 01/08/17 at 14:00 Acetaminophen (Tylenol Tab) 500 mg Q6H PRN PO PAIN AND OR ELEVATED TEMP Last administered on 01/25/17 11:09; Admin Dose 500 MG; Start 01/08/17 at 15:30 Acetaminophen/ Hydrocodone Bitart ([place] (5/325)) 1 tab Q4H PRN PO PAIN Last administered on 01/25/17 23:32; Admin Dose 1 TAB; Start 01/09/17 at 08:30 Diagnostic Test (Pha) (Accu-Chek) 1 ea 02 XX Last administered on 01/26/17 02: 24; Admin Dose 1 EA; Start 01/15/17 at 02:00 Insulin Aspart 10 unit 10 unit ONCE PRN SC ELEVATED GLUCOSE Last administered on 01/21/17 02:15; Admin Dose 10 UNIT; Start 01/17/17 at 02:00 Sodium Chloride (1/2 NS) 1,000 ml @ 40 mls/hr Q24H IV Last administered on 01/18 21:32; Admin Dose 75 MLS/HR; Start 01/17/17 at 17:00; Status Future Hold Nitroglycerin (Nitroglycerin (Sl Tab) 0.4 Mg) 1 tab Q5M PRN SL ANGINA; Start at 21:30 Epoetin Sean 90829 units 10,000 units MoWeFr@17 SC Last administered on 17:44; Admin Dose 10,000 UNITS; Start 01/19/17 at 17:00 Piperacillin Sod/ Tazobactam Sod (Zosyn 2.25gm/ 50ml (Pmx)) 50 ml @ 100 mls/hr Q6 IVPB Last administered on 01/26/17 17:46; Admin Dose 100 MLS/HR; Start 06/28 at 09:00 Insulin Glargine (Lantus) 25 unit DAILY@20 SC Last administered on 01/24/17 20 :22; Admin Dose 25 UNIT; Start 01/21/17 at 20:00 Lubiprostone (Amitiza) 24 mcg BID PO Last administered on 01/26/17 09:58; Admin Dose 24 MCG; Start 01/21/17 at 21:00 Lactulose (Enulose) 20 gm BID PRN PO CONSTIPATION; Start 01/22/17 at 13:00 Ondansetron HCl (Zofran Inj) 4 mg Q4H PRN IV NAUSEA AND/OR VOMITING Last administered on 01/25/17 11:20; Admin Dose 4 MG; Start 01/24/17 at 13:30 Lactulose 30 gm 30 gm QID PO Last administered on 01/26/17 17:40; Admin Dose 30 GM; Start 01/25/17 at 17:00 Ferric Sodium Gluconate Complex/ Sodium Chloride (Ferrlecit/NS) 110 ml @ 100 mls/hr Q24H IVPB Last administered on 01/26/17 10:45; Admin Dose 100 MLS/HR; Start 01/26/17 at 10:30; Stop 01/28/17 at 11:35 Rifaximin (Xifaxan) 550 mg BID PO Last administered on 01/26/17 09:58; Admin Dose 550 MG; Start 01/26/17 at 09:00 STUART STANLEY MD Jan 26, 2017 17:57
--- NOTE | 2017-01-26 18:49 | CONS ---
Date/Time of Note Date/Time of Note DATE: 01/26/17 TIME: 18:14 Assessment/Plan Assessment/Plan Chief Complaint/Hosp Course ASS. 1 Acute on Chronic kidney disease. Renal insufficiency significantly worsened over last few weeks and is now on Hemodialysis. 2. Cirrhosis of the liver secondary to hepatitis C, which has been treated and is negative for viral count. 3. Altered level of consciousness with elevated ammonia level. He is on lactulose and Xifaxan. 4. Obstructive sleep apnea. 5. Diabetes. 6. Hypertension. 7. Hyperlipidemia. 8. CHF 9. Anemia. 10.Edema and Ascitis Doubt autoimmune etiology. Probably will have negative cryoglobulins in view of negative Rheumatoid factor. Plan: 1. Continue present plan. 2. I'll discuss case tomorrow with consultants. Problems: Consultation Date/Type/Reason Admit Date/Time Jan 07, 2017 at 10:13 Date of Consultation: Jan 26, 2017 Type of Consultation: Rheumatology Hx of Present Illness 61 y/o man with mutiple medical problems including Cirrhosis of the liver secondary to hepatitis C, which has been treeated and is negative for viral count. Also with Chronic kidney disease. Renal insufficiency significantly worsened over last few weeks and is now on dyalysis. Also with Obstructive sleep apnea, Diabetes, Hypertension, hyperlipidemia CHF, anemia. Last week and a half also with altered level of consciousness with elevated ammonia level. He is on lactulose and Xifaxan. Patient unable to give history, but son denies history of rash or arthritis or Raynaud's in past. Subjective hx not possible: pt non-verbal Constitutional: disoriented Eyes: no complaints ENT: no complaints Respiratory: shortness of breath Cardiovascular: no complaints Gastrointestinal: other (blaoting) Genitourinary: no complaints Musculoskeletal: no complaints Skin: no complaints Neurologic: no complaints Psychological: confusion, No anxiety, No depression, No nl mood/affect, No no complaints, No other, No suicidal Past Medical History Medical History: congestive heart failure, diabetes, hepatitis, hypertension, renal disease Past Surgical History Past Surgical Hx: appendectomy Social History Alcohol Use: none Smoking Status: Former smoker Drug Use: none Exam/Review of Systems Vital Signs Vitals Vital Signs Date Time Temp Pulse Resp B/P Pulse Ox O2 Delivery O2 Flow Rate FiO2 01/26/17 17:48 71 20 98 Nasal Cannula 5.0 01/26/17 11:24 98.2 118/60 Intake and Output 01/25/17 01/25/17 01/26/17 15:00 23:00 07:00 Intake Total 100 ml 250 ml Output Total 550 ml 400 ml Balance -450 ml -150 ml Exam Gen: Morbidly obese man, with ascites. Confused. Skin Without acute rash. HEENT Without acute oral or ocular changes. Neck Supple Chest. Scattered crackles Heart RR Abdomen. Large ascites. No tenderness Ext. Edema. No cyanosis. No synovitis. Neurol Obtunded. Moves all extremities. Results Result Diagram: 01/26/17 0608 01/26/17 0608 Results 24 hrs Laboratory Tests Test 01/25/17 20:51 01/26/17 02:15 01/26/17 06:08 01/26/17 08:24 Bedside Glucose 204 178 193 White Blood Count 11.2 H Red Blood Count 3.16 L Hemoglobin 7.8 L Hematocrit 28.1 L Mean Corpuscular Volume 88.9 Mean Corpuscular Hemoglobin 24.7 L Mean Corpuscular Hemoglobin Concent 27.8 L Red Cell Distribution Width 17.4 H Platelet Count 82 L Mean Platelet Volume 12.2 H Neutrophils % 79.9 H Lymphocytes % 9.9 L Monocytes % 5.3 Eosinophils % 3.3 Basophils % 0.1 Nucleated Red Blood Cells % 0.2 H Neutrophils # 8.9 H Lymphocytes # 1.1 Monocytes # 0.6 Eosinophils # 0.4 Basophils # 0.0 Nucleated Red Blood Cells # 0.0 Sodium Level 149 H Potassium Level 3.8 Chloride Level 105 Carbon Dioxide Level 31 Anion Gap 17 H Blood Urea Nitrogen 61 H Creatinine 3.49 H Glucose Level 189 Calcium Level 8.2 L Total Bilirubin 0.6 Direct Bilirubin 0.00 Indirect Bilirubin 0.6 Aspartate Amino Transf (AST/SGOT) 39 Alanine Aminotransferase (ALT/SGPT) 40 Alkaline Phosphatase 108 Total Protein 6.9 Albumin 3.0 L Globulin 3.90 H Albumin/Globulin Ratio 0.76 Test 01/26/17 11:02 01/26/17 12:12 01/26/17 17:39 Troponin I 0.076 Bedside Glucose 231 H 176 Medications Medications Current Medications Atorvastatin Calcium (Lipitor) 20 mg HS PO Last administered on 01/21/17t 20:35 ; Admin Dose 20 MG; Start 01/07/17 at 21:00 Miscellaneous Information 1 ea NOTE XX ; Start 01/07/17 at 17:30 Glucose (Glutose) 15 gm Q15M PRN PO DECREASED GLUCOSE; Start 01/07/17 at 17:30 Glucose (Glutose) 22.5 gm Q15M PRN PO DECREASED GLUCOSE; Start 01/07/17 at 17: 30 Dextrose (D50w Syringe) 25 ml Q15M PRN IV DECREASED GLUCOSE; Start 01/07/17 at 17:30 Dextrose (D50w Syringe) 50 ml Q15M PRN IV DECREASED GLUCOSE; Start 01/07/17 at 17:30 Glucagon (Glucagen) 1 mg Q15M PRN IM DECREASED GLUCOSE; Start 01/07/17 at 17:30 Glucose (Glutose) 15 gm Q15M PRN BUCCAL DECREASED GLUCOSE; Start 01/07/17 at 17 :30 Nifedipine (Procardia Xl) 30 mg DAILY PO Last administered on 01/26/17 09:58; Admin Dose 30 MG; Start 01/08/17 at 09:00 Docusate Sodium (Colace) 100 mg BID PRN PO CONSTIPATION Last administered on 11:56; Admin Dose 100 MG; Start 01/08/17 at 14:00 Acetaminophen (Tylenol Tab) 500 mg Q6H PRN PO PAIN AND OR ELEVATED TEMP Last administered on 01/25/17 11:09; Admin Dose 500 MG; Start 01/08/17 at 15:30 Acetaminophen/ Hydrocodone Bitart ([place] (5/325)) 1 tab Q4H PRN PO PAIN Last administered on 01/25/17 23:32; Admin Dose 1 TAB; Start 01/09/17 at 08:30 Diagnostic Test (Pha) (Accu-Chek) 1 ea 02 XX Last administered on 01/26/17 02: 24; Admin Dose 1 EA; Start 01/15/17 at 02:00 Insulin Aspart 10 unit 10 unit ONCE PRN SC ELEVATED GLUCOSE Last administered on 01/21/17 02:15; Admin Dose 10 UNIT; Start 01/17/17 at 02:00 Sodium Chloride (1/2 NS) 1,000 ml @ 40 mls/hr Q24H IV Last administered on 01/18 21:32; Admin Dose 75 MLS/HR; Start 01/17/17 at 17:00; Status Future Hold Nitroglycerin (Nitroglycerin (Sl Tab) 0.4 Mg) 1 tab Q5M PRN SL ANGINA; Start at 21:30 Epoetin Sean 02026 units 10,000 units MoWeFr@17 SC Last administered on 17:44; Admin Dose 10,000 UNITS; Start 01/19/17 at 17:00 Piperacillin Sod/ Tazobactam Sod (Zosyn 2.25gm/ 50ml (Pmx)) 50 ml @ 100 mls/hr Q6 IVPB Last administered on 01/26/17 17:46; Admin Dose 100 MLS/HR; Start 06/28 at 09:00 Insulin Glargine (Lantus) 25 unit DAILY@20 SC Last administered on 01/24/17 20 :22; Admin Dose 25 UNIT; Start 01/21/17 at 20:00 Lubiprostone (Amitiza) 24 mcg BID PO Last administered on 01/26/17 09:58; Admin Dose 24 MCG; Start 01/21/17 at 21:00 Lactulose (Enulose) 20 gm BID PRN PO CONSTIPATION; Start 01/22/17 at 13:00 Ondansetron HCl (Zofran Inj) 4 mg Q4H PRN IV NAUSEA AND/OR VOMITING Last administered on 01/25/17 11:20; Admin Dose 4 MG; Start 01/24/17 at 13:30 Lactulose 30 gm 30 gm QID PO Last administered on 01/26/17 17:40; Admin Dose 30 GM; Start 01/25/17 at 17:00 Ferric Sodium Gluconate Complex/ Sodium Chloride (Ferrlecit/NS) 110 ml @ 100 mls/hr Q24H IVPB Last administered on 01/26/17 10:45; Admin Dose 100 MLS/HR; Start 01/26/17 at 10:30; Stop 01/28/17 at 11:35 Rifaximin (Xifaxan) 550 mg BID PO Last administered on 01/26/17 09:58; Admin Dose 550 MG; Start 01/26/17 at 09:00 KENDRICK MANTILLA MD Jan 26, 2017 18:29
[2017-01-26] MEDS: ATORVASTATIN 20 MG TAB PO SCH (21:00)
[2017-01-26] MEDS: INSULIN GLARGINE [LANtus] 3 ML PEN SC SCH (22:17)
[2017-01-26] MEDS: HYDROCODONE/APAP (5/325) TAB PO PRN (22:30)
[2017-01-27] VITALS (11 sets, daily range): BP systolic 109–161; BP diastolic 56–72; PULSE 69–84; RESP 16–21
[2017-01-27] MEDS: ACCU-CHEK XX SCH (02:00)
[2017-01-27] MEDS: PIPER-TAZO 2.25 GM (PMX) 50 ML IVPB SCH ×4 (06:29→20:29)
--- NOTE | 2017-01-27 07:17 | CONS ---
Date/Time of Note Date/Time of Note DATE: 01/27/17 TIME: 07:10 Assessment/Plan Assessment/Plan Chief Complaint/Hosp Course 1)Liver cirrhosis with portal HTN due to Hep C to repeat ammonia level 01/21 - ammonia level is mildly elevated at 57 consider lacutlose 01/26 - pt getting lactulose due to rising ammonia level but so far no BM's 01/27 - pt had one BM yesterday only will re-check ammonia level consider increasing lacutulose dose, pt also on rifaximin 2) CHF +/- pneumonia unable to tolerate lasix with worsening renal function 01/21 - in light of MSSA in blood and no open wounds or chronic IV in place, concern would be lung may be the portal of entry to start zosyn to cover for lung infection as well as the MSSA CXR does not show a lobar infiltrate 01/22 - continue with zosyn 01/23 - beta d glucan to look for invasive fungal disease was negative continue with zosyn 01/24 - stable on zosyn wbc is back to normal 01/26 - stable, WBC minimal elevated pt would likely benefit from a blood tx 3) r/o SBP pt to get paracentesis later today cefotaxime was started by the primary if fevers not improving will broaden the coverage 01/20 - pt to get paracentesis today continue with cefotaxime 01/21 - low number of PMN's in ascitic fluid, this in not the source for his MSSA d/c cefotaxime 4) new onset fever with leukocytosis pt has been on steroids but this does not explain the new fever the potential sources would include, ascitic fluid, lung urinalysis does not suggest an infection will order beta d glucan, aspergillus galactomannan, procalcitonin in a.m. will order LE dopplers to make sure no DVT has developed if cefotaxime does not improve his fever, wbc then will broaden coverage to include lung infection 01/20 - await paracentesis and a.m. labs vanco added due to GPC in blood cx fevers appear improved 01/21 - MSSA is present in blood and urine cx u/a did not show signs of infection and so the urine may only be seeded from the bacteremia will order repeat u/a at this time d/c vanco/cefotaxime and start zosyn since there is no skin breakdown or ulcers the lung becomes a more likely portal of entry 01/22 - fevers resolved continue with zosyn for bacteremia and possible pneumonia 5) MSSA bacteremia 01/20 - no central line in place, IV sites look ok await ID to see if true infection or a contaminant vanco started, will order repeat blood cx now 01/21 - true infection of blood with MSSA repeat blood cx from 01/20 is NGTD d/c vanco/cefotaxime and start zosyn check u/a 01/22 - MSSA in one set from 01/20 repeat blood cx today pt needs dialysis and likely he is no longer bacteremic so ok for dialysis line but if pt remains bacteremic it will need to be replaced 01/23 - pt to get dialysis line today and likely HD afterwards continue with zosyn 01/24 - repeat blood cx from 01/22 remain NGTD wbc is back to normal anticipate a 4 week course of treatment for this, will eventually change zosyn to ceftriaxone 01/26 - consider blood tx to help with effectiveness of antibiotics 01/27 - repeat blood cx remain neg from 01/22 and 01/25 6) anemia 01/26 - when pt does have a BM will get hemoccult to see if pt will need prophylaxis for SBP consider blood tx Problems: Consultation Date/Type/Reason Admit Date/Time Jan 07, 2017 at 10:13 Initial Consult Date 01/19/17 Type of Consultation: ID Referring Provider: JENY MORA MD 24 HR Interval Summary Free Text/Dictation spoke to pt is lethargic and confused, only can say he has pain but not able to say where he mostly moans no V had one BM yesterday despite the lactulose Exam/Review of Systems Vital Signs Vitals Vital Signs Date Time Temp Pulse Resp B/P Pulse Ox O2 Delivery O2 Flow Rate FiO2 01/27/17 04:28 69 01/27/17 03:51 98.3 19 109/61 93 01/26/17 21:29 Nasal Cannula 5.0 Intake and Output 01/26/17 01/26/17 01/27/17 15:00 23:00 07:00 Intake Total 1040 ml 100 ml Output Total 3600 ml 250 ml Balance -2560 ml -150 ml Exam pt moans but doesn't seem in pain only able to answer one question with yes-no reports he is still confused but breathing seems better Respiratory: clear to auscultation Cardiovascular: regular rate and rhythm Gastrointestinal: other (appears less distended), soft Results Result Diagram: 01/26/17 0608 01/26/17 0608 Results 24 hrs Laboratory Tests Test 01/26/17 08:24 01/26/17 11:02 01/26/17 12:12 01/26/17 17:39 Bedside Glucose 193 231 H 176 Troponin I 0.076 Test 01/26/17 21:59 Bedside Glucose 167 Medications Medications Current Medications Atorvastatin Calcium (Lipitor) 20 mg HS PO Last administered on 01/21/17 20:35 ; Admin Dose 20 MG; Start 01/07/17 at 21:00 Miscellaneous Information 1 ea NOTE XX ; Start 01/07/17 at 17:30 Glucose (Glutose) 15 gm Q15M PRN PO DECREASED GLUCOSE; Start 01/07/17 at 17:30 Glucose (Glutose) 22.5 gm Q15M PRN PO DECREASED GLUCOSE; Start 01/07/17 at 17: 30 Dextrose (D50w Syringe) 25 ml Q15M PRN IV DECREASED GLUCOSE; Start 01/07/17 at 17:30 Dextrose (D50w Syringe) 50 ml Q15M PRN IV DECREASED GLUCOSE; Start 01/07/17 at 17:30 Glucagon (Glucagen) 1 mg Q15M PRN IM DECREASED GLUCOSE; Start 01/07/17 at 17:30 Glucose (Glutose) 15 gm Q15M PRN BUCCAL DECREASED GLUCOSE; Start 01/07/17 at 17 :30 Nifedipine (Procardia Xl) 30 mg DAILY PO Last administered on 01/26/17 09:58; Admin Dose 30 MG; Start 01/08/17 at 09:00 Docusate Sodium (Colace) 100 mg BID PRN PO CONSTIPATION Last administered on 11:56; Admin Dose 100 MG; Start 01/08/17 at 14:00 Acetaminophen (Tylenol Tab) 500 mg Q6H PRN PO PAIN AND OR ELEVATED TEMP Last administered on 01/25/17 11:09; Admin Dose 500 MG; Start 01/08/17 at 15:30 Acetaminophen/ Hydrocodone Bitart ([place] (5/325)) 1 tab Q4H PRN PO PAIN Last administered on 01/26/17 22:30; Admin Dose 1 TAB; Start 01/09/17 at 08:30 Diagnostic Test (Pha) (Accu-Chek) 1 ea 02 XX Last administered on 01/26/17 02: 24; Admin Dose 1 EA; Start 01/15/17 at 02:00 Insulin Aspart 10 unit 10 unit ONCE PRN SC ELEVATED GLUCOSE Last administered on 01/21/17 02:15; Admin Dose 10 UNIT; Start 01/17/17 at 02:00 Sodium Chloride (1/2 NS) 1,000 ml @ 40 mls/hr Q24H IV Last administered on 01/18 21:32; Admin Dose 75 MLS/HR; Start 01/17/17 at 17:00; Status Future Hold Nitroglycerin (Nitroglycerin (Sl Tab) 0.4 Mg) 1 tab Q5M PRN SL ANGINA; Start at 21:30 Epoetin Sean 56560 units 10,000 units MoWeFr@17 SC Last administered on 17:44; Admin Dose 10,000 UNITS; Start 01/19/17 at 17:00 Piperacillin Sod/ Tazobactam Sod (Zosyn 2.25gm/ 50ml (Pmx)) 50 ml @ 100 mls/hr Q6 IVPB Last administered on 01/27/17 06:29; Admin Dose 100 MLS/HR; Start 06/28 at 09:00 Insulin Glargine (Lantus) 25 unit DAILY@20 SC Last administered on 01/26/17 22 :17; Admin Dose 25 UNIT; Start 01/21/17 at 20:00 Lubiprostone (Amitiza) 24 mcg BID PO Last administered on 01/26/17 21:56; Admin Dose 24 MCG; Start 01/21/17 at 21:00 Lactulose (Enulose) 20 gm BID PRN PO CONSTIPATION; Start 01/22/17 at 13:00 Ondansetron HCl (Zofran Inj) 4 mg Q4H PRN IV NAUSEA AND/OR VOMITING Last administered on 01/25/17 11:20; Admin Dose 4 MG; Start 01/24/17 at 13:30 Lactulose 30 gm 30 gm QID PO Last administered on 01/26/17 21:56; Admin Dose 30 GM; Start 01/25/17 at 17:00 Ferric Sodium Gluconate Complex/ Sodium Chloride (Ferrlecit/NS) 110 ml @ 100 mls/hr Q24H IVPB Last administered on 01/26/17 10:45; Admin Dose 100 MLS/HR; Start 01/26/17 at 10:30; Stop 01/28/17 at 11:35 Rifaximin (Xifaxan) 550 mg BID PO Last administered on 01/26/17 21:56; Admin Dose 550 MG; Start 01/26/17 at 09:00 DANYEL HART MD Jan 27, 2017 07:17
[2017-01-27 07:22] LABS: ADD SCAN DIFF NO
[2017-01-27 07:37] LABS: ABNORMAL IP MESSAGE 1; BASOPHILS % 0.1 % (0.0-2.0); EOSINOPHILS # 0.4 10^3/ul (0.0-0.5); EOSINOPHILS % 5.2 % (0.0-7.0); HEMATOCRIT 27.3 % (42.0-52.0); HEMOGLOBIN 7.7 g/dl (14.0-18.0); LYMPHOCYTES # 0.9 10^3/ul (0.8-2.9); LYMPHOCYTES % 10.3 % (15.0-51.0); MEAN CORPUSCULAR HEMOGLOBIN 24.6 pg (29.0-33.0); MEAN CORPUSCULAR HGB CONC 28.2 g/dl (32.0-37.0); MEAN CORPUSCULAR VOLUME 87.2 fl (82.0-101.0); MEAN PLATELET VOLUME 11.8 fl (7.4-10.4); MONOCYTE # 0.4 10^3/ul (0.3-0.9); MONOCYTES % 4.9 % (0.0-11.0); NEUTROPHIL # 6.6 10^3/ul (1.6-7.5); NEUTROPHILS % 77.9 % (39.0-77.0); NUCLEATED RED BLOOD CELLS% 0.4 /100WBC (0.0-0.0); PLATELET COUNT 71 10^3/UL (140-415); RED BLOOD COUNT 3.13 10^6/ul (4.70-6.10); RED CELL DISTRIBUTION WIDTH 17.5 % (11.5-14.5); WHITE BLOOD COUNT 8.5 10^3/ul (4.8-10.8)
[2017-01-27 07:49] LABS: ALBUMIN 2.6 g/dl (3.3-4.9); ALBUMIN/GLOBULIN RATIO 0.61; BILIRUBIN,INDIRECT 0.6 mg/dl (0-1.1); BILIRUBIN,TOTAL 0.6 mg/dl (0.2-1.3); CALCIUM 8.4 mg/dl (8.4-10.2); CREATININE 3.29 mg/dl (0.61-1.24); POTASSIUM 3.6 mmol/L (3.5-5.1); TOTAL PROTEIN 6.8 g/dl (6.1-8.1)
--- NOTE | 2017-01-27 08:46 | CONS ---
Date/Time of Note Date/Time of Note DATE: 01/27/17 TIME: 08:35 Assessment/Plan Assessment/Plan Chief Complaint/Hosp Course Impression: 1. Chronic kidney disease. The patient is now getting hemodialysis. He is scheduled for a hemodialysis treatment tomorrow 2. 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 Hypertension 4. Hyperlipidemia 5. Anemia 6. Congestive heart failure 7. Obstructive sleep apnea 8. Altered level of consciousness/hepatic encephalopathy, his ammonia level has been elevated. He is on lactulose and Xifaxan ; however he is unable to swallow . I would recommend that an NG tube be placed to give medication . Problems: Consultation Date/Type/Reason Admit Date/Time Jan 07, 2017 at 10:13 Initial Consult Date 01/19/17 Type of Consultation: ID Referring Provider: JENY MORA MD 24 HR Interval Summary Free Text/Dictation He is somnolent . Barely arousable . He is not swallowing and not taking medication . Constitutional: disoriented Exam/Review of Systems Vital Signs Vitals Vital Signs Date Time Temp Pulse Resp B/P Pulse Ox O2 Delivery O2 Flow Rate FiO2 01/27/17 08:26 69 01/27/17 07:22 99.1 16 122/56 95 01/26/17 21:29 Nasal Cannula 5.0 Intake and Output 01/26/17 01/26/17 01/27/17 15:00 23:00 07:00 Intake Total 1040 ml 100 ml Output Total 3600 ml 250 ml Balance -2560 ml -150 ml Exam he has asterixis and twitching . Constitutional: frail, non-verbal, obese Psych: confusion Respiratory: clear to auscultation, diminished breath sounds Cardiovascular: edema, regular rate and rhythm Gastrointestinal: ascites, distended, non-tender, soft Extremities: edema 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: lethargic, other Results Result Diagram: 01/27/17 0651 01/27/17 0651 Results 24 hrs Laboratory Tests Test 01/26/17 11:02 01/26/17 12:12 01/26/17 17:39 01/26/17 21:59 Troponin I 0.076 Bedside Glucose 231 H 176 167 Test 01/27/17 06:51 01/27/17 08:20 White Blood Count 8.5 # Red Blood Count 3.13 L Hemoglobin 7.7 L Hematocrit 27.3 L Mean Corpuscular Volume 87.2 Mean Corpuscular Hemoglobin 24.6 L Mean Corpuscular Hemoglobin Concent 28.2 L Red Cell Distribution Width 17.5 H Platelet Count 71 L Mean Platelet Volume 11.8 H Neutrophils % 77.9 H Lymphocytes % 10.3 L Monocytes % 4.9 Eosinophils % 5.2 Basophils % 0.1 Nucleated Red Blood Cells % 0.4 H Neutrophils # 6.6 Lymphocytes # 0.9 Monocytes # 0.4 Eosinophils # 0.4 Basophils # 0.0 Nucleated Red Blood Cells # 0.0 Sodium Level 146 H Potassium Level 3.6 Chloride Level 100 Carbon Dioxide Level 33 H Anion Gap 17 H Blood Urea Nitrogen 42 #H Creatinine 3.29 H Glucose Level 123 # Calcium Level 8.4 Total Bilirubin 0.6 Direct Bilirubin 0.00 Indirect Bilirubin 0.6 Aspartate Amino Transf (AST/SGOT) 35 Alanine Aminotransferase (ALT/SGPT) 37 Alkaline Phosphatase 99 Ammonia 70 H Total Protein 6.8 Albumin 2.6 L Globulin 4.20 H Albumin/Globulin Ratio 0.61 Bedside Glucose 161 Medications Medications Current Medications Atorvastatin Calcium (Lipitor) 20 mg HS PO Last administered on 01/21/17 20:35 ; Admin Dose 20 MG; Start 01/07/17 at 21:00 Miscellaneous Information 1 ea NOTE XX ; Start 01/07/17 at 17:30 Glucose (Glutose) 15 gm Q15M PRN PO DECREASED GLUCOSE; Start 01/07/17 at 17:30 Glucose (Glutose) 22.5 gm Q15M PRN PO DECREASED GLUCOSE; Start 01/07/17 at 17: 30 Dextrose (D50w Syringe) 25 ml Q15M PRN IV DECREASED GLUCOSE; Start 01/07/17 at 17:30 Dextrose (D50w Syringe) 50 ml Q15M PRN IV DECREASED GLUCOSE; Start 01/07/17 at 17:30 Glucagon (Glucagen) 1 mg Q15M PRN IM DECREASED GLUCOSE; Start 01/07/17 at 17:30 Glucose (Glutose) 15 gm Q15M PRN BUCCAL DECREASED GLUCOSE; Start 01/07/17 at 17 :30 Nifedipine (Procardia Xl) 30 mg DAILY PO Last administered on 01/26/17 09:58; Admin Dose 30 MG; Start 01/08/17 at 09:00 Docusate Sodium (Colace) 100 mg BID PRN PO CONSTIPATION Last administered on 11:56; Admin Dose 100 MG; Start 01/08/17 at 14:00 Acetaminophen (Tylenol Tab) 500 mg Q6H PRN PO PAIN AND OR ELEVATED TEMP Last administered on 01/25/17 11:09; Admin Dose 500 MG; Start 01/08/17 at 15:30 Acetaminophen/ Hydrocodone Bitart ([place] (5/325)) 1 tab Q4H PRN PO PAIN Last administered on 01/26/17 22:30; Admin Dose 1 TAB; Start 01/09/17 at 08:30 Diagnostic Test (Pha) (Accu-Chek) 1 ea 02 XX Last administered on 01/26/17 02: 24; Admin Dose 1 EA; Start 01/15/17 at 02:00 Insulin Aspart 10 unit 10 unit ONCE PRN SC ELEVATED GLUCOSE Last administered on 01/21/17 02:15; Admin Dose 10 UNIT; Start 01/17/17 at 02:00 Sodium Chloride (1/2 NS) 1,000 ml @ 40 mls/hr Q24H IV Last administered on 01/18 21:32; Admin Dose 75 MLS/HR; Start 01/17/17 at 17:00; Status Future Hold Nitroglycerin (Nitroglycerin (Sl Tab) 0.4 Mg) 1 tab Q5M PRN SL ANGINA; Start at 21:30 Epoetin Sean 09743 units 10,000 units MoWeFr@17 SC Last administered on 17:44; Admin Dose 10,000 UNITS; Start 01/19/17 at 17:00 Piperacillin Sod/ Tazobactam Sod (Zosyn 2.25gm/ 50ml (Pmx)) 50 ml @ 100 mls/hr Q6 IVPB Last administered on 01/27/17 06:29; Admin Dose 100 MLS/HR; Start 06/28 at 09:00 Insulin Glargine (Lantus) 25 unit DAILY@20 SC Last administered on 01/26/17 22 :17; Admin Dose 25 UNIT; Start 01/21/17 at 20:00 Lubiprostone (Amitiza) 24 mcg BID PO Last administered on 01/26/17 21:56; Admin Dose 24 MCG; Start 01/21/17 at 21:00 Lactulose (Enulose) 20 gm BID PRN PO CONSTIPATION; Start 01/22/17 at 13:00 Ondansetron HCl (Zofran Inj) 4 mg Q4H PRN IV NAUSEA AND/OR VOMITING Last administered on 01/25/17 11:20; Admin Dose 4 MG; Start 01/24/17 at 13:30 Lactulose 30 gm 30 gm QID PO Last administered on 01/26/17 21:56; Admin Dose 30 GM; Start 01/25/17 at 17:00 Ferric Sodium Gluconate Complex/ Sodium Chloride (Ferrlecit/NS) 110 ml @ 100 mls/hr Q24H IVPB Last administered on 01/26/17 10:45; Admin Dose 100 MLS/HR; Start 01/26/17 at 10:30; Stop 01/28/17 at 11:35 Rifaximin (Xifaxan) 550 mg BID PO Last administered on 01/26/17 21:56; Admin Dose 550 MG; Start 01/26/17 at 09:00 ANA MELENDEZ MD Jan 27, 2017 08:46
[2017-01-27] MEDS: INSULIN ASPART [NOVOLOG] 3 ML PEN SC SCH ×4 (08:51→20:50)
[2017-01-27] MEDS: RIFAXIMIN 550 MG TAB PO SCH ×2 (09:00→20:29)
[2017-01-27] MEDS: LUBIPROSTONE 24 MCG CAP PO SCH ×2 (09:00→20:29)
[2017-01-27] MEDS: LACTULOSE 30ML CUP PO SCH ×4 (09:00→20:28)
[2017-01-27] MEDS: NIFEdipine (XL) 30 MG TAB PO SCH (09:00)
[2017-01-27] MEDS: ALBUTEROL/IPRATROPIUM (NEB) 3 ML AMP HHN SCH ×4 (09:16→19:41)
[2017-01-27] MEDS: SOD FERRIC GLUC COMPLX 125 MG in SOD CHLORIDE 0.9% 100 ML IVPB SCH ×2 (10:13→16:28)
--- NOTE | 2017-01-27 11:24 | CONS ---
Date/Time of Note Date/Time of Note DATE: 01/27/17 TIME: 11:23 Consult Date/Type/Reason Admit Date/Time Jan 07, 2017 at 10:13 Initial Consult Date 01/09/17 Type of Consultation: Pulmonary Ordering Provider: JENY MORA MD Subjective Less alert this morning. Objective Vital Signs Date Time Temp Pulse Resp B/P Pulse Ox O2 Delivery O2 Flow Rate FiO2 01/27/17 09:16 86 24 97 Nasal Cannula 5.0 01/27/17 07:22 99.1 122/56 Intake and Output 01/26/17 01/26/17 01/27/17 15:00 23:00 07:00 Intake Total 1040 ml 100 ml Output Total 3600 ml 250 ml Balance -2560 ml -150 ml Exam GENERAL: Drowsy but arousable. VITAL SIGNS: per chart NECK: Supple. No JVD or lymphadenopathy. CARDIAC EXAM: S1, S2. 2/6 systolic ejection murmur. CHEST: Morbidly obese diminished air entry both lung ramos ABDOMEN: Soft, nontender. No guarding or rebound. EXTREMITIES: No cyanosis, clubbing or edema +2 NEUROLOGIC: Generalized weakness. No focal deficits. Appears comfortable at rest no acute distress Results/Medications Result Diagram: 01/27/17 0651 01/27/17 0651 Results 24 hrs Laboratory Tests Test 01/26/17 12:12 01/26/17 17:39 01/26/17 21:59 01/27/17 06:51 Bedside Glucose 231 H 176 167 White Blood Count 8.5 # Red Blood Count 3.13 L Hemoglobin 7.7 L Hematocrit 27.3 L Mean Corpuscular Volume 87.2 Mean Corpuscular Hemoglobin 24.6 L Mean Corpuscular Hemoglobin Concent 28.2 L Red Cell Distribution Width 17.5 H Platelet Count 71 L Mean Platelet Volume 11.8 H Neutrophils % 77.9 H Lymphocytes % 10.3 L Monocytes % 4.9 Eosinophils % 5.2 Basophils % 0.1 Nucleated Red Blood Cells % 0.4 H Neutrophils # 6.6 Lymphocytes # 0.9 Monocytes # 0.4 Eosinophils # 0.4 Basophils # 0.0 Nucleated Red Blood Cells # 0.0 Sodium Level 146 H Potassium Level 3.6 Chloride Level 100 Carbon Dioxide Level 33 H Anion Gap 17 H Blood Urea Nitrogen 42 #H Creatinine 3.29 H Glucose Level 123 # Calcium Level 8.4 Total Bilirubin 0.6 Direct Bilirubin 0.00 Indirect Bilirubin 0.6 Aspartate Amino Transf (AST/SGOT) 35 Alanine Aminotransferase (ALT/SGPT) 37 Alkaline Phosphatase 99 Ammonia 70 H Total Protein 6.8 Albumin 2.6 L Globulin 4.20 H Albumin/Globulin Ratio 0.61 Test 01/27/17 08:20 Bedside Glucose 161 Medications Current Medications Atorvastatin Calcium (Lipitor) 20 mg HS PO Last administered on 01/21/17 20:35 ; Admin Dose 20 MG; Start 01/07/17 at 21:00 Miscellaneous Information 1 ea NOTE XX ; Start 01/07/17 at 17:30 Glucose (Glutose) 15 gm Q15M PRN PO DECREASED GLUCOSE; Start 01/07/17 at 17:30 Glucose (Glutose) 22.5 gm Q15M PRN PO DECREASED GLUCOSE; Start 01/07/17 at 17: 30 Dextrose (D50w Syringe) 25 ml Q15M PRN IV DECREASED GLUCOSE; Start 01/07/17 at 17:30 Dextrose (D50w Syringe) 50 ml Q15M PRN IV DECREASED GLUCOSE; Start 01/07/17 at 17:30 Glucagon (Glucagen) 1 mg Q15M PRN IM DECREASED GLUCOSE; Start 01/07/17 at 17:30 Glucose (Glutose) 15 gm Q15M PRN BUCCAL DECREASED GLUCOSE; Start 01/07/17 at 17 :30 Nifedipine (Procardia Xl) 30 mg DAILY PO Last administered on 01/27/17 09:00; Admin Dose 30 MG; Start 01/08/17 at 09:00 Docusate Sodium (Colace) 100 mg BID PRN PO CONSTIPATION Last administered on 11:56; Admin Dose 100 MG; Start 01/08/17 at 14:00 Acetaminophen (Tylenol Tab) 500 mg Q6H PRN PO PAIN AND OR ELEVATED TEMP Last administered on 01/25/17 11:09; Admin Dose 500 MG; Start 01/08/17 at 15:30 Acetaminophen/ Hydrocodone Bitart ([place] (5/325)) 1 tab Q4H PRN PO PAIN Last administered on 01/26/17 22:30; Admin Dose 1 TAB; Start 01/09/17 at 08:30 Diagnostic Test (Pha) (Accu-Chek) 1 ea 02 XX Last administered on 01/26/17 02: 24; Admin Dose 1 EA; Start 01/15/17 at 02:00 Insulin Aspart 10 unit 10 unit ONCE PRN SC ELEVATED GLUCOSE Last administered on 01/21/17 02:15; Admin Dose 10 UNIT; Start 01/17/17 at 02:00 Sodium Chloride (1/2 NS) 1,000 ml @ 40 mls/hr Q24H IV Last administered on 01/18 21:32; Admin Dose 75 MLS/HR; Start 01/17/17 at 17:00; Status Future Hold Nitroglycerin (Nitroglycerin (Sl Tab) 0.4 Mg) 1 tab Q5M PRN SL ANGINA; Start at 21:30 Epoetin Sean 61547 units 10,000 units MoWeFr@17 SC Last administered on 17:44; Admin Dose 10,000 UNITS; Start 01/19/17 at 17:00 Piperacillin Sod/ Tazobactam Sod (Zosyn 2.25gm/ 50ml (Pmx)) 50 ml @ 100 mls/hr Q6 IVPB Last administered on 01/27/17 06:29; Admin Dose 100 MLS/HR; Start 06/28 at 09:00 Insulin Glargine (Lantus) 25 unit DAILY@20 SC Last administered on 01/26/17 22 :17; Admin Dose 25 UNIT; Start 01/21/17 at 20:00 Lubiprostone (Amitiza) 24 mcg BID PO Last administered on 01/27/17 09:00; Admin Dose 24 MCG; Start 01/21/17 at 21:00 Lactulose (Enulose) 20 gm BID PRN PO CONSTIPATION; Start 01/22/17 at 13:00 Ondansetron HCl (Zofran Inj) 4 mg Q4H PRN IV NAUSEA AND/OR VOMITING Last administered on 01/25/17 11:20; Admin Dose 4 MG; Start 01/24/17 at 13:30 Lactulose 30 gm 30 gm QID PO Last administered on 01/27/17 09:00; Admin Dose 30 GM; Start 01/25/17 at 17:00 Ferric Sodium Gluconate Complex/ Sodium Chloride (Ferrlecit/NS) 110 ml @ 100 mls/hr Q24H IVPB Last administered on 01/26/17 10:45; Admin Dose 100 MLS/HR; Start 01/26/17 at 10:30; Stop 01/28/17 at 11:35 Rifaximin (Xifaxan) 550 mg BID PO Last administered on 01/27/17 09:00; Admin Dose 550 MG; Start 01/26/17 at 09:00 Assessment/Plan Chief Complaint/Hosp Course IMP: 1. Dyspnea--likely multifactorial, component of obesity pulmonary edema cirrhosis obstructive sleep apnea. 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 YEVGENIY 4. CKD RECS: 1. BD's 2. Fluid restriction 3. Encourage out of bed 4. Hemodialysis per nephrology 5. Stat arterial blood gas Problems: GUERITA RESENDIZ MD, [facility] Jan 27, 2017 11:24
[2017-01-27 12:30] LABS: AADO2 Arterial 136.7 mmHg (7.0-24.0); Allen Test ACCEPTAB; Arterial Base Excess 5.7 mmol/L (-3.0-3); Arterial COHb 0.3 % (0.0-3.0); Arterial Fraction of Oxyhgb 91.1 % (93.0-99.0); Arterial MetHb 0.4 % (0.0-1.5); Arterial Total Hemglobin 9.1 g/dl (12.0-18.0); MODE NASAL CANNULA
[2017-01-27] MEDS ORDERED: LACTULOSE ENEMA 1,000 ML BTL PR ONE (13:00)
[2017-01-27] MEDS ORDERED: SOD CHLORIDE 0.9% 100 ML ONE (17:02)
--- NOTE | 2017-01-27 17:04 | RADRPT ---
PROCEDURE: XR Chest. CLINICAL INDICATION: Check PICC line position. TECHNIQUE: Single frontal view. COMPARISON: 01/27/2017. 1354 hours. FINDINGS: There is a left arm PICC line with the tip in the lower superior vena cava. There is mild pulmonary edema, unchanged. The heart is enlarged. There is a right internal jugular vein tunneled dialysis catheter with the t ip in the right atrium. There is no pleural effusion. There is no pneumothorax. IMPRESSION: 1. Left arm PICC line tip in satisfactory position. 2. No other change from the prior study done earlier the same day. RPTAT: QQ .Ulices Silva MD, MD Date Time Electronically viewed and signed by .Ulices Silva MD, MD on 01/27/2017 17:04 .R/
--- NOTE | 2017-01-27 17:06 | RADRPT ---
PROCEDURE: Ultrasound guidance for placement of needle in left upper extremity vein. CLINICAL INDICATION: Venous access. TECHNIQUE: Limited sonography of the left upper extremity was performed. Ultrasound images were recorded and s tored in the patient's medical record. COMPARISON: None. FINDINGS: The ultrasound images demonstrate a patent left upper extremity vein. The PICC line was inserted by the PICC line nurse. IMPRESSION: 1. Ultrasound guidance for a needle placement in a left upper extremity vein. 2. The left upper extremity vein is patent. RPTAT: QQ .Ulices Silva MD, MD Date Time Electronically viewed and signed by .Ulices Silva MD, MD on 01/27/2017 17:05 .R/
--- NOTE | 2017-01-27 17:07 | RADRPT ---
PROCEDURE: XR Chest. CLINICAL INDICATION: Check PICC line position. TECHNIQUE: Single frontal view. COMPARISON: 01/21/2017. FINDINGS: There is a left arm PICC line with the tip in the lower right atrium. There is mild pulmonary edema, unchanged. The heart is enlarged. There is a right internal jugular vein tunneled dialysis catheter with the ti p in the right atrium. There is no pleural effusion. There is no pneumothorax. IMPRESSION: 1. Left arm PICC line tip in lower right atrium. This should be repositioned. 2. Cardiomegaly. 3. Pulmonary edema. 4. Right IJ tunnel dialysis catheter in satisfactory position. RPTAT: QQ .Ulices Silva MD, MD Date Time Electronically viewed and signed by .Ulices Silva MD, MD on 01/27/2017 17:07 .R/
--- NOTE | 2017-01-27 17:26 | OPR ---
DATE OF OPERATION: 01/23/2017 PREOPERATIVE DIAGNOSIS: Chronic kidney disease, now with end- stage renal disease. POSTOPERATIVE DIAGNOSIS: Chronic kidney disease, now with end- stage renal disease. PROCEDURE PERFORMED: Insertion of right internal jugular vein Permacath for hemodialysis using ultrasound and fluoroscopic guidance. SURGEON: Sy Patiño MD ANESTHESIA: Local with sedation. ESTIMATED BLOOD LOSS: Minimal. COMPLICATIONS: No intraprocedural complications. INDICATIONS: This is a 61-year-old morbidly obese, diabetic gentleman with chronic kidney disease and now severe volume overload. He is going to need dialysis for a while. It is unclear if he will need long-term dialysis but I was asked by Dr. Castro to place a Permacath. PROCEDURE: The patient was brought to the operating room and placed on the table in supine position. The right neck and chest wall were prepped and draped in the usual sterile fashion. I began by using ultrasound to identify the right internal jugular vein. It was widely patent and very large. I infiltrated over the base of the neck using about 5 mL of 1 percent Xylocaine. I used the micropuncture needle to enter the vein under ultrasound guidance. A wire was inserted through the needle into the vein. The micropuncture sheath was advanced over the wire. I then advanced an 035 J wire down through the heart and into the inferior vena cava. I then made a small francisco in the skin over the wire, where the puncture site was. I then anesthetized the tract down onto the right chest wall below the clavicle, using another 10 mL of 1 percent Xylocaine and made a small francisco in the skin below the clavicle and then tunneled a 23 cm tunneled hemodialysis catheter through the tract leaving the cuff in the mid portion of the tract. I then placed serial dilators over the wire and then placed a large peel-away sheath over the wire and into the right atrium. I placed the end of the catheter through the peel-away sheath and then peeled the sheath away leaving the tips in the right atrium. It was in good position. I looked at the whole catheter. There were no kinks anywhere. It was an appropriate length. I then flushed it with heparinized saline and then placed 2 mL of 1000 unit per mL heparin in each port. A 4-0 Monocryl suture was used to close the puncture site in the neck and a 3-0 nylon suture was used to anchor the catheter into the skin. Sterile dressings were applied. The patient was transferred to the recovery room in stable condition. He tolerated the procedure well without any complications. Dictated By: Sy Patiño MD /[email or web address] /Document#: [id number] CC: King Castro MD; Ivan Brice MD;*EndCC*
--- NOTE | 2017-01-27 18:54 | CONS ---
Date/Time of Note Date/Time of Note DATE: 01/27/17 TIME: 18:52 Assessment/Plan Assessment/Plan Chief Complaint/Hosp Course 61-year-old male admitted for shortness of breath. Patient is a history of hepatitis C cirrhosis of liver, morbid obesity obstructive sleep apnea, diabetes mellitus and hypertension. Recent was brought to the emergency room for abdominal distention and shortness of breath. He was slightly nauseous. No GI bleeding no chest pain no or [employer] problem no fever no chills. Problems: Additional Assessment/Plan Additional Assessment/Plan 1. Shortness of breath multifactorial, much better 2. Morbid obesity 3. Cirrhosis of liver with portal hypertension 4. Mild ascites 5. Diabetes 6. Hypertension 7. Renal failure 8. Anasarca 9. Bacteremia staph positive in the blood culture 10. No evidence of spontaneous bacterial peritonitis 11. Severe constipation, better 12. Profound weakness, second to dialysis 13. Encephalopathy Plan P.o. fluid restriction 1000 cc a day Low-sodium diet Monitor BUN and creatinine closely Weight loss Supplemental oxygen Dietary consult, reduce calorie intake to 1000-calorie a day Discussed with the patient and the family Continue antibiotic Diuretic as per auto technician. Amitiza Continue with the dialysis and remove fluid as tolerated by the patient Dulcolax tablet p.o. Discussed with the son [id number] Increase the dose of lactulose both for high ammonia and constipation Avoid sedatives and narcotic Lactulose and an enema Consultation Date/Type/Reason Admit Date/Time Jan 07, 2017 at 10:13 Initial Consult Date 01/09/17 Type of Consultation: Pulmonary Referring Provider: JENY MORA MD 24 HR Interval Summary Free Text/Dictation Patient is lethargic Finally had a good bowel movement Exam/Review of Systems Vital Signs Vitals Vital Signs Date Time Temp Pulse Resp B/P Pulse Ox O2 Delivery O2 Flow Rate FiO2 01/27/17 17:23 85 24 95 Nasal Cannula 5.0 01/27/17 15:13 98.1 116/56 Intake and Output 01/26/17 01/26/17 01/27/17 15:00 23:00 07:00 Intake Total 1040 ml 100 ml Output Total 3600 ml 250 ml Balance -2560 ml -150 ml Exam Constitutional: alert, oriented, well developed Psych: nl mood/affect, no complaints Head: atraumatic, normocephalic Eyes: EOMI, PERRL, nl conjunctiva, nl lids, nl sclera ENMT: nl external ears & nose, nl lips & teeth, nl nasal mucosa & septum Neck: non-tender, supple Respiratory: clear to auscultation, normal air movement Cardiovascular: nl pulses, regular rate and rhythm Gastrointestinal: nl liver, spleen, non-tender, soft Musculoskeletal: nl extremities to inspection, nl gait and stance Extremities: normal pulses 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: [employer] II-XII intact, nl mental status, nl speech, nl strength Skin: nl turgor, No rash or lesions Lymph: nl lymph nodes Results Result Diagram: 01/27/17 0651 01/27/17 0651 Results 24 hrs Laboratory Tests Test 01/26/17 21:59 01/27/17 06:51 01/27/17 08:20 01/27/17 11:35 Bedside Glucose 167 161 167 White Blood Count 8.5 # Red Blood Count 3.13 L Hemoglobin 7.7 L Hematocrit 27.3 L Mean Corpuscular Volume 87.2 Mean Corpuscular Hemoglobin 24.6 L Mean Corpuscular Hemoglobin Concent 28.2 L Red Cell Distribution Width 17.5 H Platelet Count 71 L Mean Platelet Volume 11.8 H Neutrophils % 77.9 H Lymphocytes % 10.3 L Monocytes % 4.9 Eosinophils % 5.2 Basophils % 0.1 Nucleated Red Blood Cells % 0.4 H Neutrophils # 6.6 Lymphocytes # 0.9 Monocytes # 0.4 Eosinophils # 0.4 Basophils # 0.0 Nucleated Red Blood Cells # 0.0 Sodium Level 146 H Potassium Level 3.6 Chloride Level 100 Carbon Dioxide Level 33 H Anion Gap 17 H Blood Urea Nitrogen 42 #H Creatinine 3.29 H Glucose Level 123 # Calcium Level 8.4 Total Bilirubin 0.6 Direct Bilirubin 0.00 Indirect Bilirubin 0.6 Aspartate Amino Transf (AST/SGOT) 35 Alanine Aminotransferase (ALT/SGPT) 37 Alkaline Phosphatase 99 Ammonia 70 H Total Protein 6.8 Albumin 2.6 L Globulin 4.20 H Albumin/Globulin Ratio 0.61 Test 01/27/17 12:00 01/27/17 17:50 Blood Gas Specimen Source Blood arterial Arterial Blood Date Drawn 01/27/2017 12:20:38 PM Arterial Blood pH (Temp corrected) 7.416 Arterial Blood pCO2 (Temp correct) 49.3 H Arterial Blood pO2 (Temp corrected) 62.8 L Arterial Blood HCO3 31.0 H Arterial Blood Base Excess 5.7 H Arterial Blood Oxygen Saturation 91.7 L Oswaldo Test ACCEPTAB Arterial Blood Gas Puncture Site Right Brachial Arterial Blood Carboxyhemoglobin 0.3 Arterial Blood Methemoglobin 0.4 Blood Gas A-a O2 Differential 136.7 H Oxyhemoglobin Percent 91.1 L Total Hemoglobin 9.1 L Blood Gas Temperature 37.0 Blood Gas Modality NASAL CANNULA FiO2 36.0 Blood Gas Notified Whom JLD Blood Gas Notified Time 01/27/2017 12:30:13 PM Bedside Glucose 294 H Medications Medications Current Medications Atorvastatin Calcium (Lipitor) 20 mg HS PO Last administered on 01/21/17 20:35 ; Admin Dose 20 MG; Start 01/07/17 at 21:00 Miscellaneous Information 1 ea NOTE XX ; Start 01/07/17 at 17:30 Glucose (Glutose) 15 gm Q15M PRN PO DECREASED GLUCOSE; Start 01/07/17 at 17:30 Glucose (Glutose) 22.5 gm Q15M PRN PO DECREASED GLUCOSE; Start 01/07/17 at 17: 30 Dextrose (D50w Syringe) 25 ml Q15M PRN IV DECREASED GLUCOSE; Start 01/07/17 at 17:30 Dextrose (D50w Syringe) 50 ml Q15M PRN IV DECREASED GLUCOSE; Start 01/07/17 at 17:30 Glucagon (Glucagen) 1 mg Q15M PRN IM DECREASED GLUCOSE; Start 01/07/17 at 17:30 Glucose (Glutose) 15 gm Q15M PRN BUCCAL DECREASED GLUCOSE; Start 01/07/17 at 17 :30 Nifedipine (Procardia Xl) 30 mg DAILY PO Last administered on 01/27/17 09:00; Admin Dose 30 MG; Start 01/08/17 at 09:00 Docusate Sodium (Colace) 100 mg BID PRN PO CONSTIPATION Last administered on 11:56; Admin Dose 100 MG; Start 01/08/17 at 14:00 Acetaminophen (Tylenol Tab) 500 mg Q6H PRN PO PAIN AND OR ELEVATED TEMP Last administered on 01/25/17 11:09; Admin Dose 500 MG; Start 01/08/17 at 15:30 Diagnostic Test (Pha) (Accu-Chek) 1 ea 02 XX Last administered on 01/26/17 02: 24; Admin Dose 1 EA; Start 01/15/17 at 02:00 Insulin Aspart 10 unit 10 unit ONCE PRN SC ELEVATED GLUCOSE Last administered on 01/21/17 02:15; Admin Dose 10 UNIT; Start 01/17/17 at 02:00 Sodium Chloride (1/2 NS) 1,000 ml @ 40 mls/hr Q24H IV Last administered on 01/18 21:32; Admin Dose 75 MLS/HR; Start 01/17/17 at 17:00; Status Future Hold Nitroglycerin (Nitroglycerin (Sl Tab) 0.4 Mg) 1 tab Q5M PRN SL ANGINA; Start at 21:30 Epoetin Sean 89484 units 10,000 units MoWeFr@17 SC Last administered on 17:44; Admin Dose 10,000 UNITS; Start 01/19/17 at 17:00 Piperacillin Sod/ Tazobactam Sod (Zosyn 2.25gm/ 50ml (Pmx)) 50 ml @ 100 mls/hr Q6 IVPB Last administered on 01/27/17 15:24; Admin Dose 100 MLS/HR; Start 06/28 at 09:00 Insulin Glargine (Lantus) 25 unit DAILY@20 SC Last administered on 01/26/17 22 :17; Admin Dose 25 UNIT; Start 01/21/17 at 20:00 Lubiprostone (Amitiza) 24 mcg BID PO Last administered on 01/27/17 09:00; Admin Dose 24 MCG; Start 01/21/17 at 21:00 Lactulose (Enulose) 20 gm BID PRN PO CONSTIPATION; Start 01/22/17 at 13:00 Ondansetron HCl (Zofran Inj) 4 mg Q4H PRN IV NAUSEA AND/OR VOMITING Last administered on 01/25/17 11:20; Admin Dose 4 MG; Start 01/24/17 at 13:30 Lactulose 30 gm 30 gm QID PO Last administered on 01/27/17 17:49; Admin Dose 30 GM; Start 01/25/17 at 17:00 Ferric Sodium Gluconate Complex/ Sodium Chloride (Ferrlecit/NS) 110 ml @ 100 mls/hr Q24H IVPB Last administered on 01/27/17 16:28; Admin Dose 100 MLS/HR; Start 01/26/17 at 10:30; Stop 01/28/17 at 11:35 Rifaximin (Xifaxan) 550 mg BID PO Last administered on 01/27/17 09:00; Admin Dose 550 MG; Start 01/26/17 at 09:00 Lactulose (Lactulose Enema) 100 ml Q8 PA ; Start 01/27/17 at 22:00 IV Flush (NS 10 ml) 10 ml PRN PRN IV IV PROTOCOL; Start 01/27/17 at 15:00 STUART STANLEY MD Jan 27, 2017 18:54
[2017-01-27] MEDS: ATORVASTATIN 20 MG TAB PO SCH (20:29)
[2017-01-27] MEDS: INSULIN GLARGINE [LANtus] 3 ML PEN SC SCH (20:50)
[2017-01-27] MEDS: ACETAMINOPHEN 500 MG TAB PO PRN (22:34)
[2017-01-27] MEDS: LACTULOSE ENEMA 1,000 ML BTL PR SCH (23:07)
--- NOTE | 2017-01-27 23:47 | PN ---
Date/Time of Note Date/Time of Note DATE: 01/27/17 TIME: 23:47 Assessment/Plan Lines/Catheters IV Catheter Type (from Nrsg): PICC Line Sykes in Place (from Nrsg): Yes Assessment/Plan Chief Complaint/Hosp Course 1. [place] obesity: BMI 48 -encourage weight loss -nutrition optimization -eventual bariatric surgery when medically stable 2. CHF: dyspnea with pulmonary congestion; dyspnea improved -continue diuresis per cards/renal -medical optimization -HD 3. Elevated troponin: renal failure vs NSTEMI; invasive/stress testing not recommended at this time per cards -trend and monitor 4. Chronic kidney disease: HD -per renal 5. Diabetes: blood sugar labile; on long acting and short acting insulin -optimize blood sugar control 6. Hypertension: controlled -cont. antihypertensives 7. YEVGENIY: morbid obesity, dyspnea improved after HD -cpap 8. Leukocytosis: on steroids; (repeat blood cx: no growth) vs. dvt; no fevers; wbc improving, ascitic fluid (low PMN- not the source per ID); cultures no growth -abx per sensitivity 9. Dyspnea: multifactorial chf+ morbid obesity + ascites + YEVGENIY; improved; s/p dialysis -supportive -as above 10. Hyponatremia now with hypernatremia: s/p dialysis; improving - judicious fluid management 11. Anemia: CKD +/- chronic disease; doubt active bleed; h/h stable -monitor -transfuse as needed 12. Hypothyroidism; low tsh/t4 -medical optimization 13. Hypocalcemia: likely 2/2 poor nutrition + hypothyroid -optimize lytes -as above -medical optimization 14. Hypoalbuminemia: liver disease +/- malnutrition, improving -replete -nutrition optimization Patient seen and examined in collaboration with Dr. Marcelino Morales Problems: Subjective 24 Hr Interval Summary somnolent, easily awakens. Short of breath No c/o pain, cp, palpitations, cough , no fevers, chills, n/v/d, mccallum, sz. HD today Exam/Review of Systems Vital Signs Vitals Vital Signs Date Time Temp Pulse Resp B/P Pulse Ox O2 Delivery O2 Flow Rate FiO2 01/28/17 11:57 98.3 81 20 153/69 100 01/28/17 09:06 5.0 01/28/17 09:06 Nasal Cannula Intake and Output 7/01/27/17 01/28/17 15:00 23:00 07:00 Intake Total 500 ml 953 ml Output Total 200 ml Balance 300 ml 953 ml Exam Free Text/Dictation Constitutional: alert, obese, oriented,somnolent Psych: nl mood/affect, no complaints Head: atraumatic, normocephalic Eyes: nl conjunctiva, nl lids ENMT: mucosa pink and moist Neck: non-tender, supple; right IJ Respiratory: diminished breath sounds; no use of accessory muscles Cardiovascular: regular rate and rhythm Gastrointestinal: distended (mod), non-tender, soft Genitourinary - Male: nl penis, nl scrotum, No CVA tenderness; sykes, clear urine output Musculoskeletal: nl extremities to inspection Extremities: edema (ble 2+), normal pulses 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: no nl mental status, nl speech Skin: No rash or lesions Results Result Diagram: 01/28/17 0604 01/28/17 0604 ERLINDA VALLE NP Jan 27, 2017 23:47
[2017-01-28] VITALS (19 sets, daily range): BP systolic 114–153; BP diastolic 60–78; PULSE 78–88; RESP 18–22
[2017-01-28] MEDS: PIPER-TAZO 2.25 GM (PMX) 50 ML IVPB SCH ×4 (00:21→17:23)
[2017-01-28] MEDS ORDERED: ACETAMINOPHEN 500 MG TAB PO ONE (00:41)
[2017-01-28] MEDS: ACCU-CHEK XX SCH (02:23)
[2017-01-28] MEDS: LACTULOSE ENEMA 1,000 ML BTL PR SCH ×2 (05:46→13:24)
[2017-01-28 06:22] LABS: ADD SCAN DIFF NO
[2017-01-28 06:28] LABS: ABNORMAL IP MESSAGE 1; BASOPHILS % 0.1 % (0.0-2.0); EOSINOPHILS # 0.3 10^3/ul (0.0-0.5); EOSINOPHILS % 3.3 % (0.0-7.0); HEMATOCRIT 26.3 % (42.0-52.0); HEMOGLOBIN 7.7 g/dl (14.0-18.0); LYMPHOCYTES # 0.6 10^3/ul (0.8-2.9); LYMPHOCYTES % 6.5 % (15.0-51.0); MEAN CORPUSCULAR HEMOGLOBIN 25.2 pg (29.0-33.0); MEAN CORPUSCULAR HGB CONC 29.3 g/dl (32.0-37.0); MEAN CORPUSCULAR VOLUME 86.2 fl (82.0-101.0); MEAN PLATELET VOLUME 11.1 fl (7.4-10.4); MONOCYTE # 0.4 10^3/ul (0.3-0.9); MONOCYTES % 4.8 % (0.0-11.0); NEUTROPHIL # 7.3 10^3/ul (1.6-7.5); NEUTROPHILS % 84.2 % (39.0-77.0); NUCLEATED RED BLOOD CELLS # 0.1 10^3/ul (0.0-0.0); NUCLEATED RED BLOOD CELLS% 0.6 /100WBC (0.0-0.0); PLATELET COUNT 66 10^3/UL (140-415); RED BLOOD COUNT 3.05 10^6/ul (4.70-6.10); RED CELL DISTRIBUTION WIDTH 17.3 % (11.5-14.5); WHITE BLOOD COUNT 8.7 10^3/ul (4.8-10.8)
[2017-01-28 07:16] LABS: CALCIUM 8.2 mg/dl (8.4-10.2); CREATININE 4.45 mg/dl (0.61-1.24); POTASSIUM 3.1 mmol/L (3.5-5.1)
[2017-01-28] MEDS: NIFEdipine (XL) 30 MG TAB PO SCH (08:40)
[2017-01-28] MEDS: RIFAXIMIN 550 MG TAB PO SCH ×2 (08:40→21:14)
[2017-01-28] MEDS: LUBIPROSTONE 24 MCG CAP PO SCH ×2 (08:40→21:13)
[2017-01-28] MEDS: LACTULOSE 30ML CUP PO SCH ×2 (08:40→12:50)
[2017-01-28] MEDS: INSULIN ASPART [NOVOLOG] 3 ML PEN SC SCH ×4 (08:52→21:19)
[2017-01-28] MEDS: ALBUTEROL/IPRATROPIUM (NEB) 3 ML AMP HHN SCH ×4 (09:06→20:26)
[2017-01-28] MEDS ORDERED: POTASSIUM CHLORIDE (SR) 20 MEQ TAB PO STA (10:26)
[2017-01-28] MEDS: SOD FERRIC GLUC COMPLX 125 MG in SOD CHLORIDE 0.9% 100 ML IVPB SCH (10:58)
--- NOTE | 2017-01-28 12:14 | PN ---
Date/Time of Note Date/Time of Note DATE: 01/28/17 TIME: 12:07 Assessment/Plan Lines/Catheters IV Catheter Type (from Nrs): PICC Line Sykes in Place (from Nrsg): Yes Assessment/Plan Chief Complaint/Hosp Course 1. [place] obesity: BMI 48 -encourage weight loss -nutrition optimization -eventual bariatric surgery when medically stable 2. CHF: dyspnea with pulmonary congestion; dyspnea much improved -continue diuresis per cards/renal -medical optimization -HD 3. Elevated troponin: renal failure vs NSTEMI; invasive/stress testing not recommended at this time per cards -trend and monitor 4. Chronic kidney disease: cr worsening; HD -per renal 5. Diabetes: blood sugar labile; on long acting and short acting insulin -optimize blood sugar control 6. Hypertension: controlled -cont. antihypertensives 7. YEVGENIY: morbid obesity, dyspnea improved after HD -cpap 8. Leukocytosis: on steroids; (repeat blood cx: no growth) vs. dvt; no fevers; wbc improving, ascitic fluid (low PMN- not the source per ID): normalized -abx per sensitivity 9. Dyspnea: multifactorial chf+ morbid obesity + ascites + YEVGENIY; improved; s/p dialysis -supportive -as above 10. Hyponatremia now with hypernatremia: dialysis; improving - judicious fluid management 11. Anemia: CKD +/- chronic disease; doubt active bleed; h/h stable -monitor -transfuse as needed 12. Hypothyroidism; low tsh/t4 -medical optimization 13. Hypocalcemia: likely 2/2 poor nutrition + hypothyroid -optimize lytes -as above -medical optimization 14. Hypoalbuminemia: liver disease +/- malnutrition, improving -replete -nutrition optimization 15. Hepatic encephalopathy: ammonia high, on lactulose and Rifaximin Patient seen and examined in collaboration with Dr. Marcelino Morales Problems: Subjective 24 Hr Interval Summary somnolent, easily awakens. Shortness of breath improved. No c/o pain, cp, palpitations, cough, no fevers, chills, n/v/d, mccallum, sz. Exam/Review of Systems Vital Signs Vitals Vital Signs Date Time Temp Pulse Resp B/P Pulse Ox O2 Delivery O2 Flow Rate FiO2 01/28/17 11:57 98.3 81 20 153/69 100 01/28/17 09:06 5.0 01/28/17 09:06 Nasal Cannula Intake and Output 01/27/17 01/27/17 01/28/17 14:59 22:59 06:59 Intake Total 500 ml 953 ml Output Total 200 ml Balance 300 ml 953 ml Exam Free Text/Dictation Constitutional: alert, obese, oriented,somnolent Psych: nl mood/affect, no complaints Head: atraumatic, normocephalic Eyes: nl conjunctiva, nl lids ENMT: mucosa pink and moist Neck: non-tender, supple; right IJ Respiratory: diminished breath sounds; no use of accessory muscles Cardiovascular: regular rate and rhythm Gastrointestinal: distended (mod), non-tender, soft Genitourinary - Male: nl penis, nl scrotum, No CVA tenderness; sykes, clear urine output Musculoskeletal: nl extremities to inspection Extremities: edema (ble 2+), normal pulses 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: no nl mental status, nl speech Skin: No rash or lesions Results Result Diagram: 01/28/17 0604 01/28/17 0604 ERLINDA VALLE NP Jan 28, 2017 12:13
--- NOTE | 2017-01-28 13:02 | CONS ---
Date/Time of Note Date/Time of Note DATE: 01/28/17 TIME: 12:56 Consult Date/Type/Reason Admit Date/Time Jan 07, 2017 at 10:13 Initial Consult Date 01/26/17 Type of Consultation: Rheum Ordering Provider: JENY MORA MD Subjective Obtunded. Alert. Objective Vital Signs Date Time Temp Pulse Resp B/P Pulse Ox O2 Delivery O2 Flow Rate FiO2 01/28/17 12:24 79 24 97 Nasal Cannula 5.0 01/28/17 11:57 98.3 153/69 Intake and Output 01/27/17 01/27/17 01/28/17 15:00 23:00 07:00 Intake Total 500 ml 953 ml Output Total 200 ml Balance 300 ml 953 ml Exam Gen: Confused. Skin Without acute rash. HEENT Without acute oral or ocular changes. Neck Supple Chest. Scattered crackles Heart RR Abdomen. Distended, ascites. No tenderness Ext. Edema. No cyanosis. No synovitis. Neurol Obtunded. Moves all extremities. Results/Medications Result Diagram: 01/28/17 0604 01/28/17 0604 Results 24 hrs Laboratory Tests Test 01/27/17 17:50 01/27/17 20:33 01/28/17 01:00 01/28/17 01:25 Bedside Glucose 294 H 336 H 315 H Stool Occult Blood NEGATIVE Test 01/28/17 06:04 01/28/17 08:38 01/28/17 12:38 White Blood Count 8.7 Red Blood Count 3.05 L Hemoglobin 7.7 L Hematocrit 26.3 L Mean Corpuscular Volume 86.2 Mean Corpuscular Hemoglobin 25.2 L Mean Corpuscular Hemoglobin Concent 29.3 L Red Cell Distribution Width 17.3 H Platelet Count 66 L Mean Platelet Volume 11.1 H Neutrophils % 84.2 H Lymphocytes % 6.5 L Monocytes % 4.8 Eosinophils % 3.3 Basophils % 0.1 Nucleated Red Blood Cells % 0.6 H Neutrophils # 7.3 Lymphocytes # 0.6 L Monocytes # 0.4 Eosinophils # 0.3 Basophils # 0.0 Nucleated Red Blood Cells # 0.1 H Sodium Level 145 H Potassium Level 3.1 L Chloride Level 102 Carbon Dioxide Level 28 Anion Gap 18 H Blood Urea Nitrogen 50 H Creatinine 4.45 #H Glucose Level 276 #H Calcium Level 8.2 L Bedside Glucose 257 H 253 H Medications Current Medications Atorvastatin Calcium (Lipitor) 20 mg HS PO Last administered on 01/27/17 20:29 ; Admin Dose 20 MG; Start 01/07/17 at 21:00 Miscellaneous Information 1 ea NOTE XX ; Start 01/07/17 at 17:30 Glucose (Glutose) 15 gm Q15M PRN PO DECREASED GLUCOSE; Start 01/07/17 at 17:30 Glucose (Glutose) 22.5 gm Q15M PRN PO DECREASED GLUCOSE; Start 01/07/17 at 17: 30 Dextrose (D50w Syringe) 25 ml Q15M PRN IV DECREASED GLUCOSE; Start 01/07/17 at 17:30 Dextrose (D50w Syringe) 50 ml Q15M PRN IV DECREASED GLUCOSE; Start 01/07/17 at 17:30 Glucagon (Glucagen) 1 mg Q15M PRN IM DECREASED GLUCOSE; Start 01/07/17 at 17:30 Glucose (Glutose) 15 gm Q15M PRN BUCCAL DECREASED GLUCOSE; Start 01/07/17 at 17 :30 Nifedipine (Procardia Xl) 30 mg DAILY PO Last administered on 01/28/17 08:40; Admin Dose 30 MG; Start 01/08/17 at 09:00 Docusate Sodium (Colace) 100 mg BID PRN PO CONSTIPATION Last administered on 11:56; Admin Dose 100 MG; Start 01/08/17 at 14:00 Acetaminophen (Tylenol Tab) 500 mg Q6H PRN PO PAIN AND OR ELEVATED TEMP Last administered on 01/27/17 22:34; Admin Dose 500 MG; Start 01/08/17 at 15:30 Diagnostic Test (Pha) (Accu-Chek) 1 ea 02 XX Last administered on 01/28/17 02: 23; Admin Dose 1 EA; Start 01/15/17 at 02:00 Insulin Aspart 10 unit 10 unit ONCE PRN SC ELEVATED GLUCOSE Last administered on 01/21/17 02:15; Admin Dose 10 UNIT; Start 01/17/17 at 02:00 Sodium Chloride (1/2 NS) 1,000 ml @ 40 mls/hr Q24H IV Last administered on 01/18 21:32; Admin Dose 75 MLS/HR; Start 01/17/17 at 17:00; Status Future Hold Nitroglycerin (Nitroglycerin (Sl Tab) 0.4 Mg) 1 tab Q5M PRN SL ANGINA; Start at 21:30 Epoetin Sean 18033 units 10,000 units MoWeFr@17 SC Last administered on 17:44; Admin Dose 10,000 UNITS; Start 01/19/17 at 17:00 Piperacillin Sod/ Tazobactam Sod (Zosyn 2.25gm/ 50ml (Pmx)) 50 ml @ 100 mls/hr Q6 IVPB Last administered on 01/28/17 12:40; Admin Dose 100 MLS/HR; Start 06/28 at 09:00 Lubiprostone (Amitiza) 24 mcg BID PO Last administered on 01/28/17 08:40; Admin Dose 24 MCG; Start 01/21/17 at 21:00 Lactulose (Enulose) 20 gm BID PRN PO CONSTIPATION; Start 01/22/17 at 13:00 Ondansetron HCl (Zofran Inj) 4 mg Q4H PRN IV NAUSEA AND/OR VOMITING Last administered on 01/25/17 11:20; Admin Dose 4 MG; Start 01/24/17 at 13:30 Lactulose (Enulose) 30 gm QID PO Last administered on 01/28/17 08:40; Admin Dose 30 GM; Start 01/25/17 at 17:00 Rifaximin (Xifaxan) 550 mg BID PO Last administered on 01/28/17 08:40; Admin Dose 550 MG; Start 01/26/17 at 09:00 Lactulose (Lactulose Enema) 100 ml Q8 MD Last administered on 01/27/17 23:07; Admin Dose 100 ML; Start 01/27/17 at 22:00 IV Flush (NS 10 ml) 10 ml PRN PRN IV IV PROTOCOL; Start 01/27/17 at 15:00 Insulin Glargine (Lantus) 30 unit DAILY@20 SC ; Start 01/28/17 at 20:00 Assessment/Plan Chief Complaint/Hosp Course ASS. 1 Acute on Chronic kidney disease, on Hemodialysis. 2. Cirrhosis secondary to hepatitis C, which has been treated and is negative for viral count. 3. Altered level of consciousness with elevated ammonia level. He is on lactulose and Xifaxan. 4. Obstructive sleep apnea. 5. Diabetes. 6. Hypertension. 7. Hyperlipidemia. 8. CHF 9. Anemia. 10.Edema and Ascitis Doubt autoimmune etiology. Probably will have negative cryoglobulins in view of negative Rheumatoid factor. Plan: 1. Continue present plan. 2. Cryo. results pending Problems: KENDRICK MANTILLA MD Jan 28, 2017 13:01
[2017-01-28] MEDS: ONDANSETRON 4 MG INJ IV PRN (13:32)
[2017-01-28] MEDS ORDERED: POTASSIUM CHLORIDE 20 MEQ in SOD CHLORIDE 0.9% 100 ML IVPB ONE (14:00)
--- NOTE | 2017-01-28 14:08 | CONS ---
Date/Time of Note Date/Time of Note DATE: 01/28/17 TIME: 14:02 Assessment/Plan Assessment/Plan Chief Complaint/Hosp Course Impression: 1. Chronic kidney disease. The patient is scheduled for hemodialysis today . His serum potassium is low today. He received 1 dose orally and I will give another dose intravenously. 2. 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 He has been treated for hepatitis C virus. 3. Hypertension 4. Hyperlipidemia 5. Anemia 6. Congestive heart failure 7. Obstructive sleep apnea 8. Altered level of consciousness/hepatic encephalopathy, his ammonia level has been elevated. He seems more alert today. He does not have asterixis today. It seems that the medication he is taking is working. He will need to continue the medication. Problems: Consultation Date/Type/Reason Admit Date/Time Jan 07, 2017 at 10:13 Initial Consult Date 01/19/17 Type of Consultation: Rheum Referring Provider: JENY MORA MD 24 HR Interval Summary Free Text/Dictation He is much more awake today. He has had a number of bowel movements since yesterday after being able to take his lactulose and his other medicine. He is complaining of some abdominal pain today. He did have one episode of vomiting earlier. He did receive some oral potassium this morning because of a low serum potassium. Constitutional: poor po Exam/Review of Systems Vital Signs Vitals Vital Signs Date Time Temp Pulse Resp B/P Pulse Ox O2 Delivery O2 Flow Rate FiO2 01/28/17 12:24 79 24 97 Nasal Cannula 5.0 01/28/17 11:57 98.3 153/69 Intake and Output 01/27/17 01/27/17 01/28/17 15:00 23:00 07:00 Intake Total 500 ml 953 ml Output Total 200 ml Balance 300 ml 953 ml Exam He has less flank and lower extremity edema today. Constitutional: alert, frail, obese Respiratory: clear to auscultation, diminished breath sounds Cardiovascular: regular rate and rhythm Gastrointestinal: distended, tender Results Result Diagram: 01/28/17 0604 01/28/17 0604 Results 24 hrs Laboratory Tests Test 01/27/17 17:50 01/27/17 20:33 01/28/17 01:00 01/28/17 01:25 Bedside Glucose 294 H 336 H 315 H Stool Occult Blood NEGATIVE Test 01/28/17 06:04 01/28/17 08:38 01/28/17 12:38 White Blood Count 8.7 Red Blood Count 3.05 L Hemoglobin 7.7 L Hematocrit 26.3 L Mean Corpuscular Volume 86.2 Mean Corpuscular Hemoglobin 25.2 L Mean Corpuscular Hemoglobin Concent 29.3 L Red Cell Distribution Width 17.3 H Platelet Count 66 L Mean Platelet Volume 11.1 H Neutrophils % 84.2 H Lymphocytes % 6.5 L Monocytes % 4.8 Eosinophils % 3.3 Basophils % 0.1 Nucleated Red Blood Cells % 0.6 H Neutrophils # 7.3 Lymphocytes # 0.6 L Monocytes # 0.4 Eosinophils # 0.3 Basophils # 0.0 Nucleated Red Blood Cells # 0.1 H Sodium Level 145 H Potassium Level 3.1 L Chloride Level 102 Carbon Dioxide Level 28 Anion Gap 18 H Blood Urea Nitrogen 50 H Creatinine 4.45 #H Glucose Level 276 #H Calcium Level 8.2 L Bedside Glucose 257 H 253 H Medications Medications Current Medications Atorvastatin Calcium (Lipitor) 20 mg HS PO Last administered on 01/27/17 20:29 ; Admin Dose 20 MG; Start 01/07/17 at 21:00 Miscellaneous Information 1 ea NOTE XX ; Start 01/07/17 at 17:30 Glucose (Glutose) 15 gm Q15M PRN PO DECREASED GLUCOSE; Start 01/07/17 at 17:30 Glucose (Glutose) 22.5 gm Q15M PRN PO DECREASED GLUCOSE; Start 01/07/17 at 17: 30 Dextrose (D50w Syringe) 25 ml Q15M PRN IV DECREASED GLUCOSE; Start 01/07/17 at 17:30 Dextrose (D50w Syringe) 50 ml Q15M PRN IV DECREASED GLUCOSE; Start 01/07/17 at 17:30 Glucagon (Glucagen) 1 mg Q15M PRN IM DECREASED GLUCOSE; Start 01/07/17 at 17:30 Glucose (Glutose) 15 gm Q15M PRN BUCCAL DECREASED GLUCOSE; Start 01/07/17 at 17 :30 Nifedipine (Procardia Xl) 30 mg DAILY PO Last administered on 01/28/17 08:40; Admin Dose 30 MG; Start 01/08/17 at 09:00 Docusate Sodium (Colace) 100 mg BID PRN PO CONSTIPATION Last administered on 11:56; Admin Dose 100 MG; Start 01/08/17 at 14:00 Acetaminophen (Tylenol Tab) 500 mg Q6H PRN PO PAIN AND OR ELEVATED TEMP Last administered on 01/27/17 22:34; Admin Dose 500 MG; Start 01/08/17 at 15:30 Diagnostic Test (Pha) (Accu-Chek) 1 ea 02 XX Last administered on 01/28/17 02: 23; Admin Dose 1 EA; Start 01/15/17 at 02:00 Insulin Aspart 10 unit 10 unit ONCE PRN SC ELEVATED GLUCOSE Last administered on 01/21/17 02:15; Admin Dose 10 UNIT; Start 01/17/17 at 02:00 Sodium Chloride (1/2 NS) 1,000 ml @ 40 mls/hr Q24H IV Last administered on 01/18 21:32; Admin Dose 75 MLS/HR; Start 01/17/17 at 17:00; Status Future Hold Nitroglycerin (Nitroglycerin (Sl Tab) 0.4 Mg) 1 tab Q5M PRN SL ANGINA; Start at 21:30 Epoetin Sean 30123 units 10,000 units MoWeFr@17 SC Last administered on 17:44; Admin Dose 10,000 UNITS; Start 01/19/17 at 17:00 Piperacillin Sod/ Tazobactam Sod (Zosyn 2.25gm/ 50ml (Pmx)) 50 ml @ 100 mls/hr Q6 IVPB Last administered on 01/28/17 12:40; Admin Dose 100 MLS/HR; Start 06/28 at 09:00 Lubiprostone (Amitiza) 24 mcg BID PO Last administered on 01/28/17 08:40; Admin Dose 24 MCG; Start 01/21/17 at 21:00 Lactulose (Enulose) 20 gm BID PRN PO CONSTIPATION; Start 01/22/17 at 13:00 Ondansetron HCl (Zofran Inj) 4 mg Q4H PRN IV NAUSEA AND/OR VOMITING Last administered on 01/28/17 13:32; Admin Dose 4 MG; Start 01/24/17 at 13:30 Lactulose (Enulose) 30 gm QID PO Last administered on 01/28/17 08:40; Admin Dose 30 GM; Start 01/25/17 at 17:00 Rifaximin (Xifaxan) 550 mg BID PO Last administered on 01/28/17 08:40; Admin Dose 550 MG; Start 01/26/17 at 09:00 Lactulose (Lactulose Enema) 100 ml Q8 VT Last administered on 01/27/17 23:07; Admin Dose 100 ML; Start 01/27/17 at 22:00 IV Flush (NS 10 ml) 10 ml PRN PRN IV IV PROTOCOL; Start 01/27/17 at 15:00 Insulin Glargine 30 unit 30 unit DAILY@20 SC ; Start 01/28/17 at 20:00 Potassium Chloride/Sodium Chloride (KCl/NS) 110 ml @ 55 mls/hr ONCE ONCE IVPB ; Start 01/28/17 at 14:00; Stop 01/28/17 at 15:59 ANA MELENDEZ MD Jan 28, 2017 14:08
--- NOTE | 2017-01-28 14:46 | CONS ---
Date/Time of Note Date/Time of Note DATE: 01/28/17 TIME: 14:43 Consult Date/Type/Reason Admit Date/Time Jan 07, 2017 at 10:13 Initial Consult Date 01/09/17 Type of Consultation: Pulmonary Ordering Provider: JENY MORA MD Subjective Fluctuating mentation, elevated ammonia noted Objective Vital Signs Date Time Temp Pulse Resp B/P Pulse Ox O2 Delivery O2 Flow Rate FiO2 01/28/17 12:24 79 24 97 Nasal Cannula 5.0 01/28/17 11:57 98.3 153/69 Intake and Output 01/27/17 01/27/17 01/28/17 15:00 23:00 07:00 Intake Total 500 ml 953 ml Output Total 200 ml Balance 300 ml 953 ml Exam GENERAL: Drowsy but arousable. VITAL SIGNS: per chart NECK: Supple. No JVD or lymphadenopathy. CARDIAC EXAM: S1, S2. 2/6 systolic ejection murmur. CHEST: Morbidly obese diminished air entry both lung ramos ABDOMEN: Soft, nontender. No guarding or rebound. EXTREMITIES: No cyanosis, clubbing or edema +2 NEUROLOGIC: Generalized weakness. No focal deficits. Appears comfortable at rest no acute distress Results/Medications Result Diagram: 01/28/17 0604 01/28/17 0604 Results 24 hrs Laboratory Tests Test 01/27/17 17:50 01/27/17 20:33 01/28/17 01:00 01/28/17 01:25 Bedside Glucose 294 H 336 H 315 H Stool Occult Blood NEGATIVE Test 01/28/17 06:04 01/28/17 08:38 01/28/17 12:38 White Blood Count 8.7 Red Blood Count 3.05 L Hemoglobin 7.7 L Hematocrit 26.3 L Mean Corpuscular Volume 86.2 Mean Corpuscular Hemoglobin 25.2 L Mean Corpuscular Hemoglobin Concent 29.3 L Red Cell Distribution Width 17.3 H Platelet Count 66 L Mean Platelet Volume 11.1 H Neutrophils % 84.2 H Lymphocytes % 6.5 L Monocytes % 4.8 Eosinophils % 3.3 Basophils % 0.1 Nucleated Red Blood Cells % 0.6 H Neutrophils # 7.3 Lymphocytes # 0.6 L Monocytes # 0.4 Eosinophils # 0.3 Basophils # 0.0 Nucleated Red Blood Cells # 0.1 H Sodium Level 145 H Potassium Level 3.1 L Chloride Level 102 Carbon Dioxide Level 28 Anion Gap 18 H Blood Urea Nitrogen 50 H Creatinine 4.45 #H Glucose Level 276 #H Calcium Level 8.2 L Bedside Glucose 257 H 253 H Medications Current Medications Atorvastatin Calcium (Lipitor) 20 mg HS PO Last administered on 01/27/17 20:29 ; Admin Dose 20 MG; Start 01/07/17 at 21:00 Miscellaneous Information 1 ea NOTE XX ; Start 01/07/17 at 17:30 Glucose (Glutose) 15 gm Q15M PRN PO DECREASED GLUCOSE; Start 01/07/17 at 17:30 Glucose (Glutose) 22.5 gm Q15M PRN PO DECREASED GLUCOSE; Start 01/07/17 at 17: 30 Dextrose (D50w Syringe) 25 ml Q15M PRN IV DECREASED GLUCOSE; Start 01/07/17 at 17:30 Dextrose (D50w Syringe) 50 ml Q15M PRN IV DECREASED GLUCOSE; Start 01/07/17 at 17:30 Glucagon (Glucagen) 1 mg Q15M PRN IM DECREASED GLUCOSE; Start 01/07/17 at 17:30 Glucose (Glutose) 15 gm Q15M PRN BUCCAL DECREASED GLUCOSE; Start 01/07/17 at 17 :30 Nifedipine (Procardia Xl) 30 mg DAILY PO Last administered on 01/28/17 08:40; Admin Dose 30 MG; Start 01/08/17 at 09:00 Docusate Sodium (Colace) 100 mg BID PRN PO CONSTIPATION Last administered on 11:56; Admin Dose 100 MG; Start 01/08/17 at 14:00 Acetaminophen (Tylenol Tab) 500 mg Q6H PRN PO PAIN AND OR ELEVATED TEMP Last administered on 01/27/17 22:34; Admin Dose 500 MG; Start 01/08/17 at 15:30 Diagnostic Test (Pha) (Accu-Chek) 1 ea 02 XX Last administered on 01/28/17 02: 23; Admin Dose 1 EA; Start 01/15/17 at 02:00 Insulin Aspart 10 unit 10 unit ONCE PRN SC ELEVATED GLUCOSE Last administered on 01/21/17 02:15; Admin Dose 10 UNIT; Start 01/17/17 at 02:00 Sodium Chloride (1/2 NS) 1,000 ml @ 40 mls/hr Q24H IV Last administered on 01/18 21:32; Admin Dose 75 MLS/HR; Start 01/17/17 at 17:00; Status Future Hold Nitroglycerin (Nitroglycerin (Sl Tab) 0.4 Mg) 1 tab Q5M PRN SL ANGINA; Start at 21:30 Epoetin Sean 76619 units 10,000 units MoWeFr@17 SC Last administered on 17:44; Admin Dose 10,000 UNITS; Start 01/19/17 at 17:00 Piperacillin Sod/ Tazobactam Sod (Zosyn 2.25gm/ 50ml (Pmx)) 50 ml @ 100 mls/hr Q6 IVPB Last administered on 01/28/17 12:40; Admin Dose 100 MLS/HR; Start 06/28 at 09:00 Lubiprostone (Amitiza) 24 mcg BID PO Last administered on 01/28/17 08:40; Admin Dose 24 MCG; Start 01/21/17 at 21:00 Lactulose (Enulose) 20 gm BID PRN PO CONSTIPATION; Start 01/22/17 at 13:00 Ondansetron HCl (Zofran Inj) 4 mg Q4H PRN IV NAUSEA AND/OR VOMITING Last administered on 01/28/17 13:32; Admin Dose 4 MG; Start 01/24/17 at 13:30 Lactulose (Enulose) 30 gm QID PO Last administered on 01/28/17 08:40; Admin Dose 30 GM; Start 01/25/17 at 17:00 Rifaximin (Xifaxan) 550 mg BID PO Last administered on 01/28/17 08:40; Admin Dose 550 MG; Start 01/26/17 at 09:00 Lactulose (Lactulose Enema) 100 ml Q8 SD Last administered on 01/27/17 23:07; Admin Dose 100 ML; Start 01/27/17 at 22:00 IV Flush (NS 10 ml) 10 ml PRN PRN IV IV PROTOCOL; Start 01/27/17 at 15:00 Insulin Glargine 30 unit 30 unit DAILY@20 SC ; Start 01/28/17 at 20:00 Potassium Chloride/Sodium Chloride (KCl/NS) 110 ml @ 55 mls/hr ONCE ONCE IVPB ; Start 01/28/17 at 14:00; Stop 01/28/17 at 15:59 Assessment/Plan Chief Complaint/Hosp Course IMP: 1. Dyspnea--likely multifactorial, component of obesity pulmonary edema cirrhosis obstructive sleep apnea. No evidence of CO2 retention on ABG 2. 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 YEVGENIY 4. CKD now on hemodialysis RECS: 1. BD's 2. Aspiration precautions 3. Encourage out of bed 4. Hemodialysis per nephrology 5. Continue rifaximin and lactulose Problems: GUERITA RESENDIZ MD, [facility] Jan 28, 2017 14:45
--- NOTE | 2017-01-28 18:08 | CONS ---
Date/Time of Note Date/Time of Note DATE: 01/28/17 TIME: 18:06 Assessment/Plan Assessment/Plan Chief Complaint/Hosp Course 61-year-old male admitted for shortness of breath. Patient is a history of hepatitis C cirrhosis of liver, morbid obesity obstructive sleep apnea, diabetes mellitus and hypertension. Recent was brought to the emergency room for abdominal distention and shortness of breath. He was slightly nauseous. No GI bleeding no chest pain no or [employer] problem no fever no chills. Problems: Additional Assessment/Plan Additional Assessment/Plan 1. Shortness of breath multifactorial, much better 2. Morbid obesity 3. Cirrhosis of liver with portal hypertension 4. Mild ascites 5. Diabetes 6. Hypertension 7. Renal failure 8. Anasarca 9. Bacteremia staph positive in the blood culture 10. No evidence of spontaneous bacterial peritonitis 11. Severe constipation, better 12. Profound weakness, second to dialysis 13. Encephalopathy Plan P.o. fluid restriction 1000 cc a day Low-sodium diet Monitor BUN and creatinine closely Weight loss Supplemental oxygen Dietary consult, reduce calorie intake to 1000-calorie a day Discussed with the patient and the family Continue antibiotic Diuretic as per recovery auditor. Continue with the dialysis and remove fluid as tolerated by the patient Discussed with the son [id number] Increase the dose of lactulose both for high ammonia and constipation Avoid sedatives and narcotic Lactulose enema on a needed basis Consultation Date/Type/Reason Admit Date/Time Jan 07, 2017 at 10:13 Initial Consult Date 01/09/17 Type of Consultation: Pulmonary Referring Provider: JENY MORA MD 24 HR Interval Summary Free Text/Dictation Had multiple bowel movements with lactulose enemas Constitutional: improved Exam/Review of Systems Vital Signs Vitals Vital Signs Date Time Temp Pulse Resp B/P Pulse Ox O2 Delivery O2 Flow Rate FiO2 01/28/17 17:51 81 22 95 Nasal Cannula 5.0 01/28/17 15:54 98.6 151/69 Intake and Output 01/27/17 01/27/17 01/28/17 15:00 23:00 07:00 Intake Total 500 ml 953 ml Output Total 200 ml Balance 300 ml 953 ml Exam Constitutional: alert, oriented, well developed Psych: nl mood/affect, no complaints Head: atraumatic, normocephalic Eyes: EOMI, PERRL, nl conjunctiva, nl lids, nl sclera ENMT: nl external ears & nose, nl lips & teeth, nl nasal mucosa & septum Neck: non-tender, supple Respiratory: clear to auscultation, normal air movement Cardiovascular: nl pulses, regular rate and rhythm Gastrointestinal: nl liver, spleen, non-tender, soft Musculoskeletal: nl extremities to inspection, nl gait and stance Extremities: normal pulses 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: [employer] II-XII intact, nl mental status, nl speech, nl strength Skin: nl turgor, No rash or lesions Lymph: nl lymph nodes Results Result Diagram: 01/28/17 0604 01/28/17 0604 Results 24 hrs Laboratory Tests Test 01/27/17 20:33 01/28/17 01:00 01/28/17 01:25 01/28/17 06:04 Bedside Glucose 336 H 315 H Stool Occult Blood NEGATIVE White Blood Count 8.7 Red Blood Count 3.05 L Hemoglobin 7.7 L Hematocrit 26.3 L Mean Corpuscular Volume 86.2 Mean Corpuscular Hemoglobin 25.2 L Mean Corpuscular Hemoglobin Concent 29.3 L Red Cell Distribution Width 17.3 H Platelet Count 66 L Mean Platelet Volume 11.1 H Neutrophils % 84.2 H Lymphocytes % 6.5 L Monocytes % 4.8 Eosinophils % 3.3 Basophils % 0.1 Nucleated Red Blood Cells % 0.6 H Neutrophils # 7.3 Lymphocytes # 0.6 L Monocytes # 0.4 Eosinophils # 0.3 Basophils # 0.0 Nucleated Red Blood Cells # 0.1 H Sodium Level 145 H Potassium Level 3.1 L Chloride Level 102 Carbon Dioxide Level 28 Anion Gap 18 H Blood Urea Nitrogen 50 H Creatinine 4.45 #H Glucose Level 276 #H Calcium Level 8.2 L Test 01/28/17 08:38 01/28/17 12:38 01/28/17 17:21 Bedside Glucose 257 H 253 H 204 Medications Medications Current Medications Atorvastatin Calcium (Lipitor) 20 mg HS PO Last administered on 01/27/17t 20:29 ; Admin Dose 20 MG; Start 01/07/17 at 21:00 Miscellaneous Information 1 ea NOTE XX ; Start 01/07/17 at 17:30 Glucose (Glutose) 15 gm Q15M PRN PO DECREASED GLUCOSE; Start 01/07/17 at 17:30 Glucose (Glutose) 22.5 gm Q15M PRN PO DECREASED GLUCOSE; Start 01/07/17 at 17: 30 Dextrose (D50w Syringe) 25 ml Q15M PRN IV DECREASED GLUCOSE; Start 01/07/17 at 17:30 Dextrose (D50w Syringe) 50 ml Q15M PRN IV DECREASED GLUCOSE; Start 01/07/17 at 17:30 Glucagon (Glucagen) 1 mg Q15M PRN IM DECREASED GLUCOSE; Start 01/07/17 at 17:30 Glucose (Glutose) 15 gm Q15M PRN BUCCAL DECREASED GLUCOSE; Start 01/07/17 at 17 :30 Nifedipine (Procardia Xl) 30 mg DAILY PO Last administered on 01/28/17 08:40; Admin Dose 30 MG; Start 01/08/17 at 09:00 Docusate Sodium (Colace) 100 mg BID PRN PO CONSTIPATION Last administered on 11:56; Admin Dose 100 MG; Start 01/08/17 at 14:00 Acetaminophen (Tylenol Tab) 500 mg Q6H PRN PO PAIN AND OR ELEVATED TEMP Last administered on 01/27/17 22:34; Admin Dose 500 MG; Start 01/08/17 at 15:30 Diagnostic Test (Pha) (Accu-Chek) 1 ea 02 XX Last administered on 01/28/17 02: 23; Admin Dose 1 EA; Start 01/15/17 at 02:00 Insulin Aspart 10 unit 10 unit ONCE PRN SC ELEVATED GLUCOSE Last administered on 01/21/17 02:15; Admin Dose 10 UNIT; Start 01/17/17 at 02:00 Sodium Chloride (1/2 NS) 1,000 ml @ 40 mls/hr Q24H IV Last administered on 01/18 21:32; Admin Dose 75 MLS/HR; Start 01/17/17 at 17:00; Status Future Hold Nitroglycerin (Nitroglycerin (Sl Tab) 0.4 Mg) 1 tab Q5M PRN SL ANGINA; Start at 21:30 Epoetin Sean 40586 units 10,000 units MoWeFr@17 SC Last administered on 17:44; Admin Dose 10,000 UNITS; Start 01/19/17 at 17:00 Piperacillin Sod/ Tazobactam Sod (Zosyn 2.25gm/ 50ml (Pmx)) 50 ml @ 100 mls/hr Q6 IVPB Last administered on 01/28/17 12:40; Admin Dose 100 MLS/HR; Start 06/28 at 09:00 Lubiprostone (Amitiza) 24 mcg BID PO Last administered on 01/28/17 08:40; Admin Dose 24 MCG; Start 01/21/17 at 21:00 Lactulose (Enulose) 20 gm BID PRN PO CONSTIPATION; Start 01/22/17 at 13:00 Ondansetron HCl (Zofran Inj) 4 mg Q4H PRN IV NAUSEA AND/OR VOMITING Last administered on 01/28/17 13:32; Admin Dose 4 MG; Start 01/24/17 at 13:30 Rifaximin (Xifaxan) 550 mg BID PO Last administered on 01/28/17 08:40; Admin Dose 550 MG; Start 01/26/17 at 09:00 IV Flush (NS 10 ml) 10 ml PRN PRN IV IV PROTOCOL; Start 01/27/17 at 15:00 Insulin Glargine (Lantus) 30 unit DAILY@20 SC ; Start 01/28/17 at 20:00 STUART STANLEY MD Jan 28, 2017 18:07
--- NOTE | 2017-01-28 18:09 | CONS ---
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 - Elevated trop- low level, normalized atypical cp, ekg without acute abnl, no changes from admit. echo poor quality, but no obvious wall motion abnl, normal overall fxn. 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 - current no e/o cardiac symptoms and stable hd status. trop negative. cont medical mgmt for cad and consider risk stratification when acute issues improve. discussed with Dr. Mora Problems: Consultation Date/Type/Reason Admit Date/Time Jan 07, 2017 at 10:13 Initial Consult Date 01/09/17 Type of Consultation: card Referring Provider: JENY MORA MD 24 HR Interval Summary Free Text/Dictation pt seen 7 am. was sleeping, arousable . snoring, no cp/sob. + abd discomfort. Detailed Summary ENT: no complaints Respiratory: no complaints Cardiovascular: no complaints Gastrointestinal: pain Exam/Review of Systems Vital Signs Vitals Vital Signs Date Time Temp Pulse Resp B/P Pulse Ox O2 Delivery O2 Flow Rate FiO2 01/28/17 17:51 81 22 95 Nasal Cannula 5.0 01/28/17 15:54 98.6 151/69 Intake and Output 01/27/17 01/27/17 01/28/17 15:00 23:00 07:00 Intake Total 500 ml 953 ml Output Total 200 ml Balance 300 ml 953 ml Exam GENERAL: morbidly obese, sleeping, opens eyes to voice, NAD NECK: difficult to discern jvp, 2+ carotids CARDIAC EXAM: S1, S2. 2/6 systolic LLSB CHEST: anterior ramos clear ABDOMEN: inc girth, no ttp EXTREMITIES: 1+ edema ble, improving NEUROLOGIC: lethargic No focal deficits. Results Result Diagram: 01/28/17 0604 01/28/17 0604 Results 24 hrs Laboratory Tests Test 01/27/17 20:33 01/28/17 01:00 01/28/17 01:25 01/28/17 06:04 Bedside Glucose 336 H 315 H Stool Occult Blood NEGATIVE White Blood Count 8.7 Red Blood Count 3.05 L Hemoglobin 7.7 L Hematocrit 26.3 L Mean Corpuscular Volume 86.2 Mean Corpuscular Hemoglobin 25.2 L Mean Corpuscular Hemoglobin Concent 29.3 L Red Cell Distribution Width 17.3 H Platelet Count 66 L Mean Platelet Volume 11.1 H Neutrophils % 84.2 H Lymphocytes % 6.5 L Monocytes % 4.8 Eosinophils % 3.3 Basophils % 0.1 Nucleated Red Blood Cells % 0.6 H Neutrophils # 7.3 Lymphocytes # 0.6 L Monocytes # 0.4 Eosinophils # 0.3 Basophils # 0.0 Nucleated Red Blood Cells # 0.1 H Sodium Level 145 H Potassium Level 3.1 L Chloride Level 102 Carbon Dioxide Level 28 Anion Gap 18 H Blood Urea Nitrogen 50 H Creatinine 4.45 #H Glucose Level 276 #H Calcium Level 8.2 L Test 01/28/17 08:38 01/28/17 12:38 01/28/17 17:21 Bedside Glucose 257 H 253 H 204 Medications Medications Current Medications Atorvastatin Calcium (Lipitor) 20 mg HS PO Last administered on 01/27/17t 20:29 ; Admin Dose 20 MG; Start 01/07/17 at 21:00 Miscellaneous Information 1 ea NOTE XX ; Start 01/07/17 at 17:30 Glucose (Glutose) 15 gm Q15M PRN PO DECREASED GLUCOSE; Start 01/07/17 at 17:30 Glucose (Glutose) 22.5 gm Q15M PRN PO DECREASED GLUCOSE; Start 01/07/17 at 17: 30 Dextrose (D50w Syringe) 25 ml Q15M PRN IV DECREASED GLUCOSE; Start 01/07/17 at 17:30 Dextrose (D50w Syringe) 50 ml Q15M PRN IV DECREASED GLUCOSE; Start 01/07/17 at 17:30 Glucagon (Glucagen) 1 mg Q15M PRN IM DECREASED GLUCOSE; Start 01/07/17 at 17:30 Glucose (Glutose) 15 gm Q15M PRN BUCCAL DECREASED GLUCOSE; Start 01/07/17 at 17 :30 Nifedipine (Procardia Xl) 30 mg DAILY PO Last administered on 01/28/17 08:40; Admin Dose 30 MG; Start 01/08/17 at 09:00 Docusate Sodium (Colace) 100 mg BID PRN PO CONSTIPATION Last administered on 11:56; Admin Dose 100 MG; Start 01/08/17 at 14:00 Acetaminophen (Tylenol Tab) 500 mg Q6H PRN PO PAIN AND OR ELEVATED TEMP Last administered on 01/27/17 22:34; Admin Dose 500 MG; Start 01/08/17 at 15:30 Diagnostic Test (Pha) (Accu-Chek) 1 ea 02 XX Last administered on 01/28/17 02: 23; Admin Dose 1 EA; Start 01/15/17 at 02:00 Insulin Aspart 10 unit 10 unit ONCE PRN SC ELEVATED GLUCOSE Last administered on 01/21/17 02:15; Admin Dose 10 UNIT; Start 01/17/17 at 02:00 Sodium Chloride (1/2 NS) 1,000 ml @ 40 mls/hr Q24H IV Last administered on 01/18 21:32; Admin Dose 75 MLS/HR; Start 01/17/17 at 17:00; Status Future Hold Nitroglycerin (Nitroglycerin (Sl Tab) 0.4 Mg) 1 tab Q5M PRN SL ANGINA; Start at 21:30 Epoetin Sean 98048 units 10,000 units MoWeFr@17 SC Last administered on 17:44; Admin Dose 10,000 UNITS; Start 01/19/17 at 17:00 Piperacillin Sod/ Tazobactam Sod (Zosyn 2.25gm/ 50ml (Pmx)) 50 ml @ 100 mls/hr Q6 IVPB Last administered on 01/28/17 12:40; Admin Dose 100 MLS/HR; Start 06/28 at 09:00 Lubiprostone (Amitiza) 24 mcg BID PO Last administered on 01/28/17 08:40; Admin Dose 24 MCG; Start 01/21/17 at 21:00 Lactulose (Enulose) 20 gm BID PRN PO CONSTIPATION; Start 01/22/17 at 13:00 Ondansetron HCl (Zofran Inj) 4 mg Q4H PRN IV NAUSEA AND/OR VOMITING Last administered on 01/28/17 13:32; Admin Dose 4 MG; Start 01/24/17 at 13:30 Rifaximin (Xifaxan) 550 mg BID PO Last administered on 01/28/17 08:40; Admin Dose 550 MG; Start 01/26/17 at 09:00 IV Flush (NS 10 ml) 10 ml PRN PRN IV IV PROTOCOL; Start 01/27/17 at 15:00 Insulin Glargine (Lantus) 30 unit DAILY@20 SC ; Start 01/28/17 at 20:00 Procedures Procedures tele reviewed: Nsr imaging reports reviewed in emr MARISEL MEEKS Jan 28, 2017 18:09
[2017-01-28] MEDS: ATORVASTATIN 20 MG TAB PO SCH (21:13)
[2017-01-28] MEDS: EPOETIN 10000 UNITS/1 ML INJ (ESRD) SC SCH (21:15)
[2017-01-28] MEDS: INSULIN GLARGINE [LANtus] 3 ML PEN SC SCH (21:18)
[2017-01-28] MEDS: ACETAMINOPHEN 500 MG TAB PO PRN (21:35)
[2017-01-28] MEDS: LACTULOSE 30ML CUP PO PRN (21:35)
[2017-01-29] VITALS (11 sets, daily range): BP systolic 92–142; BP diastolic 50–71; PULSE 78–86; RESP 16–19
[2017-01-29] MEDS: PIPER-TAZO 2.25 GM (PMX) 50 ML IVPB SCH ×2 (00:12→05:48)
[2017-01-29] MEDS: ACCU-CHEK XX SCH (01:40)
[2017-01-29] MEDS ORDERED: INSULIN ASPART [NOVOLOG] 3 ML PEN SC ONE (02:00)
[2017-01-29 08:06] LABS: ADD SCAN DIFF NO
[2017-01-29 08:17] LABS: ABNORMAL IP MESSAGE 1; BASOPHILS % 0.2 % (0.0-2.0); EOSINOPHILS # 0.3 10^3/ul (0.0-0.5); EOSINOPHILS % 3.1 % (0.0-7.0); ERYTHROBLAST% (NRBC) (M) 0.5 /100WBC (0.0-0.0); HEMATOCRIT 26.5 % (42.0-52.0); HEMOGLOBIN 7.7 g/dl (14.0-18.0); LYMPHOCYTES # 0.8 10^3/ul (0.8-2.9); LYMPHOCYTES % 7.9 % (15.0-51.0); MEAN CORPUSCULAR HEMOGLOBIN 24.9 pg (29.0-33.0); MEAN CORPUSCULAR HGB CONC 29.1 g/dl (32.0-37.0); MEAN CORPUSCULAR VOLUME 85.8 fl (82.0-101.0); MONOCYTE # 0.4 10^3/ul (0.3-0.9); MONOCYTES % 3.4 % (0.0-11.0); NEUTROPHIL # 8.9 10^3/ul (1.6-7.5); NEUTROPHILS % 84.5 % (39.0-77.0); NUCLEATED RED BLOOD CELLS # 0.1 10^3/ul (0.0-0.0); RED BLOOD COUNT 3.09 10^6/ul (4.70-6.10); RED CELL DISTRIBUTION WIDTH 17.9 % (11.5-14.5); WHITE BLOOD COUNT 10.5 10^3/ul (4.8-10.8)
[2017-01-29 08:23] LABS: PLATELET COUNT 53 10^3/UL (140-415)
[2017-01-29] MEDS: ALBUTEROL/IPRATROPIUM (NEB) 3 ML AMP HHN SCH ×4 (08:28→21:06)
[2017-01-29 08:43] LABS: ALBUMIN 2.5 g/dl (3.3-4.9); ALBUMIN/GLOBULIN RATIO 0.58; BILIRUBIN,INDIRECT 0.6 mg/dl (0-1.1); BILIRUBIN,TOTAL 0.6 mg/dl (0.2-1.3); CREATININE 3.95 mg/dl (0.61-1.24); POTASSIUM 3.8 mmol/L (3.5-5.1); TOTAL PROTEIN 6.8 g/dl (6.1-8.1)
--- NOTE | 2017-01-29 09:16 | CONS ---
Date/Time of Note Date/Time of Note DATE: 01/29/17 TIME: 09:09 Assessment/Plan Assessment/Plan Chief Complaint/Hosp Course Impression: 1. Chronic kidney disease. His potassium is normal today. His BUN and serum creatinine are lower. I will order hemodialysis for tomorrow. 2. 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 He has been treated for hepatitis C virus. 3. Hypertension 4. Hyperlipidemia 5. Anemia 6. Congestive heart failure . Fluid is being removed with dialysis and he seems less fluid overloaded. 7. Obstructive sleep apnea 8. Altered level of consciousness/hepatic encephalopathy, his ammonia level is lower and at times he is more awake and alert. He seems more alert today. He has mild asterixis today. His ammonia level is down to 46. Normal is 30. Continue current treatment for hepatic encephalopathy. Problems: Consultation Date/Type/Reason Admit Date/Time Jan 07, 2017 at 10:13 Initial Consult Date 01/19/17 Type of Consultation: card Referring Provider: JENY MORA MD 24 HR Interval Summary Free Text/Dictation He is sleeping. He does arouse to verbal stimuli and follows simple commands. He was more awake this morning and was able to get up in brush his teeth. He had hemodialysis yesterday and 3 L of fluid was removed Constitutional: poor po Exam/Review of Systems Vital Signs Vitals Vital Signs Date Time Temp Pulse Resp B/P Pulse Ox O2 Delivery O2 Flow Rate FiO2 01/29/17 08:28 98 4.0 01/29/17 08:28 82 20 Nasal Cannula 01/29/17 07:31 98.3 116/61 Intake and Output 01/28/17 01/28/17 01/29/17 14:59 22:59 06:59 Intake Total 250 ml 850 ml 260 ml Output Total 200 ml 3600 ml 50 ml Balance 50 ml -2750 ml 210 ml Exam He seems to have less flank edema. Constitutional: frail, obese Head: atraumatic, normocephalic ENMT: nl external ears & nose Respiratory: clear to auscultation, diminished breath sounds Cardiovascular: regular rate and rhythm Gastrointestinal: distended, non-tender, soft Musculoskeletal: nl extremities to inspection 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: lethargic Results Result Diagram: 01/29/17 0653 01/29/17 0653 Results 24 hrs Laboratory Tests Test 01/28/17 12:38 01/28/17 17:21 01/28/17 21:12 01/29/17 01:38 Bedside Glucose 253 H 204 308 H 223 H Test 01/29/17 06:53 White Blood Count 10.5 # Red Blood Count 3.09 L Hemoglobin 7.7 L Hematocrit 26.5 L Mean Corpuscular Volume 85.8 Mean Corpuscular Hemoglobin 24.9 L Mean Corpuscular Hemoglobin Concent 29.1 L Red Cell Distribution Width 17.9 H Platelet Count 53 L Mean Platelet Volume Neutrophils % 84.5 H Lymphocytes % 7.9 L Monocytes % 3.4 Eosinophils % 3.1 Basophils % 0.2 Nucleated Red Blood Cells % 0.5 H Neutrophils # 8.9 H Lymphocytes # 0.8 Monocytes # 0.4 Eosinophils # 0.3 Basophils # 0.0 Nucleated Red Blood Cells # 0.1 H Sodium Level 140 Potassium Level 3.8 Chloride Level 97 Carbon Dioxide Level 30 Anion Gap 17 H Blood Urea Nitrogen 37 #H Creatinine 3.95 H Glucose Level 170 # Calcium Level 8.0 L Total Bilirubin 0.6 Direct Bilirubin 0.00 Indirect Bilirubin 0.6 Aspartate Amino Transf (AST/SGOT) 42 Alanine Aminotransferase (ALT/SGPT) 38 Alkaline Phosphatase 117 Ammonia 46 H Total Protein 6.8 Albumin 2.5 L Globulin 4.30 H Albumin/Globulin Ratio 0.58 Medications Medications Current Medications Atorvastatin Calcium (Lipitor) 20 mg HS PO Last administered on 01/28/17t 21:13 ; Admin Dose 20 MG; Start 01/07/17 at 21:00 Miscellaneous Information 1 ea NOTE XX ; Start 01/07/17 at 17:30 Glucose (Glutose) 15 gm Q15M PRN PO DECREASED GLUCOSE; Start 01/07/17 at 17:30 Glucose (Glutose) 22.5 gm Q15M PRN PO DECREASED GLUCOSE; Start 01/07/17 at 17: 30 Dextrose (D50w Syringe) 25 ml Q15M PRN IV DECREASED GLUCOSE; Start 01/07/17 at 17:30 Dextrose (D50w Syringe) 50 ml Q15M PRN IV DECREASED GLUCOSE; Start 01/07/17 at 17:30 Glucagon (Glucagen) 1 mg Q15M PRN IM DECREASED GLUCOSE; Start 01/07/17 at 17:30 Glucose (Glutose) 15 gm Q15M PRN BUCCAL DECREASED GLUCOSE; Start 01/07/17 at 17 :30 Nifedipine (Procardia Xl) 30 mg DAILY PO Last administered on 01/28/17 08:40; Admin Dose 30 MG; Start 01/08/17 at 09:00 Docusate Sodium (Colace) 100 mg BID PRN PO CONSTIPATION Last administered on 11:56; Admin Dose 100 MG; Start 01/08/17 at 14:00 Acetaminophen (Tylenol Tab) 500 mg Q6H PRN PO PAIN AND OR ELEVATED TEMP Last administered on 01/28/17 21:35; Admin Dose 500 MG; Start 01/08/17 at 15:30 Diagnostic Test (Pha) (Accu-Chek) 1 ea 02 XX Last administered on 01/29/17 01: 40; Admin Dose 1 EA; Start 01/15/17 at 02:00 Insulin Aspart 10 unit 10 unit ONCE PRN SC ELEVATED GLUCOSE Last administered on 01/21/17 02:15; Admin Dose 10 UNIT; Start 01/17/17 at 02:00 Sodium Chloride (1/2 NS) 1,000 ml @ 40 mls/hr Q24H IV Last administered on 01/18 21:32; Admin Dose 75 MLS/HR; Start 01/17/17 at 17:00; Status Future Hold Nitroglycerin (Nitroglycerin (Sl Tab) 0.4 Mg) 1 tab Q5M PRN SL ANGINA; Start at 21:30 Epoetin Sean 33162 units 10,000 units MoWeFr@17 SC Last administered on 21:15; Admin Dose 10,000 UNITS; Start 01/19/17 at 17:00 Piperacillin Sod/ Tazobactam Sod (Zosyn 2.25gm/ 50ml (Pmx)) 50 ml @ 100 mls/hr Q6 IVPB Last administered on 01/29/17 05:48; Admin Dose 100 MLS/HR; Start 06/28 at 09:00 Lubiprostone (Amitiza) 24 mcg BID PO Last administered on 01/28/17 21:13; Admin Dose 24 MCG; Start 01/21/17 at 21:00 Lactulose (Enulose) 20 gm BID PRN PO CONSTIPATION Last administered on 21:35; Admin Dose 20 GM; Start 01/22/17 at 13:00 Ondansetron HCl (Zofran Inj) 4 mg Q4H PRN IV NAUSEA AND/OR VOMITING Last administered on 01/28/17 13:32; Admin Dose 4 MG; Start 01/24/17 at 13:30 Rifaximin (Xifaxan) 550 mg BID PO Last administered on 01/28/17 21:14; Admin Dose 550 MG; Start 01/26/17 at 09:00 IV Flush (NS 10 ml) 10 ml PRN PRN IV IV PROTOCOL; Start 01/27/17 at 15:00 Insulin Glargine (Lantus) 30 unit DAILY@20 SC Last administered on 01/28/17 21 :18; Admin Dose 30 UNIT; Start 01/28/17 at 20:00 ANA MELENDEZ MD Jan 29, 2017 09:15
[2017-01-29] MEDS: RIFAXIMIN 550 MG TAB PO SCH ×2 (09:26→20:50)
[2017-01-29] MEDS: LUBIPROSTONE 24 MCG CAP PO SCH ×2 (09:28→20:50)
[2017-01-29] MEDS: NIFEdipine (XL) 30 MG TAB PO SCH (09:28)
[2017-01-29] MEDS: INSULIN ASPART [NOVOLOG] 3 ML PEN SC SCH ×4 (09:30→21:22)
[2017-01-29] MEDS: LACTULOSE 30ML CUP PO PRN (09:30)
--- NOTE | 2017-01-29 10:33 | PN ---
Date/Time of Note Date/Time of Note DATE: 01/29/17 TIME: 10:24 Assessment/Plan Lines/Catheters IV Catheter Type (from Nrs): PICC Line Sykes in Place (from Nrs): Yes Assessment/Plan Chief Complaint/Hosp Course 1. Mobrid obesity: BMI 48 -encourage weight loss -nutrition optimization -eventual bariatric surgery when medically stable 2. CHF: dyspnea with pulmonary congestion; dyspnea improved -continue diuresis per cards/renal -medical optimization -HD 3. Elevated troponin: renal failure vs NSTEMI; invasive/stress testing not recommended at this time per cards -trend and monitor 4. Chronic kidney disease: HD -per renal 5. Diabetes: blood sugar labile; on long acting and short acting insulin -optimize blood sugar control 6. Hypertension: controlled -cont. antihypertensives 7. YEVGENIY: morbid obesity, dyspnea improved after HD -cpap 8. Leukocytosis: on steroids; (repeat blood cx: no growth) vs. dvt; no fevers; ascitic fluid (low PMN- not the source per ID); cultures no growth, wbc improving -abx per sensitivity 9. Dyspnea: multifactorial chf+ morbid obesity + ascites + YEVGENIY; improved; s/p dialysis -supportive -as above 10. Hyponatremia now with hypernatremia: s/p dialysis; improving - judicious fluid management 11. Anemia: CKD +/- chronic disease; doubt active bleed; h/h stable -monitor -transfuse as needed 12. Hypothyroidism; low tsh/t4 -medical optimization 13. Hypocalcemia: likely 2/2 poor nutrition + hypothyroid -optimize lytes -as above -medical optimization 14. Hypoalbuminemia: liver disease +/- malnutrition, unchanged -replete -nutrition optimization 15. Hepatic encephalopathy: Hepatitis C history, on treatment; ammonia levels improving -per gi/hepatology Patient seen and examined in collaboration with Dr. Marcelino Morales Problems: Subjective 24 Hr Interval Summary sleeping comfortably. Arouses easily. SOB improved. Tolerated dialysis yesterday. No fevers, chills, mccallum, sz, dizziness, cough, n/v/d, itching, rash. Exam/Review of Systems Vital Signs Vitals Vital Signs Date Time Temp Pulse Resp B/P Pulse Ox O2 Delivery O2 Flow Rate FiO2 01/29/17 08:28 98 4.0 01/29/17 08:28 82 20 Nasal Cannula 01/29/17 07:31 98.3 116/61 Intake and Output 01/28/17 01/28/17 01/29/17 15:00 23:00 07:00 Intake Total 250 ml 850 ml 260 ml Output Total 200 ml 3600 ml 50 ml Balance 50 ml -2750 ml 210 ml Exam Free Text/Dictation Constitutional: sleeping, arouses easily, obese, oriented Psych: nl mood/affect, no complaints Head: atraumatic, normocephalic Eyes: nl conjunctiva, nl lids ENMT: mucosa pink and moist Neck: non-tender, supple; right IJ Respiratory: diminished breath sounds; no use of accessory muscles Cardiovascular: regular rate and rhythm Gastrointestinal: distended (mod), non-tender, soft Genitourinary - Male: nl penis, nl scrotum, No CVA tenderness; sykes, clear urine output Musculoskeletal: nl extremities to inspection Extremities: edema (ble 3+), normal pulses 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: no nl mental status, nl speech Skin: No rash or lesions Results Result Diagram: 01/29/17 0653 01/29/17 0653 ERLINDA VALLE NP Jan 29, 2017 10:33
--- NOTE | 2017-01-29 10:56 | CONS ---
Date/Time of Note Date/Time of Note DATE: 01/29/17 TIME: 10:52 Assessment/Plan Assessment/Plan Chief Complaint/Hosp Course 1)Liver cirrhosis with portal HTN due to Hep C to repeat ammonia level 01/21 - ammonia level is mildly elevated at 57 consider lacutlose 01/26 - pt getting lactulose due to rising ammonia level but so far no BM's 01/27 - pt had one BM yesterday only will re-check ammonia level consider increasing lacutulose dose, pt also on rifaximin 01/29 - ammonia level is decreasing 2) CHF +/- pneumonia unable to tolerate lasix with worsening renal function 01/21 - in light of MSSA in blood and no open wounds or chronic IV in place, concern would be lung may be the portal of entry to start zosyn to cover for lung infection as well as the MSSA CXR does not show a lobar infiltrate 01/22 - continue with zosyn 01/23 - beta d glucan to look for invasive fungal disease was negative continue with zosyn 01/24 - stable on zosyn wbc is back to normal 01/26 - stable, WBC minimal elevated pt would likely benefit from a blood tx 01/29 - pt has completed his course for pneumonia d/c zosyn and start ceftriaxone for continued treatment of his MSSA bacteremia 3) r/o SBP pt to get paracentesis later today cefotaxime was started by the primary if fevers not improving will broaden the coverage 01/20 - pt to get paracentesis today continue with cefotaxime 01/21 - low number of PMN's in ascitic fluid, this in not the source for his MSSA d/c cefotaxime 4) new onset fever with leukocytosis pt has been on steroids but this does not explain the new fever the potential sources would include, ascitic fluid, lung urinalysis does not suggest an infection will order beta d glucan, aspergillus galactomannan, procalcitonin in a.m. will order LE dopplers to make sure no DVT has developed if cefotaxime does not improve his fever, wbc then will broaden coverage to include lung infection 01/20 - await paracentesis and a.m. labs vanco added due to GPC in blood cx fevers appear improved 01/21 - MSSA is present in blood and urine cx u/a did not show signs of infection and so the urine may only be seeded from the bacteremia will order repeat u/a at this time d/c vanco/cefotaxime and start zosyn since there is no skin breakdown or ulcers the lung becomes a more likely portal of entry 01/22 - fevers resolved continue with zosyn for bacteremia and possible pneumonia 5) MSSA bacteremia 01/20 - no central line in place, IV sites look ok await ID to see if true infection or a contaminant vanco started, will order repeat blood cx now 01/21 - true infection of blood with MSSA repeat blood cx from 01/20 is NGTD d/c vanco/cefotaxime and start zosyn check u/a 01/22 - MSSA in one set from 01/20 repeat blood cx today pt needs dialysis and likely he is no longer bacteremic so ok for dialysis line but if pt remains bacteremic it will need to be replaced 01/23 - pt to get dialysis line today and likely HD afterwards continue with zosyn 01/24 - repeat blood cx from 01/22 remain NGTD wbc is back to normal anticipate a 4 week course of treatment for this, will eventually change zosyn to ceftriaxone 01/26 - consider blood tx to help with effectiveness of antibiotics 01/27 - repeat blood cx remain neg from 01/22 and 01/25 01/29 - changed to ceftriaxone and continue thru 02/16/17 6) anemia 01/26 - when pt does have a BM will get hemoccult to see if pt will need prophylaxis for SBP consider blood tx Problems: Consultation Date/Type/Reason Admit Date/Time Jan 07, 2017 at 10:13 Initial Consult Date 01/19/17 Type of Consultation: ID Referring Provider: JENY MORA MD 24 HR Interval Summary Free Text/Dictation spoke to pt briefly followed some directions no V, pt is having BM's now pt more alert according to Exam/Review of Systems Vital Signs Vitals Vital Signs Date Time Temp Pulse Resp B/P Pulse Ox O2 Delivery O2 Flow Rate FiO2 01/29/17 08:28 98 4.0 01/29/17 08:28 82 20 Nasal Cannula 01/29/17 07:31 98.3 116/61 Intake and Output 01/28/17 01/28/17 01/29/17 15:00 23:00 07:00 Intake Total 250 ml 850 ml 260 ml Output Total 200 ml 3600 ml 50 ml Balance 50 ml -2750 ml 210 ml Exam followed directions but quickly went back to sleep Constitutional: alert ENMT: mucosa pink and moist Respiratory: clear to auscultation Cardiovascular: regular rate and rhythm Gastrointestinal: non-tender, soft Results Result Diagram: 01/29/17 0653 01/29/17 0653 Results 24 hrs Laboratory Tests Test 01/28/17 12:38 01/28/17 17:21 01/28/17 21:12 01/29/17 01:38 Bedside Glucose 253 H 204 308 H 223 H Test 01/29/17 06:53 01/29/17 09:23 White Blood Count 10.5 # Red Blood Count 3.09 L Hemoglobin 7.7 L Hematocrit 26.5 L Mean Corpuscular Volume 85.8 Mean Corpuscular Hemoglobin 24.9 L Mean Corpuscular Hemoglobin Concent 29.1 L Red Cell Distribution Width 17.9 H Platelet Count 53 L Mean Platelet Volume Neutrophils % 84.5 H Lymphocytes % 7.9 L Monocytes % 3.4 Eosinophils % 3.1 Basophils % 0.2 Nucleated Red Blood Cells % 0.5 H Neutrophils # 8.9 H Lymphocytes # 0.8 Monocytes # 0.4 Eosinophils # 0.3 Basophils # 0.0 Nucleated Red Blood Cells # 0.1 H Sodium Level 140 Potassium Level 3.8 Chloride Level 97 Carbon Dioxide Level 30 Anion Gap 17 H Blood Urea Nitrogen 37 #H Creatinine 3.95 H Glucose Level 170 # Calcium Level 8.0 L Total Bilirubin 0.6 Direct Bilirubin 0.00 Indirect Bilirubin 0.6 Aspartate Amino Transf (AST/SGOT) 42 Alanine Aminotransferase (ALT/SGPT) 38 Alkaline Phosphatase 117 Ammonia 46 H Total Protein 6.8 Albumin 2.5 L Globulin 4.30 H Albumin/Globulin Ratio 0.58 Bedside Glucose 186 Medications Medications Current Medications Atorvastatin Calcium (Lipitor) 20 mg HS PO Last administered on 01/28/17t 21:13 ; Admin Dose 20 MG; Start 01/07/17 at 21:00 Miscellaneous Information 1 ea NOTE XX ; Start 01/07/17 at 17:30 Glucose (Glutose) 15 gm Q15M PRN PO DECREASED GLUCOSE; Start 01/07/17 at 17:30 Glucose (Glutose) 22.5 gm Q15M PRN PO DECREASED GLUCOSE; Start 01/07/17 at 17: 30 Dextrose (D50w Syringe) 25 ml Q15M PRN IV DECREASED GLUCOSE; Start 01/07/17 at 17:30 Dextrose (D50w Syringe) 50 ml Q15M PRN IV DECREASED GLUCOSE; Start 01/07/17 at 17:30 Glucagon (Glucagen) 1 mg Q15M PRN IM DECREASED GLUCOSE; Start 01/07/17 at 17:30 Glucose (Glutose) 15 gm Q15M PRN BUCCAL DECREASED GLUCOSE; Start 01/07/17 at 17 :30 Nifedipine (Procardia Xl) 30 mg DAILY PO Last administered on 01/29/17 09:28; Admin Dose 30 MG; Start 01/08/17 at 09:00 Docusate Sodium (Colace) 100 mg BID PRN PO CONSTIPATION Last administered on 11:56; Admin Dose 100 MG; Start 01/08/17 at 14:00 Acetaminophen (Tylenol Tab) 500 mg Q6H PRN PO PAIN AND OR ELEVATED TEMP Last administered on 01/28/17 21:35; Admin Dose 500 MG; Start 01/08/17 at 15:30 Diagnostic Test (Pha) (Accu-Chek) 1 ea 02 XX Last administered on 01/29/17 01: 40; Admin Dose 1 EA; Start 01/15/17 at 02:00 Insulin Aspart 10 unit 10 unit ONCE PRN SC ELEVATED GLUCOSE Last administered on 01/21/17 02:15; Admin Dose 10 UNIT; Start 01/17/17 at 02:00 Sodium Chloride (1/2 NS) 1,000 ml @ 40 mls/hr Q24H IV Last administered on 01/18 21:32; Admin Dose 75 MLS/HR; Start 01/17/17 at 17:00; Status Future Hold Nitroglycerin (Nitroglycerin (Sl Tab) 0.4 Mg) 1 tab Q5M PRN SL ANGINA; Start at 21:30 Epoetin Sean (Epogen (Esrd)) 10,000 units MoWeFr@17 SC Last administered on 21:15; Admin Dose 10,000 UNITS; Start 01/19/17 at 17:00 Lubiprostone (Amitiza) 24 mcg BID PO Last administered on 01/29/17 09:28; Admin Dose 24 MCG; Start 01/21/17 at 21:00 Lactulose (Enulose) 20 gm BID PRN PO CONSTIPATION Last administered on 09:30; Admin Dose 20 GM; Start 01/22/17 at 13:00 Ondansetron HCl (Zofran Inj) 4 mg Q4H PRN IV NAUSEA AND/OR VOMITING Last administered on 01/28/17 13:32; Admin Dose 4 MG; Start 01/24/17 at 13:30 Rifaximin (Xifaxan) 550 mg BID PO Last administered on 01/29/17 09:26; Admin Dose 550 MG; Start 01/26/17 at 09:00 IV Flush (NS 10 ml) 10 ml PRN PRN IV IV PROTOCOL; Start 01/27/17 at 15:00 Insulin Glargine 30 unit 30 unit DAILY@20 SC Last administered on 01/28/17 21: 18; Admin Dose 30 UNIT; Start 01/28/17 at 20:00 Ceftriaxone Sodium (Rocephin) 50 ml @ 100 mls/hr Q24H IVPB ; Start 01/29/17 at 11:30 DANYEL HART MD Jan 29, 2017 10:55
--- NOTE | 2017-01-29 11:42 | CONS ---
Date/Time of Note Date/Time of Note DATE: 01/29/17 TIME: 11:39 Consult Date/Type/Reason Admit Date/Time Jan 07, 2017 at 10:13 Initial Consult Date 01/09/17 Type of Consultation: Pulmonary Ordering Provider: JENY MORA MD Subjective Appears somewhat more comfortable this morning, still with intermittent confusion Objective Vital Signs Date Time Temp Pulse Resp B/P Pulse Ox O2 Delivery O2 Flow Rate FiO2 01/29/17 11:28 98.2 67 18 105/50 97 01/29/17 08:28 4.0 01/29/17 08:28 Nasal Cannula Intake and Output 01/28/17 01/28/17 01/29/17 15:00 23:00 07:00 Intake Total 250 ml 850 ml 260 ml Output Total 200 ml 3600 ml 50 ml Balance 50 ml -2750 ml 210 ml Exam GENERAL: Drowsy but arousable. VITAL SIGNS: per chart NECK: Supple. No JVD or lymphadenopathy. CARDIAC EXAM: S1, S2. 2/6 systolic ejection murmur. CHEST: Morbidly obese diminished air entry both lung ramos ABDOMEN: Soft, nontender. No guarding or rebound. EXTREMITIES: No cyanosis, clubbing or edema +2 NEUROLOGIC: Generalized weakness. No focal deficits. Results/Medications Result Diagram: 01/29/17 0653 01/29/17 0653 Results 24 hrs Laboratory Tests Test 01/28/17 12:38 01/28/17 17:21 01/28/17 21:12 01/29/17 01:38 Bedside Glucose 253 H 204 308 H 223 H Test 01/29/17 06:53 01/29/17 09:23 White Blood Count 10.5 # Red Blood Count 3.09 L Hemoglobin 7.7 L Hematocrit 26.5 L Mean Corpuscular Volume 85.8 Mean Corpuscular Hemoglobin 24.9 L Mean Corpuscular Hemoglobin Concent 29.1 L Red Cell Distribution Width 17.9 H Platelet Count 53 L Mean Platelet Volume Neutrophils % 84.5 H Lymphocytes % 7.9 L Monocytes % 3.4 Eosinophils % 3.1 Basophils % 0.2 Nucleated Red Blood Cells % 0.5 H Neutrophils # 8.9 H Lymphocytes # 0.8 Monocytes # 0.4 Eosinophils # 0.3 Basophils # 0.0 Nucleated Red Blood Cells # 0.1 H Sodium Level 140 Potassium Level 3.8 Chloride Level 97 Carbon Dioxide Level 30 Anion Gap 17 H Blood Urea Nitrogen 37 #H Creatinine 3.95 H Glucose Level 170 # Calcium Level 8.0 L Total Bilirubin 0.6 Direct Bilirubin 0.00 Indirect Bilirubin 0.6 Aspartate Amino Transf (AST/SGOT) 42 Alanine Aminotransferase (ALT/SGPT) 38 Alkaline Phosphatase 117 Ammonia 46 H Total Protein 6.8 Albumin 2.5 L Globulin 4.30 H Albumin/Globulin Ratio 0.58 Bedside Glucose 186 Medications Current Medications Atorvastatin Calcium (Lipitor) 20 mg HS PO Last administered on 01/28/17 21:13 ; Admin Dose 20 MG; Start 01/07/17 at 21:00 Miscellaneous Information 1 ea NOTE XX ; Start 01/07/17 at 17:30 Glucose (Glutose) 15 gm Q15M PRN PO DECREASED GLUCOSE; Start 01/07/17 at 17:30 Glucose (Glutose) 22.5 gm Q15M PRN PO DECREASED GLUCOSE; Start 01/07/17 at 17: 30 Dextrose (D50w Syringe) 25 ml Q15M PRN IV DECREASED GLUCOSE; Start 01/07/17 at 17:30 Dextrose (D50w Syringe) 50 ml Q15M PRN IV DECREASED GLUCOSE; Start 01/07/17 at 17:30 Glucagon (Glucagen) 1 mg Q15M PRN IM DECREASED GLUCOSE; Start 01/07/17 at 17:30 Glucose (Glutose) 15 gm Q15M PRN BUCCAL DECREASED GLUCOSE; Start 01/07/17 at 17 :30 Nifedipine (Procardia Xl) 30 mg DAILY PO Last administered on 01/29/17 09:28; Admin Dose 30 MG; Start 01/08/17 at 09:00 Docusate Sodium (Colace) 100 mg BID PRN PO CONSTIPATION Last administered on 11:56; Admin Dose 100 MG; Start 01/08/17 at 14:00 Acetaminophen (Tylenol Tab) 500 mg Q6H PRN PO PAIN AND OR ELEVATED TEMP Last administered on 01/28/17 21:35; Admin Dose 500 MG; Start 01/08/17 at 15:30 Diagnostic Test (Pha) (Accu-Chek) 1 ea 02 XX Last administered on 01/29/17 01: 40; Admin Dose 1 EA; Start 01/15/17 at 02:00 Insulin Aspart 10 unit 10 unit ONCE PRN SC ELEVATED GLUCOSE Last administered on 01/21/17 02:15; Admin Dose 10 UNIT; Start 01/17/17 at 02:00 Sodium Chloride (1/2 NS) 1,000 ml @ 40 mls/hr Q24H IV Last administered on 01/18 21:32; Admin Dose 75 MLS/HR; Start 01/17/17 at 17:00; Status Future Hold Nitroglycerin (Nitroglycerin (Sl Tab) 0.4 Mg) 1 tab Q5M PRN SL ANGINA; Start at 21:30 Epoetin Sean (Epogen (Esrd)) 10,000 units MoWeFr@17 SC Last administered on 21:15; Admin Dose 10,000 UNITS; Start 01/19/17 at 17:00 Lubiprostone (Amitiza) 24 mcg BID PO Last administered on 01/29/17 09:28; Admin Dose 24 MCG; Start 01/21/17 at 21:00 Lactulose (Enulose) 20 gm BID PRN PO CONSTIPATION Last administered on 09:30; Admin Dose 20 GM; Start 01/22/17 at 13:00 Ondansetron HCl (Zofran Inj) 4 mg Q4H PRN IV NAUSEA AND/OR VOMITING Last administered on 01/28/17 13:32; Admin Dose 4 MG; Start 01/24/17 at 13:30 Rifaximin (Xifaxan) 550 mg BID PO Last administered on 01/29/17 09:26; Admin Dose 550 MG; Start 01/26/17 at 09:00 IV Flush (NS 10 ml) 10 ml PRN PRN IV IV PROTOCOL; Start 01/27/17 at 15:00 Insulin Glargine 30 unit 30 unit DAILY@20 SC Last administered on 01/28/17 21: 18; Admin Dose 30 UNIT; Start 01/28/17 at 20:00 Ceftriaxone Sodium (Rocephin) 50 ml @ 100 mls/hr Q24H IVPB ; Start 01/29/17 at 11:30 Assessment/Plan Chief Complaint/Hosp Course IMP: 1. Dyspnea--likely multifactorial, component of obesity pulmonary edema cirrhosis obstructive sleep apnea. No evidence of CO2 retention on ABG 2. 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 EYVGENIY 4. CKD now on hemodialysis 5. Encephalopathy toxic metabolic. Not secondary to obstructive sleep apnea as patient does not have chronic CO2 retention on arterial blood gas. 6. Anemia likely secondary to chronic disease 7. Thrombocytopenia unclear etiology, possible HIT ? TTP. RECS: 1. BD's 2. Aspiration precautions 3. Encourage out of bed 4. Hemodialysis per nephrology 5. Continue rifaximin and lactulose 6. Consider transfusion 1 unit packed red blood cells if hemoglobin continues to drop Discussed with family at bedside. Discussed with nephrology team. Problems: GUERITA RESENDIZ MD, [facility] Jan 29, 2017 11:42
[2017-01-29] MEDS: CEFTRIAXONE 2 GM/50 ML (PMX) 50 ML IVPB SCH (12:18)
[2017-01-29] MEDS: ACETAMINOPHEN 500 MG TAB PO PRN (15:00)
--- NOTE | 2017-01-29 19:01 | CONS ---
Date/Time of Note Date/Time of Note DATE: 01/29/17 TIME: 19:00 Assessment/Plan Assessment/Plan Chief Complaint/Hosp Course 61-year-old male admitted for shortness of breath. Patient is a history of hepatitis C cirrhosis of liver, morbid obesity obstructive sleep apnea, diabetes mellitus and hypertension. Recent was brought to the emergency room for abdominal distention and shortness of breath. He was slightly nauseous. No GI bleeding no chest pain no or SAFETY ATTENDANT problem no fever no chills. Problems: Additional Assessment/Plan 1. Shortness of breath multifactorial, much better 2. Morbid obesity 3. Cirrhosis of liver with portal hypertension 4. Mild ascites 5. Diabetes 6. Hypertension 7. Renal failure 8. Anasarca 9. Bacteremia staph positive in the blood culture 10. No evidence of spontaneous bacterial peritonitis 11. Severe constipation, better 12. Profound weakness, second to dialysis 13. Encephalopathy Plan P.o. fluid restriction 1000 cc a day Low-sodium diet Monitor BUN and creatinine closely Weight loss Supplemental oxygen Dietary consult, reduce calorie intake to 1000-calorie a day Discussed with the patient and the family Continue antibiotic Diuretic as per senior portfolio analyst. Continue with the dialysis and remove fluid as tolerated by the patient Discussed with the son [id number] Increase the dose of lactulose both for high ammonia and constipation Avoid sedatives and narcotic Lactulose enema on a needed basis Restarted lactulose Consultation Date/Type/Reason Admit Date/Time Jan 07, 2017 at 10:13 Initial Consult Date 01/09/17 Type of Consultation: Pulmonary Referring Provider: JENY MORA MD 24 HR Interval Summary Free Text/Dictation Patient is still lethargic As per the son p.o. lactulose was completely stopped Exam/Review of Systems Vital Signs Vitals Vital Signs Date Time Temp Pulse Resp B/P Pulse Ox O2 Delivery O2 Flow Rate FiO2 01/29/17 16:07 85 01/29/17 16:01 20 97 Nasal Cannula 3.0 01/29/17 11:28 98.2 105/50 Intake and Output 01/28/17 01/28/17 01/29/17 15:00 23:00 07:00 Intake Total 250 ml 850 ml 260 ml Output Total 200 ml 3600 ml 50 ml Balance 50 ml -2750 ml 210 ml Exam Constitutional: alert, oriented, well developed Psych: nl mood/affect, no complaints Head: atraumatic, normocephalic Eyes: EOMI, PERRL, nl conjunctiva, nl lids, nl sclera ENMT: nl external ears & nose, nl lips & teeth, nl nasal mucosa & septum Neck: non-tender, supple Respiratory: clear to auscultation, normal air movement Cardiovascular: nl pulses, regular rate and rhythm Gastrointestinal: nl liver, spleen, non-tender, soft Musculoskeletal: nl extremities to inspection, nl gait and stance Extremities: normal pulses 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: SAFETY ATTENDANT II-XII intact, nl mental status, nl speech, nl strength Skin: nl turgor, No rash or lesions Lymph: nl lymph nodes Results Result Diagram: 01/29/17 0653 01/29/17 0653 Results 24 hrs Laboratory Tests Test 01/28/17 21:12 01/29/17 01:38 01/29/17 06:53 01/29/17 09:23 Bedside Glucose 308 H 223 H 186 White Blood Count 10.5 # Red Blood Count 3.09 L Hemoglobin 7.7 L Hematocrit 26.5 L Mean Corpuscular Volume 85.8 Mean Corpuscular Hemoglobin 24.9 L Mean Corpuscular Hemoglobin Concent 29.1 L Red Cell Distribution Width 17.9 H Platelet Count 53 L Mean Platelet Volume Neutrophils % 84.5 H Lymphocytes % 7.9 L Monocytes % 3.4 Eosinophils % 3.1 Basophils % 0.2 Nucleated Red Blood Cells % 0.5 H Neutrophils # 8.9 H Lymphocytes # 0.8 Monocytes # 0.4 Eosinophils # 0.3 Basophils # 0.0 Nucleated Red Blood Cells # 0.1 H Sodium Level 140 Potassium Level 3.8 Chloride Level 97 Carbon Dioxide Level 30 Anion Gap 17 H Blood Urea Nitrogen 37 #H Creatinine 3.95 H Glucose Level 170 # Calcium Level 8.0 L Total Bilirubin 0.6 Direct Bilirubin 0.00 Indirect Bilirubin 0.6 Aspartate Amino Transf (AST/SGOT) 42 Alanine Aminotransferase (ALT/SGPT) 38 Alkaline Phosphatase 117 Ammonia 46 H Total Protein 6.8 Albumin 2.5 L Globulin 4.30 H Albumin/Globulin Ratio 0.58 Test 01/29/17 12:16 01/29/17 17:51 Bedside Glucose 176 203 Medications Medications Current Medications Atorvastatin Calcium (Lipitor) 20 mg HS PO Last administered on 01/28/17t 21:13 ; Admin Dose 20 MG; Start 01/07/17 at 21:00 Miscellaneous Information 1 ea NOTE XX ; Start 01/07/17 at 17:30 Glucose (Glutose) 15 gm Q15M PRN PO DECREASED GLUCOSE; Start 01/07/17 at 17:30 Glucose (Glutose) 22.5 gm Q15M PRN PO DECREASED GLUCOSE; Start 01/07/17 at 17: 30 Dextrose (D50w Syringe) 25 ml Q15M PRN IV DECREASED GLUCOSE; Start 01/07/17 at 17:30 Dextrose (D50w Syringe) 50 ml Q15M PRN IV DECREASED GLUCOSE; Start 01/07/17 at 17:30 Glucagon (Glucagen) 1 mg Q15M PRN IM DECREASED GLUCOSE; Start 01/07/17 at 17:30 Glucose (Glutose) 15 gm Q15M PRN BUCCAL DECREASED GLUCOSE; Start 01/07/17 at 17 :30 Nifedipine (Procardia Xl) 30 mg DAILY PO Last administered on 01/29/17 09:28; Admin Dose 30 MG; Start 01/08/17 at 09:00 Docusate Sodium (Colace) 100 mg BID PRN PO CONSTIPATION Last administered on 11:56; Admin Dose 100 MG; Start 01/08/17 at 14:00 Acetaminophen (Tylenol Tab) 500 mg Q6H PRN PO PAIN AND OR ELEVATED TEMP Last administered on 01/29/17 15:00; Admin Dose 500 MG; Start 01/08/17 at 15:30 Diagnostic Test (Pha) (Accu-Chek) 1 ea 02 XX Last administered on 01/29/17 01: 40; Admin Dose 1 EA; Start 01/15/17 at 02:00 Insulin Aspart 10 unit 10 unit ONCE PRN SC ELEVATED GLUCOSE Last administered on 01/21/17 02:15; Admin Dose 10 UNIT; Start 01/17/17 at 02:00 Sodium Chloride (1/2 NS) 1,000 ml @ 40 mls/hr Q24H IV Last administered on 01/18 21:32; Admin Dose 75 MLS/HR; Start 01/17/17 at 17:00; Status Future Hold Nitroglycerin (Nitroglycerin (Sl Tab) 0.4 Mg) 1 tab Q5M PRN SL ANGINA; Start at 21:30 Epoetin Sean (Epogen (Esrd)) 10,000 units MoWeFr@17 SC Last administered on 21:15; Admin Dose 10,000 UNITS; Start 01/19/17 at 17:00 Lubiprostone (Amitiza) 24 mcg BID PO Last administered on 01/29/17 09:28; Admin Dose 24 MCG; Start 01/21/17 at 21:00 Lactulose (Enulose) 20 gm BID PRN PO CONSTIPATION Last administered on 09:30; Admin Dose 20 GM; Start 01/22/17 at 13:00 Ondansetron HCl (Zofran Inj) 4 mg Q4H PRN IV NAUSEA AND/OR VOMITING Last administered on 01/28/17 13:32; Admin Dose 4 MG; Start 01/24/17 at 13:30 Rifaximin (Xifaxan) 550 mg BID PO Last administered on 01/29/17 09:26; Admin Dose 550 MG; Start 01/26/17 at 09:00 IV Flush (NS 10 ml) 10 ml PRN PRN IV IV PROTOCOL; Start 01/27/17 at 15:00 Insulin Glargine 30 unit 30 unit DAILY@20 SC Last administered on 01/28/17 21: 18; Admin Dose 30 UNIT; Start 01/28/17 at 20:00 Ceftriaxone Sodium (Rocephin) 50 ml @ 100 mls/hr Q24H IVPB Last administered on 01/29/17 12:18; Admin Dose 100 MLS/HR; Start 01/29/17 at 11:30 Multivitamins Therapeutic (Theragran) 1 tab DAILY PO ; Start 01/30/17 at 09:00 STUART STANLEY MD Jan 29, 2017 19:01
[2017-01-29] MEDS: LACTULOSE 30ML CUP GTB SCH (20:49)
[2017-01-29] MEDS: ATORVASTATIN 20 MG TAB PO SCH (20:50)
[2017-01-29] MEDS: INSULIN GLARGINE [LANtus] 3 ML PEN SC SCH (20:53)
[2017-01-30] VITALS (20 sets, daily range): BP systolic 108–144; BP diastolic 60–82; PULSE 80–92; RESP 18–19
[2017-01-30] MEDS: LACTULOSE 30ML CUP GTB SCH ×4 (01:19→18:09)
[2017-01-30] MEDS: ACCU-CHEK XX SCH (01:19)
[2017-01-30] MEDS: ACETAMINOPHEN 500 MG TAB PO PRN ×2 (03:37→17:01)
[2017-01-30 07:26] LABS: ADD SCAN DIFF NO
[2017-01-30 07:30] LABS: ABNORMAL IP MESSAGE 1; BASOPHILS % 0.2 % (0.0-2.0); EOSINOPHILS # 0.3 10^3/ul (0.0-0.5); EOSINOPHILS % 2.5 % (0.0-7.0); HEMATOCRIT 27.5 % (42.0-52.0); LYMPHOCYTES # 0.8 10^3/ul (0.8-2.9); LYMPHOCYTES % 7.8 % (15.0-51.0); MEAN CORPUSCULAR HGB CONC 29.1 g/dl (32.0-37.0); MEAN CORPUSCULAR VOLUME 85.9 fl (82.0-101.0); MONOCYTE # 0.4 10^3/ul (0.3-0.9); MONOCYTES % 3.9 % (0.0-11.0); NEUTROPHIL # 8.7 10^3/ul (1.6-7.5); NEUTROPHILS % 84.8 % (39.0-77.0); RED CELL DISTRIBUTION WIDTH 18.5 % (11.5-14.5); WHITE BLOOD COUNT 10.2 10^3/ul (4.8-10.8)
[2017-01-30 07:46] LABS: PLATELET COUNT 51 10^3/UL (140-415)
[2017-01-30] MEDS: LUBIPROSTONE 24 MCG CAP PO SCH ×2 (08:27→21:07)
[2017-01-30] MEDS: NIFEdipine (XL) 30 MG TAB PO SCH (08:28)
[2017-01-30] MEDS: RIFAXIMIN 550 MG TAB PO SCH ×2 (08:28→21:07)
[2017-01-30] MEDS: MULTIVITAMINS THERAPEUTIC TAB PO SCH (08:28)
[2017-01-30] MEDS: INSULIN ASPART [NOVOLOG] 3 ML PEN SC SCH ×4 (08:43→21:19)
[2017-01-30] MEDS: ALBUTEROL/IPRATROPIUM (NEB) 3 ML AMP HHN SCH ×4 (09:00→20:44)
--- NOTE | 2017-01-30 09:28 | CONS ---
Date/Time of Note Date/Time of Note DATE: 01/30/17 TIME: 09:23 Assessment/Plan Assessment/Plan Chief Complaint/Hosp Course Impression: 1. Chronic kidney disease. He is having a hemodialysis treatment today. Next dialysis will be in either 2 or 3 days depending on labs and chest x-ray. I will order labs and a chest x-ray for tomorrow. 2. 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 He has been treated for hepatitis C virus. 3. Hypertension 4. Hyperlipidemia 5. Anemia 6. Congestive heart failure . Fluid is being removed with dialysis and he seems less fluid overloaded. 7. Obstructive sleep apnea 8. Altered level of consciousness/hepatic encephalopathy, his ammonia level is lower and at times he is more awake and alert. He seems more alert today . Continue current treatment for hepatic encephalopathy. Problems: Consultation Date/Type/Reason Admit Date/Time Jan 07, 2017 at 10:13 Initial Consult Date 01/19/17 Type of Consultation: renal Referring Provider: JENY MORA MD 24 HR Interval Summary Free Text/Dictation The patient is now having a hemodialysis treatment. He is awake and responsive. He seems more alert today than he has been. Exam/Review of Systems Vital Signs Vitals Vital Signs Date Time Temp Pulse Resp B/P Pulse Ox O2 Delivery O2 Flow Rate FiO2 01/30/17 08:16 85 01/30/17 08:00 98.5 19 128/64 94 01/29/17 21:17 3.0 01/29/17 21:17 Nasal Cannula Intake and Output 01/29/17 01/29/17 01/30/17 15:00 23:00 07:00 Intake Total 660 ml 350 ml Output Total 300 ml 150 ml Balance 360 ml 200 ml Exam Constitutional: alert, frail, obese, oriented Respiratory: clear to auscultation, diminished breath sounds Cardiovascular: edema, regular rate and rhythm Gastrointestinal: non-tender, soft 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: nl mental status, nl speech Results Result Diagram: 01/30/17 0651 01/29/17 0653 Results 24 hrs Laboratory Tests Test 01/29/17 12:16 01/29/17 17:51 01/29/17 20:43 01/30/17 01:21 Bedside Glucose 176 203 237 H 205 Test 01/30/17 06:51 01/30/17 08:37 White Blood Count 10.2 Red Blood Count 3.20 L Hemoglobin 8.0 L Hematocrit 27.5 L Mean Corpuscular Volume 85.9 Mean Corpuscular Hemoglobin 25.0 L Mean Corpuscular Hemoglobin Concent 29.1 L Red Cell Distribution Width 18.5 H Platelet Count 51 L Mean Platelet Volume Neutrophils % 84.8 H Lymphocytes % 7.8 L Monocytes % 3.9 Eosinophils % 2.5 Basophils % 0.2 Neutrophils # 8.7 H Lymphocytes # 0.8 Monocytes # 0.4 Eosinophils # 0.3 Basophils # 0.0 Nucleated Red Blood Cells # 0.0 Bedside Glucose 187 Medications Medications Current Medications Atorvastatin Calcium (Lipitor) 20 mg HS PO Last administered on 01/29/17 20:50 ; Admin Dose 20 MG; Start 01/07/17 at 21:00 Miscellaneous Information 1 ea NOTE XX ; Start 01/07/17 at 17:30 Glucose (Glutose) 15 gm Q15M PRN PO DECREASED GLUCOSE; Start 01/07/17 at 17:30 Glucose (Glutose) 22.5 gm Q15M PRN PO DECREASED GLUCOSE; Start 01/07/17 at 17: 30 Dextrose (D50w Syringe) 25 ml Q15M PRN IV DECREASED GLUCOSE; Start 01/07/17 at 17:30 Dextrose (D50w Syringe) 50 ml Q15M PRN IV DECREASED GLUCOSE; Start 01/07/17 at 17:30 Glucagon (Glucagen) 1 mg Q15M PRN IM DECREASED GLUCOSE; Start 01/07/17 at 17:30 Glucose (Glutose) 15 gm Q15M PRN BUCCAL DECREASED GLUCOSE; Start 01/07/17 at 17 :30 Nifedipine (Procardia Xl) 30 mg DAILY PO Last administered on 01/30/17 08:28; Admin Dose 30 MG; Start 01/08/17 at 09:00 Docusate Sodium (Colace) 100 mg BID PRN PO CONSTIPATION Last administered on 11:56; Admin Dose 100 MG; Start 01/08/17 at 14:00 Acetaminophen (Tylenol Tab) 500 mg Q6H PRN PO PAIN AND OR ELEVATED TEMP Last administered on 01/30/17 03:37; Admin Dose 500 MG; Start 01/08/17 at 15:30 Diagnostic Test (Pha) (Accu-Chek) 1 ea 02 XX Last administered on 01/30/17 01: 19; Admin Dose 1 EA; Start 01/15/17 at 02:00 Insulin Aspart 10 unit 10 unit ONCE PRN SC ELEVATED GLUCOSE Last administered on 01/21/17 02:15; Admin Dose 10 UNIT; Start 01/17/17 at 02:00 Sodium Chloride (1/2 NS) 1,000 ml @ 40 mls/hr Q24H IV Last administered on 01/18 21:32; Admin Dose 75 MLS/HR; Start 01/17/17 at 17:00; Status Future Hold Nitroglycerin (Nitroglycerin (Sl Tab) 0.4 Mg) 1 tab Q5M PRN SL ANGINA; Start at 21:30 Epoetin Sean (Epogen (Esrd)) 10,000 units MoWeFr@17 SC Last administered on 21:15; Admin Dose 10,000 UNITS; Start 01/19/17 at 17:00 Lubiprostone (Amitiza) 24 mcg BID PO Last administered on 01/30/17 08:27; Admin Dose 24 MCG; Start 01/21/17 at 21:00 Ondansetron HCl (Zofran Inj) 4 mg Q4H PRN IV NAUSEA AND/OR VOMITING Last administered on 01/28/17 13:32; Admin Dose 4 MG; Start 01/24/17 at 13:30 Rifaximin (Xifaxan) 550 mg BID PO Last administered on 01/30/17 08:28; Admin Dose 550 MG; Start 01/26/17 at 09:00 IV Flush (NS 10 ml) 10 ml PRN PRN IV IV PROTOCOL; Start 01/27/17 at 15:00 Insulin Glargine 30 unit 30 unit DAILY@20 SC Last administered on 01/29/17 20: 53; Admin Dose 30 UNIT; Start 01/28/17 at 20:00 Ceftriaxone Sodium (Rocephin) 50 ml @ 100 mls/hr Q24H IVPB Last administered on 01/29/17 12:18; Admin Dose 100 MLS/HR; Start 01/29/17 at 11:30 Multivitamins Therapeutic (Theragran) 1 tab DAILY PO Last administered on 08:28; Admin Dose 1 TAB; Start 01/30/17 at 09:00 Lactulose (Enulose) 30 gm Q6 GTB Last administered on 01/30/17t 01:19; Admin Dose 30 GM; Start 01/29/17 at 20:00 ANA MELENDEZ MD Jan 30, 2017 09:27
--- NOTE | 2017-01-30 11:59 | CONS ---
Date/Time of Note Date/Time of Note DATE: 01/30/17 TIME: 11:52 Assessment/Plan Assessment/Plan Chief Complaint/Hosp Course 1)Liver cirrhosis with portal HTN due to Hep C to repeat ammonia level 01/21 - ammonia level is mildly elevated at 57 consider lacutlose 01/26 - pt getting lactulose due to rising ammonia level but so far no BM's 01/27 - pt had one BM yesterday only will re-check ammonia level consider increasing lacutulose dose, pt also on rifaximin 01/29 - ammonia level is decreasing 2) CHF +/- pneumonia unable to tolerate lasix with worsening renal function 01/21 - in light of MSSA in blood and no open wounds or chronic IV in place, concern would be lung may be the portal of entry to start zosyn to cover for lung infection as well as the MSSA CXR does not show a lobar infiltrate 01/22 - continue with zosyn 01/23 - beta d glucan to look for invasive fungal disease was negative continue with zosyn 01/24 - stable on zosyn wbc is back to normal 01/26 - stable, WBC minimal elevated pt would likely benefit from a blood tx 01/29 - pt has completed his course for pneumonia d/c zosyn and start ceftriaxone for continued treatment of his MSSA bacteremia 01/30 - breathing is stable off zosyn and only on ceftriaxone 3) r/o SBP pt to get paracentesis later today cefotaxime was started by the primary if fevers not improving will broaden the coverage 01/20 - pt to get paracentesis today continue with cefotaxime 01/21 - low number of PMN's in ascitic fluid, this in not the source for his MSSA d/c cefotaxime 4) new onset fever with leukocytosis pt has been on steroids but this does not explain the new fever the potential sources would include, ascitic fluid, lung urinalysis does not suggest an infection will order beta d glucan, aspergillus galactomannan, procalcitonin in a.m. will order LE dopplers to make sure no DVT has developed if cefotaxime does not improve his fever, wbc then will broaden coverage to include lung infection 01/20 - await paracentesis and a.m. labs vanco added due to GPC in blood cx fevers appear improved 01/21 - MSSA is present in blood and urine cx u/a did not show signs of infection and so the urine may only be seeded from the bacteremia will order repeat u/a at this time d/c vanco/cefotaxime and start zosyn since there is no skin breakdown or ulcers the lung becomes a more likely portal of entry 01/22 - fevers resolved continue with zosyn for bacteremia and possible pneumonia 5) MSSA bacteremia 01/20 - no central line in place, IV sites look ok await ID to see if true infection or a contaminant vanco started, will order repeat blood cx now 01/21 - true infection of blood with MSSA repeat blood cx from 01/20 is NGTD d/c vanco/cefotaxime and start zosyn check u/a 01/22 - MSSA in one set from 01/20 repeat blood cx today pt needs dialysis and likely he is no longer bacteremic so ok for dialysis line but if pt remains bacteremic it will need to be replaced 01/23 - pt to get dialysis line today and likely HD afterwards continue with zosyn 01/24 - repeat blood cx from 01/22 remain NGTD wbc is back to normal anticipate a 4 week course of treatment for this, will eventually change zosyn to ceftriaxone 01/26 - consider blood tx to help with effectiveness of antibiotics 01/27 - repeat blood cx remain neg from 01/22 and 01/25 01/29 - changed to ceftriaxone and continue thru 02/16/1701/30 - tolerating ceftriaxone, continue thru 02/16/17 6) anemia 01/26 - when pt does have a BM will get hemoccult to see if pt will need prophylaxis for SBP consider blood tx Problems: Consultation Date/Type/Reason Admit Date/Time Jan 07, 2017 at 10:13 Initial Consult Date 01/19/17 Type of Consultation: ID Referring Provider: JENY MORA MD 24 HR Interval Summary Free Text/Dictation states pt walked to the BR on his own one loose stool this a.m. just got dialysis and has a mild headache some N, no V Exam/Review of Systems Vital Signs Vitals Vital Signs Date Time Temp Pulse Resp B/P Pulse Ox O2 Delivery O2 Flow Rate FiO2 01/30/17 11:17 83 19 140/73 95 01/30/17 09:54 Nasal Cannula 3.0 01/30/17 08:00 98.5 Intake and Output 01/29/17 01/29/17 01/30/17 14:59 22:59 06:59 Intake Total 660 ml 350 ml Output Total 300 ml 150 ml Balance 360 ml 200 ml Exam Constitutional: alert Respiratory: clear to auscultation Cardiovascular: regular rate and rhythm Gastrointestinal: soft Results Result Diagram: 01/30/17 0651 01/29/17 0653 Results 24 hrs Laboratory Tests Test 01/29/17 12:16 01/29/17 17:51 01/29/17 20:43 01/30/17 01:21 Bedside Glucose 176 203 237 H 205 Test 01/30/17 06:51 01/30/17 08:37 White Blood Count 10.2 Red Blood Count 3.20 L Hemoglobin 8.0 L Hematocrit 27.5 L Mean Corpuscular Volume 85.9 Mean Corpuscular Hemoglobin 25.0 L Mean Corpuscular Hemoglobin Concent 29.1 L Red Cell Distribution Width 18.5 H Platelet Count 51 L Mean Platelet Volume Neutrophils % 84.8 H Lymphocytes % 7.8 L Monocytes % 3.9 Eosinophils % 2.5 Basophils % 0.2 Neutrophils # 8.7 H Lymphocytes # 0.8 Monocytes # 0.4 Eosinophils # 0.3 Basophils # 0.0 Nucleated Red Blood Cells # 0.0 Bedside Glucose 187 Medications Medications Current Medications Atorvastatin Calcium (Lipitor) 20 mg HS PO Last administered on 01/29/17t 20:50 ; Admin Dose 20 MG; Start 01/07/17 at 21:00 Miscellaneous Information 1 ea NOTE XX ; Start 01/07/17 at 17:30 Glucose (Glutose) 15 gm Q15M PRN PO DECREASED GLUCOSE; Start 01/07/17 at 17:30 Glucose (Glutose) 22.5 gm Q15M PRN PO DECREASED GLUCOSE; Start 01/07/17 at 17: 30 Dextrose (D50w Syringe) 25 ml Q15M PRN IV DECREASED GLUCOSE; Start 01/07/17 at 17:30 Dextrose (D50w Syringe) 50 ml Q15M PRN IV DECREASED GLUCOSE; Start 01/07/17 at 17:30 Glucagon (Glucagen) 1 mg Q15M PRN IM DECREASED GLUCOSE; Start 01/07/17 at 17:30 Glucose (Glutose) 15 gm Q15M PRN BUCCAL DECREASED GLUCOSE; Start 01/07/17 at 17 :30 Nifedipine (Procardia Xl) 30 mg DAILY PO Last administered on 01/30/17 08:28; Admin Dose 30 MG; Start 01/08/17 at 09:00 Docusate Sodium (Colace) 100 mg BID PRN PO CONSTIPATION Last administered on 11:56; Admin Dose 100 MG; Start 01/08/17 at 14:00 Acetaminophen (Tylenol Tab) 500 mg Q6H PRN PO PAIN AND OR ELEVATED TEMP Last administered on 01/30/17 03:37; Admin Dose 500 MG; Start 01/08/17 at 15:30 Diagnostic Test (Pha) (Accu-Chek) 1 ea 02 XX Last administered on 01/30/17 01: 19; Admin Dose 1 EA; Start 01/15/17 at 02:00 Insulin Aspart 10 unit 10 unit ONCE PRN SC ELEVATED GLUCOSE Last administered on 01/21/17 02:15; Admin Dose 10 UNIT; Start 01/17/17 at 02:00 Sodium Chloride (1/2 NS) 1,000 ml @ 40 mls/hr Q24H IV Last administered on 01/18 21:32; Admin Dose 75 MLS/HR; Start 01/17/17 at 17:00; Status Future Hold Nitroglycerin (Nitroglycerin (Sl Tab) 0.4 Mg) 1 tab Q5M PRN SL ANGINA; Start at 21:30 Epoetin Sean (Epogen (Esrd)) 10,000 units MoWeFr@17 SC Last administered on 21:15; Admin Dose 10,000 UNITS; Start 01/19/17 at 17:00 Lubiprostone (Amitiza) 24 mcg BID PO Last administered on 01/30/17 08:27; Admin Dose 24 MCG; Start 01/21/17 at 21:00 Ondansetron HCl (Zofran Inj) 4 mg Q4H PRN IV NAUSEA AND/OR VOMITING Last administered on 01/28/17 13:32; Admin Dose 4 MG; Start 01/24/17 at 13:30 Rifaximin (Xifaxan) 550 mg BID PO Last administered on 01/30/17 08:28; Admin Dose 550 MG; Start 01/26/17 at 09:00 IV Flush (NS 10 ml) 10 ml PRN PRN IV IV PROTOCOL; Start 01/27/17 at 15:00 Insulin Glargine 30 unit 30 unit DAILY@20 SC Last administered on 01/29/17 20: 53; Admin Dose 30 UNIT; Start 01/28/17 at 20:00 Ceftriaxone Sodium (Rocephin) 50 ml @ 100 mls/hr Q24H IVPB Last administered on 01/29/17 12:18; Admin Dose 100 MLS/HR; Start 01/29/17 at 11:30 Multivitamins Therapeutic (Theragran) 1 tab DAILY PO Last administered on 08:28; Admin Dose 1 TAB; Start 01/30/17 at 09:00 Lactulose (Enulose) 30 gm Q6 GTB Last administered on 01/30/17 01:19; Admin Dose 30 GM; Start 01/29/17 at 20:00 DANYEL HART MD Jan 30, 2017 11:59
[2017-01-30] MEDS: CEFTRIAXONE 2 GM/50 ML (PMX) 50 ML IVPB SCH (12:07)
--- NOTE | 2017-01-30 16:38 | CONS ---
Date/Time of Note Date/Time of Note DATE: 01/30/17 TIME: 16:37 Assessment/Plan Assessment/Plan Chief Complaint/Hosp Course 61-year-old male admitted for shortness of breath. Patient is a history of hepatitis C cirrhosis of liver, morbid obesity obstructive sleep apnea, diabetes mellitus and hypertension. Recent was brought to the emergency room for abdominal distention and shortness of breath. He was slightly nauseous. No GI bleeding no chest pain no or PAROLE AGENT problem no fever no chills. Problems: Additional Assessment/Plan 1. Shortness of breath multifactorial, much better 2. Morbid obesity, patient lost 22 pounds 3. Cirrhosis of liver with portal hypertension 4. Mild ascites 5. Diabetes 6. Hypertension 7. Renal failure 8. Anasarca 9. Bacteremia staph positive in the blood culture 10. No evidence of spontaneous bacterial peritonitis 11. Severe constipation, better 12. Profound weakness, second to dialysis 13. Encephalopathy, much better Plan P.o. fluid restriction 1000 cc a day Low-sodium diet Monitor BUN and creatinine closely Weight loss Supplemental oxygen Dietary consult, reduce calorie intake to 1000-calorie a day Discussed with the patient and the family Continue antibiotic Diuretic as per carbide die maker. Continue with the dialysis and remove fluid as tolerated by the patient Discussed with the son [id number] Increase the dose of lactulose both for high ammonia and constipation Avoid sedatives and narcotic Lactulose enema on a needed basis Restarted lactulose, patient is more awake and alert Consultation Date/Type/Reason Admit Date/Time Jan 07, 2017 at 10:13 Initial Consult Date 01/09/17 Type of Consultation: ID Referring Provider: JENY MORA MD 24 HR Interval Summary Constitutional: improved Exam/Review of Systems Vital Signs Vitals Vital Signs Date Time Temp Pulse Resp B/P Pulse Ox O2 Delivery O2 Flow Rate FiO2 01/30/17 16:18 98 3.0 01/30/17 16:18 86 20 Nasal Cannula 01/30/17 11:17 140/73 01/30/17 08:00 98.5 Intake and Output 01/29/17 01/29/17 01/30/17 15:00 23:00 07:00 Intake Total 660 ml 350 ml Output Total 300 ml 150 ml Balance 360 ml 200 ml Exam Constitutional: alert, oriented, well developed Psych: nl mood/affect, no complaints Head: atraumatic, normocephalic Eyes: EOMI, PERRL, nl conjunctiva, nl lids, nl sclera ENMT: nl external ears & nose, nl lips & teeth, nl nasal mucosa & septum Neck: non-tender, supple Respiratory: clear to auscultation, normal air movement Cardiovascular: nl pulses, regular rate and rhythm Gastrointestinal: nl liver, spleen, non-tender, soft Musculoskeletal: nl extremities to inspection, nl gait and stance Extremities: normal pulses 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: PAROLE AGENT II-XII intact, nl mental status, nl speech, nl strength Skin: nl turgor, No rash or lesions Lymph: nl lymph nodes Results Result Diagram: 01/30/17 0651 01/29/17 0653 Results 24 hrs Laboratory Tests Test 01/29/17 17:51 01/29/17 20:43 01/30/17 01:21 01/30/17 06:51 Bedside Glucose 203 237 H 205 White Blood Count 10.2 Red Blood Count 3.20 L Hemoglobin 8.0 L Hematocrit 27.5 L Mean Corpuscular Volume 85.9 Mean Corpuscular Hemoglobin 25.0 L Mean Corpuscular Hemoglobin Concent 29.1 L Red Cell Distribution Width 18.5 H Platelet Count 51 L Mean Platelet Volume Neutrophils % 84.8 H Lymphocytes % 7.8 L Monocytes % 3.9 Eosinophils % 2.5 Basophils % 0.2 Neutrophils # 8.7 H Lymphocytes # 0.8 Monocytes # 0.4 Eosinophils # 0.3 Basophils # 0.0 Nucleated Red Blood Cells # 0.0 Test 01/30/17 08:37 01/30/17 12:16 Bedside Glucose 187 189 Medications Medications Current Medications Atorvastatin Calcium (Lipitor) 20 mg HS PO Last administered on 01/29/17t 20:50 ; Admin Dose 20 MG; Start 01/07/17 at 21:00 Miscellaneous Information 1 ea NOTE XX ; Start 01/07/17 at 17:30 Glucose (Glutose) 15 gm Q15M PRN PO DECREASED GLUCOSE; Start 01/07/17 at 17:30 Glucose (Glutose) 22.5 gm Q15M PRN PO DECREASED GLUCOSE; Start 01/07/17 at 17: 30 Dextrose (D50w Syringe) 25 ml Q15M PRN IV DECREASED GLUCOSE; Start 01/07/17 at 17:30 Dextrose (D50w Syringe) 50 ml Q15M PRN IV DECREASED GLUCOSE; Start 01/07/17 at 17:30 Glucagon (Glucagen) 1 mg Q15M PRN IM DECREASED GLUCOSE; Start 01/07/17 at 17:30 Glucose (Glutose) 15 gm Q15M PRN BUCCAL DECREASED GLUCOSE; Start 01/07/17 at 17 :30 Nifedipine (Procardia Xl) 30 mg DAILY PO Last administered on 01/30/17 08:28; Admin Dose 30 MG; Start 01/08/17 at 09:00 Docusate Sodium (Colace) 100 mg BID PRN PO CONSTIPATION Last administered on 11:56; Admin Dose 100 MG; Start 01/08/17 at 14:00 Acetaminophen (Tylenol Tab) 500 mg Q6H PRN PO PAIN AND OR ELEVATED TEMP Last administered on 01/30/17 03:37; Admin Dose 500 MG; Start 01/08/17 at 15:30 Diagnostic Test (Pha) (Accu-Chek) 1 ea 02 XX Last administered on 01/30/17 01: 19; Admin Dose 1 EA; Start 01/15/17 at 02:00 Insulin Aspart 10 unit 10 unit ONCE PRN SC ELEVATED GLUCOSE Last administered on 01/21/17 02:15; Admin Dose 10 UNIT; Start 01/17/17 at 02:00 Sodium Chloride (1/2 NS) 1,000 ml @ 40 mls/hr Q24H IV Last administered on 01/18 21:32; Admin Dose 75 MLS/HR; Start 01/17/17 at 17:00; Status Future Hold Nitroglycerin (Nitroglycerin (Sl Tab) 0.4 Mg) 1 tab Q5M PRN SL ANGINA; Start at 21:30 Epoetin Sean (Epogen (Esrd)) 10,000 units MoWeFr@17 SC Last administered on 21:15; Admin Dose 10,000 UNITS; Start 01/19/17 at 17:00 Lubiprostone (Amitiza) 24 mcg BID PO Last administered on 01/30/17 08:27; Admin Dose 24 MCG; Start 01/21/17 at 21:00 Ondansetron HCl (Zofran Inj) 4 mg Q4H PRN IV NAUSEA AND/OR VOMITING Last administered on 01/28/17 13:32; Admin Dose 4 MG; Start 01/24/17 at 13:30 Rifaximin (Xifaxan) 550 mg BID PO Last administered on 01/30/17 08:28; Admin Dose 550 MG; Start 01/26/17 at 09:00 IV Flush (NS 10 ml) 10 ml PRN PRN IV IV PROTOCOL; Start 01/27/17 at 15:00 Insulin Glargine 30 unit 30 unit DAILY@20 SC Last administered on 01/29/17 20: 53; Admin Dose 30 UNIT; Start 01/28/17 at 20:00 Ceftriaxone Sodium (Rocephin) 50 ml @ 100 mls/hr Q24H IVPB Last administered on 01/30/17 12:07; Admin Dose 100 MLS/HR; Start 01/29/17 at 11:30 Multivitamins Therapeutic (Theragran) 1 tab DAILY PO Last administered on 08:28; Admin Dose 1 TAB; Start 01/30/17 at 09:00 Lactulose (Enulose) 30 gm Q6 GTB Last administered on 01/30/17 12:07; Admin Dose 30 GM; Start 01/29/17 at 20:00 STUART STANLEY MD Jan 30, 2017 16:37
[2017-01-30] MEDS: EPOETIN 10000 UNITS/1 ML INJ (ESRD) SC SCH (17:03)
--- NOTE | 2017-01-30 18:34 | PN ---
Date/Time of Note Date/Time of Note DATE: 01/30/17 TIME: 18:28 Assessment/Plan Lines/Catheters IV Catheter Type (from Nrs): PICC Line Sykes in Place (from Nrs): Yes Assessment/Plan Chief Complaint/Hosp Course 1. Mobrid obesity: BMI 48 -encourage weight loss -nutrition optimization -eventual bariatric surgery when medically stable 2. CHF: dyspnea with pulmonary congestion; dyspnea improved -continue diuresis per cards/renal -medical optimization -HD 3. Elevated troponin: renal failure vs NSTEMI; invasive/stress testing not recommended at this time per cards -trend and monitor 4. Chronic kidney disease: HD -per renal 5. Diabetes: blood sugar labile; on long acting and short acting insulin -optimize blood sugar control 6. Hypertension: controlled -cont. antihypertensives 7. YEVGENIY: morbid obesity, dyspnea improved after HD -cpap 8. Leukocytosis: on steroids; (repeat blood cx: no growth) vs. dvt; no fevers; ascitic fluid (low PMN- not the source per ID); cultures no growth, wbc improving -abx per sensitivity 9. Dyspnea: multifactorial chf+ morbid obesity + ascites + YEVGENIY; improved; s/p dialysis -supportive -as above 10. Hyponatremia now with hypernatremia: s/p dialysis; improving - judicious fluid management 11. Anemia: CKD +/- chronic disease; doubt active bleed; h/h improved -monitor -transfuse as needed 12. Hypothyroidism; low tsh/t4 -medical optimization 13. Hypocalcemia: likely 2/2 poor nutrition + hypothyroid -optimize lytes -as above -medical optimization 14. Hypoalbuminemia: liver disease +/- malnutrition, -replete -nutrition optimization 15. Hepatic encephalopathy: Hepatitis C history, on treatment; ammonia levels improving; more awake and oriented -per gi/hepatology 16. Thrombocytosis: 2/2 liver disease -bleeding precautions -supportive Patient seen and examined in collaboration with Dr. Marcelino Morales Problems: Subjective 24 Hr Interval Summary More awake, up in chair. Breathing comfortably. No fevers, chills, mccallum, sz, dizziness, cough, n/v/d, itching, rash. Exam/Review of Systems Vital Signs Vitals Vital Signs Date Time Temp Pulse Resp B/P Pulse Ox O2 Delivery O2 Flow Rate FiO2 01/30/17 16:39 92 01/30/17 16:18 98 3.0 01/30/17 16:18 20 Nasal Cannula 01/30/17 16:00 99.1 144/76 Intake and Output 01/29/17 01/29/17 01/30/17 15:00 23:00 07:00 Intake Total 660 ml 350 ml Output Total 300 ml 150 ml Balance 360 ml 200 ml Exam Free Text/Dictation Constitutional: awake, obese, oriented Psych: nl mood/affect, no complaints Head: atraumatic, normocephalic Eyes: nl conjunctiva, nl lids ENMT: mucosa pink and moist Neck: non-tender, supple; right IJ Respiratory: diminished breath sounds; no use of accessory muscles, breathing easily Cardiovascular: regular rate and rhythm Gastrointestinal: distended (mod), non-tender, soft Genitourinary - Male: nl penis, nl scrotum, No CVA tenderness; sykes, clear urine output Musculoskeletal: nl extremities to inspection Extremities: edema (ble 3+), normal pulses 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: no nl mental status, nl speech Skin: No rash or lesions Results Result Diagram: 01/30/17 0651 01/29/17 0653 ERLINDA VALLE NP Jan 30, 2017 18:34
[2017-01-30] MEDS: ATORVASTATIN 20 MG TAB PO SCH (21:00)
[2017-01-30] MEDS: INSULIN GLARGINE [LANtus] 3 ML PEN SC SCH (21:20)
[2017-01-31] VITALS (12 sets, daily range): BP systolic 114–127; BP diastolic 57–70; PULSE 82–90; RESP 18–19
[2017-01-31] MEDS: ACETAMINOPHEN 500 MG TAB PO PRN ×2 (02:22→10:38)
[2017-01-31] MEDS: ACCU-CHEK XX SCH (02:25)
[2017-01-31] MEDS: LACTULOSE 30ML CUP GTB SCH ×5 (06:06→23:35)
[2017-01-31] MEDS: RIFAXIMIN 550 MG TAB PO SCH ×2 (08:30→20:14)
[2017-01-31] MEDS: INSULIN ASPART [NOVOLOG] 3 ML PEN SC SCH ×4 (08:30→21:00)
[2017-01-31] MEDS: LUBIPROSTONE 24 MCG CAP PO SCH ×2 (08:31→20:14)
[2017-01-31] MEDS: MULTIVITAMINS THERAPEUTIC TAB PO SCH (08:31)
[2017-01-31] MEDS: NIFEdipine (XL) 30 MG TAB PO SCH (08:35)
[2017-01-31 09:17] LABS: ABNORMAL IP MESSAGE 1; BASOPHILS % 0.3 % (0.0-2.0); EOSINOPHILS # 0.3 10^3/ul (0.0-0.5); EOSINOPHILS % 3.6 % (0.0-7.0); HEMATOCRIT 25.2 % (42.0-52.0); HEMOGLOBIN 7.4 g/dl (14.0-18.0); LYMPHOCYTES # 0.7 10^3/ul (0.8-2.9); LYMPHOCYTES % 9.7 % (15.0-51.0); MEAN CORPUSCULAR HEMOGLOBIN 25.4 pg (29.0-33.0); MEAN CORPUSCULAR HGB CONC 29.4 g/dl (32.0-37.0); MEAN CORPUSCULAR VOLUME 86.6 fl (82.0-101.0); MEAN PLATELET VOLUME 11.7 fl (7.4-10.4); MONOCYTE # 0.4 10^3/ul (0.3-0.9); NEUTROPHIL # 5.7 10^3/ul (1.6-7.5); NEUTROPHILS % 80.8 % (39.0-77.0); POSITIVE DIFF @See below; RED BLOOD COUNT 2.91 10^6/ul (4.70-6.10); RED CELL DISTRIBUTION WIDTH 19.2 % (11.5-14.5)
[2017-01-31 09:26] LABS: PLATELET COUNT 44 10^3/UL (140-415)
[2017-01-31 09:37] LABS: ALBUMIN 2.6 g/dl (3.3-4.9); ALBUMIN/GLOBULIN RATIO 0.6; BILIRUBIN,INDIRECT 0.2 mg/dl (0-1.1); BILIRUBIN,TOTAL 0.2 mg/dl (0.2-1.3); CALCIUM 7.7 mg/dl (8.4-10.2); CREATININE 5.14 mg/dl (0.61-1.24); TOTAL PROTEIN 6.9 g/dl (6.1-8.1)
[2017-01-31] MEDS: ALBUTEROL/IPRATROPIUM (NEB) 3 ML AMP HHN SCH ×4 (09:54→19:53)
--- NOTE | 2017-01-31 10:56 | CONS ---
Date/Time of Note Date/Time of Note DATE: 01/31/17 TIME: 10:54 Assessment/Plan Assessment/Plan Additional Assessment/Plan Assessment recommendations; 1. Patient admitted for hypercapnic respiratory failure due to underlying severe sleep apnea with significant clinical improvement. 2. History of hepatitis C with pancytopenia. 3. History of hypertension and diabetes. 4. Morbid obesity. Continue current treatment. Consultation Date/Type/Reason Admit Date/Time Jan 07, 2017 at 10:13 Initial Consult Date 01/26/17 Type of Consultation: Pulmonary Referring Provider: JENY MORA MD 24 HR Interval Summary Free Text/Dictation Patient condition stable. Remains awake alert. Denies any significant shortness of breath. General exam; elderly male, morbidly obese, currently in no distress. Awake and alert. Exam/Review of Systems Vital Signs Vitals Vital Signs Date Time Temp Pulse Resp B/P Pulse Ox O2 Delivery O2 Flow Rate FiO2 01/31/17 09:54 81 18 94 Nasal Cannula 3.0 01/31/17 08:35 99.2 126/60 Intake and Output 01/30/17 01/30/17 01/31/17 15:00 23:00 07:00 Intake Total 1000 ml 450 ml 300 ml Output Total 4500 ml 200 ml 200 ml Balance -3500 ml 250 ml 100 ml Exam HEENT exam; supple neck, positive JVD. No lymphadenopathy. Midline trachea. No thyromegaly. Patient has fair dentition. No neck masses. Chest exam; diminished but clear vessel. S1-S2 audible, no murmurs. Regular rhythm. Abdomen exam; soft, protuberant. No organomegaly. Bowel sounds audible. Extremity exam; no peripheral edema. Pulses 1+ bilaterally. No clubbing. OUTBOUND SALES REPRESENTATIVE exam; no focal deficit. Results Result Diagram: 01/31/17 0850 01/31/17 0850 Results 24 hrs Laboratory Tests Test 01/30/17 12:16 01/30/17 18:07 01/30/17 21:05 01/31/17 02:24 Bedside Glucose 189 232 H 245 H 202 Test 01/31/17 08:09 01/31/17 08:50 Bedside Glucose 185 White Blood Count 7.0 # Red Blood Count 2.91 L Hemoglobin 7.4 L Hematocrit 25.2 L Mean Corpuscular Volume 86.6 Mean Corpuscular Hemoglobin 25.4 L Mean Corpuscular Hemoglobin Concent 29.4 L Red Cell Distribution Width 19.2 H Platelet Count 44 L Mean Platelet Volume 11.7 H Neutrophils % 80.8 H Lymphocytes % 9.7 L Monocytes % 5.0 Eosinophils % 3.6 Basophils % 0.3 Nucleated Red Blood Cells % 0.0 Neutrophils # 5.7 Lymphocytes # 0.7 L Monocytes # 0.4 Eosinophils # 0.3 Basophils # 0.0 Nucleated Red Blood Cells # 0.0 Sodium Level 144 Potassium Level 3.0 L Chloride Level 103 Carbon Dioxide Level 28 Anion Gap 16 Blood Urea Nitrogen 32 H Creatinine 5.14 H Glucose Level 183 Calcium Level 7.7 L Total Bilirubin 0.2 Direct Bilirubin 0.00 Indirect Bilirubin 0.2 Aspartate Amino Transf (AST/SGOT) 29 Alanine Aminotransferase (ALT/SGPT) 41 Alkaline Phosphatase 123 H Total Protein 6.9 Albumin 2.6 L Globulin 4.30 H Albumin/Globulin Ratio 0.60 Medications Medications Current Medications Atorvastatin Calcium (Lipitor) 20 mg HS PO Last administered on 01/29/17 20:50 ; Admin Dose 20 MG; Start 01/07/17 at 21:00 Miscellaneous Information 1 ea NOTE XX ; Start 01/07/17 at 17:30 Glucose (Glutose) 15 gm Q15M PRN PO DECREASED GLUCOSE; Start 01/07/17 at 17:30 Glucose (Glutose) 22.5 gm Q15M PRN PO DECREASED GLUCOSE; Start 01/07/17 at 17: 30 Dextrose (D50w Syringe) 25 ml Q15M PRN IV DECREASED GLUCOSE; Start 01/07/17 at 17:30 Dextrose (D50w Syringe) 50 ml Q15M PRN IV DECREASED GLUCOSE; Start 01/07/17 at 17:30 Glucagon (Glucagen) 1 mg Q15M PRN IM DECREASED GLUCOSE; Start 01/07/17 at 17:30 Glucose (Glutose) 15 gm Q15M PRN BUCCAL DECREASED GLUCOSE; Start 01/07/17 at 17 :30 Nifedipine (Procardia Xl) 30 mg DAILY PO Last administered on 01/31/17 08:35; Admin Dose 30 MG; Start 01/08/17 at 09:00 Docusate Sodium (Colace) 100 mg BID PRN PO CONSTIPATION Last administered on 11:56; Admin Dose 100 MG; Start 01/08/17 at 14:00 Acetaminophen (Tylenol Tab) 500 mg Q6H PRN PO PAIN AND OR ELEVATED TEMP Last administered on 01/31/17 10:38; Admin Dose 500 MG; Start 01/08/17 at 15:30 Diagnostic Test (Pha) (Accu-Chek) 1 ea 02 XX Last administered on 01/31/17 02: 25; Admin Dose 1 EA; Start 01/15/17 at 02:00 Insulin Aspart 10 unit 10 unit ONCE PRN SC ELEVATED GLUCOSE Last administered on 01/21/17 02:15; Admin Dose 10 UNIT; Start 01/17/17 at 02:00 Sodium Chloride (1/2 NS) 1,000 ml @ 40 mls/hr Q24H IV Last administered on 01/18 21:32; Admin Dose 75 MLS/HR; Start 01/17/17 at 17:00; Status Future Hold Nitroglycerin (Nitroglycerin (Sl Tab) 0.4 Mg) 1 tab Q5M PRN SL ANGINA; Start at 21:30 Epoetin Sean (Epogen (Esrd)) 10,000 units MoWeFr@17 SC Last administered on 17:03; Admin Dose 10,000 UNITS; Start 01/19/17 at 17:00 Lubiprostone (Amitiza) 24 mcg BID PO Last administered on 01/31/17 08:31; Admin Dose 24 MCG; Start 01/21/17 at 21:00 Ondansetron HCl (Zofran Inj) 4 mg Q4H PRN IV NAUSEA AND/OR VOMITING Last administered on 01/28/17 13:32; Admin Dose 4 MG; Start 01/24/17 at 13:30 Rifaximin (Xifaxan) 550 mg BID PO Last administered on 01/31/17 08:30; Admin Dose 550 MG; Start 01/26/17 at 09:00 IV Flush (NS 10 ml) 10 ml PRN PRN IV IV PROTOCOL; Start 01/27/17 at 15:00 Insulin Glargine 30 unit 30 unit DAILY@20 SC Last administered on 01/30/17 21: 20; Admin Dose 30 UNIT; Start 01/28/17 at 20:00 Ceftriaxone Sodium (Rocephin) 50 ml @ 100 mls/hr Q24H IVPB Last administered on 01/30/17 12:07; Admin Dose 100 MLS/HR; Start 01/29/17 at 11:30 Multivitamins Therapeutic (Theragran) 1 tab DAILY PO Last administered on 08:31; Admin Dose 1 TAB; Start 01/30/17 at 09:00 Lactulose (Enulose) 30 gm Q6 GTB Last administered on 01/31/17 06:06; Admin Dose 30 GM; Start 01/29/17 at 20:00 WALDO FRASER Jan 31, 2017 10:56
[2017-01-31] MEDS: CEFTRIAXONE 2 GM/50 ML (PMX) 50 ML IVPB SCH (12:31)
--- NOTE | 2017-01-31 13:34 | CONS ---
Date/Time of Note Date/Time of Note DATE: 01/31/17 TIME: 13:33 Assessment/Plan Assessment/Plan Chief Complaint/Hosp Course 61-year-old male admitted for shortness of breath. Patient is a history of hepatitis C cirrhosis of liver, morbid obesity obstructive sleep apnea, diabetes mellitus and hypertension. Recent was brought to the emergency room for abdominal distention and shortness of breath. He was slightly nauseous. 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 Problems: Additional Assessment/Plan 1. Shortness of breath multifactorial, much better 2. Morbid obesity, patient lost 22 pounds 3. Cirrhosis of liver with portal hypertension 4. Mild ascites 5. Diabetes 6. Hypertension 7. Renal failure 8. Anasarca 9. Bacteremia staph positive in the blood culture 10. No evidence of spontaneous bacterial peritonitis 11. Severe constipation, better 12. Profound weakness, second to dialysis 13. Encephalopathy, much better Plan P.o. fluid restriction 1000 cc a day Low-sodium diet Monitor BUN and creatinine closely Weight loss Supplemental oxygen Dietary consult, reduce calorie intake to 1000-calorie a day Discussed with the patient and the family Continue antibiotic Diuretic as per focusing machine operator. Continue with the dialysis and remove fluid as tolerated by the patient Discussed with the son [id number] Increase the dose of lactulose both for high ammonia and constipation Avoid sedatives and narcotic Lactulose enema on a needed basis Restarted lactulose, patient is more awake and alert Discussed with the family patient needs to ambulate Consultation Date/Type/Reason Admit Date/Time Jan 07, 2017 at 10:13 Initial Consult Date 01/09/17 Type of Consultation: Pulmonary Referring Provider: JENY MORA MD 24 HR Interval Summary Constitutional: improved Exam/Review of Systems Vital Signs Vitals Vital Signs Date Time Temp Pulse Resp B/P Pulse Ox O2 Delivery O2 Flow Rate FiO2 01/31/17 12:25 88 01/31/17 12:18 20 96 Nasal Cannula 3.0 01/31/17 11:39 98.5 127/58 Intake and Output 01/30/17 01/30/17 01/31/17 15:00 23:00 07:00 Intake Total 1000 ml 450 ml 300 ml Output Total 4500 ml 200 ml 200 ml Balance -3500 ml 250 ml 100 ml Exam Constitutional: alert, oriented, well developed Psych: nl mood/affect, no complaints Head: atraumatic, normocephalic Eyes: EOMI, PERRL, nl conjunctiva, nl lids, nl sclera ENMT: nl external ears & nose, nl lips & teeth, nl nasal mucosa & septum Neck: non-tender, supple Respiratory: clear to auscultation, normal air movement Cardiovascular: nl pulses, regular rate and rhythm Gastrointestinal: nl liver, spleen, non-tender, soft Musculoskeletal: nl extremities to inspection, nl gait and stance Extremities: normal pulses 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: FIELD CANE SCALER HELPER II-XII intact, nl mental status, nl speech, nl strength Skin: nl turgor, No rash or lesions Lymph: nl lymph nodes Results Result Diagram: 01/31/17 0850 01/31/17 0850 Results 24 hrs Laboratory Tests Test 01/30/17 18:07 01/30/17 21:05 01/31/17 02:24 01/31/17 08:09 Bedside Glucose 232 H 245 H 202 185 Test 01/31/17 08:50 01/31/17 12:55 White Blood Count 7.0 # Red Blood Count 2.91 L Hemoglobin 7.4 L Hematocrit 25.2 L Mean Corpuscular Volume 86.6 Mean Corpuscular Hemoglobin 25.4 L Mean Corpuscular Hemoglobin Concent 29.4 L Red Cell Distribution Width 19.2 H Platelet Count 44 L Mean Platelet Volume 11.7 H Neutrophils % 80.8 H Lymphocytes % 9.7 L Monocytes % 5.0 Eosinophils % 3.6 Basophils % 0.3 Nucleated Red Blood Cells % 0.0 Neutrophils # 5.7 Lymphocytes # 0.7 L Monocytes # 0.4 Eosinophils # 0.3 Basophils # 0.0 Nucleated Red Blood Cells # 0.0 Sodium Level 144 Potassium Level 3.0 L Chloride Level 103 Carbon Dioxide Level 28 Anion Gap 16 Blood Urea Nitrogen 32 H Creatinine 5.14 H Glucose Level 183 Calcium Level 7.7 L Total Bilirubin 0.2 Direct Bilirubin 0.00 Indirect Bilirubin 0.2 Aspartate Amino Transf (AST/SGOT) 29 Alanine Aminotransferase (ALT/SGPT) 41 Alkaline Phosphatase 123 H Total Protein 6.9 Albumin 2.6 L Globulin 4.30 H Albumin/Globulin Ratio 0.60 Bedside Glucose 200 Medications Medications Current Medications Atorvastatin Calcium (Lipitor) 20 mg HS PO Last administered on 01/29/17 20:50 ; Admin Dose 20 MG; Start 6/28/17 at 21:00 Miscellaneous Information 1 ea NOTE XX ; Start 01/07/17 at 17:30 Glucose (Glutose) 15 gm Q15M PRN PO DECREASED GLUCOSE; Start 01/07/17 at 17:30 Glucose (Glutose) 22.5 gm Q15M PRN PO DECREASED GLUCOSE; Start 01/07/17 at 17: 30 Dextrose (D50w Syringe) 25 ml Q15M PRN IV DECREASED GLUCOSE; Start 01/07/17 at 17:30 Dextrose (D50w Syringe) 50 ml Q15M PRN IV DECREASED GLUCOSE; Start 01/07/17 at 17:30 Glucagon (Glucagen) 1 mg Q15M PRN IM DECREASED GLUCOSE; Start 01/07/17 at 17:30 Glucose (Glutose) 15 gm Q15M PRN BUCCAL DECREASED GLUCOSE; Start 01/07/17 at 17 :30 Nifedipine (Procardia Xl) 30 mg DAILY PO Last administered on 01/31/17 08:35; Admin Dose 30 MG; Start 01/08/17 at 09:00 Docusate Sodium (Colace) 100 mg BID PRN PO CONSTIPATION Last administered on 11:56; Admin Dose 100 MG; Start 01/08/17 at 14:00 Acetaminophen (Tylenol Tab) 500 mg Q6H PRN PO PAIN AND OR ELEVATED TEMP Last administered on 01/31/17 10:38; Admin Dose 500 MG; Start 01/08/17 at 15:30 Diagnostic Test (Pha) (Accu-Chek) 1 ea 02 XX Last administered on 01/31/17 02: 25; Admin Dose 1 EA; Start 01/15/17 at 02:00 Insulin Aspart 10 unit 10 unit ONCE PRN SC ELEVATED GLUCOSE Last administered on 01/21/17 02:15; Admin Dose 10 UNIT; Start 01/17/17 at 02:00 Sodium Chloride (1/2 NS) 1,000 ml @ 40 mls/hr Q24H IV Last administered on 01/18 21:32; Admin Dose 75 MLS/HR; Start 01/17/17 at 17:00; Status Future Hold Nitroglycerin (Nitroglycerin (Sl Tab) 0.4 Mg) 1 tab Q5M PRN SL ANGINA; Start at 21:30 Epoetin Sean (Epogen (Esrd)) 10,000 units MoWeFr@17 SC Last administered on 17:03; Admin Dose 10,000 UNITS; Start 01/19/17 at 17:00 Lubiprostone (Amitiza) 24 mcg BID PO Last administered on 01/31/17 08:31; Admin Dose 24 MCG; Start 01/21/17 at 21:00 Ondansetron HCl (Zofran Inj) 4 mg Q4H PRN IV NAUSEA AND/OR VOMITING Last administered on 01/28/17 13:32; Admin Dose 4 MG; Start 01/24/17 at 13:30 Rifaximin (Xifaxan) 550 mg BID PO Last administered on 01/31/17 08:30; Admin Dose 550 MG; Start 01/26/17 at 09:00 IV Flush 10 ml 10 ml PRN PRN IV IV PROTOCOL; Start 01/27/17 at 15:00 Ceftriaxone Sodium (Rocephin) 50 ml @ 100 mls/hr Q24H IVPB Last administered on 01/31/17 12:31; Admin Dose 100 MLS/HR; Start 01/29/17 at 11:30 Multivitamins Therapeutic (Theragran) 1 tab DAILY PO Last administered on 08:31; Admin Dose 1 TAB; Start 01/30/17 at 09:00 Lactulose (Enulose) 30 gm Q6 GTB Last administered on 01/31/17 12:59; Admin Dose 30 GM; Start 01/29/17 at 20:00 Insulin Glargine 32 unit 32 unit DAILY@20 SC ; Start 01/31/17 at 20:00 Potassium Chloride/Sodium Chloride (KCl/NS) 165 ml @ 55 mls/hr ONCE ONCE IVPB ; Start 01/31/17 at 15:00; Stop 01/31/17 at 17:59 STUART STANLEY MD Jan 31, 2017 13:34
--- NOTE | 2017-01-31 14:37 | CONS ---
Date/Time of Note Date/Time of Note DATE: 01/31/17 TIME: 14:35 Assessment/Plan Assessment/Plan Additional Assessment/Plan 1. Chronic kidney disease, now on dialysis. HD planned for tomorrow 2. 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 He has been treated for hepatitis C virus. 3. Hypertension 4. Hyperlipidemia 5. Anemia 6. Congestive heart failure . F 7. Obstructive sleep apnea 8. Altered level of consciousness/hepatic encephalopathy, improved Consultation Date/Type/Reason Admit Date/Time Jan 07, 2017 at 10:13 Initial Consult Date 01/26/17 Type of Consultation: Renal Referring Provider: JENY MORA MD 24 HR Interval Summary Free Text/Dictation The patient is alert, he denies SOB, feels weak. Exam/Review of Systems Vital Signs Vitals Vital Signs Date Time Temp Pulse Resp B/P Pulse Ox O2 Delivery O2 Flow Rate FiO2 01/31/17 12:25 88 01/31/17 12:18 20 96 Nasal Cannula 3.0 01/31/17 11:39 98.5 127/58 Intake and Output 01/30/17 01/30/17 01/31/17 15:00 23:00 07:00 Intake Total 1000 ml 450 ml 300 ml Output Total 4500 ml 200 ml 200 ml Balance -3500 ml 250 ml 100 ml Exam Constitutional: alert Respiratory: clear to auscultation Cardiovascular: regular rate and rhythm Gastrointestinal: distended Extremities: edema Results Result Diagram: 01/31/17 0850 01/31/17 0850 Results 24 hrs Laboratory Tests Test 01/30/17 18:07 01/30/17 21:05 01/31/17 02:24 01/31/17 08:09 Bedside Glucose 232 H 245 H 202 185 Test 01/31/17 08:50 01/31/17 12:55 White Blood Count 7.0 # Red Blood Count 2.91 L Hemoglobin 7.4 L Hematocrit 25.2 L Mean Corpuscular Volume 86.6 Mean Corpuscular Hemoglobin 25.4 L Mean Corpuscular Hemoglobin Concent 29.4 L Red Cell Distribution Width 19.2 H Platelet Count 44 L Mean Platelet Volume 11.7 H Neutrophils % 80.8 H Lymphocytes % 9.7 L Monocytes % 5.0 Eosinophils % 3.6 Basophils % 0.3 Nucleated Red Blood Cells % 0.0 Neutrophils # 5.7 Lymphocytes # 0.7 L Monocytes # 0.4 Eosinophils # 0.3 Basophils # 0.0 Nucleated Red Blood Cells # 0.0 Sodium Level 144 Potassium Level 3.0 L Chloride Level 103 Carbon Dioxide Level 28 Anion Gap 16 Blood Urea Nitrogen 32 H Creatinine 5.14 H Glucose Level 183 Calcium Level 7.7 L Total Bilirubin 0.2 Direct Bilirubin 0.00 Indirect Bilirubin 0.2 Aspartate Amino Transf (AST/SGOT) 29 Alanine Aminotransferase (ALT/SGPT) 41 Alkaline Phosphatase 123 H Total Protein 6.9 Albumin 2.6 L Globulin 4.30 H Albumin/Globulin Ratio 0.60 Bedside Glucose 200 Medications Medications Current Medications Atorvastatin Calcium (Lipitor) 20 mg HS PO Last administered on 01/29/17 20:50 ; Admin Dose 20 MG; Start 01/07/17 at 21:00 Miscellaneous Information 1 ea NOTE XX ; Start 01/07/17 at 17:30 Glucose (Glutose) 15 gm Q15M PRN PO DECREASED GLUCOSE; Start 01/07/17 at 17:30 Glucose (Glutose) 22.5 gm Q15M PRN PO DECREASED GLUCOSE; Start 01/07/17 at 17: 30 Dextrose (D50w Syringe) 25 ml Q15M PRN IV DECREASED GLUCOSE; Start 01/07/17 at 17:30 Dextrose (D50w Syringe) 50 ml Q15M PRN IV DECREASED GLUCOSE; Start 01/07/17 at 17:30 Glucagon (Glucagen) 1 mg Q15M PRN IM DECREASED GLUCOSE; Start 01/07/17 at 17:30 Glucose (Glutose) 15 gm Q15M PRN BUCCAL DECREASED GLUCOSE; Start 01/07/17 at 17 :30 Nifedipine (Procardia Xl) 30 mg DAILY PO Last administered on 01/31/17 08:35; Admin Dose 30 MG; Start 01/08/17 at 09:00 Docusate Sodium (Colace) 100 mg BID PRN PO CONSTIPATION Last administered on 11:56; Admin Dose 100 MG; Start 01/08/17 at 14:00 Acetaminophen (Tylenol Tab) 500 mg Q6H PRN PO PAIN AND OR ELEVATED TEMP Last administered on 01/31/17 10:38; Admin Dose 500 MG; Start 01/08/17 at 15:30 Diagnostic Test (Pha) (Accu-Chek) 1 ea 02 XX Last administered on 01/31/17 02: 25; Admin Dose 1 EA; Start 01/15/17 at 02:00 Insulin Aspart 10 unit 10 unit ONCE PRN SC ELEVATED GLUCOSE Last administered on 01/21/17 02:15; Admin Dose 10 UNIT; Start 01/17/17 at 02:00 Sodium Chloride (1/2 NS) 1,000 ml @ 40 mls/hr Q24H IV Last administered on 01/18 21:32; Admin Dose 75 MLS/HR; Start 01/17/17 at 17:00; Status Future Hold Nitroglycerin (Nitroglycerin (Sl Tab) 0.4 Mg) 1 tab Q5M PRN SL ANGINA; Start at 21:30 Epoetin Sean (Epogen (Esrd)) 10,000 units MoWeFr@17 SC Last administered on 17:03; Admin Dose 10,000 UNITS; Start 01/19/17 at 17:00 Lubiprostone (Amitiza) 24 mcg BID PO Last administered on 01/31/17 08:31; Admin Dose 24 MCG; Start 01/21/17 at 21:00 Ondansetron HCl (Zofran Inj) 4 mg Q4H PRN IV NAUSEA AND/OR VOMITING Last administered on 01/28/17 13:32; Admin Dose 4 MG; Start 01/24/17 at 13:30 Rifaximin (Xifaxan) 550 mg BID PO Last administered on 01/31/17 08:30; Admin Dose 550 MG; Start 01/26/17 at 09:00 IV Flush 10 ml 10 ml PRN PRN IV IV PROTOCOL; Start 01/27/17 at 15:00 Ceftriaxone Sodium (Rocephin) 50 ml @ 100 mls/hr Q24H IVPB Last administered on 01/31/17 12:31; Admin Dose 100 MLS/HR; Start 01/29/17 at 11:30 Multivitamins Therapeutic (Theragran) 1 tab DAILY PO Last administered on 08:31; Admin Dose 1 TAB; Start 01/30/17 at 09:00 Lactulose (Enulose) 30 gm Q6 GTB Last administered on 01/31/17 12:59; Admin Dose 30 GM; Start 01/29/17 at 20:00 Insulin Glargine 32 unit 32 unit DAILY@20 SC ; Start 01/31/17 at 20:00 Potassium Chloride/Sodium Chloride (KCl/NS) 165 ml @ 55 mls/hr ONCE ONCE IVPB ; Start 01/31/17 at 15:00; Stop 01/31/17 at 17:59 SHANA LEMA MD Jan 31, 2017 14:37
[2017-01-31] MEDS ORDERED: POTASSIUM CHLORIDE 30 MEQ in SOD CHLORIDE 0.9% 150 ML IVPB ONE (15:00)
--- NOTE | 2017-01-31 18:44 | RADRPT ---
PROCEDURE: XR Chest. CLINICAL INDICATION: Shortness of breath. TECHNIQUE: Single frontal view. COMPARISON: 01/27/2017. FINDINGS: The right internal jugular vein tunneled dialysis catheter and left arm PICC line remain in satisfac tory position. Mild pulmonary edema is slightly worse. The lungs are otherwise clear. The heart is enlarged. There is no pleural effusion. There is no pneumothorax. IMPRESSION: 1. Slightly worse appearance of the lungs. 2. No other change from 01/27/2017. RPTAT: QQ .Ulices Silva MD, MD Date Time Electronically viewed and signed by .Ulices Silva MD, MD on 01/31/2017 18:43 .R/
[2017-01-31] MEDS: ATORVASTATIN 20 MG TAB PO SCH (20:14)
--- NOTE | 2017-01-31 20:17 | PN ---
Date/Time of Note Date/Time of Note DATE: 01/31/17 TIME: 20:16 Assessment/Plan Lines/Catheters IV Catheter Type (from Nrs): PICC Line Sykes in Place (from Nrs): Yes Assessment/Plan Chief Complaint/Hosp Course 1. [place] obesity: BMI 48 -encourage weight loss -nutrition optimization -eventual bariatric surgery when medically stable 2. CHF: dyspnea with pulmonary congestion; dyspnea improved -continue diuresis per cards/renal -medical optimization -HD 3. Elevated troponin: renal failure vs NSTEMI; invasive/stress testing not recommended at this time per cards -trend and monitor 4. Chronic kidney disease: HD -per renal 5. Diabetes: blood sugar labile; on long acting and short acting insulin -optimize blood sugar control 6. Hypertension: controlled -cont. antihypertensives 7. YEVGENIY: morbid obesity, dyspnea improved after HD -cpap 8. Leukocytosis: on steroids; (repeat blood cx: no growth) vs. dvt; no fevers; ascitic fluid (low PMN- not the source per ID); cultures no growth, wbc improving -abx per sensitivity 9. Dyspnea: multifactorial chf+ morbid obesity + ascites + YEVGENIY; improved; s/p dialysis -supportive -as above 10. Hyponatremia now with hypernatremia: s/p dialysis; improving - judicious fluid management 11. Anemia: CKD +/- chronic disease; doubt active bleed; h/h improved -monitor -transfuse as needed 12. Hypothyroidism; low tsh/t4 -medical optimization 13. Hypocalcemia: likely 2/2 poor nutrition + hypothyroid -optimize lytes -as above -medical optimization 14. Hypoalbuminemia: liver disease +/- malnutrition, -replete -nutrition optimization 15. Hepatic encephalopathy: Hepatitis C history, on treatment; ammonia levels improving; more awake and oriented -per gi/hepatology 16. Thrombocytosis: 2/2 liver disease -bleeding precautions -supportive Thank you, Problems: Subjective 24 Hr Interval Summary More awake, up in chair. Breathing comfortably. No fevers, chills, mccallum, sz, dizziness, cough, n/v/d, itching, rash. Exam/Review of Systems Vital Signs Vitals Vital Signs Date Time Temp Pulse Resp B/P Pulse Ox O2 Delivery O2 Flow Rate FiO2 01/31/17 20:10 96 3.0 31 01/31/17 20:05 84 20 01/31/17 20:05 98.6 123/63 01/31/17 19:32 Nasal Cannula Intake and Output 01/30/17 01/30/17 01/31/17 15:00 23:00 07:00 Intake Total 1000 ml 450 ml 300 ml Output Total 4500 ml 200 ml 200 ml Balance -3500 ml 250 ml 100 ml Exam Free Text/Dictation Constitutional: awake, obese, oriented Psych: nl mood/affect, no complaints Head: atraumatic, normocephalic Eyes: nl conjunctiva, nl lids ENMT: mucosa pink and moist Neck: non-tender, supple; right IJ Respiratory: diminished breath sounds; no use of accessory muscles, breathing easily Cardiovascular: regular rate and rhythm Gastrointestinal: distended (mod), non-tender, soft Genitourinary - Male: nl penis, nl scrotum, No CVA tenderness; sykes, clear urine output Musculoskeletal: nl extremities to inspection Extremities: edema (ble 3+), normal pulses 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: no nl mental status, nl speech Skin: No rash or lesions Results Result Diagram: 01/31/17 0850 01/31/17 0850 TERRELL PEREZ MD Jan 31, 2017 20:17
[2017-01-31] MEDS: INSULIN GLARGINE [LANtus] 3 ML PEN SC SCH (20:55)
[2017-02-01] VITALS (25 sets, daily range): BP systolic 107–133; BP diastolic 49–72; PULSE 80–92; RESP 17–22
[2017-02-01] MEDS: ACCU-CHEK XX SCH (02:00)
[2017-02-01 04:52] LABS: ABNORMAL IP MESSAGE 1; BASOPHILS % 0.3 % (0.0-2.0); EOSINOPHILS # 0.2 10^3/ul (0.0-0.5); HEMATOCRIT 23.8 % (42.0-52.0); HEMOGLOBIN 7.1 g/dl (14.0-18.0); LYMPHOCYTES # 0.8 10^3/ul (0.8-2.9); LYMPHOCYTES % 11.1 % (15.0-51.0); MEAN CORPUSCULAR HEMOGLOBIN 25.7 pg (29.0-33.0); MEAN CORPUSCULAR HGB CONC 29.8 g/dl (32.0-37.0); MEAN CORPUSCULAR VOLUME 86.2 fl (82.0-101.0); MONOCYTE # 0.4 10^3/ul (0.3-0.9); MONOCYTES % 5.2 % (0.0-11.0); NEUTROPHIL # 5.5 10^3/ul (1.6-7.5); POSITIVE DIFF @See below; RED BLOOD COUNT 2.76 10^6/ul (4.70-6.10); RED CELL DISTRIBUTION WIDTH 19.4 % (11.5-14.5); WHITE BLOOD COUNT 6.9 10^3/ul (4.8-10.8)
[2017-02-01] MEDS ORDERED: PHYTONADIONE 10 MG/ML INJ SC ONE ×2 (05:00→10:00)
[2017-02-01 05:13] LABS: CALCIUM 7.7 mg/dl (8.4-10.2); CREATININE 6.09 mg/dl (0.61-1.24); POTASSIUM 3.2 mmol/L (3.5-5.1)
[2017-02-01 05:23] LABS: PLATELET COUNT 63 10^3/UL (140-415)
[2017-02-01] MEDS: LACTULOSE 30ML CUP GTB SCH ×4 (06:00→23:50)
--- NOTE | 2017-02-01 06:11 | RADRPT ---
PROCEDURE: XR, Chest. CLINICAL INDICATION: Follow up for respiratory distress/hemoptysis. TECHNIQUE: AP chest. COMPARISON: Chest, 01/31/2017. FINDINGS: The heart remains moderate enlarged with interval improvement of pulmonary venous congestion. There is no acute infiltrate in the lungs. No pleural lesion. The right Perma-Cath remains in good posi tion. IMPRESSION: 1. Moderate cardiomegaly with interval improvement of pulmonary venous congestion. RPTAT: GG .Lino Castillo MD, MD Date Time Electronically viewed and signed by .Lino Castillo MD, MD on 02/01/2017 06:11 .Y/
[2017-02-01 07:27] LABS: INR 1.21; PROTIME 15.4 Sec (12.2-14.2); PT RATIO 1.2
[2017-02-01 07:28] LABS: PARTIAL THROMBOPLASTIN TIME 40.6 Sec (25.0-35.0)
[2017-02-01] MEDS: MULTIVITAMINS THERAPEUTIC TAB PO SCH (08:20)
[2017-02-01] MEDS: RIFAXIMIN 550 MG TAB PO SCH ×2 (08:20→22:00)
[2017-02-01] MEDS: LUBIPROSTONE 24 MCG CAP PO SCH ×2 (08:20→22:00)
[2017-02-01] MEDS: INSULIN ASPART [NOVOLOG] 3 ML PEN SC SCH ×4 (08:29→21:00)
[2017-02-01] MEDS: NIFEdipine (XL) 30 MG TAB PO SCH (08:30)
[2017-02-01] MEDS: ALBUTEROL/IPRATROPIUM (NEB) 3 ML AMP HHN SCH ×4 (09:00→21:52)
[2017-02-01] MEDS: ACETAMINOPHEN 500 MG TAB PO PRN (09:30)
[2017-02-01] MEDS: CEFTRIAXONE 2 GM/50 ML (PMX) 50 ML IVPB SCH (12:00)
--- NOTE | 2017-02-01 13:25 | CONS ---
Date/Time of Note Date/Time of Note DATE: 02/01/17 TIME: 13:24 Assessment/Plan Assessment/Plan Chief Complaint/Hosp Course 61-year-old male admitted for shortness of breath. Patient is a history of hepatitis C cirrhosis of liver, morbid obesity obstructive sleep apnea, diabetes mellitus and hypertension. Recent was brought to the emergency room for abdominal distention and shortness of breath. He was slightly nauseous. No GI bleeding no chest pain no or GEOPHYSICAL COMPUTER problem no fever no chills. Problems: Additional Assessment/Plan distention and shortness of breath. He was slightly nauseous. No GI bleeding no chest pain no or GEOPHYSICAL COMPUTER problem no fever no chills. Problems: Additional Assessment/Plan 1. Shortness of breath multifactorial, much better 2. Morbid obesity, patient lost 22 pounds 3. Cirrhosis of liver with portal hypertension 4. Mild ascites 5. Diabetes 6. Hypertension 7. Renal failure 8. Anasarca 9. Bacteremia staph positive in the blood culture 10. No evidence of spontaneous bacterial peritonitis 11. Severe constipation, better 12. Profound weakness, second to dialysis 13. Encephalopathy, much better 14 epistaxis Plan P.o. fluid restriction 1000 cc a day Low-sodium diet Monitor BUN and creatinine closely Weight loss Supplemental oxygen Dietary consult, reduce calorie intake to 1000-calorie a day Discussed with the patient and the family Continue antibiotic Diuretic as per clinical education coordinator. Continue with the dialysis and remove fluid as tolerated by the patien Avoid sedatives and narcotic Restarted lactulose, patient is more awake and alert Discussed with the family patient needs to ambulate Consultation Date/Type/Reason Admit Date/Time Jan 07, 2017 at 10:13 Initial Consult Date 01/09/17 Type of Consultation: Renal Referring Provider: JENY MORA MD 24 HR Interval Summary Free Text/Dictation Patient had epistaxis packing was done Exam/Review of Systems Vital Signs Vitals Vital Signs Date Time Temp Pulse Resp B/P Pulse Ox O2 Delivery O2 Flow Rate FiO2 02/01/17 12:51 86 18 97 Nasal Cannula 3.0 02/01/17 10:52 98.5 107/58 02/01/17 02:18 31 Intake and Output 01/31/17 01/31/17 02/01/17 15:00 23:00 07:00 Intake Total 50 ml 700 ml 150 ml Output Total 200 ml Balance 50 ml 500 ml 150 ml Exam Constitutional: alert, oriented, well developed Psych: nl mood/affect, no complaints Head: atraumatic, normocephalic Eyes: EOMI, PERRL, nl conjunctiva, nl lids, nl sclera ENMT: nl external ears & nose, nl lips & teeth, nl nasal mucosa & septum Neck: non-tender, supple Respiratory: clear to auscultation, normal air movement Cardiovascular: nl pulses, regular rate and rhythm Gastrointestinal: nl liver, spleen, non-tender, soft Musculoskeletal: nl extremities to inspection, nl gait and stance Extremities: normal pulses 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: GEOPHYSICAL COMPUTER II-XII intact, nl mental status, nl speech, nl strength Skin: nl turgor, No rash or lesions Lymph: nl lymph nodes Results Result Diagram: 02/01/174 02/01/174 Results 24 hrs Laboratory Tests Test 01/31/17 17:06 01/31/17 20:50 02/01/17 02:04 02/01/17 04:44 Bedside Glucose 209 235 H 199 White Blood Count 6.9 Red Blood Count 2.76 L Hemoglobin 7.1 L Hematocrit 23.8 L Mean Corpuscular Volume 86.2 Mean Corpuscular Hemoglobin 25.7 L Mean Corpuscular Hemoglobin Concent 29.8 L Red Cell Distribution Width 19.4 H Platelet Count 63 #L Mean Platelet Volume Neutrophils % 80.0 H Lymphocytes % 11.1 L Monocytes % 5.2 Eosinophils % 3.0 Basophils % 0.3 Nucleated Red Blood Cells % 0.0 Neutrophils # 5.5 Lymphocytes # 0.8 Monocytes # 0.4 Eosinophils # 0.2 Basophils # 0.0 Nucleated Red Blood Cells # 0.0 Sodium Level 141 Potassium Level 3.2 L Chloride Level 100 Carbon Dioxide Level 28 Anion Gap 16 Blood Urea Nitrogen 39 H Creatinine 6.09 H Glucose Level 158 Calcium Level 7.7 L Test 02/01/17 06:15 02/01/17 08:19 02/01/17 11:57 Prothrombin Time 15.4 H Prothrombin Time Ratio 1.2 INR International Normalized Ratio 1.21 Activated Partial Thromboplast Time 40.6 H Bedside Glucose 165 161 Medications Medications Current Medications Atorvastatin Calcium (Lipitor) 20 mg HS PO Last administered on 01/29/17t 20:50 ; Admin Dose 20 MG; Start 01/07/17 at 21:00 Miscellaneous Information 1 ea NOTE XX ; Start 01/07/17 at 17:30 Glucose (Glutose) 15 gm Q15M PRN PO DECREASED GLUCOSE; Start 01/07/17 at 17:30 Glucose (Glutose) 22.5 gm Q15M PRN PO DECREASED GLUCOSE; Start 01/07/17 at 17: 30 Dextrose (D50w Syringe) 25 ml Q15M PRN IV DECREASED GLUCOSE; Start 01/07/17 at 17:30 Dextrose (D50w Syringe) 50 ml Q15M PRN IV DECREASED GLUCOSE; Start 01/07/17 at 17:30 Glucagon (Glucagen) 1 mg Q15M PRN IM DECREASED GLUCOSE; Start 01/07/17 at 17:30 Glucose (Glutose) 15 gm Q15M PRN BUCCAL DECREASED GLUCOSE; Start 01/07/17 at 17 :30 Nifedipine (Procardia Xl) 30 mg DAILY PO Last administered on 01/31/17 08:35; Admin Dose 30 MG; Start 01/08/17 at 09:00 Docusate Sodium (Colace) 100 mg BID PRN PO CONSTIPATION Last administered on 11:56; Admin Dose 100 MG; Start 01/08/17 at 14:00 Acetaminophen (Tylenol Tab) 500 mg Q6H PRN PO PAIN AND OR ELEVATED TEMP Last administered on 02/01/17 09:30; Admin Dose 500 MG; Start 01/08/17 at 15:30 Diagnostic Test (Pha) (Accu-Chek) 1 ea 02 XX Last administered on 01/31/17 02: 25; Admin Dose 1 EA; Start 01/15/17 at 02:00 Insulin Aspart 10 unit 10 unit ONCE PRN SC ELEVATED GLUCOSE Last administered on 01/21/17 02:15; Admin Dose 10 UNIT; Start 01/17/17 at 02:00 Sodium Chloride (1/2 NS) 1,000 ml @ 40 mls/hr Q24H IV Last administered on 01/18 21:32; Admin Dose 75 MLS/HR; Start 01/17/17 at 17:00; Status Future Hold Nitroglycerin (Nitroglycerin (Sl Tab) 0.4 Mg) 1 tab Q5M PRN SL ANGINA; Start at 21:30 Epoetin Sean (Epogen (Esrd)) 10,000 units MoWeFr@17 SC Last administered on 17:03; Admin Dose 10,000 UNITS; Start 01/19/17 at 17:00 Lubiprostone (Amitiza) 24 mcg BID PO Last administered on 02/01/17 08:20; Admin Dose 24 MCG; Start 01/21/17 at 21:00 Ondansetron HCl (Zofran Inj) 4 mg Q4H PRN IV NAUSEA AND/OR VOMITING Last administered on 01/28/17 13:32; Admin Dose 4 MG; Start 01/24/17 at 13:30 Rifaximin (Xifaxan) 550 mg BID PO Last administered on 02/01/17 08:20; Admin Dose 550 MG; Start 01/26/17 at 09:00 IV Flush 10 ml 10 ml PRN PRN IV IV PROTOCOL; Start 01/27/17 at 15:00 Ceftriaxone Sodium (Rocephin) 50 ml @ 100 mls/hr Q24H IVPB Last administered on 02/01/17 12:00; Admin Dose 100 MLS/HR; Start 01/29/17 at 11:30 Multivitamins Therapeutic (Theragran) 1 tab DAILY PO Last administered on 08:20; Admin Dose 1 TAB; Start 01/30/17 at 09:00 Lactulose (Enulose) 30 gm Q6 GTB Last administered on 01/31/17 17:01; Admin Dose 30 GM; Start 01/29/17 at 20:00 Insulin Glargine (Lantus) 32 unit DAILY@20 SC Last administered on 01/31/17 20 :55; Admin Dose 32 UNIT; Start 01/31/17 at 20:00 STUART STANLEY MD Feb 01, 2017 13:25
[2017-02-01 13:49] LABS: HEMATOCRIT 23.9 % (42.0-52.0)
--- NOTE | 2017-02-01 13:51 | CONS ---
Date/Time of Note Date/Time of Note DATE: 02/01/17 TIME: 13:48 Assessment/Plan Assessment/Plan Additional Assessment/Plan Chest x-ray was reviewed from today which is essentially unremarkable except for underlying cardiomegaly. Assessment recommendations; 1. Patient admitted for shortness of breath has underlying advanced hepatitis C. 2. Thrombocytopenia and anemia. 3. Episode of hemoptysis with interval improvement after being given blood products. 4. Underlying morbid obesity. 5. History of hypertension or diabetes. 6. Renal failure, on hemodialysis. 7. Hypercapnic respiratory failure. Obtain a blood gas. Start BiPAP. Consultation Date/Type/Reason Admit Date/Time Jan 07, 2017 at 10:13 Initial Consult Date 01/26/17 Type of Consultation: Pulmonary Referring Provider: JENY MORA MD 24 HR Interval Summary Free Text/Dictation Patient condition is tenuous at best. Currently getting hemodialysis at bedside. Patient appearing slightly more somnolent. Patient having episodes of hemoptysis since yesterday afternoon which according to him have subsided over the last few hours. General exam; elderly male, morbidly obese, awake, currently in no distress. Somewhat somnolent. Exam/Review of Systems Vital Signs Vitals Vital Signs Date Time Temp Pulse Resp B/P Pulse Ox O2 Delivery O2 Flow Rate FiO2 02/01/17 12:51 86 18 97 Nasal Cannula 3.0 02/01/17 10:52 98.5 107/58 02/01/17 02:18 31 Intake and Output 01/31/17 01/31/17 02/01/17 15:00 23:00 07:00 Intake Total 50 ml 700 ml 150 ml Output Total 200 ml Balance 50 ml 500 ml 150 ml Exam HEENT exam; supple neck, positive JVD. No lymphadenopathy. Midline trachea. No thyromegaly. Pharynx is clear. Patient has fair dentition. Chest exam; diminished but clear breath sound. S1-S2 audible, no murmurs. Regular rhythm. Abdomen exam; protuberant. Nontender. Bowel sounds audible. Extremity exam; 2+ edema involving lower extremities. Pulses 1+ bilaterally. KOSHER DIETARY SERVICE MANAGER exam; patient is awake and alert and follows commands moves all 4 extremities on command. Results Result Diagram: 02/01/17 0444 02/01/17 0444 Results 24 hrs Laboratory Tests Test 01/31/17 17:06 01/31/17 20:50 02/01/17 02:04 02/01/17 04:44 Bedside Glucose 209 235 H 199 White Blood Count 6.9 Red Blood Count 2.76 L Hemoglobin 7.1 L Hematocrit 23.8 L Mean Corpuscular Volume 86.2 Mean Corpuscular Hemoglobin 25.7 L Mean Corpuscular Hemoglobin Concent 29.8 L Red Cell Distribution Width 19.4 H Platelet Count 63 #L Mean Platelet Volume Neutrophils % 80.0 H Lymphocytes % 11.1 L Monocytes % 5.2 Eosinophils % 3.0 Basophils % 0.3 Nucleated Red Blood Cells % 0.0 Neutrophils # 5.5 Lymphocytes # 0.8 Monocytes # 0.4 Eosinophils # 0.2 Basophils # 0.0 Nucleated Red Blood Cells # 0.0 Sodium Level 141 Potassium Level 3.2 L Chloride Level 100 Carbon Dioxide Level 28 Anion Gap 16 Blood Urea Nitrogen 39 H Creatinine 6.09 H Glucose Level 158 Calcium Level 7.7 L Test 02/01/17 06:15 02/01/17 08:19 02/01/17 11:57 Prothrombin Time 15.4 H Prothrombin Time Ratio 1.2 INR International Normalized Ratio 1.21 Activated Partial Thromboplast Time 40.6 H Bedside Glucose 165 161 Medications Medications Current Medications Atorvastatin Calcium (Lipitor) 20 mg HS PO Last administered on 01/29/17t 20:50 ; Admin Dose 20 MG; Start 01/07/17 at 21:00 Miscellaneous Information 1 ea NOTE XX ; Start 01/07/17 at 17:30 Glucose (Glutose) 15 gm Q15M PRN PO DECREASED GLUCOSE; Start 01/07/17 at 17:30 Glucose (Glutose) 22.5 gm Q15M PRN PO DECREASED GLUCOSE; Start 01/07/17 at 17: 30 Dextrose (D50w Syringe) 25 ml Q15M PRN IV DECREASED GLUCOSE; Start 01/07/17 at 17:30 Dextrose (D50w Syringe) 50 ml Q15M PRN IV DECREASED GLUCOSE; Start 01/07/17 at 17:30 Glucagon (Glucagen) 1 mg Q15M PRN IM DECREASED GLUCOSE; Start 01/07/17 at 17:30 Glucose (Glutose) 15 gm Q15M PRN BUCCAL DECREASED GLUCOSE; Start 01/07/17 at 17 :30 Nifedipine (Procardia Xl) 30 mg DAILY PO Last administered on 01/31/17 08:35; Admin Dose 30 MG; Start 01/08/17 at 09:00 Docusate Sodium (Colace) 100 mg BID PRN PO CONSTIPATION Last administered on 11:56; Admin Dose 100 MG; Start 01/08/17 at 14:00 Acetaminophen (Tylenol Tab) 500 mg Q6H PRN PO PAIN AND OR ELEVATED TEMP Last administered on 02/01/17 09:30; Admin Dose 500 MG; Start 01/08/17 at 15:30 Diagnostic Test (Pha) (Accu-Chek) 1 ea 02 XX Last administered on 01/31/17 02: 25; Admin Dose 1 EA; Start 01/15/17 at 02:00 Insulin Aspart 10 unit 10 unit ONCE PRN SC ELEVATED GLUCOSE Last administered on 01/21/17 02:15; Admin Dose 10 UNIT; Start 01/17/17 at 02:00 Sodium Chloride (1/2 NS) 1,000 ml @ 40 mls/hr Q24H IV Last administered on 01/18 21:32; Admin Dose 75 MLS/HR; Start 01/17/17 at 17:00; Status Future Hold Nitroglycerin (Nitroglycerin (Sl Tab) 0.4 Mg) 1 tab Q5M PRN SL ANGINA; Start at 21:30 Epoetin Sean (Epogen (Esrd)) 10,000 units MoWeFr@17 SC Last administered on 17:03; Admin Dose 10,000 UNITS; Start 01/19/17 at 17:00 Lubiprostone (Amitiza) 24 mcg BID PO Last administered on 02/01/17 08:20; Admin Dose 24 MCG; Start 01/21/17 at 21:00 Ondansetron HCl (Zofran Inj) 4 mg Q4H PRN IV NAUSEA AND/OR VOMITING Last administered on 01/28/17 13:32; Admin Dose 4 MG; Start 01/24/17 at 13:30 Rifaximin (Xifaxan) 550 mg BID PO Last administered on 02/01/17 08:20; Admin Dose 550 MG; Start 01/26/17 at 09:00 IV Flush 10 ml 10 ml PRN PRN IV IV PROTOCOL; Start 01/27/17 at 15:00 Ceftriaxone Sodium (Rocephin) 50 ml @ 100 mls/hr Q24H IVPB Last administered on 02/01/17 12:00; Admin Dose 100 MLS/HR; Start 01/29/17 at 11:30 Multivitamins Therapeutic (Theragran) 1 tab DAILY PO Last administered on 08:20; Admin Dose 1 TAB; Start 01/30/17 at 09:00 Lactulose (Enulose) 30 gm Q6 GTB Last administered on 01/31/17 17:01; Admin Dose 30 GM; Start 01/29/17 at 20:00 Insulin Glargine (Lantus) 32 unit DAILY@20 SC Last administered on 01/31/17 20 :55; Admin Dose 32 UNIT; Start 01/31/17 at 20:00 WALDO FRASER Feb 01, 2017 13:51
--- NOTE | 2017-02-01 14:39 | CONS ---
Date/Time of Note Date/Time of Note DATE: 02/01/17 TIME: 14:35 Assessment/Plan Assessment/Plan Additional Assessment/Plan 1. Chronic kidney disease, now dialysis dependent. Poor UOP, fluid overload. Discussed with family, renal recovery is unlikely. 2. 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 He has been treated for hepatitis C virus. 3. Hypertension 4. Hyperlipidemia 5. Anemia, for transfusion today 6. Congestive heart failure, improved on CXR 7. Obstructive sleep apnea 8. Epistaxis has stopped 9. Thrombocytopenia Consultation Date/Type/Reason Admit Date/Time Jan 07, 2017 at 10:13 Initial Consult Date 01/26/17 Type of Consultation: Renal Referring Provider: JENY MORA MD 24 HR Interval Summary Free Text/Dictation Alert, seen on dialysis. Had epistaxis earlier, nose packed, receiving PRBCs and Platelets. Exam/Review of Systems Vital Signs Vitals Vital Signs Date Time Temp Pulse Resp B/P Pulse Ox O2 Delivery O2 Flow Rate FiO2 02/01/17 14:30 80 02/01/17 12:51 18 97 Nasal Cannula 3.0 02/01/17 10:52 98.5 107/58 02/01/17 02:18 31 Intake and Output 01/31/17 01/31/17 02/01/17 15:00 23:00 07:00 Intake Total 50 ml 700 ml 150 ml Output Total 200 ml Balance 50 ml 500 ml 150 ml Exam Constitutional: alert Head: normocephalic Neck: supple, No jvd Respiratory: clear to auscultation Cardiovascular: regular rate and rhythm Extremities: edema Results Result Diagram: 02/01/17 1315 02/01/17 0444 Results 24 hrs Laboratory Tests Test 01/31/17 17:06 01/31/17 20:50 02/01/17 02:04 02/01/17 04:44 Bedside Glucose 209 235 H 199 White Blood Count 6.9 Red Blood Count 2.76 L Hemoglobin 7.1 L Hematocrit 23.8 L Mean Corpuscular Volume 86.2 Mean Corpuscular Hemoglobin 25.7 L Mean Corpuscular Hemoglobin Concent 29.8 L Red Cell Distribution Width 19.4 H Platelet Count 63 #L Mean Platelet Volume Neutrophils % 80.0 H Lymphocytes % 11.1 L Monocytes % 5.2 Eosinophils % 3.0 Basophils % 0.3 Nucleated Red Blood Cells % 0.0 Neutrophils # 5.5 Lymphocytes # 0.8 Monocytes # 0.4 Eosinophils # 0.2 Basophils # 0.0 Nucleated Red Blood Cells # 0.0 Sodium Level 141 Potassium Level 3.2 L Chloride Level 100 Carbon Dioxide Level 28 Anion Gap 16 Blood Urea Nitrogen 39 H Creatinine 6.09 H Glucose Level 158 Calcium Level 7.7 L Test 02/01/17 06:15 02/01/17 08:19 02/01/17 11:57 02/01/17 13:15 Prothrombin Time 15.4 H Prothrombin Time Ratio 1.2 INR International Normalized Ratio 1.21 Activated Partial Thromboplast Time 40.6 H Bedside Glucose 165 161 Hemoglobin 7.0 L Hematocrit 23.9 L Medications Medications Current Medications Atorvastatin Calcium (Lipitor) 20 mg HS PO Last administered on 01/29/17 20:50 ; Admin Dose 20 MG; Start 01/07/17 at 21:00 Miscellaneous Information 1 ea NOTE XX ; Start 01/07/17 at 17:30 Glucose (Glutose) 15 gm Q15M PRN PO DECREASED GLUCOSE; Start 01/07/17 at 17:30 Glucose (Glutose) 22.5 gm Q15M PRN PO DECREASED GLUCOSE; Start 01/07/17 at 17: 30 Dextrose (D50w Syringe) 25 ml Q15M PRN IV DECREASED GLUCOSE; Start 01/07/17 at 17:30 Dextrose (D50w Syringe) 50 ml Q15M PRN IV DECREASED GLUCOSE; Start 01/07/17 at 17:30 Glucagon (Glucagen) 1 mg Q15M PRN IM DECREASED GLUCOSE; Start 01/07/17 at 17:30 Glucose (Glutose) 15 gm Q15M PRN BUCCAL DECREASED GLUCOSE; Start 01/07/17 at 17 :30 Nifedipine (Procardia Xl) 30 mg DAILY PO Last administered on 01/31/17 08:35; Admin Dose 30 MG; Start 01/08/17 at 09:00 Docusate Sodium (Colace) 100 mg BID PRN PO CONSTIPATION Last administered on 11:56; Admin Dose 100 MG; Start 01/08/17 at 14:00 Acetaminophen (Tylenol Tab) 500 mg Q6H PRN PO PAIN AND OR ELEVATED TEMP Last administered on 02/01/17 09:30; Admin Dose 500 MG; Start 01/08/17 at 15:30 Diagnostic Test (Pha) (Accu-Chek) 1 ea 02 XX Last administered on 01/31/17 02: 25; Admin Dose 1 EA; Start 01/15/17 at 02:00 Insulin Aspart 10 unit 10 unit ONCE PRN SC ELEVATED GLUCOSE Last administered on 01/21/17 02:15; Admin Dose 10 UNIT; Start 01/17/17 at 02:00 Sodium Chloride (1/2 NS) 1,000 ml @ 40 mls/hr Q24H IV Last administered on 01/18 21:32; Admin Dose 75 MLS/HR; Start 01/17/17 at 17:00; Status Future Hold Nitroglycerin (Nitroglycerin (Sl Tab) 0.4 Mg) 1 tab Q5M PRN SL ANGINA; Start at 21:30 Epoetin Sean (Epogen (Esrd)) 10,000 units MoWeFr@17 SC Last administered on 17:03; Admin Dose 10,000 UNITS; Start 01/19/17 at 17:00 Lubiprostone (Amitiza) 24 mcg BID PO Last administered on 02/01/17 08:20; Admin Dose 24 MCG; Start 01/21/17 at 21:00 Ondansetron HCl (Zofran Inj) 4 mg Q4H PRN IV NAUSEA AND/OR VOMITING Last administered on 01/28/17 13:32; Admin Dose 4 MG; Start 01/24/17 at 13:30 Rifaximin (Xifaxan) 550 mg BID PO Last administered on 02/01/17 08:20; Admin Dose 550 MG; Start 01/26/17 at 09:00 IV Flush 10 ml 10 ml PRN PRN IV IV PROTOCOL; Start 01/27/17 at 15:00 Ceftriaxone Sodium (Rocephin) 50 ml @ 100 mls/hr Q24H IVPB Last administered on 02/01/17 12:00; Admin Dose 100 MLS/HR; Start 01/29/17 at 11:30 Multivitamins Therapeutic (Theragran) 1 tab DAILY PO Last administered on 08:20; Admin Dose 1 TAB; Start 01/30/17 at 09:00 Lactulose (Enulose) 30 gm Q6 GTB Last administered on 01/31/17 17:01; Admin Dose 30 GM; Start 01/29/17 at 20:00 Insulin Glargine (Lantus) 32 unit DAILY@20 SC Last administered on 01/31/17 20 :55; Admin Dose 32 UNIT; Start 01/31/17 at 20:00 SHANA LEMA MD Feb 01, 2017 14:39
--- NOTE | 2017-02-01 15:21 | CONS ---
Date/Time of Note Date/Time of Note DATE: 02/01/17 TIME: 15:17 Assessment/Plan Assessment/Plan Additional Assessment/Plan 1)Liver cirrhosis with portal HTN due to Hep C to repeat ammonia level 01/21 - ammonia level is mildly elevated at 57 consider lacutlose 01/26 - pt getting lactulose due to rising ammonia level but so far no BM's 01/27 - pt had one BM yesterday only will re-check ammonia level consider increasing lacutulose dose, pt also on rifaximin 01/29 - ammonia level is decreasing 2) CHF +/- pneumonia unable to tolerate lasix with worsening renal function 01/21 - in light of MSSA in blood and no open wounds or chronic IV in place, concern would be lung may be the portal of entry to start zosyn to cover for lung infection as well as the MSSA CXR does not show a lobar infiltrate 01/22 - continue with zosyn 01/23 - beta d glucan to look for invasive fungal disease was negative continue with zosyn 01/24 - stable on zosyn wbc is back to normal 01/26 - stable, WBC minimal elevated pt would likely benefit from a blood tx 01/29 - pt has completed his course for pneumonia d/c zosyn and start ceftriaxone for continued treatment of his MSSA bacteremia 01/30 - breathing is stable off zosyn and only on ceftriaxone 02/01 - remains improved. 3) r/o SBP pt to get paracentesis later today cefotaxime was started by the primary if fevers not improving will broaden the coverage 01/20 - pt to get paracentesis today continue with cefotaxime 01/21 - low number of PMN's in ascitic fluid, this in not the source for his MSSA d/c cefotaxime 4) new onset fever with leukocytosis pt has been on steroids but this does not explain the new fever the potential sources would include, ascitic fluid, lung urinalysis does not suggest an infection will order beta d glucan, aspergillus galactomannan, procalcitonin in a.m. will order LE dopplers to make sure no DVT has developed if cefotaxime does not improve his fever, wbc then will broaden coverage to include lung infection 01/20 - await paracentesis and a.m. labs vanco added due to GPC in blood cx fevers appear improved 01/21 - MSSA is present in blood and urine cx u/a did not show signs of infection and so the urine may only be seeded from the bacteremia will order repeat u/a at this time d/c vanco/cefotaxime and start zosyn since there is no skin breakdown or ulcers the lung becomes a more likely portal of entry 01/22 - fevers resolved continue with zosyn for bacteremia and possible pneumonia 5) MSSA bacteremia 01/20 - no central line in place, IV sites look ok await ID to see if true infection or a contaminant vanco started, will order repeat blood cx now 01/21 - true infection of blood with MSSA repeat blood cx from 01/20 is NGTD d/c vanco/cefotaxime and start zosyn check u/a 01/22 - MSSA in one set from 01/20 repeat blood cx today pt needs dialysis and likely he is no longer bacteremic so ok for dialysis line but if pt remains bacteremic it will need to be replaced 01/23 - pt to get dialysis line today and likely HD afterwards continue with zosyn 01/24 - repeat blood cx from 01/22 remain NGTD wbc is back to normal anticipate a 4 week course of treatment for this, will eventually change zosyn to ceftriaxone 01/26 - consider blood tx to help with effectiveness of antibiotics 01/27 - repeat blood cx remain neg from 01/22 and 01/25 01/29 - changed to ceftriaxone and continue thru 02/16/1701/30 - tolerating ceftriaxone, continue thru 02/16/17 6) anemia 01/26 - when pt does have a BM will get hemoccult to see if pt will need prophylaxis for SBP consider blood tx Consultation Date/Type/Reason Admit Date/Time Jan 07, 2017 at 10:13 Initial Consult Date 01/26/17 Type of Consultation: Infectious Diseases Referring Provider: JENY MORA MD 24 HR Interval Summary Free Text/Dictation cxr from today demonstrates improvements in the pulmonary edema. Afebrile over last 48 hours. No new positive cultures. No acute events noted. Family at bedside Exam/Review of Systems Vital Signs Vitals Vital Signs Date Time Temp Pulse Resp B/P Pulse Ox O2 Delivery O2 Flow Rate FiO2 02/01/17 15:00 81 18 02/01/17 12:51 97 Nasal Cannula 3.0 02/01/17 10:52 98.5 107/58 02/01/17 02:18 31 Intake and Output 01/31/17 01/31/17 02/01/17 15:00 23:00 07:00 Intake Total 50 ml 700 ml 150 ml Output Total 200 ml Balance 50 ml 500 ml 150 ml Exam Constitutional: alert Respiratory: clear to auscultation Cardiovascular: regular rate and rhythm Gastrointestinal: soft Results Result Diagram: 02/01/17 1315 02/01/17 0444 Results 24 hrs Laboratory Tests Test 01/31/17 17:06 01/31/17 20:50 02/01/17 02:04 02/01/17 04:44 Bedside Glucose 209 235 H 199 White Blood Count 6.9 Red Blood Count 2.76 L Hemoglobin 7.1 L Hematocrit 23.8 L Mean Corpuscular Volume 86.2 Mean Corpuscular Hemoglobin 25.7 L Mean Corpuscular Hemoglobin Concent 29.8 L Red Cell Distribution Width 19.4 H Platelet Count 63 #L Mean Platelet Volume Neutrophils % 80.0 H Lymphocytes % 11.1 L Monocytes % 5.2 Eosinophils % 3.0 Basophils % 0.3 Nucleated Red Blood Cells % 0.0 Neutrophils # 5.5 Lymphocytes # 0.8 Monocytes # 0.4 Eosinophils # 0.2 Basophils # 0.0 Nucleated Red Blood Cells # 0.0 Sodium Level 141 Potassium Level 3.2 L Chloride Level 100 Carbon Dioxide Level 28 Anion Gap 16 Blood Urea Nitrogen 39 H Creatinine 6.09 H Glucose Level 158 Calcium Level 7.7 L Test 02/01/17 06:15 02/01/17 08:19 02/01/17 11:57 02/01/17 13:15 Prothrombin Time 15.4 H Prothrombin Time Ratio 1.2 INR International Normalized Ratio 1.21 Activated Partial Thromboplast Time 40.6 H Bedside Glucose 165 161 Hemoglobin 7.0 L Hematocrit 23.9 L Medications Medications Current Medications Atorvastatin Calcium (Lipitor) 20 mg HS PO Last administered on 01/29/17t 20:50 ; Admin Dose 20 MG; Start 01/07/17 at 21:00 Miscellaneous Information 1 ea NOTE XX ; Start 01/07/17 at 17:30 Glucose (Glutose) 15 gm Q15M PRN PO DECREASED GLUCOSE; Start 01/07/17 at 17:30 Glucose (Glutose) 22.5 gm Q15M PRN PO DECREASED GLUCOSE; Start 01/07/17 at 17: 30 Dextrose (D50w Syringe) 25 ml Q15M PRN IV DECREASED GLUCOSE; Start 01/07/17 at 17:30 Dextrose (D50w Syringe) 50 ml Q15M PRN IV DECREASED GLUCOSE; Start 01/07/17 at 17:30 Glucagon (Glucagen) 1 mg Q15M PRN IM DECREASED GLUCOSE; Start 01/07/17 at 17:30 Glucose (Glutose) 15 gm Q15M PRN BUCCAL DECREASED GLUCOSE; Start 01/07/17 at 17 :30 Nifedipine (Procardia Xl) 30 mg DAILY PO Last administered on 01/31/17 08:35; Admin Dose 30 MG; Start 01/08/17 at 09:00 Docusate Sodium (Colace) 100 mg BID PRN PO CONSTIPATION Last administered on 11:56; Admin Dose 100 MG; Start 01/08/17 at 14:00 Acetaminophen (Tylenol Tab) 500 mg Q6H PRN PO PAIN AND OR ELEVATED TEMP Last administered on 02/01/17 09:30; Admin Dose 500 MG; Start 01/08/17 at 15:30 Diagnostic Test (Pha) (Accu-Chek) 1 ea 02 XX Last administered on 01/31/17 02: 25; Admin Dose 1 EA; Start 01/15/17 at 02:00 Insulin Aspart 10 unit 10 unit ONCE PRN SC ELEVATED GLUCOSE Last administered on 01/21/17 02:15; Admin Dose 10 UNIT; Start 01/17/17 at 02:00 Sodium Chloride (1/2 NS) 1,000 ml @ 40 mls/hr Q24H IV Last administered on 01/18 21:32; Admin Dose 75 MLS/HR; Start 01/17/17 at 17:00; Status Future Hold Nitroglycerin (Nitroglycerin (Sl Tab) 0.4 Mg) 1 tab Q5M PRN SL ANGINA; Start at 21:30 Epoetin Sean (Epogen (Esrd)) 10,000 units MoWeFr@17 SC Last administered on 17:03; Admin Dose 10,000 UNITS; Start 01/19/17 at 17:00 Lubiprostone (Amitiza) 24 mcg BID PO Last administered on 02/01/17 08:20; Admin Dose 24 MCG; Start 01/21/17 at 21:00 Ondansetron HCl (Zofran Inj) 4 mg Q4H PRN IV NAUSEA AND/OR VOMITING Last administered on 01/28/17 13:32; Admin Dose 4 MG; Start 01/24/17 at 13:30 Rifaximin (Xifaxan) 550 mg BID PO Last administered on 02/01/17 08:20; Admin Dose 550 MG; Start 01/26/17 at 09:00 IV Flush 10 ml 10 ml PRN PRN IV IV PROTOCOL; Start 01/27/17 at 15:00 Ceftriaxone Sodium (Rocephin) 50 ml @ 100 mls/hr Q24H IVPB Last administered on 02/01/17 12:00; Admin Dose 100 MLS/HR; Start 01/29/17 at 11:30 Multivitamins Therapeutic (Theragran) 1 tab DAILY PO Last administered on 08:20; Admin Dose 1 TAB; Start 01/30/17 at 09:00 Lactulose (Enulose) 30 gm Q6 GTB Last administered on 01/31/17 17:01; Admin Dose 30 GM; Start 01/29/17 at 20:00 Insulin Glargine (Lantus) 32 unit DAILY@20 SC Last administered on 01/31/17 20 :55; Admin Dose 32 UNIT; Start 01/31/17 at 20:00 LEMUEL BERMAN Feb 01, 2017 15:21
[2017-02-01] MEDS: INSULIN GLARGINE [LANtus] 3 ML PEN SC SCH (20:00)
[2017-02-01] MEDS: ATORVASTATIN 20 MG TAB PO SCH (21:00)
[2017-02-01] MEDS: hydrOXYzine HCL 10 MG TAB PO PRN (22:00)
[2017-02-01] MEDS: TRIAMCINOLONE ACET 0.1% 15 GM OINT TOP SCH (22:00)
[2017-02-02] VITALS (12 sets, daily range): BP systolic 112–129; BP diastolic 55–76; PULSE 86–94; RESP 17–20
--- NOTE | 2017-02-02 | PN ---
Date/Time of Note Date/Time of Note DATE: 02/01/17 TIME: 23:59 Assessment/Plan Lines/Catheters IV Catheter Type (from Nrs): PICC Line Sykes in Place (from Nrs): Yes Assessment/Plan Chief Complaint/Hosp Course 1. [place] obesity: BMI 48 -encourage weight loss -nutrition optimization -eventual bariatric surgery when medically stable 2. CHF: dyspnea with pulmonary congestion; dyspnea improved -continue diuresis per cards/renal -medical optimization -HD 3. Elevated troponin: renal failure vs NSTEMI; invasive/stress testing not recommended at this time per cards -trend and monitor 4. Chronic kidney disease: HD -per renal 5. Diabetes: blood sugar labile; on long acting and short acting insulin -optimize blood sugar control 6. Hypertension: controlled -cont. antihypertensives 7. YEVGENIY: morbid obesity, dyspnea improved after HD -cpap 8. Leukocytosis: on steroids; (repeat blood cx: no growth) vs. dvt; no fevers; ascitic fluid (low PMN- not the source per ID); cultures no growth, wbc improving -abx per sensitivity 9. Dyspnea: multifactorial chf+ morbid obesity + ascites + YEVGENIY; improved; s/p dialysis -supportive -as above 10. Hyponatremia now with hypernatremia: s/p dialysis; improving - judicious fluid management 11. Anemia: CKD +/- chronic disease; doubt active bleed; h/h improved -monitor -transfuse as needed 12. Hypothyroidism; low tsh/t4 -medical optimization 13. Hypocalcemia: likely 2/2 poor nutrition + hypothyroid -optimize lytes -as above -medical optimization 14. Hypoalbuminemia: liver disease +/- malnutrition, -replete -nutrition optimization 15. Hepatic encephalopathy: Hepatitis C history, on treatment; ammonia levels improving; more awake and oriented -per gi/hepatology 16. Thrombocytosis: 2/2 liver disease -bleeding precautions -supportive Thank you, Problems: Subjective 24 Hr Interval Summary Breathing comfortably. No fevers, chills, mccallum, sz, dizziness, cough, n/v/d, itching, rash. Bowel function. No bloating. Exam/Review of Systems Vital Signs Vitals Vital Signs Date Time Temp Pulse Resp B/P Pulse Ox O2 Delivery O2 Flow Rate FiO2 02/01/17 23:57 99.0 89 22 132/70 99 02/01/17 21:52 Nasal Cannula 2.0 7/23/17 02:18 31 Intake and Output 01/31/17 01/31/17 02/01/17 15:00 23:00 07:00 Intake Total 50 ml 700 ml 150 ml Output Total 200 ml Balance 50 ml 500 ml 150 ml Exam Free Text/Dictation Constitutional: awake, obese, oriented Psych: nl mood/affect, no complaints Head: atraumatic, normocephalic Eyes: nl conjunctiva, nl lids ENMT: mucosa pink and moist Neck: non-tender, supple; right IJ Respiratory: diminished breath sounds; no use of accessory muscles, breathing easily Cardiovascular: regular rate and rhythm Gastrointestinal: distended (mod), non-tender, soft Genitourinary - Male: nl penis, nl scrotum, No CVA tenderness; sykes, clear urine output Musculoskeletal: nl extremities to inspection Extremities: edema (ble 3+), normal pulses 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: no nl mental status, nl speech Skin: No rash or lesions Results Result Diagram: 02/01/17 1315 02/01/17 0444 TERRELL PEREZ MD Feb 02, 2017 00:00
[2017-02-02] MEDS: ACCU-CHEK XX SCH (02:00)
--- NOTE | 2017-02-02 04:32 | PN ---
DATE: 01/19/2017 SUBJECTIVE DATA: The patient developed increasing shortness of breath and was transferred to telemetry late last night. Had been given 1 dose of Lasix with mild diuretic response, feels slightly better. He also had a BM this morning. The patient also complaining of abdominal pain which is slightly improved this morning. He is nauseous, has a very poor appetite. He has been complaining of vague left-sided chest pain without any radiation or diaphoresis. OBJECTIVE DATA: GENERAL: The patient is awake. VITAL SIGNS: Temperature 100.0, blood pressure 128/64, pulse oximetry is 96 percent. SKIN: No pallor, cyanosis or icterus. NECK: JVD is not increased. CHEST: Decreased breath sounds at the bases. Occasional wheezes. CARDIAC: Heart: S1, S2 heard. No definite gallops. ABDOMEN: Massive obesity. Lower abdominal tenderness without rebound. EXTREMITIES: 3+ pitting edema. Homans' negative. LABORATORY AND DIAGNOSTIC DATA: Sodium 134, potassium 4.4, BUN 98, creatinine 3.16, glucose fasting 206, calcium 8.4. Troponin 0.131. Magnesium 3.1. Urine random sodium less than 13. Urine total protein 497. Chest x-ray shows diffuse interstitial edema. Ultrasound shows minimal ascites. White blood cell count is 14.2, hematocrit 27.9, platelet count of 108,000. ASSESSMENT AND PLAN: 1. Respiratory failure, combination of mechanical restrictive lung disease with an element of asthmatic bronchitis and congestive heart failure. 2. Cirrhosis with portal hypertension. Concern about possible impending hepatorenal syndrome and spontaneous peritonitis. 3. Diabetes mellitus type 2, metabolic syndrome. 4. Atypical chest pain, possible coronary artery disease. 5. Chronic kidney disease. Plan: Will obtain UA and culture and sensitivity, await for blood culture. Consider starting the patient on antibiotic therapy. Will request Nephrology consultation with Dr. King Castro. Consider therapeutic tap as well as a diagnostic tap (paracentesis). Will discuss with . Consider repeating CT of the abdomen and chest. Dictated By: Ivan Brice MD /[email or web address]/ /Document#: [id number]
[2017-02-02] MEDS: LACTULOSE 30ML CUP GTB SCH ×3 (05:49→17:43)
[2017-02-02 07:18] LABS: ABNORMAL IP MESSAGE 1; BASOPHILS % 0.3 % (0.0-2.0); EOSINOPHILS # 0.3 10^3/ul (0.0-0.5); EOSINOPHILS % 4.4 % (0.0-7.0); HEMOGLOBIN 8.6 g/dl (14.0-18.0); LYMPHOCYTES # 0.7 10^3/ul (0.8-2.9); LYMPHOCYTES % 9.9 % (15.0-51.0); MEAN CORPUSCULAR HEMOGLOBIN 26.3 pg (29.0-33.0); MEAN CORPUSCULAR HGB CONC 30.7 g/dl (32.0-37.0); MEAN CORPUSCULAR VOLUME 85.6 fl (82.0-101.0); MEAN PLATELET VOLUME 12.4 fl (7.4-10.4); MONOCYTE # 0.5 10^3/ul (0.3-0.9); MONOCYTES % 6.2 % (0.0-11.0); NEUTROPHIL # 5.8 10^3/ul (1.6-7.5); NEUTROPHILS % 78.9 % (39.0-77.0); PLATELET COUNT 79 10^3/UL (140-415); POSITIVE DIFF @See below; RED BLOOD COUNT 3.27 10^6/ul (4.70-6.10); RED CELL DISTRIBUTION WIDTH 18.8 % (11.5-14.5); WHITE BLOOD COUNT 7.3 10^3/ul (4.8-10.8)
[2017-02-02 07:45] LABS: ALBUMIN 2.6 g/dl (3.3-4.9); ALBUMIN/GLOBULIN RATIO 0.6; BILIRUBIN,INDIRECT 0.3 mg/dl (0-1.1); BILIRUBIN,TOTAL 0.3 mg/dl (0.2-1.3); CALCIUM 7.4 mg/dl (8.4-10.2); CREATININE 5.24 mg/dl (0.61-1.24); POTASSIUM 3.2 mmol/L (3.5-5.1); TOTAL PROTEIN 6.9 g/dl (6.1-8.1)
[2017-02-02] MEDS: ALBUTEROL/IPRATROPIUM (NEB) 3 ML AMP HHN SCH ×4 (08:09→20:22)
[2017-02-02] MEDS: INSULIN ASPART [NOVOLOG] 3 ML PEN SC SCH ×4 (08:10→20:36)
[2017-02-02] MEDS ORDERED: POTASSIUM CHLORIDE (SR) 20 MEQ TAB PO STA (08:30)
--- NOTE | 2017-02-02 08:41 | CONS ---
Date/Time of Note Date/Time of Note DATE: 02/02/17 TIME: 08:37 Assessment/Plan Assessment/Plan Chief Complaint/Hosp Course Impression: 1. Chronic kidney disease. He had a hemodialysis treatment yesterday . next dialysis will be tomorrow. I suspect he has chronic glomerulonephritis. I would like to do a kidney biopsy however he is in no condition for that at this time. 2. 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 He has been treated for hepatitis C virus. 3. Hypertension 4. Hyperlipidemia 5. Anemia, yesterday he had epistaxis and received blood transfusion and platelet transfusion with vitamin K. 6. Congestive heart failure . Fluid is being removed with dialysis and he seems less fluid overloaded. 7. Obstructive sleep apnea 8. Altered level of consciousness/hepatic encephalopathy, his ammonia level is lower and at times he is more awake and alert. He seems more alert today . Continue current treatment for hepatic encephalopathy. Problems: Consultation Date/Type/Reason Admit Date/Time Jan 07, 2017 at 10:13 Initial Consult Date 01/19/17 Type of Consultation: Infectious Diseases Referring Provider: JENY MORA MD 24 HR Interval Summary Free Text/Dictation He is awake and alert today. His said he did go to the bathroom on his own. He has not had any epistaxis today. He did have dialysis yesterday. Constitutional: no complaints Exam/Review of Systems Vital Signs Vitals Vital Signs Date Time Temp Pulse Resp B/P Pulse Ox O2 Delivery O2 Flow Rate FiO2 02/02/17 08:12 94 02/02/17 08:10 22 97 Nasal Cannula 2.0 02/02/17 07:39 99.1 129/63 02/01/17 02:18 31 Intake and Output 02/01/17 02/01/17 02/02/17 15:00 23:00 07:00 Intake Total 1500 ml 1950 ml 350 ml Output Total 5000 ml 100 ml 50 ml Balance -3500 ml 1850 ml 300 ml Exam Constitutional: alert, frail, obese, oriented Respiratory: clear to auscultation, diminished breath sounds Cardiovascular: edema, regular rate and rhythm Gastrointestinal: distended, non-tender, soft Results Result Diagram: 02/02/17 0612 02/02/17 0612 Results 24 hrs Laboratory Tests Test 02/01/17 11:57 02/01/17 13:15 02/01/17 17:25 02/01/17 21:27 Bedside Glucose 161 171 140 Hemoglobin 7.0 L Hematocrit 23.9 L Test 02/02/17 06:12 02/02/17 07:04 02/02/17 08:05 White Blood Count 7.3 Red Blood Count 3.27 L Hemoglobin 8.6 #L Hematocrit 28.0 L Mean Corpuscular Volume 85.6 Mean Corpuscular Hemoglobin 26.3 L Mean Corpuscular Hemoglobin Concent 30.7 L Red Cell Distribution Width 18.8 H Platelet Count 79 #L Mean Platelet Volume 12.4 H Neutrophils % 78.9 H Lymphocytes % 9.9 L Monocytes % 6.2 Eosinophils % 4.4 Basophils % 0.3 Nucleated Red Blood Cells % 0.0 Neutrophils # 5.8 Lymphocytes # 0.7 L Monocytes # 0.5 Eosinophils # 0.3 Basophils # 0.0 Nucleated Red Blood Cells # 0.0 Sodium Level 141 Potassium Level 3.2 L Chloride Level 99 Carbon Dioxide Level 30 Anion Gap 15 Blood Urea Nitrogen 28 #H Creatinine 5.24 H Glucose Level 109 # Calcium Level 7.4 L Total Bilirubin 0.3 Direct Bilirubin 0.00 Indirect Bilirubin 0.3 Aspartate Amino Transf (AST/SGOT) 32 Alanine Aminotransferase (ALT/SGPT) 43 Alkaline Phosphatase 104 Ammonia < 9 #L Total Protein 6.9 Albumin 2.6 L Globulin 4.30 H Albumin/Globulin Ratio 0.60 Lab Scanned Report BLOOD TRANSFUSION Bedside Glucose 154 Medications Medications Current Medications Atorvastatin Calcium (Lipitor) 20 mg HS PO Last administered on 01/29/17t 20:50 ; Admin Dose 20 MG; Start 01/07/17 at 21:00 Miscellaneous Information 1 ea NOTE XX ; Start 01/07/17 at 17:30 Glucose (Glutose) 15 gm Q15M PRN PO DECREASED GLUCOSE; Start 01/07/17 at 17:30 Glucose (Glutose) 22.5 gm Q15M PRN PO DECREASED GLUCOSE; Start 01/07/17 at 17: 30 Dextrose (D50w Syringe) 25 ml Q15M PRN IV DECREASED GLUCOSE; Start 01/07/17 at 17:30 Dextrose (D50w Syringe) 50 ml Q15M PRN IV DECREASED GLUCOSE; Start 01/07/17 at 17:30 Glucagon (Glucagen) 1 mg Q15M PRN IM DECREASED GLUCOSE; Start 01/07/17 at 17:30 Glucose (Glutose) 15 gm Q15M PRN BUCCAL DECREASED GLUCOSE; Start 01/07/17 at 17 :30 Nifedipine (Procardia Xl) 30 mg DAILY PO Last administered on 01/31/17 08:35; Admin Dose 30 MG; Start 01/08/17 at 09:00 Docusate Sodium (Colace) 100 mg BID PRN PO CONSTIPATION Last administered on 11:56; Admin Dose 100 MG; Start 01/08/17 at 14:00 Acetaminophen (Tylenol Tab) 500 mg Q6H PRN PO PAIN AND OR ELEVATED TEMP Last administered on 02/01/17 09:30; Admin Dose 500 MG; Start 01/08/17 at 15:30 Diagnostic Test (Pha) (Accu-Chek) 1 ea 02 XX Last administered on 01/31/17 02: 25; Admin Dose 1 EA; Start 01/15/17 at 02:00 Insulin Aspart 10 unit 10 unit ONCE PRN SC ELEVATED GLUCOSE Last administered on 01/21/17 02:15; Admin Dose 10 UNIT; Start 01/17/17 at 02:00 Sodium Chloride (1/2 NS) 1,000 ml @ 40 mls/hr Q24H IV Last administered on 01/18 21:32; Admin Dose 75 MLS/HR; Start 01/17/17 at 17:00; Status Future Hold Nitroglycerin (Nitroglycerin (Sl Tab) 0.4 Mg) 1 tab Q5M PRN SL ANGINA; Start at 21:30 Epoetin Sean (Epogen (Esrd)) 10,000 units MoWeFr@17 SC Last administered on 17:03; Admin Dose 10,000 UNITS; Start 01/19/17 at 17:00 Lubiprostone (Amitiza) 24 mcg BID PO Last administered on 02/01/17 22:00; Admin Dose 24 MCG; Start 01/21/17 at 21:00 Ondansetron HCl (Zofran Inj) 4 mg Q4H PRN IV NAUSEA AND/OR VOMITING Last administered on 01/28/17 13:32; Admin Dose 4 MG; Start 01/24/17 at 13:30 Rifaximin (Xifaxan) 550 mg BID PO Last administered on 02/01/17 22:00; Admin Dose 550 MG; Start 01/26/17 at 09:00 IV Flush 10 ml 10 ml PRN PRN IV IV PROTOCOL; Start 01/27/17 at 15:00 Ceftriaxone Sodium (Rocephin) 50 ml @ 100 mls/hr Q24H IVPB Last administered on 02/01/17 12:00; Admin Dose 100 MLS/HR; Start 01/29/17 at 11:30 Multivitamins Therapeutic (Theragran) 1 tab DAILY PO Last administered on 08:20; Admin Dose 1 TAB; Start 01/30/17 at 09:00 Lactulose (Enulose) 30 gm Q6 GTB Last administered on 02/02/17 05:49; Admin Dose 30 GM; Start 01/29/17 at 20:00 Insulin Glargine (Lantus) 32 unit DAILY@20 SC Last administered on 02/01/17 20 :00; Admin Dose 32 UNIT; Start 01/31/17 at 20:00 Hydroxyzine HCl (Atarax) 10 mg Q6H PRN PO ITCHING Last administered on 22:00; Admin Dose 10 MG; Start 02/01/17 at 17:30 Triamcinolone Acetonide (Kenalog 0.1% Oint) 1 applic BID TOP Last administered on 02/01/17 22:00; Admin Dose 1 APPLIC; Start 02/01/17 at 21:00 ANA MELENDEZ MD Feb 02, 2017 08:41
[2017-02-02] MEDS ORDERED: VANCOMYCIN IV PER PHARMACY XX SCH (09:00)
[2017-02-02] MEDS: NIFEdipine (XL) 30 MG TAB PO SCH (09:00)
--- NOTE | 2017-02-02 09:00 | CONS ---
Date/Time of Note Date/Time of Note DATE: 02/02/17 TIME: 08:57 Assessment/Plan Assessment/Plan Chief Complaint/Hosp Course 1)Liver cirrhosis with portal HTN due to Hep C to repeat ammonia level 01/21 - ammonia level is mildly elevated at 57 consider lacutlose 01/26 - pt getting lactulose due to rising ammonia level but so far no BM's 01/27 - pt had one BM yesterday only will re-check ammonia level consider increasing lacutulose dose, pt also on rifaximin 01/29 - ammonia level is decreasing 2) CHF +/- pneumonia unable to tolerate lasix with worsening renal function 01/21 - in light of MSSA in blood and no open wounds or chronic IV in place, concern would be lung may be the portal of entry to start zosyn to cover for lung infection as well as the MSSA CXR does not show a lobar infiltrate 01/22 - continue with zosyn 01/23 - beta d glucan to look for invasive fungal disease was negative continue with zosyn 01/24 - stable on zosyn wbc is back to normal 01/26 - stable, WBC minimal elevated pt would likely benefit from a blood tx 01/29 - pt has completed his course for pneumonia d/c zosyn and start ceftriaxone for continued treatment of his MSSA bacteremia 01/30 - breathing is stable off zosyn and only on ceftriaxone 02/02 - allergic drug reaction so will stop ceftriaxone and go to iv vanco 3) r/o SBP pt to get paracentesis later today cefotaxime was started by the primary if fevers not improving will broaden the coverage 01/20 - pt to get paracentesis today continue with cefotaxime 01/21 - low number of PMN's in ascitic fluid, this in not the source for his MSSA d/c cefotaxime 4) new onset fever with leukocytosis pt has been on steroids but this does not explain the new fever the potential sources would include, ascitic fluid, lung urinalysis does not suggest an infection will order beta d glucan, aspergillus galactomannan, procalcitonin in a.m. will order LE dopplers to make sure no DVT has developed if cefotaxime does not improve his fever, wbc then will broaden coverage to include lung infection 01/20 - await paracentesis and a.m. labs vanco added due to GPC in blood cx fevers appear improved 01/21 - MSSA is present in blood and urine cx u/a did not show signs of infection and so the urine may only be seeded from the bacteremia will order repeat u/a at this time d/c vanco/cefotaxime and start zosyn since there is no skin breakdown or ulcers the lung becomes a more likely portal of entry 01/22 - fevers resolved continue with zosyn for bacteremia and possible pneumonia 5) MSSA bacteremia 01/20 - no central line in place, IV sites look ok await ID to see if true infection or a contaminant vanco started, will order repeat blood cx now 01/21 - true infection of blood with MSSA repeat blood cx from 01/20 is NGTD d/c vanco/cefotaxime and start zosyn check u/a 01/22 - MSSA in one set from 01/20 repeat blood cx today pt needs dialysis and likely he is no longer bacteremic so ok for dialysis line but if pt remains bacteremic it will need to be replaced 01/23 - pt to get dialysis line today and likely HD afterwards continue with zosyn 01/24 - repeat blood cx from 01/22 remain NGTD wbc is back to normal anticipate a 4 week course of treatment for this, will eventually change zosyn to ceftriaxone 01/26 - consider blood tx to help with effectiveness of antibiotics 01/27 - repeat blood cx remain neg from 01/22 and 01/25 01/29 - changed to ceftriaxone and continue thru 02/16/1701/30 - tolerating ceftriaxone, continue thru 02/16/1702/02 - due to rash will change ceftriaxone to vanco and continue vanco thru 6) anemia 01/26 - when pt does have a BM will get hemoccult to see if pt will need prophylaxis for SBP consider blood tx 7) allergic drug reaction (02/02/17) likely culprits would be rifaximin, prior zosyn or current ceftriaxone d/c ceftriaxone and rifaximin and start IV vanco Problems: Consultation Date/Type/Reason Admit Date/Time Jan 07, 2017 at 10:13 Initial Consult Date 01/19/17 Type of Consultation: Infectious Diseases Referring Provider: JENY MORA MD 24 HR Interval Summary Free Text/Dictation pt alert and cooperative has rash that is itching to front and back no N, V has loose stools on lactulose no SOB Exam/Review of Systems Vital Signs Vitals Vital Signs Date Time Temp Pulse Resp B/P Pulse Ox O2 Delivery O2 Flow Rate FiO2 02/02/17 08:12 94 02/02/17 08:10 22 97 Nasal Cannula 2.0 02/02/17 07:39 99.1 129/63 02/01/17 02:18 31 Intake and Output 02/01/17 02/01/17 02/02/17 15:00 23:00 07:00 Intake Total 1500 ml 1950 ml 350 ml Output Total 5000 ml 100 ml 50 ml Balance -3500 ml 1850 ml 300 ml Exam Constitutional: alert Head: normocephalic ENMT: mucosa pink and moist Respiratory: clear to auscultation Cardiovascular: regular rate and rhythm Gastrointestinal: non-tender, soft Extremities: other (diffuse spotty macular rash to abd/chest and back and a few on R thigh) Results Result Diagram: 02/02/17 0612 02/02/17 0612 Results 24 hrs Laboratory Tests Test 02/01/17 11:57 02/01/17 13:15 02/01/17 17:25 02/01/17 21:27 Bedside Glucose 161 171 140 Hemoglobin 7.0 L Hematocrit 23.9 L Test 02/02/17 06:12 02/02/17 07:04 02/02/17 08:05 White Blood Count 7.3 Red Blood Count 3.27 L Hemoglobin 8.6 #L Hematocrit 28.0 L Mean Corpuscular Volume 85.6 Mean Corpuscular Hemoglobin 26.3 L Mean Corpuscular Hemoglobin Concent 30.7 L Red Cell Distribution Width 18.8 H Platelet Count 79 #L Mean Platelet Volume 12.4 H Neutrophils % 78.9 H Lymphocytes % 9.9 L Monocytes % 6.2 Eosinophils % 4.4 Basophils % 0.3 Nucleated Red Blood Cells % 0.0 Neutrophils # 5.8 Lymphocytes # 0.7 L Monocytes # 0.5 Eosinophils # 0.3 Basophils # 0.0 Nucleated Red Blood Cells # 0.0 Sodium Level 141 Potassium Level 3.2 L Chloride Level 99 Carbon Dioxide Level 30 Anion Gap 15 Blood Urea Nitrogen 28 #H Creatinine 5.24 H Glucose Level 109 # Calcium Level 7.4 L Total Bilirubin 0.3 Direct Bilirubin 0.00 Indirect Bilirubin 0.3 Aspartate Amino Transf (AST/SGOT) 32 Alanine Aminotransferase (ALT/SGPT) 43 Alkaline Phosphatase 104 Ammonia < 9 #L Total Protein 6.9 Albumin 2.6 L Globulin 4.30 H Albumin/Globulin Ratio 0.60 Lab Scanned Report BLOOD TRANSFUSION Bedside Glucose 154 Medications Medications Current Medications Atorvastatin Calcium (Lipitor) 20 mg HS PO Last administered on 01/29/17 20:50 ; Admin Dose 20 MG; Start 01/07/17 at 21:00 Miscellaneous Information 1 ea NOTE XX ; Start 01/07/17 at 17:30 Glucose (Glutose) 15 gm Q15M PRN PO DECREASED GLUCOSE; Start 01/07/17 at 17:30 Glucose (Glutose) 22.5 gm Q15M PRN PO DECREASED GLUCOSE; Start 01/07/17 at 17: 30 Dextrose (D50w Syringe) 25 ml Q15M PRN IV DECREASED GLUCOSE; Start 01/07/17 at 17:30 Dextrose (D50w Syringe) 50 ml Q15M PRN IV DECREASED GLUCOSE; Start 01/07/17 at 17:30 Glucagon (Glucagen) 1 mg Q15M PRN IM DECREASED GLUCOSE; Start 01/07/17 at 17:30 Glucose (Glutose) 15 gm Q15M PRN BUCCAL DECREASED GLUCOSE; Start 01/07/17 at 17 :30 Nifedipine (Procardia Xl) 30 mg DAILY PO Last administered on 01/31/17 08:35; Admin Dose 30 MG; Start 01/08/17 at 09:00 Docusate Sodium (Colace) 100 mg BID PRN PO CONSTIPATION Last administered on 11:56; Admin Dose 100 MG; Start 01/08/17 at 14:00 Acetaminophen (Tylenol Tab) 500 mg Q6H PRN PO PAIN AND OR ELEVATED TEMP Last administered on 02/01/17 09:30; Admin Dose 500 MG; Start 01/08/17 at 15:30 Diagnostic Test (Pha) (Accu-Chek) 1 ea 02 XX Last administered on 01/31/17 02: 25; Admin Dose 1 EA; Start 01/15/17 at 02:00 Insulin Aspart 10 unit 10 unit ONCE PRN SC ELEVATED GLUCOSE Last administered on 01/21/17 02:15; Admin Dose 10 UNIT; Start 01/17/17 at 02:00 Sodium Chloride (1/2 NS) 1,000 ml @ 40 mls/hr Q24H IV Last administered on 01/18 21:32; Admin Dose 75 MLS/HR; Start 01/17/17 at 17:00; Status Future Hold Nitroglycerin (Nitroglycerin (Sl Tab) 0.4 Mg) 1 tab Q5M PRN SL ANGINA; Start at 21:30 Epoetin Sean (Epogen (Esrd)) 10,000 units MoWeFr@17 SC Last administered on 17:03; Admin Dose 10,000 UNITS; Start 01/19/17 at 17:00 Lubiprostone (Amitiza) 24 mcg BID PO Last administered on 02/01/17 22:00; Admin Dose 24 MCG; Start 01/21/17 at 21:00 Ondansetron HCl (Zofran Inj) 4 mg Q4H PRN IV NAUSEA AND/OR VOMITING Last administered on 01/28/17 13:32; Admin Dose 4 MG; Start 01/24/17 at 13:30 Rifaximin (Xifaxan) 550 mg BID PO Last administered on 02/01/17 22:00; Admin Dose 550 MG; Start 01/26/17 at 09:00 IV Flush (NS 10 ml) 10 ml PRN PRN IV IV PROTOCOL; Start 01/27/17 at 15:00 Multivitamins Therapeutic (Theragran) 1 tab DAILY PO Last administered on 08:20; Admin Dose 1 TAB; Start 01/30/17 at 09:00 Lactulose (Enulose) 30 gm Q6 GTB Last administered on 02/02/17 05:49; Admin Dose 30 GM; Start 01/29/17 at 20:00 Insulin Glargine (Lantus) 32 unit DAILY@20 SC Last administered on 02/01/17 20 :00; Admin Dose 32 UNIT; Start 01/31/17 at 20:00 Hydroxyzine HCl (Atarax) 10 mg Q6H PRN PO ITCHING Last administered on 22:00; Admin Dose 10 MG; Start 02/01/17 at 17:30 Triamcinolone Acetonide (Kenalog 0.1% Oint) 1 applic BID TOP Last administered on 02/01/17t 22:00; Admin Dose 1 APPLIC; Start 02/01/17 at 21:00 DANYEL HART MD Feb 02, 2017 09:00
[2017-02-02] MEDS: LUBIPROSTONE 24 MCG CAP PO SCH ×2 (09:47→20:34)
[2017-02-02] MEDS: MULTIVITAMINS THERAPEUTIC TAB PO SCH (09:47)
--- NOTE | 2017-02-02 10:22 | PN ---
Date/Time of Note Date/Time of Note DATE: 02/02/17 TIME: 10:16 Assessment/Plan Lines/Catheters IV Catheter Type (from Nrs): PICC Line Sykes in Place (from Nrs): Yes Assessment/Plan Chief Complaint/Hosp Course 1. [place] obesity: BMI 48 -encourage weight loss -nutrition optimization -eventual bariatric surgery when medically stable 2. CHF: dyspnea with pulmonary congestion; dyspnea improved -continue diuresis per cards/renal -medical optimization -HD 3. Elevated troponin: renal failure vs NSTEMI; invasive/stress testing not recommended at this time per cards -trend and monitor 4. Chronic kidney disease: HD -per renal 5. Diabetes: blood sugar labile; on long acting and short acting insulin -optimize blood sugar control 6. Hypertension: controlled -cont. antihypertensives 7. YEVGENIY: morbid obesity, dyspnea improved after HD -cpap 8. Leukocytosis: on steroids; (repeat blood cx: no growth) vs. dvt; no fevers; ascitic fluid (low PMN- not the source per ID); cultures no growth, wbc improving -abx per sensitivity 9. Dyspnea: multifactorial chf+ morbid obesity + ascites + YEVGENIY; improved; s/p dialysis -supportive -as above 10. Hyponatremia now with hypernatremia: s/p dialysis; improving - judicious fluid management 11. Anemia: CKD +/- chronic disease; doubt active bleed; h/h improved -monitor -transfuse as needed 12. Hypothyroidism; low tsh/t4 -medical optimization 13. Hypocalcemia: likely 2/2 poor nutrition + hypothyroid -optimize lytes -as above -medical optimization 14. Hypoalbuminemia: liver disease +/- malnutrition, -replete -nutrition optimization 15. Hepatic encephalopathy: Hepatitis C history, on treatment; ammonia levels improved; more awake and oriented -per gi/hepatology 16. Thrombocytosis: 2/2 liver disease; improved -bleeding precautions -supportive 17. Rash: ?drug reaction -abx changed per ID 18. Hypokalemia -replete and monitor Patient seen and examined in collaboration with Dr. Marcelino Morales Problems: Subjective 24 Hr Interval Summary Somnolent but feeling well. Min sob. Tolerated HD yesterday. Rash torso, arms and back. No c/o mccallum, sz, dizziness, cp, palpitations, n/v/d. Exam/Review of Systems Vital Signs Vitals Vital Signs Date Time Temp Pulse Resp B/P Pulse Ox O2 Delivery O2 Flow Rate FiO2 02/02/17 08:12 94 02/02/17 08:10 22 97 Nasal Cannula 2.0 02/02/17 07:39 99.1 129/63 02/01/17 02:18 31 Intake and Output 02/01/17 02/01/17 02/02/17 15:00 23:00 07:00 Intake Total 1500 ml 1950 ml 350 ml Output Total 5000 ml 100 ml 50 ml Balance -3500 ml 1850 ml 300 ml Exam Free Text/Dictation Constitutional: awake, obese, oriented Psych: nl mood/affect, no complaints Head: atraumatic, normocephalic Eyes: nl conjunctiva, nl lids ENMT: mucosa pink and moist Neck: non-tender, supple; right IJ Respiratory: diminished breath sounds; no use of accessory muscles Cardiovascular: regular rate and rhythm Gastrointestinal: distended (mod), non-tender, soft Genitourinary - Male: nl penis, nl scrotum, No CVA tenderness; sykes, clear urine output Musculoskeletal: nl extremities to inspection Extremities: edema (ble 3+), normal pulses 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: no nl mental status, nl speech Skin: pinpoint rash torso, upper arms and back Results Result Diagram: 02/02/1761102/02/17611 ERLINDA VALLE NP Feb 02, 2017 10:22
[2017-02-02] MEDS: VANCOMYCIN 1.5 GM in SOD CHLORIDE 0.9% 250 ML IVPB SCH ×2 (10:45→14:07)
--- NOTE | 2017-02-02 12:26 | CONS ---
Date/Time of Note Date/Time of Note DATE: 02/02/17 TIME: 12:25 Consult Date/Type/Reason Admit Date/Time Jan 07, 2017 at 10:13 Initial Consult Date 01/09/17 Type of Consultation: Pulmonary Ordering Provider: JENY MORA MD Subjective Complaining of headache this morning. Opens eyes on simple questions. More alert according to family. No hemoptysis this morning. Objective Vital Signs Date Time Temp Pulse Resp B/P Pulse Ox O2 Delivery O2 Flow Rate FiO2 02/02/17 12:07 94 02/02/17 11:47 99.0 18 112/55 94 02/02/17 08:10 Nasal Cannula 2.0 02/01/17 02:18 31 Intake and Output 02/01/17 02/01/17 02/02/17 14:59 22:59 06:59 Intake Total 3450 ml 350 ml Output Total 5100 ml 50 ml Balance -1650 ml 300 ml Exam General moderately obese gentleman on nasal cannula O2 appears comfortable at rest HEENT dry mucous membranes pupils equal reactive to light OP clear Neck supple no JVD or lymphadenopathy Cardiac exam S1-S2 distant heart sounds Chest diminished air entry bilaterally poor respiratory effort Abdomen is obese soft nontender no guarding rebound Extremities no cyanosis, 2+ edema 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ly generalized weakness. Results/Medications Result Diagram: 02/02/17 0612 02/02/17 0612 Results 24 hrs Laboratory Tests Test 02/01/17 13:15 02/01/17 17:25 02/01/17 21:27 02/02/17 06:12 Hemoglobin 7.0 L 8.6 #L Hematocrit 23.9 L 28.0 L Bedside Glucose 171 140 White Blood Count 7.3 Red Blood Count 3.27 L Mean Corpuscular Volume 85.6 Mean Corpuscular Hemoglobin 26.3 L Mean Corpuscular Hemoglobin Concent 30.7 L Red Cell Distribution Width 18.8 H Platelet Count 79 #L Mean Platelet Volume 12.4 H Neutrophils % 78.9 H Lymphocytes % 9.9 L Monocytes % 6.2 Eosinophils % 4.4 Basophils % 0.3 Nucleated Red Blood Cells % 0.0 Neutrophils # 5.8 Lymphocytes # 0.7 L Monocytes # 0.5 Eosinophils # 0.3 Basophils # 0.0 Nucleated Red Blood Cells # 0.0 Sodium Level 141 Potassium Level 3.2 L Chloride Level 99 Carbon Dioxide Level 30 Anion Gap 15 Blood Urea Nitrogen 28 #H Creatinine 5.24 H Glucose Level 109 # Calcium Level 7.4 L Total Bilirubin 0.3 Direct Bilirubin 0.00 Indirect Bilirubin 0.3 Aspartate Amino Transf (AST/SGOT) 32 Alanine Aminotransferase (ALT/SGPT) 43 Alkaline Phosphatase 104 Ammonia < 9 #L Total Protein 6.9 Albumin 2.6 L Globulin 4.30 H Albumin/Globulin Ratio 0.60 Test 02/02/17 07:04 02/02/17 08:05 Lab Scanned Report BLOOD TRANSFUSION Bedside Glucose 154 Medications Current Medications Atorvastatin Calcium (Lipitor) 20 mg HS PO Last administered on 01/29/17 20:50 ; Admin Dose 20 MG; Start 01/07/17 at 21:00 Miscellaneous Information 1 ea NOTE XX ; Start 01/07/17 at 17:30 Glucose (Glutose) 15 gm Q15M PRN PO DECREASED GLUCOSE; Start 01/07/17 at 17:30 Glucose (Glutose) 22.5 gm Q15M PRN PO DECREASED GLUCOSE; Start 01/07/17 at 17: 30 Dextrose (D50w Syringe) 25 ml Q15M PRN IV DECREASED GLUCOSE; Start 01/07/17 at 17:30 Dextrose (D50w Syringe) 50 ml Q15M PRN IV DECREASED GLUCOSE; Start 01/07/17 at 17:30 Glucagon (Glucagen) 1 mg Q15M PRN IM DECREASED GLUCOSE; Start 01/07/17 at 17:30 Glucose (Glutose) 15 gm Q15M PRN BUCCAL DECREASED GLUCOSE; Start 01/07/17 at 17 :30 Nifedipine (Procardia Xl) 30 mg DAILY PO Last administered on 01/31/17 08:35; Admin Dose 30 MG; Start 01/08/17 at 09:00 Docusate Sodium (Colace) 100 mg BID PRN PO CONSTIPATION Last administered on 11:56; Admin Dose 100 MG; Start 01/08/17 at 14:00 Acetaminophen (Tylenol Tab) 500 mg Q6H PRN PO PAIN AND OR ELEVATED TEMP Last administered on 02/01/17 09:30; Admin Dose 500 MG; Start 01/08/17 at 15:30 Diagnostic Test (Pha) (Accu-Chek) 1 ea 02 XX Last administered on 01/31/17 02: 25; Admin Dose 1 EA; Start 01/15/17 at 02:00 Insulin Aspart 10 unit 10 unit ONCE PRN SC ELEVATED GLUCOSE Last administered on 01/21/17 02:15; Admin Dose 10 UNIT; Start 01/17/17 at 02:00 Sodium Chloride (1/2 NS) 1,000 ml @ 40 mls/hr Q24H IV Last administered on 01/18 21:32; Admin Dose 75 MLS/HR; Start 01/17/17 at 17:00; Status Future Hold Nitroglycerin (Nitroglycerin (Sl Tab) 0.4 Mg) 1 tab Q5M PRN SL ANGINA; Start at 21:30 Epoetin Sean (Epogen (Esrd)) 10,000 units MoWeFr@17 SC Last administered on 17:03; Admin Dose 10,000 UNITS; Start 01/19/17 at 17:00 Lubiprostone (Amitiza) 24 mcg BID PO Last administered on 02/02/17 09:47; Admin Dose 24 MCG; Start 01/21/17 at 21:00 Ondansetron HCl (Zofran Inj) 4 mg Q4H PRN IV NAUSEA AND/OR VOMITING Last administered on 01/28/17 13:32; Admin Dose 4 MG; Start 01/24/17 at 13:30 IV Flush (NS 10 ml) 10 ml PRN PRN IV IV PROTOCOL; Start 01/27/17 at 15:00 Multivitamins Therapeutic (Theragran) 1 tab DAILY PO Last administered on 09:47; Admin Dose 1 TAB; Start 01/30/17 at 09:00 Lactulose (Enulose) 30 gm Q6 GTB Last administered on 02/02/17 05:49; Admin Dose 30 GM; Start 01/29/17 at 20:00 Insulin Glargine (Lantus) 32 unit DAILY@20 SC Last administered on 02/01/17 20 :00; Admin Dose 32 UNIT; Start 01/31/17 at 20:00 Hydroxyzine HCl (Atarax) 10 mg Q6H PRN PO ITCHING Last administered on 22:00; Admin Dose 10 MG; Start 02/01/17 at 17:30 Triamcinolone Acetonide 1 applic 1 applic BID TOP Last administered on 22:00; Admin Dose 1 APPLIC; Start 02/01/17 at 21:00 Vancomycin HCl/ Sodium Chloride (Vancocin/NS) 250 ml @ 83.333 mls/ hr Q3H IVPB Last administered on 02/02/17 10:45; Admin Dose 83.333 MLS/HR; Start at 10:30; Stop 02/02/17 at 16:29 Assessment/Plan Chief Complaint/Hosp Course IMP: 1. Dyspnea--likely multifactorial, component of obesity pulmonary edema cirrhosis obstructive sleep apnea. Trial of BiPAP. 2. 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 YEVGENIY 4. CKD now on hemodialysis 5. Encephalopathy toxic metabolic. Not secondary to obstructive sleep apnea as patient does not have chronic CO2 retention on arterial blood gas. 6. Anemia likely secondary to chronic disease 7. Thrombocytopenia unclear etiology, possible HIT ? TTP. RECS: 1. BD's 2. Aspiration precautions 3. Encourage out of bed 4. Hemodialysis per nephrology 5. Continue rifaximin and lactulose Discussed with family at bedside. Problems: GUERITA RESENDIZ MD, [facility] Feb 02, 2017 12:26
[2017-02-02] MEDS: TRIAMCINOLONE ACET 0.1% 15 GM OINT TOP SCH ×2 (12:37→20:35)
--- NOTE | 2017-02-02 12:44 | PN ---
DATE: SUBJECTIVE DATA: Patient continues to have shortness of breath, has cough with mucoid expectoration. Denies any chest pains, no palpitations. Tends to sleep on and off, snoring loudly. PHYSICAL EXAM: VITAL SIGNS: Patient is afebrile, temperature 97.8. Blood pressure 124/68, O2 saturation 95 percent on 3 L nasal cannula. Intake and output: 1350 in; output is 1500 GENERAL: Mild pallor without cyanosis. CHEST: Occasional wheezes. HEART: S1, S2 with murmurs and gallops. ABDOMEN: Obese. No definite tenderness. EXTREMITIES: There is 3+ edema. Homans sign is negative. LABORATORY AND DIAGNOSTIC DATA: WBC count 11.3, hematocrit 26.3, platelet count 86,000. Sodium 131, potassium 4.5. BUN 106, creatinine 3.47. Acidic fluid, WBCs 55, RBCs 4, lymphocytes 57, monocytes 36 percent. Glucose 208. Protein less than 2. Serum ammonia 57. Blood cultures consistent with MSSA. Case discussed with Dr Yadav. Patient unlikely to have spontaneous bacterial peritonitis. Cefotaxime has been discontinued, and patient has been started on Zosyn. IMPRESSION: 1. Respiratory failure, combination of restrictive lung disease and asthmatic bronchitis, possible pneumonia left upper lobe. Chest x-ray shows minimal infiltrate. 2. Cirrhosis with portal hypertension, status post hepatitis C, treated. 3. Obstructive sleep apnea. 4. Morbid obesity. 5. Diabetes mellitus, type 2. 6. Worsening kidney function with [id number] failure. PLAN: Will continue IV antibiotics per Dr Yadav for MSSA bacteremia. Closely monitor renal function and LFTs. Consideration of dialysis by . Dictated By: Ivan Brice MD /[email or web address] /Document#: [id number]
--- NOTE | 2017-02-02 16:10 | CONS ---
Date/Time of Note Date/Time of Note DATE: 02/02/17 TIME: 16:09 Assessment/Plan Assessment/Plan Chief Complaint/Hosp Course 61-year-old male admitted for shortness of breath. Patient is a history of hepatitis C cirrhosis of liver, morbid obesity obstructive sleep apnea, diabetes mellitus and hypertension. Recent was brought to the emergency room for abdominal distention and shortness of breath. He was slightly nauseous. 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 Problems: Additional Assessment/Plan Additional Assessment/Plan 1. Shortness of breath multifactorial, much better 2. Morbid obesity, patient lost 22 pounds 3. Cirrhosis of liver with portal hypertension 4. Mild ascites 5. Diabetes 6. Hypertension 7. Renal failure 8. Anasarca 9. Bacteremia staph positive in the blood culture 10. No evidence of spontaneous bacterial peritonitis 11. Severe constipation, better 12. Profound weakness, second to dialysis 13. Encephalopathy, much better, and ammonia is back to normal 14 epistaxis, resolved Plan P.o. fluid restriction 1000 cc a day Low-sodium diet Monitor BUN and creatinine closely Weight loss Supplemental oxygen Dietary consult, reduce calorie intake to 1000-calorie a day Discussed with the patient and the family Continue antibiotic Continue with the dialysis and remove fluid as tolerated by the patien Avoid sedatives and narcotic Restarted lactulose, patient is more awake and alert Discussed with the family patient needs to ambulate Consultation Date/Type/Reason Admit Date/Time Jan 07, 2017 at 10:13 Initial Consult Date 01/09/17 Type of Consultation: Pulmonary Referring Provider: JENY MORA MD 24 HR Interval Summary Free Text/Dictation No epistaxis, patient. Patient feels tired and weak Constitutional: improved Exam/Review of Systems Vital Signs Vitals Vital Signs Date Time Temp Pulse Resp B/P Pulse Ox O2 Delivery O2 Flow Rate FiO2 02/02/17 15:28 98.4 92 19 129/66 96 02/02/17 13:28 2.0 02/02/17 13:24 Nasal Cannula 02/01/17 02:18 31 Intake and Output 02/01/17 02/01/17 02/02/17 15:00 23:00 07:00 Intake Total 1500 ml 1950 ml 350 ml Output Total 5000 ml 100 ml 50 ml Balance -3500 ml 1850 ml 300 ml Exam Constitutional: alert, oriented, well developed Psych: nl mood/affect, no complaints Head: atraumatic, normocephalic Eyes: EOMI, PERRL, nl conjunctiva, nl lids, nl sclera ENMT: nl external ears & nose, nl lips & teeth, nl nasal mucosa & septum Neck: non-tender, supple Respiratory: clear to auscultation, normal air movement Cardiovascular: nl pulses, regular rate and rhythm Gastrointestinal: nl liver, spleen, non-tender, soft Musculoskeletal: nl extremities to inspection, nl gait and stance Extremities: normal pulses 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: DATA MANAGEMENT ASSOCIATE II-XII intact, nl mental status, nl speech, nl strength Skin: nl turgor, No rash or lesions Lymph: nl lymph nodes Results Result Diagram: 02/02/17 0612 02/02/17 0612 Results 24 hrs Laboratory Tests Test 02/01/17 17:25 02/01/17 21:27 02/02/17 06:12 02/02/17 07:04 Bedside Glucose 171 140 White Blood Count 7.3 Red Blood Count 3.27 L Hemoglobin 8.6 #L Hematocrit 28.0 L Mean Corpuscular Volume 85.6 Mean Corpuscular Hemoglobin 26.3 L Mean Corpuscular Hemoglobin Concent 30.7 L Red Cell Distribution Width 18.8 H Platelet Count 79 #L Mean Platelet Volume 12.4 H Neutrophils % 78.9 H Lymphocytes % 9.9 L Monocytes % 6.2 Eosinophils % 4.4 Basophils % 0.3 Nucleated Red Blood Cells % 0.0 Neutrophils # 5.8 Lymphocytes # 0.7 L Monocytes # 0.5 Eosinophils # 0.3 Basophils # 0.0 Nucleated Red Blood Cells # 0.0 Sodium Level 141 Potassium Level 3.2 L Chloride Level 99 Carbon Dioxide Level 30 Anion Gap 15 Blood Urea Nitrogen 28 #H Creatinine 5.24 H Glucose Level 109 # Calcium Level 7.4 L Total Bilirubin 0.3 Direct Bilirubin 0.00 Indirect Bilirubin 0.3 Aspartate Amino Transf (AST/SGOT) 32 Alanine Aminotransferase (ALT/SGPT) 43 Alkaline Phosphatase 104 Ammonia < 9 #L Total Protein 6.9 Albumin 2.6 L Globulin 4.30 H Albumin/Globulin Ratio 0.60 Lab Scanned Report BLOOD TRANSFUSION Test 02/02/17 08:05 02/02/17 12:29 Bedside Glucose 154 145 Medications Medications Current Medications Atorvastatin Calcium (Lipitor) 20 mg HS PO Last administered on 01/29/17 20:50 ; Admin Dose 20 MG; Start 01/07/17 at 21:00 Miscellaneous Information 1 ea NOTE XX ; Start 01/07/17 at 17:30 Glucose (Glutose) 15 gm Q15M PRN PO DECREASED GLUCOSE; Start 01/07/17 at 17:30 Glucose (Glutose) 22.5 gm Q15M PRN PO DECREASED GLUCOSE; Start 01/07/17 at 17: 30 Dextrose (D50w Syringe) 25 ml Q15M PRN IV DECREASED GLUCOSE; Start 01/07/17 at 17:30 Dextrose (D50w Syringe) 50 ml Q15M PRN IV DECREASED GLUCOSE; Start 01/07/17 at 17:30 Glucagon (Glucagen) 1 mg Q15M PRN IM DECREASED GLUCOSE; Start 01/07/17 at 17:30 Glucose (Glutose) 15 gm Q15M PRN BUCCAL DECREASED GLUCOSE; Start 01/07/17 at 17 :30 Nifedipine (Procardia Xl) 30 mg DAILY PO Last administered on 01/31/17 08:35; Admin Dose 30 MG; Start 01/08/17 at 09:00 Docusate Sodium (Colace) 100 mg BID PRN PO CONSTIPATION Last administered on 11:56; Admin Dose 100 MG; Start 01/08/17 at 14:00 Acetaminophen (Tylenol Tab) 500 mg Q6H PRN PO PAIN AND OR ELEVATED TEMP Last administered on 02/01/17 09:30; Admin Dose 500 MG; Start 01/08/17 at 15:30 Diagnostic Test (Pha) (Accu-Chek) 1 ea 02 XX Last administered on 01/31/17 02: 25; Admin Dose 1 EA; Start 01/15/17 at 02:00 Insulin Aspart 10 unit 10 unit ONCE PRN SC ELEVATED GLUCOSE Last administered on 01/21/17 02:15; Admin Dose 10 UNIT; Start 01/17/17 at 02:00 Sodium Chloride (1/2 NS) 1,000 ml @ 40 mls/hr Q24H IV Last administered on 01/18 21:32; Admin Dose 75 MLS/HR; Start 01/17/17 at 17:00; Status Future Hold Nitroglycerin (Nitroglycerin (Sl Tab) 0.4 Mg) 1 tab Q5M PRN SL ANGINA; Start at 21:30 Epoetin Sean (Epogen (Esrd)) 10,000 units MoWeFr@17 SC Last administered on 17:03; Admin Dose 10,000 UNITS; Start 01/19/17 at 17:00 Lubiprostone (Amitiza) 24 mcg BID PO Last administered on 02/02/17 09:47; Admin Dose 24 MCG; Start 01/21/17 at 21:00 Ondansetron HCl (Zofran Inj) 4 mg Q4H PRN IV NAUSEA AND/OR VOMITING Last administered on 01/28/17 13:32; Admin Dose 4 MG; Start 01/24/17 at 13:30 IV Flush (NS 10 ml) 10 ml PRN PRN IV IV PROTOCOL; Start 01/27/17 at 15:00 Multivitamins Therapeutic (Theragran) 1 tab DAILY PO Last administered on 09:47; Admin Dose 1 TAB; Start 01/30/17 at 09:00 Lactulose (Enulose) 30 gm Q6 GTB Last administered on 02/02/17 05:49; Admin Dose 30 GM; Start 01/29/17 at 20:00 Insulin Glargine (Lantus) 32 unit DAILY@20 SC Last administered on 02/01/17 20 :00; Admin Dose 32 UNIT; Start 01/31/17 at 20:00 Hydroxyzine HCl (Atarax) 10 mg Q6H PRN PO ITCHING Last administered on 22:00; Admin Dose 10 MG; Start 02/01/17 at 17:30 Triamcinolone Acetonide 1 applic 1 applic BID TOP Last administered on 12:37; Admin Dose 1 APPLIC; Start 02/01/17 at 21:00 Vancomycin HCl/ Sodium Chloride (Vancocin/NS) 250 ml @ 83.333 mls/ hr Q3H IVPB Last administered on 02/02/17 14:07; Admin Dose 83.333 MLS/HR; Start at 10:30; Stop 02/02/17 at 16:29 STUART STANLEY MD Feb 02, 2017 16:10
[2017-02-02] MEDS: EPOETIN 10000 UNITS/1 ML INJ (ESRD) SC SCH (17:33)
[2017-02-02] MEDS: INSULIN GLARGINE [LANtus] 3 ML PEN SC SCH (20:20)
[2017-02-02] MEDS: ATORVASTATIN 20 MG TAB PO SCH (20:35)
[2017-02-03] VITALS (18 sets, daily range): BP systolic 119–137; BP diastolic 62–80; PULSE 85–97; RESP 17–20
[2017-02-03] MEDS: ACCU-CHEK XX SCH (02:00)
[2017-02-03] MEDS: LACTULOSE 30ML CUP GTB SCH ×4 (06:00→17:54)
[2017-02-03] MEDS: INSULIN ASPART [NOVOLOG] 3 ML PEN SC SCH ×4 (08:34→21:00)
--- NOTE | 2017-02-03 08:54 | CONS ---
Date/Time of Note Date/Time of Note DATE: 02/03/17 TIME: 08:49 Assessment/Plan Assessment/Plan Chief Complaint/Hosp Course Impression: 1. Chronic kidney disease. He had a hemodialysis treatment yesterday . next dialysis will be tomorrow. I suspect he has chronic glomerulonephritis. I would like to do a kidney biopsy however I do not think he would be able to have a biopsy done at this time. He had a hemodialysis treatment this morning and 4 L of fluid was removed. He tolerated the procedure well. 2. 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 He has been treated for hepatitis C virus. 3. Hypertension 4. Hyperlipidemia 5. Anemia, yesterday he had epistaxis and received blood transfusion and platelet transfusion with vitamin K. 6. Congestive heart failure . Fluid is being removed with dialysis and he seems less fluid overloaded. His last chest x-ray was improved. 7. Obstructive sleep apnea 8. Altered level of consciousness/hepatic encephalopathy, his ammonia level is lower and he is more awake and alert. He seems more alert today and he does not have any asterixis. Continue current treatment for hepatic encephalopathy. 9. Rash possibly due to rifaximin. This was discontinued. Problems: Consultation Date/Type/Reason Admit Date/Time Jan 07, 2017 at 10:13 Initial Consult Date 01/19/17 Type of Consultation: renal Referring Provider: JENY MORA MD 24 HR Interval Summary Free Text/Dictation He just finished his hemodialysis treatment. 4 L of fluid were removed. He is awake and alert. He apparently was able to eat breakfast this morning. Constitutional: improved, no complaints Exam/Review of Systems Vital Signs Vitals Vital Signs Date Time Temp Pulse Resp B/P Pulse Ox O2 Delivery O2 Flow Rate FiO2 02/03/17 08:17 85 02/03/17 07:48 98.2 17 127/71 96 02/03/17 05:19 2.0 02/02/17 20:05 Nasal Cannula 02/01/17 02:18 31 Intake and Output 02/02/17 02/02/17 02/03/17 15:00 23:00 07:00 Intake Total 250 ml 500 ml 250 ml Output Total 200 ml 500 ml Balance 250 ml 300 ml -250 ml Exam He does not have asterixis. Constitutional: alert, frail, obese, oriented Respiratory: clear to auscultation, diminished breath sounds Cardiovascular: edema, regular rate and rhythm Musculoskeletal: nl extremities to inspection Results Result Diagram: 02/02/17 0612 02/02/17 0612 Results 24 hrs Laboratory Tests Test 02/02/17 12:29 02/02/17 17:30 02/02/17 20:09 02/03/17 08:23 Bedside Glucose 145 146 130 147 Medications Medications Current Medications Atorvastatin Calcium (Lipitor) 20 mg HS PO Last administered on 01/29/17 20:50 ; Admin Dose 20 MG; Start 01/07/17 at 21:00 Miscellaneous Information 1 ea NOTE XX ; Start 01/07/17 at 17:30 Glucose (Glutose) 15 gm Q15M PRN PO DECREASED GLUCOSE; Start 01/07/17 at 17:30 Glucose (Glutose) 22.5 gm Q15M PRN PO DECREASED GLUCOSE; Start 01/07/17 at 17: 30 Dextrose (D50w Syringe) 25 ml Q15M PRN IV DECREASED GLUCOSE; Start 01/07/17 at 17:30 Dextrose (D50w Syringe) 50 ml Q15M PRN IV DECREASED GLUCOSE; Start 01/07/17 at 17:30 Glucagon (Glucagen) 1 mg Q15M PRN IM DECREASED GLUCOSE; Start 01/07/17 at 17:30 Glucose (Glutose) 15 gm Q15M PRN BUCCAL DECREASED GLUCOSE; Start 01/07/17 at 17 :30 Nifedipine (Procardia Xl) 30 mg DAILY PO Last administered on 01/31/17 08:35; Admin Dose 30 MG; Start 01/08/17 at 09:00 Docusate Sodium (Colace) 100 mg BID PRN PO CONSTIPATION Last administered on 11:56; Admin Dose 100 MG; Start 01/08/17 at 14:00 Acetaminophen (Tylenol Tab) 500 mg Q6H PRN PO PAIN AND OR ELEVATED TEMP Last administered on 02/01/17 09:30; Admin Dose 500 MG; Start 01/08/17 at 15:30 Diagnostic Test (Pha) (Accu-Chek) 1 ea 02 XX Last administered on 01/31/17 02: 25; Admin Dose 1 EA; Start 01/15/17 at 02:00 Insulin Aspart 10 unit 10 unit ONCE PRN SC ELEVATED GLUCOSE Last administered on 01/21/17 02:15; Admin Dose 10 UNIT; Start 01/17/17 at 02:00 Sodium Chloride (1/2 NS) 1,000 ml @ 40 mls/hr Q24H IV Last administered on 01/18 21:32; Admin Dose 75 MLS/HR; Start 01/17/17 at 17:00; Status Future Hold Nitroglycerin (Nitroglycerin (Sl Tab) 0.4 Mg) 1 tab Q5M PRN SL ANGINA; Start at 21:30 Epoetin Sean (Epogen (Esrd)) 10,000 units MoWeFr@17 SC Last administered on 17:33; Admin Dose 10,000 UNITS; Start 01/19/17 at 17:00 Lubiprostone (Amitiza) 24 mcg BID PO Last administered on 02/02/17 20:34; Admin Dose 24 MCG; Start 01/21/17 at 21:00 Ondansetron HCl (Zofran Inj) 4 mg Q4H PRN IV NAUSEA AND/OR VOMITING Last administered on 01/28/17 13:32; Admin Dose 4 MG; Start 01/24/17 at 13:30 IV Flush (NS 10 ml) 10 ml PRN PRN IV IV PROTOCOL; Start 01/27/17 at 15:00 Multivitamins Therapeutic (Theragran) 1 tab DAILY PO Last administered on 09:47; Admin Dose 1 TAB; Start 01/30/17 at 09:00 Lactulose (Enulose) 30 gm Q6 GTB Last administered on 02/02/17 05:49; Admin Dose 30 GM; Start 01/29/17 at 20:00 Insulin Glargine (Lantus) 32 unit DAILY@20 SC Last administered on 02/02/17 20 :20; Admin Dose 32 UNIT; Start 01/31/17 at 20:00 Hydroxyzine HCl (Atarax) 10 mg Q6H PRN PO ITCHING Last administered on 22:00; Admin Dose 10 MG; Start 02/01/17 at 17:30 Triamcinolone Acetonide (Kenalog 0.1% Oint) 1 applic BID TOP Last administered on 02/02/17 12:37; Admin Dose 1 APPLIC; Start 02/01/17 at 21:00 ANA MELENDEZ MD Feb 03, 2017 08:54
[2017-02-03] MEDS: ALBUTEROL/IPRATROPIUM (NEB) 3 ML AMP HHN SCH ×4 (09:30→20:37)
[2017-02-03] MEDS: LUBIPROSTONE 24 MCG CAP PO SCH ×2 (09:38→21:13)
[2017-02-03] MEDS: MULTIVITAMINS THERAPEUTIC TAB PO SCH (09:39)
[2017-02-03] MEDS: NIFEdipine (XL) 30 MG TAB PO SCH (09:39)
[2017-02-03] MEDS: TRIAMCINOLONE ACET 0.1% 15 GM OINT TOP SCH ×2 (09:41→21:00)
[2017-02-03] MEDS: hydrOXYzine HCL 10 MG TAB PO PRN ×2 (09:44→23:22)
--- NOTE | 2017-02-03 11:15 | PN ---
DATE: 01/22/2017 SUBJECTIVE DATA: The patient continues to have significant shortness of breath, very poor sleep. Due for Permcath insertion for hemodialysis today. OBJECTIVE DATA: GENERAL: On physical exam the patient is lethargic. VITAL SIGNS: Temperature 98.2, blood pressure is 111/59, O2 saturation is 97 percent. HEENT: Head is normocephalic. Mild cyanosis. RESPIRATORY: Decreased breath sounds at the bases. CARDIAC: S1, S2. No gallops. ABDOMEN: Obese. Nontender. EXTREMITIES: There is 3+ edema. LABORATORY AND DIAGNOSTIC DATA: WBC count is 13.1, hematocrit 26.3, platelet count is 87,000. BUN 113, creatinine 3.7, glucose 270. PT/INR 1.27. IMPRESSION: 1. Congestive failure. Combination of asthmatic and respiratory component. Complicated by morbid obesity and obstructive sleep apnea. 2. End-stage liver disease. 3. Chronic kidney disease, worsening. Negative fluid balance. PLAN: Dr. Castro's recommendations noted. Plans are to have vascular surgeon place Permacath for hemodialysis. The patient has been more confused. Will repeat ammonia levels. Increase the dose of lactulose. Also, the patient has not had a bowel movement for the last 3 days. Will give him one Fleets enema today. Repeat labs in the morning. Discussed at length with the patient's family at bedside. Dictated By: Ivan Brice MD /[email or web address] /Document#: [id number]
--- NOTE | 2017-02-03 11:25 | CONS ---
Date/Time of Note Date/Time of Note DATE: 02/03/17 TIME: 11:24 Consult Date/Type/Reason Admit Date/Time Jan 07, 2017 at 10:13 Initial Consult Date 01/09/17 Type of Consultation: Pulmonary Ordering Provider: JENY MORA MD Subjective Epistaxis noted status post PRBCs. Objective Vital Signs Date Time Temp Pulse Resp B/P Pulse Ox O2 Delivery O2 Flow Rate FiO2 02/03/17 11:14 98.3 83 18 136/66 94 02/03/17 09:30 2.0 02/03/17 09:30 Nasal Cannula 02/01/17 02:18 31 Intake and Output 02/02/17 02/02/17 02/03/17 15:00 23:00 07:00 Intake Total 250 ml 500 ml 250 ml Output Total 200 ml 500 ml Balance 250 ml 300 ml -250 ml Exam GENERAL: Morbidly obese gentleman somnolent but arousable. VITAL SIGNS: per chart NECK: Supple. No JVD or lymphadenopathy. CARDIAC EXAM: S1, S2. No added sounds or murmurs. CHEST: clear bilaterally, No added sounds, rales or wheezes ABDOMEN: Soft, nontender. No guarding or rebound. EXTREMITIES: No cyanosis, clubbing or edema +2 NEUROLOGIC: Significant neuromuscular weakness Results/Medications Result Diagram: 02/02/17 0612 02/02/17 06 Results 24 hrs Laboratory Tests Test 02/02/17 12:29 02/02/17 17:30 02/02/17 20:09 02/03/17 08:23 Bedside Glucose 145 146 130 147 Medications Current Medications Atorvastatin Calcium (Lipitor) 20 mg HS PO Last administered on 01/29/17t 20:50 ; Admin Dose 20 MG; Start 01/07/17 at 21:00 Miscellaneous Information 1 ea NOTE XX ; Start 01/07/17 at 17:30 Glucose (Glutose) 15 gm Q15M PRN PO DECREASED GLUCOSE; Start 01/07/17 at 17:30 Glucose (Glutose) 22.5 gm Q15M PRN PO DECREASED GLUCOSE; Start 01/07/17 at 17: 30 Dextrose (D50w Syringe) 25 ml Q15M PRN IV DECREASED GLUCOSE; Start 01/07/17 at 17:30 Dextrose (D50w Syringe) 50 ml Q15M PRN IV DECREASED GLUCOSE; Start 01/07/17 at 17:30 Glucagon (Glucagen) 1 mg Q15M PRN IM DECREASED GLUCOSE; Start 01/07/17 at 17:30 Glucose (Glutose) 15 gm Q15M PRN BUCCAL DECREASED GLUCOSE; Start 01/07/17 at 17 :30 Nifedipine (Procardia Xl) 30 mg DAILY PO Last administered on 02/03/17 09:39; Admin Dose 30 MG; Start 01/08/17 at 09:00 Docusate Sodium (Colace) 100 mg BID PRN PO CONSTIPATION Last administered on 11:56; Admin Dose 100 MG; Start 01/08/17 at 14:00 Acetaminophen (Tylenol Tab) 500 mg Q6H PRN PO PAIN AND OR ELEVATED TEMP Last administered on 02/01/17 09:30; Admin Dose 500 MG; Start 01/08/17 at 15:30 Diagnostic Test (Pha) (Accu-Chek) 1 ea 02 XX Last administered on 01/31/17 02: 25; Admin Dose 1 EA; Start 01/15/17 at 02:00 Insulin Aspart 10 unit 10 unit ONCE PRN SC ELEVATED GLUCOSE Last administered on 01/21/17 02:15; Admin Dose 10 UNIT; Start 01/17/17 at 02:00 Sodium Chloride (1/2 NS) 1,000 ml @ 40 mls/hr Q24H IV Last administered on 01/18 21:32; Admin Dose 75 MLS/HR; Start 01/17/17 at 17:00; Status Future Hold Nitroglycerin (Nitroglycerin (Sl Tab) 0.4 Mg) 1 tab Q5M PRN SL ANGINA; Start at 21:30 Epoetin Sean (Epogen (Esrd)) 10,000 units MoWeFr@17 SC Last administered on 17:33; Admin Dose 10,000 UNITS; Start 01/19/17 at 17:00 Lubiprostone (Amitiza) 24 mcg BID PO Last administered on 02/03/17 09:38; Admin Dose 24 MCG; Start 01/21/17 at 21:00 Ondansetron HCl (Zofran Inj) 4 mg Q4H PRN IV NAUSEA AND/OR VOMITING Last administered on 01/28/17 13:32; Admin Dose 4 MG; Start 01/24/17 at 13:30 IV Flush (NS 10 ml) 10 ml PRN PRN IV IV PROTOCOL; Start 01/27/17 at 15:00 Multivitamins Therapeutic (Theragran) 1 tab DAILY PO Last administered on 09:39; Admin Dose 1 TAB; Start 01/30/17 at 09:00 Lactulose (Enulose) 30 gm Q6 GTB Last administered on 02/02/17 05:49; Admin Dose 30 GM; Start 01/29/17 at 20:00 Insulin Glargine (Lantus) 32 unit DAILY@20 SC Last administered on 02/02/17 20 :20; Admin Dose 32 UNIT; Start 01/31/17 at 20:00 Hydroxyzine HCl (Atarax) 10 mg Q6H PRN PO ITCHING Last administered on 09:44; Admin Dose 10 MG; Start 02/01/17 at 17:30 Triamcinolone Acetonide (Kenalog 0.1% Oint) 1 applic BID TOP Last administered on 02/03/17 09:41; Admin Dose 1 APPLIC; Start 02/01/17 at 21:00 Miscellaneous Information (*Rx Drug Level Order Reminder*) VANCOMYCIN RANDOM ON 01/11... ONCE ONCE XX ; Start 02/04/17 at 05:00; Stop 02/04/17 at 05:01 Assessment/Plan Chief Complaint/Hosp Course IMP: 1. Dyspnea--likely multifactorial, component of obesity pulmonary edema cirrhosis obstructive sleep apnea. Trial of BiPAP. 2. 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 YEVGENIY 4. CKD now on hemodialysis 5. Encephalopathy toxic metabolic. Not secondary to obstructive sleep apnea as patient does not have chronic CO2 retention on arterial blood gas. 6. Anemia likely secondary to chronic disease monitor H&H following epistaxis RECS: 1. BD's 2. Aspiration precautions 3. Encourage out of bed 4. Hemodialysis per nephrology 5. Continue rifaximin and lactulose Overall prognosis guarded. Problems: GUERITA RESENDIZ MD, [facility] Feb 03, 2017 11:25
--- NOTE | 2017-02-03 12:07 | RADRPT ---
PROCEDURE: XR Chest. CLINICAL INDICATION: chf TECHNIQUE: Single frontal view of the chest was obtained COMPARISON: Chest x-ray 02/01/2017 FINDINGS: The right Perma-Cath appear stable position, terminating in the right atrium. The left PICC line is stable position, terminating in the mid to lower superior vena cava. There are persistent low lung volumes. The cardiac silhouette remains moderately enlarged. There are atherosclerotic calcifications of the aortic arch. There is increased pulmonary vascular congestion compared to prior study. No pneumothorax or significant pleural effusion is seen. There are degenerative changes of the visualized spine. IMPRESSION: 1. Moderate cardiomegaly with interval increase in pulmonary vascular congestion. 2. Thoracic aortic atherosclerotic disease. RPTAT: PP Physician Stanley Date Time Electronically viewed and signed by Physician Stanley on 02/03/2017 12:07 /
[2017-02-03] MEDS ORDERED: HYDROCODONE/APAP (5/325) TAB PO ONE (16:30)
--- NOTE | 2017-02-03 19:53 | CONS ---
Date/Time of Note Date/Time of Note DATE: 02/03/17 TIME: 19:51 Assessment/Plan Assessment/Plan Chief Complaint/Hosp Course 61-year-old male admitted for shortness of breath. Patient is a history of hepatitis C cirrhosis of liver, morbid obesity obstructive sleep apnea, diabetes mellitus and hypertension. Recent was brought to the emergency room for abdominal distention and shortness of breath. He was slightly nauseous. No GI bleeding no chest pain no or [employer] SAL[employer] problem no fever no chills. Problems: Additional Assessment/Plan 1. Shortness of breath multifactorial, much better 2. Morbid obesity, patient lost 22 pounds 3. Cirrhosis of liver with portal hypertension 4. Mild ascites 5. Diabetes 6. Hypertension 7. Renal failure 8. Anasarca, almost to resolved 11. Severe constipation, better 12. Profound weakness, second to dialysis 13. Encephalopathy, much better, and ammonia is back to normal 14 epistaxis, resolved 15. Sleep apnea Plan Continue with the lactulose and dialysis Rifaximin has been stopped Physical therapy and ambulate patient Consultation Date/Type/Reason Admit Date/Time Jan 07, 2017 at 10:13 Initial Consult Date 01/09/17 Type of Consultation: Pulmonary Referring Provider: JENY MORA MD 24 HR Interval Summary Free Text/Dictation Profound weakness Exam/Review of Systems Vital Signs Vitals Vital Signs Date Time Temp Pulse Resp B/P Pulse Ox O2 Delivery O2 Flow Rate FiO2 02/03/17 19:18 98.6 98 20 131/68 97 02/03/17 18:20 3.0 02/03/17 18:16 Nasal Cannula 02/01/17 02:18 31 Intake and Output 02/02/17 02/02/17 02/03/17 15:00 23:00 07:00 Intake Total 250 ml 500 ml 250 ml Output Total 200 ml 500 ml Balance 250 ml 300 ml -250 ml Exam Constitutional: alert, oriented, well developed Psych: nl mood/affect, no complaints Head: atraumatic, normocephalic Eyes: EOMI, PERRL, nl conjunctiva, nl lids, nl sclera ENMT: nl external ears & nose, nl lips & teeth, nl nasal mucosa & septum Neck: non-tender, supple Respiratory: clear to auscultation, normal air movement Cardiovascular: nl pulses, regular rate and rhythm Gastrointestinal: nl liver, spleen, non-tender, soft Musculoskeletal: nl extremities to inspection, nl gait and stance Extremities: normal pulses 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: [employer] II-XII intact, nl mental status, nl speech, nl strength Skin: nl turgor, No rash or lesions Lymph: nl lymph nodes Results Result Diagram: 02/02/17 0612 02/02/17 0612 Results 24 hrs Laboratory Tests Test 02/02/17 20:09 02/03/17 08:23 02/03/17 11:44 02/03/17 17:31 Bedside Glucose 130 147 160 150 Medications Medications Current Medications Atorvastatin Calcium (Lipitor) 20 mg HS PO Last administered on 01/29/17 20:50 ; Admin Dose 20 MG; Start 01/07/17 at 21:00 Miscellaneous Information 1 ea NOTE XX ; Start 01/07/17 at 17:30 Glucose (Glutose) 15 gm Q15M PRN PO DECREASED GLUCOSE; Start 01/07/17 at 17:30 Glucose (Glutose) 22.5 gm Q15M PRN PO DECREASED GLUCOSE; Start 01/07/17 at 17: 30 Dextrose (D50w Syringe) 25 ml Q15M PRN IV DECREASED GLUCOSE; Start 01/07/17 at 17:30 Dextrose (D50w Syringe) 50 ml Q15M PRN IV DECREASED GLUCOSE; Start 01/07/17 at 17:30 Glucagon (Glucagen) 1 mg Q15M PRN IM DECREASED GLUCOSE; Start 01/07/17 at 17:30 Glucose (Glutose) 15 gm Q15M PRN BUCCAL DECREASED GLUCOSE; Start 01/07/17 at 17 :30 Nifedipine (Procardia Xl) 30 mg DAILY PO Last administered on 02/03/17 09:39; Admin Dose 30 MG; Start 01/08/17 at 09:00 Docusate Sodium (Colace) 100 mg BID PRN PO CONSTIPATION Last administered on 11:56; Admin Dose 100 MG; Start 01/08/17 at 14:00 Acetaminophen (Tylenol Tab) 500 mg Q6H PRN PO PAIN AND OR ELEVATED TEMP Last administered on 02/01/17 09:30; Admin Dose 500 MG; Start 01/08/17 at 15:30 Diagnostic Test (Pha) (Accu-Chek) 1 ea 02 XX Last administered on 01/31/17 02: 25; Admin Dose 1 EA; Start 01/15/17 at 02:00 Insulin Aspart 10 unit 10 unit ONCE PRN SC ELEVATED GLUCOSE Last administered on 01/21/17 02:15; Admin Dose 10 UNIT; Start 01/17/17 at 02:00 Sodium Chloride (1/2 NS) 1,000 ml @ 40 mls/hr Q24H IV Last administered on 01/18 21:32; Admin Dose 75 MLS/HR; Start 01/17/17 at 17:00; Status Future Hold Nitroglycerin (Nitroglycerin (Sl Tab) 0.4 Mg) 1 tab Q5M PRN SL ANGINA; Start at 21:30 Epoetin Sean (Epogen (Esrd)) 10,000 units MoWeFr@17 SC Last administered on 17:33; Admin Dose 10,000 UNITS; Start 01/19/17 at 17:00 Lubiprostone (Amitiza) 24 mcg BID PO Last administered on 02/03/17 09:38; Admin Dose 24 MCG; Start 01/21/17 at 21:00 Ondansetron HCl (Zofran Inj) 4 mg Q4H PRN IV NAUSEA AND/OR VOMITING Last administered on 01/28/17 13:32; Admin Dose 4 MG; Start 01/24/17 at 13:30 IV Flush (NS 10 ml) 10 ml PRN PRN IV IV PROTOCOL; Start 01/27/17 at 15:00 Multivitamins Therapeutic (Theragran) 1 tab DAILY PO Last administered on 09:39; Admin Dose 1 TAB; Start 01/30/17 at 09:00 Lactulose (Enulose) 30 gm Q6 GTB Last administered on 02/03/17 17:54; Admin Dose 30 GM; Start 01/29/17 at 20:00 Insulin Glargine (Lantus) 32 unit DAILY@20 SC Last administered on 02/02/17 20 :20; Admin Dose 32 UNIT; Start 01/31/17 at 20:00 Hydroxyzine HCl (Atarax) 10 mg Q6H PRN PO ITCHING Last administered on 09:44; Admin Dose 10 MG; Start 02/01/17 at 17:30 Triamcinolone Acetonide (Kenalog 0.1% Oint) 1 applic BID TOP Last administered on 02/03/17t 09:41; Admin Dose 1 APPLIC; Start 02/01/17 at 21:00 Miscellaneous Information (*Rx Drug Level Order Reminder*) VANCOMYCIN RANDOM ON 01/11... ONCE ONCE XX ; Start 02/04/17 at 05:00; Stop 02/04/17 at 05:01 STUART STANLEY MD Feb 03, 2017 19:53
[2017-02-03] MEDS: ATORVASTATIN 20 MG TAB PO SCH (21:14)
[2017-02-03] MEDS: INSULIN GLARGINE [LANtus] 3 ML PEN SC SCH (21:50)
--- NOTE | 2017-02-03 23:23 | PN ---
Date/Time of Note Date/Time of Note DATE: 02/03/17 TIME: 23:13 Assessment/Plan Lines/Catheters IV Catheter Type (from Nrs): PICC Line Sykes in Place (from Nrsg): Yes Assessment/Plan Chief Complaint/Hosp Course 1. [place] obesity: BMI 48 -encourage weight loss -nutrition optimization -eventual bariatric surgery when medically stable 2. CHF: dyspnea with pulmonary congestion; dyspnea improved -continue diuresis per cards/renal -medical optimization -HD 3. Elevated troponin: renal failure vs NSTEMI; invasive/stress testing not recommended at this time per cards -trend and monitor 4. Chronic kidney disease: HD -per renal 5. Diabetes: blood sugar labile; on long acting and short acting insulin -optimize blood sugar control 6. Hypertension: controlled -cont. antihypertensives 7. YEVGENIY: morbid obesity, dyspnea improved after HD -cpap 8. Leukocytosis: on steroids; (repeat blood cx: no growth) vs. dvt; no fevers; ascitic fluid (low PMN- not the source per ID); cultures no growth, wbc improving -abx per sensitivity 9. Dyspnea: multifactorial chf+ morbid obesity + ascites + YEVGENIY; improved; s/p dialysis -supportive -as above 10. Hyponatremia now with hypernatremia: s/p dialysis; improving - judicious fluid management 11. Anemia: CKD +/- chronic disease; doubt active bleed; h/h improved -monitor -transfuse as needed 12. Hypothyroidism; low tsh/t4 -medical optimization 13. Hypocalcemia: likely 2/2 poor nutrition + hypothyroid -optimize lytes -as above -medical optimization 14. Hypoalbuminemia: liver disease +/- malnutrition, -replete -nutrition optimization 15. Hepatic encephalopathy: Hepatitis C history, on treatment; ammonia levels improved; more awake and oriented -per gi/hepatology 16. Thrombocytosis: 2/2 liver disease; improved -bleeding precautions -supportive 17. Rash: ?drug reaction -abx changed per ID 18. Hypokalemia -replete and monitor Patient seen and examined in collaboration with Dr. Marcelino Morales Problems: Subjective 24 Hr Interval Summary Tired s/p dialysis. Sob improved.headache. No c/o sz, dizziness, cp, palpitations, n/v/d no fevers, chills.. Exam/Review of Systems Vital Signs Vitals Vital Signs Date Time Temp Pulse Resp B/P Pulse Ox O2 Delivery O2 Flow Rate FiO2 02/03/17 20:39 3.0 02/03/17 20:39 90 20 94 Nasal Cannula 02/03/17 19:18 98.6 131/68 02/01/17 02:18 31 Intake and Output 02/02/17 02/02/17 02/03/17 15:00 23:00 07:00 Intake Total 250 ml 500 ml 250 ml Output Total 200 ml 500 ml Balance 250 ml 300 ml -250 ml Exam Free Text/Dictation Constitutional: awake, obese, oriented Psych: nl mood/affect, no complaints Head: atraumatic, normocephalic Eyes: nl conjunctiva, nl lids ENMT: mucosa pink and moist Neck: non-tender, supple; right IJ Respiratory: diminished breath sounds; no use of accessory muscles Cardiovascular: regular rate and rhythm Gastrointestinal: distended (mod), non-tender, soft Genitourinary - Male: nl penis, nl scrotum, No CVA tenderness; sykes, clear urine output Musculoskeletal: nl extremities to inspection Extremities: edema (ble 3+), normal pulses 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: no nl mental status, nl speech Skin: pinpoint rash torso, upper arms and back Results Result Diagram: 02/02/1761102/02/17611 ERLINDA VALLE NP Feb 03, 2017 23:23
[2017-02-04] MEDS: LACTULOSE 30ML CUP GTB SCH ×5 (00:36→23:59)
[2017-02-04] MEDS: ACCU-CHEK XX SCH (01:01)
--- NOTE | 2017-02-04 04:52 | PN ---
DATE: SUBJECTIVE DATA: Patient presently getting hemodialysis, lethargic. No cough. OBJECTIVE DATA: GENERAL: The patient is in mild respiratory distress. VITAL SIGNS: Blood pressure 142/76, pulse ox 91 percent on room air. HEENT: Head normocephalic. Mild pallor of the . NECK: Supple. No thyromegaly, bruits, or lymphadenopathy. CHEST: Decreased breath sounds at the bases. A few wheezes. HEART: S1, S2. No definite gallops. EXTREMITIES: There is 3+ edema. Homans sign is negative. Intake and output: 480 in; output is 1900. LABORATORY: WBC count 13.1, hematocrit 27.2, platelet count of 88,000. Sodium 130, potassium 4. BUN 119, creatinine 3.65. IMPRESSION: 1. Cirrhosis with portal hypertension secondary to hepatitis C. 2. Chronic kidney disease with acute exacerbation. 3. Hypertension. 4. Diabetes mellitus type 2. 5. Obstructive sleep apnea. 6. Anemia. PLAN: Will continue hemodialysis. Continue close monitoring of fluid management. Follow recommendation by Dr Castro. Dictated By: Ivan Brice MD /marlyn/caridad /Document#: [id number]
--- NOTE | 2017-02-04 05:42 | PN ---
DATE: SUBJECTIVE DATA: The patient is more awake and responsive, responding appropriately to questions. OBJECTIVE DATA: Temperature 97.9, blood pressure 131/70, O2 sat 98 percent on 5 L nasal cannula. Chest clinically clear anteriorly. Heart, S1, S2. No definite gallops. Abdomen obese and nontender. No hepatosplenomegaly. Extremities 1 plus edema. Homans negative. The patient has not had a BM today. Did receive one dose of [place] last night. LABORATORY AND DIAGNOSTIC DATA: WBC count 8.5, hematocrit 27.3, platelet count 71,000. Ammonia level 70. Potassium 3.6, BUN 42, creatinine 3.29, glucose 161. IMPRESSION: 1. Hepatic encephalopathy, slowly improving. 2. Cirrhosis with portal hypertension. History of hep C, with no evidence of viral infection at this time. 3. Obstructive sleep apnea. 4. Morbid obesity. 5. Diabetes mellitus type 2. 6. Acute on chronic renal failure, improving slowly with dialysis. PLAN: Will hold Kenyon. Start the patient on lactulose enema. Recheck renal functions and electrolytes in a.m. Case discussed Dr. Castro and Dr. Arteaga. Dr. Heath's rheumatology consultation greatly appreciated. Discussed with patient's family regarding patient's condition. Will continue physical therapy. Check daily weights. Dictated By: Ivan Brice MD /[email or web address] /Document#: [id number]
[2017-02-04 06:41] LABS: ABNORMAL IP MESSAGE 1; BASOPHILS % 0.4 % (0.0-2.0); EOSINOPHILS # 0.2 10^3/ul (0.0-0.5); EOSINOPHILS % 4.6 % (0.0-7.0); HEMATOCRIT 28.4 % (42.0-52.0); HEMOGLOBIN 8.7 g/dl (14.0-18.0); LYMPHOCYTES # 0.8 10^3/ul (0.8-2.9); LYMPHOCYTES % 15.1 % (15.0-51.0); MEAN CORPUSCULAR HEMOGLOBIN 26.4 pg (29.0-33.0); MEAN CORPUSCULAR HGB CONC 30.6 g/dl (32.0-37.0); MEAN CORPUSCULAR VOLUME 86.3 fl (82.0-101.0); MONOCYTE # 0.5 10^3/ul (0.3-0.9); MONOCYTES % 9.3 % (0.0-11.0); NEUTROPHIL # 3.6 10^3/ul (1.6-7.5); NEUTROPHILS % 70.2 % (39.0-77.0); PLATELET COUNT 77 10^3/UL (140-415); POSITIVE DIFF @See below; RED BLOOD COUNT 3.29 10^6/ul (4.70-6.10); WHITE BLOOD COUNT 5.2 10^3/ul (4.8-10.8)
[2017-02-04 07:00] LABS: ALBUMIN 2.5 g/dl (3.3-4.9); ALBUMIN/GLOBULIN RATIO 0.55; BILIRUBIN,INDIRECT 0.5 mg/dl (0-1.1); BILIRUBIN,TOTAL 0.5 mg/dl (0.2-1.3); CALCIUM 7.9 mg/dl (8.4-10.2); CREATININE 5.14 mg/dl (0.61-1.24); MAGNESIUM 2.1 mg/dl (1.7-2.5); PHOSPHORUS 5.3 mg/dl (2.5-4.9); POTASSIUM 3.6 mmol/L (3.5-5.1)
[2017-02-04 07:23] VITALS: BP 114/57; RESP 20
[2017-02-04] MEDS: NIFEdipine (XL) 30 MG TAB PO SCH (07:40)
[2017-02-04] MEDS: INSULIN ASPART [NOVOLOG] 3 ML PEN SC SCH ×4 (08:27→20:18)
[2017-02-04] MEDS: LUBIPROSTONE 24 MCG CAP PO SCH ×2 (08:32→20:20)
[2017-02-04] MEDS: MULTIVITAMINS THERAPEUTIC TAB PO SCH (08:32)
[2017-02-04] MEDS: ACETAMINOPHEN 500 MG TAB PO PRN (08:32)
[2017-02-04] MEDS: TRIAMCINOLONE ACET 0.1% 15 GM OINT TOP SCH ×2 (08:34→20:21)
--- NOTE | 2017-02-04 08:58 | CONS ---
Date/Time of Note Date/Time of Note DATE: 02/04/17 TIME: 08:56 Assessment/Plan Assessment/Plan Chief Complaint/Hosp Course 1)Liver cirrhosis with portal HTN due to Hep C to repeat ammonia level 01/21 - ammonia level is mildly elevated at 57 consider lacutlose 01/26 - pt getting lactulose due to rising ammonia level but so far no BM's 01/27 - pt had one BM yesterday only will re-check ammonia level consider increasing lacutulose dose, pt also on rifaximin 01/29 - ammonia level is decreasing 02/04 - will repeat Hep C RNA 2) CHF +/- pneumonia unable to tolerate lasix with worsening renal function 01/21 - in light of MSSA in blood and no open wounds or chronic IV in place, concern would be lung may be the portal of entry to start zosyn to cover for lung infection as well as the MSSA CXR does not show a lobar infiltrate 01/22 - continue with zosyn 01/23 - beta d glucan to look for invasive fungal disease was negative continue with zosyn 01/24 - stable on zosyn wbc is back to normal 01/26 - stable, WBC minimal elevated pt would likely benefit from a blood tx 01/29 - pt has completed his course for pneumonia d/c zosyn and start ceftriaxone for continued treatment of his MSSA bacteremia 01/30 - breathing is stable off zosyn and only on ceftriaxone 02/02 - allergic drug reaction so will stop ceftriaxone and go to iv vanco 3) r/o SBP pt to get paracentesis later today cefotaxime was started by the primary if fevers not improving will broaden the coverage 01/20 - pt to get paracentesis today continue with cefotaxime 01/21 - low number of PMN's in ascitic fluid, this in not the source for his MSSA d/c cefotaxime 4) new onset fever with leukocytosis pt has been on steroids but this does not explain the new fever the potential sources would include, ascitic fluid, lung urinalysis does not suggest an infection will order beta d glucan, aspergillus galactomannan, procalcitonin in a.m. will order LE dopplers to make sure no DVT has developed if cefotaxime does not improve his fever, wbc then will broaden coverage to include lung infection 01/20 - await paracentesis and a.m. labs vanco added due to GPC in blood cx fevers appear improved 01/21 - MSSA is present in blood and urine cx u/a did not show signs of infection and so the urine may only be seeded from the bacteremia will order repeat u/a at this time d/c vanco/cefotaxime and start zosyn since there is no skin breakdown or ulcers the lung becomes a more likely portal of entry 01/22 - fevers resolved continue with zosyn for bacteremia and possible pneumonia 5) MSSA bacteremia 01/20 - no central line in place, IV sites look ok await ID to see if true infection or a contaminant vanco started, will order repeat blood cx now 01/21 - true infection of blood with MSSA repeat blood cx from 01/20 is NGTD d/c vanco/cefotaxime and start zosyn check u/a 01/22 - MSSA in one set from 01/20 repeat blood cx today pt needs dialysis and likely he is no longer bacteremic so ok for dialysis line but if pt remains bacteremic it will need to be replaced 01/23 - pt to get dialysis line today and likely HD afterwards continue with zosyn 01/24 - repeat blood cx from 01/22 remain NGTD wbc is back to normal anticipate a 4 week course of treatment for this, will eventually change zosyn to ceftriaxone 01/26 - consider blood tx to help with effectiveness of antibiotics 01/27 - repeat blood cx remain neg from 01/22 and 01/25 01/29 - changed to ceftriaxone and continue thru 02/16/1701/30 - tolerating ceftriaxone, continue thru 02/16/1702/02 - due to rash will change ceftriaxone to vanco and continue vanco thru 02/04 - pt tolerating vanco 6) anemia 01/26 - when pt does have a BM will get hemoccult to see if pt will need prophylaxis for SBP consider blood tx 7) allergic drug reaction (02/02/17) likely culprits would be rifaximin, prior zosyn or current ceftriaxone d/c ceftriaxone and rifaximin and start IV vanco 02/04 - rash is improved Problems: Consultation Date/Type/Reason Admit Date/Time Jan 07, 2017 at 10:13 Initial Consult Date 01/19/17 Type of Consultation: ID Referring Provider: JENY MORA MD 24 HR Interval Summary Free Text/Dictation no new problems pt awake and responsive Exam/Review of Systems Vital Signs Vitals Vital Signs Date Time Temp Pulse Resp B/P Pulse Ox O2 Delivery O2 Flow Rate FiO2 02/04/17 07:23 99.2 89 20 114/57 96 02/04/17 05:28 3.0 02/03/17 20:39 Nasal Cannula 02/01/17 02:18 31 Intake and Output 02/03/17 02/03/17 02/04/17 14:59 22:59 06:59 Intake Total 500 ml Output Total 4500 ml Balance -4000 ml Exam Constitutional: alert Head: normocephalic ENMT: mucosa pink and moist Respiratory: clear to auscultation Cardiovascular: regular rate and rhythm Gastrointestinal: non-tender, soft Results Result Diagram: 02/04/1762002/04/17 0621 Results 24 hrs Laboratory Tests Test 02/03/17 11:44 02/03/17 17:31 02/03/17 21:11 02/04/17 06:21 Bedside Glucose 160 150 163 White Blood Count 5.2 # Red Blood Count 3.29 L Hemoglobin 8.7 L Hematocrit 28.4 L Mean Corpuscular Volume 86.3 Mean Corpuscular Hemoglobin 26.4 L Mean Corpuscular Hemoglobin Concent 30.6 L Red Cell Distribution Width 19.0 H Platelet Count 77 L Mean Platelet Volume 12.0 H Neutrophils % 70.2 Lymphocytes % 15.1 Monocytes % 9.3 Eosinophils % 4.6 Basophils % 0.4 Nucleated Red Blood Cells % 0.0 Neutrophils # 3.6 Lymphocytes # 0.8 Monocytes # 0.5 Eosinophils # 0.2 Basophils # 0.0 Nucleated Red Blood Cells # 0.0 Sodium Level 137 Potassium Level 3.6 Chloride Level 98 Carbon Dioxide Level 29 Anion Gap 14 Blood Urea Nitrogen 26 H Creatinine 5.14 H Glucose Level 137 Calcium Level 7.9 L Phosphorus Level 5.3 H Magnesium Level 2.1 Total Bilirubin 0.5 Direct Bilirubin 0.00 Indirect Bilirubin 0.5 Aspartate Amino Transf (AST/SGOT) 32 Alanine Aminotransferase (ALT/SGPT) 44 Alkaline Phosphatase 108 Total Protein 7.0 Albumin 2.5 L Globulin 4.50 H Albumin/Globulin Ratio 0.55 Random Vancomycin Level 20.6 Test 02/04/17 07:56 Bedside Glucose 143 Medications Medications Current Medications Atorvastatin Calcium (Lipitor) 20 mg HS PO Last administered on 02/03/17 21:14 ; Admin Dose 20 MG; Start 01/07/17 at 21:00 Miscellaneous Information 1 ea NOTE XX ; Start 01/07/17 at 17:30 Glucose (Glutose) 15 gm Q15M PRN PO DECREASED GLUCOSE; Start 01/07/17 at 17:30 Glucose (Glutose) 22.5 gm Q15M PRN PO DECREASED GLUCOSE; Start 01/07/17 at 17: 30 Dextrose (D50w Syringe) 25 ml Q15M PRN IV DECREASED GLUCOSE; Start 01/07/17 at 17:30 Dextrose (D50w Syringe) 50 ml Q15M PRN IV DECREASED GLUCOSE; Start 01/07/17 at 17:30 Glucagon (Glucagen) 1 mg Q15M PRN IM DECREASED GLUCOSE; Start 01/07/17 at 17:30 Glucose (Glutose) 15 gm Q15M PRN BUCCAL DECREASED GLUCOSE; Start 01/07/17 at 17 :30 Nifedipine (Procardia Xl) 30 mg DAILY PO Last administered on 02/03/17 09:39; Admin Dose 30 MG; Start 01/08/17 at 09:00 Docusate Sodium (Colace) 100 mg BID PRN PO CONSTIPATION Last administered on 11:56; Admin Dose 100 MG; Start 01/08/17 at 14:00 Acetaminophen (Tylenol Tab) 500 mg Q6H PRN PO PAIN AND OR ELEVATED TEMP Last administered on 02/04/17 08:32; Admin Dose 500 MG; Start 01/08/17 at 15:30 Diagnostic Test (Pha) (Accu-Chek) 1 ea 02 XX Last administered on 01/31/17 02: 25; Admin Dose 1 EA; Start 01/15/17 at 02:00 Insulin Aspart 10 unit 10 unit ONCE PRN SC ELEVATED GLUCOSE Last administered on 01/21/17 02:15; Admin Dose 10 UNIT; Start 01/17/17 at 02:00 Sodium Chloride (1/2 NS) 1,000 ml @ 40 mls/hr Q24H IV Last administered on 01/18 21:32; Admin Dose 75 MLS/HR; Start 01/17/17 at 17:00; Status Future Hold Nitroglycerin (Nitroglycerin (Sl Tab) 0.4 Mg) 1 tab Q5M PRN SL ANGINA; Start at 21:30 Epoetin Sean (Epogen (Esrd)) 10,000 units MoWeFr@17 SC Last administered on 17:33; Admin Dose 10,000 UNITS; Start 01/19/17 at 17:00 Lubiprostone (Amitiza) 24 mcg BID PO Last administered on 02/04/17 08:32; Admin Dose 24 MCG; Start 01/21/17 at 21:00 Ondansetron HCl (Zofran Inj) 4 mg Q4H PRN IV NAUSEA AND/OR VOMITING Last administered on 01/28/17 13:32; Admin Dose 4 MG; Start 01/24/17 at 13:30 IV Flush (NS 10 ml) 10 ml PRN PRN IV IV PROTOCOL; Start 01/27/17 at 15:00 Multivitamins Therapeutic (Theragran) 1 tab DAILY PO Last administered on 08:32; Admin Dose 1 TAB; Start 01/30/17 at 09:00 Lactulose (Enulose) 30 gm Q6 GTB Last administered on 02/04/17 06:21; Admin Dose 30 GM; Start 01/29/17 at 20:00 Insulin Glargine (Lantus) 32 unit DAILY@20 SC Last administered on 02/03/17 21 :50; Admin Dose 32 UNIT; Start 01/31/17 at 20:00 Hydroxyzine HCl (Atarax) 10 mg Q6H PRN PO ITCHING Last administered on 23:22; Admin Dose 10 MG; Start 02/01/17 at 17:30 Triamcinolone Acetonide 1 applic 1 applic BID TOP Last administered on 09:41; Admin Dose 1 APPLIC; Start 02/01/17 at 21:00 Vancomycin HCl/ Sodium Chloride (Vancocin/NS) 250 ml @ 83.333 mls/ hr 09 IVPB ; Start 02/05/17 at 09:00; Stop 02/05/17 at 22:00 DANYEL HART MD Feb 04, 2017 08:58
[2017-02-04] MEDS: ALBUTEROL/IPRATROPIUM (NEB) 3 ML AMP HHN SCH ×4 (09:19→21:34)
--- NOTE | 2017-02-04 11:25 | CONS ---
Date/Time of Note Date/Time of Note DATE: 02/04/17 TIME: 11:23 Consult Date/Type/Reason Admit Date/Time Jan 07, 2017 at 10:13 Initial Consult Date 01/09/17 Type of Consultation: Pulmonary ICU Ordering Provider: JENY MORA MD Subjective Appears comfortable this morning less confusion and shortness of breath Objective Vital Signs Date Time Temp Pulse Resp B/P Pulse Ox O2 Delivery O2 Flow Rate FiO2 02/04/17 09:19 88 24 94 Nasal Cannula 2.0 02/04/17 07:23 99.2 114/57 02/01/17 02:18 31 Intake and Output 02/03/17 02/03/17 02/04/17 14:59 22:59 06:59 Intake Total 500 ml Output Total 4500 ml Balance -4000 ml Exam GENERAL: Moderately obese gentleman awake alert comfortable VITAL SIGNS: per chart NECK: Supple. No JVD or lymphadenopathy. CARDIAC EXAM: S1, S2. No added sounds or murmurs. CHEST: diminished air entry both lung bases ABDOMEN: Soft, nontender. No guarding or rebound. Significant obesity EXTREMITIES: No cyanosis, clubbing or edema +1 NEUROLOGIC: Generalized weakness. No focal deficits. Results/Medications Result Diagram: 02/04/17 0621 02/04/17 0621 Results 24 hrs Laboratory Tests Test 02/03/17 11:44 02/03/17 17:31 02/03/17 21:11 02/04/17 06:21 Bedside Glucose 160 150 163 White Blood Count 5.2 # Red Blood Count 3.29 L Hemoglobin 8.7 L Hematocrit 28.4 L Mean Corpuscular Volume 86.3 Mean Corpuscular Hemoglobin 26.4 L Mean Corpuscular Hemoglobin Concent 30.6 L Red Cell Distribution Width 19.0 H Platelet Count 77 L Mean Platelet Volume 12.0 H Neutrophils % 70.2 Lymphocytes % 15.1 Monocytes % 9.3 Eosinophils % 4.6 Basophils % 0.4 Nucleated Red Blood Cells % 0.0 Neutrophils # 3.6 Lymphocytes # 0.8 Monocytes # 0.5 Eosinophils # 0.2 Basophils # 0.0 Nucleated Red Blood Cells # 0.0 Sodium Level 137 Potassium Level 3.6 Chloride Level 98 Carbon Dioxide Level 29 Anion Gap 14 Blood Urea Nitrogen 26 H Creatinine 5.14 H Glucose Level 137 Calcium Level 7.9 L Phosphorus Level 5.3 H Magnesium Level 2.1 Total Bilirubin 0.5 Direct Bilirubin 0.00 Indirect Bilirubin 0.5 Aspartate Amino Transf (AST/SGOT) 32 Alanine Aminotransferase (ALT/SGPT) 44 Alkaline Phosphatase 108 Total Protein 7.0 Albumin 2.5 L Globulin 4.50 H Albumin/Globulin Ratio 0.55 Random Vancomycin Level 20.6 Test 02/04/17 07:56 Bedside Glucose 143 Medications Current Medications Atorvastatin Calcium (Lipitor) 20 mg HS PO Last administered on 02/03/17 21:14 ; Admin Dose 20 MG; Start 01/07/17 at 21:00 Miscellaneous Information 1 ea NOTE XX ; Start 01/07/17 at 17:30 Glucose (Glutose) 15 gm Q15M PRN PO DECREASED GLUCOSE; Start 01/07/17 at 17:30 Glucose (Glutose) 22.5 gm Q15M PRN PO DECREASED GLUCOSE; Start 01/07/17 at 17: 30 Dextrose (D50w Syringe) 25 ml Q15M PRN IV DECREASED GLUCOSE; Start 01/07/17 at 17:30 Dextrose (D50w Syringe) 50 ml Q15M PRN IV DECREASED GLUCOSE; Start 01/07/17 at 17:30 Glucagon (Glucagen) 1 mg Q15M PRN IM DECREASED GLUCOSE; Start 01/07/17 at 17:30 Glucose (Glutose) 15 gm Q15M PRN BUCCAL DECREASED GLUCOSE; Start 01/07/17 at 17 :30 Nifedipine (Procardia Xl) 30 mg DAILY PO Last administered on 02/03/17 09:39; Admin Dose 30 MG; Start 01/08/17 at 09:00 Docusate Sodium (Colace) 100 mg BID PRN PO CONSTIPATION Last administered on 11:56; Admin Dose 100 MG; Start 01/08/17 at 14:00 Acetaminophen (Tylenol Tab) 500 mg Q6H PRN PO PAIN AND OR ELEVATED TEMP Last administered on 02/04/17 08:32; Admin Dose 500 MG; Start 01/08/17 at 15:30 Diagnostic Test (Pha) (Accu-Chek) 1 ea 02 XX Last administered on 01/31/17 02: 25; Admin Dose 1 EA; Start 01/15/17 at 02:00 Insulin Aspart 10 unit 10 unit ONCE PRN SC ELEVATED GLUCOSE Last administered on 01/21/17 02:15; Admin Dose 10 UNIT; Start 01/17/17 at 02:00 Sodium Chloride (1/2 NS) 1,000 ml @ 40 mls/hr Q24H IV Last administered on 01/18 21:32; Admin Dose 75 MLS/HR; Start 01/17/17 at 17:00; Status Future Hold Nitroglycerin (Nitroglycerin (Sl Tab) 0.4 Mg) 1 tab Q5M PRN SL ANGINA; Start at 21:30 Epoetin Sean (Epogen (Esrd)) 10,000 units MoWeFr@17 SC Last administered on 17:33; Admin Dose 10,000 UNITS; Start 01/19/17 at 17:00 Lubiprostone (Amitiza) 24 mcg BID PO Last administered on 02/04/17 08:32; Admin Dose 24 MCG; Start 01/21/17 at 21:00 Ondansetron HCl (Zofran Inj) 4 mg Q4H PRN IV NAUSEA AND/OR VOMITING Last administered on 01/28/17 13:32; Admin Dose 4 MG; Start 01/24/17 at 13:30 IV Flush (NS 10 ml) 10 ml PRN PRN IV IV PROTOCOL; Start 01/27/17 at 15:00 Multivitamins Therapeutic (Theragran) 1 tab DAILY PO Last administered on 08:32; Admin Dose 1 TAB; Start 01/30/17 at 09:00 Lactulose (Enulose) 30 gm Q6 GTB Last administered on 02/04/17 06:21; Admin Dose 30 GM; Start 01/29/17 at 20:00 Insulin Glargine (Lantus) 32 unit DAILY@20 SC Last administered on 02/03/17 21 :50; Admin Dose 32 UNIT; Start 01/31/17 at 20:00 Hydroxyzine HCl (Atarax) 10 mg Q6H PRN PO ITCHING Last administered on 23:22; Admin Dose 10 MG; Start 02/01/17 at 17:30 Triamcinolone Acetonide 1 applic 1 applic BID TOP Last administered on 09:41; Admin Dose 1 APPLIC; Start 02/01/17 at 21:00 Vancomycin HCl/ Sodium Chloride (Vancocin/NS) 250 ml @ 83.333 mls/ hr 09 IVPB ; Start 02/05/17 at 09:00; Stop 02/05/17 at 22:00 Assessment/Plan Chief Complaint/Hosp Course IMP: 1. Dyspnea--likely multifactorial, component of obesity pulmonary edema cirrhosis obstructive sleep apnea. 2. 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 YEVGENIY 4. CKD now on hemodialysis 5. Encephalopathy toxic metabolic. Elevated ammonia noted. Not secondary to obstructive sleep apnea as patient does not have chronic CO2 retention on arterial blood gas. 6. Anemia likely secondary to chronic disease monitor H&H following epistaxis 7. Recent drug reaction. Antibiotics changed RECS: 1. BD's 2. Aspiration precautions 3. Supplemental O2 as needed 4. Hemodialysis per nephrology 5. Monitor ammonia level 6. Physical therapy if tolerated Problems: GU[facility] RESENDIZ [facility] Feb 04, 2017 11:25
--- NOTE | 2017-02-04 12:10 | PN ---
DATE: 01/28/2017 SUBJECTIVE DATA: The patient is lethargic and had complaint of increasing abdominal distention. He denies any chest pain. He is having frequent bowel movements secondary to lactulose. PHYSICAL EXAM: The patient is afebrile. Temperature 98.3, blood pressure 152/69. O2 sat is 100 percent on 5 L of nasal cannula. CHEST: Occasional wheezes. HEART: S1, S2. ABDOMEN: Ascites with moderate obesity. EXTREMITIES: Minimal edema. Taylor's negative. I and O intake is 1,450, output is 200. LABORATORY AND DIAGNOSTIC DATA: WBC: 8.7, hematocrit 26.3, platelet count 66,000. , BUN 50, creatinine 4.5. IMPRESSION: 1. Cirrhosis with portal hypertension with ascites. 2. Hepatic encephalopathy, improving. 3. Obstructive sleep apnea. 4. Chronic kidney disease with recent worsening . 5. Morbid obesity. PLAN: He will continue physical therapy. Continue lactulose. Continue hemodialysis per Dr. Castro. I have discussed the patient's case with Dr. Castro and Dr. Arteaga. Dictated By: Ivan Brice MD /[email or web address]/ /Document#: [id number]
--- NOTE | 2017-02-04 12:10 | PN ---
DATE: 01/24/2017 SUBJECTIVE DATA: The patient is lethargic. He had been complaining of pain all over the body. He had been given a dose of [place] last night. He also complains of nausea and vomiting. He denies any chest pain. Shortness of breath has improved. OBJECTIVE DATA: On physical examination, the patient is lethargic. Vital Signs: Temperature 98.5, blood pressure 112/58, pulse oximetry 100%. Head: Normocephalic. Chest: He has wheezes anteriorly. Heart: S1/S2 with no rub or gallop. Extremities: Significantly decreased edema, only 1+ today. Taylor's negative. LABORATORY AND DIAGNOSTIC DATA: WBC 9.9, hematocrit 26.7, platelet count 78,000. Sodium 148, potassium 4, BUN 79, creatinine 2.8, glucose 167. CRP is 5. IMPRESSION: 1. Cirrhosis of the liver. History of hepatitis C status post treatment with no evidence of recurrence. 2. Morbid obesity. 3. Acute on chronic renal failure with significant improvement of the renal function with dialysis. Had one yesterday and one today. Still putting out a good amount of urine. 4. Diabetes mellitus type 2. 5. Hypertension. 6. Emesis with bacteremia. 7. No possession of spontaneous bacterial peritonitis. 8. Patient with constipation. PLAN: Start the patient on Ultram. Mobilize the patient with physical therapy. . Recheck labs in the morning. I discussed the case with Dr. Collado this morning and he had ordered labs for evaluation of mixed cryoglobulinemia, which can occurs with hepatitis C. Will await the complement levels and discussed with Dr. Heath. Discussed at length with the patient's family at bedside. Dictated By: Ivan Brice MD /[email or web address]/ /Document#: [id number]
--- NOTE | 2017-02-04 12:18 | PN ---
DATE: 01/25/2017 SUBJECTIVE DATA: The patient is very lethargic today. Per family the patient was twitching with the left side of the face. No definite seizures. The patient also had a temperature of 99.7 at that time. OBJECTIVE DATA: Blood pressure, 120/ , O2 sat 95% on 5 L nasal cannula. Chest: Clear anteriorly. Heart: S1, S2, no gallops. Abdomen: Moderately obese, no definite Styles's. Extremities: Decreased edema. Taylor's negative. JAVON 1,300 in, 1,800 cc out, 4151, potassium 4.1, BUN 55, creatinine 2.86, phosphorous 5.1, ammonia 91. ABG done showed pH 738, PCO at a 49.7, PO of 70.9. Complement C3 is 87. C4 is 31. factor is negative. IMPRESSION: 1. Lethargy probably secondary to combination of hepatic encephalopathy and infection with fever. 2. Doubt acute CVA. 3. Cirrhosis portal hypertension. 4. Renal failure. Continues to improve on dialysis. 5. Bacteremia secondary to MSSA. 6. Severe constipation. 7. Poor p.o. intake. PLAN: We will start the patient on Glucerna and give tap water throughout the day. Increase the dose of Lactulose. Recheck the ammonia levels in the a.m. Will discuss with Dr. Yadav and in the a.m. We will also discuss with Dr. Collado. Dictated By: Ivan Brice MD /[email or web address]/ /Document#: [id number]
[2017-02-04 14:10] VITALS: BP 121/58; RESP 22
--- NOTE | 2017-02-04 14:17 | CONS ---
DATE OF ADMISSION: 01/07/2017 DATE OF CONSULTATION: 01/23/2017 REFERRING PHYSICIAN: King Castro MD REASON FOR CONSULTATION: Dialysis access. HISTORY OF PRESENT ILLNESS: This is a 61-year-old morbidly obese, diabetic gentleman with chronic kidney disease who is basically in fluid overload and it is unable to be controlled with medications. Dr. Castro called me yesterday and asked me to place a Permacath for temporary to midterm dialysis. PAST MEDICAL HISTORY: Significant for chronic kidney disease. He has nephrotic syndrome. He has hepatitis C cirrhosis, hypertension, hyperlipidemia, diabetes, anemia, congestive heart failure, obstructive sleep apnea, morbid obesity. MEDICATION: Insulin, lactulose, Amitiza, Lantus, Zosyn, Epogen, Bumex, nitroglycerin tabs, [employer], Procardia, albuterol, Lipitor, DuoNeb. PAST SURGICAL HISTORY: Appendectomy. FAMILY HISTORY: Noncontributory. SOCIAL HISTORY: He is an ex smoker. REVIEW OF SYSTEMS: He is awake and alert. He is clearly short of breath and uncomfortable with his breathing. He has to sit up to breathe well. He denies any current chest pain. He has no abdominal or back pain, not having any fevers or chills. No leg pain. PHYSICAL EXAMINATION: GENERAL APPEARANCE: He is a morbidly obese gentleman of [place] descent. He is a fluent Maur[place] speaker. VITAL SIGNS: He has been afebrile. Blood pressure is 126/72, heart rate 76, respiratory rate 19. He is 97 percent sat on 6 L nasal cannula. NECK: He has 2-plus carotid pulses bilaterally. He has no neck lines. His neck is not very large. Most of his obesity is central. VASCULAR: Two-plus radial and brachial pulses bilaterally. No arm edema. LUNGS: Kind of rhonchorous. HEART: Regular rate and rhythm. ABDOMEN: Morbidly obese. Soft, nontender. EXTREMITIES: Feet are warm and pink. He has 2-plus edema in both leg and diffuse anasarca. LABORATORY: White count is 13, was 13 yesterday. Hemoglobin is 8. Platelet count is in the 80s. Creatinine has been trending up, 3.7 yesterday. Coags are normal. He is not anticoagulated. IMPRESSION: 1. Fluid overload. 2. Chronic kidney disease. He is going to need at least medium- term hemodialysis, potentially even long-term dialysis. PLAN: I am going to place a Permacath today. If he needs a long- term access, to place a fistula or graft in the future. Dictated By: Sy Patiño MD /[email or web address]/ec /Document#: [id number] CC: King Castro MD; Ivan Brice MD; Kyler Yadav MD;*EndCC*
[2017-02-04 14:41] LABS: ADD UMIC YES; UR ASCORBIC ACID 20 mg/dL (NEGATIVE); UR BILIRUBIN (Dip) NEGATIVE (NEGATIVE); UR BLOOD (Dip) 3+ mg/dL (NEGATIVE); UR CLARITY TURBID (CLEAR); UR COLOR AMBER (YELLOW); UR GLUCOSE (Dip) NEGATIVE (NEGATIVE); UR KETONES (Dip) NEGATIVE (NEGATIVE); UR LEUKOCYTE ESTERASE (Dip) 1+ Leu/ul (NEGATIVE); UR NITRITE (Dip) NEGATIVE (NEGATIVE); UR RBC > 182 /HPF (0-5); UR SPECIFIC GRAVITY (Dip) 1.028 (1.003-1.030); UR TOTAL PROTEIN (Dip) 2+ mg/dl (NEGATIVE); UR UROBILINOGEN (Dip) NEGATIVE (NEGATIVE); UR WBC CLUMPS MANY /HPF (NONE SEEN)
--- NOTE | 2017-02-04 15:31 | PN ---
Date/Time of Note Date/Time of Note DATE: 02/04/17 TIME: 15:25 Assessment/Plan Lines/Catheters IV Catheter Type (from Nrsg): PICC Line Sykes in Place (from Nrsg): Yes Assessment/Plan Chief Complaint/Hosp Course 1. Mobrid obesity: BMI 48 -encourage weight loss -nutrition optimization -eventual bariatric surgery when medically stable 2. CHF: dyspnea with pulmonary congestion; dyspnea improved -continue diuresis per cards/renal -medical optimization -HD 3. Elevated troponin: renal failure vs NSTEMI; invasive/stress testing not recommended at this time per cards -trend and monitor 4. Chronic kidney disease: HD -per renal 5. Diabetes: blood sugar labile; on long acting and short acting insulin -optimize blood sugar control 6. Hypertension: controlled -cont. antihypertensives 7. YEVGENIY: morbid obesity, dyspnea improved after HD -cpap 8. Leukocytosis: on steroids; (repeat blood cx: no growth) vs. dvt; vs. uti: no fevers; ascitic fluid (low PMN- not the source per ID); cultures no growth, wbc normalized -abx per sensitivity 9. Dyspnea: multifactorial chf+ morbid obesity + ascites + YEVGENIY; improved; s/p dialysis -supportive -as above 10. Hyponatremia now with hypernatremia: s/p dialysis; improving - judicious fluid management 11. Anemia: CKD +/- chronic disease; doubt active bleed; h/h stable -monitor -transfuse as needed 12. Hypothyroidism; low tsh/t4 -medical optimization 13. Hypocalcemia: likely 2/2 poor nutrition + hypothyroid -optimize lytes -as above -medical optimization 14. Hypoalbuminemia: liver disease +/- malnutrition, -replete -nutrition optimization 15. Hepatic encephalopathy: Hepatitis C history, on treatment; ammonia levels improved; more awake and oriented -per gi/hepatology 16. Thrombocytopenia: 2/2 liver disease; improved -bleeding precautions -supportive 17. Rash: ?drug reaction improved -abx changed per ID 18. Hypokalemia -replete and monitor 19. UTI: -abx per sensitivities Patient seen and examined in collaboration with Dr. Marcelino Morales Problems: Subjective 24 Hr Interval Summary tachycardic, min temp. Sob improved.headache. No c/o sz, dizziness, cp, palpitations, n/v/d no fevers, chills.. Exam/Review of Systems Vital Signs Vitals Vital Signs Date Time Temp Pulse Resp B/P Pulse Ox O2 Delivery O2 Flow Rate FiO2 02/04/17 14:10 98.5 100 22 121/58 95 02/04/17 13:46 Nasal Cannula 2.0 02/01/17 02:18 31 Intake and Output 02/03/17 02/03/17 02/04/17 14:59 22:59 06:59 Intake Total 500 ml Output Total 4500 ml Balance -4000 ml Exam Free Text/Dictation Constitutional: awake, obese, oriented Psych: nl mood/affect, no complaints Head: atraumatic, normocephalic Eyes: nl conjunctiva, nl lids ENMT: mucosa pink and moist Neck: non-tender, supple; right IJ Respiratory: diminished breath sounds; no use of accessory muscles Cardiovascular: regular rate and rhythm Gastrointestinal: distended (mod), non-tender, soft Genitourinary - Male: nl penis, nl scrotum, No CVA tenderness; sykes Musculoskeletal: nl extremities to inspection Extremities: edema (ble 3+), normal pulses 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: no nl mental status, nl speech Skin: pinpoint rash torso, upper arms and back (improved) Results Result Diagram: 02/04/1762002/04/17620 ERLINDA VALLE NP Feb 04, 2017 15:31
[2017-02-04] MEDS: EPOETIN 10000 UNITS/1 ML INJ (ESRD) SC SCH (17:32)
--- NOTE | 2017-02-04 17:51 | CONS ---
Date/Time of Note Date/Time of Note DATE: 02/04/17 TIME: 17:37 Assessment/Plan Assessment/Plan Chief Complaint/Hosp Course Impression: 1. Chronic kidney disease. He had hemodialysis yesterday and is ordered again for tomorrow . he has CKD and his renal function does not seem to be improving . I suspect that he will need on going dialysis and will start to make arrangements for outpatient hemodialysis . A kidney biopsy would be helpful ; however , I don't think that a percutaneous kidney biopsy is technically feasible in view of his large body habitus . 2. 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 He has been treated for hepatitis C virus in 2013 and according to his he has been negative for hepatitis C on 3 or 4 blood tests . 3. Hypertension 4. Hyperlipidemia 5. Anemia, 6. Congestive heart failure . Fluid is being removed with dialysis and he seems less fluid overloaded. His last chest x-ray has improved. 7. Obstructive sleep apnea 8. Altered level of consciousness/hepatic encephalopathy, his ammonia level is back to normal and he is more awake and alert. He seems more alert today and he does not have any asterixis. Continue current treatment for hepatic encephalopathy. 9. Rash possibly due to rifaximin. This was discontinued. Problems: Consultation Date/Type/Reason Admit Date/Time Jan 07, 2017 at 10:13 Initial Consult Date 01/19/17 Type of Consultation: Pulmonary ICU Referring Provider: JENY MORA MD 24 HR Interval Summary Free Text/Dictation Patient is awake and alert today .He is in bed . Constitutional: no complaints Exam/Review of Systems Vital Signs Vitals Vital Signs Date Time Temp Pulse Resp B/P Pulse Ox O2 Delivery O2 Flow Rate FiO2 02/04/17 14:10 98.5 100 22 121/58 95 02/04/17 13:46 Nasal Cannula 2.0 02/01/17 02:18 31 Intake and Output 02/03/17 02/03/17 02/04/17 15:00 23:00 07:00 Intake Total 500 ml Output Total 4500 ml Balance -4000 ml Exam Constitutional: alert, obese, oriented Neck: supple Respiratory: clear to auscultation, diminished breath sounds Cardiovascular: edema, regular rate and rhythm Gastrointestinal: distended, non-tender, soft Musculoskeletal: nl extremities to inspection Results Result Diagram: 02/04/17 0621 02/04/17 0621 Results 24 hrs Laboratory Tests Test 02/03/17 21:11 02/04/17 06:21 02/04/17 07:56 02/04/17 12:18 Bedside Glucose 163 143 138 White Blood Count 5.2 # Red Blood Count 3.29 L Hemoglobin 8.7 L Hematocrit 28.4 L Mean Corpuscular Volume 86.3 Mean Corpuscular Hemoglobin 26.4 L Mean Corpuscular Hemoglobin Concent 30.6 L Red Cell Distribution Width 19.0 H Platelet Count 77 L Mean Platelet Volume 12.0 H Neutrophils % 70.2 Lymphocytes % 15.1 Monocytes % 9.3 Eosinophils % 4.6 Basophils % 0.4 Nucleated Red Blood Cells % 0.0 Neutrophils # 3.6 Lymphocytes # 0.8 Monocytes # 0.5 Eosinophils # 0.2 Basophils # 0.0 Nucleated Red Blood Cells # 0.0 Sodium Level 137 Potassium Level 3.6 Chloride Level 98 Carbon Dioxide Level 29 Anion Gap 14 Blood Urea Nitrogen 26 H Creatinine 5.14 H Glucose Level 137 Calcium Level 7.9 L Phosphorus Level 5.3 H Magnesium Level 2.1 Total Bilirubin 0.5 Direct Bilirubin 0.00 Indirect Bilirubin 0.5 Aspartate Amino Transf (AST/SGOT) 32 Alanine Aminotransferase (ALT/SGPT) 44 Alkaline Phosphatase 108 Total Protein 7.0 Albumin 2.5 L Globulin 4.50 H Albumin/Globulin Ratio 0.55 Random Vancomycin Level 20.6 Test 02/04/17 14:15 02/04/17 17:22 Urine Color KAYLAN Urine Clarity TURBID A Urine pH 5.0 Urine Specific [place] 1.028 Urine Ketones NEGATIVE Urine Nitrite NEGATIVE Urine Bilirubin NEGATIVE Urine Urobilinogen NEGATIVE Urine Leukocyte Esterase 1+ H Urine Microscopic RBC > 182 H Urine Microscopic WBC > 182 H Urine Hemoglobin 3+ H Urine Glucose NEGATIVE Urine Total Protein 2+ H Bedside Glucose 198 Medications Medications Current Medications Atorvastatin Calcium (Lipitor) 20 mg HS PO Last administered on 02/03/17t 21:14 ; Admin Dose 20 MG; Start 01/07/17 at 21:00; Status Future Hold Miscellaneous Information 1 ea NOTE XX ; Start 01/07/17 at 17:30 Glucose (Glutose) 15 gm Q15M PRN PO DECREASED GLUCOSE; Start 01/07/17 at 17:30 Glucose (Glutose) 22.5 gm Q15M PRN PO DECREASED GLUCOSE; Start 01/07/17 at 17: 30 Dextrose (D50w Syringe) 25 ml Q15M PRN IV DECREASED GLUCOSE; Start 01/07/17 at 17:30 Dextrose (D50w Syringe) 50 ml Q15M PRN IV DECREASED GLUCOSE; Start 01/07/17 at 17:30 Glucagon (Glucagen) 1 mg Q15M PRN IM DECREASED GLUCOSE; Start 01/07/17 at 17:30 Glucose (Glutose) 15 gm Q15M PRN BUCCAL DECREASED GLUCOSE; Start 01/07/17 at 17 :30 Nifedipine (Procardia Xl) 30 mg DAILY PO Last administered on 02/03/17 09:39; Admin Dose 30 MG; Start 01/08/17 at 09:00 Docusate Sodium (Colace) 100 mg BID PRN PO CONSTIPATION Last administered on 11:56; Admin Dose 100 MG; Start 01/08/17 at 14:00 Acetaminophen (Tylenol Tab) 500 mg Q6H PRN PO PAIN AND OR ELEVATED TEMP Last administered on 02/04/17 08:32; Admin Dose 500 MG; Start 01/08/17 at 15:30 Diagnostic Test (Pha) (Accu-Chek) 1 ea 02 XX Last administered on 01/31/17 02: 25; Admin Dose 1 EA; Start 01/15/17 at 02:00 Insulin Aspart 10 unit 10 unit ONCE PRN SC ELEVATED GLUCOSE Last administered on 01/21/17 02:15; Admin Dose 10 UNIT; Start 01/17/17 at 02:00 Sodium Chloride (1/2 NS) 1,000 ml @ 40 mls/hr Q24H IV Last administered on 01/18 21:32; Admin Dose 75 MLS/HR; Start 01/17/17 at 17:00; Status Future Hold Nitroglycerin (Nitroglycerin (Sl Tab) 0.4 Mg) 1 tab Q5M PRN SL ANGINA; Start at 21:30 Epoetin Sean (Epogen (Esrd)) 10,000 units MoWeFr@17 SC Last administered on 17:32; Admin Dose 10,000 UNITS; Start 01/19/17 at 17:00 Lubiprostone (Amitiza) 24 mcg BID PO Last administered on 02/04/17 08:32; Admin Dose 24 MCG; Start 01/21/17 at 21:00 Ondansetron HCl (Zofran Inj) 4 mg Q4H PRN IV NAUSEA AND/OR VOMITING Last administered on 01/28/17 13:32; Admin Dose 4 MG; Start 01/24/17 at 13:30 IV Flush (NS 10 ml) 10 ml PRN PRN IV IV PROTOCOL; Start 01/27/17 at 15:00 Multivitamins Therapeutic (Theragran) 1 tab DAILY PO Last administered on 08:32; Admin Dose 1 TAB; Start 01/30/17 at 09:00 Lactulose (Enulose) 30 gm Q6 GTB Last administered on 02/04/17 17:26; Admin Dose 30 GM; Start 01/29/17 at 20:00 Insulin Glargine (Lantus) 32 unit DAILY@20 SC Last administered on 02/03/17 21 :50; Admin Dose 32 UNIT; Start 01/31/17 at 20:00 Hydroxyzine HCl (Atarax) 10 mg Q6H PRN PO ITCHING Last administered on 23:22; Admin Dose 10 MG; Start 02/01/17 at 17:30 Triamcinolone Acetonide 1 applic 1 applic BID TOP Last administered on 09:41; Admin Dose 1 APPLIC; Start 02/01/17 at 21:00 Vancomycin HCl/ Sodium Chloride (Vancocin/NS) 250 ml @ 83.333 mls/ hr 09 IVPB ; Start 02/05/17 at 09:00; Stop 02/05/17 at 22:00 ANA MELENDEZ MD Feb 04, 2017 17:51
--- NOTE | 2017-02-04 18:14 | CONS ---
Date/Time of Note Date/Time of Note DATE: 02/04/17 TIME: 18:13 Assessment/Plan Assessment/Plan Chief Complaint/Hosp Course 61-year-old male admitted for shortness of breath. Patient is a history of hepatitis C cirrhosis of liver, morbid obesity obstructive sleep apnea, diabetes mellitus and hypertension. Recent was brought to the emergency room for abdominal distention and shortness of breath. He was slightly nauseous. 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 Problems: Additional Assessment/Plan Additional Assessment/Plan 1. Shortness of breath multifactorial, much better 2. Morbid obesity, patient lost 22 pounds 3. Cirrhosis of liver with portal hypertension 4. Mild ascites 5. Diabetes 6. Hypertension 7. Renal failure patient on dialysis 8. Anasarca, almost to resolved 11. Severe constipation, better 12. Profound weakness, second to dialysis 13. Encephalopathy, much better, and ammonia is back to normal 14 epistaxis, resolved 15. Sleep apnea Plan Continue with the lactulose and dialysis Rifaximin has been stopped Physical therapy and ambulate patient Patient is steadily losing weight Consultation Date/Type/Reason Admit Date/Time Jan 07, 2017 at 10:13 Initial Consult Date 01/09/17 Type of Consultation: Pulmonary ICU Referring Provider: JENY MORA MD 24 HR Interval Summary Free Text/Dictation Started ambulating Constitutional: improved Exam/Review of Systems Vital Signs Vitals Vital Signs Date Time Temp Pulse Resp B/P Pulse Ox O2 Delivery O2 Flow Rate FiO2 02/04/17 17:58 3.0 02/04/17 17:37 88 20 90 21 02/04/17 14:10 98.5 121/58 02/04/17 13:46 Nasal Cannula Intake and Output 02/03/17 02/03/17 02/04/17 15:00 23:00 07:00 Intake Total 500 ml Output Total 4500 ml Balance -4000 ml Exam Constitutional: alert, oriented, well developed Psych: nl mood/affect, no complaints Head: atraumatic, normocephalic Eyes: EOMI, PERRL, nl conjunctiva, nl lids, nl sclera ENMT: nl external ears & nose, nl lips & teeth, nl nasal mucosa & septum Neck: non-tender, supple Respiratory: clear to auscultation, normal air movement Cardiovascular: nl pulses, regular rate and rhythm Gastrointestinal: nl liver, spleen, non-tender, soft Musculoskeletal: nl extremities to inspection, nl gait and stance Extremities: normal pulses 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: SALES SECRETARY II-XII intact, nl mental status, nl speech, nl strength Skin: nl turgor, No rash or lesions Lymph: nl lymph nodes Results Result Diagram: 02/04/17 0621 02/04/17 0621 Results 24 hrs Laboratory Tests Test 02/03/17 21:11 02/04/17 06:21 02/04/17 07:56 02/04/17 12:18 Bedside Glucose 163 143 138 White Blood Count 5.2 # Red Blood Count 3.29 L Hemoglobin 8.7 L Hematocrit 28.4 L Mean Corpuscular Volume 86.3 Mean Corpuscular Hemoglobin 26.4 L Mean Corpuscular Hemoglobin Concent 30.6 L Red Cell Distribution Width 19.0 H Platelet Count 77 L Mean Platelet Volume 12.0 H Neutrophils % 70.2 Lymphocytes % 15.1 Monocytes % 9.3 Eosinophils % 4.6 Basophils % 0.4 Nucleated Red Blood Cells % 0.0 Neutrophils # 3.6 Lymphocytes # 0.8 Monocytes # 0.5 Eosinophils # 0.2 Basophils # 0.0 Nucleated Red Blood Cells # 0.0 Sodium Level 137 Potassium Level 3.6 Chloride Level 98 Carbon Dioxide Level 29 Anion Gap 14 Blood Urea Nitrogen 26 H Creatinine 5.14 H Glucose Level 137 Calcium Level 7.9 L Phosphorus Level 5.3 H Magnesium Level 2.1 Total Bilirubin 0.5 Direct Bilirubin 0.00 Indirect Bilirubin 0.5 Aspartate Amino Transf (AST/SGOT) 32 Alanine Aminotransferase (ALT/SGPT) 44 Alkaline Phosphatase 108 Total Protein 7.0 Albumin 2.5 L Globulin 4.50 H Albumin/Globulin Ratio 0.55 Random Vancomycin Level 20.6 Test 02/04/17 14:15 02/04/17 17:22 Urine Color KAYLAN Urine Clarity TURBID A Urine pH 5.0 Urine Specific [place] 1.028 Urine Ketones NEGATIVE Urine Nitrite NEGATIVE Urine Bilirubin NEGATIVE Urine Urobilinogen NEGATIVE Urine Leukocyte Esterase 1+ H Urine Microscopic RBC > 182 H Urine Microscopic WBC > 182 H Urine Hemoglobin 3+ H Urine Glucose NEGATIVE Urine Total Protein 2+ H Bedside Glucose 198 Medications Medications Current Medications Atorvastatin Calcium (Lipitor) 20 mg HS PO Last administered on 02/03/17t 21:14 ; Admin Dose 20 MG; Start 01/07/17 at 21:00; Status Future Hold Miscellaneous Information 1 ea NOTE XX ; Start 01/07/17 at 17:30 Glucose (Glutose) 15 gm Q15M PRN PO DECREASED GLUCOSE; Start 01/07/17 at 17:30 Glucose (Glutose) 22.5 gm Q15M PRN PO DECREASED GLUCOSE; Start 01/07/17 at 17: 30 Dextrose (D50w Syringe) 25 ml Q15M PRN IV DECREASED GLUCOSE; Start 01/07/17 at 17:30 Dextrose (D50w Syringe) 50 ml Q15M PRN IV DECREASED GLUCOSE; Start 01/07/17 at 17:30 Glucagon (Glucagen) 1 mg Q15M PRN IM DECREASED GLUCOSE; Start 01/07/17 at 17:30 Glucose (Glutose) 15 gm Q15M PRN BUCCAL DECREASED GLUCOSE; Start 01/07/17 at 17 :30 Nifedipine (Procardia Xl) 30 mg DAILY PO Last administered on 02/03/17 09:39; Admin Dose 30 MG; Start 01/08/17 at 09:00 Docusate Sodium (Colace) 100 mg BID PRN PO CONSTIPATION Last administered on 11:56; Admin Dose 100 MG; Start 01/08/17 at 14:00 Acetaminophen (Tylenol Tab) 500 mg Q6H PRN PO PAIN AND OR ELEVATED TEMP Last administered on 02/04/17 08:32; Admin Dose 500 MG; Start 01/08/17 at 15:30 Diagnostic Test (Pha) (Accu-Chek) 1 ea 02 XX Last administered on 01/31/17 02: 25; Admin Dose 1 EA; Start 01/15/17 at 02:00 Insulin Aspart 10 unit 10 unit ONCE PRN SC ELEVATED GLUCOSE Last administered on 01/21/17 02:15; Admin Dose 10 UNIT; Start 01/17/17 at 02:00 Sodium Chloride (1/2 NS) 1,000 ml @ 40 mls/hr Q24H IV Last administered on 01/18 21:32; Admin Dose 75 MLS/HR; Start 01/17/17 at 17:00; Status Future Hold Nitroglycerin (Nitroglycerin (Sl Tab) 0.4 Mg) 1 tab Q5M PRN SL ANGINA; Start at 21:30 Epoetin Sean (Epogen (Esrd)) 10,000 units MoWeFr@17 SC Last administered on 17:32; Admin Dose 10,000 UNITS; Start 01/19/17 at 17:00 Lubiprostone (Amitiza) 24 mcg BID PO Last administered on 02/04/17 08:32; Admin Dose 24 MCG; Start 01/21/17 at 21:00 Ondansetron HCl (Zofran Inj) 4 mg Q4H PRN IV NAUSEA AND/OR VOMITING Last administered on 01/28/17 13:32; Admin Dose 4 MG; Start 01/24/17 at 13:30 IV Flush (NS 10 ml) 10 ml PRN PRN IV IV PROTOCOL; Start 01/27/17 at 15:00 Multivitamins Therapeutic (Theragran) 1 tab DAILY PO Last administered on 08:32; Admin Dose 1 TAB; Start 01/30/17 at 09:00 Lactulose (Enulose) 30 gm Q6 GTB Last administered on 02/04/17 17:26; Admin Dose 30 GM; Start 01/29/17 at 20:00 Insulin Glargine (Lantus) 32 unit DAILY@20 SC Last administered on 02/03/17 21 :50; Admin Dose 32 UNIT; Start 01/31/17 at 20:00 Hydroxyzine HCl (Atarax) 10 mg Q6H PRN PO ITCHING Last administered on 23:22; Admin Dose 10 MG; Start 02/01/17 at 17:30 Triamcinolone Acetonide 1 applic 1 applic BID TOP Last administered on 09:41; Admin Dose 1 APPLIC; Start 02/01/17 at 21:00 Vancomycin HCl/ Sodium Chloride (Vancocin/NS) 250 ml @ 83.333 mls/ hr 09 IVPB ; Start 02/05/17 at 09:00; Stop 02/05/17 at 22:00 STUART STANLEY MD Feb 04, 2017 18:14
[2017-02-04 19:31] VITALS: BP 137/70; RESP 20
[2017-02-04] MEDS: INSULIN GLARGINE [LANtus] 3 ML PEN SC SCH (20:18)
[2017-02-05] VITALS (11 sets, daily range): BP systolic 116–148; BP diastolic 63–85; PULSE 83–91; RESP 20
[2017-02-05] MEDS: ACETAMINOPHEN 500 MG TAB PO PRN ×2 (01:24→11:25)
[2017-02-05] MEDS: ACCU-CHEK XX SCH (02:00)
[2017-02-05] MEDS: LACTULOSE 30ML CUP GTB SCH ×5 (05:34→23:54)
[2017-02-05 06:50] LABS: ABNORMAL IP MESSAGE 1; BASOPHILS % 0.4 % (0.0-2.0); EOSINOPHILS # 0.3 10^3/ul (0.0-0.5); EOSINOPHILS % 6.4 % (0.0-7.0); HEMATOCRIT 27.5 % (42.0-52.0); HEMOGLOBIN 8.4 g/dl (14.0-18.0); LYMPHOCYTES # 0.8 10^3/ul (0.8-2.9); LYMPHOCYTES % 16.8 % (15.0-51.0); MEAN CORPUSCULAR HEMOGLOBIN 25.9 pg (29.0-33.0); MEAN CORPUSCULAR HGB CONC 30.5 g/dl (32.0-37.0); MEAN CORPUSCULAR VOLUME 84.9 fl (82.0-101.0); MEAN PLATELET VOLUME 11.5 fl (7.4-10.4); MONOCYTE # 0.4 10^3/ul (0.3-0.9); MONOCYTES % 9.4 % (0.0-11.0); NEUTROPHIL # 3.1 10^3/ul (1.6-7.5); NEUTROPHILS % 66.6 % (39.0-77.0); PLATELET COUNT 77 10^3/UL (140-415); POSITIVE DIFF @See below; RED BLOOD COUNT 3.24 10^6/ul (4.70-6.10); RED CELL DISTRIBUTION WIDTH 19.3 % (11.5-14.5); WHITE BLOOD COUNT 4.7 10^3/ul (4.8-10.8)
[2017-02-05 07:28] LABS: ALBUMIN 2.5 g/dl (3.3-4.9); ALBUMIN/GLOBULIN RATIO 0.54; BILIRUBIN,INDIRECT 0.4 mg/dl (0-1.1); BILIRUBIN,TOTAL 0.4 mg/dl (0.2-1.3); CALCIUM 7.5 mg/dl (8.4-10.2); CREATININE 6.21 mg/dl (0.61-1.24); POTASSIUM 3.8 mmol/L (3.5-5.1); TOTAL PROTEIN 7.1 g/dl (6.1-8.1)
[2017-02-05] MEDS: INSULIN ASPART [NOVOLOG] 3 ML PEN SC SCH ×4 (07:59→20:41)
[2017-02-05] MEDS: ALBUTEROL/IPRATROPIUM (NEB) 3 ML AMP HHN SCH ×4 (08:07→20:35)
[2017-02-05] MEDS ORDERED: VANCOMYCIN 1.5 GM in SOD CHLORIDE 0.9% 250 ML IVPB SCH (09:00)
[2017-02-05] MEDS: LUBIPROSTONE 24 MCG CAP PO SCH ×2 (09:00→20:40)
[2017-02-05] MEDS: MULTIVITAMINS THERAPEUTIC TAB PO SCH (09:00)
[2017-02-05] MEDS: NIFEdipine (XL) 30 MG TAB PO SCH (09:01)
[2017-02-05] MEDS: TRIAMCINOLONE ACET 0.1% 15 GM OINT TOP SCH ×2 (09:01→20:41)
--- NOTE | 2017-02-05 09:56 | PN ---
Date/Time of Note Date/Time of Note DATE: 02/05/17 TIME: 09:48 Assessment/Plan Lines/Catheters IV Catheter Type (from Nrs): PICC Line Sykes in Place (from Nrs): Yes Assessment/Plan Chief Complaint/Hosp Course 1. Mobrid obesity: BMI 48 -encourage weight loss -nutrition optimization -eventual bariatric surgery when medically stable 2. CHF: dyspnea with pulmonary congestion; dyspnea improved -medical optimization -HD 3. Elevated troponin: renal failure vs NSTEMI; invasive/stress testing not recommended at this time per cards -trend and monitor 4. Chronic kidney disease: HD; may need continuous outpatient HD -per renal 5. Diabetes: blood sugar labile; on long acting and short acting insulin -optimize blood sugar control 6. Hypertension: controlled -cont. antihypertensives 7. YEVGENIY: morbid obesity, dyspnea improved after HD -cpap 8. Leukocytosis: on steroids; (repeat blood cx: no growth) vs. dvt; vs. uti: no fevers; ascitic fluid (low PMN- not the source per ID); cultures no growth, no Leukopenic -abx per sensitivity 9. Dyspnea: multifactorial chf+ morbid obesity + ascites + YEVGENIY; improved; s/p dialysis -supportive -as above 10. Hyponatremia: labile - judicious fluid management 11. Anemia: CKD +/- chronic disease; doubt active bleed; h/h stable -monitor -transfuse as needed 12. Hypothyroidism; low tsh/t4 -medical optimization 13. Hypocalcemia: likely 2/2 poor nutrition + hypothyroid -optimize lytes -as above -medical optimization 14. Hypoalbuminemia: liver disease +/- malnutrition, -replete -nutrition optimization 15. Hepatic encephalopathy: Hepatitis C history, on treatment; ammonia levels improved; more awake and oriented -per gi/hepatology 16. Thrombocytopenia: 2/2 liver disease; stable -bleeding precautions -supportive 17. Rash: ?drug reaction improved -abx changed per ID 18. Hypokalemia: normalized -replete and monitor 19. UTI: -abx per sensitivities 20 Pancytopenia Patient seen and examined in collaboration with Dr. Marcelino Morales Problems: Subjective 24 Hr Interval Summary fever overnight +bowel function, hd today. Up with PT. No c/o mccallum, dizziness, sob , cough, cp, palpitations, n/v/d. Exam/Review of Systems Vital Signs Vitals Vital Signs Date Time Temp Pulse Resp B/P Pulse Ox O2 Delivery O2 Flow Rate FiO2 02/05/17 07:37 98.6 87 20 136/74 98 02/05/17 01:54 3.0 02/04/17 21:34 Nasal Cannula 02/04/17 17:37 21 Intake and Output 02/04/17 02/04/17 02/05/17 15:00 23:00 07:00 Intake Total 400 ml 360 ml 120 ml Output Total 100 ml 50 ml Balance 400 ml 260 ml 70 ml Exam Free Text/Dictation Constitutional: awake, obese, oriented Psych: nl mood/affect, no complaints Head: atraumatic, normocephalic Eyes: nl conjunctiva, nl lids ENMT: mucosa pink and moist Neck: non-tender, supple; right IJ Respiratory: diminished breath sounds; no use of accessory muscles Cardiovascular: regular rate and rhythm Gastrointestinal: distended (mod), non-tender, soft Genitourinary - Male: nl penis, nl scrotum, No CVA tenderness; sykes Musculoskeletal: nl extremities to inspection Extremities: edema (ble 2+), normal pulses 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: no nl mental status, nl speech Skin: pinpoint rash torso, upper arms and back (improved) Results Result Diagram: 02/05/17 0601 02/05/17 0559 ERLINDA VALLE NP Feb 05, 2017 09:56
--- NOTE | 2017-02-05 13:35 | CONS ---
Date/Time of Note Date/Time of Note DATE: 02/05/17 TIME: 13:28 Assessment/Plan Assessment/Plan Chief Complaint/Hosp Course Impression: 1. Chronic kidney disease. He had hemodialysis today and 4 L of fluid was removed. He has CKD and his renal function does not seem to be improving . I suspect that he will need on going dialysis and will start to make arrangements for outpatient hemodialysis . A kidney biopsy would be helpful ; however , I don 't think that a percutaneous kidney biopsy is technically feasible in view of his large body habitus and the risk of bleeding. His next dialysis will tentatively be in 2 days. 2. 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 He has been treated for hepatitis C virus in 2013 and according to his he has been negative for hepatitis C on 3 or 4 blood tests another hepatitis C has been ordered.. 3. Hypertension 4. Hyperlipidemia 5. Anemia, 6. Congestive heart failure . He has lost a substantial amount of fluid with dialysis. He seems overall better and his congestive heart failure is improved.. 7. Obstructive sleep apnea 8. Altered level of consciousness/hepatic encephalopathy, his ammonia level is back to normal and he is more awake and alert. He seems more alert today and he does not have any asterixis. Continue current treatment for hepatic encephalopathy. 9. Rash possibly due to rifaximin. This was discontinued. 10. Gross hematuria. Problems: Consultation Date/Type/Reason Admit Date/Time Jan 07, 2017 at 10:13 Initial Consult Date 01/19/17 Type of Consultation: renal Referring Provider: JENY MORA MD 24 HR Interval Summary Free Text/Dictation Patient seems much better today. He is sitting up on the edge of the bed. He had a hemodialysis treatment today and 4 L of fluid was removed. He does complain of a dry cough. He is having some gross hematuria through his Dasilva catheter. Constitutional: improved Exam/Review of Systems Vital Signs Vitals Vital Signs Date Time Temp Pulse Resp B/P Pulse Ox O2 Delivery O2 Flow Rate FiO2 02/05/17 12:31 97 3.0 02/05/17 12:28 97 24 Nasal Cannula 02/05/17 07:37 98.6 136/74 02/04/17 17:37 21 Intake and Output 02/04/17 02/04/17 02/05/17 15:00 23:00 07:00 Intake Total 400 ml 360 ml 120 ml Output Total 100 ml 50 ml Balance 400 ml 260 ml 70 ml Exam Constitutional: alert, frail, obese, oriented Respiratory: clear to auscultation, normal air movement Cardiovascular: edema, regular rate and rhythm Gastrointestinal: soft Extremities: edema Results Result Diagram: 02/05/17 0601 02/05/17 0559 Results 24 hrs Laboratory Tests Test 02/04/17 14:15 02/04/17 17:22 02/04/17 20:13 02/05/17 05:59 Urine Color KAYLAN Urine Clarity TURBID A Urine pH 5.0 Urine Specific [place] 1.028 Urine Ketones NEGATIVE Urine Nitrite NEGATIVE Urine Bilirubin NEGATIVE Urine Urobilinogen NEGATIVE Urine Leukocyte Esterase 1+ H Urine Microscopic RBC > 182 H Urine Microscopic WBC > 182 H Urine Hemoglobin 3+ H Urine Glucose NEGATIVE Urine Total Protein 2+ H Bedside Glucose 198 167 Sodium Level 134 L Potassium Level 3.8 Chloride Level 95 L Carbon Dioxide Level 27 Anion Gap 16 Blood Urea Nitrogen 34 H Creatinine 6.21 H Glucose Level 147 Calcium Level 7.5 L Total Bilirubin 0.4 Direct Bilirubin 0.00 Indirect Bilirubin 0.4 Aspartate Amino Transf (AST/SGOT) 33 Alanine Aminotransferase (ALT/SGPT) 39 Alkaline Phosphatase 121 Total Protein 7.1 Albumin 2.5 L Globulin 4.60 H Albumin/Globulin Ratio 0.54 Test 02/05/17 06:01 02/05/17 07:54 02/05/17 12:16 White Blood Count 4.7 L Red Blood Count 3.24 L Hemoglobin 8.4 L Hematocrit 27.5 L Mean Corpuscular Volume 84.9 Mean Corpuscular Hemoglobin 25.9 L Mean Corpuscular Hemoglobin Concent 30.5 L Red Cell Distribution Width 19.3 H Platelet Count 77 L Mean Platelet Volume 11.5 H Neutrophils % 66.6 Lymphocytes % 16.8 Monocytes % 9.4 Eosinophils % 6.4 Basophils % 0.4 Nucleated Red Blood Cells % 0.0 Neutrophils # 3.1 Lymphocytes # 0.8 Monocytes # 0.4 Eosinophils # 0.3 Basophils # 0.0 Nucleated Red Blood Cells # 0.0 Bedside Glucose 146 135 Medications Medications Current Medications Atorvastatin Calcium (Lipitor) 20 mg HS PO Last administered on 02/03/17t 21:14 ; Admin Dose 20 MG; Start 01/07/17 at 21:00; Status Future Hold Miscellaneous Information 1 ea NOTE XX ; Start 01/07/17 at 17:30 Glucose (Glutose) 15 gm Q15M PRN PO DECREASED GLUCOSE; Start 01/07/17 at 17:30 Glucose (Glutose) 22.5 gm Q15M PRN PO DECREASED GLUCOSE; Start 01/07/17 at 17: 30 Dextrose (D50w Syringe) 25 ml Q15M PRN IV DECREASED GLUCOSE; Start 01/07/17 at 17:30 Dextrose (D50w Syringe) 50 ml Q15M PRN IV DECREASED GLUCOSE; Start 01/07/17 at 17:30 Glucagon (Glucagen) 1 mg Q15M PRN IM DECREASED GLUCOSE; Start 01/07/17 at 17:30 Glucose (Glutose) 15 gm Q15M PRN BUCCAL DECREASED GLUCOSE; Start 01/07/17 at 17 :30 Nifedipine (Procardia Xl) 30 mg DAILY PO Last administered on 02/05/17 09:01; Admin Dose 30 MG; Start 01/08/17 at 09:00 Docusate Sodium (Colace) 100 mg BID PRN PO CONSTIPATION Last administered on 11:56; Admin Dose 100 MG; Start 01/08/17 at 14:00 Acetaminophen (Tylenol Tab) 500 mg Q6H PRN PO PAIN AND OR ELEVATED TEMP Last administered on 02/05/17 11:25; Admin Dose 500 MG; Start 01/08/17 at 15:30 Diagnostic Test (Pha) (Accu-Chek) 1 ea 02 XX Last administered on 01/31/17 02: 25; Admin Dose 1 EA; Start 01/15/17 at 02:00 Insulin Aspart 10 unit 10 unit ONCE PRN SC ELEVATED GLUCOSE Last administered on 01/21/17 02:15; Admin Dose 10 UNIT; Start 01/17/17 at 02:00 Sodium Chloride (1/2 NS) 1,000 ml @ 40 mls/hr Q24H IV Last administered on 01/18 21:32; Admin Dose 75 MLS/HR; Start 01/17/17 at 17:00; Status Future Hold Nitroglycerin (Nitroglycerin (Sl Tab) 0.4 Mg) 1 tab Q5M PRN SL ANGINA; Start at 21:30 Epoetin Sean (Epogen (Esrd)) 10,000 units MoWeFr@17 SC Last administered on 17:32; Admin Dose 10,000 UNITS; Start 01/19/17 at 17:00 Lubiprostone (Amitiza) 24 mcg BID PO Last administered on 02/05/17 09:00; Admin Dose 24 MCG; Start 01/21/17 at 21:00 Ondansetron HCl (Zofran Inj) 4 mg Q4H PRN IV NAUSEA AND/OR VOMITING Last administered on 01/28/17 13:32; Admin Dose 4 MG; Start 01/24/17 at 13:30 IV Flush (NS 10 ml) 10 ml PRN PRN IV IV PROTOCOL; Start 01/27/17 at 15:00 Multivitamins Therapeutic (Theragran) 1 tab DAILY PO Last administered on 09:00; Admin Dose 1 TAB; Start 01/30/17 at 09:00 Lactulose (Enulose) 30 gm Q6 GTB Last administered on 02/04/17 17:26; Admin Dose 30 GM; Start 01/29/17 at 20:00 Insulin Glargine (Lantus) 32 unit DAILY@20 SC Last administered on 02/04/17 20 :18; Admin Dose 32 UNIT; Start 01/31/17 at 20:00 Hydroxyzine HCl (Atarax) 10 mg Q6H PRN PO ITCHING Last administered on 23:22; Admin Dose 10 MG; Start 02/01/17 at 17:30 Triamcinolone Acetonide (Kenalog 0.1% Oint) 1 applic BID TOP Last administered on 02/05/17 09:01; Admin Dose 1 APPLIC; Start 02/01/17 at 21:00 ANA MELENDEZ MD Feb 05, 2017 13:35
[2017-02-05 15:00] LABS: HAAIG REFLEX REFLEX FILED
--- NOTE | 2017-02-05 15:59 | PN ---
DATE: 02/05/2017 SUBJECTIVE DATA: The patient is lethargic, had mild headache earlier. Complains of lower abdominal pain. Urine is cloudy brown in color. OBJECTIVE DATA: Vital signs temperature 98.2, blood pressure 136/74. O2 saturation 97 percent on 3 liters nasal cannula. HEENT: Head is normocephalic. RESPIRATORY: Occasional wheezes. HEART: S1, S2 is heard. No rub or gallops. ABDOMEN: Obese. Mild suprapubic tenderness without rebound. EXTREMITIES: Decreased edema. FINAL OUTPUT: 150 mL of clear urine. LABORATORY: WBC 5.7, hematocrit 27.5, platelet count 77,000. Sodium 134, potassium 3.8, BUN 34, creatinine 6.2, glucose 146. IMPRESSION: 1. Chronic kidney disease with no significant improvement of renal function. 2. Cirrhosis with portal hypertension. Mild ascites. No evidence of hepatic encephalopathy. 3. Hyperlipidemia. 4. Hypertension. 5. Anemia and thrombocytopenia. 6. Obstructive sleep apnea. 7. Diabetes type 2. PLAN: To continue hemodialysis. Hematuria noted from the Dasilva catheter, so will flush the catheter. Followup on the urine culture. Increase activity. Dictated By: Ivan Brice MD /[email or web address] /Document#: [id number]
[2017-02-05 16:08] LABS: HEPATITIS B CORE ANTIBODY NEGATIVE (NEGATIVE)
--- NOTE | 2017-02-05 18:33 | CONS ---
Date/Time of Note Date/Time of Note DATE: 02/05/17 TIME: 18:33 Assessment/Plan Assessment/Plan Chief Complaint/Hosp Course 61-year-old male admitted for shortness of breath. Patient is a history of hepatitis C cirrhosis of liver, morbid obesity obstructive sleep apnea, diabetes mellitus and hypertension. Recent was brought to the emergency room for abdominal distention and shortness of breath. He was slightly nauseous. No GI bleeding no chest pain no or ASSOCIATE SPA DIRECTOR problem no fever no chills. Problems: Additional Assessment/Plan Additional Assessment/Plan Additional Assessment/Plan 1. Shortness of breath multifactorial, much better 2. Morbid obesity, patient lost 22 pounds 3. Cirrhosis of liver with portal hypertension 4. Mild ascites 5. Diabetes 6. Hypertension 7. Renal failure patient on dialysis 8. Anasarca, almost to resolved 11. Severe constipation, better 12. Profound weakness, second to dialysis 13. Encephalopathy, much better, and ammonia is back to normal 14 epistaxis, resolved 15. Sleep apnea Plan Continue with the lactulose and dialysis Rifaximin has been stopped Physical therapy and ambulate patient Patient is steadily losing weight Upon discharge patient will be [facility] at [facility] heel sprayer first Consultation Date/Type/Reason Admit Date/Time Jan 07, 2017 at 10:13 Initial Consult Date 01/09/17 Type of Consultation: renal Referring Provider: JENY MORA MD 24 HR Interval Summary Constitutional: improved Exam/Review of Systems Vital Signs Vitals Vital Signs Date Time Temp Pulse Resp B/P Pulse Ox O2 Delivery O2 Flow Rate FiO2 02/05/17 16:45 3.0 02/05/17 16:42 96 26 94 Nasal Cannula 21 02/05/17 13:51 98.2 116/63 Intake and Output 02/04/17 02/04/17 02/05/17 15:00 23:00 07:00 Intake Total 400 ml 360 ml 120 ml Output Total 100 ml 50 ml Balance 400 ml 260 ml 70 ml Exam Constitutional: alert, oriented, well developed Psych: nl mood/affect, no complaints Head: atraumatic, normocephalic Eyes: EOMI, PERRL, nl conjunctiva, nl lids, nl sclera ENMT: nl external ears & nose, nl lips & teeth, nl nasal mucosa & septum Neck: non-tender, supple Respiratory: clear to auscultation, normal air movement Cardiovascular: nl pulses, regular rate and rhythm Gastrointestinal: nl liver, spleen, non-tender, soft Musculoskeletal: nl extremities to inspection, nl gait and stance Extremities: normal pulses 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: ASSOCIATE SPA DIRECTOR II-XII intact, nl mental status, nl speech, nl strength Skin: nl turgor, No rash or lesions Lymph: nl lymph nodes Results Result Diagram: 02/05/17 0601 02/05/17 0559 Results 24 hrs Laboratory Tests Test 02/04/17 20:13 02/05/17 05:59 02/05/17 06:01 02/05/17 07:54 Bedside Glucose 167 146 Sodium Level 134 L Potassium Level 3.8 Chloride Level 95 L Carbon Dioxide Level 27 Anion Gap 16 Blood Urea Nitrogen 34 H Creatinine 6.21 H Glucose Level 147 Calcium Level 7.5 L Total Bilirubin 0.4 Direct Bilirubin 0.00 Indirect Bilirubin 0.4 Aspartate Amino Transf (AST/SGOT) 33 Alanine Aminotransferase (ALT/SGPT) 39 Alkaline Phosphatase 121 Total Protein 7.1 Albumin 2.5 L Globulin 4.60 H Albumin/Globulin Ratio 0.54 White Blood Count 4.7 L Red Blood Count 3.24 L Hemoglobin 8.4 L Hematocrit 27.5 L Mean Corpuscular Volume 84.9 Mean Corpuscular Hemoglobin 25.9 L Mean Corpuscular Hemoglobin Concent 30.5 L Red Cell Distribution Width 19.3 H Platelet Count 77 L Mean Platelet Volume 11.5 H Neutrophils % 66.6 Lymphocytes % 16.8 Monocytes % 9.4 Eosinophils % 6.4 Basophils % 0.4 Nucleated Red Blood Cells % 0.0 Neutrophils # 3.1 Lymphocytes # 0.8 Monocytes # 0.4 Eosinophils # 0.3 Basophils # 0.0 Nucleated Red Blood Cells # 0.0 Test 02/05/17 12:16 02/05/17 13:50 02/05/17 17:28 Bedside Glucose 135 170 Hepatitis B Surface Antigen NEGATIVE Hepatitis B Core Total Antibody NEGATIVE Hepatitis C Antibody REACTIVE H Medications Medications Current Medications Atorvastatin Calcium (Lipitor) 20 mg HS PO Last administered on 02/03/17t 21:14 ; Admin Dose 20 MG; Start 01/07/17 at 21:00; Status Future Hold Miscellaneous Information 1 ea NOTE XX ; Start 01/07/17 at 17:30 Glucose (Glutose) 15 gm Q15M PRN PO DECREASED GLUCOSE; Start 01/07/17 at 17:30 Glucose (Glutose) 22.5 gm Q15M PRN PO DECREASED GLUCOSE; Start 01/07/17 at 17: 30 Dextrose (D50w Syringe) 25 ml Q15M PRN IV DECREASED GLUCOSE; Start 01/07/17 at 17:30 Dextrose (D50w Syringe) 50 ml Q15M PRN IV DECREASED GLUCOSE; Start 01/07/17 at 17:30 Glucagon (Glucagen) 1 mg Q15M PRN IM DECREASED GLUCOSE; Start 01/07/17 at 17:30 Glucose (Glutose) 15 gm Q15M PRN BUCCAL DECREASED GLUCOSE; Start 01/07/17 at 17 :30 Nifedipine (Procardia Xl) 30 mg DAILY PO Last administered on 02/05/17 09:01; Admin Dose 30 MG; Start 01/08/17 at 09:00 Docusate Sodium (Colace) 100 mg BID PRN PO CONSTIPATION Last administered on 11:56; Admin Dose 100 MG; Start 01/08/17 at 14:00 Acetaminophen (Tylenol Tab) 500 mg Q6H PRN PO PAIN AND OR ELEVATED TEMP Last administered on 02/05/17 11:25; Admin Dose 500 MG; Start 01/08/17 at 15:30 Diagnostic Test (Pha) (Accu-Chek) 1 ea 02 XX Last administered on 01/31/17 02: 25; Admin Dose 1 EA; Start 01/15/17 at 02:00 Insulin Aspart 10 unit 10 unit ONCE PRN SC ELEVATED GLUCOSE Last administered on 01/21/17 02:15; Admin Dose 10 UNIT; Start 01/17/17 at 02:00 Sodium Chloride (1/2 NS) 1,000 ml @ 40 mls/hr Q24H IV Last administered on 01/18 21:32; Admin Dose 75 MLS/HR; Start 01/17/17 at 17:00; Status Future Hold Nitroglycerin (Nitroglycerin (Sl Tab) 0.4 Mg) 1 tab Q5M PRN SL ANGINA; Start at 21:30 Epoetin Sean (Epogen (Esrd)) 10,000 units MoWeFr@17 SC Last administered on 17:32; Admin Dose 10,000 UNITS; Start 01/19/17 at 17:00 Lubiprostone (Amitiza) 24 mcg BID PO Last administered on 02/05/17 09:00; Admin Dose 24 MCG; Start 01/21/17 at 21:00 Ondansetron HCl (Zofran Inj) 4 mg Q4H PRN IV NAUSEA AND/OR VOMITING Last administered on 01/28/17 13:32; Admin Dose 4 MG; Start 01/24/17 at 13:30 IV Flush (NS 10 ml) 10 ml PRN PRN IV IV PROTOCOL; Start 01/27/17 at 15:00 Multivitamins Therapeutic (Theragran) 1 tab DAILY PO Last administered on 09:00; Admin Dose 1 TAB; Start 01/30/17 at 09:00 Lactulose (Enulose) 30 gm Q6 GTB Last administered on 02/05/17 13:32; Admin Dose 30 GM; Start 01/29/17 at 20:00 Insulin Glargine (Lantus) 32 unit DAILY@20 SC Last administered on 02/04/17 20 :18; Admin Dose 32 UNIT; Start 01/31/17 at 20:00 Hydroxyzine HCl (Atarax) 10 mg Q6H PRN PO ITCHING Last administered on 23:22; Admin Dose 10 MG; Start 02/01/17 at 17:30 Triamcinolone Acetonide (Kenalog 0.1% Oint) 1 applic BID TOP Last administered on 02/05/17 09:01; Admin Dose 1 APPLIC; Start 02/01/17 at 21:00 STUART STANLEY MD Feb 05, 2017 18:33
--- NOTE | 2017-02-05 18:43 | CONS ---
Date/Time of Note Date/Time of Note DATE: 02/05/17 TIME: 18:23 Assessment/Plan Assessment/Plan Chief Complaint/Hosp Course Gross hematuria patient does have yeast infection in his urine. The patient is on hemodialysis. He has hypertension, diabetes type 2, liver cirrhosis with portal hypertension, dyslipidemia, history of encephalopathy and that has improved Problems: Additional Assessment/Plan Gross hematuria most likely related to infection and probably pulling of the Dasilva catheter. Also the fact that the patient has liver cirrhosis , he may have abnormal platelets and thrombocytopenia and all of these are factors in causing his bleeding. For now we will keep the Dasilva catheter in place. I did irrigate the Dasilva catheter and got few blood clots out of the bladder. Irrigated till the urine returned completely clear. Will monitor the color of the urine Consultation Date/Type/Reason Admit Date/Time Jan 07, 2017 at 10:13 Date of Consultation: Feb 05, 2017 Type of Consultation: Urology Reason for Consultation Gross hematuria Referring Provider: JENY MORA MD Hx of Present Illness 61-year-old male who is morbidly obese and has a history of cirrhosis of the liver with portal hypertension ,status post hepatitis C that was treated and who was admitted to the hospital because of shortness of breath. The patient does have multiple medical problems that include obesity, diabetes mellitus, liver cirrhosis, renal failure on dialysis for the past 2 weeks ,history of diastolic congestive heart failure ,obstructive sleep apnea, hypertension, anemia. He has been on dialysis and he was noticed to have gross hematuria in his Dasilva catheter yesterday so today a urological consultation was requested. The patient was on encephalopathic before but he is more clear now and awake. He still complains of some lower abdominal/suprapubic pain. He does have an indwelling Dasilva catheter that is draining blood-tinged urine but his urine output is very low. Patient had paracentesis on January 20, 2017 and 900 mL were drained Constitutional: improved, other (Lower abdominal pain), requiring O2 Eyes: no complaints ENT: no complaints Respiratory: no complaints, shortness of breath (But he improved the past few days) Cardiovascular: no complaints, No chest pain Gastrointestinal: pain (Lower abdomen), No nausea, No vomiting Genitourinary: hematuria, no complaints Musculoskeletal: no complaints Skin: no complaints Neurologic: no complaints, other (Was lethargic before but today he is more alert) Endocrine: no complaints, other (History of diabetes type 2) Psychological: nl mood/affect, no complaints Past Medical History Medical History: congestive heart failure, diabetes, hepatitis (Hepatitis C that was treated and apparently now not detectable), hypertension, renal disease (On hemodialysis), urinary tract infection (Yeast) Past Surgical History Past Surgical Hx: appendectomy, other (Paracentesis) Family History Significant Family History: no pertinent family hx Social History Alcohol Use: none Smoking Status: Former smoker Drug Use: none Exam/Review of Systems Vital Signs Vitals Vital Signs Date Time Temp Pulse Resp B/P Pulse Ox O2 Delivery O2 Flow Rate FiO2 02/05/17 16:45 3.0 02/05/17 16:42 96 26 94 Nasal Cannula 21 02/05/17 13:51 98.2 116/63 Intake and Output 02/04/17 02/04/17 02/05/17 15:00 23:00 07:00 Intake Total 400 ml 360 ml 120 ml Output Total 100 ml 50 ml Balance 400 ml 260 ml 70 ml Exam Constitutional: alert, oriented Psych: no complaints Head: normocephalic Eyes: nl conjunctiva ENMT: nl external ears & nose Neck: supple Respiratory: other (Mild dyspnea) Cardiovascular: No edema Gastrointestinal: bowel sounds, non-tender, soft Extremities: No calf tenderness Results Result Diagram: 02/05/17 0601 02/05/17 0559 Results 24 hrs Laboratory Tests Test 02/04/17 20:13 02/05/17 05:59 02/05/17 06:01 02/05/17 07:54 Bedside Glucose 167 146 Sodium Level 134 L Potassium Level 3.8 Chloride Level 95 L Carbon Dioxide Level 27 Anion Gap 16 Blood Urea Nitrogen 34 H Creatinine 6.21 H Glucose Level 147 Calcium Level 7.5 L Total Bilirubin 0.4 Direct Bilirubin 0.00 Indirect Bilirubin 0.4 Aspartate Amino Transf (AST/SGOT) 33 Alanine Aminotransferase (ALT/SGPT) 39 Alkaline Phosphatase 121 Total Protein 7.1 Albumin 2.5 L Globulin 4.60 H Albumin/Globulin Ratio 0.54 White Blood Count 4.7 L Red Blood Count 3.24 L Hemoglobin 8.4 L Hematocrit 27.5 L Mean Corpuscular Volume 84.9 Mean Corpuscular Hemoglobin 25.9 L Mean Corpuscular Hemoglobin Concent 30.5 L Red Cell Distribution Width 19.3 H Platelet Count 77 L Mean Platelet Volume 11.5 H Neutrophils % 66.6 Lymphocytes % 16.8 Monocytes % 9.4 Eosinophils % 6.4 Basophils % 0.4 Nucleated Red Blood Cells % 0.0 Neutrophils # 3.1 Lymphocytes # 0.8 Monocytes # 0.4 Eosinophils # 0.3 Basophils # 0.0 Nucleated Red Blood Cells # 0.0 Test 02/05/17 12:16 02/05/17 13:50 02/05/17 17:28 Bedside Glucose 135 170 Hepatitis B Surface Antigen NEGATIVE Hepatitis B Core Total Antibody NEGATIVE Hepatitis C Antibody REACTIVE H Medications Medications Current Medications Atorvastatin Calcium (Lipitor) 20 mg HS PO Last administered on 02/03/17 21:14 ; Admin Dose 20 MG; Start 01/07/17 at 21:00; Status Future Hold Miscellaneous Information 1 ea NOTE XX ; Start 01/07/17 at 17:30 Glucose (Glutose) 15 gm Q15M PRN PO DECREASED GLUCOSE; Start 01/07/17 at 17:30 Glucose (Glutose) 22.5 gm Q15M PRN PO DECREASED GLUCOSE; Start 01/07/17 at 17: 30 Dextrose (D50w Syringe) 25 ml Q15M PRN IV DECREASED GLUCOSE; Start 01/07/17 at 17:30 Dextrose (D50w Syringe) 50 ml Q15M PRN IV DECREASED GLUCOSE; Start 01/07/17 at 17:30 Glucagon (Glucagen) 1 mg Q15M PRN IM DECREASED GLUCOSE; Start 01/07/17 at 17:30 Glucose (Glutose) 15 gm Q15M PRN BUCCAL DECREASED GLUCOSE; Start 01/07/17 at 17 :30 Nifedipine (Procardia Xl) 30 mg DAILY PO Last administered on 02/05/17 09:01; Admin Dose 30 MG; Start 01/08/17 at 09:00 Docusate Sodium (Colace) 100 mg BID PRN PO CONSTIPATION Last administered on 11:56; Admin Dose 100 MG; Start 01/08/17 at 14:00 Acetaminophen (Tylenol Tab) 500 mg Q6H PRN PO PAIN AND OR ELEVATED TEMP Last administered on 02/05/17 11:25; Admin Dose 500 MG; Start 01/08/17 at 15:30 Diagnostic Test (Pha) (Accu-Chek) 1 ea 02 XX Last administered on 01/31/17 02: 25; Admin Dose 1 EA; Start 01/15/17 at 02:00 Insulin Aspart 10 unit 10 unit ONCE PRN SC ELEVATED GLUCOSE Last administered on 01/21/17 02:15; Admin Dose 10 UNIT; Start 01/17/17 at 02:00 Sodium Chloride (1/2 NS) 1,000 ml @ 40 mls/hr Q24H IV Last administered on 01/18 21:32; Admin Dose 75 MLS/HR; Start 01/17/17 at 17:00; Status Future Hold Nitroglycerin (Nitroglycerin (Sl Tab) 0.4 Mg) 1 tab Q5M PRN SL ANGINA; Start at 21:30 Epoetin Sean (Epogen (Esrd)) 10,000 units MoWeFr@17 SC Last administered on 17:32; Admin Dose 10,000 UNITS; Start 01/19/17 at 17:00 Lubiprostone (Amitiza) 24 mcg BID PO Last administered on 02/05/17 09:00; Admin Dose 24 MCG; Start 01/21/17 at 21:00 Ondansetron HCl (Zofran Inj) 4 mg Q4H PRN IV NAUSEA AND/OR VOMITING Last administered on 01/28/17 13:32; Admin Dose 4 MG; Start 01/24/17 at 13:30 IV Flush (NS 10 ml) 10 ml PRN PRN IV IV PROTOCOL; Start 01/27/17 at 15:00 Multivitamins Therapeutic (Theragran) 1 tab DAILY PO Last administered on 09:00; Admin Dose 1 TAB; Start 01/30/17 at 09:00 Lactulose (Enulose) 30 gm Q6 GTB Last administered on 02/05/17 13:32; Admin Dose 30 GM; Start 01/29/17 at 20:00 Insulin Glargine (Lantus) 32 unit DAILY@20 SC Last administered on 02/04/17 20 :18; Admin Dose 32 UNIT; Start 01/31/17 at 20:00 Hydroxyzine HCl (Atarax) 10 mg Q6H PRN PO ITCHING Last administered on 23:22; Admin Dose 10 MG; Start 02/01/17 at 17:30 Triamcinolone Acetonide (Kenalog 0.1% Oint) 1 applic BID TOP Last administered on 02/05/17t 09:01; Admin Dose 1 APPLIC; Start 02/01/17 at 21:00 KIMMY EDWARDS MD Feb 05, 2017 18:34
[2017-02-05] MEDS: INSULIN GLARGINE [LANtus] 3 ML PEN SC SCH (20:50)
[2017-02-06] MEDS: ACCU-CHEK XX SCH (02:00)
[2017-02-06 02:01] VITALS: BP 116/56; RESP 20
--- NOTE | 2017-02-06 05:30 | PN ---
DATE: 02/04/2017 SUBJECTIVE DATA: Patient has been transferred to the medical floor. Appears lethargic today. Noted to have brownish colored urine. OBJECTIVE DATA: VITAL SIGNS: T-max is 98.2, blood pressure 114/57, O2 sat 94 percent on 2 L. CHEST: Clear anteriorly. HEART: S1, S2. No definite gallops. ABDOMEN: Soft, obese. EXTREMITIES: Trace edema. No asterixis. LABORATORY AND DIAGNOSTIC DATA: WBC count 5.2, hematocrit 28.4, platelet count 77,000. Sodium 137, potassium 3.6, BUN 26, creatinine 5.14, magnesium 2.1, glucose 143 and 138 today. IMPRESSION: 1. Low-grade fever. Concern about possible urinary tract infection. We will get UA and VASCULAR SURGEON. 2. Cirrhosis with portal hypertension. Hepatic encephalopathy resolved. 3. Acute on chronic renal failure. 4. Emesis of bacteremia, resolved. 5. Obstructive sleep apnea. PLAN: We will continue physical therapy. Mobilize. Encourage patient to eat a little bit more. Observe for any signs of infection and treat accordingly. We will discuss with Dr. Castro. Dictated By: Ivan Brice MD /[email or web address] /Document#: [id number]
[2017-02-06] MEDS: LACTULOSE 30ML CUP GTB SCH ×3 (06:20→17:33)
[2017-02-06 06:43] LABS: ABNORMAL IP MESSAGE 1; BASOPHILS % 0.5 % (0.0-2.0); EOSINOPHILS # 0.3 10^3/ul (0.0-0.5); EOSINOPHILS % 6.1 % (0.0-7.0); HEMATOCRIT 27.7 % (42.0-52.0); HEMOGLOBIN 8.6 g/dl (14.0-18.0); LYMPHOCYTES # 0.8 10^3/ul (0.8-2.9); LYMPHOCYTES % 18.4 % (15.0-51.0); MEAN CORPUSCULAR HEMOGLOBIN 26.8 pg (29.0-33.0); MEAN CORPUSCULAR VOLUME 86.3 fl (82.0-101.0); MEAN PLATELET VOLUME 11.7 fl (7.4-10.4); MONOCYTE # 0.4 10^3/ul (0.3-0.9); MONOCYTES % 9.8 % (0.0-11.0); NEUTROPHIL # 2.9 10^3/ul (1.6-7.5); NEUTROPHILS % 64.7 % (39.0-77.0); PLATELET COUNT 91 10^3/UL (140-415); POSITIVE DIFF @See below; RED BLOOD COUNT 3.21 10^6/ul (4.70-6.10); RED CELL DISTRIBUTION WIDTH 19.1 % (11.5-14.5); WHITE BLOOD COUNT 4.4 10^3/ul (4.8-10.8)
[2017-02-06 07:21] LABS: CALCIUM 8.3 mg/dl (8.4-10.2); CREATININE 5.14 mg/dl (0.61-1.24); POTASSIUM 3.7 mmol/L (3.5-5.1)
[2017-02-06 07:31] VITALS: BP 135/66; RESP 18
[2017-02-06] MEDS: ALBUTEROL/IPRATROPIUM (NEB) 3 ML AMP HHN SCH ×4 (08:03→20:11)
[2017-02-06] MEDS: MULTIVITAMINS THERAPEUTIC TAB PO SCH (08:05)
[2017-02-06] MEDS: LUBIPROSTONE 24 MCG CAP PO SCH ×2 (08:05→20:32)
[2017-02-06] MEDS: INSULIN ASPART [NOVOLOG] 3 ML PEN SC SCH ×4 (08:05→20:42)
[2017-02-06] MEDS: TRIAMCINOLONE ACET 0.1% 15 GM OINT TOP SCH ×2 (08:06→20:32)
[2017-02-06] MEDS: NIFEdipine (XL) 30 MG TAB PO SCH (08:06)
--- NOTE | 2017-02-06 08:16 | PN ---
DATE: 01/26/2017 SUBJECTIVE: The patient is very lethargic with occasional shortness of breath. Complains of abdominal discomfort. He did have a bowel movement today. PHYSICAL EXAMINATION: VITAL SIGNS: Temperature 98.2, blood pressure 118/60, O2 sat 96 percent. Mild pallor without cyanosis. CHEST: Clear anteriorly. HEART: S1, S2. No gallop. ABDOMEN: Obese, soft, nontender. EXTREMITIES: 1+ edema. Homans negative. LABORATORY: WBC count 11.2, hematocrit 28.1, platelet count 82,000. Sodium 151, potassium 4.1, BUN 61, creatinine 3.49. Input 1300, output 1800. IMPRESSION: 1. Cirrhosis with portal hypertension and hepatic encephalopathy. 2. Morbid obesity. 3. Diabetes type 2. 4. Chronic kidney disease with recent worsening. Hemodialysis today. 5. Anemia. 6. Thrombocytopenia. 7. Emesis. 8. Bacteremia. PLAN: The patient's intake is very poor. I have discussed with nursing and the patient's family. I saw the patient. Already started the patient on Glucerna. I have also requested Dr. Heath to evaluate patient for possible mixed cryoglobulinemia, the results of which are all pending at this time. The patient has poor access for IV. Request PICC line placement. Dictated By: Ivan Brice MD /[email or web address]/rich /Document#: [id number]
--- NOTE | 2017-02-06 09:00 | PN ---
DATE: 01/29/2017 SUBJECTIVE DATA: The patient is lethargic presently. Per nursing, patient ambulated to the bathroom. He was more responsive earlier. OBJECTIVE DATA: VITAL SIGNS: Temperature 98.2, blood pressure 105/58, O2 sat 97 percent. HEENT: Head normocephalic. Mild pallor with cyanosis. RESPIRATORY: Decreased breath sounds at the bases. CARDIAC: S1, S2. No definite gallops. ABDOMEN: Morbid obesity. Nontender. EXTREMITIES: Decreased edema. LABORATORY AND DIAGNOSTIC DATA: I and O intake is 1360, output 850. WBC count 10.3, hematocrit 26.5, platelet count is 53,000. Sodium 140, potassium 3.8, BUN 37, creatinine 3.95, glucose 186 and 176 today. IMPRESSION: 1. Cirrhosis with portal hypertension with hyperammonemia with hepatic encephalopathy. Improved with the lactulose. 2. Obstructive sleep apnea with restrictive lung disease with an element of asthmatic component. 3. Diabetes mellitus type 2. 4. Chronic kidney disease with recent worsening. Patient was dialyzed yesterday and due to be dialyzed tomorrow. PLAN: Continue lactulose. Monitor fluid and electrolyte balance, renal function and ammonia levels. Diabetes better controlled, p.o. intake is improving. The patient is also thrombocytopenic. We will closely monitor platelet levels. Observe for signs of bleeding. Dictated By: Ivan Brice MD /[email or web address]/ /Document#: [id number]
--- NOTE | 2017-02-06 09:06 | PN ---
DATE: 01/30/2017 SUBJECTIVE: The patient is awake and alert, responding appropriately to questions. OBJECTIVE DATA: VITAL SIGNS: Temperature 98.5, blood pressure 120/64, respiratory 20 per minute. HEENT: Head normocephalic. Moderate pallor. RESPIRATORY: Clear anteriorly. RESPIRATORY: Heart is S1, S2. No murmurs. ABDOMEN: Abdomen is obese, nontender. EXTREMITIES: Decreased edema. Homans is negative. LABORATORY AND DIAGNOSTIC DATA: WBC count 10.2, hematocrit 27.5, platelet count 51,000. Blood glucose level today 205, 187, 189, BUN 37, creatinine 3.95 IMPRESSION: Overall clinical improvement. 1. Cirrhosis with portal hypertension with hepatic encephalopathy, improving. 2. Thrombocytopenia with anemia. 3. Chronic kidney disease with recent exacerbation of renal function, on hemodialysis. 4. Obstructive sleep apnea. 5. Diabetes mellitus type 2, better. PLAN: We will continue hemodialysis per Dr. Castro. Advised patient to increase activity. Encouraged p.o. intake. Follow renal function. Dictated By: Ivan Brice MD /[email or web address]/ /Document#: [id number]
--- NOTE | 2017-02-06 09:12 | PN ---
DATE: 02/02/2017 SUBJECTIVE: The patient overall feels better from shortness of breath. No hemoptysis or epistaxis. OBJECTIVE DATA: VITAL SIGNS: Temperature 99, blood pressure 112/55, and O2 sat 94 percent. SKIN: Mild pallor with cyanosis. CHEST: Clear anteriorly. HEART: S1, S2. No rub or gallops. ABDOMEN: Obese and nontender. No hepatosplenomegaly. EXTREMITIES: Decreased edema. Homans' sign is negative. I AND O: Input 3800 and output 1650. Urine output is only 150 cc. LABORATORY: Ammonia is less than 9. Glucose 154 and 145 today. BUN 28, creatinine 5.24, potassium 3.2, platelet count 7900, hematocrit 28, and WBC count 1.3. IMPRESSION: 1. Status post epistaxis resolved after packing. 2. Thrombocytopenia improved. 3. Anemia status post packed red blood cell (PRBC) transfusion. 4. Chronic kidney disease. 5. Diabetes mellitus type 2. 6. Morbid obesity. 7. Portal hypertension. 8. Hepatic encephalopathy, resolving. PLAN: We will continue dialysis per Dr. Castro. Increased physical activity. Closely follow along. Dictated By: Ivan Brice MD /[email or web address]/preston /Document#: [id number]
--- NOTE | 2017-02-06 11:55 | CONS ---
Date/Time of Note Date/Time of Note DATE: 02/06/17 TIME: 11:21 Assessment/Plan Assessment/Plan Chief Complaint/Hosp Course Impression: 1. Chronic kidney disease. He has had chronic kidney disease for at least a year and a half according to his primary care physician. His serum creatinine was around 1.8 to 2 prior to coming into the hospital. Since being hospitalized it has increased. He is now requiring hemodialysis. He does have nephrotic range proteinuria and I suspect he has underlying chronic glomerulonephritis possibly related to his hepatitis C. I told the patient and his today that I think he will need ongoing chronic hemodialysis. I told her we should make arrangements for outpatient hemodialysis. The patient continues to be very weak. I recommended that he go to a rehabilitation/SNF for physical therapy after discharge from the hospital. I discussed this with the patient's . I also gave her a referral to [facility] liver transplant. I specifically gave her the name of a liver specialist Dr. Sang Tobias for evaluation and treatment. He has been getting dialyzed Thursday. I will order hemodialysis for tomorrow. 2. 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 He has been treated for hepatitis C virus in 2013 and according to his he has been negative for hepatitis C on 3 or 4 blood tests another hepatitis C has been ordered.. 3. Hypertension 4. Hyperlipidemia 5. Anemia, 6. Congestive heart failure . He has lost a substantial amount of fluid with dialysis. His weight has decreased 25 kg since being in the hospital. I am sure most of this is fluid removal. He seems overall better and his congestive heart failure is improved.. 7. Obstructive sleep apnea 8. Altered level of consciousness/hepatic encephalopathy, his ammonia level is back to normal and he is more awake and alert. He seems more alert and he does not have any asterixis. Continue current treatment for hepatic encephalopathy. 9. Rash possibly due to rifaximin. This was discontinued. 10. Gross hematuria. He has been getting bladder irrigation. Problems: Consultation Date/Type/Reason Admit Date/Time Jan 07, 2017 at 10:13 Initial Consult Date 01/19/17 Type of Consultation: Urology Referring Provider: JENY MORA MD 24 HR Interval Summary Free Text/Dictation Patient is in bed today. He is lethargic. He does respond some to verbal stimuli. His is in the room with him. The patient is not eating very much. Constitutional: no complaints, poor po Exam/Review of Systems Vital Signs Vitals Vital Signs Date Time Temp Pulse Resp B/P Pulse Ox O2 Delivery O2 Flow Rate FiO2 02/06/17 08:00 Nasal Cannula 3.0 02/06/17 07:31 98.2 92 18 135/66 93 02/05/17 20:47 28 Intake and Output 02/05/17 02/05/17 02/06/17 14:59 22:59 06:59 Intake Total 300 ml 490 ml 240 ml Output Total 4300 ml 100 ml 150 ml Balance -4000 ml 390 ml 90 ml Exam He continues to be very lethargic and weak. He is in bed now. Psych: no complaints Respiratory: clear to auscultation, diminished breath sounds Cardiovascular: regular rate and rhythm Gastrointestinal: distended, non-tender, soft Extremities: edema Results Result Diagram: 02/06/17 0534 02/06/17 0534 Results 24 hrs Laboratory Tests Test 02/05/17 12:16 02/05/17 13:50 02/05/17 15:00 02/05/17 17:28 Bedside Glucose 135 170 Hepatitis B Surface Antigen NEGATIVE Hepatitis B Core Total Antibody NEGATIVE Hepatitis C Antibody REACTIVE H Hepatitis A IgM Antibody NON-REACTIVE Test 02/05/17 20:34 02/06/17 05:34 02/06/17 08:05 Bedside Glucose 156 135 White Blood Count 4.4 L Red Blood Count 3.21 L Hemoglobin 8.6 L Hematocrit 27.7 L Mean Corpuscular Volume 86.3 Mean Corpuscular Hemoglobin 26.8 L Mean Corpuscular Hemoglobin Concent 31.0 L Red Cell Distribution Width 19.1 H Platelet Count 91 L Mean Platelet Volume 11.7 H Neutrophils % 64.7 Lymphocytes % 18.4 Monocytes % 9.8 Eosinophils % 6.1 Basophils % 0.5 Nucleated Red Blood Cells % 0.0 Neutrophils # 2.9 Lymphocytes # 0.8 Monocytes # 0.4 Eosinophils # 0.3 Basophils # 0.0 Nucleated Red Blood Cells # 0.0 Sodium Level 136 Potassium Level 3.7 Chloride Level 97 Carbon Dioxide Level 29 Anion Gap 14 Blood Urea Nitrogen 25 H Creatinine 5.14 H Glucose Level 121 Calcium Level 8.3 L Medications Medications Current Medications Atorvastatin Calcium (Lipitor) 20 mg HS PO Last administered on 02/03/17 21:14 ; Admin Dose 20 MG; Start 01/07/17 at 21:00; Status Future Hold Miscellaneous Information 1 ea NOTE XX ; Start 01/07/17 at 17:30 Glucose (Glutose) 15 gm Q15M PRN PO DECREASED GLUCOSE; Start 01/07/17 at 17:30 Glucose (Glutose) 22.5 gm Q15M PRN PO DECREASED GLUCOSE; Start 01/07/17 at 17: 30 Dextrose (D50w Syringe) 25 ml Q15M PRN IV DECREASED GLUCOSE; Start 01/07/17 at 17:30 Dextrose (D50w Syringe) 50 ml Q15M PRN IV DECREASED GLUCOSE; Start 01/07/17 at 17:30 Glucagon (Glucagen) 1 mg Q15M PRN IM DECREASED GLUCOSE; Start 01/07/17 at 17:30 Glucose (Glutose) 15 gm Q15M PRN BUCCAL DECREASED GLUCOSE; Start 01/07/17 at 17 :30 Nifedipine (Procardia Xl) 30 mg DAILY PO Last administered on 02/06/17 08:06; Admin Dose 30 MG; Start 01/08/17 at 09:00 Docusate Sodium (Colace) 100 mg BID PRN PO CONSTIPATION Last administered on 11:56; Admin Dose 100 MG; Start 01/08/17 at 14:00 Acetaminophen (Tylenol Tab) 500 mg Q6H PRN PO PAIN AND OR ELEVATED TEMP Last administered on 02/05/17 11:25; Admin Dose 500 MG; Start 01/08/17 at 15:30 Diagnostic Test (Pha) (Accu-Chek) 1 ea 02 XX Last administered on 01/31/17 02: 25; Admin Dose 1 EA; Start 01/15/17 at 02:00 Insulin Aspart 10 unit 10 unit ONCE PRN SC ELEVATED GLUCOSE Last administered on 01/21/17 02:15; Admin Dose 10 UNIT; Start 01/17/17 at 02:00 Sodium Chloride (1/2 NS) 1,000 ml @ 40 mls/hr Q24H IV Last administered on 01/18 21:32; Admin Dose 75 MLS/HR; Start 01/17/17 at 17:00; Status Future Hold Nitroglycerin (Nitroglycerin (Sl Tab) 0.4 Mg) 1 tab Q5M PRN SL ANGINA; Start at 21:30 Epoetin Sean (Epogen (Esrd)) 10,000 units MoWeFr@17 SC Last administered on 17:32; Admin Dose 10,000 UNITS; Start 01/19/17 at 17:00 Lubiprostone (Amitiza) 24 mcg BID PO Last administered on 02/06/17 08:05; Admin Dose 24 MCG; Start 01/21/17 at 21:00 Ondansetron HCl (Zofran Inj) 4 mg Q4H PRN IV NAUSEA AND/OR VOMITING Last administered on 01/28/17 13:32; Admin Dose 4 MG; Start 01/24/17 at 13:30 IV Flush (NS 10 ml) 10 ml PRN PRN IV IV PROTOCOL; Start 01/27/17 at 15:00 Multivitamins Therapeutic (Theragran) 1 tab DAILY PO Last administered on 08:05; Admin Dose 1 TAB; Start 01/30/17 at 09:00 Lactulose (Enulose) 30 gm Q6 GTB Last administered on 02/06/17 06:20; Admin Dose 30 GM; Start 01/29/17 at 20:00 Insulin Glargine (Lantus) 32 unit DAILY@20 SC Last administered on 02/05/17 20 :50; Admin Dose 32 UNIT; Start 01/31/17 at 20:00 Hydroxyzine HCl (Atarax) 10 mg Q6H PRN PO ITCHING Last administered on 23:22; Admin Dose 10 MG; Start 02/01/17 at 17:30 Triamcinolone Acetonide (Kenalog 0.1% Oint) 1 applic BID TOP Last administered on 02/06/17 08:06; Admin Dose 1 APPLIC; Start 02/01/17 at 21:00 ANA MELENDEZ MD Feb 06, 2017 11:34
--- NOTE | 2017-02-06 11:55 | CONS ---
Date/Time of Note Date/Time of Note DATE: 02/06/17 TIME: 11:52 Assessment/Plan Assessment/Plan Chief Complaint/Hosp Course 1)Liver cirrhosis with portal HTN due to Hep C to repeat ammonia level 01/21 - ammonia level is mildly elevated at 57 consider lacutlose 01/26 - pt getting lactulose due to rising ammonia level but so far no BM's 01/27 - pt had one BM yesterday only will re-check ammonia level consider increasing lacutulose dose, pt also on rifaximin 01/29 - ammonia level is decreasing 02/04 - will repeat Hep C RNA 2) CHF +/- pneumonia unable to tolerate lasix with worsening renal function 01/21 - in light of MSSA in blood and no open wounds or chronic IV in place, concern would be lung may be the portal of entry to start zosyn to cover for lung infection as well as the MSSA CXR does not show a lobar infiltrate 01/22 - continue with zosyn 01/23 - beta d glucan to look for invasive fungal disease was negative continue with zosyn 01/24 - stable on zosyn wbc is back to normal 01/26 - stable, WBC minimal elevated pt would likely benefit from a blood tx 01/29 - pt has completed his course for pneumonia d/c zosyn and start ceftriaxone for continued treatment of his MSSA bacteremia 01/30 - breathing is stable off zosyn and only on ceftriaxone 02/02 - allergic drug reaction so will stop ceftriaxone and go to iv vanco 3) r/o SBP pt to get paracentesis later today cefotaxime was started by the primary if fevers not improving will broaden the coverage 01/20 - pt to get paracentesis today continue with cefotaxime 01/21 - low number of PMN's in ascitic fluid, this in not the source for his MSSA d/c cefotaxime 4) new onset fever with leukocytosis pt has been on steroids but this does not explain the new fever the potential sources would include, ascitic fluid, lung urinalysis does not suggest an infection will order beta d glucan, aspergillus galactomannan, procalcitonin in a.m. will order LE dopplers to make sure no DVT has developed if cefotaxime does not improve his fever, wbc then will broaden coverage to include lung infection 01/20 - await paracentesis and a.m. labs vanco added due to GPC in blood cx fevers appear improved 01/21 - MSSA is present in blood and urine cx u/a did not show signs of infection and so the urine may only be seeded from the bacteremia will order repeat u/a at this time d/c vanco/cefotaxime and start zosyn since there is no skin breakdown or ulcers the lung becomes a more likely portal of entry 01/22 - fevers resolved continue with zosyn for bacteremia and possible pneumonia 5) MSSA bacteremia 01/20 - no central line in place, IV sites look ok await ID to see if true infection or a contaminant vanco started, will order repeat blood cx now 01/21 - true infection of blood with MSSA repeat blood cx from 01/20 is NGTD d/c vanco/cefotaxime and start zosyn check u/a 01/22 - MSSA in one set from 01/20 repeat blood cx today pt needs dialysis and likely he is no longer bacteremic so ok for dialysis line but if pt remains bacteremic it will need to be replaced 01/23 - pt to get dialysis line today and likely HD afterwards continue with zosyn 01/24 - repeat blood cx from 01/22 remain NGTD wbc is back to normal anticipate a 4 week course of treatment for this, will eventually change zosyn to ceftriaxone 01/26 - consider blood tx to help with effectiveness of antibiotics 01/27 - repeat blood cx remain neg from 01/22 and 01/25 01/29 - changed to ceftriaxone and continue thru 02/16/1701/30 - tolerating ceftriaxone, continue thru 02/16/1702/02 - due to rash will change ceftriaxone to vanco and continue vanco thru 02/04 - pt tolerating vanco 02/06 - continue vanco thru 02/16 6) anemia 01/26 - when pt does have a BM will get hemoccult to see if pt will need prophylaxis for SBP consider blood tx 7) allergic drug reaction (02/02/17) likely culprits would be rifaximin, prior zosyn or current ceftriaxone d/c ceftriaxone and rifaximin and start IV vanco 02/04 - rash is improved 8) candiduria with pyuria/hematuria 02/06 - start short course of po diflucan Problems: Consultation Date/Type/Reason Admit Date/Time Jan 07, 2017 at 10:13 Initial Consult Date 01/19/17 Type of Consultation: ID Referring Provider: JENY MORA MD 24 HR Interval Summary Free Text/Dictation pt asleep, spoke to family no N, V, D today, one stool today had some bleeding into the urine, seen my urology mentation ok according to the not eating much though Exam/Review of Systems Vital Signs Vitals Vital Signs Date Time Temp Pulse Resp B/P Pulse Ox O2 Delivery O2 Flow Rate FiO2 02/06/17 08:00 Nasal Cannula 3.0 02/06/17 07:31 98.2 92 18 135/66 93 02/05/17 20:47 28 Intake and Output 02/05/17 02/05/17 02/06/17 15:00 23:00 07:00 Intake Total 300 ml 490 ml 240 ml Output Total 4300 ml 100 ml 150 ml Balance -4000 ml 390 ml 90 ml Exam Head: normocephalic Respiratory: clear to auscultation Cardiovascular: regular rate and rhythm Gastrointestinal: non-tender, soft Results Result Diagram: 02/06/17 0534 02/06/17 0534 Results 24 hrs Laboratory Tests Test 02/05/17 12:16 02/05/17 13:50 02/05/17 15:00 02/05/17 17:28 Bedside Glucose 135 170 Hepatitis B Surface Antigen NEGATIVE Hepatitis B Core Total Antibody NEGATIVE Hepatitis C Antibody REACTIVE H Hepatitis A IgM Antibody NON-REACTIVE Test 02/05/17 20:34 02/06/17 05:34 02/06/17 08:05 Bedside Glucose 156 135 White Blood Count 4.4 L Red Blood Count 3.21 L Hemoglobin 8.6 L Hematocrit 27.7 L Mean Corpuscular Volume 86.3 Mean Corpuscular Hemoglobin 26.8 L Mean Corpuscular Hemoglobin Concent 31.0 L Red Cell Distribution Width 19.1 H Platelet Count 91 L Mean Platelet Volume 11.7 H Neutrophils % 64.7 Lymphocytes % 18.4 Monocytes % 9.8 Eosinophils % 6.1 Basophils % 0.5 Nucleated Red Blood Cells % 0.0 Neutrophils # 2.9 Lymphocytes # 0.8 Monocytes # 0.4 Eosinophils # 0.3 Basophils # 0.0 Nucleated Red Blood Cells # 0.0 Sodium Level 136 Potassium Level 3.7 Chloride Level 97 Carbon Dioxide Level 29 Anion Gap 14 Blood Urea Nitrogen 25 H Creatinine 5.14 H Glucose Level 121 Calcium Level 8.3 L Medications Medications Current Medications Atorvastatin Calcium (Lipitor) 20 mg HS PO Last administered on 02/03/17 21:14 ; Admin Dose 20 MG; Start 01/07/17 at 21:00; Status Future Hold Miscellaneous Information 1 ea NOTE XX ; Start 01/07/17 at 17:30 Glucose (Glutose) 15 gm Q15M PRN PO DECREASED GLUCOSE; Start 01/07/17 at 17:30 Glucose (Glutose) 22.5 gm Q15M PRN PO DECREASED GLUCOSE; Start 01/07/17 at 17: 30 Dextrose (D50w Syringe) 25 ml Q15M PRN IV DECREASED GLUCOSE; Start 01/07/17 at 17:30 Dextrose (D50w Syringe) 50 ml Q15M PRN IV DECREASED GLUCOSE; Start 01/07/17 at 17:30 Glucagon (Glucagen) 1 mg Q15M PRN IM DECREASED GLUCOSE; Start 01/07/17 at 17:30 Glucose (Glutose) 15 gm Q15M PRN BUCCAL DECREASED GLUCOSE; Start 01/07/17 at 17 :30 Nifedipine (Procardia Xl) 30 mg DAILY PO Last administered on 02/06/17 08:06; Admin Dose 30 MG; Start 01/08/17 at 09:00 Docusate Sodium (Colace) 100 mg BID PRN PO CONSTIPATION Last administered on 11:56; Admin Dose 100 MG; Start 01/08/17 at 14:00 Acetaminophen (Tylenol Tab) 500 mg Q6H PRN PO PAIN AND OR ELEVATED TEMP Last administered on 02/05/17 11:25; Admin Dose 500 MG; Start 01/08/17 at 15:30 Diagnostic Test (Pha) (Accu-Chek) 1 ea 02 XX Last administered on 01/31/17 02: 25; Admin Dose 1 EA; Start 01/15/17 at 02:00 Insulin Aspart 10 unit 10 unit ONCE PRN SC ELEVATED GLUCOSE Last administered on 01/21/17 02:15; Admin Dose 10 UNIT; Start 01/17/17 at 02:00 Sodium Chloride (1/2 NS) 1,000 ml @ 40 mls/hr Q24H IV Last administered on 01/18 21:32; Admin Dose 75 MLS/HR; Start 01/17/17 at 17:00; Status Future Hold Nitroglycerin (Nitroglycerin (Sl Tab) 0.4 Mg) 1 tab Q5M PRN SL ANGINA; Start at 21:30 Epoetin Sean (Epogen (Esrd)) 10,000 units MoWeFr@17 SC Last administered on 17:32; Admin Dose 10,000 UNITS; Start 01/19/17 at 17:00 Lubiprostone (Amitiza) 24 mcg BID PO Last administered on 02/06/17 08:05; Admin Dose 24 MCG; Start 01/21/17 at 21:00 Ondansetron HCl (Zofran Inj) 4 mg Q4H PRN IV NAUSEA AND/OR VOMITING Last administered on 01/28/17 13:32; Admin Dose 4 MG; Start 01/24/17 at 13:30 IV Flush (NS 10 ml) 10 ml PRN PRN IV IV PROTOCOL; Start 01/27/17 at 15:00 Multivitamins Therapeutic (Theragran) 1 tab DAILY PO Last administered on 08:05; Admin Dose 1 TAB; Start 01/30/17 at 09:00 Lactulose (Enulose) 30 gm Q6 GTB Last administered on 02/06/17 06:20; Admin Dose 30 GM; Start 01/29/17 at 20:00 Insulin Glargine (Lantus) 32 unit DAILY@20 SC Last administered on 02/05/17 20 :50; Admin Dose 32 UNIT; Start 01/31/17 at 20:00 Hydroxyzine HCl (Atarax) 10 mg Q6H PRN PO ITCHING Last administered on 23:22; Admin Dose 10 MG; Start 02/01/17 at 17:30 Triamcinolone Acetonide (Kenalog 0.1% Oint) 1 applic BID TOP Last administered on 02/06/17 08:06; Admin Dose 1 APPLIC; Start 02/01/17 at 21:00 Fluconazole (Diflucan) 100 mg DAILY PO ; Start 02/06/17 at 12:00; Status UNV DANYEL HART MD Feb 06, 2017 11:55
[2017-02-06] MEDS: FLUCONAZOLE 100 MG TAB PO SCH (12:01)
--- NOTE | 2017-02-06 12:04 | CONS ---
Date/Time of Note Date/Time of Note DATE: 02/06/17 TIME: 12:03 Assessment/Plan Assessment/Plan Chief Complaint/Hosp Course 61-year-old male admitted for shortness of breath. Patient is a history of hepatitis C cirrhosis of liver, morbid obesity obstructive sleep apnea, diabetes mellitus and hypertension. Recent was brought to the emergency room for abdominal distention and shortness of breath. He was slightly nauseous. 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 Problems: Additional Assessment/Plan 1. Shortness of breath multifactorial, much better 2. Morbid obesity, patient lost 22 pounds 3. Cirrhosis of liver with portal hypertension 4. Mild ascites 5. Diabetes 6. Hypertension 7. Renal failure patient on dialysis 8. Anasarca, almost to resolved 11. Severe constipation, better 12. Profound weakness, second to dialysis 13. Encephalopathy, much better, and ammonia is back to normal 14 epistaxis, resolved 15. Sleep apnea 16. Hematuria Plan Continue with the lactulose and dialysis Rifaximin has been stopped Physical therapy and ambulate patient Patient is steadily losing weight Upon discharge patient will be followed at [facility] by network services project manager Consultation Date/Type/Reason Admit Date/Time Jan 07, 2017 at 10:13 Initial Consult Date 01/09/17 Type of Consultation: ID Referring Provider: JENY MORA MD 24 HR Interval Summary Free Text/Dictation Hematuria and reduced urine output Exam/Review of Systems Vital Signs Vitals Vital Signs Date Time Temp Pulse Resp B/P Pulse Ox O2 Delivery O2 Flow Rate FiO2 02/06/17 08:00 Nasal Cannula 3.0 02/06/17 07:31 98.2 92 18 135/66 93 02/05/17 20:47 28 Intake and Output 02/05/17 02/05/17 02/06/17 15:00 23:00 07:00 Intake Total 300 ml 490 ml 240 ml Output Total 4300 ml 100 ml 150 ml Balance -4000 ml 390 ml 90 ml Exam Constitutional: alert, oriented, well developed Psych: nl mood/affect, no complaints Head: atraumatic, normocephalic Eyes: EOMI, PERRL, nl conjunctiva, nl lids, nl sclera ENMT: nl external ears & nose, nl lips & teeth, nl nasal mucosa & septum Neck: non-tender, supple Respiratory: clear to auscultation, normal air movement Cardiovascular: nl pulses, regular rate and rhythm Gastrointestinal: nl liver, spleen, non-tender, soft Musculoskeletal: nl extremities to inspection, nl gait and stance Extremities: normal pulses 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: 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 intact, nl mental status, nl speech, nl strength Skin: nl turgor, No rash or lesions Lymph: nl lymph nodes Results Result Diagram: 02/06/17 0534 02/06/17 0534 Results 24 hrs Laboratory Tests Test 02/05/17 12:16 02/05/17 13:50 02/05/17 15:00 02/05/17 17:28 Bedside Glucose 135 170 Hepatitis B Surface Antigen NEGATIVE Hepatitis B Core Total Antibody NEGATIVE Hepatitis C Antibody REACTIVE H Hepatitis A IgM Antibody NON-REACTIVE Test 02/05/17 20:34 02/06/17 05:34 02/06/17 08:05 Bedside Glucose 156 135 White Blood Count 4.4 L Red Blood Count 3.21 L Hemoglobin 8.6 L Hematocrit 27.7 L Mean Corpuscular Volume 86.3 Mean Corpuscular Hemoglobin 26.8 L Mean Corpuscular Hemoglobin Concent 31.0 L Red Cell Distribution Width 19.1 H Platelet Count 91 L Mean Platelet Volume 11.7 H Neutrophils % 64.7 Lymphocytes % 18.4 Monocytes % 9.8 Eosinophils % 6.1 Basophils % 0.5 Nucleated Red Blood Cells % 0.0 Neutrophils # 2.9 Lymphocytes # 0.8 Monocytes # 0.4 Eosinophils # 0.3 Basophils # 0.0 Nucleated Red Blood Cells # 0.0 Sodium Level 136 Potassium Level 3.7 Chloride Level 97 Carbon Dioxide Level 29 Anion Gap 14 Blood Urea Nitrogen 25 H Creatinine 5.14 H Glucose Level 121 Calcium Level 8.3 L Medications Medications Current Medications Atorvastatin Calcium (Lipitor) 20 mg HS PO Last administered on 02/03/17t 21:14 ; Admin Dose 20 MG; Start 01/07/17 at 21:00; Status Future Hold Miscellaneous Information 1 ea NOTE XX ; Start 01/07/17 at 17:30 Glucose (Glutose) 15 gm Q15M PRN PO DECREASED GLUCOSE; Start 01/07/17 at 17:30 Glucose (Glutose) 22.5 gm Q15M PRN PO DECREASED GLUCOSE; Start 01/07/17 at 17: 30 Dextrose (D50w Syringe) 25 ml Q15M PRN IV DECREASED GLUCOSE; Start 01/07/17 at 17:30 Dextrose (D50w Syringe) 50 ml Q15M PRN IV DECREASED GLUCOSE; Start 01/07/17 at 17:30 Glucagon (Glucagen) 1 mg Q15M PRN IM DECREASED GLUCOSE; Start 01/07/17 at 17:30 Glucose (Glutose) 15 gm Q15M PRN BUCCAL DECREASED GLUCOSE; Start 01/07/17 at 17 :30 Nifedipine (Procardia Xl) 30 mg DAILY PO Last administered on 02/06/17 08:06; Admin Dose 30 MG; Start 01/08/17 at 09:00 Docusate Sodium (Colace) 100 mg BID PRN PO CONSTIPATION Last administered on 11:56; Admin Dose 100 MG; Start 01/08/17 at 14:00 Acetaminophen (Tylenol Tab) 500 mg Q6H PRN PO PAIN AND OR ELEVATED TEMP Last administered on 02/05/17 11:25; Admin Dose 500 MG; Start 01/08/17 at 15:30 Diagnostic Test (Pha) (Accu-Chek) 1 ea 02 XX Last administered on 01/31/17 02: 25; Admin Dose 1 EA; Start 01/15/17 at 02:00 Insulin Aspart 10 unit 10 unit ONCE PRN SC ELEVATED GLUCOSE Last administered on 01/21/17 02:15; Admin Dose 10 UNIT; Start 01/17/17 at 02:00 Sodium Chloride (1/2 NS) 1,000 ml @ 40 mls/hr Q24H IV Last administered on 01/18 21:32; Admin Dose 75 MLS/HR; Start 01/17/17 at 17:00; Status Future Hold Nitroglycerin (Nitroglycerin (Sl Tab) 0.4 Mg) 1 tab Q5M PRN SL ANGINA; Start at 21:30 Epoetin Sean (Epogen (Esrd)) 10,000 units MoWeFr@17 SC Last administered on 17:32; Admin Dose 10,000 UNITS; Start 01/19/17 at 17:00 Lubiprostone (Amitiza) 24 mcg BID PO Last administered on 02/06/17 08:05; Admin Dose 24 MCG; Start 01/21/17 at 21:00 Ondansetron HCl (Zofran Inj) 4 mg Q4H PRN IV NAUSEA AND/OR VOMITING Last administered on 01/28/17 13:32; Admin Dose 4 MG; Start 01/24/17 at 13:30 IV Flush (NS 10 ml) 10 ml PRN PRN IV IV PROTOCOL; Start 01/27/17 at 15:00 Multivitamins Therapeutic (Theragran) 1 tab DAILY PO Last administered on 08:05; Admin Dose 1 TAB; Start 01/30/17 at 09:00 Lactulose (Enulose) 30 gm Q6 GTB Last administered on 02/06/17 06:20; Admin Dose 30 GM; Start 01/29/17 at 20:00 Insulin Glargine (Lantus) 32 unit DAILY@20 SC Last administered on 02/05/17 20 :50; Admin Dose 32 UNIT; Start 01/31/17 at 20:00 Hydroxyzine HCl (Atarax) 10 mg Q6H PRN PO ITCHING Last administered on 23:22; Admin Dose 10 MG; Start 02/01/17 at 17:30 Triamcinolone Acetonide (Kenalog 0.1% Oint) 1 applic BID TOP Last administered on 02/06/17 08:06; Admin Dose 1 APPLIC; Start 02/01/17 at 21:00 Fluconazole (Diflucan) 100 mg DAILY PO Last administered on 02/06/17 12:01; Admin Dose 100 MG; Start 02/06/17 at 12:00 STUART STANLEY MD Feb 06, 2017 12:04
[2017-02-06] MEDS: EPOETIN 10000 UNITS/1 ML INJ (ESRD) SC SCH (17:34)
--- NOTE | 2017-02-06 19:53 | PN ---
Date/Time of Note Date/Time of Note DATE: 02/06/17 TIME: 19:44 Assessment/Plan VTE Prophylaxis VTE Prophylaxis Intervention: ambulation VTE Contraindication Reason: amputee Lines/Catheters IV [facility]from [facility] Central line still needed: Yes Urinary Cath still in place: Yes Reason Cath still needed: other (indicate) (Hematuria and chronic kidney disease) Assessment/Plan Chief Complaint/Hosp Course Gross hematuria patient does have yeast infection in his urine. The patient is on hemodialysis. He has hypertension, diabetes type 2, liver cirrhosis with portal hypertension, dyslipidemia, history of encephalopathy and that has improved Problems: Assessment/Plan Urinary tract infection with yeast. Patient has been placed on Diflucan Subjective 24 Hr Interval Summary Constitutional: other (Condition unchanged) Eyes: no complaints ENT: no complaints Respiratory: No cough Cardiovascular: No chest pain Gastrointestinal: No nausea, No vomiting Genitourinary: hematuria, other (Low urine output, urine is blood-tinged) Musculoskeletal: no complaints Skin: no complaints Neurologic: no complaints Endocrine: no complaints Psychological: no complaints Exam/Review of Systems Vital Signs Vitals Vital Signs Date Time Temp Pulse Resp B/P Pulse Ox O2 Delivery O2 Flow Rate FiO2 02/06/17 17:18 94 2.0 02/06/17 17:16 86 24 Nasal Cannula 02/06/17 07:31 98.2 135/66 Intake and Output 02/05/17 02/05/17 02/06/17 15:00 23:00 07:00 Intake Total 300 ml 490 ml 240 ml Output Total 4300 ml 100 ml 150 ml Balance -4000 ml 390 ml 90 ml Exam Constitutional: alert, oriented Psych: no complaints Head: normocephalic Eyes: nl conjunctiva ENMT: nl external ears & nose Neck: non-tender, supple Respiratory: normal air movement Cardiovascular: No edema Gastrointestinal: other (Obese abdomen), soft Genitourinary - Male: other (Dasilva catheter draining small amount of urine and the urine is blood-tinged) Musculoskeletal: nl extremities to inspection Extremities: No calf tenderness, No pitting pedal edema Skin: nl turgor Results Result Diagram: 02/06/17 0534 02/06/17 0534 Results 24 hrs Laboratory Tests Test 02/05/17 20:34 02/06/17 05:34 02/06/17 08:05 02/06/17 12:00 Bedside Glucose 156 135 134 White Blood Count 4.4 L Red Blood Count 3.21 L Hemoglobin 8.6 L Hematocrit 27.7 L Mean Corpuscular Volume 86.3 Mean Corpuscular Hemoglobin 26.8 L Mean Corpuscular Hemoglobin Concent 31.0 L Red Cell Distribution Width 19.1 H Platelet Count 91 L Mean Platelet Volume 11.7 H Neutrophils % 64.7 Lymphocytes % 18.4 Monocytes % 9.8 Eosinophils % 6.1 Basophils % 0.5 Nucleated Red Blood Cells % 0.0 Neutrophils # 2.9 Lymphocytes # 0.8 Monocytes # 0.4 Eosinophils # 0.3 Basophils # 0.0 Nucleated Red Blood Cells # 0.0 Sodium Level 136 Potassium Level 3.7 Chloride Level 97 Carbon Dioxide Level 29 Anion Gap 14 Blood Urea Nitrogen 25 H Creatinine 5.14 H Glucose Level 121 Calcium Level 8.3 L Test 02/06/17 17:19 Bedside Glucose 165 Medications Medications Current Medications Atorvastatin Calcium (Lipitor) 20 mg HS PO Last administered on 02/03/17 21:14 ; Admin Dose 20 MG; Start 01/07/17 at 21:00; Status Future Hold Miscellaneous Information 1 ea NOTE XX ; Start 01/07/17 at 17:30 Glucose (Glutose) 15 gm Q15M PRN PO DECREASED GLUCOSE; Start 01/07/17 at 17:30 Glucose (Glutose) 22.5 gm Q15M PRN PO DECREASED GLUCOSE; Start 01/07/17 at 17: 30 Dextrose (D50w Syringe) 25 ml Q15M PRN IV DECREASED GLUCOSE; Start 01/07/17 at 17:30 Dextrose (D50w Syringe) 50 ml Q15M PRN IV DECREASED GLUCOSE; Start 01/07/17 at 17:30 Glucagon (Glucagen) 1 mg Q15M PRN IM DECREASED GLUCOSE; Start 01/07/17 at 17:30 Glucose (Glutose) 15 gm Q15M PRN BUCCAL DECREASED GLUCOSE; Start 01/07/17 at 17 :30 Nifedipine (Procardia Xl) 30 mg DAILY PO Last administered on 02/06/17 08:06; Admin Dose 30 MG; Start 01/08/17 at 09:00 Docusate Sodium (Colace) 100 mg BID PRN PO CONSTIPATION Last administered on 11:56; Admin Dose 100 MG; Start 01/08/17 at 14:00 Acetaminophen (Tylenol Tab) 500 mg Q6H PRN PO PAIN AND OR ELEVATED TEMP Last administered on 02/05/17 11:25; Admin Dose 500 MG; Start 01/08/17 at 15:30 Diagnostic Test (Pha) (Accu-Chek) 1 ea 02 XX Last administered on 01/31/17 02: 25; Admin Dose 1 EA; Start 01/15/17 at 02:00 Insulin Aspart 10 unit 10 unit ONCE PRN SC ELEVATED GLUCOSE Last administered on 01/21/17 02:15; Admin Dose 10 UNIT; Start 01/17/17 at 02:00 Sodium Chloride (1/2 NS) 1,000 ml @ 40 mls/hr Q24H IV Last administered on 01/18 21:32; Admin Dose 75 MLS/HR; Start 01/17/17 at 17:00; Status Future Hold Nitroglycerin (Nitroglycerin (Sl Tab) 0.4 Mg) 1 tab Q5M PRN SL ANGINA; Start at 21:30 Epoetin Sean (Epogen (Esrd)) 10,000 units MoWeFr@17 SC Last administered on 17:34; Admin Dose 10,000 UNITS; Start 01/19/17 at 17:00 Lubiprostone (Amitiza) 24 mcg BID PO Last administered on 02/06/17 08:05; Admin Dose 24 MCG; Start 01/21/17 at 21:00 Ondansetron HCl (Zofran Inj) 4 mg Q4H PRN IV NAUSEA AND/OR VOMITING Last administered on 01/28/17 13:32; Admin Dose 4 MG; Start 01/24/17 at 13:30 IV Flush (NS 10 ml) 10 ml PRN PRN IV IV PROTOCOL; Start 01/27/17 at 15:00 Multivitamins Therapeutic (Theragran) 1 tab DAILY PO Last administered on 08:05; Admin Dose 1 TAB; Start 01/30/17 at 09:00 Lactulose (Enulose) 30 gm Q6 GTB Last administered on 02/06/17 06:20; Admin Dose 30 GM; Start 01/29/17 at 20:00 Insulin Glargine (Lantus) 32 unit DAILY@20 SC Last administered on 02/05/17 20 :50; Admin Dose 32 UNIT; Start 01/31/17 at 20:00 Hydroxyzine HCl (Atarax) 10 mg Q6H PRN PO ITCHING Last administered on 23:22; Admin Dose 10 MG; Start 02/01/17 at 17:30 Triamcinolone Acetonide (Kenalog 0.1% Oint) 1 applic BID TOP Last administered on 02/06/17 08:06; Admin Dose 1 APPLIC; Start 02/01/17 at 21:00 Fluconazole (Diflucan) 100 mg DAILY PO Last administered on 02/06/17 12:01; Admin Dose 100 MG; Start 02/06/17 at 12:00 KIMMY EDWARDS MD Feb 06, 2017 19:53
[2017-02-06 20:00] VITALS: BP 118/65; RESP 18
[2017-02-06] MEDS: INSULIN GLARGINE [LANtus] 3 ML PEN SC SCH (20:47)
[2017-02-07] VITALS (11 sets, daily range): BP systolic 112–147; BP diastolic 59–86; PULSE 90–107; RESP 18–22
[2017-02-07] MEDS: LACTULOSE 30ML CUP GTB SCH ×5 (00:04→23:17)
[2017-02-07] MEDS: ACCU-CHEK XX SCH (02:28)
--- NOTE | 2017-02-07 08:18 | CONS ---
Date/Time of Note Date/Time of Note DATE: 02/07/17 TIME: 08:16 Assessment/Plan Assessment/Plan Problems: (1) ESRD (end stage renal disease) on dialysis Comment: for planned HD today (2) HTN (hypertension) Comment: controlled (3) Cirrhosis Comment: due to hep C... on lactulose (4) Hepatitis C Comment: f/b GI Consultation Date/Type/Reason Admit Date/Time Jan 07, 2017 at 10:13 Initial Consult Date 02/05/17 Type of Consultation: neph Referring Provider: JENY MORA MD 24 HR Interval Summary Free Text/Dictation sleepy... discussed w in room Exam/Review of Systems Vital Signs Vitals Vital Signs Date Time Temp Pulse Resp B/P Pulse Ox O2 Delivery O2 Flow Rate FiO2 02/07/17 08:09 99.3 91 20 127/60 93 02/06/17 21:10 Nasal Cannula 3.0 02/06/17 20:21 28 Intake and Output 02/06/17 02/06/17 02/07/17 15:00 23:00 07:00 Intake Total 300 ml 400 ml Output Total 50 ml 50 ml Balance 250 ml 350 ml Exam Psych: no complaints Neck: supple Respiratory: clear to auscultation Cardiovascular: regular rate and rhythm Gastrointestinal: soft Results Result Diagram: 02/06/17 0534 02/06/17 0534 Results 24 hrs Laboratory Tests Test 02/06/17 12:00 02/06/17 17:19 02/06/17 20:30 02/07/17 02:26 Bedside Glucose 134 165 182 167 Test 02/07/17 08:05 Bedside Glucose 149 Medications Medications Current Medications Atorvastatin Calcium (Lipitor) 20 mg HS PO Last administered on 02/03/17t 21:14 ; Admin Dose 20 MG; Start 01/07/17 at 21:00; Status Future Hold Miscellaneous Information 1 ea NOTE XX ; Start 01/07/17 at 17:30 Glucose (Glutose) 15 gm Q15M PRN PO DECREASED GLUCOSE; Start 01/07/17 at 17:30 Glucose (Glutose) 22.5 gm Q15M PRN PO DECREASED GLUCOSE; Start 01/07/17 at 17: 30 Dextrose (D50w Syringe) 25 ml Q15M PRN IV DECREASED GLUCOSE; Start 01/07/17 at 17:30 Dextrose (D50w Syringe) 50 ml Q15M PRN IV DECREASED GLUCOSE; Start 01/07/17 at 17:30 Glucagon (Glucagen) 1 mg Q15M PRN IM DECREASED GLUCOSE; Start 01/07/17 at 17:30 Glucose (Glutose) 15 gm Q15M PRN BUCCAL DECREASED GLUCOSE; Start 01/07/17 at 17 :30 Nifedipine (Procardia Xl) 30 mg DAILY PO Last administered on 02/06/17 08:06; Admin Dose 30 MG; Start 01/08/17 at 09:00 Docusate Sodium (Colace) 100 mg BID PRN PO CONSTIPATION Last administered on 11:56; Admin Dose 100 MG; Start 01/08/17 at 14:00 Acetaminophen (Tylenol Tab) 500 mg Q6H PRN PO PAIN AND OR ELEVATED TEMP Last administered on 02/05/17 11:25; Admin Dose 500 MG; Start 01/08/17 at 15:30 Diagnostic Test (Pha) (Accu-Chek) 1 ea 02 XX Last administered on 02/07/17 02: 28; Admin Dose 1 EA; Start 01/15/17 at 02:00 Insulin Aspart 10 unit 10 unit ONCE PRN SC ELEVATED GLUCOSE Last administered on 01/21/17 02:15; Admin Dose 10 UNIT; Start 01/17/17 at 02:00 Sodium Chloride (1/2 NS) 1,000 ml @ 40 mls/hr Q24H IV Last administered on 01/18 21:32; Admin Dose 75 MLS/HR; Start 01/17/17 at 17:00; Status Future Hold Nitroglycerin (Nitroglycerin (Sl Tab) 0.4 Mg) 1 tab Q5M PRN SL ANGINA; Start at 21:30 Epoetin Sean (Epogen (Esrd)) 10,000 units MoWeFr@17 SC Last administered on 17:34; Admin Dose 10,000 UNITS; Start 01/19/17 at 17:00 Lubiprostone (Amitiza) 24 mcg BID PO Last administered on 02/06/17 20:32; Admin Dose 24 MCG; Start 01/21/17 at 21:00 Ondansetron HCl (Zofran Inj) 4 mg Q4H PRN IV NAUSEA AND/OR VOMITING Last administered on 01/28/17 13:32; Admin Dose 4 MG; Start 01/24/17 at 13:30 IV Flush (NS 10 ml) 10 ml PRN PRN IV IV PROTOCOL; Start 01/27/17 at 15:00 Multivitamins Therapeutic (Theragran) 1 tab DAILY PO Last administered on 08:05; Admin Dose 1 TAB; Start 01/30/17 at 09:00 Lactulose (Enulose) 30 gm Q6 GTB Last administered on 02/07/17 00:04; Admin Dose 30 GM; Start 01/29/17 at 20:00 Insulin Glargine (Lantus) 32 unit DAILY@20 SC Last administered on 02/06/17 20 :47; Admin Dose 32 UNIT; Start 01/31/17 at 20:00 Hydroxyzine HCl (Atarax) 10 mg Q6H PRN PO ITCHING Last administered on 23:22; Admin Dose 10 MG; Start 02/01/17 at 17:30 Triamcinolone Acetonide (Kenalog 0.1% Oint) 1 applic BID TOP Last administered on 02/06/17 20:32; Admin Dose 1 APPLIC; Start 02/01/17 at 21:00 Fluconazole (Diflucan) 100 mg DAILY PO Last administered on 02/06/17 12:01; Admin Dose 100 MG; Start 02/06/17 at 12:00 NORRIS JOE MD Feb 07, 2017 08:18
[2017-02-07] MEDS: INSULIN ASPART [NOVOLOG] 3 ML PEN SC SCH ×4 (08:43→20:10)
[2017-02-07] MEDS: ALBUTEROL/IPRATROPIUM (NEB) 3 ML AMP HHN SCH ×4 (08:44→21:00)
[2017-02-07] MEDS: TRIAMCINOLONE ACET 0.1% 15 GM OINT TOP SCH ×3 (09:00→20:09)
[2017-02-07] MEDS: NIFEdipine (XL) 30 MG TAB PO SCH (09:00)
[2017-02-07] MEDS: MULTIVITAMINS THERAPEUTIC TAB PO SCH (09:11)
[2017-02-07] MEDS: LUBIPROSTONE 24 MCG CAP PO SCH ×2 (09:11→20:08)
[2017-02-07] MEDS: FLUCONAZOLE 100 MG TAB PO SCH (09:11)
[2017-02-07 10:36] LABS: BASOPHILS % 0.4 % (0.0-2.0); EOSINOPHILS # 0.3 10^3/ul (0.0-0.5); EOSINOPHILS % 7.2 % (0.0-7.0); HEMATOCRIT 27.7 % (42.0-52.0); HEMOGLOBIN 8.6 g/dl (14.0-18.0); MEAN CORPUSCULAR HEMOGLOBIN 26.5 pg (29.0-33.0); MEAN CORPUSCULAR VOLUME 85.2 fl (82.0-101.0); MEAN PLATELET VOLUME 10.8 fl (7.4-10.4); MONOCYTE # 0.4 10^3/ul (0.3-0.9); NEUTROPHIL # 2.7 10^3/ul (1.6-7.5); NEUTROPHILS % 60.7 % (39.0-77.0); PLATELET COUNT 101 10^3/UL (140-415); RED BLOOD COUNT 3.25 10^6/ul (4.70-6.10); RED CELL DISTRIBUTION WIDTH 19.5 % (11.5-14.5); WHITE BLOOD COUNT 4.5 10^3/ul (4.8-10.8)
[2017-02-07 10:56] LABS: ALBUMIN 2.6 g/dl (3.3-4.9); ALBUMIN/GLOBULIN RATIO 0.54; BILIRUBIN,INDIRECT 0.3 mg/dl (0-1.1); BILIRUBIN,TOTAL 0.3 mg/dl (0.2-1.3); CALCIUM 7.8 mg/dl (8.4-10.2); CREATININE 6.41 mg/dl (0.61-1.24); POTASSIUM 3.8 mmol/L (3.5-5.1); TOTAL PROTEIN 7.4 g/dl (6.1-8.1)
--- NOTE | 2017-02-07 12:37 | CONS ---
Date/Time of Note Date/Time of Note DATE: 02/07/17 TIME: 12:36 Assessment/Plan Assessment/Plan Chief Complaint/Hosp Course 61-year-old male admitted for shortness of breath. Patient is a history of hepatitis C cirrhosis of liver, morbid obesity obstructive sleep apnea, diabetes mellitus and hypertension. Recent was brought to the emergency room for abdominal distention and shortness of breath. He was slightly nauseous. 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 Problems: Additional Assessment/Plan Additional Assessment/Plan 1. Shortness of breath multifactorial, much better 2. Morbid obesity, patient lost 22 pounds 3. Cirrhosis of liver with portal hypertension 4. Mild ascites 5. Diabetes 6. Hypertension 7. Renal failure patient on dialysis 8. Anasarca, almost to resolved 11. Severe constipation, better 12. Profound weakness, second to dialysis 13. Encephalopathy, much better, and ammonia is back to normal 14 epistaxis, resolved 15. Sleep apnea 16. Hematuria Plan Continue with the lactulose and dialysis Rifaximin has been stopped Physical therapy and ambulate patient Patient is steadily losing weight Consultation Date/Type/Reason Admit Date/Time Jan 07, 2017 at 10:13 Initial Consult Date 01/09/17 Type of Consultation: neph Referring Provider: JENY MORA MD 24 HR Interval Summary Free Text/Dictation Gets tired easily Exam/Review of Systems Vital Signs Vitals Vital Signs Date Time Temp Pulse Resp B/P Pulse Ox O2 Delivery O2 Flow Rate FiO2 02/07/17 10:42 Nasal Cannula 3.0 02/07/17 08:44 84 20 96 28 02/07/17 08:09 99.3 127/60 Intake and Output 02/06/17 02/06/17 02/07/17 15:00 23:00 07:00 Intake Total 300 ml 400 ml Output Total 50 ml 50 ml Balance 250 ml 350 ml Exam Respiratory: clear to auscultation, normal air movement Cardiovascular: nl pulses, regular rate and rhythm Extremities: edema 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: 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 II-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 intact, nl mental status, nl speech, nl strength Results Result Diagram: 02/07/17 1000 02/07/17 1000 Results 24 hrs Laboratory Tests Test 02/06/17 17:19 02/06/17 20:30 02/07/17 02:26 02/07/17 08:05 Bedside Glucose 165 182 167 149 Test 02/07/17 09:17 02/07/17 10:00 02/07/17 12:01 Lab Scanned Report REFERENCE LAB White Blood Count 4.5 L Red Blood Count 3.25 L Hemoglobin 8.6 L Hematocrit 27.7 L Mean Corpuscular Volume 85.2 Mean Corpuscular Hemoglobin 26.5 L Mean Corpuscular Hemoglobin Concent 31.0 L Red Cell Distribution Width 19.5 H Platelet Count 101 L Mean Platelet Volume 10.8 H Neutrophils % 60.7 Lymphocytes % 22.0 Monocytes % 9.0 Eosinophils % 7.2 H Basophils % 0.4 Nucleated Red Blood Cells % 0.0 Neutrophils # 2.7 Lymphocytes # 1.0 Monocytes # 0.4 Eosinophils # 0.3 Basophils # 0.0 Nucleated Red Blood Cells # 0.0 Sodium Level 133 L Potassium Level 3.8 Chloride Level 94 L Carbon Dioxide Level 28 Anion Gap 15 Blood Urea Nitrogen 35 H Creatinine 6.41 H Glucose Level 162 Calcium Level 7.8 L Total Bilirubin 0.3 Direct Bilirubin 0.00 Indirect Bilirubin 0.3 Aspartate Amino Transf (AST/SGOT) 34 Alanine Aminotransferase (ALT/SGPT) 40 Alkaline Phosphatase 127 H Total Protein 7.4 Albumin 2.6 L Globulin 4.80 H Albumin/Globulin Ratio 0.54 Bedside Glucose 160 Medications Medications Current Medications Atorvastatin Calcium (Lipitor) 20 mg HS PO Last administered on 02/03/17t 21:14 ; Admin Dose 20 MG; Start 01/07/17 at 21:00; Status Future Hold Miscellaneous Information 1 ea NOTE XX ; Start 01/07/17 at 17:30 Glucose (Glutose) 15 gm Q15M PRN PO DECREASED GLUCOSE; Start 01/07/17 at 17:30 Glucose (Glutose) 22.5 gm Q15M PRN PO DECREASED GLUCOSE; Start 01/07/17 at 17: 30 Dextrose (D50w Syringe) 25 ml Q15M PRN IV DECREASED GLUCOSE; Start 01/07/17 at 17:30 Dextrose (D50w Syringe) 50 ml Q15M PRN IV DECREASED GLUCOSE; Start 01/07/17 at 17:30 Glucagon (Glucagen) 1 mg Q15M PRN IM DECREASED GLUCOSE; Start 01/07/17 at 17:30 Glucose (Glutose) 15 gm Q15M PRN BUCCAL DECREASED GLUCOSE; Start 01/07/17 at 17 :30 Nifedipine (Procardia Xl) 30 mg DAILY PO Last administered on 02/06/17 08:06; Admin Dose 30 MG; Start 01/08/17 at 09:00 Docusate Sodium (Colace) 100 mg BID PRN PO CONSTIPATION Last administered on 11:56; Admin Dose 100 MG; Start 01/08/17 at 14:00 Acetaminophen (Tylenol Tab) 500 mg Q6H PRN PO PAIN AND OR ELEVATED TEMP Last administered on 02/05/17 11:25; Admin Dose 500 MG; Start 01/08/17 at 15:30 Diagnostic Test (Pha) (Accu-Chek) 1 ea 02 XX Last administered on 02/07/17 02: 28; Admin Dose 1 EA; Start 01/15/17 at 02:00 Insulin Aspart 10 unit 10 unit ONCE PRN SC ELEVATED GLUCOSE Last administered on 01/21/17 02:15; Admin Dose 10 UNIT; Start 01/17/17 at 02:00 Sodium Chloride (1/2 NS) 1,000 ml @ 40 mls/hr Q24H IV Last administered on 01/18 21:32; Admin Dose 75 MLS/HR; Start 01/17/17 at 17:00; Status Future Hold Nitroglycerin (Nitroglycerin (Sl Tab) 0.4 Mg) 1 tab Q5M PRN SL ANGINA; Start at 21:30 Epoetin Sean (Epogen (Esrd)) 10,000 units MoWeFr@17 SC Last administered on 17:34; Admin Dose 10,000 UNITS; Start 01/19/17 at 17:00 Lubiprostone (Amitiza) 24 mcg BID PO Last administered on 02/07/17 09:11; Admin Dose 24 MCG; Start 01/21/17 at 21:00 Ondansetron HCl (Zofran Inj) 4 mg Q4H PRN IV NAUSEA AND/OR VOMITING Last administered on 01/28/17 13:32; Admin Dose 4 MG; Start 01/24/17 at 13:30 IV Flush (NS 10 ml) 10 ml PRN PRN IV IV PROTOCOL; Start 01/27/17 at 15:00 Multivitamins Therapeutic (Theragran) 1 tab DAILY PO Last administered on 09:11; Admin Dose 1 TAB; Start 01/30/17 at 09:00 Lactulose (Enulose) 30 gm Q6 GTB Last administered on 02/07/17 00:04; Admin Dose 30 GM; Start 01/29/17 at 20:00 Insulin Glargine (Lantus) 32 unit DAILY@20 SC Last administered on 02/06/17 20 :47; Admin Dose 32 UNIT; Start 01/31/17 at 20:00 Hydroxyzine HCl (Atarax) 10 mg Q6H PRN PO ITCHING Last administered on 23:22; Admin Dose 10 MG; Start 02/01/17 at 17:30 Triamcinolone Acetonide (Kenalog 0.1% Oint) 1 applic BID TOP Last administered on 02/07/17 12:05; Admin Dose 1 APPLIC; Start 02/01/17 at 21:00 Fluconazole (Diflucan) 100 mg DAILY PO Last administered on 02/07/17 09:11; Admin Dose 100 MG; Start 02/06/17 at 12:00 STUART STANLEY MD Feb 07, 2017 12:37
--- NOTE | 2017-02-07 19:24 | PN ---
DATE: 02/06/2017 SUBJECTIVE DATA: The patient continues to be lethargic, very poor p.o. intake, shortness of breath has improved. OBJECTIVE DATA: VITAL SIGNS: Temperature 98.2, blood pressure 134/66, O2 sats 93 percent on 3 L nasal cannula. CHEST: Decreased breath sounds at bases. HEART: S1, S2. No murmurs or gallops. ABDOMEN: Obese. EXTREMITIES: Decreased edema. : Dasilva catheter draining bloody urine. Dr. Hayes's urology consultation greatly appreciated. The patient had irrigation done of the Dasilva catheter. Catheter had a few blood clots removed from the bladder. Urine culture growing Reba. Patient will be put on diflucan. LABORATORY: WBC count 4.4, hematocrit 27.7, platelet count is 91,000. Sodium 136, potassium 3.7, BUN 25, creatinine 5.14, glucose 135, 134 today. IMPRESSION: 1. Acute on chronic renal failure on hemodialysis likely secondary to progressive nephrosclerosis with diabetes mellitus. 2. Urinary tract infection with Reba, being treated. 3. Hematuria with oliguria. 4. Status post epistaxis with packing in the left nostril. 5. Cirrhosis, portal hypertension, ascites, hepatic encephalopathy, improved. 6. Diabetes mellitus type 2, well controlled. 7. Hypertension. 8. Status post pneumonia, congestive heart failure. 9. Status post methicillin-sensitive Staphylococcus bacteremia. PLAN: I have discussed with Dr. Worley and will arrange to have the packing removed from the nose. Continue close monitoring for further bleeding of urine. Continue Diflucan. Continue dialysis. Will request acute rehab unit evaluation as the patient's overall functional status is still poor for discharge to home. Dictated By: Ivan Brice MD /marlyn/homerc /Document#: [id number]
[2017-02-07] MEDS: INSULIN GLARGINE [LANtus] 3 ML PEN SC SCH (20:11)
[2017-02-08] MEDS: ACCU-CHEK XX SCH (01:17)
[2017-02-08 02:17] VITALS: BP 119/62; RESP 16
[2017-02-08] MEDS: LACTULOSE 30ML CUP GTB SCH ×4 (05:24→23:15)
--- NOTE | 2017-02-08 06:46 | PN ---
DATE: 02/07/2017 SUBJECTIVE: The patient is very lethargic. Status post hemodialysis today. Per family patient is having very poor p.o. intake. OBJECTIVE DATA: GENERAL: Patient is lethargic. VITAL SIGNS: Temperature 98.8, heart rate 100 per minute, blood pressure 145/86, O2 sat 97 percent on 2 L nasal cannula. HEENT: The packing from the left nostril has been removed by today. CHEST: Clear anteriorly. EXTREMITIES: 1+ edema. Homans negative. LABORATORY: WBC count 4.5, hematocrit 27.7, platelet count 101,000. Sodium 133, potassium 3.8, BUN 35, creatinine 6.41. IMPRESSION: 1. Acute on chronic renal failure with hematuria, resolving. 2. Thrombocytopenia, improved. 3. Diabetes mellitus type 2. Well controlled. 4. Morbid obesity. 5. Cirrhosis, portal hypertension, hepatic encephalopathy, resolved. PLAN: We will continue to increase activity with PT. Rehab consultation pending. We will discuss with Dr. King Castro regarding consideration of Megace for stimulation with appetite. I have discussed at length with the patient's son. Dictated By: Ivan Brice MD /[email or web address] /Document#: [id number]
[2017-02-08] MEDS: INSULIN ASPART [NOVOLOG] 3 ML PEN SC SCH ×4 (08:03→21:23)
[2017-02-08] MEDS: FLUCONAZOLE 100 MG TAB PO SCH (08:31)
[2017-02-08] MEDS: MULTIVITAMINS THERAPEUTIC TAB PO SCH (08:32)
[2017-02-08] MEDS: LUBIPROSTONE 24 MCG CAP PO SCH ×2 (08:32→21:10)
[2017-02-08] MEDS: NIFEdipine (XL) 30 MG TAB PO SCH (08:32)
[2017-02-08] MEDS: TRIAMCINOLONE ACET 0.1% 15 GM OINT TOP SCH ×2 (08:33→21:10)
[2017-02-08 08:34] VITALS: BP 117/62; PULSE 80; RESP 18
--- NOTE | 2017-02-08 09:00 | CONS ---
Date/Time of Note Date/Time of Note DATE: 02/08/17 TIME: 08:55 Assessment/Plan Assessment/Plan Problems: (1) ESRD (end stage renal disease) on dialysis Comment: did well w HD yest... next HD to be Tues (2) Hepatitis C Comment: om Rx (3) HTN (hypertension) Comment: controlled (4) Cirrhosis Comment: awake/alert today... amb in [place] Consultation Date/Type/Reason Admit Date/Time Jan 07, 2017 at 10:13 Initial Consult Date 02/05/17 Type of Consultation: neph Referring Provider: JENY MORA MD 24 HR Interval Summary Free Text/Dictation better... up amb in [place] this am w Exam/Review of Systems Vital Signs Vitals Vital Signs Date Time Temp Pulse Resp B/P Pulse Ox O2 Delivery O2 Flow Rate FiO2 02/08/17 08:34 98.3 80 18 117/62 94 Room Air 02/08/17 01:18 2.0 27 Intake and Output 02/07/17 02/07/17 02/08/17 15:00 23:00 07:00 Intake Total 500 ml 440 ml Output Total 4000 ml 140 ml Balance -3500 ml 300 ml Exam Constitutional: alert, oriented Eyes: nl conjunctiva Neck: supple Respiratory: clear to auscultation Cardiovascular: regular rate and rhythm Extremities: normal pulses Results Result Diagram: 02/07/17 1000 02/07/17 1000 Results 24 hrs Laboratory Tests Test 02/07/17 09:17 02/07/17 10:00 02/07/17 12:01 02/07/17 17:21 Lab Scanned Report REFERENCE LAB White Blood Count 4.5 L Red Blood Count 3.25 L Hemoglobin 8.6 L Hematocrit 27.7 L Mean Corpuscular Volume 85.2 Mean Corpuscular Hemoglobin 26.5 L Mean Corpuscular Hemoglobin Concent 31.0 L Red Cell Distribution Width 19.5 H Platelet Count 101 L Mean Platelet Volume 10.8 H Neutrophils % 60.7 Lymphocytes % 22.0 Monocytes % 9.0 Eosinophils % 7.2 H Basophils % 0.4 Nucleated Red Blood Cells % 0.0 Neutrophils # 2.7 Lymphocytes # 1.0 Monocytes # 0.4 Eosinophils # 0.3 Basophils # 0.0 Nucleated Red Blood Cells # 0.0 Sodium Level 133 L Potassium Level 3.8 Chloride Level 94 L Carbon Dioxide Level 28 Anion Gap 15 Blood Urea Nitrogen 35 H Creatinine 6.41 H Glucose Level 162 Calcium Level 7.8 L Total Bilirubin 0.3 Direct Bilirubin 0.00 Indirect Bilirubin 0.3 Aspartate Amino Transf (AST/SGOT) 34 Alanine Aminotransferase (ALT/SGPT) 40 Alkaline Phosphatase 127 H Total Protein 7.4 Albumin 2.6 L Globulin 4.80 H Albumin/Globulin Ratio 0.54 Bedside Glucose 160 181 Test 02/07/17 20:05 02/08/17 01:07 02/08/17 08:03 Bedside Glucose 201 136 115 Medications Medications Current Medications Atorvastatin Calcium (Lipitor) 20 mg HS PO Last administered on 02/03/17 21:14 ; Admin Dose 20 MG; Start 01/07/17 at 21:00; Status Future Hold Miscellaneous Information 1 ea NOTE XX ; Start 01/07/17 at 17:30 Glucose (Glutose) 15 gm Q15M PRN PO DECREASED GLUCOSE; Start 01/07/17 at 17:30 Glucose (Glutose) 22.5 gm Q15M PRN PO DECREASED GLUCOSE; Start 01/07/17 at 17: 30 Dextrose (D50w Syringe) 25 ml Q15M PRN IV DECREASED GLUCOSE; Start 01/07/17 at 17:30 Dextrose (D50w Syringe) 50 ml Q15M PRN IV DECREASED GLUCOSE; Start 01/07/17 at 17:30 Glucagon (Glucagen) 1 mg Q15M PRN IM DECREASED GLUCOSE; Start 01/07/17 at 17:30 Glucose (Glutose) 15 gm Q15M PRN BUCCAL DECREASED GLUCOSE; Start 01/07/17 at 17 :30 Nifedipine (Procardia Xl) 30 mg DAILY PO Last administered on 02/06/17 08:06; Admin Dose 30 MG; Start 01/08/17 at 09:00 Docusate Sodium (Colace) 100 mg BID PRN PO CONSTIPATION Last administered on 11:56; Admin Dose 100 MG; Start 01/08/17 at 14:00 Acetaminophen (Tylenol Tab) 500 mg Q6H PRN PO PAIN AND OR ELEVATED TEMP Last administered on 02/05/17 11:25; Admin Dose 500 MG; Start 01/08/17 at 15:30 Diagnostic Test (Pha) (Accu-Chek) 1 ea 02 XX Last administered on 02/08/17 01: 17; Admin Dose 1 EA; Start 01/15/17 at 02:00 Insulin Aspart 10 unit 10 unit ONCE PRN SC ELEVATED GLUCOSE Last administered on 01/21/17 02:15; Admin Dose 10 UNIT; Start 01/17/17 at 02:00 Sodium Chloride (1/2 NS) 1,000 ml @ 40 mls/hr Q24H IV Last administered on 01/18 21:32; Admin Dose 75 MLS/HR; Start 01/17/17 at 17:00; Status Future Hold Nitroglycerin (Nitroglycerin (Sl Tab) 0.4 Mg) 1 tab Q5M PRN SL ANGINA; Start at 21:30 Epoetin Sean (Epogen (Esrd)) 10,000 units MoWeFr@17 SC Last administered on 17:34; Admin Dose 10,000 UNITS; Start 01/19/17 at 17:00 Lubiprostone (Amitiza) 24 mcg BID PO Last administered on 02/08/17 08:32; Admin Dose 24 MCG; Start 01/21/17 at 21:00 Ondansetron HCl (Zofran Inj) 4 mg Q4H PRN IV NAUSEA AND/OR VOMITING Last administered on 01/28/17 13:32; Admin Dose 4 MG; Start 01/24/17 at 13:30 IV Flush (NS 10 ml) 10 ml PRN PRN IV IV PROTOCOL; Start 01/27/17 at 15:00 Multivitamins Therapeutic (Theragran) 1 tab DAILY PO Last administered on 08:32; Admin Dose 1 TAB; Start 01/30/17 at 09:00 Lactulose (Enulose) 30 gm Q6 GTB Last administered on 02/07/17 17:33; Admin Dose 30 GM; Start 01/29/17 at 20:00 Insulin Glargine (Lantus) 32 unit DAILY@20 SC Last administered on 02/07/17 20 :11; Admin Dose 32 UNIT; Start 01/31/17 at 20:00 Hydroxyzine HCl (Atarax) 10 mg Q6H PRN PO ITCHING Last administered on 23:22; Admin Dose 10 MG; Start 02/01/17 at 17:30 Triamcinolone Acetonide (Kenalog 0.1% Oint) 1 applic BID TOP Last administered on 02/08/17 08:33; Admin Dose 1 APPLIC; Start 02/01/17 at 21:00 Fluconazole (Diflucan) 100 mg DAILY PO Last administered on 02/08/17 08:31; Admin Dose 100 MG; Start 02/06/17 at 12:00 NORRIS JOE MD Feb 08, 2017 09:00
[2017-02-08] MEDS: ALBUTEROL/IPRATROPIUM (NEB) 3 ML AMP HHN SCH ×4 (09:21→20:23)
--- NOTE | 2017-02-08 11:01 | CONS ---
Date/Time of Note Date/Time of Note DATE: 02/08/17 TIME: 11:00 Assessment/Plan Assessment/Plan Additional Assessment/Plan Assessment and recommendations; 1. Patient admitted with shortness of breath due to end-stage renal disease, now requiring hemodialysis. 2. CHF. 3. Cirrhosis due to hepatitis C. 4. Thrombocytopenia. 5. Intermittent hemoptysis with interval improvement. 6. Diabetes and hypertension. 7. Likely underlying severe sleep apnea. Recommendations continue current treatment. Prognosis is poor on account of multiple comorbidities. Consultation Date/Type/Reason Admit Date/Time Jan 07, 2017 at 10:13 Initial Consult Date 01/26/17 Type of Consultation: Pulmonary Referring Provider: JENY MORA MD 24 HR Interval Summary Free Text/Dictation Patient condition stable. Resting comfortably. No further hemoptysis. General exam; elderly male, morbidly obese, currently in no distress. Exam/Review of Systems Vital Signs Vitals Vital Signs Date Time Temp Pulse Resp B/P Pulse Ox O2 Delivery O2 Flow Rate FiO2 02/08/17 09:21 95 2.0 28 02/08/17 09:21 84 24 Nasal Cannula 02/08/17 08:34 98.3 117/62 Intake and Output 02/07/17 02/07/17 02/08/17 15:00 23:00 07:00 Intake Total 500 ml 440 ml Output Total 4000 ml 140 ml Balance -3500 ml 300 ml Exam HEENT exam; supple neck, JVD efficacy. Pharynx is clear. Patient has fair dentition. Chest exam; clear to auscultation. S1-S2 audible, no murmurs. Regular rhythm. Abdomen exam; soft, protuberant. No organomegaly. Bowel sounds audible. Extremity exam; trace peripheral edema. REPORTING CONSULTANT exam; patient is awake and alert. No focal deficit. Results Result Diagram: 02/07/17 1000 02/07/17 1000 Results 24 hrs Laboratory Tests Test 02/07/17 12:01 02/07/17 17:21 02/07/17 20:05 02/08/17 01:07 Bedside Glucose 160 181 201 136 Test 02/08/17 08:03 Bedside Glucose 115 Medications Medications Current Medications Atorvastatin Calcium (Lipitor) 20 mg HS PO Last administered on 02/03/17t 21:14 ; Admin Dose 20 MG; Start 01/07/17 at 21:00; Status Future Hold Miscellaneous Information 1 ea NOTE XX ; Start 01/07/17 at 17:30 Glucose (Glutose) 15 gm Q15M PRN PO DECREASED GLUCOSE; Start 01/07/17 at 17:30 Glucose (Glutose) 22.5 gm Q15M PRN PO DECREASED GLUCOSE; Start 01/07/17 at 17: 30 Dextrose (D50w Syringe) 25 ml Q15M PRN IV DECREASED GLUCOSE; Start 01/07/17 at 17:30 Dextrose (D50w Syringe) 50 ml Q15M PRN IV DECREASED GLUCOSE; Start 01/07/17 at 17:30 Glucagon (Glucagen) 1 mg Q15M PRN IM DECREASED GLUCOSE; Start 01/07/17 at 17:30 Glucose (Glutose) 15 gm Q15M PRN BUCCAL DECREASED GLUCOSE; Start 01/07/17 at 17 :30 Nifedipine (Procardia Xl) 30 mg DAILY PO Last administered on 02/06/17 08:06; Admin Dose 30 MG; Start 01/08/17 at 09:00 Docusate Sodium (Colace) 100 mg BID PRN PO CONSTIPATION Last administered on 11:56; Admin Dose 100 MG; Start 01/08/17 at 14:00 Acetaminophen (Tylenol Tab) 500 mg Q6H PRN PO PAIN AND OR ELEVATED TEMP Last administered on 02/05/17 11:25; Admin Dose 500 MG; Start 01/08/17 at 15:30 Diagnostic Test (Pha) (Accu-Chek) 1 ea 02 XX Last administered on 02/08/17 01: 17; Admin Dose 1 EA; Start 01/15/17 at 02:00 Insulin Aspart 10 unit 10 unit ONCE PRN SC ELEVATED GLUCOSE Last administered on 01/21/17 02:15; Admin Dose 10 UNIT; Start 01/17/17 at 02:00 Sodium Chloride (1/2 NS) 1,000 ml @ 40 mls/hr Q24H IV Last administered on 01/18 21:32; Admin Dose 75 MLS/HR; Start 01/17/17 at 17:00; Status Future Hold Nitroglycerin (Nitroglycerin (Sl Tab) 0.4 Mg) 1 tab Q5M PRN SL ANGINA; Start at 21:30 Epoetin Sean (Epogen (Esrd)) 10,000 units MoWeFr@17 SC Last administered on 17:34; Admin Dose 10,000 UNITS; Start 01/19/17 at 17:00 Lubiprostone (Amitiza) 24 mcg BID PO Last administered on 02/08/17 08:32; Admin Dose 24 MCG; Start 01/21/17 at 21:00 Ondansetron HCl (Zofran Inj) 4 mg Q4H PRN IV NAUSEA AND/OR VOMITING Last administered on 01/28/17 13:32; Admin Dose 4 MG; Start 01/24/17 at 13:30 IV Flush (NS 10 ml) 10 ml PRN PRN IV IV PROTOCOL; Start 01/27/17 at 15:00 Multivitamins Therapeutic (Theragran) 1 tab DAILY PO Last administered on 08:32; Admin Dose 1 TAB; Start 01/30/17 at 09:00 Lactulose (Enulose) 30 gm Q6 GTB Last administered on 02/07/17 17:33; Admin Dose 30 GM; Start 01/29/17 at 20:00 Insulin Glargine (Lantus) 32 unit DAILY@20 SC Last administered on 02/07/17 20 :11; Admin Dose 32 UNIT; Start 01/31/17 at 20:00 Hydroxyzine HCl (Atarax) 10 mg Q6H PRN PO ITCHING Last administered on 23:22; Admin Dose 10 MG; Start 02/01/17 at 17:30 Triamcinolone Acetonide (Kenalog 0.1% Oint) 1 applic BID TOP Last administered on 02/08/17 08:33; Admin Dose 1 APPLIC; Start 02/01/17 at 21:00 Fluconazole (Diflucan) 100 mg DAILY PO Last administered on 02/08/17 08:31; Admin Dose 100 MG; Start 02/06/17 at 12:00 WALDO FRASER Feb 08, 2017 11:01
--- NOTE | 2017-02-08 13:36 | CONS ---
Date/Time of Note Date/Time of Note DATE: 02/08/17 TIME: 13:35 Assessment/Plan Assessment/Plan Chief Complaint/Hosp Course 61-year-old male admitted for shortness of breath. Patient is a history of hepatitis C cirrhosis of liver, morbid obesity obstructive sleep apnea, diabetes mellitus and hypertension. Recent was brought to the emergency room for abdominal distention and shortness of breath. He was slightly nauseous. 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 Problems: Additional Assessment/Plan Additional Assessment/Plan 1. Shortness of breath multifactorial, much better 2. Morbid obesity, patient lost 22 pounds 3. Cirrhosis of liver with portal hypertension 4. Mild ascites 5. Diabetes 6. Hypertension 7. Renal failure patient on dialysis 8. Anasarca, almost to resolved 11. Severe constipation, better 12. Profound weakness, second to dialysis 13. Encephalopathy, much better, and ammonia is back to normal 14 epistaxis, resolved 15. Sleep apnea 16. Hematuria, better Plan Continue with the lactulose and dialysis Rifaximin has been stopped Physical therapy and ambulate patient Patient is steadily losing weight Consultation Date/Type/Reason Admit Date/Time Jan 07, 2017 at 10:13 Initial Consult Date 01/09/17 Type of Consultation: Pulmonary Referring Provider: JENY MORA MD 24 HR Interval Summary Constitutional: improved Exam/Review of Systems Vital Signs Vitals Vital Signs Date Time Temp Pulse Resp B/P Pulse Ox O2 Delivery O2 Flow Rate FiO2 02/08/17 12:31 93 24 89 Nasal Cannula 2.0 28 02/08/17 08:34 98.3 117/62 Intake and Output 02/07/17 02/07/17 02/08/17 15:00 23:00 07:00 Intake Total 500 ml 440 ml Output Total 4000 ml 140 ml Balance -3500 ml 300 ml Exam Constitutional: alert, oriented, well developed Psych: nl mood/affect, no complaints Head: atraumatic, normocephalic Eyes: EOMI, PERRL, nl conjunctiva, nl lids, nl sclera ENMT: nl external ears & nose, nl lips & teeth, nl nasal mucosa & septum Neck: non-tender, supple Respiratory: clear to auscultation, normal air movement Cardiovascular: nl pulses, regular rate and rhythm Gastrointestinal: nl liver, spleen, non-tender, soft Musculoskeletal: nl extremities to inspection, nl gait and stance Extremities: normal pulses 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: INSTRUMENT PROCESSING TECH II-XII intact, nl mental status, nl speech, nl strength Skin: nl turgor, No rash or lesions Lymph: nl lymph nodes Results Result Diagram: 02/07/17 1000 02/07/17 1000 Results 24 hrs Laboratory Tests Test 02/07/17 17:21 02/07/17 20:05 02/08/17 01:07 02/08/17 08:03 Bedside Glucose 181 201 136 115 Test 02/08/17 12:03 Bedside Glucose 126 Medications Medications Current Medications Atorvastatin Calcium (Lipitor) 20 mg HS PO Last administered on 02/03/17 21:14 ; Admin Dose 20 MG; Start 01/07/17 at 21:00; Status Future Hold Miscellaneous Information 1 ea NOTE XX ; Start 01/07/17 at 17:30 Glucose (Glutose) 15 gm Q15M PRN PO DECREASED GLUCOSE; Start 01/07/17 at 17:30 Glucose (Glutose) 22.5 gm Q15M PRN PO DECREASED GLUCOSE; Start 01/07/17 at 17: 30 Dextrose (D50w Syringe) 25 ml Q15M PRN IV DECREASED GLUCOSE; Start 01/07/17 at 17:30 Dextrose (D50w Syringe) 50 ml Q15M PRN IV DECREASED GLUCOSE; Start 01/07/17 at 17:30 Glucagon (Glucagen) 1 mg Q15M PRN IM DECREASED GLUCOSE; Start 01/07/17 at 17:30 Glucose (Glutose) 15 gm Q15M PRN BUCCAL DECREASED GLUCOSE; Start 01/07/17 at 17 :30 Nifedipine (Procardia Xl) 30 mg DAILY PO Last administered on 02/06/17 08:06; Admin Dose 30 MG; Start 01/08/17 at 09:00 Docusate Sodium (Colace) 100 mg BID PRN PO CONSTIPATION Last administered on 11:56; Admin Dose 100 MG; Start 01/08/17 at 14:00 Acetaminophen (Tylenol Tab) 500 mg Q6H PRN PO PAIN AND OR ELEVATED TEMP Last administered on 02/05/17 11:25; Admin Dose 500 MG; Start 01/08/17 at 15:30 Diagnostic Test (Pha) (Accu-Chek) 1 ea 02 XX Last administered on 02/08/17 01: 17; Admin Dose 1 EA; Start 01/15/17 at 02:00 Insulin Aspart 10 unit 10 unit ONCE PRN SC ELEVATED GLUCOSE Last administered on 01/21/17 02:15; Admin Dose 10 UNIT; Start 01/17/17 at 02:00 Sodium Chloride (1/2 NS) 1,000 ml @ 40 mls/hr Q24H IV Last administered on 01/18 21:32; Admin Dose 75 MLS/HR; Start 01/17/17 at 17:00; Status Future Hold Nitroglycerin (Nitroglycerin (Sl Tab) 0.4 Mg) 1 tab Q5M PRN SL ANGINA; Start at 21:30 Epoetin Sean (Epogen (Esrd)) 10,000 units MoWeFr@17 SC Last administered on 17:34; Admin Dose 10,000 UNITS; Start 01/19/17 at 17:00 Lubiprostone (Amitiza) 24 mcg BID PO Last administered on 02/08/17 08:32; Admin Dose 24 MCG; Start 01/21/17 at 21:00 Ondansetron HCl (Zofran Inj) 4 mg Q4H PRN IV NAUSEA AND/OR VOMITING Last administered on 01/28/17 13:32; Admin Dose 4 MG; Start 01/24/17 at 13:30 IV Flush (NS 10 ml) 10 ml PRN PRN IV IV PROTOCOL; Start 01/27/17 at 15:00 Multivitamins Therapeutic (Theragran) 1 tab DAILY PO Last administered on 08:32; Admin Dose 1 TAB; Start 01/30/17 at 09:00 Lactulose (Enulose) 30 gm Q6 GTB Last administered on 02/08/17 12:01; Admin Dose 30 GM; Start 01/29/17 at 20:00 Insulin Glargine (Lantus) 32 unit DAILY@20 SC Last administered on 02/07/17 20 :11; Admin Dose 32 UNIT; Start 01/31/17 at 20:00 Hydroxyzine HCl (Atarax) 10 mg Q6H PRN PO ITCHING Last administered on 23:22; Admin Dose 10 MG; Start 02/01/17 at 17:30 Triamcinolone Acetonide (Kenalog 0.1% Oint) 1 applic BID TOP Last administered on 02/08/17 08:33; Admin Dose 1 APPLIC; Start 02/01/17 at 21:00 Fluconazole (Diflucan) 100 mg DAILY PO Last administered on 02/08/17 08:31; Admin Dose 100 MG; Start 02/06/17 at 12:00 STUART STANLEY MD Feb 08, 2017 13:36
--- NOTE | 2017-02-08 14:16 | CONS ---
DATE OF ADMISSION: 01/07/2017 DATE OF CONSULTATION: 02/01/2017 HISTORY OF PRESENT ILLNESS: The patient is a 62-year-old gentleman who was admitted with cirrhosis and acute renal failure for which he is on hemodialysis, but he started with epistaxis and spitting out blood this morning at 2 a.m. ENT was consulted. He says he is bleeding out of both sides of his nose. He has mostly been spitting out blood but he is supine and not sitting up at all. PAST MEDICAL HISTORY: Cirrhosis, renal failure on hemodialysis, hypertension, diabetes, congestive heart failure. PAST SURGICAL HISTORY: Appendectomy. ALLERGIES: NONE. MEDICATION: Reviewed. SOCIAL HISTORY: Positive for tobacco use in the past. Negative for alcohol abuse. Negative for drug abuse. FAMILY HISTORY: Negative for any heart, lung, kidney, thyroid or liver disease. REVIEW OF SYSTEMS: A 14-point review of systems was otherwise noncontributory. PHYSICAL EXAMINATION: HEENT: His nose had some blood on both sides, much more on the left when compared with the right. He does have a moderately deviated septum to the left. The oral cavity and oropharynx does have some fresh blood going down the nasopharynx. Neck reveals no lymphadenopathy or thyromegaly. Trachea is midline. TREATMENT: At this point the nasal cavities were packed with Afrin and lidocaine soaked gauze. After a sufficient period of time had elapsed, we were able to clear out the right side completely. There was no bleeding at all that I could see. On the left side; however, once I started suctioning out that side I did see some active bleeding coming from behind the septal deflection on the left. I could not adequately see the exact spot to be able to cauterize it, so the decision was made to place some packing. At this point Vaseline gauze packing was used to adequately tamponade the bleeding. After it was placed the right side of the nose was completely clear and the oropharynx has no blood whatsoever. IMPRESSION: 1. Epistaxis. 2. Deviated septum. 3. Cirrhosis. 4. Renal failure. PLAN: At this point given his coagulopathy I believe that his packing should be left in for at least 5 days, and I think it is reasonable to put him on an antibiotic during that time to prevent sinusitis. Dictated By: Javan Bland MD /[email or web address] /Document#: [id number]
[2017-02-08 15:16] VITALS: BP 131/77; RESP 20
[2017-02-08 19:56] VITALS: BP 126/67; RESP 20
[2017-02-08] MEDS: INSULIN GLARGINE [LANtus] 3 ML PEN SC SCH (21:14)
[2017-02-09 02:00] VITALS: BP 132/74; RESP 20
[2017-02-09] MEDS: ACCU-CHEK XX SCH (02:00)
[2017-02-09] MEDS: LACTULOSE 30ML CUP GTB SCH ×4 (06:00→23:43)
[2017-02-09 07:51] VITALS: BP 117/69; RESP 20
--- NOTE | 2017-02-09 07:57 | CONS ---
Date/Time of Note Date/Time of Note DATE: 02/09/17 TIME: 07:48 Assessment/Plan Assessment/Plan Chief Complaint/Hosp Course 1)Liver cirrhosis with portal HTN due to Hep C to repeat ammonia level 01/21 - ammonia level is mildly elevated at 57 consider lacutlose 01/26 - pt getting lactulose due to rising ammonia level but so far no BM's 01/27 - pt had one BM yesterday only will re-check ammonia level consider increasing lacutulose dose, pt also on rifaximin 01/29 - ammonia level is decreasing 02/04 - will repeat Hep C RNA 02/09 - Hep C RNA was negative 2) CHF +/- pneumonia unable to tolerate lasix with worsening renal function 01/21 - in light of MSSA in blood and no open wounds or chronic IV in place, concern would be lung may be the portal of entry to start zosyn to cover for lung infection as well as the MSSA CXR does not show a lobar infiltrate 01/22 - continue with zosyn 01/23 - beta d glucan to look for invasive fungal disease was negative continue with zosyn 01/24 - stable on zosyn wbc is back to normal 01/26 - stable, WBC minimal elevated pt would likely benefit from a blood tx 01/29 - pt has completed his course for pneumonia d/c zosyn and start ceftriaxone for continued treatment of his MSSA bacteremia 01/30 - breathing is stable off zosyn and only on ceftriaxone 02/02 - allergic drug reaction so will stop ceftriaxone and go to iv vanco 3) r/o SBP pt to get paracentesis later today cefotaxime was started by the primary if fevers not improving will broaden the coverage 01/20 - pt to get paracentesis today continue with cefotaxime 01/21 - low number of PMN's in ascitic fluid, this in not the source for his MSSA d/c cefotaxime 4) new onset fever with leukocytosis pt has been on steroids but this does not explain the new fever the potential sources would include, ascitic fluid, lung urinalysis does not suggest an infection will order beta d glucan, aspergillus galactomannan, procalcitonin in a.m. will order LE dopplers to make sure no DVT has developed if cefotaxime does not improve his fever, wbc then will broaden coverage to include lung infection 01/20 - await paracentesis and a.m. labs vanco added due to GPC in blood cx fevers appear improved 01/21 - MSSA is present in blood and urine cx u/a did not show signs of infection and so the urine may only be seeded from the bacteremia will order repeat u/a at this time d/c vanco/cefotaxime and start zosyn since there is no skin breakdown or ulcers the lung becomes a more likely portal of entry 01/22 - fevers resolved continue with zosyn for bacteremia and possible pneumonia 5) MSSA bacteremia 01/20 - no central line in place, IV sites look ok await ID to see if true infection or a contaminant vanco started, will order repeat blood cx now 01/21 - true infection of blood with MSSA repeat blood cx from 01/20 is NGTD d/c vanco/cefotaxime and start zosyn check u/a 01/22 - MSSA in one set from 01/20 repeat blood cx today pt needs dialysis and likely he is no longer bacteremic so ok for dialysis line but if pt remains bacteremic it will need to be replaced 01/23 - pt to get dialysis line today and likely HD afterwards continue with zosyn 01/24 - repeat blood cx from 01/22 remain NGTD wbc is back to normal anticipate a 4 week course of treatment for this, will eventually change zosyn to ceftriaxone 01/26 - consider blood tx to help with effectiveness of antibiotics 01/27 - repeat blood cx remain neg from 01/22 and 01/25 01/29 - changed to ceftriaxone and continue thru 02/16/1701/30 - tolerating ceftriaxone, continue thru 02/16/1702/02 - due to rash will change ceftriaxone to vanco and continue vanco thru 02/04 - pt tolerating vanco 02/06 - continue vanco thru 02/16 6) anemia 01/26 - when pt does have a BM will get hemoccult to see if pt will need prophylaxis for SBP consider blood tx 7) allergic drug reaction (02/02/17) likely culprits would be rifaximin, prior zosyn or current ceftriaxone d/c ceftriaxone and rifaximin and start IV vanco 02/04 - rash is improved 8) candiduria with pyuria/hematuria 02/06 - start short course of po diflucan 02/09 - will d/c diflucan he as received a short course (4 days) very little urine is produced Problems: Consultation Date/Type/Reason Admit Date/Time Jan 07, 2017 at 10:13 Initial Consult Date 01/19/17 Type of Consultation: ID Referring Provider: JENY MORA MD 24 HR Interval Summary Free Text/Dictation pt had some bleeding from nares which was treated and packed but packing is already out no V, D he has global pains, no specific sites poor appetite no SOB was up walking with yesterday Exam/Review of Systems Vital Signs Vitals Vital Signs Date Time Temp Pulse Resp B/P Pulse Ox O2 Delivery O2 Flow Rate FiO2 02/09/17 02:00 98.3 95 20 132/74 92 02/08/17 23:35 Nasal Cannula 3.0 02/08/17 17:41 28 Intake and Output 02/08/17 02/08/17 02/09/17 15:00 23:00 07:00 Intake Total 500 ml 100 ml Output Total 25 ml 50 ml Balance 475 ml 50 ml Exam Constitutional: alert, oriented Head: normocephalic ENMT: mucosa pink and moist Respiratory: clear to auscultation Cardiovascular: regular rate and rhythm Gastrointestinal: non-tender, soft Results Result Diagram: 02/07/17 1000 02/07/17 1000 Results 24 hrs Laboratory Tests Test 02/08/17 08:03 02/08/17 12:03 02/08/17 17:27 02/08/17 21:09 Bedside Glucose 115 126 202 225 H Test 02/09/17 02:14 02/09/17 04:53 Bedside Glucose 181 Random Vancomycin Level 17.9 Medications Medications Current Medications Atorvastatin Calcium (Lipitor) 20 mg HS PO Last administered on 02/03/17t 21:14 ; Admin Dose 20 MG; Start 01/07/17 at 21:00; Status Future Hold Miscellaneous Information 1 ea NOTE XX ; Start 01/07/17 at 17:30 Glucose (Glutose) 15 gm Q15M PRN PO DECREASED GLUCOSE; Start 01/07/17 at 17:30 Glucose (Glutose) 22.5 gm Q15M PRN PO DECREASED GLUCOSE; Start 01/07/17 at 17: 30 Dextrose (D50w Syringe) 25 ml Q15M PRN IV DECREASED GLUCOSE; Start 01/07/17 at 17:30 Dextrose (D50w Syringe) 50 ml Q15M PRN IV DECREASED GLUCOSE; Start 01/07/17 at 17:30 Glucagon (Glucagen) 1 mg Q15M PRN IM DECREASED GLUCOSE; Start 01/07/17 at 17:30 Glucose (Glutose) 15 gm Q15M PRN BUCCAL DECREASED GLUCOSE; Start 01/07/17 at 17 :30 Nifedipine (Procardia Xl) 30 mg DAILY PO Last administered on 02/06/17 08:06; Admin Dose 30 MG; Start 01/08/17 at 09:00 Docusate Sodium (Colace) 100 mg BID PRN PO CONSTIPATION Last administered on 11:56; Admin Dose 100 MG; Start 01/08/17 at 14:00 Acetaminophen (Tylenol Tab) 500 mg Q6H PRN PO PAIN AND OR ELEVATED TEMP Last administered on 02/05/17 11:25; Admin Dose 500 MG; Start 01/08/17 at 15:30 Diagnostic Test (Pha) (Accu-Chek) 1 ea 02 XX Last administered on 02/08/17 01: 17; Admin Dose 1 EA; Start 01/15/17 at 02:00 Insulin Aspart 10 unit 10 unit ONCE PRN SC ELEVATED GLUCOSE Last administered on 01/21/17 02:15; Admin Dose 10 UNIT; Start 01/17/17 at 02:00 Sodium Chloride (1/2 NS) 1,000 ml @ 40 mls/hr Q24H IV Last administered on 01/18 21:32; Admin Dose 75 MLS/HR; Start 01/17/17 at 17:00; Status Future Hold Nitroglycerin (Nitroglycerin (Sl Tab) 0.4 Mg) 1 tab Q5M PRN SL ANGINA; Start at 21:30 Epoetin Sean (Epogen (Esrd)) 10,000 units MoWeFr@17 SC Last administered on 17:34; Admin Dose 10,000 UNITS; Start 01/19/17 at 17:00 Lubiprostone (Amitiza) 24 mcg BID PO Last administered on 02/08/17 21:10; Admin Dose 24 MCG; Start 01/21/17 at 21:00 Ondansetron HCl (Zofran Inj) 4 mg Q4H PRN IV NAUSEA AND/OR VOMITING Last administered on 01/28/17 13:32; Admin Dose 4 MG; Start 01/24/17 at 13:30 IV Flush (NS 10 ml) 10 ml PRN PRN IV IV PROTOCOL; Start 01/27/17 at 15:00 Multivitamins Therapeutic (Theragran) 1 tab DAILY PO Last administered on 08:32; Admin Dose 1 TAB; Start 01/30/17 at 09:00 Lactulose (Enulose) 30 gm Q6 GTB Last administered on 02/08/17 23:15; Admin Dose 30 GM; Start 01/29/17 at 20:00 Insulin Glargine (Lantus) 32 unit DAILY@20 SC Last administered on 02/08/17 21 :14; Admin Dose 32 UNIT; Start 01/31/17 at 20:00 Hydroxyzine HCl (Atarax) 10 mg Q6H PRN PO ITCHING Last administered on 23:22; Admin Dose 10 MG; Start 02/01/17 at 17:30 Triamcinolone Acetonide (Kenalog 0.1% Oint) 1 applic BID TOP Last administered on 02/08/17 21:10; Admin Dose 1 APPLIC; Start 02/01/17 at 21:00 Fluconazole (Diflucan) 100 mg DAILY PO Last administered on 02/08/17 08:31; Admin Dose 100 MG; Start 02/06/17 at 12:00 DANYEL HART MD Feb 09, 2017 07:57
[2017-02-09] MEDS: INSULIN ASPART [NOVOLOG] 3 ML PEN SC SCH ×4 (08:17→21:59)
--- NOTE | 2017-02-09 08:30 | PN ---
DATE: 02/08/2017 SUBJECTIVE: The patient is more responsive today. He is sitting up out of bed. Shortness of breath has improved OBJECTIVE DATA: VITAL SIGNS: Temperature 99 temperature, blood pressure 131/77, O2 sat 93 percent on 2 L. CHEST: Decreased breath sounds at bases. Few wheezes. HEART: S1, S2. No definite gallops. EXTREMITIES: 1+ edema. LABORATORY AND DIAGNOSTIC DATA: Blood glucose levels today 115 126, and 202. Dasilva catheter draining clear urine. IMPRESSION: 1. Cirrhosis, portal hypertension with hepatic encephalopathy, resolved. 2. Hypertension. 3. End-stage renal disease on hemodialysis. Had hemodialysis yesterday. 4. Urinary tract infection with Reba, being treated. 5. Diabetes mellitus type 2. 6. Obstructive sleep apnea. PLAN: We will continue nephrology recommendations per Dr. Castro. Will discuss with other MDs and initiate discharge planning. Consider trial of rehab if patient is found to be a candidate. Dictated By: Ivan Brice MD /[email or web address] /Document#: [id number]
[2017-02-09] MEDS: LUBIPROSTONE 24 MCG CAP PO SCH ×2 (08:42→21:35)
[2017-02-09] MEDS: MULTIVITAMINS THERAPEUTIC TAB PO SCH (08:43)
[2017-02-09] MEDS: NIFEdipine (XL) 30 MG TAB PO SCH (08:43)
[2017-02-09] MEDS: TRIAMCINOLONE ACET 0.1% 15 GM OINT TOP SCH ×2 (08:43→21:00)
[2017-02-09] MEDS: ACETAMINOPHEN 500 MG TAB PO PRN (08:43)
[2017-02-09] MEDS: FLUCONAZOLE 100 MG TAB PO SCH (08:43)
[2017-02-09] MEDS: ALBUTEROL/IPRATROPIUM (NEB) 3 ML AMP HHN SCH ×4 (09:19→20:31)
--- NOTE | 2017-02-09 10:00 | PN ---
DATE: 02/01/2017 SUBJECTIVE: The patient just had dialysis earlier today. He is awake and alert. He complains of mild headache. No focal weakness or numbness. PO intake is still poor. OBJECTIVE: VITAL SIGNS: Temperature 98.2, blood pressure 127/71, O2 sats 95 percent on 2 L nasal cannula. HEENT: Mild pallor without cyanosis. CHEST: Clear anteriorly. ABDOMEN: Soft. No tenderness. EXTREMITIES: Decreased edema. Homans negative. NEUROLOGIC: No asterixis noted and no localizing, lateralizing signs. SKIN: Rash in upper extremities, significantly improved. IMPRESSION: 1. Acute on chronic renal failure status post hemodialysis. 2. Cirrhosis, portal hypertension, history of hep C. 3. Status post epistaxis with thrombocytopenia improved after blood transfusion. The patient has had nasal packing of the left nostril to be removed in the next 2 days. 4. Obstructive sleep apnea. 5. Hepatic encephalopathy, resolved. 6. Dermatitis, secondary to Rifaximin. Will discontinue. PLAN: Will mobilize. His cardiac rhythm has been stable. We will transfer the patient to the medical floor after discussing with consultants. Dictated By: Ivan Brice MD /[email or web address] /Document#: [id number]
--- NOTE | 2017-02-09 10:26 | PN ---
DATE: SUBJECTIVE: The patient is awake and alert. PO intake is very poor. OBJECTIVE: VITAL SIGNS: Temperature 99.2 earlier today, presently 98.5, blood pressure 124/58, blood sugar 226. HEENT: Mild pallor with cyanosis. JVD is not increased. CHEST: Clear anteriorly. HEART: S1, S2. No murmurs, rubs, or gallops. ABDOMEN: Obese and nontender. EXTREMITIES: Decreased edema. Homans' sign is negative. LABORATORY: WBC 27.0, hematocrit 25.2, hemoglobin 7.4, platelet count 44,000. Sodium 144, potassium 3.0, BUN 32, creatinine 5.14. Blood glucose levels last night were 247 and 202; this morning 185, 183, 200, and 226. Intake and output: 1715 in and 1400 out. IMPRESSION: 1. Acute on chronic renal failure. Urine output has improved. 2. Hypokalemia. 3. Severe anemia with thrombocytopenia. 4. Cirrhosis with portal hypertension with hepatic encephalopathy, resolving. 5. Obstructive sleep apnea. 6. Diabetes mellitus type 2, adequate control. PLAN: Will increase the dose of Lantus to 33 units. Replace potassium loss. Closely monitor renal function and also platelets. Observe signs for bleeding. I have discussed at length with the patient's family at the bedside. Dictated By: Ivan Brice MD /[email or web address] /Document#: [id number]
--- NOTE | 2017-02-09 11:02 | RADRPT ---
PROCEDURE: XR Chest. CLINICAL INDICATION: Pneumonia TECHNIQUE: Single frontal view of the chest was obtained COMPARISON: Chest x-ray 02/03/2017 FINDINGS: The right Perma-Cath and left PICC line are stable positions. There are persistent low lung volumes. There is mild to moderate cardiomegaly. There are atherosclerotic calcifications of the thoracic aorta. There is decrease pulmonary vascular congestion compared to prior study. There is new linear opacity in the left costophrenic angle region, likely representing atelectasis. No pneumothorax or significant pleural effusion is seen. There are degenerative changes of the visualized spine. IMPRESSION: 1. Stable support line positions. 2. Interval slight decrease in pulmonary vascular congestion. 3. New linear opacity in the left costophrenic angle region, likely representing atelectasis. 4. Thoracic aortic atherosclerotic disease. RPTAT: PP Physician Stanley Date Time Electronically viewed and signed by Physician Stanley on 02/09/2017 11:02 TIM/
--- NOTE | 2017-02-09 11:46 | PN ---
DATE: SUBJECTIVE DATA: The patient started having recurrent epistaxis and was coughing up blood early this morning and continued to have some oozing of blood. Vital signs are stable. I had requested Dr. Bland who kindly placed nasal packing of the left nostril with stopping of the bleeding. OBJECTIVE DATA: GENERAL: The patient presently is awake, in no acute distress. VITALS: Temperature 97.8, blood pressure 120/66, O2 sat 90 percent on 3 L nasal cannula. NECK: JVD is not raised. CHEST: Clear anteriorly. ABDOMEN: Soft, nontender. EXTREMITIES: Minimal edema. I AND O: Minimal urinary output 200 mL over the last 24 hours. DIAGNOSTICS: Hematocrit yesterday was 25.2. This morning, it was 23.8, platelet count 63,000. PT/INR 1.21, potassium 3.2, BUN 39, creatinine 6.09, glucose 158, 165, 161. IMPRESSION: 1. Epistaxis, probably a combination of heparin effect plus thrombocytopenia, resolving after placement of packing. We will give 2 units of platelets. The patient is also severely anemic, we will give [____]. The patient has had dialysis today. 2. Chronic kidney disease with worsening. Likely, patient will need long-term dialysis. Will discuss with Dr. Gillespie. 3. Cirrhosis with portal hypertension with hepatic encephalopathy. 4. Pneumonia, resolving. 5. Obesity. 6. Emesis of bacteremia. 7. Hypokalemia. PLAN: Replace potassium. Replace platelets. ADDENDUM: The patient is complaining of severe itching and red erythematous rash on posterior chest wall, flanks, and upper extremities, likely allergic, doubt petechial. We will start the patient on triamcinolone cream locally and also order Atarax. Recheck labs in a.m. If need be, we will get hematology consultation and also dermatology consultation. Dictated By: Ivan Brice MD /[email or web address] /Document#: [id number]
--- NOTE | 2017-02-09 12:50 | PN ---
DATE: 02/09/2017 SUBJECTIVE DATA: The patient is lethargic and has mild shortness of breath. Complains of cough with mucoid expectoration. OBJECTIVE DATA: GENERAL: The patient has a depressed affect and questioned reports to concerns about ongoing dialysis. VITAL SIGNS: Temperature 99.2, blood pressure 117/69. O2 saturation 96 percent on 3 L nasal cannula. HEENT: Packing on the left tonsil has been removed over the weekend. There is no epistaxis evident. CHEST: Clear anteriorly. HEART: S1, S2. No gallops. EXTREMITIES: Trace edema. Dasilva catheter in place, draining clear urine. IMPRESSION: 1. Low-grade fever. Query acute bronchitis. 2. Candiduria with pyuria, on oral Diflucan. 3. Status post allergic dermatitis, improved after discontinuing rifaximin and ceftriaxone, presently on IV vancomycin. 4. Gwwto-dc-ftpaeda renal failure with diabetic nephrosclerosis. 5. Mild anemia with thrombocytopenia, improved. 6. Cirrhosis and portal hypertension, status post hepatitis C resolution with treatment. 7. Obesity. 8. Obstructive sleep apnea. 9. Mild underlying depression. PLAN: The patient will discontinue the Dasilva catheter, increase activity, and repeat a chest x-ray to make sure there is no pneumonia. Will discuss with other MDs and initiate discharge planning. Dictated By: Ivan Brice MD /[email or web address] /Document#: [id number]
--- NOTE | 2017-02-09 13:00 | CONS ---
Date/Time of Note Date/Time of Note DATE: 02/09/17 TIME: 12:58 Assessment/Plan Assessment/Plan Additional Assessment/Plan Assessment and recommendations; 1. Patient admitted for shortness of breath. 2. Renal failure, on hemodialysis. 3. Underlying morbid obesity with sleep apnea. 4. Hepatitis C causing cirrhosis. 5. Thrombocytopenia with improving platelet count. Continue current supportive care. Consultation Date/Type/Reason Admit Date/Time Jan 07, 2017 at 10:13 Initial Consult Date 01/26/17 Type of Consultation: Pulmonary Referring Provider: JENY MORA MD 24 HR Interval Summary Free Text/Dictation Patient's condition stable. Remains awake alert. Has remained hemodynamically stable. No further hemoptysis noted. General exam; elderly male, morbidly obese, currently in no distress, laying flat in bed. Exam/Review of Systems Vital Signs Vitals Vital Signs Date Time Temp Pulse Resp B/P Pulse Ox O2 Delivery O2 Flow Rate FiO2 02/09/17 12:44 87 18 96 Nasal Cannula 2.0 28 02/09/17 07:51 99.2 117/69 Intake and Output 02/08/17 02/08/17 02/09/17 15:00 23:00 07:00 Intake Total 500 ml 100 ml Output Total 25 ml 50 ml Balance 475 ml 50 ml Exam HEENT exam; supple neck, no JVD. No lymphadenopathy. Midline trachea. No thyromegaly. Pharynx is clear. Patient has fair dentition. Chest exam; diminished but clear breath sound. S1-S2 audible, no murmurs. Regular rhythm. There is a hemodialysis catheter in the right subclavian area. Abdomen exam; protuberant. Nontender. Bowel sounds audible. Extremity exam; trace peripheral edema. DREDGE PUMPER exam; no focal deficit. Results Result Diagram: 02/07/17 1000 02/07/17 1000 Results 24 hrs Laboratory Tests Test 02/08/17 17:27 02/08/17 21:09 02/09/17 02:14 02/09/17 04:53 Bedside Glucose 202 225 H 181 Random Vancomycin Level 17.9 Test 02/09/17 07:55 02/09/17 12:11 Bedside Glucose 173 203 Medications Medications Current Medications Atorvastatin Calcium (Lipitor) 20 mg HS PO Last administered on 02/03/17t 21:14 ; Admin Dose 20 MG; Start 01/07/17 at 21:00; Status Future Hold Miscellaneous Information 1 ea NOTE XX ; Start 01/07/17 at 17:30 Glucose (Glutose) 15 gm Q15M PRN PO DECREASED GLUCOSE; Start 01/07/17 at 17:30 Glucose (Glutose) 22.5 gm Q15M PRN PO DECREASED GLUCOSE; Start 01/07/17 at 17: 30 Dextrose (D50w Syringe) 25 ml Q15M PRN IV DECREASED GLUCOSE; Start 01/07/17 at 17:30 Dextrose (D50w Syringe) 50 ml Q15M PRN IV DECREASED GLUCOSE; Start 01/07/17 at 17:30 Glucagon (Glucagen) 1 mg Q15M PRN IM DECREASED GLUCOSE; Start 01/07/17 at 17:30 Glucose (Glutose) 15 gm Q15M PRN BUCCAL DECREASED GLUCOSE; Start 01/07/17 at 17 :30 Nifedipine (Procardia Xl) 30 mg DAILY PO Last administered on 02/09/17 08:43; Admin Dose 30 MG; Start 01/08/17 at 09:00 Docusate Sodium (Colace) 100 mg BID PRN PO CONSTIPATION Last administered on 11:56; Admin Dose 100 MG; Start 01/08/17 at 14:00 Acetaminophen (Tylenol Tab) 500 mg Q6H PRN PO PAIN AND OR ELEVATED TEMP Last administered on 02/09/17 08:43; Admin Dose 500 MG; Start 01/08/17 at 15:30 Diagnostic Test (Pha) (Accu-Chek) 1 ea 02 XX Last administered on 02/08/17 01: 17; Admin Dose 1 EA; Start 01/15/17 at 02:00 Insulin Aspart 10 unit 10 unit ONCE PRN SC ELEVATED GLUCOSE Last administered on 01/21/17 02:15; Admin Dose 10 UNIT; Start 01/17/17 at 02:00 Sodium Chloride (1/2 NS) 1,000 ml @ 40 mls/hr Q24H IV Last administered on 01/18 21:32; Admin Dose 75 MLS/HR; Start 01/17/17 at 17:00; Status Future Hold Nitroglycerin (Nitroglycerin (Sl Tab) 0.4 Mg) 1 tab Q5M PRN SL ANGINA; Start at 21:30 Epoetin Sean (Epogen (Esrd)) 10,000 units MoWeFr@17 SC Last administered on 17:34; Admin Dose 10,000 UNITS; Start 01/19/17 at 17:00 Lubiprostone (Amitiza) 24 mcg BID PO Last administered on 02/09/17 08:42; Admin Dose 24 MCG; Start 01/21/17 at 21:00 Ondansetron HCl (Zofran Inj) 4 mg Q4H PRN IV NAUSEA AND/OR VOMITING Last administered on 01/28/17 13:32; Admin Dose 4 MG; Start 01/24/17 at 13:30 IV Flush (NS 10 ml) 10 ml PRN PRN IV IV PROTOCOL; Start 01/27/17 at 15:00 Multivitamins Therapeutic (Theragran) 1 tab DAILY PO Last administered on 08:43; Admin Dose 1 TAB; Start 01/30/17 at 09:00 Lactulose (Enulose) 30 gm Q6 GTB Last administered on 02/09/17 12:53; Admin Dose 30 GM; Start 01/29/17 at 20:00 Insulin Glargine (Lantus) 32 unit DAILY@20 SC Last administered on 02/08/17 21 :14; Admin Dose 32 UNIT; Start 01/31/17 at 20:00 Hydroxyzine HCl (Atarax) 10 mg Q6H PRN PO ITCHING Last administered on 23:22; Admin Dose 10 MG; Start 02/01/17 at 17:30 Triamcinolone Acetonide (Kenalog 0.1% Oint) 1 applic BID TOP Last administered on 02/09/17 08:43; Admin Dose 1 APPLIC; Start 02/01/17 at 21:00 Fluconazole 100 mg 100 mg DAILY PO Last administered on 02/09/17 08:43; Admin Dose 100 MG; Start 02/06/17 at 12:00; Stop 02/09/17 at 14:00 Vancomycin HCl/ Sodium Chloride (Vancocin/NS) 250 ml @ 83.333 mls/ hr Q96H IVPB ; Start 02/09/17 at 21:00 WALDO FRASER Feb 09, 2017 13:00
[2017-02-09 14:27] VITALS: BP 117/67; RESP 20
--- NOTE | 2017-02-09 14:51 | CONS ---
Date/Time of Note Date/Time of Note DATE: 02/09/17 TIME: 14:47 Assessment/Plan Assessment/Plan Chief Complaint/Hosp Course Impression: 1. Chronic kidney disease. He has had chronic kidney disease for at least a year and a half according to his primary care physician. His serum creatinine was around 1.8 to 2 prior to coming into the hospital. Since being hospitalized it has increased. He is now requiring hemodialysis. He does have nephrotic range proteinuria and I suspect he has underlying chronic glomerulonephritis possibly related to his hepatitis C. I told the patient and his today that I think he will need ongoing chronic hemodialysis. I told her we should make arrangements for outpatient hemodialysis. The patient continues to be very weak. I recommended that he go to a rehabilitation/SNF for physical therapy after discharge from the hospital. I discussed this with the patient's and son . I also gave her a referral to [facility] liver transplant. I specifically gave her the name of a liver specialist Dr. Sang Tobias for evaluation and treatment. He has been getting dialyzed Thursday. I will order hemodialysis for tomorrow. 2. 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 He has been treated for hepatitis C virus in 2013 and according to his he has been negative for hepatitis C on 3 or 4 blood tests another hepatitis C has been ordered.. 3. Hypertension 4. Hyperlipidemia 5. Anemia, 6. Congestive heart failure . He has lost a substantial amount of fluid with dialysis. His weight has decreased 35 kg since being in the hospital. I am sure most of this is fluid removal. He seems overall better and his congestive heart failure is improved.. 7. Obstructive sleep apnea 8. Altered level of consciousness/hepatic encephalopathy, his ammonia level is back to normal and he is more awake and alert. He seems more alert and he does not have any asterixis. Continue current treatment for hepatic encephalopathy. 9. Rash possibly due to rifaximin. This was discontinued. 10. Gross hematuria. This has resolved . Problems: Consultation Date/Type/Reason Admit Date/Time Jan 07, 2017 at 10:13 Initial Consult Date 01/19/17 Type of Consultation: renal Referring Provider: JENY MORA MD 24 HR Interval Summary Free Text/Dictation Patient is awake lying in bed . He says that he was up earlier . Exam/Review of Systems Vital Signs Vitals Vital Signs Date Time Temp Pulse Resp B/P Pulse Ox O2 Delivery O2 Flow Rate FiO2 02/09/17 14:27 98.3 91 20 117/67 92 02/09/17 12:44 Nasal Cannula 2.0 28 Intake and Output 02/08/17 02/08/17 02/09/17 15:00 23:00 07:00 Intake Total 500 ml 100 ml Output Total 25 ml 50 ml Balance 475 ml 50 ml Exam Constitutional: alert, frail, obese, oriented Respiratory: clear to auscultation, normal air movement Cardiovascular: edema, regular rate and rhythm Gastrointestinal: soft Musculoskeletal: nl extremities to inspection Results Result Diagram: 02/07/17 1000 02/07/17 1000 Results 24 hrs Laboratory Tests Test 02/08/17 17:27 02/08/17 21:09 02/09/17 02:14 02/09/17 04:53 Bedside Glucose 202 225 H 181 Random Vancomycin Level 17.9 Test 02/09/17 07:55 02/09/17 12:11 Bedside Glucose 173 203 Medications Medications Current Medications Atorvastatin Calcium (Lipitor) 20 mg HS PO Last administered on 02/03/17 21:14 ; Admin Dose 20 MG; Start 01/07/17 at 21:00; Status Future Hold Miscellaneous Information 1 ea NOTE XX ; Start 01/07/17 at 17:30 Glucose (Glutose) 15 gm Q15M PRN PO DECREASED GLUCOSE; Start 01/07/17 at 17:30 Glucose (Glutose) 22.5 gm Q15M PRN PO DECREASED GLUCOSE; Start 01/07/17 at 17: 30 Dextrose (D50w Syringe) 25 ml Q15M PRN IV DECREASED GLUCOSE; Start 01/07/17 at 17:30 Dextrose (D50w Syringe) 50 ml Q15M PRN IV DECREASED GLUCOSE; Start 01/07/17 at 17:30 Glucagon (Glucagen) 1 mg Q15M PRN IM DECREASED GLUCOSE; Start 01/07/17 at 17:30 Glucose (Glutose) 15 gm Q15M PRN BUCCAL DECREASED GLUCOSE; Start 01/07/17 at 17 :30 Nifedipine (Procardia Xl) 30 mg DAILY PO Last administered on 02/09/17 08:43; Admin Dose 30 MG; Start 01/08/17 at 09:00 Docusate Sodium (Colace) 100 mg BID PRN PO CONSTIPATION Last administered on 11:56; Admin Dose 100 MG; Start 01/08/17 at 14:00 Acetaminophen (Tylenol Tab) 500 mg Q6H PRN PO PAIN AND OR ELEVATED TEMP Last administered on 02/09/17 08:43; Admin Dose 500 MG; Start 01/08/17 at 15:30 Diagnostic Test (Pha) (Accu-Chek) 1 ea 02 XX Last administered on 02/08/17 01: 17; Admin Dose 1 EA; Start 01/15/17 at 02:00 Insulin Aspart 10 unit 10 unit ONCE PRN SC ELEVATED GLUCOSE Last administered on 01/21/17 02:15; Admin Dose 10 UNIT; Start 01/17/17 at 02:00 Sodium Chloride (1/2 NS) 1,000 ml @ 40 mls/hr Q24H IV Last administered on 01/18 21:32; Admin Dose 75 MLS/HR; Start 01/17/17 at 17:00; Status Future Hold Nitroglycerin (Nitroglycerin (Sl Tab) 0.4 Mg) 1 tab Q5M PRN SL ANGINA; Start at 21:30 Epoetin Sean (Epogen (Esrd)) 10,000 units MoWeFr@17 SC Last administered on 17:34; Admin Dose 10,000 UNITS; Start 01/19/17 at 17:00 Lubiprostone (Amitiza) 24 mcg BID PO Last administered on 02/09/17 08:42; Admin Dose 24 MCG; Start 01/21/17 at 21:00 Ondansetron HCl (Zofran Inj) 4 mg Q4H PRN IV NAUSEA AND/OR VOMITING Last administered on 01/28/17 13:32; Admin Dose 4 MG; Start 01/24/17 at 13:30 IV Flush (NS 10 ml) 10 ml PRN PRN IV IV PROTOCOL; Start 01/27/17 at 15:00 Multivitamins Therapeutic (Theragran) 1 tab DAILY PO Last administered on 08:43; Admin Dose 1 TAB; Start 01/30/17 at 09:00 Lactulose (Enulose) 30 gm Q6 GTB Last administered on 02/09/17 12:53; Admin Dose 30 GM; Start 01/29/17 at 20:00 Insulin Glargine (Lantus) 32 unit DAILY@20 SC Last administered on 02/08/17 21 :14; Admin Dose 32 UNIT; Start 01/31/17 at 20:00 Hydroxyzine HCl (Atarax) 10 mg Q6H PRN PO ITCHING Last administered on 23:22; Admin Dose 10 MG; Start 02/01/17 at 17:30 Triamcinolone Acetonide 1 applic 1 applic BID TOP Last administered on 08:43; Admin Dose 1 APPLIC; Start 02/01/17 at 21:00 Vancomycin HCl/ Sodium Chloride (Vancocin/NS) 250 ml @ 83.333 mls/ hr Q96H IVPB ; Start 02/09/17 at 21:00 ANA MELENDEZ MD Feb 09, 2017 14:51
[2017-02-09 15:21] LABS: BASOPHILS % 0.4 % (0.0-2.0); EOSINOPHILS # 0.3 10^3/ul (0.0-0.5); EOSINOPHILS % 6.1 % (0.0-7.0); HEMOGLOBIN 9.2 g/dl (14.0-18.0); LYMPHOCYTES # 0.9 10^3/ul (0.8-2.9); LYMPHOCYTES % 18.2 % (15.0-51.0); MEAN CORPUSCULAR HEMOGLOBIN 26.8 pg (29.0-33.0); MEAN CORPUSCULAR HGB CONC 31.7 g/dl (32.0-37.0); MEAN CORPUSCULAR VOLUME 84.5 fl (82.0-101.0); MONOCYTE # 0.4 10^3/ul (0.3-0.9); MONOCYTES % 9.3 % (0.0-11.0); NEUTROPHIL # 3.1 10^3/ul (1.6-7.5); NEUTROPHILS % 65.4 % (39.0-77.0); PLATELET COUNT 110 10^3/UL (140-415); RED BLOOD COUNT 3.43 10^6/ul (4.70-6.10); WHITE BLOOD COUNT 4.7 10^3/ul (4.8-10.8)
[2017-02-09 15:53] LABS: ALBUMIN 2.7 g/dl (3.3-4.9); ALBUMIN/GLOBULIN RATIO 0.52; BILIRUBIN,INDIRECT 0.4 mg/dl (0-1.1); BILIRUBIN,TOTAL 0.4 mg/dl (0.2-1.3); CALCIUM 7.6 mg/dl (8.4-10.2); CREATININE 6.75 mg/dl (0.61-1.24); POTASSIUM 4.2 mmol/L (3.5-5.1); TOTAL PROTEIN 7.8 g/dl (6.1-8.1)
[2017-02-09] MEDS: EPOETIN 10000 UNITS/1 ML INJ (ESRD) SC SCH (17:29)
[2017-02-09] MEDS ORDERED: VANCOMYCIN 1.25 GM in SOD CHLORIDE 0.9% 250 ML IVPB SCH (21:00)
[2017-02-09 21:32] VITALS: BP 118/64; RESP 20
[2017-02-09] MEDS: INSULIN GLARGINE [LANtus] 3 ML PEN SC SCH (21:59)
--- NOTE | 2017-02-09 22:22 | CONS ---
Date/Time of Note Date/Time of Note DATE: 02/09/17 TIME: 22:21 Assessment/Plan Assessment/Plan Chief Complaint/Hosp Course 61-year-old male admitted for shortness of breath. Patient is a history of hepatitis C cirrhosis of liver, morbid obesity obstructive sleep apnea, diabetes mellitus and hypertension. Recent was brought to the emergency room for abdominal distention and shortness of breath. He was slightly nauseous. No GI bleeding no chest pain no or [employer] problem no fever no chills. Problems: Additional Assessment/Plan Additional Assessment/Plan Additional Assessment/Plan 1. Shortness of breath multifactorial, much better 2. Morbid obesity, patient lost 22 pounds 3. Cirrhosis of liver with portal hypertension 4. Mild ascites 5. Diabetes 6. Hypertension 7. Renal failure patient on dialysis 8. Anasarca, almost to resolved 11. Severe constipation, better 12. Profound weakness, second to dialysis 13. Encephalopathy, much better, and ammonia is back to normal 14 epistaxis, resolved 15. Sleep apnea 16. Hematuria, better Plan Continue with the lactulose and dialysis Rifaximin has been stopped Physical therapy and ambulate patient Patient is steadily losing weight not ambulating,discussed with family,needs motivation Consultation Date/Type/Reason Admit Date/Time Jan 07, 2017 at 10:13 Initial Consult Date 01/09/17 Type of Consultation: renal Referring Provider: JENY MORA MD 24 HR Interval Summary Constitutional: improved Exam/Review of Systems Vital Signs Vitals Vital Signs Date Time Temp Pulse Resp B/P Pulse Ox O2 Delivery O2 Flow Rate FiO2 02/09/17 21:32 98.5 90 20 118/64 93 02/09/17 20:37 Nasal Cannula 2.0 28 Intake and Output 02/08/17 02/08/17 02/09/17 15:00 23:00 07:00 Intake Total 500 ml 100 ml Output Total 25 ml 50 ml Balance 475 ml 50 ml Exam Constitutional: alert, oriented, well developed Psych: nl mood/affect, no complaints Head: atraumatic, normocephalic Eyes: EOMI, PERRL, nl conjunctiva, nl lids, nl sclera ENMT: nl external ears & nose, nl lips & teeth, nl nasal mucosa & septum Neck: non-tender, supple Respiratory: clear to auscultation, normal air movement Cardiovascular: nl pulses, regular rate and rhythm Gastrointestinal: nl liver, spleen, non-tender, soft Musculoskeletal: nl extremities to inspection, nl gait and stance Extremities: normal pulses 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: [employer] II-XII intact, nl mental status, nl speech, nl strength Skin: nl turgor, No rash or lesions Lymph: nl lymph nodes Results Result Diagram: 02/09/17 1505 02/09/17 1505 Results 24 hrs Laboratory Tests Test 02/09/17 02:14 02/09/17 04:53 02/09/17 07:55 02/09/17 12:11 Bedside Glucose 181 173 203 Random Vancomycin Level 17.9 Test 02/09/17 15:05 02/09/17 17:24 02/09/17 21:33 White Blood Count 4.7 L Red Blood Count 3.43 L Hemoglobin 9.2 L Hematocrit 29.0 L Mean Corpuscular Volume 84.5 Mean Corpuscular Hemoglobin 26.8 L Mean Corpuscular Hemoglobin Concent 31.7 L Red Cell Distribution Width 20.0 H Platelet Count 110 L Mean Platelet Volume 10.0 Neutrophils % 65.4 Lymphocytes % 18.2 Monocytes % 9.3 Eosinophils % 6.1 Basophils % 0.4 Nucleated Red Blood Cells % 0.0 Neutrophils # 3.1 Lymphocytes # 0.9 Monocytes # 0.4 Eosinophils # 0.3 Basophils # 0.0 Nucleated Red Blood Cells # 0.0 Sodium Level 133 L Potassium Level 4.2 Chloride Level 95 L Carbon Dioxide Level 27 Anion Gap 15 Blood Urea Nitrogen 35 H Creatinine 6.75 H Glucose Level 214 Calcium Level 7.6 L Total Bilirubin 0.4 Direct Bilirubin 0.00 Indirect Bilirubin 0.4 Aspartate Amino Transf (AST/SGOT) 32 Alanine Aminotransferase (ALT/SGPT) 39 Alkaline Phosphatase 133 H Total Protein 7.8 Albumin 2.7 L Globulin 5.10 H Albumin/Globulin Ratio 0.52 Bedside Glucose 232 H 204 Medications Medications Current Medications Atorvastatin Calcium (Lipitor) 20 mg HS PO Last administered on 02/03/17t 21:14 ; Admin Dose 20 MG; Start 01/07/17 at 21:00; Status Future Hold Miscellaneous Information 1 ea NOTE XX ; Start 01/07/17 at 17:30 Glucose (Glutose) 15 gm Q15M PRN PO DECREASED GLUCOSE; Start 01/07/17 at 17:30 Glucose (Glutose) 22.5 gm Q15M PRN PO DECREASED GLUCOSE; Start 01/07/17 at 17: 30 Dextrose (D50w Syringe) 25 ml Q15M PRN IV DECREASED GLUCOSE; Start 01/07/17 at 17:30 Dextrose (D50w Syringe) 50 ml Q15M PRN IV DECREASED GLUCOSE; Start 01/07/17 at 17:30 Glucagon (Glucagen) 1 mg Q15M PRN IM DECREASED GLUCOSE; Start 01/07/17 at 17:30 Glucose (Glutose) 15 gm Q15M PRN BUCCAL DECREASED GLUCOSE; Start 01/07/17 at 17 :30 Nifedipine (Procardia Xl) 30 mg DAILY PO Last administered on 02/09/17 08:43; Admin Dose 30 MG; Start 01/08/17 at 09:00 Docusate Sodium (Colace) 100 mg BID PRN PO CONSTIPATION Last administered on 11:56; Admin Dose 100 MG; Start 01/08/17 at 14:00 Acetaminophen (Tylenol Tab) 500 mg Q6H PRN PO PAIN AND OR ELEVATED TEMP Last administered on 02/09/17 08:43; Admin Dose 500 MG; Start 01/08/17 at 15:30 Diagnostic Test (Pha) (Accu-Chek) 1 ea 02 XX Last administered on 02/08/17 01: 17; Admin Dose 1 EA; Start 01/15/17 at 02:00 Insulin Aspart 10 unit 10 unit ONCE PRN SC ELEVATED GLUCOSE Last administered on 01/21/17 02:15; Admin Dose 10 UNIT; Start 01/17/17 at 02:00 Sodium Chloride (1/2 NS) 1,000 ml @ 40 mls/hr Q24H IV Last administered on 01/18 21:32; Admin Dose 75 MLS/HR; Start 01/17/17 at 17:00; Status Future Hold Nitroglycerin (Nitroglycerin (Sl Tab) 0.4 Mg) 1 tab Q5M PRN SL ANGINA; Start at 21:30 Epoetin Sean (Epogen (Esrd)) 10,000 units MoWeFr@17 SC Last administered on 17:29; Admin Dose 10,000 UNITS; Start 01/19/17 at 17:00 Lubiprostone (Amitiza) 24 mcg BID PO Last administered on 02/09/17 21:35; Admin Dose 24 MCG; Start 01/21/17 at 21:00 Ondansetron HCl (Zofran Inj) 4 mg Q4H PRN IV NAUSEA AND/OR VOMITING Last administered on 01/28/17 13:32; Admin Dose 4 MG; Start 01/24/17 at 13:30 IV Flush (NS 10 ml) 10 ml PRN PRN IV IV PROTOCOL; Start 01/27/17 at 15:00 Multivitamins Therapeutic (Theragran) 1 tab DAILY PO Last administered on 08:43; Admin Dose 1 TAB; Start 01/30/17 at 09:00 Lactulose (Enulose) 30 gm Q6 GTB Last administered on 02/09/17 17:50; Admin Dose 30 GM; Start 01/29/17 at 20:00 Insulin Glargine (Lantus) 32 unit DAILY@20 SC Last administered on 02/09/17 21 :59; Admin Dose 32 UNIT; Start 01/31/17 at 20:00 Hydroxyzine HCl (Atarax) 10 mg Q6H PRN PO ITCHING Last administered on 23:22; Admin Dose 10 MG; Start 02/01/17 at 17:30 Triamcinolone Acetonide 1 applic 1 applic BID TOP Last administered on 08:43; Admin Dose 1 APPLIC; Start 02/01/17 at 21:00 Vancomycin HCl/ Sodium Chloride (Vancocin/NS) 250 ml @ 83.333 mls/ hr Q96H IVPB Last administered on 02/09/17 21:36; Admin Dose 83.333 MLS/HR; Start at 21:00 STUART STANLEY MD Feb 09, 2017 22:22
[2017-02-10] VITALS (11 sets, daily range): BP systolic 103–142; BP diastolic 51–81; PULSE 80–87; RESP 18–22
[2017-02-10] MEDS: ACCU-CHEK XX SCH (02:00)
[2017-02-10] MEDS: LACTULOSE 30ML CUP GTB SCH ×3 (05:46→17:43)
--- NOTE | 2017-02-10 08:32 | CONS ---
Date/Time of Note Date/Time of Note DATE: 02/10/17 TIME: 08:28 Assessment/Plan Assessment/Plan Chief Complaint/Hosp Course Impression: 1. Chronic kidney disease. He has had chronic kidney disease for at least a year and a half according to his primary care physician. His serum creatinine was around 1.8 to 2 prior to coming into the hospital. Since being hospitalized it has increased. He is now requiring hemodialysis. He does have nephrotic range proteinuria and I suspect he has underlying chronic glomerulonephritis possibly related to his hepatitis C. I told the patient and his today that I think he will need ongoing chronic hemodialysis. I told her we should make arrangements for outpatient hemodialysis. The patient continues to be very weak. I recommended that he go to a rehabilitation/SNF for physical therapy after discharge from the hospital. I discussed this with the patient's and son . I also gave her a referral to [facility] liver transplant. I specifically gave her the name of a liver specialist Dr. Sang Tobias for evaluation and treatment. He has been getting dialyzed Thursday. Hemodialysis has been ordered for today . 2. 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 He has been treated for hepatitis C virus in 2013 and according to his he has been negative for hepatitis C on 3 or 4 blood tests another hepatitis C has been ordered.. 3. Hypertension 4. Hyperlipidemia 5. Anemia, 6. Congestive heart failure . He has lost a substantial amount of fluid with dialysis. His weight has decreased 25 kg since being in the hospital. I am sure most of this is fluid removal. He seems overall better and his congestive heart failure is improved.. 7. Obstructive sleep apnea 8. Altered level of consciousness/hepatic encephalopathy, his ammonia level is back to normal and he is more awake and alert. He seems more alert and he does not have any asterixis. Continue current treatment for hepatic encephalopathy. 9. Rash possibly due to rifaximin. This was discontinued. 10. Gross hematuria. This has resolved . Problems: Consultation Date/Type/Reason Admit Date/Time Jan 07, 2017 at 10:13 Initial Consult Date 01/19/17 Type of Consultation: renal Referring Provider: JENY MORA MD 24 HR Interval Summary Free Text/Dictation He is awake and alert this morning . He is sitting up eating breakfast . Constitutional: no complaints Exam/Review of Systems Vital Signs Vitals Vital Signs Date Time Temp Pulse Resp B/P Pulse Ox O2 Delivery O2 Flow Rate FiO2 02/10/17 07:38 97.8 94 20 103/51 98 02/10/17 00:37 2.0 28 02/09/17 20:37 Nasal Cannula Intake and Output 02/09/17 02/09/17 02/10/17 14:59 22:59 06:59 Intake Total 340 ml 250 ml Output Total 75 ml Balance 265 ml 250 ml Exam Constitutional: alert, frail, obese, oriented Respiratory: clear to auscultation, normal air movement Cardiovascular: regular rate and rhythm Gastrointestinal: non-tender, soft Musculoskeletal: nl extremities to inspection Results Result Diagram: 02/09/17 1505 02/09/17 1505 Results 24 hrs Laboratory Tests Test 02/09/17 12:11 02/09/17 15:05 02/09/17 17:24 02/09/17 21:33 Bedside Glucose 203 232 H 204 White Blood Count 4.7 L Red Blood Count 3.43 L Hemoglobin 9.2 L Hematocrit 29.0 L Mean Corpuscular Volume 84.5 Mean Corpuscular Hemoglobin 26.8 L Mean Corpuscular Hemoglobin Concent 31.7 L Red Cell Distribution Width 20.0 H Platelet Count 110 L Mean Platelet Volume 10.0 Neutrophils % 65.4 Lymphocytes % 18.2 Monocytes % 9.3 Eosinophils % 6.1 Basophils % 0.4 Nucleated Red Blood Cells % 0.0 Neutrophils # 3.1 Lymphocytes # 0.9 Monocytes # 0.4 Eosinophils # 0.3 Basophils # 0.0 Nucleated Red Blood Cells # 0.0 Sodium Level 133 L Potassium Level 4.2 Chloride Level 95 L Carbon Dioxide Level 27 Anion Gap 15 Blood Urea Nitrogen 35 H Creatinine 6.75 H Glucose Level 214 Calcium Level 7.6 L Total Bilirubin 0.4 Direct Bilirubin 0.00 Indirect Bilirubin 0.4 Aspartate Amino Transf (AST/SGOT) 32 Alanine Aminotransferase (ALT/SGPT) 39 Alkaline Phosphatase 133 H Total Protein 7.8 Albumin 2.7 L Globulin 5.10 H Albumin/Globulin Ratio 0.52 Test 02/10/17 02:42 02/10/17 07:55 Bedside Glucose 196 198 Medications Medications Current Medications Atorvastatin Calcium (Lipitor) 20 mg HS PO Last administered on 02/03/17t 21:14 ; Admin Dose 20 MG; Start 01/07/17 at 21:00; Status Future Hold Miscellaneous Information 1 ea NOTE XX ; Start 01/07/17 at 17:30 Glucose (Glutose) 15 gm Q15M PRN PO DECREASED GLUCOSE; Start 01/07/17 at 17:30 Glucose (Glutose) 22.5 gm Q15M PRN PO DECREASED GLUCOSE; Start 01/07/17 at 17: 30 Dextrose (D50w Syringe) 25 ml Q15M PRN IV DECREASED GLUCOSE; Start 01/07/17 at 17:30 Dextrose (D50w Syringe) 50 ml Q15M PRN IV DECREASED GLUCOSE; Start 01/07/17 at 17:30 Glucagon (Glucagen) 1 mg Q15M PRN IM DECREASED GLUCOSE; Start 01/07/17 at 17:30 Glucose (Glutose) 15 gm Q15M PRN BUCCAL DECREASED GLUCOSE; Start 01/07/17 at 17 :30 Nifedipine (Procardia Xl) 30 mg DAILY PO Last administered on 02/09/17 08:43; Admin Dose 30 MG; Start 01/08/17 at 09:00 Docusate Sodium (Colace) 100 mg BID PRN PO CONSTIPATION Last administered on 11:56; Admin Dose 100 MG; Start 01/08/17 at 14:00 Acetaminophen (Tylenol Tab) 500 mg Q6H PRN PO PAIN AND OR ELEVATED TEMP Last administered on 02/09/17 08:43; Admin Dose 500 MG; Start 01/08/17 at 15:30 Diagnostic Test (Pha) (Accu-Chek) 1 ea 02 XX Last administered on 02/08/17 01: 17; Admin Dose 1 EA; Start 01/15/17 at 02:00 Insulin Aspart 10 unit 10 unit ONCE PRN SC ELEVATED GLUCOSE Last administered on 01/21/17 02:15; Admin Dose 10 UNIT; Start 01/17/17 at 02:00 Sodium Chloride (1/2 NS) 1,000 ml @ 40 mls/hr Q24H IV Last administered on 01/18 21:32; Admin Dose 75 MLS/HR; Start 01/17/17 at 17:00; Status Future Hold Nitroglycerin (Nitroglycerin (Sl Tab) 0.4 Mg) 1 tab Q5M PRN SL ANGINA; Start at 21:30 Epoetin Sean (Epogen (Esrd)) 10,000 units MoWeFr@17 SC Last administered on 17:29; Admin Dose 10,000 UNITS; Start 01/19/17 at 17:00 Lubiprostone (Amitiza) 24 mcg BID PO Last administered on 02/09/17 21:35; Admin Dose 24 MCG; Start 01/21/17 at 21:00 Ondansetron HCl (Zofran Inj) 4 mg Q4H PRN IV NAUSEA AND/OR VOMITING Last administered on 01/28/17 13:32; Admin Dose 4 MG; Start 01/24/17 at 13:30 IV Flush (NS 10 ml) 10 ml PRN PRN IV IV PROTOCOL; Start 01/27/17 at 15:00 Multivitamins Therapeutic (Theragran) 1 tab DAILY PO Last administered on 08:43; Admin Dose 1 TAB; Start 01/30/17 at 09:00 Lactulose (Enulose) 30 gm Q6 GTB Last administered on 02/09/17 23:43; Admin Dose 30 GM; Start 01/29/17 at 20:00 Insulin Glargine (Lantus) 32 unit DAILY@20 SC Last administered on 02/09/17 21 :59; Admin Dose 32 UNIT; Start 01/31/17 at 20:00 Hydroxyzine HCl (Atarax) 10 mg Q6H PRN PO ITCHING Last administered on 23:22; Admin Dose 10 MG; Start 02/01/17 at 17:30 Triamcinolone Acetonide 1 applic 1 applic BID TOP Last administered on 08:43; Admin Dose 1 APPLIC; Start 02/01/17 at 21:00 Vancomycin HCl/ Sodium Chloride (Vancocin/NS) 250 ml @ 83.333 mls/ hr Q96H IVPB Last administered on 02/09/17 21:36; Admin Dose 83.333 MLS/HR; Start at 21:00 ANA MELENDEZ MD Feb 10, 2017 08:32
--- NOTE | 2017-02-10 08:32 | CONS ---
Date/Time of Note Date/Time of Note DATE: 02/10/17 TIME: 08:30 Assessment/Plan Assessment/Plan Additional Assessment/Plan Assessment recommendations; 1. Patient admitted with pulmonary edema doing very well now requiring hemodialysis for end-stage renal disease. 2. Underlying morbid obesity. 3. Hypertension. 4. Diabetes. 5. Anemia. 6. Hemoptysis with interval resolution. 7. Likely underlying sleep apnea. Continue current treatment. Consider discharge. Consultation Date/Type/Reason Admit Date/Time Jan 07, 2017 at 10:13 Initial Consult Date 01/26/17 Type of Consultation: Pulmonary Referring Provider: JENY MORA MD 24 HR Interval Summary Free Text/Dictation Patient condition stable. Remains awake and alert. Denies any shortness of breath, chest pain, any further hemoptysis. General exam; elderly male, morbidly obese, currently eating breakfast sitting on the edge of the bed. Exam/Review of Systems Vital Signs Vitals Vital Signs Date Time Temp Pulse Resp B/P Pulse Ox O2 Delivery O2 Flow Rate FiO2 02/10/17 07:38 97.8 94 20 103/51 98 02/10/17 00:37 2.0 28 02/09/17 20:37 Nasal Cannula Intake and Output 02/09/17 02/09/17 02/10/17 15:00 23:00 07:00 Intake Total 340 ml 250 ml Output Total 75 ml Balance 265 ml 250 ml Exam HEENT exam; supple neck, positive JVD. No lymphadenopathy. Midline trachea. No thyromegaly. Chest exam; diminished but clear breath sound. S1-S2 audible, no murmurs. Regular rhythm. Abdomen exam; soft, no organomegaly. Bowel sounds audible. Extremity exam; no peripheral edema. Patient has a chronic appearing skin changes in both lower extremities. 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 Results Result Diagram: 02/09/17 1505 02/09/17 1505 Results 24 hrs Laboratory Tests Test 02/09/17 12:11 02/09/17 15:05 02/09/17 17:24 02/09/17 21:33 Bedside Glucose 203 232 H 204 White Blood Count 4.7 L Red Blood Count 3.43 L Hemoglobin 9.2 L Hematocrit 29.0 L Mean Corpuscular Volume 84.5 Mean Corpuscular Hemoglobin 26.8 L Mean Corpuscular Hemoglobin Concent 31.7 L Red Cell Distribution Width 20.0 H Platelet Count 110 L Mean Platelet Volume 10.0 Neutrophils % 65.4 Lymphocytes % 18.2 Monocytes % 9.3 Eosinophils % 6.1 Basophils % 0.4 Nucleated Red Blood Cells % 0.0 Neutrophils # 3.1 Lymphocytes # 0.9 Monocytes # 0.4 Eosinophils # 0.3 Basophils # 0.0 Nucleated Red Blood Cells # 0.0 Sodium Level 133 L Potassium Level 4.2 Chloride Level 95 L Carbon Dioxide Level 27 Anion Gap 15 Blood Urea Nitrogen 35 H Creatinine 6.75 H Glucose Level 214 Calcium Level 7.6 L Total Bilirubin 0.4 Direct Bilirubin 0.00 Indirect Bilirubin 0.4 Aspartate Amino Transf (AST/SGOT) 32 Alanine Aminotransferase (ALT/SGPT) 39 Alkaline Phosphatase 133 H Total Protein 7.8 Albumin 2.7 L Globulin 5.10 H Albumin/Globulin Ratio 0.52 Test 02/10/17 02:42 02/10/17 07:55 Bedside Glucose 196 198 Medications Medications Current Medications Atorvastatin Calcium (Lipitor) 20 mg HS PO Last administered on 02/03/17 21:14 ; Admin Dose 20 MG; Start 01/07/17 at 21:00; Status Future Hold Miscellaneous Information 1 ea NOTE XX ; Start 01/07/17 at 17:30 Glucose (Glutose) 15 gm Q15M PRN PO DECREASED GLUCOSE; Start 01/07/17 at 17:30 Glucose (Glutose) 22.5 gm Q15M PRN PO DECREASED GLUCOSE; Start 01/07/17 at 17: 30 Dextrose (D50w Syringe) 25 ml Q15M PRN IV DECREASED GLUCOSE; Start 01/07/17 at 17:30 Dextrose (D50w Syringe) 50 ml Q15M PRN IV DECREASED GLUCOSE; Start 01/07/17 at 17:30 Glucagon (Glucagen) 1 mg Q15M PRN IM DECREASED GLUCOSE; Start 01/07/17 at 17:30 Glucose (Glutose) 15 gm Q15M PRN BUCCAL DECREASED GLUCOSE; Start 01/07/17 at 17 :30 Nifedipine (Procardia Xl) 30 mg DAILY PO Last administered on 02/09/17 08:43; Admin Dose 30 MG; Start 01/08/17 at 09:00 Docusate Sodium (Colace) 100 mg BID PRN PO CONSTIPATION Last administered on 11:56; Admin Dose 100 MG; Start 01/08/17 at 14:00 Acetaminophen (Tylenol Tab) 500 mg Q6H PRN PO PAIN AND OR ELEVATED TEMP Last administered on 02/09/17 08:43; Admin Dose 500 MG; Start 01/08/17 at 15:30 Diagnostic Test (Pha) (Accu-Chek) 1 ea 02 XX Last administered on 02/08/17 01: 17; Admin Dose 1 EA; Start 01/15/17 at 02:00 Insulin Aspart 10 unit 10 unit ONCE PRN SC ELEVATED GLUCOSE Last administered on 01/21/17 02:15; Admin Dose 10 UNIT; Start 01/17/17 at 02:00 Sodium Chloride (1/2 NS) 1,000 ml @ 40 mls/hr Q24H IV Last administered on 01/18 21:32; Admin Dose 75 MLS/HR; Start 01/17/17 at 17:00; Status Future Hold Nitroglycerin (Nitroglycerin (Sl Tab) 0.4 Mg) 1 tab Q5M PRN SL ANGINA; Start at 21:30 Epoetin Sean (Epogen (Esrd)) 10,000 units MoWeFr@17 SC Last administered on 17:29; Admin Dose 10,000 UNITS; Start 01/19/17 at 17:00 Lubiprostone (Amitiza) 24 mcg BID PO Last administered on 02/09/17 21:35; Admin Dose 24 MCG; Start 01/21/17 at 21:00 Ondansetron HCl (Zofran Inj) 4 mg Q4H PRN IV NAUSEA AND/OR VOMITING Last administered on 01/28/17 13:32; Admin Dose 4 MG; Start 01/24/17 at 13:30 IV Flush (NS 10 ml) 10 ml PRN PRN IV IV PROTOCOL; Start 01/27/17 at 15:00 Multivitamins Therapeutic (Theragran) 1 tab DAILY PO Last administered on 08:43; Admin Dose 1 TAB; Start 01/30/17 at 09:00 Lactulose (Enulose) 30 gm Q6 GTB Last administered on 02/09/17 23:43; Admin Dose 30 GM; Start 01/29/17 at 20:00 Insulin Glargine (Lantus) 32 unit DAILY@20 SC Last administered on 02/09/17 21 :59; Admin Dose 32 UNIT; Start 01/31/17 at 20:00 Hydroxyzine HCl (Atarax) 10 mg Q6H PRN PO ITCHING Last administered on 23:22; Admin Dose 10 MG; Start 02/01/17 at 17:30 Triamcinolone Acetonide 1 applic 1 applic BID TOP Last administered on 08:43; Admin Dose 1 APPLIC; Start 02/01/17 at 21:00 Vancomycin HCl/ Sodium Chloride (Vancocin/NS) 250 ml @ 83.333 mls/ hr Q96H IVPB Last administered on 02/09/17 21:36; Admin Dose 83.333 MLS/HR; Start at 21:00 WALDO FRASER Feb 10, 2017 08:32
[2017-02-10] MEDS: ALBUTEROL/IPRATROPIUM (NEB) 3 ML AMP HHN SCH ×6 (08:50→20:38)
[2017-02-10] MEDS: LUBIPROSTONE 24 MCG CAP PO SCH ×2 (09:00→20:55)
[2017-02-10] MEDS: MULTIVITAMINS THERAPEUTIC TAB PO SCH (09:00)
[2017-02-10] MEDS: TRIAMCINOLONE ACET 0.1% 15 GM OINT TOP SCH ×2 (09:00→20:56)
[2017-02-10] MEDS: NIFEdipine (XL) 30 MG TAB PO SCH (09:00)
[2017-02-10] MEDS: INSULIN ASPART [NOVOLOG] 3 ML PEN SC SCH ×4 (09:01→21:01)
--- NOTE | 2017-02-10 10:46 | CONS ---
Date/Time of Note Date/Time of Note DATE: 02/10/17 TIME: 10:45 Assessment/Plan Assessment/Plan Chief Complaint/Hosp Course 61-year-old male admitted for shortness of breath. Patient is a history of hepatitis C cirrhosis of liver, morbid obesity obstructive sleep apnea, diabetes mellitus and hypertension. Recent was brought to the emergency room for abdominal distention and shortness of breath. He was slightly nauseous. No GI bleeding no chest pain no or SLEEP MANAGER problem no fever no chills. Problems: Additional Assessment/Plan Additional Assessment/Plan 1. Shortness of breath multifactorial, much better 2. Morbid obesity, patient steadily losing weight 3. Cirrhosis of liver with portal hypertension 4. Mild ascites 5. Diabetes 6. Hypertension 7. Renal failure patient on dialysis 8. Anasarca, almost to resolved 11. Severe constipation, better 12. Profound weakness, second to dialysis 13. Encephalopathy, much better, and ammonia is back to normal 14 epistaxis, resolved 15. Sleep apnea 16. Hematuria, better Plan Continue with the lactulose and dialysis Rifaximin has been stopped Physical therapy and ambulate patient Patient is steadily losing weight not ambulating,discussed with family,needs motivation Consultation Date/Type/Reason Admit Date/Time Jan 07, 2017 at 10:13 Initial Consult Date 01/09/17 Type of Consultation: Pulmonary Referring Provider: JENY MORA MD 24 HR Interval Summary Free Text/Dictation Poor appetite Exam/Review of Systems Vital Signs Vitals Vital Signs Date Time Temp Pulse Resp B/P Pulse Ox O2 Delivery O2 Flow Rate FiO2 02/10/17 09:15 80 02/10/17 08:51 2.0 02/10/17 07:45 17 02/10/17 07:38 97.8 103/51 98 02/10/17 00:37 28 02/09/17 20:37 Nasal Cannula Intake and Output 02/09/17 02/09/17 02/10/17 15:00 23:00 07:00 Intake Total 340 ml 250 ml Output Total 75 ml Balance 265 ml 250 ml Exam Constitutional: alert, oriented, well developed Psych: nl mood/affect, no complaints Head: atraumatic, normocephalic Eyes: EOMI, PERRL, nl conjunctiva, nl lids, nl sclera ENMT: nl external ears & nose, nl lips & teeth, nl nasal mucosa & septum Neck: non-tender, supple Respiratory: clear to auscultation, normal air movement Cardiovascular: nl pulses, regular rate and rhythm Gastrointestinal: nl liver, spleen, non-tender, soft Musculoskeletal: nl extremities to inspection, nl gait and stance Extremities: normal pulses 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: SLEEP MANAGER II-XII intact, nl mental status, nl speech, nl strength Skin: nl turgor, No rash or lesions Lymph: nl lymph nodes Results Result Diagram: 02/09/17 1505 02/09/17 1505 Results 24 hrs Laboratory Tests Test 02/09/17 12:11 02/09/17 15:05 02/09/17 17:24 02/09/17 21:33 Bedside Glucose 203 232 H 204 White Blood Count 4.7 L Red Blood Count 3.43 L Hemoglobin 9.2 L Hematocrit 29.0 L Mean Corpuscular Volume 84.5 Mean Corpuscular Hemoglobin 26.8 L Mean Corpuscular Hemoglobin Concent 31.7 L Red Cell Distribution Width 20.0 H Platelet Count 110 L Mean Platelet Volume 10.0 Neutrophils % 65.4 Lymphocytes % 18.2 Monocytes % 9.3 Eosinophils % 6.1 Basophils % 0.4 Nucleated Red Blood Cells % 0.0 Neutrophils # 3.1 Lymphocytes # 0.9 Monocytes # 0.4 Eosinophils # 0.3 Basophils # 0.0 Nucleated Red Blood Cells # 0.0 Sodium Level 133 L Potassium Level 4.2 Chloride Level 95 L Carbon Dioxide Level 27 Anion Gap 15 Blood Urea Nitrogen 35 H Creatinine 6.75 H Glucose Level 214 Calcium Level 7.6 L Total Bilirubin 0.4 Direct Bilirubin 0.00 Indirect Bilirubin 0.4 Aspartate Amino Transf (AST/SGOT) 32 Alanine Aminotransferase (ALT/SGPT) 39 Alkaline Phosphatase 133 H Total Protein 7.8 Albumin 2.7 L Globulin 5.10 H Albumin/Globulin Ratio 0.52 Test 02/10/17 02:42 02/10/17 07:55 Bedside Glucose 196 198 Medications Medications Current Medications Atorvastatin Calcium (Lipitor) 20 mg HS PO Last administered on 02/03/17t 21:14 ; Admin Dose 20 MG; Start 01/07/17 at 21:00; Status Future Hold Miscellaneous Information 1 ea NOTE XX ; Start 01/07/17 at 17:30 Glucose (Glutose) 15 gm Q15M PRN PO DECREASED GLUCOSE; Start 01/07/17 at 17:30 Glucose (Glutose) 22.5 gm Q15M PRN PO DECREASED GLUCOSE; Start 01/07/17 at 17: 30 Dextrose (D50w Syringe) 25 ml Q15M PRN IV DECREASED GLUCOSE; Start 01/07/17 at 17:30 Dextrose (D50w Syringe) 50 ml Q15M PRN IV DECREASED GLUCOSE; Start 01/07/17 at 17:30 Glucagon (Glucagen) 1 mg Q15M PRN IM DECREASED GLUCOSE; Start 01/07/17 at 17:30 Glucose (Glutose) 15 gm Q15M PRN BUCCAL DECREASED GLUCOSE; Start 01/07/17 at 17 :30 Nifedipine (Procardia Xl) 30 mg DAILY PO Last administered on 02/09/17 08:43; Admin Dose 30 MG; Start 01/08/17 at 09:00 Docusate Sodium (Colace) 100 mg BID PRN PO CONSTIPATION Last administered on 11:56; Admin Dose 100 MG; Start 01/08/17 at 14:00 Acetaminophen (Tylenol Tab) 500 mg Q6H PRN PO PAIN AND OR ELEVATED TEMP Last administered on 02/09/17 08:43; Admin Dose 500 MG; Start 01/08/17 at 15:30 Diagnostic Test (Pha) (Accu-Chek) 1 ea 02 XX Last administered on 02/08/17 01: 17; Admin Dose 1 EA; Start 01/15/17 at 02:00 Insulin Aspart 10 unit 10 unit ONCE PRN SC ELEVATED GLUCOSE Last administered on 01/21/17 02:15; Admin Dose 10 UNIT; Start 01/17/17 at 02:00 Sodium Chloride (1/2 NS) 1,000 ml @ 40 mls/hr Q24H IV Last administered on 01/18 21:32; Admin Dose 75 MLS/HR; Start 01/17/17 at 17:00; Status Future Hold Nitroglycerin (Nitroglycerin (Sl Tab) 0.4 Mg) 1 tab Q5M PRN SL ANGINA; Start at 21:30 Epoetin Sean (Epogen (Esrd)) 10,000 units MoWeFr@17 SC Last administered on 17:29; Admin Dose 10,000 UNITS; Start 01/19/17 at 17:00 Lubiprostone (Amitiza) 24 mcg BID PO Last administered on 02/09/17 21:35; Admin Dose 24 MCG; Start 01/21/17 at 21:00 Ondansetron HCl (Zofran Inj) 4 mg Q4H PRN IV NAUSEA AND/OR VOMITING Last administered on 01/28/17 13:32; Admin Dose 4 MG; Start 01/24/17 at 13:30 IV Flush (NS 10 ml) 10 ml PRN PRN IV IV PROTOCOL; Start 01/27/17 at 15:00 Multivitamins Therapeutic (Theragran) 1 tab DAILY PO Last administered on 08:43; Admin Dose 1 TAB; Start 01/30/17 at 09:00 Lactulose (Enulose) 30 gm Q6 GTB Last administered on 02/09/17 23:43; Admin Dose 30 GM; Start 01/29/17 at 20:00 Insulin Glargine (Lantus) 32 unit DAILY@20 SC Last administered on 02/09/17 21 :59; Admin Dose 32 UNIT; Start 01/31/17 at 20:00 Hydroxyzine HCl (Atarax) 10 mg Q6H PRN PO ITCHING Last administered on 23:22; Admin Dose 10 MG; Start 02/01/17 at 17:30 Triamcinolone Acetonide 1 applic 1 applic BID TOP Last administered on 08:43; Admin Dose 1 APPLIC; Start 02/01/17 at 21:00 Vancomycin HCl/ Sodium Chloride (Vancocin/NS) 250 ml @ 83.333 mls/ hr Q96H IVPB Last administered on 02/09/17 21:36; Admin Dose 83.333 MLS/HR; Start at 21:00 STUART STANLEY MD Feb 10, 2017 10:46
--- NOTE | 2017-02-10 11:12 | PN ---
DATE: 02/10/2017 SUBJECTIVE DATA: The patient is complaining of generalized weakness, very poor appetite. Shortness of breath is currently improved vital signs. OBJECTIVE DATA: Temperature 97.8, blood pressure 103/51, O2 sat 98 percent on 2 L nasal cannula. JVD is not increased. Chest clear at the bases. Heart: S1, S2. No definite gallops. Extremities have decreased edema. LABORATORY AND DIAGNOSTIC DATA: Blood glucose levels 204, 196 and 98 today. Chest x-ray done yesterday showed decrease in pulmonary vascular congestion, new opacity in the left costophrenic angle, likely representing atelectasis. Repeat urine culture is pending. Dasilva catheter has been discontinued. IMPRESSION: 1. Chronic renal failure with diabetic nephrosclerosis with recent worsening, on hemodialysis. 2. Mild anemia and thrombocytopenia, improved. 3. Cirrhosis with portal hypertension, status post hep C infection, with complete resolution with treatment. 4. Morbid obesity. 5. Obstructive sleep apnea. 6. Candiduria with pyuria. 7. Congestive heart failure, resolved. 8. Mild underlying depression. PLAN: Case discussed with Dr. Castro. Continue hemodialysis. The patient's functional status is still very poor and would benefit from a short trial of rehab. Will request acute rehab unit consultation prior to discharge. Dictated By: Ivan Brice MD /[email or web address] /Document#: [id number]
[2017-02-10] MEDS: INSULIN GLARGINE [LANtus] 3 ML PEN SC SCH (20:59)
== END 2017-02-10 22:30 | DRG 432 ==
LOC: E/R 07:58 → MS4 10:13 → TEL 01-14 13:13 → MS2 01-16 18:10 → TEL 01-18 22:00 → MS2 02-03 18:48
PROVIDERS: ADMIT Internal Medicine; ATTEND Internal Medicine
PROC: 0W9G3ZZ Drainage of Peritoneal Cavity, Percutaneous Approach (ICD-10-PCS; 2017-01-20)
PROC: 02H633Z Insertion of Infusion Device into Right Atrium, Percutaneous Approach (ICD-10-PCS; 2017-01-23)
PROC: 0JH63XZ Insertion of Tunneled Vascular Access Device into Chest Subcutaneous Tissue and Fascia, Percutaneous Approach (ICD-10-PCS; 2017-01-23)
PROC: 5A1D60Z (ICD-10-PCS; principal; 2017-01-23 10:00)
PROC: 02HV33Z Insertion of Infusion Device into Superior Vena Cava, Percutaneous Approach (ICD-10-PCS; 2017-01-27)
PROC: B548ZZA Ultrasonography of Superior Vena Cava, Guidance (ICD-10-PCS; 2017-01-27)
PROC: 2Y41X5Z Packing of Nasal Region using Packing Material (ICD-10-PCS; 2017-02-01)
PROC: 30233N1 Transfusion of Nonautologous Red Blood Cells into Peripheral Vein, Percutaneous Approach (ICD-10-PCS; 2017-02-01)
PROC: 6A551Z2 Pheresis of Platelets, Multiple (ICD-10-PCS; 2017-02-01)
DX: K74.69 Other cirrhosis of liver (principal); N18.6 End stage renal disease; J96.92 Respiratory failure, unspecified with hypercapnia; I13.2 Hypertensive heart and chronic kidney disease with heart failure and with stage 5 chronic kidney disease, or end stage renal disease; N17.9 Acute kidney failure, unspecified; J18.9 Pneumonia, unspecified organism; E87.0 Hyperosmolality and hypernatremia; D69.59 Other secondary thrombocytopenia; R18.8 Other ascites; K76.6 Portal hypertension; I50.32 Chronic diastolic (congestive) heart failure; Z68.42 Body mass index [BMI] 45.0-49.9, adult; R78.81 Bacteremia; B37.49 Other urogenital candidiasis; R04.2 Hemoptysis; E11.22 Type 2 diabetes mellitus with diabetic chronic kidney disease; E66.01 Morbid (severe) obesity due to excess calories; G47.33 Obstructive sleep apnea (adult) (pediatric); B19.20 Unspecified viral hepatitis C without hepatic coma; E78.5 Hyperlipidemia, unspecified; E87.5 Hyperkalemia; Z87.891 Personal history of nicotine dependence; D64.9 Anemia, unspecified; E03.9 Hypothyroidism, unspecified; E83.51 Hypocalcemia; E88.09 Other disorders of plasma-protein metabolism, not elsewhere classified; K59.00 Constipation, unspecified; N14.1 Nephropathy induced by other drugs, medicaments and biological substances; T50.2X5A Adverse effect of carbonic-anhydrase inhibitors, benzothiadiazides and other diuretics, initial encounter; Y92.239 Unspecified place in hospital as the place of occurrence of the external cause; K72.90 Hepatic failure, unspecified without coma; B95.61 Methicillin susceptible Staphylococcus aureus infection as the cause of diseases classified elsewhere; F32.9 Major depressive disorder, single episode, unspecified; R31.9 Hematuria, unspecified; R04.0 Epistaxis; R11.10 Vomiting, unspecified; L27.0 Generalized skin eruption due to drugs and medicaments taken internally; T36.6X5A Adverse effect of rifampicins, initial encounter; J34.2 Deviated nasal septum; R79.89 Other specified abnormal findings of blood chemistry
CPT/HCPCS: 36415; 36430; 36569; 36600; 70450; 71010; 74176; 76705; 76937; 80048; 80053; 80202; 81001; 81003; 82042; 82140; 82270; 82550; 82553; 82570; 82595; 82728; 82803; 82945; 82962; 83540; 83605; 83615; 83735; 83880; 83970; 84100; 84145; 84157; 84300; 84436; 84443; 84484; 85014; 85018; 85025; 85610; 85651; 85730; 86140; 86160; 86430; 86704; 86709; 86803; 86850; 86900; 86901; 86920; 87040; 87070; 87086; 87102; 87116; 87340; 87522; 89050; 90935; 93005; 93306; 93970; 94640; 94664; 97110; 97116; 97161; 97530; C1752; J0690; J0698; J1644; J1815; J1940; J2250; J2405; J2543; J2916; J2920; J3010; J3370; J3480; J7050; J7070; J7512; P9016; P9035; Q4081

== ENCOUNTER 2017-02-10 16:52 | Inpatient (IN) | payer BC ==
[~2017-02-10] VITALS: Ht 181.6 cm; Wt 129.5 kg
[2017-02-10 23:00] VITALS: BP 112/60; PULSE 92; RESP 18; Ht 181.6 cm; Wt 129.5 kg
[2017-02-10 23:35] VITALS: BP 110/59; RESP 20
[2017-02-10] MEDS ORDERED: VANCOMYCIN IV PER PHARMACY XX SCH (23:45)
[2017-02-11] MEDS ORDERED: hydrOXYzine HCL 10 MG TAB PO PRN
[2017-02-11] MEDS ORDERED: DOCUSATE SODIUM 100 MG CAP PO PRN
[2017-02-11] MEDS ORDERED: GLUCOSE GEL 15 GRAM TUBE PO PRN ×2
[2017-02-11] MEDS ORDERED: DEXTROSE 50% 50 ML SYRINGE IV PRN ×2
[2017-02-11] MEDS ORDERED: GLUCOSE GEL 15 GRAM TUBE BUCCAL PRN
[2017-02-11] MEDS ORDERED: GLUCAGON 1 MG INJ IM PRN
[2017-02-11] MEDS ORDERED: ALBUTEROL/IPRATROPIUM (NEB) 3 ML AMP HHN PRN (00:30)
[2017-02-11] MEDS: ACCUCHECK AT 2AM (Patients on SS coverage) XX SCH (02:00)
[2017-02-11] MEDS: LACTULOSE 30ML CUP PO SCH ×5 (06:37→20:30)
[2017-02-11] MEDS: FUROSEMIDE 40 MG TAB PO SCH (06:38)
[2017-02-11 07:02] LABS: BASOPHILS % 0.8 % (0.0-2.0); EOSINOPHILS # 0.3 10^3/ul (0.0-0.5); EOSINOPHILS % 5.7 % (0.0-7.0); HEMATOCRIT 29.1 % (42.0-52.0); HEMOGLOBIN 8.9 g/dl (14.0-18.0); LYMPHOCYTES % 21.4 % (15.0-51.0); MEAN CORPUSCULAR HEMOGLOBIN 26.1 pg (29.0-33.0); MEAN CORPUSCULAR HGB CONC 30.6 g/dl (32.0-37.0); MEAN CORPUSCULAR VOLUME 85.3 fl (82.0-101.0); MEAN PLATELET VOLUME 10.8 fl (7.4-10.4); MONOCYTE # 0.5 10^3/ul (0.3-0.9); MONOCYTES % 9.6 % (0.0-11.0); NEUTROPHIL # 2.9 10^3/ul (1.6-7.5); NEUTROPHILS % 61.9 % (39.0-77.0); PLATELET COUNT 116 10^3/UL (140-415); RED BLOOD COUNT 3.41 10^6/ul (4.70-6.10); RED CELL DISTRIBUTION WIDTH 20.3 % (11.5-14.5); WHITE BLOOD COUNT 4.7 10^3/ul (4.8-10.8)
[2017-02-11] MEDS: Insulin NOVOLOG SS MILD Algorithm (SS with meals and bedtime) SC SCH ×4 (07:05→20:30)
[2017-02-11 07:31] LABS: ALBUMIN 2.5 g/dl (3.3-4.9); ALBUMIN/GLOBULIN RATIO 0.5; BILIRUBIN,INDIRECT 0.3 mg/dl (0-1.1); BILIRUBIN,TOTAL 0.3 mg/dl (0.2-1.3); CALCIUM 7.5 mg/dl (8.4-10.2); CREATININE 5.7 mg/dl (0.61-1.24); POTASSIUM 3.8 mmol/L (3.5-5.1); TOTAL PROTEIN 7.5 g/dl (6.1-8.1)
[2017-02-11 07:53] VITALS: BP 117/57; RESP 20
[2017-02-11] MEDS: TRIAMCINOLONE ACET 0.1% 15 GM OINT TOP SCH ×2 (09:04→20:26)
[2017-02-11] MEDS: MULTIVITAMINS THERAPEUTIC TAB PO SCH (09:05)
[2017-02-11] MEDS: NIFEdipine (XL) 30 MG TAB PO SCH (09:05)
[2017-02-11] MEDS: LUBIPROSTONE 24 MCG CAP PO SCH ×2 (09:05→22:17)
[2017-02-11] MEDS: ALBUTEROL/IPRATROPIUM (NEB) 3 ML AMP HHN SCH ×4 (09:32→20:15)
--- NOTE | 2017-02-11 09:54 | CONS ---
Date/Time of Note Date/Time of Note DATE: 02/11/17 TIME: 09:48 Assessment/Plan Assessment/Plan Additional Assessment/Plan REHABILITATION POST-ADMISSION PHYSICIAN EVALUATION: REHABILITATION IMPAIRMENT CATEGORY: Disuse Myopathy ACTIVE COMORBIDITIES: 1. Cirrhosis secondary to Hepatitis C 2. Acute on Chronic Renal Failure on Hemodialysis 3. Encephalopathy improving 4. Hypertension 5. Diabetes Mellitus type 2 6. CHF 7. Anemia 8. Sleep apnea 9. Morbid Obesity 10. Impairments in self-care, mobility and cognition. PLAN: The patient has been admitted for comprehensive interdisciplinary acute rehab and is anticipated to tolerate 3 hours of daily therapy in divided doses for at least 5/7 days a week. The treatment plan will include: 1. Physical therapy to focus on bed mobility, transfers, and household ambulation with the goal of having the patient reach a standby assist for ambulation. 2. Occupational therapy to focus on hygiene, grooming, dressing, bathing, and toileting activities with the goal of having the patient reach a standby assist level. 3. Speech therapy for full cognitive and communication assessment and retraining with the goal of having the patient return to baseline cognition. 4. Rehabilitation nursing for carryover of therapeutic interventions, the goal of continent of bowel, and patient and family education with regards to the aforementioned issues. ESTIMATED LENGTH OF STAY: 14 days. DISPOSITION GOAL: Home. Rehabilitation Barrier: Renal Failure Intervention for barrier: Hemodialysis per renal I acknowledge that I performed a full physical examination on this patient within 24 hours of admission to the rehabilitation unit and believe the patient is a good candidate for comprehensive interdisciplinary rehab care and is anticipated to make reasonable goals in a reasonable period of time as outlined above. Consultation Date/Type/Reason Admit Date/Time Feb 10, 2017 at 22:43 Hx of Present Illness Patient is a pleasant 61-year-old gentleman with a history of multiple medical comorbidities including hepatitis C diabetes mellitus type 2 hypertension who was admitted with increased shortness of breath and abdominal distention. Patient was noted to have cirrhosis of the liver with portal hypertension in addition to congestive heart failure and acute on chronic kidney failure. The patient was placed on hemodialysis. Patient was also noted to proximal muscle weakness due to prolonged bedrest and felt to likely have disuse myopathy. Patient's hospital course also notable for hepatic encephalopathy which has started to improve. Patient has now been cleared to transfer to the rehabilitation unit for conference of interdisciplinary rehab care Eyes: No discharge, No no complaints, No other, No pain, No redness, No visual change ENT: No bleeding, No congestion, No discharge, No dysphagia, No no complaints, No other, No pain, No sore throat Past Medical History Cirrhosis Hypertension Diabetes Mellitus Type 2 CHF Sleep Apnea Morbid Obesity FUNCTIONAL HISTORY: Prior to recent events, the patient was independent in self-care tasks and mobility. Currently, patient requires moderate assist for self-care and mobility tasks. I have reviewed the preadmission screen and the patient's current functional status is consistent with the preadmission screen. SOCIAL HISTORY: The patient lives at home with his in a second story home and hopes to return there upon discharge. Past Surgical History Past Surgical Hx: appendectomy, other Social History Smoking Status: Former smoker Exam/Review of Systems Vital Signs Vitals Vital Signs Date Time Temp Pulse Resp B/P Pulse Ox O2 Delivery O2 Flow Rate FiO2 02/11/17 07:53 98.5 104 20 117/57 98 02/10/17 23:00 Nasal Cannula 2.0 Intake and Output 02/10/17 02/10/17 02/11/17 15:00 23:00 07:00 Intake Total 380 ml Balance 380 ml Exam 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ly the patient is awake and alert and oriented to person and hospital. He will follow simple one-step commands. He demonstrates antigravity strength in bilateral upper extremity and lower extremity but impaired static and dynamic balance. Head: No atraumatic, No hematomas, No lacerations, No normocephalic, No other Eyes: No EOMI, No PERRL, No fundi, disc, No icteric, No nl conjunctiva, No nl lids, No nl sclera, No other ENMT: No intubated, No mucosa pink and moist, No nl external ears & nose, No nl lips & teeth, No nl nasal mucosa & septum, No other, No tympanic membranes Neck: No bruits, No jvd, No masses, No non-tender, No nuchal rigidity, No other , No supple, No thyromegaly Respiratory: clear to auscultation Cardiovascular: regular rate and rhythm Gastrointestinal: soft Results Result Diagram: 02/11/17 0621 02/11/17 0621 Results 24 hrs Laboratory Tests Test 02/11/17 02:53 02/11/17 06:21 02/11/17 08:02 Bedside Glucose 173 133 White Blood Count 4.7 L Red Blood Count 3.41 L Hemoglobin 8.9 L Hematocrit 29.1 L Mean Corpuscular Volume 85.3 Mean Corpuscular Hemoglobin 26.1 L Mean Corpuscular Hemoglobin Concent 30.6 L Red Cell Distribution Width 20.3 H Platelet Count 116 L Mean Platelet Volume 10.8 H Neutrophils % 61.9 Lymphocytes % 21.4 Monocytes % 9.6 Eosinophils % 5.7 Basophils % 0.8 Nucleated Red Blood Cells % 0.0 Neutrophils # 2.9 Lymphocytes # 1.0 Monocytes # 0.5 Eosinophils # 0.3 Basophils # 0.0 Nucleated Red Blood Cells # 0.0 Sodium Level 137 Potassium Level 3.8 Chloride Level 100 Carbon Dioxide Level 28 Anion Gap 13 Blood Urea Nitrogen 27 H Creatinine 5.70 H Glucose Level 141 # Calcium Level 7.5 L Total Bilirubin 0.3 Direct Bilirubin 0.00 Indirect Bilirubin 0.3 Aspartate Amino Transf (AST/SGOT) 29 Alanine Aminotransferase (ALT/SGPT) 37 Alkaline Phosphatase 112 Total Protein 7.5 Albumin 2.5 L Globulin 5.00 H Albumin/Globulin Ratio 0.50 Medications Medications Current Medications Ondansetron HCl (Zofran Inj) 4 mg Q4H PRN IV NAUSEA AND/OR VOMITING; Start 02/10 at 23:45 IV Flush (NS 10 ml) 10 ml PRN PRN IV FLUSH LINE; Start 02/10/17 at 23:45 Triamcinolone Acetonide (Kenalog 0.1% Oint) 1 applic BID TOP Last administered on 02/11/17 09:04; Admin Dose 1 APPLIC; Start 02/11/17 at 09:00 Vancomycin HCl PER PHARMACY DOSING NOTE XX ; Start 02/10/17 at 23:45 Vancomycin HCl/ Sodium Chloride (Vancocin/NS) 250 ml @ 83.333 mls/ hr Q96H IVPB ; Start 02/13/17 at 21:00 Furosemide (Lasix) 80 mg DAILY@06 PO Last administered on 02/11/17 06:38; Admin Dose 80 MG; Start 02/11/17 at 06:00 Lactulose (Enulose) 20 gm HS PO ; Start 02/11/17 at 21:00 Lubiprostone (Amitiza) 24 mcg BID PO Last administered on 02/11/17 09:05; Admin Dose 24 MCG; Start 02/11/17 at 09:00 Miscellaneous Information 1 ea NOTE XX ; Start 02/11/17 at 00:00 Glucose (Glutose) 15 gm Q15M PRN PO DECREASED GLUCOSE; Start 02/11/17 at 00:00 Glucose (Glutose) 22.5 gm Q15M PRN PO DECREASED GLUCOSE; Start 02/11/17 at 00:00 Dextrose (D50w Syringe) 25 ml Q15M PRN IV DECREASED GLUCOSE; Start 02/11/17 at 00:00 Dextrose (D50w Syringe) 50 ml Q15M PRN IV DECREASED GLUCOSE; Start 02/11/17 at 00:00 Glucagon (Glucagen) 1 mg Q15M PRN IM DECREASED GLUCOSE; Start 02/11/17 at 00:00 Glucose (Glutose) 15 gm Q15M PRN BUCCAL DECREASED GLUCOSE; Start 02/11/17 at 00: 00 Multivitamins Therapeutic (Theragran) 1 tab DAILY PO Last administered on 09:05; Admin Dose 1 TAB; Start 02/11/17 at 09:00 Nifedipine (Procardia Xl) 30 mg DAILY PO Last administered on 02/11/17 09:05; Admin Dose 30 MG; Start 02/11/17 at 09:00 Nitroglycerin (Nitroglycerin (Sl Tab) 0.4 Mg) 1 tab Q5M PRN SL CHEST PAIN; Start 02/11/17 at 00:00 Hydroxyzine HCl (Atarax) 10 mg Q6H PRN PO ITCHING; Start 02/11/17 at 00:00 Diagnostic Test (Pha) (Accu-Chek) 1 ea 02 XX Last administered on 02/11/17 02: 00; Admin Dose 1 EA; Start 02/11/17 at 02:00 Insulin Glargine (Lantus) 32 unit DAILY@20 SC ; Start 02/11/17 at 20:00 Lactulose (Enulose) 20 gm Q6 PO Last administered on 02/11/17 06:37; Admin Dose 20 GM; Start 02/11/17 at 00:00 Acetaminophen (Tylenol Tab) 500 mg Q6H PRN PO PAIN AND OR ELEVATED TEMP; Start 02/11/17 at 00:00 Atorvastatin Calcium (Lipitor) 20 mg DAILY@21 PO ; Start 8/2/17 at 21:00; Status Future Hold Docusate Sodium (Colace) 100 mg BID PRN PO CONSTIPATION; Start 02/11/17 at 00:00 Epoetin Sean (Epogen (Esrd)) 10,000 units MoWeFr@17 SC ; Start 02/11/17 at 17:00 CYNTHIA RODRIGUEZ MD Feb 11, 2017 09:54
[2017-02-11 13:41] LABS: ADD UMIC YES; UR ASCORBIC ACID 20 mg/dL (NEGATIVE); UR BACTERIA FEW /HPF (NONE SEEN); UR BILIRUBIN (Dip) 1+ mg/dL (NEGATIVE); UR BLOOD (Dip) 3+ mg/dL (NEGATIVE); UR CLARITY CLOUDY (CLEAR); UR COLOR AMBER (YELLOW); UR GLUCOSE (Dip) 1+ mg/dL (NEGATIVE); UR KETONES (Dip) TRACE mg/dL (NEGATIVE); UR LEUKOCYTE ESTERASE (Dip) 2+ Leu/ul (NEGATIVE); UR NITRITE (Dip) NEGATIVE (NEGATIVE); UR RBC > 182 /HPF (0-5); UR SPECIFIC GRAVITY (Dip) 1.025 (1.003-1.030); UR SQUAMOUS EPITHELIAL CELL FEW /HPF (FEW); UR TOTAL PROTEIN (Dip) 3+ mg/dl (NEGATIVE); UR UROBILINOGEN (Dip) NEGATIVE (NEGATIVE); UR WBC CLUMPS FEW /HPF (NONE SEEN)
[2017-02-11 14:00] VITALS: BP 119/62; RESP 18
--- NOTE | 2017-02-11 14:51 | PN ---
Date/Time of Note Date/Time of Note DATE: 02/11/17 TIME: 14:48 Assessment/Plan Lines/Catheters IV Catheter Type (from Nrs): PICC Line Dasilav in Place (from Nrs): No Assessment/Plan Assessment/Plan Scheduled for R arm AVF / possible AV graft for Thursday - BUE vein mapping was ordered Subjective [address] Da Silva asked me to followup regarding medical laboratory technicians AV access creation. He will need ongoing hemodialysis. He is R handed but has a left arm basilic vein PICC line in place. Feels weak but has lost ~80lbs of water weight since HD was started. Eating OK. Exam/Review of Systems Vital Signs Vitals Vital Signs Date Time Temp Pulse Resp B/P Pulse Ox O2 Delivery O2 Flow Rate FiO2 02/11/17 14:17 20 95 Nasal Cannula 2.0 02/11/17 14:00 98.6 88 119/62 Intake and Output 02/10/17 02/10/17 02/11/17 15:00 23:00 07:00 Intake Total 380 ml Balance 380 ml Exam Free Text/Dictation 2+ radial and brachial pulses bilaterally. No arm edema. L upper arm PICC line in place. Results Result Diagram: 02/11/1762002/11/1721 SAWYER ABRAMS MD Feb 11, 2017 14:51
--- NOTE | 2017-02-11 15:16 | PN ---
DATE: 02/11/2017 SUBJECTIVE DATA: The patient is lethargic, status post exercise this morning at rehab. The patient has been transferred to rehab unit. Denies any chest pain, mild shortness of breath. No palpitations. PHYSICAL EXAM: Patient is awake. VITAL SIGNS: Temperature 98.5, blood pressure 117/57, O2 sats 98 percent on 2 L nasal cannula. CHEST: Few wheezes heard anteriorly. HEART: S1, S2. No definite gallops. EXTREMITIES: 1+ edema. Taylor's sign is negative. LABORATORY: WBC count 4.7, hematocrit 29.1, platelet 116,000. Potassium 3.8, BUN 27, creatinine 5.7, glucose 133, 175 today, albumin is 2.5. IMPRESSION: 1. The patient has moderate weakness of the proximal muscles, upper and lower extremities secondary to disuse myopathy. 2. Acute on chronic renal failure on hemodialysis. 3. Cirrhosis secondary to hep C, portal hypertension. 4. Encephalopathy, improved. 5. Hypertension. 6. Diabetes mellitus type 2. 7. Congestive heart failure. 8. Anemia and thrombocytopenia. 9. Sleep apnea. 10. Morbid obesity. PLAN: The patient will be continued on rehab therapies. Closely monitor renal function. The patient is significantly hypoalbuminemic. Will encourage p.o. nutrition. I have discussed with the family regarding same. Follow nephrology recommendations per Dr. Collado. Dictated By: Ivan Brice MD /marlyn/ /Document#: [id number]
[2017-02-11] MEDS: EPOETIN 10000 UNITS/1 ML INJ (ESRD) SC SCH (17:10)
--- NOTE | 2017-02-11 17:58 | RADRPT ---
PROCEDURE: US Bilateral Upper Extremity Veins. CLINICAL INDICATION: Bilateral upper extremity swelling. Venous diameter for dialysis fistula plan ovidio. TECHNIQUE: Multiple longitudinal and transverse images of the bilateral upper extremity venous jonatan e was obtained with joya scale and color Doppler imaging. COMPARISON: None available FINDINGS: The subclavian veins, axillary, brachial, basilic, and cephalic veins are patent bilaterally. There is normal flow with augmentation and compressibility throughout. There is a right subclavian centra l line noted. Diameters are as follows: Right arm cephalic upper: 0.32 cm. Right arm cephalic mid: 0.24 cm. Right arm cephalic lower: Thrombosed with lack of flow and lack of compressibility. Right forearm cephalic upper: 0.18 cm. Right forearm cephalic mid: 0.27 cm. Right forearm cephalic lower: 0.21 cm. Right arm basilic upper: 0.52 cm. Right arm basilic mid: 0.37 cm. Right arm basilic lower: 0.40 cm. Right forearm basilic upper: 0.27 cm. Right forearm basilic mid: 0.19 cm. Right forearm basilic lower: 0.16 cm. Left arm cephalic upper: 0.23 cm. Left arm cephalic mid: 0.21 cm. Left arm cephalic lower: Thrombosed with lack of flow and lack of compressibility. Left forearm cephalic upper: 0.31 cm. Left forearm cephalic mid: 0.29 cm. Left forearm cephalic lower: 0.38 cm. Left arm basilic upper: 0.80 cm. Left arm basilic mid: 0.39 cm. Left arm basilic lower: 0.33 cm. Left forearm basilic upper: 0.23 cm. Left forearm basilic mid: 0.12 cm. Left forearm basilic lower: 0.23 cm. IMPRESSION: 1. Thrombosis of the right and left arm cephalic vein in the lower portion. 2. The diameter of the vessels as indicated above. RPTAT: QQ .Ulices Silva MD, Date Time Electronically viewed and signed by .Ulices Silva MD, on 02/11/2017 17:58 .R/
[2017-02-11 20:00] VITALS: BP 131/77; RESP 18
[2017-02-11] MEDS: INSULIN GLARGINE [LANtus] 3 ML PEN SC SCH (20:29)
[2017-02-11] MEDS ORDERED: ATORVASTATIN 20 MG TAB PO SCH (21:00)
[2017-02-12] VITALS (11 sets, daily range): BP systolic 102–143; BP diastolic 56–79; PULSE 80–90; RESP 18–20
[2017-02-12] MEDS: ACCUCHECK AT 2AM (Patients on SS coverage) XX SCH (02:39)
--- NOTE | 2017-02-12 03:26 | CONS ---
DATE OF ADMISSION: 02/10/2017 DATE OF CONSULTATION: 02/11/2017 REASON FOR CONSULTATION: This consultation was requested by Dr. Lenore Kemp in order to evaluate the cognitive and emotional functioning of this patient related to his present medical condition. HISTORY OF PRESENT ILLNESS: The patient is a 61-year-old male. He has multiple medical comorbidities including hepatitis C, diabetes mellitus type 2, hypertension, and increased shortness of breath. The patient was on oxygen when interviewed. The patient was cleared medically and transferred to the acute rehabilitation unit for acute interdisciplinary rehab care. The patient was very sleepy and tired. The patient was present with the patient's permission. The patient did state that he was feeling better than he had been, but that he it was having problems with his mood and his thinking. The patient's did say that his thinking has improved, but there is a history of encephalopathy that appears to be starting to improve. The patient is motivated and does want to return to his previous level of function. FAMILY/SOCIAL HISTORY: The patient lives with his in an apartment down the street. The patient does want to return there after discharge. The patient's was present during the consultation with the patient's permission. MEDICATIONS: The patient is currently not on any psychotropic medications. SUBSTANCE USE: The patient reports that he does not smoke. The patient reports he does not use alcohol or other drugs. MENTAL STATUS EXAMINATION: Appearance: The patient was seen in bed. He appears to be of average height and obese. The patient is on oxygen. The patient is right-handed. Behavior: The patient was cooperative during the consultation. The patient did attempt to answer all questions presented to him by the interviewer. The patient was very sleepy and extremely tired. Mood and affect: The patient's mood appears to be somewhat depressed. Affect does appear to be slightly anxious. Perception: The patient reports no hallucinations or delusions. The patient was alert to person, place, situation, and time. Memory and cognition: The patient's memory and cognition, although improving, is still impaired. He was able to name the hospital. He was able to say the month and the year. The patient could not spell "world" backwards. The patient could not say who the vice president [employer] is, who the governor of the state is, or who the mayor of the [facility] is. The patient was able to do one serial 7 subtractions and then made an error. Overall, the patient does appear to be improving, but his cognition still has some level of impairment. Intelligence: Intelligence appears to fall in the average range when he is functioning well. Insight: Fair. Judgment: Fair. Thought content: The patient is concerned about his present medical condition. The patient does want to return to his previous level of function. The patient is fearful that he will not be able to function. The patient just started on dialysis while he has been in the hospital and is concerned about this. DISCUSSION: The patient can likely benefit from some cognitive/behavioral psychotherapy ivy on the unit. The psychotherapy would focus on his underlying level of frustration and anxiety about his medical problems. DIAGNOSTIC IMPRESSION: 1. F06.31, mood disorder due to multiple medical problems with depressive features. 2. F06.8, cognitive disorder, not otherwise specified. Thank you very much, Dr. Lenore Kemp, for referring this individual. Please do not hesitate to call if you have any additional questions. Dictated By: Lino Willis, PHD /[email or web address] /Document#: [id number]
[2017-02-12] MEDS: LACTULOSE 30ML CUP PO SCH ×5 (06:32→20:41)
[2017-02-12] MEDS: FUROSEMIDE 40 MG TAB PO SCH (06:33)
[2017-02-12] MEDS: MULTIVITAMINS THERAPEUTIC TAB PO SCH (08:40)
[2017-02-12] MEDS: Insulin NOVOLOG SS MILD Algorithm (SS with meals and bedtime) SC SCH ×4 (08:40→20:42)
[2017-02-12] MEDS: TRIAMCINOLONE ACET 0.1% 15 GM OINT TOP SCH ×2 (08:40→21:00)
[2017-02-12] MEDS: LUBIPROSTONE 24 MCG CAP PO SCH ×2 (08:40→20:36)
[2017-02-12] MEDS: NIFEdipine (XL) 30 MG TAB PO SCH (08:41)
[2017-02-12] MEDS: ALBUTEROL/IPRATROPIUM (NEB) 3 ML AMP HHN SCH ×4 (09:09→21:10)
--- NOTE | 2017-02-12 11:34 | CONS ---
Date/Time of Note Date/Time of Note DATE: 02/12/17 TIME: 11:32 Consult Date/Type/Reason Admit Date/Time Feb 10, 2017 at 22:43 Initial Consult Date Subjective Tired this morning Objective Moderate assist Vital Signs Date Time Temp Pulse Resp B/P Pulse Ox O2 Delivery O2 Flow Rate FiO2 02/12/17 09:09 96 3.0 02/12/17 09:09 90 26 Nasal Cannula 02/12/17 07:32 98.0 122/67 Intake and Output 02/11/17 02/11/17 02/12/17 15:00 23:00 07:00 Intake Total 480 ml 350 ml Balance 480 ml 350 ml Results/Medications Result Diagram: 02/11/1762002/11/17 06 Results 24 hrs Laboratory Tests Test 02/11/17 12:00 02/11/17 12:06 02/11/17 17:06 02/11/17 20:13 Urine Color KAYLAN Urine Clarity CLOUDY A Urine pH 5.0 Urine Specific Mclean 1.025 Urine Ketones TRACE A Urine Nitrite NEGATIVE Urine Bilirubin 1+ H Urine Urobilinogen NEGATIVE Urine Leukocyte Esterase 2+ H Urine Microscopic RBC > 182 H Urine Microscopic WBC 106 H Urine Squamous Epithelial Cells FEW Urine Bacteria FEW A Urine Hemoglobin 3+ H Urine Glucose 1+ H Urine Total Protein 3+ H Bedside Glucose 175 199 204 Test 02/12/17 02:00 02/12/17 08:09 Bedside Glucose 204 143 Medications Current Medications Ondansetron HCl (Zofran Inj) 4 mg Q4H PRN IV NAUSEA AND/OR VOMITING; Start 02/10 at 23:45 IV Flush (NS 10 ml) 10 ml PRN PRN IV FLUSH LINE; Start 02/10/17 at 23:45 Triamcinolone Acetonide (Kenalog 0.1% Oint) 1 applic BID TOP Last administered on 02/12/17 08:40; Admin Dose 1 APPLIC; Start 02/11/17 at 09:00 Vancomycin HCl PER PHARMACY DOSING NOTE XX ; Start 02/10/17 at 23:45 Vancomycin HCl/ Sodium Chloride (Vancocin/NS) 250 ml @ 83.333 mls/ hr Q96H IVPB ; Start 02/13/17 at 21:00 Furosemide (Lasix) 80 mg DAILY@06 PO Last administered on 02/12/17 06:33; Admin Dose 80 MG; Start 02/11/17 at 06:00 Lactulose (Enulose) 20 gm HS PO ; Start 02/11/17 at 21:00 Lubiprostone (Amitiza) 24 mcg BID PO Last administered on 02/12/17 08:40; Admin Dose 24 MCG; Start 02/11/17 at 09:00 Miscellaneous Information 1 ea NOTE XX ; Start 02/11/17 at 00:00 Glucose (Glutose) 15 gm Q15M PRN PO DECREASED GLUCOSE; Start 02/11/17 at 00:00 Glucose (Glutose) 22.5 gm Q15M PRN PO DECREASED GLUCOSE; Start 02/11/17 at 00:00 Dextrose (D50w Syringe) 25 ml Q15M PRN IV DECREASED GLUCOSE; Start 02/11/17 at 00:00 Dextrose (D50w Syringe) 50 ml Q15M PRN IV DECREASED GLUCOSE; Start 02/11/17 at 00:00 Glucagon (Glucagen) 1 mg Q15M PRN IM DECREASED GLUCOSE; Start 02/11/17 at 00:00 Glucose (Glutose) 15 gm Q15M PRN BUCCAL DECREASED GLUCOSE; Start 02/11/17 at 00: 00 Multivitamins Therapeutic (Theragran) 1 tab DAILY PO Last administered on 08:40; Admin Dose 1 TAB; Start 02/11/17 at 09:00 Nifedipine (Procardia Xl) 30 mg DAILY PO Last administered on 02/12/17 08:41; Admin Dose 30 MG; Start 02/11/17 at 09:00 Nitroglycerin (Nitroglycerin (Sl Tab) 0.4 Mg) 1 tab Q5M PRN SL CHEST PAIN; Start 02/11/17 at 00:00 Hydroxyzine HCl (Atarax) 10 mg Q6H PRN PO ITCHING; Start 02/11/17 at 00:00 Diagnostic Test (Pha) (Accu-Chek) 1 ea 02 XX Last administered on 02/12/17 02: 39; Admin Dose 1 EA; Start 02/11/17 at 02:00 Insulin Glargine (Lantus) 32 unit DAILY@20 SC Last administered on 02/11/17 20: 29; Admin Dose 32 UNIT; Start 02/11/17 at 20:00 Lactulose (Enulose) 20 gm Q6 PO Last administered on 02/12/17 06:32; Admin Dose 20 GM; Start 02/11/17 at 00:00 Acetaminophen (Tylenol Tab) 500 mg Q6H PRN PO PAIN AND OR ELEVATED TEMP; Start 02/11/17 at 00:00 Atorvastatin Calcium (Lipitor) 20 mg DAILY@21 PO ; Start 02/11/17 at 21:00 Docusate Sodium (Colace) 100 mg BID PRN PO CONSTIPATION; Start 02/11/17 at 00:00 Epoetin Sean (Epogen (Esrd)) 10,000 units MoWeFr@17 SC Last administered on 02/11 17:10; Admin Dose 10,000 UNITS; Start 02/11/17 at 17:00 Assessment/Plan Chief Complaint/Hosp Course Rehab-Disuse Myopathy; encephalopathy Interdisciplinary treatment plan as tolerated Cirrhosis secondary to Hepatitis C Acute on Chronic Renal Failure on Hemodialysis Hypertension Diabetes Mellitus type 2 CHF Anemia Sleep apnea Morbid Obesity Problems: CYNTHIA RODRIGUEZ MD Feb 12, 2017 11:33
[2017-02-12] MEDS: ACETAMINOPHEN 500 MG TAB PO PRN (13:23)
--- NOTE | 2017-02-12 14:30 | RADRPT ---
Vent Rate: 95 bpm RR Interval: 0 msec NC Interval: 166 msec QRS Duration: 92 msec QT Interval: 392 msec QTC Interval: 492 msec P-R-T Diablo: 58 - -4 - 32 degrees Normal sinus rhythm Prolonged QT Abnormal ECG Electronically Signed By: Sy Lira [id number]
--- NOTE | 2017-02-12 16:29 | PN ---
DATE: 02/12/2017 SUBJECTIVE: The patient feels very tired. He denies any chest pain or shortness of breath, p.o. intake is improving. PHYSICAL EXAMINATION: Vital signs temperature 98.0, blood pressure 122/67, O2 sat 97 percent on 2 L. NECK: JVD is not increased. CHEST: Chest clinically clear. HEART: Heart S1, S2. No definite gallops. ABDOMEN: Abdomen obese, nontender. EXTREMITIES: Decreased edema. Homans sign is negative. The patient due for dialysis today. IMPRESSION: 1. Acute on chronic renal failure on hemodialysis. 2. 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 3. Cirrhosis with portal hypertension. Secondary to hepatitis C. 4. Hepatic encephalopathy, resolved. 5. Hypertension. 6. Diabetes mellitus type 2. 7. Congestive heart failure. Resolved. 8. Anemia and thrombocytopenia. Stable. 9. Sleep apnea. 10. Morbid obesity. PLAN: Plan continue hemodialysis per Dr. Collado. Follow recommendations per Dr. Palencia regarding rehab. Dictated By: Ivan Brice MD /[email or web address] /Document#: [id number]
--- NOTE | 2017-02-12 16:44 | RADRPT ---
PROCEDURE: Chest 1 views. CLINICAL INDICATION: Abnormal breath sounds, preop. TECHNIQUE: AP views of the chest was obtained. COMPARISON: February 09, 2017 FINDINGS: The heart is large. Right-sided dialysis catheter has its tip in the expected location of the mid ri ght atrium. Elevated right hemidiaphragm is identified. Central pulmonary vascular congestion and mild interstitial prominence is seen in both lungs. Scattered atelectasis is noted in the bilateral lower lobes. No consolidations are identified. No pneumothorax is seen. Osseous structures are i ntact. IMPRESSION: Cardiomegaly . Elevated right hemidiaphragm. Central pulmonary vascular congestion and interstitial prominence is seen in both lungs. Atelectasis in the bilateral lower lobes. RPTAT: AA .Jorge Mcdaniels MD, Date Time Electronically viewed and signed by .Jorge Mcdaniels MD, on 02/12/2017 16:44 .P/
--- NOTE | 2017-02-12 18:19 | CONS ---
Date/Time of Note Date/Time of Note DATE: 02/12/17 TIME: 18:16 Assessment/Plan Assessment/Plan Chief Complaint/Hosp Course 1. ESRD , now on maintenance hemodialysis TTS . He is having a hemodialysis treatment now . 2. Cirrhosis of the liver 3. malnourished 4. CHF 5. DM 6. Sleep apnea 7. History of hepatitis C, treated 8. History of hepatic encephalopathy Problems: Consultation Date/Type/Reason Admit Date/Time Feb 10, 2017 at 22:43 Initial Consult Date 24 HR Interval Summary Free Text/Dictation He is now having a hemodialysis treatment . He is awake and responsive . Constitutional: improved, no complaints Exam/Review of Systems Vital Signs Vitals Vital Signs Date Time Temp Pulse Resp B/P Pulse Ox O2 Delivery O2 Flow Rate FiO2 02/12/17 17:45 85 02/12/17 17:29 3.0 02/12/17 16:15 18 02/12/17 14:00 98.0 112/64 96 02/12/17 13:38 Nasal Cannula Intake and Output 02/11/17 02/11/17 02/12/17 15:00 23:00 07:00 Intake Total 480 ml 350 ml Balance 480 ml 350 ml Exam Constitutional: alert, frail, obese, oriented Head: normocephalic ENMT: nl external ears & nose, nl lips & teeth, nl nasal mucosa & septum Respiratory: clear to auscultation, normal air movement Cardiovascular: edema, regular rate and rhythm Gastrointestinal: non-tender, soft Extremities: edema Results Result Diagram: 02/11/17 0621 02/11/17 0621 Results 24 hrs Laboratory Tests Test 02/11/17 20:13 02/12/17 02:00 02/12/17 08:09 02/12/17 11:40 Bedside Glucose 204 204 143 144 Test 02/12/17 17:13 Bedside Glucose 178 Medications Medications Current Medications Ondansetron HCl (Zofran Inj) 4 mg Q4H PRN IV NAUSEA AND/OR VOMITING; Start 02/10 at 23:45 IV Flush (NS 10 ml) 10 ml PRN PRN IV FLUSH LINE; Start 02/10/17 at 23:45 Triamcinolone Acetonide (Kenalog 0.1% Oint) 1 applic BID TOP Last administered on 02/12/17t 08:40; Admin Dose 1 APPLIC; Start 02/11/17 at 09:00 Vancomycin HCl PER PHARMACY DOSING NOTE XX ; Start 02/10/17 at 23:45 Vancomycin HCl/ Sodium Chloride (Vancocin/NS) 250 ml @ 83.333 mls/ hr Q96H IVPB ; Start 02/13/17 at 21:00 Furosemide (Lasix) 80 mg DAILY@06 PO Last administered on 02/12/17 06:33; Admin Dose 80 MG; Start 02/11/17 at 06:00 Lactulose (Enulose) 20 gm HS PO ; Start 02/11/17 at 21:00 Lubiprostone (Amitiza) 24 mcg BID PO Last administered on 02/12/17 08:40; Admin Dose 24 MCG; Start 02/11/17 at 09:00 Miscellaneous Information 1 ea NOTE XX ; Start 02/11/17 at 00:00 Glucose (Glutose) 15 gm Q15M PRN PO DECREASED GLUCOSE; Start 02/11/17 at 00:00 Glucose (Glutose) 22.5 gm Q15M PRN PO DECREASED GLUCOSE; Start 02/11/17 at 00:00 Dextrose (D50w Syringe) 25 ml Q15M PRN IV DECREASED GLUCOSE; Start 02/11/17 at 00:00 Dextrose (D50w Syringe) 50 ml Q15M PRN IV DECREASED GLUCOSE; Start 02/11/17 at 00:00 Glucagon (Glucagen) 1 mg Q15M PRN IM DECREASED GLUCOSE; Start 02/11/17 at 00:00 Glucose (Glutose) 15 gm Q15M PRN BUCCAL DECREASED GLUCOSE; Start 02/11/17 at 00: 00 Multivitamins Therapeutic (Theragran) 1 tab DAILY PO Last administered on 08:40; Admin Dose 1 TAB; Start 02/11/17 at 09:00 Nifedipine (Procardia Xl) 30 mg DAILY PO Last administered on 02/12/17 08:41; Admin Dose 30 MG; Start 02/11/17 at 09:00 Nitroglycerin (Nitroglycerin (Sl Tab) 0.4 Mg) 1 tab Q5M PRN SL CHEST PAIN; Start 02/11/17 at 00:00 Hydroxyzine HCl (Atarax) 10 mg Q6H PRN PO ITCHING; Start 02/11/17 at 00:00 Diagnostic Test (Pha) (Accu-Chek) 1 ea 02 XX Last administered on 02/12/17 02: 39; Admin Dose 1 EA; Start 02/11/17 at 02:00 Insulin Glargine (Lantus) 32 unit DAILY@20 SC Last administered on 02/11/17 20: 29; Admin Dose 32 UNIT; Start 02/11/17 at 20:00 Lactulose (Enulose) 20 gm Q6 PO Last administered on 02/12/17 12:31; Admin Dose 20 GM; Start 02/11/17 at 00:00 Acetaminophen (Tylenol Tab) 500 mg Q6H PRN PO PAIN AND OR ELEVATED TEMP Last administered on 02/12/17 13:23; Admin Dose 500 MG; Start 02/11/17 at 00:00 Atorvastatin Calcium (Lipitor) 20 mg DAILY@21 PO ; Start 02/11/17 at 21:00 Docusate Sodium (Colace) 100 mg BID PRN PO CONSTIPATION; Start 02/11/17 at 00:00 Epoetin Sean (Epogen (Esrd)) 10,000 units MoWeFr@17 SC Last administered on 02/11 17:10; Admin Dose 10,000 UNITS; Start 02/11/17 at 17:00 ANA MELENDEZ MD Feb 12, 2017 18:19
[2017-02-12] MEDS: INSULIN GLARGINE [LANtus] 3 ML PEN SC SCH (20:37)
[2017-02-13] VITALS (10 sets, daily range): BP systolic 109–170; BP diastolic 58–77; PULSE 80–86; RESP 18–21
[2017-02-13] MEDS: ACCUCHECK AT 2AM (Patients on SS coverage) XX SCH (02:00)
[2017-02-13] MEDS: FUROSEMIDE 40 MG TAB PO SCH (06:00)
[2017-02-13] MEDS: LACTULOSE 30ML CUP PO SCH ×5 (06:00→20:12)
[2017-02-13 07:04] LABS: BASOPHILS % 0.6 % (0.0-2.0); EOSINOPHILS # 0.3 10^3/ul (0.0-0.5); EOSINOPHILS % 4.6 % (0.0-7.0); HEMATOCRIT 29.7 % (42.0-52.0); LYMPHOCYTES # 1.1 10^3/ul (0.8-2.9); LYMPHOCYTES % 21.1 % (15.0-51.0); MEAN CORPUSCULAR HGB CONC 30.3 g/dl (32.0-37.0); MEAN CORPUSCULAR VOLUME 85.8 fl (82.0-101.0); MEAN PLATELET VOLUME 9.6 fl (7.4-10.4); MONOCYTE # 0.5 10^3/ul (0.3-0.9); MONOCYTES % 8.5 % (0.0-11.0); NEUTROPHIL # 3.5 10^3/ul (1.6-7.5); NEUTROPHILS % 64.6 % (39.0-77.0); PLATELET COUNT 118 10^3/UL (140-415); RED BLOOD COUNT 3.46 10^6/ul (4.70-6.10); RED CELL DISTRIBUTION WIDTH 19.9 % (11.5-14.5); WHITE BLOOD COUNT 5.4 10^3/ul (4.8-10.8)
[2017-02-13] MEDS: Insulin NOVOLOG SS MILD Algorithm (SS with meals and bedtime) SC SCH ×4 (07:05→20:13)
[2017-02-13 07:35] LABS: INR 1.17; PT RATIO 1.2
[2017-02-13 07:36] LABS: PARTIAL THROMBOPLASTIN TIME 38.8 Sec (25.0-35.0)
[2017-02-13 07:37] LABS: ALBUMIN 2.7 g/dl (3.3-4.9); ALBUMIN/GLOBULIN RATIO 0.49; BILIRUBIN,INDIRECT 0.3 mg/dl (0-1.1); BILIRUBIN,TOTAL 0.3 mg/dl (0.2-1.3); CALCIUM 7.6 mg/dl (8.4-10.2); CREATININE 5.71 mg/dl (0.61-1.24); POTASSIUM 3.6 mmol/L (3.5-5.1); TOTAL PROTEIN 8.2 g/dl (6.1-8.1)
[2017-02-13] MEDS: ALBUTEROL/IPRATROPIUM (NEB) 3 ML AMP HHN SCH ×5 (08:34→21:03)
[2017-02-13] MEDS: LUBIPROSTONE 24 MCG CAP PO SCH (08:43)
[2017-02-13] MEDS: TRIAMCINOLONE ACET 0.1% 15 GM OINT TOP SCH ×2 (08:44→20:13)
[2017-02-13] MEDS: NIFEdipine (XL) 30 MG TAB PO SCH ×2 (08:44→20:20)
[2017-02-13] MEDS: MULTIVITAMINS THERAPEUTIC TAB PO SCH (08:44)
--- NOTE | 2017-02-13 08:47 | HPN ---
Date/Time of Note Date/Time of Note DATE: 02/13/17 TIME: 08:47 Interval H&P Admission Note Pt. seen H&P reviewed: No system changes SAWYER ABRAMS MD Feb 13, 2017 08:47
--- NOTE | 2017-02-13 10:21 | CONS ---
Date/Time of Note Date/Time of Note DATE: 02/13/17 TIME: 10:17 Assessment/Plan Assessment/Plan Chief Complaint/Hosp Course 1. ESRD , now on maintenance hemodialysis TTS . He is due for hemodialysis for tomorrow . 2. Cirrhosis of the liver 3. malnourished 4. CHF 5. DM 6. Sleep apnea 7. History of hepatitis C, treated 8. History of hepatic encephalopathy 9. Morbid obesity Problems: Consultation Date/Type/Reason Admit Date/Time Feb 10, 2017 at 22:43 24 HR Interval Summary Free Text/Dictation He is now on Rehab unit . He is sleeping .He was vomiting last night after hemodialysis treatment . Constitutional: no complaints Exam/Review of Systems Vital Signs Vitals Vital Signs Date Time Temp Pulse Resp B/P Pulse Ox O2 Delivery O2 Flow Rate FiO2 02/13/17 08:33 3.0 02/13/17 08:00 Nasal Cannula 02/13/17 02:24 98.0 89 20 109/58 95 Intake and Output 02/12/17 02/12/17 02/13/17 15:00 23:00 07:00 Intake Total 750 ml 1750 ml Output Total 3600 ml Balance 750 ml -1850 ml Exam Constitutional: alert, obese, oriented Respiratory: clear to auscultation, normal air movement Cardiovascular: regular rate and rhythm Gastrointestinal: non-tender, soft 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: lethargic Results Result Diagram: 02/13/17 0650 02/13/17 0650 Results 24 hrs Laboratory Tests Test 02/12/17 11:40 02/12/17 17:13 02/12/17 20:32 02/13/17 02:24 Bedside Glucose 144 178 162 176 Test 02/13/17 06:50 02/13/17 07:55 02/13/17 09:13 White Blood Count 5.4 Red Blood Count 3.46 L Hemoglobin 9.0 L Hematocrit 29.7 L Mean Corpuscular Volume 85.8 Mean Corpuscular Hemoglobin 26.0 L Mean Corpuscular Hemoglobin Concent 30.3 L Red Cell Distribution Width 19.9 H Platelet Count 118 L Mean Platelet Volume 9.6 Neutrophils % 64.6 Lymphocytes % 21.1 Monocytes % 8.5 Eosinophils % 4.6 Basophils % 0.6 Nucleated Red Blood Cells % 0.0 Neutrophils # 3.5 Lymphocytes # 1.1 Monocytes # 0.5 Eosinophils # 0.3 Basophils # 0.0 Nucleated Red Blood Cells # 0.0 Prothrombin Time 15.0 H Prothrombin Time Ratio 1.2 INR International Normalized Ratio 1.17 Activated Partial Thromboplast Time 38.8 H Sodium Level 139 Potassium Level 3.6 Chloride Level 96 L Carbon Dioxide Level 31 Anion Gap 16 Blood Urea Nitrogen 27 H Creatinine 5.71 H Glucose Level 103 Calcium Level 7.6 L Total Bilirubin 0.3 Direct Bilirubin 0.00 Indirect Bilirubin 0.3 Aspartate Amino Transf (AST/SGOT) 31 Alanine Aminotransferase (ALT/SGPT) 38 Alkaline Phosphatase 122 H Total Protein 8.2 H Albumin 2.7 L Globulin 5.50 H Albumin/Globulin Ratio 0.49 Bedside Glucose 82 93 Medications Medications Current Medications Ondansetron HCl (Zofran Inj) 4 mg Q4H PRN IV NAUSEA AND/OR VOMITING; Start 02/10 at 23:45 IV Flush (NS 10 ml) 10 ml PRN PRN IV FLUSH LINE; Start 02/10/17 at 23:45 Triamcinolone Acetonide (Kenalog 0.1% Oint) 1 applic BID TOP Last administered on 02/12/17 08:40; Admin Dose 1 APPLIC; Start 02/11/17 at 09:00 Vancomycin HCl PER PHARMACY DOSING NOTE XX ; Start 02/10/17 at 23:45 Vancomycin HCl/ Sodium Chloride (Vancocin/NS) 250 ml @ 83.333 mls/ hr Q96H IVPB ; Start 02/13/17 at 21:00 Furosemide (Lasix) 80 mg DAILY@06 PO Last administered on 02/12/17 06:33; Admin Dose 80 MG; Start 02/11/17 at 06:00 Lactulose (Enulose) 20 gm HS PO ; Start 02/11/17 at 21:00 Lubiprostone (Amitiza) 24 mcg BID PO Last administered on 02/12/17 20:36; Admin Dose 24 MCG; Start 02/11/17 at 09:00 Miscellaneous Information 1 ea NOTE XX ; Start 02/11/17 at 00:00 Glucose (Glutose) 15 gm Q15M PRN PO DECREASED GLUCOSE; Start 02/11/17 at 00:00 Glucose (Glutose) 22.5 gm Q15M PRN PO DECREASED GLUCOSE; Start 02/11/17 at 00:00 Dextrose (D50w Syringe) 25 ml Q15M PRN IV DECREASED GLUCOSE; Start 02/11/17 at 00:00 Dextrose (D50w Syringe) 50 ml Q15M PRN IV DECREASED GLUCOSE; Start 02/11/17 at 00:00 Glucagon (Glucagen) 1 mg Q15M PRN IM DECREASED GLUCOSE; Start 02/11/17 at 00:00 Glucose (Glutose) 15 gm Q15M PRN BUCCAL DECREASED GLUCOSE; Start 02/11/17 at 00: 00 Multivitamins Therapeutic (Theragran) 1 tab DAILY PO Last administered on 08:40; Admin Dose 1 TAB; Start 02/11/17 at 09:00 Nifedipine (Procardia Xl) 30 mg DAILY PO Last administered on 02/12/17 08:41; Admin Dose 30 MG; Start 02/11/17 at 09:00 Nitroglycerin (Nitroglycerin (Sl Tab) 0.4 Mg) 1 tab Q5M PRN SL CHEST PAIN; Start 02/11/17 at 00:00 Hydroxyzine HCl (Atarax) 10 mg Q6H PRN PO ITCHING; Start 02/11/17 at 00:00 Diagnostic Test (Pha) (Accu-Chek) 1 ea 02 XX Last administered on 02/13/17 02: 00; Admin Dose 1 EA; Start 02/11/17 at 02:00 Insulin Glargine (Lantus) 32 unit DAILY@20 SC Last administered on 02/12/17 20: 37; Admin Dose 32 UNIT; Start 02/11/17 at 20:00 Lactulose (Enulose) 20 gm Q6 PO Last administered on 02/12/17 12:31; Admin Dose 20 GM; Start 02/11/17 at 00:00 Acetaminophen (Tylenol Tab) 500 mg Q6H PRN PO PAIN AND OR ELEVATED TEMP Last administered on 02/12/17 13:23; Admin Dose 500 MG; Start 02/11/17 at 00:00 Atorvastatin Calcium (Lipitor) 20 mg DAILY@21 PO ; Start 02/11/17 at 21:00 Docusate Sodium (Colace) 100 mg BID PRN PO CONSTIPATION; Start 02/11/17 at 00:00 Epoetin Sean (Epogen (Esrd)) 10,000 units MoWeFr@17 SC Last administered on 8/2 /17at 17:10; Admin Dose 10,000 UNITS; Start 02/11/17 at 17:00 ANA MELENDEZ MD Feb 13, 2017 10:21
--- NOTE | 2017-02-13 10:21 | PN ---
DATE: 02/13/2017 SUBJECTIVE DATA: The patient is awake, did have a large bowel movement early in the morning and also vomited x1. Presently not complaining of any abdominal pain. Due for a fistula placement today. OBJECTIVE DATA: VITAL SIGNS: Temperature 98, blood pressure 109/58, respiratory 20 per minute, O2 sat 95 percent on 3 L nasal cannula. CHEST: Clinically clear. HEART: S1, S2. No gallops. ABDOMEN: Soft, nontender. EXTREMITIES: Trace edema. Homans negative. LABORATORY AND DIAGNOSTIC DATA: WBC count 5.4, hematocrit 29.7, platelet count 118,000 (improved). Potassium 3.6, BUN 27, creatinine 5.71. Urine cultures growing 100,000 of enterococcus, gram-negative rods less than 10,000. IMPRESSION: 1. Eybyj-cz-kbgopsy renal failure, on hemodialysis. 2. 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 3. Cirrhosis, portal hypertension, secondary to hepatitis C with no evidence of a viral load. 4. Hepatic encephalopathy, resolved. 5. Hypertension. 6. Diabetes mellitus type 2. 7. Congestive heart failure, resolved. 8. Anemia and thrombocytopenia. 9. Obstructive sleep apnea. 10. Morbid obesity. 11. Urinary tract infection, enterococcus. PLAN: We will discuss with Dr. Yadav. Consider starting the patient after the sensitivities. The patient already on vancomycin. Dictated By: Ivan Brice MD /[email or web address] /Document#: [id number]
[2017-02-13] MEDS ORDERED: HEPARIN 1000 UNITS/ML 10 ML INJ ONE (11:17)
[2017-02-13] MEDS ORDERED: LIDOCAINE 1% (MPF) 30 ML INJ ONE (11:17)
[2017-02-13] MEDS ORDERED: LIDOCAINE 1% (MPF) 30 ML INJ INJ ONE (12:00)
[2017-02-13] MEDS ORDERED: HEPARIN 1000 UNITS/ML 10 ML INJ IRR ONE (12:00)
[2017-02-13] MEDS ORDERED: LIDOCAINE 2% (SDV) 5 ML INJ ONE (12:38)
[2017-02-13] MEDS ORDERED: PROPOFOL 20 ML ONE (12:38)
[2017-02-13] MEDS ORDERED: MIDAZOLAM 1 MG/ML 2 ML INJ ONE (12:38)
--- NOTE | 2017-02-13 12:48 | CONS ---
Date/Time of Note Date/Time of Note DATE: 02/13/17 TIME: 12:48 Consult Date/Type/Reason Admit Date/Time Feb 10, 2017 at 22:43 Subjective Patient having shunt placement today Objective Vital Signs Date Time Temp Pulse Resp B/P Pulse Ox O2 Delivery O2 Flow Rate FiO2 02/13/17 08:33 3.0 02/13/17 08:00 Nasal Cannula 02/13/17 02:24 98.0 89 20 109/58 95 Intake and Output 02/12/17 02/12/17 02/13/17 15:00 23:00 07:00 Intake Total 750 ml 1750 ml Output Total 3600 ml Balance 750 ml -1850 ml Results/Medications Result Diagram: 02/13/17 0650 02/13/17 0650 Results 24 hrs Laboratory Tests Test 02/12/17 17:13 02/12/17 20:32 02/13/17 02:24 02/13/17 06:50 Bedside Glucose 178 162 176 White Blood Count 5.4 Red Blood Count 3.46 L Hemoglobin 9.0 L Hematocrit 29.7 L Mean Corpuscular Volume 85.8 Mean Corpuscular Hemoglobin 26.0 L Mean Corpuscular Hemoglobin Concent 30.3 L Red Cell Distribution Width 19.9 H Platelet Count 118 L Mean Platelet Volume 9.6 Neutrophils % 64.6 Lymphocytes % 21.1 Monocytes % 8.5 Eosinophils % 4.6 Basophils % 0.6 Nucleated Red Blood Cells % 0.0 Neutrophils # 3.5 Lymphocytes # 1.1 Monocytes # 0.5 Eosinophils # 0.3 Basophils # 0.0 Nucleated Red Blood Cells # 0.0 Prothrombin Time 15.0 H Prothrombin Time Ratio 1.2 INR International Normalized Ratio 1.17 Activated Partial Thromboplast Time 38.8 H Sodium Level 139 Potassium Level 3.6 Chloride Level 96 L Carbon Dioxide Level 31 Anion Gap 16 Blood Urea Nitrogen 27 H Creatinine 5.71 H Glucose Level 103 Calcium Level 7.6 L Total Bilirubin 0.3 Direct Bilirubin 0.00 Indirect Bilirubin 0.3 Aspartate Amino Transf (AST/SGOT) 31 Alanine Aminotransferase (ALT/SGPT) 38 Alkaline Phosphatase 122 H Total Protein 8.2 H Albumin 2.7 L Globulin 5.50 H Albumin/Globulin Ratio 0.49 Test 02/13/17 07:55 02/13/17 09:13 02/13/17 11:59 Bedside Glucose 82 93 86 Medications Current Medications Ondansetron HCl (Zofran Inj) 4 mg Q4H PRN IV NAUSEA AND/OR VOMITING; Start 02/10 at 23:45 IV Flush (NS 10 ml) 10 ml PRN PRN IV FLUSH LINE; Start 02/10/17 at 23:45 Triamcinolone Acetonide (Kenalog 0.1% Oint) 1 applic BID TOP Last administered on 02/12/17 08:40; Admin Dose 1 APPLIC; Start 02/11/17 at 09:00 Vancomycin HCl PER PHARMACY DOSING NOTE XX ; Start 02/10/17 at 23:45 Vancomycin HCl/ Sodium Chloride (Vancocin/NS) 250 ml @ 83.333 mls/ hr Q96H IVPB ; Start 02/13/17 at 21:00 Furosemide (Lasix) 80 mg DAILY@06 PO Last administered on 02/12/17 06:33; Admin Dose 80 MG; Start 02/11/17 at 06:00 Lactulose (Enulose) 20 gm HS PO ; Start 02/11/17 at 21:00 Miscellaneous Information 1 ea NOTE XX ; Start 02/11/17 at 00:00 Glucose (Glutose) 15 gm Q15M PRN PO DECREASED GLUCOSE; Start 02/11/17 at 00:00 Glucose (Glutose) 22.5 gm Q15M PRN PO DECREASED GLUCOSE; Start 02/11/17 at 00:00 Dextrose (D50w Syringe) 25 ml Q15M PRN IV DECREASED GLUCOSE; Start 02/11/17 at 00:00 Dextrose (D50w Syringe) 50 ml Q15M PRN IV DECREASED GLUCOSE; Start 02/11/17 at 00:00 Glucagon (Glucagen) 1 mg Q15M PRN IM DECREASED GLUCOSE; Start 02/11/17 at 00:00 Glucose (Glutose) 15 gm Q15M PRN BUCCAL DECREASED GLUCOSE; Start 02/11/17 at 00: 00 Multivitamins Therapeutic (Theragran) 1 tab DAILY PO Last administered on 08:40; Admin Dose 1 TAB; Start 02/11/17 at 09:00 Nifedipine (Procardia Xl) 30 mg DAILY PO Last administered on 02/12/17 08:41; Admin Dose 30 MG; Start 02/11/17 at 09:00 Nitroglycerin (Nitroglycerin (Sl Tab) 0.4 Mg) 1 tab Q5M PRN SL CHEST PAIN; Start 02/11/17 at 00:00 Hydroxyzine HCl (Atarax) 10 mg Q6H PRN PO ITCHING; Start 02/11/17 at 00:00 Diagnostic Test (Pha) (Accu-Chek) 1 ea 02 XX Last administered on 02/13/17 02: 00; Admin Dose 1 EA; Start 02/11/17 at 02:00 Insulin Glargine (Lantus) 32 unit DAILY@20 SC Last administered on 02/12/17 20: 37; Admin Dose 32 UNIT; Start 02/11/17 at 20:00 Lactulose (Enulose) 20 gm Q6 PO Last administered on 02/12/17 12:31; Admin Dose 20 GM; Start 02/11/17 at 00:00 Acetaminophen (Tylenol Tab) 500 mg Q6H PRN PO PAIN AND OR ELEVATED TEMP Last administered on 02/12/17 13:23; Admin Dose 500 MG; Start 02/11/17 at 00:00 Atorvastatin Calcium (Lipitor) 20 mg DAILY@21 PO ; Start 02/11/17 at 21:00 Docusate Sodium (Colace) 100 mg BID PRN PO CONSTIPATION; Start 02/11/17 at 00:00 Epoetin Sean (Epogen (Esrd)) 10,000 units MoWeFr@17 SC Last administered on 02/11 17:10; Admin Dose 10,000 UNITS; Start 02/11/17 at 17:00 Assessment/Plan Chief Complaint/Hosp Course Rehab-Disuse Myopathy; encephalopathy Interdisciplinary treatment plan as tolerated Cirrhosis secondary to Hepatitis C Acute on Chronic Renal Failure on Hemodialysis Hypertension Diabetes Mellitus type 2 CHF Anemia Sleep apnea Morbid Obesity Problems: Additional Assessment/Plan Rehab-Disuse Myopathy; encephalopathy Activities as tolerated Cirrhosis secondary to Hepatitis C Acute on Chronic Renal Failure on Hemodialysis Hypertension Diabetes Mellitus type 2 CHF Anemia Sleep apnea Morbid Obesity CYNTHIA RODRIGUEZ MD Feb 13, 2017 12:48
[2017-02-13] MEDS ORDERED: FENTAnyl 50 MCG/ML VIAL ONE (12:49)
[2017-02-13] MEDS ORDERED: CEFAZOLIN 1 GM INJ ONE (12:49)
[2017-02-13] MEDS ORDERED: GELATIN SIZE 100 SPONGE ONE (13:28)
[2017-02-13] MEDS ORDERED: THROMBIN 5000 UNIT VIAL ONE (13:28)
[2017-02-13] MEDS ORDERED: HYDROmorphONE (0.2 MG/ML) 10ML SYG IV PRN (13:30)
[2017-02-13] MEDS ORDERED: ONDANSETRON 4 MG INJ IV PRN (13:30)
[2017-02-13] MEDS ORDERED: DIPHENHYDRAMINE 50 MG INJ IV PRN (13:30)
[2017-02-13] MEDS ORDERED: FENTAnyl 50 MCG/ML VIAL IV PRN (13:30)
[2017-02-13] MEDS ORDERED: THROMBIN 5000 UNIT VIAL TOP ONE (13:30)
[2017-02-13] MEDS ORDERED: PROCHLORPERAZINE 10 MG INJ IV PRN (13:30)
[2017-02-13] MEDS ORDERED: GELATIN SIZE 100 SPONGE TOP ONE (13:31)
--- NOTE | 2017-02-13 14:07 | OPR ---
Date/Time of Note Date/Time of Note DATE: 02/13/17 TIME: 14:06 Operative Report Preoperative Diagnosis ESRD Postoperative Diagnosis same Operation/Procedure Performed Right arm AV graft creation Surgeon: SAWYER ABRAMS MD Anesthesia: MAC Estimated Blood Loss: minimal Grafts/Implants 5 mm collagen Artegraft Complications: None SAWYER ABRAMS MD Feb 13, 2017 14:07
[2017-02-13] MEDS: ZYVOX 600 MG TAB PO SCH (17:47)
[2017-02-13] MEDS: EPOETIN 10000 UNITS/1 ML INJ (ESRD) SC SCH (17:49)
[2017-02-13] MEDS: ACETAMINOPHEN 500 MG TAB PO PRN (19:54)
[2017-02-13] MEDS: INSULIN GLARGINE [LANtus] 3 ML PEN SC SCH (20:09)
[2017-02-13] MEDS ORDERED: VANCOMYCIN 1.25 GM in SOD CHLORIDE 0.9% 250 ML IVPB SCH (21:00)
[2017-02-14] VITALS (16 sets, daily range): BP systolic 119–157; BP diastolic 59–89; PULSE 79–91; RESP 16–20
[2017-02-14] MEDS: ZYVOX 600 MG TAB PO SCH ×3 (01:05→20:39)
[2017-02-14] MEDS: ACCUCHECK AT 2AM (Patients on SS coverage) XX SCH (01:18)
[2017-02-14] MEDS: LACTULOSE 30ML CUP PO SCH ×5 (06:26→20:39)
[2017-02-14] MEDS: FUROSEMIDE 40 MG TAB PO SCH (06:27)
[2017-02-14] MEDS: Insulin NOVOLOG SS MILD Algorithm (SS with meals and bedtime) SC SCH ×4 (07:05→21:00)
[2017-02-14] MEDS: ALBUTEROL/IPRATROPIUM (NEB) 3 ML AMP HHN SCH ×4 (08:54→21:42)
[2017-02-14] MEDS: NIFEdipine (XL) 30 MG TAB PO SCH (08:58)
[2017-02-14] MEDS: TRIAMCINOLONE ACET 0.1% 15 GM OINT TOP SCH ×2 (08:59→21:33)
[2017-02-14] MEDS: MULTIVITAMINS THERAPEUTIC TAB PO SCH (08:59)
--- NOTE | 2017-02-14 12:15 | CONS ---
Date/Time of Note Date/Time of Note DATE: 02/14/17 TIME: 12:11 Assessment/Plan Assessment/Plan Chief Complaint/Hosp Course 1. ESRD , now on maintenance hemodialysis TTS . He is due for hemodialysis today and will have dialysis this afternoon. 2. Cirrhosis of the liver 3. malnourished 4. CHF 5. DM 6. Sleep apnea 7. History of hepatitis C, treated 8. History of hepatic encephalopathy, his ammonia level was slightly elevated at 34 yesterday. I told him that he needs to take the lactulose and keep himself from getting constipated. 9. Morbid obesity 10. He still has some intermittent nausea but is not vomiting. 11. Urinary tract infection. He is now growing VRE from his urine. His antibiotics have been adjusted and is now on Linazelide . Problems: Consultation Date/Type/Reason Admit Date/Time Feb 10, 2017 at 22:43 24 HR Interval Summary Free Text/Dictation He is a little more alert today. He had surgery yesterday to place a right upper arm AV fistula for hemodialysis. He is due for hemodialysis treatment today. Exam/Review of Systems Vital Signs Vitals Vital Signs Date Time Temp Pulse Resp B/P Pulse Ox O2 Delivery O2 Flow Rate FiO2 02/14/17 08:54 86 20 92 Nasal Cannula 2.0 02/14/17 08:00 136/66 02/14/17 02:00 97.7 Intake and Output 02/13/17 02/13/17 02/14/17 15:00 23:00 07:00 Intake Total 330 ml 700 ml 120 ml Output Total 10 ml Balance 320 ml 700 ml 120 ml Exam Constitutional: alert, frail, obese, oriented Respiratory: clear to auscultation, normal air movement Cardiovascular: edema, regular rate and rhythm Gastrointestinal: non-tender, soft Extremities: edema Results Result Diagram: 02/13/17 0650 02/13/17 0650 Results 24 hrs Laboratory Tests Test 02/13/17 15:28 02/13/17 17:36 02/13/17 20:07 02/14/17 08:01 Bedside Glucose 90 131 132 77 Ammonia 34 #H Test 02/14/17 11:59 Bedside Glucose 120 Medications Medications Current Medications Ondansetron HCl (Zofran Inj) 4 mg Q4H PRN IV NAUSEA AND/OR VOMITING; Start 02/10 at 23:45 IV Flush (NS 10 ml) 10 ml PRN PRN IV FLUSH LINE; Start 02/10/17 at 23:45 Triamcinolone Acetonide (Kenalog 0.1% Oint) 1 applic BID TOP Last administered on 02/12/17 08:40; Admin Dose 1 APPLIC; Start 02/11/17 at 09:00 Vancomycin HCl PER PHARMACY DOSING NOTE XX ; Start 02/10/17 at 23:45 Vancomycin HCl/ Sodium Chloride (Vancocin/NS) 250 ml @ 83.333 mls/ hr Q96H IVPB ; Start 02/13/17 at 21:00 Furosemide (Lasix) 80 mg DAILY@06 PO Last administered on 02/14/17 06:27; Admin Dose 80 MG; Start 02/11/17 at 06:00 Lactulose (Enulose) 20 gm HS PO ; Start 02/11/17 at 21:00 Miscellaneous Information 1 ea NOTE XX ; Start 02/11/17 at 00:00 Glucose (Glutose) 15 gm Q15M PRN PO DECREASED GLUCOSE; Start 02/11/17 at 00:00 Glucose (Glutose) 22.5 gm Q15M PRN PO DECREASED GLUCOSE; Start 02/11/17 at 00:00 Dextrose (D50w Syringe) 25 ml Q15M PRN IV DECREASED GLUCOSE; Start 02/11/17 at 00:00 Dextrose (D50w Syringe) 50 ml Q15M PRN IV DECREASED GLUCOSE; Start 02/11/17 at 00:00 Glucagon (Glucagen) 1 mg Q15M PRN IM DECREASED GLUCOSE; Start 02/11/17 at 00:00 Glucose (Glutose) 15 gm Q15M PRN BUCCAL DECREASED GLUCOSE; Start 02/11/17 at 00: 00 Multivitamins Therapeutic (Theragran) 1 tab DAILY PO Last administered on 08:59; Admin Dose 1 TAB; Start 02/11/17 at 09:00 Nifedipine (Procardia Xl) 30 mg DAILY PO Last administered on 02/14/17 08:58; Admin Dose 30 MG; Start 02/11/17 at 09:00 Nitroglycerin (Nitroglycerin (Sl Tab) 0.4 Mg) 1 tab Q5M PRN SL CHEST PAIN; Start 02/11/17 at 00:00 Hydroxyzine HCl (Atarax) 10 mg Q6H PRN PO ITCHING; Start 02/11/17 at 00:00 Diagnostic Test (Pha) (Accu-Chek) 1 ea 02 XX Last administered on 02/13/17 02: 00; Admin Dose 1 EA; Start 02/11/17 at 02:00 Insulin Glargine (Lantus) 32 unit DAILY@20 SC Last administered on 02/13/17 20: 09; Admin Dose 32 UNIT; Start 02/11/17 at 20:00 Lactulose (Enulose) 20 gm Q6 PO Last administered on 02/14/17 06:26; Admin Dose 20 GM; Start 02/11/17 at 00:00 Acetaminophen (Tylenol Tab) 500 mg Q6H PRN PO PAIN AND OR ELEVATED TEMP Last administered on 02/13/17 19:54; Admin Dose 500 MG; Start 02/11/17 at 00:00 Atorvastatin Calcium (Lipitor) 20 mg DAILY@21 PO ; Start 02/11/17 at 21:00 Docusate Sodium (Colace) 100 mg BID PRN PO CONSTIPATION; Start 02/11/17 at 00:00 Epoetin Sean (Epogen (Esrd)) 10,000 units MoWeFr@17 SC Last administered on 02/13 17:49; Admin Dose 10,000 UNITS; Start 02/11/17 at 17:00 Linezolid (Zyvox) 600 mg BID PO Last administered on 02/14/17 08:59; Admin Dose 600 MG; Start 02/13/17 at 17:00 ANA MELENDEZ MD Feb 14, 2017 12:15
--- NOTE | 2017-02-14 12:21 | PN ---
Date/Time of Note Date/Time of Note DATE: 02/14/17 TIME: 12:13 Assessment/Plan VTE Prophylaxis VTE Prophylaxis Intervention: ambulation, other Lines/Catheters IV Catheter Type (from Nrsg): PICC Line Central line still needed: Yes Urinary Cath still in place: No Assessment/Plan Assessment/Plan 1. Disuse Myopathy with impaired mobility, gait and ADLs. Continue PT/OT. CGA for grooming, max assist for toileting. 2. Cirrhosis with history of Hepatitis C, hepatic encephalopathy. Medical management per GI and internal medicine. Continue ST for cognitive training. 3. VRE UTI. On antibiotics per internal medicine. Contact isolation. 4. ESRD on Hemodialysis per nephrology. Status post AV fistula placement yesterday. Continue tylenol as needed for pain. 5. Hypertension. BP controlled, continue current management. 6. Diabetes Mellitus type 2. Blood sugars controlled on insulin regimen. 7. History of CHF. Monitor volume status. 8. Anemia. Continue to monitor hemoglobin/hematocrit, stable on last labs. 9. Obstructive Sleep apnea 10. Morbid Obesity Subjective 24 Hr Interval Summary Free Text/Dictation Rehab progress note Subjective: Reports some pain RUE after undergoing AV fistula placement yesterday, pain controlled with tylenol. ROS: Denies headache, no chest pain, no shortness of breath, no abdominal pain, no nausea, no chills. Exam/Review of Systems Vital Signs Vitals Vital Signs Date Time Temp Pulse Resp B/P Pulse Ox O2 Delivery O2 Flow Rate FiO2 02/14/17 08:54 86 20 92 Nasal Cannula 2.0 02/14/17 08:00 136/66 02/14/17 02:00 97.7 Intake and Output 02/13/17 02/13/17 02/14/17 15:00 23:00 07:00 Intake Total 330 ml 700 ml 120 ml Output Total 10 ml Balance 320 ml 700 ml 120 ml Exam General: Awake, alert, no acute distress, obese CV: Regular rate, s1s2 Lungs: Symmetrical air entry bilaterally, no wheezing Abdomen soft, nontender Extremities: RUE AV fistula with dressing in place, no cyanosis Neuro: Follows simple commands. Antigravity strength BUE/BLE. Results Result Diagram: 02/13/17 0650 02/13/17 0650 Results 24 hrs Laboratory Tests Test 02/13/17 15:28 02/13/17 17:36 02/13/17 20:07 02/14/17 08:01 Bedside Glucose 90 131 132 77 Ammonia 34 #H Test 02/14/17 11:59 Bedside Glucose 120 Medications Medications Current Medications Ondansetron HCl (Zofran Inj) 4 mg Q4H PRN IV NAUSEA AND/OR VOMITING; Start 02/10 at 23:45 IV Flush (NS 10 ml) 10 ml PRN PRN IV FLUSH LINE; Start 02/10/17 at 23:45 Triamcinolone Acetonide (Kenalog 0.1% Oint) 1 applic BID TOP Last administered on 02/12/17 08:40; Admin Dose 1 APPLIC; Start 02/11/17 at 09:00 Vancomycin HCl PER PHARMACY DOSING NOTE XX ; Start 02/10/17 at 23:45 Vancomycin HCl/ Sodium Chloride (Vancocin/NS) 250 ml @ 83.333 mls/ hr Q96H IVPB ; Start 02/13/17 at 21:00 Furosemide (Lasix) 80 mg DAILY@06 PO Last administered on 02/14/17 06:27; Admin Dose 80 MG; Start 02/11/17 at 06:00 Lactulose (Enulose) 20 gm HS PO ; Start 02/11/17 at 21:00 Miscellaneous Information 1 ea NOTE XX ; Start 02/11/17 at 00:00 Glucose (Glutose) 15 gm Q15M PRN PO DECREASED GLUCOSE; Start 02/11/17 at 00:00 Glucose (Glutose) 22.5 gm Q15M PRN PO DECREASED GLUCOSE; Start 02/11/17 at 00:00 Dextrose (D50w Syringe) 25 ml Q15M PRN IV DECREASED GLUCOSE; Start 02/11/17 at 00:00 Dextrose (D50w Syringe) 50 ml Q15M PRN IV DECREASED GLUCOSE; Start 02/11/17 at 00:00 Glucagon (Glucagen) 1 mg Q15M PRN IM DECREASED GLUCOSE; Start 02/11/17 at 00:00 Glucose (Glutose) 15 gm Q15M PRN BUCCAL DECREASED GLUCOSE; Start 02/11/17 at 00: 00 Multivitamins Therapeutic (Theragran) 1 tab DAILY PO Last administered on 08:59; Admin Dose 1 TAB; Start 02/11/17 at 09:00 Nifedipine (Procardia Xl) 30 mg DAILY PO Last administered on 02/14/17 08:58; Admin Dose 30 MG; Start 02/11/17 at 09:00 Nitroglycerin (Nitroglycerin (Sl Tab) 0.4 Mg) 1 tab Q5M PRN SL CHEST PAIN; Start 02/11/17 at 00:00 Hydroxyzine HCl (Atarax) 10 mg Q6H PRN PO ITCHING; Start 02/11/17 at 00:00 Diagnostic Test (Pha) (Accu-Chek) 1 ea 02 XX Last administered on 02/13/17 02: 00; Admin Dose 1 EA; Start 02/11/17 at 02:00 Insulin Glargine (Lantus) 32 unit DAILY@20 SC Last administered on 02/13/17 20: 09; Admin Dose 32 UNIT; Start 02/11/17 at 20:00 Lactulose (Enulose) 20 gm Q6 PO Last administered on 02/14/17 12:12; Admin Dose 20 GM; Start 02/11/17 at 00:00 Acetaminophen (Tylenol Tab) 500 mg Q6H PRN PO PAIN AND OR ELEVATED TEMP Last administered on 02/13/17 19:54; Admin Dose 500 MG; Start 02/11/17 at 00:00 Atorvastatin Calcium (Lipitor) 20 mg DAILY@21 PO ; Start 02/11/17 at 21:00 Docusate Sodium (Colace) 100 mg BID PRN PO CONSTIPATION; Start 02/11/17 at 00:00 Epoetin Sean (Epogen (Esrd)) 10,000 units MoWeFr@17 SC Last administered on 02/13 17:49; Admin Dose 10,000 UNITS; Start 02/11/17 at 17:00 Linezolid (Zyvox) 600 mg BID PO Last administered on 02/14/17 08:59; Admin Dose 600 MG; Start 02/13/17 at 17:00 JEREMIE HARPER Feb 14, 2017 12:21
[2017-02-14] MEDS: ONDANSETRON 4 MG INJ IV PRN (14:27)
--- NOTE | 2017-02-14 15:47 | OPR ---
DATE OF OPERATION: 02/13/2017 PREOPERATIVE DIAGNOSIS: End-stage renal disease. POSTOPERATIVE DIAGNOSIS: End-stage renal disease. OPERATION PERFORMED: Creation of right upper arm AV graft. SURGEON: Sy Patiño MD ANESTHESIA: Local with sedation. ESTIMATED BLOOD LOSS: Less than 50 cc. COMPLICATIONS: There were no intraprocedural complications. INDICATIONS: This is a 61-year-old gentleman. He has end-stage renal disease and has been on dialysis now for a month. He has hepatitis C cirrhosis. He will need ongoing hemodialysis. He has a right IJ PermCath. Dr. Castro asked me to place an arm access. Vein mapping showed really poor superficial veins. I looked again this morning and even his basilic vein in the right arm is not suitable for access creation. He has a PICC line in the left arm basilic vein so that was not even an option, so I created an upper arm AV graft using a 5 mm Collagen Artegraft. OPERATIVE PROCEDURE: Patient was brought to the operating room and placed on the table in supine position. The right arm was insonated. I used the ultrasound to evaluate all the veins in the arm. He has good deep veins, good axillary and brachial veins, but the superficial veins were very small and atretic. The cephalic vein at the elbow looks good, but then just above that it becomes very, very small and is not suitable for access in the same with the basilica, so I marked the brachial artery just above the elbow and the axillary vein in the upper arm. We then prepped and draped the right arm in the usual sterile fashion. I began by infiltrating over the previously marked areas with 10 cc of 1 percent lidocaine. I then began by exposing the brachial artery just above the elbow and made a longitudinal incision over the brachial artery. We dissected down through the subcutaneous tissue using electrocautery. I dissected out the brachial artery. It was a nice soft healthy artery, it was a good size. I circumferentially dissected it out and directed my attention to the axillary vein and made a longitudinal incision over the axillary vein in the upper medial arm, dissected down through the subcutaneous tissue using electrocautery, then carefully dissected out the axillary vein. It was very extremely adherent to the artery, but it came dissected away easily. Once I had the artery and vein exposed, I then tunneled a 5 mm Artegraft between the 2 incisions using a Marily tunneler. I then clamped the axillary vein proximally and distally. I made a long cm and a half lung venotomy especially at the end of the graft to fit the venotomy and then anastomosed the distal end of the graft to the side of the axillary vein using 6-0 Prolene suture in a running standard vascular surgical fashion. I removed the clamps, there was good back flow and it flushed quite easily. I then clamped the graft and then clamped the brachial artery proximally and distally and an 8 mm long anterior arteriotomy, I cut the graft to appropriate length and anastomosed the proximal end of the graft to the side of brachial artery, again using 6-0 Prolene suture in a running, standard vascular surgical fashion. I removed the clamps, there was a good thrill in the graft and good hemostasis. I closed the skin incisions in 2 layers, the inner layer of 3-0 Vicryl and an outer layer of 4-0 Monocryl subcuticular suture. Sterile dressing was applied. The patient was transferred to recovery room in stable condition. He tolerated the procedure well without any complications. Dictated By: Sy Patiño MD /[email or web address] /Document#: [id number] CC: Ivan Brice MD; King Castro MD;*End*
--- NOTE | 2017-02-14 16:55 | PN ---
DATE: 02/14/2017 SUBJECTIVE DATA: The patient complains of mild pain in the right upper extremity, status post fistula placement. Appetite is still poor. PHYSICAL EXAMINATION: GENERAL: Patient is awake. VITAL SIGNS: Temperature 97.7, blood pressure 136/77, O2 sat 94 percent. HEENT: Head normocephalic. Mild pallor without cyanosis. Tongue is moist. NECK: Supple. No thyromegaly, bruits, lymphadenopathy. CHEST: Clear. HEART: S1, S2. No murmurs or gallops. EXTREMITIES: No edema. SKIN: Moderate dryness of the skin noted. LABORATORY DATA: Blood glucose levels 131, 132, 177. Serum ammonia level is 34. Urine culture is growing VRE, mixed gram- negative organisms and Reba albicans. The patient has been started on linezolid 600 p.o. b.i.d., still on vancomycin. IMPRESSION AND PLAN: 1. Acute on chronic renal failure on hemodialysis, status post recent fistula placement. 2. 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 3. Cirrhosis with portal hypertension. Check hepatitis C, no recent evidence of infection. 4. Hepatic encephalopathy, resolved. 5. Hypertension. 6. Diabetes mellitus type 2. Well controlled. 7. Congestive heart failure, resolved. 8. Anemia of thrombocytopenia, stable. 9. Obstructive sleep apnea. 10. Morbid obesity. 11. Urinary tract infection with vancomycin-resistant enterococcus. Patient already started on linezolid. Will discuss with Dr. Yadav. Consider discontinuing vancomycin if appropriate. Dictated By: Ivan Brice MD /[email or web address] /Document#: [id number]
[2017-02-14] MEDS: INSULIN GLARGINE [LANtus] 3 ML PEN SC SCH (20:14)
[2017-02-15] MEDS: ACCUCHECK AT 2AM (Patients on SS coverage) XX SCH (02:00)
[2017-02-15 03:11] VITALS: BP 139/65; PULSE 82; RESP 20
[2017-02-15] MEDS: ACETAMINOPHEN 500 MG TAB PO PRN (03:14)
[2017-02-15 05:48] VITALS: BP 140/67; PULSE 75
[2017-02-15] MEDS: FUROSEMIDE 40 MG TAB PO SCH (05:50)
[2017-02-15] MEDS: LACTULOSE 30ML CUP PO SCH ×6 (05:51→23:46)
[2017-02-15] MEDS: Insulin NOVOLOG SS MILD Algorithm (SS with meals and bedtime) SC SCH ×4 (07:05→20:22)
[2017-02-15 08:00] VITALS: BP 134/64; PULSE 76; RESP 18
[2017-02-15] MEDS: ALBUTEROL/IPRATROPIUM (NEB) 3 ML AMP HHN SCH ×4 (08:07→21:16)
[2017-02-15] MEDS: TRIAMCINOLONE ACET 0.1% 15 GM OINT TOP SCH ×2 (08:41→20:22)
[2017-02-15] MEDS: MULTIVITAMINS THERAPEUTIC TAB PO SCH (08:41)
[2017-02-15] MEDS: ZYVOX 600 MG TAB PO SCH ×2 (08:41→20:15)
[2017-02-15] MEDS: NIFEdipine (XL) 30 MG TAB PO SCH (08:41)
--- NOTE | 2017-02-15 11:48 | CONS ---
Date/Time of Note Date/Time of Note DATE: 02/15/17 TIME: 11:46 Assessment/Plan Assessment/Plan Chief Complaint/Hosp Course 1. ESRD , now on maintenance hemodialysis TTS . His next dialysis treatment is due in 2 day. I will speak to the dialysis nurse about not removing too much fluid. 2. Cirrhosis of the liver 3. malnourished 4. CHF 5. DM 6. Sleep apnea 7. History of hepatitis C, treated 8. History of hepatic encephalopathy, his ammonia level was slightly elevated at 34 yesterday. I told him that he needs to take the lactulose and keep himself from getting constipated. 9. Morbid obesity 10. He still has some intermittent nausea but is not vomiting. 11. Urinary tract infection. He is now growing VRE from his urine. His antibiotics have been adjusted and is now on Linazelide . 12. He continues to have a cough. I will order a CT scan of the chest without IV contrast. Problems: Consultation Date/Type/Reason Admit Date/Time Feb 10, 2017 at 22:43 24 HR Interval Summary Free Text/Dictation He continues to feel weak. He had hemodialysis yesterday and they removed 5 L of fluid. He is questioning whether that is too much fluid to be removed at once. He still complains of a cough. He is not eating very much. Constitutional: poor po Exam/Review of Systems Vital Signs Vitals Vital Signs Date Time Temp Pulse Resp B/P Pulse Ox O2 Delivery O2 Flow Rate FiO2 02/15/17 08:07 2.0 02/15/17 08:00 Nasal Cannula 02/15/17 05:48 75 140/67 02/15/17 03:11 99.3 20 92 Intake and Output 02/14/17 02/14/17 02/15/17 15:00 23:00 07:00 Intake Total 760 ml 1140 ml Output Total 5500 ml Balance 760 ml -4360 ml Exam Constitutional: alert, obese, oriented Respiratory: clear to auscultation, congested cough, diminished breath sounds Cardiovascular: edema, regular rate and rhythm Extremities: edema Results Result Diagram: 02/13/17 0650 02/13/17 0650 Results 24 hrs Laboratory Tests Test 02/14/17 11:59 02/14/17 17:11 02/14/17 20:04 02/15/17 08:33 Bedside Glucose 120 148 179 80 Medications Medications Current Medications Ondansetron HCl (Zofran Inj) 4 mg Q4H PRN IV NAUSEA AND/OR VOMITING Last administered on 02/14/17 14:27; Admin Dose 4 MG; Start 02/10/17 at 23:45 IV Flush (NS 10 ml) 10 ml PRN PRN IV FLUSH LINE; Start 02/10/17 at 23:45 Triamcinolone Acetonide (Kenalog 0.1% Oint) 1 applic BID TOP Last administered on 02/14/17 21:33; Admin Dose 1 APPLIC; Start 02/11/17 at 09:00 Furosemide (Lasix) 80 mg DAILY@06 PO Last administered on 02/15/17 05:50; Admin Dose 80 MG; Start 02/11/17 at 06:00 Lactulose (Enulose) 20 gm HS PO Last administered on 02/14/17 20:39; Admin Dose 20 GM; Start 02/11/17 at 21:00 Miscellaneous Information 1 ea NOTE XX ; Start 02/11/17 at 00:00 Glucose (Glutose) 15 gm Q15M PRN PO DECREASED GLUCOSE; Start 02/11/17 at 00:00 Glucose (Glutose) 22.5 gm Q15M PRN PO DECREASED GLUCOSE; Start 02/11/17 at 00:00 Dextrose (D50w Syringe) 25 ml Q15M PRN IV DECREASED GLUCOSE; Start 02/11/17 at 00:00 Dextrose (D50w Syringe) 50 ml Q15M PRN IV DECREASED GLUCOSE; Start 02/11/17 at 00:00 Glucagon (Glucagen) 1 mg Q15M PRN IM DECREASED GLUCOSE; Start 02/11/17 at 00:00 Glucose (Glutose) 15 gm Q15M PRN BUCCAL DECREASED GLUCOSE; Start 02/11/17 at 00: 00 Multivitamins Therapeutic (Theragran) 1 tab DAILY PO Last administered on 08:41; Admin Dose 1 TAB; Start 02/11/17 at 09:00 Nifedipine (Procardia Xl) 30 mg DAILY PO Last administered on 02/15/17 08:41; Admin Dose 30 MG; Start 02/11/17 at 09:00 Nitroglycerin (Nitroglycerin (Sl Tab) 0.4 Mg) 1 tab Q5M PRN SL CHEST PAIN; Start 02/11/17 at 00:00 Hydroxyzine HCl (Atarax) 10 mg Q6H PRN PO ITCHING; Start 02/11/17 at 00:00 Diagnostic Test (Pha) (Accu-Chek) 1 ea 02 XX Last administered on 02/13/17 02: 00; Admin Dose 1 EA; Start 02/11/17 at 02:00 Insulin Glargine (Lantus) 32 unit DAILY@20 SC Last administered on 02/14/17 20: 14; Admin Dose 32 UNIT; Start 02/11/17 at 20:00 Lactulose (Enulose) 20 gm Q6 PO Last administered on 02/14/17 17:16; Admin Dose 20 GM; Start 02/11/17 at 00:00 Acetaminophen (Tylenol Tab) 500 mg Q6H PRN PO PAIN AND OR ELEVATED TEMP Last administered on 02/15/17 03:14; Admin Dose 500 MG; Start 02/11/17 at 00:00 Atorvastatin Calcium (Lipitor) 20 mg DAILY@21 PO ; Start 02/11/17 at 21:00 Docusate Sodium (Colace) 100 mg BID PRN PO CONSTIPATION; Start 02/11/17 at 00:00 Epoetin Sean (Epogen (Esrd)) 10,000 units MoWeFr@17 SC Last administered on 02/13 17:49; Admin Dose 10,000 UNITS; Start 02/11/17 at 17:00 Linezolid (Zyvox) 600 mg BID PO Last administered on 02/15/17 08:41; Admin Dose 600 MG; Start 02/13/17 at 17:00 ANA MELENDEZ MD Feb 15, 2017 11:48
[2017-02-15 13:09] LABS: ALBUMIN 2.7 g/dl (3.3-4.9); ALBUMIN/GLOBULIN RATIO 0.48; BILIRUBIN,INDIRECT 0.3 mg/dl (0-1.1); BILIRUBIN,TOTAL 0.3 mg/dl (0.2-1.3); CALCIUM 7.9 mg/dl (8.4-10.2); CREATININE 6.28 mg/dl (0.61-1.24); POTASSIUM 3.7 mmol/L (3.5-5.1); TOTAL PROTEIN 8.3 g/dl (6.1-8.1)
--- NOTE | 2017-02-15 15:11 | PN ---
DATE: 02/15/2017 SUBJECTIVE: The patient had coughed up blood stained sputum yesterday and denies any chest pain, or shortness of breath. PO intake slightly improved. PHYSICAL EXAM: The patient is awake, alert. Overall appears much improved. VITAL SIGNS: Blood pressure 134/64, O2 sats 95 percent on 2 L nasal cannula. Mild pallor. CHEST: Clinically clear anteriorly. HEART: S1, S2. No definite gallops. EXTREMITIES: 1+ edema. Homans negative. WBC count is 5.4, hematocrit 29.7, platelet 118,000. Sodium 140, potassium 3.7, BUN 27, creatinine 6.28, glucose levels normal glycemic range. IMPRESSION: 1. Acute on chronic renal failure on hemodialysis. 2. 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 3. Cirrhosis of portal hypertension. No evidence of hepatitis C. 4. Hepatic encephalopathy, resolved. 5. Hypertension. 6. Diabetes mellitus type 2. Well controlled. 7. Congestive heart failure. Resolved. 8. Recent hemoptysis, probably related to acute hepatitis. Dr. Castro's recommendations noted and appreciated. The patient has been scheduled for a CT of the chest, which will be followed up. Continue rehab per Dr. Palencia. Dictated By: Ivan Brice MD /marlyn/ /Document#: [id number]
[2017-02-15 20:00] VITALS: BP 133/62; RESP 20
[2017-02-15] MEDS: INSULIN GLARGINE [LANtus] 3 ML PEN SC SCH (20:18)
[2017-02-16] MEDS: ACCUCHECK AT 2AM (Patients on SS coverage) XX SCH (02:00)
[2017-02-16] MEDS: FUROSEMIDE 40 MG TAB PO SCH (06:35)
[2017-02-16] MEDS: LACTULOSE 30ML CUP PO SCH ×4 (06:35→20:08)
[2017-02-16] MEDS: Insulin NOVOLOG SS MILD Algorithm (SS with meals and bedtime) SC SCH ×4 (07:05→20:14)
[2017-02-16 07:30] VITALS: BP 126/79; RESP 20
[2017-02-16] MEDS: ALBUTEROL/IPRATROPIUM (NEB) 3 ML AMP HHN SCH ×4 (07:33→21:21)
[2017-02-16 07:41] LABS: BASOPHILS % 0.4 % (0.0-2.0); EOSINOPHILS # 0.2 10^3/ul (0.0-0.5); EOSINOPHILS % 3.5 % (0.0-7.0); HEMATOCRIT 31.3 % (42.0-52.0); HEMOGLOBIN 9.4 g/dl (14.0-18.0); LYMPHOCYTES # 1.2 10^3/ul (0.8-2.9); MEAN CORPUSCULAR VOLUME 86.5 fl (82.0-101.0); MEAN PLATELET VOLUME 9.5 fl (7.4-10.4); MONOCYTE # 0.5 10^3/ul (0.3-0.9); MONOCYTES % 8.4 % (0.0-11.0); NEUTROPHIL # 3.6 10^3/ul (1.6-7.5); NEUTROPHILS % 66.3 % (39.0-77.0); PLATELET COUNT 105 10^3/UL (140-415); RED BLOOD COUNT 3.62 10^6/ul (4.70-6.10); WHITE BLOOD COUNT 5.5 10^3/ul (4.8-10.8)
[2017-02-16] MEDS: TRIAMCINOLONE ACET 0.1% 15 GM OINT TOP SCH ×2 (09:00→20:08)
[2017-02-16] MEDS: ZYVOX 600 MG TAB PO SCH ×2 (09:21→20:08)
[2017-02-16] MEDS: MULTIVITAMINS THERAPEUTIC TAB PO SCH (09:21)
[2017-02-16] MEDS: NIFEdipine (XL) 30 MG TAB PO SCH (09:21)
[2017-02-16] MEDS: ACETAMINOPHEN 500 MG TAB PO PRN (09:21)
[2017-02-16] MEDS: NITROGLYCERIN (SL) 0.4 MG TAB SL PRN ×2 (09:48→09:53)
--- NOTE | 2017-02-16 10:52 | RADRPT ---
PROCEDURE: XR Chest. CLINICAL INDICATION: CHEST PAIN TECHNIQUE: Single frontal view of the chest was obtained COMPARISON: Chest x-ray 02/12/2017 FINDINGS: A right-sided dialysis catheter is stable in position with tip projecting over the mid right atrium. A left-sided PICC line with tip projecting over the mid superior vena cava is also stable. There are low lung volumes with persistent mild elevation of the right hemidiaphragm. The cardiac silhouette remains enlarged. New ill-defined opacity in the left mid lung is suspicious for new infiltrate, versus atelectasis. There is persistent mild pulmonary vascular congestion with interstitial prominence. There is improved aeration at the right lung base and persistent mild left basilar atelectasis. No pneumothorax or significant pleural effusion is seen. There are degenerative changes of the visualized spine. IMPRESSION: 1. New ill-defined opacity in the left mid lung, possibly a new infiltrate versus atelectasis. 2. Cardiomegaly with stable mild pulmonary vascular congestion and interstitial prominence. 3. Interval improved aeration at the right lung base with persistent mild left basilar atelectasis. 4. Stable support lines. RPTAT: PP Physician Stanley Date Time Electronically viewed and signed by Physician Stanley on 02/16/2017 10:51 TIM/
[2017-02-16 11:16] LABS: Allen Test ACCEPTAB; Arterial Base Excess 0.6 mmol/L (-3.0-3); Arterial COHb 0.3 % (0.0-3.0); Arterial Fraction of Oxyhgb 96.6 % (93.0-99.0); Arterial HCO3 26.1 mmol/L (22.0-26.0); Arterial MetHb 0.4 % (0.0-1.5); MODE NASAL CANNULA
--- NOTE | 2017-02-16 11:37 | CONS ---
Date/Time of Note Date/Time of Note DATE: 02/16/17 TIME: 11:27 Assessment/Plan Assessment/Plan Chief Complaint/Hosp Course 1. ESRD , now on maintenance hemodialysis TTS . His next dialysis treatment is due tomorrow and is ordered .. I will speak to the dialysis nurse about not removing too much fluid. 2. Cirrhosis of the liver 3. malnourished 4. CHF 5. DM 6. Sleep apnea 7. History of hepatitis C, treated 8. History of hepatic encephalopathy, his ammonia level was slightly elevated at 34 yesterday. I told him that he needs to take the lactulose and keep himself from getting constipated. 9. Morbid obesity 10. He still has some intermittent nausea but is not vomiting. 11. Urinary tract infection. He is now growing VRE from his urine. His antibiotics have been adjusted and is now on Linazelide . 12. He continues to have a cough. I will order a CT scan of the chest without IV contrast. 13 chest pain , L sided , he has chest wall tenderness which reproduces the chest pain that he had this morning . Doubt that this is cardiac pain . Problems: Consultation Date/Type/Reason Admit Date/Time Feb 10, 2017 at 22:43 24 HR Interval Summary Free Text/Dictation He had chest pain this morning . He was given nitroglycerin and pain resolved . He does have some chest wall tenderness on the L side of his chest which reproduces the chest pain that he had earlier . Exam/Review of Systems Vital Signs Vitals Vital Signs Date Time Temp Pulse Resp B/P Pulse Ox O2 Delivery O2 Flow Rate FiO2 02/16/17 07:33 81 20 90 21 02/15/17 21:21 2.0 02/15/17 21:19 Nasal Cannula 02/15/17 20:00 98.7 133/62 Intake and Output 02/15/17 02/15/17 02/16/17 15:00 23:00 07:00 Intake Total 480 ml Balance 480 ml Exam Constitutional: alert, frail, obese, oriented Neck: supple Respiratory: clear to auscultation, diminished breath sounds Cardiovascular: edema, regular rate and rhythm Gastrointestinal: non-tender, soft Musculoskeletal: nl extremities to inspection Extremities: edema Results Result Diagram: 02/16/17 0657 02/15/17 1210 Results 24 hrs Laboratory Tests Test 8/6/17 12:10 02/15/17 12:15 02/15/17 17:25 02/15/17 20:13 Sodium Level 140 Potassium Level 3.7 Chloride Level 97 Carbon Dioxide Level 26 Anion Gap 21 H Blood Urea Nitrogen 27 H Creatinine 6.28 H Glucose Level 135 Calcium Level 7.9 L Total Bilirubin 0.3 Direct Bilirubin 0.00 Indirect Bilirubin 0.3 Aspartate Amino Transf (AST/SGOT) 37 Alanine Aminotransferase (ALT/SGPT) 14 Alkaline Phosphatase 118 Total Protein 8.3 H Albumin 2.7 L Globulin 5.60 H Albumin/Globulin Ratio 0.48 Bedside Glucose 136 138 134 Test 02/16/17 06:57 02/16/17 08:00 02/16/17 10:13 White Blood Count 5.5 Red Blood Count 3.62 L Hemoglobin 9.4 L Hematocrit 31.3 L Mean Corpuscular Volume 86.5 Mean Corpuscular Hemoglobin 26.0 L Mean Corpuscular Hemoglobin Concent 30.0 L Red Cell Distribution Width 20.0 H Platelet Count 105 L Mean Platelet Volume 9.5 Neutrophils % 66.3 Lymphocytes % 21.0 Monocytes % 8.4 Eosinophils % 3.5 Basophils % 0.4 Nucleated Red Blood Cells % 0.0 Neutrophils # 3.6 Lymphocytes # 1.2 Monocytes # 0.5 Eosinophils # 0.2 Basophils # 0.0 Nucleated Red Blood Cells # 0.0 Bedside Glucose 135 Blood Gas Specimen Source Blood arterial Arterial Blood Date Drawn 02/16/2017 10:50:55 AM Arterial Blood pH (Temp corrected) 7.371 Arterial Blood pCO2 (Temp correct) 46.1 H Arterial Blood pO2 (Temp corrected) 99.7 Arterial Blood HCO3 26.1 H Arterial Blood Base Excess 0.6 Arterial Blood Oxygen Saturation 97.3 Oswaldo Test ACCEPTAB Arterial Blood Gas Puncture Site Left Radial Arterial Blood Carboxyhemoglobin 0.3 Arterial Blood Methemoglobin 0.4 Blood Gas A-a O2 Differential 60.0 H Oxyhemoglobin Percent 96.6 Total Hemoglobin 10.0 L Blood Gas Temperature 37.0 Blood Gas Modality NASAL CANNULA FiO2 30.0 Blood Gas Notified Whom JLD Blood Gas Notified Time 02/16/2017 11:16:47 AM Medications Medications Current Medications Ondansetron HCl (Zofran Inj) 4 mg Q4H PRN IV NAUSEA AND/OR VOMITING Last administered on 02/14/17t 14:27; Admin Dose 4 MG; Start 8/1/17 at 23:45 IV Flush (NS 10 ml) 10 ml PRN PRN IV FLUSH LINE; Start 02/10/17 at 23:45 Triamcinolone Acetonide (Kenalog 0.1% Oint) 1 applic BID TOP Last administered on 02/14/17 21:33; Admin Dose 1 APPLIC; Start 02/11/17 at 09:00 Furosemide (Lasix) 80 mg DAILY@06 PO Last administered on 02/16/17 06:35; Admin Dose 80 MG; Start 02/11/17 at 06:00 Lactulose (Enulose) 20 gm HS PO Last administered on 02/15/17 20:15; Admin Dose 20 GM; Start 02/11/17 at 21:00 Miscellaneous Information 1 ea NOTE XX ; Start 02/11/17 at 00:00 Glucose (Glutose) 15 gm Q15M PRN PO DECREASED GLUCOSE; Start 02/11/17 at 00:00 Glucose (Glutose) 22.5 gm Q15M PRN PO DECREASED GLUCOSE; Start 02/11/17 at 00:00 Dextrose (D50w Syringe) 25 ml Q15M PRN IV DECREASED GLUCOSE; Start 02/11/17 at 00:00 Dextrose (D50w Syringe) 50 ml Q15M PRN IV DECREASED GLUCOSE; Start 02/11/17 at 00:00 Glucagon (Glucagen) 1 mg Q15M PRN IM DECREASED GLUCOSE; Start 02/11/17 at 00:00 Glucose (Glutose) 15 gm Q15M PRN BUCCAL DECREASED GLUCOSE; Start 02/11/17 at 00: 00 Multivitamins Therapeutic (Theragran) 1 tab DAILY PO Last administered on 09:21; Admin Dose 1 TAB; Start 02/11/17 at 09:00 Nifedipine (Procardia Xl) 30 mg DAILY PO Last administered on 02/16/17 09:21; Admin Dose 30 MG; Start 02/11/17 at 09:00 Nitroglycerin (Nitroglycerin (Sl Tab) 0.4 Mg) 1 tab Q5M PRN SL CHEST PAIN Last administered on 02/16/17 09:53; Admin Dose 1 TAB; Start 02/11/17 at 00:00 Hydroxyzine HCl (Atarax) 10 mg Q6H PRN PO ITCHING; Start 02/11/17 at 00:00 Diagnostic Test (Pha) (Accu-Chek) 1 ea 02 XX Last administered on 02/13/17 02: 00; Admin Dose 1 EA; Start 02/11/17 at 02:00 Insulin Glargine (Lantus) 32 unit DAILY@20 SC Last administered on 02/15/17 20: 18; Admin Dose 32 UNIT; Start 02/11/17 at 20:00 Lactulose (Enulose) 20 gm Q6 PO Last administered on 02/16/17 06:35; Admin Dose 20 GM; Start 02/11/17 at 00:00 Acetaminophen (Tylenol Tab) 500 mg Q6H PRN PO PAIN AND OR ELEVATED TEMP Last administered on 02/16/17 09:21; Admin Dose 500 MG; Start 02/11/17 at 00:00 Atorvastatin Calcium (Lipitor) 20 mg DAILY@21 PO ; Start 02/11/17 at 21:00 Docusate Sodium (Colace) 100 mg BID PRN PO CONSTIPATION; Start 02/11/17 at 00:00 Epoetin Sean (Epogen (Esrd)) 10,000 units MoWeFr@17 SC Last administered on 02/13 17:49; Admin Dose 10,000 UNITS; Start 02/11/17 at 17:00 Linezolid (Zyvox) 600 mg BID PO Last administered on 02/16/17 09:21; Admin Dose 600 MG; Start 02/13/17 at 17:00 ANA MELENDEZ MD Feb 16, 2017 11:37
--- NOTE | 2017-02-16 13:33 | CONS ---
Date/Time of Note Date/Time of Note DATE: 02/16/17 TIME: 13:33 Consult Date/Type/Reason Admit Date/Time Feb 10, 2017 at 22:43 Objective Vital Signs Date Time Temp Pulse Resp B/P Pulse Ox O2 Delivery O2 Flow Rate FiO2 02/16/17 07:33 81 20 90 21 02/15/17 21:21 2.0 02/15/17 21:19 Nasal Cannula 02/15/17 20:00 98.7 133/62 Intake and Output 02/15/17 02/15/17 02/16/17 15:00 23:00 07:00 Intake Total 480 ml Balance 480 ml INTERDISCIPLINARY TEAM CONFERENCE BOWEL- Cont BLADDER-ARF- HD per renal SKIN- intact OT- DRESSING-min/mod BATHING-min/mod TOILETING-mod PT- BED MOBILITY-min/mod TRANSFERS-min/mod AMBULATION-min/mod SPEECH- COGNITION-min A/P- Interdisciplinary team conference held today. Please see interdisciplinary sheet. Working toward d.cDawn on 02/24 with post discharge follow up of physical therapy, occupational Results/Medications Result Diagram: 02/16/17 0657 02/15/17 1210 Results 24 hrs Laboratory Tests Test 02/15/17 17:25 02/15/17 20:13 02/16/17 06:57 02/16/17 08:00 Bedside Glucose 138 134 135 White Blood Count 5.5 Red Blood Count 3.62 L Hemoglobin 9.4 L Hematocrit 31.3 L Mean Corpuscular Volume 86.5 Mean Corpuscular Hemoglobin 26.0 L Mean Corpuscular Hemoglobin Concent 30.0 L Red Cell Distribution Width 20.0 H Platelet Count 105 L Mean Platelet Volume 9.5 Neutrophils % 66.3 Lymphocytes % 21.0 Monocytes % 8.4 Eosinophils % 3.5 Basophils % 0.4 Nucleated Red Blood Cells % 0.0 Neutrophils # 3.6 Lymphocytes # 1.2 Monocytes # 0.5 Eosinophils # 0.2 Basophils # 0.0 Nucleated Red Blood Cells # 0.0 Hepatitis B Surface Antigen NEGATIVE Hepatitis C Antibody Pending Test 02/16/17 10:13 02/16/17 12:11 Blood Gas Specimen Source Blood arterial Arterial Blood Date Drawn 02/16/2017 10:50:55 AM Arterial Blood pH (Temp corrected) 7.371 Arterial Blood pCO2 (Temp correct) 46.1 H Arterial Blood pO2 (Temp corrected) 99.7 Arterial Blood HCO3 26.1 H Arterial Blood Base Excess 0.6 Arterial Blood Oxygen Saturation 97.3 Oswaldo Test ACCEPTAB Arterial Blood Gas Puncture Site Left Radial Arterial Blood Carboxyhemoglobin 0.3 Arterial Blood Methemoglobin 0.4 Blood Gas A-a O2 Differential 60.0 H Oxyhemoglobin Percent 96.6 Total Hemoglobin 10.0 L Blood Gas Temperature 37.0 Blood Gas Modality NASAL CANNULA FiO2 30.0 Blood Gas Notified Whom JLD Blood Gas Notified Time 02/16/2017 11:16:47 AM Bedside Glucose 140 Medications Current Medications Ondansetron HCl (Zofran Inj) 4 mg Q4H PRN IV NAUSEA AND/OR VOMITING Last administered on 02/14/17 14:27; Admin Dose 4 MG; Start 02/10/17 at 23:45 IV Flush (NS 10 ml) 10 ml PRN PRN IV FLUSH LINE; Start 02/10/17 at 23:45 Triamcinolone Acetonide (Kenalog 0.1% Oint) 1 applic BID TOP Last administered on 02/14/17 21:33; Admin Dose 1 APPLIC; Start 02/11/17 at 09:00 Furosemide (Lasix) 80 mg DAILY@06 PO Last administered on 02/16/17 06:35; Admin Dose 80 MG; Start 02/11/17 at 06:00 Lactulose (Enulose) 20 gm HS PO Last administered on 02/15/17 20:15; Admin Dose 20 GM; Start 02/11/17 at 21:00 Miscellaneous Information 1 ea NOTE XX ; Start 02/11/17 at 00:00 Glucose (Glutose) 15 gm Q15M PRN PO DECREASED GLUCOSE; Start 02/11/17 at 00:00 Glucose (Glutose) 22.5 gm Q15M PRN PO DECREASED GLUCOSE; Start 02/11/17 at 00:00 Dextrose (D50w Syringe) 25 ml Q15M PRN IV DECREASED GLUCOSE; Start 02/11/17 at 00:00 Dextrose (D50w Syringe) 50 ml Q15M PRN IV DECREASED GLUCOSE; Start 02/11/17 at 00:00 Glucagon (Glucagen) 1 mg Q15M PRN IM DECREASED GLUCOSE; Start 02/11/17 at 00:00 Glucose (Glutose) 15 gm Q15M PRN BUCCAL DECREASED GLUCOSE; Start 02/11/17 at 00: 00 Multivitamins Therapeutic (Theragran) 1 tab DAILY PO Last administered on 09:21; Admin Dose 1 TAB; Start 02/11/17 at 09:00 Nifedipine (Procardia Xl) 30 mg DAILY PO Last administered on 02/16/17 09:21; Admin Dose 30 MG; Start 02/11/17 at 09:00 Nitroglycerin (Nitroglycerin (Sl Tab) 0.4 Mg) 1 tab Q5M PRN SL CHEST PAIN Last administered on 02/16/17 09:53; Admin Dose 1 TAB; Start 02/11/17 at 00:00 Hydroxyzine HCl (Atarax) 10 mg Q6H PRN PO ITCHING; Start 02/11/17 at 00:00 Diagnostic Test (Pha) (Accu-Chek) 1 ea 02 XX Last administered on 02/13/17 02: 00; Admin Dose 1 EA; Start 02/11/17 at 02:00 Insulin Glargine (Lantus) 32 unit DAILY@20 SC Last administered on 02/15/17 20: 18; Admin Dose 32 UNIT; Start 02/11/17 at 20:00 Lactulose (Enulose) 20 gm Q6 PO Last administered on 02/16/17 06:35; Admin Dose 20 GM; Start 02/11/17 at 00:00 Acetaminophen (Tylenol Tab) 500 mg Q6H PRN PO PAIN AND OR ELEVATED TEMP Last administered on 02/16/17 09:21; Admin Dose 500 MG; Start 02/11/17 at 00:00 Atorvastatin Calcium (Lipitor) 20 mg DAILY@21 PO ; Start 02/11/17 at 21:00 Docusate Sodium (Colace) 100 mg BID PRN PO CONSTIPATION; Start 02/11/17 at 00:00 Epoetin Sean (Epogen (Esrd)) 10,000 units MoWeFr@17 SC Last administered on 02/13 17:49; Admin Dose 10,000 UNITS; Start 02/11/17 at 17:00 Linezolid (Zyvox) 600 mg BID PO Last administered on 02/16/17 09:21; Admin Dose 600 MG; Start 02/13/17 at 17:00 Assessment/Plan Chief Complaint/Hosp Course Rehab-Disuse Myopathy; encephalopathy Interdisciplinary treatment plan as tolerated Cirrhosis secondary to Hepatitis C Acute on Chronic Renal Failure on Hemodialysis Hypertension Diabetes Mellitus type 2 CHF Anemia Sleep apnea Morbid Obesity Problems: CYNTHIA RODRIGUEZ MD Feb 16, 2017 13:33
[2017-02-16 14:00] VITALS: BP 145/72; RESP 20
--- NOTE | 2017-02-16 14:38 | RADRPT ---
Vent Rate: 85 bpm RR Interval: 0 msec NH Interval: 170 msec QRS Duration: 92 msec QT Interval: 424 msec QTC Interval: 504 msec P-R-T [place]: 47 - -7 - 19 degrees Normal sinus rhythm Minimal voltage criteria for LVH, may be normal variant Prolonged QT Abnormal ECG Electronically Signed By: Matti Lo [id number]
--- NOTE | 2017-02-16 15:57 | RADRPT ---
PROCEDURE: CT Chest without contrast. CLINICAL INDICATION: Cough. TECHNIQUE: Multiple contiguous helical CT images of the chest were obtained without the administra tion of intravenous contrast. Coronal and sagittal reformatted images were obtained from the source images. CTDIvol (mGy): 16.64; Total Exam DLP (mGy-cm): 604.70. One or more of the following dose reduction techniques were utilized: - Automated exposure control. - Adjustment of the mA and/or kV according to patient size. - Use of iterative reconstruction technique. COMPARISON: Chest x-ray 02/16/2017. FINDINGS: Limited imaging of the lower neck demonstrates mild diffuse enlargement of thyroid gland. The heart is mildly enlarged. A right-sided hemodialysis catheter is centered at the SVC/right atri al junction. There is no pericardial effusion. There is no mediastinal, hilar or axillary lymphade nopathy. Scattered small calcified mediastinal lymph nodes are present and compatible with old granu lomatous disease. The thoracic aorta is normal in caliber. Mild thoracic aortic atherosclerotic calc ification is observed. Coronary artery calcifications are present. The pulmonary arteries are not e nlarged. Mild pulmonary vascular congestion is observed. A left upper extremity PICC terminates with in the upper SVC. Trace bilateral pleural fluid is present. Low lung volumes are present. Bibasilar atelectatic mccann es are observed. There is an elongated homogeneous nodule measuring 2.4 cm and longest dimension, w hich is unchanged. A tiny tree in bud nodules within the immediate surrounding pulmonary parenchyma are present. Scattered few calcified subpleural nodules are seen within the right hemithorax. Mil d diffuse bronchial wall thickening is present and unchanged. Limited imaging of the upper abdomen demonstrates cirrhosis and portal hypertension as evidenced by splenic enlargement and moderate upper abdominal varices. Mild degenerative changes of the thoracic spine are present. Chest wall soft tissues are unremarkab le. IMPRESSION: Cardiomegaly and atherosclerosis with trace bilateral pleural effusions and mild pulmonary vascular congestion. Hypoinflation with mild basilar atelectatic changes and mild diffuse bronchial wall thickening. Calcified mediastinal lymph nodes compatible with old granulomatous disease. Homogeneous elongated nodule of the left upper lobe, unchanged. Imaging findings may reflect a prom inent bronchocele. A small cluster of tree in bud nodules are seen within the immediate surrounding pulmonary parenchyma and are also unchanged. Follow-up may be obtained in 6 months. Cirrhosis and portal hypertension. RPTAT: [facility] .Nancy Mayo MD, MD Date Time Electronically viewed and signed by .Nancy Mayo MD, MD on 02/16/2017 15:57 .T/
--- NOTE | 2017-02-16 17:07 | PN ---
DATE: 02/16/2017 SUBJECTIVE: The patient had an episode of chest pain this morning. Presently asymptomatic. Just had a CT of the chest, results pending. Occasional cough. PHYSICAL EXAMINATION: VITAL SIGNS: Temperature 98.5, blood pressure 126/79. CHEST: Clinically clear the bases. HEART: S1, S2. No rubs or gallops. EXTREMITIES: 1+ edema. Homans negative. LABORATORY AND DIAGNOSTIC DATA: WBC count 5.5, hematocrit 31.3, platelet count 105,000. Troponin 0.04. EKG shows normal sinus rhythm, no acute changes. Blood gas done this morning showed a PO2 of 99.7, pCO2 46.1, and pH 7.37. IMPRESSION: 1. Atypical chest pain. No suggestion of an acute ischemic event. 2. Acute on chronic failure, on hemodialysis. 3. 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 4. Cirrhosis, portal hypertension. 5. Hepatic encephalopathy. 6. Hypertension. 7. Diabetes mellitus type 2, well controlled. 8. Congestive heart failure, resolved. 9. Recent hemoptysis, probably related to acute bronchitis. PLAN: We will continue present rehab. Review CTs of the chest. Continue recommendations per [____] and Dr. Castro. Dictated By: Ivan Brice MD /marlyn/preston /Document#: [id number]
[2017-02-16] MEDS: EPOETIN 10000 UNITS/1 ML INJ (ESRD) SC SCH (17:56)
[2017-02-16 20:00] VITALS: BP 139/68; RESP 18
[2017-02-16] MEDS: INSULIN GLARGINE [LANtus] 3 ML PEN SC SCH (20:14)
[2017-02-17] VITALS (11 sets, daily range): BP systolic 120–177; BP diastolic 62–104; PULSE 79–90; RESP 18
[2017-02-17] MEDS: ACCUCHECK AT 2AM (Patients on SS coverage) XX SCH (02:21)
[2017-02-17] MEDS: LACTULOSE 30ML CUP PO SCH ×5 (06:30→21:00)
[2017-02-17] MEDS: FUROSEMIDE 40 MG TAB PO SCH (06:31)
[2017-02-17] MEDS: Insulin NOVOLOG SS MILD Algorithm (SS with meals and bedtime) SC SCH ×4 (07:05→21:00)
[2017-02-17] MEDS: ALBUTEROL/IPRATROPIUM (NEB) 3 ML AMP HHN SCH ×4 (08:34→20:33)
[2017-02-17] MEDS: TRIAMCINOLONE ACET 0.1% 15 GM OINT TOP SCH ×2 (09:00→21:00)
--- NOTE | 2017-02-17 09:17 | CONS ---
Date/Time of Note Date/Time of Note DATE: 02/17/17 TIME: 09:12 Assessment/Plan Assessment/Plan Chief Complaint/Hosp Course 1. ESRD , now on maintenance hemodialysis TTS . His next dialysis treatment is due today and is ordered .. I will speak to the dialysis nurse about not removing too much fluid. 2. Cirrhosis of the liver 3. malnourished 4. CHF 5. DM 6. Sleep apnea 7. History of hepatitis C, treated 8. History of hepatic encephalopathy, his ammonia level was slightly elevated at 34 . I told him that he needs to take the lactulose and keep himself from getting constipated. 9. Morbid obesity 10. He still has some intermittent nausea but is not vomiting. 11. Urinary tract infection. He is now growing VRE from his urine. His antibiotics have been adjusted and is now on Linazelide . 12. He continues to have a cough. I will order a CT scan of the chest without IV contrast. 13 chest pain , L sided , he has chest wall tenderness which reproduces the chest pain that he had this morning . Doubt that this is cardiac pain . 14. continues with cough and SOB , CT of chest shows cardiomegaly and some pulmonary vascular congestion Problems: Consultation Date/Type/Reason Admit Date/Time Feb 10, 2017 at 22:43 24 HR Interval Summary Free Text/Dictation He is up walking with PT . C/O cough , especially at night . Exam/Review of Systems Vital Signs Vitals Vital Signs Date Time Temp Pulse Resp B/P Pulse Ox O2 Delivery O2 Flow Rate FiO2 02/17/17 08:34 77 18 90 Nasal Cannula 2.0 21 02/17/17 08:00 97.9 177/104 Exam Constitutional: alert, frail, obese, oriented Neck: supple Respiratory: clear to auscultation, normal air movement Cardiovascular: edema, regular rate and rhythm Gastrointestinal: non-tender, soft Musculoskeletal: nl extremities to inspection Results Result Diagram: 02/16/17 0657 02/15/17 1210 Results 24 hrs Laboratory Tests Test 02/16/17 10:13 02/16/17 12:07 02/16/17 12:11 02/16/17 17:30 Blood Gas Specimen Source Blood arterial Arterial Blood Date Drawn 02/16/2017 10:50:55 AM Arterial Blood pH (Temp corrected) 7.371 Arterial Blood pCO2 (Temp correct) 46.1 H Arterial Blood pO2 (Temp corrected) 99.7 Arterial Blood HCO3 26.1 H Arterial Blood Base Excess 0.6 Arterial Blood Oxygen Saturation 97.3 Oswaldo Test ACCEPTAB Arterial Blood Gas Puncture Site Left Radial Arterial Blood Carboxyhemoglobin 0.3 Arterial Blood Methemoglobin 0.4 Blood Gas A-a O2 Differential 60.0 H Oxyhemoglobin Percent 96.6 Total Hemoglobin 10.0 L Blood Gas Temperature 37.0 Blood Gas Modality NASAL CANNULA FiO2 30.0 Blood Gas Notified Whom JLD Blood Gas Notified Time 02/16/2017 11:16:47 AM Troponin I 0.043 Bedside Glucose 140 143 Test 02/16/17 20:05 02/17/17 02:04 02/17/17 08:02 Bedside Glucose 201 130 103 Medications Medications Current Medications Ondansetron HCl (Zofran Inj) 4 mg Q4H PRN IV NAUSEA AND/OR VOMITING Last administered on 02/14/17 14:27; Admin Dose 4 MG; Start 02/10/17 at 23:45 IV Flush (NS 10 ml) 10 ml PRN PRN IV FLUSH LINE; Start 02/10/17 at 23:45 Triamcinolone Acetonide (Kenalog 0.1% Oint) 1 applic BID TOP Last administered on 02/14/17 21:33; Admin Dose 1 APPLIC; Start 02/11/17 at 09:00 Furosemide (Lasix) 80 mg DAILY@06 PO Last administered on 02/17/17 06:31; Admin Dose 80 MG; Start 02/11/17 at 06:00 Lactulose (Enulose) 20 gm HS PO Last administered on 02/15/17 20:15; Admin Dose 20 GM; Start 02/11/17 at 21:00 Miscellaneous Information 1 ea NOTE XX ; Start 02/11/17 at 00:00 Glucose (Glutose) 15 gm Q15M PRN PO DECREASED GLUCOSE; Start 02/11/17 at 00:00 Glucose (Glutose) 22.5 gm Q15M PRN PO DECREASED GLUCOSE; Start 02/11/17 at 00:00 Dextrose (D50w Syringe) 25 ml Q15M PRN IV DECREASED GLUCOSE; Start 02/11/17 at 00:00 Dextrose (D50w Syringe) 50 ml Q15M PRN IV DECREASED GLUCOSE; Start 02/11/17 at 00:00 Glucagon (Glucagen) 1 mg Q15M PRN IM DECREASED GLUCOSE; Start 02/11/17 at 00:00 Glucose (Glutose) 15 gm Q15M PRN BUCCAL DECREASED GLUCOSE; Start 02/11/17 at 00: 00 Multivitamins Therapeutic (Theragran) 1 tab DAILY PO Last administered on 09:21; Admin Dose 1 TAB; Start 02/11/17 at 09:00 Nifedipine (Procardia Xl) 30 mg DAILY PO Last administered on 02/16/17 09:21; Admin Dose 30 MG; Start 02/11/17 at 09:00 Nitroglycerin (Nitroglycerin (Sl Tab) 0.4 Mg) 1 tab Q5M PRN SL CHEST PAIN Last administered on 02/16/17 09:53; Admin Dose 1 TAB; Start 02/11/17 at 00:00 Hydroxyzine HCl (Atarax) 10 mg Q6H PRN PO ITCHING; Start 02/11/17 at 00:00 Diagnostic Test (Pha) (Accu-Chek) 1 ea 02 XX Last administered on 02/17/17 02: 21; Admin Dose 1 EA; Start 02/11/17 at 02:00 Insulin Glargine (Lantus) 32 unit DAILY@20 SC Last administered on 02/16/17 20: 14; Admin Dose 32 UNIT; Start 02/11/17 at 20:00 Lactulose (Enulose) 20 gm Q6 PO Last administered on 02/17/17 06:30; Admin Dose 20 GM; Start 02/11/17 at 00:00 Acetaminophen (Tylenol Tab) 500 mg Q6H PRN PO PAIN AND OR ELEVATED TEMP Last administered on 02/16/17 09:21; Admin Dose 500 MG; Start 02/11/17 at 00:00 Atorvastatin Calcium (Lipitor) 20 mg DAILY@21 PO ; Start 02/11/17 at 21:00 Docusate Sodium (Colace) 100 mg BID PRN PO CONSTIPATION; Start 02/11/17 at 00:00 Epoetin Sean (Epogen (Esrd)) 10,000 units MoWeFr@17 SC Last administered on 02/16 17:56; Admin Dose 10,000 UNITS; Start 02/11/17 at 17:00 Linezolid (Zyvox) 600 mg BID PO Last administered on 02/16/17t 20:08; Admin Dose 600 MG; Start 02/13/17 at 17:00 ANA MELENDEZ MD Feb 17, 2017 09:17
[2017-02-17] MEDS: ZYVOX 600 MG TAB PO SCH ×2 (09:32→21:04)
[2017-02-17] MEDS: MULTIVITAMINS THERAPEUTIC TAB PO SCH (09:32)
[2017-02-17] MEDS: NIFEdipine (XL) 30 MG TAB PO SCH (09:33)
--- NOTE | 2017-02-17 13:06 | CONS ---
Date/Time of Note Date/Time of Note DATE: 02/17/17 TIME: 13:06 Consult Date/Type/Reason Admit Date/Time Feb 10, 2017 at 22:43 Subjective Comfortable Objective minassist ambulation Vital Signs Date Time Temp Pulse Resp B/P Pulse Ox O2 Delivery O2 Flow Rate FiO2 02/17/17 09:30 Nasal Cannula 2.0 02/17/17 08:34 77 18 90 21 02/17/17 08:00 97.9 177/104 Results/Medications Result Diagram: 02/16/17 0657 02/15/17 1210 Results 24 hrs Laboratory Tests Test 02/16/17 17:30 02/16/17 20:05 02/17/17 02:04 02/17/17 08:02 Bedside Glucose 143 201 130 103 Test 02/17/17 12:18 Bedside Glucose 140 Medications Current Medications Ondansetron HCl (Zofran Inj) 4 mg Q4H PRN IV NAUSEA AND/OR VOMITING Last administered on 02/14/17 14:27; Admin Dose 4 MG; Start 02/10/17 at 23:45 IV Flush (NS 10 ml) 10 ml PRN PRN IV FLUSH LINE; Start 02/10/17 at 23:45 Triamcinolone Acetonide (Kenalog 0.1% Oint) 1 applic BID TOP Last administered on 02/14/17 21:33; Admin Dose 1 APPLIC; Start 02/11/17 at 09:00 Furosemide (Lasix) 80 mg DAILY@06 PO Last administered on 02/17/17 06:31; Admin Dose 80 MG; Start 02/11/17 at 06:00 Lactulose (Enulose) 20 gm HS PO Last administered on 02/15/17 20:15; Admin Dose 20 GM; Start 02/11/17 at 21:00 Miscellaneous Information 1 ea NOTE XX ; Start 02/11/17 at 00:00 Glucose (Glutose) 15 gm Q15M PRN PO DECREASED GLUCOSE; Start 02/11/17 at 00:00 Glucose (Glutose) 22.5 gm Q15M PRN PO DECREASED GLUCOSE; Start 02/11/17 at 00:00 Dextrose (D50w Syringe) 25 ml Q15M PRN IV DECREASED GLUCOSE; Start 02/11/17 at 00:00 Dextrose (D50w Syringe) 50 ml Q15M PRN IV DECREASED GLUCOSE; Start 02/11/17 at 00:00 Glucagon (Glucagen) 1 mg Q15M PRN IM DECREASED GLUCOSE; Start 02/11/17 at 00:00 Glucose (Glutose) 15 gm Q15M PRN BUCCAL DECREASED GLUCOSE; Start 02/11/17 at 00: 00 Multivitamins Therapeutic (Theragran) 1 tab DAILY PO Last administered on 09:32; Admin Dose 1 TAB; Start 02/11/17 at 09:00 Nifedipine (Procardia Xl) 30 mg DAILY PO Last administered on 02/17/17 09:33; Admin Dose 30 MG; Start 02/11/17 at 09:00 Nitroglycerin (Nitroglycerin (Sl Tab) 0.4 Mg) 1 tab Q5M PRN SL CHEST PAIN Last administered on 02/16/17 09:53; Admin Dose 1 TAB; Start 02/11/17 at 00:00 Hydroxyzine HCl (Atarax) 10 mg Q6H PRN PO ITCHING; Start 02/11/17 at 00:00 Diagnostic Test (Pha) (Accu-Chek) 1 ea 02 XX Last administered on 02/17/17 02: 21; Admin Dose 1 EA; Start 02/11/17 at 02:00 Insulin Glargine (Lantus) 32 unit DAILY@20 SC Last administered on 02/16/17 20: 14; Admin Dose 32 UNIT; Start 02/11/17 at 20:00 Lactulose (Enulose) 20 gm Q6 PO Last administered on 02/17/17 12:44; Admin Dose 20 GM; Start 02/11/17 at 00:00 Acetaminophen (Tylenol Tab) 500 mg Q6H PRN PO PAIN AND OR ELEVATED TEMP Last administered on 02/16/17 09:21; Admin Dose 500 MG; Start 02/11/17 at 00:00 Atorvastatin Calcium (Lipitor) 20 mg DAILY@21 PO ; Start 02/11/17 at 21:00 Docusate Sodium (Colace) 100 mg BID PRN PO CONSTIPATION; Start 02/11/17 at 00:00 Epoetin Sean (Epogen (Esrd)) 10,000 units MoWeFr@17 SC Last administered on 02/16 17:56; Admin Dose 10,000 UNITS; Start 02/11/17 at 17:00 Linezolid (Zyvox) 600 mg BID PO Last administered on 02/17/17 09:32; Admin Dose 600 MG; Start 02/13/17 at 17:00 Assessment/Plan Chief Complaint/Hosp Course Rehab-Disuse Myopathy; encephalopathy Continue rehabilitation program Cirrhosis secondary to Hepatitis C Acute on Chronic Renal Failure on Hemodialysis Hypertension Diabetes Mellitus type 2 CHF Anemia Sleep apnea Morbid Obesity Problems: CYNTHIA RODRIGUEZ MD Feb 17, 2017 13:06
--- NOTE | 2017-02-17 14:03 | PN ---
DATE: 02/17/2017 SUBJECTIVE DATA: The patient is more responsive. Complains of loose stools x2. No blood. No hemoptysis. No chest pain today. OBJECTIVE DATA: VITAL SIGNS: Temperature 97.9, blood pressure 177/104, O2 sats 90 percent on 2 L. NECK: JVD is not increased. CHEST: Clear anteriorly. HEART: S1, S2 with no definite gallops. No costochondral tenderness. ABDOMEN: Obese, nontender. No hepatosplenomegaly. EXTREMITIES: 1+ edema. Homans negative. IMAGING STUDIES: CAT scan of the chest shows homogeneous nodule of the left upper lobe, query bronchocele, cluster of nodules seen in the medial parenchyma, cirrhosis, portal hypertension evident. Blood glucose levels 131, 103 and 140. IMPRESSION: 1. Atypical chest pain. No evidence of an acute ischemic event. 2. Left upper lobe lung nodule, needs to be followed up with in 6 months. 3. Bvvwv-su-clhmeux renal failure, on hemodialysis. 4. 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 5. Cirrhosis of the liver with portal hypertension, status post hepatitis C, treated. 6. Hepatic encephalopathy, resolved. 7. Hypertension. 8. Diabetes mellitus type 2, well controlled. 9. Congestive heart failure, resolving. PLAN: We will continue hemodialysis per Dr. Castro. Continue PT. Consider low-dose antidepressant. Dictated By: Ivan Brice MD /[email or web address] /Document#: [id number]
[2017-02-17] MEDS ORDERED: HEPARIN 1000 UNITS/ML 10 ML INJ CATHETER ONE (16:30)
[2017-02-17] MEDS ORDERED: PROMETHAZINE/DM (CUP) PO PRN (19:00)
[2017-02-17] MEDS: INSULIN GLARGINE [LANtus] 3 ML PEN SC SCH (21:03)
[2017-02-17] MEDS: SALMETEROL/FLUTICASONE 250/50 INHA INH SCH (21:57)
[2017-02-18 02:00] VITALS: BP 122/63; RESP 18
[2017-02-18] MEDS: ACCUCHECK AT 2AM (Patients on SS coverage) XX SCH (02:00)
[2017-02-18] MEDS: LACTULOSE 30ML CUP PO SCH ×5 (07:04→20:47)
[2017-02-18] MEDS: FUROSEMIDE 40 MG TAB PO SCH (07:04)
[2017-02-18] MEDS: Insulin NOVOLOG SS MILD Algorithm (SS with meals and bedtime) SC SCH ×4 (07:05→21:00)
[2017-02-18 07:31] VITALS: BP 144/62; RESP 18
[2017-02-18] MEDS: ALBUTEROL/IPRATROPIUM (NEB) 3 ML AMP HHN SCH ×4 (08:45→20:25)
[2017-02-18] MEDS: SALMETEROL/FLUTICASONE 250/50 INHA INH SCH ×2 (09:14→20:47)
[2017-02-18] MEDS: MULTIVITAMINS THERAPEUTIC TAB PO SCH (09:14)
[2017-02-18] MEDS: ZYVOX 600 MG TAB PO SCH ×2 (09:14→20:47)
[2017-02-18] MEDS: TRIAMCINOLONE ACET 0.1% 15 GM OINT TOP SCH (09:14)
[2017-02-18] MEDS: NIFEdipine (XL) 30 MG TAB PO SCH (09:15)
[2017-02-18] MEDS ORDERED: TRIAMCINOLONE ACET 0.1% 15 GM OINT TOP PRN (10:00)
--- NOTE | 2017-02-18 10:21 | PN ---
DATE: 02/18/2017 SUBJECTIVE DATA: The patient has continued to have cough, occasionally productive. No hemoptysis. Denies any chest pains. OBJECTIVE DATA: VITAL SIGNS: Temperature 97.8, blood pressure 144/62, O2 sat 95 percent on room air. CHEST: Clinically clear at the bases. HEART: S1, S2 heard. No gallops. EXTREMITIES: Decreased edema. LABORATORY: Still pending. IMPRESSION: 1. Ontnv-[id number]-zmcdlxh renal failure on hemodialysis per Dr. Castro. 2. 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 3. Cirrhosis of liver with portal hypertension, status post hepatitis C, treated. 4. Hepatic encephalopathy, resolved. 5. Hypertension. 6. Diabetes mellitus type 2, well controlled. 7. Congestive heart failure, resolving. 8. Atypical chest pain, resolved. 9. Acute bronchitis. Started on Advair Diskus 250/50 b.i.d. PLAN: We will continue rehab and the patient will receive another CAT scan in about 6 months to assess the stability of the left upper lung nodule. Dictated By: Ivan Brice MD /[email or web address] /Document#: [id number]
[2017-02-18 11:47] LABS: MYELOPEROXIDASE ANTIBODY <1.0 AI; PROTEINASE-3 ANTIBODY <1.0 AI
--- NOTE | 2017-02-18 13:26 | CONS ---
Date/Time of Note Date/Time of Note DATE: 02/18/17 TIME: 13:25 Consult Date/Type/Reason Admit Date/Time Feb 10, 2017 at 22:43 Subjective Comfortable Objective min assist ambulation Vital Signs Date Time Temp Pulse Resp B/P Pulse Ox O2 Delivery O2 Flow Rate FiO2 02/18/17 10:08 Nasal Cannula 2.0 02/18/17 07:31 97.8 80 18 144/62 95 02/17/17 08:34 21 Intake and Output 02/17/17 02/17/17 02/18/17 15:00 23:00 07:00 Intake Total 720 ml 860 ml 350 ml Output Total 3500 ml Balance 720 ml -2640 ml 350 ml Results/Medications Result Diagram: 02/16/17 0657 02/15/17 1210 Results 24 hrs Laboratory Tests Test 02/17/17 17:30 02/17/17 20:57 02/18/17 07:47 02/18/17 12:14 Bedside Glucose 149 125 99 99 Medications Current Medications Ondansetron HCl (Zofran Inj) 4 mg Q4H PRN IV NAUSEA AND/OR VOMITING Last administered on 02/14/17 14:27; Admin Dose 4 MG; Start 02/10/17 at 23:45 IV Flush (NS 10 ml) 10 ml PRN PRN IV FLUSH LINE; Start 02/10/17 at 23:45 Furosemide (Lasix) 80 mg DAILY@06 PO Last administered on 02/18/17 07:04; Admin Dose 80 MG; Start 02/11/17 at 06:00 Lactulose (Enulose) 20 gm HS PO Last administered on 02/15/17 20:15; Admin Dose 20 GM; Start 02/11/17 at 21:00 Miscellaneous Information 1 ea NOTE XX ; Start 02/11/17 at 00:00 Glucose (Glutose) 15 gm Q15M PRN PO DECREASED GLUCOSE; Start 02/11/17 at 00:00 Glucose (Glutose) 22.5 gm Q15M PRN PO DECREASED GLUCOSE; Start 02/11/17 at 00:00 Dextrose (D50w Syringe) 25 ml Q15M PRN IV DECREASED GLUCOSE; Start 02/11/17 at 00:00 Dextrose (D50w Syringe) 50 ml Q15M PRN IV DECREASED GLUCOSE; Start 02/11/17 at 00:00 Glucagon (Glucagen) 1 mg Q15M PRN IM DECREASED GLUCOSE; Start 02/11/17 at 00:00 Glucose (Glutose) 15 gm Q15M PRN BUCCAL DECREASED GLUCOSE; Start 02/11/17 at 00: 00 Multivitamins Therapeutic (Theragran) 1 tab DAILY PO Last administered on 09:14; Admin Dose 1 TAB; Start 02/11/17 at 09:00 Nifedipine (Procardia Xl) 30 mg DAILY PO Last administered on 02/18/17 09:15; Admin Dose 30 MG; Start 02/11/17 at 09:00 Nitroglycerin (Nitroglycerin (Sl Tab) 0.4 Mg) 1 tab Q5M PRN SL CHEST PAIN Last administered on 02/16/17 09:53; Admin Dose 1 TAB; Start 02/11/17 at 00:00 Hydroxyzine HCl (Atarax) 10 mg Q6H PRN PO ITCHING; Start 02/11/17 at 00:00 Diagnostic Test (Pha) (Accu-Chek) 1 ea 02 XX Last administered on 02/17/17 02: 21; Admin Dose 1 EA; Start 02/11/17 at 02:00 Insulin Glargine (Lantus) 32 unit DAILY@20 SC Last administered on 02/17/17 21: 03; Admin Dose 32 UNIT; Start 02/11/17 at 20:00 Lactulose (Enulose) 20 gm Q6 PO Last administered on 02/18/17 12:44; Admin Dose 20 GM; Start 02/11/17 at 00:00 Acetaminophen (Tylenol Tab) 500 mg Q6H PRN PO PAIN AND OR ELEVATED TEMP Last administered on 02/16/17 09:21; Admin Dose 500 MG; Start 02/11/17 at 00:00 Atorvastatin Calcium (Lipitor) 20 mg DAILY@21 PO ; Start 02/11/17 at 21:00 Docusate Sodium (Colace) 100 mg BID PRN PO CONSTIPATION; Start 02/11/17 at 00:00 Epoetin Sean (Epogen (Esrd)) 10,000 units MoWeFr@17 SC Last administered on 02/16 17:56; Admin Dose 10,000 UNITS; Start 02/11/17 at 17:00 Linezolid (Zyvox) 600 mg BID PO Last administered on 02/18/17 09:14; Admin Dose 600 MG; Start 02/13/17 at 17:00 Salmeterol Xinafoate/ Fluticasone (Advair 250/50 Diskus) 1 inh BID INH Last administered on 02/18/17 09:14; Admin Dose 1 INH; Start 02/17/17 at 21:00 Promethazine HCl/ Dextromethorphan (Phenergan-Dm) 10 ml TID PRN PO COUGH Last administered on 02/18/17 09:16; Admin Dose 10 ML; Start 02/17/17 at 19:00 Triamcinolone Acetonide (Kenalog 0.1% Oint) 1 applic BID PRN TOP rash; Start at 10:00 Assessment/Plan Additional Assessment/Plan Rehab-Disuse Myopathy; encephalopathy Interdisciplinary treatment plan as tolerated Cirrhosis secondary to Hepatitis C Acute on Chronic Renal Failure on Hemodialysis Hypertension Diabetes Mellitus type 2 CHF Anemia Sleep apnea Morbid Obesity Problems: Additional Assessment/Plan Rehab-Disuse Myopathy; encephalopathy Activities as tolerated, steady progress Cirrhosis secondary to Hepatitis C Acute on Chronic Renal Failure on Hemodialysis Hypertension Diabetes Mellitus type 2 CHF Anemia Sleep apnea Morbid Obesity CYNTHIA RODRIGUEZ MD Feb 18, 2017 13:26
--- NOTE | 2017-02-18 13:36 | CONS ---
Date/Time of Note Date/Time of Note DATE: 02/18/17 TIME: 13:32 Assessment/Plan Assessment/Plan Chief Complaint/Hosp Course 1. ESRD , now on maintenance hemodialysis TTS . His next dialysis treatment is due tomorrow and is ordered .. I will speak to the dialysis nurse about not removing too much fluid. 2. Cirrhosis of the liver 3. malnourished 4. CHF 5. DM 6. Sleep apnea 7. History of hepatitis C, treated 8. History of hepatic encephalopathy, his ammonia level was slightly elevated at 34 . I told him that he needs to take the lactulose and keep himself from getting constipated. 9. Morbid obesity 10. He still has some intermittent nausea but is not vomiting. 11. Urinary tract infection. He is now growing VRE from his urine. His antibiotics have been adjusted and is now on Linazelide . 12. He continues to have a cough ,but less . 14. continues with cough and SOB , CT of chest shows cardiomegaly and some pulmonary vascular congestion Problems: Consultation Date/Type/Reason Admit Date/Time Feb 10, 2017 at 22:43 24 HR Interval Summary Free Text/Dictation He is up walking with PT . He does get washed out with dialysis treatment . Constitutional: no complaints Exam/Review of Systems Vital Signs Vitals Vital Signs Date Time Temp Pulse Resp B/P Pulse Ox O2 Delivery O2 Flow Rate FiO2 02/18/17 10:08 Nasal Cannula 2.0 02/18/17 07:31 97.8 80 18 144/62 95 02/17/17 08:34 21 Intake and Output 02/17/17 02/17/17 02/18/17 15:00 23:00 07:00 Intake Total 720 ml 860 ml 350 ml Output Total 3500 ml Balance 720 ml -2640 ml 350 ml Exam Constitutional: alert, frail, obese, oriented Respiratory: clear to auscultation, diminished breath sounds Cardiovascular: regular rate and rhythm Musculoskeletal: nl extremities to inspection Results Result Diagram: 02/16/17 0657 02/15/17 1210 Results 24 hrs Laboratory Tests Test 02/17/17 17:30 02/17/17 20:57 02/18/17 07:47 02/18/17 12:14 Bedside Glucose 149 125 99 99 Medications Medications Current Medications Ondansetron HCl (Zofran Inj) 4 mg Q4H PRN IV NAUSEA AND/OR VOMITING Last administered on 02/14/17 14:27; Admin Dose 4 MG; Start 02/10/17 at 23:45 IV Flush (NS 10 ml) 10 ml PRN PRN IV FLUSH LINE; Start 02/10/17 at 23:45 Furosemide (Lasix) 80 mg DAILY@06 PO Last administered on 02/18/17 07:04; Admin Dose 80 MG; Start 02/11/17 at 06:00 Lactulose (Enulose) 20 gm HS PO Last administered on 02/15/17 20:15; Admin Dose 20 GM; Start 02/11/17 at 21:00 Miscellaneous Information 1 ea NOTE XX ; Start 02/11/17 at 00:00 Glucose (Glutose) 15 gm Q15M PRN PO DECREASED GLUCOSE; Start 02/11/17 at 00:00 Glucose (Glutose) 22.5 gm Q15M PRN PO DECREASED GLUCOSE; Start 02/11/17 at 00:00 Dextrose (D50w Syringe) 25 ml Q15M PRN IV DECREASED GLUCOSE; Start 02/11/17 at 00:00 Dextrose (D50w Syringe) 50 ml Q15M PRN IV DECREASED GLUCOSE; Start 02/11/17 at 00:00 Glucagon (Glucagen) 1 mg Q15M PRN IM DECREASED GLUCOSE; Start 02/11/17 at 00:00 Glucose (Glutose) 15 gm Q15M PRN BUCCAL DECREASED GLUCOSE; Start 02/11/17 at 00: 00 Multivitamins Therapeutic (Theragran) 1 tab DAILY PO Last administered on 09:14; Admin Dose 1 TAB; Start 02/11/17 at 09:00 Nifedipine (Procardia Xl) 30 mg DAILY PO Last administered on 02/18/17 09:15; Admin Dose 30 MG; Start 02/11/17 at 09:00 Nitroglycerin (Nitroglycerin (Sl Tab) 0.4 Mg) 1 tab Q5M PRN SL CHEST PAIN Last administered on 02/16/17 09:53; Admin Dose 1 TAB; Start 02/11/17 at 00:00 Hydroxyzine HCl (Atarax) 10 mg Q6H PRN PO ITCHING; Start 02/11/17 at 00:00 Diagnostic Test (Pha) (Accu-Chek) 1 ea 02 XX Last administered on 02/17/17 02: 21; Admin Dose 1 EA; Start 02/11/17 at 02:00 Insulin Glargine (Lantus) 32 unit DAILY@20 SC Last administered on 02/17/17 21: 03; Admin Dose 32 UNIT; Start 02/11/17 at 20:00 Lactulose (Enulose) 20 gm Q6 PO Last administered on 02/18/17 12:44; Admin Dose 20 GM; Start 02/11/17 at 00:00 Acetaminophen (Tylenol Tab) 500 mg Q6H PRN PO PAIN AND OR ELEVATED TEMP Last administered on 02/16/17 09:21; Admin Dose 500 MG; Start 02/11/17 at 00:00 Atorvastatin Calcium (Lipitor) 20 mg DAILY@21 PO ; Start 02/11/17 at 21:00 Docusate Sodium (Colace) 100 mg BID PRN PO CONSTIPATION; Start 02/11/17 at 00:00 Epoetin Sean (Epogen (Esrd)) 10,000 units MoWeFr@17 SC Last administered on 02/16 17:56; Admin Dose 10,000 UNITS; Start 02/11/17 at 17:00 Linezolid (Zyvox) 600 mg BID PO Last administered on 02/18/17 09:14; Admin Dose 600 MG; Start 02/13/17 at 17:00 Salmeterol Xinafoate/ Fluticasone (Advair 250/50 Diskus) 1 inh BID INH Last administered on 02/18/17 09:14; Admin Dose 1 INH; Start 02/17/17 at 21:00 Promethazine HCl/ Dextromethorphan (Phenergan-Dm) 10 ml TID PRN PO COUGH Last administered on 02/18/17 09:16; Admin Dose 10 ML; Start 02/17/17 at 19:00 Triamcinolone Acetonide (Kenalog 0.1% Oint) 1 applic BID PRN TOP rash; Start at 10:00 ANA MELENDEZ MD Feb 18, 2017 13:36
[2017-02-18] MEDS: EPOETIN 10000 UNITS/1 ML INJ (ESRD) SC SCH (17:53)
[2017-02-18 20:00] VITALS: BP 152/65; RESP 19
[2017-02-18] MEDS: INSULIN GLARGINE [LANtus] 3 ML PEN SC SCH (21:04)
--- NOTE | 2017-02-18 21:33 | PN ---
DATE: 02/18/2017 PSYCHOLOGY - INDIVIDUAL SESSION - 25814: This is a followup on a patient that was seen last week. The patient was seen in bed. The patient is much more alert than he was last week. The patient is still feeling lethargic and sleepy, but is much more able to start working on his overall medical problems. The patient's was present during the session with the patient's permission, and she did say that she saw him as improving. The patient's mood did appear to be improving because his overall physical condition was improving. I did work with the patient and his in regard to trying to help them see what was going on emotionally surrounding all his medical problems. Dictated By: Lino Willis, PHD /[email or web address] /Document#: [id number]
[2017-02-19] VITALS (10 sets, daily range): BP systolic 136–173; BP diastolic 63–77; PULSE 82–92; RESP 18
[2017-02-19] MEDS: ACCUCHECK AT 2AM (Patients on SS coverage) XX SCH (02:00)
[2017-02-19] MEDS: LACTULOSE 30ML CUP PO SCH ×5 (06:05→21:00)
[2017-02-19] MEDS: FUROSEMIDE 40 MG TAB PO SCH (06:06)
[2017-02-19] MEDS: Insulin NOVOLOG SS MILD Algorithm (SS with meals and bedtime) SC SCH ×4 (07:05→22:03)
[2017-02-19] MEDS: ALBUTEROL/IPRATROPIUM (NEB) 3 ML AMP HHN SCH ×4 (08:17→21:00)
[2017-02-19] MEDS: SALMETEROL/FLUTICASONE 250/50 INHA INH SCH ×2 (09:10→21:54)
[2017-02-19] MEDS: MULTIVITAMINS THERAPEUTIC TAB PO SCH (09:10)
[2017-02-19] MEDS: NIFEdipine (XL) 30 MG TAB PO SCH (09:11)
[2017-02-19] MEDS: ZYVOX 600 MG TAB PO SCH ×2 (09:11→21:53)
--- NOTE | 2017-02-19 10:37 | CONS ---
Date/Time of Note Date/Time of Note DATE: 02/19/17 TIME: 10:37 Consult Date/Type/Reason Admit Date/Time Feb 10, 2017 at 22:43 Subjective No new complaints Objective Lungs clear abdomen soft Min assist ambulation Vital Signs Date Time Temp Pulse Resp B/P Pulse Ox O2 Delivery O2 Flow Rate FiO2 02/19/17 07:30 98.3 82 18 143/71 96 02/19/17 05:15 2.0 02/18/17 20:25 21 02/18/17 20:05 Nasal Cannula Intake and Output 02/18/17 02/18/17 02/19/17 14:59 22:59 06:59 Intake Total 720 ml 360 ml 600 ml Balance 720 ml 360 ml 600 ml Results/Medications Result Diagram: 02/16/17 0657 02/15/17 1210 Results 24 hrs Laboratory Tests Test 02/18/17 12:14 02/18/17 17:27 02/18/17 20:45 02/19/17 08:46 Bedside Glucose 99 100 123 133 Medications Current Medications Ondansetron HCl (Zofran Inj) 4 mg Q4H PRN IV NAUSEA AND/OR VOMITING Last administered on 02/14/17 14:27; Admin Dose 4 MG; Start 02/10/17 at 23:45 IV Flush (NS 10 ml) 10 ml PRN PRN IV FLUSH LINE; Start 02/10/17 at 23:45 Furosemide (Lasix) 80 mg DAILY@06 PO Last administered on 02/19/17 06:06; Admin Dose 80 MG; Start 02/11/17 at 06:00 Lactulose (Enulose) 20 gm HS PO Last administered on 02/18/17 20:47; Admin Dose 20 GM; Start 02/11/17 at 21:00 Miscellaneous Information 1 ea NOTE XX ; Start 02/11/17 at 00:00 Glucose (Glutose) 15 gm Q15M PRN PO DECREASED GLUCOSE; Start 02/11/17 at 00:00 Glucose (Glutose) 22.5 gm Q15M PRN PO DECREASED GLUCOSE; Start 02/11/17 at 00:00 Dextrose (D50w Syringe) 25 ml Q15M PRN IV DECREASED GLUCOSE; Start 02/11/17 at 00:00 Dextrose (D50w Syringe) 50 ml Q15M PRN IV DECREASED GLUCOSE; Start 02/11/17 at 00:00 Glucagon (Glucagen) 1 mg Q15M PRN IM DECREASED GLUCOSE; Start 02/11/17 at 00:00 Glucose (Glutose) 15 gm Q15M PRN BUCCAL DECREASED GLUCOSE; Start 02/11/17 at 00: 00 Multivitamins Therapeutic (Theragran) 1 tab DAILY PO Last administered on 09:10; Admin Dose 1 TAB; Start 02/11/17 at 09:00 Nifedipine (Procardia Xl) 30 mg DAILY PO Last administered on 02/19/17 09:11; Admin Dose 30 MG; Start 02/11/17 at 09:00 Nitroglycerin (Nitroglycerin (Sl Tab) 0.4 Mg) 1 tab Q5M PRN SL CHEST PAIN Last administered on 02/16/17 09:53; Admin Dose 1 TAB; Start 02/11/17 at 00:00 Hydroxyzine HCl (Atarax) 10 mg Q6H PRN PO ITCHING; Start 02/11/17 at 00:00 Diagnostic Test (Pha) (Accu-Chek) 1 ea 02 XX Last administered on 02/17/17 02: 21; Admin Dose 1 EA; Start 02/11/17 at 02:00 Insulin Glargine (Lantus) 32 unit DAILY@20 SC Last administered on 02/18/17 21: 04; Admin Dose 32 UNIT; Start 02/11/17 at 20:00 Lactulose (Enulose) 20 gm Q6 PO Last administered on 02/19/17 06:05; Admin Dose 20 GM; Start 02/11/17 at 00:00 Acetaminophen (Tylenol Tab) 500 mg Q6H PRN PO PAIN AND OR ELEVATED TEMP Last administered on 02/16/17 09:21; Admin Dose 500 MG; Start 02/11/17 at 00:00 Atorvastatin Calcium (Lipitor) 20 mg DAILY@21 PO ; Start 02/11/17 at 21:00 Docusate Sodium (Colace) 100 mg BID PRN PO CONSTIPATION; Start 02/11/17 at 00:00 Epoetin Sean (Epogen (Esrd)) 10,000 units MoWeFr@17 SC Last administered on 02/18 17:53; Admin Dose 10,000 UNITS; Start 02/11/17 at 17:00 Linezolid (Zyvox) 600 mg BID PO Last administered on 02/19/17 09:11; Admin Dose 600 MG; Start 02/13/17 at 17:00 Salmeterol Xinafoate/ Fluticasone (Advair 250/50 Diskus) 1 inh BID INH Last administered on 02/19/17 09:10; Admin Dose 1 INH; Start 02/17/17 at 21:00 Promethazine HCl/ Dextromethorphan (Phenergan-Dm) 10 ml TID PRN PO COUGH Last administered on 02/18/17 09:16; Admin Dose 10 ML; Start 02/17/17 at 19:00 Triamcinolone Acetonide (Kenalog 0.1% Oint) 1 applic BID PRN TOP rash; Start at 10:00 Assessment/Plan Chief Complaint/Hosp Course Rehab-Disuse Myopathy; encephalopathy Continue rehabilitation program Cirrhosis secondary to Hepatitis C Acute on Chronic Renal Failure on Hemodialysis Hypertension Diabetes Mellitus type 2 CHF Anemia Sleep apnea Morbid Obesity Problems: CYNTHIA RODRIGUEZ MD Feb 19, 2017 10:37
--- NOTE | 2017-02-19 20:39 | CONS ---
Date/Time of Note Date/Time of Note DATE: 02/19/17 TIME: 20:33 Assessment/Plan Assessment/Plan Chief Complaint/Hosp Course 1. ESRD , now on maintenance hemodialysis TTS . His next dialysis treatment is today and is ordered .. I have ordered that the amount of fluid removed to be limited to 2500 cc because the patient c/o severe lethargy after dialysis . 2. Cirrhosis of the liver 3. malnourished 4. CHF 5. DM 6. Sleep apnea 7. History of hepatitis C, treated 8. History of hepatic encephalopathy, his last serum ammonia level was slightly elevated at 34 . I told him that he needs to take the lactulose and keep himself from getting constipated. 9. Morbid obesity 10. He still has some intermittent nausea but is not vomiting. 11. Urinary tract infection. He is now growing VRE from his urine. His antibiotics have been adjusted and is now on Linazelide . 12. He continues to have a cough ,but less .CT of chest shows cardiomegaly and some pulmonary vascular congestion Problems: Consultation Date/Type/Reason Admit Date/Time Feb 10, 2017 at 22:43 24 HR Interval Summary Free Text/Dictation He is in bed . His and family is in the room with him . He says that he walked earlier today . Constitutional: no complaints Exam/Review of Systems Vital Signs Vitals Vital Signs Date Time Temp Pulse Resp B/P Pulse Ox O2 Delivery O2 Flow Rate FiO2 02/19/17 19:33 Nasal Cannula 2.0 02/19/17 19:00 92 02/19/17 19:00 19 02/19/17 07:30 98.3 143/71 96 02/18/17 20:25 21 Intake and Output 02/18/17 02/18/17 02/19/17 15:00 23:00 07:00 Intake Total 720 ml 360 ml 600 ml Balance 720 ml 360 ml 600 ml Exam Constitutional: alert, frail, obese, oriented Head: atraumatic, normocephalic Eyes: EOMI, PERRL, nl conjunctiva, nl lids, nl sclera ENMT: nl external ears & nose, nl lips & teeth, nl nasal mucosa & septum Respiratory: clear to auscultation, diminished breath sounds Cardiovascular: regular rate and rhythm Gastrointestinal: non-tender, soft Musculoskeletal: nl extremities to inspection Results Result Diagram: 02/16/17 0657 02/15/17 1210 Results 24 hrs Laboratory Tests Test 02/18/17 20:45 02/19/17 08:46 02/19/17 12:20 02/19/17 17:37 Bedside Glucose 123 133 179 146 Medications Medications Current Medications Ondansetron HCl (Zofran Inj) 4 mg Q4H PRN IV NAUSEA AND/OR VOMITING Last administered on 02/14/17 14:27; Admin Dose 4 MG; Start 02/10/17 at 23:45 IV Flush (NS 10 ml) 10 ml PRN PRN IV FLUSH LINE; Start 02/10/17 at 23:45 Furosemide (Lasix) 80 mg DAILY@06 PO Last administered on 02/19/17 06:06; Admin Dose 80 MG; Start 02/11/17 at 06:00 Lactulose (Enulose) 20 gm HS PO Last administered on 02/18/17 20:47; Admin Dose 20 GM; Start 02/11/17 at 21:00 Miscellaneous Information 1 ea NOTE XX ; Start 02/11/17 at 00:00 Glucose (Glutose) 15 gm Q15M PRN PO DECREASED GLUCOSE; Start 02/11/17 at 00:00 Glucose (Glutose) 22.5 gm Q15M PRN PO DECREASED GLUCOSE; Start 02/11/17 at 00:00 Dextrose (D50w Syringe) 25 ml Q15M PRN IV DECREASED GLUCOSE; Start 02/11/17 at 00:00 Dextrose (D50w Syringe) 50 ml Q15M PRN IV DECREASED GLUCOSE; Start 02/11/17 at 00:00 Glucagon (Glucagen) 1 mg Q15M PRN IM DECREASED GLUCOSE; Start 02/11/17 at 00:00 Glucose (Glutose) 15 gm Q15M PRN BUCCAL DECREASED GLUCOSE; Start 02/11/17 at 00: 00 Multivitamins Therapeutic (Theragran) 1 tab DAILY PO Last administered on 09:10; Admin Dose 1 TAB; Start 02/11/17 at 09:00 Nifedipine (Procardia Xl) 30 mg DAILY PO Last administered on 02/19/17 09:11; Admin Dose 30 MG; Start 02/11/17 at 09:00 Nitroglycerin (Nitroglycerin (Sl Tab) 0.4 Mg) 1 tab Q5M PRN SL CHEST PAIN Last administered on 02/16/17 09:53; Admin Dose 1 TAB; Start 02/11/17 at 00:00 Hydroxyzine HCl (Atarax) 10 mg Q6H PRN PO ITCHING; Start 02/11/17 at 00:00 Diagnostic Test (Pha) (Accu-Chek) 1 ea 02 XX Last administered on 02/17/17 02: 21; Admin Dose 1 EA; Start 02/11/17 at 02:00 Insulin Glargine (Lantus) 32 unit DAILY@20 SC Last administered on 02/18/17 21: 04; Admin Dose 32 UNIT; Start 02/11/17 at 20:00 Lactulose (Enulose) 20 gm Q6 PO Last administered on 02/19/17 12:41; Admin Dose 20 GM; Start 02/11/17 at 00:00 Acetaminophen (Tylenol Tab) 500 mg Q6H PRN PO PAIN AND OR ELEVATED TEMP Last administered on 02/16/17 09:21; Admin Dose 500 MG; Start 02/11/17 at 00:00 Atorvastatin Calcium (Lipitor) 20 mg DAILY@21 PO ; Start 02/11/17 at 21:00 Docusate Sodium (Colace) 100 mg BID PRN PO CONSTIPATION; Start 02/11/17 at 00:00 Epoetin Sean (Epogen (Esrd)) 10,000 units MoWeFr@17 SC Last administered on 02/18 17:53; Admin Dose 10,000 UNITS; Start 02/11/17 at 17:00 Linezolid (Zyvox) 600 mg BID PO Last administered on 02/19/17 09:11; Admin Dose 600 MG; Start 02/13/17 at 17:00 Salmeterol Xinafoate/ Fluticasone (Advair 250/50 Diskus) 1 inh BID INH Last administered on 02/19/17 09:10; Admin Dose 1 INH; Start 02/17/17 at 21:00 Promethazine HCl/ Dextromethorphan (Phenergan-Dm) 10 ml TID PRN PO COUGH Last administered on 02/18/17 09:16; Admin Dose 10 ML; Start 02/17/17 at 19:00 Triamcinolone Acetonide (Kenalog 0.1% Oint) 1 applic BID PRN TOP rash; Start at 10:00 ANA MELENDEZ MD Feb 19, 2017 20:39
[2017-02-19] MEDS: INSULIN GLARGINE [LANtus] 3 ML PEN SC SCH (22:02)
[2017-02-20 02:00] VITALS: BP 134/73; RESP 18
[2017-02-20] MEDS: ACCUCHECK AT 2AM (Patients on SS coverage) XX SCH (02:00)
[2017-02-20] MEDS: FUROSEMIDE 40 MG TAB PO SCH (06:34)
--- NOTE | 2017-02-20 06:34 | PN ---
DATE: 02/19/2017 SUBJECTIVE DATA: The patient is awake, alert. P.o. intake is still very poor. No complaints of chest pain. Had some epistaxis this morning, which has resolved on its own. OBJECTIVE DATA: VITAL SIGNS: Temperature 98.3 degrees, blood pressure 143/71, O2 saturation 96 percent on room air. HEENT: Head normocephalic. No pallor, cyanosis, or icterus. CHEST: Clear. HEART: S1, S2. No murmurs, rubs, or gallops. EXTREMITIES: Trace edema. Homans negative. LABORATORY AND DIAGNOSTIC DATA: Blood glucose levels normal glycemic range. IMPRESSION: 1. Acute on chronic renal failure on hemodialysis. 2. 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 3. Cirrhosis of liver with portal hypertension status post hepatitis C treatment. 4. Hepatic encephalopathy, resolved. 5. Recent epistaxis. 6. Hypertension. 7. Diabetes mellitus, type 2, well-controlled. 8. Resolved congestive heart failure. 9. Acute asthmatic bronchitis, improved on Diskus Advair. PLAN: Will continue rehab and further recommendations per Dr. Castro. Dictated By: Ivan Brice MD /[email or web address]/clp /Document#: [id number]
[2017-02-20] MEDS: LACTULOSE 30ML CUP PO SCH ×6 (06:35→21:00)
[2017-02-20 08:02] VITALS: BP 164/73; RESP 18
[2017-02-20] MEDS: Insulin NOVOLOG SS MILD Algorithm (SS with meals and bedtime) SC SCH ×4 (08:44→21:00)
[2017-02-20] MEDS: ZYVOX 600 MG TAB PO SCH ×2 (08:45→21:03)
[2017-02-20] MEDS: MULTIVITAMINS THERAPEUTIC TAB PO SCH (08:45)
[2017-02-20] MEDS: NIFEdipine (XL) 30 MG TAB PO SCH (08:47)
[2017-02-20] MEDS: SALMETEROL/FLUTICASONE 250/50 INHA INH SCH ×2 (08:50→21:09)
--- NOTE | 2017-02-20 10:36 | CONS ---
Date/Time of Note Date/Time of Note DATE: 02/20/17 TIME: 10:32 Assessment/Plan Assessment/Plan Chief Complaint/Hosp Course 1. ESRD , now on maintenance hemodialysis TTS . His next dialysis treatment is due tomorrow and is ordered.. I have ordered that the amount of fluid removed to be limited to 2500 cc because the patient c/o severe lethargy after dialysis . 2. Cirrhosis of the liver 3. malnourished 4. CHF 5. DM 6. Sleep apnea 7. History of hepatitis C, treated 8. History of hepatic encephalopathy, his last serum ammonia level was slightly elevated at 34 . I told him that he needs to take the lactulose and keep himself from getting constipated. He continues to be very lethargic , etiology of which is not entirely clear. 9. Morbid obesity 10. He still has some intermittent nausea but is not vomiting. 11. Urinary tract infection. He is now growing VRE from his urine. His antibiotics have been adjusted and is now on Linazelide . 12. He continues to have a cough ,but less .CT of chest shows cardiomegaly and some pulmonary vascular congestion Problems: Consultation Date/Type/Reason Admit Date/Time Feb 10, 2017 at 22:43 24 HR Interval Summary Free Text/Dictation He is sleeping. He arouses and has no new complaints. He had hemodialysis yesterday. Constitutional: no complaints Exam/Review of Systems Vital Signs Vitals Vital Signs Date Time Temp Pulse Resp B/P Pulse Ox O2 Delivery O2 Flow Rate FiO2 02/20/17 08:02 98.4 80 18 164/73 96 02/19/17 19:33 Nasal Cannula 2.0 02/18/17 20:25 21 Intake and Output 02/19/17 02/19/17 02/20/17 15:00 23:00 07:00 Intake Total 920 ml 810 ml Output Total 3000 ml Balance -2080 ml 810 ml Exam Constitutional: alert, frail, obese, oriented Respiratory: clear to auscultation, diminished breath sounds Cardiovascular: regular rate and rhythm Gastrointestinal: soft Musculoskeletal: nl extremities to inspection Results Result Diagram: 02/16/17 0657 Results 24 hrs Laboratory Tests Test 02/19/17 12:20 02/19/17 17:37 02/19/17 21:56 02/20/17 02:22 Bedside Glucose 179 146 219 131 Test 02/20/17 08:07 Bedside Glucose 149 Medications Medications Current Medications Ondansetron HCl (Zofran Inj) 4 mg Q4H PRN IV NAUSEA AND/OR VOMITING Last administered on 02/14/17 14:27; Admin Dose 4 MG; Start 02/10/17 at 23:45 IV Flush (NS 10 ml) 10 ml PRN PRN IV FLUSH LINE; Start 02/10/17 at 23:45 Furosemide (Lasix) 80 mg DAILY@06 PO Last administered on 02/20/17 06:34; Admin Dose 80 MG; Start 02/11/17 at 06:00 Lactulose (Enulose) 20 gm HS PO Last administered on 02/18/17 20:47; Admin Dose 20 GM; Start 02/11/17 at 21:00 Miscellaneous Information 1 ea NOTE XX ; Start 02/11/17 at 00:00 Glucose (Glutose) 15 gm Q15M PRN PO DECREASED GLUCOSE; Start 02/11/17 at 00:00 Glucose (Glutose) 22.5 gm Q15M PRN PO DECREASED GLUCOSE; Start 02/11/17 at 00:00 Dextrose (D50w Syringe) 25 ml Q15M PRN IV DECREASED GLUCOSE; Start 02/11/17 at 00:00 Dextrose (D50w Syringe) 50 ml Q15M PRN IV DECREASED GLUCOSE; Start 02/11/17 at 00:00 Glucagon (Glucagen) 1 mg Q15M PRN IM DECREASED GLUCOSE; Start 02/11/17 at 00:00 Glucose (Glutose) 15 gm Q15M PRN BUCCAL DECREASED GLUCOSE; Start 02/11/17 at 00: 00 Multivitamins Therapeutic (Theragran) 1 tab DAILY PO Last administered on 08:45; Admin Dose 1 TAB; Start 02/11/17 at 09:00 Nifedipine (Procardia Xl) 30 mg DAILY PO Last administered on 02/20/17 08:47; Admin Dose 30 MG; Start 02/11/17 at 09:00 Nitroglycerin (Nitroglycerin (Sl Tab) 0.4 Mg) 1 tab Q5M PRN SL CHEST PAIN Last administered on 02/16/17 09:53; Admin Dose 1 TAB; Start 02/11/17 at 00:00 Hydroxyzine HCl (Atarax) 10 mg Q6H PRN PO ITCHING; Start 02/11/17 at 00:00 Diagnostic Test (Pha) (Accu-Chek) 1 ea 02 XX Last administered on 02/20/17 02: 00; Admin Dose 1 EA; Start 02/11/17 at 02:00 Insulin Glargine (Lantus) 32 unit DAILY@20 SC Last administered on 02/19/17 22 :02; Admin Dose 32 UNIT; Start 02/11/17 at 20:00 Lactulose (Enulose) 20 gm Q6 PO Last administered on 02/20/17 06:35; Admin Dose 20 GM; Start 02/11/17 at 00:00 Acetaminophen (Tylenol Tab) 500 mg Q6H PRN PO PAIN AND OR ELEVATED TEMP Last administered on 02/16/17 09:21; Admin Dose 500 MG; Start 02/11/17 at 00:00 Atorvastatin Calcium (Lipitor) 20 mg DAILY@21 PO ; Start 02/11/17 at 21:00 Docusate Sodium (Colace) 100 mg BID PRN PO CONSTIPATION; Start 02/11/17 at 00:00 Epoetin Sean (Epogen (Esrd)) 10,000 units MoWeFr@17 SC Last administered on 02/18 17:53; Admin Dose 10,000 UNITS; Start 02/11/17 at 17:00 Linezolid (Zyvox) 600 mg BID PO Last administered on 02/20/17 08:45; Admin Dose 600 MG; Start 02/13/17 at 17:00 Salmeterol Xinafoate/ Fluticasone (Advair 250/50 Diskus) 1 inh BID INH Last administered on 02/20/17 08:50; Admin Dose 1 INH; Start 02/17/17 at 21:00 Promethazine HCl/ Dextromethorphan (Phenergan-Dm) 10 ml TID PRN PO COUGH Last administered on 02/18/17 09:16; Admin Dose 10 ML; Start 02/17/17 at 19:00 Triamcinolone Acetonide (Kenalog 0.1% Oint) 1 applic BID PRN TOP rash; Start at 10:00 ANA MELENDEZ MD Feb 20, 2017 10:35
[2017-02-20] MEDS: ALBUTEROL/IPRATROPIUM (NEB) 3 ML AMP HHN SCH ×4 (12:16→20:17)
[2017-02-20] MEDS: MEGESTROL (40 MG/ML) 10ML CUP PO SCH ×2 (15:07→21:03)
--- NOTE | 2017-02-20 15:07 | CONS ---
Date/Time of Note Date/Time of Note DATE: 02/20/17 TIME: 15:06 Consult Date/Type/Reason Admit Date/Time Feb 10, 2017 at 22:43 Subjective Patient at times seems quite lethargic however has been able to get up with therapy and ambulated a min assist level Objective Lungs clear abdomen soft Vital Signs Date Time Temp Pulse Resp B/P Pulse Ox O2 Delivery O2 Flow Rate FiO2 02/20/17 08:02 98.4 80 18 164/73 96 02/20/17 08:00 Nasal Cannula 2.0 02/18/17 20:25 21 Intake and Output 02/19/17 02/19/17 02/20/17 15:00 23:00 07:00 Intake Total 920 ml 810 ml Output Total 3000 ml Balance -2080 ml 810 ml Results/Medications Result Diagram: 02/16/17 0657 Results 24 hrs Laboratory Tests Test 02/19/17 17:37 02/19/17 21:56 02/20/17 02:22 02/20/17 08:07 Bedside Glucose 146 219 131 149 Test 02/20/17 12:11 Bedside Glucose 175 Medications Current Medications Ondansetron HCl (Zofran Inj) 4 mg Q4H PRN IV NAUSEA AND/OR VOMITING Last administered on 02/14/17 14:27; Admin Dose 4 MG; Start 02/10/17 at 23:45 IV Flush (NS 10 ml) 10 ml PRN PRN IV FLUSH LINE; Start 02/10/17 at 23:45 Furosemide (Lasix) 80 mg DAILY@06 PO Last administered on 02/20/17 06:34; Admin Dose 80 MG; Start 02/11/17 at 06:00 Lactulose (Enulose) 20 gm HS PO Last administered on 02/18/17 20:47; Admin Dose 20 GM; Start 02/11/17 at 21:00 Miscellaneous Information 1 ea NOTE XX ; Start 02/11/17 at 00:00 Glucose (Glutose) 15 gm Q15M PRN PO DECREASED GLUCOSE; Start 02/11/17 at 00:00 Glucose (Glutose) 22.5 gm Q15M PRN PO DECREASED GLUCOSE; Start 02/11/17 at 00:00 Dextrose (D50w Syringe) 25 ml Q15M PRN IV DECREASED GLUCOSE; Start 02/11/17 at 00:00 Dextrose (D50w Syringe) 50 ml Q15M PRN IV DECREASED GLUCOSE; Start 02/11/17 at 00:00 Glucagon (Glucagen) 1 mg Q15M PRN IM DECREASED GLUCOSE; Start 02/11/17 at 00:00 Glucose (Glutose) 15 gm Q15M PRN BUCCAL DECREASED GLUCOSE; Start 02/11/17 at 00: 00 Multivitamins Therapeutic (Theragran) 1 tab DAILY PO Last administered on 08:45; Admin Dose 1 TAB; Start 02/11/17 at 09:00 Nifedipine (Procardia Xl) 30 mg DAILY PO Last administered on 02/20/17 08:47; Admin Dose 30 MG; Start 02/11/17 at 09:00 Nitroglycerin (Nitroglycerin (Sl Tab) 0.4 Mg) 1 tab Q5M PRN SL CHEST PAIN Last administered on 02/16/17 09:53; Admin Dose 1 TAB; Start 02/11/17 at 00:00 Hydroxyzine HCl (Atarax) 10 mg Q6H PRN PO ITCHING; Start 02/11/17 at 00:00 Diagnostic Test (Pha) (Accu-Chek) 1 ea 02 XX Last administered on 02/20/17 02: 00; Admin Dose 1 EA; Start 02/11/17 at 02:00 Insulin Glargine (Lantus) 32 unit DAILY@20 SC Last administered on 02/19/17 22 :02; Admin Dose 32 UNIT; Start 02/11/17 at 20:00 Lactulose (Enulose) 20 gm Q6 PO Last administered on 02/20/17 12:17; Admin Dose 20 GM; Start 02/11/17 at 00:00 Acetaminophen (Tylenol Tab) 500 mg Q6H PRN PO PAIN AND OR ELEVATED TEMP Last administered on 02/16/17 09:21; Admin Dose 500 MG; Start 02/11/17 at 00:00 Atorvastatin Calcium (Lipitor) 20 mg DAILY@21 PO ; Start 02/11/17 at 21:00 Docusate Sodium (Colace) 100 mg BID PRN PO CONSTIPATION; Start 02/11/17 at 00:00 Epoetin Sean (Epogen (Esrd)) 10,000 units MoWeFr@17 SC Last administered on 02/18 17:53; Admin Dose 10,000 UNITS; Start 02/11/17 at 17:00 Linezolid (Zyvox) 600 mg BID PO Last administered on 02/20/17 08:45; Admin Dose 600 MG; Start 02/13/17 at 17:00 Salmeterol Xinafoate/ Fluticasone (Advair 250/50 Diskus) 1 inh BID INH Last administered on 02/20/17 08:50; Admin Dose 1 INH; Start 02/17/17 at 21:00 Promethazine HCl/ Dextromethorphan (Phenergan-Dm) 10 ml TID PRN PO COUGH Last administered on 02/18/17 09:16; Admin Dose 10 ML; Start 02/17/17 at 19:00 Triamcinolone Acetonide (Kenalog 0.1% Oint) 1 applic BID PRN TOP rash; Start at 10:00 Megestrol Acetate (Megace Susp) 400 mg BID PO ; Start 02/20/17 at 14:00 Assessment/Plan Chief Complaint/Hosp Course Rehab-Disuse Myopathy; encephalopathy Increase activities as tolerated Cirrhosis secondary to Hepatitis C Acute on Chronic Renal Failure on Hemodialysis Hypertension Diabetes Mellitus type 2 CHF Anemia Sleep apnea Morbid Obesity Problems: CYNTHIA RODRIGUEZ MD Feb 20, 2017 15:07
[2017-02-20 16:37] LABS: CREATININE 8.1 mg/dl (0.61-1.24); POTASSIUM 4.9 mmol/L (3.5-5.1)
[2017-02-20] MEDS: EPOETIN 10000 UNITS/1 ML INJ (ESRD) SC SCH (17:30)
[2017-02-20] MEDS: INSULIN GLARGINE [LANtus] 3 ML PEN SC SCH (21:07)
--- NOTE | 2017-02-20 21:38 | PN ---
DATE: 02/20/2017 SUBJECTIVE: The complains of occasional epistaxis, poor appetite. Does not complain of any dysphagia, no chest pain or shortness of breath. Had dialysis yesterday. Having frequent loose stools. PHYSICAL EXAMINATION: GENERAL: The patient is awake, alert, presently comfortable. VITAL SIGNS: Temperature 98.4, blood pressure 164/73, O2 sat 96 percent. CHEST: Clinically clear. HEART: S1, S2. No murmurs, rubs, or gallops. ABDOMEN: Soft, nontender. No hepatosplenomegaly. EXTREMITIES: No edema. IMPRESSION: 1. Anorexia, probably combination of renal failure with uremia, plus antibiotic side effect. 2. Acute on chronic renal failure. The patient has end-stage renal disease on hemodialysis. 3. Cirrhosis with portal hypertension. 4. Malnourishment. 5. Congestive heart failure, resolved. 6. Diabetes mellitus type 2. 7. Hepatic encephalopathy, resolved. 8. Obstructive sleep apnea. 9. Urinary tract infection with vancomycin-resistant enterococci. PLAN: Would start the patient on Megace. Check stool for C diff. Check also his electrolytes today. Consider low dose antidepressant after discussion with Dr. Castro. Dictated By: Ivan Brice MD /[email or web address] /Document#: [id number]
[2017-02-21 02:00] VITALS: BP 158/68; RESP 18
[2017-02-21] MEDS: ACCUCHECK AT 2AM (Patients on SS coverage) XX SCH (02:00)
[2017-02-21] MEDS: LACTULOSE 30ML CUP PO SCH ×5 (05:22→20:27)
[2017-02-21] MEDS: ONDANSETRON 4 MG INJ IV PRN ×2 (05:22→18:54)
[2017-02-21] MEDS: FUROSEMIDE 40 MG TAB PO SCH (05:26)
[2017-02-21 07:30] VITALS: BP 128/66; RESP 20
[2017-02-21] MEDS: Insulin NOVOLOG SS MILD Algorithm (SS with meals and bedtime) SC SCH ×4 (07:56→20:27)
[2017-02-21] MEDS: ALBUTEROL/IPRATROPIUM (NEB) 3 ML AMP HHN SCH ×4 (08:23→20:11)
[2017-02-21] MEDS: MULTIVITAMINS THERAPEUTIC TAB PO SCH (08:40)
[2017-02-21] MEDS: NIFEdipine (XL) 30 MG TAB PO SCH (08:40)
[2017-02-21] MEDS: SALMETEROL/FLUTICASONE 250/50 INHA INH SCH ×2 (08:40→20:27)
[2017-02-21] MEDS: ZYVOX 600 MG TAB PO SCH (08:41)
[2017-02-21] MEDS: MEGESTROL (40 MG/ML) 10ML CUP PO SCH ×2 (08:45→20:27)
[2017-02-21 09:02] LABS: ABNORMAL IP MESSAGE 1; HEMATOCRIT 28.2 % (42.0-52.0); HEMOGLOBIN 8.7 g/dl (14.0-18.0); MEAN CORPUSCULAR HEMOGLOBIN 25.7 pg (29.0-33.0); MEAN CORPUSCULAR HGB CONC 30.9 g/dl (32.0-37.0); MEAN CORPUSCULAR VOLUME 83.2 fl (82.0-101.0); MEAN PLATELET VOLUME 10.4 fl (7.4-10.4); PLATELET COUNT 57 10^3/UL (140-415); POSITIVE DIFF @See below; RED BLOOD COUNT 3.39 10^6/ul (4.70-6.10); RED CELL DISTRIBUTION WIDTH 19.1 % (11.5-14.5); WHITE BLOOD COUNT 4.2 10^3/ul (4.8-10.8)
--- NOTE | 2017-02-21 09:17 | CONS ---
Date/Time of Note Date/Time of Note DATE: 02/21/17 TIME: 09:11 Assessment/Plan Assessment/Plan Additional Assessment/Plan Assessment/Plan Chief Complaint/Hosp Course 1. ESRD , now on maintenance hemodialysis TTS . His next dialysis treatment is due tomorrow and is ordered.. I have ordered that the amount of fluid removed to be limited to 2500 cc because the patient c/o severe lethargy after dialysis . 2. Cirrhosis of the liver 3. malnourished 4. CHF 5. DM 6. Sleep apnea 7. History of hepatitis C, treated 8. History of hepatic encephalopathy, his last serum ammonia level was slightly elevated at 34 . I told him that he needs to take the lactulose and keep himself from getting constipated. He continues to be very lethargic , etiology of which is not entirely clear. 9. Morbid obesity 10. He still has some intermittent nausea but is not vomiting. 11. Urinary tract infection. He is now growing VRE from his urine. His antibiotics have been adjusted and is now on Linazelide . 12. He continues to have a cough ,but less .CT of chest shows cardiomegaly and some pulmonary vascular congestion 13. ?melena 14. cramps in extremitities Plan: 1. dialysis without heparin 2. check stool ob 3. quinine 4. f/up labs Consultation Date/Type/Reason Admit Date/Time Feb 10, 2017 at 22:43 Initial Consult Date Type of Consultation: Nephrology 24 HR Interval Summary Free Text/Dictation Patient with cramps in extremities and had dark black stools. He is not sob. He has minimal appetite. Detailed Summary Eyes: no complaints Cardiovascular: no complaints Gastrointestinal: passing stool (dark) Neurologic: no complaints Exam/Review of Systems Vital Signs Vitals Vital Signs Date Time Temp Pulse Resp B/P Pulse Ox O2 Delivery O2 Flow Rate FiO2 02/21/17 08:23 94 20 95 21 02/21/17 07:30 97.8 128/66 02/20/17 20:00 Nasal Cannula 2.0 Intake and Output 02/20/17 02/20/17 02/21/17 15:00 23:00 07:00 Intake Total 760 ml 600 ml 400 ml Balance 760 ml 600 ml 400 ml Exam Constitutional: distress, obese Head: normocephalic Eyes: EOMI, nl conjunctiva Respiratory: clear to auscultation Cardiovascular: regular rate and rhythm Gastrointestinal: soft 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 intact Results Result Diagram: 02/20/17 1550 Results 24 hrs Laboratory Tests Test 02/20/17 12:11 02/20/17 15:50 02/20/17 17:28 02/20/17 21:01 Bedside Glucose 175 215 180 Sodium Level 135 Potassium Level 4.9 Chloride Level 94 L Carbon Dioxide Level 23 Anion Gap 23 H Blood Urea Nitrogen 46 H Creatinine 8.10 H Glucose Level 230 H Calcium Level 9.0 Test 02/21/17 07:46 02/21/17 08:36 Bedside Glucose 154 White Blood Count 4.2 #L Red Blood Count 3.39 L Hemoglobin 8.7 L Hematocrit 28.2 L Mean Corpuscular Volume 83.2 Mean Corpuscular Hemoglobin 25.7 L Mean Corpuscular Hemoglobin Concent 30.9 L Red Cell Distribution Width 19.1 H Platelet Count 57 #L Mean Platelet Volume 10.4 Neutrophils % Lymphocytes % Monocytes % Eosinophils % Basophils % Nucleated Red Blood Cells % 0.0 Neutrophils # Lymphocytes # Monocytes # Eosinophils # Basophils # Nucleated Red Blood Cells # Medications Medications Current Medications Ondansetron HCl (Zofran Inj) 4 mg Q4H PRN IV NAUSEA AND/OR VOMITING Last administered on 02/21/17 05:22; Admin Dose 4 MG; Start 02/10/17 at 23:45 IV Flush (NS 10 ml) 10 ml PRN PRN IV FLUSH LINE; Start 02/10/17 at 23:45 Furosemide (Lasix) 80 mg DAILY@06 PO Last administered on 02/21/17 05:26; Admin Dose 80 MG; Start 02/11/17 at 06:00 Lactulose (Enulose) 20 gm HS PO Last administered on 02/18/17 20:47; Admin Dose 20 GM; Start 02/11/17 at 21:00 Miscellaneous Information 1 ea NOTE XX ; Start 02/11/17 at 00:00 Glucose (Glutose) 15 gm Q15M PRN PO DECREASED GLUCOSE; Start 02/11/17 at 00:00 Glucose (Glutose) 22.5 gm Q15M PRN PO DECREASED GLUCOSE; Start 02/11/17 at 00:00 Dextrose (D50w Syringe) 25 ml Q15M PRN IV DECREASED GLUCOSE; Start 02/11/17 at 00:00 Dextrose (D50w Syringe) 50 ml Q15M PRN IV DECREASED GLUCOSE; Start 02/11/17 at 00:00 Glucagon (Glucagen) 1 mg Q15M PRN IM DECREASED GLUCOSE; Start 02/11/17 at 00:00 Glucose (Glutose) 15 gm Q15M PRN BUCCAL DECREASED GLUCOSE; Start 02/11/17 at 00: 00 Multivitamins Therapeutic (Theragran) 1 tab DAILY PO Last administered on 08:40; Admin Dose 1 TAB; Start 02/11/17 at 09:00 Nifedipine (Procardia Xl) 30 mg DAILY PO Last administered on 02/21/17 08:40; Admin Dose 30 MG; Start 02/11/17 at 09:00 Nitroglycerin (Nitroglycerin (Sl Tab) 0.4 Mg) 1 tab Q5M PRN SL CHEST PAIN Last administered on 02/16/17 09:53; Admin Dose 1 TAB; Start 02/11/17 at 00:00 Hydroxyzine HCl (Atarax) 10 mg Q6H PRN PO ITCHING; Start 02/11/17 at 00:00 Diagnostic Test (Pha) (Accu-Chek) 1 ea 02 XX Last administered on 02/20/17 02: 00; Admin Dose 1 EA; Start 02/11/17 at 02:00 Insulin Glargine (Lantus) 32 unit DAILY@20 SC Last administered on 02/20/17 21 :07; Admin Dose 32 UNIT; Start 02/11/17 at 20:00 Lactulose (Enulose) 20 gm Q6 PO Last administered on 02/21/17 05:22; Admin Dose 20 GM; Start 02/11/17 at 00:00 Acetaminophen (Tylenol Tab) 500 mg Q6H PRN PO PAIN AND OR ELEVATED TEMP Last administered on 02/16/17 09:21; Admin Dose 500 MG; Start 02/11/17 at 00:00 Atorvastatin Calcium (Lipitor) 20 mg DAILY@21 PO ; Start 02/11/17 at 21:00 Docusate Sodium (Colace) 100 mg BID PRN PO CONSTIPATION; Start 02/11/17 at 00:00 Epoetin Sean (Epogen (Esrd)) 10,000 units MoWeFr@17 SC Last administered on 17:30; Admin Dose 10,000 UNITS; Start 02/11/17 at 17:00 Linezolid (Zyvox) 600 mg BID PO Last administered on 02/21/17 08:41; Admin Dose 600 MG; Start 02/13/17 at 17:00 Salmeterol Xinafoate/ Fluticasone (Advair 250/50 Diskus) 1 inh BID INH Last administered on 02/21/17 08:40; Admin Dose 1 INH; Start 02/17/17 at 21:00 Promethazine HCl/ Dextromethorphan (Phenergan-Dm) 10 ml TID PRN PO COUGH Last administered on 02/18/17 09:16; Admin Dose 10 ML; Start 02/17/17 at 19:00 Triamcinolone Acetonide (Kenalog 0.1% Oint) 1 applic BID PRN TOP rash; Start at 10:00 Megestrol Acetate (Megace Susp) 400 mg BID PO Last administered on 02/20/17 21 :03; Admin Dose 400 MG; Start 02/20/17 at 14:00 RADHA GARCIA MD Feb 21, 2017 09:17
[2017-02-21 09:24] LABS: ALBUMIN 2.9 g/dl (3.3-4.9); ALBUMIN/GLOBULIN RATIO 0.54; BILIRUBIN,INDIRECT 0.5 mg/dl (0-1.1); BILIRUBIN,TOTAL 0.5 mg/dl (0.2-1.3); CALCIUM 8.6 mg/dl (8.4-10.2); CREATININE 8.76 mg/dl (0.61-1.24); POTASSIUM 4.4 mmol/L (3.5-5.1); TOTAL PROTEIN 8.2 g/dl (6.1-8.1)
[2017-02-21] MEDS: ACETAMINOPHEN 500 MG TAB PO PRN (10:43)
[2017-02-21 11:14] LABS: ANISOCYTOSIS 1+ (0-0); EOSINOPHILS % (M) 4 % (0-7); METAMYELOCYTES %M 1 % (0-0); MONOCYTES % (M) 4 % (0-11); PLATELET ESTIMATE DECREASED
--- NOTE | 2017-02-21 11:35 | PN ---
Date/Time of Note Date/Time of Note DATE: 02/21/17 TIME: 11:30 Assessment/Plan VTE Prophylaxis VTE Prophylaxis Intervention: other Lines/Catheters IV Catheter Type (from Nrsg): PICC Line Central line still needed: Yes Urinary Cath still in place: No Assessment/Plan Assessment/Plan 1. Disuse Myopathy with impaired mobility, gait and ADLs. Continue PT/OT. CGA for grooming and toileting transfers. 2. Cirrhosis with history of Hepatitis C, hepatic encephalopathy. With thrombocytopenia, platelets downtrending on labs. Medical management per GI and internal medicine. Continue ST for cognitive training. 3. VRE UTI. Antibiotics managed per internal medicine. Continue contact isolation. 4. ESRD status post AV fistula placement. On Hemodialysis per nephrology, 5. Hypertension. Continue to monitor BP. Internal medicine following. 6. Diabetes Mellitus type 2. Blood sugars controlled on insulin regimen. 7. History of CHF. Monitor volume status. 8. Anemia. With +Occult blood stool, defer further management and work up per internal medicine. Continue to monitor hemoglobin/hematocrit, fairly stable. 9. Obstructive Sleep apnea 10. Morbid Obesity Subjective 24 Hr Interval Summary Free Text/Dictation Rehab progress note Subjective/History: Nursing staff reports dark stools noted overnight. Patient currently reports generalized muscle aches, requesting tylenol. ROS: Denies headache, no dizziness, no bright red blood per rectum per nursing, no hematemesis, no abdominal pain, no vomiting, no chills. Exam/Review of Systems Vital Signs Vitals Vital Signs Date Time Temp Pulse Resp B/P Pulse Ox O2 Delivery O2 Flow Rate FiO2 02/21/17 08:23 94 20 95 21 02/21/17 07:30 97.8 128/66 02/20/17 20:00 Nasal Cannula 2.0 Intake and Output 02/20/17 02/20/17 02/21/17 15:00 23:00 07:00 Intake Total 760 ml 600 ml 400 ml Balance 760 ml 600 ml 400 ml Exam General: Awake, alert, no acute distress, obese CV: Regular rate, s1s2 Lungs: Symmetrical air entry bilaterally, no wheezing or crackles Abdomen soft, nontender Extremities: RUE AV fistula with dressing in place, no cyanosis Neuro: No focal changes. Follows simple commands. Results Result Diagram: 02/21/17 0836 02/21/17 08 Results 24 hrs Laboratory Tests Test 02/20/17 12:11 02/20/17 15:50 02/20/17 17:28 02/20/17 21:01 Bedside Glucose 175 215 180 Sodium Level 135 Potassium Level 4.9 Chloride Level 94 L Carbon Dioxide Level 23 Anion Gap 23 H Blood Urea Nitrogen 46 H Creatinine 8.10 H Glucose Level 230 H Calcium Level 9.0 Test 02/21/17 07:46 02/21/17 08:26 02/21/17 08:36 02/21/17 10:00 Bedside Glucose 154 Sodium Level 134 L Potassium Level 4.4 Chloride Level 92 L Carbon Dioxide Level 26 Anion Gap 20 H Blood Urea Nitrogen 60 H Creatinine 8.76 H Glucose Level 138 # Calcium Level 8.6 Total Bilirubin 0.5 Direct Bilirubin 0.00 Indirect Bilirubin 0.5 Aspartate Amino Transf (AST/SGOT) 31 Alanine Aminotransferase (ALT/SGPT) 18 Alkaline Phosphatase 109 Total Protein 8.2 H Albumin 2.9 L Globulin 5.30 H Albumin/Globulin Ratio 0.54 White Blood Count 4.2 #L Red Blood Count 3.39 L Hemoglobin 8.7 L Hematocrit 28.2 L Mean Corpuscular Volume 83.2 Mean Corpuscular Hemoglobin 25.7 L Mean Corpuscular Hemoglobin Concent 30.9 L Red Cell Distribution Width 19.1 H Platelet Count 57 #L Mean Platelet Volume 10.4 Neutrophils % Segmented Neutrophils % (Manual) 57 Lymphocytes % Lymphocytes % (Manual) 34 Monocytes % Monocytes % (Manual) 4 Eosinophils % Eosinophils % (Manual) 4 Basophils % Metamyelocytes % (manual) 1 H Nucleated Red Blood Cells % 0.0 Neutrophils # Absolute Lymphocytes (Manual) 1.4 Lymphocytes # Monocytes # Absolute Monocytes (Manual) 0.1 L Eosinophils # Basophils # Metamyelocytes # 0.0 Nucleated Red Blood Cells # Platelet Estimate DECREASED Anisocytosis 1+ Stool Occult Blood POSITIVE Medications Medications Current Medications Ondansetron HCl (Zofran Inj) 4 mg Q4H PRN IV NAUSEA AND/OR VOMITING Last administered on 02/21/17 05:22; Admin Dose 4 MG; Start 02/10/17 at 23:45 IV Flush (NS 10 ml) 10 ml PRN PRN IV FLUSH LINE; Start 02/10/17 at 23:45 Furosemide (Lasix) 80 mg DAILY@06 PO Last administered on 02/21/17 05:26; Admin Dose 80 MG; Start 02/11/17 at 06:00 Lactulose (Enulose) 20 gm HS PO Last administered on 02/18/17 20:47; Admin Dose 20 GM; Start 02/11/17 at 21:00 Miscellaneous Information 1 ea NOTE XX ; Start 02/11/17 at 00:00 Glucose (Glutose) 15 gm Q15M PRN PO DECREASED GLUCOSE; Start 02/11/17 at 00:00 Glucose (Glutose) 22.5 gm Q15M PRN PO DECREASED GLUCOSE; Start 02/11/17 at 00:00 Dextrose (D50w Syringe) 25 ml Q15M PRN IV DECREASED GLUCOSE; Start 02/11/17 at 00:00 Dextrose (D50w Syringe) 50 ml Q15M PRN IV DECREASED GLUCOSE; Start 02/11/17 at 00:00 Glucagon (Glucagen) 1 mg Q15M PRN IM DECREASED GLUCOSE; Start 02/11/17 at 00:00 Glucose (Glutose) 15 gm Q15M PRN BUCCAL DECREASED GLUCOSE; Start 02/11/17 at 00: 00 Multivitamins Therapeutic (Theragran) 1 tab DAILY PO Last administered on 08:40; Admin Dose 1 TAB; Start 02/11/17 at 09:00 Nifedipine (Procardia Xl) 30 mg DAILY PO Last administered on 02/21/17 08:40; Admin Dose 30 MG; Start 02/11/17 at 09:00 Nitroglycerin (Nitroglycerin (Sl Tab) 0.4 Mg) 1 tab Q5M PRN SL CHEST PAIN Last administered on 02/16/17 09:53; Admin Dose 1 TAB; Start 02/11/17 at 00:00 Hydroxyzine HCl (Atarax) 10 mg Q6H PRN PO ITCHING; Start 02/11/17 at 00:00 Diagnostic Test (Pha) (Accu-Chek) 1 ea 02 XX Last administered on 02/20/17 02: 00; Admin Dose 1 EA; Start 02/11/17 at 02:00 Insulin Glargine (Lantus) 32 unit DAILY@20 SC Last administered on 02/20/17 21 :07; Admin Dose 32 UNIT; Start 02/11/17 at 20:00 Lactulose (Enulose) 20 gm Q6 PO Last administered on 02/21/17 05:22; Admin Dose 20 GM; Start 02/11/17 at 00:00 Acetaminophen (Tylenol Tab) 500 mg Q6H PRN PO PAIN AND OR ELEVATED TEMP Last administered on 02/21/17 10:43; Admin Dose 500 MG; Start 02/11/17 at 00:00 Atorvastatin Calcium (Lipitor) 20 mg DAILY@21 PO ; Start 02/11/17 at 21:00 Docusate Sodium (Colace) 100 mg BID PRN PO CONSTIPATION; Start 02/11/17 at 00:00 Epoetin Sean (Epogen (Esrd)) 10,000 units MoWeFr@17 SC Last administered on 17:30; Admin Dose 10,000 UNITS; Start 02/11/17 at 17:00 Linezolid (Zyvox) 600 mg BID PO Last administered on 02/21/17 08:41; Admin Dose 600 MG; Start 02/13/17 at 17:00 Salmeterol Xinafoate/ Fluticasone (Advair 250/50 Diskus) 1 inh BID INH Last administered on 02/21/17 08:40; Admin Dose 1 INH; Start 02/17/17 at 21:00 Promethazine HCl/ Dextromethorphan (Phenergan-Dm) 10 ml TID PRN PO COUGH Last administered on 02/18/17 09:16; Admin Dose 10 ML; Start 02/17/17 at 19:00 Triamcinolone Acetonide (Kenalog 0.1% Oint) 1 applic BID PRN TOP rash; Start at 10:00 Megestrol Acetate (Megace Susp) 400 mg BID PO Last administered on 02/20/17 21 :03; Admin Dose 400 MG; Start 02/20/17 at 14:00 JEREMIE HARPER Feb 21, 2017 11:35
[2017-02-21 14:00] VITALS: BP 155/73; RESP 18
[2017-02-21] MEDS: ESCITALOPRAM 10 MG TAB PO SCH (15:44)
--- NOTE | 2017-02-21 16:12 | PN ---
DATE: 02/21/2017 SUBJECTIVE DATA: The patient complains of severe generalized weakness. Had frequent stools, tarry in color. Appetite has been very poor. OBJECTIVE DATA: VITAL SIGNS: Temperature 98.4, blood pressure 128/66. CHEST: Clinically clear. HEART: S1, S2. No gallops. ABDOMEN: Abdomen obese, nontender. No hepatosplenomegaly. EXTREMITIES: Trace edema. LABORATORY: WBC count 5.2, hematocrit 28.2, and platelet count 57,000. Sodium 134, potassium 4.4. Stool for OB is positive. C diff is pending. IMPRESSION: 1. Likely low-grade gastrointestinal (GI) bleed probably secondary to heparin with the dialysis. 2. Cirrhosis with portal hypertension. 3. Malnourishment. 4. Congestive heart failure (CHF), improved. 5. Diabetes type 2, uncontrolled. 6. Obstructive sleep apnea. 7. History of hepatic encephalopathy, resolved. PLAN: We will closely monitor his hemoglobin, hematocrit, and the platelet count. Platelet count started coming down again. The patient also looks clinically depressed. We will start him on a low dose antidepressant, namely Lexapro 5 mg p.o. q. daily and observe the response. Dictated By: Ivan Brice MD /[email or web address] /Document#: [id number]
--- NOTE | 2017-02-21 18:51 | RADRPT ---
PROCEDURE: Pelvis x-ray CLINICAL INDICATION: s/p fall TECHNIQUE: Portable AP supine view of the pelvis performed. COMPARISON: None FINDINGS: Normal mineralization, architecture and alignment. No fracture or osseous lesion identified. There is mild moderate bilateral hip joint space narrowing and lateral acetabular spurring. Bilateral sacroiliac joints appear narrowed. IMPRESSION: No acute fracture or subluxation. Mild moderate bilateral hip osteoarthritis. Physician Robb Date Time Electronically viewed and signed by Jr Schultz Physician on 02/21/2017 18:51 CS/
--- NOTE | 2017-02-21 18:52 | RADRPT ---
PROCEDURE: XR Hip. CLINICAL INDICATION: s/p fall TECHNIQUE: AP and frog lateral views of the right hip were performed. COMPARISON: None. FINDINGS: There is normal mineralization and alignment. No fracture or osseous lesion is identified. Moderate hip joint space narrowing and acetabular spurring are visualized. The soft tissues are unremarkable. IMPRESSION: No evidence of fracture. Osteoarthritis. Physician Robb Date Time Electronically viewed and signed by Physician Robb on 02/21/2017 18:52 CS/
[2017-02-21 19:37] VITALS: BP 150/71; RESP 20
[2017-02-21] MEDS: INSULIN GLARGINE [LANtus] 3 ML PEN SC SCH (20:36)
[2017-02-22] VITALS (10 sets, daily range): BP systolic 121–162; BP diastolic 63–84; PULSE 87–93; RESP 18–20
[2017-02-22] MEDS: ACCUCHECK AT 2AM (Patients on SS coverage) XX SCH (02:00)
[2017-02-22] MEDS: ONDANSETRON 4 MG INJ IV PRN (03:24)
[2017-02-22] MEDS: LACTULOSE 30ML CUP PO SCH ×5 (06:00→21:00)
[2017-02-22] MEDS: FUROSEMIDE 40 MG TAB PO SCH (06:29)
[2017-02-22] MEDS: Insulin NOVOLOG SS MILD Algorithm (SS with meals and bedtime) SC SCH ×4 (07:05→21:00)
[2017-02-22 07:09] LABS: ABNORMAL IP MESSAGE 1; HEMATOCRIT 26.5 % (42.0-52.0); HEMOGLOBIN 8.3 g/dl (14.0-18.0); MEAN CORPUSCULAR HEMOGLOBIN 25.7 pg (29.0-33.0); MEAN CORPUSCULAR HGB CONC 31.3 g/dl (32.0-37.0); MEAN PLATELET VOLUME 9.8 fl (7.4-10.4); PLATELET COUNT 47 10^3/UL (140-415); POSITIVE DIFF @See below; RED BLOOD COUNT 3.23 10^6/ul (4.70-6.10); RED CELL DISTRIBUTION WIDTH 18.7 % (11.5-14.5); WHITE BLOOD COUNT 4.4 10^3/ul (4.8-10.8)
[2017-02-22 07:25] LABS: CALCIUM 8.8 mg/dl (8.4-10.2); CREATININE 9.56 mg/dl (0.61-1.24); POTASSIUM 4.5 mmol/L (3.5-5.1)
[2017-02-22] MEDS: ALBUTEROL/IPRATROPIUM (NEB) 3 ML AMP HHN SCH ×4 (08:32→20:41)
[2017-02-22 08:47] LABS: ANISOCYTOSIS 1+ (0-0); BASOPHILS % (M) 3 % (0-2); EOSINOPHILS % (M) 8 % (0-7); GIANT THROMBO% (M) 3 % (0-0); MONOCYTES % (M) 2 % (0-11); PLATELET ESTIMATE DECREASED; POIKILOCYTOSIS 1+ (0-0); POLYCHROMASIA 3+ (0-0)
[2017-02-22] MEDS: MEGESTROL (40 MG/ML) 10ML CUP PO SCH ×3 (09:00→21:39)
--- NOTE | 2017-02-22 09:13 | CONS ---
Date/Time of Note Date/Time of Note DATE: 02/22/17 TIME: 09:04 Assessment/Plan Assessment/Plan Problems: (1) Melena Status: Acute Comment: gi consult rec protonix initiated (2) Anemia Status: Chronic Comment: mulitifactorial; renal, cirrhosis, now gi bleeding transfuse 1 unit prbc with dial (3) ESRD (end stage renal disease) on dialysis Status: Chronic Comment: dialysis without heparin today. Will check phosph level, ionized calcium and mag level (4) Cirrhosis Status: Chronic Consultation Date/Type/Reason Admit Date/Time Feb 10, 2017 at 22:43 Type of Consultation: Nephrology 24 HR Interval Summary Free Text/Dictation Patient was ob positive. Dr. Garzon will be requested to ask gi consult. He continues with melanotic stools and protonix ordered. Near syncope on sitting on toilet yesterday per his . He continues to have diffuse muscle aches. He is not sob. He has no appetite. We held dialysis yesterday as too weak. Hemoglobin mild drop from 8.7 to 8.3 but not eating. 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 Results Result Diagram: 02/22/1719 02/22/1719 Results 24 hrs Laboratory Tests Test 02/21/17 10:00 02/21/17 12:05 02/21/17 16:34 02/21/17 17:33 Stool Occult Blood POSITIVE Bedside Glucose 181 154 149 Test 02/21/17 20:26 02/22/17 06:19 02/22/17 07:48 Bedside Glucose 173 112 White Blood Count 4.4 L Red Blood Count 3.23 L Hemoglobin 8.3 L Hematocrit 26.5 L Mean Corpuscular Volume 82.0 Mean Corpuscular Hemoglobin 25.7 L Mean Corpuscular Hemoglobin Concent 31.3 L Red Cell Distribution Width 18.7 H Platelet Count 47 L Mean Platelet Volume 9.8 Neutrophils % Segmented Neutrophils % (Manual) 65 Lymphocytes % Lymphocytes % (Manual) 22 Monocytes % Monocytes % (Manual) 2 Eosinophils % Eosinophils % (Manual) 8 H Basophils % Basophils % (Manual) 3 H Nucleated Red Blood Cells % 0.0 Neutrophils # Absolute Lymphocytes (Manual) 0.9 Lymphocytes # Monocytes # Absolute Monocytes (Manual) 0.0 L Eosinophils # Basophils # Basophils # (Manual) 0.1 H Nucleated Red Blood Cells # Thrombocytosis 3 H Platelet Estimate DECREASED Polychromasia 3+ Poikilocytosis 1+ Anisocytosis 1+ Sodium Level 132 L Potassium Level 4.5 Chloride Level 92 L Carbon Dioxide Level 24 Anion Gap 21 H Blood Urea Nitrogen 75 H Creatinine 9.56 H Glucose Level 103 Calcium Level 8.8 Medications Medications Current Medications Ondansetron HCl (Zofran Inj) 4 mg Q4H PRN IV NAUSEA AND/OR VOMITING Last administered on 02/22/17 03:24; Admin Dose 4 MG; Start 02/10/17 at 23:45 IV Flush (NS 10 ml) 10 ml PRN PRN IV FLUSH LINE; Start 02/10/17 at 23:45 Furosemide (Lasix) 80 mg DAILY@06 PO Last administered on 02/22/17 06:29; Admin Dose 80 MG; Start 02/11/17 at 06:00 Lactulose (Enulose) 20 gm HS PO Last administered on 02/18/17 20:47; Admin Dose 20 GM; Start 02/11/17 at 21:00 Miscellaneous Information 1 ea NOTE XX ; Start 02/11/17 at 00:00 Glucose (Glutose) 15 gm Q15M PRN PO DECREASED GLUCOSE; Start 02/11/17 at 00:00 Glucose (Glutose) 22.5 gm Q15M PRN PO DECREASED GLUCOSE; Start 02/11/17 at 00:00 Dextrose (D50w Syringe) 25 ml Q15M PRN IV DECREASED GLUCOSE; Start 02/11/17 at 00:00 Dextrose (D50w Syringe) 50 ml Q15M PRN IV DECREASED GLUCOSE; Start 02/11/17 at 00:00 Glucagon (Glucagen) 1 mg Q15M PRN IM DECREASED GLUCOSE; Start 02/11/17 at 00:00 Glucose (Glutose) 15 gm Q15M PRN BUCCAL DECREASED GLUCOSE; Start 02/11/17 at 00: 00 Multivitamins Therapeutic (Theragran) 1 tab DAILY PO Last administered on 08:40; Admin Dose 1 TAB; Start 02/11/17 at 09:00 Nifedipine (Procardia Xl) 30 mg DAILY PO Last administered on 02/21/17 08:40; Admin Dose 30 MG; Start 02/11/17 at 09:00 Nitroglycerin (Nitroglycerin (Sl Tab) 0.4 Mg) 1 tab Q5M PRN SL CHEST PAIN Last administered on 02/16/17 09:53; Admin Dose 1 TAB; Start 02/11/17 at 00:00 Hydroxyzine HCl (Atarax) 10 mg Q6H PRN PO ITCHING; Start 02/11/17 at 00:00 Diagnostic Test (Pha) (Accu-Chek) 1 ea 02 XX Last administered on 02/20/17 02: 00; Admin Dose 1 EA; Start 02/11/17 at 02:00 Insulin Glargine (Lantus) 32 unit DAILY@20 SC Last administered on 02/21/17 20 :36; Admin Dose 32 UNIT; Start 02/11/17 at 20:00 Lactulose (Enulose) 20 gm Q6 PO Last administered on 02/21/17 05:22; Admin Dose 20 GM; Start 02/11/17 at 00:00 Acetaminophen (Tylenol Tab) 500 mg Q6H PRN PO PAIN AND OR ELEVATED TEMP Last administered on 02/21/17 10:43; Admin Dose 500 MG; Start 02/11/17 at 00:00 Atorvastatin Calcium (Lipitor) 20 mg DAILY@21 PO ; Start 02/11/17 at 21:00 Docusate Sodium (Colace) 100 mg BID PRN PO CONSTIPATION; Start 02/11/17 at 00:00 Epoetin Sean (Epogen (Esrd)) 10,000 units MoWeFr@17 SC Last administered on 17:30; Admin Dose 10,000 UNITS; Start 02/11/17 at 17:00 Salmeterol Xinafoate/ Fluticasone (Advair 250/50 Diskus) 1 inh BID INH Last administered on 02/21/17 20:27; Admin Dose 1 INH; Start 02/17/17 at 21:00 Promethazine HCl/ Dextromethorphan (Phenergan-Dm) 10 ml TID PRN PO COUGH Last administered on 02/18/17 09:16; Admin Dose 10 ML; Start 02/17/17 at 19:00 Triamcinolone Acetonide (Kenalog 0.1% Oint) 1 applic BID PRN TOP rash; Start at 10:00 Megestrol Acetate (Megace Susp) 400 mg BID PO Last administered on 02/20/17 21 :03; Admin Dose 400 MG; Start 02/20/17 at 14:00 Escitalopram Oxalate (Lexapro) 5 mg DAILY PO Last administered on 02/21/17 15: 44; Admin Dose 5 MG; Start 02/21/17 at 14:00 RADHA GARCIA MD Feb 22, 2017 09:12
[2017-02-22] MEDS: ESCITALOPRAM 10 MG TAB PO SCH (09:19)
[2017-02-22] MEDS: PANTOPRAZOLE (EC) 40 MG TAB PO SCH (09:20)
[2017-02-22] MEDS: MULTIVITAMINS THERAPEUTIC TAB PO SCH (09:20)
[2017-02-22] MEDS: NIFEdipine (XL) 30 MG TAB PO SCH (09:20)
[2017-02-22] MEDS: SALMETEROL/FLUTICASONE 250/50 INHA INH SCH ×2 (09:21→21:39)
[2017-02-22] MEDS: ACETAMINOPHEN 500 MG TAB PO PRN (12:17)
--- NOTE | 2017-02-22 13:06 | PN ---
DATE: 02/22/2017 SUBJECTIVE: The patient is comfortable but somewhat withdrawn. Appetite still very poor. Had a fall yesterday while he was trying to go to the bathroom, apparently felt dizzy. Denies any chest pain or no headache at that time. OBJECTIVE DATA: GENERAL: Patient is awake. VITAL SIGNS: Blood pressure 113/82, heart rate 87 per minute, O2 sats 97 percent on room air. CHEST: Clinically clear. HEART: S1 and S2 heard. No gallops. EXTREMITIES: Trace edema. Able to move both lower extremities well. No tenderness on palpation of the hips. LABORATORY AND DIAGNOSTIC DATA: X-rays done of the hips, no evidence of fracture. X-rays of the pelvis, no acute fracture or subluxation. Moderate bilateral hip osteoarthritis. IMPRESSION: 1. Mild anemia with recent low-grade gastrointestinal bleed. 2. Acute on chronic renal failure. 3. Cirrhosis with portal hypertension, history of hep C. 4. The patient is malnourished. 5. Congestive heart failure, improved. 6. Obstructive sleep apnea. 7. Hepatic encephalopathy, resolved. 8. Underlying major depression. The patient has been started on Lexapro. Given patient with cirrhosis, has higher risk of osteoporosis. We will check for vitamin D level and supplement accordingly. Will also order an alpha fetoprotein because of the increased risk of hepatic carcinoma. Continue physical therapy and no further recommendations per Dr. Castro. Dictated By: Ivan Brice MD /[email or web address] /Document#: [id number]
[2017-02-22 17:40] LABS: MAGNESIUM 2.8 mg/dl (1.7-2.5); PHOSPHORUS 8.3 mg/dl (2.5-4.9)
[2017-02-22] MEDS: INSULIN GLARGINE [LANtus] 3 ML PEN SC SCH (21:43)
[2017-02-23] MEDS: ACCUCHECK AT 2AM (Patients on SS coverage) XX SCH (02:00)
[2017-02-23] MEDS: LACTULOSE 30ML CUP PO SCH ×3 (05:55→12:42)
[2017-02-23] MEDS: PANTOPRAZOLE (EC) 40 MG TAB PO SCH (05:56)
[2017-02-23] MEDS: FUROSEMIDE 40 MG TAB PO SCH (05:56)
[2017-02-23] MEDS: ACETAMINOPHEN 500 MG TAB PO PRN (05:59)
[2017-02-23] MEDS: Insulin NOVOLOG SS MILD Algorithm (SS with meals and bedtime) SC SCH ×2 (07:05→12:41)
[2017-02-23 07:25] LABS: ABNORMAL IP MESSAGE 1; BASOPHILS % 0.9 % (0.0-2.0); EOSINOPHILS # 0.1 10^3/ul (0.0-0.5); EOSINOPHILS % 2.8 % (0.0-7.0); HEMATOCRIT 28.9 % (42.0-52.0); HEMOGLOBIN 9.3 g/dl (14.0-18.0); LYMPHOCYTES # 1.2 10^3/ul (0.8-2.9); LYMPHOCYTES % 27.6 % (15.0-51.0); MEAN CORPUSCULAR HEMOGLOBIN 26.6 pg (29.0-33.0); MEAN CORPUSCULAR HGB CONC 32.2 g/dl (32.0-37.0); MEAN CORPUSCULAR VOLUME 82.8 fl (82.0-101.0); MEAN PLATELET VOLUME 10.4 fl (7.4-10.4); MONOCYTE # 0.4 10^3/ul (0.3-0.9); NEUTROPHIL # 2.6 10^3/ul (1.6-7.5); NEUTROPHILS % 59.5 % (39.0-77.0); POSITIVE DIFF @See below; RED BLOOD COUNT 3.49 10^6/ul (4.70-6.10); RED CELL DISTRIBUTION WIDTH 18.2 % (11.5-14.5); WHITE BLOOD COUNT 4.3 10^3/ul (4.8-10.8)
[2017-02-23 07:30] VITALS: BP 134/61; RESP 18
[2017-02-23 07:30] LABS: PLATELET COUNT 47 10^3/UL (140-415)
--- NOTE | 2017-02-23 08:35 | CONS ---
Date/Time of Note Date/Time of Note DATE: 02/23/17 TIME: 08:28 Assessment/Plan Assessment/Plan Chief Complaint/Hosp Course 1. ESRD , now on maintenance hemodialysis TTS . His next dialysis treatment is due tomorrow and is ordered.. I have ordered that the amount of fluid removed to be limited to 2500 cc because the patient c/o severe lethargy after dialysis . I will order an ammonia level and chemistry panel for today. 2. Cirrhosis of the liver 3. malnourished 4. CHF 5. DM 6. Sleep apnea 7. History of hepatitis C, treated 8. History of hepatic encephalopathy, his last serum ammonia level was slightly elevated at 34 . I told him that he needs to take the lactulose and keep himself from getting constipated. He continues to be very lethargic , etiology of which is not entirely clear. 9. Morbid obesity 10. He still has some intermittent nausea but is not vomiting. 11. Urinary tract infection. He is now growing VRE from his urine. His antibiotics have been adjusted and is now on Linazelide . 12. He continues to have a cough ,but less .CT of chest shows cardiomegaly and some pulmonary vascular congestion 13. He has had gastrointestinal bleeding and continues to have melena. His hemoglobin and hematocrit are higher than yesterday. Problems: Consultation Date/Type/Reason Admit Date/Time Feb 10, 2017 at 22:43 Type of Consultation: Nephrology 24 HR Interval Summary Free Text/Dictation He says that he feels dizzy. He is lying in bed. His is is in the room with him. Constitutional: other Exam/Review of Systems Vital Signs Vitals Vital Signs Date Time Temp Pulse Resp B/P Pulse Ox O2 Delivery O2 Flow Rate FiO2 02/22/17 20:40 90 18 96 21 02/22/17 20:00 98.8 132/72 02/22/17 20:00 Nasal Cannula 02/21/17 20:00 2.0 Intake and Output 02/22/17 02/22/17 02/23/17 15:00 23:00 07:00 Intake Total 740 ml 240 ml Output Total 3150 ml Balance -2410 ml 240 ml Exam Constitutional: alert, frail, obese, oriented Psych: confusion, depression Respiratory: clear to auscultation, diminished breath sounds Cardiovascular: regular rate and rhythm Gastrointestinal: non-tender, soft Musculoskeletal: nl extremities to inspection Results Result Diagram: 02/23/17 0622 02/22/17 0619 Results 24 hrs Laboratory Tests Test 02/22/17 12:08 02/22/17 17:00 02/22/17 17:22 02/22/17 21:37 Bedside Glucose 120 139 121 Ionized Calcium (Measured) 1.0 L Phosphorus Level 8.3 H Magnesium Level 2.8 H Test 02/23/17 06:22 02/23/17 08:00 White Blood Count 4.3 L Red Blood Count 3.49 L Hemoglobin 9.3 L Hematocrit 28.9 L Mean Corpuscular Volume 82.8 Mean Corpuscular Hemoglobin 26.6 L Mean Corpuscular Hemoglobin Concent 32.2 Red Cell Distribution Width 18.2 H Platelet Count 47 L Mean Platelet Volume 10.4 Neutrophils % 59.5 Lymphocytes % 27.6 Monocytes % 9.0 Eosinophils % 2.8 Basophils % 0.9 Nucleated Red Blood Cells % 0.0 Neutrophils # 2.6 Lymphocytes # 1.2 Monocytes # 0.4 Eosinophils # 0.1 Basophils # 0.0 Nucleated Red Blood Cells # 0.0 Bedside Glucose 138 Medications Medications Current Medications Ondansetron HCl (Zofran Inj) 4 mg Q4H PRN IV NAUSEA AND/OR VOMITING Last administered on 02/22/17 03:24; Admin Dose 4 MG; Start 02/10/17 at 23:45 IV Flush (NS 10 ml) 10 ml PRN PRN IV FLUSH LINE; Start 02/10/17 at 23:45 Furosemide (Lasix) 80 mg DAILY@06 PO Last administered on 02/23/17 05:56; Admin Dose 80 MG; Start 02/11/17 at 06:00 Lactulose (Enulose) 20 gm HS PO Last administered on 02/18/17 20:47; Admin Dose 20 GM; Start 02/11/17 at 21:00 Miscellaneous Information 1 ea NOTE XX ; Start 02/11/17 at 00:00 Glucose (Glutose) 15 gm Q15M PRN PO DECREASED GLUCOSE; Start 02/11/17 at 00:00 Glucose (Glutose) 22.5 gm Q15M PRN PO DECREASED GLUCOSE; Start 02/11/17 at 00:00 Dextrose (D50w Syringe) 25 ml Q15M PRN IV DECREASED GLUCOSE; Start 02/11/17 at 00:00 Dextrose (D50w Syringe) 50 ml Q15M PRN IV DECREASED GLUCOSE; Start 02/11/17 at 00:00 Glucagon (Glucagen) 1 mg Q15M PRN IM DECREASED GLUCOSE; Start 02/11/17 at 00:00 Glucose (Glutose) 15 gm Q15M PRN BUCCAL DECREASED GLUCOSE; Start 02/11/17 at 00: 00 Multivitamins Therapeutic (Theragran) 1 tab DAILY PO Last administered on 09:20; Admin Dose 1 TAB; Start 02/11/17 at 09:00 Nifedipine (Procardia Xl) 30 mg DAILY PO Last administered on 02/22/17 09:20; Admin Dose 30 MG; Start 02/11/17 at 09:00 Nitroglycerin (Nitroglycerin (Sl Tab) 0.4 Mg) 1 tab Q5M PRN SL CHEST PAIN Last administered on 02/16/17 09:53; Admin Dose 1 TAB; Start 02/11/17 at 00:00 Hydroxyzine HCl (Atarax) 10 mg Q6H PRN PO ITCHING; Start 02/11/17 at 00:00 Diagnostic Test (Pha) (Accu-Chek) 1 ea 02 XX Last administered on 02/20/17 02: 00; Admin Dose 1 EA; Start 02/11/17 at 02:00 Insulin Glargine (Lantus) 32 unit DAILY@20 SC Last administered on 02/22/17 21 :43; Admin Dose 32 UNIT; Start 02/11/17 at 20:00 Lactulose (Enulose) 20 gm Q6 PO Last administered on 02/23/17 05:55; Admin Dose 20 GM; Start 02/11/17 at 00:00 Acetaminophen (Tylenol Tab) 500 mg Q6H PRN PO PAIN AND OR ELEVATED TEMP Last administered on 02/23/17 05:59; Admin Dose 500 MG; Start 02/11/17 at 00:00 Atorvastatin Calcium (Lipitor) 20 mg DAILY@21 PO ; Start 02/11/17 at 21:00 Docusate Sodium (Colace) 100 mg BID PRN PO CONSTIPATION; Start 02/11/17 at 00:00 Epoetin Sean (Epogen (Esrd)) 10,000 units MoWeFr@17 SC Last administered on 17:30; Admin Dose 10,000 UNITS; Start 02/11/17 at 17:00 Salmeterol Xinafoate/ Fluticasone (Advair 250/50 Diskus) 1 inh BID INH Last administered on 02/22/17 21:39; Admin Dose 1 INH; Start 02/17/17 at 21:00 Promethazine HCl/ Dextromethorphan (Phenergan-Dm) 10 ml TID PRN PO COUGH Last administered on 02/18/17 09:16; Admin Dose 10 ML; Start 02/17/17 at 19:00 Triamcinolone Acetonide (Kenalog 0.1% Oint) 1 applic BID PRN TOP rash; Start at 10:00 Megestrol Acetate (Megace Susp) 400 mg BID PO Last administered on 02/20/17 21 :03; Admin Dose 400 MG; Start 02/20/17 at 14:00 Escitalopram Oxalate (Lexapro) 5 mg DAILY PO Last administered on 02/22/17 09: 19; Admin Dose 5 MG; Start 02/21/17 at 14:00 Pantoprazole (Protonix Tab) 40 mg DAILY@06 PO Last administered on 02/23/17 05 :56; Admin Dose 40 MG; Start 02/22/17 at 09:30 ANA MELENDEZ MD Feb 23, 2017 08:35
[2017-02-23] MEDS: ALBUTEROL/IPRATROPIUM (NEB) 3 ML AMP HHN SCH ×2 (08:53→12:59)
[2017-02-23] MEDS: ESCITALOPRAM 10 MG TAB PO SCH (09:00)
[2017-02-23] MEDS: MEGESTROL (40 MG/ML) 10ML CUP PO SCH (09:14)
[2017-02-23] MEDS: SALMETEROL/FLUTICASONE 250/50 INHA INH SCH (09:14)
[2017-02-23] MEDS: NIFEdipine (XL) 30 MG TAB PO SCH (09:15)
[2017-02-23] MEDS: MULTIVITAMINS THERAPEUTIC TAB PO SCH (09:15)
[2017-02-23 10:52] LABS: ALBUMIN/GLOBULIN RATIO 0.56; BILIRUBIN,INDIRECT 0.9 mg/dl (0-1.1); BILIRUBIN,TOTAL 0.9 mg/dl (0.2-1.3); CALCIUM 8.5 mg/dl (8.4-10.2); CREATININE 7.1 mg/dl (0.61-1.24); POTASSIUM 4.2 mmol/L (3.5-5.1); TOTAL PROTEIN 8.3 g/dl (6.1-8.1)
--- NOTE | 2017-02-23 13:29 | CONS ---
Date/Time of Note Date/Time of Note DATE: 02/23/17 TIME: 13:29 Consult Date/Type/Reason Admit Date/Time Feb 10, 2017 at 22:43 Type of Consultation: Nephrology Objective Vital Signs Date Time Temp Pulse Resp B/P Pulse Ox O2 Delivery O2 Flow Rate FiO2 02/23/17 08:53 88 20 95 21 02/23/17 07:30 98.4 134/61 02/22/17 20:00 Nasal Cannula 02/21/17 20:00 2.0 Intake and Output 02/22/17 02/22/17 02/23/17 15:00 23:00 07:00 Intake Total 740 ml 240 ml Output Total 3150 ml Balance -2410 ml 240 ml INTERDISCIPLINARY TEAM CONFERENCE BOWEL- Cont BLADDER-Cont SKIN- intact OT- DRESSING BATHING TOILETING PT- BED MOBILITY TRANSFERS AMBULATION W.C. MOBILITY SPEECH- COGNITION DYPHAGIA A/P- Interdisciplinary team conference held today. Please see interdisciplinary sheet. Results/Medications Result Diagram: 02/23/17 0622 02/23/17 0948 Results 24 hrs Laboratory Tests Test 02/22/17 17:00 02/22/17 17:22 02/22/17 21:37 02/23/17 06:22 Ionized Calcium (Measured) 1.0 L Phosphorus Level 8.3 H Magnesium Level 2.8 H Bedside Glucose 139 121 White Blood Count 4.3 L Red Blood Count 3.49 L Hemoglobin 9.3 L Hematocrit 28.9 L Mean Corpuscular Volume 82.8 Mean Corpuscular Hemoglobin 26.6 L Mean Corpuscular Hemoglobin Concent 32.2 Red Cell Distribution Width 18.2 H Platelet Count 47 L Mean Platelet Volume 10.4 Neutrophils % 59.5 Lymphocytes % 27.6 Monocytes % 9.0 Eosinophils % 2.8 Basophils % 0.9 Nucleated Red Blood Cells % 0.0 Neutrophils # 2.6 Lymphocytes # 1.2 Monocytes # 0.4 Eosinophils # 0.1 Basophils # 0.0 Nucleated Red Blood Cells # 0.0 Test 02/23/17 06:25 02/23/17 08:00 02/23/17 09:48 02/23/17 12:20 Alpha Fetoprotein 3.17 Bedside Glucose 138 161 Sodium Level 132 L Potassium Level 4.2 Chloride Level 96 L Carbon Dioxide Level 26 Anion Gap 14 # Blood Urea Nitrogen 42 #H Creatinine 7.10 #H Glucose Level 144 # Calcium Level 8.5 Total Bilirubin 0.9 Direct Bilirubin 0.00 Indirect Bilirubin 0.9 Aspartate Amino Transf (AST/SGOT) 44 Alanine Aminotransferase (ALT/SGPT) 19 Alkaline Phosphatase 103 Ammonia 14 Total Protein 8.3 H Albumin 3.0 L Globulin 5.30 H Albumin/Globulin Ratio 0.56 Medications Current Medications Ondansetron HCl (Zofran Inj) 4 mg Q4H PRN IV NAUSEA AND/OR VOMITING Last administered on 02/22/17 03:24; Admin Dose 4 MG; Start 02/10/17 at 23:45 IV Flush (NS 10 ml) 10 ml PRN PRN IV FLUSH LINE; Start 02/10/17 at 23:45 Furosemide (Lasix) 80 mg DAILY@06 PO Last administered on 02/23/17 05:56; Admin Dose 80 MG; Start 02/11/17 at 06:00 Lactulose (Enulose) 20 gm HS PO Last administered on 02/18/17 20:47; Admin Dose 20 GM; Start 02/11/17 at 21:00 Miscellaneous Information 1 ea NOTE XX ; Start 02/11/17 at 00:00 Glucose (Glutose) 15 gm Q15M PRN PO DECREASED GLUCOSE; Start 02/11/17 at 00:00 Glucose (Glutose) 22.5 gm Q15M PRN PO DECREASED GLUCOSE; Start 02/11/17 at 00:00 Dextrose (D50w Syringe) 25 ml Q15M PRN IV DECREASED GLUCOSE; Start 02/11/17 at 00:00 Dextrose (D50w Syringe) 50 ml Q15M PRN IV DECREASED GLUCOSE; Start 02/11/17 at 00:00 Glucagon (Glucagen) 1 mg Q15M PRN IM DECREASED GLUCOSE; Start 02/11/17 at 00:00 Glucose (Glutose) 15 gm Q15M PRN BUCCAL DECREASED GLUCOSE; Start 02/11/17 at 00: 00 Multivitamins Therapeutic (Theragran) 1 tab DAILY PO Last administered on 09:15; Admin Dose 1 TAB; Start 02/11/17 at 09:00 Nifedipine (Procardia Xl) 30 mg DAILY PO Last administered on 02/23/17 09:15; Admin Dose 30 MG; Start 02/11/17 at 09:00 Nitroglycerin (Nitroglycerin (Sl Tab) 0.4 Mg) 1 tab Q5M PRN SL CHEST PAIN Last administered on 02/16/17 09:53; Admin Dose 1 TAB; Start 02/11/17 at 00:00 Hydroxyzine HCl (Atarax) 10 mg Q6H PRN PO ITCHING; Start 02/11/17 at 00:00 Diagnostic Test (Pha) (Accu-Chek) 1 ea 02 XX Last administered on 02/20/17 02: 00; Admin Dose 1 EA; Start 02/11/17 at 02:00 Insulin Glargine (Lantus) 32 unit DAILY@20 SC Last administered on 02/22/17 21 :43; Admin Dose 32 UNIT; Start 02/11/17 at 20:00 Lactulose (Enulose) 20 gm Q6 PO Last administered on 02/23/17 12:42; Admin Dose 20 GM; Start 02/11/17 at 00:00 Acetaminophen (Tylenol Tab) 500 mg Q6H PRN PO PAIN AND OR ELEVATED TEMP Last administered on 02/23/17 05:59; Admin Dose 500 MG; Start 02/11/17 at 00:00 Atorvastatin Calcium (Lipitor) 20 mg DAILY@21 PO ; Start 02/11/17 at 21:00 Docusate Sodium (Colace) 100 mg BID PRN PO CONSTIPATION; Start 02/11/17 at 00:00 Epoetin Sean (Epogen (Esrd)) 10,000 units MoWeFr@17 SC Last administered on 17:30; Admin Dose 10,000 UNITS; Start 02/11/17 at 17:00 Salmeterol Xinafoate/ Fluticasone (Advair 250/50 Diskus) 1 inh BID INH Last administered on 02/23/17 09:14; Admin Dose 1 INH; Start 02/17/17 at 21:00 Promethazine HCl/ Dextromethorphan (Phenergan-Dm) 10 ml TID PRN PO COUGH Last administered on 02/18/17 09:16; Admin Dose 10 ML; Start 02/17/17 at 19:00 Triamcinolone Acetonide (Kenalog 0.1% Oint) 1 applic BID PRN TOP rash; Start at 10:00 Megestrol Acetate (Megace Susp) 400 mg BID PO Last administered on 02/23/17 09 :14; Admin Dose 400 MG; Start 02/20/17 at 14:00 Escitalopram Oxalate (Lexapro) 5 mg DAILY PO Last administered on 02/22/17 09: 19; Admin Dose 5 MG; Start 02/21/17 at 14:00 Pantoprazole (Protonix Tab) 40 mg DAILY@06 PO Last administered on 02/23/17 05 :56; Admin Dose 40 MG; Start 02/22/17 at 09:30 CYNTHIA RODRIGUEZ MD Feb 23, 2017 13:29
--- NOTE | 2017-02-23 18:58 | PN ---
DATE: 02/23/2017 ADDENDUM: The patient is having severe chills and feels extremely weak. We will obtain blood cultures times 2 and urine cultures and then transferred to the medical floor today. Dictated By: Ivan Brice MD /[email or web address]/preston /Document#: [id number]
--- NOTE | 2017-02-23 20:24 | PN ---
DATE: 02/23/2017 SUBJECTIVE: The patient is very lethargic. Still having tarry stools. Unable to participate in rehab. Complains generalized weakness. Very poor p.o. intake. OBJECTIVE DATA: VITAL SIGNS: Temperature 98.4, blood pressure 134/61, and O2 sat 96 percent. CHEST: Clinically clear. HEART: S1, S2. No rubs or gallops. EXTREMITIES: Trace edema. LABORATORY: Sodium 132, potassium 4.2, BUN 42, creatinine 7.10, calcium 8.5, and hematocrit 28.9. WBC count 4.3, platelet count 47,000. IMPRESSION: 1. Lethargy, etiology unclear. 2. Recurrent urine tract infection. 3. Acute on chronic renal failure on hemodialysis. 4. Hepatic cirrhosis with portal hypertension. 5. Malnourishment. 6. Congestive heart failure (CHF). 7. Diabetes mellitus type 2, well controlled. 8. Obstructive sleep apnea. 9. History of hepatic encephalopathy, reason lethargy. 10. Morbid obesity. PLAN: We will recheck the urine cultures. We will discuss with Dr. Yadav and Dr. Castro. Any other change in status we will consider transferring the patient to the medical floor after discussing with Dr. Castro. Also to change the time of Lexapro to be given at bedtime. Dictated By: Ivan Brice MD /[email or web address]/preston /Document#: [id number]
== END 2017-02-23 16:00 | disposition short-term general hospital (02) | DRG 981 ==
LOC: VRC 22:43
PROVIDERS: ADMIT Physical Medicine & Rehabilitation; ATTEND Internal Medicine
PROC: 5A1D60Z (ICD-10-PCS; 2017-02-12)
PROC: 03170JD Bypass Right Brachial Artery to Upper Arm Vein with Synthetic Substitute, Open Approach (ICD-10-PCS; principal; 2017-02-13 11:30)
PROC: 30233N1 Transfusion of Nonautologous Red Blood Cells into Peripheral Vein, Percutaneous Approach (ICD-10-PCS; 2017-02-22)
DX: G72.89 Other specified myopathies (principal); N18.6 End stage renal disease; K72.00 Acute and subacute hepatic failure without coma; I13.2 Hypertensive heart and chronic kidney disease with heart failure and with stage 5 chronic kidney disease, or end stage renal disease; N17.9 Acute kidney failure, unspecified; K76.6 Portal hypertension; E46 Unspecified protein-calorie malnutrition; E11.22 Type 2 diabetes mellitus with diabetic chronic kidney disease; D69.6 Thrombocytopenia, unspecified; N39.0 Urinary tract infection, site not specified; K92.1 Melena; E66.01 Morbid (severe) obesity due to excess calories; R53.1 Weakness; I50.9 Heart failure, unspecified; Z68.39 Body mass index [BMI] 39.0-39.9, adult; K74.60 Unspecified cirrhosis of liver; F06.8 Other specified mental disorders due to known physiological condition; Z74.09 Other reduced mobility; G31.84 Mild cognitive impairment of uncertain or unknown etiology; F06.31 Mood disorder due to known physiological condition with depressive features; F32.9 Major depressive disorder, single episode, unspecified; D64.9 Anemia, unspecified; G47.33 Obstructive sleep apnea (adult) (pediatric); B19.20 Unspecified viral hepatitis C without hepatic coma; J45.909 Unspecified asthma, uncomplicated; R91.1 Solitary pulmonary nodule; B95.2 Enterococcus as the cause of diseases classified elsewhere; Z16.21 Resistance to vancomycin; Z99.2 Dependence on renal dialysis; Z79.4 Long term (current) use of insulin; Z87.891 Personal history of nicotine dependence
CPT/HCPCS: 36430; 36600; 71010; 71250; 72170; 73520; 80048; 80053; 81001; 82105; 82140; 82270; 82306; 82330; 82803; 82962; 83735; 84100; 84484; 85025; 85610; 85730; 86021; 86803; 86850; 86900; 86901; 86920; 87040; 87075; 87081; 87086; 87340; 90935; 92507; 92523; 92610; 93005; 93970; 94640; 94664; 97110; 97112; 97116; 97150; 97163; 97167; 97530; 97535; C1768; C1725; J0690; J1644; J1815; J2250; J2405; J3010; J3370; J7050; P9016; Q4081

== ENCOUNTER 2017-02-23 17:22 | Inpatient (IN) | payer BC ==
[~2017-02-23] VITALS: Ht 182.9 cm; Wt 111.6 kg
[2017-02-23] MEDS: ALBUTEROL/IPRATROPIUM (NEB) 3 ML AMP HHN SCH (10:22)
[2017-02-23 17:47] VITALS: BP 133/64; PULSE 101; RESP 20
[2017-02-23 17:49] VITALS: PULSE 103
[2017-02-23] MEDS ORDERED: hydrOXYzine HCL 10 MG TAB PO PRN (19:00)
[2017-02-23] MEDS ORDERED: PROMETHAZINE/DM (CUP) PO PRN (19:00)
[2017-02-23] MEDS ORDERED: LACTULOSE 30ML CUP PO PRN (19:00)
[2017-02-23] MEDS ORDERED: NITROGLYCERIN (SL) 0.4 MG TAB SL PRN (19:00)
[2017-02-23] MEDS ORDERED: ALBUTEROL/IPRATROPIUM (NEB) 3 ML AMP HHN PRN (19:00)
[2017-02-23] MEDS ORDERED: ONDANSETRON 4 MG INJ IV PRN (19:00)
[2017-02-23 20:27] VITALS: PULSE 95
[2017-02-23 20:41] VITALS: BP 186/88; RESP 18
[2017-02-23 20:57] LABS: ABNORMAL IP MESSAGE 1; BASOPHIL # 0.1 10^3/ul (0.0-0.1); BASOPHILS % 1.1 % (0.0-2.0); EOSINOPHILS # 0.1 10^3/ul (0.0-0.5); EOSINOPHILS % 2.6 % (0.0-7.0); HEMATOCRIT 29.1 % (42.0-52.0); HEMOGLOBIN 9.2 g/dl (14.0-18.0); LYMPHOCYTES # 1.4 10^3/ul (0.8-2.9); LYMPHOCYTES % 30.4 % (15.0-51.0); MEAN CORPUSCULAR HEMOGLOBIN 26.2 pg (29.0-33.0); MEAN CORPUSCULAR HGB CONC 31.6 g/dl (32.0-37.0); MEAN CORPUSCULAR VOLUME 82.9 fl (82.0-101.0); MEAN PLATELET VOLUME 9.8 fl (7.4-10.4); MONOCYTE # 0.4 10^3/ul (0.3-0.9); MONOCYTES % 9.1 % (0.0-11.0); NEUTROPHILS % 56.6 % (39.0-77.0); PLATELET COUNT 41 10^3/UL (140-415); POSITIVE DIFF @See below; RED BLOOD COUNT 3.51 10^6/ul (4.70-6.10); WHITE BLOOD COUNT 4.6 10^3/ul (4.8-10.8)
[2017-02-23] MEDS: INSULIN ASPART [NOVOLOG] 3 ML PEN SC SCH (21:00)
[2017-02-23] MEDS: DOCUSATE SODIUM 100 MG CAP PO SCH (21:00)
[2017-02-23] MEDS: MEGESTROL (40 MG/ML) 10ML CUP PO SCH (21:00)
[2017-02-23] MEDS: SALMETEROL/FLUTICASONE 250/50 INHA INH SCH (21:00)
[2017-02-23] MEDS: TRIAMCINOLONE ACET 0.1% 15 GM OINT TOP SCH (21:00)
[2017-02-23] MEDS ORDERED: LACTULOSE 30ML CUP PO SCH (21:00)
[2017-02-23 21:43] LABS: ALBUMIN 3.2 g/dl (3.3-4.9); ALBUMIN/GLOBULIN RATIO 0.6; BILIRUBIN,INDIRECT 0.8 mg/dl (0-1.1); BILIRUBIN,TOTAL 0.8 mg/dl (0.2-1.3); CALCIUM 8.6 mg/dl (8.4-10.2); CREATININE 7.94 mg/dl (0.61-1.24); POTASSIUM 4.5 mmol/L (3.5-5.1); TOTAL PROTEIN 8.5 g/dl (6.1-8.1)
[2017-02-24] VITALS (19 sets, daily range): BP systolic 133–167; BP diastolic 66–89; PULSE 80–114; RESP 19–20
[2017-02-24] MEDS: ACCU-CHEK XX SCH (02:00)
[2017-02-24] MEDS ORDERED: ACCU-CHEK XX SCH (02:00)
[2017-02-24] MEDS: PANTOPRAZOLE (EC) 40 MG TAB PO SCH (06:53)
[2017-02-24] MEDS: INSULIN ASPART [NOVOLOG] 3 ML PEN SC SCH ×4 (07:55→21:00)
--- NOTE | 2017-02-24 08:38 | CONS ---
DATE OF ADMISSION: 02/23/2017 DATE OF CONSULTATION: 02/24/2017 REASON FOR CONSULTATION: End-stage renal disease. Thank you, Dr. Brice for asking me to participate in medical management of this patient. HISTORY OF PRESENT ILLNESS: This 61-year-old man was transferred yesterday from the acute rehab unit at [facility] to the inpatient telemetry floor. This was done because the patient seemed to be weaker than previous. He also was having some chills and was thought to have some GI bleeding. The patient is now on the telemetry floor. He is awake and alert. He said he feels better today. The patient has end-stage renal disease and is on maintenance hemodialysis Thursday, , Thursday. Today being Thursday, he is due for hemodialysis treatment. The patient has chronic kidney disease thought to be due to chronic glomerular nephritis. He has 6-7 g of protein on a urine protein-creatinine ratio. He has a history of hepatitis C, which has been treated and he has a history of cirrhosis. The patient is awake and responsive today. PAST MEDICAL HISTORY: Remarkable for the followin. End-stage renal disease, on maintenance hemodialysis. 2. Cirrhosis of the liver. 3. Malnourished. 4. Congestive heart failure. 5. Diabetes mellitus. 6. Sleep apnea. 7. Hepatitis C treated, now negative. 8. History of hepatic encephalopathy. His last ammonia level was normal. 9. Morbid obesity. 10. Urinary tract infection. He is now growing vancomycin- resistant enterococcus from his urine. 11. He has had some GI bleeding. 12. He has had some melena. MEDICATION: Include the following, Epogen 10,000 units subcu Thursday, Thursday, and Thursday, Lexapro 10 mg a day, furosemide 40 mg a day, multivitamin 1 daily, nifedipine 30 mg a day, pantoprazole 40 mg a day, DuoNeb inhaler, docusate sodium, lactulose 30 g at bedtime, Megace 400 mg twice a day, Advair 250/50 one puff twice a day, insulin sliding scale, acetaminophen, hydroxyzine, nitroglycerin p.r.n., Zofran and Phenergan DM. PHYSICAL EXAMINATION: GENERAL APPEARANCE: At this time, reveals an obese man, in no apparent distress. VITAL SIGNS: Temperature 98.4, pulse of 91, respirations 20, blood pressure 162/78, O2 sat 94 percent. HEENT: Head normocephalic. Eyes, extraocular muscles intact. Nose and mouth are normal. NECK: Supple. No neck vein distention. LUNGS: Showed diminished breath sounds bilaterally. Lungs were otherwise clear. HEART: Regular rhythm. No murmurs, gallops, or rubs. ABDOMEN: Soft, nontender. No masses or megaly. EXTREMITIES: No peripheral edema. IMPRESSION: End-stage renal disease. This patient is on maintenance hemodialysis and is due for his routine hemodialysis treatment today. The patient now has a right internal jugular PermCath and a right upper arm arteriovenous fistula, which is maturing. He seems overall improved from yesterday. PLAN: 1. Hemodialysis ordered for today. 2. I will follow the patient along with you. Dictated By: King Castro MD /[email or web address]/steven /Document#: [id number]
[2017-02-24] MEDS: DOCUSATE SODIUM 100 MG CAP PO SCH (08:46)
[2017-02-24] MEDS: MULTIVITAMINS THERAPEUTIC TAB PO SCH (08:49)
[2017-02-24] MEDS: NIFEdipine (XL) 30 MG TAB PO SCH (08:49)
[2017-02-24] MEDS: MEGESTROL (40 MG/ML) 10ML CUP PO SCH ×2 (08:49→21:00)
[2017-02-24] MEDS: FUROSEMIDE 40 MG TAB PO SCH (08:49)
[2017-02-24] MEDS: ALBUTEROL/IPRATROPIUM (NEB) 3 ML AMP HHN SCH ×4 (09:00→21:00)
[2017-02-24] MEDS ORDERED: ESCITALOPRAM 10 MG TAB PO SCH (09:00)
[2017-02-24] MEDS: TRIAMCINOLONE ACET 0.1% 15 GM OINT TOP SCH ×2 (09:00→21:29)
[2017-02-24] MEDS: SALMETEROL/FLUTICASONE 250/50 INHA INH SCH ×2 (09:27→21:06)
[2017-02-24] MEDS: ESCITALOPRAM 10 MG TAB PO SCH (21:06)
--- NOTE | 2017-02-24 21:50 | HP ---
DATE OF ADMISSION: 02/23/2017 HISTORY OF PRESENT ILLNESS: For detailed history, please refer to my earlier records. The patient is the patient is a 61-year-old gentleman who was transferred from acute rehab unit to the telemetry floor as the patient has been getting increasingly weak, with some chills and also some lower GI bleeding with severe thrombocytopenia. The patient admitted initially almost a month ago with severe anasarca and had developed worsening renal failure requiring hemodialysis. The patient was transferred to the rehab unit where he has complained of increasing weakness and had a fall 2 days prior to this. He has been having very poor p.o. intake with some nausea, no vomiting. Frequent stools and tarry stools for the last several days. REVIEW OF SYSTEMS: HEAD: No history of strokes. No history of any head trauma. EYES: No blurry vision or glaucoma. ENT: Noncontributory. NECK: No history of thyroid disease. CHEST: No bronchitis or asthma. The patient does not smoke. HEART: No PND or orthopnea. The patient does have history of CHF. Workup for coronary artery disease to be done when the patient is more stable from medical standpoint. GASTROINTESTINAL: History of hepatic cirrhosis with portal hypertension secondary to hep C, which has been treated. Hep C acquired by transfusion. GENITOURINARY: No dysuria, hematuria, or kidney stones. INFECTIOUS DISEASE: The patient during the course of hospitalization also had methicillin sensitive Staph bacteremia treated. ENDOCRINE: If the patient also has diabetes mellitus type 2, morbid obesity and hypertension. He also has severe sleep apnea. PHYSICAL EXAMINATION: GENERAL APPEARANCE: The patient was found to be lethargic. VITAL SIGNS: Temperature 98.5, blood pressure 151/73, heart rate 80 per minute, regular. HEENT: Moderate pallor without cyanosis or icterus. Tongue is coated, dry. No exudates noted over the oropharynx. NECK: Supple. NECK: JVD is not increased. CHEST: Clinically clear anteriorly. HEART: S1, S2. No definite gallops. ABDOMEN: Obese. No definite tenderness. No hepatosplenomegaly. EXTREMITIES: Minimal edema. Taylor's sign is negative. The patient also had a AV fistula placement right upper arm and right internal jugular PermCath. CULTURES: Urine cultures done on 02/22/2017 showed Pseudomonas 50-60,000, gram-negative rods 10 to 20,000 yeast 100,000. IMPRESSION: 1. Recent altered mental status. Concern about underlying sepsis, urinary tract infection. 2. Severe thrombocytopenia. Platelet count 41,000 yesterday with anemia. 3. Gastrointestinal (GI) bleed. Etiology undetermined. 4. Cirrhosis with portal hypertension, secondary to hep C. 5. Status post prior hepatic encephalopathy. We will recheck the ammonia levels. 6. Diabetes mellitus type 2, well controlled. 7. Acute on chronic renal failure. 8. Obstructive sleep apnea. 9. Underlying major depression. The patient has been started on low-dose Lexapro. PLAN: We will request Dr. Yadav from ID standpoint regarding antibiotic coverage and request Dr. Arteaga for GI follow up. Continue recommendations per Dr. Castro. Continue insulin management and encourage p.o. intake. Initiate physical therapy when patient is more functionally improved. Dictated By: Ivan Brice MD /[email or web address]/preston /Document#: [id number]
[2017-02-25] VITALS (11 sets, daily range): BP systolic 132–146; BP diastolic 64–76; PULSE 88–98; RESP 18–20
[2017-02-25] MEDS: ACCU-CHEK XX SCH (01:33)
[2017-02-25] MEDS: PANTOPRAZOLE (EC) 40 MG TAB PO SCH (06:29)
--- NOTE | 2017-02-25 07:54 | CONS ---
Date/Time of Note Date/Time of Note DATE: 02/25/17 TIME: 07:35 Assessment/Plan Assessment/Plan Chief Complaint/Hosp Course 1)GI bleed likely a combination of coags being off due to cirrhosis, renal dsyfunction and low platelets however pt has known ascites and with GI bleed he is at increased risk for SBP and prophylaxis would be recommended will start po cipro for this 2) thrombocytopenia, worsened by vanco followed by zyvox this will likely start to recover in the next few days continue off zyvox 3)cirrhosis with ascites and GI bleeding SBP prophylaxis is recommended will start cipro 500mg QD for 7 days then can change to bactrim or cipro for further prophylaxis 4) ?UTI pt has no fever or elevated WBC unclear if he has an active infection but because of GI bleed will treat for SBP prophylaxis with cipro instead of ceftriaxone 5) hx of Hep c and successfully treated 6) DM 7) hx of gout Problems: Consultation Date/Type/Reason Admit Date/Time Feb 23, 2017 at 17:22 Date of Consultation: Feb 25, 2017 Type of Consultation: ID Hx of Present Illness pt transferred from rehab due to weakness, chills and GI bleed he was having up to 7-8 bloody stools/tarry stools a day according to the no V, SOB, cough pt has a little dysuria but this has been present since he start HD he was on vanco and then switched to zyvox for VRE in the urine on 02/13-02/21 no abd pain no chills since transferred from rehab no fevers Past Surgical History Past Surgical Hx: appendectomy, other Social History Smoking Status: Former smoker Exam/Review of Systems Vital Signs Vitals Vital Signs Date Time Temp Pulse Resp B/P Pulse Ox O2 Delivery O2 Flow Rate FiO2 02/25/17 04:16 88 02/25/17 04:07 98.7 18 141/71 95 02/23/17 17:47 Nasal Cannula 2.0 Intake and Output 02/24/17 02/24/17 02/25/17 15:00 23:00 07:00 Intake Total 500 ml 700 ml 500 ml Output Total 2500 ml Balance -2000 ml 700 ml 500 ml Exam Constitutional: alert, oriented Head: normocephalic ENMT: mucosa pink and moist Respiratory: clear to auscultation Cardiovascular: regular rate and rhythm Gastrointestinal: non-tender, other (no pain over bladder), soft Results Result Diagram: 02/23/17204602/23/172046 Results 24 hrs Laboratory Tests Test 02/24/17 08:02 02/24/17 12:23 02/24/17 17:03 02/24/17 21:01 Bedside Glucose 138 162 182 152 Medications Medications Current Medications Acetaminophen (Tylenol Tab) 500 mg Q6H PRN PO PAIN AND OR ELEVATED TEMP; Start 02/23/17 at 19:00 Epoetin Sean (Epogen (Esrd)) 10,000 units MoWeFr@17 SC ; Start 02/25/17 at 17:00 Furosemide (Lasix) 40 mg DAILY PO Last administered on 02/24/17 08:49; Admin Dose 40 MG; Start 02/24/17 at 09:00 Hydroxyzine HCl (Atarax) 10 mg Q6H PRN PO ITCHING; Start 02/23/17 at 19:00 Lactulose (Enulose) 30 gm HS PO ; Start 02/23/17 at 21:00; Status Future Hold Lactulose (Enulose) 20 gm Q6 PRN PO CONSTIPATION; Start 02/23/17 at 19:00 Megestrol Acetate (Megace Susp) 400 mg BID PO Last administered on 02/23/17 21 :00; Admin Dose 400 MG; Start 02/23/17 at 21:00 Multivitamins Therapeutic (Theragran) 1 tab DAILY PO Last administered on 08:49; Admin Dose 1 TAB; Start 02/24/17 at 09:00 Nifedipine (Procardia Xl) 30 mg DAILY PO Last administered on 02/24/17 08:49; Admin Dose 30 MG; Start 02/24/17 at 09:00 Nitroglycerin (Nitroglycerin (Sl Tab) 0.4 Mg) 1 tab Q5M PRN SL ANGINA; Start at 19:00 Ondansetron HCl (Zofran Inj) 4 mg Q4H PRN IV NAUSEA AND/OR VOMITING; Start at 19:00 Pantoprazole (Protonix Tab) 40 mg DAILY@06 PO Last administered on 02/25/17 06 :29; Admin Dose 40 MG; Start 02/24/17 at 06:00 Promethazine HCl/ Dextromethorphan (Phenergan-Dm) 10 ml TID PRN PO COUGH; Start 02/23/17 at 19:00 Salmeterol Xinafoate/ Fluticasone (Advair 250/50 Diskus) 1 inh BID INH Last administered on 02/24/17 21:06; Admin Dose 1 INH; Start 02/23/17 at 21:00 Triamcinolone Acetonide (Kenalog 0.1% Oint) 1 applic BID TOP Last administered on 02/24/17 21:29; Admin Dose 1 APPLIC; Start 02/23/17 at 21:00 Diagnostic Test (Pha) (Accu-Chek) 1 ea 02 XX ; Start 02/24/17 at 02:00 Escitalopram Oxalate (Lexapro) 10 mg QHS PO Last administered on 02/24/17 21: 06; Admin Dose 10 MG; Start 02/24/17 at 21:00 DANYEL HART MD Feb 25, 2017 07:51
[2017-02-25] MEDS ORDERED: CIPROFLOXACIN 500 MG TAB PO ONE (08:00)
[2017-02-25] MEDS: INSULIN ASPART [NOVOLOG] 3 ML PEN SC SCH ×4 (08:21→21:40)
--- NOTE | 2017-02-25 08:34 | CONS ---
Date/Time of Note Date/Time of Note DATE: 02/25/17 TIME: 08:30 Assessment/Plan Assessment/Plan Chief Complaint/Hosp Course 1. End-stage renal disease now requiring maintenance hemodialysis Thursday. Patient was dialyzed yesterday and 2 L of fluid was removed. He is due for dialysis tomorrow. I will order hemodialysis for tomorrow. 2. Cirrhosis of the liver, he has a history of hepatitis C which was treated. He does have cirrhosis and has had hepatic encephalopathy which is now treated. His last ammonia level was normal. He is on lactulose. 3. Fluid overloaded now much improved 4. Anemia 5. Diabetes mellitus 6. Morbid obesity 7. Sleep apnea 8. Urinary tract infection 9. Congestive heart failure Problems: Consultation Date/Type/Reason Admit Date/Time Feb 23, 2017 at 17:22 Initial Consult Date 02/25/17 Type of Consultation: ID 24 HR Interval Summary Free Text/Dictation Patient is feeling better today. He denies any nausea vomiting chest pain or shortness of breath. He seems more awake. He is eating. Constitutional: improved, no complaints Exam/Review of Systems Vital Signs Vitals Vital Signs Date Time Temp Pulse Resp B/P Pulse Ox O2 Delivery O2 Flow Rate FiO2 02/25/17 07:36 98.2 63 19 132/71 96 02/23/17 17:47 Nasal Cannula 2.0 Intake and Output 02/24/17 02/24/17 02/25/17 15:00 23:00 07:00 Intake Total 500 ml 700 ml 500 ml Output Total 2500 ml Balance -2000 ml 700 ml 500 ml Exam Constitutional: alert, frail, obese, oriented Respiratory: clear to auscultation, normal air movement Cardiovascular: regular rate and rhythm Gastrointestinal: non-tender, soft Musculoskeletal: nl extremities to inspection Results Result Diagram: 02/23/17204602/23/172046 Results 24 hrs Laboratory Tests Test 02/24/17 12:23 02/24/17 17:03 02/24/17 21:01 02/25/17 08:15 Bedside Glucose 162 182 152 174 Medications Medications Current Medications Acetaminophen (Tylenol Tab) 500 mg Q6H PRN PO PAIN AND OR ELEVATED TEMP; Start 02/23/17 at 19:00 Epoetin Sean (Epogen (Esrd)) 10,000 units MoWeFr@17 SC ; Start 02/25/17 at 17:00 Furosemide (Lasix) 40 mg DAILY PO Last administered on 02/24/17 08:49; Admin Dose 40 MG; Start 02/24/17 at 09:00 Hydroxyzine HCl (Atarax) 10 mg Q6H PRN PO ITCHING; Start 02/23/17 at 19:00 Lactulose (Enulose) 30 gm HS PO ; Start 02/23/17 at 21:00; Status Future Hold Lactulose (Enulose) 20 gm Q6 PRN PO CONSTIPATION; Start 02/23/17 at 19:00 Megestrol Acetate (Megace Susp) 400 mg BID PO Last administered on 02/23/17 21 :00; Admin Dose 400 MG; Start 02/23/17 at 21:00 Multivitamins Therapeutic (Theragran) 1 tab DAILY PO Last administered on 08:49; Admin Dose 1 TAB; Start 02/24/17 at 09:00 Nifedipine (Procardia Xl) 30 mg DAILY PO Last administered on 02/24/17 08:49; Admin Dose 30 MG; Start 02/24/17 at 09:00 Nitroglycerin (Nitroglycerin (Sl Tab) 0.4 Mg) 1 tab Q5M PRN SL ANGINA; Start at 19:00 Ondansetron HCl (Zofran Inj) 4 mg Q4H PRN IV NAUSEA AND/OR VOMITING; Start at 19:00 Pantoprazole (Protonix Tab) 40 mg DAILY@06 PO Last administered on 02/25/17 06 :29; Admin Dose 40 MG; Start 02/24/17 at 06:00 Promethazine HCl/ Dextromethorphan (Phenergan-Dm) 10 ml TID PRN PO COUGH; Start 02/23/17 at 19:00 Salmeterol Xinafoate/ Fluticasone (Advair 250/50 Diskus) 1 inh BID INH Last administered on 02/24/17 21:06; Admin Dose 1 INH; Start 02/23/17 at 21:00 Triamcinolone Acetonide (Kenalog 0.1% Oint) 1 applic BID TOP Last administered on 02/24/17 21:29; Admin Dose 1 APPLIC; Start 8/14/17 at 21:00 Diagnostic Test (Pha) (Accu-Chek) 1 XX ; Start 02/24/17 at 02:00 Escitalopram Oxalate (Lexapro) 10 mg QHS PO Last administered on 02/24/17t 21: 06; Admin Dose 10 MG; Start 02/24/17 at 21:00 Ciprofloxacin (Cipro) 500 mg DAILY@06 PO ; Start 02/25/17 at 09:00 ANA MELENDEZ MD Feb 25, 2017 08:34
[2017-02-25 08:39] LABS: ABNORMAL IP MESSAGE 1; BASOPHILS % 0.8 % (0.0-2.0); EOSINOPHILS # 0.2 10^3/ul (0.0-0.5); EOSINOPHILS % 3.8 % (0.0-7.0); HEMATOCRIT 27.3 % (42.0-52.0); HEMOGLOBIN 8.6 g/dl (14.0-18.0); LYMPHOCYTES # 1.7 10^3/ul (0.8-2.9); LYMPHOCYTES % 31.4 % (15.0-51.0); MEAN CORPUSCULAR HEMOGLOBIN 26.5 pg (29.0-33.0); MEAN CORPUSCULAR HGB CONC 31.5 g/dl (32.0-37.0); MONOCYTE # 0.7 10^3/ul (0.3-0.9); MONOCYTES % 13.4 % (0.0-11.0); NEUTROPHILS % 50.4 % (39.0-77.0); POSITIVE DIFF @See below; RED BLOOD COUNT 3.25 10^6/ul (4.70-6.10); RED CELL DISTRIBUTION WIDTH 17.9 % (11.5-14.5); WHITE BLOOD COUNT 5.3 10^3/ul (4.8-10.8)
[2017-02-25] MEDS: ALBUTEROL/IPRATROPIUM (NEB) 3 ML AMP HHN SCH ×4 (08:45→21:00)
[2017-02-25 08:53] LABS: PLATELET COUNT 27 10^3/UL (140-415)
[2017-02-25] MEDS: MEGESTROL (40 MG/ML) 10ML CUP PO SCH ×2 (09:00→21:00)
[2017-02-25] MEDS: TRIAMCINOLONE ACET 0.1% 15 GM OINT TOP SCH ×2 (09:00→21:30)
[2017-02-25 09:06] LABS: CALCIUM 8.7 mg/dl (8.4-10.2); CREATININE 6.69 mg/dl (0.61-1.24); POTASSIUM 4.2 mmol/L (3.5-5.1)
[2017-02-25] MEDS: CIPROFLOXACIN 500 MG TAB PO SCH (09:22)
[2017-02-25] MEDS: MULTIVITAMINS THERAPEUTIC TAB PO SCH (09:22)
[2017-02-25] MEDS: NIFEdipine (XL) 30 MG TAB PO SCH (09:22)
[2017-02-25] MEDS: SALMETEROL/FLUTICASONE 250/50 INHA INH SCH ×2 (09:25→21:27)
[2017-02-25] MEDS: FUROSEMIDE 40 MG TAB PO SCH (09:26)
--- NOTE | 2017-02-25 15:24 | PN ---
DATE: 02/25/2017 SUBJECTIVE DATA: The patient is awake, more responsive today. He denies any abdominal pains and denies any chest discomfort. OBJECTIVE DATA: VITAL SIGNS: The patient is awake, temperature 99, blood pressure 136/65, O2 saturation 90 percent on room air. HEENT: Head normocephalic. No pallor, cyanosis, or icterus. CHEST: Clinically clear. HEART: S1, S2. No rubs or gallops. ABDOMEN: Soft, nontender. No hepatosplenomegaly. EXTREMITIES: Trace edema. Homans negative. LABORATORY: WBC count 5.3, hematocrit 27.3, platelet count 27,000. Sodium 134.2, BUN 42, creatinine 6.69, glucose 174, 191 today. Patient's overall appetite is slightly improved. He has not had a bowel movement since this morning. He had black stools for the last several days. The patient has been started on Cipro 500 q.daily for 7 days for SBP prophylaxis by Dr. Yadav. IMPRESSION: 1. Low grade gastrointestinal bleed with cirrhosis and portal hypertension. 2. Severe thrombocytopenia with anemia. 3. End-stage renal disease, on hemodialysis maintenance 3 days a week. 4. Congestive heart failure, improved. 5. Diabetes mellitus type 2, metabolic syndrome. Stable. 6. Morbid obesity. 7. Obstructive sleep apnea. 8. Urinary tract infection with Pseudomonas and yeast, query colonized. PLAN: Will continue Nephrology recommendation by Dr. Castro. Infectious Disease recommendation by Dr. Yadav. I have requested Dr. Arteaga to evaluate the patient from GI standpoint. I have also requested Dr. Fox to evaluate the patient for severe thrombocytopenia, which is likely secondary to hypersplenism. Will also consider heparin induced thrombocytopenia. Will also give 2 units of platelets. Observe for further bleeding and replace all BC losses accordingly. Will also request PT evaluation for transfer training. I have discussed at length with the patient and patient's and patient's sister, emphasizing the importance of physical therapy. Dictated By: Ivan Brice MD /[email or web address] /Document#: [id number]
[2017-02-25] MEDS ORDERED: LANT3I SC (16:55)
[2017-02-25] MEDS: EPOETIN 10000 UNITS/1 ML INJ (ESRD) SC SCH (17:51)
[2017-02-25 18:48] LABS: ADD UMIC YES; UR ASCORBIC ACID 20 mg/dL (NEGATIVE); UR BILIRUBIN (Dip) 1+ mg/dL (NEGATIVE); UR BLOOD (Dip) 2+ mg/dL (NEGATIVE); UR CLARITY TURBID (CLEAR); UR COLOR AMBER (YELLOW); UR GLUCOSE (Dip) NEGATIVE (NEGATIVE); UR KETONES (Dip) TRACE mg/dL (NEGATIVE); UR LEUKOCYTE ESTERASE (Dip) 3+ Leu/ul (NEGATIVE); UR MUCUS FEW /HPF (NONE SEEN); UR NITRITE (Dip) NEGATIVE (NEGATIVE); UR RBC 86 /HPF (0-5); UR SPECIFIC GRAVITY (Dip) 1.025 (1.003-1.030); UR SQUAMOUS EPITHELIAL CELL FEW /HPF (FEW); UR TOTAL PROTEIN (Dip) 3+ mg/dl (NEGATIVE); UR UROBILINOGEN (Dip) NEGATIVE (NEGATIVE)
--- NOTE | 2017-02-25 19:52 | CONS ---
Date/Time of Note Date/Time of Note DATE: 02/25/17 TIME: 19:49 Assessment/Plan Assessment/Plan Additional Assessment/Plan 1. Melena, bleeding seems to have stopped hematocrit is 27.6 stabilized 2. Cirrhosis of liver 3. Diabetes mellitus 4. End-stage kidney disease on dialysis 5. Thrombocytopenia Plan Continue PPI Monitor H&H Patient needs platelet transfusion, we should keep platelet count above 50 whenever patient is bleeding We will check PT PTT If bleeding continues then will do EGD. Consultation Date/Type/Reason Admit Date/Time Feb 23, 2017 at 17:22 Initial Consult Date 02/25/17 Type of Consultation: ID 24 HR Interval Summary Free Text/Dictation Patient passing black colored stool Exam/Review of Systems Vital Signs Vitals Vital Signs Date Time Temp Pulse Resp B/P Pulse Ox O2 Delivery O2 Flow Rate FiO2 02/25/17 16:55 84 97 02/25/17 16:19 98.8 19 137/76 02/23/17 17:47 Nasal Cannula 2.0 Intake and Output 02/24/17 02/24/17 02/25/17 15:00 23:00 07:00 Intake Total 500 ml 700 ml 500 ml Output Total 2500 ml Balance -2000 ml 700 ml 500 ml Exam Constitutional: alert, oriented, well developed Psych: nl mood/affect, no complaints Head: atraumatic, normocephalic Eyes: EOMI, PERRL, nl conjunctiva, nl lids, nl sclera ENMT: nl external ears & nose, nl lips & teeth, nl nasal mucosa & septum Neck: non-tender, supple Respiratory: clear to auscultation, normal air movement Cardiovascular: nl pulses, regular rate and rhythm Gastrointestinal: nl liver, spleen, non-tender, soft Musculoskeletal: nl extremities to inspection, nl gait and stance Extremities: normal pulses 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: CONTENT WRITER II-XII intact, nl mental status, nl speech, nl strength Skin: nl turgor, No rash or lesions Lymph: nl lymph nodes Results Result Diagram: 02/25/17 0750 02/25/17 0750 Results 24 hrs Laboratory Tests Test 02/24/17 21:01 02/25/17 07:50 02/25/17 08:15 02/25/17 11:57 Bedside Glucose 152 174 191 White Blood Count 5.3 Red Blood Count 3.25 L Hemoglobin 8.6 L Hematocrit 27.3 L Mean Corpuscular Volume 84.0 Mean Corpuscular Hemoglobin 26.5 L Mean Corpuscular Hemoglobin Concent 31.5 L Red Cell Distribution Width 17.9 H Platelet Count 27 #*L Mean Platelet Volume Neutrophils % 50.4 Lymphocytes % 31.4 Monocytes % 13.4 H Eosinophils % 3.8 Basophils % 0.8 Nucleated Red Blood Cells % 0.0 Neutrophils # (Manual) 2.7 Lymphocytes # 1.7 Monocytes # 0.7 Eosinophils # 0.2 Basophils # 0.0 Nucleated Red Blood Cells # 0.0 Sodium Level 138 Potassium Level 4.2 Chloride Level 98 Carbon Dioxide Level 27 Anion Gap 17 H Blood Urea Nitrogen 42 H Creatinine 6.69 H Glucose Level 168 Calcium Level 8.7 Ammonia 20 Test 02/25/17 17:37 02/25/17 18:00 Bedside Glucose 206 Urine Color KAYLAN Urine Clarity TURBID A Urine pH 5.0 Urine Specific [place] 1.025 Urine Ketones TRACE A Urine Nitrite NEGATIVE Urine Bilirubin 1+ H Urine Urobilinogen NEGATIVE Urine Leukocyte Esterase 3+ H Urine Microscopic RBC 86 H Urine Microscopic WBC > 182 H Urine Squamous Epithelial Cells FEW Urine Mucus FEW A Urine Hemoglobin 2+ H Urine Glucose NEGATIVE Urine Total Protein 3+ H Medications Medications Current Medications Acetaminophen (Tylenol Tab) 500 mg Q6H PRN PO PAIN AND OR ELEVATED TEMP; Start 02/23/17 at 19:00 Epoetin Sean (Epogen (Esrd)) 10,000 units MoWeFr@17 SC Last administered on 17:51; Admin Dose 10,000 UNITS; Start 02/25/17 at 17:00 Furosemide (Lasix) 40 mg DAILY PO Last administered on 02/25/17 09:26; Admin Dose 40 MG; Start 02/24/17 at 09:00 Hydroxyzine HCl (Atarax) 10 mg Q6H PRN PO ITCHING; Start 02/23/17 at 19:00 Lactulose (Enulose) 30 gm HS PO ; Start 02/23/17 at 21:00; Status Future Hold Lactulose (Enulose) 20 gm Q6 PRN PO CONSTIPATION; Start 02/23/17 at 19:00 Megestrol Acetate (Megace Susp) 400 mg BID PO Last administered on 02/23/17 21 :00; Admin Dose 400 MG; Start 02/23/17 at 21:00 Multivitamins Therapeutic (Theragran) 1 tab DAILY PO Last administered on 09:22; Admin Dose 1 TAB; Start 02/24/17 at 09:00 Nifedipine (Procardia Xl) 30 mg DAILY PO Last administered on 02/25/17 09:22; Admin Dose 30 MG; Start 02/24/17 at 09:00 Nitroglycerin (Nitroglycerin (Sl Tab) 0.4 Mg) 1 tab Q5M PRN SL ANGINA; Start at 19:00 Ondansetron HCl (Zofran Inj) 4 mg Q4H PRN IV NAUSEA AND/OR VOMITING; Start at 19:00 Pantoprazole (Protonix Tab) 40 mg DAILY@06 PO Last administered on 02/25/17 06 :29; Admin Dose 40 MG; Start 02/24/17 at 06:00 Promethazine HCl/ Dextromethorphan (Phenergan-Dm) 10 ml TID PRN PO COUGH; Start 02/23/17 at 19:00 Salmeterol Xinafoate/ Fluticasone (Advair 250/50 Diskus) 1 inh BID INH Last administered on 02/25/17 09:25; Admin Dose 1 INH; Start 02/23/17 at 21:00 Triamcinolone Acetonide (Kenalog 0.1% Oint) 1 applic BID TOP Last administered on 02/24/17 21:29; Admin Dose 1 APPLIC; Start 02/23/17 at 21:00 Diagnostic Test (Pha) (Accu-Chek) 1 ea 02 XX ; Start 02/24/17 at 02:00 Escitalopram Oxalate (Lexapro) 10 mg QHS PO Last administered on 02/24/17 21: 06; Admin Dose 10 MG; Start 02/24/17 at 21:00 Ciprofloxacin (Cipro) 500 mg DAILY@06 PO Last administered on 02/25/17 09:22; Admin Dose 500 MG; Start 02/25/17 at 09:00 Insulin Glargine (Lantus) 25 unit QHS SC ; Start 02/25/17 at 21:00 STUART STANLEY MD Feb 25, 2017 19:52
[2017-02-25] MEDS: ESCITALOPRAM 10 MG TAB PO SCH (21:27)
--- NOTE | 2017-02-25 21:29 | EN ---
Date/Time of Note Date/Time of Note DATE: 02/25/17 TIME: 21:14 Event Note Medicine Medicine Event Note Hematology consultation dictated. Pt is a 61 y/o male with history of hepatitis C which has successfully been treated. Virus no longer detectable but pt has devfeloped posthepatitic cirrhosis with portal hypertension. Pt has had mild thrombocytopenia but has now had further decrease in platelet count. Pt has had complicated hospital course since admit on 01/07. Has had worsening renal function and is now on hemodialysis. 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 Pt has also received some heparin. Last heparin was given on 02/17--received 4, 000 units. Possible etiologies for worsening thrombocytopenia include drug induced thrombocytopenia--a frequent occurrence with linezolid. Other possible causes include HIT or immune thrombocytopenia. 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 This is most likely due to the underlying liver disease but must also r/o a paraprotein which may also contribute to the deterioration of the renal function. Consumptive coagulopathies such as DIC, TTP or HUS are unlikely. There is no evidence of a MAHA on review of the peripheral blood morphology. Have requested RASHAUN, antiplatelet AB panel, HIT panel, SPEP, Urine and serum immunofixation, QIG's, Free serum kappa and lambda light chains, PT/PTT, fibrinogen, LDH, haptoglobin, B12 and folate. Copies To: CC: ANA MELENDEZ MD; JENY MORA MD, STANLEY H MD Feb 25, 2017 21:27
[2017-02-25 21:40] LABS: INR 1.23; PARTIAL THROMBOPLASTIN TIME 35.6 Sec (25.0-35.0); PROTIME 15.6 Sec (12.2-14.2); PT RATIO 1.2
[2017-02-25] MEDS: INSULIN GLARGINE [LANtus] 3 ML PEN SC SCH (21:56)
[2017-02-25 21:58] LABS: IMMUNOGLOBULIN M 68 mg/dl (40-230)
[2017-02-25 22:14] LABS: IMMUNOGLOBULIN A 932 mg/dl (70-400); IMMUNOGLOBULIN G 2805 mg/dl (700-1600)
[2017-02-25 22:57] LABS: FOLATE 11.6 ng/ml (2.8-20.0)
[2017-02-26] VITALS (22 sets, daily range): BP systolic 119–179; BP diastolic 60–179; PULSE 75–97; RESP 18–21
[2017-02-26] MEDS: ACCU-CHEK XX SCH (02:00)
[2017-02-26] MEDS: CIPROFLOXACIN 500 MG TAB PO SCH (05:32)
[2017-02-26] MEDS: PANTOPRAZOLE (EC) 40 MG TAB PO SCH ×2 (05:32→18:54)
[2017-02-26 07:01] LABS: ABNORMAL IP MESSAGE 1; BASOPHILS % 0.2 % (0.0-2.0); EOSINOPHILS # 0.2 10^3/ul (0.0-0.5); EOSINOPHILS % 3.9 % (0.0-7.0); HEMATOCRIT 21.8 % (42.0-52.0); HEMOGLOBIN 7.1 g/dl (14.0-18.0); LYMPHOCYTES # 1.3 10^3/ul (0.8-2.9); LYMPHOCYTES % 28.4 % (15.0-51.0); MEAN CORPUSCULAR HEMOGLOBIN 26.9 pg (29.0-33.0); MEAN CORPUSCULAR HGB CONC 32.6 g/dl (32.0-37.0); MEAN CORPUSCULAR VOLUME 82.6 fl (82.0-101.0); MEAN PLATELET VOLUME 10.6 fl (7.4-10.4); MONOCYTE # 0.6 10^3/ul (0.3-0.9); MONOCYTES % 12.7 % (0.0-11.0); NEUTROPHILS % 54.6 % (39.0-77.0); POSITIVE DIFF @See below; RED BLOOD COUNT 2.64 10^6/ul (4.70-6.10); RED CELL DISTRIBUTION WIDTH 17.5 % (11.5-14.5); WHITE BLOOD COUNT 4.4 10^3/ul (4.8-10.8)
[2017-02-26 07:04] LABS: PLATELET COUNT 52 10^3/UL (140-415)
[2017-02-26] MEDS ORDERED: SOD CHLORIDE 0.9% 250 ML IV* ONE (08:17)
[2017-02-26] MEDS: ALBUTEROL/IPRATROPIUM (NEB) 3 ML AMP HHN SCH ×4 (08:43→21:00)
[2017-02-26] MEDS: MEGESTROL (40 MG/ML) 10ML CUP PO SCH ×2 (09:00→20:42)
--- NOTE | 2017-02-26 09:46 | CONS ---
Date/Time of Note Date/Time of Note DATE: 02/26/17 TIME: 09:42 Assessment/Plan Assessment/Plan Chief Complaint/Hosp Course 1. End-stage renal disease now requiring maintenance hemodialysis Thursday. Patient is being dialyzed now. He has received 1 unit of blood. His hemoglobin this morning is 7.1 down from 8.6 yesterday. He has no obvious GI bleeding; however, must assume that he is bleeding. I will give a second unit of blood during dialysis this morning. 2. Cirrhosis of the liver, he has a history of hepatitis C which was treated. He does have cirrhosis and has had hepatic encephalopathy which is now treated. His last ammonia level was normal. He is on lactulose. 3. Fluid overloaded now much improved 4. Anemia 5. Diabetes mellitus 6. Morbid obesity 7. Sleep apnea 8. Urinary tract infection , treated 9. Congestive heart failure , improved Problems: Consultation Date/Type/Reason Admit Date/Time Feb 23, 2017 at 17:22 Initial Consult Date 02/25/17 Type of Consultation: ID 24 HR Interval Summary Free Text/Dictation Patient is now having a hemodialysis treatment. His hemoglobin this morning is 7.1 which is down from 8.6 yesterday. Presumed GI bleeding. He is receiving 1 unit of blood on dialysis now. Constitutional: no complaints Exam/Review of Systems Vital Signs Vitals Vital Signs Date Time Temp Pulse Resp B/P Pulse Ox O2 Delivery O2 Flow Rate FiO2 02/26/17 09:15 84 02/26/17 07:39 97.6 19 151/70 97 02/23/17 17:47 Nasal Cannula 2.0 Intake and Output 02/25/17 02/25/17 02/26/17 15:00 23:00 07:00 Intake Total 200 ml 200 ml Balance 200 ml 200 ml Exam Constitutional: frail, obese Head: normocephalic Respiratory: clear to auscultation, diminished breath sounds Cardiovascular: regular rate and rhythm Gastrointestinal: non-tender, soft Musculoskeletal: nl extremities to inspection Results Result Diagram: 02/26/17 0520 02/25/17 0750 Results 24 hrs Laboratory Tests Test 02/25/17 11:57 02/25/17 17:37 02/25/17 18:00 02/25/17 20:43 Bedside Glucose 191 206 Urine Color KAYLAN Urine Clarity TURBID A Urine pH 5.0 Urine Specific [place] 1.025 Urine Ketones TRACE A Urine Nitrite NEGATIVE Urine Bilirubin 1+ H Urine Urobilinogen NEGATIVE Urine Leukocyte Esterase 3+ H Urine Microscopic RBC 86 H Urine Microscopic WBC > 182 H Urine Squamous Epithelial Cells FEW Urine Mucus FEW A Urine Hemoglobin 2+ H Urine Glucose NEGATIVE Urine Total Protein 3+ H Prothrombin Time 15.6 H Prothrombin Time Ratio 1.2 INR International Normalized Ratio 1.23 Activated Partial Thromboplast Time 35.6 H Fibrinogen 291.0 Lactate Dehydrogenase 526 Vitamin B12 Level 977 H Folate 11.6 Immunoglobulin A 932 H Immunoglobulin G 2805 H Immunoglobulin M 68 Test 02/25/17 21:29 02/26/17 01:33 02/26/17 05:20 02/26/17 08:16 Bedside Glucose 222 H 246 H 152 White Blood Count 4.4 L Red Blood Count 2.64 L Hemoglobin 7.1 L Hematocrit 21.8 #L Mean Corpuscular Volume 82.6 Mean Corpuscular Hemoglobin 26.9 L Mean Corpuscular Hemoglobin Concent 32.6 Red Cell Distribution Width 17.5 H Platelet Count 52 #L Mean Platelet Volume 10.6 H Neutrophils % 54.6 Lymphocytes % 28.4 Monocytes % 12.7 H Eosinophils % 3.9 Basophils % 0.2 Nucleated Red Blood Cells % 0.0 Neutrophils # (Manual) 2.4 Lymphocytes # 1.3 Monocytes # 0.6 Eosinophils # 0.2 Basophils # 0.0 Nucleated Red Blood Cells # 0.0 Medications Medications Current Medications Acetaminophen (Tylenol Tab) 500 mg Q6H PRN PO PAIN AND OR ELEVATED TEMP; Start 02/23/17 at 19:00 Epoetin Sean (Epogen (Esrd)) 10,000 units MoWeFr@17 SC Last administered on 17:51; Admin Dose 10,000 UNITS; Start 02/25/17 at 17:00 Furosemide (Lasix) 40 mg DAILY PO Last administered on 02/25/17 09:26; Admin Dose 40 MG; Start 02/24/17 at 09:00 Hydroxyzine HCl (Atarax) 10 mg Q6H PRN PO ITCHING; Start 02/23/17 at 19:00 Lactulose (Enulose) 30 gm HS PO ; Start 02/23/17 at 21:00; Status Future Hold Lactulose (Enulose) 20 gm Q6 PRN PO CONSTIPATION; Start 02/23/17 at 19:00 Megestrol Acetate (Megace Susp) 400 mg BID PO Last administered on 02/23/17 21 :00; Admin Dose 400 MG; Start 02/23/17 at 21:00 Multivitamins Therapeutic (Theragran) 1 tab DAILY PO Last administered on 09:22; Admin Dose 1 TAB; Start 02/24/17 at 09:00 Nifedipine (Procardia Xl) 30 mg DAILY PO Last administered on 02/25/17 09:22; Admin Dose 30 MG; Start 02/24/17 at 09:00 Nitroglycerin (Nitroglycerin (Sl Tab) 0.4 Mg) 1 tab Q5M PRN SL ANGINA; Start at 19:00 Ondansetron HCl (Zofran Inj) 4 mg Q4H PRN IV NAUSEA AND/OR VOMITING; Start at 19:00 Pantoprazole (Protonix Tab) 40 mg DAILY@06 PO Last administered on 02/26/17 05 :32; Admin Dose 40 MG; Start 02/24/17 at 06:00 Promethazine HCl/ Dextromethorphan (Phenergan-Dm) 10 ml TID PRN PO COUGH; Start 02/23/17 at 19:00 Salmeterol Xinafoate/ Fluticasone (Advair 250/50 Diskus) 1 inh BID INH Last administered on 02/25/17 21:27; Admin Dose 1 INH; Start 02/23/17 at 21:00 Triamcinolone Acetonide (Kenalog 0.1% Oint) 1 applic BID TOP Last administered on 02/25/17 21:30; Admin Dose 1 APPLIC; Start 02/23/17 at 21:00 Diagnostic Test (Pha) (Accu-Chek) 1 ea 02 XX Last administered on 02/26/17 02: 00; Admin Dose 1 EA; Start 02/24/17 at 02:00 Escitalopram Oxalate (Lexapro) 10 mg QHS PO Last administered on 02/25/17 21: 27; Admin Dose 10 MG; Start 02/24/17 at 21:00 Ciprofloxacin (Cipro) 500 mg DAILY@06 PO Last administered on 02/26/17 05:32; Admin Dose 500 MG; Start 02/25/17 at 09:00 Insulin Glargine (Lantus) 25 unit QHS SC Last administered on 02/25/17t 21:56; Admin Dose 25 UNIT; Start 02/25/17 at 21:00 ANA MELENDEZ MD Feb 26, 2017 09:45
[2017-02-26] MEDS: INSULIN ASPART [NOVOLOG] 3 ML PEN SC SCH ×4 (09:55→20:48)
--- NOTE | 2017-02-26 10:00 | CONS ---
DATE OF ADMISSION: 02/23/2017 DATE OF CONSULTATION: 02/25/2017 REASON FOR CONSULTATION: Thrombocytopenia. Thank you very much for asking me to see this very pleasant gentleman in hematologic consultation. As you know, Mr. El is a 61-year-old male who has a history of post cirrhotic hepatitis. The patient was found to have hepatitis C in approximately 2010. The patient, however, had been ill with liver problems prior to that. The patient apparently had received blood transfusions earlier in [facility]. The patient was treated with antivirals and interferon and has been found to be free of hepatitis C virus since 2013. Despite of this, however, the patient does have cirrhosis with portal hypertension. The patient also has a history of diabetes and hypertension. More recently, however, the patient has also developed end-stage renal disease and is now on dialysis. The patient was originally admitted to [facility] on 01/07/2017. At that time, the patient had the onset of ascites. During that hospitalization, the patient also developed worsening kidney function. At the time of the admission, he had a creatinine of 2.68 and a BUN of 68. The creatinine, however, did increase so that the patient ultimately did require dialysis. The patient has for some time had mild thrombocytopenia. This has been felt to be on the basis of portal hypertension and splenic sequestration. When the patient was hospitalized originally on January 07, he had a platelet count of 140,000. During that hospitalization, eventually it dropped as low as 44,000 on 01/31/2017. The patient at that time did receive a transfusion with 2 units of platelet pheresis. His platelets did increase and by 02/09/2017 his platelet count was 110,000. The patient was transferred to acute rehab. The patient was admitted there on February 10. 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 This was on 02/11/2017. On 02/22/2017 the patient had 50,000 to 60,000 colonies of Pseudomonas and 10,000 to 20,000 colonies of Serratia. The patient was started on treatment for the VRE. He received linezolid, started on 02/13/2017 and continued until 02/21/2017. The patient during his hospitalization on the acute rehab unit became increasingly weak and also developed melanotic stools that were definitely occult blood positive. Testing for C difficile was negative. During the time in the half-way unit the patient's platelet count dropped as well. As noted, it was 116,000 when he was admitted to the half-way unit. He was transferred to the acute hospital on 02/23/2017. By that time, the patient's platelet count was 47,000. As noted, the patient had been mildly thrombocytopenic in the past. He had not required platelet transfusions until January of this year. As noted, the patient has had deteriorating renal function as well. He is now on hemodialysis. Review of the old charts reveals that in July 2015 the patient had a creatinine of 1.31 and a BUN of 13. At the same time, the patient had a total protein 17.4 with an albumin of 3 and a globulin of 4.4. Over time, the patient's renal status stayed relatively stable. On 09/17/2016, the patient's white count was 7300, hemoglobin had dropped to 7.8, hematocrit 27, and platelet count was 128,000. At that time, patient's creatinine was 1.7, BUN was 36, total protein 7.6, and globulin was 4.5. When the patient was admitted to the hospital on January 07 the creatinine was then 2.26, BUN was 39, total protein 6.8, and globulin 3.9. During the stay in the acute rehab the patient's creatinine was 5.7, BUN 27, total protein 7.5, and globulin 5. This was on admission to the acute rehab on 11/11/2016. By 11/23/2016, the creatinine was 9.56, BUN was 75. The patient is receiving dialysis 3 times per week. It should be noticed that review of the patient's hospitalizations since December 30 does demonstrate that he has received some heparin apparently with dialysis or placement of catheters. Most recently on 02/23/2017, the patient's creatinine was 7.10, BUN 24, total protein 8.3 with a globulin of 5.3. At the present time, the patient has a white count of 5300, hemoglobin 8.6, hematocrit 27.3, and platelet count today is 27,000. As noted, the patient has stools which are positive for occult blood. OTHER MEDICAL PROBLEMS: As mentioned, have included the history of type 2 diabetes mellitus as well as hypertension. There is no known history of heart disease. 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 PAST SURGICAL HISTORY: Have included an appendectomy. The patient also has had creation of AV fistula in the right upper extremity to be used for dialysis in the future. MEDICATIONS: At the present time include: 1. Insulin. 2. Erythropoietin. 3. Ciprofloxacin. 4. Lexapro. 5. Furosemide. 6. Nifedipine. 7. Pantoprazole. 8. Albuterol. 9. Megestrol. 10. Advair. ALLERGIES: THE PATIENT IS APPARENTLY ALLERGIC TO CEFTRIAXONE. PHYSICAL EXAMINATION: GENERAL: At this time reveals a well-developed but obese male who is awake but somewhat lethargic. VITAL SIGNS: Temperature 98.2, pulse 95 per minute and regular, respirations 19, blood pressure is 146/64, and pulse oximetry is 94 percent on 2 L. SKIN: No ecchymosis, no petechiae or rashes. HEENT: Normocephalic. No evidence of trauma. The pupils are equal, round, react to light and accommodation. Sclerae are not icteric. The oral mucosa and conjunctivae are pale. There are no mucosal lesions. Tongue is well papillated. There is no gingival hyperplasia. No hypertrophy of Waldeyer's ring. NECK: Supple. There is no jugular venous distention or thyroid enlargement. No carotid bruits. CHEST: Clear to auscultation and percussion. There are no rhonchi, wheezes, rales or rubs. There is a is a tunneled dialysis catheter in the right subclavicular area. HEART: Regular sinus rhythm. No S3 or S4. There is, however, a grade 3/6 systolic murmur which is heard along the left sternal border and radiates to the left axilla. BREASTS: No gynecomastia. NODES: No palpable lymphadenopathy in the lymph node-bearing area. ABDOMEN: Obese. It is difficult to determine if there is any organomegaly, although there is fullness in the left upper quadrant. EXTREMITIES: Good range of motion. No clubbing, edema, or cyanosis. There is evidence of the AV fistula in the right humeral area. LABORATORY: Peripheral smear has been reviewed. Red blood cell morphology is relatively normal in appearance, although there are multiple races of red blood cells. White blood cells are normal in number and distribution. There are no hypersegmented polys, but there are a few circulating metamyelocytes seen. There are no nucleated red blood cells. Lymphocytes are normal in number and morphology. Platelets are moderately to markedly decreased, with some large platelet forms seen. DISCUSSION: This patient has worsening thrombocytopenia. The patient usually has mild thrombocytopenia. This is most likely due to the splenic sequestration associated with the patient's portal hypertension and splenomegaly. There has been, however, his recent significant decrease in platelets. This seems to have started sometime between 02/16 and 02/21/2017. The platelet count has continued to decrease until it has reached its lower level of 27,000 today. The review of the patient's chart does demonstrate that the fallen platelets does somewhat coincide with the use of linezolid. This was started on 02/13/2017 and discontinued on 02/21/2017. This medication is frequently associated with thrombocytopenia. At the same time, the patient has received heparin on a few occasions. One must consider the possibility of a heparin- induced thrombocytopenia. His last exposure, however, was on 02/13/2017. As noted, the patient does have cirrhosis with portal hypertension and splenomegaly, which has accounted for at least some portion of the patient's thrombocytopenia. Of some concern, however, is the fact that the patient has increased globulin. Although this is likely related to his liver disease, I feel we must consider the possibility of a paraprotein, which may in fact contribute to the patient's worsening kidney function. I have taken the liberty at this time of requesting various studies, including an RASHAUN, anti-platelet antibodies as well as heparin-associated platelet antibodies. Will also obtain a serum protein electrophoresis, immunofixation, quantitative immunoglobulins as well as a urine fixation. We will also request a quantitative serum free kappa and lambda light chains. If the thrombocytopenia is related to the previous use of linezolid, I would expect recovery of platelets in the next few days. Certainly, if there is evidence of heparin-associated anti- platelet antibodies, heparin must be avoided as well. I should correct the previous statement. I have noted that the patient actually did receive heparin last on 02/17/2017. I have also obtained a pro time, PTT, and a fibrinogen, although I do not see any evidence of a consumptive coagulopathy such as DIC, TTP or hemolytic uremic syndrome. There is no evidence of a microangiopathic hemolytic process which may be associated with subsequent consumptive coagulopathy. I will obtain a haptoglobin and LDH as well as a bilirubin total and direct, as well. Once again, thank you very much for the opportunity of participating in the medical care of this very pleasant patient. I will be happy to follow this patient with you and assist in his hematologic evaluation and follow up as necessary. Dictated By: Jh Fox MD /[email or web address] /Document#: [id number]
[2017-02-26] MEDS: MULTIVITAMINS THERAPEUTIC TAB PO SCH (12:09)
[2017-02-26] MEDS: SALMETEROL/FLUTICASONE 250/50 INHA INH SCH ×2 (12:09→20:42)
[2017-02-26] MEDS: FUROSEMIDE 40 MG TAB PO SCH (12:09)
[2017-02-26] MEDS: TRIAMCINOLONE ACET 0.1% 15 GM OINT TOP SCH ×2 (12:10→20:48)
--- NOTE | 2017-02-26 14:44 | PN ---
Date/Time of Note Date/Time of Note DATE: 02/26/17 TIME: 14:36 Assessment/Plan VTE Prophylaxis VTE Prophylaxis Intervention: other (thrombocytopenia) Lines/Catheters IV Catheter Type (from Nrs): PICC Line Central line still needed: Yes Urinary Cath still in place: No Assessment/Plan Assessment/Plan Plt count is up to 52 but platelet transfusion was given last night. Melena noted but he is now being dialyzed and plt count is higher, so hopefully that will subside as the bowel is cleared. We will monitor counts but if this is due to linezolid, the counts may improve over the next several days. Also note that the coag studies were good. SPEP is pending. Subjective 24 Hr Interval Summary Free Text/Dictation Pt is awake and alert. He said that he had melena yesterday and that platelets were given last night and RBC's given this morning. Exam/Review of Systems Vital Signs Vitals Vital Signs Date Time Temp Pulse Resp B/P Pulse Ox O2 Delivery O2 Flow Rate FiO2 02/26/17 12:00 90 02/26/17 11:50 98.1 20 142/72 97 02/23/17 17:47 Nasal Cannula 2.0 Intake and Output 02/25/17 02/25/17 02/26/17 15:00 23:00 07:00 Intake Total 200 ml 200 ml Balance 200 ml 200 ml Exam Constitutional: alert, oriented Head: normocephalic Eyes: other (pallor) Neck: supple Respiratory: clear to auscultation Cardiovascular: regular rate and rhythm, systolic murmur (3/6) Gastrointestinal: soft Results Result Diagram: 02/26/17 0520 02/25/17 0750 Results 24 hrs Laboratory Tests Test 02/25/17 17:37 02/25/17 18:00 02/25/17 20:43 02/25/17 21:29 Bedside Glucose 206 222 H Urine Color KAYLAN Urine Clarity TURBID A Urine pH 5.0 Urine Specific [place] 1.025 Urine Ketones TRACE A Urine Nitrite NEGATIVE Urine Bilirubin 1+ H Urine Urobilinogen NEGATIVE Urine Leukocyte Esterase 3+ H Urine Microscopic RBC 86 H Urine Microscopic WBC > 182 H Urine Squamous Epithelial Cells FEW Urine Mucus FEW A Urine Hemoglobin 2+ H Urine Glucose NEGATIVE Urine Total Protein 3+ H Prothrombin Time 15.6 H Prothrombin Time Ratio 1.2 INR International Normalized Ratio 1.23 Activated Partial Thromboplast Time 35.6 H Fibrinogen 291.0 Lactate Dehydrogenase 526 Vitamin B12 Level 977 H Folate 11.6 Immunoglobulin A 932 H Immunoglobulin G 2805 H Immunoglobulin M 68 Test 02/26/17 01:33 02/26/17 05:20 02/26/17 08:16 02/26/17 11:32 Bedside Glucose 246 H 152 166 White Blood Count 4.4 L Red Blood Count 2.64 L Hemoglobin 7.1 L Hematocrit 21.8 #L Mean Corpuscular Volume 82.6 Mean Corpuscular Hemoglobin 26.9 L Mean Corpuscular Hemoglobin Concent 32.6 Red Cell Distribution Width 17.5 H Platelet Count 52 #L Mean Platelet Volume 10.6 H Neutrophils % 54.6 Lymphocytes % 28.4 Monocytes % 12.7 H Eosinophils % 3.9 Basophils % 0.2 Nucleated Red Blood Cells % 0.0 Neutrophils # (Manual) 2.4 Lymphocytes # 1.3 Monocytes # 0.6 Eosinophils # 0.2 Basophils # 0.0 Nucleated Red Blood Cells # 0.0 Medications Medications Current Medications Acetaminophen (Tylenol Tab) 500 mg Q6H PRN PO PAIN AND OR ELEVATED TEMP; Start 02/23/17 at 19:00 Epoetin Sean (Epogen (Esrd)) 10,000 units MoWeFr@17 SC Last administered on 17:51; Admin Dose 10,000 UNITS; Start 02/25/17 at 17:00 Furosemide (Lasix) 40 mg DAILY PO Last administered on 02/26/17 12:09; Admin Dose 40 MG; Start 02/24/17 at 09:00 Hydroxyzine HCl (Atarax) 10 mg Q6H PRN PO ITCHING; Start 02/23/17 at 19:00 Lactulose (Enulose) 30 gm HS PO ; Start 02/23/17 at 21:00; Status Future Hold Lactulose (Enulose) 20 gm Q6 PRN PO CONSTIPATION; Start 02/23/17 at 19:00 Megestrol Acetate (Megace Susp) 400 mg BID PO Last administered on 02/23/17 21 :00; Admin Dose 400 MG; Start 02/23/17 at 21:00 Multivitamins Therapeutic (Theragran) 1 tab DAILY PO Last administered on 12:09; Admin Dose 1 TAB; Start 02/24/17 at 09:00 Nifedipine (Procardia Xl) 30 mg DAILY PO Last administered on 02/25/17 09:22; Admin Dose 30 MG; Start 02/24/17 at 09:00 Nitroglycerin (Nitroglycerin (Sl Tab) 0.4 Mg) 1 tab Q5M PRN SL ANGINA; Start at 19:00 Ondansetron HCl (Zofran Inj) 4 mg Q4H PRN IV NAUSEA AND/OR VOMITING; Start at 19:00 Pantoprazole (Protonix Tab) 40 mg DAILY@06 PO Last administered on 02/26/17 05 :32; Admin Dose 40 MG; Start 02/24/17 at 06:00 Promethazine HCl/ Dextromethorphan (Phenergan-Dm) 10 ml TID PRN PO COUGH; Start 02/23/17 at 19:00 Salmeterol Xinafoate/ Fluticasone (Advair 250/50 Diskus) 1 inh BID INH Last administered on 02/26/17 12:09; Admin Dose 1 INH; Start 02/23/17 at 21:00 Triamcinolone Acetonide (Kenalog 0.1% Oint) 1 applic BID TOP Last administered on 02/26/17 12:10; Admin Dose 1 APPLIC; Start 02/23/17 at 21:00 Diagnostic Test (Pha) (Accu-Chek) 1 ea 02 XX Last administered on 02/26/17 02: 00; Admin Dose 1 EA; Start 02/24/17 at 02:00 Escitalopram Oxalate (Lexapro) 10 mg QHS PO Last administered on 02/25/17 21: 27; Admin Dose 10 MG; Start 02/24/17 at 21:00 Ciprofloxacin (Cipro) 500 mg DAILY@06 PO Last administered on 02/26/17 05:32; Admin Dose 500 MG; Start 02/25/17 at 09:00 Insulin Glargine (Lantus) 25 unit QHS SC Last administered on 02/25/17 21:56; Admin Dose 25 UNIT; Start 02/25/17 at 21:00 NICOLE REID MD Feb 26, 2017 14:44
[2017-02-26 16:24] LABS: INR 1.22; PROTIME 15.5 Sec (12.2-14.2); PT RATIO 1.2
[2017-02-26] MEDS: NIFEdipine (XL) 30 MG TAB PO SCH (18:16)
--- NOTE | 2017-02-26 18:31 | CONS ---
Date/Time of Note Date/Time of Note DATE: 02/26/17 TIME: 18:29 Assessment/Plan Assessment/Plan Additional Assessment/Plan Assessment/Plan Additional Assessment/Plan 1. Melena, bleeding seems to have stopped hematocrit is 27.6 stabilized 2. Cirrhosis of liver 3. Diabetes mellitus 4. End-stage kidney disease on dialysis 5. Thrombocytopenia Plan Continue PPI Monitor H&H Patient needs platelet transfusion, we should keep platelet count above 50 whenever patient is bleeding We will check PT PTT If bleeding continues then will do EGD. Stat H&H We will increase the dose of protonix Monitor H&H closely Consultation Date/Type/Reason Admit Date/Time Feb 23, 2017 at 17:22 Initial Consult Date 02/25/17 Type of Consultation: ID [id number] HR Interval Summary Free Text/Dictation Patient is more awake had one bowel movement which was black in color. Exam/Review of Systems Vital Signs Vitals Vital Signs Date Time Temp Pulse Resp B/P Pulse Ox O2 Delivery O2 Flow Rate FiO2 02/26/17 16:00 82 02/26/17 15:55 98.7 21 134/61 98 02/23/17 17:47 Nasal Cannula 2.0 Intake and Output 02/25/17 02/25/17 02/26/17 15:00 23:00 07:00 Intake Total 200 ml 200 ml Balance 200 ml 200 ml Exam Constitutional: alert, oriented, well developed Psych: nl mood/affect, no complaints Head: atraumatic, normocephalic Eyes: EOMI, PERRL, nl conjunctiva, nl lids, nl sclera ENMT: nl external ears & nose, nl lips & teeth, nl nasal mucosa & septum Neck: non-tender, supple Respiratory: clear to auscultation, normal air movement Cardiovascular: nl pulses, regular rate and rhythm Gastrointestinal: nl liver, spleen, non-tender, soft Musculoskeletal: nl extremities to inspection, nl gait and stance Extremities: normal pulses 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: FENDER FINISHER II-XII intact, nl mental status, nl speech, nl strength Skin: nl turgor, No rash or lesions Lymph: nl lymph nodes Results Result Diagram: 02/26/17 0520 02/25/17 0750 Results 24 hrs Laboratory Tests Test 02/25/17 20:43 02/25/17 21:29 02/26/17 01:33 02/26/17 05:20 Prothrombin Time 15.6 H Prothrombin Time Ratio 1.2 INR International Normalized Ratio 1.23 Activated Partial Thromboplast Time 35.6 H Fibrinogen 291.0 Lactate Dehydrogenase 526 Vitamin B12 Level 977 H Folate 11.6 Immunoglobulin A 932 H Immunoglobulin G 2805 H Immunoglobulin M 68 Bedside Glucose 222 H 246 H White Blood Count 4.4 L Red Blood Count 2.64 L Hemoglobin 7.1 L Hematocrit 21.8 #L Mean Corpuscular Volume 82.6 Mean Corpuscular Hemoglobin 26.9 L Mean Corpuscular Hemoglobin Concent 32.6 Red Cell Distribution Width 17.5 H Platelet Count 52 #L Mean Platelet Volume 10.6 H Neutrophils % 54.6 Lymphocytes % 28.4 Monocytes % 12.7 H Eosinophils % 3.9 Basophils % 0.2 Nucleated Red Blood Cells % 0.0 Neutrophils # (Manual) 2.4 Lymphocytes # 1.3 Monocytes # 0.6 Eosinophils # 0.2 Basophils # 0.0 Nucleated Red Blood Cells # 0.0 Test 02/26/17 08:16 02/26/17 11:32 02/26/17 15:00 02/26/17 18:09 Bedside Glucose 152 166 194 Prothrombin Time 15.5 H Prothrombin Time Ratio 1.2 INR International Normalized Ratio 1.22 Medications Medications Current Medications Acetaminophen (Tylenol Tab) 500 mg Q6H PRN PO PAIN AND OR ELEVATED TEMP; Start 02/23/17 at 19:00 Epoetin Sean (Epogen (Esrd)) 10,000 units MoWeFr@17 SC Last administered on 17:51; Admin Dose 10,000 UNITS; Start 02/25/17 at 17:00 Furosemide (Lasix) 40 mg DAILY PO Last administered on 02/26/17 12:09; Admin Dose 40 MG; Start 02/24/17 at 09:00 Hydroxyzine HCl (Atarax) 10 mg Q6H PRN PO ITCHING; Start 02/23/17 at 19:00 Lactulose (Enulose) 30 gm HS PO ; Start 02/23/17 at 21:00; Status Future Hold Lactulose (Enulose) 20 gm Q6 PRN PO CONSTIPATION; Start 02/23/17 at 19:00 Megestrol Acetate (Megace Susp) 400 mg BID PO Last administered on 02/23/17 21 :00; Admin Dose 400 MG; Start 02/23/17 at 21:00 Multivitamins Therapeutic (Theragran) 1 tab DAILY PO Last administered on 12:09; Admin Dose 1 TAB; Start 02/24/17 at 09:00 Nifedipine (Procardia Xl) 30 mg DAILY PO Last administered on 02/26/17 18:16; Admin Dose 30 MG; Start 02/24/17 at 09:00 Nitroglycerin (Nitroglycerin (Sl Tab) 0.4 Mg) 1 tab Q5M PRN SL ANGINA; Start at 19:00 Ondansetron HCl (Zofran Inj) 4 mg Q4H PRN IV NAUSEA AND/OR VOMITING; Start at 19:00 Pantoprazole (Protonix Tab) 40 mg DAILY@06 PO Last administered on 02/26/17 05 :32; Admin Dose 40 MG; Start 02/24/17 at 06:00 Promethazine HCl/ Dextromethorphan (Phenergan-Dm) 10 ml TID PRN PO COUGH; Start 02/23/17 at 19:00 Salmeterol Xinafoate/ Fluticasone (Advair 250/50 Diskus) 1 inh BID INH Last administered on 02/26/17 12:09; Admin Dose 1 INH; Start 02/23/17 at 21:00 Triamcinolone Acetonide (Kenalog 0.1% Oint) 1 applic BID TOP Last administered on 02/26/17 12:10; Admin Dose 1 APPLIC; Start 02/23/17 at 21:00 Diagnostic Test (Pha) (Accu-Chek) 1 ea 02 XX Last administered on 02/26/17 02: 00; Admin Dose 1 EA; Start 02/24/17 at 02:00 Escitalopram Oxalate (Lexapro) 10 mg QHS PO Last administered on 02/25/17 21: 27; Admin Dose 10 MG; Start 02/24/17 at 21:00 Ciprofloxacin (Cipro) 500 mg DAILY@06 PO Last administered on 02/26/17 05:32; Admin Dose 500 MG; Start 02/25/17 at 09:00 Insulin Glargine (Lantus) 25 unit QHS SC Last administered on 02/25/17 21:56; Admin Dose 25 UNIT; Start 02/25/17 at 21:00 STUART STANLEY MD Feb 26, 2017 18:31
[2017-02-26 20:10] LABS: HEMATOCRIT 26.9 % (42.0-52.0); HEMOGLOBIN 8.8 g/dl (14.0-18.0)
[2017-02-26] MEDS: ESCITALOPRAM 10 MG TAB PO SCH (20:42)
[2017-02-26] MEDS: INSULIN GLARGINE [LANtus] 3 ML PEN SC SCH (20:47)
--- NOTE | 2017-02-26 20:56 | PN ---
DATE: 02/26/2017 SUBJECTIVE: Patient complains of mild pain in the lower extremities. Still has very poor appetite. No fever or chills. No dysuria. Dr. Jh Fox's hematology consultation and recommendations greatly appreciated. PHYSICAL EXAM: GENERAL: Patient is awake, alert. VITAL SIGNS: Temperature is 98.1. Blood pressure is 142/70. Pulse is 92 per minute. NECK: JVD is not increased. CHEST: Clear anteriorly. HEART: S1, S2. No murmurs, rubs, or gallops. EXTREMITIES: Trace edema. Homans negative. LABORATORY: WBC count 4.4, hematocrit 21.8. Glucose 152 and 166. IMPRESSION: 1. Thrombocytopenia, etiology undetermined. Query immune mediated. 2. Acute on chronic renal failure. 3. Cirrhosis of the liver with hepatitis C, status post encephalopathy. 4. Congestive heart failure. 5. Anemia, severe. 6. Diabetes mellitus type 2, well controlled. 7. Morbid obesity. 8. Obstructive sleep apnea. 9. Urinary tract infection, treated. PLAN: Will continue hematology recommendations per Dr. Fox. Continue hemodialysis per Dr. Castro. PT evaluation to increase mobility. Dictated By: Ivan Brice MD /[email or web address] /Document#: [id number]
[2017-02-27] VITALS (12 sets, daily range): BP systolic 114–158; BP diastolic 67–86; PULSE 84–97; RESP 18
[2017-02-27 01:42] LABS: PROTEIN, TOTAL 7.2 g/dL (6.1-8.1)
[2017-02-27] MEDS: ACCU-CHEK XX SCH (02:43)
[2017-02-27] MEDS: CIPROFLOXACIN 500 MG TAB PO SCH (06:13)
[2017-02-27] MEDS: ACETAMINOPHEN 500 MG TAB PO PRN (06:13)
[2017-02-27] MEDS: PANTOPRAZOLE (EC) 40 MG TAB PO SCH ×2 (06:13→18:40)
--- NOTE | 2017-02-27 06:36 | CONS ---
Date/Time of Note Date/Time of Note DATE: 02/27/17 TIME: 06:32 Assessment/Plan Assessment/Plan Chief Complaint/Hosp Course 1)GI bleed likely a combination of coags being off due to cirrhosis, renal dsyfunction and low platelets however pt has known ascites and with GI bleed he is at increased risk for SBP and prophylaxis would be recommended will start po cipro for this 02/27 - Hgb is stable but a.m. labs are pending 2) thrombocytopenia, worsened by vanco followed by zyvox this will likely start to recover in the next few days continue off zyvox 02/27 - pt got plt tx late 02/25/ early 02/26 await a.m. labs, if zyvox is the cause then platelets should recover over the weekend 3)cirrhosis with ascites and GI bleeding SBP prophylaxis is recommended will start cipro 500mg QD for 7 days then can change to bactrim or cipro for further prophylaxis 02/27 - continue with po cipro for 7 days then continue some form of prophylaxis afterwards 4) ?UTI pt has no fever or elevated WBC unclear if he has an active infection but because of GI bleed will treat for SBP prophylaxis with cipro instead of ceftriaxone 5) hx of Hep c and successfully treated 6) DM 7) hx of gout Problems: Consultation Date/Type/Reason Admit Date/Time Feb 23, 2017 at 17:22 Initial Consult Date 02/25/17 Type of Consultation: ID [id number] HR Interval Summary Free Text/Dictation pt has some mild L sided abd pain no V but had some N yesterday received platelets night of 02/25 had some nasal bleeding and still has melena only 2 BM's yesterday no SOB, cough mentation is good Exam/Review of Systems Vital Signs Vitals Vital Signs Date Time Temp Pulse Resp B/P Pulse Ox O2 Delivery O2 Flow Rate FiO2 02/27/17 04:23 85 02/27/17 01:33 98.0 18 135/70 99 02/23/17 17:47 Nasal Cannula 2.0 Intake and Output 02/26/17 02/26/17 02/27/17 15:00 23:00 07:00 Intake Total 1000 ml 400 ml 200 ml Output Total 2800 ml 20 ml Balance -1800 ml 380 ml 200 ml Exam Constitutional: alert, oriented Head: normocephalic Eyes: nl sclera ENMT: mucosa pink and moist Respiratory: clear to auscultation Cardiovascular: regular rate and rhythm Gastrointestinal: non-tender, soft Results Result Diagram: 02/26/17 1935 02/25/17 0750 Results 24 hrs Laboratory Tests Test 02/26/17 08:16 02/26/17 11:32 02/26/17 15:00 02/26/17 18:09 Bedside Glucose 152 166 194 Prothrombin Time 15.5 H Prothrombin Time Ratio 1.2 INR International Normalized Ratio 1.22 Test 02/26/17 19:35 02/26/17 20:45 02/27/17 01:20 Hemoglobin 8.8 #L Hematocrit 26.9 #L Bedside Glucose 204 186 Medications Medications Current Medications Acetaminophen (Tylenol Tab) 500 mg Q6H PRN PO PAIN AND OR ELEVATED TEMP Last administered on 02/27/17 06:13; Admin Dose 500 MG; Start 02/23/17 at 19:00 Epoetin Sean (Epogen (Esrd)) 10,000 units MoWeFr@17 SC Last administered on 17:51; Admin Dose 10,000 UNITS; Start 02/25/17 at 17:00 Furosemide (Lasix) 40 mg DAILY PO Last administered on 02/26/17 12:09; Admin Dose 40 MG; Start 02/24/17 at 09:00 Hydroxyzine HCl (Atarax) 10 mg Q6H PRN PO ITCHING; Start 02/23/17 at 19:00 Lactulose (Enulose) 30 gm HS PO ; Start 02/23/17 at 21:00; Status Future Hold Lactulose (Enulose) 20 gm Q6 PRN PO CONSTIPATION; Start 02/23/17 at 19:00 Megestrol Acetate (Megace Susp) 400 mg BID PO Last administered on 02/23/17 21 :00; Admin Dose 400 MG; Start 02/23/17 at 21:00 Multivitamins Therapeutic (Theragran) 1 tab DAILY PO Last administered on 12:09; Admin Dose 1 TAB; Start 02/24/17 at 09:00 Nifedipine (Procardia Xl) 30 mg DAILY PO Last administered on 02/26/17 18:16; Admin Dose 30 MG; Start 02/24/17 at 09:00 Nitroglycerin (Nitroglycerin (Sl Tab) 0.4 Mg) 1 tab Q5M PRN SL ANGINA; Start at 19:00 Ondansetron HCl (Zofran Inj) 4 mg Q4H PRN IV NAUSEA AND/OR VOMITING; Start at 19:00 Promethazine HCl/ Dextromethorphan (Phenergan-Dm) 10 ml TID PRN PO COUGH; Start 02/23/17 at 19:00 Salmeterol Xinafoate/ Fluticasone (Advair 250/50 Diskus) 1 inh BID INH Last administered on 02/26/17 20:42; Admin Dose 1 INH; Start 02/23/17 at 21:00 Triamcinolone Acetonide (Kenalog 0.1% Oint) 1 applic BID TOP Last administered on 02/26/17 20:48; Admin Dose 1 APPLIC; Start 02/23/17 at 21:00 Diagnostic Test (Pha) (Accu-Chek) 1 ea 02 XX Last administered on 02/27/17 02: 43; Admin Dose 1 EA; Start 02/24/17 at 02:00 Escitalopram Oxalate (Lexapro) 10 mg QHS PO Last administered on 02/26/17 20: 42; Admin Dose 10 MG; Start 02/24/17 at 21:00 Ciprofloxacin (Cipro) 500 mg DAILY@06 PO Last administered on 02/27/17 06:13; Admin Dose 500 MG; Start 02/25/17 at 09:00 Insulin Glargine (Lantus) 25 unit QHS SC Last administered on 02/26/17 20:47; Admin Dose 25 UNIT; Start 02/25/17 at 21:00 Pantoprazole (Protonix Tab) 40 mg BID@,18 PO Last administered on 02/27/17 06:13; Admin Dose 40 MG; Start 02/26/17 at 18:00 DANYEL HART MD Feb 27, 2017 06:36
[2017-02-27] MEDS: SALMETEROL/FLUTICASONE 250/50 INHA INH SCH ×2 (07:52→21:11)
[2017-02-27] MEDS: FUROSEMIDE 40 MG TAB PO SCH (07:53)
[2017-02-27] MEDS: TRIAMCINOLONE ACET 0.1% 15 GM OINT TOP SCH ×2 (07:53→21:11)
[2017-02-27] MEDS: MULTIVITAMINS THERAPEUTIC TAB PO SCH (07:53)
[2017-02-27] MEDS: MEGESTROL (40 MG/ML) 10ML CUP PO SCH ×2 (07:54→21:11)
[2017-02-27] MEDS: INSULIN ASPART [NOVOLOG] 3 ML PEN SC SCH ×4 (08:04→21:17)
[2017-02-27 08:22] LABS: ABNORMAL IP MESSAGE 1; BASOPHILS % 0.5 % (0.0-2.0); EOSINOPHILS # 0.3 10^3/ul (0.0-0.5); EOSINOPHILS % 4.4 % (0.0-7.0); HEMATOCRIT 26.1 % (42.0-52.0); HEMOGLOBIN 8.6 g/dl (14.0-18.0); LYMPHOCYTES # 1.5 10^3/ul (0.8-2.9); LYMPHOCYTES % 26.5 % (15.0-51.0); MEAN CORPUSCULAR HEMOGLOBIN 26.8 pg (29.0-33.0); MEAN CORPUSCULAR VOLUME 81.3 fl (82.0-101.0); MONOCYTE # 0.7 10^3/ul (0.3-0.9); MONOCYTES % 12.5 % (0.0-11.0); NEUTROPHILS % 55.4 % (39.0-77.0); POSITIVE DIFF @See below; RED BLOOD COUNT 3.21 10^6/ul (4.70-6.10); RED CELL DISTRIBUTION WIDTH 17.1 % (11.5-14.5); WHITE BLOOD COUNT 5.6 10^3/ul (4.8-10.8)
[2017-02-27 08:27] LABS: PLATELET COUNT 50 10^3/UL (140-415)
[2017-02-27 08:47] LABS: ALBUMIN/GLOBULIN RATIO 0.61; BILIRUBIN,INDIRECT 0.7 mg/dl (0-1.1); BILIRUBIN,TOTAL 0.7 mg/dl (0.2-1.3); CALCIUM 8.5 mg/dl (8.4-10.2); CREATININE 7.59 mg/dl (0.61-1.24); POTASSIUM 3.8 mmol/L (3.5-5.1); TOTAL PROTEIN 7.9 g/dl (6.1-8.1)
[2017-02-27] MEDS: ALBUTEROL/IPRATROPIUM (NEB) 3 ML AMP HHN SCH ×4 (09:00→20:18)
--- NOTE | 2017-02-27 09:33 | CONS ---
Date/Time of Note Date/Time of Note DATE: 02/27/17 TIME: 09:29 Assessment/Plan Assessment/Plan Chief Complaint/Hosp Course 1. End-stage renal disease now requiring maintenance hemodialysis Thursday. He was dialyzed yesterday. He received 2 units of packed RBCs. 1800 cc of fluid was removed. His hemoglobin and hematocrit are stable at this time. He was quite thrombocytopenic and did receive platelets 2 days ago. He is due for dialysis tomorrow. I will order this for him. 2. Cirrhosis of the liver, he has a history of hepatitis C which was treated. He does have cirrhosis and has had hepatic encephalopathy which is now treated. His last ammonia level was normal. He is on lactulose. 3. Fluid overloaded now much improved 4. Anemia 5. Diabetes mellitus 6. Morbid obesity 7. Sleep apnea 8. Urinary tract infection , treated 9. Congestive heart failure , improved 10. Thrombocytopenia Problems: Consultation Date/Type/Reason Admit Date/Time Feb 23, 2017 at 17:22 Initial Consult Date 02/25/17 Type of Consultation: renal 24 HR Interval Summary Constitutional: improved, no complaints Exam/Review of Systems Vital Signs Vitals Vital Signs Date Time Temp Pulse Resp B/P Pulse Ox O2 Delivery O2 Flow Rate FiO2 02/27/17 08:15 84 02/27/17 07:15 98.4 18 114/67 96 02/23/17 17:47 Nasal Cannula 2.0 Intake and Output 02/26/17 02/26/17 02/27/17 15:00 23:00 07:00 Intake Total 1000 ml 400 ml 200 ml Output Total 2800 ml 20 ml Balance -1800 ml 380 ml 200 ml Exam Constitutional: alert, frail, obese, oriented Neck: supple Respiratory: clear to auscultation, normal air movement Cardiovascular: regular rate and rhythm Gastrointestinal: non-tender, soft Musculoskeletal: nl extremities to inspection Results Result Diagram: 02/27/17 0705 02/27/17 0705 Results 24 hrs Laboratory Tests Test 02/26/17 11:32 02/26/17 15:00 02/26/17 18:09 02/26/17 19:35 Bedside Glucose 166 194 Prothrombin Time 15.5 H Prothrombin Time Ratio 1.2 INR International Normalized Ratio 1.22 Hemoglobin 8.8 #L Hematocrit 26.9 #L Test 02/26/17 20:45 02/27/17 01:20 02/27/17 07:05 02/27/17 07:51 Bedside Glucose 204 186 165 White Blood Count 5.6 # Red Blood Count 3.21 #L Hemoglobin 8.6 L Hematocrit 26.1 L Mean Corpuscular Volume 81.3 L Mean Corpuscular Hemoglobin 26.8 L Mean Corpuscular Hemoglobin Concent 33.0 Red Cell Distribution Width 17.1 H Platelet Count 50 L Mean Platelet Volume 11.0 H Neutrophils % 55.4 Lymphocytes % 26.5 Monocytes % 12.5 H Eosinophils % 4.4 Basophils % 0.5 Nucleated Red Blood Cells % 0.0 Neutrophils # (Manual) 3 Lymphocytes # 1.5 Monocytes # 0.7 Eosinophils # 0.3 Basophils # 0.0 Nucleated Red Blood Cells # 0.0 Sodium Level 131 L Potassium Level 3.8 Chloride Level 96 L Carbon Dioxide Level 25 Anion Gap 14 Blood Urea Nitrogen 48 H Creatinine 7.59 H Glucose Level 160 Calcium Level 8.5 Total Bilirubin 0.7 Direct Bilirubin 0.00 Indirect Bilirubin 0.7 Aspartate Amino Transf (AST/SGOT) 46 Alanine Aminotransferase (ALT/SGPT) 31 Alkaline Phosphatase 93 Total Protein 7.9 Albumin 3.0 L Globulin 4.90 H Albumin/Globulin Ratio 0.61 Medications Medications Current Medications Acetaminophen (Tylenol Tab) 500 mg Q6H PRN PO PAIN AND OR ELEVATED TEMP Last administered on 02/27/17 06:13; Admin Dose 500 MG; Start 02/23/17 at 19:00 Epoetin Sean (Epogen (Esrd)) 10,000 units MoWeFr@17 SC Last administered on 17:51; Admin Dose 10,000 UNITS; Start 02/25/17 at 17:00 Furosemide (Lasix) 40 mg DAILY PO Last administered on 02/27/17 07:53; Admin Dose 40 MG; Start 02/24/17 at 09:00 Hydroxyzine HCl (Atarax) 10 mg Q6H PRN PO ITCHING; Start 02/23/17 at 19:00 Lactulose (Enulose) 30 gm HS PO ; Start 02/23/17 at 21:00; Status Future Hold Lactulose (Enulose) 20 gm Q6 PRN PO CONSTIPATION; Start 02/23/17 at 19:00 Megestrol Acetate (Megace Susp) 400 mg BID PO Last administered on 02/23/17 21 :00; Admin Dose 400 MG; Start 02/23/17 at 21:00 Multivitamins Therapeutic (Theragran) 1 tab DAILY PO Last administered on 07:53; Admin Dose 1 TAB; Start 02/24/17 at 09:00 Nifedipine (Procardia Xl) 30 mg DAILY PO Last administered on 02/26/17 18:16; Admin Dose 30 MG; Start 02/24/17 at 09:00 Nitroglycerin (Nitroglycerin (Sl Tab) 0.4 Mg) 1 tab Q5M PRN SL ANGINA; Start at 19:00 Ondansetron HCl (Zofran Inj) 4 mg Q4H PRN IV NAUSEA AND/OR VOMITING; Start at 19:00 Promethazine HCl/ Dextromethorphan (Phenergan-Dm) 10 ml TID PRN PO COUGH; Start 02/23/17 at 19:00 Salmeterol Xinafoate/ Fluticasone (Advair 250/50 Diskus) 1 inh BID INH Last administered on 02/27/17 07:52; Admin Dose 1 INH; Start 02/23/17 at 21:00 Triamcinolone Acetonide (Kenalog 0.1% Oint) 1 applic BID TOP Last administered on 02/27/17 07:53; Admin Dose 1 APPLIC; Start 02/23/17 at 21:00 Diagnostic Test (Pha) (Accu-Chek) 1 ea 02 XX Last administered on 02/27/17 02: 43; Admin Dose 1 EA; Start 02/24/17 at 02:00 Escitalopram Oxalate (Lexapro) 10 mg QHS PO Last administered on 02/26/17 20: 42; Admin Dose 10 MG; Start 02/24/17 at 21:00 Ciprofloxacin (Cipro) 500 mg DAILY@06 PO Last administered on 02/27/17 06:13; Admin Dose 500 MG; Start 02/25/17 at 09:00 Insulin Glargine (Lantus) 25 unit QHS SC Last administered on 02/26/17 20:47; Admin Dose 25 UNIT; Start 02/25/17 at 21:00 Pantoprazole (Protonix Tab) 40 mg BID@06,18 PO Last administered on 02/27/17t 06:13; Admin Dose 40 MG; Start 02/26/17 at 18:00 ANA MELENDEZ MD Feb 27, 2017 09:33
--- NOTE | 2017-02-27 10:40 | PN ---
DATE: 02/27/2017 SUBJECTIVE DATA: Patient is complaining of some discomfort in the proximal lower extremities bilaterally. This is not cramping in nature. Difficult for him to describe the exact character of pain. Apparently, this is not new. The patient states that he continues to have blacks and tarry- appearing stools. OBJECTIVE DATA: GENERAL: The patient is a well-developed, obese male, who is in no obvious distress. SKIN: Dry. No ecchymosis. No petechiae or rashes. HEENT: Normocephalic. No evidence of trauma. Pupils equal, round, react to light and accommodation. Sclerae nonicteric. Oral mucosa moist without lesions. There are no mucosal purpura. Tongue is well papillated. No gingival hyperplasia. No hypertrophy of Waldeyer's ring. NECK: Supple. No jugular distention or thyroid enlargement. No carotid bruits. CHEST: There is a tunneled dialysis catheter in the right subclavicular area. HEART: Regular sinus rhythm. No S3 or S4. There is a grade 3/6 systolic murmur heard along the left sternal border which radiates to the left axilla and not to the neck. NODES: No palpable lymphadenopathy in lymph node bearing area. ABDOMEN: Obese. No obvious masses or ascites. There is fullness in the left upper quadrant, but I cannot detect the actual splenic tip. EXTREMITIES: No clubbing, edema, or cyanosis. There is an AV fistula in the medial aspect of the right humeral area. LABORATORY AND DIAGNOSTIC DATA: White count is 5600, hemoglobin 8.6, hematocrit 26.1, and platelet count is 50,000. The globulin today is 4.9, calcium 8.5, with an albumin of 3. ASSESSMENT: 1. Post hepatitic cirrhosis with portal hypertension. 2. Thrombocytopenia, probable multifactorial. 3. End-stage kidney disease on hemodialysis. 4. Diabetes mellitus. 5. Probable gastrointestinal bleeding. DISCUSSION: As noted, the patient continues to have melanotic stools. The patient's hemoglobin is stable, but he did receive 2 units of packed red blood cells on 02/26. From 02/25 to 02/26, patient's platelet count went from 27,000 to 52,000, but in that interval he had received 1 unit of platelet pheresis. Platelets are now stable. Evaluation for etiology of thrombocytopenia is unclear at this time. The RASHAUN is pending, as are the platelet antibodies, as well as heparin-associated platelet antibodies. The patient does have an elevated IgG, but also an elevated IgA. It is not clear whether there is any actual monoclonal paraprotein. Would continue to observe at this time. Do not feel the patient requires platelet transfusion. Dictated By: Jh Fox MD /[email or web address] /Document#: [id number]
[2017-02-27] MEDS: NIFEdipine (XL) 30 MG TAB PO SCH (12:12)
[2017-02-27 13:20] LABS: ANA SCREEN NEGATIVE (NEGATIVE)
--- NOTE | 2017-02-27 17:00 | PN ---
DATE: 02/27/2017 SUBJECTIVE: Patient continues to have loose stools, tarry in color. Appetite still poor. Shortness of breath significantly improved. OBJECTIVE DATA: VITAL SIGNS: Temperature 97.8, blood pressure 158/72, O2 sat 98 percent on room air. NECK: JVD is not increased. CHEST: Clinically clear. HEART: S1, S2. No definite gallops. ABDOMEN: Abdomen obese, nontender. No hepatosplenomegaly. EXTREMITIES: Extremities with minimal edema. Homans negative. LABORATORY: WBC count 5.6, hematocrit 26.1, platelets 50,000. Sodium 131, potassium 3.8, BUN 48, creatinine 7.59, glucose 165 and 226. Albumin is 3. IMPRESSION: 1. Thrombocytopenia, etiology undetermined. 2. Severe anemia. 3. Chronic kidney disease on hemodialysis. 4. Cirrhosis and portal hypertension. 5. Congestive heart failure, improved. 6. Diabetes mellitus type 2. 7. Morbid obesity. 8. Obstructive sleep apnea. 9. Status post urinary tract infection with VRE and Pseudomonas, treated. PLAN: Will encourage patient to work with PT to increase activity. Continue hematology and renal recommendations. Dictated By: Ivan Brice MD /[email or web address] /Document#: [id number]
[2017-02-27] MEDS: EPOETIN 10000 UNITS/1 ML INJ (ESRD) SC SCH (17:33)
[2017-02-27 19:50] LABS: ALBUMIN 2.5 g/dL (3.8-4.8)
--- NOTE | 2017-02-27 20:43 | CONS ---
Date/Time of Note Date/Time of Note DATE: 02/27/17 TIME: 20:42 Assessment/Plan Assessment/Plan Additional Assessment/Plan Additional Assessment/Plan 1. Melena, bleeding seems to have stopped hematocrit is 27.6 stabilized 2. Cirrhosis of liver 3. Diabetes mellitus 4. End-stage kidney disease on dialysis 5. Thrombocytopenia, platelet count is now 50,000 Plan Continue PPI Monitor H&H Patient needs platelet transfusion, we should keep platelet count above 50 whenever patient is bleeding We will check PT PTT If bleeding continues then will do EGD. Stat H&H We will increase the dose of protonix Consultation Date/Type/Reason Admit Date/Time Feb 23, 2017 at 17:22 Initial Consult Date 02/25/17 Type of Consultation: renal 24 HR Interval Summary Free Text/Dictation Passing black colored stool Exam/Review of Systems Vital Signs Vitals Vital Signs Date Time Temp Pulse Resp B/P Pulse Ox O2 Delivery O2 Flow Rate FiO2 02/27/17 19:41 98.4 97 18 140/67 98 02/23/17 17:47 Nasal Cannula 2.0 Intake and Output 02/26/17 02/26/17 02/27/17 15:00 23:00 07:00 Intake Total 1000 ml 400 ml 200 ml Output Total 2800 ml 20 ml Balance -1800 ml 380 ml 200 ml Exam Constitutional: alert, oriented, well developed Psych: nl mood/affect, no complaints Head: atraumatic, normocephalic Eyes: EOMI, PERRL, nl conjunctiva, nl lids, nl sclera ENMT: nl external ears & nose, nl lips & teeth, nl nasal mucosa & septum Neck: non-tender, supple Respiratory: clear to auscultation, normal air movement Cardiovascular: nl pulses, regular rate and rhythm Gastrointestinal: nl liver, spleen, non-tender, soft Musculoskeletal: nl extremities to inspection, nl gait and stance Extremities: normal pulses 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: RN MATERNITY II-XII intact, nl mental status, nl speech, nl strength Skin: nl turgor, No rash or lesions Lymph: nl lymph nodes Results Result Diagram: 02/27/17 0705 02/27/17 0705 Results 24 hrs Laboratory Tests Test 02/26/17 20:45 02/27/17 01:20 02/27/17 07:05 02/27/17 07:51 Bedside Glucose 204 186 165 White Blood Count 5.6 # Red Blood Count 3.21 #L Hemoglobin 8.6 L Hematocrit 26.1 L Mean Corpuscular Volume 81.3 L Mean Corpuscular Hemoglobin 26.8 L Mean Corpuscular Hemoglobin Concent 33.0 Red Cell Distribution Width 17.1 H Platelet Count 50 L Mean Platelet Volume 11.0 H Neutrophils % 55.4 Lymphocytes % 26.5 Monocytes % 12.5 H Eosinophils % 4.4 Basophils % 0.5 Nucleated Red Blood Cells % 0.0 Neutrophils # (Manual) 3 Lymphocytes # 1.5 Monocytes # 0.7 Eosinophils # 0.3 Basophils # 0.0 Nucleated Red Blood Cells # 0.0 Sodium Level 131 L Potassium Level 3.8 Chloride Level 96 L Carbon Dioxide Level 25 Anion Gap 14 Blood Urea Nitrogen 48 H Creatinine 7.59 H Glucose Level 160 Calcium Level 8.5 Total Bilirubin 0.7 Direct Bilirubin 0.00 Indirect Bilirubin 0.7 Aspartate Amino Transf (AST/SGOT) 46 Alanine Aminotransferase (ALT/SGPT) 31 Alkaline Phosphatase 93 Total Protein 7.9 Albumin 3.0 L Globulin 4.90 H Albumin/Globulin Ratio 0.61 Test 02/27/17 12:10 02/27/17 17:29 Bedside Glucose 226 H 263 H Medications Medications Current Medications Acetaminophen (Tylenol Tab) 500 mg Q6H PRN PO PAIN AND OR ELEVATED TEMP Last administered on 02/27/17 06:13; Admin Dose 500 MG; Start 02/23/17 at 19:00 Epoetin Sean (Epogen (Esrd)) 10,000 units MoWeFr@17 SC Last administered on 17:33; Admin Dose 10,000 UNITS; Start 02/25/17 at 17:00 Furosemide (Lasix) 40 mg DAILY PO Last administered on 02/27/17 07:53; Admin Dose 40 MG; Start 02/24/17 at 09:00 Hydroxyzine HCl (Atarax) 10 mg Q6H PRN PO ITCHING; Start 02/23/17 at 19:00 Lactulose (Enulose) 30 gm HS PO ; Start 02/23/17 at 21:00; Status Future Hold Lactulose (Enulose) 20 gm Q6 PRN PO CONSTIPATION; Start 02/23/17 at 19:00 Megestrol Acetate (Megace Susp) 400 mg BID PO Last administered on 02/23/17 21 :00; Admin Dose 400 MG; Start 02/23/17 at 21:00 Multivitamins Therapeutic (Theragran) 1 tab DAILY PO Last administered on 07:53; Admin Dose 1 TAB; Start 02/24/17 at 09:00 Nifedipine (Procardia Xl) 30 mg DAILY PO Last administered on 02/27/17 12:12; Admin Dose 30 MG; Start 02/24/17 at 09:00 Nitroglycerin (Nitroglycerin (Sl Tab) 0.4 Mg) 1 tab Q5M PRN SL ANGINA; Start at 19:00 Ondansetron HCl (Zofran Inj) 4 mg Q4H PRN IV NAUSEA AND/OR VOMITING; Start at 19:00 Promethazine HCl/ Dextromethorphan (Phenergan-Dm) 10 ml TID PRN PO COUGH; Start 02/23/17 at 19:00 Salmeterol Xinafoate/ Fluticasone (Advair 250/50 Diskus) 1 inh BID INH Last administered on 02/27/17 07:52; Admin Dose 1 INH; Start 02/23/17 at 21:00 Triamcinolone Acetonide (Kenalog 0.1% Oint) 1 applic BID TOP Last administered on 02/27/17 07:53; Admin Dose 1 APPLIC; Start 02/23/17 at 21:00 Diagnostic Test (Pha) (Accu-Chek) 1 ea 02 XX Last administered on 02/27/17 02: 43; Admin Dose 1 EA; Start 02/24/17 at 02:00 Escitalopram Oxalate (Lexapro) 10 mg QHS PO Last administered on 02/26/17 20: 42; Admin Dose 10 MG; Start 02/24/17 at 21:00 Ciprofloxacin (Cipro) 500 mg DAILY@06 PO Last administered on 02/27/17 06:13; Admin Dose 500 MG; Start 02/25/17 at 09:00 Insulin Glargine (Lantus) 25 unit QHS SC Last administered on 02/26/17 20:47; Admin Dose 25 UNIT; Start 02/25/17 at 21:00 Pantoprazole (Protonix Tab) 40 mg BID@,18 PO Last administered on 8/18/17at 18:40; Admin Dose 40 MG; Start 02/26/17 at 18:00 STUART STANLEY MD Feb 27, 2017 20:43
[2017-02-27] MEDS: ESCITALOPRAM 10 MG TAB PO SCH (21:11)
[2017-02-27] MEDS: INSULIN GLARGINE [LANtus] 3 ML PEN SC SCH (21:14)
[2017-02-27 21:58] LABS: HEPARIN INDUCED PLATELET AB NEGATIVE (NEGATIVE)
[2017-02-28] VITALS (17 sets, daily range): BP systolic 100–168; BP diastolic 53–77; PULSE 85–107; RESP 18–21
[2017-02-28] MEDS: ACCU-CHEK XX SCH (02:00)
[2017-02-28] MEDS: CIPROFLOXACIN 500 MG TAB PO SCH (05:13)
[2017-02-28] MEDS: PANTOPRAZOLE (EC) 40 MG TAB PO SCH ×2 (05:13→17:41)
[2017-02-28 07:15] LABS: ABNORMAL IP MESSAGE 1; BASOPHILS % 0.5 % (0.0-2.0); EOSINOPHILS # 0.3 10^3/ul (0.0-0.5); HEMATOCRIT 24.8 % (42.0-52.0); HEMOGLOBIN 8.1 g/dl (14.0-18.0); LYMPHOCYTES # 1.5 10^3/ul (0.8-2.9); LYMPHOCYTES % 23.3 % (15.0-51.0); MEAN CORPUSCULAR HEMOGLOBIN 26.3 pg (29.0-33.0); MEAN CORPUSCULAR HGB CONC 32.7 g/dl (32.0-37.0); MEAN CORPUSCULAR VOLUME 80.5 fl (82.0-101.0); MONOCYTE # 0.6 10^3/ul (0.3-0.9); MONOCYTES % 9.8 % (0.0-11.0); NEUTROPHILS % 60.8 % (39.0-77.0); PLATELET COUNT 63 10^3/UL (140-415); POSITIVE DIFF @See below; RED BLOOD COUNT 3.08 10^6/ul (4.70-6.10); RED CELL DISTRIBUTION WIDTH 16.4 % (11.5-14.5); WHITE BLOOD COUNT 6.4 10^3/ul (4.8-10.8)
[2017-02-28 07:34] LABS: CALCIUM 8.7 mg/dl (8.4-10.2); CREATININE 8.54 mg/dl (0.61-1.24); POTASSIUM 4.1 mmol/L (3.5-5.1)
[2017-02-28] MEDS: NIFEdipine (XL) 30 MG TAB PO SCH (08:24)
[2017-02-28] MEDS: TRIAMCINOLONE ACET 0.1% 15 GM OINT TOP SCH ×2 (08:24→20:35)
[2017-02-28] MEDS: MULTIVITAMINS THERAPEUTIC TAB PO SCH (08:24)
[2017-02-28] MEDS: MEGESTROL (40 MG/ML) 10ML CUP PO SCH ×2 (08:24→20:33)
[2017-02-28] MEDS: SALMETEROL/FLUTICASONE 250/50 INHA INH SCH ×2 (08:24→20:33)
[2017-02-28] MEDS: FUROSEMIDE 40 MG TAB PO SCH (08:24)
[2017-02-28] MEDS: INSULIN ASPART [NOVOLOG] 3 ML PEN SC SCH ×4 (08:30→20:43)
[2017-02-28] MEDS: ALBUTEROL/IPRATROPIUM (NEB) 3 ML AMP HHN SCH ×4 (09:00→20:47)
--- NOTE | 2017-02-28 11:35 | CONS ---
Date/Time of Note Date/Time of Note DATE: 02/28/17 TIME: 11:33 Assessment/Plan Assessment/Plan Additional Assessment/Plan Assessment/Plan Assessment/Plan Additional Assessment/Plan Additional Assessment/Plan 1. Melena, bleeding seems to have stopped hematocrit is stable, dropped by one- point five-point 2. Cirrhosis of liver 3. Diabetes mellitus 4. End-stage kidney disease on dialysis 5. Thrombocytopenia, platelet count is now 62,000 Plan Continue PPI Monitor H&H Discussed with the Consultation Date/Type/Reason Admit Date/Time Feb 23, 2017 at 17:22 Initial Consult Date 02/25/17 Type of Consultation: renal 24 HR Interval Summary Free Text/Dictation 1 bowel movements a day Today patient did not have any bowel movement Exam/Review of Systems Vital Signs Vitals Vital Signs Date Time Temp Pulse Resp B/P Pulse Ox O2 Delivery O2 Flow Rate FiO2 02/28/17 11:03 96 02/28/17 08:25 12 02/27/17 19:41 98.4 140/67 98 Intake and Output 02/27/17 02/27/17 02/28/17 15:00 23:00 07:00 Intake Total 60 ml 200 ml Output Total 50 ml Balance 10 ml 200 ml Exam Constitutional: alert, oriented, well developed Psych: nl mood/affect, no complaints Head: atraumatic, normocephalic Eyes: EOMI, PERRL, nl conjunctiva, nl lids, nl sclera ENMT: nl external ears & nose, nl lips & teeth, nl nasal mucosa & septum Neck: non-tender, supple Respiratory: clear to auscultation, normal air movement Cardiovascular: nl pulses, regular rate and rhythm Gastrointestinal: nl liver, spleen, non-tender, soft Musculoskeletal: nl extremities to inspection, nl gait and stance Extremities: normal pulses 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: [employer] II-XII intact, nl mental status, nl speech, nl strength Skin: nl turgor, No rash or lesions Lymph: nl lymph nodes Results Result Diagram: 02/28/17 0614 02/28/17 0614 Results 24 hrs Laboratory Tests Test 02/27/17 12:10 02/27/17 17:29 02/27/17 21:05 02/28/17 06:14 Bedside Glucose 226 H 263 H 247 H White Blood Count 6.4 Red Blood Count 3.08 L Hemoglobin 8.1 L Hematocrit 24.8 L Mean Corpuscular Volume 80.5 L Mean Corpuscular Hemoglobin 26.3 L Mean Corpuscular Hemoglobin Concent 32.7 Red Cell Distribution Width 16.4 H Platelet Count 63 #L Mean Platelet Volume Neutrophils % 60.8 Lymphocytes % 23.3 Monocytes % 9.8 Eosinophils % 5.0 Basophils % 0.5 Nucleated Red Blood Cells % 0.0 Neutrophils # (Manual) 4 Lymphocytes # 1.5 Monocytes # 0.6 Eosinophils # 0.3 Basophils # 0.0 Nucleated Red Blood Cells # 0.0 Sodium Level 131 L Potassium Level 4.1 Chloride Level 92 L Carbon Dioxide Level 23 Anion Gap 20 H Blood Urea Nitrogen 59 H Creatinine 8.54 H Glucose Level 172 Calcium Level 8.7 Test 02/28/17 08:14 02/28/17 08:20 Lab Scanned Report BLOOD TRANSFUSION Bedside Glucose 180 Medications Medications Current Medications Acetaminophen (Tylenol Tab) 500 mg Q6H PRN PO PAIN AND OR ELEVATED TEMP Last administered on 02/27/17 06:13; Admin Dose 500 MG; Start 02/23/17 at 19:00 Epoetin Sean (Epogen (Esrd)) 10,000 units MoWeFr@17 SC Last administered on 17:33; Admin Dose 10,000 UNITS; Start 02/25/17 at 17:00 Furosemide (Lasix) 40 mg DAILY PO Last administered on 02/28/17 08:24; Admin Dose 40 MG; Start 02/24/17 at 09:00 Hydroxyzine HCl (Atarax) 10 mg Q6H PRN PO ITCHING; Start 02/23/17 at 19:00 Lactulose (Enulose) 30 gm HS PO ; Start 02/23/17 at 21:00; Status Future Hold Lactulose (Enulose) 20 gm Q6 PRN PO CONSTIPATION; Start 02/23/17 at 19:00 Megestrol Acetate (Megace Susp) 400 mg BID PO Last administered on 02/27/17 21 :11; Admin Dose 400 MG; Start 02/23/17 at 21:00 Multivitamins Therapeutic (Theragran) 1 tab DAILY PO Last administered on 08:24; Admin Dose 1 TAB; Start 02/24/17 at 09:00 Nifedipine (Procardia Xl) 30 mg DAILY PO Last administered on 02/28/17 08:24; Admin Dose 30 MG; Start 02/24/17 at 09:00 Nitroglycerin (Nitroglycerin (Sl Tab) 0.4 Mg) 1 tab Q5M PRN SL ANGINA; Start at 19:00 Ondansetron HCl (Zofran Inj) 4 mg Q4H PRN IV NAUSEA AND/OR VOMITING; Start at 19:00 Promethazine HCl/ Dextromethorphan (Phenergan-Dm) 10 ml TID PRN PO COUGH; Start 02/23/17 at 19:00 Salmeterol Xinafoate/ Fluticasone (Advair 250/50 Diskus) 1 inh BID INH Last administered on 02/28/17 08:24; Admin Dose 1 INH; Start 02/23/17 at 21:00 Triamcinolone Acetonide (Kenalog 0.1% Oint) 1 applic BID TOP Last administered on 02/28/17 08:24; Admin Dose 1 APPLIC; Start 02/23/17 at 21:00 Diagnostic Test (Pha) (Accu-Chek) 1 ea 02 XX Last administered on 02/27/17 02: 43; Admin Dose 1 EA; Start 02/24/17 at 02:00 Escitalopram Oxalate (Lexapro) 10 mg QHS PO Last administered on 02/27/17 21: 11; Admin Dose 10 MG; Start 02/24/17 at 21:00 Ciprofloxacin (Cipro) 500 mg DAILY@06 PO Last administered on 02/28/17 05:13; Admin Dose 500 MG; Start 02/25/17 at 09:00 Insulin Glargine (Lantus) 25 unit QHS SC Last administered on 02/27/17 21:14; Admin Dose 25 UNIT; Start 02/25/17 at 21:00 Pantoprazole (Protonix Tab) 40 mg BID@,18 PO Last administered on 02/28/17 05:13; Admin Dose 40 MG; Start 02/26/17 at 18:00 STUART STANLEY MD Feb 28, 2017 11:35
--- NOTE | 2017-02-28 11:41 | PN ---
Date/Time of Note Date/Time of Note DATE: 02/28/17 TIME: 11:34 Assessment/Plan VTE Prophylaxis VTE Prophylaxis Intervention: other (thrombocytopenia) Lines/Catheters [facility] Urinary Cath still in place: No Assessment/Plan Assessment/Plan Hgb 8.1 but no active bleeding. Plt count is slightly higher without transfused platelets. Hopefully the improvement in the platelets will lead to less melena. Continue to monitor and transfuse in the short run to support Hgb and plt as needed. Subjective 24 Hr Interval Summary Free Text/Dictation Pt alert and lying in bed. Dialysis is just finishing. Family says he had one dark stool last night but not this morning. Exam/Review of Systems Vital Signs Vitals Vital Signs Date Time Temp Pulse Resp B/P Pulse Ox O2 Delivery O2 Flow Rate FiO2 02/28/17 11:25 88 02/28/17 08:25 12 02/27/17 19:41 98.4 140/67 98 Intake and Output 02/27/17 02/27/17 02/28/17 15:00 23:00 07:00 Intake Total 60 ml 200 ml Output Total 50 ml Balance 10 ml 200 ml Exam Constitutional: alert, oriented Head: normocephalic Eyes: other (pallor) Neck: supple Respiratory: clear to auscultation Cardiovascular: regular rate and rhythm Results Result Diagram: 02/28/1714 02/28/1714 Results 24 hrs Laboratory Tests Test 02/27/17 12:10 02/27/17 17:29 02/27/17 21:05 02/28/17 06:14 Bedside Glucose 226 H 263 H 247 H White Blood Count 6.4 Red Blood Count 3.08 L Hemoglobin 8.1 L Hematocrit 24.8 L Mean Corpuscular Volume 80.5 L Mean Corpuscular Hemoglobin 26.3 L Mean Corpuscular Hemoglobin Concent 32.7 Red Cell Distribution Width 16.4 H Platelet Count 63 #L Mean Platelet Volume Neutrophils % 60.8 Lymphocytes % 23.3 Monocytes % 9.8 Eosinophils % 5.0 Basophils % 0.5 Nucleated Red Blood Cells % 0.0 Neutrophils # (Manual) 4 Lymphocytes # 1.5 Monocytes # 0.6 Eosinophils # 0.3 Basophils # 0.0 Nucleated Red Blood Cells # 0.0 Sodium Level 131 L Potassium Level 4.1 Chloride Level 92 L Carbon Dioxide Level 23 Anion Gap 20 H Blood Urea Nitrogen 59 H Creatinine 8.54 H Glucose Level 172 Calcium Level 8.7 Test 02/28/17 08:14 02/28/17 08:20 Lab Scanned Report BLOOD TRANSFUSION Bedside Glucose 180 Medications Medications Current Medications Acetaminophen (Tylenol Tab) 500 mg Q6H PRN PO PAIN AND OR ELEVATED TEMP Last administered on 02/27/17 06:13; Admin Dose 500 MG; Start 02/23/17 at 19:00 Epoetin Sean (Epogen (Esrd)) 10,000 units MoWeFr@17 SC Last administered on 17:33; Admin Dose 10,000 UNITS; Start 02/25/17 at 17:00 Furosemide (Lasix) 40 mg DAILY PO Last administered on 02/28/17 08:24; Admin Dose 40 MG; Start 02/24/17 at 09:00 Hydroxyzine HCl (Atarax) 10 mg Q6H PRN PO ITCHING; Start 02/23/17 at 19:00 Lactulose (Enulose) 30 gm HS PO ; Start 02/23/17 at 21:00; Status Future Hold Lactulose (Enulose) 20 gm Q6 PRN PO CONSTIPATION; Start 02/23/17 at 19:00 Megestrol Acetate (Megace Susp) 400 mg BID PO Last administered on 02/27/17 21 :11; Admin Dose 400 MG; Start 02/23/17 at 21:00 Multivitamins Therapeutic (Theragran) 1 tab DAILY PO Last administered on 08:24; Admin Dose 1 TAB; Start 02/24/17 at 09:00 Nifedipine (Procardia Xl) 30 mg DAILY PO Last administered on 02/28/17 08:24; Admin Dose 30 MG; Start 02/24/17 at 09:00 Nitroglycerin (Nitroglycerin (Sl Tab) 0.4 Mg) 1 tab Q5M PRN SL ANGINA; Start at 19:00 Ondansetron HCl (Zofran Inj) 4 mg Q4H PRN IV NAUSEA AND/OR VOMITING; Start at 19:00 Promethazine HCl/ Dextromethorphan (Phenergan-Dm) 10 ml TID PRN PO COUGH; Start 8/14/17 at 19:00 Salmeterol Xinafoate/ Fluticasone (Advair 250/50 Diskus) 1 inh BID INH Last administered on 02/28/17 08:24; Admin Dose 1 INH; Start 02/23/17 at 21:00 Triamcinolone Acetonide (Kenalog 0.1% Oint) 1 applic BID TOP Last administered on 02/28/17 08:24; Admin Dose 1 APPLIC; Start 02/23/17 at 21:00 Diagnostic Test (Pha) (Accu-Chek) 1 ea 02 XX Last administered on 02/27/17 02: 43; Admin Dose 1 EA; Start 02/24/17 at 02:00 Escitalopram Oxalate (Lexapro) 10 mg QHS PO Last administered on 02/27/17 21: 11; Admin Dose 10 MG; Start 02/24/17 at 21:00 Ciprofloxacin (Cipro) 500 mg DAILY@06 PO Last administered on 02/28/17 05:13; Admin Dose 500 MG; Start 02/25/17 at 09:00 Insulin Glargine (Lantus) 25 unit QHS SC Last administered on 02/27/17 21:14; Admin Dose 25 UNIT; Start 02/25/17 at 21:00 Pantoprazole (Protonix Tab) 40 mg BID@,18 PO Last administered on 02/28/17 05:13; Admin Dose 40 MG; Start 02/26/17 at 18:00 NCIOLE REID MD Feb 28, 2017 11:41
--- NOTE | 2017-02-28 12:39 | CONS ---
Date/Time of Note Date/Time of Note DATE: 02/28/17 TIME: 12:31 Assessment/Plan Assessment/Plan Chief Complaint/Hosp Course 1. End-stage renal disease now requiring maintenance hemodialysis Thursday. He was dialyzed earlier this morning. 2000 cc of fluid was removed. His hemoglobin and hematocrit are stable at this time. He was quite thrombocytopenic and did receive platelets 2 days ago. He is due for dialysis tomorrow. I will order this for him. 2. Cirrhosis of the liver, he has a history of hepatitis C which was treated. He does have cirrhosis and has had hepatic encephalopathy which is now treated. His last ammonia level was normal. He is on lactulose. 3. Fluid overloaded now much improved 4. Anemia , he had some GI bleeding which has stopped. His H&H is stable. 5. Diabetes mellitus 6. Morbid obesity 7. Sleep apnea 8. Urinary tract infection , treated 9. Congestive heart failure , improved 10. Thrombocytopenia Problems: Consultation Date/Type/Reason Admit Date/Time Feb 23, 2017 at 17:22 Initial Consult Date 02/25/17 Type of Consultation: renal 24 HR Interval Summary Free Text/Dictation He is feeling better today. He had dialysis already and 2 L of fluid was removed. Constitutional: improved, no complaints Exam/Review of Systems Vital Signs Vitals Vital Signs Date Time Temp Pulse Resp B/P Pulse Ox O2 Delivery O2 Flow Rate FiO2 02/28/17 11:48 98.5 98 18 145/59 99 Intake and Output 02/27/17 02/27/17 02/28/17 15:00 23:00 07:00 Intake Total 60 ml 200 ml Output Total 50 ml Balance 10 ml 200 ml Exam Constitutional: alert, frail, obese, oriented Respiratory: clear to auscultation, normal air movement Cardiovascular: regular rate and rhythm Gastrointestinal: non-tender, soft Musculoskeletal: nl extremities to inspection Results Result Diagram: 02/28/17 0614 02/28/17 0614 Results 24 hrs Laboratory Tests Test 02/27/17 17:29 02/27/17 21:05 02/28/17 06:14 02/28/17 08:14 Bedside Glucose 263 H 247 H White Blood Count 6.4 Red Blood Count 3.08 L Hemoglobin 8.1 L Hematocrit 24.8 L Mean Corpuscular Volume 80.5 L Mean Corpuscular Hemoglobin 26.3 L Mean Corpuscular Hemoglobin Concent 32.7 Red Cell Distribution Width 16.4 H Platelet Count 63 #L Mean Platelet Volume Neutrophils % 60.8 Lymphocytes % 23.3 Monocytes % 9.8 Eosinophils % 5.0 Basophils % 0.5 Nucleated Red Blood Cells % 0.0 Neutrophils # (Manual) 4 Lymphocytes # 1.5 Monocytes # 0.6 Eosinophils # 0.3 Basophils # 0.0 Nucleated Red Blood Cells # 0.0 Sodium Level 131 L Potassium Level 4.1 Chloride Level 92 L Carbon Dioxide Level 23 Anion Gap 20 H Blood Urea Nitrogen 59 H Creatinine 8.54 H Glucose Level 172 Calcium Level 8.7 Lab Scanned Report BLOOD TRANSFUSION Test 02/28/17 08:20 02/28/17 11:39 Bedside Glucose 180 181 Medications Medications Current Medications Acetaminophen (Tylenol Tab) 500 mg Q6H PRN PO PAIN AND OR ELEVATED TEMP Last administered on 02/27/17 06:13; Admin Dose 500 MG; Start 02/23/17 at 19:00 Epoetin Sean (Epogen (Esrd)) 10,000 units MoWeFr@17 SC Last administered on 17:33; Admin Dose 10,000 UNITS; Start 02/25/17 at 17:00 Furosemide (Lasix) 40 mg DAILY PO Last administered on 02/28/17 08:24; Admin Dose 40 MG; Start 02/24/17 at 09:00 Hydroxyzine HCl (Atarax) 10 mg Q6H PRN PO ITCHING; Start 02/23/17 at 19:00 Lactulose (Enulose) 30 gm HS PO ; Start 02/23/17 at 21:00; Status Future Hold Lactulose (Enulose) 20 gm Q6 PRN PO CONSTIPATION; Start 02/23/17 at 19:00 Megestrol Acetate (Megace Susp) 400 mg BID PO Last administered on 02/27/17 21 :11; Admin Dose 400 MG; Start 02/23/17 at 21:00 Multivitamins Therapeutic (Theragran) 1 tab DAILY PO Last administered on 08:24; Admin Dose 1 TAB; Start 02/24/17 at 09:00 Nifedipine (Procardia Xl) 30 mg DAILY PO Last administered on 02/28/17 08:24; Admin Dose 30 MG; Start 02/24/17 at 09:00 Nitroglycerin (Nitroglycerin (Sl Tab) 0.4 Mg) 1 tab Q5M PRN SL ANGINA; Start at 19:00 Ondansetron HCl (Zofran Inj) 4 mg Q4H PRN IV NAUSEA AND/OR VOMITING; Start at 19:00 Promethazine HCl/ Dextromethorphan (Phenergan-Dm) 10 ml TID PRN PO COUGH; Start 02/23/17 at 19:00 Salmeterol Xinafoate/ Fluticasone (Advair 250/50 Diskus) 1 inh BID INH Last administered on 02/28/17 08:24; Admin Dose 1 INH; Start 02/23/17 at 21:00 Triamcinolone Acetonide (Kenalog 0.1% Oint) 1 applic BID TOP Last administered on 02/28/17 08:24; Admin Dose 1 APPLIC; Start 02/23/17 at 21:00 Diagnostic Test (Pha) (Accu-Chek) 1 ea 02 XX Last administered on 02/27/17 02: 43; Admin Dose 1 EA; Start 02/24/17 at 02:00 Escitalopram Oxalate (Lexapro) 10 mg QHS PO Last administered on 02/27/17 21: 11; Admin Dose 10 MG; Start 02/24/17 at 21:00 Ciprofloxacin (Cipro) 500 mg DAILY@06 PO Last administered on 02/28/17 05:13; Admin Dose 500 MG; Start 02/25/17 at 09:00 Insulin Glargine (Lantus) 25 unit QHS SC Last administered on 02/27/17 21:14; Admin Dose 25 UNIT; Start 02/25/17 at 21:00 Pantoprazole (Protonix Tab) 40 mg BID@06,18 PO Last administered on 02/28/17 05:13; Admin Dose 40 MG; Start 02/26/17 at 18:00 ANA MELENDEZ MD Feb 28, 2017 12:39
--- NOTE | 2017-02-28 19:34 | PN ---
DATE: 02/28/2017 SUBJECTIVE DATA: The patient is lethargic, p.o. intake still very poor. Poor mobility, walking with PT. OBJECTIVE DATA: VITAL SIGNS: Temp 98.5, blood pressure 145/59, O2 sat 98 percent on room air. HEENT: Head normocephalic. Mild pallor without cyanosis. JVD is not increased. CHEST: Clinically clear. HEART: S1, S2. No definite gallops. ABDOMEN: Abdomen obese, nontender. No hepatosplenomegaly. EXTREMITIES: Trace edema. Taylor's negative. LABORATORY: WBC count 6.4, hematocrit 24.8, platelet count 63, (improving). Sodium 131, potassium 4.1, BUN 59, creatinine 0.54, and glucose 180 and 181 today. IMPRESSION: 1. Anemia status post gastrointestinal (GI) bleeding, which seems to have improved. 2. Acute on chronic renal failure on chronic hemodialysis. 3. Diabetes mellitus type 2, well controlled. 4. Morbid obesity. 5. Obstructive sleep apnea. 6. Congestive heart failure (GFR), improved. 7. Underlying major depression, which seems to be improving on low-dose Lexapro. PLAN: 1. Continue present management. 2. I have encouraged the patient to work with physical therapy. 3. Closely monitor renal function. 4. For further bleeding, transfuse as needed. Dictated By: Ivan Brice MD /[email or web address] /Document#: [id number]
[2017-02-28] MEDS: ESCITALOPRAM 10 MG TAB PO SCH (20:33)
[2017-02-28] MEDS: INSULIN GLARGINE [LANtus] 3 ML PEN SC SCH (20:41)
[2017-03-01] VITALS (13 sets, daily range): BP systolic 114–156; BP diastolic 55–107; PULSE 86–99; RESP 18–21
[2017-03-01] MEDS: ACCU-CHEK XX SCH (02:00)
[2017-03-01] MEDS: CIPROFLOXACIN 500 MG TAB PO SCH (05:47)
[2017-03-01] MEDS: PANTOPRAZOLE (EC) 40 MG TAB PO SCH ×2 (05:47→17:41)
[2017-03-01] MEDS: TRIAMCINOLONE ACET 0.1% 15 GM OINT TOP SCH ×2 (09:00→21:00)
[2017-03-01] MEDS: ALBUTEROL/IPRATROPIUM (NEB) 3 ML AMP HHN SCH ×4 (09:00→21:00)
[2017-03-01] MEDS: SALMETEROL/FLUTICASONE 250/50 INHA INH SCH ×2 (09:14→21:27)
[2017-03-01] MEDS: MULTIVITAMINS THERAPEUTIC TAB PO SCH (09:15)
[2017-03-01] MEDS: MEGESTROL (40 MG/ML) 10ML CUP PO SCH ×2 (09:15→21:00)
[2017-03-01] MEDS: FUROSEMIDE 40 MG TAB PO SCH (09:15)
[2017-03-01] MEDS: NIFEdipine (XL) 30 MG TAB PO SCH (09:15)
[2017-03-01] MEDS: INSULIN ASPART [NOVOLOG] 3 ML PEN SC SCH ×4 (09:17→21:25)
--- NOTE | 2017-03-01 10:38 | PN ---
Date/Time of Note Date/Time of Note DATE: 03/01/17 TIME: 10:36 Assessment/Plan VTE Prophylaxis VTE Prophylaxis Intervention: other (thrombocytopenia) Lines/Catheters [facility] Urinary Cath still in place: No Assessment/Plan Assessment/Plan Pt is stable. I will recheck labs in the morning. Note that next dialysis is likely to be done on 03/03. No bleeding or bruising noted on exam. Subjective 24 Hr Interval Summary Free Text/Dictation No new issues. No bleeding. Exam/Review of Systems Vital Signs Vitals Vital Signs Date Time Temp Pulse Resp B/P Pulse Ox O2 Delivery O2 Flow Rate FiO2 03/01/17 08:48 98.1 89 18 143/63 97 Intake and Output 02/28/17 02/28/17 03/01/17 15:00 23:00 07:00 Intake Total 400 ml 950 ml 120 ml Output Total 2400 ml Balance -2000 ml 950 ml 120 ml Exam Constitutional: alert, obese, oriented Head: normocephalic Eyes: nl conjunctiva, other (pallor) Neck: supple Respiratory: clear to auscultation Gastrointestinal: soft Results Result Diagram: 02/28/17 0614 02/28/17 0614 Results 24 hrs Laboratory Tests Test 02/28/17 11:39 02/28/17 17:09 02/28/17 20:36 03/01/17 02:25 Bedside Glucose 181 250 H 248 H 217 Test 03/01/17 08:31 Bedside Glucose 213 Medications Medications Current Medications Acetaminophen (Tylenol Tab) 500 mg Q6H PRN PO PAIN AND OR ELEVATED TEMP Last administered on 02/27/17 06:13; Admin Dose 500 MG; Start 02/23/17 at 19:00 Epoetin Sean (Epogen (Esrd)) 10,000 units MoWeFr@17 SC Last administered on 17:33; Admin Dose 10,000 UNITS; Start 02/25/17 at 17:00 Furosemide (Lasix) 40 mg DAILY PO Last administered on 03/01/17 09:15; Admin Dose 40 MG; Start 02/24/17 at 09:00 Hydroxyzine HCl (Atarax) 10 mg Q6H PRN PO ITCHING; Start 02/23/17 at 19:00 Lactulose (Enulose) 30 gm HS PO ; Start 02/23/17 at 21:00; Status Future Hold Lactulose (Enulose) 20 gm Q6 PRN PO CONSTIPATION; Start 02/23/17 at 19:00 Megestrol Acetate (Megace Susp) 400 mg BID PO Last administered on 03/01/17 09 :15; Admin Dose 400 MG; Start 02/23/17 at 21:00 Multivitamins Therapeutic (Theragran) 1 tab DAILY PO Last administered on 09:15; Admin Dose 1 TAB; Start 02/24/17 at 09:00 Nifedipine (Procardia Xl) 30 mg DAILY PO Last administered on 03/01/17 09:15; Admin Dose 30 MG; Start 02/24/17 at 09:00 Nitroglycerin (Nitroglycerin (Sl Tab) 0.4 Mg) 1 tab Q5M PRN SL ANGINA; Start at 19:00 Ondansetron HCl (Zofran Inj) 4 mg Q4H PRN IV NAUSEA AND/OR VOMITING; Start at 19:00 Promethazine HCl/ Dextromethorphan (Phenergan-Dm) 10 ml TID PRN PO COUGH; Start 02/23/17 at 19:00 Salmeterol Xinafoate/ Fluticasone (Advair 250/50 Diskus) 1 inh BID INH Last administered on 03/01/17 09:14; Admin Dose 1 INH; Start 02/23/17 at 21:00 Triamcinolone Acetonide (Kenalog 0.1% Oint) 1 applic BID TOP Last administered on 02/28/17 20:35; Admin Dose 1 APPLIC; Start 02/23/17 at 21:00 Diagnostic Test (Pha) (Accu-Chek) 1 ea 02 XX Last administered on 02/27/17 02: 43; Admin Dose 1 EA; Start 02/24/17 at 02:00 Escitalopram Oxalate (Lexapro) 10 mg QHS PO Last administered on 02/28/17 20: 33; Admin Dose 10 MG; Start 02/24/17 at 21:00 Ciprofloxacin (Cipro) 500 mg DAILY@06 PO Last administered on 03/01/17 05:47; Admin Dose 500 MG; Start 02/25/17 at 09:00 Pantoprazole (Protonix Tab) 40 mg BID@06,18 PO Last administered on 03/01/17 05:47; Admin Dose 40 MG; Start 02/26/17 at 18:00 Insulin Glargine (Lantus) 30 unit QHS SC Last administered on 02/28/17 20:41; Admin Dose 30 UNIT; Start 02/28/17 at 21:00 NICOLE REID MD Mar 01, 2017 10:38
--- NOTE | 2017-03-01 12:07 | CONS ---
Date/Time of Note Date/Time of Note DATE: 03/01/17 TIME: 12:05 Assessment/Plan Assessment/Plan Chief Complaint/Hosp Course 1. End-stage renal disease now requiring maintenance hemodialysis Thursday. He was dialyzed yesterday and 2000 cc of fluid was removed. His hemoglobin and hematocrit are stable at this time. He was quite thrombocytopenic and did receive platelets 2 days ago. He is due for dialysis in 2 days. I will order this for him. 2. Cirrhosis of the liver, he has a history of hepatitis C which was treated. He does have cirrhosis and has had hepatic encephalopathy which is now treated. His last ammonia level was normal. He is on lactulose. 3. Fluid overloaded now much improved 4. Anemia , he had some GI bleeding which has stopped. His H&H is stable. 5. Diabetes mellitus 6. Morbid obesity 7. Sleep apnea 8. Urinary tract infection , treated 9. Congestive heart failure , improved 10. Thrombocytopenia Problems: Consultation Date/Type/Reason Admit Date/Time Feb 23, 2017 at 17:22 Initial Consult Date 02/25/17 Type of Consultation: renal 24 HR Interval Summary Free Text/Dictation He said that he felt dizzy when he got up to walk today. He had hemodialysis yesterday. He said that he did not sleep well last night but did sleep this morning. Exam/Review of Systems Vital Signs Vitals Vital Signs Date Time Temp Pulse Resp B/P Pulse Ox O2 Delivery O2 Flow Rate FiO2 03/01/17 11:39 98.4 93 18 124/56 97 Intake and Output 02/28/17 02/28/17 03/01/17 15:00 23:00 07:00 Intake Total 400 ml 950 ml 120 ml Output Total 2400 ml Balance -2000 ml 950 ml 120 ml Exam Constitutional: alert, frail, obese, oriented Neck: supple Respiratory: clear to auscultation, normal air movement Cardiovascular: regular rate and rhythm Gastrointestinal: soft Musculoskeletal: nl extremities to inspection Results Result Diagram: 02/28/17 0614 02/28/17 0614 Results 24 hrs Laboratory Tests Test 02/28/17 17:09 02/28/17 20:36 03/01/17 02:25 03/01/17 08:31 Bedside Glucose 250 H 248 H 217 213 Medications Medications Current Medications Acetaminophen (Tylenol Tab) 500 mg Q6H PRN PO PAIN AND OR ELEVATED TEMP Last administered on 02/27/17 06:13; Admin Dose 500 MG; Start 02/23/17 at 19:00 Epoetin Sean (Epogen (Esrd)) 10,000 units MoWeFr@17 SC Last administered on 17:33; Admin Dose 10,000 UNITS; Start 02/25/17 at 17:00 Furosemide (Lasix) 40 mg DAILY PO Last administered on 03/01/17 09:15; Admin Dose 40 MG; Start 02/24/17 at 09:00 Hydroxyzine HCl (Atarax) 10 mg Q6H PRN PO ITCHING; Start 02/23/17 at 19:00 Lactulose (Enulose) 30 gm HS PO ; Start 02/23/17 at 21:00; Status Future Hold Lactulose (Enulose) 20 gm Q6 PRN PO CONSTIPATION; Start 02/23/17 at 19:00 Megestrol Acetate (Megace Susp) 400 mg BID PO Last administered on 03/01/17 09 :15; Admin Dose 400 MG; Start 02/23/17 at 21:00 Multivitamins Therapeutic (Theragran) 1 tab DAILY PO Last administered on 09:15; Admin Dose 1 TAB; Start 02/24/17 at 09:00 Nifedipine (Procardia Xl) 30 mg DAILY PO Last administered on 03/01/17 09:15; Admin Dose 30 MG; Start 02/24/17 at 09:00 Nitroglycerin (Nitroglycerin (Sl Tab) 0.4 Mg) 1 tab Q5M PRN SL ANGINA; Start at 19:00 Ondansetron HCl (Zofran Inj) 4 mg Q4H PRN IV NAUSEA AND/OR VOMITING; Start at 19:00 Promethazine HCl/ Dextromethorphan (Phenergan-Dm) 10 ml TID PRN PO COUGH; Start 02/23/17 at 19:00 Salmeterol Xinafoate/ Fluticasone (Advair 250/50 Diskus) 1 inh BID INH Last administered on 03/01/17 09:14; Admin Dose 1 INH; Start 02/23/17 at 21:00 Triamcinolone Acetonide (Kenalog 0.1% Oint) 1 applic BID TOP Last administered on 02/28/17 20:35; Admin Dose 1 APPLIC; Start 02/23/17 at 21:00 Diagnostic Test (Pha) (Accu-Chek) 1 ea 02 XX Last administered on 02/27/17 02: 43; Admin Dose 1 EA; Start 02/24/17 at 02:00 Escitalopram Oxalate (Lexapro) 10 mg QHS PO Last administered on 02/28/17 20: 33; Admin Dose 10 MG; Start 02/24/17 at 21:00 Ciprofloxacin (Cipro) 500 mg DAILY@06 PO Last administered on 03/01/17 05:47; Admin Dose 500 MG; Start 02/25/17 at 09:00 Pantoprazole (Protonix Tab) 40 mg BID@06,18 PO Last administered on 03/01/17 05:47; Admin Dose 40 MG; Start 02/26/17 at 18:00 Insulin Glargine (Lantus) 30 unit QHS SC Last administered on 02/28/17 20:41; Admin Dose 30 UNIT; Start 02/28/17 at 21:00 ANA MELENDEZ MD Mar 01, 2017 12:07
--- NOTE | 2017-03-01 14:24 | PN ---
DATE: 03/01/2017 SUBJECTIVE DATA: The patient is awake and comfortable. No bowel movements today. Complains of severe dizziness when trying to sit up. OBJECTIVE DATA: VITAL SIGNS: Temperature 98.4, heart rate is 92 per minute, regular. Blood pressure 156/107. HEENT: Mild pallor without cyanosis. Tongue is moist. Neck is supple. NECK: No thyromegaly. No lymphadenopathy. CHEST: Clinically clear. HEART: S1, S2. No definite gallops. ABDOMEN: Soft, nontender. No hepatosplenomegaly. EXTREMITIES: No edema. IMPRESSION: 1. Anemia, status post GI bleeding. Being monitored. 2. Acute on chronic renal failure on hemodialysis. 3. Diabetes mellitus type 2, well controlled. 4. Obesity. 5. Obstructive sleep apnea. 6. Congestive heart failure, improved. 7. Underlying major depression. Improving on low-dose Lexapro. 8. Thrombocytopenia. PLAN: We will continue physical therapy. Increase activity. Obtain orthostatic blood pressures. Recheck CBC in a.m. Dictated By: Ivan Brice MD /marlyn/ /Document#: [id number]
--- NOTE | 2017-03-01 17:09 | CONS ---
Date/Time of Note Date/Time of Note DATE: 03/01/17 TIME: 17:04 Assessment/Plan Assessment/Plan Additional Assessment/Plan 1) GI bleed likely a combination of coags being off due to cirrhosis, renal dsyfunction and low platelets however pt has known ascites and with GI bleed he is at increased risk for SBP and prophylaxis would be recommended Oral ciprofloxacin was started for this 02/28 - Hgb is stable overnight 2) thrombocytopenia, worsened by vanco followed by zyvox this will likely start to recover in the next few days continue off zyvox Platelets are going up and are not terribly low given the comorbidities 3)cirrhosis with ascites and GI bleeding SBP prophylaxis is recommended will start cipro 500mg QD for 7 days then can change to bactrim or cipro for further prophylaxis 02/27 - continue with po cipro for 7 days then continue some form of prophylaxis afterwards 4) ?UTI pt has no fever or elevated WBC unclear if he has an active infection but because of GI bleed will treat for SBP prophylaxis with cipro instead of ceftriaxone 02/28 - note that the E coli in the urine is resistant to fluoroquinolones, but patient is afebrile and plt and WBC stable to improved so will continue with cipro alone for now 5) hx of Hep c and successfully treated 6) DM 7) hx of gout 8) history of reaction to ceftriaxone Consultation Date/Type/Reason Admit Date/Time Feb 23, 2017 at 17:22 Initial Consult Date 02/25/17 Type of Consultation: Infectious Diseases 24 HR Interval Summary Free Text/Dictation No new positive cultures, HD yesterday. WBC is stable. No overnight events noted. Exam/Review of Systems Vital Signs Vitals Vital Signs Date Time Temp Pulse Resp B/P Pulse Ox O2 Delivery O2 Flow Rate FiO2 03/01/17 15:31 98.0 94 18 120/57 97 Intake and Output 02/28/17 02/28/17 03/01/17 15:00 23:00 07:00 Intake Total 400 ml 950 ml 120 ml Output Total 2400 ml Balance -2000 ml 950 ml 120 ml Exam Constitutional: alert, oriented Head: normocephalic Eyes: nl sclera ENMT: mucosa pink and moist Respiratory: clear to auscultation Cardiovascular: regular rate and rhythm Gastrointestinal: non-tender, soft Results Result Diagram: 8/19/17 0614 8/19/17 0614 Results 24 hrs Laboratory Tests Test 02/28/17 17:09 02/28/17 20:36 03/01/17 02:25 03/01/17 08:31 Bedside Glucose 250 H 248 H 217 213 Test 03/01/17 12:11 Bedside Glucose 227 H Medications Medications Current Medications Acetaminophen (Tylenol Tab) 500 mg Q6H PRN PO PAIN AND OR ELEVATED TEMP Last administered on 02/27/17 06:13; Admin Dose 500 MG; Start 02/23/17 at 19:00 Epoetin Sean (Epogen (Esrd)) 10,000 units MoWeFr@17 SC Last administered on 17:33; Admin Dose 10,000 UNITS; Start 02/25/17 at 17:00 Furosemide (Lasix) 40 mg DAILY PO Last administered on 03/01/17 09:15; Admin Dose 40 MG; Start 02/24/17 at 09:00 Hydroxyzine HCl (Atarax) 10 mg Q6H PRN PO ITCHING; Start 02/23/17 at 19:00 Lactulose (Enulose) 30 gm HS PO ; Start 02/23/17 at 21:00; Status Future Hold Lactulose (Enulose) 20 gm Q6 PRN PO CONSTIPATION; Start 02/23/17 at 19:00 Megestrol Acetate (Megace Susp) 400 mg BID PO Last administered on 03/01/17 09 :15; Admin Dose 400 MG; Start 02/23/17 at 21:00 Multivitamins Therapeutic (Theragran) 1 tab DAILY PO Last administered on 09:15; Admin Dose 1 TAB; Start 02/24/17 at 09:00 Nifedipine (Procardia Xl) 30 mg DAILY PO Last administered on 03/01/17 09:15; Admin Dose 30 MG; Start 02/24/17 at 09:00 Nitroglycerin (Nitroglycerin (Sl Tab) 0.4 Mg) 1 tab Q5M PRN SL ANGINA; Start at 19:00 Ondansetron HCl (Zofran Inj) 4 mg Q4H PRN IV NAUSEA AND/OR VOMITING; Start at 19:00 Promethazine HCl/ Dextromethorphan (Phenergan-Dm) 10 ml TID PRN PO COUGH; Start 02/23/17 at 19:00 Salmeterol Xinafoate/ Fluticasone (Advair 250/50 Diskus) 1 inh BID INH Last administered on 03/01/17 09:14; Admin Dose 1 INH; Start 02/23/17 at 21:00 Triamcinolone Acetonide (Kenalog 0.1% Oint) 1 applic BID TOP Last administered on 02/28/17 20:35; Admin Dose 1 APPLIC; Start 02/23/17 at 21:00 Diagnostic Test (Pha) (Accu-Chek) 1 ea 02 XX Last administered on 02/27/17 02: 43; Admin Dose 1 EA; Start 02/24/17 at 02:00 Escitalopram Oxalate (Lexapro) 10 mg QHS PO Last administered on 02/28/17 20: 33; Admin Dose 10 MG; Start 02/24/17 at 21:00 Ciprofloxacin (Cipro) 500 mg DAILY@06 PO Last administered on 03/01/17 05:47; Admin Dose 500 MG; Start 02/25/17 at 09:00 Pantoprazole (Protonix Tab) 40 mg BID@06,18 PO Last administered on 03/01/17 05:47; Admin Dose 40 MG; Start 02/26/17 at 18:00 Insulin Glargine (Lantus) 30 unit QHS SC Last administered on 02/28/17 20:41; Admin Dose 30 UNIT; Start 02/28/17 at 21:00 LEMUEL BERMAN Mar 01, 2017 17:09
--- NOTE | 2017-03-01 21:01 | CONS ---
Date/Time of Note Date/Time of Note DATE: 03/01/17 TIME: 20:59 Assessment/Plan Assessment/Plan Additional Assessment/Plan Additional Assessment/Plan 1. Melena, bleeding seems to have stopped hematocrit is stable, 2. Cirrhosis of liver 3. Diabetes mellitus 4. End-stage kidney disease on dialysis 5. 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 Exam/Review of Systems Vital Signs Vitals Vital Signs Date Time Temp Pulse Resp B/P Pulse Ox O2 Delivery O2 Flow Rate FiO2 03/01/17 20:32 90 03/01/17 20:17 98.5 21 133/56 98 Intake and Output 02/28/17 02/28/17 03/01/17 15:00 23:00 07:00 Intake Total 400 ml 950 ml 120 ml Output Total 2400 ml Balance -2000 ml 950 ml 120 ml Exam Constitutional: alert, oriented, well developed Psych: nl mood/affect, no complaints Head: atraumatic, normocephalic Eyes: EOMI, PERRL, nl conjunctiva, nl lids, nl sclera ENMT: nl external ears & nose, nl lips & teeth, nl nasal mucosa & septum Neck: non-tender, supple Respiratory: clear to auscultation, normal air movement Cardiovascular: nl pulses, regular rate and rhythm Gastrointestinal: nl liver, spleen, non-tender, soft Musculoskeletal: nl extremities to inspection, nl gait and stance Extremities: normal pulses 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: 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 intact, nl mental status, nl speech, nl strength Skin: nl turgor, No rash or lesions Lymph: nl lymph nodes Results Result Diagram: 02/28/1714 02/28/1714 Results 24 hrs Laboratory Tests Test 03/01/17 02:25 03/01/17 08:31 03/01/17 12:11 03/01/17 17:36 Bedside Glucose 217 213 227 H 243 H Medications Medications Current Medications Acetaminophen (Tylenol Tab) 500 mg Q6H PRN PO PAIN AND OR ELEVATED TEMP Last administered on 02/27/17t 06:13; Admin Dose 500 MG; Start 02/23/17 at 19:00 Epoetin Sean (Epogen (Esrd)) 10,000 units MoWeFr@17 SC Last administered on 17:33; Admin Dose 10,000 UNITS; Start 02/25/17 at 17:00 Furosemide (Lasix) 40 mg DAILY PO Last administered on 03/01/17 09:15; Admin Dose 40 MG; Start 02/24/17 at 09:00 Hydroxyzine HCl (Atarax) 10 mg Q6H PRN PO ITCHING; Start 02/23/17 at 19:00 Lactulose (Enulose) 30 gm HS PO ; Start 02/23/17 at 21:00; Status Future Hold Lactulose (Enulose) 20 gm Q6 PRN PO CONSTIPATION; Start 02/23/17 at 19:00 Megestrol Acetate (Megace Susp) 400 mg BID PO Last administered on 03/01/17 09 :15; Admin Dose 400 MG; Start 02/23/17 at 21:00 Multivitamins Therapeutic (Theragran) 1 tab DAILY PO Last administered on 09:15; Admin Dose 1 TAB; Start 02/24/17 at 09:00 Nifedipine (Procardia Xl) 30 mg DAILY PO Last administered on 03/01/17 09:15; Admin Dose 30 MG; Start 02/24/17 at 09:00 Nitroglycerin (Nitroglycerin (Sl Tab) 0.4 Mg) 1 tab Q5M PRN SL ANGINA; Start at 19:00 Ondansetron HCl (Zofran Inj) 4 mg Q4H PRN IV NAUSEA AND/OR VOMITING; Start at 19:00 Promethazine HCl/ Dextromethorphan (Phenergan-Dm) 10 ml TID PRN PO COUGH; Start 02/23/17 at 19:00 Salmeterol Xinafoate/ Fluticasone (Advair 250/50 Diskus) 1 inh BID INH Last administered on 03/01/17 09:14; Admin Dose 1 INH; Start 02/23/17 at 21:00 Triamcinolone Acetonide (Kenalog 0.1% Oint) 1 applic BID TOP Last administered on 02/28/17 20:35; Admin Dose 1 APPLIC; Start 02/23/17 at 21:00 Diagnostic Test (Pha) (Accu-Chek) 1 ea 02 XX Last administered on 02/27/17 02: 43; Admin Dose 1 EA; Start 02/24/17 at 02:00 Escitalopram Oxalate (Lexapro) 10 mg QHS PO Last administered on 02/28/17 20: 33; Admin Dose 10 MG; Start 02/24/17 at 21:00 Ciprofloxacin (Cipro) 500 mg DAILY@06 PO Last administered on 03/01/17 05:47; Admin Dose 500 MG; Start 02/25/17 at 09:00 Pantoprazole (Protonix Tab) 40 mg BID@06,18 PO Last administered on 03/01/17 17:41; Admin Dose 40 MG; Start 02/26/17 at 18:00 Insulin Glargine (Lantus) 30 unit QHS SC Last administered on 02/28/17 20:41; Admin Dose 30 UNIT; Start 02/28/17 at 21:00 STUART STANLEY MD Mar 01, 2017 21:01
[2017-03-01] MEDS: INSULIN GLARGINE [LANtus] 3 ML PEN SC SCH (21:24)
[2017-03-01] MEDS: ESCITALOPRAM 10 MG TAB PO SCH (21:27)
[2017-03-02] VITALS (12 sets, daily range): BP systolic 137–155; BP diastolic 63–70; PULSE 88–103; RESP 16–22
[2017-03-02] MEDS: ACCU-CHEK XX SCH (02:56)
[2017-03-02] MEDS: CIPROFLOXACIN 500 MG TAB PO SCH (06:10)
[2017-03-02] MEDS: PANTOPRAZOLE (EC) 40 MG TAB PO SCH ×2 (06:10→17:32)
[2017-03-02 06:42] LABS: BASOPHILS % 0.6 % (0.0-2.0); EOSINOPHILS # 0.4 10^3/ul (0.0-0.5); EOSINOPHILS % 6.3 % (0.0-7.0); HEMATOCRIT 23.8 % (42.0-52.0); HEMOGLOBIN 7.9 g/dl (14.0-18.0); LYMPHOCYTES # 1.6 10^3/ul (0.8-2.9); LYMPHOCYTES % 23.8 % (15.0-51.0); MEAN CORPUSCULAR HGB CONC 33.2 g/dl (32.0-37.0); MEAN CORPUSCULAR VOLUME 81.2 fl (82.0-101.0); MEAN PLATELET VOLUME 11.6 fl (7.4-10.4); MONOCYTE # 0.6 10^3/ul (0.3-0.9); NEUTROPHILS % 59.3 % (39.0-77.0); PLATELET COUNT 116 10^3/UL (140-415); RED BLOOD COUNT 2.93 10^6/ul (4.70-6.10); RED CELL DISTRIBUTION WIDTH 16.5 % (11.5-14.5); WHITE BLOOD COUNT 6.9 10^3/ul (4.8-10.8)
--- NOTE | 2017-03-02 07:40 | CONS ---
Date/Time of Note Date/Time of Note DATE: 03/02/17 TIME: 07:36 Assessment/Plan Assessment/Plan Chief Complaint/Hosp Course 1)GI bleed likely a combination of coags being off due to cirrhosis, renal dsyfunction and low platelets however pt has known ascites and with GI bleed he is at increased risk for SBP and prophylaxis would be recommended will start po cipro for this 02/27 - Hgb is stable but a.m. labs are pending 03/02 - no further bleeding 2) thrombocytopenia, worsened by vanco followed by zyvox this will likely start to recover in the next few days continue off zyvox 02/27 - pt got plt tx late 02/25/ early 02/26 await a.m. labs, if zyvox is the cause then platelets should recover over the weekend 03/02 - platelets have recovered, likely etiology was the zyvox ( thrombocytopenia is more likely when vanco preceeds zyvox) 3)cirrhosis with ascites and GI bleeding SBP prophylaxis is recommended will start cipro 500mg QD for 7 days then can change to bactrim or cipro for further prophylaxis 02/27 - continue with po cipro for 7 days then continue some form of prophylaxis afterwards 03/02 - after pt is done with cipro for 7 days (on 03/04) then start cipro 250 mg QD for prophylaxis 4) ?UTI pt has no fever or elevated WBC unclear if he has an active infection but because of GI bleed will treat for SBP prophylaxis with cipro instead of ceftriaxone 03/02 - doubt pt has uti, will repeat u/a and urine cx, everytime it is different organisms, normal WBC and no fevers 5) hx of Hep c and successfully treated 6) DM 7) hx of gout Problems: Consultation Date/Type/Reason Admit Date/Time Feb 23, 2017 at 17:22 Initial Consult Date 02/25/17 Type of Consultation: Infectious Diseases 24 HR Interval Summary Free Text/Dictation pt has minimal dysuria at this time no N, V, D, SOB no further bleeding Exam/Review of Systems Vital Signs Vitals Vital Signs Date Time Temp Pulse Resp B/P Pulse Ox O2 Delivery O2 Flow Rate FiO2 03/02/17 04:39 99.1 89 21 155/66 99 Intake and Output 03/01/17 03/01/17 03/02/17 15:00 23:00 07:00 Intake Total 80 ml Balance 80 ml Exam Constitutional: alert, oriented Head: normocephalic ENMT: mucosa pink and moist Respiratory: clear to auscultation Cardiovascular: regular rate and rhythm Gastrointestinal: non-tender, soft Results Result Diagram: 03/02/17 0603 02/28/17 0614 Results 24 hrs Laboratory Tests Test 03/01/17 08:31 03/01/17 12:11 03/01/17 17:36 03/01/17 21:18 Bedside Glucose 213 227 H 243 H 246 H Test 03/02/17 02:52 03/02/17 06:03 Bedside Glucose 192 White Blood Count 6.9 Red Blood Count 2.93 L Hemoglobin 7.9 L Hematocrit 23.8 L Mean Corpuscular Volume 81.2 L Mean Corpuscular Hemoglobin 27.0 L Mean Corpuscular Hemoglobin Concent 33.2 Red Cell Distribution Width 16.5 H Platelet Count 116 #L Mean Platelet Volume 11.6 H Neutrophils % 59.3 Lymphocytes % 23.8 Monocytes % 9.0 Eosinophils % 6.3 Basophils % 0.6 Nucleated Red Blood Cells % 0.0 Neutrophils # (Manual) 4 Lymphocytes # 1.6 Monocytes # 0.6 Eosinophils # 0.4 Basophils # 0.0 Nucleated Red Blood Cells # 0.0 Medications Medications Current Medications Acetaminophen (Tylenol Tab) 500 mg Q6H PRN PO PAIN AND OR ELEVATED TEMP Last administered on 02/27/17 06:13; Admin Dose 500 MG; Start 02/23/17 at 19:00 Epoetin Sean (Epogen (Esrd)) 10,000 units MoWeFr@17 SC Last administered on 17:33; Admin Dose 10,000 UNITS; Start 02/25/17 at 17:00 Furosemide (Lasix) 40 mg DAILY PO Last administered on 03/01/17 09:15; Admin Dose 40 MG; Start 02/24/17 at 09:00 Hydroxyzine HCl (Atarax) 10 mg Q6H PRN PO ITCHING; Start 02/23/17 at 19:00 Lactulose (Enulose) 30 gm HS PO ; Start 02/23/17 at 21:00; Status Future Hold Lactulose (Enulose) 20 gm Q6 PRN PO CONSTIPATION; Start 02/23/17 at 19:00 Megestrol Acetate (Megace Susp) 400 mg BID PO Last administered on 03/01/17 09 :15; Admin Dose 400 MG; Start 02/23/17 at 21:00 Multivitamins Therapeutic (Theragran) 1 tab DAILY PO Last administered on 09:15; Admin Dose 1 TAB; Start 02/24/17 at 09:00 Nifedipine (Procardia Xl) 30 mg DAILY PO Last administered on 03/01/17 09:15; Admin Dose 30 MG; Start 02/24/17 at 09:00 Nitroglycerin (Nitroglycerin (Sl Tab) 0.4 Mg) 1 tab Q5M PRN SL ANGINA; Start at 19:00 Ondansetron HCl (Zofran Inj) 4 mg Q4H PRN IV NAUSEA AND/OR VOMITING; Start at 19:00 Promethazine HCl/ Dextromethorphan (Phenergan-Dm) 10 ml TID PRN PO COUGH; Start 02/23/17 at 19:00 Salmeterol Xinafoate/ Fluticasone (Advair 250/50 Diskus) 1 inh BID INH Last administered on 03/01/17 21:27; Admin Dose 1 INH; Start 02/23/17 at 21:00 Triamcinolone Acetonide (Kenalog 0.1% Oint) 1 applic BID TOP Last administered on 02/28/17 20:35; Admin Dose 1 APPLIC; Start 02/23/17 at 21:00 Diagnostic Test (Pha) (Accu-Chek) 1 ea 02 XX Last administered on 03/02/17 02: 56; Admin Dose 1 EA; Start 02/24/17 at 02:00 Escitalopram Oxalate (Lexapro) 10 mg QHS PO Last administered on 03/01/17 21: 27; Admin Dose 10 MG; Start 02/24/17 at 21:00 Ciprofloxacin (Cipro) 500 mg DAILY@06 PO Last administered on 03/02/17 06:10; Admin Dose 500 MG; Start 02/25/17 at 09:00 Pantoprazole (Protonix Tab) 40 mg BID@06,18 PO Last administered on 03/02/17 06:10; Admin Dose 40 MG; Start 02/26/17 at 18:00 Insulin Glargine (Lantus) 30 unit QHS SC Last administered on 03/01/17t 21:24; Admin Dose 30 UNIT; Start 02/28/17 at 21:00 DANYEL HART MD Mar 02, 2017 07:40
[2017-03-02] MEDS: INSULIN ASPART [NOVOLOG] 3 ML PEN SC SCH ×4 (07:58→21:07)
[2017-03-02] MEDS: ALBUTEROL/IPRATROPIUM (NEB) 3 ML AMP HHN SCH ×4 (08:13→21:00)
[2017-03-02] MEDS: FUROSEMIDE 40 MG TAB PO SCH (08:25)
[2017-03-02] MEDS: NIFEdipine (XL) 30 MG TAB PO SCH (08:25)
[2017-03-02] MEDS: MULTIVITAMINS THERAPEUTIC TAB PO SCH (08:26)
[2017-03-02] MEDS: MEGESTROL (40 MG/ML) 10ML CUP PO SCH ×2 (08:26→20:52)
[2017-03-02] MEDS: SALMETEROL/FLUTICASONE 250/50 INHA INH SCH ×2 (08:26→20:53)
[2017-03-02] MEDS: TRIAMCINOLONE ACET 0.1% 15 GM OINT TOP SCH ×2 (08:26→20:53)
--- NOTE | 2017-03-02 10:27 | CONS ---
Date/Time of Note Date/Time of Note DATE: 03/02/17 TIME: 10:22 Assessment/Plan Assessment/Plan Chief Complaint/Hosp Course 1. End-stage renal disease now requiring maintenance hemodialysis Thursday. His hemoglobin and hematocrit are drifting down. He is due for hemodialysis tomorrow which I will order. 2. Cirrhosis of the liver, he has a history of hepatitis C which was treated. He does have cirrhosis and has had hepatic encephalopathy which is now treated. His last ammonia level was normal. He is on lactulose. 3. Fluid overloaded now much improved 4. Anemia , he had some GI bleeding which has stopped. His H&H is drifting down. 5. Diabetes mellitus 6. Morbid obesity 7. Sleep apnea 8. Urinary tract infection , treated 9. Congestive heart failure , improved 10. Thrombocytopenia, his platelet count is higher. Probably due to antibiotics that he was on. Problems: Consultation Date/Type/Reason Admit Date/Time Feb 23, 2017 at 17:22 Initial Consult Date 02/25/17 Type of Consultation: Infectious Diseases 24 HR Interval Summary Free Text/Dictation He is in bed. He denies any new problems. He has not been up walking more than in his room today. He will have physical therapy several times today. Constitutional: no complaints Exam/Review of Systems Vital Signs Vitals Vital Signs Date Time Temp Pulse Resp B/P Pulse Ox O2 Delivery O2 Flow Rate FiO2 03/02/17 09:09 103 03/02/17 07:38 97.6 20 140/64 98 Intake and Output 03/01/17 03/01/17 03/02/17 15:00 23:00 07:00 Intake Total 80 ml Balance 80 ml Exam Constitutional: alert, frail, obese, oriented ENMT: nl external ears & nose Respiratory: clear to auscultation, normal air movement Cardiovascular: regular rate and rhythm Gastrointestinal: soft Musculoskeletal: nl extremities to inspection Results Result Diagram: 03/02/17 0603 02/28/17 0614 Results 24 hrs Laboratory Tests Test 03/01/17 12:11 03/01/17 17:36 03/01/17 21:18 03/02/17 02:52 Bedside Glucose 227 H 243 H 246 H 192 Test 03/02/17 06:03 03/02/17 07:46 White Blood Count 6.9 Red Blood Count 2.93 L Hemoglobin 7.9 L Hematocrit 23.8 L Mean Corpuscular Volume 81.2 L Mean Corpuscular Hemoglobin 27.0 L Mean Corpuscular Hemoglobin Concent 33.2 Red Cell Distribution Width 16.5 H Platelet Count 116 #L Mean Platelet Volume 11.6 H Neutrophils % 59.3 Lymphocytes % 23.8 Monocytes % 9.0 Eosinophils % 6.3 Basophils % 0.6 Nucleated Red Blood Cells % 0.0 Neutrophils # (Manual) 4 Lymphocytes # 1.6 Monocytes # 0.6 Eosinophils # 0.4 Basophils # 0.0 Nucleated Red Blood Cells # 0.0 Bedside Glucose 155 Medications Medications Current Medications Acetaminophen (Tylenol Tab) 500 mg Q6H PRN PO PAIN AND OR ELEVATED TEMP Last administered on 02/27/17 06:13; Admin Dose 500 MG; Start 02/23/17 at 19:00 Epoetin Sean (Epogen (Esrd)) 10,000 units MoWeFr@17 SC Last administered on 17:33; Admin Dose 10,000 UNITS; Start 02/25/17 at 17:00 Furosemide (Lasix) 40 mg DAILY PO Last administered on 03/02/17 08:25; Admin Dose 40 MG; Start 02/24/17 at 09:00 Hydroxyzine HCl (Atarax) 10 mg Q6H PRN PO ITCHING; Start 02/23/17 at 19:00 Lactulose (Enulose) 30 gm HS PO ; Start 02/23/17 at 21:00; Status Future Hold Lactulose (Enulose) 20 gm Q6 PRN PO CONSTIPATION; Start 02/23/17 at 19:00 Megestrol Acetate (Megace Susp) 400 mg BID PO Last administered on 03/01/17 09 :15; Admin Dose 400 MG; Start 02/23/17 at 21:00 Multivitamins Therapeutic (Theragran) 1 tab DAILY PO Last administered on 08:26; Admin Dose 1 TAB; Start 02/24/17 at 09:00 Nifedipine (Procardia Xl) 30 mg DAILY PO Last administered on 03/02/17 08:25; Admin Dose 30 MG; Start 02/24/17 at 09:00 Nitroglycerin (Nitroglycerin (Sl Tab) 0.4 Mg) 1 tab Q5M PRN SL ANGINA; Start at 19:00 Ondansetron HCl (Zofran Inj) 4 mg Q4H PRN IV NAUSEA AND/OR VOMITING; Start at 19:00 Promethazine HCl/ Dextromethorphan (Phenergan-Dm) 10 ml TID PRN PO COUGH; Start 02/23/17 at 19:00 Salmeterol Xinafoate/ Fluticasone (Advair 250/50 Diskus) 1 inh BID INH Last administered on 03/02/17 08:26; Admin Dose 1 INH; Start 02/23/17 at 21:00 Triamcinolone Acetonide (Kenalog 0.1% Oint) 1 applic BID TOP Last administered on 02/28/17 20:35; Admin Dose 1 APPLIC; Start 02/23/17 at 21:00 Diagnostic Test (Pha) (Accu-Chek) 1 ea 02 XX Last administered on 03/02/17 02: 56; Admin Dose 1 EA; Start 02/24/17 at 02:00 Escitalopram Oxalate (Lexapro) 10 mg QHS PO Last administered on 03/01/17 21: 27; Admin Dose 10 MG; Start 02/24/17 at 21:00 Ciprofloxacin (Cipro) 500 mg DAILY@06 PO Last administered on 03/02/17 06:10; Admin Dose 500 MG; Start 02/25/17 at 09:00 Pantoprazole (Protonix Tab) 40 mg BID@06,18 PO Last administered on 03/02/17 06:10; Admin Dose 40 MG; Start 02/26/17 at 18:00 Insulin Glargine (Lantus) 30 unit QHS SC Last administered on 03/01/17 21:24; Admin Dose 30 UNIT; Start 02/28/17 at 21:00 ANA MELENDEZ MD Mar 02, 2017 10:27
[2017-03-02 12:17] LABS: ADD UMIC YES; UR ASCORBIC ACID NEGATIVE (NEGATIVE); UR BACTERIA FEW /HPF (NONE SEEN); UR BILIRUBIN (Dip) NEGATIVE (NEGATIVE); UR BLOOD (Dip) 3+ mg/dL (NEGATIVE); UR CLARITY TURBID (CLEAR); UR COLOR AMBER (YELLOW); UR GLUCOSE (Dip) 1+ mg/dL (NEGATIVE); UR KETONES (Dip) NEGATIVE (NEGATIVE); UR LEUKOCYTE ESTERASE (Dip) 3+ Leu/ul (NEGATIVE); UR NITRITE (Dip) NEGATIVE (NEGATIVE); UR RBC > 182 /HPF (0-5); UR SPECIFIC GRAVITY (Dip) 1.018 (1.003-1.030); UR SQUAMOUS EPITHELIAL CELL MODERATE /HPF (FEW); UR TOTAL PROTEIN (Dip) 3+ mg/dl (NEGATIVE); UR UROBILINOGEN (Dip) NEGATIVE (NEGATIVE); UR WBC CLUMPS MANY /HPF (NONE SEEN)
--- NOTE | 2017-03-02 14:38 | PN ---
DATE: 03/02/2017 SUBJECTIVE: Patient complains of recurrent dizziness and generalized weakness. PO intake slightly improved. Appetite slightly improved. PHYSICAL EXAM: Patient is awake, temperature 98.1, blood pressure 141/63, O2 sat 99 percent. GENERAL: Mild pallor. No cyanosis or icterus. CHEST: Clinically clear. HEART: S1, S2. No rubs or gallops. ABDOMEN: Obese, nontender. EXTREMITIES: No edema. LABORATORY: WBC count 6.9, hematocrit 23.8, hemoglobin 7.9, platelet 116,000. Glucose 192, 155, and 195. IMPRESSION: 1. Anemia with thrombocytopenia improving. Thrombocytopenia, improved. 2. Acute on chronic renal failure, end-stage renal disease on hemodialysis. 3. Hepatic cirrhosis with portal hypertension status post hepatitis C. No evidence of hepatic encephalopathy. 4. Congestive heart failure, resolved. 5. Diabetes mellitus type 2. 6. Morbid obesity with obstructive sleep apnea. 7. Status post urinary tract infection. PLAN: We will continue physical therapy. Increase activity. Continue nephrology recommendations per Dr. Castro. The patient states that he still has tarry stools. Will closely need to monitor for further GI bleeding. Will repeat labs in a.m. Dictated By: Ivan Brice MD /marlyn/[place] /Document#: [id number]
[2017-03-02] MEDS ORDERED: GLUCOSE GEL 15 GRAM TUBE BUCCAL PRN (15:00)
[2017-03-02] MEDS ORDERED: GLUCOSE GEL 15 GRAM TUBE PO PRN ×2 (15:00)
[2017-03-02] MEDS ORDERED: GLUCAGON 1 MG INJ IM PRN (15:00)
[2017-03-02] MEDS ORDERED: DEXTROSE 50% 50 ML SYRINGE IV PRN ×2 (15:00)
[2017-03-02] MEDS: EPOETIN 10000 UNITS/1 ML INJ (ESRD) SC SCH (18:39)
[2017-03-02] MEDS: ESCITALOPRAM 10 MG TAB PO SCH (20:52)
--- NOTE | 2017-03-02 20:54 | PN ---
DATE: 03/02/2017 HEMATOLOGY PROGRESS NOTE: SUBJECTIVE: Patient is feeling better. He has no new complaints at this time. He has had no complaints of unusual bruising or bleeding. OBJECTIVE DATA: GENERAL: The patient is a well-developed, well-nourished, but obese male in no acute distress. VITAL SIGNS: Temperature 98.2, pulse 97, respirations 16 per minute, blood pressure 130/70, and pulse oximetry is 100 percent. SKIN: No ecchymosis, no petechiae or rashes. HEENT: Normocephalic. No evidence of trauma. Pupils equal, round, react to light and accommodation. Sclerae are nonicteric. Oral mucosa is moist without lesions. Tongue is well papillated. There is no gingival hyperplasia. No hypertrophy of Waldeyer's ring. NECK: Supple. No jugular distention, thyroid enlargement, or carotid bruits. CHEST: Clear to auscultation and percussion. No rhonchi, wheezes, rales, or rubs. There is a tunneled dialysis catheter in the right anterior chest in subclavian area. HEART: Regular sinus rhythm. No S3 or S4. There is a grade 3/6 systolic murmur heard along the left sternal border which radiates to the left axilla, does not radiate to the neck. NODES: No palpable lymphadenopathy in lymph node bearing area. ABDOMEN: Obese, no masses. No ascites. EXTREMITIES: No clubbing, edema, or cyanosis. There is an AV fistula on the medial aspect of the right humeral area. LABORATORY AND DIAGNOSTIC DATA: White count 6900 with an absolute neutrophil count of 4000, hemoglobin 7.9, hematocrit 23.8, MCV 81.2, MCH is 27, MCHC 33.2, RDW 15.6, and platelet count 116,000. Serum immunofixation does actually show normal pattern there no monoclonal proteins detected. The urine immunofixation also showed shows normal pattern. ASSESSMENT: 1. Post hepatic cirrhosis with portal hypertension. 2. Thrombocytopenia resolved. 3. End-stage kidney disease on hemodialysis. 4. Diabetes mellitus. 5. Probable gastrointestinal bleeding. PLAN: The patient's platelet count has improved. Today the platelets are 116,000. This is consistent with the patient's splenic sequestration. As previously noted, I feel that the patient's thrombocytopenia on admission was drug induced with the most likely medication being the linezolid that was then discontinued on 02/21/2017. The recovery period of time is consistent with this as being the offending agent. Heparin-induced antiplatelet antibodies are negative. Still pending are the antiplatelet antibodies. Dictated By: Jh Fox MD /marlyn/[place] /Document#: [id number]
[2017-03-02] MEDS: INSULIN GLARGINE [LANtus] 3 ML PEN SC SCH (21:07)
--- NOTE | 2017-03-02 21:43 | CONS ---
Date/Time of Note Date/Time of Note DATE: 03/02/17 TIME: 21:39 Assessment/Plan Assessment/Plan Additional Assessment/Plan Additional Assessment/Plan 1. Melena, bleeding seems to have stopped hematocrit is stable, 2. Cirrhosis of liver 3. Diabetes mellitus 4. End-stage kidney disease on dialysis 5. Thrombocytopenia, platelet count is now 62,000 Plan Continue PPI Monitor H&H EGD on Thursday,g.i[facility]lab couldn't accommodate tomorrow Consultation Date/Type/Reason Admit Date/Time Feb 23, 2017 at 17:22 Initial Consult Date 02/25/17 Type of Consultation: Infectious Diseases 24 HR Interval Summary Constitutional: improved Exam/Review of Systems Vital Signs Vitals Vital Signs Date Time Temp Pulse Resp B/P Pulse Ox O2 Delivery O2 Flow Rate FiO2 03/02/17 20:53 94 03/02/17 19:45 98.2 16 137/70 100 Intake and Output 03/01/17 03/01/17 03/02/17 15:00 23:00 07:00 Intake Total 80 ml Balance 80 ml Exam Constitutional: alert, oriented, well developed Psych: nl mood/affect, no complaints Head: atraumatic, normocephalic Eyes: EOMI, PERRL, nl conjunctiva, nl lids, nl sclera ENMT: nl external ears & nose, nl lips & teeth, nl nasal mucosa & septum Neck: non-tender, supple Respiratory: clear to auscultation, normal air movement Cardiovascular: nl pulses, regular rate and rhythm Gastrointestinal: nl liver, spleen, non-tender, soft Musculoskeletal: nl extremities to inspection, nl gait and stance Extremities: normal pulses 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: 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8 Monocytes % 9.0 Eosinophils % 6.3 Basophils % 0.6 Nucleated Red Blood Cells % 0.0 Neutrophils # (Manual) 4 Lymphocytes # 1.6 Monocytes # 0.6 Eosinophils # 0.4 Basophils # 0.0 Nucleated Red Blood Cells # 0.0 Test 03/02/17 11:40 03/02/17 17:31 03/02/17 20:50 Urine Color KAYLAN Urine Clarity TURBID A Urine pH 5.0 Urine Specific [place] 1.018 Urine Ketones NEGATIVE Urine Nitrite NEGATIVE Urine Bilirubin NEGATIVE Urine Urobilinogen NEGATIVE Urine Leukocyte Esterase 3+ H Urine Microscopic RBC > 182 H Urine Microscopic WBC > 182 H Urine Squamous Epithelial Cells MODERATE Urine Bacteria FEW A Urine Hemoglobin 3+ H Urine Glucose 1+ H Urine Total Protein 3+ H Bedside Glucose 214 199 Medications Medications Current Medications Acetaminophen (Tylenol Tab) 500 mg Q6H PRN PO PAIN AND OR ELEVATED TEMP Last administered on 02/27/17 06:13; Admin Dose 500 MG; Start 02/23/17 at 19:00 Epoetin Sean (Epogen (Esrd)) 10,000 units MoWeFr@17 SC Last administered on 18:39; Admin Dose 10,000 UNITS; Start 02/25/17 at 17:00 Furosemide (Lasix) 40 mg DAILY PO Last administered on 03/02/17 08:25; Admin Dose 40 MG; Start 02/24/17 at 09:00 Hydroxyzine HCl (Atarax) 10 mg Q6H PRN PO ITCHING; Start 02/23/17 at 19:00 Lactulose (Enulose) 30 gm HS PO ; Start 02/23/17 at 21:00; Status Future Hold Lactulose (Enulose) 20 gm Q6 PRN PO CONSTIPATION; Start 02/23/17 at 19:00 Megestrol Acetate (Megace Susp) 400 mg BID PO Last administered on 03/01/17 09 :15; Admin Dose 400 MG; Start 02/23/17 at 21:00 Multivitamins Therapeutic (Theragran) 1 tab DAILY PO Last administered on 08:26; Admin Dose 1 TAB; Start 02/24/17 at 09:00 Nifedipine (Procardia Xl) 30 mg DAILY PO Last administered on 03/02/17 08:25; Admin Dose 30 MG; Start 02/24/17 at 09:00 Nitroglycerin (Nitroglycerin (Sl Tab) 0.4 Mg) 1 tab Q5M PRN SL ANGINA; Start at 19:00 Ondansetron HCl (Zofran Inj) 4 mg Q4H PRN IV NAUSEA AND/OR VOMITING; Start at 19:00 Promethazine HCl/ Dextromethorphan (Phenergan-Dm) 10 ml TID PRN PO COUGH; Start 02/23/17 at 19:00 Salmeterol Xinafoate/ Fluticasone (Advair 250/50 Diskus) 1 inh BID INH Last administered on 03/02/17 20:53; Admin Dose 1 INH; Start 02/23/17 at 21:00 Triamcinolone Acetonide (Kenalog 0.1% Oint) 1 applic BID TOP Last administered on 03/02/17 20:53; Admin Dose 1 APPLIC; Start 02/23/17 at 21:00 Diagnostic Test (Pha) (Accu-Chek) 1 ea 02 XX Last administered on 03/02/17 02: 56; Admin Dose 1 EA; Start 02/24/17 at 02:00 Escitalopram Oxalate (Lexapro) 10 mg QHS PO Last administered on 03/02/17 20: 52; Admin Dose 10 MG; Start 02/24/17 at 21:00 Ciprofloxacin (Cipro) 500 mg DAILY@06 PO Last administered on 03/02/17 06:10; Admin Dose 500 MG; Start 02/25/17 at 09:00 Pantoprazole (Protonix Tab) 40 mg BID@06,18 PO Last administered on 03/02/17 17:32; Admin Dose 40 MG; Start 02/26/17 at 18:00 Insulin Glargine (Lantus) 30 unit QHS SC Last administered on 03/02/17 21:07; Admin Dose 30 UNIT; Start 02/28/17 at 21:00 Miscellaneous Information 1 ea NOTE XX ; Start 03/02/17 at 15:00 Glucose (Glutose) 15 gm Q15M PRN PO DECREASED GLUCOSE; Start 8/21/17 at 15:00 Glucose (Glutose) 22.5 gm Q15M PRN PO DECREASED GLUCOSE; Start 03/02/17 at 15: 00 Dextrose (D50w Syringe) 25 ml Q15M PRN IV DECREASED GLUCOSE; Start 03/02/17 at 15:00 Dextrose (D50w Syringe) 50 ml Q15M PRN IV DECREASED GLUCOSE; Start 03/02/17 at 15:00 Glucagon (Glucagen) 1 mg Q15M PRN IM DECREASED GLUCOSE; Start 03/02/17 at 15:00 Glucose (Glutose) 15 gm Q15M PRN BUCCAL DECREASED GLUCOSE; Start 03/02/17 at 15 :00 STUART STANLEY MD Mar 02, 2017 21:43
[2017-03-02 23:40] LABS: PLATELET ANTIBODY - IGA POSITIVE (NEGATIVE); PLATELET ANTIBODY - IGG NEGATIVE (NEGATIVE); PLATELET ANTIBODY - IGM POSITIVE (NEGATIVE)
[2017-03-03] VITALS (22 sets, daily range): BP systolic 106–148; BP diastolic 52–77; PULSE 82–96; RESP 16–18
[2017-03-03] MEDS: ACCU-CHEK XX SCH (02:16)
[2017-03-03] MEDS: CIPROFLOXACIN 500 MG TAB PO SCH (05:31)
[2017-03-03] MEDS: PANTOPRAZOLE (EC) 40 MG TAB PO SCH ×2 (05:31→17:37)
[2017-03-03 06:23] LABS: BASOPHILS % 0.5 % (0.0-2.0); EOSINOPHILS # 0.4 10^3/ul (0.0-0.5); EOSINOPHILS % 6.2 % (0.0-7.0); HEMATOCRIT 23.4 % (42.0-52.0); HEMOGLOBIN 7.9 g/dl (14.0-18.0); LYMPHOCYTES # 1.5 10^3/ul (0.8-2.9); LYMPHOCYTES % 25.4 % (15.0-51.0); MEAN CORPUSCULAR HEMOGLOBIN 27.7 pg (29.0-33.0); MEAN CORPUSCULAR HGB CONC 33.8 g/dl (32.0-37.0); MEAN CORPUSCULAR VOLUME 82.1 fl (82.0-101.0); MEAN PLATELET VOLUME 10.9 fl (7.4-10.4); MONOCYTE # 0.6 10^3/ul (0.3-0.9); MONOCYTES % 9.2 % (0.0-11.0); NEUTROPHILS % 57.7 % (39.0-77.0); PLATELET COUNT 134 10^3/UL (140-415); RED BLOOD COUNT 2.85 10^6/ul (4.70-6.10); RED CELL DISTRIBUTION WIDTH 17.1 % (11.5-14.5)
[2017-03-03 06:59] LABS: ALBUMIN 2.7 g/dl (3.3-4.9); ALBUMIN/GLOBULIN RATIO 0.69; BILIRUBIN,INDIRECT 0.4 mg/dl (0-1.1); BILIRUBIN,TOTAL 0.4 mg/dl (0.2-1.3); CALCIUM 8.6 mg/dl (8.4-10.2); CREATININE 9.58 mg/dl (0.61-1.24); POTASSIUM 4.1 mmol/L (3.5-5.1); TOTAL PROTEIN 6.6 g/dl (6.1-8.1)
--- NOTE | 2017-03-03 07:51 | CONS ---
Date/Time of Note Date/Time of Note DATE: 03/03/17 TIME: 07:48 Assessment/Plan Assessment/Plan Chief Complaint/Hosp Course 1. End-stage renal disease now requiring maintenance hemodialysis Thursday. His hemoglobin and hematocrit are drifting down but stable today. He is due for hemodialysis today which is ordered. 2. Cirrhosis of the liver, he has a history of hepatitis C which was treated. He does have cirrhosis and has had hepatic encephalopathy which is now treated. His last ammonia level was normal. He is on lactulose. 3. Fluid overloaded now much improved 4. Anemia , he had some GI bleeding which has stopped. His H&H is drifting down. 5. Diabetes mellitus 6. Morbid obesity 7. Sleep apnea 8. Urinary tract infection , treated 9. Congestive heart failure , improved 10. Thrombocytopenia, his platelet count is higher. Probably due to antibiotics that he was on. Problems: Consultation Date/Type/Reason Admit Date/Time Feb 23, 2017 at 17:22 Initial Consult Date 02/25/17 Type of Consultation: Infectious Diseases 24 HR Interval Summary Free Text/Dictation He is awake and alert this morning. He has no complaints. He was up walking twice yesterday. Constitutional: improved, no complaints Exam/Review of Systems Vital Signs Vitals Vital Signs Date Time Temp Pulse Resp B/P Pulse Ox O2 Delivery O2 Flow Rate FiO2 03/03/17 04:58 87 03/03/17 04:19 98.6 16 127/58 99 Intake and Output 03/02/17 03/02/17 03/03/17 15:00 23:00 07:00 Intake Total 200 ml 350 ml Output Total 30 ml 50 ml Balance 170 ml 300 ml Exam Constitutional: alert, frail, obese, oriented ENMT: nl external ears & nose, nl lips & teeth, nl nasal mucosa & septum Respiratory: clear to auscultation, normal air movement Cardiovascular: nl pulses, regular rate and rhythm Gastrointestinal: non-tender, soft Musculoskeletal: nl extremities to inspection Results Result Diagram: 03/03/17 0551 03/03/17 0551 Results 24 hrs Laboratory Tests Test 03/02/17 11:24 03/02/17 11:40 03/02/17 17:31 03/02/17 20:50 Bedside Glucose 195 214 199 Urine Color KAYLAN Urine Clarity TURBID A Urine pH 5.0 Urine Specific [place] 1.018 Urine Ketones NEGATIVE Urine Nitrite NEGATIVE Urine Bilirubin NEGATIVE Urine Urobilinogen NEGATIVE Urine Leukocyte Esterase 3+ H Urine Microscopic RBC > 182 H Urine Microscopic WBC > 182 H Urine Squamous Epithelial Cells MODERATE Urine Bacteria FEW A Urine Hemoglobin 3+ H Urine Glucose 1+ H Urine Total Protein 3+ H Test 03/03/17 02:09 03/03/17 05:51 03/03/17 07:27 Bedside Glucose 165 144 White Blood Count 6.0 Red Blood Count 2.85 L Hemoglobin 7.9 L Hematocrit 23.4 L Mean Corpuscular Volume 82.1 Mean Corpuscular Hemoglobin 27.7 L Mean Corpuscular Hemoglobin Concent 33.8 Red Cell Distribution Width 17.1 H Platelet Count 134 L Mean Platelet Volume 10.9 H Neutrophils % 57.7 Lymphocytes % 25.4 Monocytes % 9.2 Eosinophils % 6.2 Basophils % 0.5 Nucleated Red Blood Cells % 0.0 Neutrophils # (Manual) 3 Lymphocytes # 1.5 Monocytes # 0.6 Eosinophils # 0.4 Basophils # 0.0 Nucleated Red Blood Cells # 0.0 Sodium Level 130 L Potassium Level 4.1 Chloride Level 92 L Carbon Dioxide Level 23 Anion Gap 19 H Blood Urea Nitrogen 60 H Creatinine 9.58 H Glucose Level 127 Calcium Level 8.6 Total Bilirubin 0.4 Direct Bilirubin 0.00 Indirect Bilirubin 0.4 Aspartate Amino Transf (AST/SGOT) 43 Alanine Aminotransferase (ALT/SGPT) 38 Alkaline Phosphatase 87 Total Protein 6.6 Albumin 2.7 L Globulin 3.90 H Albumin/Globulin Ratio 0.69 Medications Medications Current Medications Acetaminophen (Tylenol Tab) 500 mg Q6H PRN PO PAIN AND OR ELEVATED TEMP Last administered on 02/27/17 06:13; Admin Dose 500 MG; Start 02/23/17 at 19:00 Epoetin Sean (Epogen (Esrd)) 10,000 units MoWeFr@17 SC Last administered on 18:39; Admin Dose 10,000 UNITS; Start 02/25/17 at 17:00 Furosemide (Lasix) 40 mg DAILY PO Last administered on 03/02/17 08:25; Admin Dose 40 MG; Start 02/24/17 at 09:00 Hydroxyzine HCl (Atarax) 10 mg Q6H PRN PO ITCHING; Start 02/23/17 at 19:00 Lactulose (Enulose) 30 gm HS PO ; Start 02/23/17 at 21:00; Status Future Hold Lactulose (Enulose) 20 gm Q6 PRN PO CONSTIPATION; Start 02/23/17 at 19:00 Megestrol Acetate (Megace Susp) 400 mg BID PO Last administered on 03/01/17 09 :15; Admin Dose 400 MG; Start 02/23/17 at 21:00 Multivitamins Therapeutic (Theragran) 1 tab DAILY PO Last administered on 08:26; Admin Dose 1 TAB; Start 02/24/17 at 09:00 Nifedipine (Procardia Xl) 30 mg DAILY PO Last administered on 03/02/17 08:25; Admin Dose 30 MG; Start 02/24/17 at 09:00 Nitroglycerin (Nitroglycerin (Sl Tab) 0.4 Mg) 1 tab Q5M PRN SL ANGINA; Start at 19:00 Ondansetron HCl (Zofran Inj) 4 mg Q4H PRN IV NAUSEA AND/OR VOMITING; Start at 19:00 Promethazine HCl/ Dextromethorphan (Phenergan-Dm) 10 ml TID PRN PO COUGH; Start 02/23/17 at 19:00 Salmeterol Xinafoate/ Fluticasone (Advair 250/50 Diskus) 1 inh BID INH Last administered on 03/02/17 20:53; Admin Dose 1 INH; Start 02/23/17 at 21:00 Triamcinolone Acetonide (Kenalog 0.1% Oint) 1 applic BID TOP Last administered on 03/02/17 20:53; Admin Dose 1 APPLIC; Start 02/23/17 at 21:00 Diagnostic Test (Pha) (Accu-Chek) 1 ea 02 XX Last administered on 03/03/17 02: 16; Admin Dose 1 EA; Start 02/24/17 at 02:00 Escitalopram Oxalate (Lexapro) 10 mg QHS PO Last administered on 03/02/17 20: 52; Admin Dose 10 MG; Start 02/24/17 at 21:00 Ciprofloxacin (Cipro) 500 mg DAILY@06 PO Last administered on 03/03/17 05:31; Admin Dose 500 MG; Start 02/25/17 at 09:00 Pantoprazole (Protonix Tab) 40 mg BID@06,18 PO Last administered on 03/03/17 05:31; Admin Dose 40 MG; Start 02/26/17 at 18:00 Insulin Glargine (Lantus) 30 unit QHS SC Last administered on 03/02/17 21:07; Admin Dose 30 UNIT; Start 02/28/17 at 21:00 Miscellaneous Information 1 ea NOTE XX ; Start 03/02/17 at 15:00 Glucose (Glutose) 15 gm Q15M PRN PO DECREASED GLUCOSE; Start 03/02/17 at 15:00 Glucose (Glutose) 22.5 gm Q15M PRN PO DECREASED GLUCOSE; Start 03/02/17 at 15: 00 Dextrose (D50w Syringe) 25 ml Q15M PRN IV DECREASED GLUCOSE; Start 03/02/17 at 15:00 Dextrose (D50w Syringe) 50 ml Q15M PRN IV DECREASED GLUCOSE; Start 03/02/17 at 15:00 Glucagon (Glucagen) 1 mg Q15M PRN IM DECREASED GLUCOSE; Start 03/02/17 at 15:00 Glucose (Glutose) 15 gm Q15M PRN BUCCAL DECREASED GLUCOSE; Start 03/02/17 at 15 :00 ANA MELENDEZ MD Mar 03, 2017 07:50
[2017-03-03] MEDS: SALMETEROL/FLUTICASONE 250/50 INHA INH SCH ×2 (08:10→20:43)
[2017-03-03] MEDS: NIFEdipine (XL) 30 MG TAB PO SCH (08:12)
[2017-03-03] MEDS: TRIAMCINOLONE ACET 0.1% 15 GM OINT TOP SCH ×2 (08:33→20:43)
[2017-03-03] MEDS: INSULIN ASPART [NOVOLOG] 3 ML PEN SC SCH ×4 (08:33→20:51)
[2017-03-03] MEDS: ALBUTEROL/IPRATROPIUM (NEB) 3 ML AMP HHN SCH ×4 (08:35→20:09)
[2017-03-03] MEDS: MEGESTROL (40 MG/ML) 10ML CUP PO SCH ×2 (08:36→20:43)
[2017-03-03] MEDS: MULTIVITAMINS THERAPEUTIC TAB PO SCH (13:38)
[2017-03-03] MEDS: FUROSEMIDE 40 MG TAB PO SCH (13:39)
--- NOTE | 2017-03-03 17:24 | PN ---
DATE: 03/03/2017 SUBJECTIVE: The patient is awake, still complains of dizziness with ambulation. Denies any chest pain, is due for hemodialysis. PHYSICAL EXAM: GENERAL: He is awake and alert. VITAL SIGNS: Temperature 98.4, blood pressure 106/56, and O2 sat 98 percent room air. CHEST: Clinically clear. HEART: S1, S2. No rubs or gallops. ABDOMEN: Soft, nontender. No hepatosplenomegaly. EXTREMITIES: No edema. Taylor's sign is negative. LABORATORY: WBC count 6.0, hematocrit 28.4, and platelet count 134. Sodium 130, potassium 4.1, BUN 60, creatinine 9.58, glucose 144 and 164, and albumin 2.7. IMPRESSION: 1. Severe anemia with thrombocytopenia. Thrombocytopenia likely related to linezolid, platelets recovering. 2. Gastrointestinal (GI) bleed with melena, likely upper gastrointestinal (GI) bleed for endoscopy tomorrow per Dr. Arteaga. 3. Cirrhosis with portal hypertension. 4. Hepatic encephalopathy, resolved. 5. Status post congestive heart failure (CHF), resolved. 6. Obstructive sleep apnea. 7. Underlying major depression, improved with Lexapro. PLAN: 1. Continue PT. 2. Increase p.o. intake. 3. Recheck CBC in a.m. and re-evaluate after endoscopy. Dictated By: Ivan Brice MD /[email or web address] /Document#: [id number]
[2017-03-03] MEDS: ESCITALOPRAM 10 MG TAB PO SCH (20:43)
[2017-03-03] MEDS: INSULIN GLARGINE [LANtus] 3 ML PEN SC SCH (20:50)
--- NOTE | 2017-03-03 21:11 | CONS ---
Date/Time of Note Date/Time of Note DATE: 03/03/17 TIME: 21:10 Assessment/Plan Assessment/Plan Additional Assessment/Plan Assessment/Plan Additional Assessment/Plan Additional Assessment/Plan 1. Melena, bleeding seems to have stopped hematocrit is stable, 2. Cirrhosis of liver 3. Diabetes mellitus 4. End-stage kidney disease on dialysis 5. Thrombocytopenia, platelet count is now 62,000 Plan Continue PPI Monitor H&H EGD on Thursday,g.i.lab couldn't accommodate tomorrow Consultation Date/Type/Reason Admit Date/Time Feb 23, 2017 at 17:22 Initial Consult Date 02/25/17 Type of Consultation: Infectious Diseases 24 HR Interval Summary Free Text/Dictation stool streets and buildings decorator in color Exam/Review of Systems Vital Signs Vitals Vital Signs Date Time Temp Pulse Resp B/P Pulse Ox O2 Delivery O2 Flow Rate FiO2 03/03/17 20:18 98.9 90 16 141/63 97 Intake and Output 03/02/17 03/02/17 03/03/17 15:00 23:00 07:00 Intake Total 200 ml 350 ml Output Total 30 ml 50 ml Balance 170 ml 300 ml Exam Constitutional: alert, oriented, well developed Psych: nl mood/affect, no complaints Head: atraumatic, normocephalic Eyes: EOMI, PERRL, nl conjunctiva, nl lids, nl sclera ENMT: nl external ears & nose, nl lips & teeth, nl nasal mucosa & septum Neck: non-tender, supple Respiratory: clear to auscultation, normal air movement Cardiovascular: nl pulses, regular rate and rhythm Gastrointestinal: nl liver, spleen, non-tender, soft Musculoskeletal: nl extremities to inspection, nl gait and stance Extremities: normal pulses 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: 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 DOLLY OPERATOR II-XII intact, nl mental status, nl speech, nl strength Skin: nl turgor, No rash or lesions Lymph: nl lymph nodes Results Result Diagram: 03/03/17 0551 03/03/17 0551 Results 24 hrs Laboratory Tests Test 03/03/17 02:09 03/03/17 05:51 03/03/17 07:27 03/03/17 11:36 Bedside Glucose 165 144 164 White Blood Count 6.0 Red Blood Count 2.85 L Hemoglobin 7.9 L Hematocrit 23.4 L Mean Corpuscular Volume 82.1 Mean Corpuscular Hemoglobin 27.7 L Mean Corpuscular Hemoglobin Concent 33.8 Red Cell Distribution Width 17.1 H Platelet Count 134 L Mean Platelet Volume 10.9 H Neutrophils % 57.7 Lymphocytes % 25.4 Monocytes % 9.2 Eosinophils % 6.2 Basophils % 0.5 Nucleated Red Blood Cells % 0.0 Neutrophils # (Manual) 3 Lymphocytes # 1.5 Monocytes # 0.6 Eosinophils # 0.4 Basophils # 0.0 Nucleated Red Blood Cells # 0.0 Sodium Level 130 L Potassium Level 4.1 Chloride Level 92 L Carbon Dioxide Level 23 Anion Gap 19 H Blood Urea Nitrogen 60 H Creatinine 9.58 H Glucose Level 127 Calcium Level 8.6 Total Bilirubin 0.4 Direct Bilirubin 0.00 Indirect Bilirubin 0.4 Aspartate Amino Transf (AST/SGOT) 43 Alanine Aminotransferase (ALT/SGPT) 38 Alkaline Phosphatase 87 Total Protein 6.6 Albumin 2.7 L Globulin 3.90 H Albumin/Globulin Ratio 0.69 Test 03/03/17 11:52 03/03/17 13:44 03/03/17 17:36 03/03/17 20:41 Lab Scanned Report REFERENCE LAB Bedside Glucose 237 H 215 191 Medications Medications Current Medications Acetaminophen (Tylenol Tab) 500 mg Q6H PRN PO PAIN AND OR ELEVATED TEMP Last administered on 02/27/17 06:13; Admin Dose 500 MG; Start 02/23/17 at 19:00 Epoetin Sean (Epogen (Esrd)) 10,000 units MoWeFr@17 SC Last administered on 18:39; Admin Dose 10,000 UNITS; Start 02/25/17 at 17:00 Furosemide (Lasix) 40 mg DAILY PO Last administered on 03/03/17 13:39; Admin Dose 40 MG; Start 02/24/17 at 09:00 Hydroxyzine HCl (Atarax) 10 mg Q6H PRN PO ITCHING; Start 02/23/17 at 19:00 Lactulose (Enulose) 30 gm HS PO ; Start 02/23/17 at 21:00; Status Future Hold Lactulose (Enulose) 20 gm Q6 PRN PO CONSTIPATION; Start 02/23/17 at 19:00 Megestrol Acetate (Megace Susp) 400 mg BID PO Last administered on 03/01/17 09 :15; Admin Dose 400 MG; Start 02/23/17 at 21:00 Multivitamins Therapeutic (Theragran) 1 tab DAILY PO Last administered on 13:38; Admin Dose 1 TAB; Start 02/24/17 at 09:00 Nifedipine (Procardia Xl) 30 mg DAILY PO Last administered on 03/03/17 08:12; Admin Dose 30 MG; Start 02/24/17 at 09:00 Nitroglycerin (Nitroglycerin (Sl Tab) 0.4 Mg) 1 tab Q5M PRN SL ANGINA; Start at 19:00 Ondansetron HCl (Zofran Inj) 4 mg Q4H PRN IV NAUSEA AND/OR VOMITING; Start at 19:00 Promethazine HCl/ Dextromethorphan (Phenergan-Dm) 10 ml TID PRN PO COUGH; Start 02/23/17 at 19:00 Salmeterol Xinafoate/ Fluticasone (Advair 250/50 Diskus) 1 inh BID INH Last administered on 03/03/17 20:43; Admin Dose 1 INH; Start 02/23/17 at 21:00 Triamcinolone Acetonide (Kenalog 0.1% Oint) 1 applic BID TOP Last administered on 03/03/17 20:43; Admin Dose 1 APPLIC; Start 02/23/17 at 21:00 Diagnostic Test (Pha) (Accu-Chek) 1 ea 02 XX Last administered on 03/03/17 02: 16; Admin Dose 1 EA; Start 02/24/17 at 02:00 Escitalopram Oxalate (Lexapro) 10 mg QHS PO Last administered on 03/03/17 20: 43; Admin Dose 10 MG; Start 02/24/17 at 21:00 Ciprofloxacin (Cipro) 500 mg DAILY@06 PO Last administered on 03/03/17 05:31; Admin Dose 500 MG; Start 02/25/17 at 09:00 Pantoprazole (Protonix Tab) 40 mg BID@06,18 PO Last administered on 03/03/17 17:37; Admin Dose 40 MG; Start 02/26/17 at 18:00 Insulin Glargine (Lantus) 30 unit QHS SC Last administered on 03/03/17 20:50; Admin Dose 30 UNIT; Start 02/28/17 at 21:00 Miscellaneous Information 1 ea NOTE XX ; Start 03/02/17 at 15:00 Glucose (Glutose) 15 gm Q15M PRN PO DECREASED GLUCOSE; Start 03/02/17 at 15:00 Glucose (Glutose) 22.5 gm Q15M PRN PO DECREASED GLUCOSE; Start 03/02/17 at 15: 00 Dextrose (D50w Syringe) 25 ml Q15M PRN IV DECREASED GLUCOSE; Start 03/02/17 at 15:00 Dextrose (D50w Syringe) 50 ml Q15M PRN IV DECREASED GLUCOSE; Start 03/02/17 at 15:00 Glucagon (Glucagen) 1 mg Q15M PRN IM DECREASED GLUCOSE; Start 03/02/17 at 15:00 Glucose (Glutose) 15 gm Q15M PRN BUCCAL DECREASED GLUCOSE; Start 03/02/17 at 15 :00 STUART STANLEY MD Mar 03, 2017 21:11
--- NOTE | 2017-03-03 23:22 | PN ---
DATE: 03/03/2017 Hematology Progress note SUBJECTIVE: Patient is doing well. No complaints of abdominal pain. He has not noted any melena or hematochezia. PHYSICAL EXAMINATION: GENERAL: Patient is a well-developed, well-nourished, but obese male who is in no acute distress. VITAL SIGNS: Temperature 98.9, pulse 90 per minute, respirations 16, blood pressure 141/63, and pulse oximetry is 97 percent on room air. SKIN: No ecchymosis. No petechiae or rashes. HEENT: Normocephalic no evidence of trauma. Pupils equal, round, react to light and accommodation. There is no scleral icterus. Oral mucosa is moist without lesions. Tongue is well papillated. No gingival hyperplasia. NECK: Neck is supple. No jugular distention, or thyroid enlargement. CHEST: Clear to auscultation and percussion. No rhonchi, wheezes, rales, or rubs. There is a tunneled dialysis catheter in the right anterior chest in the subclavian area. No evidence of infection. HEART: Heart regular sinus rhythm. No S3, S4. There is a grade 3/6 systolic murmur heard along the left sternal border which radiates to the left axilla, does not radiate to the neck. NODES: No palpable lymphadenopathy in the lymph node bearing area. ABDOMEN: Obese. No masses or ascites. EXTREMITIES: No clubbing, edema, or cyanosis. There is an AV fistula in the medial aspect of the right humeral area. LABORATORY: White count is 6,000, hemoglobin 7.9, hematocrit 23.4, and platelet count 134,000. Sodium 130, potassium 4.1, creatinine 9.58, BUN 60, total bilirubin 0.4, indirect 0.4. The platelet antibody panel does demonstrate the patient does have IgA and IgM platelet antibodies present. The IgG platelet antibodies are negative. ASSESSMENT AND PLAN: 1. Post hepatic cirrhosis with portal hypertension. 2. Thrombocytopenia resolved. 3. End-stage renal disease, on hemodialysis. 4. Diabetes mellitus. 5. Probable GI bleeding controlled. As noted, the patient's platelet count has now risen to 134,000. The etiology of the patient's thrombocytopenia apparently is multifactorial. Initially thos seemed to be drug induced due to Zyvox. Also there is some degree of splenic sequestration of the patient's of the patient's portal hypertension. Lastly, the patient has now been demonstrated to have platelet antibodies. Given the patient's present platelet count of 134,000 I do not feel there was any intervention required. Dictated By: Jh Fox MD /[email or web address]/juan /Document#: [id number]
[2017-03-04] VITALS (15 sets, daily range): BP systolic 136–186; BP diastolic 60–81; PULSE 77–85; RESP 16–87
[2017-03-04] MEDS: ACCU-CHEK XX SCH (01:54)
[2017-03-04] MEDS: CIPROFLOXACIN 500 MG TAB PO SCH (05:06)
[2017-03-04] MEDS: PANTOPRAZOLE (EC) 40 MG TAB PO SCH ×2 (05:06→18:01)
[2017-03-04 06:59] LABS: BASOPHILS % 0.4 % (0.0-2.0); EOSINOPHILS # 0.3 10^3/ul (0.0-0.5); EOSINOPHILS % 5.7 % (0.0-7.0); HEMATOCRIT 23.4 % (42.0-52.0); HEMOGLOBIN 7.4 g/dl (14.0-18.0); LYMPHOCYTES # 1.3 10^3/ul (0.8-2.9); LYMPHOCYTES % 24.3 % (15.0-51.0); MEAN CORPUSCULAR HEMOGLOBIN 26.2 pg (29.0-33.0); MEAN CORPUSCULAR HGB CONC 31.6 g/dl (32.0-37.0); MEAN PLATELET VOLUME 11.4 fl (7.4-10.4); MONOCYTE # 0.5 10^3/ul (0.3-0.9); MONOCYTES % 9.4 % (0.0-11.0); NEUTROPHILS % 59.6 % (39.0-77.0); PLATELET COUNT 138 10^3/UL (140-415); RED BLOOD COUNT 2.82 10^6/ul (4.70-6.10); RED CELL DISTRIBUTION WIDTH 18.1 % (11.5-14.5); WHITE BLOOD COUNT 5.3 10^3/ul (4.8-10.8)
[2017-03-04 07:30] LABS: ALBUMIN 2.4 g/dl (3.3-4.9); ALBUMIN/GLOBULIN RATIO 0.57; BILIRUBIN,INDIRECT 0.4 mg/dl (0-1.1); BILIRUBIN,TOTAL 0.4 mg/dl (0.2-1.3); CALCIUM 7.9 mg/dl (8.4-10.2); CREATININE 6.79 mg/dl (0.61-1.24); POTASSIUM 3.5 mmol/L (3.5-5.1); TOTAL PROTEIN 6.6 g/dl (6.1-8.1)
[2017-03-04] MEDS: INSULIN ASPART [NOVOLOG] 3 ML PEN SC SCH ×4 (07:55→21:00)
[2017-03-04] MEDS: ALBUTEROL/IPRATROPIUM (NEB) 3 ML AMP HHN SCH ×4 (08:52→20:22)
[2017-03-04] MEDS: MEGESTROL (40 MG/ML) 10ML CUP PO SCH ×2 (09:00→21:00)
[2017-03-04] MEDS: NIFEdipine (XL) 30 MG TAB PO SCH (09:00)
[2017-03-04] MEDS: MULTIVITAMINS THERAPEUTIC TAB PO SCH (09:00)
[2017-03-04] MEDS: FUROSEMIDE 40 MG TAB PO SCH (09:00)
[2017-03-04] MEDS: SALMETEROL/FLUTICASONE 250/50 INHA INH SCH ×2 (09:45→21:16)
[2017-03-04] MEDS: TRIAMCINOLONE ACET 0.1% 15 GM OINT TOP SCH ×2 (09:46→21:16)
[2017-03-04] MEDS: DEXTROSE 5% 1,000 ML IV SCH (10:00)
[2017-03-04] MEDS ORDERED: LIDOCAINE 2% (SDV) 5 ML INJ ONE (11:42)
[2017-03-04] MEDS ORDERED: PROPOFOL 40 ML ONE (11:42)
--- NOTE | 2017-03-04 12:28 | OPPN ---
Date/Time of Note Date/Time of Note DATE: 03/04/17 TIME: 12:26 Operative Report Preoperative Diagnosis GI bleeding Postoperative Diagnosis GI bleeding Operation/Procedure Performed 1. Duodenal ulcer as a cause of bleeding 2. Gastritis moderate to severe 3. Gastric varicose vein 4. No esophageal varicose vein except 1 columns of grade 1 varicose vein Provider: STUART STANLEY MD Anesthesia Type: MAC Estimated blood loss: none Transfusion Required: no Specimen: none Grafts/Implants: none Complications: no STUART STANLEY MD Mar 04, 2017 12:28
[2017-03-04] MEDS ORDERED: LABETALOL HCL 20MG INJ ONE (12:39)
[2017-03-04] MEDS ORDERED: LABETALOL HCL 20MG INJ IV ONE (13:00)
--- NOTE | 2017-03-04 13:58 | GILP ---
DATE OF PROCEDURE: 03/04/2014 PROCEDURE PERFORMED: Esophagogastroduodenoscopy with biopsy. INDICATION: The patient is a 61-year-old male with cirrhosis of liver, hep C, undergoing this procedure for GI bleeding manifested in the form of melenic stool. The risks of the procedure, related and unrelated complications, and anesthetic risks, alternatives thoroughly discussed especially in view of his multiple comorbidities, which he understood and gave informed consent. DESCRIPTION OF PROCEDURE: The patient was brought to the GI lab, sedated by the anesthesiologist. After optimal sedation, scope was positive much ease into the esophagus, which was grossly within normal limit except 1 column of varicose vein, grade 1. Stomach mucosa revealed severe gastritis, mostly in the antrum. Duodenal mucosa revealed acute duodenal ulcer. The 2nd part was within normal limits. Ampulla appeared normal. Bile flow was good and it was normal color. Biopsy taken from the stomach to rule out H pylori infection. Two sets of biopsies were obtained. On retroversion, there was a large varicose vein close to the GE junction but in the fundal area. This appeared to be like a grade 3 or 4. No evidence of recent hemorrhage or rhonda sign positive. Scope was straightened out and removed with good patient tolerance. IMPRESSION: 1. Normal esophagus. 2. Z-line at 40 cm. 3. Grade 1 varicose vein in the distal part of the esophagus. 4. Severe gastritis. 5. Acute duodenal ulcer, which is definitely the cause of the bleeding. 6. Gastric varicose vein in the fundus. PLAN: Continue PPI, maintain the platelet count above 50, INR greater than 1.5. I do not think the patient bled from gastric varicose vein. This was an incidental finding. However, if the patient bleeds from gastric varicose veins, the best option will be TIPS or glue injection. Dictated By: Ronaldo Arteaga MD /[email or web address]/rodney /Document#: [id number] CC: Ivan Brice MD;*EndCC* MTDD
--- NOTE | 2017-03-04 14:01 | CONS ---
Date/Time of Note Date/Time of Note DATE: 03/04/17 TIME: 13:56 Assessment/Plan Assessment/Plan Chief Complaint/Hosp Course 1. End-stage renal disease now requiring maintenance hemodialysis Thursday. His hemoglobin and hematocrit are drifting down but stable today. He is due for hemodialysis tomorrow which is ordered. I will order a 1 unit blood transfusion to be given with hemodialysis tomorrow . 2. Cirrhosis of the liver, he has a history of hepatitis C which was treated. He does have cirrhosis and has had hepatic encephalopathy which is now treated. His last ammonia level was normal. He is on lactulose. 3. Fluid overloaded now much improved 4. Anemia , he had some GI bleeding which has stopped. His H&H is drifting down.Will order blood transfusion for tomorrow . 5. Diabetes mellitus 6. Morbid obesity 7. Sleep apnea 8. Urinary tract infection , treated 9. Congestive heart failure , improved 10. Thrombocytopenia, his platelet count is higher. Probably due to antibiotics that he was on. Problems: Consultation Date/Type/Reason Admit Date/Time Feb 23, 2017 at 17:22 Initial Consult Date 02/25/17 Type of Consultation: renal 24 HR Interval Summary Free Text/Dictation He just returned from GI lab . He had a UGD . He is awake and alert . Constitutional: improved, no complaints Exam/Review of Systems Vital Signs Vitals Vital Signs Date Time Temp Pulse Resp B/P Pulse Ox O2 Delivery O2 Flow Rate FiO2 03/04/17 13:31 97.6 18 87 174/81 97 03/04/17 12:40 Nasal Cannula 2.0 Intake and Output 03/03/17 03/03/17 03/04/17 15:00 23:00 07:00 Intake Total 500 ml 350 ml 400 ml Output Total 2500 ml 30 ml 40 ml Balance -2000 ml 320 ml 360 ml Exam Constitutional: alert, frail, obese, oriented Respiratory: clear to auscultation, normal air movement Cardiovascular: regular rate and rhythm Gastrointestinal: non-tender, soft Musculoskeletal: nl extremities to inspection Results Result Diagram: 03/04/17 0607 03/04/17 0607 Results 24 hrs Laboratory Tests Test 03/03/17 17:36 03/03/17 20:41 03/04/17 01:08 03/04/17 06:07 Bedside Glucose 215 191 177 White Blood Count 5.3 Red Blood Count 2.82 L Hemoglobin 7.4 L Hematocrit 23.4 L Mean Corpuscular Volume 83.0 Mean Corpuscular Hemoglobin 26.2 L Mean Corpuscular Hemoglobin Concent 31.6 L Red Cell Distribution Width 18.1 H Platelet Count 138 L Mean Platelet Volume 11.4 H Neutrophils % 59.6 Lymphocytes % 24.3 Monocytes % 9.4 Eosinophils % 5.7 Basophils % 0.4 Nucleated Red Blood Cells % 0.0 Neutrophils # (Manual) 3 Lymphocytes # 1.3 Monocytes # 0.5 Eosinophils # 0.3 Basophils # 0.0 Nucleated Red Blood Cells # 0.0 Sodium Level 136 Potassium Level 3.5 Chloride Level 95 L Carbon Dioxide Level 29 Anion Gap 16 Blood Urea Nitrogen 37 #H Creatinine 6.79 #H Glucose Level 81 # Calcium Level 7.9 L Total Bilirubin 0.4 Direct Bilirubin 0.00 Indirect Bilirubin 0.4 Aspartate Amino Transf (AST/SGOT) 41 Alanine Aminotransferase (ALT/SGPT) 32 Alkaline Phosphatase 77 Total Protein 6.6 Albumin 2.4 L Globulin 4.20 H Albumin/Globulin Ratio 0.57 Test 03/04/17 08:20 03/04/17 12:42 03/04/17 13:28 Bedside Glucose 87 90 102 Medications Medications Current Medications Acetaminophen (Tylenol Tab) 500 mg Q6H PRN PO PAIN AND OR ELEVATED TEMP Last administered on 02/27/17 06:13; Admin Dose 500 MG; Start 02/23/17 at 19:00 Epoetin Sean (Epogen (Esrd)) 10,000 units MoWeFr@17 SC Last administered on 18:39; Admin Dose 10,000 UNITS; Start 02/25/17 at 17:00 Furosemide (Lasix) 40 mg DAILY PO Last administered on 03/03/17 13:39; Admin Dose 40 MG; Start 02/24/17 at 09:00 Hydroxyzine HCl (Atarax) 10 mg Q6H PRN PO ITCHING; Start 02/23/17 at 19:00 Lactulose (Enulose) 30 gm HS PO ; Start 02/23/17 at 21:00; Status Future Hold Lactulose (Enulose) 20 gm Q6 PRN PO CONSTIPATION; Start 02/23/17 at 19:00 Megestrol Acetate (Megace Susp) 400 mg BID PO Last administered on 03/01/17 09 :15; Admin Dose 400 MG; Start 02/23/17 at 21:00 Multivitamins Therapeutic (Theragran) 1 tab DAILY PO Last administered on 13:38; Admin Dose 1 TAB; Start 02/24/17 at 09:00 Nifedipine (Procardia Xl) 30 mg DAILY PO Last administered on 03/03/17 08:12; Admin Dose 30 MG; Start 02/24/17 at 09:00 Nitroglycerin (Nitroglycerin (Sl Tab) 0.4 Mg) 1 tab Q5M PRN SL ANGINA; Start at 19:00 Ondansetron HCl (Zofran Inj) 4 mg Q4H PRN IV NAUSEA AND/OR VOMITING; Start at 19:00 Promethazine HCl/ Dextromethorphan (Phenergan-Dm) 10 ml TID PRN PO COUGH; Start 02/23/17 at 19:00 Salmeterol Xinafoate/ Fluticasone (Advair 250/50 Diskus) 1 inh BID INH Last administered on 03/04/17 09:45; Admin Dose 1 INH; Start 02/23/17 at 21:00 Triamcinolone Acetonide (Kenalog 0.1% Oint) 1 applic BID TOP Last administered on 03/04/17 09:46; Admin Dose 1 APPLIC; Start 02/23/17 at 21:00 Diagnostic Test (Pha) (Accu-Chek) 1 ea 02 XX Last administered on 03/04/17 01: 54; Admin Dose 1 EA; Start 02/24/17 at 02:00 Escitalopram Oxalate (Lexapro) 10 mg QHS PO Last administered on 03/03/17 20: 43; Admin Dose 10 MG; Start 02/24/17 at 21:00 Ciprofloxacin (Cipro) 500 mg DAILY@06 PO Last administered on 03/03/17 05:31; Admin Dose 500 MG; Start 02/25/17 at 09:00 Pantoprazole (Protonix Tab) 40 mg BID@06,18 PO Last administered on 03/03/17 17:37; Admin Dose 40 MG; Start 02/26/17 at 18:00 Insulin Glargine (Lantus) 30 unit QHS SC Last administered on 03/03/17 20:50; Admin Dose 30 UNIT; Start 02/28/17 at 21:00 Miscellaneous Information 1 ea NOTE XX ; Start 03/02/17 at 15:00 Glucose (Glutose) 15 gm Q15M PRN PO DECREASED GLUCOSE; Start 03/02/17 at 15:00 Glucose (Glutose) 22.5 gm Q15M PRN PO DECREASED GLUCOSE; Start 03/02/17 at 15: 00 Dextrose (D50w Syringe) 25 ml Q15M PRN IV DECREASED GLUCOSE; Start 03/02/17 at 15:00 Dextrose (D50w Syringe) 50 ml Q15M PRN IV DECREASED GLUCOSE; Start 03/02/17 at 15:00 Glucagon (Glucagen) 1 mg Q15M PRN IM DECREASED GLUCOSE; Start 03/02/17 at 15:00 Glucose 15 gm 15 gm Q15M PRN BUCCAL DECREASED GLUCOSE; Start 03/02/17 at 15:00 Dextrose (D5W) 1,000 ml @ 50 mls/hr Q20H IV Last administered on 03/04/17 10: 00; Admin Dose 50 MLS/HR; Start 03/04/17 at 10:00 ANA MELENDEZ MD Mar 04, 2017 14:01
--- NOTE | 2017-03-04 15:50 | PN ---
DATE: 03/04/2017 SUBJECTIVE: Patient is status post upper endoscopy. Findings noted, including of duodenal ulcer being the cause of bleeding. Dr. Arteaga's recommendations noted and appreciated. OBJECTIVE DATA: GENERAL: Patient is awake, alert. VITAL SIGNS: Temperature 97.6, blood pressure 174/81, respiratory 20 per minute. CHEST: Clinically clear. HEART: S1, S2. No definite gallops. ABDOMEN: Obese, nontender. EXTREMITIES: No edema. LABORATORY: WBC count 5.3, hematocrit 22.4. Platelet count is 138,000. Sodium 136, potassium 3.5, BUN 37, creatinine 6.79. Glucose 87, 90 and 1O2 today. IMPRESSION: 1. Status post upper gastrointestinal bleed secondary to duodenal ulcer. 2. Cirrhosis with portal hypertension, status post hepatic encephalopathy. 3. Prior history of hepatitis C, resolved. 4. Status post congestive heart failure. 5. Obstructive sleep apnea. 6. Underlying major depression, improving with Lexapro. 7. Thrombocytopenia, improved, likely secondary to , which has been discontinued. PLAN: Will discuss with Dr. Castro. Consider RBC transfusion, increase activity and follow CBC and renal function. Dictated By: Ivan Brice MD /[email or web address] /Document#: [id number]
[2017-03-04] MEDS: EPOETIN 10000 UNITS/1 ML INJ (ESRD) SC SCH (17:00)
[2017-03-04] MEDS: ESCITALOPRAM 10 MG TAB PO SCH (21:14)
[2017-03-04] MEDS: INSULIN GLARGINE [LANtus] 3 ML PEN SC SCH (21:20)
[2017-03-05] VITALS (20 sets, daily range): BP systolic 129–187; BP diastolic 58–86; PULSE 78–92; RESP 19–20
[2017-03-05] MEDS: ACCU-CHEK XX SCH (02:29)
[2017-03-05] MEDS: CIPROFLOXACIN 500 MG TAB PO SCH (06:00)
[2017-03-05] MEDS: DEXTROSE 5% 1,000 ML IV SCH (06:00)
[2017-03-05] MEDS: PANTOPRAZOLE (EC) 40 MG TAB PO SCH ×2 (06:00→17:57)
[2017-03-05 07:32] LABS: BASOPHILS % 0.4 % (0.0-2.0); EOSINOPHILS # 0.4 10^3/ul (0.0-0.5); EOSINOPHILS % 7.3 % (0.0-7.0); HEMATOCRIT 22.8 % (42.0-52.0); HEMOGLOBIN 7.4 g/dl (14.0-18.0); LYMPHOCYTES # 1.3 10^3/ul (0.8-2.9); LYMPHOCYTES % 26.6 % (15.0-51.0); MEAN CORPUSCULAR HEMOGLOBIN 26.8 pg (29.0-33.0); MEAN CORPUSCULAR HGB CONC 32.5 g/dl (32.0-37.0); MEAN CORPUSCULAR VOLUME 82.6 fl (82.0-101.0); MONOCYTE # 0.6 10^3/ul (0.3-0.9); MONOCYTES % 11.2 % (0.0-11.0); NEUTROPHILS % 54.3 % (39.0-77.0); PLATELET COUNT 138 10^3/UL (140-415); RED BLOOD COUNT 2.76 10^6/ul (4.70-6.10); RED CELL DISTRIBUTION WIDTH 18.3 % (11.5-14.5); WHITE BLOOD COUNT 4.9 10^3/ul (4.8-10.8)
[2017-03-05 07:54] LABS: CALCIUM 7.6 mg/dl (8.4-10.2); CREATININE 7.53 mg/dl (0.61-1.24); POTASSIUM 3.5 mmol/L (3.5-5.1)
[2017-03-05] MEDS: INSULIN ASPART [NOVOLOG] 3 ML PEN SC SCH ×4 (07:55→21:00)
--- NOTE | 2017-03-05 08:50 | CONS ---
Date/Time of Note Date/Time of Note DATE: 03/05/17 TIME: 08:47 Assessment/Plan Assessment/Plan Chief Complaint/Hosp Course 1. End-stage renal disease now requiring maintenance hemodialysis Thursday. His hemoglobin and hematocrit are drifting down but stable today. He is due for hemodialysis today , which is ordered. 1 unit blood transfusion to be given with hemodialysis today. 2. Cirrhosis of the liver, he has a history of hepatitis C which was treated. He does have cirrhosis and has had hepatic encephalopathy which is now treated. His last ammonia level was normal. He is on lactulose. 3. Fluid overloaded now much improved 4. Anemia , he had some GI bleeding which has stopped. His H&H is drifting down.Will order blood transfusion for tomorrow . 5. Diabetes mellitus 6. Morbid obesity 7. Sleep apnea 8. Urinary tract infection , treated 9. Congestive heart failure , improved 10. Thrombocytopenia, his platelet count is higher. Probably due to antibiotics that he was on. Problems: Consultation Date/Type/Reason Admit Date/Time Feb 23, 2017 at 17:22 Initial Consult Date 02/25/17 Type of Consultation: renal 24 HR Interval Summary Free Text/Dictation He is awake and alert today . He has no new complaints . He is about to start hemodialysis treatment now . Constitutional: improved, no complaints Exam/Review of Systems Vital Signs Vitals Vital Signs Date Time Temp Pulse Resp B/P Pulse Ox O2 Delivery O2 Flow Rate FiO2 03/05/17 06:58 98.8 81 19 149/65 98 03/04/17 12:40 Nasal Cannula 2.0 Intake and Output 03/04/17 03/04/17 03/05/17 15:00 23:00 07:00 Intake Total 200 ml 250 ml Output Total 80 ml 60 ml Balance 120 ml 190 ml Exam Constitutional: alert, frail, obese, oriented Respiratory: clear to auscultation, normal air movement Cardiovascular: regular rate and rhythm Gastrointestinal: non-tender, soft Musculoskeletal: nl extremities to inspection Results Result Diagram: 03/05/17 0609 03/05/17 0609 Results 24 hrs Laboratory Tests Test 03/04/17 12:42 03/04/17 13:28 03/04/17 17:56 03/04/17 21:13 Bedside Glucose 90 102 159 178 Test 03/05/17 02:23 03/05/17 06:09 Bedside Glucose 162 White Blood Count 4.9 Red Blood Count 2.76 L Hemoglobin 7.4 L Hematocrit 22.8 L Mean Corpuscular Volume 82.6 Mean Corpuscular Hemoglobin 26.8 L Mean Corpuscular Hemoglobin Concent 32.5 Red Cell Distribution Width 18.3 H Platelet Count 138 L Mean Platelet Volume 11.0 H Neutrophils % 54.3 Lymphocytes % 26.6 Monocytes % 11.2 H Eosinophils % 7.3 H Basophils % 0.4 Nucleated Red Blood Cells % 0.0 Neutrophils # (Manual) 3 Lymphocytes # 1.3 Monocytes # 0.6 Eosinophils # 0.4 Basophils # 0.0 Nucleated Red Blood Cells # 0.0 Sodium Level 131 L Potassium Level 3.5 Chloride Level 97 Carbon Dioxide Level 25 Anion Gap 13 Blood Urea Nitrogen 43 H Creatinine 7.53 H Glucose Level 95 Calcium Level 7.6 L Medications Medications Current Medications Acetaminophen (Tylenol Tab) 500 mg Q6H PRN PO PAIN AND OR ELEVATED TEMP Last administered on 02/27/17 06:13; Admin Dose 500 MG; Start 02/23/17 at 19:00 Epoetin Esan (Epogen (Esrd)) 10,000 units MoWeFr@17 SC Last administered on 18:39; Admin Dose 10,000 UNITS; Start 02/25/17 at 17:00 Furosemide (Lasix) 40 mg DAILY PO Last administered on 03/03/17 13:39; Admin Dose 40 MG; Start 02/24/17 at 09:00 Hydroxyzine HCl (Atarax) 10 mg Q6H PRN PO ITCHING; Start 02/23/17 at 19:00 Lactulose (Enulose) 30 gm HS PO ; Start 02/23/17 at 21:00; Status Future Hold Lactulose (Enulose) 20 gm Q6 PRN PO CONSTIPATION; Start 02/23/17 at 19:00 Megestrol Acetate (Megace Susp) 400 mg BID PO Last administered on 03/01/17 09 :15; Admin Dose 400 MG; Start 02/23/17 at 21:00 Multivitamins Therapeutic (Theragran) 1 tab DAILY PO Last administered on 13:38; Admin Dose 1 TAB; Start 02/24/17 at 09:00 Nifedipine (Procardia Xl) 30 mg DAILY PO Last administered on 03/03/17 08:12; Admin Dose 30 MG; Start 02/24/17 at 09:00 Nitroglycerin (Nitroglycerin (Sl Tab) 0.4 Mg) 1 tab Q5M PRN SL ANGINA; Start at 19:00 Ondansetron HCl (Zofran Inj) 4 mg Q4H PRN IV NAUSEA AND/OR VOMITING; Start at 19:00 Promethazine HCl/ Dextromethorphan (Phenergan-Dm) 10 ml TID PRN PO COUGH; Start 02/23/17 at 19:00 Salmeterol Xinafoate/ Fluticasone (Advair 250/50 Diskus) 1 inh BID INH Last administered on 03/04/17 21:16; Admin Dose 1 INH; Start 02/23/17 at 21:00 Triamcinolone Acetonide (Kenalog 0.1% Oint) 1 applic BID TOP Last administered on 03/04/17 21:16; Admin Dose 1 APPLIC; Start 02/23/17 at 21:00 Diagnostic Test (Pha) (Accu-Chek) 1 ea 02 XX Last administered on 03/05/17 02: 29; Admin Dose 1 EA; Start 02/24/17 at 02:00 Escitalopram Oxalate (Lexapro) 10 mg QHS PO Last administered on 03/04/17 21: 14; Admin Dose 10 MG; Start 02/24/17 at 21:00 Ciprofloxacin (Cipro) 500 mg DAILY@06 PO Last administered on 03/05/17 06:00; Admin Dose 500 MG; Start 02/25/17 at 09:00 Pantoprazole (Protonix Tab) 40 mg BID@06,18 PO Last administered on 03/05/17 06:00; Admin Dose 40 MG; Start 02/26/17 at 18:00 Insulin Glargine (Lantus) 30 unit QHS SC Last administered on 03/04/17 21:20; Admin Dose 30 UNIT; Start 02/28/17 at 21:00 Miscellaneous Information 1 ea NOTE XX ; Start 03/02/17 at 15:00 Glucose (Glutose) 15 gm Q15M PRN PO DECREASED GLUCOSE; Start 03/02/17 at 15:00 Glucose (Glutose) 22.5 gm Q15M PRN PO DECREASED GLUCOSE; Start 03/02/17 at 15: 00 Dextrose (D50w Syringe) 25 ml Q15M PRN IV DECREASED GLUCOSE; Start 03/02/17 at 15:00 Dextrose (D50w Syringe) 50 ml Q15M PRN IV DECREASED GLUCOSE; Start 03/02/17 at 15:00 Glucagon (Glucagen) 1 mg Q15M PRN IM DECREASED GLUCOSE; Start 03/02/17 at 15:00 Glucose 15 gm 15 gm Q15M PRN BUCCAL DECREASED GLUCOSE; Start 03/02/17 at 15:00 Dextrose (D5W) 1,000 ml @ 50 mls/hr Q20H IV Last administered on 03/04/17t 10: 00; Admin Dose 50 MLS/HR; Start 03/04/17 at 10:00 ANA MELENDEZ MD Mar 05, 2017 08:49
[2017-03-05] MEDS: MULTIVITAMINS THERAPEUTIC TAB PO SCH (09:00)
[2017-03-05] MEDS: TRIAMCINOLONE ACET 0.1% 15 GM OINT TOP SCH ×2 (09:00→21:00)
[2017-03-05] MEDS: MEGESTROL (40 MG/ML) 10ML CUP PO SCH ×2 (09:00→20:47)
[2017-03-05] MEDS: SALMETEROL/FLUTICASONE 250/50 INHA INH SCH ×2 (09:00→20:40)
[2017-03-05] MEDS: FUROSEMIDE 40 MG TAB PO SCH (09:00)
[2017-03-05] MEDS: NIFEdipine (XL) 30 MG TAB PO SCH (09:00)
[2017-03-05] MEDS: ALBUTEROL/IPRATROPIUM (NEB) 3 ML AMP HHN SCH ×4 (09:00→20:09)
[2017-03-05] MEDS ORDERED: EPOETIN 10000 UNITS/1 ML INJ (ESRD) IV SCH (09:00)
--- NOTE | 2017-03-05 11:26 | PN ---
DATE: 03/05/2017 SUBJECTIVE DATA: The patient has generalized weakness. No chest pain or shortness of breath. OBJECTIVE DATA: GENERAL: Patient is awake. VITAL SIGNS: Temperature 98.8, blood pressure 149/65, O2 sat 98 percent on room air. CHEST: Clinically clear. HEART: S1, S2. No audible gallops. ABDOMEN: Obese, nontender. EXTREMITIES: No edema. The patient presently getting dialyzed. LABORATORY AND DIAGNOSTIC DATA: Hematocrit is 22.8, WBC count 4.9, platelet count is 138,000. Potassium 3.5, BUN 46, creatinine 7.53. IMPRESSION: 1. End-stage renal failure on hemodialysis, presently being dialyzed. 2. Severe anemia, being transfused presently. 3. Thrombocytopenia, resolved. 4. Cirrhosis with portal hypertension, secondary to hepatitis C, which has been treated. 5. Duodenal ulcer with a gastrointestinal bleed. 6. Diabetes mellitus type 2. 7. Morbid obesity. 8. Obstructive sleep apnea. PLAN: We will continue to monitor for further signs of bleeding and monitor renal function. Follow recommendations per Dr. Castro. The patient has been advised to increase her p.o. intake and will also follow diabetic management per Ms. Catarina Flores, premeal Prandin 2 mg p.o. t.i.d. Dictated By: Ivan Brice MD /[email or web address] /Document#: [id number]
[2017-03-05] MEDS: REPAGLINIDE 2 MG TAB PO SCH ×2 (13:00→20:55)
[2017-03-05] MEDS: ACETAMINOPHEN 500 MG TAB PO PRN ×2 (17:57→20:39)
[2017-03-05] MEDS: ESCITALOPRAM 10 MG TAB PO SCH (20:39)
--- NOTE | 2017-03-05 20:40 | CONS ---
Date/Time of Note Date/Time of Note DATE: 03/05/17 TIME: 20:39 Assessment/Plan Assessment/Plan Additional Assessment/Plan Additional Assessment/Plan Additional Assessment/Plan 1. Melena, bleeding seems to have stopped hematocrit is stable, from acute duodenal ulcer 2. Cirrhosis of liver 3. Diabetes mellitus 4. End-stage kidney disease on dialysis 5. Thrombocytopenia, better Plan Continue PPI Monitor H&H May need beta nicole for gastric varicose vein Consultation Date/Type/Reason Admit Date/Time Feb 23, 2017 at 17:22 Initial Consult Date 02/25/17 Type of Consultation: renal 24 HR Interval Summary Constitutional: improved, no complaints Exam/Review of Systems Vital Signs Vitals Vital Signs Date Time Temp Pulse Resp B/P Pulse Ox O2 Delivery O2 Flow Rate FiO2 03/05/17 20:20 81 03/05/17 19:40 98.4 19 187/82 98 03/04/17 12:40 Nasal Cannula 2.0 Intake and Output 03/04/17 03/04/17 03/05/17 15:00 23:00 07:00 Intake Total 200 ml 250 ml Output Total 80 ml 60 ml Balance 120 ml 190 ml Exam Constitutional: alert, oriented, well developed Psych: nl mood/affect, no complaints Head: atraumatic, normocephalic Eyes: EOMI, PERRL, nl conjunctiva, nl lids, nl sclera ENMT: nl external ears & nose, nl lips & teeth, nl nasal mucosa & septum Neck: non-tender, supple Respiratory: clear to auscultation, normal air movement Cardiovascular: nl pulses, regular rate and rhythm Gastrointestinal: nl liver, spleen, non-tender, soft Musculoskeletal: nl extremities to inspection, nl gait and stance Extremities: normal pulses 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: [employer] II-XII intact, nl mental status, nl speech, nl strength Skin: nl turgor, No rash or lesions Lymph: nl lymph nodes Results Result Diagram: 03/05/17 0609 03/05/17 0609 Results 24 hrs Laboratory Tests Test 03/04/17 21:13 03/05/17 02:23 03/05/17 06:09 03/05/17 11:43 Bedside Glucose 178 162 117 White Blood Count 4.9 Red Blood Count 2.76 L Hemoglobin 7.4 L Hematocrit 22.8 L Mean Corpuscular Volume 82.6 Mean Corpuscular Hemoglobin 26.8 L Mean Corpuscular Hemoglobin Concent 32.5 Red Cell Distribution Width 18.3 H Platelet Count 138 L Mean Platelet Volume 11.0 H Neutrophils % 54.3 Lymphocytes % 26.6 Monocytes % 11.2 H Eosinophils % 7.3 H Basophils % 0.4 Nucleated Red Blood Cells % 0.0 Neutrophils # (Manual) 3 Lymphocytes # 1.3 Monocytes # 0.6 Eosinophils # 0.4 Basophils # 0.0 Nucleated Red Blood Cells # 0.0 Sodium Level 133 L Potassium Level 3.5 Chloride Level 97 Carbon Dioxide Level 25 Anion Gap 15 Blood Urea Nitrogen 43 H Creatinine 7.53 H Glucose Level 95 Calcium Level 7.6 L Test 03/05/17 17:55 Bedside Glucose 205 Medications Medications Current Medications Acetaminophen (Tylenol Tab) 500 mg Q6H PRN PO PAIN AND OR ELEVATED TEMP Last administered on 03/05/17 17:57; Admin Dose 500 MG; Start 02/23/17 at 19:00 Epoetin Sean (Epogen (Esrd)) 10,000 units MoWeFr@17 SC Last administered on 18:39; Admin Dose 10,000 UNITS; Start 02/25/17 at 17:00 Furosemide (Lasix) 40 mg DAILY PO Last administered on 03/03/17 13:39; Admin Dose 40 MG; Start 02/24/17 at 09:00 Hydroxyzine HCl (Atarax) 10 mg Q6H PRN PO ITCHING; Start 02/23/17 at 19:00 Lactulose (Enulose) 30 gm HS PO ; Start 02/23/17 at 21:00; Status Future Hold Lactulose (Enulose) 20 gm Q6 PRN PO CONSTIPATION; Start 02/23/17 at 19:00 Megestrol Acetate (Megace Susp) 400 mg BID PO Last administered on 03/01/17 09 :15; Admin Dose 400 MG; Start 02/23/17 at 21:00 Multivitamins Therapeutic (Theragran) 1 tab DAILY PO Last administered on 13:38; Admin Dose 1 TAB; Start 02/24/17 at 09:00 Nifedipine (Procardia Xl) 30 mg DAILY PO Last administered on 03/03/17 08:12; Admin Dose 30 MG; Start 02/24/17 at 09:00 Nitroglycerin (Nitroglycerin (Sl Tab) 0.4 Mg) 1 tab Q5M PRN SL ANGINA; Start at 19:00 Ondansetron HCl (Zofran Inj) 4 mg Q4H PRN IV NAUSEA AND/OR VOMITING; Start at 19:00 Promethazine HCl/ Dextromethorphan (Phenergan-Dm) 10 ml TID PRN PO COUGH; Start 02/23/17 at 19:00 Salmeterol Xinafoate/ Fluticasone (Advair 250/50 Diskus) 1 inh BID INH Last administered on 03/05/17 09:00; Admin Dose 1 INH; Start 02/23/17 at 21:00 Triamcinolone Acetonide (Kenalog 0.1% Oint) 1 applic BID TOP Last administered on 03/05/17 09:00; Admin Dose 1 APPLIC; Start 02/23/17 at 21:00 Diagnostic Test (Pha) (Accu-Chek) 1 ea 02 XX Last administered on 03/05/17 02: 29; Admin Dose 1 EA; Start 02/24/17 at 02:00 Escitalopram Oxalate (Lexapro) 10 mg QHS PO Last administered on 03/04/17 21: 14; Admin Dose 10 MG; Start 02/24/17 at 21:00 Ciprofloxacin (Cipro) 500 mg DAILY@06 PO Last administered on 03/05/17 06:00; Admin Dose 500 MG; Start 02/25/17 at 09:00 Pantoprazole (Protonix Tab) 40 mg BID@06,18 PO Last administered on 03/05/17 17:57; Admin Dose 40 MG; Start 02/26/17 at 18:00 Insulin Glargine (Lantus) 30 unit QHS SC Last administered on 03/04/17 21:20; Admin Dose 30 UNIT; Start 02/28/17 at 21:00 Miscellaneous Information 1 ea NOTE XX ; Start 03/02/17 at 15:00 Glucose (Glutose) 15 gm Q15M PRN PO DECREASED GLUCOSE; Start 03/02/17 at 15:00 Glucose (Glutose) 22.5 gm Q15M PRN PO DECREASED GLUCOSE; Start 03/02/17 at 15: 00 Dextrose (D50w Syringe) 25 ml Q15M PRN IV DECREASED GLUCOSE; Start 03/02/17 at 15:00 Dextrose (D50w Syringe) 50 ml Q15M PRN IV DECREASED GLUCOSE; Start 03/02/17 at 15:00 Glucagon (Glucagen) 1 mg Q15M PRN IM DECREASED GLUCOSE; Start 03/02/17 at 15:00 Glucose (Glutose) 15 gm Q15M PRN BUCCAL DECREASED GLUCOSE; Start 03/02/17 at 15 :00 Repaglinide (Prandin) 2 mg TID PO ; Start 03/05/17 at 13:00 Clonidine (Catapres) 0.1 mg Q4H PRN PO SBP > 170 or DBP > 110; Start 03/05/17 at 20:00 STUART STANLEY MD Mar 05, 2017 20:39
[2017-03-05] MEDS: INSULIN GLARGINE [LANtus] 3 ML PEN SC SCH (21:02)
[2017-03-06] VITALS (11 sets, daily range): BP systolic 115–150; BP diastolic 56–67; PULSE 66–82; RESP 19–20
[2017-03-06] MEDS: ACCU-CHEK XX SCH (02:58)
--- NOTE | 2017-03-06 04:40 | CONS ---
Date/Time of Note Date/Time of Note DATE: 03/06/17 TIME: 04:34 Assessment/Plan Assessment/Plan Chief Complaint/Hosp Course 1)GI bleed likely a combination of coags being off due to cirrhosis, renal dsyfunction and low platelets however pt has known ascites and with GI bleed he is at increased risk for SBP and prophylaxis would be recommended will start po cipro for this 02/27 - Hgb is stable but a.m. labs are pending 03/02 - no further bleeding 2) thrombocytopenia, worsened by vanco followed by zyvox this will likely start to recover in the next few days continue off zyvox 02/27 - pt got plt tx late 02/25/ early 02/26 await a.m. labs, if zyvox is the cause then platelets should recover over the weekend 03/02 - platelets have recovered, likely etiology was the zyvox ( thrombocytopenia is more likely when vanco preceeds zyvox) 3)cirrhosis with ascites and GI bleeding SBP prophylaxis is recommended will start cipro 500mg QD for 7 days then can change to bactrim or cipro for further prophylaxis 02/27 - continue with po cipro for 7 days then continue some form of prophylaxis afterwards 03/02 - after pt is done with cipro for 7 days (on 03/04) then start cipro 250 mg QD for prophylaxis 03/05 - d/c cipro and start bactrim for prophylaxis 4) ?UTI pt has no fever or elevated WBC unclear if he has an active infection but because of GI bleed will treat for SBP prophylaxis with cipro instead of ceftriaxone 03/02 - doubt pt has uti, will repeat u/a and urine cx, everytime it is different organisms, normal WBC and no fevers 03/05 start bactrim and see if it clears the e.coli in urine and repeat u/a and urine cx pt had two different e.coli in his urine cx, one was sensitive to bactrim the other was not 5) hx of Hep c and successfully treated 6) DM 7) hx of gout Problems: Consultation Date/Type/Reason Admit Date/Time Feb 23, 2017 at 17:22 Initial Consult Date 02/25/17 Type of Consultation: ID [id number] HR Interval Summary Free Text/Dictation pt is doing well marilyn with slight dysuria at beginning of stream no n,v, d, sob pt was seen on 03/05 Exam/Review of Systems Vital Signs Vitals Vital Signs Date Time Temp Pulse Resp B/P Pulse Ox O2 Delivery O2 Flow Rate FiO2 03/06/17 04:17 71 03/06/17 04:00 98.4 19 132/60 98 03/04/17 12:40 Nasal Cannula 2.0 Intake and Output 03/05/17 03/05/17 03/06/17 15:00 23:00 07:00 Intake Total 500 ml 500 ml Output Total 3000 ml 100 ml Balance -2500 ml 400 ml Exam Constitutional: alert, oriented Head: normocephalic Eyes: nl sclera ENMT: mucosa pink and moist Respiratory: clear to auscultation Cardiovascular: regular rate and rhythm Gastrointestinal: non-tender, soft Results Result Diagram: 03/05/17 0609 03/05/17 0609 Results 24 hrs Laboratory Tests Test 03/05/17 06:09 03/05/17 11:43 03/05/17 17:55 03/05/17 20:55 White Blood Count 4.9 Red Blood Count 2.76 L Hemoglobin 7.4 L Hematocrit 22.8 L Mean Corpuscular Volume 82.6 Mean Corpuscular Hemoglobin 26.8 L Mean Corpuscular Hemoglobin Concent 32.5 Red Cell Distribution Width 18.3 H Platelet Count 138 L Mean Platelet Volume 11.0 H Neutrophils % 54.3 Lymphocytes % 26.6 Monocytes % 11.2 H Eosinophils % 7.3 H Basophils % 0.4 Nucleated Red Blood Cells % 0.0 Neutrophils # (Manual) 3 Lymphocytes # 1.3 Monocytes # 0.6 Eosinophils # 0.4 Basophils # 0.0 Nucleated Red Blood Cells # 0.0 Sodium Level 133 L Potassium Level 3.5 Chloride Level 97 Carbon Dioxide Level 25 Anion Gap 15 Blood Urea Nitrogen 43 H Creatinine 7.53 H Glucose Level 95 Calcium Level 7.6 L Bedside Glucose 117 205 177 Test 03/06/17 02:55 Bedside Glucose 74 Medications Medications Current Medications Acetaminophen (Tylenol Tab) 500 mg Q6H PRN PO PAIN AND OR ELEVATED TEMP Last administered on 03/05/17 20:39; Admin Dose 500 MG; Start 02/23/17 at 19:00 Epoetin Sean (Epogen (Esrd)) 10,000 units MoWeFr@17 SC Last administered on 18:39; Admin Dose 10,000 UNITS; Start 02/25/17 at 17:00 Furosemide (Lasix) 40 mg DAILY PO Last administered on 03/03/17 13:39; Admin Dose 40 MG; Start 02/24/17 at 09:00 Hydroxyzine HCl (Atarax) 10 mg Q6H PRN PO ITCHING; Start 02/23/17 at 19:00 Lactulose (Enulose) 30 gm HS PO ; Start 02/23/17 at 21:00; Status Future Hold Lactulose (Enulose) 20 gm Q6 PRN PO CONSTIPATION; Start 02/23/17 at 19:00 Megestrol Acetate (Megace Susp) 400 mg BID PO Last administered on 03/01/17 09 :15; Admin Dose 400 MG; Start 02/23/17 at 21:00 Multivitamins Therapeutic (Theragran) 1 tab DAILY PO Last administered on 13:38; Admin Dose 1 TAB; Start 02/24/17 at 09:00 Nifedipine (Procardia Xl) 30 mg DAILY PO Last administered on 03/03/17 08:12; Admin Dose 30 MG; Start 02/24/17 at 09:00 Nitroglycerin (Nitroglycerin (Sl Tab) 0.4 Mg) 1 tab Q5M PRN SL ANGINA; Start at 19:00 Ondansetron HCl (Zofran Inj) 4 mg Q4H PRN IV NAUSEA AND/OR VOMITING; Start at 19:00 Promethazine HCl/ Dextromethorphan (Phenergan-Dm) 10 ml TID PRN PO COUGH; Start 02/23/17 at 19:00 Salmeterol Xinafoate/ Fluticasone (Advair 250/50 Diskus) 1 inh BID INH Last administered on 03/05/17 20:40; Admin Dose 1 INH; Start 02/23/17 at 21:00 Triamcinolone Acetonide (Kenalog 0.1% Oint) 1 applic BID TOP Last administered on 03/05/17 09:00; Admin Dose 1 APPLIC; Start 02/23/17 at 21:00 Diagnostic Test (Pha) (Accu-Chek) 1 ea 02 XX Last administered on 03/06/17 02: 58; Admin Dose 1 EA; Start 02/24/17 at 02:00 Escitalopram Oxalate (Lexapro) 10 mg QHS PO Last administered on 03/05/17 20: 39; Admin Dose 10 MG; Start 02/24/17 at 21:00 Ciprofloxacin (Cipro) 500 mg DAILY@06 PO Last administered on 03/05/17 06:00; Admin Dose 500 MG; Start 02/25/17 at 09:00 Pantoprazole (Protonix Tab) 40 mg BID@,18 PO Last administered on 03/05/17 17:57; Admin Dose 40 MG; Start 02/26/17 at 18:00 Insulin Glargine (Lantus) 30 unit QHS SC Last administered on 03/05/17 21:02; Admin Dose 30 UNIT; Start 02/28/17 at 21:00 Miscellaneous Information 1 ea NOTE XX ; Start 03/02/17 at 15:00 Glucose (Glutose) 15 gm Q15M PRN PO DECREASED GLUCOSE; Start 03/02/17 at 15:00 Glucose (Glutose) 22.5 gm Q15M PRN PO DECREASED GLUCOSE; Start 03/02/17 at 15: 00 Dextrose (D50w Syringe) 25 ml Q15M PRN IV DECREASED GLUCOSE; Start 03/02/17 at 15:00 Dextrose (D50w Syringe) 50 ml Q15M PRN IV DECREASED GLUCOSE; Start 03/02/17 at 15:00 Glucagon (Glucagen) 1 mg Q15M PRN IM DECREASED GLUCOSE; Start 03/02/17 at 15:00 Glucose (Glutose) 15 gm Q15M PRN BUCCAL DECREASED GLUCOSE; Start 03/02/17 at 15 :00 Repaglinide (Prandin) 2 mg TID PO Last administered on 03/05/17 20:55; Admin Dose 2 MG; Start 03/05/17 at 13:00 Clonidine (Catapres) 0.1 mg Q4H PRN PO SBP > 170 or DBP > 110 Last administered on 03/05/17 20:41; Admin Dose 0.1 MG; Start 03/05/17 at 20:00 DANYEL HART MD Mar 06, 2017 04:40
[2017-03-06] MEDS: PANTOPRAZOLE (EC) 40 MG TAB PO SCH ×2 (05:40→17:49)
[2017-03-06 07:01] LABS: BASOPHILS % 0.7 % (0.0-2.0); EOSINOPHILS # 0.4 10^3/ul (0.0-0.5); EOSINOPHILS % 9.1 % (0.0-7.0); HEMATOCRIT 25.2 % (42.0-52.0); LYMPHOCYTES # 1.3 10^3/ul (0.8-2.9); LYMPHOCYTES % 29.5 % (15.0-51.0); MEAN CORPUSCULAR HGB CONC 31.7 g/dl (32.0-37.0); MEAN CORPUSCULAR VOLUME 85.1 fl (82.0-101.0); MEAN PLATELET VOLUME 11.6 fl (7.4-10.4); MONOCYTE # 0.5 10^3/ul (0.3-0.9); MONOCYTES % 12.6 % (0.0-11.0); NEUTROPHILS % 47.9 % (39.0-77.0); PLATELET COUNT 146 10^3/UL (140-415); RED BLOOD COUNT 2.96 10^6/ul (4.70-6.10); RED CELL DISTRIBUTION WIDTH 18.3 % (11.5-14.5); WHITE BLOOD COUNT 4.3 10^3/ul (4.8-10.8)
[2017-03-06 07:22] LABS: CALCIUM 7.7 mg/dl (8.4-10.2); CREATININE 5.33 mg/dl (0.61-1.24); POTASSIUM 3.2 mmol/L (3.5-5.1)
[2017-03-06] MEDS: INSULIN ASPART [NOVOLOG] 3 ML PEN SC SCH ×4 (07:55→20:28)
[2017-03-06] MEDS: ALBUTEROL/IPRATROPIUM (NEB) 3 ML AMP HHN SCH ×4 (08:30→21:00)
[2017-03-06] MEDS: REPAGLINIDE 2 MG TAB PO SCH ×3 (08:53→21:00)
[2017-03-06] MEDS: MEGESTROL (40 MG/ML) 10ML CUP PO SCH ×2 (08:53→20:29)
[2017-03-06] MEDS: MULTIVITAMINS THERAPEUTIC TAB PO SCH (08:53)
[2017-03-06] MEDS: SALMETEROL/FLUTICASONE 250/50 INHA INH SCH ×2 (08:53→21:48)
[2017-03-06] MEDS: NIFEdipine (XL) 30 MG TAB PO SCH (08:54)
[2017-03-06] MEDS: TRIMETHOPRIM/SULFAMETHOX (DS) TAB PO SCH (08:54)
[2017-03-06] MEDS: FUROSEMIDE 40 MG TAB PO SCH (08:54)
[2017-03-06] MEDS: TRIAMCINOLONE ACET 0.1% 15 GM OINT TOP SCH ×2 (08:56→20:29)
--- NOTE | 2017-03-06 09:01 | CONS ---
Date/Time of Note Date/Time of Note DATE: 03/06/17 TIME: 08:57 Assessment/Plan Assessment/Plan Chief Complaint/Hosp Course 1. End-stage renal disease now requiring maintenance hemodialysis Thursday. His hemoglobin and hematocrit are drifting down but stable today. He is due for hemodialysis tomorrow , which is ordered. 1 unit blood transfusion was given with hemodialysis yesterday . 2. Cirrhosis of the liver, he has a history of hepatitis C which was treated. He does have cirrhosis and has had hepatic encephalopathy which is now treated. His last ammonia level was normal. He is on lactulose. 3. Fluid overloaded now much improved 4. Anemia , he had some GI bleeding which has stopped. His H&H is higher today . 5. Diabetes mellitus 6. Morbid obesity 7. Sleep apnea 8. Urinary tract infection , treated 9. Congestive heart failure , improved 10. Thrombocytopenia, his platelet count is higher. Probably due to antibiotics that he was on. Problems: Consultation Date/Type/Reason Admit Date/Time Feb 23, 2017 at 17:22 Initial Consult Date 02/25/17 Type of Consultation: renal 24 HR Interval Summary Constitutional: improved, no complaints Exam/Review of Systems Vital Signs Vitals Vital Signs Date Time Temp Pulse Resp B/P Pulse Ox O2 Delivery O2 Flow Rate FiO2 03/06/17 08:31 71 98 03/06/17 07:14 98.4 19 141/64 03/04/17 12:40 Nasal Cannula 2.0 Intake and Output 03/05/17 03/05/17 03/06/17 15:00 23:00 07:00 Intake Total 500 ml 500 ml 350 ml Output Total 3000 ml 100 ml 80 ml Balance -2500 ml 400 ml 270 ml Exam Constitutional: alert, frail, obese, oriented Respiratory: clear to auscultation, normal air movement Cardiovascular: regular rate and rhythm Gastrointestinal: non-tender, soft Musculoskeletal: nl extremities to inspection Results Result Diagram: 03/06/17 0555 03/06/17 0555 Results 24 hrs Laboratory Tests Test 03/05/17 11:43 03/05/17 17:55 03/05/17 20:55 03/06/17 02:55 Bedside Glucose 117 205 177 74 Test 03/06/17 05:55 03/06/17 06:27 03/06/17 08:15 White Blood Count 4.3 L Red Blood Count 2.96 L Hemoglobin 8.0 L Hematocrit 25.2 L Mean Corpuscular Volume 85.1 Mean Corpuscular Hemoglobin 27.0 L Mean Corpuscular Hemoglobin Concent 31.7 L Red Cell Distribution Width 18.3 H Platelet Count 146 Mean Platelet Volume 11.6 H Neutrophils % 47.9 Lymphocytes % 29.5 Monocytes % 12.6 H Eosinophils % 9.1 H Basophils % 0.7 Nucleated Red Blood Cells % 0.0 Neutrophils # (Manual) 2.1 Lymphocytes # 1.3 Monocytes # 0.5 Eosinophils # 0.4 Basophils # 0.0 Nucleated Red Blood Cells # 0.0 Sodium Level 135 Potassium Level 3.2 L Chloride Level 97 Carbon Dioxide Level 30 Anion Gap 11 Blood Urea Nitrogen 27 #H Creatinine 5.33 #H Glucose Level 59 #L Calcium Level 7.7 L Lab Scanned Report BLOOD TRANSFUSION Bedside Glucose 73 Medications Medications Current Medications Acetaminophen (Tylenol Tab) 500 mg Q6H PRN PO PAIN AND OR ELEVATED TEMP Last administered on 03/05/17 20:39; Admin Dose 500 MG; Start 02/23/17 at 19:00 Epoetin Sean (Epogen (Esrd)) 10,000 units MoWeFr@17 SC Last administered on 18:39; Admin Dose 10,000 UNITS; Start 02/25/17 at 17:00 Furosemide (Lasix) 40 mg DAILY PO Last administered on 03/03/17 13:39; Admin Dose 40 MG; Start 02/24/17 at 09:00 Hydroxyzine HCl (Atarax) 10 mg Q6H PRN PO ITCHING; Start 02/23/17 at 19:00 Lactulose (Enulose) 30 gm HS PO ; Start 02/23/17 at 21:00; Status Future Hold Lactulose (Enulose) 20 gm Q6 PRN PO CONSTIPATION; Start 02/23/17 at 19:00 Megestrol Acetate (Megace Susp) 400 mg BID PO Last administered on 03/01/17 09 :15; Admin Dose 400 MG; Start 02/23/17 at 21:00 Multivitamins Therapeutic (Theragran) 1 tab DAILY PO Last administered on 13:38; Admin Dose 1 TAB; Start 02/24/17 at 09:00 Nifedipine (Procardia Xl) 30 mg DAILY PO Last administered on 03/03/17 08:12; Admin Dose 30 MG; Start 02/24/17 at 09:00 Nitroglycerin (Nitroglycerin (Sl Tab) 0.4 Mg) 1 tab Q5M PRN SL ANGINA; Start at 19:00 Ondansetron HCl (Zofran Inj) 4 mg Q4H PRN IV NAUSEA AND/OR VOMITING; Start at 19:00 Promethazine HCl/ Dextromethorphan (Phenergan-Dm) 10 ml TID PRN PO COUGH; Start 02/23/17 at 19:00 Salmeterol Xinafoate/ Fluticasone (Advair 250/50 Diskus) 1 inh BID INH Last administered on 03/05/17 20:40; Admin Dose 1 INH; Start 02/23/17 at 21:00 Triamcinolone Acetonide (Kenalog 0.1% Oint) 1 applic BID TOP Last administered on 03/05/17 09:00; Admin Dose 1 APPLIC; Start 02/23/17 at 21:00 Diagnostic Test (Pha) (Accu-Chek) 1 ea 02 XX Last administered on 03/06/17 02: 58; Admin Dose 1 EA; Start 02/24/17 at 02:00 Escitalopram Oxalate (Lexapro) 10 mg QHS PO Last administered on 03/05/17 20: 39; Admin Dose 10 MG; Start 02/24/17 at 21:00 Pantoprazole (Protonix Tab) 40 mg BID@06,18 PO Last administered on 03/06/17 05:40; Admin Dose 40 MG; Start 02/26/17 at 18:00 Insulin Glargine (Lantus) 30 unit QHS SC Last administered on 03/05/17 21:02; Admin Dose 30 UNIT; Start 02/28/17 at 21:00 Miscellaneous Information 1 ea NOTE XX ; Start 03/02/17 at 15:00 Glucose (Glutose) 15 gm Q15M PRN PO DECREASED GLUCOSE; Start 03/02/17 at 15:00 Glucose (Glutose) 22.5 gm Q15M PRN PO DECREASED GLUCOSE; Start 03/02/17 at 15: 00 Dextrose (D50w Syringe) 25 ml Q15M PRN IV DECREASED GLUCOSE; Start 03/02/17 at 15:00 Dextrose (D50w Syringe) 50 ml Q15M PRN IV DECREASED GLUCOSE; Start 03/02/17 at 15:00 Glucagon (Glucagen) 1 mg Q15M PRN IM DECREASED GLUCOSE; Start 03/02/17 at 15:00 Glucose (Glutose) 15 gm Q15M PRN BUCCAL DECREASED GLUCOSE; Start 03/02/17 at 15 :00 Repaglinide (Prandin) 2 mg TID PO Last administered on 03/05/17 20:55; Admin Dose 2 MG; Start 03/05/17 at 13:00 Clonidine (Catapres) 0.1 mg Q4H PRN PO SBP > 170 or DBP > 110 Last administered on 03/05/17 20:41; Admin Dose 0.1 MG; Start 03/05/17 at 20:00 Trimethoprim/ Sulfamethoxazole (Bactrim (Ds)) 1 tab DAILY PO ; Start 03/06/17 at 09:00 ANA MELENDEZ MD Mar 06, 2017 09:01
[2017-03-06 10:48] LABS: ADD UMIC YES; UR ASCORBIC ACID NEGATIVE (NEGATIVE); UR BACTERIA FEW /HPF (NONE SEEN); UR BILIRUBIN (Dip) NEGATIVE (NEGATIVE); UR BLOOD (Dip) 2+ mg/dL (NEGATIVE); UR BUDDING YEAST FEW /HPF (NONE SEEN); UR CLARITY TURBID (CLEAR); UR COLOR YELLOW (YELLOW); UR GLUCOSE (Dip) NEGATIVE (NEGATIVE); UR KETONES (Dip) NEGATIVE (NEGATIVE); UR LEUKOCYTE ESTERASE (Dip) 3+ Leu/ul (NEGATIVE); UR NITRITE (Dip) NEGATIVE (NEGATIVE); UR RBC 33 /HPF (0-5); UR SPECIFIC GRAVITY (Dip) 1.014 (1.003-1.030); UR TOTAL PROTEIN (Dip) 3+ mg/dl (NEGATIVE); UR UROBILINOGEN (Dip) NEGATIVE (NEGATIVE); UR WBC CLUMPS MANY /HPF (NONE SEEN)
--- NOTE | 2017-03-06 10:58 | CONS ---
Date/Time of Note Date/Time of Note DATE: 03/06/17 TIME: 10:57 Assessment/Plan Assessment/Plan Additional Assessment/Plan Additional Assessment/Plan 1. Melena, bleeding seems to have stopped hematocrit is stable, from acute duodenal ulcer 2. Cirrhosis of liver 3. Diabetes mellitus 4. End-stage kidney disease on dialysis 5. Thrombocytopenia, better Plan Continue PPI Monitor H&H May need beta nicole for gastric varicose vein, if okay with box sealing machine catcher we can use Coreg or nadolol Consultation Date/Type/Reason Admit Date/Time Feb 23, 2017 at 17:22 Initial Consult Date 02/25/17 Type of Consultation: renal 24 HR Interval Summary Constitutional: improved, no complaints Exam/Review of Systems Vital Signs Vitals Vital Signs Date Time Temp Pulse Resp B/P Pulse Ox O2 Delivery O2 Flow Rate FiO2 03/06/17 08:31 71 98 03/06/17 07:14 98.4 19 141/64 03/04/17 12:40 Nasal Cannula 2.0 Intake and Output 03/05/17 03/05/17 03/06/17 15:00 23:00 07:00 Intake Total 500 ml 500 ml 350 ml Output Total 3000 ml 100 ml 80 ml Balance -2500 ml 400 ml 270 ml Exam Constitutional: alert, oriented, well developed Psych: nl mood/affect, no complaints Head: atraumatic, normocephalic Eyes: EOMI, PERRL, nl conjunctiva, nl lids, nl sclera ENMT: nl external ears & nose, nl lips & teeth, nl nasal mucosa & septum Neck: non-tender, supple Respiratory: clear to auscultation, normal air movement Cardiovascular: nl pulses, regular rate and rhythm Gastrointestinal: nl liver, spleen, non-tender, soft Musculoskeletal: nl extremities to inspection, nl gait and stance Extremities: normal pulses 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: GR[employer] SANDB[employer]PRENTICE II-XII intact, nl mental status, nl speech, nl strength Skin: nl turgor, No rash or lesions Lymph: nl lymph nodes Results Result Diagram: 03/06/17 0555 03/06/17 0555 Results 24 hrs Laboratory Tests Test 03/05/17 11:43 03/05/17 17:55 03/05/17 20:55 03/06/17 02:55 Bedside Glucose 117 205 177 74 Test 03/06/17 05:55 03/06/17 06:27 03/06/17 08:15 03/06/17 09:10 White Blood Count 4.3 L Red Blood Count 2.96 L Hemoglobin 8.0 L Hematocrit 25.2 L Mean Corpuscular Volume 85.1 Mean Corpuscular Hemoglobin 27.0 L Mean Corpuscular Hemoglobin Concent 31.7 L Red Cell Distribution Width 18.3 H Platelet Count 146 Mean Platelet Volume 11.6 H Neutrophils % 47.9 Lymphocytes % 29.5 Monocytes % 12.6 H Eosinophils % 9.1 H Basophils % 0.7 Nucleated Red Blood Cells % 0.0 Neutrophils # (Manual) 2.1 Lymphocytes # 1.3 Monocytes # 0.5 Eosinophils # 0.4 Basophils # 0.0 Nucleated Red Blood Cells # 0.0 Sodium Level 135 Potassium Level 3.2 L Chloride Level 97 Carbon Dioxide Level 30 Anion Gap 11 Blood Urea Nitrogen 27 #H Creatinine 5.33 #H Glucose Level 59 #L Calcium Level 7.7 L Lab Scanned Report BLOOD TRANSFUSION Bedside Glucose 73 Urine Color YELLOW Urine Clarity TURBID A Urine pH 5.0 Urine Specific [place] 1.014 Urine Ketones NEGATIVE Urine Nitrite NEGATIVE Urine Bilirubin NEGATIVE Urine Urobilinogen NEGATIVE Urine Leukocyte Esterase 3+ H Urine Microscopic RBC 33 H Urine Microscopic WBC > 182 H Urine Bacteria FEW A Urine Yeast (Budding) FEW A Urine Hemoglobin 2+ H Urine Glucose NEGATIVE Urine Total Protein 3+ H Medications Medications Current Medications Acetaminophen (Tylenol Tab) 500 mg Q6H PRN PO PAIN AND OR ELEVATED TEMP Last administered on 03/05/17 20:39; Admin Dose 500 MG; Start 02/23/17 at 19:00 Epoetin Sean (Epogen (Esrd)) 10,000 units MoWeFr@17 SC Last administered on 18:39; Admin Dose 10,000 UNITS; Start 02/25/17 at 17:00 Furosemide (Lasix) 40 mg DAILY PO Last administered on 03/06/17 08:54; Admin Dose 40 MG; Start 02/24/17 at 09:00 Hydroxyzine HCl (Atarax) 10 mg Q6H PRN PO ITCHING; Start 02/23/17 at 19:00 Lactulose (Enulose) 30 gm HS PO ; Start 02/23/17 at 21:00; Status Future Hold Lactulose (Enulose) 20 gm Q6 PRN PO CONSTIPATION; Start 02/23/17 at 19:00 Megestrol Acetate (Megace Susp) 400 mg BID PO Last administered on 03/06/17 08 :53; Admin Dose 400 MG; Start 02/23/17 at 21:00 Multivitamins Therapeutic (Theragran) 1 tab DAILY PO Last administered on 08:53; Admin Dose 1 TAB; Start 02/24/17 at 09:00 Nifedipine (Procardia Xl) 30 mg DAILY PO Last administered on 03/06/17 08:54; Admin Dose 30 MG; Start 02/24/17 at 09:00 Nitroglycerin (Nitroglycerin (Sl Tab) 0.4 Mg) 1 tab Q5M PRN SL ANGINA; Start at 19:00 Ondansetron HCl (Zofran Inj) 4 mg Q4H PRN IV NAUSEA AND/OR VOMITING; Start at 19:00 Promethazine HCl/ Dextromethorphan (Phenergan-Dm) 10 ml TID PRN PO COUGH; Start 02/23/17 at 19:00 Salmeterol Xinafoate/ Fluticasone (Advair 250/50 Diskus) 1 inh BID INH Last administered on 03/06/17 08:53; Admin Dose 1 INH; Start 02/23/17 at 21:00 Triamcinolone Acetonide (Kenalog 0.1% Oint) 1 applic BID TOP Last administered on 03/05/17 09:00; Admin Dose 1 APPLIC; Start 02/23/17 at 21:00 Diagnostic Test (Pha) (Accu-Chek) 1 ea 02 XX Last administered on 03/06/17 02: 58; Admin Dose 1 EA; Start 02/24/17 at 02:00 Escitalopram Oxalate (Lexapro) 10 mg QHS PO Last administered on 03/05/17 20: 39; Admin Dose 10 MG; Start 02/24/17 at 21:00 Pantoprazole (Protonix Tab) 40 mg BID@06,18 PO Last administered on 03/06/17 05:40; Admin Dose 40 MG; Start 02/26/17 at 18:00 Insulin Glargine (Lantus) 30 unit QHS SC Last administered on 03/05/17 21:02; Admin Dose 30 UNIT; Start 02/28/17 at 21:00 Miscellaneous Information 1 ea NOTE XX ; Start 03/02/17 at 15:00 Glucose (Glutose) 15 gm Q15M PRN PO DECREASED GLUCOSE; Start 03/02/17 at 15:00 Glucose (Glutose) 22.5 gm Q15M PRN PO DECREASED GLUCOSE; Start 03/02/17 at 15: 00 Dextrose (D50w Syringe) 25 ml Q15M PRN IV DECREASED GLUCOSE; Start 03/02/17 at 15:00 Dextrose (D50w Syringe) 50 ml Q15M PRN IV DECREASED GLUCOSE; Start 03/02/17 at 15:00 Glucagon (Glucagen) 1 mg Q15M PRN IM DECREASED GLUCOSE; Start 03/02/17 at 15:00 Glucose (Glutose) 15 gm Q15M PRN BUCCAL DECREASED GLUCOSE; Start 03/02/17 at 15 :00 Repaglinide (Prandin) 2 mg TID PO Last administered on 03/06/17 08:53; Admin Dose 2 MG; Start 03/05/17 at 13:00 Clonidine (Catapres) 0.1 mg Q4H PRN PO SBP > 170 or DBP > 110 Last administered on 03/05/17 20:41; Admin Dose 0.1 MG; Start 03/05/17 at 20:00 Trimethoprim/ Sulfamethoxazole (Bactrim (Ds)) 1 tab DAILY PO Last administered on 03/06/17 08:54; Admin Dose 1 TAB; Start 03/06/17 at 09:00 STUART STANLEY MD Mar 06, 2017 10:58
[2017-03-06] MEDS ORDERED: POTASSIUM CHLORIDE (SR) 20 MEQ TAB PO STA (14:05)
[2017-03-06] MEDS: EPOETIN 10000 UNITS/1 ML INJ (ESRD) SC SCH (17:28)
[2017-03-06] MEDS: ESCITALOPRAM 10 MG TAB PO SCH (20:19)
[2017-03-06] MEDS: ACETAMINOPHEN 500 MG TAB PO PRN (20:19)
[2017-03-06] MEDS: INSULIN GLARGINE [LANtus] 3 ML PEN SC SCH (20:26)
--- NOTE | 2017-03-06 21:52 | PN ---
DATE: 03/06/2017 SUBJECTIVE: The patient feels very weak. OBJECTIVE DATA: Temperature 98.5, blood pressure 115/56, O2 sat 98 percent. GENERAL: Mild pallor without cyanosis. CHEST: Clinically clear. HEART: S1, S2. No definite gallops. ABDOMEN: Soft, nontender. EXTREMITIES: No edema. LABORATORY AND DIAGNOSTIC DATA: Blood glucose levels 59 in the morning, 73, and 124 on Prandin, Lantus insulin, dose being lowered. IMPRESSION: 1. Hypokalemia. 2. Acute on chronic renal failure on hemodialysis. For dialysis tomorrow. 3. Anemia, status post 1 unit of RBC transfusion yesterday. 4. Thrombocytopenia, improved. 5. Cirrhosis with portal hypertension secondary to hepatitis C, which has been treated. 6. Duodenal ulcer with gastrointestinal bleed. 7. Diabetes mellitus type 2 with recent hypoglycemia. 8. Morbid obesity. 9. Obstructive sleep apnea. PLAN: Will decrease the Lantus insulin. Closely monitor his blood glucose levels. Replace potassium. Continue physical therapy. Observe patient and anticipate discharge early next week if the patient is stable. Will discuss with other MD. Dictated By: Ivan Brice MD /[email or web address] /Document#: [id number]
[2017-03-07] VITALS (15 sets, daily range): BP systolic 117–166; BP diastolic 52–77; PULSE 80–101; RESP 19–20
[2017-03-07] MEDS: ACCU-CHEK XX SCH (02:00)
[2017-03-07] MEDS: PANTOPRAZOLE (EC) 40 MG TAB PO SCH ×2 (06:00→17:21)
[2017-03-07 06:54] LABS: BASOPHILS % 0.6 % (0.0-2.0); EOSINOPHILS # 0.4 10^3/ul (0.0-0.5); EOSINOPHILS % 8.5 % (0.0-7.0); HEMATOCRIT 26.5 % (42.0-52.0); HEMOGLOBIN 8.5 g/dl (14.0-18.0); LYMPHOCYTES # 1.3 10^3/ul (0.8-2.9); LYMPHOCYTES % 24.9 % (15.0-51.0); MEAN CORPUSCULAR HEMOGLOBIN 27.5 pg (29.0-33.0); MEAN CORPUSCULAR HGB CONC 32.1 g/dl (32.0-37.0); MEAN CORPUSCULAR VOLUME 85.8 fl (82.0-101.0); MEAN PLATELET VOLUME 10.5 fl (7.4-10.4); MONOCYTE # 0.6 10^3/ul (0.3-0.9); MONOCYTES % 10.8 % (0.0-11.0); NEUTROPHILS % 54.8 % (39.0-77.0); PLATELET COUNT 145 10^3/UL (140-415); RED BLOOD COUNT 3.09 10^6/ul (4.70-6.10); RED CELL DISTRIBUTION WIDTH 18.1 % (11.5-14.5); WHITE BLOOD COUNT 5.2 10^3/ul (4.8-10.8)
[2017-03-07 07:17] LABS: CALCIUM 7.7 mg/dl (8.4-10.2); CREATININE 6.56 mg/dl (0.61-1.24); MAGNESIUM 2.1 mg/dl (1.7-2.5); POTASSIUM 3.6 mmol/L (3.5-5.1)
[2017-03-07] MEDS: INSULIN ASPART [NOVOLOG] 3 ML PEN SC SCH ×4 (07:33→21:00)
[2017-03-07] MEDS: ALBUTEROL/IPRATROPIUM (NEB) 3 ML AMP HHN SCH ×3 (08:00→21:00)
[2017-03-07] MEDS: MEGESTROL (40 MG/ML) 10ML CUP PO SCH ×2 (08:30→21:50)
[2017-03-07] MEDS: SALMETEROL/FLUTICASONE 250/50 INHA INH SCH ×2 (08:30→21:50)
[2017-03-07] MEDS: TRIAMCINOLONE ACET 0.1% 15 GM OINT TOP SCH ×2 (08:31→21:50)
[2017-03-07] MEDS: TRIMETHOPRIM/SULFAMETHOX (DS) TAB PO SCH (08:31)
[2017-03-07] MEDS: MULTIVITAMINS THERAPEUTIC TAB PO SCH (08:31)
[2017-03-07] MEDS: REPAGLINIDE 2 MG TAB PO SCH ×3 (08:31→21:50)
[2017-03-07] MEDS: NIFEdipine (XL) 30 MG TAB PO SCH (08:31)
[2017-03-07] MEDS: FUROSEMIDE 40 MG TAB PO SCH (08:31)
--- NOTE | 2017-03-07 10:20 | CONS ---
Date/Time of Note Date/Time of Note DATE: 03/07/17 TIME: 10:18 Assessment/Plan Assessment/Plan Additional Assessment/Plan 1. CKD, HD in progress 2. 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 Upper gi bleeding, with stable HCT 4. Prior noted thrombocytopenia, now nl Consultation Date/Type/Reason Admit Date/Time Feb 23, 2017 at 17:22 Initial Consult Date 02/25/17 Type of Consultation: renal Detailed Summary Respiratory: No cough, No shortness of breath Cardiovascular: No chest pain Gastrointestinal: no complaints Genitourinary: no complaints Exam/Review of Systems Vital Signs Vitals Vital Signs Date Time Temp Pulse Resp B/P Pulse Ox O2 Delivery O2 Flow Rate FiO2 03/07/17 08:20 101 03/07/17 08:00 96 03/07/17 07:54 99.1 19 166/77 03/07/17 06:00 Nasal Cannula 2.0 Intake and Output 03/06/17 03/06/17 03/07/17 15:00 23:00 07:00 Intake Total 800 ml Balance 800 ml Exam Neck: No jvd Respiratory: clear to auscultation Cardiovascular: regular rate and rhythm Gastrointestinal: other (sl distension and not tend), soft Extremities: No edema (and no calf tend bilat) Results Result Diagram: 03/07/17 0520 03/07/17 0520 Results 24 hrs Laboratory Tests Test 03/06/17 12:00 03/06/17 17:26 03/06/17 20:23 03/07/17 05:20 Bedside Glucose 124 170 180 White Blood Count 5.2 # Red Blood Count 3.09 L Hemoglobin 8.5 L Hematocrit 26.5 L Mean Corpuscular Volume 85.8 Mean Corpuscular Hemoglobin 27.5 L Mean Corpuscular Hemoglobin Concent 32.1 Red Cell Distribution Width 18.1 H Platelet Count 145 Mean Platelet Volume 10.5 H Neutrophils % 54.8 Lymphocytes % 24.9 Monocytes % 10.8 Eosinophils % 8.5 H Basophils % 0.6 Nucleated Red Blood Cells % 0.0 Neutrophils # (Manual) 2.9 Lymphocytes # 1.3 Monocytes # 0.6 Eosinophils # 0.4 Basophils # 0.0 Nucleated Red Blood Cells # 0.0 Sodium Level 133 L Potassium Level 3.6 Chloride Level 97 Carbon Dioxide Level 27 Anion Gap 13 Blood Urea Nitrogen 37 H Creatinine 6.56 H Glucose Level 90 Calcium Level 7.7 L Magnesium Level 2.1 Medications Medications Current Medications Acetaminophen (Tylenol Tab) 500 mg Q6H PRN PO PAIN AND OR ELEVATED TEMP Last administered on 03/06/17 20:19; Admin Dose 500 MG; Start 02/23/17 at 19:00 Epoetin Sean (Epogen (Esrd)) 10,000 units MoWeFr@17 SC Last administered on 17:28; Admin Dose 10,000 UNITS; Start 02/25/17 at 17:00 Furosemide (Lasix) 40 mg DAILY PO Last administered on 03/07/17 08:31; Admin Dose 40 MG; Start 02/24/17 at 09:00 Hydroxyzine HCl (Atarax) 10 mg Q6H PRN PO ITCHING; Start 02/23/17 at 19:00 Lactulose (Enulose) 30 gm HS PO ; Start 02/23/17 at 21:00; Status Future Hold Lactulose (Enulose) 20 gm Q6 PRN PO CONSTIPATION; Start 02/23/17 at 19:00 Megestrol Acetate (Megace Susp) 400 mg BID PO Last administered on 03/06/17 08 :53; Admin Dose 400 MG; Start 02/23/17 at 21:00 Multivitamins Therapeutic (Theragran) 1 tab DAILY PO Last administered on 08:31; Admin Dose 1 TAB; Start 02/24/17 at 09:00 Nifedipine (Procardia Xl) 30 mg DAILY PO Last administered on 03/07/17 08:31; Admin Dose 30 MG; Start 02/24/17 at 09:00 Nitroglycerin (Nitroglycerin (Sl Tab) 0.4 Mg) 1 tab Q5M PRN SL ANGINA; Start at 19:00 Ondansetron HCl (Zofran Inj) 4 mg Q4H PRN IV NAUSEA AND/OR VOMITING; Start at 19:00 Promethazine HCl/ Dextromethorphan (Phenergan-Dm) 10 ml TID PRN PO COUGH; Start 02/23/17 at 19:00 Salmeterol Xinafoate/ Fluticasone (Advair 250/50 Diskus) 1 inh BID INH Last administered on 03/07/17 08:30; Admin Dose 1 INH; Start 02/23/17 at 21:00 Triamcinolone Acetonide (Kenalog 0.1% Oint) 1 applic BID TOP Last administered on 03/06/17 20:29; Admin Dose 1 APPLIC; Start 02/23/17 at 21:00 Diagnostic Test (Pha) (Accu-Chek) 1 ea 02 XX Last administered on 03/06/17 02: 58; Admin Dose 1 EA; Start 02/24/17 at 02:00 Escitalopram Oxalate (Lexapro) 10 mg QHS PO Last administered on 03/06/17 20: 19; Admin Dose 10 MG; Start 02/24/17 at 21:00 Pantoprazole (Protonix Tab) 40 mg BID@18 PO Last administered on 03/07/17 06:00; Admin Dose 40 MG; Start 02/26/17 at 18:00 Miscellaneous Information 1 ea NOTE XX ; Start 03/02/17 at 15:00 Glucose (Glutose) 15 gm Q15M PRN PO DECREASED GLUCOSE; Start 03/02/17 at 15:00 Glucose (Glutose) 22.5 gm Q15M PRN PO DECREASED GLUCOSE; Start 03/02/17 at 15: 00 Dextrose (D50w Syringe) 25 ml Q15M PRN IV DECREASED GLUCOSE; Start 03/02/17 at 15:00 Dextrose (D50w Syringe) 50 ml Q15M PRN IV DECREASED GLUCOSE; Start 03/02/17 at 15:00 Glucagon (Glucagen) 1 mg Q15M PRN IM DECREASED GLUCOSE; Start 03/02/17 at 15:00 Glucose (Glutose) 15 gm Q15M PRN BUCCAL DECREASED GLUCOSE; Start 03/02/17 at 15 :00 Repaglinide (Prandin) 2 mg TID PO Last administered on 03/06/17 08:53; Admin Dose 2 MG; Start 03/05/17 at 13:00 Clonidine (Catapres) 0.1 mg Q4H PRN PO SBP > 170 or DBP > 110 Last administered on 03/05/17 20:41; Admin Dose 0.1 MG; Start 03/05/17 at 20:00 Trimethoprim/ Sulfamethoxazole (Bactrim (Ds)) 1 tab DAILY PO Last administered on 8/26/17at 08:31; Admin Dose 1 TAB; Start 03/06/17 at 09:00 Insulin Glargine (Lantus) 24 unit QHS SC Last administered on 03/06/17t 20:26; Admin Dose 24 UNIT; Start 03/06/17 at 21:00 NICOLE WANG MD Mar 07, 2017 10:20
--- NOTE | 2017-03-07 13:38 | PN ---
DATE: 03/07/2017 SUBJECTIVE DATA: The patient overall feels well. Appetite is slowly improving. Complains of generalized weakness. Presently being hemodialyzed. PHYSICAL EXAM: GENERAL: Patient is awake, alert. No signs of encephalopathy. VITAL SIGNS: Temperature 98, blood pressure 117/64, heart rate 84 per minute. O2 saturation 96 percent on room air. HEENT: Head normocephalic. Mild pallor without cyanosis. Tongue is coated. CHEST: Clear anteriorly. HEART: S1, S2. No definite gallops. ABDOMEN: Obese. No definite tenderness. EXTREMITIES: No edema. Homans negative. LABORATORY: WBC count 5.2, hematocrit 26.5, hemoglobin 8.5, platelet count 145,000. Sodium 133, potassium 3.6. IMPRESSION: 1. Hypokalemia, resolved. 2. Acute on chronic renal failure on hemodialysis, being dialyzed. 3. Anemia of thrombocytopenia, improved. 4. 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 5. Duodenal ulcer with gastrointestinal bleed, resolved. 6. Diabetes mellitus type 2, well-controlled. 7. Morbid obesity. 8. Obstructive sleep apnea. PLAN: We will continue hemodialysis. Dr. Arteaga's recommendation regarding beta-blockers is noted regarding varicose vein management. The patient had severe bradycardia during last hospitalization and carvedilol was stopped. Will discuss with Dr. Lucas regarding same. Dictated By: Ivan Brice MD /[email or web address] /Document#: [id number]
--- NOTE | 2017-03-07 15:07 | CONS ---
Date/Time of Note Date/Time of Note DATE: 03/07/17 TIME: 15:06 Assessment/Plan Assessment/Plan Additional Assessment/Plan Additional Assessment/Plan Additional Assessment/Plan 1. Melena, bleeding seems to have stopped hematocrit is stable, from acute duodenal ulcer 2. Cirrhosis of liver 3. Diabetes mellitus 4. End-stage kidney disease on dialysis 5. Thrombocytopenia, better Plan Continue PPI Monitor H&H May need beta nicole for gastric varicose vein, if okay with sports activities foul judge we can use Coreg or nadolol. Dr. Brice notes noted case was discussed with family also Patient will be followed at [facility] by the distributor sales consultant upon discharge Consultation Date/Type/Reason Admit Date/Time Feb 23, 2017 at 17:22 Initial Consult Date 02/25/17 Type of Consultation: renal 24 HR Interval Summary Constitutional: improved, no complaints Exam/Review of Systems Vital Signs Vitals Vital Signs Date Time Temp Pulse Resp B/P Pulse Ox O2 Delivery O2 Flow Rate FiO2 03/07/17 13:40 80 97 03/07/17 12:15 18 03/07/17 11:23 98.0 117/64 03/07/17 06:00 Nasal Cannula 2.0 Intake and Output 03/06/17 03/06/17 03/07/17 15:00 23:00 07:00 Intake Total 800 ml Balance 800 ml Exam Constitutional: alert, oriented, well developed Psych: nl mood/affect, no complaints Head: atraumatic, normocephalic Eyes: EOMI, PERRL, nl conjunctiva, nl lids, nl sclera ENMT: nl external ears & nose, nl lips & teeth, nl nasal mucosa & septum Neck: non-tender, supple Respiratory: clear to auscultation, normal air movement Cardiovascular: nl pulses, regular rate and rhythm Gastrointestinal: nl liver, spleen, non-tender, soft Musculoskeletal: nl extremities to inspection, nl gait and stance Extremities: normal pulses 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: WAFER SUBSTRATE TESTER II-XII intact, nl mental status, nl speech, nl strength Skin: nl turgor, No rash or lesions Lymph: nl lymph nodes Results Result Diagram: 03/07/17 0520 03/07/17 0520 Results 24 hrs Laboratory Tests Test 03/06/17 17:26 03/06/17 20:23 03/07/17 05:20 03/07/17 07:32 Bedside Glucose 170 180 95 White Blood Count 5.2 # Red Blood Count 3.09 L Hemoglobin 8.5 L Hematocrit 26.5 L Mean Corpuscular Volume 85.8 Mean Corpuscular Hemoglobin 27.5 L Mean Corpuscular Hemoglobin Concent 32.1 Red Cell Distribution Width 18.1 H Platelet Count 145 Mean Platelet Volume 10.5 H Neutrophils % 54.8 Lymphocytes % 24.9 Monocytes % 10.8 Eosinophils % 8.5 H Basophils % 0.6 Nucleated Red Blood Cells % 0.0 Neutrophils # (Manual) 2.9 Lymphocytes # 1.3 Monocytes # 0.6 Eosinophils # 0.4 Basophils # 0.0 Nucleated Red Blood Cells # 0.0 Sodium Level 133 L Potassium Level 3.6 Chloride Level 97 Carbon Dioxide Level 27 Anion Gap 13 Blood Urea Nitrogen 37 H Creatinine 6.56 H Glucose Level 90 Calcium Level 7.7 L Magnesium Level 2.1 Test 03/07/17 11:22 Bedside Glucose 125 Medications Medications Current Medications Acetaminophen (Tylenol Tab) 500 mg Q6H PRN PO PAIN AND OR ELEVATED TEMP Last administered on 03/06/17 20:19; Admin Dose 500 MG; Start 02/23/17 at 19:00 Epoetin Sean (Epogen (Esrd)) 10,000 units MoWeFr@17 SC Last administered on 17:28; Admin Dose 10,000 UNITS; Start 02/25/17 at 17:00 Furosemide (Lasix) 40 mg DAILY PO Last administered on 03/07/17 08:31; Admin Dose 40 MG; Start 02/24/17 at 09:00 Hydroxyzine HCl (Atarax) 10 mg Q6H PRN PO ITCHING; Start 02/23/17 at 19:00 Lactulose (Enulose) 30 gm HS PO ; Start 02/23/17 at 21:00; Status Future Hold Lactulose (Enulose) 20 gm Q6 PRN PO CONSTIPATION; Start 02/23/17 at 19:00 Megestrol Acetate (Megace Susp) 400 mg BID PO Last administered on 03/06/17 08 :53; Admin Dose 400 MG; Start 02/23/17 at 21:00 Multivitamins Therapeutic (Theragran) 1 tab DAILY PO Last administered on 08:31; Admin Dose 1 TAB; Start 02/24/17 at 09:00 Nifedipine (Procardia Xl) 30 mg DAILY PO Last administered on 03/07/17 08:31; Admin Dose 30 MG; Start 02/24/17 at 09:00 Nitroglycerin (Nitroglycerin (Sl Tab) 0.4 Mg) 1 tab Q5M PRN SL ANGINA; Start at 19:00 Ondansetron HCl (Zofran Inj) 4 mg Q4H PRN IV NAUSEA AND/OR VOMITING; Start at 19:00 Promethazine HCl/ Dextromethorphan (Phenergan-Dm) 10 ml TID PRN PO COUGH; Start 02/23/17 at 19:00 Salmeterol Xinafoate/ Fluticasone (Advair 250/50 Diskus) 1 inh BID INH Last administered on 03/07/17 08:30; Admin Dose 1 INH; Start 02/23/17 at 21:00 Triamcinolone Acetonide (Kenalog 0.1% Oint) 1 applic BID TOP Last administered on 03/06/17 20:29; Admin Dose 1 APPLIC; Start 02/23/17 at 21:00 Diagnostic Test (Pha) (Accu-Chek) 1 ea 02 XX Last administered on 03/06/17 02: 58; Admin Dose 1 EA; Start 02/24/17 at 02:00 Escitalopram Oxalate (Lexapro) 10 mg QHS PO Last administered on 03/06/17 20: 19; Admin Dose 10 MG; Start 02/24/17 at 21:00 Pantoprazole (Protonix Tab) 40 mg BID@,18 PO Last administered on 03/07/17 06:00; Admin Dose 40 MG; Start 02/26/17 at 18:00 Miscellaneous Information 1 ea NOTE XX ; Start 03/02/17 at 15:00 Glucose (Glutose) 15 gm Q15M PRN PO DECREASED GLUCOSE; Start 03/02/17 at 15:00 Glucose (Glutose) 22.5 gm Q15M PRN PO DECREASED GLUCOSE; Start 03/02/17 at 15: 00 Dextrose (D50w Syringe) 25 ml Q15M PRN IV DECREASED GLUCOSE; Start 03/02/17 at 15:00 Dextrose (D50w Syringe) 50 ml Q15M PRN IV DECREASED GLUCOSE; Start 03/02/17 at 15:00 Glucagon (Glucagen) 1 mg Q15M PRN IM DECREASED GLUCOSE; Start 03/02/17 at 15:00 Glucose (Glutose) 15 gm Q15M PRN BUCCAL DECREASED GLUCOSE; Start 03/02/17 at 15 :00 Repaglinide (Prandin) 2 mg TID PO Last administered on 03/06/17 08:53; Admin Dose 2 MG; Start 03/05/17 at 13:00 Clonidine (Catapres) 0.1 mg Q4H PRN PO SBP > 170 or DBP > 110 Last administered on 03/05/17 20:41; Admin Dose 0.1 MG; Start 03/05/17 at 20:00 Trimethoprim/ Sulfamethoxazole (Bactrim (Ds)) 1 tab DAILY PO Last administered on 03/07/17 08:31; Admin Dose 1 TAB; Start 03/06/17 at 09:00 Insulin Glargine (Lantus) 24 unit QHS SC Last administered on 03/06/17 20:26; Admin Dose 24 UNIT; Start 03/06/17 at 21:00 STUART STANLEY MD Mar 07, 2017 15:07
[2017-03-07] MEDS: INSULIN GLARGINE [LANtus] 3 ML PEN SC SCH (21:50)
[2017-03-07] MEDS: ESCITALOPRAM 10 MG TAB PO SCH (21:50)
[2017-03-08] VITALS (13 sets, daily range): BP systolic 118–159; BP diastolic 56–71; PULSE 80–88; RESP 18–20
[2017-03-08] MEDS: ACCU-CHEK XX SCH (02:00)
[2017-03-08] MEDS: PANTOPRAZOLE (EC) 40 MG TAB PO SCH ×2 (05:57→18:00)
[2017-03-08 07:05] LABS: BASOPHILS % 0.5 % (0.0-2.0); EOSINOPHILS # 0.4 10^3/ul (0.0-0.5); EOSINOPHILS % 6.3 % (0.0-7.0); HEMATOCRIT 26.3 % (42.0-52.0); HEMOGLOBIN 8.2 g/dl (14.0-18.0); LYMPHOCYTES # 1.5 10^3/ul (0.8-2.9); LYMPHOCYTES % 26.2 % (15.0-51.0); MEAN CORPUSCULAR HEMOGLOBIN 26.7 pg (29.0-33.0); MEAN CORPUSCULAR HGB CONC 31.2 g/dl (32.0-37.0); MEAN CORPUSCULAR VOLUME 85.7 fl (82.0-101.0); MEAN PLATELET VOLUME 10.6 fl (7.4-10.4); MONOCYTE # 0.6 10^3/ul (0.3-0.9); MONOCYTES % 10.8 % (0.0-11.0); PLATELET COUNT 135 10^3/UL (140-415); RED BLOOD COUNT 3.07 10^6/ul (4.70-6.10); RED CELL DISTRIBUTION WIDTH 18.6 % (11.5-14.5); WHITE BLOOD COUNT 5.6 10^3/ul (4.8-10.8)
[2017-03-08 07:44] LABS: CALCIUM 7.8 mg/dl (8.4-10.2); CREATININE 5.46 mg/dl (0.61-1.24); POTASSIUM 3.5 mmol/L (3.5-5.1)
[2017-03-08] MEDS: INSULIN ASPART [NOVOLOG] 3 ML PEN SC SCH ×4 (07:53→21:00)
[2017-03-08] MEDS: ALBUTEROL/IPRATROPIUM (NEB) 3 ML AMP HHN SCH ×4 (09:00→20:00)
[2017-03-08] MEDS: REPAGLINIDE 2 MG TAB PO SCH ×3 (09:00→21:28)
[2017-03-08] MEDS: TRIAMCINOLONE ACET 0.1% 15 GM OINT TOP SCH ×2 (09:00→21:45)
[2017-03-08] MEDS: MEGESTROL (40 MG/ML) 10ML CUP PO SCH ×2 (09:00→21:00)
[2017-03-08] MEDS: NIFEdipine (XL) 30 MG TAB PO SCH (09:03)
[2017-03-08] MEDS: SALMETEROL/FLUTICASONE 250/50 INHA INH SCH ×2 (09:03→21:32)
[2017-03-08] MEDS: FUROSEMIDE 40 MG TAB PO SCH (09:03)
[2017-03-08] MEDS: MULTIVITAMINS THERAPEUTIC TAB PO SCH (09:03)
[2017-03-08] MEDS: TRIMETHOPRIM/SULFAMETHOX (DS) TAB PO SCH (09:06)
--- NOTE | 2017-03-08 10:35 | CONS ---
Date/Time of Note Date/Time of Note DATE: 03/08/17 TIME: 10:32 Assessment/Plan Assessment/Plan Chief Complaint/Hosp Course 1)GI bleed likely a combination of coags being off due to cirrhosis, renal dsyfunction and low platelets however pt has known ascites and with GI bleed he is at increased risk for SBP and prophylaxis would be recommended will start po cipro for this 02/27 - Hgb is stable but a.m. labs are pending 03/02 - no further bleeding 2) thrombocytopenia, worsened by vanco followed by zyvox this will likely start to recover in the next few days continue off zyvox 02/27 - pt got plt tx late 02/25/ early 02/26 await a.m. labs, if zyvox is the cause then platelets should recover over the weekend 03/02 - platelets have recovered, likely etiology was the zyvox ( thrombocytopenia is more likely when vanco preceeds zyvox) 3)cirrhosis with ascites and GI bleeding SBP prophylaxis is recommended will start cipro 500mg QD for 7 days then can change to bactrim or cipro for further prophylaxis 02/27 - continue with po cipro for 7 days then continue some form of prophylaxis afterwards 03/02 - after pt is done with cipro for 7 days (on 03/04) then start cipro 250 mg QD for prophylaxis 03/05 - d/c cipro and start bactrim for prophylaxis 03/08 - continue with bactrim prophylaxis but can reduce to SS QD 4) ?UTI pt has no fever or elevated WBC unclear if he has an active infection but because of GI bleed will treat for SBP prophylaxis with cipro instead of ceftriaxone 03/02 - doubt pt has uti, will repeat u/a and urine cx, everytime it is different organisms, normal WBC and no fevers 03/05 start bactrim and see if it clears the e.coli in urine and repeat u/a and urine cx pt had two different e.coli in his urine cx, one was sensitive to bactrim the other was not 03/08 - still has dysuria despite bactrim, e.coli in urine is resistant to bactrim continue bactrim for prophylaxis but reduce the dose give gent with dialysis for next 3 cycles of dialysis, that should get ride of e.coli in the urine 5) hx of Hep c and successfully treated 6) DM 7) hx of gout Problems: Consultation Date/Type/Reason Admit Date/Time Feb 23, 2017 at 17:22 Initial Consult Date 02/25/17 Type of Consultation: ID [id number] HR Interval Summary Free Text/Dictation overall doing well no N, V, D, SOB still has some dysuria, no change with bactrim Exam/Review of Systems Vital Signs Vitals Vital Signs Date Time Temp Pulse Resp B/P Pulse Ox O2 Delivery O2 Flow Rate FiO2 03/08/17 08:03 88 03/08/17 07:57 98.5 19 151/63 98 03/07/17 06:00 Nasal Cannula 2.0 Intake and Output 03/07/17 03/07/17 03/08/17 15:00 23:00 07:00 Intake Total 750 ml 500 ml 450 ml Output Total 3500 ml 150 ml 40 ml Balance -2750 ml 350 ml 410 ml Exam Constitutional: alert, oriented ENMT: mucosa pink and moist Respiratory: clear to auscultation Cardiovascular: regular rate and rhythm Gastrointestinal: non-tender, soft Results Result Diagram: 03/08/17 0538 03/08/17 0538 Results 24 hrs Laboratory Tests Test 03/07/17 11:22 03/07/17 17:19 03/07/17 21:11 03/08/17 05:38 Bedside Glucose 125 193 155 White Blood Count 5.6 Red Blood Count 3.07 L Hemoglobin 8.2 L Hematocrit 26.3 L Mean Corpuscular Volume 85.7 Mean Corpuscular Hemoglobin 26.7 L Mean Corpuscular Hemoglobin Concent 31.2 L Red Cell Distribution Width 18.6 H Platelet Count 135 L Mean Platelet Volume 10.6 H Neutrophils % 56.0 Lymphocytes % 26.2 Monocytes % 10.8 Eosinophils % 6.3 Basophils % 0.5 Nucleated Red Blood Cells % 0.0 Neutrophils # (Manual) 3.1 Lymphocytes # 1.5 Monocytes # 0.6 Eosinophils # 0.4 Basophils # 0.0 Nucleated Red Blood Cells # 0.0 Sodium Level 137 Potassium Level 3.5 Chloride Level 97 Carbon Dioxide Level 28 Anion Gap 16 Blood Urea Nitrogen 27 H Creatinine 5.46 H Glucose Level 86 Calcium Level 7.8 L Test 03/08/17 07:52 Bedside Glucose 88 Medications Medications Current Medications Acetaminophen (Tylenol Tab) 500 mg Q6H PRN PO PAIN AND OR ELEVATED TEMP Last administered on 03/06/17 20:19; Admin Dose 500 MG; Start 02/23/17 at 19:00 Epoetin Sean (Epogen (Esrd)) 10,000 units MoWeFr@17 SC Last administered on 17:28; Admin Dose 10,000 UNITS; Start 02/25/17 at 17:00 Furosemide (Lasix) 40 mg DAILY PO Last administered on 03/08/17 09:03; Admin Dose 40 MG; Start 02/24/17 at 09:00 Hydroxyzine HCl (Atarax) 10 mg Q6H PRN PO ITCHING; Start 02/23/17 at 19:00 Lactulose (Enulose) 30 gm HS PO ; Start 02/23/17 at 21:00; Status Future Hold Lactulose (Enulose) 20 gm Q6 PRN PO CONSTIPATION; Start 02/23/17 at 19:00 Megestrol Acetate (Megace Susp) 400 mg BID PO Last administered on 03/06/17 08 :53; Admin Dose 400 MG; Start 02/23/17 at 21:00 Multivitamins Therapeutic (Theragran) 1 tab DAILY PO Last administered on 09:03; Admin Dose 1 TAB; Start 02/24/17 at 09:00 Nifedipine (Procardia Xl) 30 mg DAILY PO Last administered on 03/08/17 09:03; Admin Dose 30 MG; Start 02/24/17 at 09:00 Nitroglycerin (Nitroglycerin (Sl Tab) 0.4 Mg) 1 tab Q5M PRN SL ANGINA; Start at 19:00 Ondansetron HCl (Zofran Inj) 4 mg Q4H PRN IV NAUSEA AND/OR VOMITING; Start at 19:00 Promethazine HCl/ Dextromethorphan (Phenergan-Dm) 10 ml TID PRN PO COUGH; Start 02/23/17 at 19:00 Salmeterol Xinafoate/ Fluticasone (Advair 250/50 Diskus) 1 inh BID INH Last administered on 03/08/17 09:03; Admin Dose 1 INH; Start 02/23/17 at 21:00 Triamcinolone Acetonide (Kenalog 0.1% Oint) 1 applic BID TOP Last administered on 03/06/17 20:29; Admin Dose 1 APPLIC; Start 02/23/17 at 21:00 Diagnostic Test (Pha) (Accu-Chek) 1 ea 02 XX Last administered on 03/06/17 02: 58; Admin Dose 1 EA; Start 02/24/17 at 02:00 Escitalopram Oxalate (Lexapro) 10 mg QHS PO Last administered on 03/07/17 21: 50; Admin Dose 10 MG; Start 02/24/17 at 21:00 Pantoprazole (Protonix Tab) 40 mg BID@,18 PO Last administered on 03/08/17 05:57; Admin Dose 40 MG; Start 02/26/17 at 18:00 Miscellaneous Information 1 ea NOTE XX ; Start 03/02/17 at 15:00 Glucose (Glutose) 15 gm Q15M PRN PO DECREASED GLUCOSE; Start 03/02/17 at 15:00 Glucose (Glutose) 22.5 gm Q15M PRN PO DECREASED GLUCOSE; Start 03/02/17 at 15: 00 Dextrose (D50w Syringe) 25 ml Q15M PRN IV DECREASED GLUCOSE; Start 03/02/17 at 15:00 Dextrose (D50w Syringe) 50 ml Q15M PRN IV DECREASED GLUCOSE; Start 03/02/17 at 15:00 Glucagon (Glucagen) 1 mg Q15M PRN IM DECREASED GLUCOSE; Start 03/02/17 at 15:00 Glucose (Glutose) 15 gm Q15M PRN BUCCAL DECREASED GLUCOSE; Start 03/02/17 at 15 :00 Repaglinide (Prandin) 2 mg TID PO Last administered on 03/06/17 08:53; Admin Dose 2 MG; Start 03/05/17 at 13:00 Clonidine (Catapres) 0.1 mg Q4H PRN PO SBP > 170 or DBP > 110 Last administered on 03/05/17 20:41; Admin Dose 0.1 MG; Start 03/05/17 at 20:00 Trimethoprim/ Sulfamethoxazole (Bactrim (Ds)) 1 tab DAILY PO Last administered on 03/08/17 09:06; Admin Dose 1 TAB; Start 03/06/17 at 09:00 Insulin Glargine (Lantus) 24 unit QHS SC Last administered on 8/26/17at 21:50; Admin Dose 24 UNIT; Start 03/06/17 at 21:00 DANYEL HART MD Mar 08, 2017 10:35
--- NOTE | 2017-03-08 10:39 | CONS ---
Date/Time of Note Date/Time of Note DATE: 03/08/17 TIME: 10:37 Assessment/Plan Assessment/Plan Additional Assessment/Plan 1. CKD, with next HD planned for thursday 2. Hep C treated. 3. Anemia, stable 4. Anticipate dc soon 5. No sxs suggesting rec gi bleeding Consultation Date/Type/Reason Admit Date/Time Feb 23, 2017 at 17:22 Initial Consult Date 02/25/17 Type of Consultation: ID Detailed Summary Respiratory: No shortness of breath Cardiovascular: No chest pain Gastrointestinal: no complaints Genitourinary: no complaints Exam/Review of Systems Vital Signs Vitals Vital Signs Date Time Temp Pulse Resp B/P Pulse Ox O2 Delivery O2 Flow Rate FiO2 03/08/17 08:03 88 03/08/17 07:57 98.5 19 151/63 98 03/07/17 06:00 Nasal Cannula 2.0 Intake and Output 03/07/17 03/07/17 03/08/17 15:00 23:00 07:00 Intake Total 750 ml 500 ml 450 ml Output Total 3500 ml 150 ml 40 ml Balance -2750 ml 350 ml 410 ml Exam Neck: jvd Respiratory: clear to auscultation Cardiovascular: regular rate and rhythm Gastrointestinal: soft Extremities: No edema Results Result Diagram: 03/08/17 0538 03/08/17 0538 Results 24 hrs Laboratory Tests Test 03/07/17 11:22 03/07/17 17:19 03/07/17 21:11 03/08/17 05:38 Bedside Glucose 125 193 155 White Blood Count 5.6 Red Blood Count 3.07 L Hemoglobin 8.2 L Hematocrit 26.3 L Mean Corpuscular Volume 85.7 Mean Corpuscular Hemoglobin 26.7 L Mean Corpuscular Hemoglobin Concent 31.2 L Red Cell Distribution Width 18.6 H Platelet Count 135 L Mean Platelet Volume 10.6 H Neutrophils % 56.0 Lymphocytes % 26.2 Monocytes % 10.8 Eosinophils % 6.3 Basophils % 0.5 Nucleated Red Blood Cells % 0.0 Neutrophils # (Manual) 3.1 Lymphocytes # 1.5 Monocytes # 0.6 Eosinophils # 0.4 Basophils # 0.0 Nucleated Red Blood Cells # 0.0 Sodium Level 137 Potassium Level 3.5 Chloride Level 97 Carbon Dioxide Level 28 Anion Gap 16 Blood Urea Nitrogen 27 H Creatinine 5.46 H Glucose Level 86 Calcium Level 7.8 L Test 03/08/17 07:52 Bedside Glucose 88 Medications Medications Current Medications Acetaminophen (Tylenol Tab) 500 mg Q6H PRN PO PAIN AND OR ELEVATED TEMP Last administered on 03/06/17 20:19; Admin Dose 500 MG; Start 02/23/17 at 19:00 Epoetin Sean (Epogen (Esrd)) 10,000 units MoWeFr@17 SC Last administered on 17:28; Admin Dose 10,000 UNITS; Start 02/25/17 at 17:00 Furosemide (Lasix) 40 mg DAILY PO Last administered on 03/08/17 09:03; Admin Dose 40 MG; Start 02/24/17 at 09:00 Hydroxyzine HCl (Atarax) 10 mg Q6H PRN PO ITCHING; Start 02/23/17 at 19:00 Lactulose (Enulose) 30 gm HS PO ; Start 02/23/17 at 21:00; Status Future Hold Lactulose (Enulose) 20 gm Q6 PRN PO CONSTIPATION; Start 02/23/17 at 19:00 Megestrol Acetate (Megace Susp) 400 mg BID PO Last administered on 03/06/17 08 :53; Admin Dose 400 MG; Start 02/23/17 at 21:00 Multivitamins Therapeutic (Theragran) 1 tab DAILY PO Last administered on 09:03; Admin Dose 1 TAB; Start 02/24/17 at 09:00 Nifedipine (Procardia Xl) 30 mg DAILY PO Last administered on 03/08/17 09:03; Admin Dose 30 MG; Start 02/24/17 at 09:00 Nitroglycerin (Nitroglycerin (Sl Tab) 0.4 Mg) 1 tab Q5M PRN SL ANGINA; Start at 19:00 Ondansetron HCl (Zofran Inj) 4 mg Q4H PRN IV NAUSEA AND/OR VOMITING; Start at 19:00 Promethazine HCl/ Dextromethorphan (Phenergan-Dm) 10 ml TID PRN PO COUGH; Start 02/23/17 at 19:00 Salmeterol Xinafoate/ Fluticasone (Advair 250/50 Diskus) 1 inh BID INH Last administered on 03/08/17 09:03; Admin Dose 1 INH; Start 02/23/17 at 21:00 Triamcinolone Acetonide (Kenalog 0.1% Oint) 1 applic BID TOP Last administered on 03/06/17 20:29; Admin Dose 1 APPLIC; Start 02/23/17 at 21:00 Diagnostic Test (Pha) (Accu-Chek) 1 ea 02 XX Last administered on 03/06/17 02: 58; Admin Dose 1 EA; Start 02/24/17 at 02:00 Escitalopram Oxalate (Lexapro) 10 mg QHS PO Last administered on 03/07/17 21: 50; Admin Dose 10 MG; Start 02/24/17 at 21:00 Pantoprazole (Protonix Tab) 40 mg BID@,18 PO Last administered on 03/08/17 05:57; Admin Dose 40 MG; Start 02/26/17 at 18:00 Miscellaneous Information 1 ea NOTE XX ; Start 03/02/17 at 15:00 Glucose (Glutose) 15 gm Q15M PRN PO DECREASED GLUCOSE; Start 03/02/17 at 15:00 Glucose (Glutose) 22.5 gm Q15M PRN PO DECREASED GLUCOSE; Start 03/02/17 at 15: 00 Dextrose (D50w Syringe) 25 ml Q15M PRN IV DECREASED GLUCOSE; Start 03/02/17 at 15:00 Dextrose (D50w Syringe) 50 ml Q15M PRN IV DECREASED GLUCOSE; Start 03/02/17 at 15:00 Glucagon (Glucagen) 1 mg Q15M PRN IM DECREASED GLUCOSE; Start 03/02/17 at 15:00 Glucose (Glutose) 15 gm Q15M PRN BUCCAL DECREASED GLUCOSE; Start 03/02/17 at 15 :00 Repaglinide (Prandin) 2 mg TID PO Last administered on 03/06/17 08:53; Admin Dose 2 MG; Start 03/05/17 at 13:00 Clonidine (Catapres) 0.1 mg Q4H PRN PO SBP > 170 or DBP > 110 Last administered on 03/05/17 20:41; Admin Dose 0.1 MG; Start 03/05/17 at 20:00 Trimethoprim/ Sulfamethoxazole (Bactrim (Ds)) 1 tab DAILY PO Last administered on 03/08/17 09:06; Admin Dose 1 TAB; Start 03/06/17 at 09:00 Insulin Glargine (Lantus) 24 unit QHS SC Last administered on 03/07/17 21:50; Admin Dose 24 UNIT; Start 03/06/17 at 21:00 NICOLE WANG MD Mar 08, 2017 10:39
[2017-03-08] MEDS: ESCITALOPRAM 10 MG TAB PO SCH (21:30)
[2017-03-08] MEDS: INSULIN GLARGINE [LANtus] 3 ML PEN SC SCH (21:35)
[2017-03-09] VITALS (12 sets, daily range): BP systolic 138–155; BP diastolic 57–67; PULSE 80–90; RESP 16–20
[2017-03-09] MEDS: ACCU-CHEK XX SCH (02:00)
[2017-03-09] MEDS: PANTOPRAZOLE (EC) 40 MG TAB PO SCH ×2 (05:54→17:24)
[2017-03-09 07:05] LABS: BASOPHILS % 0.5 % (0.0-2.0); EOSINOPHILS # 0.3 10^3/ul (0.0-0.5); EOSINOPHILS % 5.5 % (0.0-7.0); HEMATOCRIT 24.9 % (42.0-52.0); HEMOGLOBIN 7.9 g/dl (14.0-18.0); LYMPHOCYTES # 1.8 10^3/ul (0.8-2.9); LYMPHOCYTES % 31.2 % (15.0-51.0); MEAN CORPUSCULAR HEMOGLOBIN 26.8 pg (29.0-33.0); MEAN CORPUSCULAR HGB CONC 31.7 g/dl (32.0-37.0); MEAN CORPUSCULAR VOLUME 84.4 fl (82.0-101.0); MEAN PLATELET VOLUME 10.1 fl (7.4-10.4); MONOCYTE # 0.6 10^3/ul (0.3-0.9); MONOCYTES % 10.6 % (0.0-11.0); PLATELET COUNT 130 10^3/UL (140-415); RED BLOOD COUNT 2.95 10^6/ul (4.70-6.10); RED CELL DISTRIBUTION WIDTH 18.6 % (11.5-14.5); WHITE BLOOD COUNT 5.6 10^3/ul (4.8-10.8)
[2017-03-09 07:33] LABS: CALCIUM 7.9 mg/dl (8.4-10.2); CREATININE 6.61 mg/dl (0.61-1.24); POTASSIUM 3.2 mmol/L (3.5-5.1)
[2017-03-09] MEDS: INSULIN ASPART [NOVOLOG] 3 ML PEN SC SCH ×4 (07:55→21:21)
[2017-03-09] MEDS: TRIAMCINOLONE ACET 0.1% 15 GM OINT TOP SCH ×2 (09:00→21:00)
[2017-03-09] MEDS: SALMETEROL/FLUTICASONE 250/50 INHA INH SCH ×2 (09:00→21:15)
[2017-03-09] MEDS: REPAGLINIDE 2 MG TAB PO SCH ×4 (09:00→21:00)
[2017-03-09] MEDS: MEGESTROL (40 MG/ML) 10ML CUP PO SCH ×3 (09:00→21:00)
[2017-03-09] MEDS ORDERED: POTASSIUM CHLORIDE (SR) 10 MEQ TAB PO ONE (10:00)
[2017-03-09] MEDS: MULTIVITAMINS THERAPEUTIC TAB PO SCH (10:23)
[2017-03-09] MEDS: NIFEdipine (XL) 30 MG TAB PO SCH (10:23)
[2017-03-09] MEDS: TRIMETHOPRIM/SULFAMETHOX (SS) TAB PO SCH (10:23)
[2017-03-09] MEDS: FUROSEMIDE 40 MG TAB PO SCH (10:23)
--- NOTE | 2017-03-09 14:07 | CONS ---
Date/Time of Note Date/Time of Note DATE: 03/09/17 TIME: 14:03 Assessment/Plan Assessment/Plan Chief Complaint/Hosp Course 1. End-stage renal disease now requiring maintenance hemodialysis Thursday. His hemoglobin and hematocrit are drifting down but stable today. He is due for hemodialysis tomorrow , which is ordered. 2. Cirrhosis of the liver, he has a history of hepatitis C which was treated. He does have cirrhosis and has had hepatic encephalopathy which is now treated. His last ammonia level was normal. He is on lactulose. 3. Fluid overloaded now much improved 4. Anemia , he had some GI bleeding which has stopped. His H&H is higher today . 5. Diabetes mellitus 6. Morbid obesity 7. Sleep apnea 8. Urinary tract infection , ID is now recommending gentamicin for 3 doses after dialysis. 9. Congestive heart failure , improved 10. Thrombocytopenia, his platelet count is higher. Probably due to antibiotics that he was on. Problems: Consultation Date/Type/Reason Admit Date/Time Feb 23, 2017 at 17:22 Initial Consult Date 02/25/17 Type of Consultation: renal 24 HR Interval Summary Free Text/Dictation Patient is lying in bed as usual. He has no new complaints. He said that he was up walking earlier today without any dizziness. Constitutional: no complaints Exam/Review of Systems Vital Signs Vitals Vital Signs Date Time Temp Pulse Resp B/P Pulse Ox O2 Delivery O2 Flow Rate FiO2 03/09/17 12:05 80 03/09/17 11:27 97.3 16 143/65 98 03/07/17 06:00 Nasal Cannula 2.0 Intake and Output 03/08/17 03/08/17 03/09/17 14:59 22:59 06:59 Intake Total 300 ml Output Total 50 ml Balance 250 ml Exam Constitutional: alert, frail, obese, oriented Respiratory: clear to auscultation Cardiovascular: edema, regular rate and rhythm Gastrointestinal: soft Results Result Diagram: 03/09/17 0602 03/09/17 0602 Results 24 hrs Laboratory Tests Test 03/08/17 17:17 03/08/17 21:23 03/09/17 06:02 03/09/17 08:13 Bedside Glucose 127 178 68 L White Blood Count 5.6 Red Blood Count 2.95 L Hemoglobin 7.9 L Hematocrit 24.9 L Mean Corpuscular Volume 84.4 Mean Corpuscular Hemoglobin 26.8 L Mean Corpuscular Hemoglobin Concent 31.7 L Red Cell Distribution Width 18.6 H Platelet Count 130 L Mean Platelet Volume 10.1 Neutrophils % 52.0 Lymphocytes % 31.2 Monocytes % 10.6 Eosinophils % 5.5 Basophils % 0.5 Nucleated Red Blood Cells % 0.0 Neutrophils # (Manual) 2.9 Lymphocytes # 1.8 Monocytes # 0.6 Eosinophils # 0.3 Basophils # 0.0 Nucleated Red Blood Cells # 0.0 Sodium Level 138 Potassium Level 3.2 L Chloride Level 99 Carbon Dioxide Level 28 Anion Gap 14 Blood Urea Nitrogen 35 H Creatinine 6.61 H Glucose Level 55 #L Calcium Level 7.9 L Test 03/09/17 12:40 Bedside Glucose 154 Medications Medications Current Medications Acetaminophen (Tylenol Tab) 500 mg Q6H PRN PO PAIN AND OR ELEVATED TEMP Last administered on 03/06/17 20:19; Admin Dose 500 MG; Start 02/23/17 at 19:00 Epoetin Sean (Epogen (Esrd)) 10,000 units MoWeFr@17 SC Last administered on 17:28; Admin Dose 10,000 UNITS; Start 02/25/17 at 17:00 Furosemide (Lasix) 40 mg DAILY PO Last administered on 03/09/17 10:23; Admin Dose 40 MG; Start 02/24/17 at 09:00 Hydroxyzine HCl (Atarax) 10 mg Q6H PRN PO ITCHING; Start 02/23/17 at 19:00 Lactulose (Enulose) 30 gm HS PO ; Start 02/23/17 at 21:00; Status Future Hold Lactulose (Enulose) 20 gm Q6 PRN PO CONSTIPATION; Start 02/23/17 at 19:00 Megestrol Acetate (Megace Susp) 400 mg BID PO Last administered on 03/06/17 08 :53; Admin Dose 400 MG; Start 02/23/17 at 21:00 Multivitamins Therapeutic (Theragran) 1 tab DAILY PO Last administered on 10:23; Admin Dose 1 TAB; Start 02/24/17 at 09:00 Nifedipine (Procardia Xl) 30 mg DAILY PO Last administered on 03/09/17 10:23; Admin Dose 30 MG; Start 02/24/17 at 09:00 Nitroglycerin (Nitroglycerin (Sl Tab) 0.4 Mg) 1 tab Q5M PRN SL ANGINA; Start at 19:00 Ondansetron HCl (Zofran Inj) 4 mg Q4H PRN IV NAUSEA AND/OR VOMITING; Start at 19:00 Promethazine HCl/ Dextromethorphan (Phenergan-Dm) 10 ml TID PRN PO COUGH; Start 02/23/17 at 19:00 Salmeterol Xinafoate/ Fluticasone (Advair 250/50 Diskus) 1 inh BID INH Last administered on 03/09/17 09:00; Admin Dose 1 INH; Start 02/23/17 at 21:00 Triamcinolone Acetonide (Kenalog 0.1% Oint) 1 applic BID TOP Last administered on 03/08/17 21:45; Admin Dose 1 APPLIC; Start 02/23/17 at 21:00 Diagnostic Test (Pha) (Accu-Chek) 1 ea 02 XX Last administered on 03/06/17 02: 58; Admin Dose 1 EA; Start 02/24/17 at 02:00 Escitalopram Oxalate (Lexapro) 10 mg QHS PO Last administered on 03/08/17 21: 30; Admin Dose 10 MG; Start 02/24/17 at 21:00 Pantoprazole (Protonix Tab) 40 mg BID@06,18 PO Last administered on 03/09/17 05:54; Admin Dose 40 MG; Start 02/26/17 at 18:00 Miscellaneous Information 1 ea NOTE XX ; Start 03/02/17 at 15:00 Glucose (Glutose) 15 gm Q15M PRN PO DECREASED GLUCOSE; Start 03/02/17 at 15:00 Glucose (Glutose) 22.5 gm Q15M PRN PO DECREASED GLUCOSE; Start 03/02/17 at 15: 00 Dextrose (D50w Syringe) 25 ml Q15M PRN IV DECREASED GLUCOSE; Start 03/02/17 at 15:00 Dextrose (D50w Syringe) 50 ml Q15M PRN IV DECREASED GLUCOSE; Start 03/02/17 at 15:00 Glucagon (Glucagen) 1 mg Q15M PRN IM DECREASED GLUCOSE; Start 03/02/17 at 15:00 Glucose (Glutose) 15 gm Q15M PRN BUCCAL DECREASED GLUCOSE; Start 03/02/17 at 15 :00 Repaglinide (Prandin) 2 mg TID PO Last administered on 03/08/17 21:28; Admin Dose 2 MG; Start 03/05/17 at 13:00 Clonidine (Catapres) 0.1 mg Q4H PRN PO SBP > 170 or DBP > 110 Last administered on 03/05/17 20:41; Admin Dose 0.1 MG; Start 03/05/17 at 20:00 Trimethoprim/ Sulfamethoxazole (Bactrim (Ss)) 1 tab DAILY PO Last administered on 03/09/17 10:23; Admin Dose 1 TAB; Start 03/09/17 at 09:00 Insulin Glargine (Lantus) 20 unit QHS SC ; Start 03/09/17 at 21:00 ANA MELENDEZ MD Mar 09, 2017 14:07
[2017-03-09] MEDS ORDERED: SOD CHLORIDE 0.9% IVPB SCH (14:30)
[2017-03-09] MEDS ORDERED: GENTAMICIN IV PER PHARMACY XX SCH (14:30)
[2017-03-09] MEDS ORDERED: GENTAMICIN IVPB SCH (14:30)
--- NOTE | 2017-03-09 16:19 | PN ---
DATE: 03/09/2017 SUBJECTIVE: The patient feels very weak and dizzy today. PHYSICAL EXAMINATION: VITAL SIGNS: Patient is afebrile. Blood pressure 145/61, O2 sat 100 percent. CHEST: Clinically clear. HEART: S1, S2. No definite gallops. EXTREMITIES: No edema. LABORATORY: Blood glucose level is 55 this morning. Potassium 3.2, hematocrit 24.9. IMPRESSION: 1. Generalized weakness secondary to severe hypoglycemia and hypokalemia. 2. Acute on chronic renal failure on hemodialysis. 3. Anemia of thrombocytopenia, improved. 4. Cirrhosis with portal hypertension secondary to hepatitis C trait, treated. 5. Duodenal ulcer with gastrointestinal (GI) bleed. 6. Diabetes mellitus, type 2, well controlled. 7. Morbid obesity. 8. Obstructive sleep apnea. 9. Underlying major depression, improving on Lexapro. The patient has recently been started on Bactrim. Would need to treat the hypokalemia. Would give 30 mEq of KCl p.o. today. Recheck the labs in a.m., and if the patient is stable over the next 24 hours, discharge the patient after hemodialysis tomorrow after discussion with Dr. Castro and Dr. Arteaga. Arrangements for hemodialysis, physical therapy, [facility]. Dictated By: Ivan Brice MD /[email or web address] /Document#: [id number]
[2017-03-09] MEDS: EPOETIN 10000 UNITS/1 ML INJ (ESRD) SC SCH (17:26)
[2017-03-09] MEDS: ALBUTEROL/IPRATROPIUM (NEB) 3 ML AMP HHN SCH (20:28)
[2017-03-09] MEDS: ESCITALOPRAM 10 MG TAB PO SCH (21:14)
[2017-03-09] MEDS: INSULIN GLARGINE [LANtus] 3 ML PEN SC SCH (21:18)
[2017-03-10] VITALS (16 sets, daily range): BP systolic 120–188; BP diastolic 60–84; PULSE 75–95; RESP 16–20
[2017-03-10] MEDS: ACCU-CHEK XX SCH (02:00)
[2017-03-10] MEDS: PANTOPRAZOLE (EC) 40 MG TAB PO SCH ×2 (06:36→17:57)
--- NOTE | 2017-03-10 06:40 | CONS ---
Date/Time of Note Date/Time of Note DATE: 03/10/17 TIME: 06:38 Assessment/Plan Assessment/Plan Chief Complaint/Hosp Course 1)GI bleed likely a combination of coags being off due to cirrhosis, renal dsyfunction and low platelets however pt has known ascites and with GI bleed he is at increased risk for SBP and prophylaxis would be recommended will start po cipro for this 02/27 - Hgb is stable but a.m. labs are pending 03/02 - no further bleeding 2) thrombocytopenia, worsened by vanco followed by zyvox this will likely start to recover in the next few days continue off zyvox 02/27 - pt got plt tx late 02/25/ early 02/26 await a.m. labs, if zyvox is the cause then platelets should recover over the weekend 03/02 - platelets have recovered, likely etiology was the zyvox ( thrombocytopenia is more likely when vanco preceeds zyvox) 3)cirrhosis with ascites and GI bleeding SBP prophylaxis is recommended will start cipro 500mg QD for 7 days then can change to bactrim or cipro for further prophylaxis 02/27 - continue with po cipro for 7 days then continue some form of prophylaxis afterwards 03/02 - after pt is done with cipro for 7 days (on 03/04) then start cipro 250 mg QD for prophylaxis 03/05 - d/c cipro and start bactrim for prophylaxis 03/08 - continue with bactrim prophylaxis but can reduce to SS QD 4) ?UTI pt has no fever or elevated WBC unclear if he has an active infection but because of GI bleed will treat for SBP prophylaxis with cipro instead of ceftriaxone 03/02 - doubt pt has uti, will repeat u/a and urine cx, everytime it is different organisms, normal WBC and no fevers 03/05 start bactrim and see if it clears the e.coli in urine and repeat u/a and urine cx pt had two different e.coli in his urine cx, one was sensitive to bactrim the other was not 03/08 - still has dysuria despite bactrim, e.coli in urine is resistant to bactrim continue bactrim for prophylaxis but reduce the dose give gent with dialysis for next 3 cycles of dialysis, that should get ride of e.coli in the urine 03/10 - spoke to renal and they will give gent 2mg/kg with dialysis for the next 3 sesssions no need to treat the VRE at this time, would re-check u/a and urine cx one week post e.coli treatment if pt is asymptomatic at that time even if bacteria grow out then unlikely he would need treatment for it 5) hx of Hep c and successfully treated 6) DM 7) hx of gout Problems: Consultation Date/Type/Reason Admit Date/Time Feb 23, 2017 at 17:22 Initial Consult Date 02/25/17 Type of Consultation: ID Exam/Review of Systems Vital Signs Vitals Vital Signs Date Time Temp Pulse Resp B/P Pulse Ox O2 Delivery O2 Flow Rate FiO2 03/10/17 04:34 98.6 93 20 157/65 94 03/07/17 06:00 Nasal Cannula 2.0 Intake and Output 03/09/17 03/09/17 03/10/17 14:59 22:59 06:59 Intake Total 600 ml 400 ml Output Total 190 ml 200 ml Balance 410 ml 200 ml Results Result Diagram: 03/09/17 0602 03/09/17 0602 Results 24 hrs Laboratory Tests Test 03/09/17 08:13 03/09/17 12:40 03/09/17 17:21 03/09/17 21:12 Bedside Glucose 68 L 154 168 196 Test 03/10/17 02:00 Bedside Glucose 219 Medications Medications Current Medications Acetaminophen (Tylenol Tab) 500 mg Q6H PRN PO PAIN AND OR ELEVATED TEMP Last administered on 03/06/17 20:19; Admin Dose 500 MG; Start 02/23/17 at 19:00 Epoetin Sean (Epogen (Esrd)) 10,000 units MoWeFr@17 SC Last administered on 17:26; Admin Dose 10,000 UNITS; Start 02/25/17 at 17:00 Furosemide (Lasix) 40 mg DAILY PO Last administered on 03/09/17 10:23; Admin Dose 40 MG; Start 02/24/17 at 09:00 Hydroxyzine HCl (Atarax) 10 mg Q6H PRN PO ITCHING; Start 02/23/17 at 19:00 Lactulose (Enulose) 30 gm HS PO ; Start 02/23/17 at 21:00; Status Future Hold Lactulose (Enulose) 20 gm Q6 PRN PO CONSTIPATION; Start 02/23/17 at 19:00 Megestrol Acetate (Megace Susp) 400 mg BID PO Last administered on 03/06/17 08 :53; Admin Dose 400 MG; Start 02/23/17 at 21:00 Multivitamins Therapeutic (Theragran) 1 tab DAILY PO Last administered on 10:23; Admin Dose 1 TAB; Start 02/24/17 at 09:00 Nifedipine (Procardia Xl) 30 mg DAILY PO Last administered on 03/09/17 10:23; Admin Dose 30 MG; Start 02/24/17 at 09:00 Nitroglycerin (Nitroglycerin (Sl Tab) 0.4 Mg) 1 tab Q5M PRN SL ANGINA; Start at 19:00 Ondansetron HCl (Zofran Inj) 4 mg Q4H PRN IV NAUSEA AND/OR VOMITING; Start at 19:00 Promethazine HCl/ Dextromethorphan (Phenergan-Dm) 10 ml TID PRN PO COUGH; Start 02/23/17 at 19:00 Salmeterol Xinafoate/ Fluticasone (Advair 250/50 Diskus) 1 inh BID INH Last administered on 03/09/17 21:15; Admin Dose 1 INH; Start 02/23/17 at 21:00 Triamcinolone Acetonide (Kenalog 0.1% Oint) 1 applic BID TOP Last administered on 03/08/17 21:45; Admin Dose 1 APPLIC; Start 02/23/17 at 21:00 Diagnostic Test (Pha) (Accu-Chek) 1 ea 02 XX Last administered on 03/06/17 02: 58; Admin Dose 1 EA; Start 02/24/17 at 02:00 Escitalopram Oxalate (Lexapro) 10 mg QHS PO Last administered on 03/09/17 21: 14; Admin Dose 10 MG; Start 02/24/17 at 21:00 Pantoprazole (Protonix Tab) 40 mg BID@06,18 PO Last administered on 03/10/17 06:36; Admin Dose 40 MG; Start 02/26/17 at 18:00 Miscellaneous Information 1 ea NOTE XX ; Start 03/02/17 at 15:00 Glucose (Glutose) 15 gm Q15M PRN PO DECREASED GLUCOSE; Start 03/02/17 at 15:00 Glucose (Glutose) 22.5 gm Q15M PRN PO DECREASED GLUCOSE; Start 03/02/17 at 15: 00 Dextrose (D50w Syringe) 25 ml Q15M PRN IV DECREASED GLUCOSE; Start 03/02/17 at 15:00 Dextrose (D50w Syringe) 50 ml Q15M PRN IV DECREASED GLUCOSE; Start 03/02/17 at 15:00 Glucagon (Glucagen) 1 mg Q15M PRN IM DECREASED GLUCOSE; Start 03/02/17 at 15:00 Glucose (Glutose) 15 gm Q15M PRN BUCCAL DECREASED GLUCOSE; Start 03/02/17 at 15 :00 Repaglinide (Prandin) 2 mg TID PO Last administered on 03/08/17 21:28; Admin Dose 2 MG; Start 03/05/17 at 13:00 Clonidine (Catapres) 0.1 mg Q4H PRN PO SBP > 170 or DBP > 110 Last administered on 03/05/17 20:41; Admin Dose 0.1 MG; Start 03/05/17 at 20:00 Trimethoprim/ Sulfamethoxazole (Bactrim (Ss)) 1 tab DAILY PO Last administered on 03/09/17 10:23; Admin Dose 1 TAB; Start 03/09/17 at 09:00 Insulin Glargine (Lantus) 20 unit QHS SC Last administered on 03/09/17 21:18; Admin Dose 20 UNIT; Start 03/09/17 at 21:00 Gentamicin Sulfate (Gentamicin Iv Per Pharmacy) PER PHARMACY DOSING X 3 DIALY... NOTE XX ; Start 03/09/17 at 14:30; Stop 03/14/17 at 20:00 DANYEL HART MD Mar 10, 2017 06:40
[2017-03-10 06:55] LABS: BASOPHILS % 0.6 % (0.0-2.0); EOSINOPHILS # 0.4 10^3/ul (0.0-0.5); EOSINOPHILS % 6.7 % (0.0-7.0); HEMATOCRIT 25.6 % (42.0-52.0); HEMOGLOBIN 8.3 g/dl (14.0-18.0); LYMPHOCYTES # 1.2 10^3/ul (0.8-2.9); LYMPHOCYTES % 22.8 % (15.0-51.0); MEAN CORPUSCULAR HEMOGLOBIN 27.6 pg (29.0-33.0); MEAN CORPUSCULAR HGB CONC 32.4 g/dl (32.0-37.0); MEAN PLATELET VOLUME 10.2 fl (7.4-10.4); MONOCYTE # 0.5 10^3/ul (0.3-0.9); MONOCYTES % 9.9 % (0.0-11.0); NEUTROPHILS % 59.8 % (39.0-77.0); PLATELET COUNT 134 10^3/UL (140-415); RED BLOOD COUNT 3.01 10^6/ul (4.70-6.10); RED CELL DISTRIBUTION WIDTH 18.3 % (11.5-14.5); WHITE BLOOD COUNT 5.3 10^3/ul (4.8-10.8)
[2017-03-10 07:08] LABS: CREATININE 6.93 mg/dl (0.61-1.24); POTASSIUM 3.7 mmol/L (3.5-5.1)
[2017-03-10] MEDS: INSULIN ASPART [NOVOLOG] 3 ML PEN SC SCH ×4 (07:55→20:35)
[2017-03-10 08:44] LABS: ADD UMIC YES; UR AMORPHOUS CRYSTAL FEW /HPF (NONE SEEN); UR ASCORBIC ACID NEGATIVE (NEGATIVE); UR BACTERIA FEW /HPF (NONE SEEN); UR BILIRUBIN (Dip) NEGATIVE (NEGATIVE); UR BLOOD (Dip) 1+ mg/dL (NEGATIVE); UR CLARITY SLIGHTLY CLOUDY (CLEAR); UR COLOR AMBER (YELLOW); UR GLUCOSE (Dip) 1+ mg/dL (NEGATIVE); UR KETONES (Dip) NEGATIVE (NEGATIVE); UR LEUKOCYTE ESTERASE (Dip) 1+ Leu/ul (NEGATIVE); UR NITRITE (Dip) NEGATIVE (NEGATIVE); UR RBC 18 /HPF (0-5); UR SPECIFIC GRAVITY (Dip) 1.013 (1.003-1.030); UR TOTAL PROTEIN (Dip) 2+ mg/dl (NEGATIVE); UR UROBILINOGEN (Dip) NEGATIVE (NEGATIVE)
[2017-03-10] MEDS: ALBUTEROL/IPRATROPIUM (NEB) 3 ML AMP HHN SCH ×4 (09:00→20:23)
[2017-03-10] MEDS: FUROSEMIDE 40 MG TAB PO SCH ×2 (09:00→16:03)
[2017-03-10] MEDS: MEGESTROL (40 MG/ML) 10ML CUP PO SCH ×2 (09:00→20:17)
[2017-03-10] MEDS: NIFEdipine (XL) 30 MG TAB PO SCH ×2 (09:00→16:04)
[2017-03-10] MEDS: MULTIVITAMINS THERAPEUTIC TAB PO SCH (09:20)
[2017-03-10] MEDS: TRIMETHOPRIM/SULFAMETHOX (SS) TAB PO SCH (09:21)
[2017-03-10] MEDS: TRIAMCINOLONE ACET 0.1% 15 GM OINT TOP SCH ×2 (09:21→20:18)
[2017-03-10] MEDS: SALMETEROL/FLUTICASONE 250/50 INHA INH SCH ×2 (09:21→20:22)
[2017-03-10] MEDS: REPAGLINIDE 2 MG TAB PO SCH ×2 (11:50→17:55)
--- NOTE | 2017-03-10 14:39 | CONS ---
Date/Time of Note Date/Time of Note DATE: 03/10/17 TIME: 14:35 Assessment/Plan Assessment/Plan Chief Complaint/Hosp Course 1. End-stage renal disease now requiring maintenance hemodialysis Thursday. His hemoglobin and hematocrit are stable. He had hemodialysis today and 3 L of fluid was removed. He continues to be tired. His mental status is overall improved. Discharge planning is in process. Arrangements are being made for outpatient hemodialysis 2. Cirrhosis of the liver, he has a history of hepatitis C which was treated. He does have cirrhosis and has had hepatic encephalopathy which is now treated. His last ammonia level was normal. He is on lactulose. 3. Fluid overloaded now much improved 4. Anemia , he had some GI bleeding which has stopped. His H&H is higher today . 5. Diabetes mellitus 6. Morbid obesity 7. Sleep apnea 8. Urinary tract infection , ID is now recommending gentamicin for 3 doses after dialysis. 9. Congestive heart failure , improved 10. Thrombocytopenia, his platelet count is higher. Probably due to antibiotics that he was on. Problems: Consultation Date/Type/Reason Admit Date/Time Feb 23, 2017 at 17:22 Initial Consult Date 02/25/17 Type of Consultation: ID 24 HR Interval Summary Free Text/Dictation He says that he feels tired. He is awake and alert. He had hemodialysis earlier today and 3 L of fluid was removed. He is going to receive 200 mg of gentamicin IV at the end of dialysis today and for 2 more doses Constitutional: no complaints Exam/Review of Systems Vital Signs Vitals Vital Signs Date Time Temp Pulse Resp B/P Pulse Ox O2 Delivery O2 Flow Rate FiO2 03/10/17 12:19 94 03/10/17 11:00 18 03/10/17 04:34 98.6 157/65 94 03/07/17 06:00 Nasal Cannula 2.0 Intake and Output 03/09/17 03/09/17 03/10/17 15:00 23:00 07:00 Intake Total 600 ml 400 ml Output Total 190 ml 200 ml Balance 410 ml 200 ml Exam Constitutional: alert, frail, obese, oriented Respiratory: clear to auscultation Cardiovascular: regular rate and rhythm, No edema Gastrointestinal: soft Musculoskeletal: nl extremities to inspection Results Result Diagram: 03/10/17 0528 03/10/17 0528 Results 24 hrs Laboratory Tests Test 03/09/17 17:21 03/09/17 17:25 03/09/17 21:12 03/10/17 02:00 Bedside Glucose 168 196 219 Urine Color KAYLAN Urine Clarity SLIGHTLY CLOUDY A Urine pH 5.0 Urine Specific [place] 1.013 Urine Ketones NEGATIVE Urine Nitrite NEGATIVE Urine Bilirubin NEGATIVE Urine Urobilinogen NEGATIVE Urine Leukocyte Esterase 1+ H Urine Microscopic RBC 18 H Urine Microscopic WBC 42 H Urine Amorphous Crystals FEW A Urine Bacteria FEW A Urine Hemoglobin 1+ H Urine Glucose 1+ H Urine Total Protein 2+ H Test 03/10/17 05:28 03/10/17 08:14 03/10/17 12:36 White Blood Count 5.3 Red Blood Count 3.01 L Hemoglobin 8.3 L Hematocrit 25.6 L Mean Corpuscular Volume 85.0 Mean Corpuscular Hemoglobin 27.6 L Mean Corpuscular Hemoglobin Concent 32.4 Red Cell Distribution Width 18.3 H Platelet Count 134 L Mean Platelet Volume 10.2 Neutrophils % 59.8 Lymphocytes % 22.8 Monocytes % 9.9 Eosinophils % 6.7 Basophils % 0.6 Nucleated Red Blood Cells % 0.0 Neutrophils # (Manual) 3.2 Lymphocytes # 1.2 Monocytes # 0.5 Eosinophils # 0.4 Basophils # 0.0 Nucleated Red Blood Cells # 0.0 Sodium Level 135 Potassium Level 3.7 Chloride Level 96 L Carbon Dioxide Level 26 Anion Gap 17 H Blood Urea Nitrogen 43 H Creatinine 6.93 H Glucose Level 118 # Calcium Level 8.0 L Bedside Glucose 134 125 Medications Medications Current Medications Acetaminophen (Tylenol Tab) 500 mg Q6H PRN PO PAIN AND OR ELEVATED TEMP Last administered on 03/06/17 20:19; Admin Dose 500 MG; Start 02/23/17 at 19:00 Epoetin Sean (Epogen (Esrd)) 10,000 units MoWeFr@17 SC Last administered on 17:26; Admin Dose 10,000 UNITS; Start 02/25/17 at 17:00 Furosemide (Lasix) 40 mg DAILY PO Last administered on 03/09/17 10:23; Admin Dose 40 MG; Start 02/24/17 at 09:00 Hydroxyzine HCl (Atarax) 10 mg Q6H PRN PO ITCHING; Start 02/23/17 at 19:00 Lactulose (Enulose) 30 gm HS PO ; Start 02/23/17 at 21:00; Status Future Hold Lactulose (Enulose) 20 gm Q6 PRN PO CONSTIPATION; Start 02/23/17 at 19:00 Megestrol Acetate (Megace Susp) 400 mg BID PO Last administered on 03/06/17 08 :53; Admin Dose 400 MG; Start 02/23/17 at 21:00 Multivitamins Therapeutic (Theragran) 1 tab DAILY PO Last administered on 09:20; Admin Dose 1 TAB; Start 02/24/17 at 09:00 Nifedipine (Procardia Xl) 30 mg DAILY PO Last administered on 03/09/17 10:23; Admin Dose 30 MG; Start 02/24/17 at 09:00 Nitroglycerin (Nitroglycerin (Sl Tab) 0.4 Mg) 1 tab Q5M PRN SL ANGINA; Start at 19:00 Ondansetron HCl (Zofran Inj) 4 mg Q4H PRN IV NAUSEA AND/OR VOMITING; Start at 19:00 Promethazine HCl/ Dextromethorphan (Phenergan-Dm) 10 ml TID PRN PO COUGH; Start 02/23/17 at 19:00 Salmeterol Xinafoate/ Fluticasone (Advair 250/50 Diskus) 1 inh BID INH Last administered on 03/10/17 09:21; Admin Dose 1 INH; Start 02/23/17 at 21:00 Triamcinolone Acetonide (Kenalog 0.1% Oint) 1 applic BID TOP Last administered on 03/10/17 09:21; Admin Dose 1 APPLIC; Start 02/23/17 at 21:00 Diagnostic Test (Pha) (Accu-Chek) 1 ea 02 XX Last administered on 03/06/17 02: 58; Admin Dose 1 EA; Start 02/24/17 at 02:00 Escitalopram Oxalate (Lexapro) 10 mg QHS PO Last administered on 03/09/17 21: 14; Admin Dose 10 MG; Start 02/24/17 at 21:00 Pantoprazole (Protonix Tab) 40 mg BID@,18 PO Last administered on 03/10/17 06:36; Admin Dose 40 MG; Start 02/26/17 at 18:00 Miscellaneous Information 1 ea NOTE XX ; Start 03/02/17 at 15:00 Glucose (Glutose) 15 gm Q15M PRN PO DECREASED GLUCOSE; Start 03/02/17 at 15:00 Glucose (Glutose) 22.5 gm Q15M PRN PO DECREASED GLUCOSE; Start 03/02/17 at 15: 00 Dextrose (D50w Syringe) 25 ml Q15M PRN IV DECREASED GLUCOSE; Start 03/02/17 at 15:00 Dextrose (D50w Syringe) 50 ml Q15M PRN IV DECREASED GLUCOSE; Start 03/02/17 at 15:00 Glucagon (Glucagen) 1 mg Q15M PRN IM DECREASED GLUCOSE; Start 03/02/17 at 15:00 Glucose (Glutose) 15 gm Q15M PRN BUCCAL DECREASED GLUCOSE; Start 03/02/17 at 15 :00 Clonidine (Catapres) 0.1 mg Q4H PRN PO SBP > 170 or DBP > 110 Last administered on 03/05/17 20:41; Admin Dose 0.1 MG; Start 03/05/17 at 20:00 Trimethoprim/ Sulfamethoxazole (Bactrim (Ss)) 1 tab DAILY PO Last administered on 03/10/17 09:21; Admin Dose 1 TAB; Start 03/09/17 at 09:00 Insulin Glargine (Lantus) 20 unit QHS SC Last administered on 03/09/17 21:18; Admin Dose 20 UNIT; Start 03/09/17 at 21:00 Gentamicin Sulfate (Gentamicin Iv Per Pharmacy) PER PHARMACY DOSING X 3 DIALY... NOTE XX ; Start 03/09/17 at 14:30; Stop 03/14/17 at 20:00 ANA MELENDEZ MD Mar 10, 2017 14:39
[2017-03-10] MEDS: ESCITALOPRAM 10 MG TAB PO SCH (20:17)
[2017-03-10] MEDS: INSULIN GLARGINE [LANtus] 3 ML PEN SC SCH (20:34)
--- NOTE | 2017-03-10 20:59 | PN ---
DATE: 03/10/2017 SUBJECTIVE DATA: Patient is very lethargic at the present time, status post dialysis. OBJECTIVE DATA: VITAL SIGNS: Blood pressure 157/65, temperature 98.6, O2 sat 94 percent on room air. HEENT: Head normocephalic. Mild pallor. No cyanosis or icterus. JVP is not increased. CHEST: Clear. HEART: S1, S2. No definite gallops. EXTREMITIES: No edema. LABORATORY AND DIAGNOSTIC DATA: Potassium 3.7. Glucose 118. Urine cultures growing E coli and VRE. IMPRESSION: 1. [id number] renal failure, on hemodialysis. 2. Anemia and thrombocytopenia, improved. 3. Cirrhosis with portal hypertension second to hep C, treated. 4. Duodenal ulcer with gastrointestinal bleed, resolved. 5. Diabetes mellitus type 2, well controlled. 6. Morbid obesity. 7. Obstructive sleep apnea. 8. Underlying major depression, improving. 9. Urinary tract infection with Escherichia coli and vancomycin- resistant Enterococcus. PLAN: Follow recommendations per Dr. Yadav. Discharge plans underway. Will need to arrange to have hemodialysis as outpatient. Also have followup with [facility] for possible TIPS procedure. Will discuss with other MD's and re-evaluate the patient this p.m. Dictated By: Ivan Brice MD /marlyn/[email or web address] /Document#: [id number]
[2017-03-11] VITALS (10 sets, daily range): BP systolic 131–147; BP diastolic 60–67; PULSE 80–101; RESP 16–22
[2017-03-11] MEDS: ACCU-CHEK XX SCH (02:34)
[2017-03-11] MEDS: PANTOPRAZOLE (EC) 40 MG TAB PO SCH (06:36)
[2017-03-11] MEDS: REPAGLINIDE 2 MG TAB PO SCH ×3 (07:55→11:50)
[2017-03-11] MEDS: INSULIN ASPART [NOVOLOG] 3 ML PEN SC SCH ×2 (08:36→12:03)
[2017-03-11] MEDS: TRIAMCINOLONE ACET 0.1% 15 GM OINT TOP SCH (08:45)
[2017-03-11] MEDS: FUROSEMIDE 40 MG TAB PO SCH (08:46)
[2017-03-11] MEDS: NIFEdipine (XL) 30 MG TAB PO SCH (08:46)
[2017-03-11] MEDS: TRIMETHOPRIM/SULFAMETHOX (SS) TAB PO SCH (08:47)
[2017-03-11] MEDS: MULTIVITAMINS THERAPEUTIC TAB PO SCH (08:47)
[2017-03-11] MEDS: SALMETEROL/FLUTICASONE 250/50 INHA INH SCH (08:47)
[2017-03-11] MEDS: MEGESTROL (40 MG/ML) 10ML CUP PO SCH (08:50)
--- NOTE | 2017-03-11 08:59 | CONS ---
Date/Time of Note Date/Time of Note DATE: 03/11/17 TIME: 08:57 Assessment/Plan Assessment/Plan Chief Complaint/Hosp Course 1. End-stage renal disease now requiring maintenance hemodialysis Thursday. His hemoglobin and hematocrit are stable. He had hemodialysis yesterday and 3 L of fluid was removed. He continues to be tired. His mental status is overall improved. Discharge planning is in process. Arrangements are being made for outpatient hemodialysis 2. Cirrhosis of the liver, he has a history of hepatitis C which was treated. He does have cirrhosis and has had hepatic encephalopathy which is now treated. His last ammonia level was normal. He is on lactulose. 3. Fluid overloaded now much improved 4. Anemia , he had some GI bleeding which has stopped. His H&H is higher today . 5. Diabetes mellitus 6. Morbid obesity 7. Sleep apnea 8. Urinary tract infection , ID is now recommending gentamicin for 3 doses after dialysis. 9. Congestive heart failure , improved 10. Thrombocytopenia, his platelet count is higher. Probably due to antibiotics that he was on. Problems: Consultation Date/Type/Reason Admit Date/Time Feb 23, 2017 at 17:22 Initial Consult Date 02/25/17 Type of Consultation: ID 24 HR Interval Summary Free Text/Dictation He is awake and alert and feeling better today . Constitutional: improved, no complaints Exam/Review of Systems Vital Signs Vitals Vital Signs Date Time Temp Pulse Resp B/P Pulse Ox O2 Delivery O2 Flow Rate FiO2 03/11/17 08:42 101 03/11/17 07:28 98.6 16 131/62 98 Intake and Output 03/10/17 03/10/17 03/11/17 15:00 23:00 07:00 Intake Total 500 ml 905 ml 350 ml Output Total 3500 ml Balance -3000 ml 905 ml 350 ml Exam Constitutional: alert, frail, obese, oriented Neck: supple Respiratory: clear to auscultation, normal air movement Cardiovascular: regular rate and rhythm Gastrointestinal: non-tender, soft Musculoskeletal: nl extremities to inspection Results Result Diagram: 03/10/17 0528 03/10/17 0528 Results 24 hrs Laboratory Tests Test 03/10/17 12:36 03/10/17 17:47 03/10/17 20:15 03/11/17 02:20 Bedside Glucose 125 196 219 168 Test 03/11/17 08:26 Bedside Glucose 165 Medications Medications Current Medications Acetaminophen (Tylenol Tab) 500 mg Q6H PRN PO PAIN AND OR ELEVATED TEMP Last administered on 03/06/17 20:19; Admin Dose 500 MG; Start 02/23/17 at 19:00 Epoetin Sean (Epogen (Esrd)) 10,000 units MoWeFr@17 SC Last administered on 17:26; Admin Dose 10,000 UNITS; Start 02/25/17 at 17:00 Furosemide (Lasix) 40 mg DAILY PO Last administered on 03/11/17 08:46; Admin Dose 40 MG; Start 02/24/17 at 09:00 Hydroxyzine HCl (Atarax) 10 mg Q6H PRN PO ITCHING; Start 02/23/17 at 19:00 Lactulose (Enulose) 30 gm HS PO ; Start 02/23/17 at 21:00; Status Future Hold Lactulose (Enulose) 20 gm Q6 PRN PO CONSTIPATION; Start 02/23/17 at 19:00 Megestrol Acetate (Megace Susp) 400 mg BID PO Last administered on 03/06/17 08 :53; Admin Dose 400 MG; Start 02/23/17 at 21:00 Multivitamins Therapeutic (Theragran) 1 tab DAILY PO Last administered on 08:47; Admin Dose 1 TAB; Start 02/24/17 at 09:00 Nifedipine (Procardia Xl) 30 mg DAILY PO Last administered on 03/11/17 08:46; Admin Dose 30 MG; Start 02/24/17 at 09:00 Nitroglycerin (Nitroglycerin (Sl Tab) 0.4 Mg) 1 tab Q5M PRN SL ANGINA; Start at 19:00 Ondansetron HCl (Zofran Inj) 4 mg Q4H PRN IV NAUSEA AND/OR VOMITING; Start at 19:00 Promethazine HCl/ Dextromethorphan (Phenergan-Dm) 10 ml TID PRN PO COUGH; Start 02/23/17 at 19:00 Salmeterol Xinafoate/ Fluticasone (Advair 250/50 Diskus) 1 inh BID INH Last administered on 03/11/17 08:47; Admin Dose 1 INH; Start 02/23/17 at 21:00 Triamcinolone Acetonide (Kenalog 0.1% Oint) 1 applic BID TOP Last administered on 03/10/17 09:21; Admin Dose 1 APPLIC; Start 02/23/17 at 21:00 Diagnostic Test (Pha) (Accu-Chek) 1 ea 02 XX Last administered on 03/11/17 02: 34; Admin Dose 1 EA; Start 02/24/17 at 02:00 Escitalopram Oxalate (Lexapro) 10 mg QHS PO Last administered on 03/10/17 20: 17; Admin Dose 10 MG; Start 02/24/17 at 21:00 Pantoprazole (Protonix Tab) 40 mg BID@18 PO Last administered on 03/11/17 06:36; Admin Dose 40 MG; Start 02/26/17 at 18:00 Miscellaneous Information 1 ea NOTE XX ; Start 03/02/17 at 15:00 Glucose (Glutose) 15 gm Q15M PRN PO DECREASED GLUCOSE; Start 03/02/17 at 15:00 Glucose (Glutose) 22.5 gm Q15M PRN PO DECREASED GLUCOSE; Start 03/02/17 at 15: 00 Dextrose (D50w Syringe) 25 ml Q15M PRN IV DECREASED GLUCOSE; Start 03/02/17 at 15:00 Dextrose (D50w Syringe) 50 ml Q15M PRN IV DECREASED GLUCOSE; Start 03/02/17 at 15:00 Glucagon (Glucagen) 1 mg Q15M PRN IM DECREASED GLUCOSE; Start 03/02/17 at 15:00 Glucose (Glutose) 15 gm Q15M PRN BUCCAL DECREASED GLUCOSE; Start 03/02/17 at 15 :00 Clonidine (Catapres) 0.1 mg Q4H PRN PO SBP > 170 or DBP > 110 Last administered on 03/05/17 20:41; Admin Dose 0.1 MG; Start 03/05/17 at 20:00 Trimethoprim/ Sulfamethoxazole (Bactrim (Ss)) 1 tab DAILY PO Last administered on 03/11/17 08:47; Admin Dose 1 TAB; Start 03/09/17 at 09:00 Insulin Glargine (Lantus) 20 unit QHS SC Last administered on 03/10/17 20:34; Admin Dose 20 UNIT; Start 03/09/17 at 21:00 Gentamicin Sulfate (Gentamicin Iv Per Pharmacy) PER PHARMACY DOSING X 3 DIALY... NOTE XX ; Start 03/09/17 at 14:30; Stop 03/14/17 at 20:00 ANA MELENDEZ MD Mar 11, 2017 08:59
[2017-03-11] MEDS: ALBUTEROL/IPRATROPIUM (NEB) 3 ML AMP HHN SCH (09:00)
[2017-03-11] MEDS ORDERED: NIFE30TA2 PO (13:37)
[2017-03-11] MEDS ORDERED: BACTRIM PO (13:37)
[2017-03-11] MEDS ORDERED: ESCI10TA48 PO (13:37)
[2017-03-11] MEDS ORDERED: MULTI PO (13:38)
[2017-03-11] MEDS ORDERED: PANT40TA4 PO (13:38)
[2017-03-11] MEDS ORDERED: FURO40TA4 PO (13:38)
[2017-03-11] MEDS ORDERED: GLUCOSE GEL 15 GRAM TUBE PO PRN ×2 (14:30)
[2017-03-11] MEDS ORDERED: DEXTROSE 50% 50 ML SYRINGE IV PRN ×2 (14:30)
[2017-03-11] MEDS ORDERED: GLUCOSE GEL 15 GRAM TUBE BUCCAL PRN (14:30)
[2017-03-11] MEDS ORDERED: GLUCAGON 1 MG INJ IM PRN (14:30)
--- NOTE | 2017-03-11 16:08 | RADRPT ---
PROCEDURE: Chest Radiograph. CLINICAL INDICATION: Dialysis TECHNIQUE: Single frontal chest radiograph. COMPARISON: Chest radiograph 02/16/2017 FINDINGS: The patient is mildly rotated. A left upper extremity PICC is in place with distal tip in the regio n of the superior vena cava. A right chest wall tunneled hemodialysis catheters in place with dista l tip in the region of the cavoatrial junction. There is a small right pleural effusion with adjace nt atelectasis. No confluent or lobar infiltrate is seen . The bones are intact. IMPRESSION: 1. Small right pleural effusion with adjacent atelectasis. 2. Right chest wall tunneled hemodialysis catheter and left upper extremity PICC. RPTAT: AA .Yash Poe MD, Date Time Electronically viewed and signed by .Yash Poe MD, on 03/11/2017 16:07 .B/
== END 2017-03-11 17:20 | disposition home health service (06) | DRG 813 ==
LOC: TEL 17:22
PROVIDERS: ADMIT Internal Medicine; ATTEND Internal Medicine
PROC: 5A1D60Z (ICD-10-PCS; principal; 2017-02-24)
PROC: 30233R1 Transfusion of Nonautologous Platelets into Peripheral Vein, Percutaneous Approach (ICD-10-PCS; 2017-02-25)
PROC: 30233N1 Transfusion of Nonautologous Red Blood Cells into Peripheral Vein, Percutaneous Approach (ICD-10-PCS; 2017-02-26)
PROC: 0DB68ZX Excision of Stomach, Via Natural or Artificial Opening Endoscopic, Diagnostic (ICD-10-PCS; 2017-03-04)
DX: D69.6 Thrombocytopenia, unspecified (principal); I13.2 Hypertensive heart and chronic kidney disease with heart failure and with stage 5 chronic kidney disease, or end stage renal disease; R18.8 Other ascites; K76.6 Portal hypertension; N17.9 Acute kidney failure, unspecified; N18.6 End stage renal disease; I12.0 Hypertensive chronic kidney disease with stage 5 chronic kidney disease or end stage renal disease; N03.9 Chronic nephritic syndrome with unspecified morphologic changes; K92.2 Gastrointestinal hemorrhage, unspecified; N39.0 Urinary tract infection, site not specified; B37.49 Other urogenital candidiasis; K74.69 Other cirrhosis of liver; Z99.2 Dependence on renal dialysis; G47.30 Sleep apnea, unspecified; B95.2 Enterococcus as the cause of diseases classified elsewhere; Z16.21 Resistance to vancomycin; F32.9 Major depressive disorder, single episode, unspecified; E11.9 Type 2 diabetes mellitus without complications; D64.9 Anemia, unspecified; Z79.4 Long term (current) use of insulin; E66.9 Obesity, unspecified; Z68.33 Body mass index [BMI] 33.0-33.9, adult; I50.9 Heart failure, unspecified; K29.70 Gastritis, unspecified, without bleeding; I86.4 Gastric varices
CPT/HCPCS: 36430; 71010; 80048; 80053; 81001; 82140; 82270; 82607; 82746; 82784; 82962; 83010; 83615; 83735; 84155; 84165; 85014; 85018; 85025; 85384; 85610; 85730; 86022; 86038; 86320; 86325; 86644; 86850; 86900; 86901; 86920; 87040; 87086; 90935; 97116; 97162; J1580; J1815; J7040; J7070; P9016; P9035; Q4081

== ENCOUNTER 2017-03-12 22:53 | Inpatient (IN) | payer BC ==
[~2017-03-12] VITALS: Ht 177.8 cm; Wt 125.6 kg
[~2017-03-12 22:53] MED LIST changes: +BACTRIM PO; +ESCI10TA48 PO; +FURO40TA4 PO; -FURO80TA3 PO; +LANT3I SC; +MULTI PO; +NIFE30TA2 PO; -NIFE30TA43 PO; +PANT40TA4 PO
--- NOTE | 2017-03-12 23:32 | ERA ---
ER Documentation Chief Complaint Date/Time DATE: 03/12/17 TIME: 23:31 Chief Complaint pt felt dizzy after dialysis today HPI The patient is 61-year-old male, presenting to the ER because of acute dizziness after dialysis around 8:30 PM. His blood pressure was high during dialysis, he was treated with clonidine 0.2 mg p.o. with good response. He did finish dialysis and got home around 10 PM when he felt dizzy, weak, blurred vision. He did not have syncope or seizure. He denies chest pain, dyspnea, abdominal pain, vomiting, dysuria, diarrhea. He does not smoke nor drink Past medical history: History of CHF, hypertension, hepatitis C, diabetes mellitus, obstructive sleep apnea, cirrhosis, anemia, thrombocytopenia Past surgical history: Right chest perm catheter, right upper extremity AV fistula, and left PICC ROS All systems reviewed and are negative except as per history of present illness. Medications Home Meds Active Scripts Multivitamins* (Theragran*) 1 Tab Tab, 1 TAB PO DAILY for 30 Days, #30 TAB Prov:JENY MORA MD 03/11/17 Pantoprazole* (Pantoprazole*) 40 Mg Tablet.dr, 40 MG PO BID@06,18 for 30 Days, # 30 Prov:JENY MORA MD 03/11/17 Furosemide* (Furosemide*) 40 Mg Tablet, 40 MG PO DAILY for 30 Days, #30 TAB Prov:JENY MORA MD 03/11/17 Escitalopram Oxalate* (Escitalopram Oxalate*) 10 Mg Tablet, 10 MG PO QHS for 30 Days, #30 TAB Prov:JENY MORA MD 03/11/17 Nifedipine (Procardia Xl) 30 Mg Tab.er.24, 30 MG PO DAILY for 30 Days, #30 TAB Prov:JENY MORA MD 03/11/17 Trimethoprim-Sulfamethoxazole* (Bactrim*) 400-80 Mg Tab, 1 TAB PO DAILY for 30 Days, #30 TAB Prov:JENY MORA MD 03/11/17 Reported Medications Insulin Glargine* (Lantus*) 100 Unit/Ml Soln, 32 UNIT SC QHS, #1 VIAL 02/25/17 Simvastatin* (Zocor*) 20 Mg Tablet, 20 MG PO QHS, #30 TAB 10/24/16 Lactulose* (Lactulose*) 20 Gm/30 Ml Solution, 20 GM PO QHS, ML 05/30/15 Discontinued Reported Medications Nifedipine* (Adalat CC*) 30 Mg Tablet.sa, 30 MG PO DAILY, TAB.SA 05/30/15 Furosemide* (Furosemide*) 80 Mg Tablet, 80 MG PO DAILY, TAB 05/30/15 Allergies Allergies: Coded Allergies: ceftriaxone (Verified Allergy, Intermediate, RASH, 03/04/17) per Mess notes 02/02/17 - rash with rocephin PMhx/Soc History of Surgery: Yes (appendectomy ) Anesthesia Reaction: No Hx 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 Disorder: No Hx Respiratory Disorders: No Hx Cardiac Disorders: Yes (CHF, HTN, ) Hx Psychiatric Problems: No Hx Miscellaneous Medical Probl: Yes (HepC w/ portal HTN, DM2, obesity, YEVGENIY, HTN ) Hx Alcohol Use: No Hx Substance Use: No Hx Tobacco Use: No Physical Exam Vitals Vital Signs Date Time Temp Pulse Resp B/P Pulse Ox O2 Delivery O2 Flow Rate FiO2 03/13/17 01:49 69 18 162/88 99 Room Air 03/12/17 23:43 65 19 131/71 100 Room Air 03/12/17 22:59 98.2 69 20 137/90 97 Physical Exam Const: No acute distress. Head: Atraumatic. Eyes: Normal Conjunctiva. ENT: Normal External Ears, Nose and Mouth. Neck: Full range of motion. No meningismus. Resp: Clear to auscultation bilaterally. Cardio: Regular rate and rhythm. Abd: Soft, non distended, normal bowel sounds, non tender. Skin: No petechiae or rashes. Back: No midline or flank tenderness. Ext: No cyanosis, or edema. Neur: Awake and alert. No focal deficit Psych: Normal Mood and Affect. Result Diagram: 03/13/17603/13/177 Results 24 hrs Laboratory Tests Test 03/13/17 00:07 03/13/17 00:23 03/13/17 01:21 03/13/17 02:06 White Blood Count 4.810^3/ul Red Blood Count 2.8110^6/ul Hemoglobin 7.6g/dl Hematocrit 24.4% Mean Corpuscular Volume 86.8fl Mean Corpuscular Hemoglobin 27.0pg Mean Corpuscular Hemoglobin Concent 31.1g/dl Red Cell Distribution Width 19.7% Platelet Count 29101^3/UL Mean Platelet Volume 11.2fl Neutrophils % 58.8% Lymphocytes % 23.2% Monocytes % 10.8% Eosinophils % 6.2% Basophils % 0.6% Nucleated Red Blood Cells % 0.0/100WBC Neutrophils # (Manual) 2.810^3/ul Lymphocytes # 1.110^3/ul Monocytes # 0.510^3/ul Eosinophils # 0.310^3/ul Basophils # 0.010^3/ul Nucleated Red Blood Cells # 0.010^3/ul Sodium Level 137mmol/L Potassium Level 3.2mmol/L Chloride Level 97mmol/L Carbon Dioxide Level 30mmol/L Anion Gap 13 Blood Urea Nitrogen 18mg/dl Creatinine 3.51mg/dl Glucose Level 55mg/dl Calcium Level 7.9mg/dl Troponin I 0.059ng/ml Bedside Glucose 60mg/dL 77mg/dL 171mg/dL Current Medications Medications (Trade) Dose Ordered Sig/Irasema Route PRN Reason Start Time Stop Time Status Last Admin Dose Admin Dextrose (D50w Syringe) 50 ml ONCE ONCE IV 03/13/17 02:00 03/13/17 02:01 DC 03/13/17 01:49 Procedures/MDM EKG: Read by emergency physician Rate/Rhythm: Normal Sinus Rhythm 66 beats/min QRS, ST, T-waves: No ST elevation, no T inversion, prolong QT Impression: Abnormal EKG [place] [id number] Radiology Main Line: [phone] DIAGNOSTIC IMAGING REPORT Patient: CYNTHIA STEINER : 1955 Age: 61 Sex: M MR #: [id number] DOS: 03/13/17 0001 Ordering MD: DARRYL LIZ MD Location: E/R Room/Bed: PROCEDURE: CT Brain without contrast. CLINICAL INDICATION: Patient experiencing Syncope. TECHNIQUE: A multiplanar CT of the brain was performed on a CT scanner utilizing axial imaging from the skull base through the vertex without IV contrast. The CTDIvol is 45.01 mGy and the DLP is 810.25 mGycm. One or more of the following dose reduction techniques were utilized: Automated exposure control, adjustment of the mA and/or kV according to patient size, use of iterative reconstruction technique. COMPARISON: CT brain 01/25/2017 FINDINGS: No evidence of intracranial hemorrhage or abnormal extra-axial fluid collection. Mild patchy periventricular and subcortical white matter low attenuation compatible with sequelae of chronic microvascular ischemic injury. Subinsular remote left lacunar infarct or dilated the perivascular space. The brain parenchyma is otherwise normal attenuation and morphology with preservation of joya white differentiation.The ventricles and subarachnoid spaces are prominent compatible with age appropriate volume loss. Atherosclerotic calcification of the internal carotid and vertebral arteries. The basal cisterns, posterior fossa contents, brainstem, craniocervical junction , orbits, pituitary axis, paranasal sinuses, mastoid air cells, and calvarium are unremarkable. IMPRESSION: 1. No intracranial hemorrhage or acute intracranial abnormality. RPTAT:AAJJ Physician Modesta Date Time Electronically viewed and signed by Herberth Angel Physician on 03/13/2017 01:24 JONA/ CC: DARRYL LIZ MD [place] [id number] Radiology Main Line: [phone] DIAGNOSTIC IMAGING REPORT Patient: CYNTHIA STEINER : 1955 Age: 61 Sex: M MR #: [id number] DOS: 03/13/17 0001 Ordering MD: DARRYL LIZ MD Location: E/R Room/Bed: PROCEDURE: XR Chest. CLINICAL INDICATION: Syncope TECHNIQUE: Single AP portable chest. COMPARISON: 03/11/2017 Chest x-ray FINDINGS: Of cardiac silhouette is mildly enlarged but stable in size. Chronic elevation of the right hemidiaphragm. This pulmonary vascularity and interstitial markings with right central venous left PICC line catheter in stable position. The lungs are clear without pleural effusion or focal consolidation. No pneumothorax. The osseous structures and soft tissues are unremarkable. IMPRESSION: 1. Mild cardiomegaly without pleural effusion or focal consolidation. 2. Support device is in stable and satisfactory position . RPTAT:AAJJ Herberth Angel, Physician Date Time Electronically viewed and signed by Herberth Angel, Physician on 03/13/2017 00:33 JONA/ CC: DARRYL LIZ MD . MEDICAL MAKING DECISION: The patient is a 61-year-old male, presenting with acute hypoglycemia, acute dizziness most likely due to acute hypoglycemia, acute hypokalemia He was given a meal to eat, however he did not eat much, blood glucose remained low and therefore he was treated with 1 amp of D50 IV with good response The differential diagnoses considered include but are not limited to central causes such as cerebellar infarct, cerebellar hemorrhage, cerebellar tumor, acoustic neuroma, peripheral causes such as benign positional vertigo, labyrinthitis, medication, Meniere's disease, gi bleeding. Departure Diagnosis: Primary Impression: Dizziness Additional Impressions: Hypoglycemia Hypokalemia Condition: Stable Comments Hypoglycemia I discussed the findings with the patient. I discussed the patient with his physician Dr. Clark who was made aware of the lab, the treatment , the patient condition. The patient is admitted to DARRYL LIZ MD Mar 12, 2017 23:32
[2017-03-13] VITALS (12 sets, daily range): BP systolic 112–180; BP diastolic 61–77; PULSE 63–76; RESP 15–20; Ht 177.8 cm; Wt 125.6 kg
--- NOTE | 2017-03-13 00:33 | RADRPT ---
PROCEDURE: XR Chest. CLINICAL INDICATION: Syncope TECHNIQUE: Single AP portable chest. COMPARISON: 03/11/2017 Chest x-ray FINDINGS: Of cardiac silhouette is mildly enlarged but stable in size. Chronic elevation of the right hemidia phragm. This pulmonary vascularity and interstitial markings with right central venous left PICC li ne catheter in stable position. The lungs are clear without pleural effusion or focal consolidati on. No pneumothorax. The osseous structures and soft tissues are unremarkable. IMPRESSION: 1. Mild cardiomegaly without pleural effusion or focal consolidation. 2. Support device is in stable and satisfactory position . RPTAT:AAJJ Physician Modesta Date Time Electronically viewed and signed by Physician Modesta on 03/13/2017 00:33 JONA/
[2017-03-13 00:56] LABS: BASOPHILS % 0.6 % (0.0-2.0); EOSINOPHILS # 0.3 10^3/ul (0.0-0.5); EOSINOPHILS % 6.2 % (0.0-7.0); HEMATOCRIT 24.4 % (42.0-52.0); HEMOGLOBIN 7.6 g/dl (14.0-18.0); LYMPHOCYTES # 1.1 10^3/ul (0.8-2.9); LYMPHOCYTES % 23.2 % (15.0-51.0); MEAN CORPUSCULAR HGB CONC 31.1 g/dl (32.0-37.0); MEAN CORPUSCULAR VOLUME 86.8 fl (82.0-101.0); MEAN PLATELET VOLUME 11.2 fl (7.4-10.4); MONOCYTE # 0.5 10^3/ul (0.3-0.9); MONOCYTES % 10.8 % (0.0-11.0); NEUTROPHILS % 58.8 % (39.0-77.0); PLATELET COUNT 122 10^3/UL (140-415); RED BLOOD COUNT 2.81 10^6/ul (4.70-6.10); RED CELL DISTRIBUTION WIDTH 19.7 % (11.5-14.5); WHITE BLOOD COUNT 4.8 10^3/ul (4.8-10.8)
[2017-03-13 01:16] LABS: CALCIUM 7.9 mg/dl (8.4-10.2); CREATININE 3.51 mg/dl (0.61-1.24); POTASSIUM 3.2 mmol/L (3.5-5.1)
--- NOTE | 2017-03-13 01:24 | RADRPT ---
PROCEDURE: CT Brain without contrast. CLINICAL INDICATION: Patient experiencing Syncope. TECHNIQUE: A multiplanar CT of the brain was performed on a CT scanner utilizing axial imaging fro m the skull base through the vertex without IV contrast. The CTDIvol is 45.01 mGy and the DLP is 81 0.25 mGycm. One or more of the following dose reduction techniques were utilized: Automated exposu re control, adjustment of the mA and/or kV according to patient size, use of iterative reconstructio n technique. COMPARISON: CT brain 01/25/2017 FINDINGS: No evidence of intracranial hemorrhage or abnormal extra-axial fluid collection. Mild patchy periventricular and subcortical white matter low attenuation compatible with sequelae of chronic microvascular ischemic injury. Subinsular remote left lacunar infarct or dilated the periva scular space. The brain parenchyma is otherwise normal attenuation and morphology with preservation of joya white differentiation.The ventricles and subarachnoid spaces are prominent compatible with a ge appropriate volume loss. Atherosclerotic calcification of the internal carotid and vertebral arteries. The basal cisterns, posterior fossa contents, brainstem, craniocervical junction, orbits, pituitary axis, paranasal sinuses, mastoid air cells, and calvarium are unremarkable. IMPRESSION: 1. No intracranial hemorrhage or acute intracranial abnormality. RPTAT:AAJJ Physician Modesta Date Time Electronically viewed and signed by Physician Modesta on 03/13/2017 01:24 JONA/
[2017-03-13 01:25] LABS: TROPONIN-I 0.059 ng/ml (0.00-0.12)
[2017-03-13] MEDS ORDERED: DEXTROSE 50% 50 ML SYRINGE IV ONE (02:00)
[2017-03-13] MEDS ORDERED: POTASSIUM CHLORIDE (SR) 20 MEQ TAB PO ONE (04:26)
[2017-03-13] MEDS ORDERED: GLUCOSE GEL 15 GRAM TUBE BUCCAL PRN (04:30)
[2017-03-13] MEDS ORDERED: GLUCOSE GEL 15 GRAM TUBE PO PRN ×2 (04:30)
[2017-03-13] MEDS ORDERED: GLUCAGON 1 MG INJ IM PRN (04:30)
[2017-03-13] MEDS ORDERED: DEXTROSE 50% 50 ML SYRINGE IV PRN ×2 (04:30)
[2017-03-13] MEDS: PANTOPRAZOLE (EC) 40 MG TAB PO SCH ×2 (05:37→17:50)
[2017-03-13] MEDS ORDERED: FUROSEMIDE 40 MG TAB PO SCH (06:00)
[2017-03-13] MEDS: ACCU-CHEK XX SCH ×4 (08:00→21:04)
[2017-03-13] MEDS: TRIMETHOPRIM/SULFAMETHOX (SS) TAB PO SCH (08:56)
[2017-03-13] MEDS: MULTIVITAMINS THERAPEUTIC TAB PO SCH (08:56)
[2017-03-13] MEDS ORDERED: NIFEdipine (XL) 30 MG TAB PO SCH (09:00)
--- NOTE | 2017-03-13 11:08 | HP ---
DATE OF ADMISSION: 03/13/2017 HISTORY OF PRESENT ILLNESS: The patient is a 61-year-old, male, well known to me from previous follow-up with history of chronic kidney disease (end-stage renal disease on hemodialysis), obstructive sleep apnea, diabetes mellitus type 2, hypertension, cirrhosis, portal hypertension, hep C, anemia, and was discharged on the day before, who while at the dialysis unit, became very dizzy and apparently was hypertensive, given clonidine and he went home. He felt more dizzy. No history of syncope. The patient was evaluated emergency room found to be hypoglycemic with a blood sugar of 55 and was admitted. For detailed past medical history, please refer to my earlier records. REVIEW OF SYSTEMS: HEAD: No history of strokes and no history of head trauma. EYES: Eyes no blurry vision. Glaucoma. ENT: Noncontributory. NECK: No carotid bruits. CHEST: No bronchitis. The patient also has a history of obstructive sleep apnea. HEART: No PND, orthopnea, palpitations, prior history of CHF. Work up for coronary artery disease to be done when the patient is more stable from a medical standpoint. GASTROINTESTINAL: History of hepatic cirrhosis with portal hypertension secondary to hep C, treated. Hep C acquired by transfusion. History of duodenal ulcer with bleed. The patient has a history of morbid obesity. GENITOURINARY: No dysuria or kidney stones. During the course of the last hospiotalization, the patient had MSSA bacteremia and VRE positive urine. MEDICATIONS: Include: 1. Lantus insulin 15 units at h.s. 2. Glipizide 5 mg p.o. q.day. (The patient did not take his glipizide or Lantus.) 3. __Nifedipine 30 mg p.o. daily 4. Pantoprazole 40 mg q.daily. 5. Trimethoprim sulfamethoxazole single strength 1 tablet p.o. daily. 6. Lactulose 20 g q.h.s. 7. Lasix 40 mg q.daily. 8. Lexapro 10 mg daily. 9. Clonidine on p.r.n. basis. PHYSICAL EXAMINATION: GENERAL APPEARANCE: Patient is an average built male, who is presently in no acute distress. VITAL SIGNS: Temperature 98.7, blood pressure 113/62, O2 sat 96 percent on room air. HEENT: Head normocephalic. JVD is not increased. CHEST: Clinically clear. HEART: S1, S2. No definite gallops. ABDOMEN: Obese, nontender. No hepatosplenomegaly. EXTREMITIES: Trace edema. Homans sign is negative. Scaly dermatitis noted over lower extremities. Homans negative. NEUROLOGIC: No localizing or lateralizing signs. LABORATORY: WBC count 4.8, hematocrit 24.4, glucose 171, P 58 and 65 this morning. IMPRESSION: 1. Symptomatic hypoglycemia with hypertension causing near syncope. 2. Diabetes mellitus type 2. 3. Acute on chronic renal failure on hemodialysis. 4. Obstructive sleep apnea. 5. Obesity. 6. Cirrhosis, portal hypertension, status post hepatitis C, treated. 7. Underlying major depression. Improved. 8. Status post thrombocytopenia, improved. 9. Infection with the urinary tract with Vancomycin resistant enterococcus and Escherichia coli, being treated. PLAN: Would opt to hold off on sulfonylureas (patient did not even take the medication. ) Decrease the dose of Lantus insulin. Will closely monitor blood glucose levels. Hold on insulin coverage for now. Control blood pressure. Optimize meds for same. Will discuss with Dr. Patiño and consider removing the Port-A-Cath. We will discuss with Dr. Collado regarding same. Also request physical therapy evaluation. Dictated By: Ivan Brice MD /[email or web address]/noemy /Document#: [id number] DENILSON
--- NOTE | 2017-03-13 11:48 | CONS ---
DATE OF ADMISSION: 03/13/2017 DATE OF CONSULTATION: 03/13/2017 Thank you very much for allowing me to evaluate this 61-year-old male admitted to the hospital with weakness and known chronic renal insufficiency. HISTORICAL EVENTS: As you well know, this patient was discharged 2 days ago, having been admitted here for symptoms of GI bleeding and having been maintained on chronic hemodialysis. Yesterday was his 1st treatment at the outpatient facility and when he arrived, per his and my discussion with Dr. Clark, and his blood pressure was in the range of 200 systolic. He was given Catapres and following completing his treatment was unable to walk, his vision was blurred, and he was quite weak, ultimately being evaluated at [facility] when his sugars were approximately 55 and hospitalization was recommended. The patient's states there has been no GI bleeding. Patient confirms the same. There has been no nausea, vomiting, or diarrhea. He did take his usual "blood pressure meds" in the morning. Presently, he is comfortable without cough, wheezing, shortness of breath, nausea, vomiting, abdominal or chest pain. PAST MEDICAL HISTORY: Includes: 1. History of hepatitis C, treated. 2. Cirrhosis of the liver. 3. History of congestive heart failure. 4. Morbid obesity. MEDICATION: 1. Lexapro 10 mg per day. 2. Lasix 40 mg per day. 3. Insulin before meals. 4. Long-acting insulin. 5. Nifedipine 30 mg per day. PAST MEDICAL HISTORY: Kindly see prior dictation. PHYSICAL EXAMINATION: GENERAL APPEARANCE: A chronically-ill male. VITAL SIGNS: BP 136/62, respirations rate 18, he was afebrile. NECK: No JVD. LUNGS: Clear. HEART: Rhythm regular. No murmur. No 3rd or 4th sound. ABDOMEN: Nontender. No organomegaly. EXTREMITIES: No edema. NEUROLOGIC: No lateralizing motor weakness. LABORATORY AND DIAGNOSTIC STUDIES: Hematocrit 24.4, white count 4800, platelet count 122,000. Chemistries unrevealing except for a potassium of 3.2, sugar was 77. Troponin was 0.059. IMPRESSION: 1. Elevated blood pressure prior to the initiation of dialysis, cause unclear. Clearly, this needs to be monitored during this hospitalization, and blood pressure meds critically reviewed. 2. Anemia. Reasonable to transfuse 2 units of packed cells. Again, we will be certain there is no ongoing gastrointestinal bleeding. 3. Chronic kidney disease. Will be dialyzed tomorrow. Blood pressure observe closely throughout. 4. Diabetes. Sugars to be monitored on current regimen. We will follow him with you daily. Dictated By: Manuel Doran MD /[email or web address]/steven /Document#: [id number]
[2017-03-13] MEDS: MULTIVIT/CA CARB/B CMPLX/FA TAB PO SCH (12:24)
[2017-03-13] MEDS: EPOETIN 10000 UNITS/1 ML INJ (ESRD) SC SCH (18:29)
[2017-03-13] MEDS: NIFEdipine (XL) 30 MG TAB PO SCH (21:00)
[2017-03-13] MEDS: INSULIN GLARGINE [LANtus] 3 ML PEN SC SCH (21:00)
[2017-03-13] MEDS: LACTULOSE 30ML CUP PO SCH (21:03)
[2017-03-13] MEDS: ESCITALOPRAM 10 MG TAB PO SCH (21:03)
[2017-03-14] VITALS (23 sets, daily range): BP systolic 120–195; BP diastolic 57–90; PULSE 77–86; RESP 16–20
[2017-03-14] MEDS: PANTOPRAZOLE (EC) 40 MG TAB PO SCH ×2 (06:21→17:21)
[2017-03-14 06:57] LABS: BASOPHIL # 0.1 10^3/ul (0.0-0.1); BASOPHILS % 0.8 % (0.0-2.0); EOSINOPHILS # 0.5 10^3/ul (0.0-0.5); EOSINOPHILS % 7.5 % (0.0-7.0); HEMATOCRIT 26.2 % (42.0-52.0); HEMOGLOBIN 8.2 g/dl (14.0-18.0); LYMPHOCYTES # 1.7 10^3/ul (0.8-2.9); LYMPHOCYTES % 28.5 % (15.0-51.0); MEAN CORPUSCULAR HEMOGLOBIN 27.1 pg (29.0-33.0); MEAN CORPUSCULAR HGB CONC 31.3 g/dl (32.0-37.0); MEAN CORPUSCULAR VOLUME 86.5 fl (82.0-101.0); MONOCYTE # 0.5 10^3/ul (0.3-0.9); MONOCYTES % 7.8 % (0.0-11.0); NEUTROPHILS % 55.1 % (39.0-77.0); PLATELET COUNT 141 10^3/UL (140-415); RED BLOOD COUNT 3.03 10^6/ul (4.70-6.10); RED CELL DISTRIBUTION WIDTH 19.1 % (11.5-14.5)
[2017-03-14 07:11] LABS: IRON 61 ug/dl (35-150)
[2017-03-14 07:18] LABS: CREATININE 4.9 mg/dl (0.61-1.24); POTASSIUM 4.2 mmol/L (3.5-5.1)
[2017-03-14 07:20] LABS: TOTAL IRON BINDING CAPACITY 228 ug/dl (241-421)
[2017-03-14] MEDS: ACCU-CHEK XX SCH ×3 (07:25→17:25)
[2017-03-14] MEDS: MULTIVIT/CA CARB/B CMPLX/FA TAB PO SCH (08:42)
[2017-03-14] MEDS: NIFEdipine (XL) 30 MG TAB PO SCH ×3 (08:42→21:04)
[2017-03-14] MEDS: TRIMETHOPRIM/SULFAMETHOX (SS) TAB PO SCH (08:42)
[2017-03-14] MEDS: MULTIVITAMINS THERAPEUTIC TAB PO SCH (08:42)
--- NOTE | 2017-03-14 12:33 | CONS ---
Date/Time of Note Date/Time of Note DATE: 03/14/17 TIME: 12:29 Assessment/Plan Assessment/Plan Chief Complaint/Hosp Course # ESRD. tolerating HD well. Catheter was used today. Can use AVG next time # Hypoglycemia resolved # HTN controlled # Anemia. s/p transfusion today. Receiving JAGDEEP Problems: Consultation Date/Type/Reason Admit Date/Time Mar 13, 2017 at 01:58 Initial Consult Date Type of Consultation: Nephrology 24 HR Interval Summary Free Text/Dictation Seen on dialysis, no complaints. Family at bedside, all questions answered. Exam/Review of Systems Vital Signs Vitals Vital Signs Date Time Temp Pulse Resp B/P Pulse Ox O2 Delivery O2 Flow Rate FiO2 03/14/17 12:00 83 03/14/17 09:30 18 03/14/17 07:56 98.7 141/70 95 03/13/17 02:49 Room Air Intake and Output 03/13/17 03/13/17 03/14/17 15:00 23:00 07:00 Intake Total 740 ml 400 ml Balance 740 ml 400 ml Exam Neck: No jvd Respiratory: clear to auscultation Gastrointestinal: soft Extremities: other (AFG LUE with good bruit), No edema Results Result Diagram: 03/14/17 0616 03/14/17 0616 Results 24 hrs Laboratory Tests Test 03/13/17 17:48 03/13/17 20:49 03/14/17 06:16 03/14/17 08:01 Bedside Glucose 76 115 81 White Blood Count 6.0 # Red Blood Count 3.03 L Hemoglobin 8.2 L Hematocrit 26.2 L Mean Corpuscular Volume 86.5 Mean Corpuscular Hemoglobin 27.1 L Mean Corpuscular Hemoglobin Concent 31.3 L Red Cell Distribution Width 19.1 H Platelet Count 141 Mean Platelet Volume 11.0 H Neutrophils % 55.1 Lymphocytes % 28.5 Monocytes % 7.8 Eosinophils % 7.5 H Basophils % 0.8 Nucleated Red Blood Cells % 0.0 Neutrophils # (Manual) 3.3 Lymphocytes # 1.7 Monocytes # 0.5 Eosinophils # 0.5 Basophils # 0.1 Nucleated Red Blood Cells # 0.0 Sodium Level 135 Potassium Level 4.2 Chloride Level 99 Carbon Dioxide Level 29 Anion Gap 11 Blood Urea Nitrogen 29 #H Creatinine 4.90 #H Glucose Level 62 L Calcium Level 8.0 L Iron Level 61 Total Iron Binding Capacity 228 L Percent Iron Saturation 27 Ferritin 112.0 Test 03/14/17 11:19 Bedside Glucose 168 Medications Medications Current Medications Escitalopram Oxalate (Lexapro) 10 mg QHS PO Last administered on 03/13/17 21:03 ; Admin Dose 10 MG; Start 03/13/17 at 21:00 Insulin Glargine (Lantus) 10 unit QHS SC ; Start 03/13/17 at 21:00 Lactulose (Enulose) 20 gm QHS PO Last administered on 03/13/17 21:03; Admin Dose 20 GM; Start 03/13/17 at 21:00 Multivitamins Therapeutic (Theragran) 1 tab DAILY PO Last administered on 08:42; Admin Dose 1 TAB; Start 03/13/17 at 09:00 Pantoprazole (Protonix Tab) 40 mg BID@06,18 PO Last administered on 03/14/17 06 :21; Admin Dose 40 MG; Start 03/13/17 at 06:00 Trimethoprim/ Sulfamethoxazole (Bactrim (Ss)) 1 tab DAILY PO Last administered on 03/14/17 08:42; Admin Dose 1 TAB; Start 03/13/17 at 09:00 Miscellaneous Information 1 ea NOTE XX ; Start 03/13/17 at 04:30 Glucose (Glutose) 15 gm Q15M PRN PO DECREASED GLUCOSE; Start 03/13/17 at 04:30 Glucose (Glutose) 22.5 gm Q15M PRN PO DECREASED GLUCOSE; Start 03/13/17 at 04:30 Dextrose (D50w Syringe) 25 ml Q15M PRN IV DECREASED GLUCOSE; Start 03/13/17 at 04:30 Dextrose (D50w Syringe) 50 ml Q15M PRN IV DECREASED GLUCOSE; Start 03/13/17 at 04:30 Glucagon (Glucagen) 1 mg Q15M PRN IM DECREASED GLUCOSE; Start 03/13/17 at 04:30 Glucose (Glutose) 15 gm Q15M PRN BUCCAL DECREASED GLUCOSE; Start 03/13/17 at 04: 30 Nifedipine (Procardia Xl) 30 mg BID PO Last administered on 03/14/17 11:17; Admin Dose 30 MG; Start 03/13/17 at 21:00 Clonidine (Catapres) 0.1 mg Q8 PO ; Start 03/13/17 at 11:00 Multivit/Ca Carb/ B Cmplx/FA/Prenat (Lea-Tiara) 1 tab DAILY PO Last administered on 03/14/17 08:42; Admin Dose 1 TAB; Start 03/13/17 at 11:00 Epoetin Sean (Epogen (Esrd)) 10,000 units MoWeFr@17 SC Last administered on 03/13 18:29; Admin Dose 10,000 UNITS; Start 03/13/17 at 17:00 SHANA LEMA MD Mar 14, 2017 12:33
[2017-03-14] MEDS ORDERED: GENTAMICIN 140 MG in SOD CHLORIDE 0.9% 100 ML IVPB SCH (14:00)
--- NOTE | 2017-03-14 17:03 | PN ---
DATE: 03/13/2017 SUBJECTIVE DATA: The patient is awake, alert, just had hemodialysis. OBJECTIVE DATA: Vital signs: Blood pressure 141/70, temperature 98.7, O2 sat 95 percent on room air. Mild pallor with cyanosis. Chest is clear. Heart, S1, S2, no gallops. EXTREMITIES: Trace edema. Homans negative. LABORATORY DATA: White blood cell count 6, hematocrit 26.2, platelet count of 141,000. Glucose 62 this morning, 81 at 8 o'clock, 168 at 7:11 a.m. IMPRESSION: 1. Hypoglycemia, resolving. 2. Hypertension, controlled. 3. End-stage renal failure on hemodialysis. 4. Obstructive sleep apnea. 5. Obesity. 6. Cirrhosis and portal hypertension, status post hepatitis C treatment. 7. Underlying major depression, improved. 8. Status post thrombocytopenia, improved. 9. Urinary tract infection with Escherichia coli. PLAN: Per recommendation of [____], we will give 2 mg/kg of gentamicin. We will hold on Lantus insulin for today to see how the blood glucose levels are and start on a low dose. Dictated By: Ivan Brice MD /[email or web address]/[email or web address] /Document#: [id number]
[2017-03-14] MEDS: LACTULOSE 30ML CUP PO SCH (21:04)
[2017-03-14] MEDS: ESCITALOPRAM 10 MG TAB PO SCH (21:04)
[2017-03-14] MEDS: INSULIN GLARGINE [LANtus] 3 ML PEN SC SCH (21:09)
[2017-03-14] MEDS: INSULIN ASPART [NOVOLOG] 3 ML PEN SC SCH (21:10)
[2017-03-15] VITALS (12 sets, daily range): BP systolic 115–142; BP diastolic 56–65; PULSE 68–84; RESP 16–18
[2017-03-15] MEDS: ACCU-CHEK XX SCH ×2 (02:00→07:27)
[2017-03-15] MEDS: PANTOPRAZOLE (EC) 40 MG TAB PO SCH ×2 (06:38→17:45)
[2017-03-15] MEDS: INSULIN ASPART [NOVOLOG] 3 ML PEN SC SCH ×4 (07:55→20:33)
[2017-03-15] MEDS: ASPIRIN (EC) 81 MG TAB PO SCH (09:00)
--- NOTE | 2017-03-15 09:19 | RADRPT ---
Vent Rate: 75 bpm RR Interval: 0 msec MS Interval: 140 msec QRS Duration: 90 msec QT Interval: 476 msec QTC Interval: 531 msec P-R-T Newton: 58 - 23 - 43 degrees Normal sinus rhythm Prolonged QT Abnormal ECG Electronically Signed By: Sy Lira [id number]
[2017-03-15] MEDS: TRIMETHOPRIM/SULFAMETHOX (SS) TAB PO SCH (09:34)
[2017-03-15] MEDS: MULTIVITAMINS THERAPEUTIC TAB PO SCH (09:34)
[2017-03-15] MEDS: MULTIVIT/CA CARB/B CMPLX/FA TAB PO SCH (09:34)
[2017-03-15] MEDS: NIFEdipine (XL) 30 MG TAB PO SCH ×2 (09:34→20:30)
--- NOTE | 2017-03-15 12:14 | CONS ---
Date/Time of Note Date/Time of Note DATE: 03/15/17 TIME: 12:05 Assessment/Plan Assessment/Plan Additional Assessment/Plan 61 yom w/ Hep C cirrhosis, ESRD on HD, DM2, YEVGENIY, portal htn, YEVGENIY and other issues who presented b/c of "dizziness" and was found to have hypoglycemia. Called to see pt due to chest pressure. Pt's symptoms seem positional (worse supine, better upright), which raises the suspicion for a pericarditis. However , ECG is not c/w pericarditis, and his symptoms seem much less intense than what would be seen w/ pericarditis. No evidence of ACS (by labs or ECG). Would check echo. Can also check lexiscan tomorrow for further reassurance ( however, concern of GI artifact considering his obesity). Pt refuses aspirin due to prior GI bleed. He may not be a candidate for PCI if he cannot tolerate DAPT, in which case, the lexiscan would be for risk stratification. Consultation Date/Type/Reason Admit Date/Time Mar 13, 2017 at 01:58 Date of Consultation: Mar 15, 2017 Type of Consultation: Cardiology Reason for Consultation chest pressure Hx of Present Illness 61 yom w/ Hep C cirrhosis, ESRD on HD, DM2, YEVGENIY, portal htn, YEVGENIY and other issues who presented b/c of "dizziness" and was found to have hypoglycemia. During his hospital stay, pt notes mid-sternal chest pressure. It is 3-4/10 and brief. It is worse when lying down and better sitting up. He is currently chest pain free. His ECG has no ischemic ST changes. His troponins are negative x 3. He has seen Dr. Rashid on prior admissions. He had an angiogram by Dr. Sutton in 2009, which revealed no significant CAD. An echo done 10/2016 revealed EF 55-60%. Pt does not take aspirin due to a GI bleed. Past Medical History Hep C cirrhosis portal htn ESRD on HD DM 2 htn YEVGENIY Past Surgical History Past Surgical Hx: appendectomy, other Social History Smoking Status: Former smoker Exam/Review of Systems Vital Signs Vitals Vital Signs Date Time Temp Pulse Resp B/P Pulse Ox O2 Delivery O2 Flow Rate FiO2 03/15/17 08:13 77 03/15/17 08:11 98.0 18 127/58 93 03/14/17 14:29 Room Air Intake and Output 03/14/17 03/14/17 03/15/17 15:00 23:00 07:00 Intake Total 500 ml 720 ml 300 ml Output Total 3000 ml 0 ml Balance -2500 ml 720 ml 300 ml Exam Constitutional: alert, obese, No distress Head: atraumatic, normocephalic Eyes: EOMI, nl sclera Neck: supple, No jvd Respiratory: clear to auscultation Cardiovascular: other (1/6 MAGDALENO), regular rate and rhythm Gastrointestinal: other (obese) Extremities: other (trace to mild LE edema) Results 03-15-17 ECG - nsr @ 78, nl axis, no ischemic ST changes, no pathologic Q Result Diagram: 03/14/17 0616 03/14/17 0616 Results 24 hrs Laboratory Tests Test 03/14/17 17:15 03/14/17 17:19 03/14/17 20:52 03/15/17 05:48 Troponin I 0.022 Bedside Glucose 175 187 Lab Scanned Report BLOOD TRANSFUSION Test 03/15/17 06:33 03/15/17 08:34 Troponin I 0.039 Bedside Glucose 113 Medications Medications Current Medications Escitalopram Oxalate (Lexapro) 10 mg QHS PO Last administered on 03/14/17 21:04 ; Admin Dose 10 MG; Start 03/13/17 at 21:00 Insulin Glargine (Lantus) 10 unit QHS SC Last administered on 03/14/17 21:09; Admin Dose 10 UNIT; Start 03/13/17 at 21:00 Lactulose (Enulose) 20 gm QHS PO Last administered on 03/14/17 21:04; Admin Dose 20 GM; Start 03/13/17 at 21:00 Multivitamins Therapeutic (Theragran) 1 tab DAILY PO Last administered on 09:34; Admin Dose 1 TAB; Start 03/13/17 at 09:00 Pantoprazole (Protonix Tab) 40 mg BID@06,18 PO Last administered on 03/15/17 06 :38; Admin Dose 40 MG; Start 03/13/17 at 06:00 Trimethoprim/ Sulfamethoxazole (Bactrim (Ss)) 1 tab DAILY PO Last administered on 03/15/17 09:34; Admin Dose 1 TAB; Start 03/13/17 at 09:00 Miscellaneous Information 1 ea NOTE XX ; Start 03/13/17 at 04:30 Glucose (Glutose) 15 gm Q15M PRN PO DECREASED GLUCOSE; Start 03/13/17 at 04:30 Glucose (Glutose) 22.5 gm Q15M PRN PO DECREASED GLUCOSE; Start 03/13/17 at 04:30 Dextrose (D50w Syringe) 25 ml Q15M PRN IV DECREASED GLUCOSE; Start 03/13/17 at 04:30 Dextrose (D50w Syringe) 50 ml Q15M PRN IV DECREASED GLUCOSE; Start 03/13/17 at 04:30 Glucagon (Glucagen) 1 mg Q15M PRN IM DECREASED GLUCOSE; Start 03/13/17 at 04:30 Glucose (Glutose) 15 gm Q15M PRN BUCCAL DECREASED GLUCOSE; Start 03/13/17 at 04: 30 Nifedipine (Procardia Xl) 30 mg BID PO Last administered on 03/15/17 09:34; Admin Dose 30 MG; Start 03/13/17 at 21:00 Clonidine (Catapres) 0.1 mg Q8 PO Last administered on 03/15/17 06:39; Admin Dose 0.1 MG; Start 03/13/17 at 11:00 Multivit/Ca Carb/ B Cmplx/FA/Prenat (Lea-Tiara) 1 tab DAILY PO Last administered on 03/15/17 09:34; Admin Dose 1 TAB; Start 03/13/17 at 11:00 Epoetin Sean (Epogen (Esrd)) 10,000 units MoWeFr@17 SC Last administered on 03/13 18:29; Admin Dose 10,000 UNITS; Start 03/13/17 at 17:00 Clonidine (Catapres) 0.1 mg Q4H PRN PO SBP >160, DBP>110 Last administered on 17:21; Admin Dose 0.1 MG; Start 03/14/17 at 17:30 Aspirin (Halfprin) 81 mg DAILY PO ; Start 03/15/17 at 09:00 Diagnostic Test (Pha) (Accu-Chek) 1 ea 02 XX ; Start 03/15/17 at 02:00 Diagnostic Test (Pha) (Accu-Chek) 1 ea 02 XX ; Start 03/15/17 at 02:00 LESLEY MOREIRA Mar 15, 2017 12:14
--- NOTE | 2017-03-15 14:04 | CONS ---
Date/Time of Note Date/Time of Note DATE: 03/15/17 TIME: 14:02 Assessment/Plan Assessment/Plan Chief Complaint/Hosp Course # ESRD. tolerating HD well. Next HD tomorrow. # mild fluid overload # Hypoglycemia resolved # Cardiology eval noted # HTN controlled # Anemia. s/p transfusion today. Receiving JAGDEEP. Labs tomorrow. Problems: Consultation Date/Type/Reason Admit Date/Time Mar 13, 2017 at 01:58 Type of Consultation: Nephrology 24 HR Interval Summary Free Text/Dictation Complains of mild SOB, no CP Exam/Review of Systems Vital Signs Vitals Vital Signs Date Time Temp Pulse Resp B/P Pulse Ox O2 Delivery O2 Flow Rate FiO2 03/15/17 12:16 98.3 77 18 115/56 99 03/14/17 14:29 Room Air Intake and Output 03/14/17 03/14/17 03/15/17 15:00 23:00 07:00 Intake Total 500 ml 720 ml 300 ml Output Total 3000 ml 0 ml Balance -2500 ml 720 ml 300 ml Exam Constitutional: alert Neck: No jvd Respiratory: clear to auscultation Cardiovascular: regular rate and rhythm Gastrointestinal: non-tender, soft Extremities: edema Results Result Diagram: 03/14/17 0616 03/14/17 0616 Results 24 hrs Laboratory Tests Test 03/14/17 17:15 03/14/17 17:19 03/14/17 20:52 03/15/17 05:48 Troponin I 0.022 Bedside Glucose 175 187 Lab Scanned Report BLOOD TRANSFUSION Test 03/15/17 06:33 03/15/17 08:34 03/15/17 12:30 Troponin I 0.039 Bedside Glucose 113 204 Medications Medications Current Medications Escitalopram Oxalate (Lexapro) 10 mg QHS PO Last administered on 03/14/17 21:04 ; Admin Dose 10 MG; Start 03/13/17 at 21:00 Insulin Glargine (Lantus) 10 unit QHS SC Last administered on 03/14/17 21:09; Admin Dose 10 UNIT; Start 03/13/17 at 21:00 Lactulose (Enulose) 20 gm QHS PO Last administered on 03/14/17 21:04; Admin Dose 20 GM; Start 03/13/17 at 21:00 Multivitamins Therapeutic (Theragran) 1 tab DAILY PO Last administered on 09:34; Admin Dose 1 TAB; Start 03/13/17 at 09:00 Pantoprazole (Protonix Tab) 40 mg BID@06,18 PO Last administered on 03/15/17 06 :38; Admin Dose 40 MG; Start 03/13/17 at 06:00 Trimethoprim/ Sulfamethoxazole (Bactrim (Ss)) 1 tab DAILY PO Last administered on 03/15/17 09:34; Admin Dose 1 TAB; Start 03/13/17 at 09:00 Miscellaneous Information 1 ea NOTE XX ; Start 03/13/17 at 04:30 Glucose (Glutose) 15 gm Q15M PRN PO DECREASED GLUCOSE; Start 03/13/17 at 04:30 Glucose (Glutose) 22.5 gm Q15M PRN PO DECREASED GLUCOSE; Start 03/13/17 at 04:30 Dextrose (D50w Syringe) 25 ml Q15M PRN IV DECREASED GLUCOSE; Start 03/13/17 at 04:30 Dextrose (D50w Syringe) 50 ml Q15M PRN IV DECREASED GLUCOSE; Start 03/13/17 at 04:30 Glucagon (Glucagen) 1 mg Q15M PRN IM DECREASED GLUCOSE; Start 03/13/17 at 04:30 Glucose (Glutose) 15 gm Q15M PRN BUCCAL DECREASED GLUCOSE; Start 03/13/17 at 04: 30 Nifedipine (Procardia Xl) 30 mg BID PO Last administered on 03/15/17 09:34; Admin Dose 30 MG; Start 03/13/17 at 21:00 Clonidine (Catapres) 0.1 mg Q8 PO Last administered on 03/15/17 06:39; Admin Dose 0.1 MG; Start 03/13/17 at 11:00 Multivit/Ca Carb/ B Cmplx/FA/Prenat (Lea-Tiara) 1 tab DAILY PO Last administered on 03/15/17 09:34; Admin Dose 1 TAB; Start 03/13/17 at 11:00 Epoetin Sean (Epogen (Esrd)) 10,000 units MoWeFr@17 SC Last administered on 03/13 18:29; Admin Dose 10,000 UNITS; Start 03/13/17 at 17:00 Clonidine (Catapres) 0.1 mg Q4H PRN PO SBP >160, DBP>110 Last administered on t 17:21; Admin Dose 0.1 MG; Start 03/14/17 at 17:30 Aspirin (Halfprin) 81 mg DAILY PO ; Start 03/15/17 at 09:00 Diagnostic Test (Pha) (Accu-Chek) 1 ea 02 XX ; Start 03/15/17 at 02:00 Diagnostic Test (Pha) (Accu-Chek) 1 ea 02 XX ; Start 03/15/17 at 02:00 SHANA LEMA MD Mar 15, 2017 14:04
--- NOTE | 2017-03-15 19:17 | PN ---
DATE: 03/15/2017 SUBJECTIVE: The patient had developed chest pain last evening. This was also related to position and did not have any palpitations and troponin times 2 was negative. I have requested consultation with Dr. Jc for cardiac evaluation as patient is at high risk given the metabolic syndrome and history of hyperlipidemia. The patient is not on statin in view of his underlying liver disease. The patient is unable to tolerate aspirin because of GI bleed. The patient had also refused aspirin as ordered. PHYSICAL EXAMINATION: GENERAL: The patient is presently in no acute distress. VITAL SIGNS: Temperature 98.3, blood pressure 115/56, O2 sat 99 percent on room air. CHEST: Clinically clear. HEART: S1, S2. No murmur or gallops, no costochondral tenderness. ABDOMEN: Soft. No definite tenderness, obese anterior abdominal wall. EXTREMITIES: No edema. Homans negative. Troponin times 2 is negative. LABORATORY AND DIAGNOSTIC DATA: Troponin times 2 is negative. Blood glucose levels 113 at 12:04 today. The patient has been scheduled for Lexiscan tomorrow. IMPRESSION: 1. Atypical chest pain. The patient is at high risk for coronary artery disease. For Lexiscan tomorrow. 2. Diabetes mellitus type 2, well controlled, status post hypoglycemia. Will opt to hold on Lantus, discontinue with insulin coverage for mild heart rhythm. 3. End-stage renal failure on hemodialysis. For dialysis tomorrow. 4. Hypertension. Well controlled. 5. Severe anemia. 6. Status post thrombocytopenia. 7. Status post treatment for urinary tract infection. Last dose of gentamicin given yesterday. PLAN: Will continue present observation. Lexiscan tomorrow, and then re-evaluate after cardiac workup. Dictated By: Ivan Brice MD /[email or web address]/selena /Document#: [id number] DENILSON
[2017-03-15] MEDS: ESCITALOPRAM 10 MG TAB PO SCH (20:29)
[2017-03-15] MEDS: LACTULOSE 30ML CUP PO SCH (20:30)
[2017-03-15] MEDS: INSULIN GLARGINE [LANtus] 3 ML PEN SC SCH (20:42)
[2017-03-16] VITALS (19 sets, daily range): BP systolic 118–177; BP diastolic 55–83; PULSE 71–90; RESP 18–20
[2017-03-16] MEDS: ACCU-CHEK XX SCH ×2 (02:00)
[2017-03-16] MEDS: PANTOPRAZOLE (EC) 40 MG TAB PO SCH ×2 (06:15→18:32)
[2017-03-16 07:12] LABS: ABNORMAL IP MESSAGE 1; HEMOGLOBIN 8.9 g/dl (14.0-18.0); MEAN CORPUSCULAR HGB CONC 31.8 g/dl (32.0-37.0); MEAN CORPUSCULAR VOLUME 88.1 fl (82.0-101.0); MEAN PLATELET VOLUME 10.4 fl (7.4-10.4); PLATELET COUNT 93 10^3/UL (140-415); POSITIVE DIFF @See below; RED BLOOD COUNT 3.18 10^6/ul (4.70-6.10); RED CELL DISTRIBUTION WIDTH 18.2 % (11.5-14.5)
[2017-03-16 07:26] LABS: ALBUMIN 2.6 g/dl (3.3-4.9); ALBUMIN/GLOBULIN RATIO 0.66; BILIRUBIN,INDIRECT 0.5 mg/dl (0-1.1); BILIRUBIN,TOTAL 0.5 mg/dl (0.2-1.3); CREATININE 5.22 mg/dl (0.61-1.24); POTASSIUM 4.2 mmol/L (3.5-5.1); TOTAL PROTEIN 6.5 g/dl (6.1-8.1)
[2017-03-16] MEDS: INSULIN ASPART [NOVOLOG] 3 ML PEN SC SCH ×4 (07:55→20:47)
[2017-03-16] MEDS: ASPIRIN (EC) 81 MG TAB PO SCH (09:00)
[2017-03-16 09:19] LABS: ANISOCYTOSIS 1+ (0-0); EOSINOPHILS % (M) 5 % (0-7); GIANT THROMBO% (M) 1 % (0-0); HYPOCHROMASIA 1+ (0-0); MONOCYTES % (M) 9 % (0-11); PLATELET ESTIMATE DECREASED; POLYCHROMASIA 3+ (0-0)
[2017-03-16] MEDS: TRIMETHOPRIM/SULFAMETHOX (SS) TAB PO SCH (09:27)
[2017-03-16] MEDS: MULTIVIT/CA CARB/B CMPLX/FA TAB PO SCH (09:27)
[2017-03-16] MEDS: MULTIVITAMINS THERAPEUTIC TAB PO SCH (09:27)
[2017-03-16] MEDS: NIFEdipine (XL) 30 MG TAB PO SCH ×2 (09:27→20:41)
[2017-03-16] MEDS ORDERED: REGADENOSON 0.4 MG/5 ML SYG ONE (11:46)
--- NOTE | 2017-03-16 12:34 | CONS ---
Date/Time of Note Date/Time of Note DATE: 03/16/17 TIME: 12:31 Assessment/Plan Assessment/Plan Chief Complaint/Hosp Course 61 yom w/ Hep C cirrhosis, ESRD on HD, DM2, YEVGENIY, portal htn, YEVGENIY and other issues who presented b/c of "dizziness" and was found to have hypoglycemia. During his hospital stay, pt notes mid-sternal chest pressure. It is 3-4/10 and brief. It is worse when lying down and better sitting up. He is currently chest pain free. His ECG has no ischemic ST changes. His troponins are negative x 3. He has seen Dr. Rashid on prior admissions. He had an angiogram by Dr. Sutton in 2009, which revealed no significant CAD. An echo done 10/2016 revealed EF 55-60%. Pt does not take aspirin due to a GI bleed. No further episodes of chest pressure. Lexiscan and echo today. If lexiscan is negative, no further cardiac w/u. Problems: Consultation Date/Type/Reason Admit Date/Time Mar 15, 2017 at 15:14 Initial Consult Date 03/15/17 Type of Consultation: Cardiology Reason for Consultation chest pressure 24 HR Interval Summary Free Text/Dictation Still has sob but denies any further chest pressure. Exam/Review of Systems Vital Signs Vitals Vital Signs Date Time Temp Pulse Resp B/P Pulse Ox O2 Delivery O2 Flow Rate FiO2 03/16/17 12:12 98.0 77 18 122/56 98 03/16/17 06:30 Room Air Intake and Output 03/15/17 03/15/17 03/16/17 15:00 23:00 07:00 Intake Total 500 ml 360 ml Balance 500 ml 360 ml Exam Constitutional: alert, obese, No distress Neck: supple, No jvd Respiratory: other (cta b/l anteriorly) Cardiovascular: other (2/6 MAGDALENO), regular rate and rhythm Gastrointestinal: other (obese), soft Extremities: other (mild LE edema) Results Result Diagram: 03/16/17 0616 03/16/17 0616 Results 24 hrs Laboratory Tests Test 03/15/17 17:43 03/15/17 20:33 03/16/17 05:45 03/16/17 06:16 Bedside Glucose 181 154 Stool Occult Blood POSITIVE White Blood Count 5.0 Red Blood Count 3.18 L Hemoglobin 8.9 L Hematocrit 28.0 L Mean Corpuscular Volume 88.1 Mean Corpuscular Hemoglobin 28.0 L Mean Corpuscular Hemoglobin Concent 31.8 L Red Cell Distribution Width 18.2 H Platelet Count 93 #L Mean Platelet Volume 10.4 Neutrophils % Segmented Neutrophils % (Manual) 69 Band Neutrophils % (Manual) 1 Lymphocytes % Lymphocytes % (Manual) 16 Monocytes % Monocytes % (Manual) 9 Eosinophils % Eosinophils % (Manual) 5 Basophils % Nucleated Red Blood Cells % 0.0 Neutrophils # (Manual) 3.5 Band Neutrophils # 0.0 Absolute Lymphocytes (Manual) 0.8 Lymphocytes # Monocytes # Absolute Monocytes (Manual) 0.4 Eosinophils # Basophils # Nucleated Red Blood Cells # Thrombocytosis 1 H Platelet Estimate DECREASED Polychromasia 3+ Hypochromasia 1+ Anisocytosis 1+ Sodium Level 135 Potassium Level 4.2 Chloride Level 101 Carbon Dioxide Level 28 Anion Gap 10 Blood Urea Nitrogen 35 H Creatinine 5.22 H Glucose Level 98 Calcium Level 8.0 L Total Bilirubin 0.5 Direct Bilirubin 0.00 Indirect Bilirubin 0.5 Aspartate Amino Transf (AST/SGOT) 40 Alanine Aminotransferase (ALT/SGPT) 33 Alkaline Phosphatase 106 Total Protein 6.5 Albumin 2.6 L Globulin 3.90 H Albumin/Globulin Ratio 0.66 Test 03/16/17 08:18 Bedside Glucose 110 Medications Medications Current Medications Escitalopram Oxalate (Lexapro) 10 mg QHS PO Last administered on 03/15/17 20:29 ; Admin Dose 10 MG; Start 03/13/17 at 21:00 Insulin Glargine (Lantus) 10 unit QHS SC Last administered on 03/15/17 20:42; Admin Dose 10 UNIT; Start 03/13/17 at 21:00 Lactulose (Enulose) 20 gm QHS PO Last administered on 03/15/17 20:30; Admin Dose 20 GM; Start 03/13/17 at 21:00 Multivitamins Therapeutic (Theragran) 1 tab DAILY PO Last administered on 09:27; Admin Dose 1 TAB; Start 03/13/17 at 09:00 Pantoprazole (Protonix Tab) 40 mg BID@06,18 PO Last administered on 03/16/17 06 :15; Admin Dose 40 MG; Start 03/13/17 at 06:00 Trimethoprim/ Sulfamethoxazole (Bactrim (Ss)) 1 tab DAILY PO Last administered on 03/16/17 09:27; Admin Dose 1 TAB; Start 03/13/17 at 09:00 Miscellaneous Information 1 ea NOTE XX ; Start 03/13/17 at 04:30 Glucose (Glutose) 15 gm Q15M PRN PO DECREASED GLUCOSE; Start 03/13/17 at 04:30 Glucose (Glutose) 22.5 gm Q15M PRN PO DECREASED GLUCOSE; Start 03/13/17 at 04:30 Dextrose (D50w Syringe) 25 ml Q15M PRN IV DECREASED GLUCOSE; Start 03/13/17 at 04:30 Dextrose (D50w Syringe) 50 ml Q15M PRN IV DECREASED GLUCOSE; Start 03/13/17 at 04:30 Glucagon (Glucagen) 1 mg Q15M PRN IM DECREASED GLUCOSE; Start 03/13/17 at 04:30 Glucose (Glutose) 15 gm Q15M PRN BUCCAL DECREASED GLUCOSE; Start 03/13/17 at 04: 30 Nifedipine (Procardia Xl) 30 mg BID PO Last administered on 03/16/17 09:27; Admin Dose 30 MG; Start 03/13/17 at 21:00 Clonidine (Catapres) 0.1 mg Q8 PO Last administered on 03/16/17 06:15; Admin Dose 0.1 MG; Start 03/13/17 at 11:00 Multivit/Ca Carb/ B Cmplx/FA/Prenat (Lea-Tiara) 1 tab DAILY PO Last administered on 03/16/17 09:27; Admin Dose 1 TAB; Start 03/13/17 at 11:00 Epoetin Sean (Epogen (Esrd)) 10,000 units MoWeFr@17 SC Last administered on 03/13 18:29; Admin Dose 10,000 UNITS; Start 03/13/17 at 17:00 Clonidine (Catapres) 0.1 mg Q4H PRN PO SBP >160, DBP>110 Last administered on 17:21; Admin Dose 0.1 MG; Start 03/14/17 at 17:30 Aspirin (Halfprin) 81 mg DAILY PO ; Start 03/15/17 at 09:00 Diagnostic Test (Pha) (Accu-Chek) 1 ea 02 XX ; Start 03/15/17 at 02:00 Diagnostic Test (Pha) (Accu-Chek) 1 ea 02 XX ; Start 03/15/17 at 02:00 LESLEY MOREIRA Mar 16, 2017 12:34
--- NOTE | 2017-03-16 13:29 | RADRPT ---
Echocardiogram Report Patient Name: CYNTHIA STEINER Gender: Male Date: 1955 Study Date: 16-Mar-2017 Vending Stand Supervisor: Elias Espino [facility] Location: 51 Ref. Physician: JOSE MCCAIN Quality: Adequate Procedures: Transthoracic echocardiogram with complete 2D, M-Mode, and doppler examination. Indications: Chest Pain. 2D/M Mode Doppler Measurement Value Normal Ranges Measurement Value Normal Ranges LVIDd 2D 6.8 3.5 - 5.6 cm LAM Vmax 1.7 cm2 LVIDs 2D 4.2 2.1 - 4.1 cm LAM VTI 2.0 cm2 FS 2D 38.9 % AV Mean Alonso 1.6 m/sec LVPWd 2D 1.1 0.6 - 1.1 cm AV Mean PG 12.0 mmHg IVSd 2D 1.1 0.6 - 1.1 cm AV Peak Alonso 2.3 m/sec IVS/LVPW 2D 1.0 AV Peak PG 21.0 mmHg AoR Diam 2D 4.0 2.0 - 3.7 cm AV VTI 41.0 cm LA/Ao 2D 1 0 - 1 LVOT Mean Alonso 0.9 m/sec EDV 2D 320.0 cm3 LVOT Mean PG 4.0 mmHg ESV 2D 73.0 cm3 LVOT Peak Alonso 1.2 m/sec LA Dimen 2D 4.8 2.3 - 4.0 cm LVOT Peak PG 6.0 mmHg LVOT Diam 2.0 cm LVOT VTI 26.2 cm LVOT Area 3.1 cm2 MV E Peak Alonso 1.4 m/sec MV A Peak Alonso 1.1 m/sec MV E/A 1.3 MV Decel Time 116 msec MV E/A 1.3 TR Peak Alonso 2.7 m/sec TR Peak PG 30.0 mmHg RVSP 38.0 mmHg Findings Left Ventricle: Normal left ventricular systolic function. Mild concentric left ventricular hypertrophy. Moderate enlargement of left ventricle cavity. Ejection fraction is visually estimated at 55 %. Right Ventricle: Normal right ventricular size. Normal right ventricular systolic function. Left Atrium: There is moderate enlargement of left atrium. Right Atrium: The right atrium is normal in size. Mitral Valve: Mitral valve leaflets appear mildly thickened. Mild mitral annular calcification. Mild mitral valve regurgitation. Aortic Valve: Aortic valve Max velocity 2.29 m/sec. Max PG 21.00 mmHg. Mean PG 12.00 mmHg. Aortic valve area 2.01 cm2. Aortic sclerosis without stenosis. Trace to mild aortic valve regurgitation. Tricuspid Valve: Normal appearance of the tricuspid valve. Estimated peak PA systolic pressure 38 mmHg. There is mild tricuspid regurgitation. Pulmonic Valve: Normal pulmonic valve appearance. There is trace pulmonic regurgitation. Pericardium: Normal pericardium with no significant pericardial effusion. Aorta: Normal aortic root. IVC: Dilated IVC with respiratory collapse consistent with elevated right atrial pressure. Conclusions 1.1. Normal left ventricular function with EF 55-60%. No focal wall motion abnormalities. 2.2. Normal right ventricular size and function. 3.3. Abnormal diastolic function. 4.4. No severe valvular disease. 5.5. Mildly elevated estimated pulmonary pressures (38 mmHg). 6.6. No pericardial effusion. Electronically Signed By: Jose Mccain 16-Mar-2017 13:29:09 -0700 Patient Name: CYNTHIA STEINER Study Date: 16-Mar-2017 [id number]
--- NOTE | 2017-03-16 16:21 | RADRPT ---
PROCEDURE: Lexiscan myocardial perfusion study CLINICAL INDICATION: 61 -year-old patient complaining of chest pain. TECHNIQUE: Lexiscan 0.4 mg intravenously separate acquisition gated myocardial perfusion SPECT usi ng Tc 99m Myoview 34.1 mCi intravenously at stress and Tc-99m Myoview, 10.1 mCi intravenously at res t was performed using the rest/stress sequence. Poststress Myoview SPECT images were obtained in th e supine position. COMPARISON: No prior studies. FINDINGS: Perfusion images reveal a small to moderate size mild in degree predominantly nonreversible perfusio n defect in the inferoapical and inferior wall. Lexiscan post stress gated SPECT images demonstrate no wall motion abnormalities. IMPRESSION: 1. The type and distribution of the scintigraphic abnormalities are most consistent with a small to moderate size predominantly nonreversible perfusion defect in the inferoapical and inferior irvin. 2. No wall motion abnormalities. 3. The left ventricle ejection fraction at stress is 52%. RPTAT: QQ .Nasreen Goyal MD, MD Date Time Electronically viewed and signed by .Nasreen Goyal MD, MD on 03/16/2017 16:20 .L/
--- NOTE | 2017-03-16 17:17 | PN ---
DATE: 03/16/2017 SUBJECTIVE DATA: The patient presently getting hemodialysis. Denies any chest pains. Status post Lexiscan results pending. OBJECTIVE DATA: VITAL SIGNS: Temperature 98.0, blood pressure 122/56, and O2 sat 98 percent on room air. NECK: JVD is not increased. CHEST: Clinically clear. HEART: S1, S2. No murmur or gallops. ABDOMEN: Soft, nontender. No hepatosplenomegaly. EXTREMITIES: Trace edema. Taylor's negative. LABORATORY: WBC count 5.0, hematocrit 28, and platelets 92,000. Potassium 4.2, blood glucose levels 98, 110 and 120 today. IMPRESSION: 1. Atypical chest pain. So far, no evidence of acute coronary event. Lexiscan results pending. 2. Diabetes mellitus type 2, well controlled, status post hypoglycemia. 3. End-stage renal failure on hemodialysis. 4. Hypertension, controlled. 5. Severe anemia. 6. Status post thrombocytopenia. 7. Status post treatment for urinary tract infection (UTI). Last dose gentamicin given 2 days prior. PLAN: Continue observation overnight and if patient is stable, consider discharge in a.m. after discussion with Dr. Castro. We will also need to consider taking the PermCath out before patient is discharged. Dictated By: Ivan Brice MD /[email or web address]/preston /Document#: [id number]
--- NOTE | 2017-03-16 18:22 | CONS ---
Date/Time of Note Date/Time of Note DATE: 03/16/17 TIME: 18:19 Assessment/Plan Assessment/Plan Chief Complaint/Hosp Course # ESRD. tolerating HD well. Next HD tomorrow, Thursday to resume his outpatient schedule # mild fluid overload, still has edema # Hypoglycemia resolved # Cardiology eval noted, s/p stress test today # HTN controlled # Anemia. s/p transfusion. monitor Hb Problems: Consultation Date/Type/Reason Admit Date/Time Mar 15, 2017 at 15:14 Type of Consultation: Nephrology 24 HR Interval Summary Free Text/Dictation The patient is alert, sitting at bedside. Denies CP or SOB Exam/Review of Systems Vital Signs Vitals Vital Signs Date Time Temp Pulse Resp B/P Pulse Ox O2 Delivery O2 Flow Rate FiO2 03/16/17 17:21 82 19 03/16/17 16:03 98.0 165/75 98 03/16/17 06:30 Room Air Intake and Output 03/15/17 03/15/17 03/16/17 15:00 23:00 07:00 Intake Total 500 ml 360 ml Balance 500 ml 360 ml Exam Neck: No jvd Respiratory: clear to auscultation Cardiovascular: regular rate and rhythm Gastrointestinal: non-tender Extremities: edema Results Result Diagram: 03/16/17 0616 03/16/17 0616 Results 24 hrs Laboratory Tests Test 03/15/17 20:33 03/16/17 05:45 03/16/17 06:16 03/16/17 08:18 Bedside Glucose 154 110 Stool Occult Blood POSITIVE White Blood Count 5.0 Red Blood Count 3.18 L Hemoglobin 8.9 L Hematocrit 28.0 L Mean Corpuscular Volume 88.1 Mean Corpuscular Hemoglobin 28.0 L Mean Corpuscular Hemoglobin Concent 31.8 L Red Cell Distribution Width 18.2 H Platelet Count 93 #L Mean Platelet Volume 10.4 Neutrophils % Segmented Neutrophils % (Manual) 69 Band Neutrophils % (Manual) 1 Lymphocytes % Lymphocytes % (Manual) 16 Monocytes % Monocytes % (Manual) 9 Eosinophils % Eosinophils % (Manual) 5 Basophils % Nucleated Red Blood Cells % 0.0 Neutrophils # (Manual) 3.5 Band Neutrophils # 0.0 Absolute Lymphocytes (Manual) 0.8 Lymphocytes # Monocytes # Absolute Monocytes (Manual) 0.4 Eosinophils # Basophils # Nucleated Red Blood Cells # Thrombocytosis 1 H Platelet Estimate DECREASED Polychromasia 3+ Hypochromasia 1+ Anisocytosis 1+ Sodium Level 135 Potassium Level 4.2 Chloride Level 101 Carbon Dioxide Level 28 Anion Gap 10 Blood Urea Nitrogen 35 H Creatinine 5.22 H Glucose Level 98 Calcium Level 8.0 L Total Bilirubin 0.5 Direct Bilirubin 0.00 Indirect Bilirubin 0.5 Aspartate Amino Transf (AST/SGOT) 40 Alanine Aminotransferase (ALT/SGPT) 33 Alkaline Phosphatase 106 Total Protein 6.5 Albumin 2.6 L Globulin 3.90 H Albumin/Globulin Ratio 0.66 Test 03/16/17 13:20 Bedside Glucose 120 Medications Medications Current Medications Escitalopram Oxalate (Lexapro) 10 mg QHS PO Last administered on 03/15/17 20:29 ; Admin Dose 10 MG; Start 03/13/17 at 21:00 Insulin Glargine (Lantus) 10 unit QHS SC Last administered on 03/15/17 20:42; Admin Dose 10 UNIT; Start 03/13/17 at 21:00 Lactulose (Enulose) 20 gm QHS PO Last administered on 03/15/17 20:30; Admin Dose 20 GM; Start 03/13/17 at 21:00 Multivitamins Therapeutic (Theragran) 1 tab DAILY PO Last administered on 09:27; Admin Dose 1 TAB; Start 03/13/17 at 09:00 Pantoprazole (Protonix Tab) 40 mg BID@06,18 PO Last administered on 03/16/17 06 :15; Admin Dose 40 MG; Start 03/13/17 at 06:00 Trimethoprim/ Sulfamethoxazole (Bactrim (Ss)) 1 tab DAILY PO Last administered on 03/16/17 09:27; Admin Dose 1 TAB; Start 03/13/17 at 09:00 Miscellaneous Information 1 ea NOTE XX ; Start 03/13/17 at 04:30 Glucose (Glutose) 15 gm Q15M PRN PO DECREASED GLUCOSE; Start 03/13/17 at 04:30 Glucose (Glutose) 22.5 gm Q15M PRN PO DECREASED GLUCOSE; Start 03/13/17 at 04:30 Dextrose (D50w Syringe) 25 ml Q15M PRN IV DECREASED GLUCOSE; Start 03/13/17 at 04:30 Dextrose (D50w Syringe) 50 ml Q15M PRN IV DECREASED GLUCOSE; Start 03/13/17 at 04:30 Glucagon (Glucagen) 1 mg Q15M PRN IM DECREASED GLUCOSE; Start 03/13/17 at 04:30 Glucose (Glutose) 15 gm Q15M PRN BUCCAL DECREASED GLUCOSE; Start 03/13/17 at 04: 30 Nifedipine (Procardia Xl) 30 mg BID PO Last administered on 03/16/17 09:27; Admin Dose 30 MG; Start 03/13/17 at 21:00 Clonidine (Catapres) 0.1 mg Q8 PO Last administered on 03/16/17 06:15; Admin Dose 0.1 MG; Start 03/13/17 at 11:00 Multivit/Ca Carb/ B Cmplx/FA/Prenat (Lea-Tiara) 1 tab DAILY PO Last administered on 03/16/17 09:27; Admin Dose 1 TAB; Start 03/13/17 at 11:00 Epoetin Sean (Epogen (Esrd)) 10,000 units MoWeFr@17 SC Last administered on 03/13 18:29; Admin Dose 10,000 UNITS; Start 03/13/17 at 17:00 Clonidine (Catapres) 0.1 mg Q4H PRN PO SBP >160, DBP>110 Last administered on 17:21; Admin Dose 0.1 MG; Start 03/14/17 at 17:30 Aspirin (Halfprin) 81 mg DAILY PO ; Start 03/15/17 at 09:00 Diagnostic Test (Pha) (Accu-Chek) 1 ea 02 XX ; Start 03/15/17 at 02:00 Diagnostic Test (Pha) (Accu-Chek) 1 ea 02 XX ; Start 03/15/17 at 02:00 SHANA LEMA MD Mar 16, 2017 18:22
[2017-03-16] MEDS: EPOETIN 10000 UNITS/1 ML INJ (ESRD) SC SCH (18:41)
[2017-03-16] MEDS: LACTULOSE 30ML CUP PO SCH (20:39)
[2017-03-16] MEDS: ESCITALOPRAM 10 MG TAB PO SCH (20:40)
[2017-03-16] MEDS: INSULIN GLARGINE [LANtus] 3 ML PEN SC SCH (20:48)
[2017-03-17] VITALS (9 sets, daily range): BP systolic 119–145; BP diastolic 58–68; PULSE 68–82; RESP 18
[2017-03-17] MEDS: ACCU-CHEK XX SCH ×2 (02:16)
[2017-03-17] MEDS: PANTOPRAZOLE (EC) 40 MG TAB PO SCH (05:37)
[2017-03-17 07:51] LABS: ABNORMAL IP MESSAGE 1; BASOPHILS % 0.4 % (0.0-2.0); EOSINOPHILS # 0.2 10^3/ul (0.0-0.5); EOSINOPHILS % 4.4 % (0.0-7.0); HEMATOCRIT 26.3 % (42.0-52.0); HEMOGLOBIN 8.3 g/dl (14.0-18.0); LYMPHOCYTES # 1.2 10^3/ul (0.8-2.9); LYMPHOCYTES % 24.3 % (15.0-51.0); MEAN CORPUSCULAR HEMOGLOBIN 27.8 pg (29.0-33.0); MEAN CORPUSCULAR HGB CONC 31.6 g/dl (32.0-37.0); MONOCYTE # 0.4 10^3/ul (0.3-0.9); MONOCYTES % 8.5 % (0.0-11.0); PLATELET COUNT 84 10^3/UL (140-415); POSITIVE DIFF @See below; RED BLOOD COUNT 2.99 10^6/ul (4.70-6.10); RED CELL DISTRIBUTION WIDTH 18.3 % (11.5-14.5); WHITE BLOOD COUNT 4.7 10^3/ul (4.8-10.8)
[2017-03-17] MEDS: ASPIRIN (EC) 81 MG TAB PO SCH (08:38)
[2017-03-17] MEDS: TRIMETHOPRIM/SULFAMETHOX (SS) TAB PO SCH (08:38)
[2017-03-17] MEDS: MULTIVITAMINS THERAPEUTIC TAB PO SCH (08:47)
[2017-03-17] MEDS: INSULIN ASPART [NOVOLOG] 3 ML PEN SC SCH ×2 (08:47→11:50)
[2017-03-17] MEDS: MULTIVIT/CA CARB/B CMPLX/FA TAB PO SCH (08:47)
[2017-03-17] MEDS: NIFEdipine (XL) 30 MG TAB PO SCH (08:48)
--- NOTE | 2017-03-17 08:48 | CONS ---
Date/Time of Note Date/Time of Note DATE: 03/17/17 TIME: 08:42 Assessment/Plan Assessment/Plan Chief Complaint/Hosp Course 1. End-stage renal disease on maintenance hemodialysis Thursday. 2. Cirrhosis of the liver 3. Sleep apnea 4. Thrombocytopenia 5. History of GI bleeding 6. Chest pain This patient was dialyzed yesterday. He is normally dialyzed Thursday. He does feel weak and says that he feels dizzy when he sits up or stands. This has been a chronic problem. The patient could be discharged today and then go for hemodialysis on 03/19/2017 in the chronic dialysis unit at [facility] in [place]. I will follow the patient as an outpatient. Problems: Consultation Date/Type/Reason Admit Date/Time Mar 15, 2017 at 15:14 Initial Consult Date 03/15/17 Type of Consultation: Nephrology 24 HR Interval Summary Free Text/Dictation The patient complains of feeling dizzy. He did have dialysis yesterday. His usual day for dialysis is today and Thursday. Exam/Review of Systems Vital Signs Vitals Vital Signs Date Time Temp Pulse Resp B/P Pulse Ox O2 Delivery O2 Flow Rate FiO2 03/17/17 08:08 78 03/17/17 08:01 99.3 18 119/58 94 03/16/17 06:30 Room Air Intake and Output 03/16/17 03/16/17 03/17/17 15:00 23:00 07:00 Intake Total 700 ml 240 ml Output Total 100 ml Balance 600 ml 240 ml Exam Constitutional: alert, frail, obese, oriented Respiratory: clear to auscultation, normal air movement Cardiovascular: regular rate and rhythm Gastrointestinal: non-tender, soft Musculoskeletal: nl extremities to inspection Results Result Diagram: 03/17/17 0717 03/16/17 0616 Results 24 hrs Laboratory Tests Test 03/16/17 13:20 03/16/17 18:29 03/16/17 20:43 03/17/17 02:10 Bedside Glucose 120 168 186 199 Test 03/17/17 07:17 White Blood Count 4.7 L Red Blood Count 2.99 L Hemoglobin 8.3 L Hematocrit 26.3 L Mean Corpuscular Volume 88.0 Mean Corpuscular Hemoglobin 27.8 L Mean Corpuscular Hemoglobin Concent 31.6 L Red Cell Distribution Width 18.3 H Platelet Count 84 L Mean Platelet Volume 11.0 H Neutrophils % 62.0 Lymphocytes % 24.3 Monocytes % 8.5 Eosinophils % 4.4 Basophils % 0.4 Nucleated Red Blood Cells % 0.0 Neutrophils # (Manual) 2.9 Lymphocytes # 1.2 Monocytes # 0.4 Eosinophils # 0.2 Basophils # 0.0 Nucleated Red Blood Cells # 0.0 Medications Medications Current Medications Escitalopram Oxalate (Lexapro) 10 mg QHS PO Last administered on 03/16/17 20:40 ; Admin Dose 10 MG; Start 03/13/17 at 21:00 Insulin Glargine (Lantus) 10 unit QHS SC Last administered on 03/16/17 20:48; Admin Dose 10 UNIT; Start 03/13/17 at 21:00 Lactulose (Enulose) 20 gm QHS PO Last administered on 03/16/17 20:39; Admin Dose 20 GM; Start 03/13/17 at 21:00 Multivitamins Therapeutic (Theragran) 1 tab DAILY PO Last administered on 09:27; Admin Dose 1 TAB; Start 03/13/17 at 09:00 Pantoprazole (Protonix Tab) 40 mg BID@06,18 PO Last administered on 03/17/17 05 :37; Admin Dose 40 MG; Start 03/13/17 at 06:00 Trimethoprim/ Sulfamethoxazole (Bactrim (Ss)) 1 tab DAILY PO Last administered on 03/16/17 09:27; Admin Dose 1 TAB; Start 03/13/17 at 09:00 Miscellaneous Information 1 ea NOTE XX ; Start 03/13/17 at 04:30 Glucose (Glutose) 15 gm Q15M PRN PO DECREASED GLUCOSE; Start 03/13/17 at 04:30 Glucose (Glutose) 22.5 gm Q15M PRN PO DECREASED GLUCOSE; Start 03/13/17 at 04:30 Dextrose (D50w Syringe) 25 ml Q15M PRN IV DECREASED GLUCOSE; Start 03/13/17 at 04:30 Dextrose (D50w Syringe) 50 ml Q15M PRN IV DECREASED GLUCOSE; Start 03/13/17 at 04:30 Glucagon (Glucagen) 1 mg Q15M PRN IM DECREASED GLUCOSE; Start 03/13/17 at 04:30 Glucose (Glutose) 15 gm Q15M PRN BUCCAL DECREASED GLUCOSE; Start 03/13/17 at 04: 30 Nifedipine (Procardia Xl) 30 mg BID PO Last administered on 03/16/17 20:41; Admin Dose 30 MG; Start 03/13/17 at 21:00 Clonidine (Catapres) 0.1 mg Q8 PO Last administered on 03/17/17 05:37; Admin Dose 0.1 MG; Start 03/13/17 at 11:00 Multivit/Ca Carb/ B Cmplx/FA/Prenat (Lea-Tiara) 1 tab DAILY PO Last administered on 03/16/17 09:27; Admin Dose 1 TAB; Start 03/13/17 at 11:00 Epoetin Sean (Epogen (Esrd)) 10,000 units MoWeFr@17 SC Last administered on 03/16 18:41; Admin Dose 10,000 UNITS; Start 03/13/17 at 17:00 Clonidine (Catapres) 0.1 mg Q4H PRN PO SBP >160, DBP>110 Last administered on 17:21; Admin Dose 0.1 MG; Start 03/14/17 at 17:30 Aspirin (Halfprin) 81 mg DAILY PO ; Start 03/15/17 at 09:00 Diagnostic Test (Pha) (Accu-Chek) 1 ea 02 XX Last administered on 03/17/17 02: 16; Admin Dose 1 EA; Start 03/15/17 at 02:00 Diagnostic Test (Pha) (Accu-Chek) 1 ea 02 XX Last administered on 03/17/17 02: 16; Admin Dose 1 EA; Start 03/15/17 at 02:00 ANA MELENDEZ MD Mar 17, 2017 08:48
--- NOTE | 2017-03-17 23:48 | DS ---
DATE OF ADMISSION: 03/15/2017 DATE OF DISCHARGE: 03/17/2017 FINAL DIAGNOSES: 1. Symptomatic hypoglycemia and hypertension causing near syncope. 2. Diabetes mellitus type 2. 3. End-stage renal disease on hemodialysis. 4. Obstructive sleep apnea. 5. Obesity. 6. Cirrhosis, portal hypertension status post hepatitis C treatment. 7. Underlying major depression, improved. 8. Status post thrombocytopenia, improved. 9. Urinary tract infection with VRE and E. coli, being treated. 10. Atypical chest pain, no evidence of acute myocardial infarction. HOSPITAL COURSE: The patient is a 61-year-old gentleman who is known to me from previous follow-up with a history of chronic kidney disease on hemodialysis, obstructive sleep apnea, diabetes mellitus type 2 and cirrhosis who was discharged 2 days prior and while at the Dialysis Unit became very dizzy, apparently was hypertensive and given clonidine. He went home ans he had increasing dizziness and he was evaluated in the emergency room and found to be hypoglycemic with a blood glucose level of 55 and was admitted. The patient was found to be in no acute distress. Chest was clear. Blood pressure initially was 130/62. The patient was monitored in a telemetry unit, had no signs of any significant arrhythmia. He had an episode of chest pain on 03/15/2013. He was seen by Dr. Mccain who ordered a Lexiscan which showed abnormalities consistent with a small to moderate size predominant nonreversible perfusion defect in the infra, apical and inferior irvin but no wall motion abnormalities. Discussed with Dr. Lucas who felt that the likely artifacts, and the patient's blood glucose levels in the normoglycemic range, and he was discharged home in much improved condition. Follow all his prior medications. With respect to diabetes we are going to hold off on the sulfonylureas. Continue Lantus 10 units and closely monitor blood glucose levels and consider additional insulin if necessary. Consider a small dose of Prandin if necessary or Januvia. He will be followed up as an outpatient over the course of next week. The case discussed with Dr. Collado as well. Dictated By: Ivan Brice MD /marlyn/jeni /Document#: [id number]
== END 2017-03-17 17:55 | disposition home health service (06) | DRG 682 ==
LOC: E/R 22:53 → TEL 03-13 01:58 → OBSVTOIN 03-15 15:14
PROVIDERS: ADMIT Internal Medicine; ATTEND Internal Medicine
PROC: 30233N1 Transfusion of Nonautologous Red Blood Cells into Peripheral Vein, Percutaneous Approach (ICD-10-PCS; 2017-03-14)
PROC: C22G1ZZ Tomographic (Tomo) Nuclear Medicine Imaging of Myocardium using Technetium 99m (Tc-99m) (ICD-10-PCS; principal; 2017-03-16)
PROC: 4A02XM4 Measurement of Cardiac Total Activity, External Approach (ICD-10-PCS; 2017-03-16)
PROC: 3E033HZ Introduction of Radioactive Substance into Peripheral Vein, Percutaneous Approach (ICD-10-PCS; 2017-03-16)
DX: I12.0 Hypertensive chronic kidney disease with stage 5 chronic kidney disease or end stage renal disease (principal); N18.6 End stage renal disease; N17.9 Acute kidney failure, unspecified; K76.6 Portal hypertension; E11.22 Type 2 diabetes mellitus with diabetic chronic kidney disease; D69.6 Thrombocytopenia, unspecified; N39.0 Urinary tract infection, site not specified; E11.65 Type 2 diabetes mellitus with hyperglycemia; Z99.2 Dependence on renal dialysis; G47.33 Obstructive sleep apnea (adult) (pediatric); E66.9 Obesity, unspecified; Z68.39 Body mass index [BMI] 39.0-39.9, adult; F32.9 Major depressive disorder, single episode, unspecified; K74.60 Unspecified cirrhosis of liver; B96.20 Unspecified Escherichia coli [E. coli] as the cause of diseases classified elsewhere; Z16.21 Resistance to vancomycin; B95.2 Enterococcus as the cause of diseases classified elsewhere; B19.20 Unspecified viral hepatitis C without hepatic coma; Z79.4 Long term (current) use of insulin; D64.9 Anemia, unspecified; Z87.19 Personal history of other diseases of the digestive system; Z87.891 Personal history of nicotine dependence; E88.81 Metabolic syndrome and other insulin resistance; E78.5 Hyperlipidemia, unspecified; R07.89 Other chest pain; E87.70 Fluid overload, unspecified
CPT/HCPCS: 36415; 36430; 70450; 71010; 78452; 80048; 80053; 82270; 82728; 82962; 83540; 84484; 85025; 86850; 86900; 86901; 86920; 90935; 93005; 93017; 93306; 96374; 97162; G0378; A9500; A9505; J1580; J1815; J2785; P9016; Q4081

== ENCOUNTER 2017-03-24 17:32 | Inpatient (IN) | payer BC ==
[~2017-03-24] VITALS: Ht 182.9 cm; Wt 120.8 kg
[2017-03-24 18:02] VITALS: Ht 182.9 cm; Wt 120.8 kg
[2017-03-24 20:11] LABS: BASOPHILS % 0.5 % (0.0-2.0); EOSINOPHILS # 0.4 10^3/ul (0.0-0.5); EOSINOPHILS % 5.3 % (0.0-7.0); HEMATOCRIT 22.9 % (42.0-52.0); HEMOGLOBIN 7.5 g/dl (14.0-18.0); LYMPHOCYTES # 1.8 10^3/ul (0.8-2.9); LYMPHOCYTES % 21.2 % (15.0-51.0); MEAN CORPUSCULAR HEMOGLOBIN 29.3 pg (29.0-33.0); MEAN CORPUSCULAR HGB CONC 32.8 g/dl (32.0-37.0); MEAN CORPUSCULAR VOLUME 89.5 fl (82.0-101.0); MEAN PLATELET VOLUME 9.4 fl (7.4-10.4); MONOCYTE # 0.8 10^3/ul (0.3-0.9); MONOCYTES % 9.2 % (0.0-11.0); NEUTROPHILS % 63.3 % (39.0-77.0); PLATELET COUNT 176 10^3/UL (140-415); RED BLOOD COUNT 2.56 10^6/ul (4.70-6.10); RED CELL DISTRIBUTION WIDTH 18.4 % (11.5-14.5); WHITE BLOOD COUNT 8.3 10^3/ul (4.8-10.8)
[2017-03-24 20:32] LABS: PARTIAL THROMBOPLASTIN TIME 37.5 Sec (25.0-35.0); PT RATIO 1.1
[2017-03-24 20:46] LABS: ALBUMIN 3.1 g/dl (3.3-4.9); ALBUMIN/GLOBULIN RATIO 0.68; BILIRUBIN,INDIRECT 0.5 mg/dl (0-1.1); BILIRUBIN,TOTAL 0.5 mg/dl (0.2-1.3); CALCIUM 8.7 mg/dl (8.4-10.2); CREATININE 3.24 mg/dl (0.61-1.24); POTASSIUM 3.4 mmol/L (3.5-5.1); TOTAL PROTEIN 7.6 g/dl (6.1-8.1)
[2017-03-24] MEDS ORDERED: SOD CHLORIDE 0.9% 250 ML IV ONE (20:48)
[2017-03-24 20:57] LABS: TROPONIN-I 0.038 ng/ml (0.00-0.12)
[2017-03-24] MEDS ORDERED: PANTOPRAZOLE 40 MG INJ IV ONE (21:00)
[2017-03-24] MEDS ORDERED: ONDANSETRON 4 MG INJ IV PRN (21:30)
[2017-03-24] MEDS ORDERED: ACETAMINOPHEN 325 MG TAB PO PRN (21:30)
--- NOTE | 2017-03-24 21:50 | ERA ---
ER Documentation Chief Complaint Date/Time DATE: 03/24/17 TIME: 21:47 Chief Complaint generalized weakness x 2 days; dizziness after dialysis today HPI This is a 61-year-old male who presents to the emergency room for evaluation of generalized weakness. This patient was seen after he completed his dialysis today by his director of government sales who will obtain lab work and stated that this patient was anemic. The patient had a hemoglobin of 6.5. The patient is complaining of dark stools and mild abdominal discomfort. He localizes abdominal discomfort to the midportion of his abdomen with no radiation. He was referred to the emergency room for further evaluation of his symptoms ROS All systems reviewed and are negative except as per history of present illness. Medications Home Meds Active Scripts Multivitamins* (Theragran*) 1 Tab Tab, 1 TAB PO DAILY for 30 Days, #30 TAB Prov:JENY MORA MD 03/11/17 Pantoprazole* (Pantoprazole*) 40 Mg Tablet.dr, 40 MG PO BID@06,18 for 30 Days, # 30 Prov:JENY MORA MD 03/11/17 Furosemide* (Furosemide*) 40 Mg Tablet, 40 MG PO DAILY for 30 Days, #30 TAB Prov:JENY MORA MD 03/11/17 Escitalopram Oxalate* (Escitalopram Oxalate*) 10 Mg Tablet, 10 MG PO QHS for 30 Days, #30 TAB Prov:JENY MORA MD 03/11/17 Nifedipine (Procardia Xl) 30 Mg Tab.er.24, 30 MG PO DAILY for 30 Days, #30 TAB Prov:JENY MORA MD 03/11/17 Trimethoprim-Sulfamethoxazole* (Bactrim*) 400-80 Mg Tab, 1 TAB PO DAILY for 30 Days, #30 TAB Prov:JENY MORA MD 03/11/17 Reported Medications Insulin Glargine* (Lantus*) 100 Unit/Ml Soln, 15 UNIT SC QHS, #1 VIAL TAKE 15-20 UNITS 02/25/17 Simvastatin* (Zocor*) 20 Mg Tablet, 20 MG PO QHS, #30 TAB 10/24/16 Lactulose* (Lactulose*) 20 Gm/30 Ml Solution, 20 GM PO QHS, ML 05/30/15 Allergies Allergies: Coded Allergies: ceftriaxone (Unverified Allergy, Intermediate, RASH, 03/24/17) per Mess notes 02/02/17 - rash with rocephin PMhx/Soc History of Surgery: Yes (appendectomy) Anesthesia Reaction: No Hx 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 Disorder: No Hx Respiratory Disorders: Yes (sleep apnea) Hx Cardiac Disorders: Yes (htn, chf,) Hx Psychiatric Problems: Yes (depression) Hx Miscellaneous Medical Probl: Yes (See EMR for detail. ) Hx Alcohol Use: No Hx Substance Use: No Hx Tobacco Use: No Smoking Status: Never smoker Physical Exam Vitals Vital Signs Date Time Temp Pulse Resp B/P Pulse Ox O2 Delivery O2 Flow Rate FiO2 03/24/17 20:51 92 17 128/72 100 Room Air 03/24/17 20:08 Nasal Cannula 2 03/24/17 18:02 98.3 86 18 100/54 97 Physical Exam INITIAL VITAL SIGNS: Reviewed by me GENERAL: The patient is well developed and appropriate for usual state of health in no apparent distress HEENT: Pupils equal, round, and reactive to light. EOMI. There is no scleral icterus. NECK: C-spine is soft and supple, there is no meningismus. There is no cervical lymphadenopathy. LUNGS: Clear to auscultation bilaterally. There are no rales, wheezes or rhonchi. HEART: Regular rate and rhythm, no murmurs, clicks, rubs or gallops. ABDOMEN: Soft, non-tender, non-distended. There are bowel sounds in all four quadrants. No rebound or guarding. EXTREMITIES: There is no peripheral cyanosis or edema. No focal swelling or erythema. NEUROLOGICAL: The patient moves all four extremities with 5/5 strength. Cranial nerves II - XII are intact. Normal gait. Alert and oriented SKIN: There is no apparent rash or petechiae. HEME/LYMPHATIC: There is no evidence of excessive bruising or lymphedema. PSYCHIATRIC: The patient does not appear anxious or depressed. Result Diagram: 03/24/17199903/24/171999 Results 24 hrs Laboratory Tests Test 03/24/17 20:00 White Blood Count 8.310^3/ul Red Blood Count 2.5610^6/ul Hemoglobin 7.5g/dl Hematocrit 22.9% Mean Corpuscular Volume 89.5fl Mean Corpuscular Hemoglobin 29.3pg Mean Corpuscular Hemoglobin Concent 32.8g/dl Red Cell Distribution Width 18.4% Platelet Count 52581^3/UL Mean Platelet Volume 9.4fl Neutrophils % 63.3% Lymphocytes % 21.2% Monocytes % 9.2% Eosinophils % 5.3% Basophils % 0.5% Nucleated Red Blood Cells % 0.0/100WBC Neutrophils # (Manual) 5.310^3/ul Lymphocytes # 1.810^3/ul Monocytes # 0.810^3/ul Eosinophils # 0.410^3/ul Basophils # 0.010^3/ul Nucleated Red Blood Cells # 0.010^3/ul Prothrombin Time Pending Prothrombin Time Ratio 1.1 INR International Normalized Ratio Pending Activated Partial Thromboplast Time 37.5Sec Sodium Level 135mmol/L Potassium Level 3.4mmol/L Chloride Level 96mmol/L Carbon Dioxide Level 32mmol/L Anion Gap 10 Blood Urea Nitrogen 24mg/dl Creatinine 3.24mg/dl Glucose Level 128mg/dl Calcium Level 8.7mg/dl Total Bilirubin 0.5mg/dl Direct Bilirubin 0.00mg/dl Indirect Bilirubin 0.5mg/dl Aspartate Amino Transf (AST/SGOT) 43IU/L Alanine Aminotransferase (ALT/SGPT) 30IU/L Alkaline Phosphatase 135IU/L Troponin I 0.038ng/ml Total Protein 7.6g/dl Albumin 3.1g/dl Globulin 4.50g/dl Albumin/Globulin Ratio 0.68 Current Medications Medications (Trade) Dose Ordered Sig/Irasema Route PRN Reason Start Time Stop Time Status Last Admin Dose Admin Pantoprazole 80 mg 80 mg ONCE ONCE IV 03/24/17 21:00 03/24/17 21:01 DC 03/24/17 21:09 Sodium Chloride (NS) 250 ml @ 0 mls/hr Q0M ONCE IV 03/24/17 20:48 03/24/17 20:49 DC Ondansetron HCl (Zofran Inj) 4 mg BRIDGE ORDER PRN IV NAUSEA AND/OR VOMITING 03/24/17 21:30 03/25/17 21:29 Acetaminophen (Tylenol Tab) 650 mg ER BRIDGE PRN PO MILD PAIN/FEVER 03/24/17 21:30 03/25/17 21:29 Procedures/MDM This 61-year-old male presents to the emergency room for evaluation of low hemoglobin and abdominal pain. When I evaluated this patient he had mild epigastric tenderness to palpation, lab work was obtained which does show a hemoglobin 7.5. The patient does have dark stools and is likely suffering from an upper GI bleed. He is hemodynamically stable at this time however given his comorbidities this patient was transfused 1 unit of packed red blood cells in the emergency room. He was given 80 mg of Protonix IV. He will be placed in for admission under the care of his panel primary care physician Dr. Mora. Critical Care: Excluding all billable procedures Time: 39 minutes Treatments/Evaluations: Close monitoring and treatment of unstable vital signs, cardiorespiratory, and neurologic status, while maintaining tight balance of fluid, respiratory, and cardiac interventions. Departure Diagnosis: Primary Impression: Upper GI bleed Additional Impressions: Anemia ESRD (end stage renal disease) on dialysis Condition: Stable JUAN M LAWRENCE DO Mar 24, 2017 21:50
--- NOTE | 2017-03-24 21:51 | CONS ---
DATE OF ADMISSION: 03/24/2017 DATE OF CONSULTATION: 03/24/2017 Thank you, Dr. Brice for asking me to participate in medical management of this patient. REASON FOR CONSULTATION: End-stage renal disease. HISTORY OF PRESENT ILLNESS: This 61-year-old man who is well known to me is being seen now because of end-stage renal disease and is on maintenance hemodialysis. The patient had his routine hemodialysis treatment today at the [facility]. I was called by one of the nurses there, who reported that the patient's hemoglobin today was 6.5. I did see the patient after dialysis. He has been feeling weak and dizzy. He has also been having black stool for the last several days to a week. 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 His hepatitis C was treated, and he is now considered cured from the hepatitis C; however, he does have cirrhosis of the liver. The patient denies any vomiting; however, he has had a poor appetite. He has been extremely weak, even before this admission. He has had several long hospitalizations at [facility]. He has started on hemodialysis about 2 months ago because of progressive renal failure. PAST MEDICAL HISTORY: Remarkable for hepatitis C, treated; cirrhosis of the liver; history of congestive heart failure; morbid obesity; insulin-dependent diabetes mellitus; hypertension. Patient has had multiple infections, including urinary tract infections and has been on various antibiotics. He does have a history of a duodenal ulcer and gastric varices. PAST SURGICAL HISTORY: Appendectomy, right ankle surgery. FAMILY HISTORY: Mother has hypertension. One brother at age 75 of coronary artery disease. He has 4 sisters who have diabetes and hypertension. ALLERGIES: THOUGHT TO BE ALLERGIC TO RIFAXIMIN. CURRENT MEDICATION: 1. Bactrim 1 tablet daily. 2. Nifedipine 30 mg a day. 3. Simvastatin 20 mg a day. 4. Escitalopram 10 mg a day. 5. Furosemide 40 mg a day. 6. Lactulose 20 g at h.s. 7. Pantoprazole 40 mg twice a day. 8. Lantus insulin 15 units at bedtime. 9. Multivitamins 1 daily. PHYSICAL EXAMINATION: GENERAL APPEARANCE: At this time reveals an obese man in no apparent distress. VITAL SIGNS: Temperature 98.3, pulse of 86, respirations 18, blood pressure 100/54, O2 sat of 97 percent. HEENT: Head normocephalic. Eyes, extraocular muscles intact. Nose and mouth are normal. NECK: Supple. No neck vein distention. LUNGS: Clear to auscultation. HEART: Regular rhythm, with a 1/6 systolic ejection murmur. No gallops or rubs. ABDOMEN: Obese, soft, nontender. EXTREMITIES: He does have some trace pretibial edema. IMPRESSION: 1. End-stage renal disease. The patient just finished his routine hemodialysis for today. He is usually on a Thursday, , Thursday dialysis schedule. 2. Anemia. The patient has a hemoglobin today of 6.5. He has been having some black stools, and therefore, I am concerned that he is having gastrointestinal bleeding. He does have a known duodenal ulcer and also a gastric varix. 3. Cirrhosis of the liver. 4. Hepatitis C, treated. 5. Hypertension. 6. Type 2 diabetes mellitus. 7. Congestive heart failure. PLAN: 1. We will check laboratory tests today. The labs are pending. 2. I did instruct the emergency room physician to check labs, and if his blood count is truly hemoglobin in the 6.5 range, to transfuse at least 1 unit of blood today, and then we will see tomorrow about whether he will need more blood transfusion, which we can give on dialysis. 3. Resume some routine medications. 4. I will follow the patient along with you. Dictated By: King Castro MD /[email or web address] /Document#: [id number] CC: Ivan Brice MD;*End*
[2017-03-24 22:10] LABS: PROTIME 13.8 Sec (12.2-14.2)
[2017-03-24 22:11] LABS: INR 1.06
[2017-03-24 23:15] VITALS: BP 169/77; PULSE 91; RESP 20
[2017-03-24] MEDS ORDERED: GLUCOSE GEL 15 GRAM TUBE BUCCAL PRN (23:45)
[2017-03-24] MEDS ORDERED: GLUCAGON 1 MG INJ IM PRN (23:45)
[2017-03-24] MEDS ORDERED: GLUCOSE GEL 15 GRAM TUBE PO PRN ×2 (23:45)
[2017-03-24] MEDS ORDERED: DEXTROSE 50% 50 ML SYRINGE IV PRN ×2 (23:45)
[2017-03-25] VITALS (11 sets, daily range): BP systolic 102–128; BP diastolic 51–78; PULSE 84–92; RESP 16–20
[2017-03-25] MEDS ORDERED: ACETAMINOPHEN 500 MG TAB PO PRN
[2017-03-25] MEDS ORDERED: ONDANSETRON 4 MG INJ IV PRN
[2017-03-25] MEDS: INSULIN GLARGINE [LANtus] 3 ML PEN SC SCH ×2 (00:58→21:36)
[2017-03-25] MEDS: ACCU-CHEK XX SCH (02:00)
[2017-03-25] MEDS ORDERED: ACCU-CHEK XX SCH (02:00)
[2017-03-25] MEDS: PANTOPRAZOLE (EC) 40 MG TAB PO SCH ×2 (05:53→17:33)
[2017-03-25] MEDS: FUROSEMIDE 40 MG TAB PO SCH (05:57)
[2017-03-25] MEDS ORDERED: POTASSIUM CHLORIDE (SR) 20 MEQ TAB PO ONE (07:30)
[2017-03-25 08:12] LABS: ABNORMAL IP MESSAGE 1; BASOPHILS % 0.5 % (0.0-2.0); EOSINOPHILS # 0.3 10^3/ul (0.0-0.5); EOSINOPHILS % 5.6 % (0.0-7.0); HEMATOCRIT 21.8 % (42.0-52.0); LYMPHOCYTES # 1.5 10^3/ul (0.8-2.9); MEAN CORPUSCULAR HEMOGLOBIN 28.6 pg (29.0-33.0); MEAN CORPUSCULAR HGB CONC 31.7 g/dl (32.0-37.0); MEAN CORPUSCULAR VOLUME 90.5 fl (82.0-101.0); MEAN PLATELET VOLUME 10.4 fl (7.4-10.4); MONOCYTE # 0.6 10^3/ul (0.3-0.9); MONOCYTES % 9.9 % (0.0-11.0); NEUTROPHILS % 58.7 % (39.0-77.0); PLATELET COUNT 131 10^3/UL (140-415); POSITIVE DIFF @See below; RED BLOOD COUNT 2.41 10^6/ul (4.70-6.10); WHITE BLOOD COUNT 5.9 10^3/ul (4.8-10.8)
[2017-03-25] MEDS: INSULIN ASPART [NOVOLOG] 3 ML PEN SC SCH ×4 (08:15→21:00)
[2017-03-25 08:16] LABS: HEMOGLOBIN 6.9 g/dl (14.0-18.0)
[2017-03-25 08:54] LABS: ANISOCYTOSIS 1+ (0-0); EOSINOPHILS % (M) 8 % (0-7); HYPOCHROMASIA 2+ (0-0); MICROCYTOSIS 1+ (0-0); MONOCYTES % (M) 8 % (0-11); PLATELET ESTIMATE NORMAL; POLYCHROMASIA 1+ (0-0)
[2017-03-25] MEDS: NIFEdipine (XL) 30 MG TAB PO SCH (09:00)
[2017-03-25 09:13] LABS: ALBUMIN 2.6 g/dl (3.3-4.9); ALBUMIN/GLOBULIN RATIO 0.66; BILIRUBIN,INDIRECT 0.6 mg/dl (0-1.1); BILIRUBIN,TOTAL 0.6 mg/dl (0.2-1.3); CALCIUM 8.3 mg/dl (8.4-10.2); CREATININE 3.79 mg/dl (0.61-1.24); POTASSIUM 3.6 mmol/L (3.5-5.1); TOTAL PROTEIN 6.5 g/dl (6.1-8.1)
[2017-03-25] MEDS: MULTIVITAMINS THERAPEUTIC TAB PO SCH (10:03)
--- NOTE | 2017-03-25 15:33 | HP ---
DATE OF ADMISSION: 03/24/2017 HISTORY OF PRESENT ILLNESS: The patient is a 61-year-old gentleman with a history of end-stage renal disease on maintenance hemodialysis and patient has been complaining of tarry stools for the last 2-3 days and has been complaining of increasing weakness and dizziness. Hematocrit and hemoglobin done at the dialysis was 6.5. Patient was referred to the emergency room and from there, was admitted. PAST MEDICAL HISTORY: For details of prior medical history, please refer to my earlier records. MEDICATIONS: 1. Bactrim single-strength 1 tablet q. daily, which he is on hold as the complains abdominal pain after taking that. 2. Nifedipine 30 mg q. daily. 3. Citalopram 10 mg q. daily. 4. Simvastatin 20 mg q. daily. 5. Furosemide 40, mg q. daily. 6. Lactulose 20 g at bedtime. 7. Lantus insulin 15 units q.h.s.. 8. Protonix 40 mg p.o. q. daily. ALLERGIES: RIFAXIMIN. FAMILY HISTORY: Mother has hypertension. He has four sisters who have diabetes and hypertension. One brother at age 75 of coronary artery disease. REVIEW OF SYSTEMS: HEAD: No history of headaches. No history of strokes. EYES: No blurry vision or glaucoma. ENT: Noncontributory. NECK: No history of neck pain or thyroid disease. CHEST: No bronchitis, hay fever or asthma. The patient does have a history of obstructive sleep apnea. HEART: No PND, orthopnea, palpitations. Had a Lexiscan, which was unremarkable about a week ago. GASTROINTESTINAL: History of hepatic cirrhosis with portal hypertension secondary to hepatitis C, treated. Hepatitis C acquired by transfusion. History of duodenal ulcer with bleed. The patient also has gastric vein varices. GENITOURINARY: No dysuria, hematuria, or kidney stones. PHYSICAL EXAMINATION: Patient is an obese male who presently appears weak. Temperature 98.8, blood pressure 118/60, respiratory 20 per minute. HEENT: Head normocephalic. Moderate pallor without cyanosis. Tongue is moist. NECK: Supple. No thyromegaly, bruits, or lymphadenopathy. CHEST: Clinically clear. HEART: S1, S2. No definite gallops. ABDOMEN: Obese. Mild left lower quadrant tenderness without rebound. No epigastric tenderness present. EXTREMITIES: Trace edema. Homans sign is negative. LABORATORY AND DIAGNOSTIC DATA: WBC count is 8.3, hematocrit 22.9, transfusion. Repeat hematocrit today is 21.8, platelet count 131,000. Sodium 135, potassium 3.4, BUN 24, creatinine 8.24, blood glucose levels 134, 95, 103 and 122. IMPRESSION: 1. Severe anemia secondary to upper GI bleed. Most likely secondary to duodenal ulcer. Possibly a bleed from the varices, not rule out. 2. Chronic kidney disease. End-stage, on maintenance hemodialysis. 3. Cirrhosis with portal hypertension status post hepatitis C, treated. 4. Obstructive sleep apnea. 5. Hypertension. 6. Underlying major depression, improved. 7. History of thrombocytopenia secondary to linezolid, has resolved. PLAN: The patient will be admitted to the medical floor. Transfuse as needed. GI consultation will be requested by Dr. Arteaga and will follow recommendations. Continue proton pump inhibitors. Closely monitor renal function. Observe for sepsis. Dictated By: Ivan Brice MD /[email or web address] /Document#: [id number]
--- NOTE | 2017-03-25 19:11 | CONS ---
Date/Time of Note Date/Time of Note DATE: 03/25/17 TIME: 19:03 Assessment/Plan Assessment/Plan Chief Complaint/Hosp Course 1. ESRD , he is on maintenance hemodialysis T T S . He was dialyzed today to give him a blood transfusion . Next dialysis in next 1 to 2 days , 2. GI bleeding 3. anemia 4. cirrhosis of the liver . 5. UTI 6. DM Problems: Consultation Date/Type/Reason Admit Date/Time Mar 24, 2017 at 21:09 Initial Consult Date 24 HR Interval Summary Free Text/Dictation He just finished his dialysis treatment . He received a 2 unit blood transfusion during dialysis . He is still having black stool . Constitutional: poor po Exam/Review of Systems Vital Signs Vitals Vital Signs Date Time Temp Pulse Resp B/P Pulse Ox O2 Delivery O2 Flow Rate FiO2 03/25/17 14:00 98.8 89 18 121/68 91 03/24/17 21:18 Room Air 03/24/17 20:08 2 Intake and Output 03/24/17 03/24/17 03/25/17 15:00 23:00 07:00 Intake Total 470 ml Balance 470 ml Exam Constitutional: alert, frail, obese, oriented ENMT: nl external ears & nose, nl lips & teeth, nl nasal mucosa & septum Neck: non-tender, supple Respiratory: clear to auscultation Cardiovascular: edema, regular rate and rhythm Gastrointestinal: bowel sounds, soft Results Result Diagram: 03/25/17 0750 03/25/17 0750 Results 24 hrs Laboratory Tests Test 03/24/17 20:00 03/25/17 00:29 03/25/17 05:59 03/25/17 07:50 White Blood Count 8.3 # 5.9 # Red Blood Count 2.56 L 2.41 L Hemoglobin 7.5 L 6.9 *L Hematocrit 22.9 L 21.8 L Mean Corpuscular Volume 89.5 90.5 Mean Corpuscular Hemoglobin 29.3 28.6 L Mean Corpuscular Hemoglobin Concent 32.8 31.7 L Red Cell Distribution Width 18.4 H 18.0 H Platelet Count 176 # 131 #L Mean Platelet Volume 9.4 10.4 Neutrophils % 63.3 58.7 Lymphocytes % 21.2 25.0 Monocytes % 9.2 9.9 Eosinophils % 5.3 5.6 Basophils % 0.5 0.5 Nucleated Red Blood Cells % 0.0 0.0 Neutrophils # (Manual) 5.3 Lymphocytes # 1.8 1.5 Monocytes # 0.8 0.6 Eosinophils # 0.4 0.3 Basophils # 0.0 0.0 Nucleated Red Blood Cells # 0.0 0.0 Prothrombin Time 13.8 Prothrombin Time Ratio 1.1 INR International Normalized Ratio 1.06 Activated Partial Thromboplast Time 37.5 H Sodium Level 135 135 Potassium Level 3.4 L 3.6 Chloride Level 96 L 99 Carbon Dioxide Level 32 H 33 H Anion Gap 10 7 L Blood Urea Nitrogen 24 H 30 H Creatinine 3.24 H 3.79 H Glucose Level 128 95 Calcium Level 8.7 8.3 L Total Bilirubin 0.5 0.6 Direct Bilirubin 0.00 0.00 Indirect Bilirubin 0.5 0.6 Aspartate Amino Transf (AST/SGOT) 43 37 Alanine Aminotransferase (ALT/SGPT) 30 30 Alkaline Phosphatase 135 H 105 Troponin I 0.038 Total Protein 7.6 6.5 # Albumin 3.1 L 2.6 L Globulin 4.50 H 3.90 H Albumin/Globulin Ratio 0.68 0.66 Bedside Glucose 134 Lab Scanned Report BLOOD TRANSFUSION Segmented Neutrophils % (Manual) 63 Lymphocytes % (Manual) 21 Monocytes % (Manual) 8 Eosinophils % (Manual) 8 H Absolute Lymphocytes (Manual) 1.2 Absolute Monocytes (Manual) 0.4 Platelet Estimate NORMAL Polychromasia 1+ Hypochromasia 2+ Anisocytosis 1+ Microcytosis 1+ Test 03/25/17 08:20 03/25/17 12:32 03/25/17 17:06 Bedside Glucose 103 122 172 Medications Medications Current Medications Escitalopram Oxalate (Lexapro) 10 mg QHS PO ; Start 03/25/17 at 21:00 Furosemide (Lasix) 40 mg DAILY@06 PO ; Start 03/25/17 at 06:00 Insulin Glargine (Lantus) 10 unit QHS SC Last administered on 03/25/17 00:58; Admin Dose 10 UNIT; Start 03/25/17 at 00:00 Lactulose (Enulose) 20 gm QHS PO ; Start 03/25/17 at 21:00 Multivitamins Therapeutic (Theragran) 1 tab DAILY PO Last administered on 10:03; Admin Dose 1 TAB; Start 03/25/17 at 09:00 Nifedipine (Procardia Xl) 30 mg DAILY PO ; Start 03/25/17 at 09:00 Pantoprazole (Protonix Tab) 40 mg BID@06,18 PO Last administered on 03/25/17t 17:33; Admin Dose 40 MG; Start 03/25/17 at 06:00 Atorvastatin Calcium (Lipitor) 10 mg DAILY@21 PO ; Start 03/25/17 at 21:00 Diagnostic Test (Pha) (Accu-Chek) 1 ea 02 XX ; Start 03/25/17 at 02:00 Clonidine (Catapres) 0.1 mg Q4H PRN PO ELEVATED BLOOD PRESSURE; Start 03/25/17 at 00:00 Ondansetron HCl (Zofran Inj) 4 mg Q4H PRN IV NAUSEA AND/OR VOMITING; Start at 00:00 Acetaminophen (Tylenol Tab) 500 mg Q4H PRN PO PAIN AND OR ELEVATED TEMP; Start 03/25/17 at 00:00 Miscellaneous Information 1 ea NOTE XX ; Start 03/24/17 at 23:45 Glucose (Glutose) 15 gm Q15M PRN PO DECREASED GLUCOSE; Start 03/24/17 at 23:45 Glucose (Glutose) 22.5 gm Q15M PRN PO DECREASED GLUCOSE; Start 03/24/17 at 23: 45 Dextrose (D50w Syringe) 25 ml Q15M PRN IV DECREASED GLUCOSE; Start 03/24/17 at 23:45 Dextrose (D50w Syringe) 50 ml Q15M PRN IV DECREASED GLUCOSE; Start 03/24/17 at 23:45 Glucagon (Glucagen) 1 mg Q15M PRN IM DECREASED GLUCOSE; Start 03/24/17 at 23:45 Glucose (Glutose) 15 gm Q15M PRN BUCCAL DECREASED GLUCOSE; Start 03/24/17 at 23 :45 ANA MELENDEZ MD Mar 25, 2017 19:11
[2017-03-25] MEDS: LACTULOSE 30ML CUP PO SCH (21:29)
[2017-03-25] MEDS: ESCITALOPRAM 10 MG TAB PO SCH (21:29)
[2017-03-25] MEDS: ATORVASTATIN 10 MG TAB PO SCH (21:30)
[2017-03-26] MEDS: ACCU-CHEK XX SCH ×2 (02:00→20:17)
[2017-03-26 02:31] VITALS: BP 126/75; RESP 20
--- NOTE | 2017-03-26 03:57 | CONS ---
DATE OF ADMISSION: 03/24/2017 DATE OF CONSULTATION: 03/25/2017 REASON FOR CONSULTATION: GI bleeding. HISTORY OF PRESENT ILLNESS: This is a 61-year-old male with a history of hepatitis C, cirrhosis of liver, had GI bleeding and underwent upper endoscopy, which showed duodenal ulcer and also gastric varicose vein close to the GE junction. There was no stigmata of bleeding from the gastric varicose vein. The patient was started on PPI and responded well until 2 days prior to the hospitalization; then he developed black-colored stool. The patient also felt weak and dizzy, so was brought to the emergency room. Since his hemoglobin was low, he was admitted for further management. PAST MEDICAL HISTORY: As described above. The patient has lost significant weight ever since he was on dialysis. ALLERGIES: RIFAXIMIN. FAMILY HISTORY: Mother has hypertension. Two sisters have diabetes and hypertension. REVIEW OF SYSTEMS: Otherwise negative. PHYSICAL EXAMINATION: GENERAL: Well-built, nourished, not in distress. VITAL SIGNS: Stable. HEENT: Unremarkable. NECK: Supple. No thyromegaly. No lymphadenopathy. HEART: No murmur, gallop, or click. LUNGS: Clear. ABDOMEN: Benign. EXTREMITIES: No edema. NEUROLOGIC: Grossly within normal limits. DIAGNOSTICS: His hematocrit has dropped down from 32.9 to 21.9. Platelet count is good at 131. Creatinine is 3.79. INR is within normal limits. Stool for occult blood is pending. IMPRESSION: 1. Upper gastrointestinal bleeding. Most probably from duodenal ulcer. Again, gastric varicose vein cannot be ruled out. Usually, bleeding from the varicose vein is very brisk. 2. 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 3. End-stage renal disease, for which patient is on dialysis. 4. Anemia. PLAN: Continue PPI and monitor H and H, transfuse on as needed basis. Continue dialysis. He is not a candidate for a beta nicole, because given the low dose of her Coreg, he had a significant drop in heart rate. Dictated By: Ronaldo Arteaga MD /marlyn/[email or web address] /Document#: [id number]
[2017-03-26 05:48] LABS: BASOPHILS % 0.5 % (0.0-2.0); EOSINOPHILS # 0.4 10^3/ul (0.0-0.5); EOSINOPHILS % 7.3 % (0.0-7.0); HEMATOCRIT 27.2 % (42.0-52.0); HEMOGLOBIN 8.7 g/dl (14.0-18.0); LYMPHOCYTES # 1.3 10^3/ul (0.8-2.9); LYMPHOCYTES % 23.6 % (15.0-51.0); MEAN CORPUSCULAR VOLUME 90.7 fl (82.0-101.0); MEAN PLATELET VOLUME 9.8 fl (7.4-10.4); MONOCYTE # 0.6 10^3/ul (0.3-0.9); MONOCYTES % 10.3 % (0.0-11.0); NEUTROPHIL # 3.3 10^3/ul (1.6-7.5); NEUTROPHILS % 57.9 % (39.0-77.0); PLATELET COUNT 126 10^3/UL (140-415); RED CELL DISTRIBUTION WIDTH 17.3 % (11.5-14.5); WHITE BLOOD COUNT 5.6 10^3/ul (4.8-10.8)
[2017-03-26] MEDS: PANTOPRAZOLE (EC) 40 MG TAB PO SCH ×2 (05:48→17:28)
[2017-03-26] MEDS: FUROSEMIDE 40 MG TAB PO SCH (05:48)
[2017-03-26 06:24] LABS: CALCIUM 8.4 mg/dl (8.4-10.2); CREATININE 3.51 mg/dl (0.61-1.24); POTASSIUM 3.4 mmol/L (3.5-5.1)
[2017-03-26 06:30] LABS: INR 1.1; PROTIME 14.2 Sec (12.2-14.2); PT RATIO 1.1
[2017-03-26 06:31] LABS: PARTIAL THROMBOPLASTIN TIME 42.7 Sec (25.0-35.0)
[2017-03-26 08:08] VITALS: BP 127/60; RESP 16
[2017-03-26] MEDS: INSULIN ASPART [NOVOLOG] 3 ML PEN SC SCH ×4 (08:13→20:17)
[2017-03-26] MEDS: MULTIVITAMINS THERAPEUTIC TAB PO SCH (08:25)
[2017-03-26] MEDS: NIFEdipine (XL) 30 MG TAB PO SCH (08:26)
--- NOTE | 2017-03-26 10:04 | CONS ---
Date/Time of Note Date/Time of Note DATE: 03/26/17 TIME: 09:59 Assessment/Plan Assessment/Plan Chief Complaint/Hosp Course 1. ESRD , he is on maintenance hemodialysis T S . He was dialyzed today to give him a blood transfusion . Since his serum creatinine is low today and he has been dialyzed daily for 2 days, I will hold off dialysis today. His next scheduled dialysis will be in 2 days on Thursday, March 28. 2. GI bleeding 3. anemia, his hemoglobin and hematocrit are higher today after receiving a 2 unit blood transfusion yesterday. 4. cirrhosis of the liver . 5. UTI 6. DM Problems: Consultation Date/Type/Reason Admit Date/Time Mar 24, 2017 at 21:09 24 HR Interval Summary Free Text/Dictation He is feeling overall better. He did receive 2 units of blood yesterday with dialysis. He is complaining of some pain in his left lower leg where he has dilated superficial veins. Constitutional: improved Exam/Review of Systems Vital Signs Vitals Vital Signs Date Time Temp Pulse Resp B/P Pulse Ox O2 Delivery O2 Flow Rate FiO2 03/26/17 08:08 98.3 85 16 127/60 95 03/24/17 21:18 Room Air 03/24/17 20:08 2 Intake and Output 03/25/17 03/25/17 03/26/17 15:00 23:00 07:00 Intake Total 900 ml 1416 ml Output Total 2400 ml 150 ml Balance -1500 ml 1266 ml Exam He has some varicose veins on the left leg which are hard and tender. I suspect these are thrombosed superficial veins. I will check a venous Doppler of the lower extremity. Constitutional: alert, frail, obese, oriented Respiratory: clear to auscultation, normal air movement Cardiovascular: regular rate and rhythm Gastrointestinal: non-tender, soft Results Result Diagram: 03/26/17 0510 03/26/17 0510 Results 24 hrs Laboratory Tests Test 03/25/17 12:32 03/25/17 17:06 03/25/17 21:32 03/26/17 05:10 Bedside Glucose 122 172 151 White Blood Count 5.6 Red Blood Count 3.00 #L Hemoglobin 8.7 #L Hematocrit 27.2 #L Mean Corpuscular Volume 90.7 Mean Corpuscular Hemoglobin 29.0 Mean Corpuscular Hemoglobin Concent 32.0 Red Cell Distribution Width 17.3 H Platelet Count 126 L Mean Platelet Volume 9.8 Neutrophils % 57.9 Lymphocytes % 23.6 Monocytes % 10.3 Eosinophils % 7.3 H Basophils % 0.5 Nucleated Red Blood Cells % 0.0 Neutrophils # 3.3 Lymphocytes # 1.3 Monocytes # 0.6 Eosinophils # 0.4 Basophils # 0.0 Nucleated Red Blood Cells # 0.0 Prothrombin Time 14.2 Prothrombin Time Ratio 1.1 INR International Normalized Ratio 1.10 Activated Partial Thromboplast Time 42.7 H Sodium Level 137 Potassium Level 3.4 L Chloride Level 102 Carbon Dioxide Level 31 Anion Gap 7 L Blood Urea Nitrogen 23 H Creatinine 3.51 H Glucose Level 124 Calcium Level 8.4 Test 03/26/17 08:12 Bedside Glucose 132 Medications Medications Current Medications Escitalopram Oxalate (Lexapro) 10 mg QHS PO Last administered on 03/25/17 21: 29; Admin Dose 10 MG; Start 03/25/17 at 21:00 Furosemide (Lasix) 40 mg DAILY@06 PO Last administered on 03/26/17 05:48; Admin Dose 40 MG; Start 03/25/17 at 06:00 Insulin Glargine (Lantus) 10 unit QHS SC Last administered on 03/25/17 21:36; Admin Dose 10 UNIT; Start 03/25/17 at 00:00 Lactulose (Enulose) 20 gm QHS PO Last administered on 03/25/17 21:29; Admin Dose 20 GM; Start 03/25/17 at 21:00 Multivitamins Therapeutic (Theragran) 1 tab DAILY PO Last administered on 08:25; Admin Dose 1 TAB; Start 03/25/17 at 09:00 Nifedipine (Procardia Xl) 30 mg DAILY PO Last administered on 03/26/17 08:26; Admin Dose 30 MG; Start 03/25/17 at 09:00 Pantoprazole (Protonix Tab) 40 mg BID@06,18 PO Last administered on 03/26/17 05:48; Admin Dose 40 MG; Start 03/25/17 at 06:00 Atorvastatin Calcium (Lipitor) 10 mg DAILY@21 PO Last administered on 21:30; Admin Dose 10 MG; Start 03/25/17 at 21:00 Diagnostic Test (Pha) (Accu-Chek) 1 ea 02 XX ; Start 03/25/17 at 02:00 Clonidine (Catapres) 0.1 mg Q4H PRN PO ELEVATED BLOOD PRESSURE; Start 03/25/17 at 00:00 Ondansetron HCl (Zofran Inj) 4 mg Q4H PRN IV NAUSEA AND/OR VOMITING; Start at 00:00 Acetaminophen (Tylenol Tab) 500 mg Q4H PRN PO PAIN AND OR ELEVATED TEMP; Start 03/25/17 at 00:00 Miscellaneous Information 1 ea NOTE XX ; Start 03/24/17 at 23:45 Glucose (Glutose) 15 gm Q15M PRN PO DECREASED GLUCOSE; Start 03/24/17 at 23:45 Glucose (Glutose) 22.5 gm Q15M PRN PO DECREASED GLUCOSE; Start 03/24/17 at 23: 45 Dextrose (D50w Syringe) 25 ml Q15M PRN IV DECREASED GLUCOSE; Start 03/24/17 at 23:45 Dextrose (D50w Syringe) 50 ml Q15M PRN IV DECREASED GLUCOSE; Start 03/24/17 at 23:45 Glucagon (Glucagen) 1 mg Q15M PRN IM DECREASED GLUCOSE; Start 03/24/17 at 23:45 Glucose (Glutose) 15 gm Q15M PRN BUCCAL DECREASED GLUCOSE; Start 03/24/17 at 23 :45 ANA MELENDEZ MD Mar 26, 2017 10:04
--- NOTE | 2017-03-26 10:48 | CONS ---
Date/Time of Note Date/Time of Note DATE: 03/26/17 TIME: 10:47 Assessment/Plan Assessment/Plan Additional Assessment/Plan IMPRESSION: 1. Upper gastrointestinal bleeding. Most probably from duodenal ulcer. Again, gastric varicose vein cannot be ruled out. Usually, bleeding from the varicose vein is very brisk. 2. 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 3. End-stage renal disease, for which patient is on dialysis. 4. Anemia. Plan Continue PPI Monitor H&H Discussed with Consultation Date/Type/Reason Admit Date/Time Mar 24, 2017 at 21:09 Initial Consult Date 24 HR Interval Summary Constitutional: no complaints Exam/Review of Systems Vital Signs Vitals Vital Signs Date Time Temp Pulse Resp B/P Pulse Ox O2 Delivery O2 Flow Rate FiO2 03/26/17 08:08 98.3 85 16 127/60 95 03/24/17 21:18 Room Air 03/24/17 20:08 2 Intake and Output 03/25/17 03/25/17 03/26/17 15:00 23:00 07:00 Intake Total 900 ml 1416 ml Output Total 2400 ml 150 ml Balance -1500 ml 1266 ml Exam Constitutional: alert, oriented, well developed Psych: nl mood/affect, no complaints Head: atraumatic, normocephalic Eyes: EOMI, PERRL, nl conjunctiva, nl lids, nl sclera ENMT: nl external ears & nose, nl lips & teeth, nl nasal mucosa & septum Neck: non-tender, supple Respiratory: clear to auscultation, normal air movement Cardiovascular: nl pulses, regular rate and rhythm Gastrointestinal: nl liver, spleen, non-tender, soft Musculoskeletal: nl extremities to inspection, nl gait and stance Extremities: normal pulses 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: CLINICAL QUALITY MANAGER II-XII intact, nl mental status, nl speech, nl strength Skin: nl turgor, No rash or lesions Lymph: nl lymph nodes Results Result Diagram: 03/26/17 0510 03/26/17 0510 Results 24 hrs Laboratory Tests Test 03/25/17 12:32 03/25/17 17:06 03/25/17 21:32 03/26/17 05:10 Bedside Glucose 122 172 151 White Blood Count 5.6 Red Blood Count 3.00 #L Hemoglobin 8.7 #L Hematocrit 27.2 #L Mean Corpuscular Volume 90.7 Mean Corpuscular Hemoglobin 29.0 Mean Corpuscular Hemoglobin Concent 32.0 Red Cell Distribution Width 17.3 H Platelet Count 126 L Mean Platelet Volume 9.8 Neutrophils % 57.9 Lymphocytes % 23.6 Monocytes % 10.3 Eosinophils % 7.3 H Basophils % 0.5 Nucleated Red Blood Cells % 0.0 Neutrophils # 3.3 Lymphocytes # 1.3 Monocytes # 0.6 Eosinophils # 0.4 Basophils # 0.0 Nucleated Red Blood Cells # 0.0 Prothrombin Time 14.2 Prothrombin Time Ratio 1.1 INR International Normalized Ratio 1.10 Activated Partial Thromboplast Time 42.7 H Sodium Level 137 Potassium Level 3.4 L Chloride Level 102 Carbon Dioxide Level 31 Anion Gap 7 L Blood Urea Nitrogen 23 H Creatinine 3.51 H Glucose Level 124 Calcium Level 8.4 Test 03/26/17 08:12 Bedside Glucose 132 Medications Medications Current Medications Escitalopram Oxalate (Lexapro) 10 mg QHS PO Last administered on 03/25/17 21: 29; Admin Dose 10 MG; Start 03/25/17 at 21:00 Furosemide (Lasix) 40 mg DAILY@06 PO Last administered on 03/26/17 05:48; Admin Dose 40 MG; Start 03/25/17 at 06:00 Insulin Glargine (Lantus) 10 unit QHS SC Last administered on 03/25/17 21:36; Admin Dose 10 UNIT; Start 03/25/17 at 00:00 Lactulose (Enulose) 20 gm QHS PO Last administered on 03/25/17 21:29; Admin Dose 20 GM; Start 03/25/17 at 21:00 Multivitamins Therapeutic (Theragran) 1 tab DAILY PO Last administered on 08:25; Admin Dose 1 TAB; Start 03/25/17 at 09:00 Nifedipine (Procardia Xl) 30 mg DAILY PO Last administered on 03/26/17 08:26; Admin Dose 30 MG; Start 03/25/17 at 09:00 Pantoprazole (Protonix Tab) 40 mg BID@06,18 PO Last administered on 03/26/17 05:48; Admin Dose 40 MG; Start 03/25/17 at 06:00 Atorvastatin Calcium (Lipitor) 10 mg DAILY@21 PO Last administered on 21:30; Admin Dose 10 MG; Start 03/25/17 at 21:00 Diagnostic Test (Pha) (Accu-Chek) 1 ea 02 XX ; Start 03/25/17 at 02:00 Clonidine (Catapres) 0.1 mg Q4H PRN PO ELEVATED BLOOD PRESSURE; Start 03/25/17 at 00:00 Ondansetron HCl (Zofran Inj) 4 mg Q4H PRN IV NAUSEA AND/OR VOMITING; Start at 00:00 Acetaminophen (Tylenol Tab) 500 mg Q4H PRN PO PAIN AND OR ELEVATED TEMP; Start 03/25/17 at 00:00 Miscellaneous Information 1 ea NOTE XX ; Start 03/24/17 at 23:45 Glucose (Glutose) 15 gm Q15M PRN PO DECREASED GLUCOSE; Start 03/24/17 at 23:45 Glucose (Glutose) 22.5 gm Q15M PRN PO DECREASED GLUCOSE; Start 03/24/17 at 23: 45 Dextrose (D50w Syringe) 25 ml Q15M PRN IV DECREASED GLUCOSE; Start 03/24/17 at 23:45 Dextrose (D50w Syringe) 50 ml Q15M PRN IV DECREASED GLUCOSE; Start 03/24/17 at 23:45 Glucagon (Glucagen) 1 mg Q15M PRN IM DECREASED GLUCOSE; Start 03/24/17 at 23:45 Glucose (Glutose) 15 gm Q15M PRN BUCCAL DECREASED GLUCOSE; Start 03/24/17 at 23 :45 STUART STANLEY MD Mar 26, 2017 10:48
--- NOTE | 2017-03-26 10:57 | RADRPT ---
PROCEDURE: Ultrasound of the bilateral lower extremity venous system. CLINICAL INDICATION: Dilated lower extremity veins. TECHNIQUE: Adams scale with and without compression, color doppler, spectral doppler of the venous system of the bilateral lower extremities was performed. Venous augmentation maneuvers were utilized . COMPARISON: Previous upper extremity venous study from 02/11/2017. FINDINGS: RIGHT: Common femoral vein:Patent and compressible. Femoral vein:Patent and compressible. Popliteal vein:Patent and compressible. Visualized calf veins:Patent and compressible. Soft tissues:Normal LEFT: Common femoral vein:Patent and compressible. Femoral vein:Patent and compressible. Popliteal vein:Patent and compressible. Visualized calf veins:Patent and compressible. Soft tissues:Normal IMPRESSION: 1. No evidence of deep vein thrombosis. RPTAT: [facility] Physician Candace Date Time Electronically viewed and signed by Physician Candace on 03/26/2017 10:56 /
--- NOTE | 2017-03-26 11:25 | PN ---
DATE: 03/26/2017 SUBJECTIVE DATA: Patient has mild left upper quadrant pain. Denies any nausea or vomiting. P.o. intake is still poor. Overall feels weak. OBJECTIVE DATA: GENERAL: Patient is awake, alert. VITAL SIGNS: Temperature 98.3, blood pressure 127/60, respiratory 20 per minute. CHEST: Clinically clear. HEART: S1, S2. No definite gallops. ABDOMEN: Obese. No definite tenderness. EXTREMITIES: Minimal edema. Homans negative. LABORATORY AND DIAGNOSTIC DATA: Potassium 3.4, BUN 23, creatinine 3.51. Hematocrit 27.2. CONSULTATION: Dr. Arteaga's GI consultation was greatly appreciated. IMPRESSION: 1. Acute upper gastrointestinal bleed likely from duodenal ulcer with anemia. 2. Chronic kidney disease, end stage, on maintenance hemodialysis. 3. Cirrhosis, portal hypertension, status post hep C, treated. 4. Obstructive sleep apnea. 5. Hypertension. 6. Underlying major depression. 7. Status post thrombocytopenia, resolved. PLAN: We will continue to monitor hemoglobin and hematocrit. Replace potassium. Repeat CBC in a.m. and consider further workup GI if hematocrit continues to drop. Dictated By: Ivan Brice MD /[email or web address]/rodney /Document#: [id number]
[2017-03-26 14:00] VITALS: BP 134/65; RESP 18
[2017-03-26] MEDS: ESCITALOPRAM 10 MG TAB PO SCH (20:13)
[2017-03-26] MEDS: LACTULOSE 30ML CUP PO SCH (20:13)
[2017-03-26] MEDS: INSULIN GLARGINE [LANtus] 3 ML PEN SC SCH (20:15)
[2017-03-26] MEDS: ATORVASTATIN 10 MG TAB PO SCH (20:15)
[2017-03-26 20:31] VITALS: BP 136/80; RESP 20
[2017-03-27 02:55] VITALS: BP 131/76; RESP 20
[2017-03-27] MEDS: PANTOPRAZOLE (EC) 40 MG TAB PO SCH ×2 (05:36→17:23)
[2017-03-27] MEDS: FUROSEMIDE 40 MG TAB PO SCH (05:37)
[2017-03-27 06:25] LABS: BASOPHILS % 0.6 % (0.0-2.0); EOSINOPHILS # 0.5 10^3/ul (0.0-0.5); EOSINOPHILS % 6.9 % (0.0-7.0); HEMATOCRIT 27.3 % (42.0-52.0); HEMOGLOBIN 8.8 g/dl (14.0-18.0); LYMPHOCYTES # 1.3 10^3/ul (0.8-2.9); LYMPHOCYTES % 18.3 % (15.0-51.0); MEAN CORPUSCULAR HEMOGLOBIN 29.3 pg (29.0-33.0); MEAN CORPUSCULAR HGB CONC 32.2 g/dl (32.0-37.0); MEAN PLATELET VOLUME 9.7 fl (7.4-10.4); MONOCYTE # 0.6 10^3/ul (0.3-0.9); MONOCYTES % 7.9 % (0.0-11.0); NEUTROPHIL # 4.7 10^3/ul (1.6-7.5); NEUTROPHILS % 65.9 % (39.0-77.0); PLATELET COUNT 162 10^3/UL (140-415); RED CELL DISTRIBUTION WIDTH 17.2 % (11.5-14.5); WHITE BLOOD COUNT 7.1 10^3/ul (4.8-10.8)
[2017-03-27 06:46] LABS: CALCIUM 8.3 mg/dl (8.4-10.2); CREATININE 4.5 mg/dl (0.61-1.24); POTASSIUM 3.8 mmol/L (3.5-5.1)
[2017-03-27 07:53] VITALS: BP 133/64; RESP 18
[2017-03-27] MEDS: INSULIN ASPART [NOVOLOG] 3 ML PEN SC SCH ×4 (08:15→21:00)
[2017-03-27] MEDS: MULTIVITAMINS THERAPEUTIC TAB PO SCH (08:28)
[2017-03-27] MEDS: NIFEdipine (XL) 30 MG TAB PO SCH (08:30)
--- NOTE | 2017-03-27 09:45 | CONS ---
Date/Time of Note Date/Time of Note DATE: 03/27/17 TIME: 09:37 Assessment/Plan Assessment/Plan Chief Complaint/Hosp Course 1. ESRD , he is on maintenance hemodialysis T T S . He was dialyzed 03/25/16 to give him a blood transfusion . His labs are acceptable today . I will hold off dialysis today. His next scheduled dialysis will be ordered for tomorrow . 2. GI bleeding , His H/H has been stable . 3. anemia, his hemoglobin and hematocrit are higher today after receiving 3 units of blood transfusion since admission .. 4. cirrhosis of the liver . 5. UTI 6. DM Problems: Consultation Date/Type/Reason Admit Date/Time Mar 24, 2017 at 21:09 Type of Consultation: renal 24 HR Interval Summary Free Text/Dictation He is awake . No new complaints . He says that he is having less BM'S . Constitutional: improved, no complaints Exam/Review of Systems Vital Signs Vitals Vital Signs Date Time Temp Pulse Resp B/P Pulse Ox O2 Delivery O2 Flow Rate FiO2 03/27/17 07:53 98.9 83 18 133/64 91 03/24/17 21:18 Room Air 03/24/17 20:08 2 Intake and Output 03/26/17 03/26/17 03/27/17 15:00 23:00 07:00 Intake Total 400 ml 400 ml Balance 400 ml 400 ml Exam Constitutional: alert, frail, obese, oriented ENMT: nl external ears & nose, nl lips & teeth, nl nasal mucosa & septum Respiratory: clear to auscultation, normal air movement Cardiovascular: regular rate and rhythm Gastrointestinal: non-tender, soft Musculoskeletal: nl extremities to inspection Results Result Diagram: 03/27/17 0546 03/27/17 0546 Results 24 hrs Laboratory Tests Test 03/26/17 12:17 03/26/17 17:16 03/26/17 20:13 03/27/17 05:28 Bedside Glucose 161 195 172 Lab Scanned Report BLOOD TRANSFUSION Test 03/27/17 05:46 03/27/17 08:27 White Blood Count 7.1 # Red Blood Count 3.00 L Hemoglobin 8.8 L Hematocrit 27.3 L Mean Corpuscular Volume 91.0 Mean Corpuscular Hemoglobin 29.3 Mean Corpuscular Hemoglobin Concent 32.2 Red Cell Distribution Width 17.2 H Platelet Count 162 # Mean Platelet Volume 9.7 Neutrophils % 65.9 Lymphocytes % 18.3 Monocytes % 7.9 Eosinophils % 6.9 Basophils % 0.6 Nucleated Red Blood Cells % 0.0 Neutrophils # 4.7 Lymphocytes # 1.3 Monocytes # 0.6 Eosinophils # 0.5 Basophils # 0.0 Nucleated Red Blood Cells # 0.0 Sodium Level 135 Potassium Level 3.8 Chloride Level 101 Carbon Dioxide Level 30 Anion Gap 8 Blood Urea Nitrogen 32 H Creatinine 4.50 H Glucose Level 129 Calcium Level 8.3 L Bedside Glucose 131 Medications Medications Current Medications Escitalopram Oxalate (Lexapro) 10 mg QHS PO Last administered on 03/26/17 20: 13; Admin Dose 10 MG; Start 03/25/17 at 21:00 Furosemide (Lasix) 40 mg DAILY@06 PO Last administered on 03/27/17 05:37; Admin Dose 40 MG; Start 03/25/17 at 06:00 Insulin Glargine (Lantus) 10 unit QHS SC Last administered on 03/26/17 20:15; Admin Dose 10 UNIT; Start 03/25/17 at 00:00 Lactulose (Enulose) 20 gm QHS PO Last administered on 03/26/17 20:13; Admin Dose 20 GM; Start 03/25/17 at 21:00 Multivitamins Therapeutic (Theragran) 1 tab DAILY PO Last administered on 08:28; Admin Dose 1 TAB; Start 03/25/17 at 09:00 Nifedipine (Procardia Xl) 30 mg DAILY PO Last administered on 03/27/17 08:30; Admin Dose 30 MG; Start 03/25/17 at 09:00 Pantoprazole (Protonix Tab) 40 mg BID@06,18 PO Last administered on 03/27/17 05:36; Admin Dose 40 MG; Start 03/25/17 at 06:00 Atorvastatin Calcium (Lipitor) 10 mg DAILY@21 PO Last administered on 21:30; Admin Dose 10 MG; Start 03/25/17 at 21:00 Diagnostic Test (Pha) (Accu-Chek) 1 ea 02 XX ; Start 03/25/17 at 02:00 Clonidine (Catapres) 0.1 mg Q4H PRN PO ELEVATED BLOOD PRESSURE; Start 9/13/17 at 00:00 Ondansetron HCl (Zofran Inj) 4 mg Q4H PRN IV NAUSEA AND/OR VOMITING; Start at 00:00 Acetaminophen (Tylenol Tab) 500 mg Q4H PRN PO PAIN AND OR ELEVATED TEMP Last administered on 03/26/17t 21:22; Admin Dose 500 MG; Start 03/25/17 at 00:00 Miscellaneous Information 1 ea NOTE XX ; Start 03/24/17 at 23:45 Glucose (Glutose) 15 gm Q15M PRN PO DECREASED GLUCOSE; Start 03/24/17 at 23:45 Glucose (Glutose) 22.5 gm Q15M PRN PO DECREASED GLUCOSE; Start 03/24/17 at 23: 45 Dextrose (D50w Syringe) 25 ml Q15M PRN IV DECREASED GLUCOSE; Start 03/24/17 at 23:45 Dextrose (D50w Syringe) 50 ml Q15M PRN IV DECREASED GLUCOSE; Start 03/24/17 at 23:45 Glucagon (Glucagen) 1 mg Q15M PRN IM DECREASED GLUCOSE; Start 03/24/17 at 23:45 Glucose (Glutose) 15 gm Q15M PRN BUCCAL DECREASED GLUCOSE; Start 03/24/17 at 23 :45 Epoetin Sean (Epogen (Esrd)) 10,000 units MoWeFr@17 SC ; Start 03/27/17 at 17:00 ; Status ANA STERLING MD Mar 27, 2017 09:45
--- NOTE | 2017-03-27 10:27 | RADRPT ---
PROCEDURE: XR Chest. CLINICAL INDICATION: Respiratory distress. TECHNIQUE: AP view of the chest was performed. COMPARISON: March 13, 2017 FINDINGS: There is a stable dual-lumen right central venous catheter. There is persistent cardiomegaly with mi ld vascular congestion. A new, right lower lobe infiltrate is present. Findings could be secondary t o aspiration. No pneumothorax or pleural effusion. The osseous structures are stable. IMPRESSION: Stable right central venous catheter. Persistent cardiomegaly, mild vascular congestion, and new rig ht lower lobe lung infiltrates. Findings could be secondary to aspiration. RPTAT: QQ. .Dulce Maria Desai MD, Date Time Electronically viewed and signed by .Dulce Maria Desai MD, on 03/27/2017 10:26 .F/
[2017-03-27 14:00] VITALS: BP 135/72; RESP 18
[2017-03-27] MEDS ORDERED: EPOETIN 10000 UNITS/1 ML INJ (ESRD) SC SCH (17:00)
[2017-03-27 19:58] VITALS: BP 124/66; PULSE 85; RESP 18
--- NOTE | 2017-03-27 20:33 | PN ---
DATE: 03/27/2017 SUBJECTIVE DATA: The patient complains mild generalized weakness. His p.o. intake improving. OBJECTIVE DATA: VITAL SIGNS: Temperature 98.9, blood pressure 130/64. CHEST: Clinically clear. HEART: S1, S2. No definite gallops. ABDOMEN: Soft, nontender. No hepatosplenomegaly. EXTREMITIES: No edema. LABORATORY: WBC count 7.1, hematocrit 27.3. Glucose 131 and 166, and potassium 3.8. IMPRESSION: 1. Acute upper gastrointestinal (GI) bleeding. Hemoglobin and hematocrit stabilizing, status post 3 units of packed cells likely secondary to duodenal ulcer. 2. Cirrhosis with portal hypertension. 3. Gastric varices. 4. Diabetes mellitus type 2. 5. Obesity. 6. Obstructive sleep apnea. PLAN: 1. Dr. Castro's recommendations noted. 2. Dialysis tomorrow. 3. If his hematocrit is stable, consider discharge after discussing with Dr. Castro and Dr. Arteaga. Dictated By: Ivan Brice MD /[email or web address]/preston /Document#: [id number]
[2017-03-27] MEDS: LACTULOSE 30ML CUP PO SCH (21:18)
[2017-03-27] MEDS: ESCITALOPRAM 10 MG TAB PO SCH (21:18)
[2017-03-27] MEDS: ATORVASTATIN 10 MG TAB PO SCH (21:18)
[2017-03-27] MEDS: INSULIN GLARGINE [LANtus] 3 ML PEN SC SCH (21:20)
[2017-03-28] VITALS (11 sets, daily range): BP systolic 122–144; BP diastolic 63–79; PULSE 83–88; RESP 20
[2017-03-28] MEDS: ACCU-CHEK XX SCH (02:00)
[2017-03-28] MEDS: PANTOPRAZOLE (EC) 40 MG TAB PO SCH ×2 (05:38→17:30)
[2017-03-28] MEDS: FUROSEMIDE 40 MG TAB PO SCH (05:38)
[2017-03-28 06:20] LABS: BASOPHILS % 0.3 % (0.0-2.0); EOSINOPHILS # 0.3 10^3/ul (0.0-0.5); EOSINOPHILS % 4.4 % (0.0-7.0); HEMATOCRIT 24.2 % (42.0-52.0); HEMOGLOBIN 7.9 g/dl (14.0-18.0); LYMPHOCYTES # 1.3 10^3/ul (0.8-2.9); LYMPHOCYTES % 18.8 % (15.0-51.0); MEAN CORPUSCULAR HGB CONC 32.6 g/dl (32.0-37.0); MEAN PLATELET VOLUME 10.4 fl (7.4-10.4); MONOCYTE # 0.6 10^3/ul (0.3-0.9); NEUTROPHIL # 4.8 10^3/ul (1.6-7.5); NEUTROPHILS % 68.2 % (39.0-77.0); PLATELET COUNT 146 10^3/UL (140-415); RED BLOOD COUNT 2.72 10^6/ul (4.70-6.10); RED CELL DISTRIBUTION WIDTH 17.2 % (11.5-14.5)
[2017-03-28 06:36] LABS: ALBUMIN 2.5 g/dl (3.3-4.9); ALBUMIN/GLOBULIN RATIO 0.64; BILIRUBIN,INDIRECT 0.7 mg/dl (0-1.1); BILIRUBIN,TOTAL 0.7 mg/dl (0.2-1.3); CALCIUM 8.1 mg/dl (8.4-10.2); CREATININE 5.03 mg/dl (0.61-1.24); POTASSIUM 3.7 mmol/L (3.5-5.1); TOTAL PROTEIN 6.4 g/dl (6.1-8.1)
--- NOTE | 2017-03-28 08:18 | CONS ---
Date/Time of Note Date/Time of Note DATE: 03/28/17 TIME: 08:16 Assessment/Plan Assessment/Plan Problems: (1) ESRD (end stage renal disease) on dialysis Status: Chronic Comment: on HD now... no probs (2) Anemia Status: Chronic Comment: hct lower... will Tx 1 more unit today (3) Upper GI bleed Status: Acute Comment: clinically stable, but hct lower... tx 1 unit now... ?d/c later today? Consultation Date/Type/Reason Admit Date/Time Mar 24, 2017 at 21:09 Initial Consult Date Type of Consultation: renal 24 HR Interval Summary Free Text/Dictation ok... hct lower, but asx... david diet yesterday.... on HD now Exam/Review of Systems Vital Signs Vitals Vital Signs Date Time Temp Pulse Resp B/P Pulse Ox O2 Delivery O2 Flow Rate FiO2 03/28/17 07:35 97.5 73 20 144/79 97 03/27/17 19:58 Room Air 03/24/17 20:08 2 Intake and Output 03/27/17 03/27/17 03/28/17 15:00 23:00 07:00 Intake Total 602 ml 600 ml Output Total 400 ml 400 ml Balance 202 ml 200 ml Exam Constitutional: alert, oriented Head: normocephalic Neck: supple Respiratory: clear to auscultation Cardiovascular: regular rate and rhythm Gastrointestinal: soft Results Result Diagram: 03/28/17 0520 03/28/17 0520 Results 24 hrs Laboratory Tests Test 03/27/17 08:27 03/27/17 11:58 03/27/17 17:23 03/27/17 21:18 Bedside Glucose 131 166 152 168 Test 03/28/17 05:20 03/28/17 08:03 White Blood Count 7.0 Red Blood Count 2.72 L Hemoglobin 7.9 L Hematocrit 24.2 L Mean Corpuscular Volume 89.0 Mean Corpuscular Hemoglobin 29.0 Mean Corpuscular Hemoglobin Concent 32.6 Red Cell Distribution Width 17.2 H Platelet Count 146 Mean Platelet Volume 10.4 Neutrophils % 68.2 Lymphocytes % 18.8 Monocytes % 8.0 Eosinophils % 4.4 Basophils % 0.3 Nucleated Red Blood Cells % 0.0 Neutrophils # 4.8 Lymphocytes # 1.3 Monocytes # 0.6 Eosinophils # 0.3 Basophils # 0.0 Nucleated Red Blood Cells # 0.0 Sodium Level 132 L Potassium Level 3.7 Chloride Level 100 Carbon Dioxide Level 29 Anion Gap 7 L Blood Urea Nitrogen 39 H Creatinine 5.03 H Glucose Level 158 Calcium Level 8.1 L Total Bilirubin 0.7 Direct Bilirubin 0.00 Indirect Bilirubin 0.7 Aspartate Amino Transf (AST/SGOT) 36 Alanine Aminotransferase (ALT/SGPT) 32 Alkaline Phosphatase 106 Total Protein 6.4 Albumin 2.5 L Globulin 3.90 H Albumin/Globulin Ratio 0.64 Bedside Glucose 155 Medications Medications Current Medications Escitalopram Oxalate (Lexapro) 10 mg QHS PO Last administered on 03/27/17 21: 18; Admin Dose 10 MG; Start 03/25/17 at 21:00 Furosemide (Lasix) 40 mg DAILY@06 PO Last administered on 03/28/17 05:38; Admin Dose 40 MG; Start 03/25/17 at 06:00 Insulin Glargine (Lantus) 10 unit QHS SC Last administered on 03/27/17 21:20; Admin Dose 10 UNIT; Start 03/25/17 at 00:00 Lactulose (Enulose) 20 gm QHS PO Last administered on 03/27/17 21:18; Admin Dose 20 GM; Start 03/25/17 at 21:00 Multivitamins Therapeutic (Theragran) 1 tab DAILY PO Last administered on 08:28; Admin Dose 1 TAB; Start 03/25/17 at 09:00 Nifedipine (Procardia Xl) 30 mg DAILY PO Last administered on 03/27/17 08:30; Admin Dose 30 MG; Start 03/25/17 at 09:00 Pantoprazole (Protonix Tab) 40 mg BID@06,18 PO Last administered on 03/28/17 05:38; Admin Dose 40 MG; Start 03/25/17 at 06:00 Atorvastatin Calcium (Lipitor) 10 mg DAILY@21 PO Last administered on 21:18; Admin Dose 10 MG; Start 03/25/17 at 21:00 Diagnostic Test (Pha) (Accu-Chek) 1 ea 02 XX ; Start 03/25/17 at 02:00 Clonidine (Catapres) 0.1 mg Q4H PRN PO ELEVATED BLOOD PRESSURE; Start 03/25/17 at 00:00 Ondansetron HCl (Zofran Inj) 4 mg Q4H PRN IV NAUSEA AND/OR VOMITING; Start at 00:00 Acetaminophen (Tylenol Tab) 500 mg Q4H PRN PO PAIN AND OR ELEVATED TEMP Last administered on 03/26/17 21:22; Admin Dose 500 MG; Start 03/25/17 at 00:00 Miscellaneous Information 1 ea NOTE XX ; Start 03/24/17 at 23:45 Glucose (Glutose) 15 gm Q15M PRN PO DECREASED GLUCOSE; Start 03/24/17 at 23:45 Glucose (Glutose) 22.5 gm Q15M PRN PO DECREASED GLUCOSE; Start 03/24/17 at 23: 45 Dextrose (D50w Syringe) 25 ml Q15M PRN IV DECREASED GLUCOSE; Start 03/24/17 at 23:45 Dextrose (D50w Syringe) 50 ml Q15M PRN IV DECREASED GLUCOSE; Start 03/24/17 at 23:45 Glucagon (Glucagen) 1 mg Q15M PRN IM DECREASED GLUCOSE; Start 03/24/17 at 23:45 Glucose (Glutose) 15 gm Q15M PRN BUCCAL DECREASED GLUCOSE; Start 03/24/17 at 23 :45 Epoetin Sean (Epogen (Esrd)) 10,000 units MoWeFr@17 SC Last administered on 17:26; Admin Dose 10,000 UNITS; Start 03/27/17 at 17:00 NORRIS JOE MD Mar 28, 2017 08:18
[2017-03-28] MEDS: INSULIN ASPART [NOVOLOG] 3 ML PEN SC SCH ×4 (08:27→21:15)
[2017-03-28] MEDS: NIFEdipine (XL) 30 MG TAB PO SCH ×2 (09:00→11:21)
[2017-03-28] MEDS: MULTIVITAMINS THERAPEUTIC TAB PO SCH ×2 (09:00→11:21)
--- NOTE | 2017-03-28 12:20 | CONS ---
Date/Time of Note Date/Time of Note DATE: 03/28/17 TIME: :17 Assessment/Plan Assessment/Plan Additional Assessment/Plan Additional Assessment/Plan IMPRESSION: 1. Upper gastrointestinal bleeding. Most probably from duodenal ulcer. Again, gastric varicose vein cannot be ruled out. Usually, bleeding from the varicose vein is very brisk. 2. 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 3. End-stage renal disease, for which patient is on dialysis. 4. Anemia. 5. Profound weakness Plan Continue PPI Monitor H&H Will transfuse 1 unit of packed cell RBC since hematocrit dropped down to 24. Discussed with Consultation Date/Type/Reason Admit Date/Time Mar 24, 2017 at 21:09 Type of Consultation: renal 24 HR Interval Summary Free Text/Dictation Feels weak after dialysis. Stool is accordion repairer black in color. Exam/Review of Systems Vital Signs Vitals Vital Signs Date Time Temp Pulse Resp B/P Pulse Ox O2 Delivery O2 Flow Rate FiO2 03/28/17 07:35 97.5 73 20 144/79 97 03/27/17 19:58 Room Air 03/24/17 20:08 2 Intake and Output 03/27/17 03/27/17 03/28/17 15:00 23:00 07:00 Intake Total 602 ml 1100 ml Output Total 400 ml 3900 ml Balance 202 ml -2800 ml Exam Constitutional: alert, oriented, well developed Psych: nl mood/affect, no complaints Head: atraumatic, normocephalic Eyes: EOMI, PERRL, nl conjunctiva, nl lids, nl sclera ENMT: nl external ears & nose, nl lips & teeth, nl nasal mucosa & septum Neck: non-tender, supple Respiratory: clear to auscultation, normal air movement Cardiovascular: nl pulses, regular rate and rhythm Gastrointestinal: nl liver, spleen, non-tender, soft Musculoskeletal: nl extremities to inspection, nl gait and stance Extremities: normal pulses 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: OUTREACH ASSOCIATE II-XII intact, nl mental status, nl speech, nl strength Skin: nl turgor, No rash or lesions Lymph: nl lymph nodes Results Result Diagram: 03/28/17 0520 03/28/17 0520 Results 24 hrs Laboratory Tests Test 03/27/17 17:23 03/27/17 21:18 03/28/17 05:20 03/28/17 08:03 Bedside Glucose 152 168 155 White Blood Count 7.0 Red Blood Count 2.72 L Hemoglobin 7.9 L Hematocrit 24.2 L Mean Corpuscular Volume 89.0 Mean Corpuscular Hemoglobin 29.0 Mean Corpuscular Hemoglobin Concent 32.6 Red Cell Distribution Width 17.2 H Platelet Count 146 Mean Platelet Volume 10.4 Neutrophils % 68.2 Lymphocytes % 18.8 Monocytes % 8.0 Eosinophils % 4.4 Basophils % 0.3 Nucleated Red Blood Cells % 0.0 Neutrophils # 4.8 Lymphocytes # 1.3 Monocytes # 0.6 Eosinophils # 0.3 Basophils # 0.0 Nucleated Red Blood Cells # 0.0 Sodium Level 132 L Potassium Level 3.7 Chloride Level 100 Carbon Dioxide Level 29 Anion Gap 7 L Blood Urea Nitrogen 39 H Creatinine 5.03 H Glucose Level 158 Calcium Level 8.1 L Total Bilirubin 0.7 Direct Bilirubin 0.00 Indirect Bilirubin 0.7 Aspartate Amino Transf (AST/SGOT) 36 Alanine Aminotransferase (ALT/SGPT) 32 Alkaline Phosphatase 106 Total Protein 6.4 Albumin 2.5 L Globulin 3.90 H Albumin/Globulin Ratio 0.64 Test 03/28/17 11:54 Bedside Glucose 174 Medications Medications Current Medications Escitalopram Oxalate (Lexapro) 10 mg QHS PO Last administered on 03/27/17 21: 18; Admin Dose 10 MG; Start 03/25/17 at 21:00 Furosemide (Lasix) 40 mg DAILY@06 PO Last administered on 03/28/17 05:38; Admin Dose 40 MG; Start 03/25/17 at 06:00 Insulin Glargine (Lantus) 10 unit QHS SC Last administered on 03/27/17 21:20; Admin Dose 10 UNIT; Start 03/25/17 at 00:00 Lactulose (Enulose) 20 gm QHS PO Last administered on 03/27/17 21:18; Admin Dose 20 GM; Start 03/25/17 at 21:00 Multivitamins Therapeutic (Theragran) 1 tab DAILY PO Last administered on 11:21; Admin Dose 1 TAB; Start 03/25/17 at 09:00 Nifedipine (Procardia Xl) 30 mg DAILY PO Last administered on 03/28/17 11:21; Admin Dose 30 MG; Start 03/25/17 at 09:00 Pantoprazole (Protonix Tab) 40 mg BID@06,18 PO Last administered on 03/28/17 05:38; Admin Dose 40 MG; Start 03/25/17 at 06:00 Atorvastatin Calcium (Lipitor) 10 mg DAILY@21 PO Last administered on 21:18; Admin Dose 10 MG; Start 03/25/17 at 21:00 Diagnostic Test (Pha) (Accu-Chek) 1 ea 02 XX ; Start 03/25/17 at 02:00 Clonidine (Catapres) 0.1 mg Q4H PRN PO ELEVATED BLOOD PRESSURE; Start 03/25/17 at 00:00 Ondansetron HCl (Zofran Inj) 4 mg Q4H PRN IV NAUSEA AND/OR VOMITING; Start at 00:00 Acetaminophen (Tylenol Tab) 500 mg Q4H PRN PO PAIN AND OR ELEVATED TEMP Last administered on 03/26/17 21:22; Admin Dose 500 MG; Start 03/25/17 at 00:00 Miscellaneous Information 1 ea NOTE XX ; Start 03/24/17 at 23:45 Glucose (Glutose) 15 gm Q15M PRN PO DECREASED GLUCOSE; Start 03/24/17 at 23:45 Glucose (Glutose) 22.5 gm Q15M PRN PO DECREASED GLUCOSE; Start 03/24/17 at 23: 45 Dextrose (D50w Syringe) 25 ml Q15M PRN IV DECREASED GLUCOSE; Start 03/24/17 at 23:45 Dextrose (D50w Syringe) 50 ml Q15M PRN IV DECREASED GLUCOSE; Start 03/24/17 at 23:45 Glucagon (Glucagen) 1 mg Q15M PRN IM DECREASED GLUCOSE; Start 03/24/17 at 23:45 Glucose (Glutose) 15 gm Q15M PRN BUCCAL DECREASED GLUCOSE; Start 03/24/17 at 23 :45 Epoetin Sean (Epogen (Esrd)) 10,000 units MoWeFr@17 SC Last administered on 17:26; Admin Dose 10,000 UNITS; Start 03/27/17 at 17:00 STUART STANLEY MD Mar 28, 2017 12:20
--- NOTE | 2017-03-28 18:39 | PN ---
DATE: 03/27/2017 SUBJECTIVE DATA: The patient was seen yesterday; this followup is for yesterday. A 61-year-old male with hep C, end-stage renal disease on dialysis, came to the hospital because of weakness and passing black-colored stool. Patient was on PPI despite that, he continues to have slow bleeding. OBJECTIVE DATA: VITAL SIGNS: Stable. ABDOMEN: Benign. CHEST: Lungs clear. EXTREMITIES: No edema. NEUROLOGIC: Grossly within normal limits. LABORATORY AND DIAGNOSTIC DATA: Hematocrit is 27. IMPRESSION: 1. Gastrointestinal bleeding most probably related to the duodenal ulcer. I doubt varicose vein is the cause of bleeding usually it is profuse. 2. Anemia. 3. End-stage renal disease. 4. Cirrhosis of liver. PLAN: At this point is to continue with PPI, monitor H and H, transfuse on as needed basis. Monitor platelet count. At this point, it is normal. Patient is not a candidate for a beta nicole and if the bleeding persists, then we may have to refer him to [facility] for probably glue injection. Dictated By: Ronaldo Arteaga MD /marlyn/rodney /Document#: [id number] CC: Ivan Brice MD;*EndCC*
--- NOTE | 2017-03-28 20:01 | PN ---
DATE: 03/28/2017 SUBJECTIVE DATA: The patient feels very weak, status post hemodialysis and transfusion 1 unit today. Very poor appetite. OBJECTIVE DATA: GENERAL: Patient is afebrile. VITAL SIGNS: Temperature 98.9, blood pressure 134/73, and O2 sat 94 percent. HEENT: Mild pallor without cyanosis. CHEST: Clinically clear. HEART: S1, S2. No rubs or gallops. EXTREMITIES: No edema. Taylor's negative. LABORATORY: WBC count 7.0, hematocrit 24.2, potassium 3.7, glucose 155 and 175 today. IMPRESSION: 1. Severe anemia secondary to upper gastrointestinal (GI) bleeding most likely from duodenal ulcer. The patient also does have a large gastric varices, bleeding from which is not ruled out. 2. 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 3. End-stage renal disease on hemodialysis. 4. Profound weakness secondary to anemia. PLAN: We will repeat hemoglobin and crit in a.m. and follow recommendations per Dr. Mosqueda and Dr. Arteaga. Transfuse as needed. Dictated By: Ivan Brice MD /marlyn/preston /Document#: [id number]
[2017-03-28] MEDS: ATORVASTATIN 10 MG TAB PO SCH (21:00)
[2017-03-28] MEDS: LACTULOSE 30ML CUP PO SCH (21:13)
[2017-03-28] MEDS: ESCITALOPRAM 10 MG TAB PO SCH (21:13)
[2017-03-28] MEDS: INSULIN GLARGINE [LANtus] 3 ML PEN SC SCH (21:17)
[2017-03-29] MEDS: ACCU-CHEK XX SCH (02:00)
[2017-03-29 02:09] VITALS: BP 134/70; RESP 20
[2017-03-29 06:27] LABS: BASOPHILS % 0.5 % (0.0-2.0); EOSINOPHILS # 0.3 10^3/ul (0.0-0.5); HEMATOCRIT 27.5 % (42.0-52.0); HEMOGLOBIN 8.9 g/dl (14.0-18.0); LYMPHOCYTES # 1.4 10^3/ul (0.8-2.9); LYMPHOCYTES % 22.2 % (15.0-51.0); MEAN CORPUSCULAR HEMOGLOBIN 29.4 pg (29.0-33.0); MEAN CORPUSCULAR HGB CONC 32.4 g/dl (32.0-37.0); MEAN CORPUSCULAR VOLUME 90.8 fl (82.0-101.0); MEAN PLATELET VOLUME 10.7 fl (7.4-10.4); MONOCYTE # 0.5 10^3/ul (0.3-0.9); MONOCYTES % 8.5 % (0.0-11.0); NEUTROPHIL # 3.9 10^3/ul (1.6-7.5); NEUTROPHILS % 63.5 % (39.0-77.0); PLATELET COUNT 156 10^3/UL (140-415); RED BLOOD COUNT 3.03 10^6/ul (4.70-6.10); RED CELL DISTRIBUTION WIDTH 16.9 % (11.5-14.5); WHITE BLOOD COUNT 6.2 10^3/ul (4.8-10.8)
[2017-03-29] MEDS: FUROSEMIDE 40 MG TAB PO SCH (06:27)
[2017-03-29] MEDS: PANTOPRAZOLE (EC) 40 MG TAB PO SCH (06:27)
[2017-03-29] MEDS: INSULIN ASPART [NOVOLOG] 3 ML PEN SC SCH ×2 (08:15→12:15)
[2017-03-29] MEDS: NIFEdipine (XL) 30 MG TAB PO SCH (08:26)
[2017-03-29] MEDS: MULTIVITAMINS THERAPEUTIC TAB PO SCH (08:26)
--- NOTE | 2017-03-29 08:34 | CONS ---
Date/Time of Note Date/Time of Note DATE: 03/29/17 TIME: 08:31 Assessment/Plan Assessment/Plan Problems: (1) HTN (hypertension) Comment: stable (2) Upper GI bleed Status: Acute Comment: asx...nice hct bump (3) Anemia Status: Chronic Comment: Hgb up to 8.9 post blood... OK to d/c per me (4) ESRD (end stage renal disease) on dialysis Status: Chronic Comment: stable.. next HD Consultation Date/Type/Reason Admit Date/Time Mar 24, 2017 at 21:09 Type of Consultation: renal 24 HR Interval Summary Free Text/Dictation no new c/o...did get 1 U PRBC yesterday Exam/Review of Systems Vital Signs Vitals Vital Signs Date Time Temp Pulse Resp B/P Pulse Ox O2 Delivery O2 Flow Rate FiO2 03/29/17 02:09 98.3 85 20 134/70 92 03/27/17 19:58 Room Air Intake and Output 03/28/17 03/28/17 03/29/17 15:00 23:00 07:00 Intake Total 560 ml 350 ml Output Total 0 ml 100 ml Balance 560 ml 250 ml Exam Constitutional: alert, oriented Neck: supple Respiratory: clear to auscultation Cardiovascular: regular rate and rhythm Gastrointestinal: soft Extremities: edema (no) Results Result Diagram: 03/29/17 0520 03/28/17 0520 Results 24 hrs Laboratory Tests Test 03/28/17 11:54 03/28/17 17:05 03/28/17 21:11 03/29/17 02:14 Bedside Glucose 174 189 228 H 142 Test 03/29/17 05:20 03/29/17 08:26 White Blood Count 6.2 Red Blood Count 3.03 L Hemoglobin 8.9 L Hematocrit 27.5 L Mean Corpuscular Volume 90.8 Mean Corpuscular Hemoglobin 29.4 Mean Corpuscular Hemoglobin Concent 32.4 Red Cell Distribution Width 16.9 H Platelet Count 156 Mean Platelet Volume 10.7 H Neutrophils % 63.5 Lymphocytes % 22.2 Monocytes % 8.5 Eosinophils % 5.0 Basophils % 0.5 Nucleated Red Blood Cells % 0.0 Neutrophils # 3.9 Lymphocytes # 1.4 Monocytes # 0.5 Eosinophils # 0.3 Basophils # 0.0 Nucleated Red Blood Cells # 0.0 Bedside Glucose 129 Medications Medications Current Medications Escitalopram Oxalate (Lexapro) 10 mg QHS PO Last administered on 03/28/17 21: 13; Admin Dose 10 MG; Start 03/25/17 at 21:00 Furosemide (Lasix) 40 mg DAILY@06 PO Last administered on 03/29/17 06:27; Admin Dose 40 MG; Start 03/25/17 at 06:00 Insulin Glargine (Lantus) 10 unit QHS SC Last administered on 03/28/17 21:17; Admin Dose 10 UNIT; Start 03/25/17 at 00:00 Lactulose (Enulose) 20 gm QHS PO Last administered on 03/28/17 21:13; Admin Dose 20 GM; Start 03/25/17 at 21:00 Multivitamins Therapeutic (Theragran) 1 tab DAILY PO Last administered on 08:26; Admin Dose 1 TAB; Start 03/25/17 at 09:00 Nifedipine (Procardia Xl) 30 mg DAILY PO Last administered on 03/29/17 08:26; Admin Dose 30 MG; Start 03/25/17 at 09:00 Pantoprazole (Protonix Tab) 40 mg BID@06,18 PO Last administered on 03/29/17 06:27; Admin Dose 40 MG; Start 03/25/17 at 06:00 Atorvastatin Calcium (Lipitor) 10 mg DAILY@21 PO Last administered on 21:18; Admin Dose 10 MG; Start 03/25/17 at 21:00 Diagnostic Test (Pha) (Accu-Chek) 1 ea 02 XX ; Start 03/25/17 at 02:00 Clonidine (Catapres) 0.1 mg Q4H PRN PO ELEVATED BLOOD PRESSURE; Start 03/25/17 at 00:00 Ondansetron HCl (Zofran Inj) 4 mg Q4H PRN IV NAUSEA AND/OR VOMITING; Start at 00:00 Acetaminophen (Tylenol Tab) 500 mg Q4H PRN PO PAIN AND OR ELEVATED TEMP Last administered on 03/26/17 21:22; Admin Dose 500 MG; Start 03/25/17 at 00:00 Miscellaneous Information 1 ea NOTE XX ; Start 03/24/17 at 23:45 Glucose (Glutose) 15 gm Q15M PRN PO DECREASED GLUCOSE; Start 03/24/17 at 23:45 Glucose (Glutose) 22.5 gm Q15M PRN PO DECREASED GLUCOSE; Start 03/24/17 at 23: 45 Dextrose (D50w Syringe) 25 ml Q15M PRN IV DECREASED GLUCOSE; Start 03/24/17 at 23:45 Dextrose (D50w Syringe) 50 ml Q15M PRN IV DECREASED GLUCOSE; Start 03/24/17 at 23:45 Glucagon (Glucagen) 1 mg Q15M PRN IM DECREASED GLUCOSE; Start 03/24/17 at 23:45 Glucose (Glutose) 15 gm Q15M PRN BUCCAL DECREASED GLUCOSE; Start 03/24/17 at 23 :45 Epoetin Sean (Epogen (Esrd)) 10,000 units MoWeFr@17 SC Last administered on t 17:26; Admin Dose 10,000 UNITS; Start 03/27/17 at 17:00 NORRIS JOE MD Mar 29, 2017 08:34
--- NOTE | 2017-03-29 11:23 | PDOCDIS ---
Discharge Instructions CONDITION Patient Condition: Stable HOME CARE INSTRUCTIONS: Diet Instructions: Special Diet: 2500 ADA diet ACTIVITY: Activity Restrictions: Slowly Increase Activity FOLLOW UP/APPOINTMENTS Follow-up Plan tube roller at [facility] 1 week Donald in 2 weeks Neptali in 2 weeks STUART STANLEY MD Mar 29, 2017 11:23
--- NOTE | 2017-03-29 11:26 | CONS ---
Date/Time of Note Date/Time of Note DATE: 03/29/17 TIME: 11:25 Assessment/Plan Assessment/Plan Additional Assessment/Plan Additional Assessment/Plan IMPRESSION: 1. Upper gastrointestinal bleeding. Most probably from duodenal ulcer. Again, gastric varicose vein cannot be ruled out. Usually, bleeding from the varicose vein is very brisk. 2. 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 3. End-stage renal disease, for which patient is on dialysis. 4. Anemia. 5. Profound weakness Plan Continue PPI Monitor H&H Will transfuse 1 unit of packed cell RBC since hematocrit dropped down to 24. Discussed with pt stable and can be discharged home Consultation Date/Type/Reason Admit Date/Time Mar 24, 2017 at 21:09 Type of Consultation: renal 24 HR Interval Summary Constitutional: improved, no complaints Exam/Review of Systems Vital Signs Vitals Vital Signs Date Time Temp Pulse Resp B/P Pulse Ox O2 Delivery O2 Flow Rate FiO2 03/29/17 02:09 98.3 85 20 134/70 92 03/27/17 19:58 Room Air Intake and Output 03/28/17 03/28/17 03/29/17 15:00 23:00 07:00 Intake Total 560 ml 350 ml Output Total 0 ml 100 ml Balance 560 ml 250 ml Exam Constitutional: alert, oriented, well developed Psych: nl mood/affect, no complaints Head: atraumatic, normocephalic Eyes: EOMI, PERRL, nl conjunctiva, nl lids, nl sclera ENMT: nl external ears & nose, nl lips & teeth, nl nasal mucosa & septum Neck: non-tender, supple Respiratory: clear to auscultation, normal air movement Cardiovascular: nl pulses, regular rate and rhythm Gastrointestinal: nl liver, spleen, non-tender, soft Musculoskeletal: nl extremities to inspection, nl gait and stance Extremities: normal pulses 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: HAT PRESSER II-XII intact, nl mental status, nl speech, nl strength Skin: nl turgor, No rash or lesions Lymph: nl lymph nodes Results Result Diagram: 03/29/17 0520 03/28/17 0520 Results 24 hrs Laboratory Tests Test 03/28/17 11:54 03/28/17 17:05 03/28/17 21:11 03/29/17 02:14 Bedside Glucose 174 189 228 H 142 Test 03/29/17 05:20 03/29/17 08:26 White Blood Count 6.2 Red Blood Count 3.03 L Hemoglobin 8.9 L Hematocrit 27.5 L Mean Corpuscular Volume 90.8 Mean Corpuscular Hemoglobin 29.4 Mean Corpuscular Hemoglobin Concent 32.4 Red Cell Distribution Width 16.9 H Platelet Count 156 Mean Platelet Volume 10.7 H Neutrophils % 63.5 Lymphocytes % 22.2 Monocytes % 8.5 Eosinophils % 5.0 Basophils % 0.5 Nucleated Red Blood Cells % 0.0 Neutrophils # 3.9 Lymphocytes # 1.4 Monocytes # 0.5 Eosinophils # 0.3 Basophils # 0.0 Nucleated Red Blood Cells # 0.0 Bedside Glucose 129 Medications Medications Current Medications Escitalopram Oxalate (Lexapro) 10 mg QHS PO Last administered on 03/28/17 21: 13; Admin Dose 10 MG; Start 03/25/17 at 21:00 Furosemide (Lasix) 40 mg DAILY@06 PO Last administered on 03/29/17 06:27; Admin Dose 40 MG; Start 03/25/17 at 06:00 Insulin Glargine (Lantus) 10 unit QHS SC Last administered on 03/28/17 21:17; Admin Dose 10 UNIT; Start 03/25/17 at 00:00 Lactulose (Enulose) 20 gm QHS PO Last administered on 03/28/17 21:13; Admin Dose 20 GM; Start 03/25/17 at 21:00 Multivitamins Therapeutic (Theragran) 1 tab DAILY PO Last administered on 08:26; Admin Dose 1 TAB; Start 03/25/17 at 09:00 Nifedipine (Procardia Xl) 30 mg DAILY PO Last administered on 03/29/17 08:26; Admin Dose 30 MG; Start 03/25/17 at 09:00 Pantoprazole (Protonix Tab) 40 mg BID@06,18 PO Last administered on 03/29/17 06:27; Admin Dose 40 MG; Start 03/25/17 at 06:00 Atorvastatin Calcium (Lipitor) 10 mg DAILY@21 PO Last administered on 21:18; Admin Dose 10 MG; Start 03/25/17 at 21:00 Diagnostic Test (Pha) (Accu-Chek) 1 ea 02 XX ; Start 03/25/17 at 02:00 Clonidine (Catapres) 0.1 mg Q4H PRN PO ELEVATED BLOOD PRESSURE; Start 03/25/17 at 00:00 Ondansetron HCl (Zofran Inj) 4 mg Q4H PRN IV NAUSEA AND/OR VOMITING; Start at 00:00 Acetaminophen (Tylenol Tab) 500 mg Q4H PRN PO PAIN AND OR ELEVATED TEMP Last administered on 03/26/17 21:22; Admin Dose 500 MG; Start 03/25/17 at 00:00 Miscellaneous Information 1 ea NOTE XX ; Start 03/24/17 at 23:45 Glucose (Glutose) 15 gm Q15M PRN PO DECREASED GLUCOSE; Start 03/24/17 at 23:45 Glucose (Glutose) 22.5 gm Q15M PRN PO DECREASED GLUCOSE; Start 03/24/17 at 23: 45 Dextrose (D50w Syringe) 25 ml Q15M PRN IV DECREASED GLUCOSE; Start 03/24/17 at 23:45 Dextrose (D50w Syringe) 50 ml Q15M PRN IV DECREASED GLUCOSE; Start 03/24/17 at 23:45 Glucagon (Glucagen) 1 mg Q15M PRN IM DECREASED GLUCOSE; Start 03/24/17 at 23:45 Glucose (Glutose) 15 gm Q15M PRN BUCCAL DECREASED GLUCOSE; Start 03/24/17 at 23 :45 Epoetin Sean (Epogen (Esrd)) 10,000 units MoWeFr@17 SC Last administered on 17:26; Admin Dose 10,000 UNITS; Start 03/27/17 at 17:00 STUART STANLEY MD Mar 29, 2017 11:26
== END 2017-03-29 12:58 | disposition home or self-care (01) | DRG 811 ==
LOC: E/R 17:32 → MS2 21:09
PROVIDERS: ADMIT Internal Medicine; ATTEND Internal Medicine
PROC: 30233N1 Transfusion of Nonautologous Red Blood Cells into Peripheral Vein, Percutaneous Approach (ICD-10-PCS; principal; 2017-03-24)
PROC: 5A1D60Z (ICD-10-PCS; 2017-03-25)
DX: D62 Acute posthemorrhagic anemia (principal); K26.4 Chronic or unspecified duodenal ulcer with hemorrhage; N18.6 End stage renal disease; I85.00 Esophageal varices without bleeding; K76.6 Portal hypertension; I12.0 Hypertensive chronic kidney disease with stage 5 chronic kidney disease or end stage renal disease; N39.0 Urinary tract infection, site not specified; B19.20 Unspecified viral hepatitis C without hepatic coma; I86.4 Gastric varices; G47.33 Obstructive sleep apnea (adult) (pediatric); Z99.2 Dependence on renal dialysis; I83.93 Asymptomatic varicose veins of bilateral lower extremities; E11.9 Type 2 diabetes mellitus without complications; Z79.4 Long term (current) use of insulin
CPT/HCPCS: 36415; 36430; 71010; 80048; 80053; 82962; 84484; 85025; 85610; 85730; 86850; 86900; 86901; 86920; 87081; 90935; 93005; 93970; 96374; C9113; J1815; J7040; P9016; Q4081

== ENCOUNTER 2017-05-02 18:10 | Inpatient (IN) | payer BC ==
[~2017-05-02] VITALS: Ht 182.9 cm; Wt 117.3 kg
[2017-05-02 18:12] VITALS: Ht 182.9 cm; Wt 117.3 kg
[2017-05-02] MEDS ORDERED: PANTOPRAZOLE IV 80 MG in SOD CHLORIDE 0.9% 100 ML IVPB STA (19:05)
[2017-05-02 19:40] LABS: ABNORMAL IP MESSAGE 1; BASOPHILS % 0.5 % (0.0-2.0); EOSINOPHILS # 0.2 10^3/ul (0.0-0.5); EOSINOPHILS % 5.5 % (0.0-7.0); HEMATOCRIT 22.8 % (42.0-52.0); LYMPHOCYTES % 22.8 % (15.0-51.0); MEAN CORPUSCULAR HEMOGLOBIN 29.4 pg (29.0-33.0); MEAN CORPUSCULAR HGB CONC 29.4 g/dl (32.0-37.0); MEAN PLATELET VOLUME 10.4 fl (7.4-10.4); MONOCYTE # 0.5 10^3/ul (0.3-0.9); MONOCYTES % 12.1 % (0.0-11.0); NEUTROPHIL # 2.6 10^3/ul (1.6-7.5); NEUTROPHILS % 58.9 % (39.0-77.0); PLATELET COUNT 119 10^3/UL (140-415); POSITIVE DIFF @See below; RED BLOOD COUNT 2.28 10^6/ul (4.70-6.10); RED CELL DISTRIBUTION WIDTH 17.6 % (11.5-14.5); WHITE BLOOD COUNT 4.4 10^3/ul (4.8-10.8)
[2017-05-02 19:44] LABS: HEMOGLOBIN 6.7 g/dl (14.0-18.0)
[2017-05-02] MEDS ORDERED: SOD CHLORIDE 0.9% 250 ML IV ONE (19:53)
[2017-05-02 19:55] LABS: INR 1.01; PROTIME 13.3 Sec (12.2-14.2)
[2017-05-02 20:01] LABS: ALBUMIN 3.4 g/dl (3.3-4.9); ALBUMIN/GLOBULIN RATIO 0.72; BILIRUBIN,INDIRECT 0.5 mg/dl (0-1.1); BILIRUBIN,TOTAL 0.5 mg/dl (0.2-1.3); CALCIUM 8.1 mg/dl (8.4-10.2); CREATININE 2.67 mg/dl (0.61-1.24); POTASSIUM 3.2 mmol/L (3.5-5.1); TOTAL PROTEIN 8.1 g/dl (6.1-8.1)
[2017-05-02 20:10] LABS: TROPONIN-I 0.034 ng/ml (0.00-0.12)
[2017-05-02] MEDS ORDERED: POTASSIUM CHLORIDE (SR) 20 MEQ TAB PO ONE ×2 (20:18→22:30)
--- NOTE | 2017-05-02 20:26 | ERD ---
ER Documentation Chief Complaint Chief Complaint sent by pmd for low hemoglobin 6.5 today, had dialysis today HPI This is a 62-year-old male with end-stage renal disease who presents to the emergency room after being sent in by his primary care physician, Dr. Mora for evaluation of low hemoglobin. This patient did have dialysis today and according to prehospital gnosis patient was found to have a hemoglobin of 6.5 at an outside facility. He does have a history of a GI bleed , his is at bedside and states that the patient does have dark stools however he denies any vomiting or abdominal pain. The patient was brought in for further evaluation and has no other complaints at this time besides generalized weakness ROS All systems reviewed and are negative except as per history of present illness. Medications Home Meds Active Scripts Multivitamins* (Theragran*) 1 Tab Tab, 1 TAB PO DAILY for 30 Days, #30 TAB Prov:JENY MORA MD 03/11/17 Pantoprazole* (Pantoprazole*) 40 Mg Tablet.dr, 40 MG PO BID@06,18 for 30 Days, # 30 Prov:JENY MORA MD 03/11/17 Furosemide* (Furosemide*) 40 Mg Tablet, 40 MG PO DAILY for 30 Days, #30 TAB Prov:JENY MORA MD 03/11/17 Escitalopram Oxalate* (Escitalopram Oxalate*) 10 Mg Tablet, 10 MG PO QHS for 30 Days, #30 TAB Prov:JENY MORA MD 03/11/17 Nifedipine (Procardia Xl) 30 Mg Tab.er.24, 30 MG PO DAILY for 30 Days, #30 TAB Prov:JENY MORA MD 03/11/17 Trimethoprim-Sulfamethoxazole* (Bactrim*) 400-80 Mg Tab, 1 TAB PO DAILY for 30 Days, #30 TAB Prov:JENY MORA MD 03/11/17 Reported Medications Insulin Glargine* (Lantus*) 100 Unit/Ml Soln, 15 UNIT SC QHS, #1 VIAL TAKE 15-20 UNITS 02/25/17 Simvastatin* (Zocor*) 20 Mg Tablet, 20 MG PO QHS, #30 TAB 10/24/16 Lactulose* (Lactulose*) 20 Gm/30 Ml Solution, 20 GM PO QHS, ML 05/30/15 Allergies Allergies: Coded Allergies: ceftriaxone (Unverified Allergy, Intermediate, RASH, 03/24/17) per Mess notes 02/02/17 - rash with rocephin PMhx/Soc History of Surgery: Yes (APPENDECTOMY, FISTULA AND PERMACATH PLACEMENT, RIGHT ANKLE SURGERY) Anesthesia Reaction: No Hx 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 Disorder: No Hx Respiratory Disorders: Yes (SLEEP APNEA) Hx Cardiac Disorders: Yes (HTN, CHF, ) Hx Psychiatric Problems: Yes (DEPRESSION) Hx Miscellaneous Medical Probl: No Hx Alcohol Use: No Hx Substance Use: No Hx Tobacco Use: No Physical Exam Vitals Vital Signs Date Time Temp Pulse Resp B/P Pulse Ox O2 Delivery O2 Flow Rate FiO2 05/02/17 18:12 99.0 83 20 112/59 99 Physical Exam INITIAL VITAL SIGNS: Reviewed by me GENERAL: The patient is well developed and appropriate for usual state of health in no apparent distress HEENT: Pupils equal, round, and reactive to light. EOMI. There is no scleral icterus. NECK: C-spine is soft and supple, there is no meningismus. There is no cervical lymphadenopathy. LUNGS: Clear to auscultation bilaterally. There are no rales, wheezes or rhonchi. HEART: Regular rate and rhythm, no murmurs, clicks, rubs or gallops. ABDOMEN: Soft, non-tender, non-distended. There are bowel sounds in all four quadrants. No rebound or guarding. EXTREMITIES: There is no peripheral cyanosis or edema. No focal swelling or erythema. NEUROLOGICAL: The patient moves all four extremities with 5/5 strength. Cranial nerves II - XII are intact. Normal gait. Alert and oriented SKIN: There is no apparent rash or petechiae. HEME/LYMPHATIC: There is no evidence of excessive bruising or lymphedema. PSYCHIATRIC: The patient does not appear anxious or depressed. Result Diagram: 05/02/17191405/02/171914 Results 24 hrs Laboratory Tests Test 05/02/17 19:15 White Blood Count 4.410^3/ul Red Blood Count 2.2810^6/ul Hemoglobin 6.7g/dl Hematocrit 22.8% Mean Corpuscular Volume 100.0fl Mean Corpuscular Hemoglobin 29.4pg Mean Corpuscular Hemoglobin Concent 29.4g/dl Red Cell Distribution Width 17.6% Platelet Count 23189^3/UL Mean Platelet Volume 10.4fl Neutrophils % 58.9% Lymphocytes % 22.8% Monocytes % 12.1% Eosinophils % 5.5% Basophils % 0.5% Nucleated Red Blood Cells % 0.0/100WBC Neutrophils # 2.610^3/ul Lymphocytes # 1.010^3/ul Monocytes # 0.510^3/ul Eosinophils # 0.210^3/ul Basophils # 0.010^3/ul Nucleated Red Blood Cells # 0.010^3/ul Prothrombin Time 13.3Sec Prothrombin Time Ratio 1.0 INR International Normalized Ratio 1.01 Activated Partial Thromboplast Time 32.0Sec Sodium Level 138mmol/L Potassium Level 3.2mmol/L Chloride Level 95mmol/L Carbon Dioxide Level 35mmol/L Anion Gap 11 Blood Urea Nitrogen 23mg/dl Creatinine 2.67mg/dl Glucose Level 165mg/dl Calcium Level 8.1mg/dl Total Bilirubin 0.5mg/dl Direct Bilirubin 0.00mg/dl Indirect Bilirubin 0.5mg/dl Aspartate Amino Transf (AST/SGOT) 55IU/L Alanine Aminotransferase (ALT/SGPT) 42IU/L Alkaline Phosphatase 188IU/L Troponin I 0.034ng/ml Total Protein 8.1g/dl Albumin 3.4g/dl Globulin 4.70g/dl Albumin/Globulin Ratio 0.72 Current Medications Medications (Trade) Dose Ordered Sig/Irasema Route PRN Reason Start Time Stop Time Status Last Admin Dose Admin Pantoprazole 80 mg/Sodium Chloride 100 ml @ 400 mls/hr ONCE STAT IVPB 05/02/17 19:05 05/02/17 19:19 DC Sodium Chloride (NS) 250 ml @ 0 mls/hr Q0M ONCE IV 05/02/17 19:53 05/02/17 19:58 DC Potassium Chloride (Klor-Con 20) 40 meq ONCE STAT PO 05/02/17 20:18 05/02/17 20:19 UNV Procedures/MDM EKG: Rate/Rhythm: [Normal Sinus Rhythm] QRS, ST, T-waves: [No changes consistent w/ acute ischemia] Impression: [No evidence of ischemia or arrhythmia] This 62-year-old male presents to the ER for evaluation of low hemoglobin. He had lab work done in outside facility which showed a hemoglobin less than 7. Repeat hemoglobin in the emergency room does show a low hemoglobin of 6.7. This she does have a history of previous GI bleed, he has no active vomiting at this time. The patient was hemodynamically stable when I evaluated him. Given his low hemoglobin this patient will be transfused 1 unit of packed red blood cells here in the emergency room. He will be placed in for admission at this time on the [facility] floor under the care of Dr. Mora who is okay with her plan of care. The patient was given a bolus of 80 mg of Protonix IV. Patient was also found to be hypokalemic with a potassium 3.2 however he does not have any EKG changes. The patient and the patient's family members are aware of her disposition and plan for admission are okay with our medical course at this time. Critical Care: Excluding all billable procedures Time: 36 minutes Treatments/Evaluations: Close monitoring and treatment of unstable vital signs, cardiorespiratory, and neurologic status, while maintaining tight balance of fluid, respiratory, and cardiac interventions. Departure Diagnosis: Primary Impression: Acute blood loss anemia Additional Impressions: Encounter for laboratory test Hypokalemia ESRD (end stage renal disease) on dialysis Condition: Stable JUAN M LAWRENCE DO May 02, 2017 20:26
[2017-05-02] MEDS ORDERED: ONDANSETRON 4 MG INJ IV PRN (20:30)
[2017-05-02] MEDS ORDERED: ACETAMINOPHEN 325 MG TAB PO PRN (20:30)
[2017-05-02 20:50] VITALS: TEMP 98.7
[2017-05-02 21:30] VITALS: BP 180/80; RESP 20
[2017-05-02] MEDS ORDERED: GLUCAGON 1 MG INJ IM PRN (23:00)
[2017-05-02] MEDS ORDERED: GLUCOSE GEL 15 GRAM TUBE PO PRN ×2 (23:00)
[2017-05-02] MEDS ORDERED: GLUCOSE GEL 15 GRAM TUBE BUCCAL PRN (23:00)
[2017-05-02] MEDS ORDERED: DEXTROSE 50% 50 ML SYRINGE IV PRN ×2 (23:00)
[2017-05-02 23:35] VITALS: BP 145/66; PULSE 78
[2017-05-03] VITALS: BP 123/64; RESP 20
[2017-05-03] MEDS: ACCU-CHEK XX SCH (02:00)
[2017-05-03] MEDS ORDERED: ACCU-CHEK XX SCH (02:00)
[2017-05-03] MEDS: FUROSEMIDE 40 MG TAB PO SCH (06:09)
[2017-05-03 07:59] VITALS: BP 121/58; RESP 16
[2017-05-03] MEDS: INSULIN ASPART [NOVOLOG] 3 ML PEN SC SCH ×4 (08:15→20:47)
[2017-05-03] MEDS: PANTOPRAZOLE (EC) 40 MG TAB PO SCH ×2 (08:23→17:31)
[2017-05-03] MEDS: NIFEdipine (XL) 30 MG TAB PO SCH (09:50)
[2017-05-03 09:51] VITALS: BP 138/66; PULSE 73
[2017-05-03] MEDS: MULTIVITAMINS THERAPEUTIC TAB PO SCH (09:51)
[2017-05-03 11:31] LABS: BASOPHILS % 0.8 % (0.0-2.0); EOSINOPHILS # 0.4 10^3/ul (0.0-0.5); EOSINOPHILS % 6.7 % (0.0-7.0); HEMATOCRIT 26.1 % (42.0-52.0); HEMOGLOBIN 7.9 g/dl (14.0-18.0); LYMPHOCYTES # 1.5 10^3/ul (0.8-2.9); LYMPHOCYTES % 28.3 % (15.0-51.0); MEAN CORPUSCULAR HEMOGLOBIN 29.4 pg (29.0-33.0); MEAN CORPUSCULAR HGB CONC 30.3 g/dl (32.0-37.0); MEAN PLATELET VOLUME 11.9 fl (7.4-10.4); MONOCYTE # 0.5 10^3/ul (0.3-0.9); MONOCYTES % 9.1 % (0.0-11.0); NEUTROPHIL # 2.8 10^3/ul (1.6-7.5); NEUTROPHILS % 54.7 % (39.0-77.0); PLATELET COUNT 118 10^3/UL (140-415); RED BLOOD COUNT 2.69 10^6/ul (4.70-6.10); RED CELL DISTRIBUTION WIDTH 19.4 % (11.5-14.5); WHITE BLOOD COUNT 5.2 10^3/ul (4.8-10.8)
[2017-05-03 11:56] LABS: CALCIUM 8.1 mg/dl (8.4-10.2); CREATININE 3.61 mg/dl (0.61-1.24); POTASSIUM 4.7 mmol/L (3.5-5.1)
[2017-05-03 17:10] VITALS: BP 146/77; RESP 16
--- NOTE | 2017-05-03 18:47 | HP ---
DATE OF ADMISSION: 05/02/2017 SUBJECTIVE: Increasing weakness and anemia, severe. The patient is a 62-year-old gentleman with hi story of end-stage renal disease on maintenance hemodialysis, status post last hospitalization in [facility] for upper GI bleed and he has been doing fairly well. The patient began having some weaknes s and hemoglobin was 6.5, and patient was evaluated in the emergency room and was admitted. MEDICATIONS: Include: 1. Citalopram 10 mg daily. 2. Nifedipine 30 mg daily. 3. Simvastatin 20 mg daily. 4. Furosemide 40 mg daily. 5. Lactulose 20 grams at bedtime. 6. Lantus 20 units at bedtime. 7. Protonix 40 mg daily. 8. The patient had previously been on Bactrim single strength, which he stopped as he states that h e was having abdominal pain after taking that. It was being given for prophylaxis for spontaneous b acterial peritonitis. For detailed prior medical history, please refer to my earlier records. ALLERGIES: RIFAXIMIN. FAMILY HISTORY: Mother had hypertension. Four sisters who have diabetes and hypertension. One bro ther at age 75 of coronary artery disease. REVIEW OF SYSTEMS: HEAD: No history of headaches. No history of strokes. No history of any intracranial bleeds. EYES: No blurry vision or glaucoma. ENT: Noncontributory. NECK: No history of neck pain or thyroid disease. CHEST: No bronchitis, hay fever or asthma. The patient has a history of obstructive sleep apnea wh ich has significantly improved with weight loss. HEART: No PND, orthopnea, palpitations. Lexiscan was unremarkable a few years ago, was negative ab out a month ago. 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 Patient does have portal hypertension. GENITOURINARY: No dysuria, hematuria or kidney stones. The patient has lost a significant amount o f weight in the last 3 months. PHYSICAL EXAMINATION: GENERAL: The patient is a mildly obesely-built male who is presently in no acute distress. VITAL SIGNS: Temperature 98.5, blood pressure 180/80 on admission, O2 saturation 96% on room air. HEENT: Head normocephalic. Moderate pallor without cyanosis. JVD is not increased. CHEST: Clinically clear. HEART: S1, S2 heard, no definite gallops. ABDOMEN: Obese, nontender, no hepatosplenomegaly. EXTREMITIES: Trace edema. Homans negative. NEUROLOGIC: No localizing or lateralizing signs. LABORATORY DATA: Hemoglobin initially 6.5, repeat was 6.7, with hematocrit 22.8, platelet count of 119,000. Potassium 3.2, BUN 23, creatinine 2.67, glucose 167. IMPRESSION: 1. Severe anemia, likely secondary to upper gastrointestinal bleed, not clear from duodenal ulcer v ersus variceal bleed. 2. Cirrhosis with portal hypertension, history of hepatitis C, treated. No evidence of any residua l infection. 3. Diabetes mellitus type 2, well controlled. 4. Obesity. 5. Obstructive sleep apnea. 6. Underlying major depression. 7. thrombocytopenia. PLAN: We will closely monitor hemoglobin and hematocrit. Stool for OB has been done, which came ba ck positive. We will closely monitor hemoglobin and hematocrit, recheck CBC in the a.m. and we will follow up nephrology consultation with Dr. Da Silva, and GI consultation, Dr. Arteaga, and follow recommendations. Continue PPIs for now, hold aspirin or any anticoagulants. We will encourage enmanuel ent to ambulate as much as possible. Dictated By: JENY MORA MD, SR/PEG Conf#: [id number] DID#: [id number]
[2017-05-03 19:38] VITALS: BP 132/65; RESP 20
[2017-05-03] MEDS: LACTULOSE 30ML CUP PO SCH (20:39)
[2017-05-03] MEDS: INSULIN GLARGINE [LANtus] 3 ML PEN SC SCH (20:44)
[2017-05-04 01:35] VITALS: BP 144/70; RESP 20
[2017-05-04] MEDS: ACCU-CHEK XX SCH (02:38)
[2017-05-04] MEDS: PANTOPRAZOLE (EC) 40 MG TAB PO SCH ×2 (06:05→17:07)
[2017-05-04] MEDS: FUROSEMIDE 40 MG TAB PO SCH (06:06)
[2017-05-04 06:17] LABS: BASOPHILS % 0.5 % (0.0-2.0); EOSINOPHILS # 0.3 10^3/ul (0.0-0.5); EOSINOPHILS % 6.9 % (0.0-7.0); HEMATOCRIT 24.2 % (42.0-52.0); HEMOGLOBIN 7.5 g/dl (14.0-18.0); LYMPHOCYTES # 1.2 10^3/ul (0.8-2.9); LYMPHOCYTES % 28.6 % (15.0-51.0); MEAN CORPUSCULAR HEMOGLOBIN 30.2 pg (29.0-33.0); MEAN CORPUSCULAR VOLUME 97.6 fl (82.0-101.0); MEAN PLATELET VOLUME 11.1 fl (7.4-10.4); MONOCYTE # 0.4 10^3/ul (0.3-0.9); MONOCYTES % 9.5 % (0.0-11.0); NEUTROPHIL # 2.3 10^3/ul (1.6-7.5); NEUTROPHILS % 54.3 % (39.0-77.0); PLATELET COUNT 109 10^3/UL (140-415); RED BLOOD COUNT 2.48 10^6/ul (4.70-6.10); RED CELL DISTRIBUTION WIDTH 18.8 % (11.5-14.5); WHITE BLOOD COUNT 4.2 10^3/ul (4.8-10.8)
[2017-05-04 06:42] LABS: CALCIUM 8.1 mg/dl (8.4-10.2); CREATININE 4.75 mg/dl (0.61-1.24); MAGNESIUM 2.5 mg/dl (1.7-2.5)
[2017-05-04 08:18] VITALS: BP 118/66; PULSE 64; RESP 18
[2017-05-04] MEDS: MULTIVITAMINS THERAPEUTIC TAB PO SCH (08:19)
[2017-05-04] MEDS: NIFEdipine (XL) 30 MG TAB PO SCH (08:20)
[2017-05-04] MEDS: INSULIN ASPART [NOVOLOG] 3 ML PEN SC SCH ×4 (08:21→20:32)
--- NOTE | 2017-05-04 11:56 | PREOPHP ---
DATE OF ADMISSION: 05/02/2017 RENAL CONSULTATION REASON FOR CONSULTATION: End-stage renal disease. HISTORY OF PRESENT ILLNESS: This 62-year-old man was admitted 2 days ago after being found to have a hemoglobin of 6.5 in the dialysis unit. The patient was sent to the emergency room after having h is hemodialysis treatment 2 days ago. In the emergency room, he was found to have a hemoglobin of 6 .7. The patient was admitted and was given a 2-unit blood transfusion. His hemoglobin yesterday wa s 7.9, today is 7.5. The patient does have guaiac positive stool. The patient denies any black or bloody stool. He denies any nausea, vomiting or abdominal pain. This patient has chronic kidney di sease. He was first seen by me back on 01/19/2017. The patient presented at that time with evidenc e of chronic kidney disease. He eventually went on to end-stage renal disease and now requires hemo dialysis. He is currently getting hemodialysis Thursday, and Thursday and last had dialysis 2 days ago in the [facility] dialysis unit. The patient has had episodes of anemia. He mccallum s had almost chronic GI bleeding. He has been evaluated by Dr. Arteaga, a local unit operator. The patient does have a right upper arm AV fistula for hemodialysis, and he is dialyzed via that AV fistula. The patient does have a history of hepatitis C which has been treated. I am suspicious t hat hepatitis C caused his renal failure. PAST MEDICAL HISTORY: 1. Remarkable for cirrhosis of the liver secondary to hepatitis C. 2. Hypertension. 3. Hyperlipidemia. 4. Anemia. 5. Congestive heart failure. 6. Obstructive sleep apnea. 7. End-stage renal disease on maintenance hemodialysis. 8. Insulin-dependent diabetes mellitus. CURRENT MEDICATIONS: Include the followin. Lactulose 20 g at bedtime. 2. Insulin 20 units daily. 3. Nifedipine 30 mg a day. 4. Pantoprazole 40 mg a day. 5. Furosemide 40 mg a day. 6. Tylenol p.r.n. pain. ALLERGIES: RIFAXIMIN. PHYSICAL EXAMINATION: GENERAL: At this time reveals a well-developed man who is obese, in no apparent distress. VITAL SIGNS: Temperature 98.3, pulse of 64, respirations 18, blood pressure 118/66, O2 saturation 9 6% on room air. HEENT: Head normocephalic. Eyes: Extraocular muscles intact. NOSE AND MOUTH: Normal. NECK: Supple. No neck vein distention. LUNGS: Clear to auscultation. HEART: Regular rhythm. No murmurs, gallops or rubs. ABDOMEN: Obese, soft, nontender, no masses or megaly. EXTREMITIES: No peripheral edema. The right upper arm, there is an AV fistula with a good thrill. IMPRESSION: 1. End-stage renal disease. This patient has a history of end-stage renal disease. He has nephrot ic range proteinuria and I suspect his renal disease is related to his hepatitis C. His hepatitis C has been treated and he is now negative for hepatitis C. The patient is on maintenance hemodialysi s Thursday, and Thursday and is due for hemodialysis tomorrow. 2. Cirrhosis of the liver due to hepatitis C. 3. Gastrointestinal bleeding. 4. Anemia secondary to #3. 5. Insulin-dependent diabetes mellitus. 6. Hypertension. 7. Congestive heart failure. PLAN: 1. I will order hemodialysis for tomorrow. 2. Patient will be transfused as needed. 3. Gastrointestinal consultation called for further GI workup. 4. The patient has been seen by a liver specialist at [facility]. I will try to c ontact him to see what his thoughts are. 5. I will follow the patient along with you. Dictated By: ANA MELENDEZ MD, ND/PEG Conf#: [id number] DID#: [id number]
[2017-05-04 20:16] VITALS: BP 126/60; RESP 18
[2017-05-04] MEDS: LACTULOSE 30ML CUP PO SCH (20:29)
[2017-05-04] MEDS: INSULIN GLARGINE [LANtus] 3 ML PEN SC SCH (20:31)
[2017-05-04] MEDS: ACETAMINOPHEN 500 MG TAB PO PRN (22:35)
[2017-05-05] VITALS (11 sets, daily range): BP systolic 116–154; BP diastolic 64–91; PULSE 70–78; RESP 18–20
[2017-05-05] MEDS: ACCU-CHEK XX SCH (02:05)
--- NOTE | 2017-05-05 03:15 | PN ---
DATE: 05/04/2017 SUBJECTIVE: The patient has generalized weakness. Denies any nausea or vomiting. OBJECTIVE: VITAL SIGNS: Temperature 98.3, blood pressure 118/66, O2 sat 96% on room air. HEENT: Head normocephalic. Moderate pallor without cyanosis. CHEST: Clinically clear. HEART: S1, S2 with no gallops. ABDOMEN: Obese, nontender, no hepatosplenomegaly. EXTREMITIES: Trace edema. Homans negative. LABORATORY DATA: WBC count 4.2, hematocrit 24.2, hemoglobin 7.5. Hemoglobin yesterday was 7.9. IMPRESSION: 1. Severe anemia secondary to upper gastrointestinal bleed, likely secondary to ulcer disease. 2. Cirrhosis with portal hypertension, history of hepatitis C, treated. 3. Diabetes mellitus type 2, well controlled. 4. Obesity. 5. Obstructive sleep apnea much improved after weight loss. 6. Underlying major depression. PLAN: The patient has end-stage renal disease on hemodialysis. I have discussed the case with Dr. Da Silva. Will give 1 more unit of packed cells today. Recheck labs tomorrow. Also requesting G I consultation with Dr. Arteaga, and follow his recommendations. Dictated By: JENY MORA MD, SR/PEG Conf#: [id number] DID#: [id number]
--- NOTE | 2017-05-05 05:53 | CONS ---
DATE OF ADMISSION: 05/02/2017 DATE OF CONSULTATION: TYPE OF CONSULTATION: Gastroenterology. REFERRING PHYSICIAN: Dr. Ivan Mora. REASON FOR CONSULTATION: GI bleeding. HISTORY OF PRESENT ILLNESS: A 62-year-old gentleman with end-stage renal disease on dialysis, hepat itis C, cirrhosis of liver, comes to the hospital complaining of passing black-colored stool, result ing in symptomatic anemia with weakness. Patient's hemoglobin was 6.5 and was admitted for further management. HOME MEDICATIONS: Are reviewed. ALLERGIES: RIFAXIMIN. FAMILY HISTORY: Mother, hypertension. Four sisters with diabetes and hypertension. REVIEW OF SYSTEMS: Negative. The stool is circuit board assembler in color. No nausea, no vomiting. PHYSICAL EXAMINATION: VITALS: Stable. GENERAL: Alert, awake, not in distress. HEENT: Unremarkable. CARDIOVASCULAR: No murmur, gallop or click. LUNGS: Clear. ABDOMEN: Benign. EXTREMITIES: No edema. CENTRAL NERVOUS SYSTEM: Grossly within normal limits. LABORATORY DATA: Hemoglobin is 7.9 after transfusion. Glucose is 156, creatinine is 4.75, platelet count is 109. INR is 1, stable. Alkaline phosphatase is 188. Bilirubin is normal in color. IMPRESSION: 1. Cirrhosis of liver from biopsy. 2. Renal failure. 3. Anemia. 4. Gastrointestinal bleeding. 5. Diabetes mellitus. 6. Obesity. 7. Obstructive sleep apnea. PLAN: To continue PPI. Plan is to continue present care. We will monitor H and H. If the bleedin g is profuse, then the patient will require a TIPS procedure. At this point is being evaluated for liver transplant at [facility]. Dictated By: STUART CASTELLANOS/PEG Conf#: [id number] DID#: [id number] CC: IVAN MORA MD;*EndCC*
[2017-05-05 05:57] LABS: BASOPHILS % 0.5 % (0.0-2.0); EOSINOPHILS # 0.3 10^3/ul (0.0-0.5); EOSINOPHILS % 4.1 % (0.0-7.0); HEMATOCRIT 26.1 % (42.0-52.0); HEMOGLOBIN 8.3 g/dl (14.0-18.0); LYMPHOCYTES # 1.3 10^3/ul (0.8-2.9); LYMPHOCYTES % 20.8 % (15.0-51.0); MEAN CORPUSCULAR HEMOGLOBIN 30.7 pg (29.0-33.0); MEAN CORPUSCULAR HGB CONC 31.8 g/dl (32.0-37.0); MEAN CORPUSCULAR VOLUME 96.7 fl (82.0-101.0); MEAN PLATELET VOLUME 10.1 fl (7.4-10.4); MONOCYTE # 0.5 10^3/ul (0.3-0.9); MONOCYTES % 7.5 % (0.0-11.0); NEUTROPHIL # 4.1 10^3/ul (1.6-7.5); NEUTROPHILS % 66.8 % (39.0-77.0); PLATELET COUNT 102 10^3/UL (140-415); RED CELL DISTRIBUTION WIDTH 18.2 % (11.5-14.5); WHITE BLOOD COUNT 6.2 10^3/ul (4.8-10.8)
[2017-05-05] MEDS: PANTOPRAZOLE (EC) 40 MG TAB PO SCH (06:00)
[2017-05-05] MEDS: FUROSEMIDE 40 MG TAB PO SCH (06:01)
[2017-05-05 06:15] LABS: CALCIUM 8.2 mg/dl (8.4-10.2); CREATININE 4.82 mg/dl (0.61-1.24); POTASSIUM 4.2 mmol/L (3.5-5.1)
[2017-05-05] MEDS: INSULIN ASPART [NOVOLOG] 3 ML PEN SC SCH ×2 (08:07→12:42)
--- NOTE | 2017-05-05 08:23 | CONS ---
Date/Time of Note Date/Time of Note DATE: 05/05/17 TIME: 08:17 Assessment/Plan Assessment/Plan Chief Complaint/Hosp Course 1. End-stage renal disease on maintenance hemodialysis Thursday. The patient is due for dialysis today and it has been ordered. He could be discharged after dialysis today. Be followed as an outpatient dialysis unit. 2. Anemia, the patient continues to have GI bleeding. He has been seen by his special investigator, Dr. Arteaga 3. Cirrhosis of the liver, the patient has been evaluated at [facility] liver transplant center. Problems: Consultation Date/Type/Reason Admit Date/Time May 02, 2017 at 20:22 Initial Consult Date Type of Consultation: nephrology 24 HR Interval Summary Free Text/Dictation He is awake and alert today. He is overall feeling better. He did get a blood transfusion yesterday. Constitutional: improved, no complaints Exam/Review of Systems Vital Signs Vitals Vital Signs Date Time Temp Pulse Resp B/P Pulse Ox O2 Delivery O2 Flow Rate FiO2 05/05/17 07:42 98.3 78 18 154/79 97 05/04/17 08:18 Room Air 05/02/17 22:30 2.0 Intake and Output 05/04/17 05/04/17 05/05/17 15:00 23:00 07:00 Intake Total 350 ml 400 ml Output Total 600 ml Balance 350 ml -200 ml Exam Constitutional: alert, obese, oriented Respiratory: clear to auscultation, normal air movement Cardiovascular: regular rate and rhythm Gastrointestinal: non-tender, soft Musculoskeletal: nl extremities to inspection Results Result Diagram: 05/05/17 0506 05/05/17 0506 Results 24 hrs Laboratory Tests Test 05/04/17 12:16 05/04/17 17:03 05/04/17 20:28 05/05/17 01:59 Bedside Glucose 199 156 294 H 193 Test 05/05/17 05:06 05/05/17 07:04 05/05/17 07:49 White Blood Count 6.2 # Red Blood Count 2.70 L Hemoglobin 8.3 L Hematocrit 26.1 L Mean Corpuscular Volume 96.7 Mean Corpuscular Hemoglobin 30.7 Mean Corpuscular Hemoglobin Concent 31.8 L Red Cell Distribution Width 18.2 H Platelet Count 102 L Mean Platelet Volume 10.1 Neutrophils % 66.8 Lymphocytes % 20.8 Monocytes % 7.5 Eosinophils % 4.1 Basophils % 0.5 Nucleated Red Blood Cells % 0.0 Neutrophils # 4.1 Lymphocytes # 1.3 Monocytes # 0.5 Eosinophils # 0.3 Basophils # 0.0 Nucleated Red Blood Cells # 0.0 Sodium Level 140 Potassium Level 4.2 Chloride Level 101 Carbon Dioxide Level 28 Anion Gap 15 Blood Urea Nitrogen 55 H Creatinine 4.82 H Glucose Level 155 Calcium Level 8.2 L Lab Scanned Report BLOOD TRANSFUSION Bedside Glucose 151 Medications Medications Current Medications Pantoprazole (Protonix Tab) 40 mg BID@06,18 PO Last administered on 05/05/17 06:00; Admin Dose 40 MG; Start 05/03/17 at 06:00 Clonidine (Catapres) 0.2 mg Q4H PRN PO ELEVATED BLOOD PRESSURE Last administered on 05/02/17 22:47; Admin Dose 0.2 MG; Start 05/02/17 at 22:30 Insulin Glargine (Lantus) 20 unit DAILY@20 SC Last administered on 05/04/17 20:31; Admin Dose 20 UNIT; Start 05/03/17 at 20:00 Acetaminophen (Tylenol Tab) 500 mg Q4H PRN PO PAIN AND OR ELEVATED TEMP Last administered on 05/04/17 22:35; Admin Dose 500 MG; Start 05/02/17 at 22:30 Multivitamins Therapeutic (Theragran) 1 tab DAILY PO Last administered on 05/04 08:19; Admin Dose 1 TAB; Start 05/03/17 at 09:00 Furosemide (Lasix) 40 mg DAILY@06 PO Last administered on 05/05/17 06:01; Admin Dose 40 MG; Start 05/03/17 at 06:00 Nifedipine (Procardia Xl) 30 mg DAILY PO Last administered on 05/04/17 08:20 ; Admin Dose 30 MG; Start 05/03/17 at 09:00 Lactulose (Enulose) 20 gm QHS PO Last administered on 05/04/17 20:29; Admin Dose 20 GM; Start 05/03/17 at 21:00 Diagnostic Test (Pha) (Accu-Chek) 1 ea 02 XX Last administered on 05/05/17 02 :05; Admin Dose 1 EA; Start 05/03/17 at 02:00 Miscellaneous Information 1 ea NOTE XX ; Start 05/02/17 at 23:00 Glucose (Glutose) 15 gm Q15M PRN PO DECREASED GLUCOSE; Start 05/02/17 at 23:00 Glucose (Glutose) 22.5 gm Q15M PRN PO DECREASED GLUCOSE; Start 05/02/17 at 23: 00 Dextrose (D50w Syringe) 25 ml Q15M PRN IV DECREASED GLUCOSE; Start 05/02/17 at 23:00 Dextrose (D50w Syringe) 50 ml Q15M PRN IV DECREASED GLUCOSE; Start 05/02/17 at 23:00 Glucagon (Glucagen) 1 mg Q15M PRN IM DECREASED GLUCOSE; Start 05/02/17 at 23: 00 Glucose (Glutose) 15 gm Q15M PRN BUCCAL DECREASED GLUCOSE; Start 05/02/17 at 23:00 ANA MELENDEZ MD May 05, 2017 08:22
[2017-05-05] MEDS: ACETAMINOPHEN 500 MG TAB PO PRN (11:16)
--- NOTE | 2017-05-05 11:17 | CONS ---
Date/Time of Note Date/Time of Note DATE: 05/05/17 TIME: 11:16 Assessment/Plan Assessment/Plan Additional Assessment/Plan IMPRESSION: 1. Cirrhosis of liver from biopsy. 2. Renal failure. 3. Anemia. 4. Gastrointestinal bleeding. 5. Diabetes mellitus. 6. Obesity. 7. Obstructive sleep apnea. PLAN: To continue PPI. Plan is to continue present care. We will monitor H and H. If the bleeding is profuse, then the patient will require a TIPS procedure. At this point is being evaluated for liver transplant at [facility]. We will monitor H&H. If H&H is still dropping then I may have to repeat endoscopy. Consultation Date/Type/Reason Admit Date/Time May 02, 2017 at 20:22 Initial Consult Date Type of Consultation: nephrology 24 HR Interval Summary Free Text/Dictation Patient and the states that the stool is vice president education in color Exam/Review of Systems Vital Signs Vitals Vital Signs Date Time Temp Pulse Resp B/P Pulse Ox O2 Delivery O2 Flow Rate FiO2 05/05/17 07:42 98.3 78 18 154/79 97 05/04/17 08:18 Room Air 05/02/17 22:30 2.0 Intake and Output 05/04/17 05/04/17 05/05/17 15:00 23:00 07:00 Intake Total 350 ml 400 ml Output Total 600 ml Balance 350 ml -200 ml Exam Constitutional: alert, oriented, well developed Psych: nl mood/affect, no complaints Head: atraumatic, normocephalic Eyes: EOMI, PERRL, nl conjunctiva, nl lids, nl sclera ENMT: nl external ears & nose, nl lips & teeth, nl nasal mucosa & septum Neck: non-tender, supple Respiratory: clear to auscultation, normal air movement Cardiovascular: nl pulses, regular rate and rhythm Gastrointestinal: nl liver, spleen, non-tender, soft Musculoskeletal: nl extremities to inspection, nl gait and stance Extremities: normal pulses 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: GROUP BURNER MACHINE II-XII intact, nl mental status, nl speech, nl strength Skin: nl turgor, No rash or lesions Lymph: nl lymph nodes Results Result Diagram: 05/05/17 0506 05/05/17 0506 Results 24 hrs Laboratory Tests Test 05/04/17 12:16 05/04/17 17:03 05/04/17 20:28 05/05/17 01:59 Bedside Glucose 199 156 294 H 193 Test 05/05/17 05:06 05/05/17 07:04 05/05/17 07:49 White Blood Count 6.2 # Red Blood Count 2.70 L Hemoglobin 8.3 L Hematocrit 26.1 L Mean Corpuscular Volume 96.7 Mean Corpuscular Hemoglobin 30.7 Mean Corpuscular Hemoglobin Concent 31.8 L Red Cell Distribution Width 18.2 H Platelet Count 102 L Mean Platelet Volume 10.1 Neutrophils % 66.8 Lymphocytes % 20.8 Monocytes % 7.5 Eosinophils % 4.1 Basophils % 0.5 Nucleated Red Blood Cells % 0.0 Neutrophils # 4.1 Lymphocytes # 1.3 Monocytes # 0.5 Eosinophils # 0.3 Basophils # 0.0 Nucleated Red Blood Cells # 0.0 Sodium Level 140 Potassium Level 4.2 Chloride Level 101 Carbon Dioxide Level 28 Anion Gap 15 Blood Urea Nitrogen 55 H Creatinine 4.82 H Glucose Level 155 Calcium Level 8.2 L Lab Scanned Report BLOOD TRANSFUSION Bedside Glucose 151 Medications Medications Current Medications Pantoprazole (Protonix Tab) 40 mg BID@06,18 PO Last administered on 05/05/17 06:00; Admin Dose 40 MG; Start 05/03/17 at 06:00 Clonidine (Catapres) 0.2 mg Q4H PRN PO ELEVATED BLOOD PRESSURE Last administered on 05/02/17 22:47; Admin Dose 0.2 MG; Start 05/02/17 at 22:30 Insulin Glargine (Lantus) 20 unit DAILY@20 SC Last administered on 05/04/17 20:31; Admin Dose 20 UNIT; Start 05/03/17 at 20:00 Acetaminophen (Tylenol Tab) 500 mg Q4H PRN PO PAIN AND OR ELEVATED TEMP Last administered on 05/04/17 22:35; Admin Dose 500 MG; Start 05/02/17 at 22:30 Multivitamins Therapeutic (Theragran) 1 tab DAILY PO Last administered on 05/04 08:19; Admin Dose 1 TAB; Start 05/03/17 at 09:00 Furosemide (Lasix) 40 mg DAILY@06 PO Last administered on 05/05/17 06:01; Admin Dose 40 MG; Start 05/03/17 at 06:00 Nifedipine (Procardia Xl) 30 mg DAILY PO Last administered on 05/04/17 08:20 ; Admin Dose 30 MG; Start 05/03/17 at 09:00 Lactulose (Enulose) 20 gm QHS PO Last administered on 05/04/17 20:29; Admin Dose 20 GM; Start 05/03/17 at 21:00 Diagnostic Test (Pha) (Accu-Chek) 1 ea 02 XX Last administered on 05/05/17 02 :05; Admin Dose 1 EA; Start 05/03/17 at 02:00 Miscellaneous Information 1 ea NOTE XX ; Start 05/02/17 at 23:00 Glucose (Glutose) 15 gm Q15M PRN PO DECREASED GLUCOSE; Start 05/02/17 at 23:00 Glucose (Glutose) 22.5 gm Q15M PRN PO DECREASED GLUCOSE; Start 05/02/17 at 23: 00 Dextrose (D50w Syringe) 25 ml Q15M PRN IV DECREASED GLUCOSE; Start 05/02/17 at 23:00 Dextrose (D50w Syringe) 50 ml Q15M PRN IV DECREASED GLUCOSE; Start 05/02/17 at 23:00 Glucagon (Glucagen) 1 mg Q15M PRN IM DECREASED GLUCOSE; Start 05/02/17 at 23: 00 Glucose (Glutose) 15 gm Q15M PRN BUCCAL DECREASED GLUCOSE; Start 05/02/17 at 23:00 STUART STANLEY MD May 05, 2017 11:17
[2017-05-05] MEDS ORDERED: INFLUENZA VIRUS VACCINE 0.5 ML SYG IM* ONE (17:00)
== END 2017-05-05 15:45 | disposition home or self-care (01) | DRG 377 ==
LOC: E/R 18:10 → MS2 20:22
PROVIDERS: ADMIT Internal Medicine; ATTEND Internal Medicine
PROC: 30233N1 Transfusion of Nonautologous Red Blood Cells into Peripheral Vein, Percutaneous Approach (ICD-10-PCS; principal; 2017-05-03)
PROC: 5A1D70Z Performance of Urinary Filtration, Intermittent, Less than 6 Hours Per Day (ICD-10-PCS; 2017-05-04)
DX: K92.2 Gastrointestinal hemorrhage, unspecified (principal); N18.6 End stage renal disease; I13.2 Hypertensive heart and chronic kidney disease with heart failure and with stage 5 chronic kidney disease, or end stage renal disease; E11.22 Type 2 diabetes mellitus with diabetic chronic kidney disease; D69.6 Thrombocytopenia, unspecified; K74.60 Unspecified cirrhosis of liver; D62 Acute posthemorrhagic anemia; I50.9 Heart failure, unspecified; E87.6 Hypokalemia; Z99.2 Dependence on renal dialysis; E66.9 Obesity, unspecified; Z68.35 Body mass index [BMI] 35.0-35.9, adult; G47.30 Sleep apnea, unspecified; F32.9 Major depressive disorder, single episode, unspecified; E78.5 Hyperlipidemia, unspecified
CPT/HCPCS: 36415; 36430; 80048; 80053; 82270; 82962; 83735; 84484; 85025; 85610; 85730; 86644; 86850; 86900; 86901; 86920; 87081; 90686; 90935; 93005; 96365; C9113; J1815; J7040; P9016

== ENCOUNTER → 2017-05-02 | Outpatient (CLI) | payer BC ==
[2017-05-02 12:22] LABS: ALBUMIN/GLOBULIN RATIO 0.63; BILIRUBIN,INDIRECT 0.4 mg/dl (0-1.1); BILIRUBIN,TOTAL 0.4 mg/dl (0.2-1.3); CALCIUM 8.6 mg/dl (8.4-10.2); CHOL/HDL RATIO 4.3 RATIO; CREATININE 5.43 mg/dl (0.61-1.24); POTASSIUM 4.2 mmol/L (3.5-5.1); TOTAL PROTEIN 7.7 g/dl (6.1-8.1)
[2017-05-02 12:50] LABS: ABNORMAL IP MESSAGE 1; BASOPHILS % 0.2 % (0.0-2.0); EOSINOPHILS # 0.3 10^3/ul (0.0-0.5); EOSINOPHILS % 6.3 % (0.0-7.0); HEMATOCRIT 21.8 % (42.0-52.0); LYMPHOCYTES # 1.1 10^3/ul (0.8-2.9); LYMPHOCYTES % 25.4 % (15.0-51.0); MEAN CORPUSCULAR HEMOGLOBIN 30.2 pg (29.0-33.0); MEAN CORPUSCULAR HGB CONC 29.8 g/dl (32.0-37.0); MEAN PLATELET VOLUME 10.3 fl (7.4-10.4); MONOCYTE # 0.5 10^3/ul (0.3-0.9); MONOCYTES % 10.3 % (0.0-11.0); NEUTROPHIL # 2.6 10^3/ul (1.6-7.5); NEUTROPHILS % 57.6 % (39.0-77.0); PLATELET COUNT 113 10^3/UL (140-415); POSITIVE DIFF @See below; RED BLOOD COUNT 2.15 10^6/ul (4.70-6.10); RED CELL DISTRIBUTION WIDTH 17.6 % (11.5-14.5); WHITE BLOOD COUNT 4.5 10^3/ul (4.8-10.8)
[2017-05-02 13:39] LABS: HEMOGLOBIN 6.5 g/dl (14.0-18.0); MEAN CORPUSCULAR VOLUME 101.4 fl (82.0-101.0)
== END | disposition home or self-care (01) ==
LOC: LAB 11:37
PROVIDERS: ATTEND Internal Medicine
DX: D64.9 Anemia, unspecified (principal); E78.5 Hyperlipidemia, unspecified
CPT/HCPCS: 80053; 80061; 85025

== ENCOUNTER → 2017-05-25 | Outpatient (CLI) | payer BC ==
[2017-05-25 12:15] LABS: BASOPHILS % 0.4 % (0.0-2.0); EOSINOPHILS # 0.3 10^3/ul (0.0-0.5); HEMATOCRIT 27.5 % (42.0-52.0); HEMOGLOBIN 8.8 g/dl (14.0-18.0); LYMPHOCYTES # 1.2 10^3/ul (0.8-2.9); LYMPHOCYTES % 22.8 % (15.0-51.0); MEAN CORPUSCULAR HEMOGLOBIN 30.1 pg (29.0-33.0); MEAN CORPUSCULAR VOLUME 94.2 fl (82.0-101.0); MONOCYTE # 0.5 10^3/ul (0.3-0.9); MONOCYTES % 8.8 % (0.0-11.0); NEUTROPHIL # 3.2 10^3/ul (1.6-7.5); NEUTROPHILS % 61.6 % (39.0-77.0); PLATELET COUNT 116 10^3/UL (140-415); RED BLOOD COUNT 2.92 10^6/ul (4.70-6.10); RED CELL DISTRIBUTION WIDTH 15.2 % (11.5-14.5); WHITE BLOOD COUNT 5.1 10^3/ul (4.8-10.8)
[2017-05-25 13:03] LABS: CALCIUM 8.8 mg/dl (8.4-10.2); CREATININE 4.46 mg/dl (0.61-1.24)
== END | disposition home or self-care (01) ==
LOC: LAB 11:58
PROVIDERS: ATTEND Internal Medicine
DX: D57.1 Sickle-cell disease without crisis (principal)
CPT/HCPCS: 80048; 85025

== ENCOUNTER 2017-06-18 21:55 | Inpatient (IN) | payer BC ==
[~2017-06-18] VITALS: Ht 182.9 cm; Wt 190.0 kg
[2017-06-18 22:03] VITALS: Ht 182.9 cm; Wt 190.0 kg
[2017-06-19] VITALS (11 sets, daily range): BP systolic 124–150; BP diastolic 60–84; PULSE 76–85; RESP 18–20; TEMP 98.9
--- NOTE | 2017-06-19 01:07 | ERD ---
ER Documentation Chief Complaint Chief Complaint SENT BY PMD FOR 5.3 HGB HPI The patient is a 62-year-old male, presenting to the ER because of hemoglobin 5.3 from the blood that was drawn last week. He was advised to go to the ER by his ergonomics engineer Dr. Felix. He complaints of weakness, dizziness, tired for the last week, denies hematochezia, hematemesis, syncope, near syncope. Admitted recently and received blood transfusion and was seen by dairy nutrition specialist. According to him, he had EGD last month at [facility] that showed gastric ulcer and esophageal varices that did not require any cauterization of banding. He does not smoke nor drink Past medical history: Chronic kidney disease on hemodialysis Thursday and Thursday, cirrhosis, hypertension, history of CHF, anemia, diabetes mellitus, obstructive sleep apnea, depression, hepatitis C Surgical history: Appendectomy ROS All systems reviewed and are negative except as per history of present illness. Medications Home Meds Active Scripts Multivitamins* (Theragran*) 1 Tab Tab, 1 TAB PO DAILY for 30 Days, #30 TAB Prov:JENY MORA MD 03/11/17 Pantoprazole* (Pantoprazole*) 40 Mg Tablet.dr, 40 MG PO BID@06,18 for 30 Days, # 30 Prov:JENY MORA MD 03/11/17 Furosemide* (Furosemide*) 40 Mg Tablet, 40 MG PO DAILY for 30 Days, #30 TAB Prov:JENY MORA MD 03/11/17 Escitalopram Oxalate* (Escitalopram Oxalate*) 10 Mg Tablet, 10 MG PO QHS for 30 Days, #30 TAB Prov:JENY MORA MD 03/11/17 Nifedipine (Procardia Xl) 30 Mg Tab.er.24, 30 MG PO DAILY for 30 Days, #30 TAB Prov:JENY MORA MD 03/11/17 Trimethoprim-Sulfamethoxazole* (Bactrim*) 400-80 Mg Tab, 1 TAB PO DAILY for 30 Days, #30 TAB Prov:JENY MORA MD 03/11/17 Reported Medications Insulin Glargine* (Lantus*) 100 Unit/Ml Soln, 15 UNIT SC QHS, #1 VIAL TAKE 15-20 UNITS 02/25/17 Simvastatin* (Zocor*) 20 Mg Tablet, 20 MG PO QHS, #30 TAB 10/24/16 Lactulose* (Lactulose*) 20 Gm/30 Ml Solution, 20 GM PO QHS, ML 05/30/15 Allergies Allergies: Coded Allergies: ceftriaxone (Unverified Allergy, Intermediate, RASH, 03/24/17) per Mess notes 02/02/17 - rash with rocephin PMhx/Soc History of Surgery: Yes (APPENDECTOMY 1979, RIGHT ANKEL 1992) Anesthesia Reaction: No Hx 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 Disorder: No Hx Respiratory Disorders: No Hx Cardiac Disorders: Yes (HTN, CHF) Hx Psychiatric Problems: No Hx Miscellaneous Medical Probl: Yes (LIVER CIRRHOSIS) Hx Alcohol Use: No Hx Substance Use: No Hx Tobacco Use: No Physical Exam Vitals Vital Signs Date Time Temp Pulse Resp B/P Pulse Ox O2 Delivery O2 Flow Rate FiO2 06/19/17 01:28 92 25 145/73 100 Room Air 06/18/17 22:03 99.0 89 20 127/61 100 Physical Exam Const: No acute distress.Pale Head: Atraumatic. Eyes: Normal Conjunctiva. ENT: Normal External Ears, Nose and Mouth. Neck: Full range of motion. No meningismus. Resp: Clear to auscultation bilaterally. Cardio: Regular rate and rhythm. Abd: Soft, non distended, normal bowel sounds, non tender. Skin: No petechiae or rashes. Back: No midline or flank tenderness. Ext: No cyanosis, or edema. Neur: Awake and alert. No focal deficit Psych: Normal Mood and Affect. Result Diagram: 06/19/17 0120 06/19/17 0120 Results 24 hrs Laboratory Tests Test 06/19/17 01:10 06/19/17 01:20 Urine Color YELLOW Urine Clarity CLEAR Urine pH 5.0 Urine Specific [facility] 1.011 Urine Ketones NEGATIVEmg/dL Urine Nitrite NEGATIVEmg/dL Urine Bilirubin NEGATIVEmg/dL Urine Urobilinogen NEGATIVEmg/dL Urine Leukocyte Esterase NEGATIVELeu/ul Urine Microscopic RBC 1/HPF Urine Microscopic WBC 4/HPF Urine Hemoglobin NEGATIVEmg/dL Urine Glucose 3+mg/dL Urine Total Protein 2+mg/dl White Blood Count 4.410^3/ul Red Blood Count 1.9610^6/ul Hemoglobin 5.6g/dl Hematocrit 18.0% Mean Corpuscular Volume 91.8fl Mean Corpuscular Hemoglobin 28.6pg Mean Corpuscular Hemoglobin Concent 31.1g/dl Red Cell Distribution Width 15.3% Platelet Count 42585^3/UL Mean Platelet Volume 11.2fl Neutrophils % 61.8% Lymphocytes % 22.5% Monocytes % 9.1% Eosinophils % 5.9% Basophils % 0.2% Nucleated Red Blood Cells % 0.0/100WBC Neutrophils # 2.710^3/ul Lymphocytes # 1.010^3/ul Monocytes # 0.410^3/ul Eosinophils # 0.310^3/ul Basophils # 0.010^3/ul Nucleated Red Blood Cells # 0.010^3/ul Prothrombin Time 13.5Sec Prothrombin Time Ratio 1.1 INR International Normalized Ratio 1.02 Activated Partial Thromboplast Time 32.9Sec Sodium Level 135mmol/L Potassium Level 3.8mmol/L Chloride Level 93mmol/L Carbon Dioxide Level 29mmol/L Anion Gap 17 Blood Urea Nitrogen 48mg/dl Creatinine 3.32mg/dl Glucose Level 414mg/dl Calcium Level 9.0mg/dl Total Bilirubin 0.5mg/dl Direct Bilirubin 0.00mg/dl Indirect Bilirubin 0.5mg/dl Aspartate Amino Transf (AST/SGOT) 39IU/L Alanine Aminotransferase (ALT/SGPT) 36IU/L Alkaline Phosphatase 221IU/L Troponin I 0.051ng/ml Total Protein 7.6g/dl Albumin 3.3g/dl Globulin 4.30g/dl Albumin/Globulin Ratio 0.76 Current Medications Medications (Trade) Dose Ordered Sig/Irasema Route PRN Reason Start Time Stop Time Status Last Admin Dose Admin Insulin Human Lispro (Humalog) 10 unit ONCE STAT SC 06/19/17 02:25 06/19/17 02:28 DC 06/19/17 02:39 Procedures/MDM MEDICAL MAKING DECISION: The patient is a 62-year-old male, presenting with acute recurrent GI bleed, most likely upper GI bleed due to gastric ulcer and esophageal varices, acute diabetic hyperglycemia. I have ordered to transfuse him 2 units of packed red blood cell and Humalog 10 units subcutaneously for acute diabetic hyperglycemia The differential diagnoses considered include but are not limited to gastritis, peptic ulcer disease, esophageal varices, Oksana-Gomez tear, carcinoma, polyp, hemorrhoid, fissure, diverticulosis, angiodysplasia. Departure Diagnosis: Primary Impression: GI bleed Additional Impressions: Diabetes mellitus with hyperglycemia Pancytopenia Condition: Stable Comments I discussed the findings with the patient. I discussed the patient with his physician Dr. Clark 2:30 AM who was made aware of the lab, the treatment, the patient condition. The patient is admitted to [facility] Disclaimer: Inadvertent spelling and grammatical errors are likely due to EHR/ dictation software use and do not reflect on the overall quality of patient care. Also, please note that the electronic time recorded on this note does not necessarily reflect the actual time of the patient encounter. DARRYL LIZ MD Jun 19, 2017 01:07
[2017-06-19 01:36] LABS: ABNORMAL IP MESSAGE 1; BASOPHILS % 0.2 % (0.0-2.0); MONOCYTE # 0.4 10^3/ul (0.3-0.9); POSITIVE DIFF @See below
[2017-06-19 01:40] LABS: EOSINOPHILS # 0.3 10^3/ul (0.0-0.5); EOSINOPHILS % 5.9 % (0.0-7.0); LYMPHOCYTES % 22.5 % (15.0-51.0); MEAN CORPUSCULAR HEMOGLOBIN 28.6 pg (29.0-33.0); MEAN CORPUSCULAR HGB CONC 31.1 g/dl (32.0-37.0); MEAN CORPUSCULAR VOLUME 91.8 fl (82.0-101.0); MEAN PLATELET VOLUME 11.2 fl (7.4-10.4); MONOCYTES % 9.1 % (0.0-11.0); NEUTROPHIL # 2.7 10^3/ul (1.6-7.5); NEUTROPHILS % 61.8 % (39.0-77.0); PLATELET COUNT 130 10^3/UL (140-415); RED BLOOD COUNT 1.96 10^6/ul (4.70-6.10); RED CELL DISTRIBUTION WIDTH 15.3 % (11.5-14.5); WHITE BLOOD COUNT 4.4 10^3/ul (4.8-10.8)
[2017-06-19 01:50] LABS: INR 1.02; PROTIME 13.5 Sec (11.9-14.9); PT RATIO 1.1
[2017-06-19 01:51] LABS: PARTIAL THROMBOPLASTIN TIME 32.9 Sec (25.0-35.0)
[2017-06-19 01:56] LABS: ALBUMIN 3.3 g/dl (3.3-4.9); ALBUMIN/GLOBULIN RATIO 0.76; BILIRUBIN,INDIRECT 0.5 mg/dl (0-1.1); BILIRUBIN,TOTAL 0.5 mg/dl (0.2-1.3); CREATININE 3.32 mg/dl (0.61-1.24); POTASSIUM 3.8 mmol/L (3.5-5.1); TOTAL PROTEIN 7.6 g/dl (6.1-8.1)
[2017-06-19 01:59] LABS: ADD UMIC YES; UR ASCORBIC ACID NEGATIVE (NEGATIVE); UR BILIRUBIN (Dip) NEGATIVE (NEGATIVE); UR BLOOD (Dip) NEGATIVE (NEGATIVE); UR CLARITY CLEAR (CLEAR); UR COLOR YELLOW (YELLOW); UR GLUCOSE (Dip) 3+ mg/dL (NEGATIVE); UR KETONES (Dip) NEGATIVE (NEGATIVE); UR LEUKOCYTE ESTERASE (Dip) NEGATIVE Leu/ul (NEGATIVE); UR NITRITE (Dip) NEGATIVE (NEGATIVE); UR RBC 1 /HPF (0-5); UR SPECIFIC GRAVITY (Dip) 1.011 (1.003-1.030); UR TOTAL PROTEIN (Dip) 2+ mg/dl (NEGATIVE); UR UROBILINOGEN (Dip) NEGATIVE (NEGATIVE)
[2017-06-19 02:07] LABS: TROPONIN-I 0.051 ng/ml (0.00-0.12)
[2017-06-19 02:25] LABS: HEMOGLOBIN 5.6 g/dl (14.0-18.0)
[2017-06-19] MEDS ORDERED: INSULIN LISPRO 100 UNIT/ML VIAL SC STA (02:25)
[2017-06-19 06:29] LABS: HEMATOCRIT 18.7 % (42.0-52.0)
[2017-06-19 07:15] LABS: HEMOGLOBIN 6.3 g/dl (14.0-18.0)
[2017-06-19] MEDS ORDERED: SOD CHLORIDE 0.9% 250 ML IV* ONE (09:49)
[2017-06-19] MEDS ORDERED: NACL 0.9% 3 ML SYG IV SCH (10:00)
[2017-06-19] MEDS ORDERED: ONDANSETRON 4 MG INJ IV PRN (10:00)
[2017-06-19] MEDS ORDERED: PANTOPRAZOLE 40 MG INJ IV SCH (11:00)
[2017-06-19] MEDS ORDERED: DEXTROSE 50% 50 ML SYRINGE IV PRN ×2 (12:00)
[2017-06-19] MEDS: NIFEdipine (XL) 30 MG TAB PO SCH (12:00)
[2017-06-19] MEDS ORDERED: GLUCOSE GEL 15 GRAM TUBE BUCCAL PRN (12:00)
[2017-06-19] MEDS ORDERED: GLUCAGON 1 MG INJ IM PRN (12:00)
[2017-06-19] MEDS ORDERED: GLUCOSE GEL 15 GRAM TUBE PO PRN ×2 (12:00)
--- NOTE | 2017-06-19 12:25 | CONS ---
DATE OF ADMISSION: 06/19/2017 DATE OF CONSULTATION: RENAL CONSULTATION Thank you, Dr. Brice, for asking me to participate in the medical management of this patient. REASON FOR CONSULTATION: End-stage renal disease. HISTORY OF PRESENT ILLNESS: This 62-year-old man who is well known to me, was admitted through the emergency room last evening because he had a hemoglobin of 5.3. This was apparently drawn 2 days ag o in the dialysis unit. The patient has a history of end-stage renal disease and is on maintenance hemodialysis. The patient also has a history of cirrhosis of the liver. He has had episodes of sev ere anemia thought to be due to gastrointestinal bleeding. He does have a gastric varices and this is thought to be the source of the bleeding. The patient denies any hematemesis or bright red blood per rectum. He denies melena. The patient has been feeling increasing weakness, dizziness for the last week. The patient, in the emergency room last evening, did receive 2-unit blood transfusion. His hematocrit this morning was 6.3. The patient is admitted now and will undergo a hemodialysis t reatment today. PAST MEDICAL HISTORY: 1. Remarkable for cirrhosis of the liver due to hepatitis C. 2. History of hepatitis C treated and now cured. 3. Hypertension. 4. Hyperlipidemia. 5. Anemia. 6. Congestive heart failure. 7. Obstructive sleep apnea. 8. End-stage renal disease on maintenance hemodialysis. 9. Insulin-dependent diabetes mellitus. CURRENT MEDICATIONS: Include the followin. Lactulose 20 grams at bedtime. 2. Insulin daily. 3. Nifedipine 30 mg a day. 4. Pantoprazole 40 mg a day. 5. Furosemide 40 mg a day. 6. Tylenol p.r.n. PHYSICAL EXAMINATION: GENERAL: At this time, reveals a well-developed, obese man in no apparent distress. VITAL SIGNS: Temperature 98.8, pulse of 87, respirations 18, blood pressure 143/69, O2 saturation 9 8%. HEENT: Head normocephalic. Eyes: Extraocular muscles intact. NOSE AND MOUTH: Normal. NECK: Supple. No neck vein distention. LUNGS: Clear to auscultation. HEART: Regular rhythm. No murmurs, gallops or rubs. ABDOMEN: Soft, nontender, no masses or megaly. EXTREMITIES: Trace pretibial edema. He does have an upper arm AV fistula in place. IMPRESSION: 1. End-stage renal disease on maintenance hemodialysis. He is usually dialyzed Thursday, Thursday a thursday and is due for dialysis today being Thursday. 2. Anemia due to chronic renal failure and due to gastrointestinal blood loss. 3. Hypertension. 4. Cirrhosis of the liver due to hepatitis C. 5. Insulin-dependent diabetes mellitus. PLAN 1. Patient will have a hemodialysis treatment today with a 1 unit blood transfusion. He has alread y received 2 units of blood in the emergency room. 2. Keep patient n.p.o. until seen by GI specialist, Dr. Arteaga. 3. Resume routine medications. 4. Start Epogen. 5. I will follow the patient along with you medically. Dictated By: NAA MELENDEZ MD, ND/PEG Conf#: [id number] DID#: [id number]
[2017-06-19] MEDS: FUROSEMIDE 40 MG TAB PO SCH (14:41)
[2017-06-19] MEDS: MULTIVITAMINS THERAPEUTIC TAB PO SCH (14:42)
--- NOTE | 2017-06-19 15:44 | HP ---
DATE OF ADMISSION: 06/19/2017 Detailed previous history was reviewed and patient was examined. HISTORY OF PRESENT ILLNESS: The patient is a 62-year-old Polish gentleman admitted via the emergenc y room for severe anemia which was discovered and the blood was drawn in the dialysis unit 2 days pr ior, hemoglobin of 5.9 and patient has been on maintenance hemodialysis for the past 3 months. The patient has history of peptic ulcer disease and also gastric varices. The patient denies any tarry stools, but he has been feeling increasing weakness and difficulty with ambulation and dizziness ove r the past week. The patient received 2 units of packed cells with repeat hemoglobin of 6.3 and the patient was admitted for further evaluation and treatment. REVIEW OF SYSTEMS: HEAD: No history of headaches, focal weakness, or numbness. EYES: No blurry vision or glaucoma. NECK: No history of thyroid disease. CHEST: No bronchitis, hay fever, asthma. Patient does have history of obstructive sleep apnea whic h has improved with weight loss. HEART: No PND, orthopnea, palpitations. He had a Lexiscan done which was unremarkable about 3 taina hs ago. GASTROINTESTINAL: History of hepatic cirrhosis with portal hypertension secondary to hepatitis C. History of duodenal ulcer with bleeding. History of gastric varices. The patient does have portal hypertension. GENITOURINARY: No dysuria, hematuria or kidney stones. Has been on hemodialysis for the past 3 mon ths. MEDICATIONS: His medications include: 1. Lactulose 20 grams at bedtime. 2. Lantus insulin 15 units q.p.m. 3. Nifedipine 30 mg every day. 4. Pantoprazole 40 mg every day. 5. Lasix 40 mg every day. 6. Citalopram 10 mg every day. PHYSICAL EXAMINATION: GENERAL: The patient is an average-built male in no acute distress. VITAL SIGNS: Temperature 98.4, blood pressure 137/78, O2 saturations 96%. HEENT: Head normocephalic. Moderate pallor without cyanosis. Tongue is coated, moist. NECK: Supple. No thyromegaly, bruits or lymphadenopathy. LUNGS: Clinically clear. HEART: S1, S2 heard with no definite gallops. ABDOMEN: Soft, nontender, obese. No hepatosplenomegaly. EXTREMITIES: Negative for Homans, 1+ edema both lower extremities. NEUROLOGIC: No localizing or lateralizing signs. LABORATORY DATA: Hemoglobin initially in the ER was 5.6, after transfusion it was 6.3, platelet cou nt of 130,000. Sodium 135, potassium 3.8, BUN 48, creatinine 3.32, glucose 414 initially. IMPRESSION: 1. Severe anemia, probably related to combination of chronic renal failure and gastrointestinal blo od loss from peptic ulcer disease and/or from gastric varices. 2. End-stage renal disease on maintenance hemodialysis. 3. Hypertension. 4. Hepatic cirrhosis with portal hypertension, prior history of hepatitis C with complete resolutio n of infection. 5. Obesity. 6. Obstructive sleep apnea. 7. Type 2 diabetes mellitus. PLAN: We will give 1 unit of red blood cells. Will request gastrointestinal consultation with Dr. Arteaga. Closely monitor hemoglobin and hematocrit. Continue Lantus insulin and insulin per sliding scale. Dictated By: JNEY MORA MD SR/NTS Conf#: [id number] DID#: [id number]
[2017-06-19 16:19] LABS: BASOPHILS % 0.5 % (0.0-2.0); EOSINOPHILS # 0.3 10^3/ul (0.0-0.5); EOSINOPHILS % 4.8 % (0.0-7.0); HEMATOCRIT 26.9 % (42.0-52.0); HEMOGLOBIN 8.9 g/dl (14.0-18.0); LYMPHOCYTES # 1.2 10^3/ul (0.8-2.9); LYMPHOCYTES % 20.4 % (15.0-51.0); MEAN CORPUSCULAR HEMOGLOBIN 29.2 pg (29.0-33.0); MEAN CORPUSCULAR HGB CONC 33.1 g/dl (32.0-37.0); MEAN CORPUSCULAR VOLUME 88.2 fl (82.0-101.0); MEAN PLATELET VOLUME 11.8 fl (7.4-10.4); MONOCYTE # 0.5 10^3/ul (0.3-0.9); MONOCYTES % 9.2 % (0.0-11.0); NEUTROPHIL # 3.8 10^3/ul (1.6-7.5); NEUTROPHILS % 64.8 % (39.0-77.0); PLATELET COUNT 114 10^3/UL (140-415); RED BLOOD COUNT 3.05 10^6/ul (4.70-6.10); RED CELL DISTRIBUTION WIDTH 15.8 % (11.5-14.5); WHITE BLOOD COUNT 5.9 10^3/ul (4.8-10.8)
[2017-06-19] MEDS: PANTOPRAZOLE (EC) 40 MG TAB PO SCH (17:14)
[2017-06-19] MEDS: EPOETIN 10000 UNITS/1 ML INJ (ESRD) SC SCH (17:15)
[2017-06-19] MEDS: INSULIN ASPART [NOVOLOG] 3 ML PEN SC SCH ×2 (17:20→20:56)
[2017-06-19] MEDS: ATORVASTATIN 10 MG TAB PO SCH (20:54)
[2017-06-19] MEDS: ESCITALOPRAM 10 MG TAB PO SCH (20:55)
[2017-06-19] MEDS: LACTULOSE 30ML CUP PO SCH (20:55)
[2017-06-19] MEDS ORDERED: NON-FORMULARY/PATIENT OWN MED (Simvastatin* (Zocor*) 20 MG) PO SCH (21:00)
[2017-06-19] MEDS ORDERED: INSULIN GLARGINE [LANtus] 3 ML PEN SC SCH (21:00)
[2017-06-19] MEDS: ACETAMINOPHEN 325 MG TAB PO PRN (21:03)
[2017-06-20] MEDS: ACCU-CHEK XX SCH (01:57)
[2017-06-20 02:00] VITALS: BP 128/81; RESP 20
--- NOTE | 2017-06-20 02:33 | CONS ---
DATE OF ADMISSION: 06/19/2017 DATE OF CONSULTATION: Dear Dr. Mora, Thank you for allowing me to participate in taking care of your patient. He is a pleasant 62-year-ol d gentleman with a history of hepatitis C, cirrhosis of liver, diabetes mellitus, renal failure on d ialysis, comes to the hospital for weakness and dizziness. The patient was found to have hemoglobin of 5.5 and today 6.3. He denies of any GI bleeding, no melena, no hematochezia, no abdominal pain, no nausea, no vomiting. No chest pain, no shortness of breath. Patient's weakness was definitely related to a low hemoglobin. The patient was on Neupogen; however, for the last few weeks he did no t resume it. REVIEW OF SYSTEMS: Negative. MEDICATIONS: 1. He is on lactulose. 2. Lantus insulin. 3. Nifedipine. 4. Pantoprazole 5. Lasix. 6. Xanax. PHYSICAL EXAMINATION: GENERAL: Overweight, not in distress. VITAL SIGNS: Stable. HEENT: Unremarkable. NECK: Supple, no thyromegaly, no lymphadenopathy. CARDIOVASCULAR: No murmur, gallop or click. ABDOMEN: Benign. EXTREMITIES: No edema. CENTRAL NERVOUS SYSTEM: Grossly within normal limits. IMPRESSION: 1. Severe anemia, most probably related to the chronic disease and also renal failure. At this poi nt, there is no documented evidence of gastrointestinal bleeding. 2. Gastric varicose vein. 3. History of peptic ulcer disease. 4. Diabetes mellitus. 5. Hypertension. 6. Obesity. 7. Obstructive sleep apnea. PLAN: To continue PPI. Give 1 unit of packed cell RBC and will recheck the blood count tomorrow. I will also send for a retic count. We will also send stool for occult blood. If it is positive, t hen he will need further endoscopic workup. Dictated By: STUART CASTELLANOS/NTS Conf#: [id number] DID#: [id number] CC: JENY MORA MD;*EndCC*
[2017-06-20 06:00] VITALS: BP 137/77; PULSE 72; RESP 18
[2017-06-20] MEDS: PANTOPRAZOLE (EC) 40 MG TAB PO SCH ×2 (06:07→17:54)
[2017-06-20] MEDS: FUROSEMIDE 40 MG TAB PO SCH (06:07)
[2017-06-20 07:55] VITALS: BP 174/94; RESP 18
[2017-06-20 08:38] LABS: ALBUMIN/GLOBULIN RATIO 0.73; BILIRUBIN,INDIRECT 0.8 mg/dl (0-1.1); BILIRUBIN,TOTAL 0.8 mg/dl (0.2-1.3); CALCIUM 8.6 mg/dl (8.4-10.2); CREATININE 2.98 mg/dl (0.61-1.24); POTASSIUM 4.5 mmol/L (3.5-5.1); TOTAL PROTEIN 7.1 g/dl (6.1-8.1)
[2017-06-20] MEDS: INSULIN ASPART [NOVOLOG] 3 ML PEN SC SCH ×4 (08:42→21:32)
[2017-06-20 08:57] VITALS: BP 130/60
[2017-06-20] MEDS: NIFEdipine (XL) 30 MG TAB PO SCH (08:57)
[2017-06-20] MEDS: MULTIVITAMINS THERAPEUTIC TAB PO SCH (08:58)
[2017-06-20 09:48] LABS: ABNORMAL IP MESSAGE 1; BASOPHILS % 0.5 % (0.0-2.0); EOSINOPHILS # 0.2 10^3/ul (0.0-0.5); HEMATOCRIT 23.7 % (42.0-52.0); HEMOGLOBIN 7.7 g/dl (14.0-18.0); LYMPHOCYTES # 0.8 10^3/ul (0.8-2.9); LYMPHOCYTES % 19.9 % (15.0-51.0); MEAN CORPUSCULAR HEMOGLOBIN 29.2 pg (29.0-33.0); MEAN CORPUSCULAR HGB CONC 32.5 g/dl (32.0-37.0); MEAN CORPUSCULAR VOLUME 89.8 fl (82.0-101.0); MEAN PLATELET VOLUME 11.3 fl (7.4-10.4); MONOCYTE # 0.4 10^3/ul (0.3-0.9); MONOCYTES % 10.3 % (0.0-11.0); NEUTROPHIL # 2.5 10^3/ul (1.6-7.5); NEUTROPHILS % 62.8 % (39.0-77.0); PLATELET COUNT 99 10^3/UL (140-415); POSITIVE DIFF @See below; RED BLOOD COUNT 2.64 10^6/ul (4.70-6.10); RED CELL DISTRIBUTION WIDTH 15.9 % (11.5-14.5)
--- NOTE | 2017-06-20 15:25 | CONS ---
Date/Time of Note Date/Time of Note DATE: 06/20/17 TIME: 15:24 Assessment/Plan Assessment/Plan Additional Assessment/Plan IMPRESSION: 1. Severe anemia, most probably related to the chronic disease and also renal failure. At this point, there is no documented evidence of gastrointestinal bleeding. 2. Gastric varicose vein. 3. History of peptic ulcer disease. 4. Diabetes mellitus. 5. Hypertension. 6. Obesity. 7. Obstructive sleep apnea. 8. Epistaxis Plan Monitor H&H Continue present care There is no evidence of acute GI bleeding at this point Consultation Date/Type/Reason Admit Date/Time Jun 19, 2017 at 02:41 Initial Consult Date 24 HR Interval Summary Free Text/Dictation Had episode of epistaxis Constitutional: improved Exam/Review of Systems Vital Signs Vitals Vital Signs Date Time Temp Pulse Resp B/P Pulse Ox O2 Delivery O2 Flow Rate FiO2 06/20/17 07:55 98.6 94 18 174/94 97 06/20/17 06:00 Room Air Intake and Output 06/19/17 06/19/17 06/20/17 15:00 23:00 07:00 Intake Total 1200 ml 400 ml 400 ml Output Total 3800 ml 1001 ml 300 ml Balance -2600 ml -601 ml 100 ml Exam Constitutional: alert, oriented, well developed Psych: nl mood/affect, no complaints Head: atraumatic, normocephalic Eyes: EOMI, PERRL, nl conjunctiva, nl lids, nl sclera ENMT: nl external ears & nose, nl lips & teeth, nl nasal mucosa & septum Neck: non-tender, supple Respiratory: clear to auscultation, normal air movement Cardiovascular: nl pulses, regular rate and rhythm Gastrointestinal: nl liver, spleen, non-tender, soft Musculoskeletal: nl extremities to inspection, nl gait and stance Extremities: normal pulses 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: 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, nl mental status, nl speech, nl strength Skin: nl turgor, No rash or lesions Lymph: nl lymph nodes Results Result Diagram: 06/20/17 0914 06/20/17 0557 Results 24 hrs Laboratory Tests Test 06/19/17 16:05 06/19/17 17:08 06/19/17 20:52 06/20/17 01:57 White Blood Count 5.9 # Red Blood Count 3.05 #L Hemoglobin 8.9 #L Hematocrit 26.9 #L Mean Corpuscular Volume 88.2 Mean Corpuscular Hemoglobin 29.2 Mean Corpuscular Hemoglobin Concent 33.1 Red Cell Distribution Width 15.8 H Platelet Count 114 L Mean Platelet Volume 11.8 H Neutrophils % 64.8 Lymphocytes % 20.4 Monocytes % 9.2 Eosinophils % 4.8 Basophils % 0.5 Nucleated Red Blood Cells % 0.0 Neutrophils # 3.8 Lymphocytes # 1.2 Monocytes # 0.5 Eosinophils # 0.3 Basophils # 0.0 Nucleated Red Blood Cells # 0.0 Bedside Glucose 174 252 H 252 H Test 06/20/17 05:57 06/20/17 07:41 06/20/17 09:14 06/20/17 12:11 Sodium Level 139 Potassium Level 4.5 Chloride Level 101 Carbon Dioxide Level 28 Anion Gap 15 Blood Urea Nitrogen 44 H Creatinine 2.98 H Glucose Level 216 # Calcium Level 8.6 Total Bilirubin 0.8 Direct Bilirubin 0.00 Indirect Bilirubin 0.8 Aspartate Amino Transf (AST/SGOT) 66 #H Alanine Aminotransferase (ALT/SGPT) 32 Alkaline Phosphatase 183 H Total Protein 7.1 Albumin 3.0 L Globulin 4.10 H Albumin/Globulin Ratio 0.73 Bedside Glucose 237 H 246 H White Blood Count 4.0 #L Red Blood Count 2.64 L Hemoglobin 7.7 L Hematocrit 23.7 L Mean Corpuscular Volume 89.8 Mean Corpuscular Hemoglobin 29.2 Mean Corpuscular Hemoglobin Concent 32.5 Red Cell Distribution Width 15.9 H Platelet Count 99 L Mean Platelet Volume 11.3 H Neutrophils % 62.8 Lymphocytes % 19.9 Monocytes % 10.3 Eosinophils % 6.0 Basophils % 0.5 Nucleated Red Blood Cells % 0.0 Neutrophils # 2.5 Lymphocytes # 0.8 Monocytes # 0.4 Eosinophils # 0.2 Basophils # 0.0 Nucleated Red Blood Cells # 0.0 Medications Medications Current Medications Ondansetron HCl (Zofran Inj) 4 mg Q6H PRN IV NAUSEA AND/OR VOMITING; Start 06/19/17 at 10:00 Acetaminophen (Tylenol Tab) 650 mg Q6H PRN PO PAIN LEVEL 1-3 OR FEVER Last administered on 06/19/17t 21:03; Admin Dose 650 MG; Start 06/19/17 at 10:00 Escitalopram Oxalate (Lexapro) 10 mg QHS PO Last administered on 06/19/17 20: 55; Admin Dose 10 MG; Start 06/19/17 at 21:00 Furosemide (Lasix) 40 mg DAILY@06 PO Last administered on 06/20/17 06:07; Admin Dose 40 MG; Start 06/19/17 at 12:00 Lactulose (Enulose) 20 gm QHS PO Last administered on 06/19/17 20:55; Admin Dose 20 GM; Start 06/19/17 at 21:00 Multivitamins Therapeutic (Theragran) 1 tab DAILY PO Last administered on 08:58; Admin Dose 1 TAB; Start 06/19/17 at 12:00 Nifedipine (Procardia Xl) 30 mg DAILY PO Last administered on 06/20/17 08:57; Admin Dose 30 MG; Start 06/19/17 at 12:00 Pantoprazole (Protonix Tab) 40 mg BID@,18 PO Last administered on 06/20/17 06:07; Admin Dose 40 MG; Start 06/19/17 at 18:00 Miscellaneous Information 1 ea NOTE XX ; Start 06/19/17 at 12:00 Glucose (Glutose) 15 gm Q15M PRN PO DECREASED GLUCOSE; Start 06/19/17 at 12:00 Glucose (Glutose) 22.5 gm Q15M PRN PO DECREASED GLUCOSE; Start 06/19/17 at 12: 00 Dextrose (D50w Syringe) 25 ml Q15M PRN IV DECREASED GLUCOSE; Start 06/19/17 at 12:00 Dextrose (D50w Syringe) 50 ml Q15M PRN IV DECREASED GLUCOSE; Start 06/19/17 at 12:00 Glucagon (Glucagen) 1 mg Q15M PRN IM DECREASED GLUCOSE; Start 06/19/17 at 12:00 Glucose (Glutose) 15 gm Q15M PRN BUCCAL DECREASED GLUCOSE; Start 06/19/17 at 12 :00 Epoetin Sean (Epogen (Esrd)) 10,000 units MoWeFr@17 SC Last administered on 17:15; Admin Dose 10,000 UNITS; Start 06/19/17 at 17:00 Atorvastatin Calcium (Lipitor) 10 mg DAILY@21 PO Last administered on 20:54; Admin Dose 10 MG; Start 06/19/17 at 21:00 Diagnostic Test (Pha) (Accu-Chek) 1 ea 02 XX Last administered on 06/20/17t 01: 57; Admin Dose 1 EA; Start 06/20/17 at 02:00 Insulin Glargine (Lantus) 20 unit QHS SC ; Start 06/20/17 at 21:00 STUART STANLEY MD Jun 20, 2017 15:25
--- NOTE | 2017-06-20 17:00 | CONS ---
Date/Time of Note Date/Time of Note DATE: 06/20/17 TIME: 16:57 Assessment/Plan Assessment/Plan Chief Complaint/Hosp Course 1. End-stage renal disease on maintenance hemodialysis Thursday and Thursday he was last dialyzed yesterday. 2. Anemia. The etiology of this is not entirely clear. He was getting Epogen in the dialysis unit. He denies any GI bleeding. His hemoglobin went from 8.9 yesterday to 7.7 today. He is now getting Epogen. I will check some iron studies today. 3. 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 Hepatitis C now treated Problems: Consultation Date/Type/Reason Admit Date/Time Jun 19, 2017 at 02:41 Initial Consult Date Type of Consultation: Nephrology 24 HR Interval Summary Free Text/Dictation He is in bed. He is awake and alert. He has no new complaints. He denies any bleeding specifically no rectal bleeding or blood in his stool. Constitutional: no complaints Exam/Review of Systems Vital Signs Vitals Vital Signs Date Time Temp Pulse Resp B/P Pulse Ox O2 Delivery O2 Flow Rate FiO2 06/20/17 08:57 130/60 06/20/17 07:55 98.6 94 18 97 06/20/17 06:00 Room Air Intake and Output 06/19/17 06/19/17 06/20/17 15:00 23:00 07:00 Intake Total 1200 ml 400 ml 400 ml Output Total 3800 ml 1001 ml 300 ml Balance -2600 ml -601 ml 100 ml Exam Constitutional: alert, oriented, well developed Respiratory: clear to auscultation, normal air movement Cardiovascular: regular rate and rhythm Musculoskeletal: nl extremities to inspection Results Result Diagram: 06/20/17 0914 06/20/17 0557 Results 24 hrs Laboratory Tests Test 06/19/17 17:08 06/19/17 20:52 06/20/17 01:57 06/20/17 05:57 Bedside Glucose 174 252 H 252 H Sodium Level 139 Potassium Level 4.5 Chloride Level 101 Carbon Dioxide Level 28 Anion Gap 15 Blood Urea Nitrogen 44 H Creatinine 2.98 H Glucose Level 216 # Calcium Level 8.6 Total Bilirubin 0.8 Direct Bilirubin 0.00 Indirect Bilirubin 0.8 Aspartate Amino Transf (AST/SGOT) 66 #H Alanine Aminotransferase (ALT/SGPT) 32 Alkaline Phosphatase 183 H Total Protein 7.1 Albumin 3.0 L Globulin 4.10 H Albumin/Globulin Ratio 0.73 Test 06/20/17 07:41 06/20/17 09:14 06/20/17 12:11 Bedside Glucose 237 H 246 H White Blood Count 4.0 #L Red Blood Count 2.64 L Hemoglobin 7.7 L Hematocrit 23.7 L Mean Corpuscular Volume 89.8 Mean Corpuscular Hemoglobin 29.2 Mean Corpuscular Hemoglobin Concent 32.5 Red Cell Distribution Width 15.9 H Platelet Count 99 L Mean Platelet Volume 11.3 H Neutrophils % 62.8 Lymphocytes % 19.9 Monocytes % 10.3 Eosinophils % 6.0 Basophils % 0.5 Nucleated Red Blood Cells % 0.0 Neutrophils # 2.5 Lymphocytes # 0.8 Monocytes # 0.4 Eosinophils # 0.2 Basophils # 0.0 Nucleated Red Blood Cells # 0.0 Medications Medications Current Medications Ondansetron HCl (Zofran Inj) 4 mg Q6H PRN IV NAUSEA AND/OR VOMITING; Start 06/19/17 at 10:00 Acetaminophen (Tylenol Tab) 650 mg Q6H PRN PO PAIN LEVEL 1-3 OR FEVER Last administered on 06/19/17 21:03; Admin Dose 650 MG; Start 06/19/17 at 10:00 Escitalopram Oxalate (Lexapro) 10 mg QHS PO Last administered on 06/19/17 20: 55; Admin Dose 10 MG; Start 06/19/17 at 21:00 Furosemide (Lasix) 40 mg DAILY@06 PO Last administered on 06/20/17 06:07; Admin Dose 40 MG; Start 06/19/17 at 12:00 Lactulose (Enulose) 20 gm QHS PO Last administered on 06/19/17 20:55; Admin Dose 20 GM; Start 06/19/17 at 21:00 Multivitamins Therapeutic (Theragran) 1 tab DAILY PO Last administered on 08:58; Admin Dose 1 TAB; Start 06/19/17 at 12:00 Nifedipine (Procardia Xl) 30 mg DAILY PO Last administered on 06/20/17 08:57; Admin Dose 30 MG; Start 06/19/17 at 12:00 Pantoprazole (Protonix Tab) 40 mg BID@,18 PO Last administered on 06/20/17 06:07; Admin Dose 40 MG; Start 06/19/17 at 18:00 Miscellaneous Information 1 ea NOTE XX ; Start 06/19/17 at 12:00 Glucose (Glutose) 15 gm Q15M PRN PO DECREASED GLUCOSE; Start 06/19/17 at 12:00 Glucose (Glutose) 22.5 gm Q15M PRN PO DECREASED GLUCOSE; Start 06/19/17 at 12: 00 Dextrose (D50w Syringe) 25 ml Q15M PRN IV DECREASED GLUCOSE; Start 06/19/17 at 12:00 Dextrose (D50w Syringe) 50 ml Q15M PRN IV DECREASED GLUCOSE; Start 06/19/17 at 12:00 Glucagon (Glucagen) 1 mg Q15M PRN IM DECREASED GLUCOSE; Start 06/19/17 at 12:00 Glucose (Glutose) 15 gm Q15M PRN BUCCAL DECREASED GLUCOSE; Start 06/19/17 at 12 :00 Epoetin Sean (Epogen (Esrd)) 10,000 units MoWeFr@17 SC Last administered on 17:15; Admin Dose 10,000 UNITS; Start 06/19/17 at 17:00 Atorvastatin Calcium (Lipitor) 10 mg DAILY@21 PO Last administered on 20:54; Admin Dose 10 MG; Start 06/19/17 at 21:00 Diagnostic Test (Pha) (Accu-Chek) 1 ea 02 XX Last administered on 06/20/17 01: 57; Admin Dose 1 EA; Start 06/20/17 at 02:00 Insulin Glargine (Lantus) 20 unit QHS SC ; Start 06/20/17 at 21:00 Clonidine (Catapres) 0.1 mg Q4H PRN PO for SBP>170mm,DBP>100mm hg; Start at 16:00 AAN MELENDEZ MD Jun 20, 2017 17:00
[2017-06-20 17:14] LABS: IRON 39 ug/dl (35-150)
[2017-06-20 17:24] LABS: TOTAL IRON BINDING CAPACITY 353 ug/dl (241-421)
[2017-06-20 17:47] VITALS: BP 138/63; RESP 18
[2017-06-20 19:33] VITALS: BP 156/77; PULSE 86; RESP 18
[2017-06-20] MEDS: LACTULOSE 30ML CUP PO SCH (21:22)
[2017-06-20] MEDS: ESCITALOPRAM 10 MG TAB PO SCH (21:22)
[2017-06-20] MEDS: ATORVASTATIN 10 MG TAB PO SCH (21:22)
[2017-06-20] MEDS: INSULIN GLARGINE [LANtus] 3 ML PEN SC SCH (21:31)
[2017-06-21 02:00] VITALS: BP 142/75; PULSE 83; RESP 18
[2017-06-21] MEDS: ACCU-CHEK XX SCH (02:10)
[2017-06-21 06:00] VITALS: BP 150/76; PULSE 89; RESP 18
[2017-06-21 06:18] LABS: ABNORMAL IP MESSAGE 1; BASOPHILS % 0.2 % (0.0-2.0); EOSINOPHILS # 0.3 10^3/ul (0.0-0.5); EOSINOPHILS % 5.6 % (0.0-7.0); HEMATOCRIT 22.8 % (42.0-52.0); HEMOGLOBIN 7.5 g/dl (14.0-18.0); LYMPHOCYTES # 0.9 10^3/ul (0.8-2.9); LYMPHOCYTES % 18.7 % (15.0-51.0); MEAN CORPUSCULAR HEMOGLOBIN 29.5 pg (29.0-33.0); MEAN CORPUSCULAR HGB CONC 32.9 g/dl (32.0-37.0); MEAN CORPUSCULAR VOLUME 89.8 fl (82.0-101.0); MEAN PLATELET VOLUME 11.5 fl (7.4-10.4); MONOCYTE # 0.5 10^3/ul (0.3-0.9); MONOCYTES % 10.2 % (0.0-11.0); NEUTROPHILS % 64.9 % (39.0-77.0); PLATELET COUNT 99 10^3/UL (140-415); POSITIVE DIFF @See below; RED BLOOD COUNT 2.54 10^6/ul (4.70-6.10); RED CELL DISTRIBUTION WIDTH 15.1 % (11.5-14.5); WHITE BLOOD COUNT 4.6 10^3/ul (4.8-10.8)
[2017-06-21] MEDS: PANTOPRAZOLE (EC) 40 MG TAB PO SCH ×2 (06:24→17:19)
[2017-06-21] MEDS: FUROSEMIDE 40 MG TAB PO SCH (06:24)
[2017-06-21 07:04] LABS: CALCIUM 8.4 mg/dl (8.4-10.2); CREATININE 3.39 mg/dl (0.61-1.24)
[2017-06-21 08:04] VITALS: BP 138/62; PULSE 85; RESP 18
[2017-06-21] MEDS: NIFEdipine (XL) 30 MG TAB PO SCH (08:06)
[2017-06-21] MEDS: MULTIVITAMINS THERAPEUTIC TAB PO SCH (08:06)
[2017-06-21] MEDS: ACETAMINOPHEN 325 MG TAB PO PRN ×2 (08:08→20:18)
[2017-06-21] MEDS: INSULIN ASPART [NOVOLOG] 3 ML PEN SC SCH ×4 (08:14→20:31)
--- NOTE | 2017-06-21 14:43 | CONS ---
Date/Time of Note Date/Time of Note DATE: 06/21/17 TIME: 14:38 Assessment/Plan Assessment/Plan Chief Complaint/Hosp Course 1. End-stage renal disease on maintenance hemodialysis Thursday and Thursday he was last dialyzed 2 days ago. He is due for dialysis tomorrow which I have ordered. I have also ordered a 1 unit blood transfusion during dialysis tomorrow. 2. Anemia. The etiology of this is not entirely clear. He was getting Epogen in the dialysis unit. He denies any GI bleeding but has had some epistaxis. His stool is guaiac positive. His hemoglobin went from 8.9 yesterday to 7.5 today. He is now getting Epogen. He is iron deficient. I will start him on Ferrlicit . I suspect he will need a GI workup. 3. 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 Hepatitis C has been treated . He is now negative for hepatitis C. Problems: Consultation Date/Type/Reason Admit Date/Time Jun 19, 2017 at 02:41 Type of Consultation: Nephrology 24 HR Interval Summary Free Text/Dictation He is awake and responsive.. He complains of intermittent epistaxis. He was told that his stool was positive for blood. Exam/Review of Systems Vital Signs Vitals Vital Signs Date Time Temp Pulse Resp B/P Pulse Ox O2 Delivery O2 Flow Rate FiO2 06/21/17 08:04 98.5 85 18 138/62 95 Room Air Intake and Output 06/20/17 06/20/17 06/21/17 15:00 23:00 07:00 Intake Total 900 ml 500 ml Output Total 650 ml 800 ml Balance 250 ml -300 ml Exam Constitutional: alert, frail, obese, oriented Respiratory: clear to auscultation Cardiovascular: edema, regular rate and rhythm Gastrointestinal: non-tender, soft Extremities: edema Results Result Diagram: 06/21/17 0526 06/21/17 0525 Results 24 hrs Laboratory Tests Test 06/20/17 17:51 06/20/17 21:23 06/21/17 02:10 06/21/17 05:25 Bedside Glucose 267 H 209 285 H Sodium Level 140 Potassium Level 4.0 Chloride Level 103 Carbon Dioxide Level 28 Anion Gap 13 Blood Urea Nitrogen 56 H Creatinine 3.39 H Glucose Level 223 H Calcium Level 8.4 Test 06/21/17 05:26 06/21/17 05:30 06/21/17 05:55 06/21/17 08:11 White Blood Count 4.6 L Red Blood Count 2.54 L Hemoglobin 7.5 L Hematocrit 22.8 L Mean Corpuscular Volume 89.8 Mean Corpuscular Hemoglobin 29.5 Mean Corpuscular Hemoglobin Concent 32.9 Red Cell Distribution Width 15.1 H Platelet Count 99 L Mean Platelet Volume 11.5 H Neutrophils % 64.9 Lymphocytes % 18.7 Monocytes % 10.2 Eosinophils % 5.6 Basophils % 0.2 Nucleated Red Blood Cells % 0.0 Neutrophils # 3.0 Lymphocytes # 0.9 Monocytes # 0.5 Eosinophils # 0.3 Basophils # 0.0 Nucleated Red Blood Cells # 0.0 Stool Occult Blood POSITIVE Lab Scanned Report BLOOD TRANSFUSION Bedside Glucose 205 Test 06/21/17 12:13 Bedside Glucose 269 H Medications Medications Current Medications Ondansetron HCl (Zofran Inj) 4 mg Q6H PRN IV NAUSEA AND/OR VOMITING; Start 06/19/17 at 10:00 Acetaminophen (Tylenol Tab) 650 mg Q6H PRN PO PAIN LEVEL 1-3 OR FEVER Last administered on 06/21/17 08:08; Admin Dose 650 MG; Start 06/19/17 at 10:00 Escitalopram Oxalate (Lexapro) 10 mg QHS PO Last administered on 06/20/17 21: 22; Admin Dose 10 MG; Start 06/19/17 at 21:00 Furosemide (Lasix) 40 mg DAILY@06 PO Last administered on 06/21/17 06:24; Admin Dose 40 MG; Start 06/19/17 at 12:00 Lactulose (Enulose) 20 gm QHS PO Last administered on 06/20/17 21:22; Admin Dose 20 GM; Start 06/19/17 at 21:00 Multivitamins Therapeutic (Theragran) 1 tab DAILY PO Last administered on 06/21 08:06; Admin Dose 1 TAB; Start 06/19/17 at 12:00 Nifedipine (Procardia Xl) 30 mg DAILY PO Last administered on 06/21/17 08:06 ; Admin Dose 30 MG; Start 06/19/17 at 12:00 Pantoprazole (Protonix Tab) 40 mg BID@06,18 PO Last administered on 12/10/17at 06:24; Admin Dose 40 MG; Start 06/19/17 at 18:00 Miscellaneous Information 1 ea NOTE XX ; Start 06/19/17 at 12:00 Glucose (Glutose) 15 gm Q15M PRN PO DECREASED GLUCOSE; Start 06/19/17 at 12:00 Glucose (Glutose) 22.5 gm Q15M PRN PO DECREASED GLUCOSE; Start 06/19/17 at 12: 00 Dextrose (D50w Syringe) 25 ml Q15M PRN IV DECREASED GLUCOSE; Start 06/19/17 at 12:00 Dextrose (D50w Syringe) 50 ml Q15M PRN IV DECREASED GLUCOSE; Start 06/19/17 at 12:00 Glucagon (Glucagen) 1 mg Q15M PRN IM DECREASED GLUCOSE; Start 06/19/17 at 12:00 Glucose (Glutose) 15 gm Q15M PRN BUCCAL DECREASED GLUCOSE; Start 06/19/17 at 12 :00 Epoetin Sean (Epogen (Esrd)) 10,000 units MoWeFr@17 SC Last administered on 17:15; Admin Dose 10,000 UNITS; Start 06/19/17 at 17:00 Atorvastatin Calcium (Lipitor) 10 mg DAILY@21 PO Last administered on 21:22; Admin Dose 10 MG; Start 06/19/17 at 21:00 Diagnostic Test (Pha) (Accu-Chek) 1 ea 02 XX Last administered on 06/21/17 02 :10; Admin Dose 1 EA; Start 06/20/17 at 02:00 Insulin Glargine (Lantus) 20 unit QHS SC Last administered on 06/20/17 21:31; Admin Dose 20 UNIT; Start 06/20/17 at 21:00 Clonidine (Catapres) 0.1 mg Q4H PRN PO for SBP>170mm,DBP>100mm hg; Start at 16:00 ANA MELENDEZ MD Jun 21, 2017 14:43
--- NOTE | 2017-06-21 14:44 | PN ---
DATE: 06/21/2017 SUBJECTIVE: The patient continues to have oozing from the right nostril. No clots noted. Denies a ny abdominal discomfort, no nausea, vomiting. PHYSICAL EXAMINATION GENERAL: The patient is awake, alert. VITAL SIGNS: Temperature 98.5, blood pressure 138/62, respiration 20 per minute. HEENT: Head normocephalic. Moderate pallor without cyanosis. CHEST: Clinically clear. ABDOMEN: Soft, nontender, no hepatosplenomegaly. EXTREMITIES: No edema. LABORATORY DATA: WBC count 4.6, hematocrit 22.8, potassium 4.0, glucose 205, 269, BUN 56, creatinin e 3.39. Stool for OB is positive. IMPRESSION: 1. Severe anemia secondary to upper gastrointestinal bleed. 2. Chronic kidney disease on maintenance hemodialysis. 3. Hypertension. 4. Epistaxis. 5. Hepatic cirrhosis with portal hypertension, prior history of hepatitis C. 6. Obesity. 7. Obstructive sleep apnea. 8. Diabetes mellitus type 2. PLAN: Will repeat CBC in a.m. and continue PPIs and follow recommendations per Dr. Arteaga. Will co nsider ENT consultation if the epistaxis continues. Dictated By: JENY MORA MD SR/PEG Conf#: [id number] DID#: [id number]
[2017-06-21] MEDS: SOD FERRIC GLUC COMPLX 125 MG in SOD CHLORIDE 0.9% 100 ML IVPB SCH (17:14)
--- NOTE | 2017-06-21 18:24 | CONS ---
Date/Time of Note Date/Time of Note DATE: 06/21/17 TIME: 18:23 Assessment/Plan Assessment/Plan Additional Assessment/Plan Additional Assessment/Plan IMPRESSION: 1. Severe anemia, most probably related to the chronic disease and also renal failure. At this point, there is no documented evidence of gastrointestinal bleeding. 2. Gastric varicose vein. 3. History of peptic ulcer disease. 4. Diabetes mellitus. 5. Hypertension. 6. Obesity. 7. Obstructive sleep apnea. 8. Epistaxis Plan Monitor H&H Continue present care There is no evidence of acute GI bleeding at this point. Stool is brown in color Consultation Date/Type/Reason Admit Date/Time Jun 19, 2017 at 02:41 Type of Consultation: Nephrology 24 HR Interval Summary Free Text/Dictation Patient complains of epistaxis Stool is brown in color as per the patient and I did verify with the staff nurse and it was brown in color Exam/Review of Systems Vital Signs Vitals Vital Signs Date Time Temp Pulse Resp B/P Pulse Ox O2 Delivery O2 Flow Rate FiO2 06/21/17 08:04 98.5 85 18 138/62 95 Room Air Intake and Output 06/20/17 06/20/17 06/21/17 14:59 22:59 06:59 Intake Total 900 ml 500 ml Output Total 650 ml 800 ml Balance 250 ml -300 ml Exam Constitutional: alert, oriented, well developed Psych: nl mood/affect, no complaints Head: atraumatic, normocephalic Eyes: EOMI, PERRL, nl conjunctiva, nl lids, nl sclera ENMT: nl external ears & nose, nl lips & teeth, nl nasal mucosa & septum Neck: non-tender, supple Respiratory: clear to auscultation, normal air movement Cardiovascular: nl pulses, regular rate and rhythm Gastrointestinal: nl liver, spleen, non-tender, soft Musculoskeletal: nl extremities to inspection, nl gait and stance Extremities: normal pulses 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: HAND TAPPER II-XII intact, nl mental status, nl speech, nl strength Skin: nl turgor, No rash or lesions Lymph: nl lymph nodes Results Result Diagram: 06/21/17 0526 06/21/17 0525 Results 24 hrs Laboratory Tests Test 06/20/17 21:23 06/21/17 02:10 06/21/17 05:25 06/21/17 05:26 Bedside Glucose 209 285 H Sodium Level 140 Potassium Level 4.0 Chloride Level 103 Carbon Dioxide Level 28 Anion Gap 13 Blood Urea Nitrogen 56 H Creatinine 3.39 H Glucose Level 223 H Calcium Level 8.4 White Blood Count 4.6 L Red Blood Count 2.54 L Hemoglobin 7.5 L Hematocrit 22.8 L Mean Corpuscular Volume 89.8 Mean Corpuscular Hemoglobin 29.5 Mean Corpuscular Hemoglobin Concent 32.9 Red Cell Distribution Width 15.1 H Platelet Count 99 L Mean Platelet Volume 11.5 H Neutrophils % 64.9 Lymphocytes % 18.7 Monocytes % 10.2 Eosinophils % 5.6 Basophils % 0.2 Nucleated Red Blood Cells % 0.0 Neutrophils # 3.0 Lymphocytes # 0.9 Monocytes # 0.5 Eosinophils # 0.3 Basophils # 0.0 Nucleated Red Blood Cells # 0.0 Test 06/21/17 05:30 06/21/17 05:55 06/21/17 08:11 06/21/17 12:13 Stool Occult Blood POSITIVE Lab Scanned Report BLOOD TRANSFUSION Bedside Glucose 205 269 H Test 06/21/17 17:19 Bedside Glucose 257 H Medications Medications Current Medications Ondansetron HCl (Zofran Inj) 4 mg Q6H PRN IV NAUSEA AND/OR VOMITING; Start 06/19/17 at 10:00 Acetaminophen (Tylenol Tab) 650 mg Q6H PRN PO PAIN LEVEL 1-3 OR FEVER Last administered on 06/21/17 08:08; Admin Dose 650 MG; Start 06/19/17 at 10:00 Escitalopram Oxalate (Lexapro) 10 mg QHS PO Last administered on 06/20/17 21: 22; Admin Dose 10 MG; Start 06/19/17 at 21:00 Furosemide (Lasix) 40 mg DAILY@06 PO Last administered on 06/21/17 06:24; Admin Dose 40 MG; Start 06/19/17 at 12:00 Lactulose (Enulose) 20 gm QHS PO Last administered on 06/20/17 21:22; Admin Dose 20 GM; Start 06/19/17 at 21:00 Multivitamins Therapeutic (Theragran) 1 tab DAILY PO Last administered on 06/21 08:06; Admin Dose 1 TAB; Start 06/19/17 at 12:00 Nifedipine (Procardia Xl) 30 mg DAILY PO Last administered on 06/21/17 08:06 ; Admin Dose 30 MG; Start 06/19/17 at 12:00 Pantoprazole (Protonix Tab) 40 mg BID@06,18 PO Last administered on 06/21/17 17:19; Admin Dose 40 MG; Start 06/19/17 at 18:00 Miscellaneous Information 1 ea NOTE XX ; Start 06/19/17 at 12:00 Glucose (Glutose) 15 gm Q15M PRN PO DECREASED GLUCOSE; Start 06/19/17 at 12:00 Glucose (Glutose) 22.5 gm Q15M PRN PO DECREASED GLUCOSE; Start 06/19/17 at 12: 00 Dextrose (D50w Syringe) 25 ml Q15M PRN IV DECREASED GLUCOSE; Start 06/19/17 at 12:00 Dextrose (D50w Syringe) 50 ml Q15M PRN IV DECREASED GLUCOSE; Start 06/19/17 at 12:00 Glucagon (Glucagen) 1 mg Q15M PRN IM DECREASED GLUCOSE; Start 06/19/17 at 12:00 Glucose (Glutose) 15 gm Q15M PRN BUCCAL DECREASED GLUCOSE; Start 06/19/17 at 12 :00 Epoetin Sean (Epogen (Esrd)) 10,000 units MoWeFr@17 SC Last administered on 17:15; Admin Dose 10,000 UNITS; Start 06/19/17 at 17:00 Atorvastatin Calcium (Lipitor) 10 mg DAILY@21 PO Last administered on 21:22; Admin Dose 10 MG; Start 06/19/17 at 21:00 Diagnostic Test (Pha) (Accu-Chek) 1 ea 02 XX Last administered on 06/21/17 02 :10; Admin Dose 1 EA; Start 06/20/17 at 02:00 Insulin Glargine (Lantus) 20 unit QHS SC Last administered on 06/20/17 21:31; Admin Dose 20 UNIT; Start 06/20/17 at 21:00 Clonidine 0.1 mg 0.1 mg Q4H PRN PO for SBP>170mm,DBP>100mm hg; Start 06/20/17 at 16:00 Ferric Sodium Gluconate Complex/ Sodium Chloride (Ferrlecit/NS) 110 ml @ 100 mls/hr Q24H IVPB Last administered on 06/21/17 17:14; Admin Dose 100 MLS/HR; Start 06/21/17 at 15:00; Stop 06/23/17 at 16:05 STUART STANLEY MD Jun 21, 2017 18:24
[2017-06-21 19:55] VITALS: BP 129/68; RESP 20
[2017-06-21] MEDS: ATORVASTATIN 10 MG TAB PO SCH (20:18)
[2017-06-21] MEDS: ESCITALOPRAM 10 MG TAB PO SCH (20:18)
[2017-06-21] MEDS: LACTULOSE 30ML CUP PO SCH (20:18)
[2017-06-21] MEDS: INSULIN GLARGINE [LANtus] 3 ML PEN SC SCH (20:24)
[2017-06-22] VITALS (22 sets, daily range): BP systolic 128–178; BP diastolic 63–98; PULSE 74–88; RESP 17–20
[2017-06-22] MEDS: ACCU-CHEK XX SCH (01:20)
[2017-06-22] MEDS: PANTOPRAZOLE (EC) 40 MG TAB PO SCH ×3 (05:33→18:29)
[2017-06-22] MEDS: FUROSEMIDE 40 MG TAB PO SCH (05:34)
[2017-06-22 05:53] LABS: ABNORMAL IP MESSAGE 1; BASOPHILS % 0.5 % (0.0-2.0); EOSINOPHILS # 0.2 10^3/ul (0.0-0.5); EOSINOPHILS % 5.5 % (0.0-7.0); HEMATOCRIT 21.9 % (42.0-52.0); HEMOGLOBIN 7.1 g/dl (14.0-18.0); LYMPHOCYTES # 0.9 10^3/ul (0.8-2.9); LYMPHOCYTES % 21.9 % (15.0-51.0); MEAN CORPUSCULAR HGB CONC 32.4 g/dl (32.0-37.0); MEAN CORPUSCULAR VOLUME 89.4 fl (82.0-101.0); MEAN PLATELET VOLUME 10.6 fl (7.4-10.4); MONOCYTE # 0.4 10^3/ul (0.3-0.9); MONOCYTES % 8.7 % (0.0-11.0); NEUTROPHIL # 2.6 10^3/ul (1.6-7.5); NEUTROPHILS % 63.2 % (39.0-77.0); PLATELET COUNT 92 10^3/UL (140-415); POSITIVE DIFF @See below; RED BLOOD COUNT 2.45 10^6/ul (4.70-6.10); RED CELL DISTRIBUTION WIDTH 14.8 % (11.5-14.5); WHITE BLOOD COUNT 4.2 10^3/ul (4.8-10.8)
[2017-06-22 06:12] LABS: ALBUMIN 2.6 g/dl (3.3-4.9); ALBUMIN/GLOBULIN RATIO 0.61; BILIRUBIN,INDIRECT 0.9 mg/dl (0-1.1); BILIRUBIN,TOTAL 0.9 mg/dl (0.2-1.3); CALCIUM 8.4 mg/dl (8.4-10.2); CREATININE 3.65 mg/dl (0.61-1.24); POTASSIUM 3.9 mmol/L (3.5-5.1); TOTAL PROTEIN 6.8 g/dl (6.1-8.1)
--- NOTE | 2017-06-22 06:28 | PN ---
DATE: 06/20/2017 SUBJECTIVE: The patient had epistaxis in the right nostril today, per patient is passing clots. De nies any pain. No nausea, vomiting. Denies any fever or chills. PHYSICAL EXAMINATION GENERAL: The patient presently is in no acute distress. VITAL SIGNS: Blood pressure 174/94, temperature 98.6. HEENT: No evidence of any bleeding noted from the right nostril at this time. LUNGS: Clinically clear. HEART: S1, S2 with no definite gallops. ABDOMEN: Soft, nontender, no hepatosplenomegaly. EXTREMITIES: No edema. LABORATORY DATA: Hemoglobin 11.7, ____ from 8.9 yesterday. Stool OB is still pending. Dr. Arteaga's GI consultation and Dr. Da Silva's nephrology consultation greatly appreciated. LABORATORIES: The patient's blood glucose levels have been over 200 today. Patient has been eating food brought from outside. IMPRESSION: 1. Severe anemia, combination of chronic renal failure and GI blood loss from peptic ulcer disease and/or from gastric varices. 2. Recent epistaxis. 3. Hypertension, not well controlled. 4. End-stage renal disease on maintenance hemodialysis. 5. Hepatic cirrhosis with portal hypertension, prior history of hepatitis C. 6. Obesity. 7. Obstructive sleep apnea. 8. Type 2 diabetes mellitus. PLAN: We will increase the Lantus insulin dose, icepacks to the right nostril, rest, recheck labs i n a.m., await stool for OB. Case discussed with Dr. Arteaga. Dictated By: JENY MORA MD, SR/PEG Conf#: [id number] DID#: [id number]
[2017-06-22] MEDS: MULTIVITAMINS THERAPEUTIC TAB PO SCH (08:35)
[2017-06-22] MEDS: NIFEdipine (XL) 30 MG TAB PO SCH (08:37)
[2017-06-22] MEDS: INSULIN ASPART [NOVOLOG] 3 ML PEN SC SCH ×4 (08:53→23:19)
--- NOTE | 2017-06-22 09:34 | CONS ---
Date/Time of Note Date/Time of Note DATE: 06/22/17 TIME: 09:28 Assessment/Plan Assessment/Plan Chief Complaint/Hosp Course 1. End-stage renal disease on maintenance hemodialysis Thursday and Thursday he was last dialyzed 3 days ago. He is due for dialysis today which I have ordered. I have also ordered a 2 unit blood transfusion during dialysis today. 2. Anemia. The etiology of this is not entirely clear. He was getting Epogen in the dialysis unit. He denies any GI bleeding but has had some epistaxis. His stool is guaiac positive. His hemoglobin went from 8.9 yesterday to 7.1 today. He is now getting Epogen. He is iron deficient. I will start him on Ferrlicit . I suspect he will need a GI workup. 3. 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 Hepatitis C has been treated . He is now negative for hepatitis C. Problems: Consultation Date/Type/Reason Admit Date/Time Jun 19, 2017 at 02:41 Type of Consultation: Nephrology 24 HR Interval Summary Free Text/Dictation He is awake and alert. He denies any rectal bleeding. He had an episode of epistaxis yesterday none today. Constitutional: no complaints Exam/Review of Systems Vital Signs Vitals Vital Signs Date Time Temp Pulse Resp B/P Pulse Ox O2 Delivery O2 Flow Rate FiO2 06/22/17 07:55 97.3 85 18 143/65 97 06/21/17 08:04 Room Air Intake and Output 06/21/17 06/21/17 06/22/17 15:00 23:00 07:00 Intake Total 110 ml 700 ml Output Total 1000 ml Balance 110 ml -300 ml Exam Constitutional: alert, frail, obese, oriented Respiratory: clear to auscultation, normal air movement Cardiovascular: edema, regular rate and rhythm Gastrointestinal: soft Extremities: edema Results Result Diagram: 06/22/17 0506/22/17 0521 Results 24 hrs Laboratory Tests Test 06/21/17 12:13 06/21/17 17:19 06/21/17 20:15 06/22/17 01:12 Bedside Glucose 269 H 257 H 194 266 H Test 06/22/17 05:21 06/22/17 08:33 White Blood Count 4.2 L Red Blood Count 2.45 L Hemoglobin 7.1 L Hematocrit 21.9 L Mean Corpuscular Volume 89.4 Mean Corpuscular Hemoglobin 29.0 Mean Corpuscular Hemoglobin Concent 32.4 Red Cell Distribution Width 14.8 H Platelet Count 92 L Mean Platelet Volume 10.6 H Neutrophils % 63.2 Lymphocytes % 21.9 Monocytes % 8.7 Eosinophils % 5.5 Basophils % 0.5 Nucleated Red Blood Cells % 0.0 Neutrophils # 2.6 Lymphocytes # 0.9 Monocytes # 0.4 Eosinophils # 0.2 Basophils # 0.0 Nucleated Red Blood Cells # 0.0 Sodium Level 139 Potassium Level 3.9 Chloride Level 104 Carbon Dioxide Level 27 Anion Gap 12 Blood Urea Nitrogen 63 H Creatinine 3.65 H Glucose Level 252 H Calcium Level 8.4 Total Bilirubin 0.9 Direct Bilirubin 0.00 Indirect Bilirubin 0.9 Aspartate Amino Transf (AST/SGOT) 36 Alanine Aminotransferase (ALT/SGPT) 36 Alkaline Phosphatase 148 H Total Protein 6.8 Albumin 2.6 L Globulin 4.20 H Albumin/Globulin Ratio 0.61 Bedside Glucose 217 Medications Medications Current Medications Ondansetron HCl (Zofran Inj) 4 mg Q6H PRN IV NAUSEA AND/OR VOMITING; Start 06/19/17 at 10:00 Acetaminophen (Tylenol Tab) 650 mg Q6H PRN PO PAIN LEVEL 1-3 OR FEVER Last administered on 06/21/17 20:18; Admin Dose 650 MG; Start 06/19/17 at 10:00 Escitalopram Oxalate (Lexapro) 10 mg QHS PO Last administered on 06/21/17 20: 18; Admin Dose 10 MG; Start 06/19/17 at 21:00 Furosemide (Lasix) 40 mg DAILY@06 PO Last administered on 06/22/17 05:34; Admin Dose 40 MG; Start 06/19/17 at 12:00 Lactulose (Enulose) 20 gm QHS PO Last administered on 06/21/17 20:18; Admin Dose 20 GM; Start 06/19/17 at 21:00 Multivitamins Therapeutic (Theragran) 1 tab DAILY PO Last administered on 06/22 08:35; Admin Dose 1 TAB; Start 06/19/17 at 12:00 Nifedipine (Procardia Xl) 30 mg DAILY PO Last administered on 06/21/17 08:06 ; Admin Dose 30 MG; Start 06/19/17 at 12:00 Pantoprazole (Protonix Tab) 40 mg BID@06,18 PO Last administered on 06/22/17 05:33; Admin Dose 40 MG; Start 06/19/17 at 18:00 Miscellaneous Information 1 ea NOTE XX ; Start 06/19/17 at 12:00 Glucose (Glutose) 15 gm Q15M PRN PO DECREASED GLUCOSE; Start 06/19/17 at 12:00 Glucose (Glutose) 22.5 gm Q15M PRN PO DECREASED GLUCOSE; Start 06/19/17 at 12: 00 Dextrose (D50w Syringe) 25 ml Q15M PRN IV DECREASED GLUCOSE; Start 06/19/17 at 12:00 Dextrose (D50w Syringe) 50 ml Q15M PRN IV DECREASED GLUCOSE; Start 06/19/17 at 12:00 Glucagon (Glucagen) 1 mg Q15M PRN IM DECREASED GLUCOSE; Start 06/19/17 at 12:00 Glucose (Glutose) 15 gm Q15M PRN BUCCAL DECREASED GLUCOSE; Start 06/19/17 at 12 :00 Epoetin Sean (Epogen (Esrd)) 10,000 units MoWeFr@17 SC Last administered on 17:15; Admin Dose 10,000 UNITS; Start 06/19/17 at 17:00 Atorvastatin Calcium (Lipitor) 10 mg DAILY@21 PO Last administered on 20:18; Admin Dose 10 MG; Start 06/19/17 at 21:00 Diagnostic Test (Pha) (Accu-Chek) 1 ea 02 XX Last administered on 06/21/17 02 :10; Admin Dose 1 EA; Start 06/20/17 at 02:00 Insulin Glargine (Lantus) 20 unit QHS SC Last administered on 06/21/17 20:24 ; Admin Dose 20 UNIT; Start 06/20/17 at 21:00 Clonidine 0.1 mg 0.1 mg Q4H PRN PO for SBP>170mm,DBP>100mm hg; Start 06/20/17 at 16:00 Ferric Sodium Gluconate Complex/ Sodium Chloride (Ferrlecit/NS) 110 ml @ 100 mls/hr Q24H IVPB Last administered on 06/21/17 17:14; Admin Dose 100 MLS/HR; Start 06/21/17 at 15:00; Stop 06/23/17 at 16:05 ANA MELENDEZ MD Jun 22, 2017 09:33
[2017-06-22] MEDS: SOD FERRIC GLUC COMPLX 125 MG in SOD CHLORIDE 0.9% 100 ML IVPB SCH (16:32)
[2017-06-22] MEDS: EPOETIN 10000 UNITS/1 ML INJ (ESRD) SC SCH (17:29)
--- NOTE | 2017-06-22 17:30 | CONS ---
Date/Time of Note Date/Time of Note DATE: 06/22/17 TIME: 17:28 Assessment/Plan Assessment/Plan Additional Assessment/Plan Additional Assessment/Plan IMPRESSION: 1. Severe anemia, most probably related to the chronic disease and also renal failure. hematocrit is is steadily dropping stool for occult blood is positive 2. Gastric varicose vein. 3. History of peptic ulcer disease. 4. Diabetes mellitus. 5. Hypertension. 6. Obesity. 7. Obstructive sleep apnea. 8. Epistaxis Plan Monitor H&H Continue present care We will proceed with EGD discussed with the patient and is agreed. Patient already got 1 unit of packed cell RBC Consultation Date/Type/Reason Admit Date/Time Jun 19, 2017 at 02:41 Type of Consultation: Nephrology 24 HR Interval Summary Constitutional: improved Exam/Review of Systems Vital Signs Vitals Vital Signs Date Time Temp Pulse Resp B/P Pulse Ox O2 Delivery O2 Flow Rate FiO2 06/22/17 15:00 75 18 06/22/17 14:00 98.1 174/92 97 06/21/17 08:04 Room Air Intake and Output 06/21/17 06/21/17 06/22/17 15:00 23:00 07:00 Intake Total 110 ml 700 ml Output Total 1000 ml Balance 110 ml -300 ml Exam Constitutional: alert, oriented, well developed Psych: nl mood/affect, no complaints Head: atraumatic, normocephalic Eyes: EOMI, PERRL, nl conjunctiva, nl lids, nl sclera ENMT: nl external ears & nose, nl lips & teeth, nl nasal mucosa & septum Neck: non-tender, supple Respiratory: clear to auscultation, normal air movement Cardiovascular: nl pulses, regular rate and rhythm Gastrointestinal: nl liver, spleen, non-tender, soft Musculoskeletal: nl extremities to inspection, nl gait and stance Extremities: normal pulses 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: RESEARCH CHEF II-XII intact, nl mental status, nl speech, nl strength Skin: nl turgor, No rash or lesions Lymph: nl lymph nodes Results Result Diagram: 06/22/1752006/22/17520 Results 24 hrs Laboratory Tests Test 06/21/17 20:15 06/22/17 01:12 06/22/17 05:21 06/22/17 08:33 Bedside Glucose 194 266 H 217 White Blood Count 4.2 L Red Blood Count 2.45 L Hemoglobin 7.1 L Hematocrit 21.9 L Mean Corpuscular Volume 89.4 Mean Corpuscular Hemoglobin 29.0 Mean Corpuscular Hemoglobin Concent 32.4 Red Cell Distribution Width 14.8 H Platelet Count 92 L Mean Platelet Volume 10.6 H Neutrophils % 63.2 Lymphocytes % 21.9 Monocytes % 8.7 Eosinophils % 5.5 Basophils % 0.5 Nucleated Red Blood Cells % 0.0 Neutrophils # 2.6 Lymphocytes # 0.9 Monocytes # 0.4 Eosinophils # 0.2 Basophils # 0.0 Nucleated Red Blood Cells # 0.0 Sodium Level 139 Potassium Level 3.9 Chloride Level 104 Carbon Dioxide Level 27 Anion Gap 12 Blood Urea Nitrogen 63 H Creatinine 3.65 H Glucose Level 252 H Calcium Level 8.4 Total Bilirubin 0.9 Direct Bilirubin 0.00 Indirect Bilirubin 0.9 Aspartate Amino Transf (AST/SGOT) 36 Alanine Aminotransferase (ALT/SGPT) 36 Alkaline Phosphatase 148 H Total Protein 6.8 Albumin 2.6 L Globulin 4.20 H Albumin/Globulin Ratio 0.61 Test 06/22/17 08:50 06/22/17 12:23 Stool Occult Blood POSITIVE Bedside Glucose 204 Medications Medications Current Medications Ondansetron HCl (Zofran Inj) 4 mg Q6H PRN IV NAUSEA AND/OR VOMITING; Start 06/19/17 at 10:00 Acetaminophen (Tylenol Tab) 650 mg Q6H PRN PO PAIN LEVEL 1-3 OR FEVER Last administered on 06/21/17 20:18; Admin Dose 650 MG; Start 06/19/17 at 10:00 Escitalopram Oxalate (Lexapro) 10 mg QHS PO Last administered on 06/21/17 20: 18; Admin Dose 10 MG; Start 06/19/17 at 21:00 Furosemide (Lasix) 40 mg DAILY@06 PO Last administered on 06/22/17 05:34; Admin Dose 40 MG; Start 06/19/17 at 12:00 Lactulose (Enulose) 20 gm QHS PO Last administered on 06/21/17 20:18; Admin Dose 20 GM; Start 06/19/17 at 21:00 Multivitamins Therapeutic (Theragran) 1 tab DAILY PO Last administered on 06/22 08:35; Admin Dose 1 TAB; Start 06/19/17 at 12:00 Nifedipine (Procardia Xl) 30 mg DAILY PO Last administered on 06/21/17 08:06 ; Admin Dose 30 MG; Start 06/19/17 at 12:00 Pantoprazole (Protonix Tab) 40 mg BID@06,18 PO Last administered on 06/22/17 05:33; Admin Dose 40 MG; Start 06/19/17 at 18:00 Miscellaneous Information 1 ea NOTE XX ; Start 06/19/17 at 12:00 Glucose (Glutose) 15 gm Q15M PRN PO DECREASED GLUCOSE; Start 06/19/17 at 12:00 Glucose (Glutose) 22.5 gm Q15M PRN PO DECREASED GLUCOSE; Start 06/19/17 at 12: 00 Dextrose (D50w Syringe) 25 ml Q15M PRN IV DECREASED GLUCOSE; Start 06/19/17 at 12:00 Dextrose (D50w Syringe) 50 ml Q15M PRN IV DECREASED GLUCOSE; Start 06/19/17 at 12:00 Glucagon (Glucagen) 1 mg Q15M PRN IM DECREASED GLUCOSE; Start 06/19/17 at 12:00 Glucose (Glutose) 15 gm Q15M PRN BUCCAL DECREASED GLUCOSE; Start 06/19/17 at 12 :00 Epoetin Sean (Epogen (Esrd)) 10,000 units MoWeFr@17 SC Last administered on 17:15; Admin Dose 10,000 UNITS; Start 06/19/17 at 17:00 Atorvastatin Calcium (Lipitor) 10 mg DAILY@21 PO Last administered on 20:18; Admin Dose 10 MG; Start 06/19/17 at 21:00 Diagnostic Test (Pha) (Accu-Chek) 1 ea 02 XX Last administered on 06/21/17 02 :10; Admin Dose 1 EA; Start 06/20/17 at 02:00 Insulin Glargine (Lantus) 20 unit QHS SC Last administered on 06/21/17 20:24 ; Admin Dose 20 UNIT; Start 06/20/17 at 21:00 Clonidine 0.1 mg 0.1 mg Q4H PRN PO for SBP>170mm,DBP>100mm hg; Start 06/20/17 at 16:00 Ferric Sodium Gluconate Complex/ Sodium Chloride (Ferrlecit/NS) 110 ml @ 100 mls/hr Q24H IVPB Last administered on 06/22/17t 16:32; Admin Dose 100 MLS/HR; Start 06/21/17 at 15:00; Stop 06/23/17 at 16:05 STUART STANLEY MD Jun 22, 2017 17:30
[2017-06-22] MEDS ORDERED: PROPOFOL 20 ML ONE (18:11)
[2017-06-22] MEDS ORDERED: LIDOCAINE 2% (SDV) 5 ML INJ ONE (18:11)
--- NOTE | 2017-06-22 18:30 | OPPN ---
Date/Time of Note Date/Time of Note DATE: 06/22/17 TIME: 18:28 Proc Note GI Procedure Date 06/22/17 Indication: diagnostic Pre-procedure Diagnosis GI bleeding positive stool guaiac Post-procedure Diagnosis 1. Large grade 4 gastric varicose vein not the cause of bleeding 2. Gastritis 3. Fresh blood seen in the oropharyngeal cavity and in the proximal esophagus mostly coming from nostrils is a postnasal drip. Patient has epistaxis Procedure Performed: Endoscopy Surgeon see signature line Customs Officer none Anesthesia Type: MAC Tourniquet Time none EBL none Transfusion required none Biopsy 1: None Grafts/Implants none Tubes/Drains none Complication(s) none Disposition: PACU Procedure Description Dictated STUART STANLEY MD Jun 22, 2017 18:30
[2017-06-22] MEDS ORDERED: OXYCODONE/ACETAMINOPHEN (5/325) TAB PO PRN ×2 (19:00)
[2017-06-22] MEDS ORDERED: hydrALAzine 20 MG INJ IV PRN (19:00)
[2017-06-22] MEDS ORDERED: EPHEDrine SULFATE 50 MG/5 ML SYG IV PRN (19:00)
[2017-06-22] MEDS ORDERED: ONDANSETRON 4 MG INJ IV PRN (19:00)
[2017-06-22] MEDS: ATORVASTATIN 10 MG TAB PO SCH (22:39)
[2017-06-22] MEDS: LACTULOSE 30ML CUP PO SCH (22:39)
[2017-06-22] MEDS: ESCITALOPRAM 10 MG TAB PO SCH (22:39)
[2017-06-22] MEDS: INSULIN GLARGINE [LANtus] 3 ML PEN SC SCH (23:19)
[2017-06-23 02:00] VITALS: BP 125/61; RESP 18
[2017-06-23] MEDS: ACCU-CHEK XX SCH (02:00)
[2017-06-23] MEDS: PANTOPRAZOLE (EC) 40 MG TAB PO SCH ×2 (06:04→17:53)
[2017-06-23] MEDS: FUROSEMIDE 40 MG TAB PO SCH (06:05)
--- NOTE | 2017-06-23 06:34 | GILP ---
DATE OF PROCEDURE: PROCEDURE PERFORMED: EGD. INDICATION: The patient is a 62-year-old male undergoing this procedure for positive guaiac anemia requiring blood transfusion. ____ upper GI tract and find the source of bleeding. INFORMED CONSENT: The risk of the procedure, related and unrelated complications, anesthetic risks, alternatives discussed. Informed consent was obtained. DESCRIPTION OF PROCEDURE: The patient was brought to the GI lab, sedated by anesthesiology, LIGHT RAIL TRANSIT OPERATOR __ __. After obtaining sedation, scope was passed with much ease into the oropharyngeal cavity. Introi tus was thoroughly inspected. There was fresh blood seen in the oropharyngeal cavity. It was aspir ated. The scope was passed through the cricopharyngeal sphincter into the proximal esophagus. Ther e the fresh blood was seen and beyond that no blood was noted. Mild grade I varicose veins seen ent ering into stomach which was grossly normal. Duodenum, first and second part also was normal. Stom ach mucosa revealed mild gastritis. Retroversion done and huge grade IV varicose vein in the fundal area and continuing into the GE junction was identified. Pictures were taken. Scope was straighte kinza out and removed with good patient tolerance. IMPRESSION: 1. Fresh blood seen in the introitus of the esophagus or in the oropharyngeal cavity in the proxima l esophagus, most probably coming as a postnasal drip from epistaxis. 2. Grade I esophageal varicose vein. 3. Giant gastric varicose vein in the fundal area. 4. Mild gastritis. 5. Normal duodenum. PLAN: 1. Control the epistaxis, may need ENT evaluation. 2. Continue with PPI. 3. Patient may need a TIPS procedure if transplant surgeon agrees for his gastric varicose vein. H e is not a candidate for beta nicole because the patient becomes very bradycardiac and is very sens itive to that. The other option will be for the ____ gastric varicose vein, but again this should b e done in consultation with the transplant surgeon so that it does not interfere with transplantatio n of the liver in the future. Dictated By: STUART CASTELLANOS/PEG Conf#: [id number] DID#: [id number] CC: JENY MORA MD;*EndCC*
--- NOTE | 2017-06-23 07:18 | PN ---
DATE: 06/22/2017 SUBJECTIVE: The patient states he has generalized weakness. No nausea or vomiting. Appetite is fa ir. PHYSICAL EXAMINATION: VITAL SIGNS: Blood pressure 142/65, respiration 20 per minute, temperature 97.3, O2 saturation 97% on room air. HEENT: Head normocephalic. Mild pallor without cyanosis. LUNGS: Clinically clear. HEART: S1, S2 heard with no definite gallops. ABDOMEN: Soft, obese, no epigastric tenderness. EXTREMITIES: No edema. The patient presently being dialyzed. LABORATORY DATA: Hematocrit is 21.9, hemoglobin of 7.1. Stool for OB is positive. IMPRESSION: 1. Severe anemia secondary to gastrointestinal blood loss, peptic ulcer disease and also from gastr ic varices for endoscopy per Dr. Arteaga. 2. Epistaxis, improved. 3. Hypertension, well controlled. 4. End-stage renal disease on intermittent hemodialysis. 5. Hepatic cirrhosis with portal hypertension, prior history hepatitis C, treated. 6. Obesity. 7. Obstructive sleep apnea. 8. Type 2 diabetes mellitus. We will follow the patient up after gastroenterology recommendations per Dr. Arteaga. Dictated By: JENY MORA MD SR/NTS Conf#: [id number] DID#: [id number]
[2017-06-23 08:02] VITALS: BP 116/57; RESP 18
[2017-06-23] MEDS: MULTIVITAMINS THERAPEUTIC TAB PO SCH (08:17)
[2017-06-23] MEDS: NIFEdipine (XL) 30 MG TAB PO SCH (08:17)
--- NOTE | 2017-06-23 08:29 | CONS ---
Date/Time of Note Date/Time of Note DATE: 06/23/17 TIME: 08:24 Assessment/Plan Assessment/Plan Chief Complaint/Hosp Course 1. End-stage renal disease on maintenance hemodialysis Thursday and Thursday . He is due for dialysis tomorrow , which I have ordered. 2. Anemia. He was getting Epogen in the dialysis unit. He denies any GI bleeding but has had some epistaxis. His stool is guaiac positive. His hemoglobin went from 8.9 yesterday to 7.1 yesterday. He is now getting Epogen. He is iron deficient. I will start him on Ferrlicit . His H&H is pending this morning. He is having some epistaxis. 3. 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 Hepatitis C has been treated . He is now negative for hepatitis C. Problems: Consultation Date/Type/Reason Admit Date/Time Jun 19, 2017 at 02:41 Type of Consultation: Nephrology 24 HR Interval Summary Free Text/Dictation Patient is awake and alert today. He did undergo an EGD yesterday by Dr. Arteaga . He was not found to have any active bleeding in the esophagus or stomach. There was some fresh blood in the esophagus that was thought to be dripping down from his posterior nasal passage. The patient is having some epistaxis this morning. Constitutional: no complaints Exam/Review of Systems Vital Signs Vitals Vital Signs Date Time Temp Pulse Resp B/P Pulse Ox O2 Delivery O2 Flow Rate FiO2 06/23/17 08:02 98.3 72 18 116/57 94 06/22/17 19:04 Nasal Cannula 2.0 Intake and Output 06/22/17 06/22/17 06/23/17 14:59 22:59 06:59 Intake Total 1120 ml 300 ml Output Total 7000 ml Balance -5880 ml 300 ml Exam Constitutional: alert, oriented, well developed Respiratory: clear to auscultation, normal air movement Cardiovascular: regular rate and rhythm Gastrointestinal: non-tender, soft Musculoskeletal: nl extremities to inspection Results Result Diagram: 06/22/17 0521 06/22/17 1809 Results 24 hrs Laboratory Tests Test 06/22/17 08:33 06/22/17 08:50 06/22/17 12:23 06/22/17 17:41 Bedside Glucose 217 204 149 Stool Occult Blood POSITIVE Test 06/22/17 18:09 06/22/17 22:42 06/23/17 02:18 06/23/17 07:59 Potassium Level 4.1 Bedside Glucose 240 H 221 H Lab Scanned Report BLOOD TRANSFUSION Test 06/23/17 08:12 Bedside Glucose 160 Medications Medications Current Medications Ondansetron HCl (Zofran Inj) 4 mg Q6H PRN IV NAUSEA AND/OR VOMITING; Start 06/19/17 at 10:00 Acetaminophen (Tylenol Tab) 650 mg Q6H PRN PO PAIN LEVEL 1-3 OR FEVER Last administered on 06/21/17 20:18; Admin Dose 650 MG; Start 06/19/17 at 10:00 Escitalopram Oxalate (Lexapro) 10 mg QHS PO Last administered on 06/22/17 22: 39; Admin Dose 10 MG; Start 06/19/17 at 21:00 Furosemide (Lasix) 40 mg DAILY@06 PO Last administered on 06/23/17 06:05; Admin Dose 40 MG; Start 06/19/17 at 12:00 Lactulose (Enulose) 20 gm QHS PO Last administered on 06/22/17 22:39; Admin Dose 20 GM; Start 06/19/17 at 21:00 Multivitamins Therapeutic (Theragran) 1 tab DAILY PO Last administered on 06/22 08:35; Admin Dose 1 TAB; Start 06/19/17 at 12:00 Nifedipine (Procardia Xl) 30 mg DAILY PO Last administered on 06/21/17 08:06 ; Admin Dose 30 MG; Start 06/19/17 at 12:00 Pantoprazole (Protonix Tab) 40 mg BID@,18 PO Last administered on 06/23/17 06:04; Admin Dose 40 MG; Start 06/19/17 at 18:00 Miscellaneous Information 1 ea NOTE XX ; Start 06/19/17 at 12:00 Glucose (Glutose) 15 gm Q15M PRN PO DECREASED GLUCOSE; Start 06/19/17 at 12:00 Glucose (Glutose) 22.5 gm Q15M PRN PO DECREASED GLUCOSE; Start 06/19/17 at 12: 00 Dextrose (D50w Syringe) 25 ml Q15M PRN IV DECREASED GLUCOSE; Start 06/19/17 at 12:00 Dextrose (D50w Syringe) 50 ml Q15M PRN IV DECREASED GLUCOSE; Start 06/19/17 at 12:00 Glucagon (Glucagen) 1 mg Q15M PRN IM DECREASED GLUCOSE; Start 06/19/17 at 12:00 Glucose (Glutose) 15 gm Q15M PRN BUCCAL DECREASED GLUCOSE; Start 06/19/17 at 12 :00 Epoetin Sean (Epogen (Esrd)) 10,000 units MoWeFr@17 SC Last administered on 17:29; Admin Dose 10,000 UNITS; Start 06/19/17 at 17:00 Atorvastatin Calcium (Lipitor) 10 mg DAILY@21 PO Last administered on 22:39; Admin Dose 10 MG; Start 06/19/17 at 21:00 Diagnostic Test (Pha) (Accu-Chek) 1 ea 02 XX Last administered on 06/21/17 02 :10; Admin Dose 1 EA; Start 06/20/17 at 02:00 Insulin Glargine (Lantus) 20 unit QHS SC Last administered on 06/22/17 23:19 ; Admin Dose 20 UNIT; Start 06/20/17 at 21:00 Clonidine 0.1 mg 0.1 mg Q4H PRN PO for SBP>170mm,DBP>100mm hg; Start 06/20/17 at 16:00 Ferric Sodium Gluconate Complex/ Sodium Chloride (Ferrlecit/NS) 110 ml @ 100 mls/hr Q24H IVPB Last administered on 06/22/17 16:32; Admin Dose 100 MLS/HR; Start 06/21/17 at 15:00; Stop 06/23/17 at 16:05 ANA MELENDEZ MD Jun 23, 2017 08:29
[2017-06-23] MEDS: INSULIN ASPART [NOVOLOG] 3 ML PEN SC SCH ×4 (09:03→22:03)
[2017-06-23 12:06] LABS: ABNORMAL IP MESSAGE 1; BASOPHILS % 0.6 % (0.0-2.0); EOSINOPHILS # 0.3 10^3/ul (0.0-0.5); EOSINOPHILS % 5.8 % (0.0-7.0); HEMATOCRIT 27.3 % (42.0-52.0); LYMPHOCYTES # 0.9 10^3/ul (0.8-2.9); LYMPHOCYTES % 17.3 % (15.0-51.0); MEAN CORPUSCULAR HEMOGLOBIN 29.1 pg (29.0-33.0); MEAN CORPUSCULAR VOLUME 88.3 fl (82.0-101.0); MEAN PLATELET VOLUME 11.6 fl (7.4-10.4); MONOCYTE # 0.5 10^3/ul (0.3-0.9); MONOCYTES % 8.8 % (0.0-11.0); NEUTROPHIL # 3.5 10^3/ul (1.6-7.5); NEUTROPHILS % 67.1 % (39.0-77.0); POSITIVE DIFF @See below; RED BLOOD COUNT 3.09 10^6/ul (4.70-6.10); RED CELL DISTRIBUTION WIDTH 15.4 % (11.5-14.5); WHITE BLOOD COUNT 5.2 10^3/ul (4.8-10.8)
[2017-06-23 12:12] LABS: ALBUMIN/GLOBULIN RATIO 0.66; BILIRUBIN,INDIRECT 1.2 mg/dl (0-1.1); BILIRUBIN,TOTAL 1.2 mg/dl (0.2-1.3); CALCIUM 8.3 mg/dl (8.4-10.2); CREATININE 3.13 mg/dl (0.61-1.24); POTASSIUM 3.8 mmol/L (3.5-5.1); TOTAL PROTEIN 7.5 g/dl (6.1-8.1)
[2017-06-23 12:14] LABS: PLATELET COUNT 99 10^3/UL (140-415)
[2017-06-23 12:21] LABS: INR 1.11; PROTIME 14.5 Sec (11.9-14.9); PT RATIO 1.1
[2017-06-23 13:39] VITALS: BP 144/77; RESP 18
[2017-06-23] MEDS: SOD FERRIC GLUC COMPLX 125 MG in SOD CHLORIDE 0.9% 100 ML IVPB SCH (14:10)
--- NOTE | 2017-06-23 18:44 | CONS ---
Date/Time of Note Date/Time of Note DATE: 06/23/17 TIME: 18:44 Assessment/Plan Assessment/Plan Additional Assessment/Plan IMPRESSION: 1. Severe anemia, most probably related to the chronic disease and also renal failure. hematocrit is is steadily dropping stool for occult blood is positive 2. Gastric varicose vein. 3. History of peptic ulcer disease. 4. Diabetes mellitus. 5. Hypertension. 6. Obesity. 7. Obstructive sleep apnea. 8. Epistaxis Plan Monitor H&H Continue present care Endoscopic findings most consistent with the bleeding from nose Case was discussed with Dr. Brice Consultation Date/Type/Reason Admit Date/Time Jun 19, 2017 at 02:41 Type of Consultation: Nephrology 24 HR Interval Summary Free Text/Dictation Complaints of epistaxis Exam/Review of Systems Vital Signs Vitals Vital Signs Date Time Temp Pulse Resp B/P Pulse Ox O2 Delivery O2 Flow Rate FiO2 06/23/17 13:39 97.8 78 18 144/77 94 06/22/17 19:04 Nasal Cannula 2.0 Intake and Output 06/22/17 06/22/17 06/23/17 14:59 22:59 06:59 Intake Total 1120 ml 300 ml Output Total 7000 ml Balance -5880 ml 300 ml Exam Constitutional: alert, oriented, well developed Psych: nl mood/affect, no complaints Head: atraumatic, normocephalic Eyes: EOMI, PERRL, nl conjunctiva, nl lids, nl sclera ENMT: nl external ears & nose, nl lips & teeth, nl nasal mucosa & septum Neck: non-tender, supple Respiratory: clear to auscultation, normal air movement Cardiovascular: nl pulses, regular rate and rhythm Gastrointestinal: nl liver, spleen, non-tender, soft Musculoskeletal: nl extremities to inspection, nl gait and stance Extremities: normal pulses 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: POUNCER II-XII intact, nl mental status, nl speech, nl strength Skin: nl turgor, No rash or lesions Lymph: nl lymph nodes Results Result Diagram: 06/23/17 1116 06/23/17 1116 Results 24 hrs Laboratory Tests Test 06/22/17 22:42 06/23/17 02:18 06/23/17 07:59 06/23/17 08:12 Bedside Glucose 240 H 221 H 160 Lab Scanned Report BLOOD TRANSFUSION Test 06/23/17 11:16 06/23/17 12:24 06/23/17 17:18 White Blood Count 5.2 # Red Blood Count 3.09 #L Hemoglobin 9.0 #L Hematocrit 27.3 #L Mean Corpuscular Volume 88.3 Mean Corpuscular Hemoglobin 29.1 Mean Corpuscular Hemoglobin Concent 33.0 Red Cell Distribution Width 15.4 H Platelet Count 99 L Mean Platelet Volume 11.6 H Neutrophils % 67.1 Lymphocytes % 17.3 Monocytes % 8.8 Eosinophils % 5.8 Basophils % 0.6 Nucleated Red Blood Cells % 0.0 Neutrophils # 3.5 Lymphocytes # 0.9 Monocytes # 0.5 Eosinophils # 0.3 Basophils # 0.0 Nucleated Red Blood Cells # 0.0 Prothrombin Time 14.5 Prothrombin Time Ratio 1.1 INR International Normalized Ratio 1.11 Sodium Level 137 Potassium Level 3.8 Chloride Level 102 Carbon Dioxide Level 28 Anion Gap 11 Blood Urea Nitrogen 53 H Creatinine 3.13 H Glucose Level 212 Calcium Level 8.3 L Total Bilirubin 1.2 Direct Bilirubin 0.00 Indirect Bilirubin 1.2 H Aspartate Amino Transf (AST/SGOT) 38 Alanine Aminotransferase (ALT/SGPT) 40 Alkaline Phosphatase 146 H Total Protein 7.5 Albumin 3.0 L Globulin 4.50 H Albumin/Globulin Ratio 0.66 Bedside Glucose 194 206 Medications Medications Current Medications Ondansetron HCl (Zofran Inj) 4 mg Q6H PRN IV NAUSEA AND/OR VOMITING; Start 06/19/17 at 10:00 Acetaminophen (Tylenol Tab) 650 mg Q6H PRN PO PAIN LEVEL 1-3 OR FEVER Last administered on 06/21/17 20:18; Admin Dose 650 MG; Start 06/19/17 at 10:00 Escitalopram Oxalate (Lexapro) 10 mg QHS PO Last administered on 06/22/17 22: 39; Admin Dose 10 MG; Start 06/19/17 at 21:00 Furosemide (Lasix) 40 mg DAILY@06 PO Last administered on 06/23/17 06:05; Admin Dose 40 MG; Start 06/19/17 at 12:00 Lactulose (Enulose) 20 gm QHS PO Last administered on 06/22/17 22:39; Admin Dose 20 GM; Start 06/19/17 at 21:00 Multivitamins Therapeutic (Theragran) 1 tab DAILY PO Last administered on 06/23 08:17; Admin Dose 1 TAB; Start 06/19/17 at 12:00 Nifedipine (Procardia Xl) 30 mg DAILY PO Last administered on 06/23/17 08:17 ; Admin Dose 30 MG; Start 06/19/17 at 12:00 Pantoprazole (Protonix Tab) 40 mg BID@06,18 PO Last administered on 06/23/17 17:53; Admin Dose 40 MG; Start 06/19/17 at 18:00 Miscellaneous Information 1 ea NOTE XX ; Start 06/19/17 at 12:00 Glucose (Glutose) 15 gm Q15M PRN PO DECREASED GLUCOSE; Start 06/19/17 at 12:00 Glucose (Glutose) 22.5 gm Q15M PRN PO DECREASED GLUCOSE; Start 06/19/17 at 12: 00 Dextrose (D50w Syringe) 25 ml Q15M PRN IV DECREASED GLUCOSE; Start 06/19/17 at 12:00 Dextrose (D50w Syringe) 50 ml Q15M PRN IV DECREASED GLUCOSE; Start 06/19/17 at 12:00 Glucagon (Glucagen) 1 mg Q15M PRN IM DECREASED GLUCOSE; Start 06/19/17 at 12:00 Glucose (Glutose) 15 gm Q15M PRN BUCCAL DECREASED GLUCOSE; Start 06/19/17 at 12 :00 Epoetin Sean (Epogen (Esrd)) 10,000 units MoWeFr@17 SC Last administered on 17:29; Admin Dose 10,000 UNITS; Start 06/19/17 at 17:00 Atorvastatin Calcium (Lipitor) 10 mg DAILY@21 PO Last administered on 22:39; Admin Dose 10 MG; Start 06/19/17 at 21:00 Diagnostic Test (Pha) (Accu-Chek) 1 ea 02 XX Last administered on 06/21/17 02 :10; Admin Dose 1 EA; Start 06/20/17 at 02:00 Insulin Glargine (Lantus) 20 unit QHS SC Last administered on 06/22/17 23:19 ; Admin Dose 20 UNIT; Start 06/20/17 at 21:00 Clonidine (Catapres) 0.1 mg Q4H PRN PO for SBP>170mm,DBP>100mm hg; Start at 16:00 STUART STANLEY MD Jun 23, 2017 18:44
[2017-06-23 20:09] VITALS: BP 129/63; RESP 16
[2017-06-23] MEDS: LACTULOSE 30ML CUP PO SCH (21:36)
[2017-06-23] MEDS: ATORVASTATIN 10 MG TAB PO SCH (21:36)
[2017-06-23] MEDS: ESCITALOPRAM 10 MG TAB PO SCH (21:37)
[2017-06-23] MEDS: INSULIN GLARGINE [LANtus] 3 ML PEN SC SCH (22:03)
[2017-06-24] VITALS (11 sets, daily range): BP systolic 131–168; BP diastolic 61–87; PULSE 71–93; RESP 16–20
[2017-06-24] MEDS: ACCU-CHEK XX SCH (02:00)
[2017-06-24 06:12] LABS: BASOPHILS % 0.6 % (0.0-2.0); EOSINOPHILS # 0.3 10^3/ul (0.0-0.5); EOSINOPHILS % 5.8 % (0.0-7.0); HEMATOCRIT 27.8 % (42.0-52.0); HEMOGLOBIN 8.9 g/dl (14.0-18.0); LYMPHOCYTES % 18.6 % (15.0-51.0); MEAN CORPUSCULAR HEMOGLOBIN 28.5 pg (29.0-33.0); MEAN CORPUSCULAR VOLUME 89.1 fl (82.0-101.0); MEAN PLATELET VOLUME 11.4 fl (7.4-10.4); MONOCYTE # 0.4 10^3/ul (0.3-0.9); MONOCYTES % 8.2 % (0.0-11.0); NEUTROPHIL # 3.6 10^3/ul (1.6-7.5); NEUTROPHILS % 66.2 % (39.0-77.0); PLATELET COUNT 108 10^3/UL (140-415); RED BLOOD COUNT 3.12 10^6/ul (4.70-6.10); RED CELL DISTRIBUTION WIDTH 14.7 % (11.5-14.5); WHITE BLOOD COUNT 5.4 10^3/ul (4.8-10.8)
[2017-06-24] MEDS: PANTOPRAZOLE (EC) 40 MG TAB PO SCH ×2 (06:40→18:37)
[2017-06-24] MEDS: FUROSEMIDE 40 MG TAB PO SCH (06:41)
[2017-06-24 06:47] LABS: ALBUMIN 2.8 g/dl (3.3-4.9); ALBUMIN/GLOBULIN RATIO 0.63; BILIRUBIN,INDIRECT 0.8 mg/dl (0-1.1); BILIRUBIN,TOTAL 0.8 mg/dl (0.2-1.3); CALCIUM 8.5 mg/dl (8.4-10.2); CREATININE 3.59 mg/dl (0.61-1.24); TOTAL PROTEIN 7.2 g/dl (6.1-8.1)
--- NOTE | 2017-06-24 08:03 | CONS ---
DATE OF ADMISSION: 06/19/2017 DATE OF CONSULTATION: INPATIENT ENT CONSULTATION HISTORY OF PRESENT ILLNESS: MR. Tyrone El is a 62-year-old gentleman admitted 06/19/2017 with ____ thought to be a GI bleed. Looking through the notes, it appears ____ concern about possib le epistasis. The patient, himself, had been complaining of right-sided epistaxis on and off for last 4 days, and ENT was consulted to evaluate him. PAST MEDICAL HISTORY: ____ renal failure, peptic ulcer disease, gastric varices, cirrhosis due to h epatitis C, portal hypertension, type 2 diabetes, hypertension, obstructive sleep apnea, obesity. PAST SURGICAL HISTORY: Upper endoscopy. DRUG ALLERGIES: NONE. MEDICATIONS: List was reviewed. SOCIAL HISTORY: Negative for tobacco, alcohol ____. FAMILY HISTORY: ____. REVIEW OF SYSTEMS: A 12-point review of systems is otherwise noncontributory. PHYSICAL EXAMINATION: HEENT: Today, the patient has old blood in both nasal cavities, which ____ when compared with the l eft. This was all clear ____ superiorly on the right and inferiorly on the left. These areas were cauterized ____ lidocaine anesthesia was utilized. I was able to complete ____ oral cavity ____ sep kena is quite deviated anteriorly to the left. Mucosa pink. There is no evidence of ____ secretions or evidence of infection. Oral cavity, oropharynx ____ tongue and floor of mouth normal. There is no blood at the level of ____. NECK: Reveals no lymphadenopathy or thyromegaly. Trachea is midline. ____. IMPRESSION: Epistaxis. PLAN: At this point, the cauterization was adequately performed. There was no more oozing noted. A small portion of Surgicel was placed within the superior right nasal cavity to assist with ____, b ut at this point, if there are any questions or concerns, please feel free to reconsult at any time. I don't believe that this was the source of any significant bleeding whatsoever. If you have any questions, please call. Dictated By: TRENA PARK/PEG Conf#: [id number] DID#: [id number] CC: JENY MORA MD;*End*
--- NOTE | 2017-06-24 08:04 | PN ---
DATE: 06/23/2017 SUBJECTIVE: The patient complains of moderate bleeding from the right nostril. It tends to stop wh en he is lying down, but when he sits up, tends to have more bleeding with minimal pain. Denies any chest pain or shortness of breath. PHYSICAL EXAMINATION: GENERAL: The patient is awake, alert. VITAL SIGNS: Temperature 97.8, blood pressure /77, respirations 20 per minute. HEENT: Head normocephalic. LUNGS: Clinically clear. HEART: S1, S2 heard. No definite gallops. ABDOMEN: Soft, nontender, obese. No hepatosplenomegaly. EXTREMITIES: No edema. Homans' negative. LABORATORY DATA: WBC count is 5.2, hematocrit 27.3, platelet count is 99,000. Sodium 137, potassiu m 3.8, BUN 53, creatinine 3.13, glucose 194. Case discussed with Dr. Arteaga and endoscopy findings noted. IMPRESSION: 1. Epistaxis from the right nostril. Will request for ENT evaluation by Dr. Worley. 2. Grade I esophageal varicose veins noted on the endoscopy. 3. Mild gastritis. 4. Giant varicose veins in the fundal area noted. 5. Chronic kidney failure, on maintenance hemodialysis. 6. Diabetes mellitus type 2. 7. Obstructive sleep apnea. PLAN: ENT followup per Dr. Worley. Repeat CBC in a.m., and if epistaxis is stabilized, will disch arge the patient home. Will discuss with Dr. Da Silva as well. Dictated By: JENY MORA MD SR/NTS Conf#: [id number] DID#: [id number] CC: JENY MORA MD;*EndCC*
[2017-06-24] MEDS: MULTIVITAMINS THERAPEUTIC TAB PO SCH (08:17)
[2017-06-24] MEDS: NIFEdipine (XL) 30 MG TAB PO SCH ×2 (08:17→13:45)
[2017-06-24] MEDS: INSULIN ASPART [NOVOLOG] 3 ML PEN SC SCH ×4 (08:29→21:00)
--- NOTE | 2017-06-24 09:22 | CONS ---
Date/Time of Note Date/Time of Note DATE: 06/24/17 TIME: 09:20 Assessment/Plan Assessment/Plan Additional Assessment/Plan 1. CKD, to be dialyzed today. 2. Anemia, stable, findings on endoscopy noted, procrit continued 3. 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 Can be dc'd after HD if ok with IM Consultation Date/Type/Reason Admit Date/Time Jun 19, 2017 at 02:41 Initial Consult Date Type of Consultation: Nephrology Detailed Summary Respiratory: No cough, No shortness of breath Cardiovascular: No chest pain, No lightheadedness Gastrointestinal: no complaints Genitourinary: no complaints Exam/Review of Systems Vital Signs Vitals Vital Signs Date Time Temp Pulse Resp B/P Pulse Ox O2 Delivery O2 Flow Rate FiO2 06/24/17 07:46 98.1 72 18 139/84 98 06/22/17 19:04 Nasal Cannula 2.0 Intake and Output 06/23/17 06/23/17 06/24/17 15:00 23:00 07:00 Intake Total 1050 ml 860 ml Balance 1050 ml 860 ml Exam Neck: No jvd Respiratory: clear to auscultation Cardiovascular: regular rate and rhythm Gastrointestinal: soft, No tender Extremities: No edema Results Result Diagram: 06/24/17 0530 06/24/17 0530 Results 24 hrs Laboratory Tests Test 06/23/17 11:16 06/23/17 12:24 06/23/17 17:18 06/23/17 21:34 White Blood Count 5.2 # Red Blood Count 3.09 #L Hemoglobin 9.0 #L Hematocrit 27.3 #L Mean Corpuscular Volume 88.3 Mean Corpuscular Hemoglobin 29.1 Mean Corpuscular Hemoglobin Concent 33.0 Red Cell Distribution Width 15.4 H Platelet Count 99 L Mean Platelet Volume 11.6 H Neutrophils % 67.1 Lymphocytes % 17.3 Monocytes % 8.8 Eosinophils % 5.8 Basophils % 0.6 Nucleated Red Blood Cells % 0.0 Neutrophils # 3.5 Lymphocytes # 0.9 Monocytes # 0.5 Eosinophils # 0.3 Basophils # 0.0 Nucleated Red Blood Cells # 0.0 Prothrombin Time 14.5 Prothrombin Time Ratio 1.1 INR International Normalized Ratio 1.11 Sodium Level 137 Potassium Level 3.8 Chloride Level 102 Carbon Dioxide Level 28 Anion Gap 11 Blood Urea Nitrogen 53 H Creatinine 3.13 H Glucose Level 212 Calcium Level 8.3 L Total Bilirubin 1.2 Direct Bilirubin 0.00 Indirect Bilirubin 1.2 H Aspartate Amino Transf (AST/SGOT) 38 Alanine Aminotransferase (ALT/SGPT) 40 Alkaline Phosphatase 146 H Total Protein 7.5 Albumin 3.0 L Globulin 4.50 H Albumin/Globulin Ratio 0.66 Bedside Glucose 194 206 283 H Test 06/24/17 03:10 06/24/17 05:30 06/24/17 07:06 06/24/17 08:15 Bedside Glucose 192 180 White Blood Count 5.4 Red Blood Count 3.12 L Hemoglobin 8.9 L Hematocrit 27.8 L Mean Corpuscular Volume 89.1 Mean Corpuscular Hemoglobin 28.5 L Mean Corpuscular Hemoglobin Concent 32.0 Red Cell Distribution Width 14.7 H Platelet Count 108 L Mean Platelet Volume 11.4 H Neutrophils % 66.2 Lymphocytes % 18.6 Monocytes % 8.2 Eosinophils % 5.8 Basophils % 0.6 Nucleated Red Blood Cells % 0.0 Neutrophils # 3.6 Lymphocytes # 1.0 Monocytes # 0.4 Eosinophils # 0.3 Basophils # 0.0 Nucleated Red Blood Cells # 0.0 Sodium Level 139 Potassium Level 4.0 Chloride Level 104 Carbon Dioxide Level 26 Anion Gap 13 Blood Urea Nitrogen 65 H Creatinine 3.59 H Glucose Level 218 Calcium Level 8.5 Total Bilirubin 0.8 Direct Bilirubin 0.00 Indirect Bilirubin 0.8 Aspartate Amino Transf (AST/SGOT) 34 Alanine Aminotransferase (ALT/SGPT) 30 Alkaline Phosphatase 161 H Total Protein 7.2 Albumin 2.8 L Globulin 4.40 H Albumin/Globulin Ratio 0.63 Lab Scanned Report BLOOD TRANSFUSION Medications Medications Current Medications Ondansetron HCl (Zofran Inj) 4 mg Q6H PRN IV NAUSEA AND/OR VOMITING; Start 06/19/17 at 10:00 Acetaminophen (Tylenol Tab) 650 mg Q6H PRN PO PAIN LEVEL 1-3 OR FEVER Last administered on 06/21/17 20:18; Admin Dose 650 MG; Start 06/19/17 at 10:00 Escitalopram Oxalate (Lexapro) 10 mg QHS PO Last administered on 06/23/17 21: 37; Admin Dose 10 MG; Start 06/19/17 at 21:00 Furosemide (Lasix) 40 mg DAILY@06 PO Last administered on 06/24/17 06:41; Admin Dose 40 MG; Start 06/19/17 at 12:00 Lactulose (Enulose) 20 gm QHS PO Last administered on 06/23/17 21:36; Admin Dose 20 GM; Start 06/19/17 at 21:00 Multivitamins Therapeutic (Theragran) 1 tab DAILY PO Last administered on 06/24 08:17; Admin Dose 1 TAB; Start 06/19/17 at 12:00 Nifedipine (Procardia Xl) 30 mg DAILY PO Last administered on 06/23/17 08:17 ; Admin Dose 30 MG; Start 06/19/17 at 12:00 Pantoprazole (Protonix Tab) 40 mg BID@ PO Last administered on 06/24/17 06:40; Admin Dose 40 MG; Start 06/19/17 at 18:00 Miscellaneous Information 1 ea NOTE XX ; Start 06/19/17 at 12:00 Glucose (Glutose) 15 gm Q15M PRN PO DECREASED GLUCOSE; Start 06/19/17 at 12:00 Glucose (Glutose) 22.5 gm Q15M PRN PO DECREASED GLUCOSE; Start 06/19/17 at 12: 00 Dextrose (D50w Syringe) 25 ml Q15M PRN IV DECREASED GLUCOSE; Start 06/19/17 at 12:00 Dextrose (D50w Syringe) 50 ml Q15M PRN IV DECREASED GLUCOSE; Start 06/19/17 at 12:00 Glucagon (Glucagen) 1 mg Q15M PRN IM DECREASED GLUCOSE; Start 06/19/17 at 12:00 Glucose (Glutose) 15 gm Q15M PRN BUCCAL DECREASED GLUCOSE; Start 06/19/17 at 12 :00 Epoetin Sean (Epogen (Esrd)) 10,000 units MoWeFr@17 SC Last administered on 17:29; Admin Dose 10,000 UNITS; Start 06/19/17 at 17:00 Atorvastatin Calcium (Lipitor) 10 mg DAILY@21 PO Last administered on 21:36; Admin Dose 10 MG; Start 06/19/17 at 21:00 Diagnostic Test (Pha) (Accu-Chek) 1 ea 02 XX Last administered on 06/21/17 02 :10; Admin Dose 1 EA; Start 06/20/17 at 02:00 Insulin Glargine (Lantus) 20 unit QHS SC Last administered on 06/23/17t 22:03 ; Admin Dose 20 UNIT; Start 06/20/17 at 21:00 Clonidine (Catapres) 0.1 mg Q4H PRN PO for SBP>170mm,DBP>100mm hg; Start at 16:00 NICOLE WANG MD Jun 24, 2017 09:22
[2017-06-24] MEDS: ESCITALOPRAM 10 MG TAB PO SCH (20:47)
[2017-06-24] MEDS: LACTULOSE 30ML CUP PO SCH (20:47)
[2017-06-24] MEDS: ATORVASTATIN 10 MG TAB PO SCH (20:47)
[2017-06-24] MEDS: EPOETIN 10000 UNITS/1 ML INJ (ESRD) SC SCH (20:47)
[2017-06-24] MEDS: INSULIN GLARGINE [LANtus] 3 ML PEN SC SCH (21:00)
[2017-06-25 01:15] VITALS: BP 129/79; RESP 20
[2017-06-25] MEDS: ACCU-CHEK XX SCH (02:40)
[2017-06-25] MEDS: PANTOPRAZOLE (EC) 40 MG TAB PO SCH (06:15)
[2017-06-25] MEDS: FUROSEMIDE 40 MG TAB PO SCH (06:15)
[2017-06-25 07:51] VITALS: BP 119/57; RESP 18
--- NOTE | 2017-06-25 08:34 | CONS ---
Date/Time of Note Date/Time of Note DATE: 06/25/17 TIME: 08:32 Assessment/Plan Assessment/Plan Additional Assessment/Plan 1. CKD, next hd diego I called the dialysis center and asked them to check Hct weekly and continue procrit 2. Labs pending from this am 3. Cirrhosis sec to hep c. 4. Can dc today if ok with IM Consultation Date/Type/Reason Admit Date/Time Jun 19, 2017 at 02:41 Type of Consultation: Nephrology Detailed Summary Respiratory: No shortness of breath Cardiovascular: No chest pain Gastrointestinal: no complaints, other (slgiht bloating without n or v) Genitourinary: no complaints Exam/Review of Systems Vital Signs Vitals Vital Signs Date Time Temp Pulse Resp B/P Pulse Ox O2 Delivery O2 Flow Rate FiO2 06/25/17 07:51 98.3 74 18 119/57 96 06/22/17 19:04 Nasal Cannula 2.0 Intake and Output 06/24/17 06/24/17 06/25/17 15:00 23:00 07:00 Intake Total 1220 ml 500 ml Output Total 3800 ml Balance -2580 ml 500 ml Exam Neck: No jvd Respiratory: clear to auscultation Cardiovascular: regular rate and rhythm Gastrointestinal: soft, No tender Extremities: No edema Results Result Diagram: 06/24/17 0530 06/24/17 0530 Results 24 hrs Laboratory Tests Test 06/24/17 12:20 06/24/17 18:28 06/24/17 20:45 06/25/17 02:37 Bedside Glucose 244 H 209 272 H 262 H Medications Medications Current Medications Ondansetron HCl (Zofran Inj) 4 mg Q6H PRN IV NAUSEA AND/OR VOMITING; Start 06/19/17 at 10:00 Acetaminophen (Tylenol Tab) 650 mg Q6H PRN PO PAIN LEVEL 1-3 OR FEVER Last administered on 06/21/17 20:18; Admin Dose 650 MG; Start 06/19/17 at 10:00 Escitalopram Oxalate (Lexapro) 10 mg QHS PO Last administered on 06/24/17 20: 47; Admin Dose 10 MG; Start 06/19/17 at 21:00 Furosemide (Lasix) 40 mg DAILY@06 PO Last administered on 06/25/17 06:15; Admin Dose 40 MG; Start 06/19/17 at 12:00 Lactulose (Enulose) 20 gm QHS PO Last administered on 06/24/17 20:47; Admin Dose 20 GM; Start 06/19/17 at 21:00 Multivitamins Therapeutic (Theragran) 1 tab DAILY PO Last administered on 06/24 08:17; Admin Dose 1 TAB; Start 06/19/17 at 12:00 Nifedipine (Procardia Xl) 30 mg DAILY PO Last administered on 06/24/17 13:45 ; Admin Dose 30 MG; Start 06/19/17 at 12:00 Pantoprazole (Protonix Tab) 40 mg BID@18 PO Last administered on 06/25/17 06:15; Admin Dose 40 MG; Start 06/19/17 at 18:00 Miscellaneous Information 1 ea NOTE XX ; Start 06/19/17 at 12:00 Glucose (Glutose) 15 gm Q15M PRN PO DECREASED GLUCOSE; Start 06/19/17 at 12:00 Glucose (Glutose) 22.5 gm Q15M PRN PO DECREASED GLUCOSE; Start 06/19/17 at 12: 00 Dextrose (D50w Syringe) 25 ml Q15M PRN IV DECREASED GLUCOSE; Start 06/19/17 at 12:00 Dextrose (D50w Syringe) 50 ml Q15M PRN IV DECREASED GLUCOSE; Start 06/19/17 at 12:00 Glucagon (Glucagen) 1 mg Q15M PRN IM DECREASED GLUCOSE; Start 06/19/17 at 12:00 Glucose (Glutose) 15 gm Q15M PRN BUCCAL DECREASED GLUCOSE; Start 06/19/17 at 12 :00 Epoetin Sean (Epogen (Esrd)) 10,000 units MoWeFr@17 SC Last administered on 20:47; Admin Dose 10,000 UNITS; Start 06/19/17 at 17:00 Atorvastatin Calcium (Lipitor) 10 mg DAILY@21 PO Last administered on 20:47; Admin Dose 10 MG; Start 06/19/17 at 21:00 Diagnostic Test (Pha) (Accu-Chek) 1 ea 02 XX Last administered on 06/25/17 02 :40; Admin Dose 1 EA; Start 06/20/17 at 02:00 Insulin Glargine (Lantus) 20 unit QHS SC Last administered on 06/24/17 21:00 ; Admin Dose 20 UNIT; Start 06/20/17 at 21:00 Clonidine (Catapres) 0.1 mg Q4H PRN PO for SBP>170mm,DBP>100mm hg; Start at 16:00 NICOLE WANG MD Jun 25, 2017 08:34
[2017-06-25] MEDS: MULTIVITAMINS THERAPEUTIC TAB PO SCH (08:49)
[2017-06-25] MEDS: NIFEdipine (XL) 30 MG TAB PO SCH (08:50)
--- NOTE | 2017-06-25 08:57 | CONS ---
Date/Time of Note Date/Time of Note DATE: 06/25/17 TIME: 08:56 Assessment/Plan Assessment/Plan Additional Assessment/Plan Additional Assessment/Plan IMPRESSION: 1. Severe anemia, most probably related to the chronic disease and also renal failure. hematocrit is is steadily dropping stool for occult blood is positive 2. Gastric varicose vein. 3. History of peptic ulcer disease. 4. Diabetes mellitus. 5. Hypertension. 6. Obesity. 7. Obstructive sleep apnea. 8. Epistaxis is a main issue and Plan Monitor H&H Continue present care Endoscopic findings most consistent with the bleeding from nose Case was discussed with Dr. Brice Follow-up with ENT surgeon Consultation Date/Type/Reason Admit Date/Time Jun 19, 2017 at 02:41 Type of Consultation: Nephrology 24 HR Interval Summary Free Text/Dictation Patient yesterday complained of nose bleeding after cauterization and it is coming from both nostrils. No evidence of GI bleeding Exam/Review of Systems Vital Signs Vitals Vital Signs Date Time Temp Pulse Resp B/P Pulse Ox O2 Delivery O2 Flow Rate FiO2 06/25/17 07:51 98.3 74 18 119/57 96 06/22/17 19:04 Nasal Cannula 2.0 Intake and Output 06/24/17 06/24/17 06/25/17 15:00 23:00 07:00 Intake Total 1220 ml 500 ml Output Total 3800 ml Balance -2580 ml 500 ml Exam Constitutional: alert, oriented, well developed Psych: nl mood/affect, no complaints Head: atraumatic, normocephalic Eyes: EOMI, PERRL, nl conjunctiva, nl lids, nl sclera ENMT: nl external ears & nose, nl lips & teeth, nl nasal mucosa & septum Neck: non-tender, supple Respiratory: clear to auscultation, normal air movement Cardiovascular: nl pulses, regular rate and rhythm Gastrointestinal: nl liver, spleen, non-tender, soft Musculoskeletal: nl extremities to inspection, nl gait and stance Extremities: normal pulses 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: [employer] II-XII intact, nl mental status, nl speech, nl strength Skin: nl turgor, No rash or lesions Lymph: nl lymph nodes Results Result Diagram: 06/24/17 0530 06/24/17 0530 Results 24 hrs Laboratory Tests Test 06/24/17 12:20 06/24/17 18:28 06/24/17 20:45 06/25/17 02:37 Bedside Glucose 244 H 209 272 H 262 H Test 06/25/17 08:46 Bedside Glucose 273 H Medications Medications Current Medications Ondansetron HCl (Zofran Inj) 4 mg Q6H PRN IV NAUSEA AND/OR VOMITING; Start 06/19/17 at 10:00 Acetaminophen (Tylenol Tab) 650 mg Q6H PRN PO PAIN LEVEL 1-3 OR FEVER Last administered on 06/21/17 20:18; Admin Dose 650 MG; Start 06/19/17 at 10:00 Escitalopram Oxalate (Lexapro) 10 mg QHS PO Last administered on 06/24/17 20: 47; Admin Dose 10 MG; Start 06/19/17 at 21:00 Furosemide (Lasix) 40 mg DAILY@06 PO Last administered on 06/25/17 06:15; Admin Dose 40 MG; Start 06/19/17 at 12:00 Lactulose (Enulose) 20 gm QHS PO Last administered on 06/24/17 20:47; Admin Dose 20 GM; Start 06/19/17 at 21:00 Multivitamins Therapeutic (Theragran) 1 tab DAILY PO Last administered on 06/25 08:49; Admin Dose 1 TAB; Start 06/19/17 at 12:00 Nifedipine (Procardia Xl) 30 mg DAILY PO Last administered on 06/25/17 08:50 ; Admin Dose 30 MG; Start 06/19/17 at 12:00 Pantoprazole (Protonix Tab) 40 mg BID@,18 PO Last administered on 06/25/17 06:15; Admin Dose 40 MG; Start 06/19/17 at 18:00 Miscellaneous Information 1 ea NOTE XX ; Start 06/19/17 at 12:00 Glucose (Glutose) 15 gm Q15M PRN PO DECREASED GLUCOSE; Start 06/19/17 at 12:00 Glucose (Glutose) 22.5 gm Q15M PRN PO DECREASED GLUCOSE; Start 06/19/17 at 12: 00 Dextrose (D50w Syringe) 25 ml Q15M PRN IV DECREASED GLUCOSE; Start 06/19/17 at 12:00 Dextrose (D50w Syringe) 50 ml Q15M PRN IV DECREASED GLUCOSE; Start 06/19/17 at 12:00 Glucagon (Glucagen) 1 mg Q15M PRN IM DECREASED GLUCOSE; Start 06/19/17 at 12:00 Glucose (Glutose) 15 gm Q15M PRN BUCCAL DECREASED GLUCOSE; Start 06/19/17 at 12 :00 Epoetin Sean (Epogen (Esrd)) 10,000 units MoWeFr@17 SC Last administered on 20:47; Admin Dose 10,000 UNITS; Start 06/19/17 at 17:00 Atorvastatin Calcium (Lipitor) 10 mg DAILY@21 PO Last administered on 20:47; Admin Dose 10 MG; Start 06/19/17 at 21:00 Diagnostic Test (Pha) (Accu-Chek) 1 ea 02 XX Last administered on 06/25/17 02 :40; Admin Dose 1 EA; Start 06/20/17 at 02:00 Insulin Glargine (Lantus) 20 unit QHS SC Last administered on 06/24/17 21:00 ; Admin Dose 20 UNIT; Start 06/20/17 at 21:00 Clonidine (Catapres) 0.1 mg Q4H PRN PO for SBP>170mm,DBP>100mm hg; Start at 16:00 STUART STANLEY MD Jun 25, 2017 08:57
[2017-06-25] MEDS: INSULIN ASPART [NOVOLOG] 3 ML PEN SC SCH (09:00)
[2017-06-25] MEDS ORDERED: CLON0.1T14 PO (09:35)
[2017-06-25 10:42] LABS: BASOPHILS % 0.4 % (0.0-2.0); EOSINOPHILS # 0.4 10^3/ul (0.0-0.5); EOSINOPHILS % 4.5 % (0.0-7.0); HEMATOCRIT 29.8 % (42.0-52.0); HEMOGLOBIN 9.7 g/dl (14.0-18.0); LYMPHOCYTES # 1.3 10^3/ul (0.8-2.9); LYMPHOCYTES % 16.8 % (15.0-51.0); MEAN CORPUSCULAR HEMOGLOBIN 29.1 pg (29.0-33.0); MEAN CORPUSCULAR HGB CONC 32.6 g/dl (32.0-37.0); MEAN CORPUSCULAR VOLUME 89.5 fl (82.0-101.0); MEAN PLATELET VOLUME 11.5 fl (7.4-10.4); MONOCYTE # 0.5 10^3/ul (0.3-0.9); MONOCYTES % 6.9 % (0.0-11.0); NEUTROPHIL # 5.5 10^3/ul (1.6-7.5); PLATELET COUNT 128 10^3/UL (140-415); RED BLOOD COUNT 3.33 10^6/ul (4.70-6.10); RED CELL DISTRIBUTION WIDTH 15.2 % (11.5-14.5); WHITE BLOOD COUNT 7.7 10^3/ul (4.8-10.8)
[2017-06-25 11:25] LABS: CALCIUM 8.6 mg/dl (8.4-10.2); CREATININE 3.39 mg/dl (0.61-1.24); POTASSIUM 4.1 mmol/L (3.5-5.1)
--- NOTE | 2017-06-25 16:50 | PN ---
DATE: 06/24/2017 SUBJECTIVE: The patient complains of oozing from the left nostril. Dr. Bland's ENT evaluation and recommendations are greatly appreciated. Status post cauterization of bleeding yesterday with placement of Surgicel in the right nasal cavity. PHYSICAL EXAMINATION GENERAL: The patient is awake, alert. VITAL SIGNS: Temperature 98.1, blood pressure 139/84, respiration 20 per minute. HEENT: Head normocephalic. LUNGS: Clinically clear. HEART: S1, S2 with no definite gallops. EXTREMITIES: No edema. Homans negative. LABORATORY DATA: WBC count is 5.4, hematocrit 27.8. BUN 66, creatinine 0.59, glucose 244 and 180 t katerin. IMPRESSION: 1. Epistaxis from bilateral nostrils status post cauterization with some oozing. 2. Anemia status post gastrointestinal bleed. 3. Mild gastritis. 4. Chronic kidney disease, on intermittent hemodialysis. 5. Diabetes mellitus type 2. 6. Cirrhosis with portal hypertension. 7. Obstructive sleep apnea. PLAN: The patient is awaiting for dialysis. We will continue to monitor for further bleeding. If stable, we will discharge home after dialysis after discussing with Dr. Doran. Dictated By: JENY MORA MD, SR/PEG Conf#: [id number] DID#: [id number]
--- NOTE | 2017-06-25 23:10 | DS ---
DATE OF ADMISSION: 06/19/2017 DATE OF DISCHARGE: 06/25/2017 FINAL DIAGNOSES: 1. Severe anemia secondary to chronic gastrointestinal blood loss, history of peptic ulcer disease and gastric varices. 2. Epistaxis from both nostrils, resolved. 3. Hypertension, well controlled. 4. End-stage renal disease on maintenance hemodialysis. 5. Hepatic cirrhosis with portal hypertension, status post hepatitis C, treated. 6. Obesity. 7. Obstructive sleep apnea. 8. Diabetes mellitus type 2. 9. Metabolic syndrome. HOSPITAL COURSE: The patient is a 62-year-old gentleman well known to me from previous followup, wi th history of severe anemia which was discovered as blood was drawn in the dialysis unit 2 days prio r, with a hemoglobin of 5.9, was evaluated in the emergency room and was admitted. The patient had been having increasing weakness and difficulty with ambulation with dizziness 1 week prior. The pat ient was found to be in no acute distress. PHYSICAL EXAMINATION: VITAL SIGNS: Temperature 98.4, blood pressure 137/78, O2 sats 96%. LUNGS: Clinically clear. ABDOMEN: Soft, nontender. No hepatosplenomegaly. EXTREMITIES: 1+ edema. The patient was begun on RBC transfusion, along with hemodialysis per Dr. Da Silva. The patient w as seen by Dr. Arteaga from GI standpoint, and fresh blood was seen in the introitus of the esophagus . It was felt to be coming from the epistaxis. Had grade I esophageal varicose veins and gastric v aricose vein in the fundal area, along with mild gastritis. The patient was maintained on PPI and a n ENT evaluation was performed by Dr. Bland. The bleeding vessels were cauterized in the nostrils with improvement of epistaxis. The patient was felt not to be a candidate for beta nicole because of severe bradycardia, and patient was advised to follow with [facility] for a possible TIPS procedure, as the patient is being evaluated for transplants, kidney and liver at [facility]. The patient had been on Lantus insulin 20 units. We will advise to increase to 25 units subcutaneous q.p.m. Follow vickie Da Silva as outpatient. Continue Epogen as an outpatient. DISCHARGE CONDITION: Much improved. Dictated By: JENY MORA MD SR/NTS Conf#: [id number] [facility]#: [id number]
== END 2017-06-25 10:55 | disposition home or self-care (01) | DRG 981 ==
LOC: E/R 21:55 → MS2 06-19 02:41
PROVIDERS: ADMIT Internal Medicine; ATTEND Internal Medicine
PROC: 0W3Q7ZZ Control Bleeding in Respiratory Tract, Via Natural or Artificial Opening (ICD-10-PCS; principal; 2017-06-19)
PROC: 30233N1 Transfusion of Nonautologous Red Blood Cells into Peripheral Vein, Percutaneous Approach (ICD-10-PCS; 2017-06-19)
PROC: 0DJ08ZZ Inspection of Upper Intestinal Tract, Via Natural or Artificial Opening Endoscopic (ICD-10-PCS; 2017-06-22)
DX: K92.2 Gastrointestinal hemorrhage, unspecified (principal); N18.6 End stage renal disease; D61.818 Other pancytopenia; K76.6 Portal hypertension; I12.0 Hypertensive chronic kidney disease with stage 5 chronic kidney disease or end stage renal disease; Z68.43 Body mass index [BMI] 50.0-59.9, adult; E11.22 Type 2 diabetes mellitus with diabetic chronic kidney disease; D62 Acute posthemorrhagic anemia; I85.10 Secondary esophageal varices without bleeding; K74.69 Other cirrhosis of liver; E11.65 Type 2 diabetes mellitus with hyperglycemia; Z99.2 Dependence on renal dialysis; I86.4 Gastric varices; E66.9 Obesity, unspecified; D63.1 Anemia in chronic kidney disease; R04.0 Epistaxis; G47.33 Obstructive sleep apnea (adult) (pediatric); Z79.4 Long term (current) use of insulin; B19.20 Unspecified viral hepatitis C without hepatic coma; K27.7 Chronic peptic ulcer, site unspecified, without hemorrhage or perforation
CPT/HCPCS: 36415; 36430; 80048; 80053; 81001; 82270; 82728; 82962; 83540; 84132; 84484; 85014; 85018; 85025; 85610; 85730; 86850; 86900; 86901; 86920; 87081; 90935; 93005; 96372; J1815; J2916; J7040; P9016; Q4081

== ENCOUNTER 2017-07-10 14:51 | Inpatient (IN) | END 2017-07-17 16:21 | disposition home or self-care (01) | DRG 393 ==

== ENCOUNTER 2017-07-20 13:35 | Inpatient (IN) | END 2017-07-25 14:15 | disposition short-term general hospital (02) | DRG 377 ==

== ENCOUNTER 2017-10-26 06:04 | Inpatient (IN) | END 2017-10-29 17:00 | disposition home or self-care (01) | DRG 368 ==

== ENCOUNTER 2017-11-04 17:47 | Inpatient (IN) | END 2017-11-11 15:00 | disposition home or self-care (01) | DRG 380 ==

== ENCOUNTER 2017-11-23 11:18 | Inpatient (IN) | END 2017-12-01 17:30 | disposition short-term general hospital (02) | DRG 378 ==

== ENCOUNTER 2017-12-12 18:03 | Inpatient (IN) | END 2018-01-06 17:10 | disposition home or self-care (01) | DRG 377 ==

== ENCOUNTER 2018-01-30 19:14 | Inpatient (IN) | END 2018-02-03 16:50 | disposition home or self-care (01) | DRG 682 ==

== ENCOUNTER → 2018-03-23 | Outpatient (CLI) | END | disposition home or self-care (01) ==

== ENCOUNTER → 2018-04-26 | Outpatient (CLI) | END | disposition home or self-care (01) ==

== ENCOUNTER → 2018-06-28 | Outpatient (CLI) | END | disposition home or self-care (01) ==

== ENCOUNTER 2018-08-23 07:30 | Inpatient (IN) | payer BC ==
[2018-08-23] VITALS (23 sets, daily range): BP systolic 106–159; BP diastolic 59–89; PULSE 49–75; RESP 12–24; Ht 182.9 cm; Wt 124.5 kg
[~2018-08-23] VITALS: Ht 182.9 cm; Wt 124.5 kg
[~2018-08-23 07:30] MED LIST changes: -BACTRIM PO; +ESCI10TA PO; -ESCI10TA48 PO; -MULTI PO; -NIFE30TA2 PO; +PANT40TA3 PO; -PANT40TA4 PO; +PROP10TA6 PO
[2018-08-23] MEDS ORDERED: morphine 4 MG/ML VIAL IV STA ×2 (07:44→08:47)
[2018-08-23] MEDS ORDERED: ONDANSETRON 4 MG INJ IV STA (07:44)
[2018-08-23] MEDS ORDERED: ASPIRIN 81 MG TAB PO STA (07:44)
[2018-08-23] MEDS ORDERED: NITROGLYCERIN 2% 1 GM OINT PKT TD STA (07:44)
[2018-08-23] MEDS ORDERED: CARAS PO (07:58)
[2018-08-23] MEDS ORDERED: CHOL100062 PO (07:58)
--- NOTE | 2018-08-23 08:24 | ERD ---
ER Documentation Chief Complaint Chief Complaint CHEST PAIN, SOB, ONSET SEVERAL DAYS, DIALYSIS PT HPI 63-year-old gentleman history of hepatitis C induced cirrhosis on the transplant list, end-stage renal disease on dialysis Thursday, last dialysis Thursday. The patient presents with less than 12-24 hours of chest pain. He describes substernal chest pressure rating to the left shoulder that is moderate with associated mild shortness of breath. He denies pleuritic pain. He denies any middle back pain. The patient recently had a mitral valve clipping but no history of coronary disease or stents. ROS All systems reviewed and are negative except as per history of present illness. Medications Home Meds Reported Medications Cholecalciferol* (Vitamin D3*) 1,000 Unit Tablet, 2000 UNIT PO DAILY, TAB 08/23/18 Sucralfate* (Carafate*) 1 Gm/10 Ml Susp, 1 GM PO TID, EA 08/23/18 Insulin Glargine* (Lantus*) 100 Unit/Ml Soln, 30 UNIT SC QHS, #1 VIAL 11/23/17 Furosemide* (Furosemide*) 40 Mg Tablet, 40 MG PO DAILY, TAB 11/23/17 Pantoprazole* (Protonix*) 40 Mg Tablet.dr, 40 MG PO BID, TAB 10/26/17 Escitalopram Oxalate* (Lexapro*) 10 Mg Tablet, 10 MG PO QHS, TAB 10/26/17 Propranolol Hcl* (Propranolol Hcl*) 10 Mg Tablet, 10 MG PO BID, TAB 10/26/17 Lactulose* (Lactulose*) 20 Gm/30 Ml Solution, 20 GM PO QHS, ML 10/26/17 Simvastatin* (Zocor*) 20 Mg Tablet, 20 MG PO QHS, TAB 10/26/17 Allergies Allergies: Coded Allergies: ceftriaxone (Unverified Allergy, Intermediate, RASH, 08/23/18) per Mess notes 02/02/17 - rash with rocephin PMhx/Soc History of Surgery: Yes (APPENDECTOMY (1979), right upper arm fsitula , mitral valve clip) Anesthesia Reaction: No Hx 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 Disorder: No Hx Respiratory Disorders: Yes Hx Cardiac Disorders: Yes (HTN, CHF) Hx Psychiatric Problems: No Hx Miscellaneous Medical Probl: Yes (ANEMIA, MORBID OBESITY, cirrhosis , ESRF) Hx Alcohol Use: No Hx Substance Use: No Hx Tobacco Use: No Smoking Status: Never smoker FmHx Family History: No diabetes Physical Exam Vitals Vital Signs Date Temp Pulse Resp B/P (MAP) Pulse Ox O2 O2 Flow FiO2 Time Delivery Rate 08/23/18 71 20 149/75 99 Room Air 07:49 (99) 08/23/18 97.7 66 19 165/78 99 07:34 (107) Physical Exam General: Well developed, well nourished, no acute distress Head: Normocephalic, atraumatic. Eyes: Pupils equally reactive, EOM intact ENT: Moist mucous membranes Neck: Supple, no lymphadenopathy Respiratory: Lungs clear bilaterally, no distress Cardiovascular: RRR, no murmurs, rubs, or gallops Abdominal: Soft, non-tender, non-distended, no peritoneal signs : Deferred MSK: No edema, no unilateral swelling, 5/5 strength Neurologic: Alert and oriented, moving all extremities, normal speech, no focal weakness, no cerebellar signs Skin: No rash Psych: Normal mood Result Diagram: 08/23/18 0807 08/23/18 0807 Results 24 hrs Laboratory Tests Test 08/23/18 08:07 White Blood Count 6.0 10^3/ul Red Blood Count 2.06 10^6/ul Hemoglobin 6.5 g/dl Hematocrit 20.5 % Mean Corpuscular Volume 99.5 fl Mean Corpuscular Hemoglobin 31.6 pg Mean Corpuscular Hemoglobin Concent 31.7 g/dl Red Cell Distribution Width 20.4 % Platelet Count 64 10^3/UL Mean Platelet Volume 12.3 fl Immature Granulocytes % 1.000 % Neutrophils % 71.1 % Lymphocytes % 14.6 % Monocytes % 8.5 % Eosinophils % 4.5 % Basophils % 0.3 % Nucleated Red Blood Cells % 0.0 /100WBC Immature Granulocytes # 0.060 10^3/ul Neutrophils # 4.3 10^3/ul Lymphocytes # 0.9 10^3/ul Monocytes # 0.5 10^3/ul Eosinophils # 0.3 10^3/ul Basophils # 0.0 10^3/ul Nucleated Red Blood Cells # 0.0 10^3/ul Prothrombin Time 13.5 Sec Prothrombin Time Ratio 1.1 INR International Normalized Ratio 1.02 Activated Partial Thromboplast Time 38.9 Sec Sodium Level 137 mmol/L Potassium Level 4.2 mmol/L Chloride Level 98 mmol/L Carbon Dioxide Level 31 mmol/L Anion Gap 8 Blood Urea Nitrogen 58 mg/dl Creatinine 4.61 mg/dl Est Glomerular Filtrat Rate mL/min 13 mL/min Glucose Level 216 mg/dl Calcium Level 9.1 mg/dl Troponin I 0.100 ng/ml Current Medications Medications Dose Sig/Irasema Start Time Status Last (Trade) Ordered Route PRN Stop Time Admin Dose Reason Admin Aspirin 162 mg ONCE STAT 08/23/18 DC 08/23/18 (Aspirin) PO 07:44 08:17 08/23/18 07:45 1 inch ONCE STAT 08/23/18 DC 08/23/18 Nitroglycerin TD 07:44 08:17 08/23/18 07:45 (Nitroglyceri n 2% Oint) Morphine 4 mg ONCE STAT 08/23/18 DC 08/23/18 Sulfate IV 07:44 08:17 (morphine) 08/23/18 07:45 Ondansetron 4 mg ONCE STAT 08/23/18 DC 08/23/18 HCl (Zofran IV 07:44 08:17 Inj) 08/23/18 07:45 Sodium 0 ml @ 0 Q0M ONCE 08/23/18 DC Chloride mls/hr IV 08:40 08/23/18 08:41 Morphine 4 mg ONCE STAT 08/23/18 DC 08/23/18 Sulfate IV 08:47 09:00 (morphine) 08/23/18 08:48 Ondansetron 4 mg ER BRIDGE 08/23/18 HCl (Zofran PRN IV 09:30 Inj) NAUSEA/VOMITI 08/24/18 09:29 NG 650 mg ER BRIDGE 08/23/18 Acetaminophen PRN PO 09:30 (Tylenol .MILD PAIN 08/24/18 09:29 Tab) 1-3 OR TEMP Procedures/MDM EKG, MONITORS, & DIAGNOSTIC IMAGING: EKG: I reviewed and interpreted a 12-lead EKG. Rhythm: Normal sinus rhythm ST Changes: No contiguous ST segment elevations T waves: No contiguous T wave inversions Impression: [No evidence of acute cardiac ischemia] Repeat EKG: EKG: I reviewed and interpreted a 12-lead EKG. Rhythm: Normal sinus rhythm ST Changes: No contiguous ST segment elevations T waves: No contiguous T wave inversions Impression: [No evidence of acute cardiac ischemia] Chest x-ray: I reviewed and interpreted a 1 view of the chest Mediastinum: No enlargement Cardiac silhouette: No cardiomegaly Airspace: Clear lung ramos bilaterally without evidence of pneumothorax Bones: No evidence of fracture PROCEDURES: [None] LAB INTERPRETATION: I reviewed the patient's laboratory testing and it shows evidence of anemia with a hemoglobin of 6.5. No hyperkalemia MEDICAL DECISION MAKING: The patient's history, physical exam and clinical presentation is concerning for possible cardiogenic etiology and acute coronary syndrome. Based on the patient's clinical exam and history and risk factors, I have a much lower clinical concern for pulmonary embolism, acute aortic dissection, pneumothorax, pneumonia, cardiac tamponade HEART Score: >4 MACE Rate: 16.6% Shared Decision Making: We had a conversation regarding risk stratification, MACE rate, and the risks, benefits, alternatives of disposition planning options. Disposition planning: admit for r/o ER COURSE: * I discussed with the patient and/or family the risks, benefits, alternatives of blood transfusion. This includes allergic reaction and infections including HIV and hepatitis. The patient and/or family were able to verbalize these risks, stated understanding. A document has been signed and placed in the chart. * 1 unit of packed red blood cells has been ordered. The chest pain is resolved. * Headache treated with morphine. Likely secondary to nitroglycerin CONSULTATION: [None] DISPOSITION PLAN: Telemetry admission for management of chest pain to rule out acute coronary syndrome, serial enzymes, risk stratification and consideration of provocative testing CONSULTATION: Accepting care team and consultations: I discussed the current laboratory data, diagnostic imaging and emergency care provided. Admitting team: Dr. Brice Admitting team indication: Insurance directed Departure Diagnosis: Primary Impression: Chest pain Chest pain type: unspecified Qualified Codes: R07.9 - Chest pain, unspecified Additional Impressions: Cirrhosis Hepatic cirrhosis type: other cirrhosis Qualified Codes: K74.69 - Other cirrhosis of liver ESRD (end stage renal disease) on dialysis Hepatitis C Viral hepatitis chronicity: unspecified Hepatic coma status: without hepatic coma Qualified Codes: B19.20 - Unspecified viral hepatitis C without hepatic coma Anemia Anemia type: unspecified type Qualified Codes: D64.9 - Anemia, unspecified Condition: Stable ANA SALDAÑA MD Aug 23, 2018 08:24
[2018-08-23] MEDS ORDERED: SOD CHLORIDE 0.9% 0 ML IV ONE (08:40)
[2018-08-23] MEDS ORDERED: ONDANSETRON 4 MG INJ IV PRN ×2 (09:30→14:30)
[2018-08-23] MEDS ORDERED: ACETAMINOPHEN 325 MG TAB PO PRN ×2 (09:30→14:30)
--- NOTE | 2018-08-23 12:23 | CONS ---
Assessment/Plan Assessment/Plan Assessment/Plan (Daily) INPATIENT CONSULTATION REQUESTING PHYSICIAN: Dr. Brice REASON FOR CONSULT: Chest pain, anemia HISTORY OF PRESENT ILLNESS: Patient is a 63-year-old [place] male with 1. Chronic renal failure on dialysis. 2. Status post mitral valve clipping at [facility] 07/31. 3. Cirrhosis, hepatitis C multiple GI bleeds in the past with portal hypertension esophageal varices. 4. Anemia/thrombocytopenia. 5. Depression. 6. Dysphasia over the last month. Patient admitted with just chronic chest discomfort and dysphasia found to be markedly anemic. Recently had mitral valve clipping at [facility] has already had angiography in June 2017 revealing no significant coronary disease. Currently denies any chest pains PND orthopnea syncope near syncope leg edema or palpitations. 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 RISK FACTORS pertinent for age, there is no hypertension diabetes gout smoking or family history of early heart disease. PAST MEDICAL HISTORY: 1. As above PAST SURGICAL HISTORY: Mitral valve clipping. MEDICATIONS: Was on Lexapro, Protonix, no cardiac medications. ALLERGIES: Ceftriaxone SOCIAL HISTORY: Lives with his denies any smoking alcohol or drug use. FAMILY HISTORY: Noncontributory no early history of immature coronary disease REVIEW OF SYSTEMS: Not really obtained patient not communicative. PHYSICAL EXAMINATION: Vital signs please see chart. HEENT; no JVD, no HJR, carotids 2 over 4+ without bruits. Chest: Clear to auscultation and percussion, no rales, wheezes or rhonchi. Cardiac: S4, S1, S2 with normal physiologic splitting, 1/6 systolic ejection murmur, no rub click or diastolic murmur noted. Abdominal: Bowel sounds positive, soft nontender, no abdominal bruit noted, no hepatosplenomegaly. Extremities: No cyanosis, clubbing, or edema. Negative Homans sign or palpable cords. Pulses: 2/4 pulses diffusely no bruits noted. ADDITIONAL DATA: EKG on the at 750 2 in the morning revealed sinus rhythm at 70 normal tracing. Chest x-ray revealed cardiomegaly mitral valve clip noted no heart failure no wide mediastinum. Hemoglobin 6.5 hematocrit 20.5 platelets 64,000 normal electrolytes bun 58 creatinine 4.6- troponin. ASSESSMENT: 1. Chest painatypical GI in etiology. 2. Profound dysphagia worsening over the last month. 3. Chronic renal failure on dialysis. 4. Status post mitral valve clipping 07/31 at [facility]. Prior angiogram 06/28 no coronary disease. 5. Profound anemia and thrombocytopenia. 6. Cirrhosis from hepatitis C with esophageal varices and prior multiple GI bleeds. 7. Depression. At this time the patient has noncardiac chest pain probably GI in etiology with profound dysphagia may be due to esophageal varices with bleeding. Agree with transfusion, will check echocardiogram for mitral valve clipping and degree of mitral regurgitation. Case discussed with Dr. Brice. PLAN: 1. Transfuse keep hematocrit over 28. 2. Check 2D echocardiogram for mitral valve clipping. 3. GI consultation with profound dysphagia, GI bleeding and known cirrhosis and varices. MARBIN WOLFE MD Aug 23, 2018 12:23
[2018-08-23] MEDS ORDERED: SOD CHLORIDE 0.45% 1,000 ML IV SCH (14:15)
--- NOTE | 2018-08-23 14:55 | HP ---
DATE OF ADMISSION: 08/23/2018 CHIEF COMPLAINT AND HISTORY OF PRESENT ILLNESS: The patient is a 63-year-old gentleman with a prior history of hepatitis C-induced cirrhosis with end-stage renal disease on hemodialysis Thursday, and Thursday. Last dialysis on Thursday presenting with a 24-hour history of recurrent hea daches and chest pain with some shortness of breath and patient was evaluated in the Emergency Room a nd was admitted. The patient had a mitral valve clipping recently at [facility], about 3 weeks ago, a we ek after which he began having increasing dysphagia, had been seen at [facility], an echocardiogram was performed and he was discharged home. The dysphagia has been progressively getting better. He is ab le to swallow much better. The patient has recently started on baby aspirin 81 mg daily after the mitral valve clipping. MEDICATIONS: 1. Vitamin D 1000 units every day. 2. Carafate 1 gram t.i.d. 3. Lantus insulin 30 units every day. 4. Lasix 40 mg daily. 5. Pantoprazole 40 mg daily. 6. Lexapro 10 mg daily. 7. Propranolol 10 mg b.i.d. 8. Simvastatin 20 mg daily. ALLERGIES: CEFTRIAXONE. REVIEW OF SYSTEMS: HEAD: Recent headaches with no focal weakness or numbness. EYES: No blurry vision or glaucoma. ENT: Noncontributory. NECK: No history of thyroid disease. CHEST: No bronchitis, hay fever, or asthma. The patient does not smoke. CARDIOVASCULAR: No history of PND, orthopnea. Angiogram done about a year ago showed no evidence of significant coronary artery disease. Mitral regurgitation, status post mitral valve clipping done a [facility] about 3 weeks ago. GASTROINTESTINAL: History of cirrhosis with portal hypertension, status post multiple GI bleeds, inc luding gastric and esophageal varices, gastric ulcer, hemorrhoidal bleed and a possible small bowel A VM bleed as well. GENITOURINARY: No dysuria, hematuria, kidney stones. According to patient's , patient has been having some blood in the urine. No dysuria. HEMATOLOGIC: History of thrombocytopenia. ENDOCRINE: History of diabetes mellitus type 2. PHYSICAL EXAMINATION: GENERAL: The patient is an obesely-built male. The patient is an obesely built male presently in no acute distress. VITAL SIGNS: Blood pressure 125/68, O2 sats 100% on 2 liters nasal cannula, heart rate 60 per minute and regular. HEENT: Head normocephalic. Mild pallor without cyanosis. Tongue is coated, moist. NECK: Supple, no thyromegaly, bruits or lymphadenopathy. LUNGS: Clinically clear. HEART: S1, S2 with no definite gallops. ABDOMEN: Obese, nontender. No definite hepatosplenomegaly. EXTREMITIES: Trace edema. Homans sign is negative. NEUROLOGIC: No localizing or lateralizing signs. LABORATORY DATA: WBC count 6.0, hematocrit 20.5, platelet count 64,000. Sodium 137, potassium 4.2, BUN 58, creatinine is 4.61. Troponin 0.1. PT/INR is 1.02, PTT is 38.9. Chest x-ray shows mild card iomegaly, no evidence of CHF. IMPRESSION: 1. Chest pain is atypical, likely esophagitis, recent dysphagia which has been getting better gradua lly over the last few weeks after mitral valve clipping. 2. Mitral regurgitation, status post mitral valve clipping on 07/31/[address] [facility]. 3. Chronic renal failure on hemodialysis. 4. 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 5. Cirrhosis with portal hypertension, prior history of hepatitis C. 6. History of underlying depression. 7. Obesity. 8. Diabetes mellitus type 2. PLAN: Will hold aspirin for now. Continue Protonix and Carafate and start the patient on mechanical soft diet as tolerated. GI consultation at the request of Dr. Arteaga. Transfuse as needed. Nephro logy consultation requested Dr. Collado and cardiology consultation, Dr. Guerrero. Observe for fa ilure and treat accordingly. Dictated By: JENY MORA MD SR/NTS Conf#: [id number] DID#: [id number] CC: JENY MORA MD;*EndCC*
[2018-08-23] MEDS ORDERED: DEXTROSE 50% 50 ML SYRINGE IV PRN ×2 (15:00)
[2018-08-23] MEDS ORDERED: GLUCOSE GEL 15 GRAM TUBE BUCCAL PRN (15:00)
[2018-08-23] MEDS ORDERED: GLUCAGON 1 MG INJ IM PRN (15:00)
[2018-08-23] MEDS ORDERED: GLUCOSE GEL 15 GRAM TUBE PO PRN ×2 (15:00)
[2018-08-23] MEDS: INSULIN ASPART [NOVOLOG] 3 ML PEN SC SCH ×2 (17:35→21:00)
--- NOTE | 2018-08-23 19:28 | CONS ---
DATE OF ADMISSION: 08/23/2018 DATE OF CONSULTATION: 08/23/2018 TYPE OF CONSULTATION: Gastroenterology. HISTORY OF PRESENT ILLNESS: The patient is a 63-year-old male with a history of hepatitis C-induced cirrhosis of liver, end-stage renal disease on dialysis, had tricuspid valve replacement percutaneous ly, and after that, the patient developed dysphagia. He had a JACQUE done at [facility] and all the dysphagia started after JACQUE examination. However, the patient became weak so he came to the ER and was found to have hemoglobin of 6.4 and was admitted for further management. HOME MEDICATIONS: He is on: 1. Lexapro. 2. Propranolol. 3. Simvastatin. 4. Pantoprazole. 5. Insulin. 6. Carafate. 7. Lasix. ALLERGIES: NONE. 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 REVIEW OF SYSTEMS: The patient denies GI bleeding. PHYSICAL EXAMINATION GENERAL: In good spirits. VITAL SIGNS: Stable. HEENT: Unremarkable. NECK: Supple. No thyromegaly and no lymphadenopathy. CARDIOVASCULAR: No murmur, gallop, or click. LUNGS: Clear. ABDOMEN: Benign. EXTREMITIES: No edema. CENTRAL NERVOUS SYSTEM: Grossly within normal limits. IMPRESSION: 1. Dysphagia after JACQUE at [facility] and also atypical chest pain. 2. Mitral regurgitation, status post mitral valve clipping. 3. Chronic renal failure. 4. Diabetes mellitus. 5. Cirrhosis of liver with portal hypertension. 6. Obesity. 7. Depression. PLAN: Plan, at this point, is to transfuse 2 units of packed cell RBC, continue present care, and we will do EGD to find the cause of his pain and also dysphagia. Dictated By: STUART CASTELLANOS/PEG Conf#: [id number] DID#: [id number] CC: JENY MORA MD; ANA MELENDEZ MD; DARRYL LIZ MD; CYNTHIA RODRIGUEZ MD; GUERITA RESENDIZ MD; STUART STANLEY MD; GUCCI HEIN MD; ASHLEY FERNANDEZ MD; ABBY COLLADO MD;*End*
[2018-08-23] MEDS ORDERED: INSULIN GLARGINE [LANTus] (100 UNITS/ML) SYG SC SCH (21:00)
[2018-08-23] MEDS: ESCITALOPRAM 10 MG TAB PO SCH (21:18)
[2018-08-23] MEDS: traMADol 50 MG TAB PO PRN (21:18)
[2018-08-23] MEDS: SUCRALFATE (100 MG/ML) 10ML CUP PO SCH (21:18)
[2018-08-23] MEDS: DEXTROSE 5%-0.45% NACL 1,000 ML IV SCH (21:21)
[2018-08-23] MEDS: morphine 2 MG INJ IV PRN (22:28)
[2018-08-24] VITALS (22 sets, daily range): BP systolic 112–156; BP diastolic 51–88; PULSE 56–83; RESP 14–19
--- NOTE | 2018-08-24 01:00 | CONS ---
DATE OF ADMISSION: 08/23/2018 DATE OF CONSULTATION: 08/23/2018 NEPHROLOGY CONSULTATION REQUESTING PHYSICIAN: Thank you, Dr. Brice for asking me to participate in medical management of this patient. REASON FOR CONSULTATION: End-stage renal disease on maintenance hemodialysis. HISTORY OF PRESENT ILLNESS: This 63-year-old man is now admitted to the intensive care unit after co michael through the emergency room. I have known this man for almost 2 years from prior admissions to [facility]. The patient has end-stage renal disease. He has been on maintenance hemodialysis , and Thursday at a [facility]. He was last dialyzed 2 days ago. The pa sintia was apparently well until 08/04/2018 when he had a mitral valve endovascular clipping procedure by Dr. Wolfe at [facility]. That procedure was done because of mitral regurgitation and the patient is being prepared for a liver-kidney transplant at [facility]. The patient has end-stage renal disease and cirrhosis. He has a history of hepatitis C, which was treate d and thought to be in remission. However, before he was treated for the hepatitis C, he did develop cirrhosis of the liver. After developing the cirrhosis, he then went on to develop chronic kidney d isease and eventually end-stage renal disease. The patient was admitted to the hospital today after being seen in the ER for dizziness, left chest pain and some neck pain. His hemoglobin today in the emergency room was 6.5. He did have a hemoglobin in this emergency room on 08/09/2018 of 9.8. He mccallum s not had any gastrointestinal bleeding seen by his . The patient was placed on aspirin after mccallum ving the mitral valve clipping. The patient does have a history of recurrent gastrointestinal bleedi ng. 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 The patient did undergo an EGD by Dr. Arteaga here in this hospital in December 2017. At [facility] time, Dr. Arteaga did see an AVM in the small bowel, but was unable to cauterize it. The patient ap parently, since that December 2017 admission here, has been doing fairly well without any drop in his hem oglobin. The admission in December of 2017 was complicated by congestive heart failure and aspiration pn eumonia. The patient was in respiratory distress and did require BiPAP. The patient has had some dy sphagia since the mitral valve clipping. PAST MEDICAL HISTORY: Cirrhosis of the liver, end-stage renal disease on maintenance hemodialysis, r ecurrent GI bleeding, history of congestive heart failure, type 2 diabetes mellitus, hypertension, hi story of aspiration pneumonia, hepatic encephalopathy, mitral regurgitation. PAST SURGICAL HISTORY: Right upper arm AV fistula for hemodialysis. CURRENT MEDICATIONS: 1. Vitamin D 1000 units a day. 2. Carafate 1 gram t.i.d. 3. Lantus insulin 30 units every day. 4. Lasix 40 mg a day. 5. Pantoprazole 40 mg a day. 6. Lexapro 10 mg a day. 7. Propranolol 10 mg twice a day. 8. Simvastatin 20 mg a day. ALLERGIES: CEFTRIAXONE. PHYSICAL EXAMINATION: GENERAL: At this time, reveals an obese man in no apparent distress. He is awake, alert and talking . VITAL SIGNS: Temperature 97.3, pulse of 50, respirations 13, blood pressure 126/76, O2 saturation 10 0% on 2 liter nasal cannula. HEAD: Normocephalic. EYES: Extraocular muscles intact. NOSE AND MOUTH: Normal. NECK: Supple. No neck vein distention. LUNGS: Clear to auscultation. HEART: Regular rhythm. No murmurs, gallops or rubs. ABDOMEN: Obese. Could be ascites. Soft, nontender. EXTREMITIES: No peripheral edema. NEUROLOGIC: Grossly intact. IMPRESSION: 1. End-stage renal disease. The patient is currently being dialyzed. I am doing the dialysis both for his renal failure and also to be able to give him 2 units of blood. He is tolerating the dialysi s well. Next dialysis to be determined. 2. Cirrhosis of the liver. 3. Presumed gastrointestinal bleeding. 4. Anemia of chronic disease due to gastrointestinal bleeding. 5. Hypertension. 6. History of hepatitis C in remission. 7. Type 2 diabetes mellitus. 8. Thrombocytopenia. 9. History of congestive heart failure. 10. Recent mitral valve clipping procedure. PLAN: 1. Hemodialysis treatment now. 2. Transfuse blood as needed to maintain adequate hemoglobin. 3. EGD to be done by Dr. Arteaga tomorrow. 4. Check labs in the morning. 5. I will follow the patient along with you. Dictated By: ANA MELENDEZ MD ND/NTS Conf#: [id number] DID#: [id number] CC: JENY BRICE MD;*EndCC*
[2018-08-24] MEDS: ACCU-CHEK XX SCH ×2 (02:00→21:18)
[2018-08-24] MEDS: morphine 2 MG INJ IV PRN ×3 (04:46→23:41)
[2018-08-24] MEDS ORDERED: PANTOPRAZOLE 40 MG INJ IV SCH (06:00)
[2018-08-24] MEDS: INSULIN ASPART [NOVOLOG] 3 ML PEN SC SCH ×4 (08:02→20:35)
[2018-08-24] MEDS: FUROSEMIDE 40 MG TAB PO SCH (08:03)
[2018-08-24] MEDS: CHOLECALCIFEROL 1,000 UNIT TAB PO SCH (08:03)
[2018-08-24] MEDS: SUCRALFATE (100 MG/ML) 10ML CUP PO SCH ×3 (08:03→20:35)
--- NOTE | 2018-08-24 09:23 | CONS ---
Assessment/Plan Assessment/Plan Hospital Course (Demo Recall) 63 yo male with ESLD and ESRD with recurrent GI bleeds presented to ER with symptomatic anemia 1. Dysphagia after JACQUE at [facility] 2. Symptomatic anemia, acute on chronic 3. Hematuria per 4. Liver cirrhosis with portal hypertension 5. ESRD 6. 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 Mitral regurgitation s/p mitral valve clipping 8. Obesity PLAN: EGD today. INR 1.02. Platelets 42. PPI BID Pt examined and plan of care discussed with Dr. Arteaga Consultation Date/Type/Reason Admit Date/Time Aug 23, 2018 at 09:16 Initial Consult Date Date/Time of Note DATE: 08/24/18 TIME: 09:17 Exam/Review of Systems Exam Vitals Vital Signs Date Temp Pulse Resp B/P (MAP) Pulse Ox O2 O2 Flow FiO2 Time Delivery Rate 08/24/18 61 08:00 08/24/18 98.7 17 135/79 94 Room Air 08:00 (97) 08/24/18 2.0 00:22 Intake and Output 08/23/18 08/23/18 08/24/18 1515:00 23:00 07:00 IntakeIntake Total 775 ml 820 ml 420 ml OutputOutput Total 0 ml 450 ml BalanceBalance 775 ml 370 ml 420 ml Results Result Diagram: 08/24/18 0440 08/24/18 0440 Results 24hrs Laboratory Tests Test 08/23/18 14:53 08/23/18 14:59 08/23/18 17:52 08/23/18 20:08 Creatine Kinase 172 169 Creatine Kinase 0.8 0.9 Index Creatinine Kinase 1.46 1.50 MB (Mass) Troponin I 0.085 0.093 White Blood Count 4.8 Red Blood Count 2.09 L Hemoglobin 6.5 *L Hematocrit 20.7 L Mean Corpuscular 99.0 Volume Mean Corpuscular 31.1 Hemoglobin Mean Corpuscular 31.4 L Hemoglobin Concen t Red Cell 20.5 H Distribution Width Platelet Count 57 L Mean Platelet 12.7 H Volume Immature 0.800 H Granulocytes % Neutrophils % 69.1 Lymphocytes % 15.4 Monocytes % 8.6 Eosinophils % 5.7 Basophils % 0.4 Nucleated Red 0.0 Blood Cells % Immature 0.040 H Granulocytes # Neutrophils # 3.3 Lymphocytes # 0.7 L Monocytes # 0.4 Eosinophils # 0.3 Basophils # 0.0 Nucleated Red 0.0 Blood Cells # Bedside Glucose 108 Test 08/23/18 21:23 08/24/18 04:40 08/24/18 05:00 08/24/18 07:58 Bedside Glucose 113 160 White Blood Count 4.7 L Red Blood Count 2.52 #L Hemoglobin 7.9 #L Hematocrit 24.3 L Mean Corpuscular 96.4 Volume Mean Corpuscular 31.3 Hemoglobin Mean Corpuscular 32.5 Hemoglobin Concen t Red Cell 19.7 H Distribution Width Platelet Count 42 #L Mean Platelet 10.6 H Volume Immature 0.800 H Granulocytes % Neutrophils % 75.0 Lymphocytes % 11.8 L Monocytes % 6.5 Eosinophils % 5.7 Basophils % 0.2 Nucleated Red 0.0 Blood Cells % Immature 0.040 H Granulocytes # Neutrophils # 3.6 Lymphocytes # 0.6 L Monocytes # 0.3 Eosinophils # 0.3 Basophils # 0.0 Nucleated Red 0.0 Blood Cells # Sodium Level 134 L Potassium Level 3.9 Chloride Level 96 L Carbon Dioxide 31 Level Anion Gap 7 Blood Urea 36 #H Nitrogen Creatinine 3.19 #H Est Glomerular 20 L Filtrat Rate mL/min Glucose Level 191 Calcium Level 8.3 L Phosphorus Level 4.1 Magnesium Level 2.1 Total Bilirubin 2.1 H Direct Bilirubin 0.10 Indirect 2.0 H Bilirubin Aspartate Amino 151 H Transf (AST/SGOT) Alanine 28 Aminotransferase (ALT/SGPT) Alkaline 101 Phosphatase Total Protein 6.7 Albumin 2.9 L Triglycerides 107 Level Cholesterol Level 107 LDL Cholesterol, 54 Calculated HDL Cholesterol 32 Cholesterol/HDL 3.3 Ratio Thyroid 1.070 Stimulating Hormone (TSH) Lab Scanned BLOOD TRANSFUSIO Report N Medications Medication Current Medications Ondansetron HCl (Zofran Inj) 4 mg Q6H PRN IV NAUSEA/VOMITING; Start 08/23/18 at 14:30 Acetaminophen (Tylenol Tab) 650 mg Q6H PRN PO .PAIN 1-3 OR TEMP; Start 08/23/18 at 14:30 Pantoprazole (Protonix Iv) 40 mg DAILY@06 IV Last administered on 08/24/18at 05:48; Admin Dose 40 MG; Start 08/24/18 at 06:00 Cholecalciferol (Vitamin D) 2,000 unit DAILY PO ; Start 08/24/18 at 09:00 Escitalopram Oxalate (Lexapro) 10 mg QHS PO Last administered on 08/23/18at 21:18; Admin Dose 10 MG; Start 08/23/18 at 21:00 Furosemide (Lasix) 40 mg DAILY PO ; Start 08/24/18 at 09:00 Sucralfate (Carafate Susp) 1 gm TID PO Last administered on 08/23/18at 21:18; Admin Dose 1 GM; Start 08/23/18 at 21:00 Diagnostic Test (Pha) (Accu-Chek) 1 ea 02 XX ; Start 08/24/18 at 02:00 Insulin Aspart (Novolog Insulin Pen) NOVOLOG *MILD* ALGORITHM WITH MEALS BEDTIME SC Last administered on 08/24/18at 08:02; Admin Dose 1 UNIT; Start 08/23/18 at 17:35 Miscellaneous Information 1 ea NOTE XX ; Start 08/23/18 at 15:00 Glucose (Glutose) 15 gm Q15M PRN PO DECREASED GLUCOSE; Start 08/23/18 at 15:00 Glucose (Glutose) 22.5 gm Q15M PRN PO DECREASED GLUCOSE; Start 08/23/18 at 15:00 Dextrose (D50w Syringe) 25 ml Q15M PRN IV DECREASED GLUCOSE; Start 08/23/18 at 15:00 Dextrose (D50w Syringe) 50 ml Q15M PRN IV DECREASED GLUCOSE; Start 08/23/18 at 15:00 Glucagon (Glucagen) 1 mg Q15M PRN IM DECREASED GLUCOSE; Start 08/23/18 at 15:00 Glucose (Glutose) 15 gm Q15M PRN BUCCAL DECREASED GLUCOSE; Start 08/23/18 at 15:00 Dextrose/Sodium Chloride 1,000 ml @ 60 mls/hr [id number] IV Last administered on 08/23/18at 21:21; Admin Dose 60 MLS/HR; Start 08/23/18 at 20:30 Tramadol HCl (Ultram) 50 mg Q6H PRN PO MODERATE PAIN LEVEL 4-6 Last administered on 08/23/18at 21:18; Admin Dose 50 MG; Start 08/23/18 at 21:00 Morphine Sulfate (morphine) 2 mg Q4H PRN IV SEVERE PAIN LEVEL 7-10 Last administered on 08/24/18at 04:46; Admin Dose 2 MG; Start 08/23/18 at 21:00 URSULA DANIEL Aug 24, 2018 09:23
--- NOTE | 2018-08-24 09:40 | CONS ---
Assessment/Plan Assessment/Plan Hospital Course (Demo Recall) 1. End-stage renal disease on maintenance hemodialysis. He was dialyzed yesterday and received 2 units of blood. I anticipate dialyzing him tomorrow. 2. Anemia due to probable GI bleeding and chronic kidney disease. He is to undergo an EGD today. I will start him on Epogen 3 Cirrhosis of the liver 4 History of mitral valve regurgitation status post mitral valve clipping 5. Hypertension 6. Type 2 diabetes mellitus Consultation Date/Type/Reason Admit Date/Time Aug 23, 2018 at 09:16 Initial Consult Date Type of Consult Nephrology Date/Time of Note DATE: 08/24/18 TIME: 09:33 24 HR Interval Summary Free Text/Dictation This patient is being seen in the intensive care unit for nephrologic evaluation. The patient is lethargic but does arouse easily to verbal stimuli. He is complaining of a left-sided headache which she has had. Exam/Review of Systems Exam Vitals Vital Signs Date Temp Pulse Resp B/P (MAP) Pulse Ox O2 O2 Flow FiO2 Time Delivery Rate 08/24/18 61 08:00 08/24/18 98.7 17 135/79 94 Room Air 08:00 (97) 08/24/18 2.0 00:22 Intake and Output 08/23/18 08/23/18 08/24/18 1515:00 23:00 07:00 IntakeIntake Total 775 ml 820 ml 420 ml OutputOutput Total 0 ml 450 ml BalanceBalance 775 ml 370 ml 420 ml Constitutional: alert, oriented, frail, obese Neck: supple Respiratory: clear to auscultation Cardiovascular: regular rate and rhythm, edema Gastrointestinal: soft, non-tender Extremities: edema Results Result Diagram: 08/24/1843908/24/18439 Results 24hrs Laboratory Tests Test 08/23/18 14:53 08/23/18 14:59 08/23/18 17:52 08/23/18 20:08 Creatine Kinase 172 169 Creatine Kinase 0.8 0.9 Index Creatinine Kinase 1.46 1.50 MB (Mass) Troponin I 0.085 0.093 White Blood Count 4.8 Red Blood Count 2.09 L Hemoglobin 6.5 *L Hematocrit 20.7 L Mean Corpuscular 99.0 Volume Mean Corpuscular 31.1 Hemoglobin Mean Corpuscular 31.4 L Hemoglobin Concen t Red Cell 20.5 H Distribution Width Platelet Count 57 L Mean Platelet 12.7 H Volume Immature 0.800 H Granulocytes % Neutrophils % 69.1 Lymphocytes % 15.4 Monocytes % 8.6 Eosinophils % 5.7 Basophils % 0.4 Nucleated Red 0.0 Blood Cells % Immature 0.040 H Granulocytes # Neutrophils # 3.3 Lymphocytes # 0.7 L Monocytes # 0.4 Eosinophils # 0.3 Basophils # 0.0 Nucleated Red 0.0 Blood Cells # Bedside Glucose 108 Test 08/23/18 21:23 08/24/18 04:40 08/24/18 05:00 08/24/18 07:58 Bedside Glucose 113 160 White Blood Count 4.7 L Red Blood Count 2.52 #L Hemoglobin 7.9 #L Hematocrit 24.3 L Mean Corpuscular 96.4 Volume Mean Corpuscular 31.3 Hemoglobin Mean Corpuscular 32.5 Hemoglobin Concen t Red Cell 19.7 H Distribution Width Platelet Count 42 #L Mean Platelet 10.6 H Volume Immature 0.800 H Granulocytes % Neutrophils % 75.0 Lymphocytes % 11.8 L Monocytes % 6.5 Eosinophils % 5.7 Basophils % 0.2 Nucleated Red 0.0 Blood Cells % Immature 0.040 H Granulocytes # Neutrophils # 3.6 Lymphocytes # 0.6 L Monocytes # 0.3 Eosinophils # 0.3 Basophils # 0.0 Nucleated Red 0.0 Blood Cells # Sodium Level 134 L Potassium Level 3.9 Chloride Level 96 L Carbon Dioxide 31 Level Anion Gap 7 Blood Urea 36 #H Nitrogen Creatinine 3.19 #H Est Glomerular 20 L Filtrat Rate mL/min Glucose Level 191 Calcium Level 8.3 L Phosphorus Level 4.1 Magnesium Level 2.1 Total Bilirubin 2.1 H Direct Bilirubin 0.10 Indirect 2.0 H Bilirubin Aspartate Amino 151 H Transf (AST/SGOT) Alanine 28 Aminotransferase (ALT/SGPT) Alkaline 101 Phosphatase Total Protein 6.7 Albumin 2.9 L Triglycerides 107 Level Cholesterol Level 107 LDL Cholesterol, 54 Calculated HDL Cholesterol 32 Cholesterol/HDL 3.3 Ratio Thyroid 1.070 Stimulating Hormone (TSH) Lab Scanned BLOOD TRANSFUSIO Report N Medications Medication Current Medications Ondansetron HCl (Zofran Inj) 4 mg Q6H PRN IV NAUSEA/VOMITING; Start 08/23/18 at 14:30 Acetaminophen (Tylenol Tab) 650 mg Q6H PRN PO .PAIN 1-3 OR TEMP; Start 08/23/18 at 14:30 Cholecalciferol (Vitamin D) 2,000 unit DAILY PO ; Start 08/24/18 at 09:00 Escitalopram Oxalate (Lexapro) 10 mg QHS PO Last administered on 08/23/18at 21:18; Admin Dose 10 MG; Start 08/23/18 at 21:00 Furosemide (Lasix) 40 mg DAILY PO ; Start 08/24/18 at 09:00 Sucralfate (Carafate Susp) 1 gm TID PO Last administered on 08/23/18at 21:18; Admin Dose 1 GM; Start 08/23/18 at 21:00 Diagnostic Test (Pha) (Accu-Chek) 1 ea 02 XX ; Start 08/24/18 at 02:00 Insulin Aspart (Novolog Insulin Pen) NOVOLOG *MILD* ALGORITHM WITH MEALS BEDTIME SC Last administered on 08/24/18at 08:02; Admin Dose 1 UNIT; Start 08/23/18 at 17:35 Miscellaneous Information 1 ea NOTE XX ; Start 08/23/18 at 15:00 Glucose (Glutose) 15 gm Q15M PRN PO DECREASED GLUCOSE; Start 08/23/18 at 15:00 Glucose (Glutose) 22.5 gm Q15M PRN PO DECREASED GLUCOSE; Start 08/23/18 at 15:00 Dextrose (D50w Syringe) 25 ml Q15M PRN IV DECREASED GLUCOSE; Start 08/23/18 at 15:00 Dextrose (D50w Syringe) 50 ml Q15M PRN IV DECREASED GLUCOSE; Start 08/23/18 at 15:00 Glucagon (Glucagen) 1 mg Q15M PRN IM DECREASED GLUCOSE; Start 08/23/18 at 15:00 Glucose (Glutose) 15 gm Q15M PRN BUCCAL DECREASED GLUCOSE; Start 08/23/18 at 15:00 Dextrose/Sodium Chloride 1,000 ml @ 60 mls/hr [id number] IV Last administered on 08/23/18at 21:21; Admin Dose 60 MLS/HR; Start 08/23/18 at 20:30 Tramadol HCl (Ultram) 50 mg Q6H PRN PO MODERATE PAIN LEVEL 4-6 Last administered on 08/23/18at 21:18; Admin Dose 50 MG; Start 08/23/18 at 21:00 Morphine Sulfate (morphine) 2 mg Q4H PRN IV SEVERE PAIN LEVEL 7-10 Last administered on 08/24/18at 09:25; Admin Dose 2 MG; Start 08/23/18 at 21:00 Pantoprazole (Protonix Iv) 40 mg BID IV ; Start 08/24/18 at 21:00 ANA MELENDEZ MD Aug 24, 2018 09:40
--- NOTE | 2018-08-24 11:18 | PREAC ---
Date/Time of Note Date/Time of Note DATE: 08/24/18 TIME: 11:16 Anesthesia Eval and Record Evaluation Time Pre-Procedure Interview DATE: 08/24/18 TIME: 11:16 Age 63 Sex male NPO: 8 hrs Preoperative diagnosis dysphagia Planned procedure EGD Past Medical History Past Medical History: Includes Cardio: Other (Mitral valve clipping) Endo: Diabetes Renal: ESRD on dialysis, HD last: (yesterday) Hepatic: Hepatitis (C), Cirrhosis GI: Obesity Surgery & Anesthesia Issues No known issue Meds Anticoagulation: No Beta Matilda within 24 hr: No Reason Beta Matilda not given: Pt. not on B-Matilda Reported Medications Cholecalciferol* (Vitamin D3*) 1,000 Unit Tablet, 2000 UNIT PO DAILY, TAB 08/23/18 Sucralfate* (Carafate*) 1 Gm/10 Ml Susp, 1 GM PO TID, EA 08/23/18 Insulin Glargine* (Lantus*) 100 Unit/Ml Soln, 30 UNIT SC QHS, #1 VIAL 11/23/17 Furosemide* (Furosemide*) 40 Mg Tablet, 40 MG PO DAILY, TAB 11/23/17 Pantoprazole* (Protonix*) 40 Mg Tablet.dr, 40 MG PO BID, TAB 10/26/17 Escitalopram Oxalate* (Lexapro*) 10 Mg Tablet, 10 MG PO QHS, TAB 10/26/17 Propranolol Hcl* (Propranolol Hcl*) 10 Mg Tablet, 10 MG PO BID, TAB 10/26/17 Lactulose* (Lactulose*) 20 Gm/30 Ml Solution, 20 GM PO QHS, ML 10/26/17 Simvastatin* (Zocor*) 20 Mg Tablet, 20 MG PO QHS, TAB 10/26/17 Current Medications Ondansetron HCl (Zofran Inj) 4 mg Q6H PRN IV NAUSEA/VOMITING; Start 08/23/18 at 14:30 Acetaminophen (Tylenol Tab) 650 mg Q6H PRN PO .PAIN 1-3 OR TEMP; Start 08/23/18 at 14:30 Cholecalciferol (Vitamin D) 2,000 unit DAILY PO ; Start 08/24/18 at 09:00 Escitalopram Oxalate (Lexapro) 10 mg QHS PO Last administered on 08/23/18at 21:18; Admin Dose 10 MG; Start 08/23/18 at 21:00 Furosemide (Lasix) 40 mg DAILY PO ; Start 08/24/18 at 09:00 Sucralfate (Carafate Susp) 1 gm TID PO Last administered on 08/23/18at 21:18; Admin Dose 1 GM; Start 08/23/18 at 21:00 Diagnostic Test (Pha) (Accu-Chek) 1 ea 02 XX ; Start 08/24/18 at 02:00 Insulin Aspart (Novolog Insulin Pen) NOVOLOG *MILD* ALGORITHM WITH MEALS BEDTIME SC Last administered on 08/24/18at 08:02; Admin Dose 1 UNIT; Start 08/23/18 at 17:35 Miscellaneous Information 1 ea NOTE XX ; Start 08/23/18 at 15:00 Glucose (Glutose) 15 gm Q15M PRN PO DECREASED GLUCOSE; Start 08/23/18 at 15:00 Glucose (Glutose) 22.5 gm Q15M PRN PO DECREASED GLUCOSE; Start 08/23/18 at 15:00 Dextrose (D50w Syringe) 25 ml Q15M PRN IV DECREASED GLUCOSE; Start 08/23/18 at 15:00 Dextrose (D50w Syringe) 50 ml Q15M PRN IV DECREASED GLUCOSE; Start 08/23/18 at 15:00 Glucagon (Glucagen) 1 mg Q15M PRN IM DECREASED GLUCOSE; Start 08/23/18 at 15:00 Glucose (Glutose) 15 gm Q15M PRN BUCCAL DECREASED GLUCOSE; Start 08/23/18 at 15:00 Dextrose/Sodium Chloride 1,000 ml @ 60 mls/hr [id number] IV Last administered on 08/23/18at 21:21; Admin Dose 60 MLS/HR; Start 08/23/18 at 20:30 Tramadol HCl (Ultram) 50 mg Q6H PRN PO MODERATE PAIN LEVEL 4-6 Last admi nistered on 08/23/18at 21:18; Admin Dose 50 MG; Start 08/23/18 at 21:00 Morphine Sulfate (morphine) 2 mg Q4H PRN IV SEVERE PAIN LEVEL 7-10 Last administered on 08/24/18at 09:25; Admin Dose 2 MG; Start 08/23/18 at 21:00 Pantoprazole (Protonix Iv) 40 mg BID IV ; Start 08/24/18 at 21:00 Epoetin Sean (Epogen (Esrd)) 10,000 units TuThSa@17 SC ; Start 08/24/18 at 17:00 Meds reviewed: Yes Allergies Coded Allergies: ceftriaxone (Unverified Allergy, Intermediate, RASH, 08/23/18) per Mess notes 02/02/17 - rash with rocephin Allergies Reviewed: Yes Labs/Studies Labs Reviewed: Reviewed by anesthesiologist Result Diagram: 08/24/18 1012 08/24/18 0440 Laboratory Tests 08/24/18 04:40 08/24/18 10:12 test: N/A Studies: ECG (SB), CXR (Mild cardiomegally) Pre-procedure Exam Last vitals Vital Signs Date Temp Pulse Resp B/P (MAP) Pulse Ox O2 O2 Flow FiO2 Time Delivery Rate 08/24/18 61 08:00 08/24/18 98.7 17 135/79 94 Room Air 08:00 (97) 08/24/18 2.0 00:22 Airway: Adequate mouth opening Mallampati: Mallampati I Teeth: Normal Lung: Normal Heart: Normal ASA Physical Status ASA physical status: 3 Emergency: None Planned Anesthetic General/MAC: MAC Planned Pain Management Parenteral pain med Pre-operative Attestations Prior to commencing anesthesia and surgery, the patient was re-evaluated, there was verification of: *The patient's identity *The results of appropriate recent lab work and preoperative vital signs *The above evaluation not changing prior to induction *Anesthetic plan, risk benefits, alternative and complications discussed with patient/family; questions answered; patient/family understands, accepts and wishes to proceed. VERONICA PRESTON MD Aug 24, 2018 11:18
[2018-08-24] MEDS ORDERED: FENTAnyl 50 MCG/ML VIAL ONE (11:20)
[2018-08-24] MEDS ORDERED: PROPOFOL 20 ML ONE (11:20)
[2018-08-24] MEDS ORDERED: ONDANSETRON 4 MG INJ IV PRN (11:30)
[2018-08-24] MEDS: DEXTROSE 5%-0.45% NACL 1,000 ML IV SCH (13:12)
--- NOTE | 2018-08-24 15:25 | CONS ---
Assessment/Plan Assessment/Plan Assessment/Plan (Daily) ASSESSMENT: # Chest painatypical GI in etiology. Has ruled out # Profound dysphagia worsening over the last month. s/p EGD results not available. # Chronic renal failure on dialysis. # Status post mitral valve clipping 07/31 at [facility]. Prior angiogram 06/28 no coronary disease. Echo shows mild MR. # Profound anemia and thrombocytopenia. 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 # Depression. PLAN: >> follow H/H >> echo reviewed >> continue on current meds >> resume aspirin when able to from GI standpoint. >> will see as needed Consultation Date/Type/Reason Admit Date/Time Aug 23, 2018 at 09:16 Initial Consult Date Type of Consult Cardiology Date/Time of Note DATE: 08/24/18 TIME: 15:24 24 HR Interval Summary Free Text/Dictation No significant CP today. Pt underwent EGD. Exam/Review of Systems Vital Signs Vitals Vital Signs Date Temp Pulse Resp B/P (MAP) Pulse Ox O2 O2 Flow FiO2 Time Delivery Rate 08/24/18 98.5 61 14 125/70 98 Room Air 12:00 (88) 08/24/18 10 11:00 Intake and Output 08/23/18 08/23/18 08/24/18 1515:00 23:00 07:00 IntakeIntake Total 775 ml 820 ml 480 ml OutputOutput Total 0 ml 450 ml 0 ml BalanceBalance 775 ml 370 ml 480 ml Exam Constitutional: alert, oriented, well developed Psych: no complaints, nl mood/affect Head: normocephalic, atraumatic Eyes: nl conjunctiva ENMT: nl external ears & nose, nl nasal mucosa & septum Neck: supple; No jvd Respiratory: clear to auscultation Cardiovascular: regular rate and rhythm, systolic murmur (mild HSM at apex) Gastrointestinal: soft, nl liver, spleen 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: CADDIE II-XII intact Labs Result Diagram: 08/24/18 1012 08/24/18 0440 Results 24hrs Laboratory Tests Test 08/23/18 17:52 08/23/18 20:08 08/23/18 21:23 08/24/18 04:40 Bedside Glucose 108 113 Creatine Kinase 169 Creatine Kinase 0.9 Index Creatinine Kinase 1.50 MB (Mass) Troponin I 0.093 White Blood Count 4.7 L Red Blood Count 2.52 #L Hemoglobin 7.9 #L Hematocrit 24.3 L Mean Corpuscular 96.4 Volume Mean Corpuscular 31.3 Hemoglobin Mean Corpuscular 32.5 Hemoglobin Concen t Red Cell 19.7 H Distribution Width Platelet Count 42 #L Mean Platelet 10.6 H Volume Immature 0.800 H Granulocytes % Neutrophils % 75.0 Lymphocytes % 11.8 L Monocytes % 6.5 Eosinophils % 5.7 Basophils % 0.2 Nucleated Red 0.0 Blood Cells % Immature 0.040 H Granulocytes # Neutrophils # 3.6 Lymphocytes # 0.6 L Monocytes # 0.3 Eosinophils # 0.3 Basophils # 0.0 Nucleated Red 0.0 Blood Cells # Sodium Level 134 L Potassium Level 3.9 Chloride Level 96 L Carbon Dioxide 31 Level Anion Gap 7 Blood Urea 36 #H Nitrogen Creatinine 3.19 #H Est Glomerular 20 L Filtrat Rate mL/min Glucose Level 191 Calcium Level 8.3 L Phosphorus Level 4.1 Magnesium Level 2.1 Total Bilirubin 2.1 H Direct Bilirubin 0.10 Indirect 2.0 H Bilirubin Aspartate Amino 151 H Transf (AST/SGOT) Alanine 28 Aminotransferase (ALT/SGPT) Alkaline 101 Phosphatase Total Protein 6.7 Albumin 2.9 L Triglycerides 107 Level Cholesterol Level 107 LDL Cholesterol, 54 Calculated HDL Cholesterol 32 Cholesterol/HDL 3.3 Ratio Thyroid 1.070 Stimulating Hormone (TSH) Test 08/24/18 05:00 08/24/18 07:58 08/24/18 10:12 08/24/18 10:15 Lab Scanned BLOOD TRANSFUSIO Report N Bedside Glucose 160 Hemoglobin 8.0 L Hematocrit 24.9 L Phosphorus Level 4.6 Ammonia 40 #H Test 08/24/18 11:59 Bedside Glucose 110 Medications Medications Current Medications Ondansetron HCl (Zofran Inj) 4 mg Q6H PRN IV NAUSEA/VOMITING; Start 08/23/18 at 14:30 Acetaminophen (Tylenol Tab) 650 mg Q6H PRN PO .PAIN 1-3 OR TEMP; Start 08/23/18 at 14:30 Cholecalciferol (Vitamin D) 2,000 unit DAILY PO ; Start 08/24/18 at 09:00 Escitalopram Oxalate (Lexapro) 10 mg QHS PO Last administered on 08/23/18at 21:18; Admin Dose 10 MG; Start 08/23/18 at 21:00 Furosemide (Lasix) 40 mg DAILY PO ; Start 08/24/18 at 09:00 Sucralfate (Carafate Susp) 1 gm TID PO Last administered on 08/24/18at 13:11; Admin Dose 1 GM; Start 08/23/18 at 21:00 Diagnostic Test (Pha) (Accu-Chek) 1 ea 02 XX ; Start 08/24/18 at 02:00 Insulin Aspart (Novolog Insulin Pen) NOVOLOG *MILD* ALGORITHM WITH MEALS BEDTIME SC Last administered on 08/24/18at 08:02; Admin Dose 1 UNIT; Start 08/23/18 at 17:35 Miscellaneous Information 1 ea NOTE XX ; Start 08/23/18 at 15:00 Glucose (Glutose) 15 gm Q15M PRN PO DECREASED GLUCOSE; Start 08/23/18 at 15:00 Glucose (Glutose) 22.5 gm Q15M PRN PO DECREASED GLUCOSE; Start 08/23/18 at 15:00 Dextrose (D50w Syringe) 25 ml Q15M PRN IV DECREASED GLUCOSE; Start 08/23/18 at 15:00 Dextrose (D50w Syringe) 50 ml Q15M PRN IV DECREASED GLUCOSE; Start 08/23/18 at 15:00 Glucagon (Glucagen) 1 mg Q15M PRN IM DECREASED GLUCOSE; Start 08/23/18 at 15:00 Glucose (Glutose) 15 gm Q15M PRN BUCCAL DECREASED GLUCOSE; Start 08/23/18 at 15:00 Dextrose/Sodium Chloride 1,000 ml @ 60 mls/hr [id number] IV Last administered on 08/24/18at 13:12; Admin Dose 60 MLS/HR; Start 08/23/18 at 20:30 Tramadol HCl (Ultram) 50 mg Q6H PRN PO MODERATE PAIN LEVEL 4-6 Last administered on 08/23/18at 21:18; Admin Dose 50 MG; Start 08/23/18 at 21:00 Morphine Sulfate (morphine) 2 mg Q4H PRN IV SEVERE PAIN LEVEL 7-10 Last administered on 08/24/18at 09:25; Admin Dose 2 MG; Start 08/23/18 at 21:00 Pantoprazole (Protonix Iv) 40 mg BID IV ; Start 08/24/18 at 21:00 Epoetin Sean (Epogen (Esrd)) 10,000 units TuThSa@17 SC ; Start 08/24/18 at 17:00 Ondansetron HCl (Zofran Inj) 4 mg PACU ORDER PRN IV NAUSEA/VOMITING; Start 08/24/18 at 11:30; Stop 08/24/18 at 18:00 SUMIT CHAN MD Aug 24, 2018 15:25
--- NOTE | 2018-08-24 15:49 | RADRPT ---
Echocardiogram Report Patient Name: CYNTHIA STEINERPatient ID: [id number] : 1955 (63y 4m)Study Date: 08/24/2018 8:00:44 AM Gender: MAccession #: [id number] Tech: Elias Espino [facility] Location: [facility] Ref.Physician: MARBIN WOLFE Height(Cm): BSA: Weight(Kg): Quality: GoodAccount #: Procedures: Echocardiographic Report: Transthoracic echocardiogram with complete 2D, M-Mode, and doppler examination. Indications: s/p mitral clipping. Measurements: 2D/M Mode Doppler Measurement Value Normal Range Measurement Value Normal Range LVIDd 2D 6.5 [ 4.2 - 5.8 ] cm AV Peak Alonso 1.7 [ 100.0 - 170.0 ] cm/sec LVIDs 2D 4.4 [ 2.5 - 4.0 ] cm AV Peak PG 12.0 [ 2.0 - 9.0 ] mmHg LVPWd 2D 1.3 [ 0.6 - 1.0 ] cm AI Peak PG 45.0 mmHg IVSd 2D 1.4 [ 0.6 - 1.0 ] cm AI Peak Alonso 3.3 cm/sec AoR Diam 2D 3.5 [ 2.6 - 3.4 ] cm AI PHT 681.0 msec EDV 2D 217.0 [ 62.0 - 150.0 ] ml LVOT Peak Alonso 1.1 [ 70.0 - 110.0 ] cm/sec ESV 2D 89.1 [ 21.0 - 61.0 ] ml LVOT Peak PG 5.0 [ 2.0 - 6.0 ] mmHg EF 2D 58.9 [ 52.0 - 72.0 ] percent MV E Peak Alonso 1.3 [ 60.0 - 130.0 ] cm/sec LA Dimen 2D 4.8 [ 3.0 - 4.0 ] cm MV A Peak Alonso 0.9 [ 100.0 - 120.0 ] cm/sec MV E/A 1.4 [ 0.8 - 1.5 ] ratio MV Peak Alonso 1.6 [ 60.0 - 130.0 ] cm/sec MV Peak PG 10.0 [ 1.0 - 10.0 ] mmHg MV Mean Alonso 0.9 cm/sec MV Mean PG 4.0 mmHg MV Decel Time 275 [ 104 - 258 ] msec Lat E` Alonso 0.1 [ 10.0 - 15.0 ] cm/sec Lateral E/E` 15.4 [ 1.0 - 2.0 ] ratio MV E/A 1.4 [ 0.8 - 1.5 ] ratio MV VTI 46.7 cm Findings: Left Ventricle: Normal left ventricular systolic function. Moderate concentric left ventricular hypertrophy. Moderate enlargement of left ventricle cavity. Ejection fraction is visually estimated at 50-55 %. Right Ventricle: Normal right ventricular size. Normal right ventricular systolic function. Left Atrium: There is moderate enlargement of left atrium. Right Atrium: There is moderate enlargement of right atrium. Mitral Valve: Mitral valve leaflets appear mildly thickened. Mild mitral annular calcification. Trace mitral regurgitation. Aortic Valve: No hemodynamically significant aortic stenosis by doppler. Aortic cusps appear mildly calcified. Mild aortic valve regurgitation. Tricuspid Valve: Normal appearance and function of the tricuspid valve with trace physiologic regurgitation. Normal right ventricular systolic pressure. Pulmonic Valve: Normal pulmonic valve appearance. Pericardium: Normal pericardium with no significant pericardial effusion. Aorta: Normal aortic root. IVC: Normal size and normal respiratory collapse consistent with normal right atrial pressure. Conclusions: Normal LV size and function. EF 55%. Mitral valve increased calcification likely secondary to history of clipping procedure. Mild MR. Aortic sclerosis with mild aortic regurgitation. Biatrial enlargement. Electronically Signed By: Goran Storey 2018-08-24 15:48:40 PST
[2018-08-24] MEDS: EPOETIN 10000 UNITS/1 ML INJ (ESRD) SC SCH (17:25)
[2018-08-24] MEDS: PANTOPRAZOLE 40 MG INJ IV SCH (20:35)
[2018-08-24] MEDS: ESCITALOPRAM 10 MG TAB PO SCH (20:36)
[2018-08-25] VITALS (25 sets, daily range): BP systolic 109–161; BP diastolic 60–89; PULSE 63–76; RESP 17–19
--- NOTE | 2018-08-25 06:27 | PN ---
DATE: 08/24/2018 SUBJECTIVE: Patient is more awake, responsive, had complaints of mild diffuse headache. Denies any focal weakness or numbness. PHYSICAL EXAMINATION GENERAL: The patient is awake, alert. VITAL SIGNS: Temperature 98.7, no other signs of meningismus or meningeal signs. HEENT: Tongue is moist. NECK: Supple. CHEST: Clinically clear. HEART: S1, S2 with no definite gallops. ABDOMEN: Soft, obese, nontender. No epigastric tenderness. EXTREMITIES: No edema. No masses or megaly. LABORATORY DATA: WBC count 8.0, hematocrit 24.9, platelet count of 42,000 this morning. Potassium 3 .0. Blood glucose levels normal glycemic range. IMPRESSION: 1. Severe anemia secondary to probable GI bleeding and chronic kidney disease. 2. End-stage renal disease on maintenance hemodialysis, dialyzed yesterday. 3. Cirrhosis, portal hypertension. 4. 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 5. Status post mitral valve clipping. 6. Mitral regurgitation. 7. Diabetes mellitus type 2, well controlled. 8. Hypertension. PLAN: We will continue monitoring for any signs of bleeding. If headache persists, we will consider getting a CT of the brain. Replace blood losses. GI recommendations per Dr. Arteaga. Patient is du e for endoscopy today. Dictated By: JENY MORA MD SR/NTS Conf#: [id number] DID#: [id number] CC: JENY MORA MD;*EndCC*
--- NOTE | 2018-08-25 07:33 | CONS ---
Assessment/Plan Assessment/Plan Hospital Course (Demo Recall) 63 yo male with ESLD and ESRD with recurrent GI bleeds presented to ER with symptomatic anemia 1. Dysphagia after JACQUE at [facility] -Improved 2. Symptomatic anemia, acute on chronic -stable 3. Hematuria per -resolved 4. Liver cirrhosis with portal hypertension and slightly elevated ammonia 5. ESRD 6. 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 Mitral regurgitation s/p mitral valve clipping 8. Obesity 9. 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 Pancytopenia 11. Persistent Headache with intermittent epistaxis x 2weeks PLAN: Consider head CT for persistent headache x 2 weeks with intermittent epistaxis Lactulose 20 mg QD (usual dose at home) Continue with PPI BID [facility] and for acute GI bleeding Pain management Pt examined and plan of care discussed with Dr. Arteaga Consultation Date/Type/Reason Admit Date/Time Aug 23, 2018 at 09:16 Initial Consult Date Date/Time of Note DATE: 08/25/18 TIME: 07:29 24 HR Interval Summary Free Text/Dictation Feels better over all. NO bm since Thursday morning. No N/V. C/O flatuence. C/O headache x 2 weeks which is only alleviated with morphine for 15 minutes. The pain is all over the head. He does state he has been having problems with eyes and had an appt scheduled this week with [employer] assistant. He also states he has intermittently small amounts of blood on tissue from his nose. Exam/Review of Systems Exam Vitals Vital Signs Date Temp Pulse Resp B/P (MAP) Pulse Ox O2 O2 Flow FiO2 Time Delivery Rate 08/25/18 98.1 63 19 148/65 92 07:23 (92) 08/25/18 Room Air 04:00 08/24/18 10 11:00 Intake and Output 08/24/18 08/24/18 08/25/18 1515:00 23:00 07:00 IntakeIntake Total 774 ml 540 ml 100 ml OutputOutput Total 0 ml 0 ml 250 ml BalanceBalance 774 ml 540 ml -150 ml Constitutional: alert, oriented Psych: no complaints Head: normocephalic Eyes: PERRL, icteric Gastrointestinal: non-tender, distended Musculoskeletal: nl gait and stance 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: nl mental status Results Result Diagram: 08/25/18 0516 08/25/18 0516 Results 24hrs Laboratory Tests Test 08/24/18 07:58 08/24/18 10:12 08/24/18 10:15 08/24/18 11:59 Bedside Glucose 160 110 Hemoglobin 8.0 L Hematocrit 24.9 L Phosphorus Level 4.6 Ammonia 40 #H Test 08/24/18 17:23 08/24/18 18:06 08/24/18 20:35 08/25/18 00:28 Bedside Glucose 148 152 Hemoglobin 8.7 L 7.9 L Hematocrit 26.8 L 25.0 L Test 08/25/18 05:16 White Blood Count 3.8 L Red Blood Count 2.62 L Hemoglobin 8.1 L Hematocrit 25.2 L Mean Corpuscular 96.2 Volume Mean Corpuscular 30.9 Hemoglobin Mean Corpuscular 32.1 Hemoglobin Concent Red Cell 19.4 H Distribution Width Platelet Count 44 L Mean Platelet Volume 10.8 H Immature 0.800 H Granulocytes % Neutrophils % 64.7 Lymphocytes % 16.1 Monocytes % 10.8 Eosinophils % 7.1 H Basophils % 0.5 Nucleated Red Blood 0.0 Cells % Immature 0.030 Granulocytes # Neutrophils # 2.5 Lymphocytes # 0.6 L Monocytes # 0.4 Eosinophils # 0.3 Basophils # 0.0 Nucleated Red Blood 0.0 Cells # Sodium Level 134 L Potassium Level 4.0 Chloride Level 97 Carbon Dioxide Level 31 Anion Gap 6 Blood Urea Nitrogen 50 H Creatinine 3.91 H Est Glomerular 16 L Filtrat Rate mL/min Glucose Level 130 # Calcium Level 8.1 L Magnesium Level 2.2 Total Bilirubin 2.0 H Direct Bilirubin 0.00 Indirect Bilirubin 2.0 H Aspartate Amino 155 H Transf (AST/SGOT) Alanine 33 Aminotransferase (AL T/SGPT) Alkaline Phosphatase 113 Total Protein 6.8 Albumin 3.1 L Globulin 3.70 H Albumin/Globulin 0.83 Ratio Medications Medication Current Medications Ondansetron HCl (Zofran Inj) 4 mg Q6H PRN IV NAUSEA/VOMITING; Start 08/23/18 at 14:30 Acetaminophen (Tylenol Tab) 650 mg Q6H PRN PO .PAIN 1-3 OR TEMP; Start 08/23/18 at 14:30 Cholecalciferol (Vitamin D) 2,000 unit DAILY PO ; Start 08/24/18 at 09:00 Escitalopram Oxalate (Lexapro) 10 mg QHS PO Last administered on 08/24/18at 20 :36; Admin Dose 10 MG; Start 08/23/18 at 21:00 Furosemide (Lasix) 40 mg DAILY PO ; Start 08/24/18 at 09:00 Sucralfate (Carafate Susp) 1 gm TID PO Last administered on 08/24/18at 20:35; Admin Dose 1 GM; Start 08/23/18 at 21:00 Diagnostic Test (Pha) (Accu-Chek) 1 ea 02 XX ; Start 08/24/18 at 02:00 Insulin Aspart (Novolog Insulin Pen) NOVOLOG *MILD* ALGORITHM WITH MEALS BEDTIME SC Last administered on 08/24/18 17:27; Admin Dose 1 UNIT; Start 08/23/18 at 17:35 Miscellaneous Information 1 ea NOTE XX ; Start 08/23/18 at 15:00 Glucose (Glutose) 15 gm Q15M PRN PO DECREASED GLUCOSE; Start 08/23/18 at 15:00 Glucose (Glutose) 22.5 gm Q15M PRN PO DECREASED GLUCOSE; Start 08/23/18 at 15:00 Dextrose (D50w Syringe) 25 ml Q15M PRN IV DECREASED GLUCOSE; Start 08/23/18 at 15:00 Dextrose (D50w Syringe) 50 ml Q15M PRN IV DECREASED GLUCOSE; Start 08/23/18 at 15:00 Glucagon (Glucagen) 1 mg Q15M PRN IM DECREASED GLUCOSE; Start 08/23/18 at 15:00 Glucose (Glutose) 15 gm Q15M PRN BUCCAL DECREASED GLUCOSE; Start 08/23/18 at 15:00 Tramadol HCl (Ultram) 50 mg Q6H PRN PO MODERATE PAIN LEVEL 4-6 Last adm inistered on 08/23/18at 21:18; Admin Dose 50 MG; Start 08/23/18 at 21:00 Morphine Sulfate (morphine) 2 mg Q4H PRN IV SEVERE PAIN LEVEL 7-10 Last administered on 08/24/18 23:41; Admin Dose 2 MG; Start 08/23/18 at 21:00 Pantoprazole (Protonix Iv) 40 mg BID IV Last administered on 08/24/18at 20:35; Admin Dose 40 MG; Start 08/24/18 at 21:00 Epoetin Sean (Epogen (Esrd)) 10,000 units TuThSa@17 SC Last administered on 08/24/18at 17:25; Admin Dose 10,000 UNITS; Start 08/24/18 at 17:00 URSULA DANIEL Aug 25, 2018 07:33
[2018-08-25] MEDS: CHOLECALCIFEROL 1,000 UNIT TAB PO SCH (08:07)
[2018-08-25] MEDS: SUCRALFATE (100 MG/ML) 10ML CUP PO SCH ×3 (08:08→20:53)
[2018-08-25] MEDS: PANTOPRAZOLE 40 MG INJ IV SCH ×2 (08:08→20:53)
[2018-08-25] MEDS: FUROSEMIDE 40 MG TAB PO SCH (08:08)
[2018-08-25] MEDS: INSULIN ASPART [NOVOLOG] 3 ML PEN SC SCH ×4 (08:25→20:56)
--- NOTE | 2018-08-25 08:35 | PAC ---
Date/Time of Note Date/Time of Note DATE: 08/25/18 TIME: 08:34 Post-Anesthesia Notes Post-Anesthesia Note Last documented vital signs Vital Signs Date Temp Pulse Resp B/P (MAP) Pulse Ox O2 O2 Flow FiO2 Time Delivery Rate 08/25/18 63 08:12 08/25/18 98.1 68 19 148/65 92 07:23 (92) 08/25/18 Room Air 04:00 08/24/18 10 11:00 Activity: WNL Respiratory function: WNL Cardiovascular function: WNL Mental status: Baseline Pain reasonably controlled: Yes Hydration appropriate: Yes Nausea/Vomiting absent: No VERONICA PRESTON MD Aug 25, 2018 08:35
--- NOTE | 2018-08-25 09:40 | CONS ---
Assessment/Plan Assessment/Plan Hospital Course (Demo Recall) 1. End-stage renal disease on maintenance hemodialysis. He was dialyzed 2 days ago and received 2 units of blood. I have ordered hemodialysis for today. 2. Anemia due to probable GI bleeding and chronic kidney disease. He underwent an EGD yesterday. Report of EGD not yet available.. I will start him on Epogen . His H&H has been stable. 3 Cirrhosis of the liver 4 History of mitral valve regurgitation status post mitral valve clipping 5. Hypertension 6. Type 2 diabetes mellitus 7. A persistent headache with some right visual impairment. He is going to have a CAT scan of the brain today. 8. Thrombocytopenia .his platelet count today is 44,000 today. He has had some epistaxis intermittently. Consultation Date/Type/Reason Admit Date/Time Aug 23, 2018 at 09:16 Initial Consult Date Type of Consult Nephrology Date/Time of Note DATE: 08/25/18 TIME: 09:33 24 HR Interval Summary Free Text/Dictation This patient is being seen in nephrologic follow-up. He is awake. He continues to have headaches. He has some diminished vision in the right eye. He underwent an EGD yesterday. Exam/Review of Systems Exam Vitals Vital Signs Date Temp Pulse Resp B/P (MAP) Pulse Ox O2 O2 Flow FiO2 Time Delivery Rate 08/25/18 63 08:12 08/25/18 98.1 19 148/65 92 07:23 (92) 08/25/18 Room Air 04:00 08/24/18 10 11:00 Intake and Output 08/24/18 08/24/18 08/25/18 1515:00 23:00 07:00 IntakeIntake Total 774 ml 540 ml 100 ml OutputOutput Total 0 ml 0 ml 250 ml BalanceBalance 774 ml 540 ml -150 ml Constitutional: alert, oriented, frail, obese Respiratory: clear to auscultation, normal air movement Cardiovascular: regular rate and rhythm, edema Gastrointestinal: soft, non-tender Extremities: edema Results Result Diagram: 08/25/18 0516 08/25/18 0516 Results 24hrs Laboratory Tests Test 08/24/18 10:12 08/24/18 10:15 08/24/18 11:59 08/24/18 17:23 Hemoglobin 8.0 L Hematocrit 24.9 L Phosphorus Level 4.6 Ammonia 40 #H Bedside Glucose 110 148 Test 08/24/18 18:06 08/24/18 20:35 08/25/18 00:28 08/25/18 05:16 Hemoglobin 8.7 L 7.9 L 8.1 L Hematocrit 26.8 L 25.0 L 25.2 L Bedside Glucose 152 White Blood Count 3.8 L Red Blood Count 2.62 L Mean Corpuscular 96.2 Volume Mean Corpuscular 30.9 Hemoglobin Mean Corpuscular 32.1 Hemoglobin Concent Red Cell 19.4 H Distribution Width Platelet Count 44 L Mean Platelet Volume 10.8 H Immature 0.800 H Granulocytes % Neutrophils % 64.7 Lymphocytes % 16.1 Monocytes % 10.8 Eosinophils % 7.1 H Basophils % 0.5 Nucleated Red Blood 0.0 Cells % Immature 0.030 Granulocytes # Neutrophils # 2.5 Lymphocytes # 0.6 L Monocytes # 0.4 Eosinophils # 0.3 Basophils # 0.0 Nucleated Red Blood 0.0 Cells # Sodium Level 134 L Potassium Level 4.0 Chloride Level 97 Carbon Dioxide Level 31 Anion Gap 6 Blood Urea Nitrogen 50 H Creatinine 3.91 H Est Glomerular 16 L Filtrat Rate mL/min Glucose Level 130 # Calcium Level 8.1 L Magnesium Level 2.2 Total Bilirubin 2.0 H Direct Bilirubin 0.00 Indirect Bilirubin 2.0 H Aspartate Amino 155 H Transf (AST/SGOT) Alanine 33 Aminotransferase (AL T/SGPT) Alkaline Phosphatase 113 Total Protein 6.8 Albumin 3.1 L Globulin 3.70 H Albumin/Globulin 0.83 Ratio Test 08/25/18 07:45 Bedside Glucose 145 Medications Medication Current Medications Ondansetron HCl (Zofran Inj) 4 mg Q6H PRN IV NAUSEA/VOMITING; Start 08/23/18 at 14:30 Acetaminophen (Tylenol Tab) 650 mg Q6H PRN PO .PAIN 1-3 OR TEMP; Start 08/23/18 at 14:30 Cholecalciferol (Vitamin D) 2,000 unit DAILY PO Last administered on 08/25/18at 08:07; Admin Dose 2,000 UNIT; Start 08/24/18 at 09:00 Escitalopram Oxalate (Lexapro) 10 mg QHS PO Last administered on 08/24/18at 20:36; Admin Dose 10 MG; Start 08/23/18 at 21:00 Furosemide (Lasix) 40 mg DAILY PO Last administered on 08/25/18 08:08; Admin Dose 40 MG; Start 08/24/18 at 09:00 Sucralfate (Carafate Susp) 1 gm TID PO Last administered on 08/25/18at 08:08; Admin Dose 1 GM; Start 08/23/18 at 21:00 Diagnostic Test (Pha) (Accu-Chek) 1 ea 02 XX ; Start 08/24/18 at 02:00 Insulin Aspart (Novolog Insulin Pen) NOVOLOG *MILD* ALGORITHM WITH MEALS BEDTIME SC Last administered on 08/25/18 08:25; Admin Dose 1 UNIT; Start 08/23/18 at 17:35 Miscellaneous Information 1 ea NOTE XX ; Start 08/23/18 at 15:00 Glucose (Glutose) 15 gm Q15M PRN PO DECREASED GLUCOSE; Start 08/23/18 at 15:00 Glucose (Glutose) 22.5 gm Q15M PRN PO DECREASED GLUCOSE; Start 08/23/18 at 15:00 Dextrose (D50w Syringe) 25 ml Q15M PRN IV DECREASED GLUCOSE; Start 08/23/18 at 15:00 Dextrose (D50w Syringe) 50 ml Q15M PRN IV DECREASED GLUCOSE; Start 08/23/18 at 15:00 Glucagon (Glucagen) 1 mg Q15M PRN IM DECREASED GLUCOSE; Start 08/23/18 at 15:00 Glucose (Glutose) 15 gm Q15M PRN BUCCAL DECREASED GLUCOSE; Start 08/23/18 at 15:00 Tramadol HCl (Ultram) 50 mg Q6H PRN PO MODERATE PAIN LEVEL 4-6 Last administered on 08/23/18at 21:18; Admin Dose 50 MG; Start 08/23/18 at 21:00 Morphine Sulfate (morphine) 2 mg Q4H PRN IV SEVERE PAIN LEVEL 7-10 Last administered on 08/24/18at 23:41; Admin Dose 2 MG; Start 08/23/18 at 21:00 Pantoprazole (Protonix Iv) 40 mg BID IV Last administered on 08/25/18 08:08; Admin Dose 40 MG; Start 08/24/18 at 21:00 Epoetin Sean (Epogen (Esrd)) 10,000 units TuThSa@17 SC Last administered on 08/24/18at 17:25; Admin Dose 10,000 UNITS; Start 08/24/18 at 17:00 Lactulose (Enulose) 20 gm QHS PO ; Start 08/25/18 at 21:00 ANA MELENDEZ MD Aug 25, 2018 09:40
--- NOTE | 2018-08-25 09:48 | PN ---
DATE: 08/25/2018 SUBJECTIVE: The patient is complaining of severe headache. No focal weakness or numbness. He compl ains of blurry vision (the patient has been complaining it for the last several weeks had been advise d to see brush maker machine) also complains of nasal bleeding. No chest pain or shortness of breath. PHYSICAL EXAMINATION: GENERAL: The patient is awake, alert. VITAL SIGNS: Temperature 98.1, blood pressure 148/65, O2 sat 92%. LUNGS: Clinically clear. HEART: S1, S2, no definite gallops. ABDOMEN: Soft, nontender, no hepatosplenomegaly. EXTREMITIES: Status post endoscopy. LABORATORY DATA: Hematocrit 25.2, platelet count is 44,000. BUN 50, creatinine 3.9, potassium 4.0. IMPRESSION: 1. Severe anemia secondary to probable gastrointestinal bleeding. 2. End-stage renal disease, on maintenance hemodialysis. 3. Headache. Etiology is unclear. 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ly stable. The patient does have severe thrombocyto penia. We will proceed with getting a CAT scan of the brain. 4. Status post mitral valve clipping. 5. Dysphagia, improving. 6. Diabetes mellitus type 2, well controlled. 7. Hypertension. PLAN: We will advise pinching of the nose and ice packs to the nostrils. CT of the brain without co ntrast, and ENT consultation if necessary, follow recommendation per Dr. Da Silva and Dr. Arteaga. Dictated By: JENY MORA MD SR/NTS Conf#: [id number] DID#: [id number] CC: JENY MORA MD;*EndCC*
[2018-08-25] MEDS: LACTULOSE 30ML CUP PO SCH (20:53)
[2018-08-25] MEDS: ESCITALOPRAM 10 MG TAB PO SCH (20:53)
[2018-08-25] MEDS: ACCU-CHEK XX SCH (21:01)
[2018-08-25] MEDS ORDERED: morphine LIQ (10 MG/5 ML) CUP PO PRN (22:30)
[2018-08-26] VITALS (9 sets, daily range): BP systolic 146–184; BP diastolic 69–84; PULSE 63–78; RESP 18–20
[2018-08-26] MEDS: INSULIN ASPART [NOVOLOG] 3 ML PEN SC SCH ×4 (07:38→21:14)
[2018-08-26] MEDS: CHOLECALCIFEROL 1,000 UNIT TAB PO SCH (08:09)
[2018-08-26] MEDS: FUROSEMIDE 40 MG TAB PO SCH (08:10)
[2018-08-26] MEDS: SUCRALFATE (100 MG/ML) 10ML CUP PO SCH ×3 (08:10→20:33)
[2018-08-26] MEDS: PANTOPRAZOLE 40 MG INJ IV SCH ×2 (08:11→20:33)
--- NOTE | 2018-08-26 09:02 | CONS ---
Assessment/Plan Assessment/Plan Hospital Course (Demo Recall) 1. End-stage renal disease on maintenance hemodialysis. I will order hemodialysis for tomorrow. 2. Anemia due to GI bleeding and chronic kidney disease. He underwent an EGD yesterday. Report of EGD not yet available.. I will start him on Epogen . His H&H has been stable. 3 Cirrhosis of the liver 4 History of mitral valve regurgitation status post mitral valve clipping 5. Hypertension 6. Type 2 diabetes mellitus 7. A persistent headache with some right visual impairment. He is going to have a CAT scan of the brain today. The headache has decreased in intensity. The CAT scan of the brain is unremarkable. 8. Thrombocytopenia . He has had some epistaxis intermittently. Consultation Date/Type/Reason Admit Date/Time Aug 23, 2018 at 09:16 Initial Consult Date Type of Consult Nephrology Date/Time of Note DATE: 08/26/18 TIME: 08:58 24 HR Interval Summary Free Text/Dictation This patient is being seen in nephrologic follow-up. He is awake and alert. He says that his headache has decreased. He does have some intermittent epistaxis. Constitutional: no complaints, improved Exam/Review of Systems Exam Vitals Vital Signs Date Temp Pulse Resp B/P (MAP) Pulse Ox O2 O2 Flow FiO2 Time Delivery Rate 08/26/18 63 08:27 08/26/18 98.3 19 151/69 96 07:50 (96) 08/25/18 Room Air 19:11 08/24/18 10 11:00 Intake and Output 08/25/18 08/25/18 08/26/18 1515:00 23:00 07:00 IntakeIntake Total 720 ml 60 ml OutputOutput Total 0 ml 2400 ml BalanceBalance 0 ml -1680 ml 60 ml Constitutional: alert, oriented, frail, obese Neck: supple, non-tender Respiratory: clear to auscultation, normal air movement Cardiovascular: regular rate and rhythm, edema Gastrointestinal: soft, non-tender Extremities: edema Results Result Diagram: 08/25/184 08/25/18 0516 Results 24hrs Laboratory Tests Test 08/25/18 11:54 08/25/18 17:14 08/25/18 20:56 08/25/18 22:04 Bedside Glucose 194 143 177 Hemoglobin 8.4 L Hematocrit 25.6 L Test 08/26/18 07:32 Bedside Glucose 227 H Medications Medication Current Medications Ondansetron HCl (Zofran Inj) 4 mg Q6H PRN IV NAUSEA/VOMITING; Start 08/23/18 at 14:30 Acetaminophen (Tylenol Tab) 650 mg Q6H PRN PO .PAIN 1-3 OR TEMP; Start 08/23/18 at 14:30 Cholecalciferol (Vitamin D) 2,000 unit DAILY PO Last administered on 08/26/18at 08:09; Admin Dose 2,000 UNIT; Start 08/24/18 at 09:00 Escitalopram Oxalate (Lexapro) 10 mg QHS PO Last administered on 08/25/18at 20:53; Admin Dose 10 MG; Start 08/23/18 at 21:00 Furosemide (Lasix) 40 mg DAILY PO Last administered on 08/26/18at 08:10; Admin Dose 40 MG; Start 08/24/18 at 09:00 Sucralfate (Carafate Susp) 1 gm TID PO Last administered on 08/26/18at 08:10; Admin Dose 1 GM; Start 08/23/18 at 21:00 Diagnostic Test (Pha) (Accu-Chek) 1 ea 02 XX ; Start 08/24/18 at 02:00 Insulin Aspart (Novolog Insulin Pen) NOVOLOG *MILD* ALGORITHM WITH MEALS BEDTIME SC Last administered on 08/26/18at 07:38; Admin Dose 3 UNIT; Start 08/23/18 at 17:35 Miscellaneous Information 1 ea NOTE XX ; Start 08/23/18 at 15:00 Glucose (Glutose) 15 gm Q15M PRN PO DECREASED GLUCOSE; Start 08/23/18 at 15:00 Glucose (Glutose) 22.5 gm Q15M PRN PO DECREASED GLUCOSE; Start 08/23/18 at 15:00 Dextrose (D50w Syringe) 25 ml Q15M PRN IV DECREASED GLUCOSE; Start 08/23/18 at 15:00 Dextrose (D50w Syringe) 50 ml Q15M PRN IV DECREASED GLUCOSE; Start 08/23/18 at 15:00 Glucagon (Glucagen) 1 mg Q15M PRN IM DECREASED GLUCOSE; Start 08/23/18 at 15:00 Glucose (Glutose) 15 gm Q15M PRN BUCCAL DECREASED GLUCOSE; Start 08/23/18 at 15:00 Tramadol HCl (Ultram) 50 mg Q6H PRN PO MODERATE PAIN LEVEL 4-6 Last administered on 08/23/18at 21:18; Admin Dose 50 MG; Start 08/23/18 at 21:00 Pantoprazole (Protonix Iv) 40 mg BID IV Last administered on 08/26/18at 08:11; Admin Dose 40 MG; Start 08/24/18 at 21:00 Epoetin Sean (Epogen (Esrd)) 10,000 units TuThSa@17 SC Last administered on 08/24/18at 17:25; Admin Dose 10,000 UNITS; Start 08/24/18 at 17:00 Lactulose (Enulose) 20 gm QHS PO Last administered on 08/25/18at 20:53; Admin Dose 20 GM; Start 08/25/18 at 21:00 Morphine Sulfate (morphine) 6 mg Q4H PRN PO SEVERE PAIN LEVEL 7-10; Start 08/25/18 at 22:30 ANA MELENDEZ MD Aug 26, 2018 09:02
--- NOTE | 2018-08-26 12:20 | CONS ---
Assessment/Plan Assessment/Plan Assessment/Plan (Daily) Hospital Course (Demo Recall) 63 yo male with ESLD and ESRD with recurrent GI bleeds presented to ER with symptomatic anemia 1. Dysphagia after JACQUE at [facility] -Improved 2. Symptomatic anemia, acute on chronic -stable 3. Hematuria per -resolved 4. Liver cirrhosis with portal hypertension and slightly elevated ammonia 5. ESRD 6. 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 Mitral regurgitation s/p mitral valve clipping 8. Obesity 9. 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 Pancytopenia 11. Persistent Headache with intermittent epistaxis x 2weeks, CT scan of the brain was negative 12. Dysphagia evidence of obstruction reassured the patient PLAN: Consider head CT for persistent headache x 2 weeks with intermittent epistaxis Lactulose 20 mg QD (usual dose at home) Continue with PPI BID [facility] and for acute GI bleeding Pain management Consultation Date/Type/Reason Admit Date/Time Aug 23, 2018 at 09:16 Initial Consult Date Date/Time of Note DATE: 08/26/18 TIME: 12:18 24 HR Interval Summary Free Text/Dictation Mild dysphagia Exam/Review of Systems Exam Vitals Vital Signs Date Temp Pulse Resp B/P (MAP) Pulse Ox O2 O2 Flow FiO2 Time Delivery Rate 08/26/18 98.1 70 18 176/77 91 11:26 (110) 08/25/18 Room Air 19:11 08/24/18 10 11:00 Intake and Output 08/25/18 08/25/18 08/26/18 1414:59 22:59 06:59 IntakeIntake Total 720 ml 60 ml OutputOutput Total 0 ml 2400 ml BalanceBalance 0 ml -1680 ml 60 ml Constitutional: alert, oriented, well developed Psych: no complaints, nl mood/affect Head: normocephalic, atraumatic Eyes: nl conjunctiva, EOMI, nl lids, nl sclera, PERRL ENMT: nl external ears & nose, nl lips & teeth, nl nasal mucosa & septum Neck: supple, non-tender Respiratory: clear to auscultation, normal air movement Cardiovascular: regular rate and rhythm, nl pulses Gastrointestinal: soft, nl liver, spleen, non-tender Musculoskeletal: nl extremities to inspection, nl gait and stance Extremities: normal pulses 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: [employer] PROMOTER II-XII intact, nl mental status, nl speech, nl strength Skin: nl turgor; No rash or lesions Lymph: nl lymph nodes Results Result Diagram: 08/26/1893608/26/18936 Results 24hrs Laboratory Tests Test 08/25/18 17:14 08/25/18 20:56 08/25/18 22:04 08/26/18 07:32 Bedside Glucose 143 177 227 H Hemoglobin 8.4 L Hematocrit 25.6 L Test 08/26/18 09:37 08/26/18 11:53 White Blood Count 3.0 #L Red Blood Count 2.55 L Hemoglobin 7.9 L Hematocrit 24.2 L Mean Corpuscular 94.9 Volume Mean Corpuscular 31.0 Hemoglobin Mean Corpuscular 32.6 Hemoglobin Concent Red Cell 18.5 H Distribution Width Platelet Count 42 L Mean Platelet Volume 10.4 Immature 0.300 Granulocytes % Neutrophils % 62.0 Lymphocytes % 18.2 Monocytes % 12.8 H Eosinophils % 6.4 Basophils % 0.3 Nucleated Red Blood 0.0 Cells % Immature 0.010 Granulocytes # Neutrophils # 1.8 Lymphocytes # 0.5 L Monocytes # 0.4 Eosinophils # 0.2 Basophils # 0.0 Nucleated Red Blood 0.0 Cells # Sodium Level 134 L Potassium Level 3.6 Chloride Level 97 Carbon Dioxide Level 28 Anion Gap 9 Blood Urea Nitrogen 41 H Creatinine 3.11 H Est Glomerular 20 L Filtrat Rate mL/min Glucose Level 184 Calcium Level 8.5 Total Bilirubin 3.4 H Direct Bilirubin 0.30 #H Indirect Bilirubin 3.1 H Aspartate Amino 241 #H Transf (AST/SGOT) Alanine 22 Aminotransferase (AL T/SGPT) Alkaline Phosphatase 125 H Total Protein 7.2 Albumin 3.3 Globulin 3.90 H Albumin/Globulin 0.84 Ratio Bedside Glucose 222 H Medications Medication Current Medications Ondansetron HCl (Zofran Inj) 4 mg Q6H PRN IV NAUSEA/VOMITING; Start 08/23/18 at 14:30 Acetaminophen (Tylenol Tab) 650 mg Q6H PRN PO .PAIN 1-3 OR TEMP; Start 08/23/18 at 14:30 Cholecalciferol (Vitamin D) 2,000 unit DAILY PO Last administered on 08/26/18at 08:09; Admin Dose 2,000 UNIT; Start 08/24/18 at 09:00 Escitalopram Oxalate (Lexapro) 10 mg QHS PO Last administered on 08/25/18at 20:53; Admin Dose 10 MG; Start 08/23/18 at 21:00 Furosemide (Lasix) 40 mg DAILY PO Last administered on 08/26/18at 08:10; Admin Dose 40 MG; Start 08/24/18 at 09:00 Sucralfate (Carafate Susp) 1 gm TID PO Last administered on 08/26/18at 08:10; Admin Dose 1 GM; Start 08/23/18 at 21:00 Diagnostic Test (Pha) (Accu-Chek) 1 ea 02 XX ; Start 08/24/18 at 02:00 Insulin Aspart (Novolog Insulin Pen) NOVOLOG *MILD* ALGORITHM WITH MEALS BED TIME SC Last administered on 08/26/18at 12:01; Admin Dose 3 UNIT; Start 08/23/18 at 17:35 Miscellaneous Information 1 ea NOTE XX ; Start 08/23/18 at 15:00 Glucose (Glutose) 15 gm Q15M PRN PO DECREASED GLUCOSE; Start 08/23/18 at 15:00 Glucose (Glutose) 22.5 gm Q15M PRN PO DECREASED GLUCOSE; Start 08/23/18 at 15:00 Dextrose (D50w Syringe) 25 ml Q15M PRN IV DECREASED GLUCOSE; Start 08/23/18 at 15:00 Dextrose (D50w Syringe) 50 ml Q15M PRN IV DECREASED GLUCOSE; Start 08/23/18 at 15:00 Glucagon (Glucagen) 1 mg Q15M PRN IM DECREASED GLUCOSE; Start 08/23/18 at 15:00 Glucose (Glutose) 15 gm Q15M PRN BUCCAL DECREASED GLUCOSE; Start 08/23/18 at 15:00 Tramadol HCl (Ultram) 50 mg Q6H PRN PO MODERATE PAIN LEVEL 4-6 Last administered on 08/23/18at 21:18; Admin Dose 50 MG; Start 08/23/18 at 21:00 Pantoprazole (Protonix Iv) 40 mg BID IV Last administered on 08/26/18at 08:11; Admin Dose 40 MG; Start 08/24/18 at 21:00 Epoetin Sean (Epogen (Esrd)) 10,000 units TuThSa@17 SC Last administered on 08/24/18at 17:25; Admin Dose 10,000 UNITS; Start 08/24/18 at 17:00 Lactulose (Enulose) 20 gm QHS PO Last administered on 08/25/18at 20:53; Admin Dose 20 GM; Start 08/25/18 at 21:00 Morphine Sulfate (morphine) 6 mg Q4H PRN PO SEVERE PAIN LEVEL 7-10; Start 08/25/18 at 22:30 STUART STANLEY MD Aug 26, 2018 12:19
[2018-08-26] MEDS: LISINOPRIL 20 MG TAB PO SCH (14:14)
--- NOTE | 2018-08-26 15:14 | PN ---
DATE: 08/26/2018 SUBJECTIVE: The patient continues to have headache but much better than yesterday. Nosebleeds have improved. He still continues dysphagia. The patient complains of increased gas. PHYSICAL EXAMINATION GENERAL: The patient is awake, alert. VITAL SIGNS: Temperature 98.1, blood pressure 176/77, O2 saturation 91% on room air. HEENT: Normocephalic. NECK: Supple. LUNGS: Clinically clear. HEART: S1, S2. No definite gallops. ABDOMEN: Obese, nontender. EXTREMITIES: No edema. The patient is also complaining of tingling and numbness in the lower extrem ities. LABORATORY DATA: WBC count 3.0, hematocrit 24.2, platelet count of 42,000. Potassium 3.6. AST is 2 41, ALT is 22, alkaline phosphatase 125. DIAGNOSTIC DATA: CT of the brain is negative for bleed. IMPRESSION: 1. Dysphagia, status post mitral valve clipping for mitral regurgitation, improving. 2. Symptomatic anemia. 3. Cirrhosis, portal hypertension. 4. 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 5. Pancytopenia. 6. Diabetic neuropathy. PLAN: We will have gabapentin small dose, also Mylicon for abdominal distention. We will discuss [facility] Dr. Arteaga regarding abnormal LFTs. Recheck LFTs in a.m. Dictated By: JENY MORA MD, SR/PEG Conf#: [id number] DID#: [id number]
[2018-08-26] MEDS: EPOETIN 10000 UNITS/1 ML INJ (ESRD) SC SCH (17:05)
[2018-08-26] MEDS: ESCITALOPRAM 10 MG TAB PO SCH (20:33)
[2018-08-26] MEDS: GABAPENTIN 100 MG CAP PO SCH (20:33)
[2018-08-26] MEDS: LACTULOSE 30ML CUP PO SCH (20:33)
[2018-08-26] MEDS: PROPRANOLOL 10 MG TAB PO SCH (20:34)
[2018-08-27] VITALS (24 sets, daily range): BP systolic 101–170; BP diastolic 55–85; PULSE 55–77; RESP 18–21
[2018-08-27] MEDS: traMADol 50 MG TAB PO PRN (00:10)
[2018-08-27] MEDS: ACCU-CHEK XX SCH (02:00)
[2018-08-27] MEDS: INSULIN ASPART [NOVOLOG] 3 ML PEN SC SCH ×4 (07:39→21:02)
[2018-08-27] MEDS: CHOLECALCIFEROL 1,000 UNIT TAB PO SCH (08:32)
[2018-08-27] MEDS: PANTOPRAZOLE 40 MG INJ IV SCH ×2 (08:32→20:52)
[2018-08-27] MEDS: SUCRALFATE (100 MG/ML) 10ML CUP PO SCH ×3 (08:32→20:52)
[2018-08-27] MEDS: LISINOPRIL 20 MG TAB PO SCH (08:33)
[2018-08-27] MEDS: GABAPENTIN 100 MG CAP PO SCH ×3 (08:33→20:53)
[2018-08-27] MEDS: FUROSEMIDE 40 MG TAB PO SCH (08:33)
[2018-08-27] MEDS: PROPRANOLOL 10 MG TAB PO SCH ×3 (08:33→20:53)
[2018-08-27] MEDS ORDERED: HYDROmorphONE 1 MG/ML SYG IV PRN (10:00)
--- NOTE | 2018-08-27 10:07 | CONS ---
Assessment/Plan Assessment/Plan Hospital Course (Demo Recall) 1. End-stage renal disease on maintenance hemodialysis. He is scheduled for hemodialysis today and I have ordered a blood transfusion during dialysis. He will received 1 unit of packed RBCs. I have ordered hemodialysis for him on Thursday08/29/18 . This should get him back on his TTS schedule for outpatient once he is discharged. 2. Anemia due to GI bleeding and chronic kidney disease.. I will start him on Epogen . His H&H is drifting down again. Hemoglobin today is 7.7. He will r eceive a 1 unit transfusion of packed RBCs with dialysis today. 3 Cirrhosis of the liver. He is being prepared for a liver/kidney transplant at [facility]. 4 History of mitral valve regurgitation status post mitral valve clipping 5. Hypertension 6. Type 2 diabetes mellitus 7. A persistent headache with some right visual impairment. He had a CAT scan of the brain which was unremarkable I have ordered an MRI of the brain. 8. Thrombocytopenia . He has had some epistaxis intermittently. Consultation Date/Type/Reason Admit Date/Time Aug 23, 2018 at 09:16 Initial Consult Date Type of Consult Nephrology Date/Time of Note DATE: 08/27/18 TIME: 09:57 24 HR Interval Summary Free Text/Dictation This patient is being seen in nephrologic follow-up. He is awake and alert. He continues to have intermittent headache. He has had slight epistaxis. Exam/Review of Systems Exam Vitals Vital Signs Date Temp Pulse Resp B/P (MAP) Pulse Ox O2 O2 Flow FiO2 Time Delivery Rate 08/27/18 60 08:37 08/27/18 98.6 20 146/65 96 Room Air 08:03 (92) 08/24/18 10 11:00 Intake and Output 08/26/18 08/26/18 08/27/18 1515:00 23:00 07:00 IntakeIntake Total 700 ml BalanceBalance 700 ml Constitutional: alert, oriented, frail, obese Neck: supple, non-tender Respiratory: clear to auscultation, normal air movement Cardiovascular: regular rate and rhythm, edema Extremities: edema Results Result Diagram: 08/27/18 0601 08/27/18 0601 Results 24hrs Laboratory Tests Test 08/26/18 11:53 08/26/18 16:57 08/26/18 20:42 08/27/18 06:01 Bedside Glucose 222 H 259 H 205 White Blood Count 3.5 L Red Blood Count 2.51 L Hemoglobin 7.7 L Hematocrit 23.5 L Mean Corpuscular 93.6 Volume Mean Corpuscular 30.7 Hemoglobin Mean Corpuscular 32.8 Hemoglobin Concent Red Cell 18.5 H Distribution Width Platelet Count 56 #L Mean Platelet Volume 12.7 #H Immature 0.300 Granulocytes % Neutrophils % 61.6 Lymphocytes % 19.5 Monocytes % 12.0 H Eosinophils % 6.3 Basophils % 0.3 Nucleated Red Blood 0.0 Cells % Immature 0.010 Granulocytes # Neutrophils # 2.2 Lymphocytes # 0.7 L Monocytes # 0.4 Eosinophils # 0.2 Basophils # 0.0 Nucleated Red Blood 0.0 Cells # Sodium Level 135 Potassium Level 3.9 Chloride Level 98 Carbon Dioxide Level 31 Anion Gap 6 Blood Urea Nitrogen 51 H Creatinine 3.55 H Est Glomerular 17 L Filtrat Rate mL/min Glucose Level 168 Calcium Level 8.9 Total Bilirubin 3.3 H Direct Bilirubin 0.50 #H Indirect Bilirubin 2.8 H Aspartate Amino 205 H Transf (AST/SGOT) Alanine 35 Aminotransferase (AL T/SGPT) Alkaline Phosphatase 102 Total Protein 6.7 Albumin 3.0 L Globulin 3.70 H Albumin/Globulin 0.81 Ratio Test 08/27/18 07:37 Bedside Glucose 161 Medications Medication Current Medications Ondansetron HCl (Zofran Inj) 4 mg Q6H PRN IV NAUSEA/VOMITING; Start 08/23/18 at 14:30 Acetaminophen (Tylenol Tab) 650 mg Q6H PRN PO .PAIN 1-3 OR TEMP; Start 08/23/18 at 14:30 Cholecalciferol (Vitamin D) 2,000 unit DAILY PO Last administered on 08/27/18at 08:32; Admin Dose 2,000 UNIT; Start 08/24/18 at 09:00 Escitalopram Oxalate (Lexapro) 10 mg QHS PO Last administered on 08/26/18at 20:33; Admin Dose 10 MG; Start 08/23/18 at 21:00 Furosemide (Lasix) 40 mg DAILY PO Last administered on 08/27/18at 08:33; Admin Dose 40 MG; Start 08/24/18 at 09:00 Sucralfate (Carafate Susp) 1 gm TID PO Last administered on 08/27/18 08:32; Admin Dose 1 GM; Start 08/23/18 at 21:00 Diagnostic Test (Pha) (Accu-Chek) 1 ea 02 XX ; Start 08/24/18 at 02:00 Insulin Aspart (Novolog Insulin Pen) NOVOLOG *MILD* ALGORITHM WITH MEALS BEDTIME SC Last administered on 08/27/18 07:39; Admin Dose 1 UNIT; Start 08/23/18 at 17:35 Miscellaneous Information 1 ea NOTE XX ; Start 08/23/18 at 15:00 Glucose (Glutose) 15 gm Q15M PRN PO DECREASED GLUCOSE; Start 08/23/18 at 15:00 Glucose (Glutose) 22.5 gm Q15M PRN PO DECREASED GLUCOSE; Start 08/23/18 at 15:00 Dextrose (D50w Syringe) 25 ml Q15M PRN IV DECREASED GLUCOSE; Start 08/23/18 at 15:00 Dextrose (D50w Syringe) 50 ml Q15M PRN IV DECREASED GLUCOSE; Start 08/23/18 at 15:00 Glucagon (Glucagen) 1 mg Q15M PRN IM DECREASED GLUCOSE; Start 08/23/18 at 15:00 Glucose (Glutose) 15 gm Q15M PRN BUCCAL DECREASED GLUCOSE; Start 08/23/18 at 15:00 Tramadol HCl (Ultram) 50 mg Q6H PRN PO MODERATE PAIN LEVEL 4-6 Last administered on 08/27/18at 00:10; Admin Dose 50 MG; Start 08/23/18 at 21:00 Pantoprazole (Protonix Iv) 40 mg BID IV Last administered on 08/27/18 08:32; Admin Dose 40 MG; Start 08/24/18 at 21:00 Epoetin Sean (Epogen (Esrd)) 10,000 units TuThSa@17 SC Last administered on 08/26/18 17:05; Admin Dose 10,000 UNITS; Start 08/24/18 at 17:00 Lactulose (Enulose) 20 gm QHS PO Last administered on 08/26/18 20:33; Admin Dose 20 GM; Start 08/25/18 at 21:00 Morphine Sulfate (morphine) 6 mg Q4H PRN PO SEVERE PAIN LEVEL 7-10 Last administered on 08/27/18 03:16; Admin Dose 6 MG; Start 08/25/18 at 22:30 Propranolol HCl (Inderal) 10 mg BID PO Last administered on 08/26/18 20:34; Admin Dose 10 MG; Start 08/26/18 at 21:00 Lisinopril (Zestril) 20 mg DAILY PO Last administered on 08/26/18 14:14; Admin Dose 20 MG; Start 08/26/18 at 14:00 Hydralazine HCl (Apresoline) 25 mg Q6H PRN PO ELEVATED BLOOD PRESSURE Last administered on 08/26/18at 20:34; Admin Dose 25 MG; Start 08/26/18 at 14:00 Simethicone (Mylicon) 80 mg TID PRN GTB DISTENSION/GAS/BLOATING; Start 08/26/18 at 14:30 Gabapentin (Neurontin) 100 mg TID PO Last administered on 08/27/18 08:33; Admin Dose 100 MG; Start 08/26/18 at 21:00 ANA MELENDEZ MD Aug 27, 2018 10:07
--- NOTE | 2018-08-27 11:52 | CONS ---
Assessment/Plan Assessment/Plan Assessment/Plan (Daily) Hospital Course (Demo Recall) 63 yo male with ESLD and ESRD with recurrent GI bleeds presented to ER with symptomatic anemia 1. Dysphagia after JACQUE at [facility] -Improved 2. Symptomatic anemia, acute on chronic -stable 3. Hematuria per -resolved 4. Liver cirrhosis with portal hypertension and slightly elevated ammonia 5. ESRD 6. 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 Mitral regurgitation s/p mitral valve clipping 8. Obesity 9. 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 Pancytopenia 11. Persistent Headache with intermittent epistaxis x 2weeks, CT scan of the brain was negative 12. Dysphagia evidence of obstruction reassured the patient PLAN: Consider head CT for persistent headache x 2 weeks with intermittent epistaxis Lactulose 20 mg QD (usual dose at home) Continue with PPI BID [facility] and for acute GI bleeding Pain management Transfuse 1 unit of packed cell RBC MRI of the brain Discussed with Dr. Brice and also Dr. Carlyle Oconnell Consultation Date/Type/Reason Admit Date/Time Aug 23, 2018 at 09:16 Initial Consult Date Date/Time of Note DATE: 08/27/18 TIME: 11:51 24 HR Interval Summary Constitutional: improved Exam/Review of Systems Exam Vitals Vital Signs Date Temp Pulse Resp B/P (MAP) Pulse Ox O2 O2 Flow FiO2 Time Delivery Rate 08/27/18 97.7 58 21 137/77 96 Room Air 11:17 (97) 08/24/18 10 11:00 Intake and Output 08/26/18 08/26/18 08/27/18 1515:00 23:00 07:00 IntakeIntake Total 700 ml BalanceBalance 700 ml Constitutional: alert, oriented, well developed Psych: no complaints, nl mood/affect Head: normocephalic, atraumatic Eyes: nl conjunctiva, EOMI, nl lids, nl sclera, PERRL ENMT: nl external ears & nose, nl lips & teeth, nl nasal mucosa & septum Neck: supple, non-tender Respiratory: clear to auscultation, normal air movement Cardiovascular: regular rate and rhythm, nl pulses Gastrointestinal: soft, nl liver, spleen, non-tender Musculoskeletal: nl extremities to inspection, nl gait and stance Extremities: normal pulses 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: [employer]ENDANT II-XII intact, nl mental status, nl speech, nl strength Skin: nl turgor; No rash or lesions Lymph: nl lymph nodes Results Result Diagram: 08/27/1860008/27/18 06 Results 24hrs Laboratory Tests Test 08/26/18 11:53 08/26/18 16:57 08/26/18 20:42 08/27/18 06:01 Bedside Glucose 222 H 259 H 205 White Blood Count 3.5 L Red Blood Count 2.51 L Hemoglobin 7.7 L Hematocrit 23.5 L Mean Corpuscular 93.6 Volume Mean Corpuscular 30.7 Hemoglobin Mean Corpuscular 32.8 Hemoglobin Concent Red Cell 18.5 H Distribution Width Platelet Count 56 #L Mean Platelet Volume 12.7 #H Immature 0.300 Granulocytes % Neutrophils % 61.6 Lymphocytes % 19.5 Monocytes % 12.0 H Eosinophils % 6.3 Basophils % 0.3 Nucleated Red Blood 0.0 Cells % Immature 0.010 Granulocytes # Neutrophils # 2.2 Lymphocytes # 0.7 L Monocytes # 0.4 Eosinophils # 0.2 Basophils # 0.0 Nucleated Red Blood 0.0 Cells # Sodium Level 135 Potassium Level 3.9 Chloride Level 98 Carbon Dioxide Level 31 Anion Gap 6 Blood Urea Nitrogen 51 H Creatinine 3.55 H Est Glomerular 17 L Filtrat Rate mL/min Glucose Level 168 Calcium Level 8.9 Total Bilirubin 3.3 H Direct Bilirubin 0.50 #H Indirect Bilirubin 2.8 H Aspartate Amino 205 H Transf (AST/SGOT) Alanine 35 Aminotransferase (AL T/SGPT) Alkaline Phosphatase 102 Total Protein 6.7 Albumin 3.0 L Globulin 3.70 H Albumin/Globulin 0.81 Ratio Test 08/27/18 07:37 08/27/18 11:44 Bedside Glucose 161 181 Medications Medication Current Medications Ondansetron HCl (Zofran Inj) 4 mg Q6H PRN IV NAUSEA/VOMITING; Start 08/23/18 at 14:30 Acetaminophen (Tylenol Tab) 650 mg Q6H PRN PO .PAIN 1-3 OR TEMP; Start 08/23/18 at 14:30 Cholecalciferol (Vitamin D) 2,000 unit DAILY PO Last administered on 08/27/18at 08:32; Admin Dose 2,000 UNIT; Start 08/24/18 at 09:00 Escitalopram Oxalate (Lexapro) 10 mg QHS PO Last administered on 08/26/18 20:33; Admin Dose 10 MG; Start 08/23/18 at 21:00 Furosemide (Lasix) 40 mg DAILY PO Last administered on 08/27/18 08:33; Admin Dose 40 MG; Start 08/24/18 at 09:00 Sucralfate (Carafate Susp) 1 gm TID PO Last administered on 08/27/18 08:32; A dmin Dose 1 GM; Start 08/23/18 at 21:00 Diagnostic Test (Pha) (Accu-Chek) 1 ea 02 XX ; Start 08/24/18 at 02:00 Insulin Aspart (Novolog Insulin Pen) NOVOLOG *MILD* ALGORITHM WITH MEALS BEDTIME SC Last administered on 08/27/18 07:39; Admin Dose 1 UNIT; Start 08/23/18 at 17:35 Miscellaneous Information 1 ea NOTE XX ; Start 08/23/18 at 15:00 Glucose (Glutose) 15 gm Q15M PRN PO DECREASED GLUCOSE; Start 08/23/18 at 15:00 Glucose (Glutose) 22.5 gm Q15M PRN PO DECREASED GLUCOSE; Start 08/23/18 at 1 5:00 Dextrose (D50w Syringe) 25 ml Q15M PRN IV DECREASED GLUCOSE; Start 08/23/18 at 15:00 Dextrose (D50w Syringe) 50 ml Q15M PRN IV DECREASED GLUCOSE; Start 08/23/18 at 15:00 Glucagon (Glucagen) 1 mg Q15M PRN IM DECREASED GLUCOSE; Start 08/23/18 at 15:00 Glucose (Glutose) 15 gm Q15M PRN BUCCAL DECREASED GLUCOSE; Start 08/23/18 at 15:00 Tramadol HCl (Ultram) 50 mg Q6H PRN PO MODERATE PAIN LEVEL 4-6 Last administered on 08/27/18 00:10; Admin Dose 50 MG; Start 08/23/18 at 21:00 Pantoprazole (Protonix Iv) 40 mg BID IV Last administered on 08/27/18 08:32; Admin Dose 40 MG; Start 08/24/18 at 21:00 Epoetin Sean (Epogen (Esrd)) 10,000 units TuThSa@17 SC Last administered on 08/26/18 17:05; Admin Dose 10,000 UNITS; Start 08/24/18 at 17:00 Lactulose (Enulose) 20 gm QHS PO Last administered on 08/26/18 20:33; Admin Dose 20 GM; Start 08/25/18 at 21:00 Propranolol HCl (Inderal) 10 mg BID PO Last administered on 08/26/18 20:34; Admin Dose 10 MG; Start 08/26/18 at 21:00 Lisinopril (Zestril) 20 mg DAILY PO Last administered on 08/26/18 14:14; Admin Dose 20 MG; Start 08/26/18 at 14:00 Hydralazine HCl (Apresoline) 25 mg Q6H PRN PO ELEVATED BLOOD PRESSURE Last administered on 08/26/18 20:34; Admin Dose 25 MG; Start 08/26/18 at 14:00 Simethicone (Mylicon) 80 mg TID PRN GTB DISTENSION/GAS/BLOATING; Start 08/26/18 at 14:30 Gabapentin (Neurontin) 100 mg TID PO Last administered on 08/27/18 08:33; Admin Dose 100 MG; Start 08/26/18 at 21:00 Hydromorphone HCl (Dilaudid) 1 mg Q4H PRN IV SEVERE PAIN LEVEL 7-10; Start 08/27/18 at 10:00 STUART STANLEY MD Aug 27, 2018 11:52
--- NOTE | 2018-08-27 13:55 | PN ---
DATE: 08/27/2018 SUBJECTIVE: The patient still complains of mild headaches. Denies any focal weakness or numbness. PHYSICAL EXAMINATION: VITAL SIGNS: Temperature 98.6, blood pressure 146/65, O2 sats 96% on room air. HEENT: Mild scleral icterus. Tongue is coated, dry. NECK: Supple. LUNGS: Clinically clear. HEART: S1, S2 with no definite gallops. ABDOMEN: Soft, obese. No hepatosplenomegaly. EXTREMITIES: No edema. LABORATORY DATA: Sodium 134, potassium 3.9. Total bilirubin 3.3, AST is 205, alkaline phosphatase 1 02. Hematocrit 23.5, hemoglobin 7.7, platelet count is 56,000. IMPRESSION: 1. Cephalgia and thrombocytopenia. 2. End-stage renal disease on maintenance hemodialysis. 3. Anemia, combination of gastrointestinal bleed and chronic kidney disease. 4. Cirrhosis with portal hypertension, altered LFTs with transaminase elevation. 5. Status post mitral valve clipping for mitral regurgitation. 6. Dysphagia, improving. 7. Hypertension. 8. Diabetes mellitus type 2. PLAN: We will continue GI recommendation with Dr. Arteaga. I discussed with Dr. Da Silva. MRI of the brain has been ordered. Closely monitor for any blood loss and treat with replacement RBC. Dictated By: JENY MORA MD, SR/PEG Conf#: [id number] DID#: [id number]
[2018-08-27] MEDS: LACTULOSE 30ML CUP PO SCH (20:52)
[2018-08-27] MEDS: ESCITALOPRAM 10 MG TAB PO SCH (20:53)
[2018-08-28] VITALS (11 sets, daily range): BP systolic 122–150; BP diastolic 57–71; PULSE 52–65; RESP 18–20
[2018-08-28] MEDS: ACCU-CHEK XX SCH (02:00)
[2018-08-28] MEDS: INSULIN ASPART [NOVOLOG] 3 ML PEN SC SCH ×4 (07:54→21:54)
[2018-08-28] MEDS: SUCRALFATE (100 MG/ML) 10ML CUP PO SCH ×3 (08:02→21:43)
[2018-08-28] MEDS: PANTOPRAZOLE 40 MG INJ IV SCH ×2 (08:02→21:55)
[2018-08-28] MEDS: FUROSEMIDE 40 MG TAB PO SCH (08:03)
[2018-08-28] MEDS: GABAPENTIN 100 MG CAP PO SCH ×3 (08:03→21:44)
[2018-08-28] MEDS: CHOLECALCIFEROL 1,000 UNIT TAB PO SCH (08:03)
[2018-08-28] MEDS: LISINOPRIL 20 MG TAB PO SCH (08:06)
[2018-08-28] MEDS: PROPRANOLOL 10 MG TAB PO SCH ×2 (09:17→21:44)
--- NOTE | 2018-08-28 14:27 | CONS ---
Assessment/Plan Assessment/Plan Assessment/Plan (Daily) 63 yo male with ESLD and ESRD with recurrent GI bleeds presented to ER with symptomatic anemia 1. Dysphagia after JACQUE at [facility] -Improved 2. Symptomatic anemia, acute on chronic -stable 3. Hematuria per -resolved 4. Liver cirrhosis with portal hypertension and slightly elevated ammonia 5. ESRD 6. 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 Mitral regurgitation s/p mitral valve clipping 8. Obesity 9. 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 Pancytopenia 11. Persistent Headache with intermittent epistaxis x 2weeks, CT scan of the brain was negative 12. Dysphagia evidence of obstruction reassured the patient 13. Jaundice total bilirubin improved PLAN: Consider head CT for persistent headache x 2 weeks with intermittent epistaxis Lactulose 20 mg QD (usual dose at home) Continue with PPI BID [facility] and for acute GI bleeding Pain management Transfuse 1 unit of packed cell RBC MRI of the brain Consultation Date/Type/Reason Admit Date/Time Aug 23, 2018 at 09:16 Initial Consult Date Date/Time of Note DATE: 08/28/18 TIME: 14:25 24 HR Interval Summary Constitutional: no complaints, improved Exam/Review of Systems Exam Vitals Vital Signs Date Temp Pulse Resp B/P (MAP) Pulse Ox O2 O2 Flow FiO2 Time Delivery Rate 08/28/18 65 13:14 08/28/18 97.7 20 130/63 97 11:38 (85) 08/28/18 Room Air 07:59 08/24/18 10 11:00 Intake and Output 08/27/18 08/27/18 08/28/18 1414:59 22:59 06:59 IntakeIntake Total 300 ml 780 ml 500 ml OutputOutput Total 3100 ml 2000 ml BalanceBalance -2800 ml -1220 ml 500 ml Constitutional: alert, oriented, well developed Psych: no complaints, nl mood/affect Head: normocephalic, atraumatic Eyes: nl conjunctiva, EOMI, nl lids, nl sclera, PERRL ENMT: nl external ears & nose, nl lips & teeth, nl nasal mucosa & septum Neck: supple, non-tender Respiratory: clear to auscultation, normal air movement Cardiovascular: regular rate and rhythm, nl pulses Gastrointestinal: soft, nl liver, spleen, non-tender Musculoskeletal: nl extremities to inspection, nl gait and stance Extremities: normal pulses 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: STORAGE [employer]CHIT[employer] II-XII intact, nl mental status, nl speech, nl strength Skin: nl turgor; No rash or lesions Lymph: nl lymph nodes Results Result Diagram: 08/28/1852008/28/18520 Results 24hrs Laboratory Tests Test 08/27/18 17:09 08/27/18 20:51 08/28/18 01:53 08/28/18 05:21 Bedside Glucose 214 196 153 White Blood Count 3.3 L Red Blood Count 2.91 L Hemoglobin 8.8 L Hematocrit 27.8 L Mean Corpuscular 95.5 Volume Mean Corpuscular 30.2 Hemoglobin Mean Corpuscular 31.7 L Hemoglobin Concent Red Cell 18.2 H Distribution Width Platelet Count 56 L Mean Platelet Volume 13.3 H Immature 0.300 Granulocytes % Neutrophils % 56.3 Lymphocytes % 23.4 Monocytes % 12.0 H Eosinophils % 7.4 H Basophils % 0.6 Nucleated Red Blood 0.0 Cells % Immature 0.010 Granulocytes # Neutrophils # 1.8 Lymphocytes # 0.8 Monocytes # 0.4 Eosinophils # 0.2 Basophils # 0.0 Nucleated Red Blood 0.0 Cells # Sodium Level 135 Potassium Level 4.0 Chloride Level 94 L Carbon Dioxide Level 32 H Anion Gap 9 Blood Urea Nitrogen 36 #H Creatinine 3.31 H Est Glomerular 19 L Filtrat Rate mL/min Glucose Level 168 Calcium Level 8.4 Total Bilirubin 1.6 H Direct Bilirubin 0.10 # Indirect Bilirubin 1.5 H Aspartate Amino 149 H Transf (AST/SGOT) Alanine 29 Aminotransferase (AL T/SGPT) Alkaline Phosphatase 120 Total Protein 7.0 Albumin 3.1 L Globulin 3.90 H Albumin/Globulin 0.79 Ratio Test 08/28/18 07:53 08/28/18 11:50 Bedside Glucose 132 208 Medications Medication Current Medications Ondansetron HCl (Zofran Inj) 4 mg Q6H PRN IV NAUSEA/VOMITING; Start 08/23/18 at 14:30 Acetaminophen (Tylenol Tab) 650 mg Q6H PRN PO .PAIN 1-3 OR TEMP; Start 08/23/18 at 14:30 Cholecalciferol (Vitamin D) 2,000 unit DAILY PO Last administered on 08/28/18at 08:03; Admin Dose 2,000 UNIT; Start 08/24/18 at 09:00 Escitalopram Oxalate (Lexapro) 10 mg QHS PO Last administered on 08/27/18at 20:53; Admin Dose 10 MG; Start 08/23/18 at 21:00 Furosemide (Lasix) 40 mg DAILY PO Last administered on 08/28/18 08:03; Admin Dose 40 MG; Start 08/24/18 at 09:00 Sucralfate (Carafate Susp) 1 gm TID PO Last administered on 08/28/18at 11:55; Admin Dose 1 GM; Start 08/23/18 at 21:00 Diagnostic Test (Pha) (Accu-Chek) 1 ea 02 XX ; Start 08/24/18 at 02:00 Insulin Aspart (Novolog Insulin Pen) NOVOLOG *MILD* ALGORITHM WITH MEALS BEDTIME SC Last administered on 08/28/18 11:53; Admin Dose 2 UNIT; Start 08/23/18 at 17:35 Miscellaneous Information 1 ea NOTE XX ; Start 08/23/18 at 15:00 Glucose (Glutose) 15 gm Q15M PRN PO DECREASED GLUCOSE; Start 08/23/18 at 15:00 Glucose (Glutose) 22.5 gm Q15M PRN PO DECREASED GLUCOSE; Start 08/23/18 at 15:00 Dextrose (D50w Syringe) 25 ml Q15M PRN IV DECREASED GLUCOSE; Start 08/23/18 at 15:00 Dextrose (D50w Syringe) 50 ml Q15M PRN IV DECREASED GLUCOSE; Start 08/23/18 at 15:00 Glucagon (Glucagen) 1 mg Q15M PRN IM DECREASED GLUCOSE; Start 08/23/18 at 15:00 Glucose (Glutose) 15 gm Q15M PRN BUCCAL DECREASED GLUCOSE; Start 08/23/18 at 15:00 Tramadol HCl (Ultram) 50 mg Q6H PRN PO MODERATE PAIN LEVEL 4-6 Last administered on 08/27/18at 00:10; Admin Dose 50 MG; Start 08/23/18 at 21:00 Pantoprazole (Protonix Iv) 40 mg BID IV Last administered on 08/28/18at 08:02; Admin Dose 40 MG; Start 08/24/18 at 21:00 Epoetin Sean (Epogen (Esrd)) 10,000 units TuThSa@17 SC Last administered on 08/26/18 17:05; Admin Dose 10,000 UNITS; Start 08/24/18 at 17:00 Lactulose (Enulose) 20 gm QHS PO Last administered on 08/27/18at 20:52; Admin Dose 20 GM; Start 08/25/18 at 21:00 Propranolol HCl (Inderal) 10 mg BID PO Last administered on 08/28/18 09:17; Admin Dose 10 MG; Start 08/26/18 at 21:00 Lisinopril (Zestril) 20 mg DAILY PO Last administered on 08/28/18 08:06; Admin Dose 20 MG; Start 08/26/18 at 14:00 Hydralazine HCl (Apresoline) 25 mg Q6H PRN PO ELEVATED BLOOD PRESSURE Last administered on 08/26/18 20:34; Admin Dose 25 MG; Start 08/26/18 at 14:00 Simethicone (Mylicon) 80 mg TID PRN GTB DISTENSION/GAS/BLOATING; Start 08/26/18 at 14:30 Gabapentin (Neurontin) 100 mg TID PO Last administered on 08/28/18 11:55; Admin Dose 100 MG; Start 08/26/18 at 21:00 Hydromorphone HCl (Dilaudid) 1 mg Q4H PRN IV SEVERE PAIN LEVEL 7-10 Last administered on 08/27/18 15:39; Admin Dose 1 MG; Start 08/27/18 at 10:00 STUART STANLEY MD Aug 28, 2018 14:27
--- NOTE | 2018-08-28 14:32 | CONS ---
Assessment/Plan Assessment/Plan Assessment/Plan (Daily) 1. End-stage renal disease on maintenance hemodialysis. s/p HD yesterday and planned for tomorrow 2. Anemia due to GI bleeding and chronic kidney disease. Hb improved today s/p transfusion yesterday. On JAGDEEP 3 Cirrhosis of the liver. He is being prepared for a liver/kidney transplant at [facility]. 4 History of mitral valve regurgitation status post mitral valve clipping 5. Hypertension 6. Type 2 diabetes mellitus 7. A persistent headache with some right visual impairment. MRI brain. Consultation Date/Type/Reason Admit Date/Time Aug 23, 2018 at 09:16 Initial Consult Date Type of Consult Nephrology Date/Time of Note DATE: 08/28/18 TIME: 14:29 24 HR Interval Summary Free Text/Dictation Patient is off floor for an MRI Chart reviewed Exam/Review of Systems Exam Vitals Vital Signs Date Temp Pulse Resp B/P (MAP) Pulse Ox O2 O2 Flow FiO2 Time Delivery Rate 08/28/18 65 13:14 08/28/18 97.7 20 130/63 97 11:38 (85) 08/28/18 Room Air 07:59 08/24/18 10 11:00 Intake and Output 08/27/18 08/27/18 08/28/18 1515:00 23:00 07:00 IntakeIntake Total 300 ml 780 ml 500 ml OutputOutput Total 3100 ml 2000 ml BalanceBalance -2800 ml -1220 ml 500 ml Results Result Diagram: 08/28/18 0521 08/28/18 0521 Results 24hrs Laboratory Tests Test 08/27/18 17:09 08/27/18 20:51 08/28/18 01:53 08/28/18 05:21 Bedside Glucose 214 196 153 White Blood Count 3.3 L Red Blood Count 2.91 L Hemoglobin 8.8 L Hematocrit 27.8 L Mean Corpuscular 95.5 Volume Mean Corpuscular 30.2 Hemoglobin Mean Corpuscular 31.7 L Hemoglobin Concent Red Cell 18.2 H Distribution Width Platelet Count 56 L Mean Platelet Volume 13.3 H Immature 0.300 Granulocytes % Neutrophils % 56.3 Lymphocytes % 23.4 Monocytes % 12.0 H Eosinophils % 7.4 H Basophils % 0.6 Nucleated Red Blood 0.0 Cells % Immature 0.010 Granulocytes # Neutrophils # 1.8 Lymphocytes # 0.8 Monocytes # 0.4 Eosinophils # 0.2 Basophils # 0.0 Nucleated Red Blood 0.0 Cells # Sodium Level 135 Potassium Level 4.0 Chloride Level 94 L Carbon Dioxide Level 32 H Anion Gap 9 Blood Urea Nitrogen 36 #H Creatinine 3.31 H Est Glomerular 19 L Filtrat Rate mL/min Glucose Level 168 Calcium Level 8.4 Total Bilirubin 1.6 H Direct Bilirubin 0.10 # Indirect Bilirubin 1.5 H Aspartate Amino 149 H Transf (AST/SGOT) Alanine 29 Aminotransferase (AL T/SGPT) Alkaline Phosphatase 120 Total Protein 7.0 Albumin 3.1 L Globulin 3.90 H Albumin/Globulin 0.79 Ratio Test 08/28/18 07:53 08/28/18 11:50 Bedside Glucose 132 208 Medications Medication Current Medications Ondansetron HCl (Zofran Inj) 4 mg Q6H PRN IV NAUSEA/VOMITING; Start 08/23/18 at 14:30 Acetaminophen (Tylenol Tab) 650 mg Q6H PRN PO .PAIN 1-3 OR TEMP; Start 08/23/18 at 14:30 Cholecalciferol (Vitamin D) 2,000 unit DAILY PO Last administered on 08/28/18at 08:03; Admin Dose 2,000 UNIT; Start 08/24/18 at 09:00 Escitalopram Oxalate (Lexapro) 10 mg QHS PO Last administered on 08/27/18at 20:53; Admin Dose 10 MG; Start 08/23/18 at 21:00 Furosemide (Lasix) 40 mg DAILY PO Last administered on 08/28/18at 08:03; Admin Dose 40 MG; Start 08/24/18 at 09:00 Sucralfate (Carafate Susp) 1 gm TID PO Last administered on 08/28/18at 11:55; Admin Dose 1 GM; Start 08/23/18 at 21:00 Diagnostic Test (Pha) (Accu-Chek) 1 ea 02 XX ; Start 08/24/18 at 02:00 Insulin Aspart (Novolog Insulin Pen) NOVOLOG *MILD* ALGORITHM WITH MEALS BE DTIME SC Last administered on 08/28/18at 11:53; Admin Dose 2 UNIT; Start 08/23/18 at 17:35 Miscellaneous Information 1 ea NOTE XX ; Start 08/23/18 at 15:00 Glucose (Glutose) 15 gm Q15M PRN PO DECREASED GLUCOSE; Start 08/23/18 at 15:00 Glucose (Glutose) 22.5 gm Q15M PRN PO DECREASED GLUCOSE; Start 08/23/18 at 15:00 Dextrose (D50w Syringe) 25 ml Q15M PRN IV DECREASED GLUCOSE; Start 08/23/18 at 15:00 Dextrose (D50w Syringe) 50 ml Q15M PRN IV DECREASED GLUCOSE; Start 08/23/18 at 15:00 Glucagon (Glucagen) 1 mg Q15M PRN IM DECREASED GLUCOSE; Start 08/23/18 at 15:00 Glucose (Glutose) 15 gm Q15M PRN BUCCAL DECREASED GLUCOSE; Start 08/23/18 at 15:00 Tramadol HCl (Ultram) 50 mg Q6H PRN PO MODERATE PAIN LEVEL 4-6 Last administered on 08/27/18at 00:10; Admin Dose 50 MG; Start 08/23/18 at 21:00 Pantoprazole (Protonix Iv) 40 mg BID IV Last administered on 08/28/18at 08:02; Admin Dose 40 MG; Start 08/24/18 at 21:00 Epoetin Sean (Epogen (Esrd)) 10,000 units TuThSa@17 SC Last administered on 08/13 10/29at 17:05; Admin Dose 10,000 UNITS; Start 08/24/18 at 17:00 Lactulose (Enulose) 20 gm QHS PO Last administered on 08/27/18at 20:52; Admin Dose 20 GM; Start 08/25/18 at 21:00 Propranolol HCl (Inderal) 10 mg BID PO Last administered on 08/28/18at 09:17; Admin Dose 10 MG; Start 08/26/18 at 21:00 Lisinopril (Zestril) 20 mg DAILY PO Last administered on 08/28/18at 08:06; Admin Dose 20 MG; Start 08/26/18 at 14:00 Hydralazine HCl (Apresoline) 25 mg Q6H PRN PO ELEVATED BLOOD PRESSURE Last administered on 08/26/18at 20:34; Admin Dose 25 MG; Start 08/26/18 at 14:00 Simethicone (Mylicon) 80 mg TID PRN GTB DISTENSION/GAS/BLOATING; Start 08/26/18 at 14:30 Gabapentin (Neurontin) 100 mg TID PO Last administered on 08/28/18at 11:55; Admin Dose 100 MG; Start 08/26/18 at 21:00 Hydromorphone HCl (Dilaudid) 1 mg Q4H PRN IV SEVERE PAIN LEVEL 7-10 Last administered on 08/27/18at 15:39; Admin Dose 1 MG; Start 08/27/18 at 10:00 SHANA LEMA MD Aug 28, 2018 14:32
--- NOTE | 2018-08-28 16:02 | PN ---
DATE: 08/28/2018 SUBJECTIVE: The patient overall feels better. Headache is much improved. OBJECTIVE: VITAL SIGNS: Temperature 98.0, blood pressure 150/71, O2 saturation 94% on room air. HEENT: Head normocephalic. No epistaxis noted at this time. No signs of meningismus. CHEST: Clinically clear. HEART: S1, S2. No definite gallops. ABDOMEN: Soft, obese. No hepatosplenomegaly. EXTREMITIES: No edema. LABORATORY DATA: WBC 3.3, hematocrit 27.8, platelet count 56,000. Potassium 4.0, BUN 36, creatinine 3.31, total bilirubin 1.6, AST is 149 (significantly improved since yesterday). IMPRESSION: 1. Anemia, combination of GI bleed and chronic kidney disease. 2. Pancytopenia. 3. Headache, improved. 4. Cirrhosis, portal hypertension. LFTs elevation improving. 5. Status post mitral valve clipping for mitral regurgitation. 6. Dysphagia, improving. 7. Hypertension. 8. Diabetes mellitus type 2. PLAN: Continue present management. Continue to monitor for blood loss and replace as needed. Dictated By: JENY MORA MD SR/NTS Conf#: [id number] DID#: [id number]
[2018-08-28] MEDS: EPOETIN 10000 UNITS/1 ML INJ (ESRD) SC SCH (17:21)
[2018-08-28] MEDS: LACTULOSE 30ML CUP PO SCH (21:43)
[2018-08-28] MEDS: ESCITALOPRAM 10 MG TAB PO SCH (21:44)
[2018-08-29] VITALS (24 sets, daily range): BP systolic 115–158; BP diastolic 48–86; PULSE 51–74; RESP 18
[2018-08-29] MEDS: ACCU-CHEK XX SCH (02:33)
[2018-08-29] MEDS: FUROSEMIDE 40 MG TAB PO SCH (07:57)
[2018-08-29] MEDS: GABAPENTIN 100 MG CAP PO SCH ×3 (07:57→20:06)
[2018-08-29] MEDS: SUCRALFATE (100 MG/ML) 10ML CUP PO SCH ×3 (07:58→20:06)
[2018-08-29] MEDS: LISINOPRIL 20 MG TAB PO SCH (07:58)
[2018-08-29] MEDS: CHOLECALCIFEROL 1,000 UNIT TAB PO SCH (07:58)
[2018-08-29] MEDS: PROPRANOLOL 10 MG TAB PO SCH ×3 (07:58→21:00)
[2018-08-29] MEDS: PANTOPRAZOLE 40 MG INJ IV SCH ×2 (07:58→20:06)
[2018-08-29] MEDS: INSULIN ASPART [NOVOLOG] 3 ML PEN SC SCH ×4 (08:12→20:17)
--- NOTE | 2018-08-29 13:37 | PN ---
DATE: 08/29/2018 SUBJECTIVE: Patient has occasional headaches, but overall much better. Denies any nausea, vomiting. VITAL SIGNS: Temperature 98.4, blood pressure 158/74, O2 saturation 98% on room air. CHEST: Clinically clear. HEART: S1, S2, no definite gallops. ABDOMEN: Soft, nontender, no hepatosplenomegaly. EXTREMITIES: No edema. NEUROLOGIC: The patient moves both upper and lower extremities well. Strength both upper and lower extremities 5 x 5. LABORATORY DATA: Hematocrit 26.2, hemoglobin 8.5, platelet count of 47,000. Potassium 4.4. MRI of the brain shows tiny focus of subacute infarct in the high left frontal subcortical matter without an y hemorrhage. The patient appears neurologically stable. IMPRESSION: 1. Status post recent subacute infarct left high frontal area. Patient appears neurologically stabl e. 2. Anemia, a combination of GI bleed and chronic kidney disease. 3. Pancytopenia. 4. Cirrhosis with portal hypertension. 5. Status post mitral valve clipping for mitral regurgitation. 6. Dysphagia, improving. 7. Hypertension. 8. Diabetes mellitus type 2, well controlled. PLAN: Continue recommendations per Dr. Da Silva. Will consider neurology consultation if patient continues to have headaches or any signs of weakness of the right lower extremity or any dysphagia. Dictated By: EJNY MORA MD, SR/PEG Conf#: [id number] DID#: [id number]
--- NOTE | 2018-08-29 13:49 | CONS ---
Assessment/Plan Assessment/Plan Assessment/Plan (Daily) 1. End-stage renal disease on maintenance hemodialysis. HD planned for today 2. Anemia due to GI bleeding and chronic kidney disease. Hb stable,o n JAGDEEP 3 Cirrhosis of the liver. He is being prepared for a liver/kidney transplant at [facility]. 4 History of mitral valve regurgitation status post mitral valve clipping 5. Hypertension 6. Type 2 diabetes mellitus 7. Possible small CVA on MRI Consultation Date/Type/Reason Admit Date/Time Aug 23, 2018 at 09:16 Initial Consult Date Type of Consult Nephrology Date/Time of Note DATE: 08/29/18 TIME: 13:46 24 HR Interval Summary Free Text/Dictation Complains of visual problem, unchanged Exam/Review of Systems Exam Vitals Vital Signs Date Temp Pulse Resp B/P (MAP) Pulse Ox O2 O2 Flow FiO2 Time Delivery Rate 08/29/18 66 12:31 08/29/18 98.4 18 158/74 98 11:40 (102) 08/28/18 Room Air 15:46 Intake and Output 08/28/18 08/28/18 08/29/18 1515:00 23:00 07:00 IntakeIntake Total 500 ml BalanceBalance 500 ml Constitutional: alert Head: normocephalic, atraumatic Neck: No jvd Respiratory: clear to auscultation Cardiovascular: regular rate and rhythm Gastrointestinal: soft Extremities: No edema Results Result Diagram: 08/29/18 0451 08/29/18 0451 Results 24hrs Laboratory Tests Test 08/28/18 17:20 08/28/18 21:42 08/29/18 02:29 08/29/18 04:51 Bedside Glucose 201 184 249 H White Blood Count 2.9 L Red Blood Count 2.75 L Hemoglobin 8.5 L Hematocrit 26.2 L Mean Corpuscular 95.3 Volume Mean Corpuscular 30.9 Hemoglobin Mean Corpuscular 32.4 Hemoglobin Concent Red Cell 17.9 H Distribution Width Platelet Count 47 L Mean Platelet Volume 10.5 #H Immature 0.300 Granulocytes % Neutrophils % 58.7 Lymphocytes % 22.9 Monocytes % 12.2 H Eosinophils % 5.6 Basophils % 0.3 Nucleated Red Blood 0.0 Cells % Immature 0.010 Granulocytes # Neutrophils # 1.7 Lymphocytes # 0.7 L Monocytes # 0.4 Eosinophils # 0.2 Basophils # 0.0 Nucleated Red Blood 0.0 Cells # Sodium Level 135 Potassium Level 4.4 Chloride Level 100 Carbon Dioxide Level 29 Anion Gap 6 Blood Urea Nitrogen 54 H Creatinine 3.95 H Est Glomerular 15 L Filtrat Rate mL/min Glucose Level 164 Calcium Level 8.4 Test 08/29/18 07:55 08/29/18 12:00 Bedside Glucose 169 198 Medications Medication Current Medications Ondansetron HCl (Zofran Inj) 4 mg Q6H PRN IV NAUSEA/VOMITING; Start 08/23/18 at 14:30 Acetaminophen (Tylenol Tab) 650 mg Q6H PRN PO .PAIN 1-3 OR TEMP; Start 08/23/18 at 14:30 Cholecalciferol (Vitamin D) 2,000 unit DAILY PO Last administered on 08/29/18at 07:58; Admin Dose 2,000 UNIT; Start 08/24/18 at 09:00 Escitalopram Oxalate (Lexapro) 10 mg QHS PO Last administered on 08/28/18at 21:44; Admin Dose 10 MG; Start 08/23/18 at 21:00 Furosemide (Lasix) 40 mg DAILY PO Last administered on 08/29/18at 07:57; Admin Dose 40 MG; Start 08/24/18 at 09:00 Sucralfate (Carafate Susp) 1 gm TID PO Last administered on 08/29/18at 12:01; Admin Dose 1 GM; Start 08/23/18 at 21:00 Diagnostic Test (Pha) (Accu-Chek) 1 ea 02 XX Last administered on 08/29/18at 02:33; Admin Dose 1 EA; Start 08/24/18 at 02:00 Miscellaneous Information 1 ea NOTE XX ; Start 08/23/18 at 15:00 Glucose (Glutose) 15 gm Q15M PRN PO DECREASED GLUCOSE; Start 08/23/18 at 15:00 Glucose (Glutose) 22.5 gm Q15M PRN PO DECREASED GLUCOSE; Start 08/23/18 at 15:00 Dextrose (D50w Syringe) 25 ml Q15M PRN IV DECREASED GLUCOSE; Start 08/23/18 at 15:00 Dextrose (D50w Syringe) 50 ml Q15M PRN IV DECREASED GLUCOSE; Start 08/23/18 at 15:00 Glucagon (Glucagen) 1 mg Q15M PRN IM DECREASED GLUCOSE; Start 08/23/18 at 15:00 Glucose (Glutose) 15 gm Q15M PRN BUCCAL DECREASED GLUCOSE; Start 08/23/18 at 15:00 Tramadol HCl (Ultram) 50 mg Q6H PRN PO MODERATE PAIN LEVEL 4-6 Last administered on 08/27/18 00:10; Admin Dose 50 MG; Start 08/23/18 at 21:00 Pantoprazole (Protonix Iv) 40 mg BID IV Last administered on 08/29/18 07:58; Admin Dose 40 MG; Start 08/24/18 at 21:00 Epoetin Sean (Epogen (Esrd)) 10,000 units TuThSa@17 SC Last administered on 08/28/18 17:21; Admin Dose 10,000 UNITS; Start 08/24/18 at 17:00 Lactulose (Enulose) 20 gm QHS PO Last administered on 08/28/18at 21:43; Admin Dose 20 GM; Start 08/25/18 at 21:00 Propranolol HCl (Inderal) 10 mg BID PO Last administered on 08/28/18at 21:44; Admin Dose 10 MG; Start 08/26/18 at 21:00 Lisinopril (Zestril) 20 mg DAILY PO Last administered on 08/29/18 07:58; Admin Dose 20 MG; Start 08/26/18 at 14:00 Hydralazine HCl (Apresoline) 25 mg Q6H PRN PO ELEVATED BLOOD PRESSURE Last administered on 08/26/18at 20:34; Admin Dose 25 MG; Start 08/26/18 at 14:00 Simethicone (Mylicon) 80 mg TID PRN GTB DISTENSION/GAS/BLOATING; Start 08/26/18 at 14:30 Gabapentin (Neurontin) 100 mg TID PO Last administered on 08/29/18at 12:01; Admin Dose 100 MG; Start 08/26/18 at 21:00 Hydromorphone HCl (Dilaudid) 1 mg Q4H PRN IV SEVERE PAIN LEVEL 7-10 Last administered on 08/27/18at 15:39; Admin Dose 1 MG; Start 08/27/18 at 10:00 Insulin Aspart (Novolog Insulin Pen) NOVOLOG *MODERATE* ALGORITHM WITH MEALS BEDTIME SC Last administered on 08/29/18at 12:10; Admin Dose 4 UNIT; Start 08/29/18 at 08:00 Insulin Glargine (Lantus) 10 units DAILY@2000 SC ; Start 08/29/18 at 20:00 SHANA LEMA MD Aug 29, 2018 13:49
--- NOTE | 2018-08-29 18:41 | CONS ---
Assessment/Plan Assessment/Plan Assessment/Plan (Daily) 63 yo male with ESLD and ESRD with recurrent GI bleeds presented to ER with symptomatic anemia 1. Dysphagia after JACQUE at [facility] -Improved 2. Symptomatic anemia, acute on chronic -stable 3. Hematuria per -resolved 4. Liver cirrhosis with portal hypertension and slightly elevated ammonia 5. ESRD 6. 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 Mitral regurgitation s/p mitral valve clipping 8. Obesity 9. 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 Pancytopenia 11. Persistent Headache with intermittent epistaxis x 2weeks, CT scan of the brain was negative 12. Dysphagia evidence of obstruction reassured the patient 13. Jaundice total bilirubin improved PLAN: Consider head CT for persistent headache x 2 weeks with intermittent epistaxis Lactulose 20 mg QD (usual dose at home) Continue with PPI BID [facility] and for acute GI bleeding Pain management Transfuse 1 unit of packed cell RBC MRI of the brain, tiny infarct left frontal lobe Consultation Date/Type/Reason Admit Date/Time Aug 23, 2018 at 09:16 Initial Consult Date Date/Time of Note DATE: 08/29/18 TIME: 18:41 24 HR Interval Summary Constitutional: no complaints, improved Exam/Review of Systems Exam Vitals Vital Signs Date Temp Pulse Resp B/P (MAP) Pulse Ox O2 O2 Flow FiO2 Time Delivery Rate 08/29/18 62 18 158/86 94 Room Air 18:27 (110) 08/29/18 98.4 11:40 Intake and Output 08/28/18 08/28/18 08/29/18 1414:59 22:59 06:59 IntakeIntake Total 500 ml BalanceBalance 500 ml Constitutional: alert, oriented, well developed Psych: no complaints, nl mood/affect Head: normocephalic, atraumatic Eyes: nl conjunctiva, EOMI, nl lids, nl sclera, PERRL ENMT: nl external ears & nose, nl lips & teeth, nl nasal mucosa & septum Neck: supple, non-tender Respiratory: clear to auscultation, normal air movement Cardiovascular: regular rate and rhythm, nl pulses Gastrointestinal: soft, nl liver, spleen, non-tender Musculoskeletal: nl extremities to inspection, nl gait and stance Extremities: normal pulses 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: [employer] II-XII intact, nl mental status, nl speech, nl strength Skin: nl turgor; No rash or lesions Lymph: nl lymph nodes Results Result Diagram: 08/29/18 0451 08/29/18 0451 Results 24hrs Laboratory Tests Test 08/28/18 21:42 08/29/18 02:29 08/29/18 04:51 08/29/18 07:55 Bedside Glucose 184 249 H 169 White Blood Count 2.9 L Red Blood Count 2.75 L Hemoglobin 8.5 L Hematocrit 26.2 L Mean Corpuscular 95.3 Volume Mean Corpuscular 30.9 Hemoglobin Mean Corpuscular 32.4 Hemoglobin Concent Red Cell 17.9 H Distribution Width Platelet Count 47 L Mean Platelet Volume 10.5 #H Immature 0.300 Granulocytes % Neutrophils % 58.7 Lymphocytes % 22.9 Monocytes % 12.2 H Eosinophils % 5.6 Basophils % 0.3 Nucleated Red Blood 0.0 Cells % Immature 0.010 Granulocytes # Neutrophils # 1.7 Lymphocytes # 0.7 L Monocytes # 0.4 Eosinophils # 0.2 Basophils # 0.0 Nucleated Red Blood 0.0 Cells # Sodium Level 135 Potassium Level 4.4 Chloride Level 100 Carbon Dioxide Level 29 Anion Gap 6 Blood Urea Nitrogen 54 H Creatinine 3.95 H Est Glomerular 15 L Filtrat Rate mL/min Glucose Level 164 Calcium Level 8.4 Test 08/29/18 12:00 08/29/18 18:18 Bedside Glucose 198 163 Medications Medication Current Medications Ondansetron HCl (Zofran Inj) 4 mg Q6H PRN IV NAUSEA/VOMITING; Start 08/23/18 at 14:30 Acetaminophen (Tylenol Tab) 650 mg Q6H PRN PO .PAIN 1-3 OR TEMP; Start 08/23/18 at 14:30 Cholecalciferol (Vitamin D) 2,000 unit DAILY PO Last administered on 08/29/18at 07:58; Admin Dose 2,000 UNIT; Start 08/24/18 at 09:00 Escitalopram Oxalate (Lexapro) 10 mg QHS PO Last administered on 08/28/18at 21:44; Admin Dose 10 MG; Start 08/23/18 at 21:00 Furosemide (Lasix) 40 mg DAILY PO Last administered on 08/29/18at 07:57; Admin Dose 40 MG; Start 08/24/18 at 09:00 Sucralfate (Carafate Susp) 1 gm TID PO Last administered on 08/29/18at 12:01; Admin Dose 1 GM; Start 08/23/18 at 21:00 Diagnostic Test (Pha) (Accu-Chek) 1 ea 02 XX Last administered on 08/29/18at 02:33; Admin Dose 1 EA; Start 08/24/18 at 02:00 Miscellaneous Information 1 ea NOTE XX ; Start 08/23/18 at 15:00 Glucose (Glutose) 15 gm Q15M PRN PO DECREASED GLUCOSE; Start 08/23/18 at 15:00 Glucose (Glutose) 22.5 gm Q15M PRN PO DECREASED GLUCOSE; Start 08/23/18 at 15:00 Dextrose (D50w Syringe) 25 ml Q15M PRN IV DECREASED GLUCOSE; Start 08/23/18 at 15:00 Dextrose (D50w Syringe) 50 ml Q15M PRN IV DECREASED GLUCOSE; Start 08/23/18 at 15:00 Glucagon (Glucagen) 1 mg Q15M PRN IM DECREASED GLUCOSE; Start 08/23/18 at 15:00 Glucose (Glutose) 15 gm Q15M PRN BUCCAL DECREASED GLUCOSE; Start 08/23/18 at 15:00 Tramadol HCl (Ultram) 50 mg Q6H PRN PO MODERATE PAIN LEVEL 4-6 Last administered on 08/27/18at 00:10; Admin Dose 50 MG; Start 08/23/18 at 21:00 Pantoprazole (Protonix Iv) 40 mg BID IV Last administered on 08/29/18at 07:58; Admin Dose 40 MG; Start 08/24/18 at 21:00 Epoetin Sean (Epogen (Esrd)) 10,000 units TuThSa@17 SC Last administered on 08/28/18at 17:21; Admin Dose 10,000 UNITS; Start 08/24/18 at 17:00 Lactulose (Enulose) 20 gm QHS PO Last administered on 08/28/18at 21:43; Admin Dose 20 GM; Start 08/25/18 at 21:00 Propranolol HCl (Inderal) 10 mg BID PO Last administered on 08/28/18at 21:44; Admin Dose 10 MG; Start 08/26/18 at 21:00 Lisinopril (Zestril) 20 mg DAILY PO Last administered on 08/29/18 07:58; Admin Dose 20 MG; Start 08/26/18 at 14:00 Hydralazine HCl (Apresoline) 25 mg Q6H PRN PO ELEVATED BLOOD PRESSURE Last administered on 08/26/18 20:34; Admin Dose 25 MG; Start 08/26/18 at 14:00 Simethicone (Mylicon) 80 mg TID PRN GTB DISTENSION/GAS/BLOATING; Start 08/26/18 at 14:30 Gabapentin (Neurontin) 100 mg TID PO Last administered on 08/29/18 12:01; Admin Dose 100 MG; Start 08/26/18 at 21:00 Hydromorphone HCl (Dilaudid) 1 mg Q4H PRN IV SEVERE PAIN LEVEL 7-10 Last admi nistered on 08/27/18at 15:39; Admin Dose 1 MG; Start 08/27/18 at 10:00 Insulin Aspart (Novolog Insulin Pen) NOVOLOG *MODERATE* ALGORITHM WITH MEALS BEDTIME SC Last administered on 08/29/18 18:28; Admin Dose 2 UNIT; Start 08/29/18 at 08:00 Insulin Glargine (Lantus) 10 units DAILY@2000 SC ; Start 08/29/18 at 20:00 STUART STANLEY MD Aug 29, 2018 18:41
[2018-08-29] MEDS: ESCITALOPRAM 10 MG TAB PO SCH (20:06)
[2018-08-29] MEDS: LACTULOSE 30ML CUP PO SCH (20:06)
[2018-08-29] MEDS: INSULIN GLARGINE [LANTus] (100 UNITS/ML) SYG SC SCH (20:16)
[2018-08-30] VITALS (12 sets, daily range): BP systolic 124–138; BP diastolic 35–76; PULSE 44–75; RESP 17–20
[2018-08-30] MEDS: ACCU-CHEK XX SCH (02:18)
--- NOTE | 2018-08-30 08:12 | CONS ---
Assessment/Plan Assessment/Plan Hospital Course (Demo Recall) 63 yo male with ESLD and ESRD with recurrent GI bleeds presented to ER with symptomatic anemia 1. Dysphagia after JACQUE at [facility] -Improved 2. Symptomatic anemia, acute on chronic -stable 3. Hematuria per -resolved 4. Liver cirrhosis with portal hypertension and slightly elevated ammonia 5. ESRD 6. 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 Mitral regurgitation s/p mitral valve clipping 8. Obesity 9. 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 Pancytopenia 11. Persistent Headache with intermittent epistaxis x 2weeks 12. Acute infarct noted on MRI 13. Acute UTI -Pt is not on antibiotic PLAN: Check ammonia level Amitiza and miralax Urine cx showed Proteus mirabilis and enterococcus species, consider antibiotic Continue with PPI BID Monitor HH and for acute GI bleeding Pt examined and plan of care discussed with Dr. Arteaga Consultation Date/Type/Reason Admit Date/Time Aug 23, 2018 at 09:16 Initial Consult Date Date/Time of Note DATE: 08/30/18 TIME: 08:04 24 HR Interval Summary Free Text/Dictation C/O constipation. No N/V or abdominal pain. Tolerating PO diet. Denies SOB. Exam/Review of Systems Exam Vitals Vital Signs Date Temp Pulse Resp B/P (MAP) Pulse Ox O2 O2 Flow FiO2 Time Delivery Rate 08/30/18 98.4 60 17 127/63 100 07:16 (84) 08/29/18 Room Air 18:27 Intake and Output 08/29/18 08/29/18 08/30/18 1515:00 23:00 07:00 IntakeIntake Total 750 ml 500 ml OutputOutput Total 4500 ml BalanceBalance -3750 ml 500 ml Constitutional: alert, oriented Psych: no complaints Head: normocephalic Eyes: PERRL, icteric Respiratory: diminished breath sounds Cardiovascular: regular rate and rhythm Gastrointestinal: distended 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: nl mental status Results Result Diagram: 08/29/18 0451 08/29/18 0451 Results 24hrs Laboratory Tests Test 08/29/18 12:00 08/29/18 18:18 08/29/18 20:07 08/30/18 02:15 Bedside Glucose 198 163 189 242 H Medications Medication Current Medications Ondansetron HCl (Zofran Inj) 4 mg Q6H PRN IV NAUSEA/VOMITING; Start 08/23/18 at 14:30 Acetaminophen (Tylenol Tab) 650 mg Q6H PRN PO .PAIN 1-3 OR TEMP; Start 08/23/18 at 14:30 Cholecalciferol (Vitamin D) 2,000 unit DAILY PO Last administered on 08/29/18at 07:58; Admin Dose 2,000 UNIT; Start 08/24/18 at 09:00 Escitalopram Oxalate (Lexapro) 10 mg QHS PO Last administered on 08/29/18at 20:06; Admin Dose 10 MG; Start 08/23/18 at 21:00 Furosemide (Lasix) 40 mg DAILY PO Last administered on 08/29/18at 07:57; Admin Dose 40 MG; Start 08/24/18 at 09:00 Sucralfate (Carafate Susp) 1 gm TID PO Last administered on 08/29/18at 20:06; Admin Dose 1 GM; Start 08/23/18 at 21:00 Diagnostic Test (Pha) (Accu-Chek) 1 ea 02 XX Last administered on 08/30/18at 02:18; Admin Dose 1 EA; Start 08/24/18 at 02:00 Miscellaneous Information 1 ea NOTE XX ; Start 08/23/18 at 15:00 Glucose (Glutose) 15 gm Q15M PRN PO DECREASED GLUCOSE; Start 08/23/18 at 15:00 Glucose (Glutose) 22.5 gm Q15M PRN PO DECREASED GLUCOSE; Start 08/23/18 at 15:00 Dextrose (D50w Syringe) 25 ml Q15M PRN IV DECREASED GLUCOSE; Start 08/23/18 at 15:00 Dextrose (D50w Syringe) 50 ml Q15M PRN IV DECREASED GLUCOSE; Start 08/23/18 at 15:00 Glucagon (Glucagen) 1 mg Q15M PRN IM DECREASED GLUCOSE; Start 08/23/18 at 15:00 Glucose (Glutose) 15 gm Q15M PRN BUCCAL DECREASED GLUCOSE; Start 08/23/18 at 15:00 Tramadol HCl (Ultram) 50 mg Q6H PRN PO MODERATE PAIN LEVEL 4-6 Last administered on 08/27/18at 00:10; Admin Dose 50 MG; Start 08/23/18 at 21:00 Pantoprazole (Protonix Iv) 40 mg BID IV Last administered on 08/29/18 20:06; Admin Dose 40 MG; Start 08/24/18 at 21:00 Epoetin Sean (Epogen (Esrd)) 10,000 units TuThSa@17 SC Last administered on 08/28/18 17:21; Admin Dose 10,000 UNITS; Start 08/24/18 at 17:00 Lactulose (Enulose) 20 gm QHS PO Last administered on 08/29/18 20:06; Admin Dose 20 GM; Start 08/25/18 at 21:00 Propranolol HCl (Inderal) 10 mg BID PO Last administered on 08/28/18 21:44; Admin Dose 10 MG; Start 08/26/18 at 21:00 Lisinopril (Zestril) 20 mg DAILY PO Last administered on 08/29/18 07:58; Admin Dose 20 MG; Start 08/26/18 at 14:00 Hydralazine HCl (Apresoline) 25 mg Q6H PRN PO ELEVATED BLOOD PRESSURE Last administered on 08/26/18 20:34; Admin Dose 25 MG; Start 08/26/18 at 14:00 Simethicone (Mylicon) 80 mg TID PRN GTB DISTENSION/GAS/BLOATING; Start 08/26/18 at 14:30 Gabapentin (Neurontin) 100 mg TID PO Last administered on 08/29/18 20:06; Admin Dose 100 MG; Start 08/26/18 at 21:00 Hydromorphone HCl (Dilaudid) 1 mg Q4H PRN IV SEVERE PAIN LEVEL 7-10 Last administered on 08/27/18 15:39; Admin Dose 1 MG; Start 08/27/18 at 10:00 Insulin Aspart (Novolog Insulin Pen) NOVOLOG *MODERATE* ALGORITHM WITH MEALS BEDTIME SC Last administered on 08/29/18 20:17; Admin Dose 1 UNIT; Start 08/29/18 at 08:00 Insulin Glargine (Lantus) 10 units DAILY@2000 SC Last administered on 08/29/18 20:16; Admin Dose 10 UNITS; Start 08/29/18 at 20:00 URSULA DANIEL Aug 30, 2018 08:12
[2018-08-30] MEDS: INSULIN ASPART [NOVOLOG] 3 ML PEN SC SCH ×4 (08:13→21:19)
[2018-08-30] MEDS: POLYETHYLENE GLYCOL 17 GM PACKET PO SCH (09:08)
[2018-08-30] MEDS: PANTOPRAZOLE 40 MG INJ IV SCH (09:08)
[2018-08-30] MEDS: GABAPENTIN 100 MG CAP PO SCH ×3 (09:09→21:20)
[2018-08-30] MEDS: SUCRALFATE (100 MG/ML) 10ML CUP PO SCH ×3 (09:09→21:20)
[2018-08-30] MEDS: CHOLECALCIFEROL 1,000 UNIT TAB PO SCH (09:09)
[2018-08-30] MEDS: FUROSEMIDE 40 MG TAB PO SCH (09:10)
[2018-08-30] MEDS: LISINOPRIL 20 MG TAB PO SCH (09:10)
[2018-08-30] MEDS: PROPRANOLOL 10 MG TAB PO SCH ×2 (09:10→21:00)
--- NOTE | 2018-08-30 09:57 | CONS ---
Assessment/Plan Assessment/Plan Hospital Course (Demo Recall) 1. End-stage renal disease on maintenance hemodialysis. He usually dialyzes TTS and is due for dialysis tomorrow. I will order dialysis tomorrow if he is still in the hospital. He could be discharged to home today. 2. Anemia due to GI bleeding and chronic kidney disease.. I started him on Epogen . 3 Cirrhosis of the liver. He is being prepared for a liver/kidney transplant at [facility]. 4 History of mitral valve regurgitation status post mitral valve clipping 5. Hypertension 6. Type 2 diabetes mellitus 7. A persistent headache with some right visual impairment. MRI of brain shows a small infarct in the left frontal cortex which could be new. 8. Thrombocytopenia . He has had some epistaxis intermittently. Consultation Date/Type/Reason Admit Date/Time Aug 23, 2018 at 09:16 Initial Consult Date Type of Consult Nephrology Date/Time of Note DATE: 08/30/18 TIME: 09:54 24 HR Interval Summary Free Text/Dictation Tyrone is being seen in nephrologic follow-up. He is sleeping but arouses easily to verbal stimuli. He does complain of some slight dysphasia which she has had but seems to be getting better. He is not complaining of a headache. Constitutional: improved Exam/Review of Systems Exam Vitals Vital Signs Date Temp Pulse Resp B/P (MAP) Pulse Ox O2 O2 Flow FiO2 Time Delivery Rate 08/30/18 98.4 60 17 127/63 100 07:16 (84) 08/29/18 Room Air 18:27 Intake and Output 08/29/18 08/29/18 08/30/18 1414:59 22:59 06:59 IntakeIntake Total 750 ml 500 ml OutputOutput Total 4500 ml BalanceBalance -3750 ml 500 ml Constitutional: alert, oriented, frail, obese Respiratory: clear to auscultation, normal air movement Cardiovascular: regular rate and rhythm Gastrointestinal: soft, non-tender Musculoskeletal: nl extremities to inspection Results Result Diagram: 08/29/18 0451 08/29/18 0451 Results 24hrs Laboratory Tests Test 08/29/18 12:00 08/29/18 18:18 08/29/18 20:07 08/30/18 02:15 Bedside Glucose 198 163 189 242 H Test 08/30/18 08:05 Bedside Glucose 190 Medications Medication Current Medications Ondansetron HCl (Zofran Inj) 4 mg Q6H PRN IV NAUSEA/VOMITING; Start 08/23/18 at 14:30 Acetaminophen (Tylenol Tab) 650 mg Q6H PRN PO .PAIN 1-3 OR TEMP; Start 08/23/18 at 14:30 Cholecalciferol (Vitamin D) 2,000 unit DAILY PO Last administered on 08/30/18at 09:09; Admin Dose 2,000 UNIT; Start 08/24/18 at 09:00 Escitalopram Oxalate (Lexapro) 10 mg QHS PO Last administered on 08/29/18at 20:06; Admin Dose 10 MG; Start 08/23/18 at 21:00 Furosemide (Lasix) 40 mg DAILY PO Last administered on 08/30/18at 09:10; Admin Dose 40 MG; Start 08/24/18 at 09:00 Sucralfate (Carafate Susp) 1 gm TID PO Last administered on 08/30/18at 09:09; Admin Dose 1 GM; Start 08/23/18 at 21:00 Diagnostic Test (Pha) (Accu-Chek) 1 ea 02 XX Last administered on 08/30/18at 02:18; Admin Dose 1 EA; Start 08/24/18 at 02:00 Miscellaneous Information 1 ea NOTE XX ; Start 08/23/18 at 15:00 Glucose (Glutose) 15 gm Q15M PRN PO DECREASED GLUCOSE; Start 08/23/18 at 15:00 Glucose (Glutose) 22.5 gm Q15M PRN PO DECREASED GLUCOSE; Start 08/23/18 at 15:00 Dextrose (D50w Syringe) 25 ml Q15M PRN IV DECREASED GLUCOSE; Start 08/23/18 at 15:00 Dextrose (D50w Syringe) 50 ml Q15M PRN IV DECREASED GLUCOSE; Start 08/23/18 at 15:00 Glucagon (Glucagen) 1 mg Q15M PRN IM DECREASED GLUCOSE; Start 08/23/18 at 15:00 Glucose (Glutose) 15 gm Q15M PRN BUCCAL DECREASED GLUCOSE; Start 08/23/18 at 15:00 Tramadol HCl (Ultram) 50 mg Q6H PRN PO MODERATE PAIN LEVEL 4-6 Last administ ered on 08/27/18at 00:10; Admin Dose 50 MG; Start 08/23/18 at 21:00 Pantoprazole (Protonix Iv) 40 mg BID IV Last administered on 08/30/18 09:08; Admin Dose 40 MG; Start 08/24/18 at 21:00 Epoetin Sean (Epogen (Esrd)) 10,000 units TuThSa@17 SC Last administered on 08/28/18 17:21; Admin Dose 10,000 UNITS; Start 08/24/18 at 17:00 Lactulose (Enulose) 20 gm QHS PO Last administered on 08/29/18 20:06; Admin Dose 20 GM; Start 08/25/18 at 21:00 Propranolol HCl (Inderal) 10 mg BID PO Last administered on 08/30/18 09:10; Admin Dose 10 MG; Start 08/26/18 at 21:00 Lisinopril (Zestril) 20 mg DAILY PO Last administered on 08/30/18 09:10; Admin Dose 20 MG; Start 08/26/18 at 14:00 Hydralazine HCl (Apresoline) 25 mg Q6H PRN PO ELEVATED BLOOD PRESSURE Last administered on 08/26/18 20:34; Admin Dose 25 MG; Start 08/26/18 at 14:00 Simethicone (Mylicon) 80 mg TID PRN GTB DISTENSION/GAS/BLOATING; Start 08/26/18 at 14:30 Gabapentin (Neurontin) 100 mg TID PO Last administered on 08/30/18 09:09; A dmin Dose 100 MG; Start 08/26/18 at 21:00 Hydromorphone HCl (Dilaudid) 1 mg Q4H PRN IV SEVERE PAIN LEVEL 7-10 Last administered on 08/27/18 15:39; Admin Dose 1 MG; Start 08/27/18 at 10:00 Insulin Aspart (Novolog Insulin Pen) NOVOLOG *MODERATE* ALGORITHM WITH MEALS BEDTIME SC Last administered on 08/30/18 08:13; Admin Dose 4 UNIT; Start 08/29/18 at 08:00 Insulin Glargine (Lantus) 10 units DAILY@2000 SC Last administered on 08/29/18 20:16; Admin Dose 10 UNITS; Start 08/29/18 at 20:00 Lubiprostone (Amitiza) 24 mcg BID PO ; Start 08/30/18 at 09:30 Polyethylene Glycol (Miralax) 17 gm DAILY PO Last administered on 08/30/18at 09:08; Admin Dose 17 GM; Start 08/30/18 at 09:00 ANA MELENDEZ MD Aug 30, 2018 09:57
[2018-08-30] MEDS: LUBIPROSTONE 24 MCG CAP PO SCH ×2 (12:14→21:20)
[2018-08-30] MEDS ORDERED: LISI-471 PO (13:37)
[2018-08-30] MEDS ORDERED: LUBI24CA7 PO (13:37)
[2018-08-30] MEDS ORDERED: GABA100C14 PO (13:37)
--- NOTE | 2018-08-30 14:16 | PN ---
DATE: 08/30/2018 SUBJECTIVE: The patient complains of generalized weakness. Continues with dysphagia. Denies any he adaches. PHYSICAL EXAMINATION: GENERAL: The patient is in no acute distress. VITAL SIGNS: Blood pressure 137/62, O2 sats 97%, temperature 98.6. HEENT: Head is normocephalic. Mild pallor with cyanosis. CHEST: Clinically clear. ABDOMEN: Soft, nontender, no hepatosplenomegaly. EXTREMITIES: No edema. NEUROLOGIC: The patient moves both upper and lower extremities well. LABORATORY DATA: Hematocrit 26.9, platelet count is 58,000. Glucose 176. IMPRESSION: 1. End-stage renal disease on maintenance hemodialysis. 2. Anemia due to chronic gastrointestinal bleed and chronic disease. The patient was started on Epo gen. 3. Cirrhosis and portal hypertension. LFTs have improved. 4. History of mitral regurgitation, status post mitral valve clipping. 5. Hypertension. 6. Diabetes type 2, well controlled. 7. Headache, resolved. 8. Incidental small infarct in the left frontal cortex. PLAN: We will continue recommendations per Dr. Arteaga and Dr. Da Silva and initiate discharge plan ovidio. The patient is not a candidate for anticoagulant given the history of GI bleed. We will discu ss it with MDs regarding same. Dictated By: JENY MORA MD, SR/PEG Conf#: [id number] DID#: [id number]
[2018-08-30] MEDS ORDERED: ONDANSETRON 4 MG INJ IV PRN (15:30)
[2018-08-30] MEDS ORDERED: traMADol 50 MG TAB GTB PRN (15:30)
[2018-08-30] MEDS ORDERED: ACETAMINOPHEN 325 MG TAB PO PRN (15:30)
[2018-08-30] MEDS ORDERED: HYDROmorphONE 1 MG/ML SYG IV PRN (15:30)
[2018-08-30] MEDS: INSULIN GLARGINE [LANTus] (100 UNITS/ML) SYG SC SCH (21:17)
[2018-08-30] MEDS: ESCITALOPRAM 10 MG TAB PO SCH (21:20)
[2018-08-30] MEDS: LACTULOSE 30ML CUP PO SCH (21:20)
[2018-08-31] VITALS (19 sets, daily range): BP systolic 92–187; BP diastolic 44–86; PULSE 52–59; RESP 16–20
[2018-08-31] MEDS: ACCU-CHEK XX SCH (02:00)
[2018-08-31] MEDS: INSULIN ASPART [NOVOLOG] 3 ML PEN SC SCH ×2 (08:08→11:41)
--- NOTE | 2018-08-31 08:49 | CONS ---
Assessment/Plan Assessment/Plan Hospital Course (Demo Recall) 63 yo male with ESLD and ESRD with recurrent GI bleeds presented to ER with symptomatic anemia 1. Dysphagia after JACQUE at [facility] -Improved but intermittently, advised pt that he should eat slowly, encourage liquids 2. Symptomatic anemia, acute on chronic -stable 3. Hematuria per -resolved 4. Liver cirrhosis with portal hypertension and slightly elevated ammonia -ammonia 40-> -Increase to lactulose 20 mg TID 5. ESRD 6. 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 Mitral regurgitation s/p mitral valve clipping 8. Obesity 9. 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 Pancytopenia 11. Persistent Headache with intermittent epistaxis x 2weeks 12. Acute infarct noted on MRI 13. Acute UTI -Pt is not on antibiotic PLAN: Lactulose 20 mg TID Continue with PPI BID Monitor HH and for acute GI bleeding Pt examined and plan of care discussed with Dr. Arteaga Consultation Date/Type/Reason Admit Date/Time Aug 23, 2018 at 09:16 Initial Consult Date Date/Time of Note DATE: 08/31/18 TIME: 08:47 24 HR Interval Summary Free Text/Dictation Pt was getting ready to be discharged yesterday, was having a hard time swallowing his food and vomited the food up and had diarrhea. denies any coffee ground, hematemesis, hematochezia or melena. Later in the evening she said he was better with no dysphagia. He is receiving HD. Exam/Review of Systems Exam Vitals Vital Signs Date Temp Pulse Resp B/P (MAP) Pulse Ox O2 O2 Flow FiO2 Time Delivery Rate 08/31/18 59 18 157/75 98 Room Air 08:13 (102) 58 08/31/18 98.0 08:08 Intake and Output 08/30/18 08/30/18 08/31/18 1414:59 22:59 06:59 IntakeIntake Total 360 ml 540 ml OutputOutput Total 300 ml BalanceBalance 360 ml 240 ml Constitutional: alert, oriented Psych: no complaints Head: normocephalic Eyes: PERRL, icteric ENMT: nl lips & teeth Respiratory: clear to auscultation Cardiovascular: regular rate and rhythm Gastrointestinal: soft, non-tender Musculoskeletal: nl gait and stance 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: nl mental status Results Result Diagram: 08/30/18 1047 08/29/18 0451 Results 24hrs Laboratory Tests Test 08/30/18 10:47 08/30/18 12:12 08/30/18 17:49 08/30/18 21:13 White Blood Count 3.2 L Red Blood Count 2.85 L Hemoglobin 8.7 L Hematocrit 26.9 L Mean Corpuscular 94.4 Volume Mean Corpuscular 30.5 Hemoglobin Mean Corpuscular 32.3 Hemoglobin Concen t Red Cell 17.9 H Distribution Width Platelet Count 58 #L Mean Platelet 12.1 H Volume Immature 0.300 Granulocytes % Neutrophils % 61.8 Lymphocytes % 17.4 Monocytes % 14.0 H Eosinophils % 6.2 Basophils % 0.3 Nucleated Red 0.0 Blood Cells % Immature 0.010 Granulocytes # Neutrophils # 2.0 Lymphocytes # 0.6 L Monocytes # 0.5 Eosinophils # 0.2 Basophils # 0.0 Nucleated Red 0.0 Blood Cells # Bedside Glucose 176 190 306 H Test 08/31/18 01:50 08/31/18 05:50 08/31/18 07:28 08/31/18 08:05 Bedside Glucose 187 167 Ammonia 48 H Lab Scanned BLOOD TRANSFUSIO Report N Medications Medication Current Medications Cholecalciferol (Vitamin D) 2,000 unit DAILY PO Last administered on 08/30/18at 09:09; Admin Dose 2,000 UNIT; Start 08/24/18 at 09:00 Escitalopram Oxalate (Lexapro) 10 mg QHS PO Last administered on 08/30/18at 21:20; Admin Dose 10 MG; Start 08/23/18 at 21:00 Furosemide (Lasix) 40 mg DAILY PO Last administered on 08/30/18at 09:10; Admin Dose 40 MG; Start 08/24/18 at 09:00 Sucralfate (Carafate Susp) 1 gm TID PO Last administered on 08/30/18at 21:20; Admin Dose 1 GM; Start 08/23/18 at 21:00 Diagnostic Test (Pha) (Accu-Chek) 1 ea 02 XX Last administered on 08/30/18at 02:18; Admin Dose 1 EA; Start 08/24/18 at 02:00 Miscellaneous Information 1 ea NOTE XX ; Start 08/23/18 at 15:00 Glucose (Glutose) 15 gm Q15M PRN PO DECREASED GLUCOSE; Start 08/23/18 at 15:00 Glucose (Glutose) 22.5 gm Q15M PRN PO DECREASED GLUCOSE; Start 08/23/18 at 15:00 Dextrose (D50w Syringe) 25 ml Q15M PRN IV DECREASED GLUCOSE; Start 08/23/18 at 15:00 Dextrose (D50w Syringe) 50 ml Q15M PRN IV DECREASED GLUCOSE; Start 08/23/18 at 15:00 Glucagon (Glucagen) 1 mg Q15M PRN IM DECREASED GLUCOSE; Start 08/23/18 at 15:00 Glucose (Glutose) 15 gm Q15M PRN BUCCAL DECREASED GLUCOSE; Start 08/23/18 at 15:00 Epoetin Sean (Epogen (Esrd)) 10,000 units TuThSa@17 SC Last administered on 08/28/18at 17:21; Admin Dose 10,000 UNITS; Start 08/24/18 at 17:00 Lactulose (Enulose) 20 gm QHS PO Last administered on 08/30/18at 21:20; Admin Dose 20 GM; Start 08/25/18 at 21:00 Propranolol HCl (Inderal) 10 mg BID PO Last administered on 08/30/18 09:10; Admin Dose 10 MG; Start 08/26/18 at 21:00 Lisinopril (Zestril) 20 mg DAILY PO Last administered on 08/30/18 09:10; Admin Dose 20 MG; Start 08/26/18 at 14:00 Gabapentin (Neurontin) 100 mg TID PO Last administered on 08/30/18 21:20; Admin Dose 100 MG; Start 08/26/18 at 21:00 Insulin Aspart (Novolog Insulin Pen) NOVOLOG *MODERATE* ALGORITHM WITH MEALS BEDTIME SC Last administered on 08/31/18 08:08; Admin Dose 2 UNIT; Start 08/29/18 at 08:00 Insulin Glargine (Lantus) 10 units DAILY@2000 SC Last administered on 08/30/18 21:17; Admin Dose 10 UNITS; Start 08/29/18 at 20:00 Lubiprostone (Amitiza) 24 mcg BID PO Last administered on 08/30/18at 21:20; Admin Dose 24 MCG; Start 08/30/18 at 09:30 Polyethylene Glycol (Miralax) 17 gm DAILY PO Last administered on 08/30/18at 09:08; Admin Dose 17 GM; Start 08/30/18 at 09:00 Hydromorphone HCl (Dilaudid) 1 mg Q4H PRN IV SEVERE PAIN LEVEL 7-10 Last administered on 08/30/18at 15:50; Admin Dose 1 MG; Start 08/30/18 at 15:30 Ondansetron HCl (Zofran Inj) 4 mg Q6H PRN IV NAUSEA AND/OR VOMITING; Start 08/30/18 at 15:30 Tramadol HCl (Ultram) 50 mg Q6H PRN GTB MODERATE PAIN LEVEL 4-6; Start 08/30/18 at 15:30 Acetaminophen (Tylenol Tab) 650 mg Q6H PRN PO MILD PAIN(1-3)OR ELEVATED TEMP; Start 08/30/18 at 15:30 Hydralazine HCl (Apresoline) 25 mg Q6H PRN PO FOR SBP > THAN 170; Start at 15:30 URSULA DANIEL Aug 31, 2018 08:49
[2018-08-31] MEDS: LISINOPRIL 20 MG TAB PO SCH (09:00)
[2018-08-31] MEDS: FUROSEMIDE 40 MG TAB PO SCH (09:00)
[2018-08-31] MEDS: SUCRALFATE (100 MG/ML) 10ML CUP PO SCH (09:00)
[2018-08-31] MEDS ORDERED: LACTULOSE 30ML CUP PO SCH (09:00)
[2018-08-31] MEDS: GABAPENTIN 100 MG CAP PO SCH (09:00)
[2018-08-31] MEDS: PROPRANOLOL 10 MG TAB PO SCH (09:00)
--- NOTE | 2018-08-31 10:56 | CONS ---
Assessment/Plan Assessment/Plan Hospital Course (Demo Recall) 1. End-stage renal disease on maintenance hemodialysis. He usually dialyzes TTS and is finishing his dialysis treatment for today. He could be discharged to home today. He will resume his routine hemodialysis treatments at the [facility] unit on 09/02/2018. 2. Anemia due to GI bleeding and chronic kidney disease.. I started him on Epogen . 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 Dr. Arteaga cauterized those lesions. 3 Cirrhosis of the liver. He is being prepared for a liver/kidney transplant at [facility]. 4 History of mitral valve regurgitation status post mitral valve clipping 5. Hypertension 6. Type 2 diabetes mellitus 7. A persistent headache with some right visual impairment. MRI of brain shows a small infarct in the left frontal cortex which could be new. 8. Thrombocytopenia . He has had some epistaxis intermittently. Consultation Date/Type/Reason Admit Date/Time Aug 23, 2018 at 09:16 Initial Consult Date Type of Consult Nephrology Date/Time of Note DATE: 08/31/18 TIME: 10:50 24 HR Interval Summary Free Text/Dictation This patient is being seen in nephrologic follow-up. He is awake and alert. He is just finishing a hemodialysis treatment. He had some nausea with vomiting yesterday which has resolved. Constitutional: no complaints, improved Exam/Review of Systems Exam Vitals Vital Signs Date Temp Pulse Resp B/P (MAP) Pulse Ox O2 O2 Flow FiO2 Time Delivery Rate 08/31/18 57 10:30 08/31/18 18 157/75 98 Room Air 08:13 (102) 08/31/18 98.0 08:08 Intake and Output 08/30/18 08/30/18 08/31/18 1515:00 23:00 07:00 IntakeIntake Total 360 ml 540 ml OutputOutput Total 300 ml BalanceBalance 360 ml 240 ml Constitutional: alert, oriented, frail, obese Respiratory: clear to auscultation, normal air movement Cardiovascular: regular rate and rhythm Gastrointestinal: soft, non-tender Musculoskeletal: nl extremities to inspection Results Result Diagram: 08/30/18 1047 08/29/18 0451 Results 24hrs Laboratory Tests Test 08/30/18 12:12 08/30/18 17:49 08/30/18 21:13 08/31/18 01:50 Bedside Glucose 176 190 306 H 187 Test 08/31/18 05:50 08/31/18 07:28 08/31/18 08:05 Ammonia 48 H Lab Scanned BLOOD TRANSFUSIO Report N Bedside Glucose 167 Medications Medication Current Medications Cholecalciferol (Vitamin D) 2,000 unit DAILY PO Last administered on 08/30/18at 09:09; Admin Dose 2,000 UNIT; Start 08/24/18 at 09:00 Escitalopram Oxalate (Lexapro) 10 mg QHS PO Last administered on 08/30/18at 21:20; Admin Dose 10 MG; Start 08/23/18 at 21:00 Furosemide (Lasix) 40 mg DAILY PO Last administered on 08/30/18at 09:10; Admin Dose 40 MG; Start 08/24/18 at 09:00 Sucralfate (Carafate Susp) 1 gm TID PO Last administered on 08/30/18at 21:20; Admin Dose 1 GM; Start 08/23/18 at 21:00 Diagnostic Test (Pha) (Accu-Chek) 1 ea 02 XX Last administered on 08/30/18at 02:18; Admin Dose 1 EA; Start 08/24/18 at 02:00 Miscellaneous Information 1 ea NOTE XX ; Start 08/23/18 at 15:00 Glucose (Glutose) 15 gm Q15M PRN PO DECREASED GLUCOSE; Start 08/23/18 at 15:00 Glucose (Glutose) 22.5 gm Q15M PRN PO DECREASED GLUCOSE; Start 08/23/18 at 15:00 Dextrose (D50w Syringe) 25 ml Q15M PRN IV DECREASED GLUCOSE; Start 08/23/18 at 15:00 Dextrose (D50w Syringe) 50 ml Q15M PRN IV DECREASED GLUCOSE; Start 08/23/18 at 15:00 Glucagon (Glucagen) 1 mg Q15M PRN IM DECREASED GLUCOSE; Start 08/23/18 at 15:00 Glucose (Glutose) 15 gm Q15M PRN BUCCAL DECREASED GLUCOSE; Start 08/23/18 at 15:00 Epoetin Sean (Epogen (Esrd)) 10,000 units TuThSa@17 SC Last administered on 08/28/18at 17:21; Admin Dose 10,000 UNITS; Start 08/24/18 at 17:00 Propranolol HCl (Inderal) 10 mg BID PO Last administered on 08/30/18 09:10; Admin Dose 10 MG; Start 08/26/18 at 21:00 Lisinopril (Zestril) 20 mg DAILY PO Last administered on 08/30/18 09:10; Admin Dose 20 MG; Start 08/26/18 at 14:00 Gabapentin (Neurontin) 100 mg TID PO Last administered on 08/30/18 21:20; Admin Dose 100 MG; Start 08/26/18 at 21:00 Insulin Aspart (Novolog Insulin Pen) NOVOLOG *MODERATE* ALGORITHM WITH MEALS BEDTIME SC Last administered on 08/31/18 08:08; Admin Dose 2 UNIT; Start 08/29/18 at 08:00 Insulin Glargine (Lantus) 10 units DAILY@2000 SC Last administered on 08/30/18 21:17; Admin Dose 10 UNITS; Start 08/29/18 at 20:00 Lubiprostone (Amitiza) 24 mcg BID PO Last administered on 08/30/18 21:20; Admin Dose 24 MCG; Start 08/30/18 at 09:30 Polyethylene Glycol (Miralax) 17 gm DAILY PO Last administered on 08/30/18 09: 08; Admin Dose 17 GM; Start 08/30/18 at 09:00 Hydromorphone HCl (Dilaudid) 1 mg Q4H PRN IV SEVERE PAIN LEVEL 7-10 Last administered on 08/30/18at 15:50; Admin Dose 1 MG; Start 08/30/18 at 15:30 Ondansetron HCl (Zofran Inj) 4 mg Q6H PRN IV NAUSEA AND/OR VOMITING; Start 08/30/18 at 15:30 Tramadol HCl (Ultram) 50 mg Q6H PRN GTB MODERATE PAIN LEVEL 4-6; Start 08/30/18 at 15:30 Acetaminophen (Tylenol Tab) 650 mg Q6H PRN PO MILD PAIN(1-3)OR ELEVATED TEMP; Start 08/30/18 at 15:30 Hydralazine HCl (Apresoline) 25 mg Q6H PRN PO FOR SBP > THAN 170; Start 08/30/18 at 15:30 Lactulose (Enulose) 20 gm TID PO ; Start 08/31/18 at 09:00 ANA MELENDEZ MD Aug 31, 2018 10:56
[2018-08-31] MEDS: LUBIPROSTONE 24 MCG CAP PO SCH (11:21)
[2018-08-31] MEDS: POLYETHYLENE GLYCOL 17 GM PACKET PO SCH (11:21)
[2018-08-31] MEDS: CHOLECALCIFEROL 1,000 UNIT TAB PO SCH (11:42)
== END 2018-08-31 13:24 | disposition home or self-care (01) | DRG 377 ==
LOC: E/R 07:30 → ICU 09:16 → 6WM 08-24 19:12
PROVIDERS: ADMIT Internal Medicine; ATTEND Internal Medicine
PROC: 30233N1 Transfusion of Nonautologous Red Blood Cells into Peripheral Vein, Percutaneous Approach (ICD-10-PCS; principal; 2018-08-23)
PROC: 5A1D70Z Performance of Urinary Filtration, Intermittent, Less than 6 Hours Per Day (ICD-10-PCS; 2018-08-23)
PROC: 0W3P8ZZ Control Bleeding in Gastrointestinal Tract, Via Natural or Artificial Opening Endoscopic (ICD-10-PCS; 2018-08-24)
DX: K31.811 Angiodysplasia of stomach and duodenum with bleeding (principal); N18.6 End stage renal disease; I63.9 Cerebral infarction, unspecified; I13.2 Hypertensive heart and chronic kidney disease with heart failure and with stage 5 chronic kidney disease, or end stage renal disease; K76.6 Portal hypertension; D61.818 Other pancytopenia; I85.10 Secondary esophageal varices without bleeding; R13.10 Dysphagia, unspecified; I50.9 Heart failure, unspecified; Z99.2 Dependence on renal dialysis; Z95.4 Presence of other heart-valve replacement; D63.1 Anemia in chronic kidney disease; E66.01 Morbid (severe) obesity due to excess calories; Z68.37 Body mass index [BMI] 37.0-37.9, adult; K74.60 Unspecified cirrhosis of liver; B19.20 Unspecified viral hepatitis C without hepatic coma; F32.9 Major depressive disorder, single episode, unspecified; E11.22 Type 2 diabetes mellitus with diabetic chronic kidney disease; D50.0 Iron deficiency anemia secondary to blood loss (chronic); E11.40 Type 2 diabetes mellitus with diabetic neuropathy, unspecified
CPT/HCPCS: 36415; 36430; 70450; 70551; 71045; 80048; 80053; 80061; 80076; 82140; 82550; 82553; 82962; 83735; 84100; 84443; 84484; 85014; 85018; 85025; 85610; 85730; 86850; 86900; 86901; 86920; 87081; 87086; 87340; 90935; 93005; 93306; 96374; 96375; 96376; C9113; J1170; J1815; J2270; J2405; J3010; J7040; J7042; P9016; Q4081

== ENCOUNTER → 2018-10-22 | Outpatient (CLI) | payer BC ==
[~2018-10-22] MED LIST changes: +CARAS PO; +CHOL100062 PO; +GABA100C14 PO; +LISI-471 PO; +LUBI24CA7 PO
== END | disposition home or self-care (01) ==
LOC: LAB 07:30
PROVIDERS: ATTEND Internal Medicine
DX: N18.9 Chronic kidney disease, unspecified (principal); D68.9 Coagulation defect, unspecified; B19.20 Unspecified viral hepatitis C without hepatic coma
CPT/HCPCS: 80053; 85025; 85610; 85730; 86803

== ENCOUNTER → 2018-11-22 | Outpatient (CLI) | payer BC | END | disposition home or self-care (01) | LOC: LAB 17:09 | PROVIDERS: ATTEND Internal Medicine | DX: D64.9 Anemia, unspecified (principal); N18.9 Chronic kidney disease, unspecified; K74.60 Unspecified cirrhosis of liver | CPT/HCPCS: 80053; 85025 ==

== ENCOUNTER 2019-01-01 15:59 | Inpatient (IN) | payer BC ==
[~2019-01-01] VITALS: Ht 182.9 cm; Wt 127.3 kg
[2019-01-01] MEDS ORDERED: SODIUM CHLORIDE 0.9% 1L BAG IV* STA (17:06)
[2019-01-01] MEDS ORDERED: LEVOFLOXACIN 750MG/D5W (PMX) 150 ML IVPB STA (17:06)
--- NOTE | 2019-01-01 17:09 | ERD ---
ER Documentation Chief Complaint Chief Complaint SENT FROM DIALYSIS FOR FEVER , COUGH , LOW H& H HPI 63-year-old male with a history of hypertension, diabetes, ESRD on hemodialysis sent from his dialysis center by ambulance for fever and cough. He did not complete his dialysis prior to arrival. He was also told that he had anemia and this would need to be further evaluated. He was given EPO as well. Patient states that he has had shortness of breath and cough for the past 3 days with associated dizziness, generalized weakness, fevers, and headaches. He denies any associated chest pain. No recent travel or other exposures. ROS All systems reviewed and are negative except as per history of present illness. Medications Home Meds Reported Medications Bumetanide* (Bumetanide*) 2 Mg Tablet, 2 MG PO DAILY, TAB 01/01/19 Propranolol Hcl* (Propranolol Hcl*) 10 Mg Tablet, 10 MG PO TID, TAB 01/01/19 Cholecalciferol* (Vitamin D3*) 1,000 Unit Tablet, 2000 UNIT PO DAILY, TAB 08/23/18 Sucralfate* (Carafate*) 1 Gm/10 Ml Susp, 1 GM PO TID, EA 08/23/18 Insulin Glargine* (Lantus*) 100 Unit/Ml Soln, 30 UNIT SC QHS, #1 VIAL 11/23/17 Pantoprazole* (Protonix*) 40 Mg Tablet.dr, 40 MG PO BID, TAB 10/26/17 Escitalopram Oxalate* (Lexapro*) 10 Mg Tablet, 10 MG PO QHS, TAB 10/26/17 Lactulose* (Lactulose*) 20 Gm/30 Ml Solution, 20 GM PO QHS, ML 10/26/17 Simvastatin* (Zocor*) 20 Mg Tablet, 20 MG PO QHS, TAB 10/26/17 Discontinued Reported Medications Furosemide* (Furosemide*) 40 Mg Tablet, 40 MG PO DAILY, TAB 11/23/17 Propranolol Hcl* (Propranolol Hcl*) 10 Mg Tablet, 10 MG PO BID, TAB 10/26/17 Discontinued Scripts Lubiprostone* (Amitiza*) 24 Mcg Capsule, 24 MCG PO BID for 30 Days, #60 CAP Prov:JENY BRICE MD 08/30/18 Gabapentin* (Gabapentin*) 100 Mg Capsule, 100 MG PO TID for 30 Days, #90 CAP Prov:JENY BRICE MD 08/30/18 Lisinopril* (Lisinopril*) 20 Mg Tablet, 20 MG PO DAILY for 30 Days, #30 TAB Prov:JENY BRICE MD 08/30/18 Allergies Allergies: Coded Allergies: ceftriaxone (Unverified Allergy, Intermediate, RASH, 01/01/19) per Mess notes 02/02/17 - rash with rocephin PMhx/Soc History of Surgery: Yes (MITRAL VALVE REPAIR 08/04/18, ) Anesthesia Reaction: No Hx 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 Disorder: No Hx Respiratory Disorders: No Hx Cardiac Disorders: Yes (HTN, HLD ) Hx Psychiatric Problems: No Hx Miscellaneous Medical Probl: Yes (AVM/HEMORRHOID BLEED, diabetes, hyp ertension, hep C cirrhosis, ESRD on hemodialysis) Hx Alcohol Use: No Hx Substance Use: No Hx Tobacco Use: No FmHx Family History: No diabetes Physical Exam Vitals Vital Signs Date Temp Pulse Resp B/P (MAP) Pulse Ox O2 O2 Flow FiO2 Time Delivery Rate 01/01/19 98.6 63 16 132/66 95 Room Air 18:22 (88) 01/01/19 99.4 67 18 119/56 96 16:02 (77) Physical Exam Const: No acute distress, nontoxic Head: Atraumatic Eyes: Normal Conjunctiva ENT: Normal External Ears, Nose and Mouth. Neck: Full range of motion. No meningismus. Resp: Clear to auscultation bilaterally. Mild expiratory wheezing in all lung ramos Cardio: Regular rate and rhythm, no murmurs Abd: Soft, non tender, non distended. Normal bowel sounds Skin: No petechiae or rashes Back: No midline or flank tenderness Ext: No cyanosis, trace bilateral lower extremity edema Neur: Awake and alert Psych: Normal Mood and Affect Result Diagram: 01/01/19 1723 01/01/19 1723 Results 24 hrs Laboratory Tests Test 01/01/19 17:05 01/01/19 17:23 01/01/19 17:24 Urine Color KAYLAN Urine Clarity SLIGHTLY CLOUDY Urine pH 5.0 Urine Specific [place] 1.016 Urine Ketones NEGATIVE mg/dL Urine Nitrite NEGATIVE mg/dL Urine Bilirubin NEGATIVE mg/dL Urine Urobilinogen 2+ mg/dL Urine Leukocyte Esterase NEGATIVE Roge/ul Urine Microscopic RBC 1 /HPF Urine Microscopic WBC 1 /HPF Urine Hemoglobin 2+ mg/dL Urine Glucose NEGATIVE mg/dL Urine Total Protein 2+ mg/dl White Blood Count 3.2 10^3/ul Red Blood Count 2.31 10^6/ul Hemoglobin 7.3 g/dl Hematocrit 23.7 % Mean Corpuscular Volume 102.6 fl Mean Corpuscular Hemoglobin 31.6 pg Mean Corpuscular 30.8 g/dl Hemoglobin Concent Red Cell Distribution Width 17.1 % Platelet Count 65 10^3/UL Mean Platelet Volume 11.2 fl Immature Granulocytes % 0.300 % Neutrophils % % Lymphocytes % % Monocytes % % Eosinophils % % Basophils % % Nucleated Red Blood Cells % 0.0 /100WBC Immature Granulocytes # 0.010 10^3/ul Neutrophils # 10^3/ul Lymphocytes # 10^3/ul Monocytes # 10^3/ul Eosinophils # 10^3/ul Basophils # 10^3/ul Nucleated Red Blood Cells # 10^3/ul Prothrombin Time 14.0 Sec Prothrombin Time Ratio 1.1 INR International 1.07 Normalized Ratio Activated Partial Thromboplast 43.7 Sec Time Sodium Level 137 mmol/L Potassium Level 3.8 mmol/L Chloride Level 97 mmol/L Carbon Dioxide Level 31 mmol/L Anion Gap 9 Blood Urea Nitrogen 49 mg/dl Creatinine 4.04 mg/dl Est Glomerular Filtrat 15 mL/min Rate mL/min Glucose Level 116 mg/dl Calcium Level 7.5 mg/dl Total Bilirubin 0.9 mg/dl Direct Bilirubin 0.00 mg/dl Indirect Bilirubin 0.9 mg/dl Aspartate Amino 76 IU/L Transf (AST/SGOT) Alanine 34 IU/L Aminotransferase (ALT/SGPT) Alkaline Phosphatase 109 IU/L Troponin I 0.146 ng/ml Total Protein 7.3 g/dl Albumin 3.4 g/dl Globulin 3.90 g/dl Albumin/Globulin Ratio 0.87 POC Venous Lactate 1.3 mmol/L Current Medications Medications Dose Sig/Irasema Start Time Status Last (Trade) Ordered Route PRN Stop Time Admin Dose Reason Admin Sodium 2,400 ml BOLUS OVER 2 01/01/19 DC Chloride HOURS STAT 17:06 (NS) IV* 01/01/19 17:07 150 ml @ ONCE STAT 01/01/19 DC 01/01/19 Levofloxacin/ 100 mls/hr IVPB 17:06 18:15 Dextrose 01/01/19 18:35 Albuterol 5 mg ONCE STAT 01/01/19 DC (Proventil NEB 18:02 0.083% (Neb)) 01/01/19 18:04 Ondansetron 4 mg ER BRIDGE 01/01/19 HCl (Zofran PRN IV 19:00 Inj) NAUSEA/VOMITI 01/02/19 18:59 NG 650 mg ER BRIDGE 01/01/19 Acetaminophen PRN PO 19:00 (Tylenol .MILD PAIN 01/02/19 18:59 Tab) 1-3 OR TEMP Procedures/MDM EMERGENT LABS AND DIAGNOSTIC STUDIES: Lab Results above were reviewed and interpreted by me. CBC: e/o chronic pancytopenia CMP: e/o chronic renal failure. No evidence of clinically significant electrolyte abnormality, acidosis, hypoglycemia Troponin elevated at 0.146 Lactate within normal limits without evidence of sepsis or tissue hypoperfusion UA: no evidence of infection 12-lead EKG was interpreted by Rahul Zarate MD: Normal Sinus Rhythm with ventricular rate of 63 beats per minute Normal axis Prolonged QTC at [address] or T wave changes suggestive of acute ischemia or STEMI. Radiology Results as interpreted by Radiology below were reviewed by Jun Zarate MD: Chest x-ray: no acute abnormalities Initial Nursing notes reviewed. Previous Medical Records requested via the Electronic Health Record. EMERGENCY DEPARTMENT COURSE / MEDICAL DECISION MAKING: Patient initially presented with complaints of fever, generalized weakness, and shortness of breath with cough. His lactate is within normal limits. He has chronic pancytopenia per his records which is at his baseline. His hemoglobin is above 7, so I do not feel he needs an emergent transfusion. Chest x-ray does not show any acute abnormalities. Work-up did however show an elevated troponin, likely secondary to his renal disease. However I cannot rule out ACS. I spoke with , the patient's primary care doctor, who agreed to admit the patient for ACS rule out. At this time there is no evidence of a bacterial respiratory tract infection and I do not suspect severe sepsis or septic shock. Patient did receive 1 dose of antibiotics in the ER upon arrival. However it seems that this does not need to be continued, but I will leave this up to the primary care doctor. Accepting Care Team: Current data and ongoing care discussed. Time: Time of admission Primary Provider: Dr Brice Departure Diagnosis: Primary Impression: Shortness of breath Additional Impressions: Acute bronchitis Bronchitis organism: unspecified organism Qualified Codes: J20.9 - Acute bronchitis, unspecified Chronic anemia Pancytopenia CKD (chronic kidney disease) Chronic kidney disease stage: unspecified stage Qualified Codes: N18.9 - Chronic kidney disease, unspecified Elevated troponin Condition: KIRSTIE Whipple MD Jan 01, 2019 17:09
[2019-01-01] MEDS ORDERED: PROP10TA6 PO (17:55)
[2019-01-01] MEDS ORDERED: BUME2TAB2 PO (17:56)
[2019-01-01] MEDS ORDERED: ALBUTEROL 0.083% (NEB) 2.5 MG/3 ML AMP NEB STA (18:02)
[2019-01-01] MEDS ORDERED: ACETAMINOPHEN 325 MG TAB PO PRN ×2 (19:00→23:30)
[2019-01-01] MEDS ORDERED: ASPIRIN 81 MG TAB PO ONE (19:00)
[2019-01-01] MEDS ORDERED: ONDANSETRON 4 MG INJ IV PRN (19:00)
[2019-01-01 22:17] VITALS: PULSE 72
[2019-01-01 22:20] VITALS: BP 171/79; PULSE 70; RESP 20
[2019-01-01 22:30] VITALS: Ht 182.9 cm; Wt 127.3 kg
[2019-01-01] MEDS ORDERED: GLUCOSE GEL 15 GRAM TUBE BUCCAL PRN (23:30)
[2019-01-01] MEDS ORDERED: GLUCOSE GEL 15 GRAM TUBE PO PRN ×2 (23:30)
[2019-01-01] MEDS ORDERED: DEXTROSE 50% 50 ML SYRINGE IV PRN ×2 (23:30)
[2019-01-01] MEDS ORDERED: GLUCAGON 1 MG INJ IM PRN (23:30)
[2019-01-01] MEDS ORDERED: GUAIFENESIN/DM 5ML CUP PO PRN (23:30)
[2019-01-02] VITALS (26 sets, daily range): BP systolic 132–177; BP diastolic 63–84; PULSE 63–84; RESP 17–18
[2019-01-02] MEDS: INSULIN GLARGINE [LANTus] (100 UNITS/ML) SYG SC SCH ×2 (01:16→20:23)
[2019-01-02] MEDS: ACCU-CHEK XX SCH (01:53)
[2019-01-02] MEDS: PANTOPRAZOLE (EC) 40 MG TAB PO SCH (06:10)
[2019-01-02] MEDS: INSULIN ASPART [NOVOLOG] 3 ML PEN SC SCH ×4 (08:00→20:12)
[2019-01-02] MEDS ORDERED: AMLODIPINE 5 MG TAB PO SCH (09:00)
[2019-01-02] MEDS: PROPRANOLOL 10 MG TAB PO SCH ×4 (09:00→20:17)
[2019-01-02] MEDS ORDERED: PROPRANOLOL 10 MG TAB PO SCH (09:00)
[2019-01-02] MEDS: AMLODIPINE 5 MG TAB PO SCH ×2 (09:00)
[2019-01-02] MEDS: SUCRALFATE (100 MG/ML) 10ML CUP PO SCH ×3 (09:04→20:16)
[2019-01-02] MEDS: CHOLECALCIFEROL 1,000 UNIT TAB PO SCH (09:05)
--- NOTE | 2019-01-02 10:42 | CONS ---
Assessment/Plan Assessment/Plan Problems: (1) ESRD (end stage renal disease) on dialysis Status: Chronic Comment: will plan for HD today with 1 U PRBC, as did not get his routine HD yesterday (2) Hepatitis C Comment: w cirrhosis.. stable (3) HTN (hypertension) Comment: good control currently (4) Pancytopenia Status: Acute Comment: baseline (5) Chronic anemia Status: Acute Comment: exacerbated by no EPO x weeks... NO evidence for any recurrent GIB Consultation Date/Type/Reason Admit Date/Time Jan 01, 2019 at 18:39 Type of Consult Nephrology Reason for Consultation ESRD care and anemia Requesting Provider: JENY MORA MD Date/Time of Note DATE: 01/02/19 TIME: 10:31 Hx of Present Illness This pt has ESRD and dialyzes q TTS at [facility]. His co morbidities include HepC w Cirrhosis, rec LGIB, HTN, DM and valvular HD s/p MC clipping. He was in [place] x 3 weeks, returning on 12/29/18. He did NOT get his regular EPO while there. At dialysis yesterday, he apparently developed a fever, as high as 106 (?), and was advised to go to the ER. He only received maybe 30 min of HD. In the ER here, he was hemodynamically, stable, with a normal lactate and nl CXR, was given 1 dose of Levaquin, and admitted. Urine was clear with no pyuria. Currently he feels well x some weakness. No cp, abd pain, melena, BRBPR or hematemesis. He was been afeb since admission, and was noted 99.4 in the ER yesterday. Constitutional: improved Eyes: no complaints ENT: no complaints Respiratory: cough (slight and non productive) Gastrointestinal: no complaints Genitourinary: no complaints Musculoskeletal: no complaints Past Medical History Home Meds Reported Medications Bumetanide* (Bumetanide*) 2 Mg Tablet, 2 MG PO DAILY, TAB 01/01/19 Propranolol Hcl* (Propranolol Hcl*) 10 Mg Tablet, 10 MG PO TID, TAB 01/01/19 Cholecalciferol* (Vitamin D3*) 1,000 Unit Tablet, 2000 UNIT PO DAILY, TAB 08/23/18 Sucralfate* (Carafate*) 1 Gm/10 Ml Susp, 1 GM PO TID, EA 08/23/18 Insulin Glargine* (Lantus*) 100 Unit/Ml Soln, 30 UNIT SC QHS, #1 VIAL 11/23/17 Pantoprazole* (Protonix*) 40 Mg Tablet.dr, 40 MG PO BID, TAB 10/26/17 Escitalopram Oxalate* (Lexapro*) 10 Mg Tablet, 10 MG PO QHS, TAB 10/26/17 Lactulose* (Lactulose*) 20 Gm/30 Ml Solution, 20 GM PO QHS, ML 10/26/17 Simvastatin* (Zocor*) 20 Mg Tablet, 20 MG PO QHS, TAB 10/26/17 Discontinued Reported Medications Furosemide* (Furosemide*) 40 Mg Tablet, 40 MG PO DAILY, TAB 11/23/17 Propranolol Hcl* (Propranolol Hcl*) 10 Mg Tablet, 10 MG PO BID, TAB 10/26/17 Discontinued Scripts Lubiprostone* (Amitiza*) 24 Mcg Capsule, 24 MCG PO BID for 30 Days, #60 CAP Prov:JENY MORA MD 08/30/18 Gabapentin* (Gabapentin*) 100 Mg Capsule, 100 MG PO TID for 30 Days, #90 CAP Prov:JENY MORA MD 08/30/18 Lisinopril* (Lisinopril*) 20 Mg Tablet, 20 MG PO DAILY for 30 Days, #30 TAB Prov:JENY MORA MD 08/30/18 Medications Current Medications Ondansetron HCl (Zofran Inj) 4 mg ER BRIDGE PRN IV NAUSEA/VOMITING; Start 01/01/19 at 19:00; Stop 01/02/19 at 18:59 Acetaminophen (Tylenol Tab) 650 mg ER BRIDGE PRN PO .MILD PAIN 1-3 OR TEMP Last administered on 01/01/19at 19:59; Admin Dose 650 MG; Start 01/01/19 at 19:00; Stop 01/02/19 at 18:59 Cholecalciferol (Vitamin D) 2,000 unit DAILY PO Last administered on 01/02/19at 09:05; Admin Dose 2,000 UNIT; Start 01/02/19 at 09:00 Escitalopram Oxalate (Lexapro) 10 mg QHS PO ; Start 01/02/19 at 21:00 Lactulose (Enulose) 20 gm QHS PO ; Start 01/02/19 at 21:00 Pantoprazole (Protonix Tab) 40 mg DAILY@0600 PO Last administered on 01/02/19at 06:10; Admin Dose 40 MG; Start 01/02/19 at 06:00 Sucralfate (Carafate Susp) 1 gm TID PO Last administered on 01/02/19at 09:04; Admin Dose 1 GM; Start 01/02/19 at 09:00 Atorvastatin Calcium (Lipitor) 10 mg DAILY@21 PO ; Start 01/02/19 at 21:00 Acetaminophen (Tylenol Tab) 650 mg Q4H PRN PO MILD PAIN(1-3)OR ELEVATED TEMP; Start 01/01/19 at 23:30 Clonidine (Catapres) 0.1 mg Q4H PRN PO ELEVATED BLOOD PRESSURE; Start 01/01/19 at 23:30 Guaifenesin/ Dextromethorphan (Robitussin Dm Liquid Cup) 5 ml TID PRN PO COUGH Last administered on 01/02/19at 00:02; Admin Dose 5 ML; Start 01/01/19 at 23:30 Diagnostic Test (Pha) (Accu-Chek) 1 ea 02 XX ; Start 01/02/19 at 02:00 Insulin Aspart (Novolog Insulin Pen) NOVOLOG *MILD* ALGORITHM WITH MEALS BEDTIME SC ; Start 01/02/19 at 08:00 Miscellaneous Information 1 ea NOTE XX ; Start 01/01/19 at 23:30 Glucose (Glutose) 15 gm Q15M PRN PO DECREASED GLUCOSE; Start 01/01/19 at 23:30 Glucose (Glutose) 22.5 gm Q15M PRN PO DECREASED GLUCOSE; Start 01/01/19 at 23:30 Dextrose (D50w Syringe) 25 ml Q15M PRN IV DECREASED GLUCOSE; Start 01/01/19 at 23:30 Dextrose (D50w Syringe) 50 ml Q15M PRN IV DECREASED GLUCOSE; Start 01/01/19 at 23:30 Glucagon (Glucagen) 1 mg Q15M PRN IM DECREASED GLUCOSE; Start 01/01/19 at 23:30 Glucose (Glutose) 15 gm Q15M PRN BUCCAL DECREASED GLUCOSE; Start 01/01/19 at 23:30 Propranolol HCl (Inderal) 10 mg TID PO ; Start 01/02/19 at 00:00 Amlodipine Besylate (Norvasc) 5 mg DAILY PO ; Start 01/02/19 at 00:00 Insulin Glargine (Lantus) 30 units QHS SC Last administered on 01/02/19at 01:16; Admin Dose 30 UNITS; Start 01/02/19 at 00:00 Allergies: Coded Allergies: ceftriaxone (Unverified Allergy, Intermediate, RASH, 01/01/19) per Mess notes 02/02/17 - rash with rocephin Social History Smoking Status: Former smoker Exam/Review of Systems Vital Signs Vitals Vital Signs Date Temp Pulse Resp B/P (MAP) Pulse Ox O2 O2 Flow FiO2 Time Delivery Rate 01/02/19 68 08:52 01/02/19 98.5 17 153/70 92 07:43 (97) 01/01/19 Room Air 22:20 01/01/19 2 19:53 01/01/19 21 18:56 Intake and Output 01/01/19 01/01/19 01/02/19 1515:00 23:00 07:00 IntakeIntake Total 200 ml BalanceBalance 200 ml Exam Constitutional: alert, oriented, well developed Psych: no complaints Head: normocephalic, atraumatic Eyes: nl conjunctiva, icteric (none) ENMT: nl external ears & nose Neck: supple, non-tender Respiratory: clear to auscultation, normal air movement Cardiovascular: regular rate and rhythm, nl pulses, murmurs/extra sounds (soft 1-2/6 MAGDALENO) Gastrointestinal: soft, nl liver, spleen, non-tender Extremities: normal pulses (fxn AVF in his RUE) Labs Result Diagram: 01/01/19 1723 01/01/19 1723 Results 24hrs Laboratory Tests Test 01/01/19 17:05 01/01/19 17:23 01/01/19 17:24 01/01/19 20:14 Urine Color KAYLAN Urine Clarity SLIGHTLY CLOUDY A Urine pH 5.0 Urine Specific 1.016 [place] Urine Ketones NEGATIVE Urine Nitrite NEGATIVE Urine Bilirubin NEGATIVE Urine 2+ H Urobilinogen Urine Leukocyte NEGATIVE Esterase Urine Microscopic 1 RBC Urine Microscopic 1 WBC Urine Hemoglobin 2+ H Urine Glucose NEGATIVE Urine Total 2+ H Protein White Blood Count 3.2 #L Red Blood Count 2.31 L Hemoglobin 7.3 L Hematocrit 23.7 L Mean Corpuscular 102.6 H Volume Mean Corpuscular 31.6 Hemoglobin Mean Corpuscular 30.8 L Hemoglobin Concen t Red Cell 17.1 H Distribution Width Platelet Count 65 L Mean Platelet 11.2 H Volume Immature 0.300 Granulocytes % Neutrophils % Segmented 66 Neutrophils % (Manual) Band Neutrophils 7 H % (Manual) Lymphocytes % Lymphocytes % 15 (Manual) Monocytes % Monocytes % 10 (Manual) Eosinophils % Eosinophils % 1 (Manual) Basophils % Basophils % 1 (Manual) Nucleated Red 0.0 Blood Cells % Immature 0.010 Granulocytes # Neutrophils # Neutrophils # 2.1 (Manual) Band Neutrophils 0.2 # Lymphocytes 0.4 L (Manual) Lymphocytes # Monocytes # Monocytes # 0.3 (Manual) Eosinophils # Basophils # Basophils # 0.0 (Manual) Nucleated Red Blood Cells # Platelet Estimate DECREASED Polychromasia 1+ Poikilocytosis 1+ Anisocytosis 1+ Microcytosis 1+ Ovalocytes 1+ Prothrombin Time 14.0 Prothrombin Time 1.1 Ratio INR International 1.07 Normalized Ratio Activated 43.7 H Partial Thrombopl ast Time Sodium Level 137 Potassium Level 3.8 Chloride Level 97 Carbon Dioxide 31 Level Anion Gap 9 Blood Urea 49 H Nitrogen Creatinine 4.04 H Est Glomerular 15 L Filtrat Rate mL/min Glucose Level 116 Calcium Level 7.5 L Total Bilirubin 0.9 Direct Bilirubin 0.00 Indirect 0.9 Bilirubin Aspartate Amino 76 H Transf (AST/SGOT) Alanine 34 Aminotransferase (ALT/SGPT) Alkaline 109 Phosphatase Troponin I 0.146 *H Total Protein 7.3 Albumin 3.4 Globulin 3.90 H Albumin/Globulin 0.87 Ratio POC Venous 1.3 Lactate Lactic Acid Level 1.0 Test 01/01/19 23:06 01/02/19 00:13 01/02/19 04:33 01/02/19 07:57 Lactic Acid Level 1.0 Bedside Glucose 162 133 Troponin I 0.099 Medications Medications Current Medications Ondansetron HCl (Zofran Inj) 4 mg ER BRIDGE PRN IV NAUSEA/VOMITING; Start at 19:00; Stop 01/02/19 at 18:59 Acetaminophen (Tylenol Tab) 650 mg ER BRIDGE PRN PO .MILD PAIN 1-3 OR TEMP Last administered on 01/01/19at 19:59; Admin Dose 650 MG; Start 01/01/19 at 19:00; Stop 01/02/19 at 18:59 Cholecalciferol (Vitamin D) 2,000 unit DAILY PO Last administered on 01/02/19at 09:05; Admin Dose 2,000 UNIT; Start 01/02/19 at 09:00 Escitalopram Oxalate (Lexapro) 10 mg QHS PO ; Start 01/02/19 at 21:00 Lactulose (Enulose) 20 gm QHS PO ; Start 01/02/19 at 21:00 Pantoprazole (Protonix Tab) 40 mg DAILY@0600 PO Last administered on 01/02/19at 06:10; Admin Dose 40 MG; Start 01/02/19 at 06:00 Sucralfate (Carafate Susp) 1 gm TID PO Last administered on 01/02/19at 09:04; Admin Dose 1 GM; Start 01/02/19 at 09:00 Atorvastatin Calcium (Lipitor) 10 mg DAILY@21 PO ; Start 01/02/19 at 21:00 Acetaminophen (Tylenol Tab) 650 mg Q4H PRN PO MILD PAIN(1-3)OR ELEVATED TEMP; Start 01/01/19 at 23:30 Clonidine (Catapres) 0.1 mg Q4H PRN PO ELEVATED BLOOD PRESSURE; Start 01/01/19 at 23:30 Guaifenesin/ Dextromethorphan (Robitussin Dm Liquid Cup) 5 ml TID PRN PO COUGH Last administered on 01/02/19at 00:02; Admin Dose 5 ML; Start 01/01/19 at 23:30 Diagnostic Test (Pha) (Accu-Chek) 1 ea 02 XX ; Start 01/02/19 at 02:00 Insulin Aspart (Novolog Insulin Pen) NOVOLOG *MILD* ALGORITHM WITH MEALS BE DTIME SC ; Start 01/02/19 at 08:00 Miscellaneous Information 1 ea NOTE XX ; Start 01/01/19 at 23:30 Glucose (Glutose) 15 gm Q15M PRN PO DECREASED GLUCOSE; Start 01/01/19 at 23:30 Glucose (Glutose) 22.5 gm Q15M PRN PO DECREASED GLUCOSE; Start 01/01/19 at 23:30 Dextrose (D50w Syringe) 25 ml Q15M PRN IV DECREASED GLUCOSE; Start 01/01/19 at 23:30 Dextrose (D50w Syringe) 50 ml Q15M PRN IV DECREASED GLUCOSE; Start 01/01/19 at 23:30 Glucagon (Glucagen) 1 mg Q15M PRN IM DECREASED GLUCOSE; Start 01/01/19 at 23:30 Glucose (Glutose) 15 gm Q15M PRN BUCCAL DECREASED GLUCOSE; Start 01/01/19 at 23:30 Propranolol HCl (Inderal) 10 mg TID PO ; Start 01/02/19 at 00:00 Amlodipine Besylate (Norvasc) 5 mg DAILY PO ; Start 01/02/19 at 00:00 Insulin Glargine (Lantus) 30 units QHS SC Last administered on 01/02/19at 01:16; Admin Dose 30 UNITS; Start 01/02/19 at 00:00 NORRIS JOE MD Jan 02, 2019 10:42
[2019-01-02] MEDS ORDERED: EPOETIN ALFA-EPBX (ESRD) 10,000 UNIT/ML VIAL IV SCH (11:00)
[2019-01-02] MEDS: AZITHROMYCIN 250 MG TAB PO SCH ×2 (13:30→20:17)
--- NOTE | 2019-01-02 18:27 | HP ---
DATE OF ADMISSION: 01/01/2019 CHIEF COMPLAINT AND HISTORY OF PRESENT ILLNESS: The patient is a 63-year-old gentleman well known to me from previous followup with history of hypertension, diabetes mellitus type 2, end-stage renal di sease on hemodialysis, cirrhosis with portal hypertension, history of hepatitis C, treated with no ev idence of any residual, chronic anemia was brought in from the dialysis center by ambulance to the em ergency room for high-grade fever and cough. The patient apparently had half an hour of hemodialysis and was stopped because of fever. The patient has been having recent cough with mucopurulent expect oration for the past 3 days. He recently came back from [place] about 4 days ago. There has been no h istory of leg swelling or calf pain. REVIEW OF SYSTEMS: HEAD: No history of headaches, focal weakness or numbness. EYES: No blurry vision or glaucoma. ENT: Noncontributory. NECK: No history of thyroid disease. CHEST: No bronchitis, hay fever or asthma. The patient does not smoke. No history of TB. HEART: No PND, orthopnea. Angiogram was done about year and a half ago showed no evidence of signif icant coronary artery disease. Did have mitral regurgitation, status post mitral valve clipping done at [facility] about 6 months back. GASTROINTESTINAL: History of cirrhosis with portal hypertension, status post multiple GI bleeds, his tory of gastric and esophageal varices, gastric ulcer, hemorrhoid bleed and small bowel AVM bleed as well. The patient did have dysphagia following mitral valve clipping which has resolved. GENITOURINARY: No dysuria, hematuria, kidney stones. HEMATOLOGICAL: History of thrombocytopenia. ENDOCRINE: History of diabetes mellitus type 2. FAMILY HISTORY: Noncontributory. ALLERGIES: CEFTRIAXONE. MEDICATIONS: Include: 1. Carafate 1 g t.i.d. 2. Lantus 30 units daily. 3. Pantoprazole 40 mg daily. 4. Propranolol 10 mg b.i.d. 5. Simvastatin 20 mg daily. 6. Lexapro 10 mg daily. 7. Vitamin D 1000 units daily. PHYSICAL EXAMINATION: GENERAL: The patient is an obesely built male who is presently in no acute distress. VITAL SIGNS: Temperature 98.0, blood pressure 168/74, O2 sats 92% on room air. HEENT: Head is normocephalic. Mild scleral icterus noted with pallor. ENT: NAD. NECK: Supple. No thyromegaly, bruits or lymphadenopathy. LUNGS: Clinically clear. HEART: S1, S2 with no definite gallops. ABDOMEN: Obese, nontender. Organomegaly could not be appreciated. Hernial orifice is intact. EXTREMITIES: No edema. Homans negative. LABORATORY DATA: WBC count 3.2, hematocrit 23.7, platelet count 65,000. Lactic acid 1.0. Glucose l evels 162, 133 and 181. Troponin 0.146, repeat one is 0.09. DIAGNOSTIC DATA: Chest x-ray shows normal size heart, lung ramos clear. IMPRESSION: 1. Fever, possibly related to acute bronchitis, status post recent travel. 2. Severe anemia. So far, no evidence of gastrointestinal bleed. 3. Chronic renal failure on hemodialysis. 4. Diabetes mellitus type 2, well controlled. 5. History of portal hypertension with cirrhosis. He appeared icteric, but bilirubin levels are nor mal range. 6. 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 PLAN: Nephrology consultation at the request of Dr. Felxi. Proceed with hemodialysis today. Trop onin increase is probably related to chronic renal failure. I do not believe the patient has an acut e coronary ischemia. For bronchitis, we will treat him with Zithromax p.o. and observe. Dictated By: JENY MORA MD, SR/PEG Conf#: [id number] DID#: [id number]
[2019-01-02] MEDS ORDERED: INSULIN GLARGINE [LANTus] (100 UNITS/ML) SYG SC SCH ×2 (20:00→21:00)
[2019-01-02] MEDS ORDERED: LACTULOSE 30ML CUP PO SCH (21:00)
[2019-01-02] MEDS ORDERED: NON-FORMULARY/PATIENT OWN MED (Simvastatin* (Zocor*) 20 MG) PO SCH (21:00)
[2019-01-02] MEDS ORDERED: ATORVASTATIN 10 MG TAB PO SCH (21:00)
[2019-01-02] MEDS ORDERED: ESCITALOPRAM 10 MG TAB PO SCH (21:00)
[2019-01-02] MEDS ORDERED: LORAZEPAM 0.5 MG TAB PO ONE (21:30)
[2019-01-03] VITALS: PULSE 65
[2019-01-03] MEDS ORDERED: morphine 4 MG/ML VIAL IV STA (00:04)
[2019-01-03] MEDS: ACCU-CHEK XX SCH (01:30)
[2019-01-03 04:00] VITALS: PULSE 58
[2019-01-03 05:00] VITALS: BP 105/53; PULSE 57; RESP 18
[2019-01-03] MEDS: PANTOPRAZOLE (EC) 40 MG TAB PO SCH (06:44)
[2019-01-03 07:51] VITALS: BP 116/60; PULSE 57; RESP 22
[2019-01-03 08:00] VITALS: PULSE 57
[2019-01-03] MEDS: INSULIN ASPART [NOVOLOG] 3 ML PEN SC SCH (08:00)
--- NOTE | 2019-01-03 08:04 | CONS ---
Assessment/Plan Assessment/Plan Hospital Course (Demo Recall) 1. End-stage renal disease on maintenance hemodialysis Thursday. If he were to stay in the hospital then he would need dialysis tomorrow which has been ordered. 2. Fever. There is some question as to whether he had truly a temperature of 106 prior to admission because his temperature here when he arrived in the ER was 99. At this time he is feeling well. He has a slight cough. 3. Pancytopenia, he has a history of pancytopenia due to splenomegaly. He did receive a unit of blood yesterday. I will check labs today. 4. Cirrhosis of the liver due to hepatitis C 5. He seems overall improved. He could be discharged home at any time today or tomorrow. If he stays until tomorrow then I will order hemodialysis here for him tomorrow. Consultation Date/Type/Reason Admit Date/Time Jan 01, 2019 at 18:39 Initial Consult Date Type of Consult Nephrology Requesting Provider: JENY MORA MD Date/Time of Note DATE: 01/03/19 TIME: 08:00 24 HR Interval Summary Free Text/Dictation Patient is sitting up. He is being seen in nephrologic follow-up. He has no new complaints except for a slight cough. He has not had any fever. He was dialyzed yesterday and received a unit of blood. Constitutional: no complaints, improved Exam/Review of Systems Exam Vitals Vital Signs Date Temp Pulse Resp B/P (MAP) Pulse Ox O2 O2 Flow FiO2 Time Delivery Rate 01/03/19 98.0 57 22 116/60 96 Room Air 07:51 (78) 01/01/19 2 19:53 01/01/19 21 18:56 Intake and Output 01/02/19 01/02/19 01/03/19 1515:00 23:00 07:00 IntakeIntake Total 370 ml 420 ml 120 ml OutputOutput Total 3300 ml BalanceBalance 370 ml -2880 ml 120 ml Constitutional: alert, oriented, frail Respiratory: clear to auscultation, normal air movement Cardiovascular: regular rate and rhythm Gastrointestinal: soft, non-tender Musculoskeletal: nl extremities to inspection Results Result Diagram: 01/01/19 1723 01/01/19 1723 Results 24hrs Laboratory Tests Test 01/02/19 11:41 01/02/19 20:01 Bedside Glucose 181 108 Medications Medication Current Medications Cholecalciferol (Vitamin D) 2,000 unit DAILY PO Last administered on 01/02/19 09:05; Admin Dose 2,000 UNIT; Start 01/02/19 at 09:00 Escitalopram Oxalate (Lexapro) 10 mg QHS PO Last administered on 01/02/19 20:16; Admin Dose 10 MG; Start 01/02/19 at 21:00 Lactulose (Enulose) 20 gm QHS PO Last administered on 01/02/19 20:16; Admin Dose 20 GM; Start 01/02/19 at 21:00 Pantoprazole (Protonix Tab) 40 mg DAILY@0600 PO Last administered on 01/03/19 06:44; Admin Dose 40 MG; Start 01/02/19 at 06:00 Sucralfate (Carafate Susp) 1 gm TID PO Last administered on 01/02/19 20:16; Admin Dose 1 GM; Start 01/02/19 at 09:00 Atorvastatin Calcium (Lipitor) 10 mg DAILY@21 PO Last administered on 01/02/19 20:17; Admin Dose 10 MG; Start 01/02/19 at 21:00 Acetaminophen (Tylenol Tab) 650 mg Q4H PRN PO MILD PAIN(1-3)OR ELEVATED TEMP; Start 01/01/19 at 23:30 Clonidine (Catapres) 0.1 mg Q4H PRN PO ELEVATED BLOOD PRESSURE; Start 01/01/19 at 23:30 Guaifenesin/ Dextromethorphan (Robitussin Dm Liquid Cup) 5 ml TID PRN PO COUGH Last administered on 01/02/19at 00:02; Admin Dose 5 ML; Start 01/01/19 at 23:30 Diagnostic Test (Pha) (Accu-Chek) 1 ea 02 XX ; Start 01/02/19 at 02:00 Insulin Aspart (Novolog Insulin Pen) NOVOLOG *MILD* ALGORITHM WITH MEALS BEDTIME SC Last administered on 01/02/19at 11:58; Admin Dose 2 UNIT; Start 01/02/19 at 08:00 Miscellaneous Information 1 ea NOTE XX ; Start 01/01/19 at 23:30 Glucose (Glutose) 15 gm Q15M PRN PO DECREASED GLUCOSE; Start 01/01/19 at 23:30 Glucose (Glutose) 22.5 gm Q15M PRN PO DECREASED GLUCOSE; Start 01/01/19 at 23:30 Dextrose (D50w Syringe) 25 ml Q15M PRN IV DECREASED GLUCOSE; Start 01/01/19 at 23:30 Dextrose (D50w Syringe) 50 ml Q15M PRN IV DECREASED GLUCOSE; Start 01/01/19 at 23:30 Glucagon (Glucagen) 1 mg Q15M PRN IM DECREASED GLUCOSE; Start 01/01/19 at 23:30 Glucose (Glutose) 15 gm Q15M PRN BUCCAL DECREASED GLUCOSE; Start 01/01/19 at 23:30 Propranolol HCl (Inderal) 10 mg TID PO Last administered on 01/02/19at 20:17; Admin Dose 10 MG; Start 01/02/19 at 00:00 Amlodipine Besylate (Norvasc) 5 mg DAILY PO ; Start 01/02/19 at 00:00 Insulin Glargine (Lantus) 30 units QHS SC Last administered on 01/02/19at 20:23; Admin Dose 30 UNITS; Start 01/02/19 at 00:00 Epoetin Sean-epbx (Retacrit (Esrd)) 10,000 unit AFTER DIALYSIS IV ; Start 01/02/19 at 11:00 Azithromycin (Zithromax) 500 mg DAILY PO Last administered on 01/02/19at 20:17; Admin Dose 500 MG; Start 01/02/19 at 13:30; Stop 01/04/19 at 09:01 ANA MELENDEZ MD Jan 03, 2019 08:04
[2019-01-03] MEDS: AMLODIPINE 5 MG TAB PO SCH (08:45)
[2019-01-03] MEDS: AZITHROMYCIN 250 MG TAB PO SCH (08:45)
[2019-01-03] MEDS: SUCRALFATE (100 MG/ML) 10ML CUP PO SCH (08:46)
[2019-01-03] MEDS: CHOLECALCIFEROL 1,000 UNIT TAB PO SCH (08:46)
[2019-01-03] MEDS: PROPRANOLOL 10 MG TAB PO SCH (08:47)
--- NOTE | 2019-01-03 09:10 | DS ---
DATE OF ADMISSION: 01/01/2019 DATE OF DISCHARGE: 01/03/2019 FINAL DIAGNOSES: 1. Severe anemia. 2. Increased troponins. No evidence of acute coronary ischemia. 3. Acute bronchitis. 4. Chronic renal failure on hemodialysis. 5. Hepatic cirrhosis with portal hypertension. 6. Diabetes mellitus type 2. HOSPITAL COURSE: The patient is a 63-year-old gentleman well known to me from previous followup, wit h history of hypertension, diabetes type 2, portal hypertension, history of hepatitis C, treated, pre senting with high-grade fever after hemodialysis when it was stopped and he was referred to the emerg ency room where he was evaluated and admitted. The patient was found to be afebrile in the emergency room. Chest was clear. Initial hematocrit was 23.7. WBC count 3.2, platelet count 65,000. Tropon in was up to 0.14 and came down to 0.09. The patient did not have any chest pain. The patient was s tarted on Zithromax 500 [address] seen by Dr. Felix given 1 unit of packed cells, hemodialyzed on . The patient was afebrile on 01/03/2019. Lungs were clear and he was discharged home to [facility] Zithromax for 2 more days. The patient will be followed in my office over the course of next 2 weeks. DISCHARGE CONDITION: Much improved. Dictated By: JENY MORA MD SR/NTS Conf#: [id number] DID#: [id number] CC: JENY MORA MD;*EndCC*
== END 2019-01-03 11:22 | disposition home or self-care (01) | DRG 202 ==
LOC: E/R 15:59 → 6WM 18:39 → CANRESERV 20:53 → 6WM 01-02 15:18
PROVIDERS: ADMIT Internal Medicine; ATTEND Internal Medicine
PROC: 30233N1 Transfusion of Nonautologous Red Blood Cells into Peripheral Vein, Percutaneous Approach (ICD-10-PCS; principal; 2019-01-02)
PROC: 5A1D70Z Performance of Urinary Filtration, Intermittent, Less than 6 Hours Per Day (ICD-10-PCS; 2019-01-02)
DX: J20.9 Acute bronchitis, unspecified (principal); N18.6 End stage renal disease; I12.0 Hypertensive chronic kidney disease with stage 5 chronic kidney disease or end stage renal disease; K76.6 Portal hypertension; D61.818 Other pancytopenia; E11.22 Type 2 diabetes mellitus with diabetic chronic kidney disease; Z99.2 Dependence on renal dialysis; K74.69 Other cirrhosis of liver; B19.20 Unspecified viral hepatitis C without hepatic coma; R16.1 Splenomegaly, not elsewhere classified
CPT/HCPCS: 36415; 36430; 71045; 80053; 81001; 82962; 83605; 84484; 85025; 85610; 85730; 86850; 86900; 86901; 86920; 87081; 87086; 87340; 90935; 93005; 94664; 96374; J1815; J1956; J2270; J7030; P9016; Q5105

== ENCOUNTER 2019-01-12 10:59 | Inpatient (IN) | payer BC, MEDICARE ==
[~2019-01-12] VITALS: Ht 182.9 cm; Wt 122.9 kg
[~2019-01-12 10:59] MED LIST changes: +BUME2TAB2 PO; -FURO40TA4 PO; -GABA100C14 PO; -LISI-471 PO; -LUBI24CA7 PO
[2019-01-12] MEDS ORDERED: OCTREOTIDE 500 MCG in SOD CHLORIDE 0.9% 49 ML IV STA (11:44)
[2019-01-12] MEDS ORDERED: OCTREOTIDE 50 MCG in SOD CHLORIDE 0.9% 25 ML IVPB STA (11:44)
[2019-01-12] MEDS ORDERED: ONDANSETRON 4 MG INJ IV STA (11:44)
[2019-01-12] MEDS ORDERED: ONDANSETRON 4 MG INJ IV PRN ×2 (12:30→20:30)
[2019-01-12] MEDS ORDERED: ACETAMINOPHEN 325 MG TAB PO PRN ×2 (12:30→20:30)
--- NOTE | 2019-01-12 12:45 | ERD ---
ER Documentation Chief Complaint Chief Complaint rb since yest when using restroom, red blood, w dizziness, and fatigue HPI 63-year-old male presents the emergency department complaining of rectal bleeding. Patient has a significant history of upper GI bleeds related to esophageal varices as well as underlying anemia related to his renal disease. Patient is required blood transfusion as well as Epogen recently. Over the last 2 days patient has noticed bright red blood in his bowel movements. This got worse today and he had an increasing amount of blood noticed in his stool. He reports no abdominal pain or chest pain but does complain of dizziness and fatigue, which are symptoms that he has had in the past with his anemia. ROS All systems reviewed and are negative except as per history of present illness. Medications Home Meds Reported Medications Bumetanide* (Bumetanide*) 2 Mg Tablet, 2 MG PO DAILY, TAB 01/01/19 Propranolol Hcl* (Propranolol Hcl*) 10 Mg Tablet, 10 MG PO TID, TAB 01/01/19 Cholecalciferol* (Vitamin D3*) 1,000 Unit Tablet, 2000 UNIT PO DAILY, TAB 08/23/18 Sucralfate* (Carafate*) 1 Gm/10 Ml Susp, 1 GM PO TID, EA 08/23/18 Insulin Glargine* (Lantus*) 100 Unit/Ml Soln, 30 UNIT SC QHS, #1 VIAL 11/23/17 Pantoprazole* (Protonix*) 40 Mg Tablet.dr, 40 MG PO BID, TAB 10/26/17 Escitalopram Oxalate* (Lexapro*) 10 Mg Tablet, 10 MG PO QHS, TAB 10/26/17 Lactulose* (Lactulose*) 20 Gm/30 Ml Solution, 20 GM PO QHS, ML 10/26/17 Simvastatin* (Zocor*) 20 Mg Tablet, 20 MG PO QHS, TAB 10/26/17 Allergies Allergies: Coded Allergies: ceftriaxone (Unverified Allergy, Intermediate, RASH, 01/12/19) per Mess notes 02/02/17 - rash with rocephin PMhx/Soc History of Surgery: Yes (APPENDECTOMY 1979, RIGHT UPPER ARM AV [id number]) Anesthesia Reaction: No Hx 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 Disorder: No Hx Respiratory Disorders: Yes (SOB RECENTLY) Hx Cardiac Disorders: Yes (MITRAL VALVE CLIPPING 2018) Hx Miscellaneous Medical Probl: Yes (CHRONIC ANEMIA) Hx Alcohol Use: Yes (OCCASIONALLY, STOPPED 1992) Hx Substance Use: No Hx Tobacco Use: Yes (10 CIGARETTE/D, STOPPED 1992) Smoking Status: Former smoker FmHx Noncontributory for chief complaint Physical Exam Vitals Vital Signs Date Temp Pulse Resp B/P (MAP) Pulse Ox O2 O2 Flow FiO2 Time Delivery Rate 01/12/19 98.0 65 20 132/68 98 11:16 (89) Physical Exam GENERAL: Pale, chronically ill-appearing but in no acute distress HEENT: Pupils equal, round, and reactive to light. EOMI. There is no scleral icterus. NECK: C-spine is soft and supple, there is no meningismus. There is no cervical lymphadenopathy. LUNGS: Clear to auscultation bilaterally. There are no rales, wheezes or rhonchi. HEART: Regular rate and rhythm, no murmurs, clicks, rubs or gallops. ABDOMEN: Soft, non-tender, non-distended. There are bowel sounds in all four quadrants. No rebound or guarding. No fluid wave EXTREMITIES: There is no peripheral cyanosis or edema. No focal swelling or erythema. Right upper extremity dialysis access with normal bruit and thrill NEURO: The patient moves all four extremities with 5/5 strength. Cranial nerves II - XII are intact. Normal gait. Alert and oriented, no asterixis SKIN: There is no apparent rash or petechiae. HEME/LYMPHATIC: There is no evidence of excessive bruising or lymphedema. PSYCHIATRIC: The patient does not appear anxious or depressed. Result Diagram: 01/12/19 1156 01/12/19 1156 Results 24 hrs Laboratory Tests Test 01/12/19 11:56 White Blood Count 6.6 10^3/ul Red Blood Count 3.20 10^6/ul Hemoglobin 10.1 g/dl Hematocrit 32.2 % Mean Corpuscular Volume 100.6 fl Mean Corpuscular Hemoglobin 31.6 pg Mean Corpuscular Hemoglobin Concent 31.4 g/dl Red Cell Distribution Width 18.4 % Platelet Count 73 10^3/UL Mean Platelet Volume 12.3 fl Immature Granulocytes % 0.800 % Neutrophils % 70.2 % Lymphocytes % 15.2 % Monocytes % 9.7 % Eosinophils % 3.6 % Basophils % 0.5 % Nucleated Red Blood Cells % 0.0 /100WBC Immature Granulocytes # 0.050 10^3/ul Neutrophils # 4.6 10^3/ul Lymphocytes # 1.0 10^3/ul Monocytes # 0.6 10^3/ul Eosinophils # 0.2 10^3/ul Basophils # 0.0 10^3/ul Nucleated Red Blood Cells # 0.0 10^3/ul Prothrombin Time 13.8 Sec Prothrombin Time Ratio 1.1 INR International Normalized Ratio 1.05 Activated Partial Thromboplast Time 36.0 Sec Sodium Level 135 mmol/L Potassium Level 4.4 mmol/L Chloride Level 96 mmol/L Carbon Dioxide Level 28 mmol/L Anion Gap 11 Blood Urea Nitrogen 53 mg/dl Creatinine 5.90 mg/dl Est Glomerular Filtrat Rate mL/min 10 mL/min Glucose Level 289 mg/dl Calcium Level 8.2 mg/dl Total Bilirubin 1.2 mg/dl Direct Bilirubin 0.00 mg/dl Indirect Bilirubin 1.2 mg/dl Aspartate Amino Transf (AST/SGOT) 76 IU/L Alanine Aminotransferase (ALT/SGPT) 33 IU/L Alkaline Phosphatase 182 IU/L Troponin I 0.024 ng/ml Total Protein 8.3 g/dl Albumin 3.7 g/dl Globulin 4.60 g/dl Albumin/Globulin Ratio 0.80 Current Medications Medications Dose Sig/Irasema Start Time Status Last (Trade) Ordered Route PRN Stop Time Admin Dose Reason Admin Octreotide 26 ml @ Q16M STAT 01/12/19 DC Acetate 50 100 mls/hr IVPB 11:44 01/12/19 mcg/ Sodium 11:59 Chloride Octreotide 50 ml @ 5 ONCE STAT 01/12/19 Acetate 500 mls/hr IV 11:44 01/12/19 mcg/ Sodium 21:43 Chloride Ondansetron 4 mg ONCE STAT 01/12/19 DC 01/12/19 HCl (Zofran IV 11:44 01/12/19 11:54 Inj) 11:45 Ondansetron 4 mg ER BRIDGE 01/12/19 HCl (Zofran PRN IV 12:30 01/13/19 Inj) NAUSEA/VOMITI 12:29 NG 650 mg ER BRIDGE 01/12/19 Acetaminophen PRN PO 12:30 01/13/19 (Tylenol .MILD PAIN 12:29 Tab) 1-3 OR TEMP Procedures/MDM Patient was taken to a room, seen and evaluated. Comfort measures were initiated. Diagnostic tests were ordered and reviewed. 3 LEAD RHYTHM STRIP: Normal sinus rhythm without ectopy EK lead EKG reviewed by myself: Normal Sinus Rhythm Normal Collison and intervals No ST elevation, depression, or T wave inversion Impression: Normal EKG RADIOLOGY: Reviewed with the radiologist CONSULTATION: Dr. Clark was notified for admission. Dr. Arteaga was called for a GI consult REEVALUATION: 1245: Diagnostic tests were appreciated. They were discussed with the patient and his family. Decision was made to admit. Patient had no ongoing bleeding in the emergency department, he remained hemodynamically stable and comfortable. MEDICAL DECISION MAKIN-year-old male with multiple comorbid conditions including anemia, renal failure as well as hepatitis C induced cirrhosis with previous esophageal varices presents with GI bleeding. Patient's hemoglobin is low, but he does not require transfusion at this time given his hemodynamic stability. Although the hemoglobin is low, it is actually better than his past recent tests in our emergency department. Given the patient's history of high risk bleed as well as high risk comorbid conditions, he does not appear to be appropriate for outpatient observation and will be admitted for consideration of endoscopy and monitoring of his hemoglobin. I have ordered octreotide over the concerns of the previous esophageal varices. Departure Diagnosis: Primary Impression: Cirrhosis Additional Impressions: Anemia ESRD (end stage renal disease) on dialysis Condition: ABENA Zepeda Jan 12, 2019 12:45
[2019-01-12 18:30] VITALS: BP 139/62; PULSE 63; RESP 18
[2019-01-12 18:37] VITALS: Ht 182.9 cm; Wt 122.9 kg
[2019-01-12] MEDS ORDERED: NACL 0.9% 3 ML SYG IV SCH (20:30)
[2019-01-12] MEDS ORDERED: DEXTROSE 50% 50 ML SYRINGE IV PRN ×2 (21:00)
[2019-01-12] MEDS ORDERED: GLUCOSE GEL 15 GRAM TUBE BUCCAL PRN (21:00)
[2019-01-12] MEDS ORDERED: GLUCOSE GEL 15 GRAM TUBE PO PRN ×2 (21:00)
[2019-01-12] MEDS ORDERED: GLUCAGON 1 MG INJ IM PRN (21:00)
--- NOTE | 2019-01-12 21:32 | CONS ---
DATE OF ADMISSION: 01/12/2019 DATE OF CONSULTATION: TYPE OF CONSULTATION: Gastroenterology. From Stuart Arteaga MD, to Ivan Mora MD. Dear Dr. Mora: Thank you for asking me to evaluate your patient who is a 63-year-old male with history of cirrhosis of liver secondary to hepatitis C, being followed at [facility] for both the kidney and liver trans plant, comes to the ER complaining of rectal bleeding. Bleeding was minor. No black stool. It was fresh blood. No nausea, no vomiting, no abdominal pain. No fever, no chills, no chest pain, no shor tness of breath. The patient has lost significant weight. REVIEW OF SYSTEMS: Otherwise negative. HOME MEDICATIONS: All reviewed. He is on: 1. Beta nicole. 2. Bumex. 3. Vitamin D3. 4. Carafate. 5. Insulin. 6. PPI. 7. Lactulose. 8. Simvastatin. ALLERGIES: CEFTRIAXONE. PAST MEDICAL HISTORY: Appendicectomy, shunt in the arm, mitral valve clipping at [facility]. SOCIAL HISTORY: History of smoking, stopped in 1992. Used to drink alcohol, stopped again in 1992. FAMILY HISTORY: Nothing contributory. PHYSICAL EXAMINATION GENERAL: Well-built, nourished, not in distress. VITAL SIGNS: Stable. HEENT: Unremarkable. NECK: Supple. No thyromegaly. No lymphadenopathy. CARDIOVASCULAR: No murmur, gallop or click. LUNGS: Clear. ABDOMEN: Benign. No evidence of hepatic cleft. EXTREMITIES: No edema. CENTRAL NERVOUS SYSTEM: Grossly within normal limits. DIAGNOSTIC DATA: Chest x-ray was done. There was one nodule seen on the chest x-ray. IMPRESSION: 1. Rectal bleeding, most probably from the hemorrhoids. His last endoscopy was on 12/24/2017. He h ad no esophageal varicose vein and no gastric varicose vein also identified. 2. Renal failure on dialysis. 3. Cirrhosis of liver. 4. History of hepatitis C. 5. Anemia. 6. Thrombocytopenia. PLAN: Monitor H and H. I will review my colonoscopy report. We will transfuse on a need basis. Co ntinue present care. Dictated By: STUART CASTELLANOS/PEG Conf#: [id number] DID#: [id number] CC: IVAN MORA MD;*[facility]*
[2019-01-12] MEDS: SUCRALFATE (100 MG/ML) 10ML CUP PO SCH (21:34)
[2019-01-12] MEDS: LACTULOSE 30ML CUP PO SCH (21:35)
[2019-01-12] MEDS: PROPRANOLOL 10 MG TAB PO SCH (21:35)
[2019-01-12] MEDS: ESCITALOPRAM 10 MG TAB PO SCH (21:35)
[2019-01-12] MEDS: PANTOPRAZOLE (EC) 40 MG TAB PO SCH (21:35)
[2019-01-12] MEDS: INSULIN ASPART [NOVOLOG] 3 ML PEN SC SCH (22:27)
[2019-01-12] MEDS: INSULIN GLARGINE [LANTus] (100 UNITS/ML) SYG SC SCH (22:28)
--- NOTE | 2019-01-12 22:30 | HP ---
DATE OF ADMISSION: 01/12/2019 CHIEF COMPLAINT AND HISTORY OF PRESENT ILLNESS: The patient is a 63-year-old gentleman well known to me from previous followup, with cirrhosis, portal hypertension, status post prior GI bleeds with eso phageal varices and anemia being admitted via emergency room with rectal bleeding. The patient has b een having increasing dizziness and fatigue since yesterday and had some bright red bleeding per rect um with the bowel movements for the last 2 days, which got worse today. The patient denied any abdom inal pain, no chest pain. REVIEW OF SYSTEMS: HEAD: No history of headaches, focal weakness or numbness. EYES: No blurry vision or glaucoma. EARS, NOSE AND THROAT: Noncontributory. NECK: No history of thyroid disease. CHEST: No bronchitis, hay fever, or asthma. The patient does not smoke. No history of TB. CARDIOVASCULAR: No PND, orthopnea. Angiogram was done about a year and a half ago showed no evidenc e of significant coronary artery disease. Did have mitral regurgitation, status post mitral valve cl ipping done at [facility] 6 months back. GASTROINTESTINAL: As above, history of cirrhosis, portal hypertension, status post multiple GI bleed s, history of gastric and esophageal varices, gastric ulcer, hemorrhoid bleed, small bowel AVM bleed as well. Had dysphagia following mitral valve clipping which has resolved. GENITOURINARY: No dysuria, hematuria, kidney stones. HEMATOLOGIC: History of thrombocytopenia. ENDOCRINE: History of diabetes mellitus type 2. MEDICATIONS: Include: 1. Carafate 1 g t.i.d. 2. Lantus 30 units daily. 3. Pantoprazole 40 mg daily. 4. Propranolol 10 mg b.i.d. 5. Simvastatin 20 mg daily. 6. Lexapro 10 mg daily. 7. Vitamin D 1000 units daily. PHYSICAL EXAMINATION: GENERAL: The patient is an obesely-built male who is presently in no acute distress. VITAL SIGNS: Temperature 98.0, blood pressure 113/62, O2 sats 91% room air. HEENT: Mild pallor without cyanosis. Tongue is moist. NECK: Supple. No thyromegaly, bruits or lymphadenopathy. LUNGS: Clinically clear. HEART: S1, S2 heard, no definite gallops. ABDOMEN: Obese, nontender, no hepatosplenomegaly. EXTREMITIES: Trace edema. Homans negative. LABORATORY DATA: WBC count 6.6, hematocrit 32.2, platelet count 73,000. Sodium 134, potassium 4.4, BUN 53, creatinine 5.9, alkaline phosphatase 182. Chest x-ray shows 1 cm nodule in the left midlung zone, cardiomegaly. IMPRESSION: 1. Rectal bleeding, possibly from hemorrhoidal bleed. 2. Moderate anemia with thrombocytopenia, which is chronic. 3. Cirrhosis with portal hypertension. 4. Prior gastrointestinal bleed, status post esophageal gastric varices with cirrhosis with portal h ypertension. 5. Diabetes mellitus type 2. 6. Obesity. 7. Chronic kidney disease on hemodialysis. PLAN: We will repeat CBC and BMP tomorrow morning. Follow recommendations of Dr. Arteaga. We will r equest Dr. Da Silva from nephrology standpoint. Consider hemodialysis for tomorrow. The patient i s to be followed with a CT scan of the chest for the left midlung zone nodule in due course. Dictated By: JENY MORA MD SR/NTS Conf#: [id number] DID#: [id number] CC: JENY MORA MD;*EndCC*
[2019-01-13] VITALS (21 sets, daily range): BP systolic 117–167; BP diastolic 58–89; PULSE 55–85; RESP 16–19
[2019-01-13] MEDS ORDERED: ACCU-CHEK XX SCH (02:00)
[2019-01-13] MEDS: SUCRALFATE (100 MG/ML) 10ML CUP PO SCH ×3 (08:10→20:36)
[2019-01-13] MEDS: PANTOPRAZOLE (EC) 40 MG TAB PO SCH ×2 (08:10→20:36)
[2019-01-13] MEDS: PROPRANOLOL 10 MG TAB PO SCH ×3 (08:12→20:41)
[2019-01-13] MEDS: INSULIN ASPART [NOVOLOG] 3 ML PEN SC SCH ×3 (08:23→17:13)
[2019-01-13] MEDS ORDERED: CHOLECALCIFEROL 1,000 UNIT TAB PO SCH (09:00)
--- NOTE | 2019-01-13 10:18 | CONS ---
Assessment/Plan Assessment/Plan Problems: (1) Hematochezia Status: Acute Comment: limited, painless.. prob Hems.. Hct stable since admission (2) Hepatitis C Comment: chronic, w cirrhosis (3) Anemia Status: Chronic Comment: mild... stable... on EPO... HgB is 10.0 (4) Cirrhosis Status: Chronic Comment: due to Hep C (5) ESRD (end stage renal disease) on dialysis Status: Chronic Comment: will plan on HD today, his usual day Consultation Date/Type/Reason Admit Date/Time Jan 12, 2019 at 12:28 Type of Consult Nephrology Date/Time of Note DATE: 01/13/19 TIME: 10:14 Hx of Present Illness ESRD patient, dialyzes at [facility] TTS, admitted with LGIB. Painless. Hct is stable. He feels well, and denies any nausea, emesis or abd pain. No fever chills or sweats. Constitutional: no complaints Eyes: no complaints Respiratory: no complaints Cardiovascular: no complaints Gastrointestinal: no complaints Genitourinary: no complaints Musculoskeletal: no complaints Past Medical History Home Meds Reported Medications Bumetanide* (Bumetanide*) 2 Mg Tablet, 2 MG PO DAILY, TAB 01/01/19 Propranolol Hcl* (Propranolol Hcl*) 10 Mg Tablet, 10 MG PO TID, TAB 01/01/19 Cholecalciferol* (Vitamin D3*) 1,000 Unit Tablet, 2000 UNIT PO DAILY, TAB 08/23/18 Sucralfate* (Carafate*) 1 Gm/10 Ml Susp, 1 GM PO TID, EA 08/23/18 Insulin Glargine* (Lantus*) 100 Unit/Ml Soln, 30 UNIT SC QHS, #1 VIAL 11/23/17 Pantoprazole* (Protonix*) 40 Mg Tablet.dr, 40 MG PO BID, TAB 10/26/17 Escitalopram Oxalate* (Lexapro*) 10 Mg Tablet, 10 MG PO QHS, TAB 10/26/17 Lactulose* (Lactulose*) 20 Gm/30 Ml Solution, 20 GM PO QHS, ML 10/26/17 Simvastatin* (Zocor*) 20 Mg Tablet, 20 MG PO QHS, TAB 10/26/17 Medications Current Medications Ondansetron HCl (Zofran Inj) 4 mg ER BRIDGE PRN IV NAUSEA/VOMITING; Start 01/12/19 at 12:30; Stop 01/13/19 at 12:29 Acetaminophen (Tylenol Tab) 650 mg ER BRIDGE PRN PO .MILD PAIN 1-3 OR TEMP; Start 01/12/19 at 12:30; Stop 01/13/19 at 12:29 IV Flush (NS 3 ml) 3 ml PER PROTOCOL IV ; Start 01/12/19 at 20:30 Ondansetron HCl (Zofran Inj) 4 mg Q6H PRN IV NAUSEA/VOMITING; Start 01/12/19 at 20:30 Acetaminophen (Tylenol Tab) 650 mg Q6H PRN PO .PAIN 1-3 OR TEMP; Start 01/12/19 at 20:30 Cholecalciferol (Vitamin D) 2,000 unit DAILY PO Last administered on 01/13/19 08:11; Admin Dose 2,000 UNIT; Start 01/13/19 at 09:00 Escitalopram Oxalate (Lexapro) 10 mg QHS PO Last administered on 01/12/19 21:35; Admin Dose 10 MG; Start 01/12/19 at 21:00 Insulin Glargine (Lantus) 30 units QHS SC Last administered on 01/12/19 22:28; Admin Dose 30 UNITS; Start 01/12/19 at 21:00 Lactulose (Enulose) 20 gm QHS PO Last administered on 01/12/19 21:35; Admin Dose 20 GM; Start 01/12/19 at 21:00 Pantoprazole (Protonix Tab) 40 mg BID PO Last administered on 01/13/19 08:10; Admin Dose 40 MG; Start 01/12/19 at 21:00 Propranolol HCl (Inderal) 10 mg TID PO Last administered on 01/12/19 21:35; Admin Dose 10 MG; Start 01/12/19 at 21:00 Sucralfate (Carafate Susp) 1 gm TID PO Last administered on 01/13/19 08:10; Admin Dose 1 GM; Start 01/12/19 at 21:00 Miscellaneous Information 1 ea NOTE XX ; Start 01/12/19 at 21:00 Glucose (Glutose) 15 gm Q15M PRN PO DECREASED GLUCOSE; Start 01/12/19 at 21:00 Glucose (Glutose) 22.5 gm Q15M PRN PO DECREASED GLUCOSE; Start 01/12/19 at 21:00 Dextrose (D50w Syringe) 25 ml Q15M PRN IV DECREASED GLUCOSE; Start 01/12/19 at 21:00 Dextrose (D50w Syringe) 50 ml Q15M PRN IV DECREASED GLUCOSE; Start 01/12/19 at 21:00 Glucagon (Glucagen) 1 mg Q15M PRN IM DECREASED GLUCOSE; Start 01/12/19 at 21:00 Glucose (Glutose) 15 gm Q15M PRN BUCCAL DECREASED GLUCOSE; Start 01/12/19 at 21:00 Diagnostic Test (Pha) (Accu-Chek) 1 ea 02 XX Last administered on 01/13/19at 02:38; Admin Dose 1 EA; Start 01/13/19 at 02:00 Insulin Aspart (Novolog Insulin Pen) NOVOLOG *MILD* ALGORITHM WITH MEALS BEDTIME SC Last administered on 01/13/19at 08:23; Admin Dose 1 UNIT; Start 01/13/19 at 07:55 Allergies: Coded Allergies: ceftriaxone (Unverified Allergy, Intermediate, RASH, 01/12/19) per Mess notes 02/02/17 - rash with rocephin Social History Smoking Status: Never smoker Exam/Review of Systems Vital Signs Vitals Vital Signs Date Temp Pulse Resp B/P (MAP) Pulse Ox O2 O2 Flow FiO2 Time Delivery Rate 01/13/19 98.8 62 18 134/68 97 Room Air 07:25 (90) Intake and Output 01/12/19 01/12/19 01/13/19 1515:00 23:00 07:00 IntakeIntake Total 120 ml BalanceBalance 120 ml Exam Constitutional: alert, oriented, well developed Psych: no complaints Head: normocephalic, atraumatic Eyes: EOMI Neck: supple Respiratory: clear to auscultation Cardiovascular: regular rate and rhythm, nl pulses Gastrointestinal: soft, nl liver, spleen Musculoskeletal: nl extremities to inspection Extremities: normal pulses, edema (no edema.. fxn AVF in his RUE) Labs Result Diagram: 01/13/19 0600 01/13/19 0600 Results 24hrs Laboratory Tests Test 01/12/19 11:56 01/12/19 22:23 01/13/19 02:35 01/13/19 06:00 White Blood Count 6.6 # 7.6 Red Blood Count 3.20 L 3.26 L Hemoglobin 10.1 L 10.0 L Hematocrit 32.2 L 32.5 L Mean Corpuscular Volume 100.6 99.7 Mean Corpuscular 31.6 30.7 Hemoglobin Mean Corpuscular 31.4 L 30.8 L Hemoglobin Concent Red Cell Distribution 18.4 H 18.0 H Width Platelet Count 73 #L 107 #L Mean Platelet Volume 12.3 H 12.2 H Immature Granulocytes % 0.800 H 0.300 Neutrophils % 70.2 72.0 Segmented Neutrophils 74 % (Manual) Lymphocytes % 15.2 13.4 L Lymphocytes % (Manual) 17 Monocytes % 9.7 9.4 Monocytes % (Manual) 3 Eosinophils % 3.6 4.5 Eosinophils % (Manual) 6 Basophils % 0.5 0.4 Nucleated Red Blood 0.0 0.0 Cells % Immature Granulocytes # 0.050 H 0.020 Neutrophils # 4.6 5.5 Lymphocytes (Manual) 1.1 Lymphocytes # 1.0 1.0 Monocytes # 0.6 0.7 Monocytes # (Manual) 0.1 L Eosinophils # 0.2 0.3 Basophils # 0.0 0.0 Nucleated Red Blood 0.0 0.0 Cells # Platelet Estimate DECREASED Polychromasia 1+ Poikilocytosis 1+ Anisocytosis 1+ Microcytosis 1+ Macrocytosis 1+ Spherocytes 1+ Prothrombin Time 13.8 Prothrombin Time Ratio 1.1 INR International 1.05 Normalized Ratio Activated 36.0 H Partial Thromboplast Time Sodium Level 135 139 Potassium Level 4.4 4.8 Chloride Level 96 L 97 Carbon Dioxide Level 28 30 Anion Gap 11 12 Blood Urea Nitrogen 53 H 60 H Creatinine 5.90 H 6.90 H Est Glomerular Filtrat 10 L 8 L Rate mL/min Glucose Level 289 H 150 # Calcium Level 8.2 L 8.5 Total Bilirubin 1.2 1.3 Direct Bilirubin 0.00 0.00 Indirect Bilirubin 1.2 H 1.3 H Aspartate Amino 76 H 90 H Transf (AST/SGOT) Alanine 33 21 Aminotransferase (ALT/SG PT) Alkaline Phosphatase 182 H 133 H Troponin I 0.024 Total Protein 8.3 H 8.7 H Albumin 3.7 3.9 Globulin 4.60 H 4.80 H Albumin/Globulin Ratio 0.80 0.81 Bedside Glucose 246 H 173 Test 01/13/19 07:58 Bedside Glucose 144 Medications Medications Current Medications Ondansetron HCl (Zofran Inj) 4 mg ER BRIDGE PRN IV NAUSEA/VOMITING; Start 01/12/19 at 12:30; Stop 01/13/19 at 12:29 Acetaminophen (Tylenol Tab) 650 mg ER BRIDGE PRN PO .MILD PAIN 1-3 OR TEMP; Start 01/12/19 at 12:30; Stop 01/13/19 at 12:29 IV Flush (NS 3 ml) 3 ml PER PROTOCOL IV ; Start 01/12/19 at 20:30 Ondansetron HCl (Zofran Inj) 4 mg Q6H PRN IV NAUSEA/VOMITING; Start 01/12/19 at 20:30 Acetaminophen (Tylenol Tab) 650 mg Q6H PRN PO .PAIN 1-3 OR TEMP; Start 01/12/19 at 20:30 Cholecalciferol (Vitamin D) 2,000 unit DAILY PO Last administered on 01/13/19 08:11; Admin Dose 2,000 UNIT; Start 01/13/19 at 09:00 Escitalopram Oxalate (Lexapro) 10 mg QHS PO Last administered on 01/12/19 21:35; Admin Dose 10 MG; Start 01/12/19 at 21:00 Insulin Glargine (Lantus) 30 units QHS SC Last administered on 01/12/19 22:28; Admin Dose 30 UNITS; Start 01/12/19 at 21:00 Lactulose (Enulose) 20 gm QHS PO Last administered on 01/12/19 21:35; Admin Dose 20 GM; Start 01/12/19 at 21:00 Pantoprazole (Protonix Tab) 40 mg BID PO Last administered on 01/13/19 08:10; Admin Dose 40 MG; Start 01/12/19 at 21:00 Propranolol HCl (Inderal) 10 mg TID PO Last administered on 01/12/19 21:35; Admin Dose 10 MG; Start 01/12/19 at 21:00 Sucralfate (Carafate Susp) 1 gm TID PO Last administered on 01/13/19 08:10; Admin Dose 1 GM; Start 01/12/19 at 21:00 Miscellaneous Information 1 ea NOTE XX ; Start 01/12/19 at 21:00 Glucose (Glutose) 15 gm Q15M PRN PO DECREASED GLUCOSE; Start 01/12/19 at 21:00 Glucose (Glutose) 22.5 gm Q15M PRN PO DECREASED GLUCOSE; Start 01/12/19 at 21:00 Dextrose (D50w Syringe) 25 ml Q15M PRN IV DECREASED GLUCOSE; Start 01/12/19 at 21:00 Dextrose (D50w Syringe) 50 ml Q15M PRN IV DECREASED GLUCOSE; Start 01/12/19 at 21:00 Glucagon (Glucagen) 1 mg Q15M PRN IM DECREASED GLUCOSE; Start 01/12/19 at 21:00 Glucose (Glutose) 15 gm Q15M PRN BUCCAL DECREASED GLUCOSE; Start 01/12/19 at 21:00 Diagnostic Test (Pha) (Accu-Chek) 1 ea 02 XX Last administered on 01/13/19at 02:38; Admin Dose 1 EA; Start 01/13/19 at 02:00 Insulin Aspart (Novolog Insulin Pen) NOVOLOG *MILD* ALGORITHM WITH MEALS BEDTIM E SC Last administered on 01/13/19at 08:23; Admin Dose 1 UNIT; Start 01/13/19 at 07:55 NORRIS JOE MD Jan 13, 2019 10:18
--- NOTE | 2019-01-13 14:23 | CONS ---
Assessment/Plan Assessment/Plan Assessment/Plan (Daily) IMPRESSION: 1. Rectal bleeding, most probably from the hemorrhoids. His last endoscopy was on 12/24/2017. He had no esophageal varicose vein and no gastric varicose vein also identified. 2. Renal failure on dialysis. 3. Cirrhosis of liver. 4. History of hepatitis C. 5. Anemia. 6. Thrombocytopenia. Plan Patient is no further bleeding and hematocrit is remained stable. I looked at my endoscopy report which was done last year colonoscopy was negative except for a large hemorrhoid and rectal varicose vein. Given fresh bleeding most probably it is from hemorrhoids and the bleeding has stopped now. Discussed with the patient and he opted for conservative management. Will defer to a colonoscopy unless he rebleeds Consultation Date/Type/Reason Admit Date/Time Jan 12, 2019 at 12:28 Initial Consult Date Date/Time of Note DATE: 01/13/19 TIME: 14:22 24 HR Interval Summary Free Text/Dictation Patient has no further bleeding No abdominal pain no nausea no vomiting Constitutional: no complaints, improved Exam/Review of Systems Exam Vitals Vital Signs Date Temp Pulse Resp B/P (MAP) Pulse Ox O2 O2 Flow FiO2 Time Delivery Rate 01/13/19 98.2 60 18 141/68 95 Room Air 11:21 (92) Intake and Output 01/12/19 01/12/19 01/13/19 1414:59 22:59 06:59 IntakeIntake Total 120 ml BalanceBalance 120 ml Constitutional: alert, oriented, well developed Psych: no complaints, nl mood/affect Head: normocephalic, atraumatic Eyes: nl conjunctiva, EOMI, nl lids, nl sclera, PERRL ENMT: nl external ears & nose, nl lips & teeth, nl nasal mucosa & septum Neck: supple, non-tender Respiratory: clear to auscultation, normal air movement Cardiovascular: regular rate and rhythm, nl pulses Gastrointestinal: soft, nl liver, spleen, non-tender Musculoskeletal: nl extremities to inspection, nl gait and stance Extremities: normal pulses 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, nl mental status, nl speech, nl strength Skin: nl turgor; No rash or lesions Lymph: nl lymph nodes Results Result Diagram: 01/13/19 0600 01/13/19 0600 Results 24hrs Laboratory Tests Test 01/12/19 22:23 01/13/19 02:35 01/13/19 06:00 01/13/19 07:58 Bedside Glucose 246 H 173 144 White Blood Count 7.6 Red Blood Count 3.26 L Hemoglobin 10.0 L Hematocrit 32.5 L Mean Corpuscular Volume 99.7 Mean Corpuscular 30.7 Hemoglobin Mean Corpuscular 30.8 L Hemoglobin Concent Red Cell Distribution 18.0 H Width Platelet Count 107 #L Mean Platelet Volume 12.2 H Immature Granulocytes % 0.300 Neutrophils % 72.0 Lymphocytes % 13.4 L Monocytes % 9.4 Eosinophils % 4.5 Basophils % 0.4 Nucleated Red Blood 0.0 Cells % Immature Granulocytes # 0.020 Neutrophils # 5.5 Lymphocytes # 1.0 Monocytes # 0.7 Eosinophils # 0.3 Basophils # 0.0 Nucleated Red Blood 0.0 Cells # Sodium Level 139 Potassium Level 4.8 Chloride Level 97 Carbon Dioxide Level 30 Anion Gap 12 Blood Urea Nitrogen 60 H Creatinine 6.90 H Est Glomerular Filtrat 8 L Rate mL/min Glucose Level 150 # Calcium Level 8.5 Total Bilirubin 1.3 Direct Bilirubin 0.00 Indirect Bilirubin 1.3 H Aspartate Amino 90 H Transf (AST/SGOT) Alanine 21 Aminotransferase (ALT/SG PT) Alkaline Phosphatase 133 H Total Protein 8.7 H Albumin 3.9 Globulin 4.80 H Albumin/Globulin Ratio 0.81 Test 01/13/19 12:00 Bedside Glucose 230 H Medications Medication Current Medications IV Flush (NS 3 ml) 3 ml PER PROTOCOL IV ; Start 01/12/19 at 20:30 Ondansetron HCl (Zofran Inj) 4 mg Q6H PRN IV NAUSEA/VOMITING; Start 01/12/19 at 20:30 Acetaminophen (Tylenol Tab) 650 mg Q6H PRN PO .PAIN 1-3 OR TEMP; Start 01/12/19 at 20:30 Cholecalciferol (Vitamin D) 2,000 unit DAILY PO Last administered on 01/13/19at 08:11; Admin Dose 2,000 UNIT; Start 01/13/19 at 09:00 Escitalopram Oxalate (Lexapro) 10 mg QHS PO Last administered on 01/12/19at 21:35; Admin Dose 10 MG; Start 01/12/19 at 21:00 Insulin Glargine (Lantus) 30 units QHS SC Last administered on 01/12/19at 22:28; Admin Dose 30 UNITS; Start 01/12/19 at 21:00 Lactulose (Enulose) 20 gm QHS PO Last administered on 01/12/19at 21:35; Admin Dose 20 GM; Start 01/12/19 at 21:00 Pantoprazole (Protonix Tab) 40 mg BID PO Last administered on 01/13/19at 08:10; Admin Dose 40 MG; Start 01/12/19 at 21:00 Propranolol HCl (Inderal) 10 mg TID PO Last administered on 01/12/19at 21:35; Admin Dose 10 MG; Start 01/12/19 at 21:00 Sucralfate (Carafate Susp) 1 gm TID PO Last administered on 01/13/19at 12:55; Admin Dose 1 GM; Start 01/12/19 at 21:00 Miscellaneous Information 1 ea NOTE XX ; Start 01/12/19 at 21:00 Glucose (Glutose) 15 gm Q15M PRN PO DECREASED GLUCOSE; Start 01/12/19 at 21:00 Glucose (Glutose) 22.5 gm Q15M PRN PO DECREASED GLUCOSE; Start 01/12/19 at 21:00 Dextrose (D50w Syringe) 25 ml Q15M PRN IV DECREASED GLUCOSE; Start 01/12/19 at 21:00 Dextrose (D50w Syringe) 50 ml Q15M PRN IV DECREASED GLUCOSE; Start 01/12/19 at 21:00 Glucagon (Glucagen) 1 mg Q15M PRN IM DECREASED GLUCOSE; Start 01/12/19 at 21:00 Glucose (Glutose) 15 gm Q15M PRN BUCCAL DECREASED GLUCOSE; Start 01/12/19 at 21:00 Diagnostic Test (Pha) (Accu-Chek) 1 ea 02 XX Last administered on 01/13/19at 02:38; Admin Dose 1 EA; Start 01/13/19 at 02:00 Insulin Aspart (Novolog Insulin Pen) NOVOLOG *MILD* ALGORITHM WITH MEALS BEDTIME SC Last administered on 01/13/19at 12:06; Admin Dose 3 UNIT; Start 01/13/19 at 07:55 STUART STANLEY MD Jan 13, 2019 14:23
--- NOTE | 2019-01-13 18:52 | DS ---
DATE OF ADMISSION: 01/12/2019 DATE OF DISCHARGE: 01/13/2019 FINAL DIAGNOSES: 1. Rectal bleeding likely from hemorrhoids with no significant drop in hematocrit. 2. Chronic renal failure, on hemodialysis. 3. Thrombocytopenia, chronic. 4. Cirrhosis with portal hypertension. 5. Diabetes mellitus type 2. 6. Obesity. HOSPITAL COURSE: The patient is a 63-year-old gentleman with end-stage renal failure on hemodialysis , presenting with weakness and bright red bleeding per rectum. The patient has a prior history of he morrhoids. He has also had prior history of esophageal varices and prior history of GI bleeds. PHYSICAL EXAMINATION: GENERAL: The patient is to be in no acute distress. ABDOMEN: Soft, nontender. EXTREMITIES: Trace edema. LABORATORY DATA: Platelet count of 70,000, hematocrit 32.2. The patient was observed, was hemodialyzed. After evaluation by Dr. Felix, the patient was seen by Dr. Cosme. It was felt that the bleeding was from hemorrhoids. Hemoglobin was 10, hematocrit 32. 5 the following day. It was felt the patient was stable from medical standpoint to be discharged. I ncidental finding on the chest x-ray, there was a 1 cm nodule in the left mid lung zone. I will foll ow up with chest x-rays and also CT scan as outpatient. Dictated By: JENY MORA MD, SR/PEG Conf#: [id number] DID#: [id number]
[2019-01-13] MEDS: LACTULOSE 30ML CUP PO SCH (20:36)
[2019-01-13] MEDS: ESCITALOPRAM 10 MG TAB PO SCH (20:36)
[2019-01-13] MEDS: INSULIN GLARGINE [LANTus] (100 UNITS/ML) SYG SC SCH (21:32)
== END 2019-01-13 21:05 | disposition home or self-care (01) | DRG 393 ==
LOC: E/R 10:59 → TEL 12:28 → EDBEDREQ 17:42
PROVIDERS: ADMIT Internal Medicine; ATTEND Internal Medicine
DX: K64.9 Unspecified hemorrhoids (principal); N18.6 End stage renal disease; K76.6 Portal hypertension; K62.5 Hemorrhage of anus and rectum; D63.1 Anemia in chronic kidney disease; B18.2 Chronic viral hepatitis C; D69.6 Thrombocytopenia, unspecified; K74.60 Unspecified cirrhosis of liver; E11.22 Type 2 diabetes mellitus with diabetic chronic kidney disease; E66.9 Obesity, unspecified; Z99.2 Dependence on renal dialysis; Z87.891 Personal history of nicotine dependence
CPT/HCPCS: 36415; 71045; 80053; 82962; 84484; 85025; 85610; 85730; 86850; 86900; 86901; 90935; 93005; 96374; 96375; J1815; J2354; J2405